=== PATIENT | female | born 1970 | race Hispanic/Latino ===

== ENCOUNTER 2016-07-16 20:53 | Inpatient (IN) | payer MEDICAID ==
[2016-07-16] MEDS ORDERED: Albuterol-Ipratrop 3 mg / 0.5 (3 ml) UD ONE (21:03)
--- NOTE | 2016-07-16 21:05 | ED PDOC ---
Arrival/HPI - General Time Seen by Provider: 07/16/16 20:56 Historian: Patient - History of Present Illness Narrative History of Present Illness (Text): 07/16/16 21:05 Fani Chambers is a 45 year old female, whose past medical history includes asthma and polysubstance abuse, who presents to the ED complaining of progressively worsening shortness of breath since this afternoon. Patient denies any fever, chills, chest pain, nausea, vomiting, diarrhea, urinary symptoms, back pain, neck pain, headache, dizziness, or any other complaints. Time/Duration: Other (today) Symptom Onset: Gradual Symptom Course: Unchanged Activities at Onset: Rest, Light Context: Home Past Medical History - Provider Review Nursing Documentation Reviewed: Yes - Infectious Disease Hx of Infectious Diseases: None - Tetanus Immunization Tetanus Immunization: Unknown - Cardiac Hx Hypertension: Yes - Pulmonary Hx Chronic Obstructive Pulmonary Disease (COPD): Yes - Neurological Hx Neurological Disorder: No - HEENT Hx HEENT Disorder: No - Renal Hx Renal Disorder: No - Endocrine/Metabolic Hx Endocrine Disorders: No - Hematological/Oncological Hx Hepatitis C: Yes - Integumentary Hx Cellulitis: Yes - Musculoskeletal/Rheumatological Hx Falls: Yes - Gastrointestinal Hx Gastrointestinal Disorders: No - Genitourinary/Gynecological Hx Genitourinary Disorders: No - Psychiatric Hx Psychophysiologic Disorder: No Hx Substance Use: Yes - Surgical History Hx Appendectomy: Yes Hx Tonsillectomy: Yes Other/Comment: As per patient, she has had "lung surgery". - Anesthesia Hx Anesthesia: Yes Hx Anesthesia Reactions: No Hx Malignant Hyperthermia: No - Suicidal Assessment Feels Threatened In Home Enviroment: No Family/Social History - Physician Review Nursing Documentation Reviewed: Yes Family/Social History: No Known Family HX Smoking Status: Heavy Smoker > 10 Cigarettes Daily Hx Alcohol Use: Yes Hx Substance Use: Yes Substance used: HEROINE Hx Substance Use Treatment: Yes Allergies/Home Meds Allergies/Adverse Reactions: Allergies No Known Allergies Allergy (Verified 07/16/16 21:05) Home Medications: Home Meds Medication Instructions Recorded Confirmed No Known Home Med 07/16/16 07/16/16 Review of Systems - Physician Review All systems were reviewed & negative as marked: Yes - Review of Systems Constitutional: Normal. absent: Fevers Eyes: Normal ENT: Normal Respiratory: SOB. absent: Cough Cardiovascular: Normal. absent: Chest Pain Gastrointestinal: Normal. absent: Abdominal Pain, Diarrhea, Nausea, Vomiting Genitourinary Female: Normal. absent: Dysuria, Frequency, Hematuria, Urine Output Changes Musculoskeletal: Normal. absent: Back Pain, Neck Pain Skin: Normal. absent: Rash Neurological: Normal. absent: Headache, Dizziness Endocrine: Normal Hemo/Lymphatic: Normal Psychiatric: Normal Physical Exam Vital Signs Reviewed: Yes Vital Signs Temp Pulse Resp BP Pulse Ox 07/17/16 01:18 98.2 F 80 20 126/70 97 07/16/16 22:03 98 F 78 128/70 99 07/16/16 21:24 26 H 07/16/16 21:23 98 F 84 26 H 138/64 99 07/16/16 21:20 84 24 134/67 100 Temperature: Afebrile Blood Pressure: Normal Pulse: Regular Respiratory Rate: Normal Appearance: Positive for: Well-Appearing, Non-Toxic, Comfortable Pain Distress: None Mental Status: Positive for: Alert and Oriented X 3 - Systems Exam Head: Present: Atraumatic, Normocephalic Pupils: Present: PERRL Extroacular Muscles: Present: EOMI Conjunctiva: Present: Normal Mouth: Present: Moist Mucous Membranes Neck: Present: Normal Range of Motion Respiratory/Chest: Present: Wheezes. No: Respiratory Distress, Accessory Muscle Use Cardiovascular: Present: Regular Rate and Rhythm, Normal S1, S2. No: Murmurs Abdomen: Present: Normal Bowel Sounds. No: Tenderness, Distention, Peritoneal Signs Back: Present: Normal Inspection Upper Extremity: Present: Normal Inspection. No: Cyanosis, Edema Lower Extremity: Present: Normal Inspection. No: Edema Neurological: Present: GCS=15, CN II-XII Intact, Speech Normal Skin: Present: Warm, Dry, Normal Color. No: Rashes Psychiatric: Present: Alert, Oriented x 3, Normal Insight, Normal Concentration Medical Decision Making ED Course and Treatment: 07/16/16 21:05 Impression: 45 year old female complaining of shortness of breath since this afternoon. Differential Diagnosis include but are not limited to: asthma exacerbation vs. pneumonia vs. ACS vs. dyspnea Plan: -- EKG -- Labs, cardiac enzymes -- Duoneb -- Solu-medrol -- Reassess and disposition Prior Visits: Notes and results from previous visits were reviewed. On 06/11/2016, pt was seen in the ED for shortness of breath and wheezing. Pt was admitted to the hospital for further evaluation. Progress Notes: 07/16/16 21:40 Reviewed EKG, NSR at 82 bpm. Non-specific T wave changes. 07/16/16 23:45 Pt still wheezing after multiple nebulizer treatments. Paged medical social consultant. 07/16/16 23:47 Case discussed with medical social consultant, who is aware and agrees with plan. 07/16/16 23:[address] Cardoso, who is aware and agrees with plan. Accepts pt in to hospitalist service. Pt will go to Telemetry observation for asthma exacerbation. Pt is no acute distress. Discussed results and hospital observation plan with pt , who is aware and verbalizes understanding. - Lab Interpretations Lab Results: 07/16/16 21:12 07/16/16 21:12 Lab Results 07/16/16 21:12: WBC 10.1 D, RBC 4.11, Hgb 14.9, Hct 42.2, MCV 102.7, MCH 36.3 H , MCHC 35.3, RDW 13.5, Plt Count 307, MPV 9.8, Gran % 52.1, Lymph % (Auto) 37.0 H, Nelson % (Auto) 9.5 H, Eos % (Auto) 1.2 L, Baso % (Auto) 0.2, Gran # 5.26, Lymph # 3.7 H, Nelson # 1.0 H, Eos # 0.1, Baso # 0.02, Sodium 139, Potassium 3.0 L , Chloride 98, Carbon Dioxide 30, Anion Gap 14, BUN 4 L, Creatinine 0.5, Est GFR ( Amer) > 60, Est GFR (Non-Af Amer) > 60, Random Glucose 94, Calcium 8.3 L, Total Bilirubin 0.7, AST 58 H, ALT 51, Alkaline Phosphatase 64, Lactate Dehydrogenase 598, Total Creatine Kinase 64, Troponin I < 0.01, Total Protein 6.7, Albumin 3.5, Globulin 3.2, Albumin/Globulin Ratio 1.1 I have reviewed the lab results: Yes - RAD Interpretation Radiology Orders: 07/17/16 00:15 CHEST PORTABLE [RAD] Stat - Medication Orders Current Medication Orders: Chlordiazepoxide (Librium) 25 mg PO Q8 JACK PRN Reason: Protocol Last Admin: 07/17/16 14:11 Dose: 25 MG Behavioural Document 07/17/16 14:11 (Rec: 07/17/16 14:11 [id number] [id number]) Maintenance Maintenance Dose Yes Nonmedicinal Nonmedicinal Interventions Redirect Re-Assess: Reassess Psych Meds Document 07/17/16 15:11 (Rec: 07/17/16 17:42 [id number]) Reassess Psych Med Effective Folic Acid (Folic Acid) 1 mg IM DAILY JACK Last Admin: 07/17/16 10:37 Dose: Guaifenesin (Robitussin) 100 mg PO Q4H PRN PRN Reason: Cough Azithromycin 250 mg/ Sodium (Chloride) 250 mls @ 167 mls/hr IVPB DAILY JACK PRN Reason: Protocol Last Admin: 07/17/16 09:59 Dose: 167 MLS/HR eMAR Start Stop Document 07/17/16 09:59 (Rec: 07/17/16 09:59 [email or web address] [id number]) Intravenous Solution Start Date 07/17/16 Start Time 09:59 Folic Acid 1 mg/ Thiamine HCl 100 mg/ Multivitamins/Vitamin C 10 ml/ Dextrose 1 ,011.2 mls @ 100 mls/hr IV .Q10H7M JACK Last Admin: 07/17/16 10:34 Dose: 100 MLS/HR eMAR Start Stop Document 07/17/16 10:34 (Rec: 07/17/16 10:34 [email or web address] [id number]) Intravenous Solution Start Date 07/17/16 Start Time 10:34 Lorazepam (Ativan) 2 mg IVP Q6H PRN; Protocol PRN Reason: Anxiety Last Admin: 07/17/16 11:10 Dose: 2 MG Behavioural Document 07/17/16 11:10 (Rec: 07/17/16 11:10 [email or web address] [id number]) Maintenance Maintenance Dose Yes Nonmedicinal Nonmedicinal Interventions Redirect IVP Administration Document 07/17/16 11:10 (Rec: 07/17/16 11:10 [email or web address] [id number]) Charges for Administration # of IVP Administrations 1 Re-Assess: Reassess Psych Meds Document 07/17/16 11:40 (Rec: 07/17/16 13:21 [id number]) Reassess Psych Med Effective Methylprednisolone (Solu-Medrol) 40 mg IVP Q8 [facility] Last Admin: 07/17/16 14:11 Dose: 40 MG IVP Administration Document 07/17/16 14:11 (Rec: 07/17/16 14:11 [facility] [id number][place] Charges for Administration # of IVP Administrations 1 Multivitamins (Thera Tab) 1 tab PO DAILY [facility] Last Admin: 07/17/16 10:03 Dose: 1 TAB Pantoprazole Sodium (Protonix Inj) 40 mg IVP DAILY [facility] Last Admin: 07/17/16 10:03 Dose: 40 MG IVP Administration Document 07/17/16 10:03 (Rec: 07/17/16 10:03 [facility] [id number][place] Charges for Administration # of IVP Administrations 1 Thiamine HCl (Vitamin B1 Tab) 50 mg PO DAILY [facility] Last Admin: 07/17/16 10:37 Dose: 50 MG Discontinued Medications Albuterol/Ipratropium (Duoneb 3 Mg/0.5 Mg (3 Ml) Ud) Confirm Administered Dose 9 ml .ROUTE .STK-MED ONE Stop: 07/16/16 21:04 Last Admin: 07/16/16 21:21 Dose: 9 ML Albuterol/Ipratropium (Duoneb 3 Mg/0.5 Mg (3 Ml) Ud) 3 ml IH Q15M [facility] Last Admin: 07/16/16 22:02 Dose: 3 ML Albuterol/Ipratropium (Duoneb 3 Mg/0.5 Mg (3 Ml) Ud) 3 ml IH Q4 JACK Stop: 07/17/16 12:01 Last Admin: 07/17/16 11:29 Dose: 3 ML Albuterol/Ipratropium (Duoneb 3 Mg/0.5 Mg (3 Ml) Ud) 3 ml IH Q2 PRN PRN Reason: Shortness of Breath Stop: 07/17/16 06:01 Albuterol/Ipratropium (Duoneb 3 Mg/0.5 Mg (3 Ml) Ud) 3 ml IH [id number] [facility] Stop: 07/17/16 19:31 Last Admin: 07/17/16 15:24 Dose: Not Given Non-Admin Reason: Patient Refused Chlordiazepoxide (Librium) 25 mg PO BID JACK PRN Reason: Protocol Methylprednisolone (Solu-Medrol) 125 mg IVP ONCE ONE Stop: 07/16/16 21:17 Last Admin: 07/16/16 21:34 Dose: 125 MG IVP Administration Document 07/16/16 21:34 KENZIE (Rec: 07/16/16 21:34 [id number] [id number]) Charges for Administration # of IVP Administrations 1 Potassium Chloride (K-Dur 20 Meq Er Tab) 40 meq PO STAT STA Stop: 07/17/16 00:14 Last Admin: 07/17/16 00:22 Dose: 40 MEQ - Scribe Statement The provider has reviewed the documentation as recorded by the Jc Rosales Provider Attestation: All medical record entries made by the Jc were at my direction and personally dictated by me. I have reviewed the chart and agree that the record accurately reflects my personal performance of the history, physical exam, medical decision making, and the department course for this patient. I have also personally directed, reviewed, and agree with the discharge instructions and disposition. Disposition/Present on Arrival - Present on Arrival Any Indicators Present on Arrival: No History of DVT/PE: No History of Uncontrolled Diabetes: No Urinary Catheter: No History Surgical Site Infection Following: None - Disposition Have Diagnosis and Disposition been Completed?: Yes Diagnosis: Chronic obstructive lung disease Disposition: HOSPITALIZED Disposition Time: 23:25 Patient Problems: Current Active Problems Problem Status Diagnosed Cirrhosis and chronic liver disease Active Elevated blood pressure reading without diagnosis of hypertension Active Chronic hepatitis C Acute Smoker Chronic Asthmatic bronchitis Resolved Condition: GOOD
[2016-07-16 21:24] LABS: ADD MANUAL DIFF? NO
[2016-07-16 21:32] LABS: BASO # 0.02 K/mm3 (0.0-2.0); BASO % 0.2 % (0.0-3.0); EOS # 0.1 (0.0-0.7); EOS % 1.2 % (1.5-5.0); GRAN # 5.26 (1.4-6.5); GRAN % 52.1 % (50.0-68.0); HEMATOCRIT 42.2 % (36.0-48.0); LYMPH # 3.7 (1.2-3.4); MEAN CELL VOLUME 102.7 fL (80.0-105.0); MEAN CORPUSCULAR HEMOGLOBIN 36.3 pg (25.0-35.0); MEAN CORPUSCULAR HGB CONC 35.3 g/dl (31.0-37.0); MEAN PLATELET VOLUME 9.8 fl (7.0-11.0); MONO % 9.5 % (1.0-6.0); PLATELET COUNT 307 10^3/uL (120.0-450.0); RED CELL DISTRIBUTION WIDTH 13.5 % (11.5-14.5); WHITE BLOOD COUNT 10.1 10^3/ul (4.5-11.0)
[2016-07-16] MEDS: Albuterol-Ipratrop 3 mg / 0.5 (3 ml) UD IH SCH ×2 (21:33→22:02)
[2016-07-16 21:36] LABS: ALB/GLOB RATIO 1.1 (1.1-1.8); ALKALINE PHOSPHATASE 64 U/L (38-133); ALT/SGPT 51 U/L (7-56); AST/SGOT 58 U/L (15-39); BILIRUBIN,TOTAL 0.7 mg/dL (0.2-1.3); BLOOD UREA NITROGEN 4 mg/dL (7-21); CALCIUM 8.3 mg/dL (8.4-10.5); CARBON DIOXIDE 30 mmol/L (21-33); CHLORIDE 98 mmol/L (98-107); GFR AFRICAN-AMERICAN > 60; GLUCOSE,RANDOM 94 mg/dL (70-110); SODIUM 139 mmol/L (132-148); TOTAL PROTEIN 6.7 g/dL (5.8-8.3)
[2016-07-16 21:50] LABS: TROPONIN I < 0.01 ng/mL
[2016-07-17] MEDS ORDERED: Potassium Chloride 20 mEq ER Tab PO STA (00:13)
[2016-07-17 00:33] LABS: VENOUS BLOOD GAS BASE EXCESS 4.9 mmol/L (0.0-2.0); VENOUS BLOOD PH 7.38 (7.32-7.43)
[2016-07-17] MEDS ORDERED: Albuterol-Ipratrop 3 mg / 0.5 (3 ml) UD IH PRN (00:39)
--- NOTE | 2016-07-17 00:48 | CP.PCM.HP ---
<Tony Sales - Last Filed: 07/17/16 00:43> History of Present Illness - History of Present Illness History of Present Illness: This is a 45 yo female with past medical hx of asthma and substance abuse, recently admitted May 2016, presenting with sob x 2 days. Pt states this is her asthma acting up. SOB occurs at rest and with exertion. She can only walk 1/2 block before feeling sob. She has had multiple hospitalizations for asthma in the past year. Denies ever being intubated. She was diagnosed with asthma 16 yrs ago. She also reports cough with white phlegm for 1 week. She denies fevers and chills. She admits chest tightness and reports some swelling in legs. She does not know any triggers for her asthma. Denies recent travel and sick contacts. Denies vomiting, diarrhea, syncope, any other sx. SOB getting worse, she only uses ventolin inhaler. Has been using it constantly throughout the day. She does not see a doctor for asthma. PMH: Asthma, substance abuse, alcoholism PSH: Lung sx, appendectomy, tonsillectomy Allergies: NKDA Home meds: ventolin inhaler FH: DM, lung cancer, heart disease in family Social hx: Current smoker. 1 ppd for 17 yrs. Drinks all day, every day. Drinks 4 [place]. Uses heroin, last use yesterday 1 pack. Past hx of cocaine use. Homeless. Present on Admission - Present on Admission Any Indicators Present on Admission: No History of DVT/PE: No History of Uncontrolled Diabetes: No Urinary Catheter: No Decubitus Ulcer Present: No Review of Systems - Review of Systems All systems: reviewed and no additional remarkable complaints except Review of Systems: Negative except as stated in HPI. Past Patient History - Infectious Disease Hx of Infectious Diseases: None - Tetanus Immunizations Tetanus Immunization: Unknown - Past Medical History & Family History Past Medical History?: Yes Pertinent Family History: Heart disease, lung cancer, dm - Past Social History Smoking Status: Heavy Smoker > 10 Cigarettes Daily Chewing Tobacco Use: No Cigar Use: No Alcohol: > 2 Drinks/Day Drugs: Opiates Home Situation {Lives}: Homeless Domestic Violence: Negative - CARDIAC Hx Hypertension: Yes - PULMONARY Hx Chronic Obstructive Pulmonary Disease (COPD): Yes - NEUROLOGICAL Hx Neurological Disorder: No - HEENT Hx HEENT Problems: No - RENAL Hx Chronic Kidney Disease: No - ENDOCRINE/METABOLIC Hx Endocrine Disorders: No - HEMATOLOGICAL/ONCOLOGICAL Hx Hepatitis C: Yes - INTEGUMENTARY Hx Cellulitis: Yes - MUSCULOSKELETAL/RHEUMATOLOGICAL Hx Falls: Yes - GASTROINTESTINAL Hx Gastrointestinal Disorders: No - GENITOURINARY/GYNECOLOGICAL Hx Genitourinary Disorders: No - PSYCHIATRIC Hx Psychophysiologic Disorder: No Hx Substance Use: Yes - SURGICAL HISTORY Hx Appendectomy: Yes Hx Tonsillectomy: Yes Other/Comment: As per patient, she has had "lung surgery". - ANESTHESIA Hx Anesthesia: Yes Hx Anesthesia Reactions: No Hx Malignant Hyperthermia: No Meds Allergies/Adverse Reactions: Allergies Allergy/AdvReac Type Severity Reaction Status Date / Time No Known Allergies Allergy Verified 07/16/16 21:05 Physical Exam - Constitutional Appears: Non-toxic, No Acute Distress - Head Exam Head Exam: ATRAUMATIC, NORMAL INSPECTION, NORMOCEPHALIC - Eye Exam Eye Exam: EOMI - ENT Exam ENT Exam: Mucous Membranes Moist - Neck Exam Neck exam: Positive for: Normal Inspection - Respiratory Exam Respiratory Exam: Wheezes. absent: Accessory Muscle Use, Clear to Auscultation Bilateral, NORMAL BREATHING PATTERN - Cardiovascular Exam Cardiovascular Exam: REGULAR RHYTHM - GI/Abdominal Exam GI & Abdominal Exam: Normal Bowel Sounds, Soft. absent: Tenderness - Extremities Exam Additional comments: Some minimal swelling in legs B/L - Back Exam Back exam: NORMAL INSPECTION - Neurological Exam Neurological exam: Alert, Oriented x3 - Psychiatric Exam Psychiatric exam: Normal Affect, Normal Mood - Skin Skin Exam: Dry, Intact, Normal Color, Warm Results - Vital Signs Recent Vital Signs: Last Vital Signs Temp 98 F 07/16/16 22:03 Pulse 78 07/16/16 22:03 Resp 26 H 07/16/16 21:24 BP 128/70 07/16/16 22:03 Pulse Ox 99 07/16/16 22:03 - Labs Result Diagrams: 07/16/16 21:12 07/16/16 21:12 Labs: Laboratory Results - last 24 hr 07/16/16 21:12 WBC 10.1 D RBC 4.11 Hgb 14.9 Hct 42.2 MCV 102.7 MCH 36.3 H MCHC 35.3 RDW 13.5 Plt Count 307 MPV 9.8 Gran % 52.1 Lymph % (Auto) 37.0 H [place] % (Auto) 9.5 H Eos % (Auto) 1.2 L Baso % (Auto) 0.2 Gran # 5.26 Lymph # 3.7 H [place] # 1.0 H Eos # 0.1 Baso # 0.02 Sodium 139 Potassium 3.0 L Chloride 98 Carbon Dioxide 30 Anion Gap 14 BUN 4 L Creatinine 0.5 Est GFR ( Amer) > 60 Est GFR (Non-Af Amer) > 60 Random Glucose 94 Calcium 8.3 L Total Bilirubin 0.7 AST 58 H ALT 51 Alkaline Phosphatase 64 Lactate Dehydrogenase 598 Total Creatine Kinase 64 Troponin I < 0.01 Total Protein 6.7 Albumin 3.5 Globulin 3.2 Albumin/Globulin Ratio 1.1 Assessment & Plan - Assessment and Plan (Free Text) Assessment: This is a 45 yo female with past medical hx of asthma and substance abuse and alcoholism presenting with sob secondary to asthma exacerbation, r/o heart failure 1. Asthma exacerbation -duonebs q 4 craig -duonebs q 2 prn -solumedrol 40 q 8 -azithromycin daily -CXR pending -first trop negative, we will trend cardiac enzymes -oxygen by nasal cannula -EKG NSR, repeat ekg in morning -pt does complain of dyspnea on exertion, also heart dx in family, we will order echo -telemetry bed -blood/urine cultures 2. Alcoholism -[facility] protocol -librium bid -MVs, folic acid, thiamine -urine drug screen 3. Elevated liver enzymes -hep panel pending 4. GI/DVT ppx -protonix daily -SCDs dw Dr. Cardoso <Janae CHRISTENSEN,Alfa - Last Filed: 07/18/16 07:50> Results - Vital Signs Recent Vital Signs: Last Vital Signs Temp 97.9 F 07/18/16 06:00 Pulse 83 07/18/16 06:00 Resp 20 07/18/16 06:00 BP 131/72 07/18/16 06:00 Pulse Ox 100 07/18/16 06:00 - Labs Result Diagrams: 07/17/16 07:00 07/17/16 07:00 Labs: Laboratory Results - last 24 hr 07/17/16 07/17/16 07/17/16 07:00 08:14 12:30 WBC 5.2 D RBC 4.09 Hgb 14.6 Hct 42.5 MCV 103.9 MCH 35.7 H MCHC 34.4 RDW 13.6 Plt Count 302 MPV 10.2 Gran % 87.1 H Lymph % (Auto) 11.2 L [place] % (Auto) 1.5 Eos % (Auto) 0.0 L Baso % (Auto) 0.2 Gran # 4.52 Lymph # 0.6 L [place] # 0.1 Eos # 0.0 Baso # 0.01 Sodium 139 Potassium 3.7 Chloride 102 Carbon Dioxide 31 Anion Gap 10 BUN 11 Creatinine 0.6 Est GFR ( Amer) > 60 Est GFR (Non-Af Amer) > 60 Random Glucose 169 H Calcium 8.9 Magnesium 1.7 Total Bilirubin 1.0 AST 47 H ALT 44 Alkaline Phosphatase 64 Troponin I < 0.01 < 0.01 Total Protein 6.6 Albumin 3.5 Globulin 3.2 Albumin/Globulin Ratio 1.1 Attending/Attestation - Attestation I have personally seen and examined this patient.: Yes I have fully participated in the care of the patient.: Yes I have reviewed all pertinent clinical information: Yes Notes (Text): 07/18/16 07:48 -I agree with the above H&P completed by the resident physician. Briefly, the patient is a 45 year old woman with history of polysubstance abuse , chronic ETOH abuse and asthma, who presents with acute asthma exacerbation and acute bronchitis. We will treat with Duo-nebs, IV Solumedrol, IV Azithromycin and O2 via NC.
[2016-07-17 03:29] VITALS: BMI 25.7
[2016-07-17 04:15] LABS: VENOUS BLOOD GAS BASE EXCESS 5.1 mmol/L (0.0-2.0); VENOUS BLOOD PH 7.42 (7.32-7.43)
[2016-07-17] MEDS: Albuterol-Ipratrop 3 mg / 0.5 (3 ml) UD IH SCH ×5 (04:30→21:34)
[2016-07-17] MEDS: MethylPREDNISolone 40 mg Vial IVP SCH ×3 (06:56→21:14)
[2016-07-17 08:06] LABS: ADD MANUAL DIFF? NO
[2016-07-17 08:27] LABS: ALB/GLOB RATIO 1.1 (1.1-1.8); ALKALINE PHOSPHATASE 64 U/L (38-133); ALT/SGPT 44 U/L (7-56); AST/SGOT 47 U/L (15-39); BASO # 0.01 K/mm3 (0.0-2.0); BASO % 0.2 % (0.0-3.0); BLOOD UREA NITROGEN 11 mg/dL (7-21); CALCIUM 8.9 mg/dL (8.4-10.5); CARBON DIOXIDE 31 mmol/L (21-33); CHLORIDE 102 mmol/L (98-107); GFR AFRICAN-AMERICAN > 60; GLUCOSE,RANDOM 169 mg/dL (70-110); GRAN # 4.52 (1.4-6.5); GRAN % 87.1 % (50.0-68.0); HEMATOCRIT 42.5 % (36.0-48.0); LYMPH # 0.6 (1.2-3.4); LYMPH % 11.2 % (22.0-35.0); MEAN CELL VOLUME 103.9 fL (80.0-105.0); MEAN CORPUSCULAR HEMOGLOBIN 35.7 pg (25.0-35.0); MEAN CORPUSCULAR HGB CONC 34.4 g/dl (31.0-37.0); MEAN PLATELET VOLUME 10.2 fl (7.0-11.0); MONO # 0.1 (0.1-0.6); MONO % 1.5 % (1.0-6.0); PLATELET COUNT 302 10^3/uL (120.0-450.0); POTASSIUM 3.7 mmol/L (3.6-5.0); RED CELL DISTRIBUTION WIDTH 13.6 % (11.5-14.5); SODIUM 139 mmol/L (132-148); TOTAL PROTEIN 6.6 g/dL (5.8-8.3); WHITE BLOOD COUNT 5.2 10^3/ul (4.5-11.0)
--- NOTE | 2016-07-17 08:43 | CARD ---
APPROVED REPORT EKG Measurement Heart [id number] <Conclusion> Normal sinus rhythm Nonspecific T wave abnormality Abnormal ECG
[2016-07-17 08:47] LABS: TROPONIN I < 0.01 ng/mL
--- NOTE | 2016-07-17 08:54 | RAD ---
HISTORY: cp COMPARISON: No prior. FINDINGS: LUNGS: No active pulmonary disease. PLEURA: No significant pleural effusion identified, no pneumothorax apparent. CARDIOVASCULAR: Normal. OSSEOUS STRUCTURES: No significant abnormalities. VISUALIZED UPPER ABDOMEN: Normal. OTHER FINDINGS: None. IMPRESSION: No active disease.
[2016-07-17] MEDS: Azithromycin 250 MG in Sodium Chloride 0.9% 250 ML IVPB SCH (09:59)
[2016-07-17] MEDS: Multivitamin Therapeutic Tab PO SCH (10:03)
[2016-07-17] MEDS: Folic Acid 1 MG, Thiamine 100 MG, Multivitamin (MVI) 10 ML in Dextrose 5% In Water 1,00... IV SCH ×2 (10:34→21:14)
[2016-07-18] MEDS: MethylPREDNISolone 40 mg Vial IVP SCH ×2 (07:00→21:57)
[2016-07-18 08:04] LABS: HEMATOCRIT 40.4 % (36.0-48.0); MEAN CELL VOLUME 104.1 fL (80.0-105.0); MEAN CORPUSCULAR HEMOGLOBIN 36.1 pg (25.0-35.0); MEAN CORPUSCULAR HGB CONC 34.7 g/dl (31.0-37.0); MEAN PLATELET VOLUME 10.3 fl (7.0-11.0); RED CELL DISTRIBUTION WIDTH 13.5 % (11.5-14.5); WHITE BLOOD COUNT 17.3 10^3/ul (4.5-11.0)
[2016-07-18 08:21] LABS: ALB/GLOB RATIO 1.1 (1.1-1.8); ALKALINE PHOSPHATASE 58 U/L (38-133); ALT/SGPT 52 U/L (7-56); AST/SGOT 51 U/L (15-39); BILIRUBIN,TOTAL 0.7 mg/dL (0.2-1.3); BLOOD UREA NITROGEN 8 mg/dL (7-21); CALCIUM 8.9 mg/dL (8.4-10.5); CARBON DIOXIDE 30 mmol/L (21-33); CHLORIDE 99 mmol/L (95-110); GFR AFRICAN-AMERICAN > 60; GLUCOSE,RANDOM 145 mg/dL (70-110); MAGNESIUM 1.8 mg/dL (1.7-2.2); POTASSIUM 3.8 mmol/L (3.6-5.0); SODIUM 137 mmol/L (132-148); TOTAL PROTEIN 6.1 g/dL (5.8-8.3)
[2016-07-18] MEDS ORDERED: Thiamine 100 mg/ml Inj ONE (09:25)
[2016-07-18] MEDS: Pantoprazole 40 mg EC Tab PO SCH (09:37)
[2016-07-18] MEDS: Multivitamin Therapeutic Tab PO SCH (09:37)
[2016-07-18] MEDS: Azithromycin 250 MG in Sodium Chloride 0.9% 250 ML IVPB SCH (09:38)
[2016-07-18] MEDS: guaiFENesin 100 mg/5 ml Syrup UD PO PRN ×2 (09:39→20:01)
[2016-07-18] MEDS: Folic Acid 1 MG, Thiamine 100 MG, Multivitamin (MVI) 10 ML in Dextrose 5% In Water 1,00... IV SCH ×2 (12:46→23:44)
[2016-07-18] MEDS ORDERED: Albuterol-Ipratrop 3 mg / 0.5 (3 ml) UD IH PRN (14:31)
--- NOTE | 2016-07-18 16:19 | CP.PCM.PN ---
<Claudia Ferrer - Last Filed: 07/18/16 16:24> Subjective - Date & Time of Evaluation Date of Evaluation: 07/18/16 Time of Evaluation: 09:00 - Subjective Subjective: Hospitalist progress note for Dr. Cardona Pt s/e at bedside this AM. Patient reports that her SOB has improved since admit but still persists mildly. Patient has mild tremor in her extremities and reports a history of alcohol withdrawal but states that she is otherwise stable. Denies fevers, chills, chest pain, nausea, vomiting, or any other symptoms. Patient states that she had been using her inhaler for SOB but that she ran a few days ago, which is when her symptoms began. States that she is homeless and so does not have money to afford an inhaler. Requested nicotine patches. All concerns and complaints were addressed. Objective - Vital Signs/Intake and Output Vital Signs (last 24 hours): Temp Pulse Resp BP Pulse Ox 98.3 F 91 H 19 156/85 H 100 07/18/16 12:00 07/18/16 12:00 07/18/16 12:00 07/18/16 12:00 07/18/16 06:00 Intake and Output: 07/18/16 07/18/16 06:59 18:59 Intake Total 1200 Balance 1200 - Medications Medications: Current Medications Albuterol/Ipratropium (Duoneb 3 Mg/0.5 Mg (3 Ml) Ud) 3 ml IH Q2H PRN PRN Reason: Shortness of Breath Albuterol/Ipratropium (Duoneb 3 Mg/0.5 Mg (3 Ml) Ud) 3 ml IH [id number] CRAIG Chlordiazepoxide (Librium) 25 mg PO Q8 CRAIG PRN Reason: Protocol Last Admin: 07/18/16 16:04 Dose: 25 mg Folic Acid (Folic Acid) 1 mg IM DAILY CRAIG Last Admin: 07/17/16 10:37 Dose: Not Given Guaifenesin (Robitussin) 100 mg PO Q4H PRN PRN Reason: Cough Last Admin: 07/18/16 09:39 Dose: 100 mg Azithromycin 250 mg/ Sodium (Chloride) 250 mls @ 167 mls/hr IVPB DAILY CRAIG PRN Reason: Protocol Last Admin: 07/18/16 09:38 Dose: 167 mls/hr Folic Acid 1 mg/ Thiamine HCl 100 mg/ Multivitamins/Vitamin C 10 ml/ Dextrose 1 ,011.2 mls @ 100 mls/hr IV .Q10H7M [facility] Last Admin: 07/18/16 12:46 Dose: 100 mls/hr Lorazepam (Ativan) 2 mg IVP Q6H PRN; Protocol PRN Reason: Anxiety Last Admin: 07/17/16 11:10 Dose: 2 mg Methylprednisolone (Solu-Medrol) 20 mg IVP Q12 [facility] Multivitamins (Thera Tab) 1 tab PO DAILY [facility] Last Admin: 07/18/16 09:37 Dose: 1 tab Nicotine (Nicoderm Cq) 1 patch TD DAILY [facility] Last Admin: 07/18/16 12:45 Dose: 1 patch Pantoprazole Sodium (Protonix Ec Tab) 40 mg PO ACB [facility] Last Admin: 07/18/16 09:37 Dose: 40 mg Thiamine HCl (Vitamin B1 Tab) 50 mg PO DAILY [facility] Last Admin: 07/18/16 09:38 Dose: 50 mg - Labs Labs: 07/18/16 07:40 07/18/16 07:40 - Constitutional Appears: Non-toxic, No Acute Distress - Head Exam Head Exam: ATRAUMATIC, NORMOCEPHALIC - Eye Exam Eye Exam: Normal appearance. absent: Conjunctival injection, Scleral icterus - ENT Exam ENT Exam: Mucous Membranes Moist, Normal Oropharynx - Respiratory Exam Respiratory Exam: absent: Accessory Muscle Use, Rales, Rhonchi, Respiratory Distress - Cardiovascular Exam Cardiovascular Exam: RRR, +S1, +S2 - GI/Abdominal Exam GI & Abdominal Exam: Soft. absent: Distended, Tenderness - Extremities Exam Extremities Exam: absent: Calf Tenderness, Pedal Edema, Tenderness - Neurological Exam Neurological Exam: Alert, Awake, Oriented x3 - Psychiatric Exam Psychiatric exam: Normal Affect, Normal Mood - Skin Skin Exam: Dry, Intact, Normal Color, Warm Assessment and Plan - Assessment and Plan (Free Text) Assessment: This is a 45 yo female with PMH of asthma, substance abuse, and alcoholism presenting with sob secondary to asthma exacerbation, r/o heart failure 1. Asthma exacerbation vs CHF -duonebs q 4 craig -duonebs q 2 prn -solumedrol 20 BID -azithromycin daily -CXR: NAPD -trops neg x3 -oxygen by nasal cannula -EKG NSR -Echo taken, report pending -WBC increased to 17.3 from 5.2 yesterday--decrease solumedrol to 20BID from 40 Q8 -blood/urine cultures pending 2. Alcoholism -ETOH: 251 -CIWA protocol -librium bid, ativan PRN -MVs, folic acid, thiamine 3. Substance abuse -UDS positive for opiates and benzodiazepines 4. Elevated liver enzymes -Hepatitis C antibody positive -Otherwise negative 4. GI/DVT ppx -protonix daily -SCDs Dispo: Patient is stable, but needs further evaluation and treatment. Will admit to inpatient, transfer to med surg Case management consulted for discharge planning given homeless status <Dulce CHRISTENSEN,Soo - Last Filed: 07/18/16 18:05> Objective - Vital Signs/Intake and Output Vital Signs (last 24 hours): Temp Pulse Resp BP Pulse Ox 98.6 F 86 20 137/94 H 100 07/18/16 17:49 07/18/16 17:49 07/18/16 17:49 07/18/16 17:49 07/18/16 06:00 Intake and Output: 07/18/16 07/18/16 06:59 18:59 Intake Total 1200 Balance 1200 - Medications Medications: Current Medications Albuterol/Ipratropium (Duoneb 3 Mg/0.5 Mg (3 Ml) Ud) 3 ml IH Q2H PRN PRN Reason: Shortness of Breath Albuterol/Ipratropium (Duoneb 3 Mg/0.5 Mg (3 Ml) Ud) 3 ml IH [id number] CRAIG Chlordiazepoxide (Librium) 25 mg PO Q8 CRAIG PRN Reason: Protocol Last Admin: 07/18/16 16:04 Dose: 25 mg Folic Acid (Folic Acid) 1 mg IM DAILY CRAIG Last Admin: 07/18/16 17:56 Dose: Not Given Guaifenesin (Robitussin) 100 mg PO Q4H PRN PRN Reason: Cough Last Admin: 07/18/16 09:39 Dose: 100 mg Azithromycin 250 mg/ Sodium (Chloride) 250 mls @ 167 mls/hr IVPB DAILY CRAIG PRN Reason: Protocol Last Admin: 07/18/16 09:38 Dose: 167 mls/hr Folic Acid 1 mg/ Thiamine HCl 100 mg/ Multivitamins/Vitamin C 10 ml/ Dextrose 1 ,011.2 mls @ 100 mls/hr IV .Q10H7M [facility] Last Admin: 07/18/16 12:46 Dose: 100 mls/hr Lorazepam (Ativan) 2 mg IVP Q6H PRN; Protocol PRN Reason: Anxiety Last Admin: 07/17/16 11:10 Dose: 2 mg Methylprednisolone (Solu-Medrol) 20 mg IVP Q12 [facility] Multivitamins (Thera Tab) 1 tab PO DAILY [facility] Last Admin: 07/18/16 09:37 Dose: 1 tab Nicotine (Nicoderm Cq) 1 patch TD DAILY [facility] Last Admin: 07/18/16 12:45 Dose: 1 patch Pantoprazole Sodium (Protonix Ec Tab) 40 mg PO ACB [facility] Last Admin: 07/18/16 09:37 Dose: 40 mg Thiamine HCl (Vitamin B1 Tab) 50 mg PO DAILY [facility] Last Admin: 07/18/16 09:38 Dose: 50 mg - Labs Labs: 07/18/16 07:40 07/18/16 07:40 Attending/Attestation - Attestation I have personally seen and examined this patient.: Yes I have fully participated in the care of the patient.: Yes I have reviewed all pertinent clinical information, including history, physical exam and plan: Yes Notes (Text): Patient was seen and examined with medical records coder .Agreed with resident assessment and plan. Patient wheezing , cough and dyspnea is improving, we will decrease dose of methylprednisolon to 20 mg BID. Leukocytosis is due to steroid, Patient is afebrile, does not look toxic The issue of chronic smoking, ongoing drug abuse was discussed in detail with patient. Management plan was discussed in detail with patient Education was provided.
--- NOTE | 2016-07-18 18:25 | CARD ---
APPROVED REPORT EXAM: Two-dimensional and M-mode echocardiogram with Doppler and color Doppler. INDICATION Dyspnea 2D DIMENSIONS Left Atrium (2D)4.1 (1.6-4.0cm)IVSd0.9 (0.7-1.1cm) LVDd4.3 (3.9-5.9cm)PWd1.0 (0.7-1.1cm) LVDs3.1 (2.5-4.0cm)FS (%) 27.8 % LVEF (%)54.3 (>50%) M-Mode DIMENSIONS Aortic Root3.00 (2.2-3.7cm)Aortic Cusp Exc.1.90 (1.5-2.0cm) Aortic Valve AoV Peak Lphqkbaa557.0cm/Vanesa Peak GR.10mmHg Mitral Valve MV E Ydxlenjy34.9cm/sMV A Ioijvfll27.0cm/sE/A ratio1.1 TDI Lateral E' Peak V11.10cm/sMedial E' Peak V10.00cm/sE/Lateral E'7.6 E/Medial E'8.4 Pulmonary Valve PV Peak Wxbbpiby90.6cm/sPV Peak Grad.2mmHg Tricuspid Valve TR Peak Eroozksq126nz/sRAP [id number] Peak Gr.24mmHg [id number] LEFT VENTRICLE The left ventricle is normal size. There is normal left ventricular wall thickness. The left ventricular function is normal. The left ventricular ejection fraction is within the normal range. There is normal LV segmental wall motion. Transmitral Doppler flow pattern is Grade I-abnormal relaxation pattern. RIGHT VENTRICLE The right ventricle is normal size. There is normal right ventricular wall thickness. The right ventricular systolic function is normal. ATRIA The left atrium size is normal. The right atrium size is normal. AORTIC VALVE The aortic valve is not well visualized. MITRAL VALVE The mitral valve is mildly thickened. Mitral regurgitation is mild. TRICUSPID VALVE There is mild pulmonary hypertension. GREAT VESSELS The aortic root is normal in size. The IVC is normal in size and collapses >50% with inspiration. PERICARDIAL EFFUSION There is a trace loculated anterior pericardial effusion. <Conclusion> The left ventricle is normal size. There is normal left ventricular wall thickness. The left ventricular function is normal. The left ventricular ejection fraction is within the normal range. There is normal LV segmental wall motion. Transmitral Doppler flow pattern is Grade I-abnormal relaxation pattern. Mitral regurgitation is mild. There is mild pulmonary hypertension.
[2016-07-18] MEDS: Albuterol-Ipratrop 3 mg / 0.5 (3 ml) UD IH SCH (20:50)
[2016-07-19] MEDS: Albuterol-Ipratrop 3 mg / 0.5 (3 ml) UD IH SCH ×2 (01:34→07:49)
[2016-07-19] MEDS: Folic Acid 1 MG, Thiamine 100 MG, Multivitamin (MVI) 10 ML in Dextrose 5% In Water 1,00... IV SCH (04:13)
[2016-07-19 08:14] LABS: BASO # 0.01 K/mm3 (0.0-2.0); BASO % 0.1 % (0.0-3.0); GRAN # 10.43 (1.4-6.5); GRAN % 81.5 % (50.0-68.0); HEMATOCRIT 42.6 % (36.0-48.0); LYMPH # 1.5 (1.2-3.4); LYMPH % 11.8 % (22.0-35.0); MEAN CELL VOLUME 105.4 fL (80.0-105.0); MEAN CORPUSCULAR HEMOGLOBIN 35.4 pg (25.0-35.0); MEAN CORPUSCULAR HGB CONC 33.6 g/dl (31.0-37.0); MEAN PLATELET VOLUME 10.2 fl (7.0-11.0); MONO # 0.9 (0.1-0.6); MONO % 6.6 % (1.0-6.0); PLATELET COUNT 283 10^3/uL (120.0-450.0); RED CELL DISTRIBUTION WIDTH 13.7 % (11.5-14.5); WHITE BLOOD COUNT 12.8 10^3/ul (4.5-11.0)
[2016-07-19 08:19] LABS: ADD MANUAL DIFF? NO
[2016-07-19 08:29] LABS: ALB/GLOB RATIO 1.1 (1.1-1.8); ALKALINE PHOSPHATASE 56 U/L (38-133); ALT/SGPT 79 U/L (7-56); AST/SGOT 52 U/L (15-39); BILIRUBIN,TOTAL 0.5 mg/dL (0.2-1.3); BLOOD UREA NITROGEN 11 mg/dL (7-21); CALCIUM 8.6 mg/dL (8.4-10.5); CARBON DIOXIDE 34 mmol/L (21-33); CHLORIDE 97 mmol/L (95-110); GFR AFRICAN-AMERICAN > 60; GLUCOSE,RANDOM 129 mg/dL (70-110); POTASSIUM 4.2 mmol/L (3.6-5.0); SODIUM 138 mmol/L (132-148); TOTAL PROTEIN 6.4 g/dL (5.8-8.3)
[2016-07-19 09:14] VITALS: BP 146/99; PULSE 73; RESP 18; TEMP 97.9; O2SAT 98
[2016-07-19] MEDS: Pantoprazole 40 mg EC Tab PO SCH (10:45)
[2016-07-19] MEDS: Multivitamin Therapeutic Tab PO SCH (10:45)
[2016-07-19] MEDS: MethylPREDNISolone 40 mg Vial IVP SCH (10:45)
[2016-07-19] MEDS: Azithromycin 250 MG in Sodium Chloride 0.9% 250 ML IVPB SCH (10:46)
--- NOTE | 2016-07-19 12:56 | CP.PCM.DIS ---
<RodolfoKalpana - Last Filed: 07/19/16 13:05> Provider - Provider Date of Admission: 07/18/16 14:28 Attending physician: Soo Cardona MD Primary care physician: NO PRIMARY CARE PROVIDER Time Spent in preparation of Discharge (in minutes): 45 Hospital Course - Lab Results Lab Results: Most Recent Lab Values WBC 12.8 10^3/ul (4.5-11.0) H D 07/19/16 08:00 RBC 4.04 10^6/uL (3.5-6.1) 07/19/16 08:00 Hgb 14.3 gm/dL (12.0-16.0) 07/19/16 08:00 Hct 42.6 % (36.0-48.0) 07/19/16 08:00 MCV 105.4 fL (80.0-105.0) H 07/19/16 08:00 MCH 35.4 pg (25.0-35.0) H 07/19/16 08:00 MCHC 33.6 g/dl (31.0-37.0) 07/19/16 08:00 RDW 13.7 % (11.5-14.5) 07/19/16 08:00 Plt Count 283 10^3/uL (120.0-450.0) 07/19/16 08:00 MPV 10.2 fl (7.0-11.0) 07/19/16 08:00 Gran % 81.5 % (50.0-68.0) H 07/19/16 08:00 Lymph % (Auto) 11.8 % (22.0-35.0) L 07/19/16 08:00 Allen % (Auto) 6.6 % (1.0-6.0) H 07/19/16 08:00 Eos % (Auto) 0.0 % (1.5-5.0) L 07/19/16 08:00 Baso % (Auto) 0.1 % (0.0-3.0) 07/19/16 08:00 Gran # 10.43 (1.4-6.5) H 07/19/16 08:00 Lymph # 1.5 (1.2-3.4) 07/19/16 08:00 Allen # 0.9 (0.1-0.6) H 07/19/16 08:00 Eos # 0.0 (0.0-0.7) 07/19/16 08:00 Baso # 0.01 K/mm3 (0.0-2.0) 07/19/16 08:00 pO2 100 mm/Hg (30-55) H 07/17/16 04:00 VBG pH 7.42 (7.32-7.43) 07/17/16 04:00 VBG pCO2 47.0 (40-60) 07/17/16 04:00 VBG HCO3 30.5 mmol/l (21-28) H 07/17/16 04:00 VBG Total CO2 31.9 mmol.L (22-28) H 07/17/16 04:00 VBG O2 Sat (Calc) 98.7 % (40-65) H 07/17/16 04:00 VBG Base Excess 5.1 mmol/L (0.0-2.0) H 07/17/16 04:00 VBG Potassium 3.8 mmol/L (3.6-5.2) 07/17/16 04:00 Sodium 140.0 mmol/L (132-148) 07/17/16 04:00 Chloride 104.0 mmol/L (98-107) 07/17/16 04:00 Glucose 234 mg/dl (65-105) H 07/17/16 04:00 Lactate 2.1 mmol/L (0.7-2.1) 07/17/16 04:00 FiO2 21.0 % 07/17/16 04:00 Sodium 138 mmol/L (132-148) 07/19/16 08:00 Potassium 4.2 mmol/L (3.6-5.0) 07/19/16 08:00 Chloride 97 mmol/L (95-110) 07/19/16 08:00 Carbon Dioxide 34 mmol/L (21-33) H 07/19/16 08:00 Anion Gap 11 (10-20) 07/19/16 08:00 BUN 11 mg/dL (7-21) 07/19/16 08:00 Creatinine 0.6 mg/dL (0.5-1.4) 07/19/16 08:00 Est GFR ( Amer) > 60 07/19/16 08:00 Est GFR (Non-Af Amer) > 60 07/19/16 08:00 Random Glucose 129 mg/dL (70-110) H 07/19/16 08:00 Calcium 8.6 mg/dL (8.4-10.5) 07/19/16 08:00 Magnesium 1.8 mg/dL (1.7-2.2) 07/18/16 07:40 Total Bilirubin 0.5 mg/dL (0.2-1.3) 07/19/16 08:00 AST 52 U/L (15-39) H 07/19/16 08:00 ALT 79 U/L (7-56) H 07/19/16 08:00 Alkaline Phosphatase 56 U/L (38-133) 07/19/16 08:00 Lactate Dehydrogenase 598 U/L (333-699) 07/16/16 21:12 Total Creatine Kinase 64 U/L (35-230) 07/16/16 21:12 Troponin I < 0.01 ng/mL 07/17/16 12:30 Total Protein 6.4 g/dL (5.8-8.3) 07/19/16 08:00 Albumin 3.4 g/dL (3.0-4.8) 07/19/16 08:00 Globulin 3.0 gm/dL 07/19/16 08:00 Albumin/Globulin Ratio 1.1 (1.1-1.8) 07/19/16 08:00 Venous Blood Potassium 3.8 mmol/L (3.6-5.2) 07/17/16 04:00 Urine Opiates Screen Positive (NEGATIVE) H 07/17/16 00:31 Urine Methadone Screen Negative (NEGATIVE) 07/17/16 00:31 Ur Barbiturates Screen Negative (NEGATIVE) 07/17/16 00:31 Ur Phencyclidine Scrn Negative (NEGATIVE) 07/17/16 00:31 Ur Amphetamines Screen Negative (NEGATIVE) 07/17/16 00:31 U Benzodiazepines Scrn Positive (NEGATIVE) H 07/17/16 00:31 U Oth Cocaine Metabols Negative (NEGATIVE) 07/17/16 00:31 U Cannabinoids Screen Negative (NEGATIVE) 07/17/16 00:31 Alcohol, Quantitative 251 mg/dL (0-10) H 07/17/16 00:22 Hepatitis A IgM Ab Negative (NEGATIVE) 07/17/16 04:00 Hep Bs Antigen Negative (NEGATIVE) 07/17/16 04:00 Hep B Core IgM Ab Negative (NEGATIVE) 07/17/16 04:00 Hepatitis C Antibody Reactive (NEGATIVE) H 07/17/16 04:00 - Hospital Course Hospital Course: Hospitalist note for Dr. Cardona This is a 45 yo female with past medical hx of asthma and substance abuse, recently admitted May 2016, presenting with sob x 2 days. Pt states this is her asthma acting up. SOB occurs at rest and with exertion. She can only walk 1/2 block before feeling sob. She has had multiple hospitalizations for asthma in the past year. Denies ever being intubated. She was diagnosed with asthma 16 yrs ago. She also reports cough with white phlegm for 1 week. She denies fevers and chills. She admits chest tightness and reports some swelling in legs. She does not know any triggers for her asthma. Denies recent travel and sick contacts. Denies vomiting, diarrhea, syncope, any other sx. SOB getting worse, she only uses ventolin inhaler. Has been using it constantly throughout the day. She does not see a doctor for asthma. While at the hospital patient reports that her SOB has improved since admit but still persists mildly. Patient has mild tremor in her extremities and reports a history of alcohol withdrawal but states that she is otherwise stable. Denies fevers, chills, chest pain, nausea, vomiting, or any other symptoms. Patient states that she had been using her inhaler for SOB but that she ran a few days ago, which is when her symptoms began. States that she is homeless and so does not have money to afford an inhaler. Requested nicotine patches. All concerns and complaints were addressed. Pt was treated with ABX, steroids and ativan, multivitamin. Her WBC was normalized. Echo was normal. Pt wishes to go gome. Pt is sent home with Inhalers, steroid PO and Robutussin. Pt as cleared to go home. Given instructions and understood. PMH: Asthma, substance abuse, alcoholism PSH: Lung sx, appendectomy, tonsillectomy Allergies: NKDA Home meds: ventolin inhaler FH: DM, lung cancer, heart disease in family Social hx: Current smoker. 1 ppd for 17 yrs. Drinks all day, every day. Drinks 4 [place]. Uses heroin, last use yesterday 1 pack. Past hx of cocaine use. Homeless. Discharge Exam - Head Exam Head Exam: ATRAUMATIC, NORMOCEPHALIC - Eye Exam Eye Exam: EOMI, Normal appearance, PERRL Pupil Exam: NORMAL ACCOMODATION, PERRL - ENT Exam ENT Exam: Mucous Membranes Moist - Respiratory Exam Respiratory Exam: Clear to PA & Lateral, NORMAL BREATHING PATTERN, UNREMARKABLE - Cardiovascular Exam Cardiovascular Exam: REGULAR RHYTHM, +S1, +S2 - GI/Abdominal Exam GI & Abdominal Exam: Normal Bowel Sounds. absent: Distended, Firm, Guarding, Hernia - Rectal Exam Rectal Exam: NORMAL INSPECTION - Exam Exam: NORMAL INSPECTION - Extremities Exam Extremities exam: full ROM - Neurological Exam Neurological exam: Alert, CN II-XII Intact, Normal Gait, Oriented x3, Reflexes Normal - Psychiatric Exam Psychiatric exam: Normal Affect, Normal Mood - Skin Skin Exam: Dry, Intact, Normal Color, Warm Discharge Plan - Discharge Medications Prescriptions: Albuterol 0.042% [Albuterol 0.042% Inhal Yue (1.25mg/3ml) UD] 3 ml IH Q8 #1 yue Prednisolone [Millipred] 5 mg PO DAILY #30 tablet Budesonide [Pulmicort] 1 mg IH BID #1 ampul.neb Dextromethorphan HBr [Robitussin] 15 mg PO DAILY #7 capsule - Follow Up Plan Condition: GOOD Disposition: HOME/ ROUTINE Patient education suggested?: Yes Instructions: Asthma (DC), How to Stop Smoking (DC), Pneumococcal Vaccine for Adults (DC), Cigarette Smoking and Your Health (GEN), Abuse of Alcohol (DC) Additional Instructions: Inhale Albuterol 2 puff every 8 hours as needed. Inhale Pulmicort 2 puff twice a day as needed Take predisolone PO 40 mg daily for 3days, 20mg for 3 days, 10mg for 3 days, 5mg for 3 days. Take Robutussin as needed for cough. F/U with Primary care doctor at [facility] for refill Referrals: PCP,NO [Primary Care Provider] - Clinic,Med Surg [Non-Staff] - <Soo Cardona MD - Last Filed: 07/19/16 15:34> Provider - Provider Date of Admission: 07/18/16 14:28 Attending physician: Soo Cardona MD Primary care physician: NO PRIMARY CARE PROVIDER Hospital Course - Lab Results Lab Results: Most Recent Lab Values WBC 12.8 10^3/ul (4.5-11.0) H D 07/19/16 08:00 RBC 4.04 10^6/uL (3.5-6.1) 07/19/16 08:00 Hgb 14.3 gm/dL (12.0-16.0) 07/19/16 08:00 Hct 42.6 % (36.0-48.0) 07/19/16 08:00 MCV 105.4 fL (80.0-105.0) H 07/19/16 08:00 MCH 35.4 pg (25.0-35.0) H 07/19/16 08:00 MCHC 33.6 g/dl (31.0-37.0) 07/19/16 08:00 RDW 13.7 % (11.5-14.5) 07/19/16 08:00 Plt Count 283 10^3/uL (120.0-450.0) 07/19/16 08:00 MPV 10.2 fl (7.0-11.0) 07/19/16 08:00 Gran % 81.5 % (50.0-68.0) H 07/19/16 08:00 Lymph % (Auto) 11.8 % (22.0-35.0) L 07/19/16 08:00 Allen % (Auto) 6.6 % (1.0-6.0) H 07/19/16 08:00 Eos % (Auto) 0.0 % (1.5-5.0) L 07/19/16 08:00 Baso % (Auto) 0.1 % (0.0-3.0) 07/19/16 08:00 Gran # 10.43 (1.4-6.5) H 07/19/16 08:00 Lymph # 1.5 (1.2-3.4) 07/19/16 08:00 Allen # 0.9 (0.1-0.6) H 07/19/16 08:00 Eos # 0.0 (0.0-0.7) 07/19/16 08:00 Baso # 0.01 K/mm3 (0.0-2.0) 07/19/16 08:00 pO2 100 mm/Hg (30-55) H 07/17/16 04:00 VBG pH 7.42 (7.32-7.43) 07/17/16 04:00 VBG pCO2 47.0 (40-60) 07/17/16 04:00 VBG HCO3 30.5 mmol/l (21-28) H 07/17/16 04:00 VBG Total CO2 31.9 mmol.L (22-28) H 07/17/16 04:00 VBG O2 Sat (Calc) 98.7 % (40-65) H 07/17/16 04:00 VBG Base Excess 5.1 mmol/L (0.0-2.0) H 07/17/16 04:00 VBG Potassium 3.8 mmol/L (3.6-5.2) 07/17/16 04:00 Sodium 140.0 mmol/L (132-148) 07/17/16 04:00 Chloride 104.0 mmol/L (98-107) 07/17/16 04:00 Glucose 234 mg/dl (65-105) H 07/17/16 04:00 Lactate 2.1 mmol/L (0.7-2.1) 07/17/16 04:00 FiO2 21.0 % 07/17/16 04:00 Sodium 138 mmol/L (132-148) 07/19/16 08:00 Potassium 4.2 mmol/L (3.6-5.0) 07/19/16 08:00 Chloride 97 mmol/L (95-110) 07/19/16 08:00 Carbon Dioxide 34 mmol/L (21-33) H 07/19/16 08:00 Anion Gap 11 (10-20) 07/19/16 08:00 BUN 11 mg/dL (7-21) 07/19/16 08:00 Creatinine 0.6 mg/dL (0.5-1.4) 07/19/16 08:00 Est GFR ( Amer) > 60 07/19/16 08:00 Est GFR (Non-Af Amer) > 60 07/19/16 08:00 Random Glucose 129 mg/dL (70-110) H 07/19/16 08:00 Calcium 8.6 mg/dL (8.4-10.5) 07/19/16 08:00 Magnesium 1.8 mg/dL (1.7-2.2) 07/18/16 07:40 Total Bilirubin 0.5 mg/dL (0.2-1.3) 07/19/16 08:00 AST 52 U/L (15-39) H 07/19/16 08:00 ALT 79 U/L (7-56) H 07/19/16 08:00 Alkaline Phosphatase 56 U/L (38-133) 07/19/16 08:00 Lactate Dehydrogenase 598 U/L (333-699) 07/16/16 21:12 Total Creatine Kinase 64 U/L (35-230) 07/16/16 21:12 Troponin I < 0.01 ng/mL 07/17/16 12:30 Total Protein 6.4 g/dL (5.8-8.3) 07/19/16 08:00 Albumin 3.4 g/dL (3.0-4.8) 07/19/16 08:00 Globulin 3.0 gm/dL 07/19/16 08:00 Albumin/Globulin Ratio 1.1 (1.1-1.8) 07/19/16 08:00 Venous Blood Potassium 3.8 mmol/L (3.6-5.2) 07/17/16 04:00 Urine Opiates Screen Positive (NEGATIVE) H 07/17/16 00:31 Urine Methadone Screen Negative (NEGATIVE) 07/17/16 00:31 Ur Barbiturates Screen Negative (NEGATIVE) 07/17/16 00:31 Ur Phencyclidine Scrn Negative (NEGATIVE) 07/17/16 00:31 Ur Amphetamines Screen Negative (NEGATIVE) 07/17/16 00:31 U Benzodiazepines Scrn Positive (NEGATIVE) H 07/17/16 00:31 U Oth Cocaine Metabols Negative (NEGATIVE) 07/17/16 00:31 U Cannabinoids Screen Negative (NEGATIVE) 07/17/16 00:31 Alcohol, Quantitative 251 mg/dL (0-10) H 07/17/16 00:22 Hepatitis A IgM Ab Negative (NEGATIVE) 07/17/16 04:00 Hep Bs Antigen Negative (NEGATIVE) 07/17/16 04:00 Hep B Core IgM Ab Negative (NEGATIVE) 07/17/16 04:00 Hepatitis C Antibody Reactive (NEGATIVE) H 07/17/16 04:00 Attending/Attestation - Attestation I have personally seen and examined this patient.: Yes I have fully participated in the care of the patient.: Yes I have reviewed all pertinent clinical information, including history, physical exam and plan: Yes Notes (Text): Patient was seen and examined with medical library assistant .Agreed with resident assessment and plan. 45 F with PMH of Asthma, chronic smoking, alcohol abuse , hepatitic C, non compliance, multiple admission to the hospital for asthma exacerbation due to non compliance and ongoing smoking and alcohol abuse was admitted with worseing dyspnea due to asthma exacerbation, feeling better, wheezing has improved, does not want to stay in the hospital, will switch to oral prednisone , albuterol and steroid inhaler. No sign of alcohol withdrawal at the time of discharge. Issue of ongoing smoking and alcohol abuse was discussed in detail with patient. The risk of readmission is gigh due to non compliance and ongoing alcohol abuse. Management plan was discussed in detail with patient Education was provided.
== END 2016-07-19 14:34 | disposition home or self-care (01) | DRG 96 ==
LOC: ED 20:53 → ERH 07-17 00:20 → 2RSO 07-17 02:49 → OBSVTOIN 07-18 14:28 → 5RSO 07-18 18:55
PROVIDERS: ADMIT Hospitalist; ATTEND Internal Medicine
DX: J45.901 Unspecified asthma with (acute) exacerbation (principal); B18.2 Chronic viral hepatitis C; K74.60 Unspecified cirrhosis of liver; J44.0 Chronic obstructive pulmonary disease with (acute) lower respiratory infection; F11.90 Opioid use, unspecified, uncomplicated; J44.9 Chronic obstructive pulmonary disease, unspecified; I10 Essential (primary) hypertension; F17.200 Nicotine dependence, unspecified, uncomplicated; D72.829 Elevated white blood cell count, unspecified; T38.0X5A Adverse effect of glucocorticoids and synthetic analogues, initial encounter; F10.20 Alcohol dependence, uncomplicated; Y90.8 Blood alcohol level of 240 mg/100 ml or more; Z59.0 Homelessness; Z87.898 Personal history of other specified conditions; Z91.19 Patient's noncompliance with other medical treatment and regimen; Z90.49 Acquired absence of other specified parts of digestive tract; Z83.3 Family history of diabetes mellitus; Z82.49 Family history of ischemic heart disease and other diseases of the circulatory system; Z80.1 Family history of malignant neoplasm of trachea, bronchus and lung; R79.89 Other specified abnormal findings of blood chemistry; J20.9 Acute bronchitis, unspecified; R25.1 Tremor, unspecified

== ENCOUNTER 2016-07-25 15:35 | Inpatient (IN) | payer MEDICAID ==
--- NOTE | 2016-07-25 15:54 | ED PDOC ---
Arrival/HPI - General Time Seen by Provider: 07/25/16 15:42 Historian: Patient - History of Present Illness Narrative History of Present Illness (Text): 07/25/16 15:42 A 45 year old homeless female, whose past medical history includes alcohol abuse , presents to the emergency department complaining of asthma exacerbation. Patient reports she was discharged from the hospital 2 days ago, after which her symptoms began. She notes some shortness of breath with a productive cough. She states he sputum in yellow in color. She denies any fever, chest pain, or other complaints at this time. PMD: None Time/Duration: Other (2 days) Symptom Onset: Sudden Symptom Course: Unchanged Quality: Other Activities at Onset: Rest Context: Home Past Medical History - Provider Review Nursing Documentation Reviewed: Yes - Infectious Disease Hx of Infectious Diseases: None - Tetanus Immunization Tetanus Immunization: Unknown - Cardiac Hx Hypertension: Yes - Pulmonary Hx Chronic Obstructive Pulmonary Disease (COPD): Yes - Neurological Hx Neurological Disorder: No - HEENT Hx HEENT Disorder: No - Renal Hx Renal Disorder: No - Endocrine/Metabolic Hx Endocrine Disorders: No - Hematological/Oncological Hx Hepatitis C: Yes - Integumentary Hx Cellulitis: Yes - Musculoskeletal/Rheumatological Hx Falls: Yes - Gastrointestinal Hx Gastrointestinal Disorders: No - Genitourinary/Gynecological Hx Genitourinary Disorders: No - Psychiatric Hx Psychophysiologic Disorder: No Hx Substance Use: Yes - Surgical History Hx Appendectomy: Yes Hx Tonsillectomy: Yes Other/Comment: As per patient, she has had "lung surgery". - Anesthesia Hx Anesthesia: Yes Hx Anesthesia Reactions: No Hx Malignant Hyperthermia: No - Suicidal Assessment Feels Threatened In Home Enviroment: No Family/Social History - Physician Review Nursing Documentation Reviewed: Yes Family/Social History: Unknown Family HX Smoking Status: Heavy Smoker > 10 Cigarettes Daily Hx Alcohol Use: Yes Hx Substance Use: Yes Substance used: HEROINE Hx Substance Use Treatment: Yes Allergies/Home Meds Allergies/Adverse Reactions: Allergies No Known Allergies Allergy (Verified 07/16/16 21:05) Review of Systems - Physician Review All systems were reviewed & negative as marked: Yes - Review of Systems Constitutional: absent: Fevers Respiratory: SOB, Cough, Sputum Cardiovascular: absent: Chest Pain Physical Exam Vital Signs Reviewed: Yes Vital Signs Temp Pulse Resp BP Pulse Ox 07/25/16 18:46 98.7 F 108 H 20 112/62 96 07/25/16 16:23 98.9 F 109 H 24 105/66 95 07/25/16 16:18 107 H 110/77 95 Temperature: Afebrile Blood Pressure: Normal Pulse: Tachycardic Respiratory Rate: Normal Appearance: Positive for: Well-Appearing, Non-Toxic, Comfortable Pain Distress: None Mental Status: Positive for: Alert and Oriented X 3 - Systems Exam Head: Present: Atraumatic, Normocephalic Pupils: Present: PERRL Extroacular Muscles: Present: EOMI Conjunctiva: Present: Normal Mouth: Present: Moist Mucous Membranes Neck: Present: Normal Range of Motion Respiratory/Chest: Present: Wheezes (diffuse), Decreased Breath Sounds ( bilateral). No: Respiratory Distress, Accessory Muscle Use, Rales, Rhonchi Cardiovascular: Present: Regular Rate and Rhythm, Normal S1, S2. No: Murmurs Abdomen: Present: Normal Bowel Sounds. No: Tenderness, Distention, Peritoneal Signs Back: Present: Normal Inspection Upper Extremity: Present: Normal Inspection. No: Cyanosis, Edema Lower Extremity: Present: Normal Inspection. No: Edema Neurological: Present: GCS=15, CN II-XII Intact, Speech Normal Skin: Present: Warm, Dry, Normal Color. No: Rashes Psychiatric: Present: Alert, Oriented x 3, Normal Insight, Normal Concentration Medical Decision Making ED Course and Treatment: 07/25/16 15:42 Impression: A 45 year old female with shortness of breath. Differential Diagnosis include but are not limited to: asthma exacerbation Plan: -- EKG -- Chest X-ray -- Labs -- Urinalysis -- Influenza A/B -- Duoneb and Solu-Medrol -- Reassess and disposition Prior Visits: Notes and results from previous visits were reviewed. The patient last presented to the emergency department on 07/16/16 for evaluation of shortness of breath. Patient was then hospitalized for COPD. Progress Notes: 07/25/16 16:04 EKG: Ordered, reviewed, and independently interpreted the EKG. Rate : 104 BPM Rhythm : Sinus tachycardia - Lab Interpretations Lab Results: 07/25/16 16:00 07/25/16 16:00 Lab Results 07/25/16 16:35: Urine Color Yellow, Urine Appearance Clear, Urine pH 6.5, Ur Specific [place] <= 1.005, Urine Protein Negative, Urine Glucose (UA) Negative, Urine Ketones Negative, Urine Blood Negative, Urine Nitrate Negative, Urine Bilirubin Negative, Urine Urobilinogen 1.0 H, Ur Leukocyte Esterase Trace H, Urine RBC Negative, Urine WBC 1 - 3, Ur Epithelial Cells 6 - 8, Urine Bacteria Small, Urine Other Trichomonas, Urine HCG, Qual Negative 07/25/16 16:30: Influenza Typ A,B (EIA) Negative for flu a/b 07/25/16 16:00: WBC 11.9 H, RBC 4.29, Hgb 15.6, Hct 44.8, MCV 104.4, MCH 36.4 H , MCHC 34.8, RDW 13.6, Plt Count 371, MPV 9.9, Gran % 56.0, Lymph % (Auto) 31.9 , [place] % (Auto) 10.4 H, Eos % (Auto) 1.4 L, Baso % (Auto) 0.3, Gran # 6.65 H, Lymph # 3.8 H, [place] # 1.2 H, Eos # 0.2, Baso # 0.03, PT 10.1, INR 0.94, APTT 24.2, Sodium 142, Potassium 3.1 L, Chloride 99, Carbon Dioxide 30, Anion Gap 16 , BUN 6 L, Creatinine 0.6, Est GFR ( Amer) > 60, Est GFR (Non-Af Amer) > 60, Random Glucose 119 H, Calcium 8.3 L, Magnesium 2.0, Total Bilirubin 0.6, AST 61 H, ALT 80 H, Alkaline Phosphatase 93, Lactate Dehydrogenase 609, Total Creatine Kinase 36, Troponin I < 0.01, Total Protein 6.6, Albumin 3.4, Globulin 3.2, Albumin/Globulin Ratio 1.1, Alcohol, Quantitative 260 H I have reviewed the lab results: Yes - RAD Interpretation Radiology Orders: 07/25/16 15:47 CHEST PORTABLE [RAD] Stat - Medication Orders Current Medication Orders: Albuterol/Ipratropium (Duoneb 3 Mg/0.5 Mg (3 Ml) Ud) 3 ml IH [id number] PRN PRN Reason: Wheezing Chlordiazepoxide (Librium) 25 mg PO Q8 JACK PRN Reason: Protocol Guaifenesin (Robitussin) 200 mg PO Q4H PRN PRN Reason: Cough and congestion Heparin Sodium (Porcine) (Heparin) 5,000 units SC Q12 JACK PRN Reason: Protocol Multivitamins/Vitamin C 10 ml/Thiamine HCl 100 mg/ Folic Acid 1 mg/ Sodium Chloride 1,011.2 mls @ 100 mls/hr IV .[id number] ONE Stop: 07/26/16 04:08 Levofloxacin (Levaquin) 750 mg PO DAILY JACK Lorazepam (Ativan) 2 mg IVP Q3H PRN; Protocol PRN Reason: Agitation Methylprednisolone (Solu-Medrol) 40 mg IVP Q12 JACK Nicotine (Nicoderm Cq) 1 patch TD DAILY JACK Pantoprazole Sodium (Protonix Ec Tab) 40 mg PO 0630 JACK Discontinued Medications Albuterol/Ipratropium (Duoneb 3 Mg/0.5 Mg (3 Ml) Ud) 3 ml IH Q15M JACK Stop: 07/25/16 16:31 Last Admin: 07/25/16 16:02 Dose: 3 ML Albuterol/Ipratropium (Duoneb 3 Mg/0.5 Mg (3 Ml) Ud) 3 ml IH STAT STA Stop: 07/25/16 16:37 Last Admin: 07/25/16 16:55 Dose: 3 ML Magnesium Sulfate 2 gm/ Sodium (Chloride) 104 mls @ 102 mls/hr IVPB ONCE ONE Stop: 07/25/16 17:36 Last Admin: 07/25/16 17:05 Dose: 102 MLS/HR eMAR Start Stop Document 07/25/16 17:05 MMA (Rec: 07/25/16 17:05 [facility] [id number]) Intravenous Solution Start Date 07/25/16 Start Time 17:05 End Date 07/25/16 End time 18:10 Total Infusion Time 65 Methylprednisolone (Solu-Medrol) 125 mg IVP STAT STA Stop: 07/25/16 15:48 Last Admin: 07/25/16 16:05 Dose: 125 MG IVP Administration Document 07/25/16 16:05 MMA (Rec: 07/25/16 16:05 [facility] [id number]) Charges for Administration # of IVP Administrations 1 Potassium Chloride (K-Dur 20 Meq Er Tab) 40 meq PO STAT STA Stop: 07/25/16 16:42 Last Admin: 07/25/16 16:55 Dose: 40 MEQ - Scribe Statement The provider has reviewed the documentation as recorded by the Scribe Melvin Moraes Provider Scribe Attestation: All medical record entries made by the Scribe were at my direction and personally dictated by me. I have reviewed the chart and agree that the record accurately reflects my personal performance of the history, physical exam, medical decision making, and the department course for this patient. I have also personally directed, reviewed, and agree with the discharge instructions and disposition. Disposition/Present on Arrival - Present on Arrival Any Indicators Present on Arrival: No History of DVT/PE: No History of Uncontrolled Diabetes: No Urinary Catheter: No History Surgical Site Infection Following: None - Disposition Have Diagnosis and Disposition been Completed?: Yes Diagnosis: Status asthmaticus Disposition: HOSPITALIZED Disposition Time: 04:00 Patient Problems: Current Active Problems Problem Status Diagnosed Cirrhosis and chronic liver disease Active Elevated blood pressure reading without diagnosis of hypertension Active Chronic hepatitis C Acute Chronic obstructive lung disease Acute Smoker Chronic Asthmatic bronchitis Resolved Condition: FAIR
[2016-07-25] MEDS: Albuterol-Ipratrop 3 mg / 0.5 (3 ml) UD IH SCH (16:02)
[2016-07-25 16:09] LABS: ADD MANUAL DIFF? NO
[2016-07-25 16:28] LABS: INR 0.94 (0.93-1.08); PARTIAL THROMBOPLASTIN TIME 24.2 Seconds (23.7-30.8)
[2016-07-25 16:32] LABS: BASO # 0.03 K/mm3 (0.0-2.0); BASO % 0.3 % (0.0-3.0); EOS # 0.2 (0.0-0.7); EOS % 1.4 % (1.5-5.0); GRAN # 6.65 (1.4-6.5); HEMATOCRIT 44.8 % (36.0-48.0); LYMPH # 3.8 (1.2-3.4); LYMPH % 31.9 % (22.0-35.0); MEAN CELL VOLUME 104.4 fL (80.0-105.0); MEAN CORPUSCULAR HEMOGLOBIN 36.4 pg (25.0-35.0); MEAN CORPUSCULAR HGB CONC 34.8 g/dl (31.0-37.0); MEAN PLATELET VOLUME 9.9 fl (7.0-11.0); MONO # 1.2 (0.1-0.6); MONO % 10.4 % (1.0-6.0); PLATELET COUNT 371 10^3/uL (120.0-450.0); RED CELL DISTRIBUTION WIDTH 13.6 % (11.5-14.5); WHITE BLOOD COUNT 11.9 10^3/ul (4.5-11.0)
[2016-07-25 16:35] LABS: ALB/GLOB RATIO 1.1 (1.1-1.8); ALKALINE PHOSPHATASE 93 U/L (38-133); ALT/SGPT 80 U/L (7-56); AST/SGOT 61 U/L (15-39); BILIRUBIN,TOTAL 0.6 mg/dL (0.2-1.3); BLOOD UREA NITROGEN 6 mg/dL (7-21); CALCIUM 8.3 mg/dL (8.4-10.5); CARBON DIOXIDE 30 mmol/L (21-33); CHLORIDE 99 mmol/L (98-107); GFR AFRICAN-AMERICAN > 60; GLUCOSE,RANDOM 119 mg/dL (70-110); POTASSIUM 3.1 mmol/L (3.6-5.0); SODIUM 142 mmol/L (132-148); TOTAL PROTEIN 6.6 g/dL (5.8-8.3)
[2016-07-25] MEDS ORDERED: Magnesium Sulfate 2 GM in Sodium Chloride 0.9% 100 ML IVPB ONE (16:35)
[2016-07-25] MEDS ORDERED: Albuterol-Ipratrop 3 mg / 0.5 (3 ml) UD IH STA (16:36)
[2016-07-25] MEDS ORDERED: Potassium Chloride 20 mEq ER Tab PO STA (16:41)
[2016-07-25 16:52] LABS: PH,URINE 6.5 (4.7-8.0); URINE BILIRUBIN NEGATIVE (NEGATIVE); URINE BLOOD NEGATIVE (NEGATIVE); URINE GLUCOSE (UA) NEGATIVE (NEGATIVE); URINE KETONE NEGATIVE (NEGATIVE); URINE LEUKOCYTE ESTERASE TRACE Leu/uL (NEGATIVE); URINE PROTEIN NEGATIVE mg/dL (<30 mg/dL)
[2016-07-25 16:56] LABS: URINE APPEARANCE CLEAR (CLEAR); URINE COLOR YELLOW (YELLOW)
[2016-07-25 16:58] LABS: TROPONIN I < 0.01 ng/mL
[2016-07-25 17:18] LABS: URINE BACTERIA SMALL (NEG); URINE RBC NEGATIVE /hpf (0-2)
[2016-07-25] MEDS ORDERED: Multivitamin (MVI) 10 ML, Thiamine 100 MG, Folic Acid 1 MG in Sodium Chloride 0.9% 1,00... IV ONE (18:02)
[2016-07-25] MEDS ORDERED: Albuterol-Ipratrop 3 mg / 0.5 (3 ml) UD IH PRN (18:03)
--- NOTE | 2016-07-25 18:39 | CP.PCM.HP ---
<Kyra Avila - Last Filed: 07/25/16 18:20> History of Present Illness - History of Present Illness History of Present Illness: CC: SOB 45 year old female with PMHx of asthma, hep C, ETOH abuse, IV drug use presents for shortness of breath and cough. Pt was discharged from hospital a few days ago after coming in for similar complaints. She was discharged with 4 medications: Pulmicort, Albuterol, Robitussin and prednisilone. She states that she took these medications like prescribed. Patient states her symptoms of shortness of breath and cough have been on going for a year now. However, she came in today because she brought in her partner to ED and developed worsening shortness of breath. Pt is homeless and continues to smoke 1-2 ppd of cigarettes. She also drinks daily and last drink was a few hours ago. Patient c/ o intermittent CP left sided that is sharp in nature. She also c/o of shortness of breath. She states that she uses her rescue inhaler daily and is woken up almost every day with shortness of breath. Pt does c/o of tremors in her hands. Patient denies having any fevers or chills. She has productive cough with yellowish sputum. Denies having any abd pain, N/V/D/C, diaphoresis. Pt does c/o of LE swelling. She is tolerating diet. PMHx: as stated above Sx; appendectomy, L lung sx, L eye sx NKDA Meds: see MAR Social: smokes 1-2 ppd x 20 yrs; ETOH use daily with liquor. Last drink was few hours ago; hx of IV heroin use Present on Admission - Present on Admission Any Indicators Present on Admission: No Review of Systems - Review of Systems All systems: reviewed and no additional remarkable complaints except Past Patient History - Infectious Disease Hx of Infectious Diseases: None - Tetanus Immunizations Tetanus Immunization: Unknown - Past Medical History & Family History Past Medical History?: Yes - Past Social History Smoking Status: Heavy Smoker > 10 Cigarettes Daily Chewing Tobacco Use: No Cigar Use: No Alcohol: > 2 Drinks/Day Drugs: Opiates Home Situation {Lives}: Homeless - CARDIAC Hx Hypertension: Yes - PULMONARY Hx Chronic Obstructive Pulmonary Disease (COPD): Yes - NEUROLOGICAL Hx Neurological Disorder: No - HEENT Hx HEENT Problems: No - RENAL Hx Chronic Kidney Disease: No - ENDOCRINE/METABOLIC Hx Endocrine Disorders: No - HEMATOLOGICAL/ONCOLOGICAL Hx Hepatitis C: Yes - INTEGUMENTARY Hx Cellulitis: Yes - MUSCULOSKELETAL/RHEUMATOLOGICAL Hx Falls: Yes - GASTROINTESTINAL Hx Gastrointestinal Disorders: No - GENITOURINARY/GYNECOLOGICAL Hx Genitourinary Disorders: No - PSYCHIATRIC Hx Psychophysiologic Disorder: No Hx Substance Use: Yes - SURGICAL HISTORY Hx Appendectomy: Yes Hx Tonsillectomy: Yes Other/Comment: As per patient, she has had "lung surgery". - ANESTHESIA Hx Anesthesia: Yes Hx Anesthesia Reactions: No Hx Malignant Hyperthermia: No Meds Allergies/Adverse Reactions: Allergies Allergy/AdvReac Type Severity Reaction Status Date / Time No Known Allergies Allergy Verified 07/16/16 21:05 Physical Exam - Constitutional Appears: No Acute Distress - Head Exam Head Exam: ATRAUMATIC - ENT Exam ENT Exam: Mucous Membranes Moist - Respiratory Exam Respiratory Exam: Wheezes (expiratory B/L lower lobes ). absent: Accessory Muscle Use, Rales, Rhonchi Additional comments: conversational dyspnea - Cardiovascular Exam Cardiovascular Exam: Tachycardia, +S1, +S2. absent: Diastolic murmur, Gallop, Rubs, Systolic Murmur - GI/Abdominal Exam GI & Abdominal Exam: Normal Bowel Sounds, Soft. absent: Distended, Firm, Guarding, Rigid, Tenderness - Extremities Exam Extremities exam: Negative for: calf tenderness, pedal edema, tenderness - Neurological Exam Neurological exam: Alert, CN II-XII Intact, Oriented x3 - Psychiatric Exam Psychiatric exam: Normal Affect, Normal Mood - Skin Skin Exam: Dry, Intact, Normal Color, Warm Results - Vital Signs Recent Vital Signs: Last Vital Signs Temp 98.9 F 07/25/16 16:23 Pulse 109 H 07/25/16 16:23 Resp 24 07/25/16 16:23 BP 105/66 07/25/16 16:23 Pulse Ox 95 07/25/16 16:23 - Labs Result Diagrams: 07/25/16 16:00 07/25/16 16:00 Labs: Laboratory Results - last 24 hr 07/25/16 07/25/16 07/25/16 16:00 16:30 16:35 WBC 11.9 H RBC 4.29 Hgb 15.6 Hct 44.8 MCV 104.4 MCH 36.4 H MCHC 34.8 RDW 13.6 Plt Count 371 MPV 9.9 Gran % 56.0 Lymph % (Auto) 31.9 [place] % (Auto) 10.4 H Eos % (Auto) 1.4 L Baso % (Auto) 0.3 Gran # 6.65 H Lymph # 3.8 H [place] # 1.2 H Eos # 0.2 Baso # 0.03 PT 10.1 INR 0.94 APTT 24.2 Sodium 142 Potassium 3.1 L Chloride 99 Carbon Dioxide 30 Anion Gap 16 BUN 6 L Creatinine 0.6 Est GFR ( Amer) > 60 Est GFR (Non-Af Amer) > 60 Random Glucose 119 H Calcium 8.3 L Magnesium 2.0 Total Bilirubin 0.6 AST 61 H ALT 80 H Alkaline Phosphatase 93 Lactate Dehydrogenase 609 Total Creatine Kinase 36 Troponin I < 0.01 Total Protein 6.6 Albumin 3.4 Globulin 3.2 Albumin/Globulin Ratio 1.1 Urine Color Yellow Urine Appearance Clear Urine pH 6.5 Ur Specific [place] <= 1.005 Urine Protein Negative Urine Glucose (UA) Negative Urine Ketones Negative Urine Blood Negative Urine Nitrate Negative Urine Bilirubin Negative Urine Urobilinogen 1.0 H Ur Leukocyte Esterase Trace H Urine RBC Negative Urine WBC 1 - 3 Ur Epithelial Cells 6 - 8 Urine Bacteria Small Urine Other Trichomonas Urine HCG, Qual Negative Alcohol, Quantitative 260 H Influenza Typ A,B (EIA) Negative for flu a/b - EKG Data EKG Interpreted by: Myself EKG shows normal: Sinus rhythm Rate: Tachycardia Assessment & Plan - Assessment and Plan (Free Text) Assessment: 45 y/o female with PMHX of COPD, hep C, ETOH abuse, hx of IV drug abuse is admitted of acute COPD exacerbation. Initial CXR is negative and unchanged from previous study. Pt is afebrile and WBC count is 11.9. Leukocytosis is likely 2/2 steroid use. Pt also c/o of left sided chest pain. Initial EKG showed sinus tach and initial trops are negative. Pt also has history of ETOH abuse. Her ETOH level was 260. Plan: 1. Acute COPD exacerbation -Duoneb 3 mg q4 - Solumedrol IV 40 mg Q12 - Levaquin 750 mg PO q24 - Robitussin - NC prn to maintain o2 >90% 2. ETOH abuse - [facility] protocol - Librium 25 mg PO q8 will taper - Ativan 2 mg q3 prn IV - Admit to tele 3. CP r/o ACS - Will check serial trops and EKG - ECHO from 07/18/16 showed normal EF with grade 1 diastolic dysfunction - Will check UDS 4. Hypokelemia - Replaced with 40 po kdur - Will continue to monitor and replace as needed 5. Prophylaxis - Protonix - heparin - scds Case discussed with attending Dr. Watson - Date & Time Date: 07/25/16 Time: 18:43 <Karolina Watson - Last Filed: 07/25/16 22:11> Results - Vital Signs Recent Vital Signs: Last Vital Signs Temp 98.7 F 07/25/16 20:10 Pulse 108 H 07/25/16 20:10 Resp 20 07/25/16 20:10 BP 112/62 07/25/16 20:10 Pulse Ox 96 07/25/16 18:46 - Labs Result Diagrams: 07/25/16 16:00 07/25/16 16:00 Labs: Laboratory Results - last 24 hr 07/25/16 18:00 Urine Opiates Screen Negative Urine Methadone Screen Negative Ur Barbiturates Screen Negative Ur Phencyclidine Scrn Negative Ur Amphetamines Screen Negative U Benzodiazepines Scrn Positive H U Oth Cocaine Metabols Negative U Cannabinoids Screen Negative Attending/Attestation - Attestation I have personally seen and examined this patient.: Yes I have fully participated in the care of the patient.: Yes I have reviewed all pertinent clinical information: Yes Notes (Text): 07/25/16 22:06 45 year old female with past medical history of asthma, alcohol abuse, chronic smoker, hepatitis C and history of iv drug abuse who presents with shortness of breath secondary to asthma exacerbation. She has multiple admissions for asthma /ETOH, most recently discharged last week. However, unfortunately she continues to smoke 1-2 packs daily and drink daily. Will start iv steroids, duonebs, and antibiotics. Nicoderm patch is ordered and patient was counselled on risks of continued tobacco abuse. Will obtain serial cardiac enzymes. Recent echo was reviewed. Utox is ordered. Continue with banana bag, libium and ativan prn for alcohol withdrawal symptoms. She was counselled on alcohol abstinence. Will replete and repeat potassium. Karolina Watson MD Hospitalist.
[2016-07-25 20:21] VITALS: BMI 26.7
[2016-07-25] MEDS ORDERED: Pneumococcal 23-Valent Vaccine IM ONE (20:22)
[2016-07-25] MEDS: MethylPREDNISolone 40 mg Vial IVP SCH (22:27)
[2016-07-26 01:14] LABS: TROPONIN I < 0.01 ng/mL
[2016-07-26] MEDS: Pantoprazole 40 mg EC Tab PO SCH (05:30)
[2016-07-26 08:14] LABS: TROPONIN I 0.02 ng/mL
[2016-07-26 08:22] LABS: ALB/GLOB RATIO 1.1 (1.1-1.8); ALKALINE PHOSPHATASE 82 U/L (38-133); ALT/SGPT 65 U/L (7-56); AST/SGOT 34 U/L (15-39); BILIRUBIN,TOTAL 0.7 mg/dL (0.2-1.3); BLOOD UREA NITROGEN 9 mg/dL (7-21); CALCIUM 8.7 mg/dL (8.4-10.5); CARBON DIOXIDE 31 mmol/L (21-33); CHLORIDE 101 mmol/L (98-107); GFR AFRICAN-AMERICAN > 60; GLUCOSE,RANDOM 128 mg/dL (70-110); MAGNESIUM 2.1 mg/dL (1.7-2.2); POTASSIUM 4.8 mmol/L (3.6-5.0); SODIUM 139 mmol/L (132-148); TOTAL PROTEIN 6.2 g/dL (5.8-8.3)
--- NOTE | 2016-07-26 09:14 | CARD ---
APPROVED REPORT EKG Measurement Heart [id number] <Conclusion> Sinus tachycardia Nonspecific ST and T wave abnormality RVCD No change except faster rate
[2016-07-26] MEDS: guaiFENesin 200 mg/10 ml Syrup UD PO PRN (09:25)
[2016-07-26 09:28] LABS: BASO # 0.01 K/mm3 (0.0-2.0); BASO % 0.1 % (0.0-3.0); GRAN # 11.93 (1.4-6.5); GRAN % 90.1 % (50.0-68.0); HEMATOCRIT 43.7 % (36.0-48.0); LYMPH # 0.9 (1.2-3.4); LYMPH % 6.8 % (22.0-35.0); MEAN CELL VOLUME 104.8 fL (80.0-105.0); MEAN CORPUSCULAR HEMOGLOBIN 35.7 pg (25.0-35.0); MEAN CORPUSCULAR HGB CONC 34.1 g/dl (31.0-37.0); MEAN PLATELET VOLUME 10.2 fl (7.0-11.0); MONO # 0.4 (0.1-0.6); PLATELET COUNT 324 10^3/uL (120.0-450.0); RED CELL DISTRIBUTION WIDTH 13.4 % (11.5-14.5); WHITE BLOOD COUNT 13.2 10^3/ul (4.5-11.0)
[2016-07-26] MEDS: MethylPREDNISolone 40 mg Vial IVP SCH ×2 (09:28→21:30)
[2016-07-26 09:30] LABS: ADD MANUAL DIFF? NO
--- NOTE | 2016-07-26 09:41 | RAD ---
HISTORY: sob COMPARISON: 07/17/2016 FINDINGS: LUNGS: No active pulmonary disease. PLEURA: No significant pleural effusion identified, no pneumothorax apparent. CARDIOVASCULAR: Normal. OSSEOUS STRUCTURES: No significant abnormalities. VISUALIZED UPPER ABDOMEN: Normal. OTHER FINDINGS: None. IMPRESSION: No active disease.
--- NOTE | 2016-07-26 16:40 | CP.PCM.PN ---
<RodolfoMaya - Last Filed: 07/26/16 16:52> Subjective - Date & Time of Evaluation Date of Evaluation: 07/26/16 Time of Evaluation: 07:55 - Subjective Subjective: Pt seen and evaluated at bedside. reports walking with help of nurse, and denie N/V, abdominal pain. Reports SOB. Afebrile overnight Objective - Vital Signs/Intake and Output Vital Signs (last 24 hours): Temp Pulse Resp BP Pulse Ox 98 F 91 H 20 155/98 H 99 07/26/16 12:00 07/26/16 14:00 07/26/16 12:00 07/26/16 12:00 07/26/16 06:00 Intake and Output: 07/26/16 07/26/16 06:59 18:59 Intake Total 240 720 Output Total 500 Balance -260 720 - Medications Medications: Current Medications Acetaminophen (Tylenol 325mg Tab) 650 mg PO Q4H PRN PRN Reason: Pain, moderate (4-7) Last Admin: 07/26/16 12:48 Dose: 650 mg Albuterol/Ipratropium (Duoneb 3 Mg/0.5 Mg (3 Ml) Ud) 3 ml IH [id number] PRN PRN Reason: Wheezing Chlordiazepoxide (Librium) 25 mg PO Q8 JACK PRN Reason: Protocol Last Admin: 07/26/16 15:21 Dose: 25 mg Guaifenesin (Robitussin) 200 mg PO Q4H PRN PRN Reason: Cough and congestion Last Admin: 07/26/16 09:25 Dose: 200 mg Heparin Sodium (Porcine) (Heparin) 5,000 units SC Q12 JACK PRN Reason: Protocol Last Admin: 07/26/16 09:25 Dose: 5,000 units Levofloxacin (Levaquin) 750 mg PO DAILY JACK Last Admin: 07/26/16 09:28 Dose: 750 mg Lorazepam (Ativan) 2 mg IVP Q3H PRN; Protocol PRN Reason: Agitation Last Admin: 07/26/16 08:00 Dose: 2 mg Methylprednisolone (Solu-Medrol) 30 mg IVP Q12 [facility] Nicotine (Nicoderm Cq) 1 patch TD DAILY [facility] Last Admin: 07/26/16 09:26 Dose: 1 patch Pantoprazole Sodium (Protonix Ec Tab) 40 mg PO 0630 [facility] Last Admin: 07/26/16 05:30 Dose: 40 mg - Labs Labs: 07/26/16 07:00 07/26/16 07:00 PT 10.1 Seconds (9.9-11.8) 07/25/16 16:00 INR 0.94 (0.93-1.08) 07/25/16 16:00 APTT 24.2 Seconds (23.7-30.8) 07/25/16 16:00 - Constitutional Appears: Non-toxic - Head Exam Head Exam: ATRAUMATIC, NORMOCEPHALIC - Eye Exam Eye Exam: EOMI, Normal appearance Pupil Exam: NORMAL ACCOMODATION, PERRL - Respiratory Exam Respiratory Exam: Wheezes, NORMAL BREATHING PATTERN - Cardiovascular Exam Cardiovascular Exam: +S1, +S2. absent: Bradycardia - GI/Abdominal Exam GI & Abdominal Exam: Soft. absent: Tenderness - Exam External exam: absent: Ecchymosis, Erythema - Extremities Exam Extremities Exam: absent: Pedal Edema, Tenderness - Neurological Exam Neurological Exam: Alert, Awake - Psychiatric Exam Psychiatric exam: Normal Affect, Normal Mood - Skin Skin Exam: Dry, Intact Assessment and Plan - Assessment and Plan (Free Text) Plan: 45 y/o female with PMHX of asthma, current chronic smoker, hep C, current ETOH abuse, hx of IV drug abuse is admitted of acute asthma exacerbation. Initial CXR is negative and unchanged from previous study. Initially is afebrile and WBC count is 11.9. Leukocytosis is likely 2/2 steroid use. Pt also c/o of left sided chest pain. Initial EKG showed sinus tach and initial trops are negative. Pt also has history of ETOH abuse. Her ETOH level was 260. Plan: 1. Acute COPD exacerbation -Duoneb 3 mg q4 - Solumedrol IV 30 mg Q12 - Levaquin - Robitussin - NC prn to maintain o2 >90% 2. ETOH abuse - [facility] protocol - Librium 25 mg PO q8 will taper - Ativan 2 mg q3 prn IV - Admit to remote tele -counseled on ETOH dependence 3. CP r/o ACS serial trops are negative - ECHO from 07/18/16 showed normal EF with grade 1 diastolic dysfunction - Will check UDS negative for amphetamines and cocaine, positive for benzodiazapenes and ETOH 4. Hypokelemia - resolved, 4.8 today - Will continue to monitor and replace as needed 5. Prophylaxis - Protonix - heparin - scds <Karolina Watson - Last Filed: 07/26/16 17:51> Objective - Vital Signs/Intake and Output Vital Signs (last 24 hours): Temp Pulse Resp BP Pulse Ox 98.2 F 96 H 18 123/92 H 98 07/26/16 16:00 07/26/16 16:00 07/26/16 16:00 07/26/16 16:00 07/26/16 16:00 Intake and Output: 07/26/16 07/26/16 06:59 18:59 Intake Total 240 720 Output Total 500 Balance -260 720 - Medications Medications: Current Medications Acetaminophen (Tylenol 325mg Tab) 650 mg PO Q4H PRN PRN Reason: Pain, moderate (4-7) Last Admin: 07/26/16 12:48 Dose: 650 mg Albuterol/Ipratropium (Duoneb 3 Mg/0.5 Mg (3 Ml) Ud) 3 ml IH [id number] PRN PRN Reason: Wheezing Chlordiazepoxide (Librium) 25 mg PO Q8 JACK PRN Reason: Protocol Last Admin: 07/26/16 15:21 Dose: 25 mg Guaifenesin (Robitussin) 200 mg PO Q4H PRN PRN Reason: Cough and congestion Last Admin: 07/26/16 09:25 Dose: 200 mg Heparin Sodium (Porcine) (Heparin) 5,000 units SC Q12 JACK PRN Reason: Protocol Last Admin: 07/26/16 09:25 Dose: 5,000 units Levofloxacin (Levaquin) 750 mg PO DAILY [facility] Last Admin: 07/26/16 09:28 Dose: 750 mg Lorazepam (Ativan) 2 mg IVP Q3H PRN; Protocol PRN Reason: Agitation Last Admin: 07/26/16 16:49 Dose: 2 mg Methylprednisolone (Solu-Medrol) 30 mg IVP Q12 [facility] Nicotine (Nicoderm Cq) 1 patch TD DAILY [facility] Last Admin: 07/26/16 09:26 Dose: 1 patch Pantoprazole Sodium (Protonix Ec Tab) 40 mg PO 0630 [facility] Last Admin: 07/26/16 05:30 Dose: 40 mg - Labs Labs: 07/26/16 07:00 07/26/16 07:00 PT 10.1 Seconds (9.9-11.8) 07/25/16 16:00 INR 0.94 (0.93-1.08) 07/25/16 16:00 APTT 24.2 Seconds (23.7-30.8) 07/25/16 16:00 Attending/Attestation - Attestation I have personally seen and examined this patient.: Yes I have fully participated in the care of the patient.: Yes I have reviewed all pertinent clinical information, including history, physical exam and plan: Yes Notes (Text): 07/26/16 17:49 45 year old female with past medical history of asthma, alcohol abuse, chronic smoker, hepatitis C and history of iv drug abuse who presented with shortness of breath secondary to asthma exacerbation. She has multiple admissions for asthma/ETOH, most recently discharged last week. However, unfortunately she continues to smoke 1-2 packs daily and drink daily. Her symptoms are improving on duonebs, antibiotics and iv steroids. Will begin to taper solumedrol. Continue with nicoderm patch. She was counselled on risks of continued tobacco abuse. Serial cardiac enzymes were negative and ACS was ruled out. Continue with banana bag, librium and ativan prn for alcohol withdrawal symptoms. She was counselled on alcohol abstinence. Potassium was repleted with normal level today. Karolina Watson MD Hospitalist.
[2016-07-27] MEDS: Pantoprazole 40 mg EC Tab PO SCH (05:33)
[2016-07-27 07:41] LABS: ADD MANUAL DIFF? NO
[2016-07-27 07:45] LABS: BASO # 0.02 K/mm3 (0.0-2.0); BASO % 0.1 % (0.0-3.0); GRAN # 16.79 (1.4-6.5); GRAN % 88.7 % (50.0-68.0); HEMATOCRIT 42.4 % (36.0-48.0); LYMPH # 1.4 (1.2-3.4); LYMPH % 7.3 % (22.0-35.0); MEAN CELL VOLUME 104.7 fL (80.0-105.0); MEAN CORPUSCULAR HGB CONC 34.4 g/dl (31.0-37.0); MEAN PLATELET VOLUME 9.9 fl (7.0-11.0); MONO # 0.7 (0.1-0.6); MONO % 3.9 % (1.0-6.0); PLATELET COUNT 309 10^3/uL (120.0-450.0); RED CELL DISTRIBUTION WIDTH 13.5 % (11.5-14.5); WHITE BLOOD COUNT 18.9 10^3/ul (4.5-11.0)
[2016-07-27 08:02] LABS: ALB/GLOB RATIO 1.1 (1.1-1.8); ALKALINE PHOSPHATASE 74 U/L (38-133); ALT/SGPT 55 U/L (7-56); AST/SGOT 32 U/L (15-39); BILIRUBIN,TOTAL 0.6 mg/dL (0.2-1.3); BLOOD UREA NITROGEN 16 mg/dL (7-21); CALCIUM 8.6 mg/dL (8.4-10.5); CARBON DIOXIDE 30 mmol/L (21-33); CHLORIDE 100 mmol/L (95-110); GFR AFRICAN-AMERICAN > 60; GLUCOSE,RANDOM 120 mg/dL (70-110); POTASSIUM 4.2 mmol/L (3.6-5.0); SODIUM 136 mmol/L (132-148)
[2016-07-27] MEDS ORDERED: oxyCODONE 10 mg ER Tab (oxyCONTIN) PO ONE (08:05)
[2016-07-27] MEDS: guaiFENesin 200 mg/10 ml Syrup UD PO PRN ×2 (08:29→18:37)
[2016-07-27] MEDS: MethylPREDNISolone 40 mg Vial IVP SCH ×2 (09:19→21:18)
--- NOTE | 2016-07-27 15:04 | CON ---
DATE: 07/27/2016 REQUESTING PHYSICIAN: Dr. Watson. REASON FOR CONSULTATION: Chest pain. HISTORY OF PRESENT ILLNESS: This is a 45-year-old woman with a history of asthma, tobacco and alcoho l abuse, admitted with complaints of dyspnea and chest pain. She was recently admitted with similar complaints and was recently discharged. She presented with worsening dyspnea and wheezing. She also describes a chest tightness with coughing and wheezing. She denies any prior cardiac history. She is a smoker of 1-2 packs per day for many years. She also has a history of heavy alcohol abuse. She denies any prior cardiac history. She is not hypertensive or diabetic. She is unaware of her lipid status. PAST MEDICAL HISTORY: Notable for prior appendectomy as well as unspecified left lung surgery. She has a history of hepatitis C. ALLERGIES: She has no reported allergies. She was reportedly discharged on Pulmicort, albuterol, Robitussin, prednisone. SOCIAL HISTORY: As mentioned, she has been a heavy smoker for over 20 years. She also drinks alcoho l on a daily basis, all day long. 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 She h as no reported allergies. FAMILY HISTORY: She has not been in contact with family members. REVIEW OF SYSTEMS: A 10-point review of systems is notable for the problems mentioned above. PHYSICAL EXAMINATION: GENERAL: She is a somewhat disheveled appearing middle-aged woman. VITAL SIGNS: Her blood pressure is 148/110 with a pulse of 90, respirations are 16. She is afebrile . HEENT: Normocephalic, atraumatic. NECK: Supple. No JVD noted. CHEST: Bilateral coarse rhonchi with scattered wheezing heard. No rales noted. HEART: PMI normal position. Systolic murmur is noted lower left sternal border. ABDOMEN: Soft, nontender, normoactive bowel sounds. EXTREMITIES: No clubbing, cyanosis or edema. SKIN: Warm and dry. PSYCHIATRIC: Appears mildly agitated and somewhat tremulous. NEUROLOGIC: Alert and oriented x 3. No gross motor or sensory deficits appreciable. DIAGNOSTIC DATA: Potassium 4.2, BUN and creatinine are 16 and 0.5. White count 18.9. Hemoglobin an d hematocrit 14.6 and 42.4 with a platelet count of 309,000. Electrocardiogram reveals sinus tachyca rdia with nonspecific ST-T abnormalities. Chest x-ray reveals normal cardiac silhouette with clear l suzanne dean. IMPRESSION: 1. Chest pain, likely has a pleuritic component given asthmatic flare up and recent coughing. Doubt cardiac ischemia. 2. History of tobacco abuse. 3. History of heavy alcohol abuse. 4. Rest of problems as noted. RECOMMENDATIONS: At this time, serial enzymes can be obtained. The likelihood of coronary ischemia is relatively low. An eventual stress test as an outpatient can be planned. Observation for impendi ng delirium tremens would be advisable. Obviously, alcohol and smoking abstinence should be discoura ged. Thank you for this consultation. I am happy to see as needed. Isaías Tellez MD cc: [id number] TT: 07/27/2016 15:03:53 Confirmation # [id number] Dictation # [id number] [email or web address]
--- NOTE | 2016-07-27 15:58 | CP.PCM.PN ---
<Maya Reynolds - Last Filed: 07/27/16 23:34> Subjective - Date & Time of Evaluation Date of Evaluation: 07/27/16 Time of Evaluation: 08:40 - Subjective Subjective: Pt seen and evaluated at the bedside. Self-resolved episode of tachycardia in 180's today around 6:30 AM, accompanied with hypertension. Pt denies SOB, N/V, dysuria or hematuria, and reports BM today. Objective - Vital Signs/Intake and Output Vital Signs (last 24 hours): Temp Pulse Resp BP Pulse Ox 98.1 F 90 22 148/110 H 97 07/27/16 06:00 07/27/16 08:24 07/27/16 06:00 07/27/16 09:51 07/27/16 06:00 Intake and Output: 07/27/16 07/27/16 06:59 18:59 Intake Total 540 Balance 540 - Medications Medications: Current Medications Acetaminophen (Tylenol 325mg Tab) 650 mg PO Q4H PRN PRN Reason: Pain, moderate (4-7) Last Admin: 07/26/16 12:48 Dose: 650 mg Albuterol/Ipratropium (Duoneb 3 Mg/0.5 Mg (3 Ml) Ud) 3 ml IH [id number] PRN PRN Reason: Wheezing Chlordiazepoxide (Librium) 25 mg PO Q12 JACK PRN Reason: Protocol Clonidine HCl (Catapres) 0.1 mg PO BID PRN PRN Reason: Systolic Blood Pressure Last Admin: 07/27/16 09:51 Dose: 0.1 mg Guaifenesin (Robitussin) 200 mg PO Q4H PRN PRN Reason: Cough and congestion Last Admin: 07/27/16 08:29 Dose: 200 mg Heparin Sodium (Porcine) (Heparin) 5,000 units SC Q12 JACK PRN Reason: Protocol Last Admin: 07/27/16 09:22 Dose: 5,000 units Levofloxacin (Levaquin) 750 mg PO DAILY JACK Last Admin: 07/27/16 09:19 Dose: 750 mg Lorazepam (Ativan) 2 mg IVP Q3H PRN; Protocol PRN Reason: Agitation Last Admin: 07/27/16 09:51 Dose: 2 mg Methylprednisolone (Solu-Medrol) 20 mg IVP Q12 [facility] Nicotine (Nicoderm Cq) 1 patch TD DAILY [facility] Last Admin: 07/27/16 09:19 Dose: 1 patch Pantoprazole Sodium (Protonix Ec Tab) 40 mg PO 0630 JACK Last Admin: 07/27/16 05:33 Dose: 40 mg Tramadol HCl (Ultram) 25 mg PO Q8H PRN PRN Reason: Pain, severe (8-10) - Labs Labs: 07/27/16 07:00 07/27/16 07:00 PT 10.1 Seconds (9.9-11.8) 07/25/16 16:00 INR 0.94 (0.93-1.08) 07/25/16 16:00 APTT 24.2 Seconds (23.7-30.8) 07/25/16 16:00 - Constitutional Appears: Unkempt, Agitated - Head Exam Head Exam: ATRAUMATIC, NORMOCEPHALIC - Eye Exam Eye Exam: EOMI, Normal appearance - Respiratory Exam Respiratory Exam: Wheezes, NORMAL BREATHING PATTERN Additional comments: slight wheezing - Cardiovascular Exam Cardiovascular Exam: Tachycardia, +S1, +S2 - GI/Abdominal Exam GI & Abdominal Exam: Soft. absent: Tenderness - Exam External exam: absent: Ecchymosis, Erythema - Extremities Exam Extremities Exam: Normal Capillary Refill. absent: Pedal Edema - Neurological Exam Neurological Exam: Alert, Awake - Skin Skin Exam: Normal Color, Warm Assessment and Plan - Assessment and Plan (Free Text) Plan: 45 y/o female with PMHX of asthma, current chronic smoker, hep C, current ETOH abuse, hx of IV drug abuse is admitted of acute asthma exacerbation. Initial CXR is negative and unchanged from previous study. Initially is afebrile w/WBC count of 11.9. Leukocytosis is likely 2/2 steroid use. Pt also c/o of left sided chest pain. Initial EKG showed sinus tach and initial trops are negative. Pt also has history of ETOH abuse. Her ETOH level was 260. Plan: Acute COPD exacerbation -Duoneb 3 mg q4 prn - Solumedrol IV 20 mg Q12, taper - Levaquin - Robitussin - NC prn to maintain o2 >90% - tramadol ETOH abuse - [facility] protocol - Librium 25 mg PO q12 will taper - Ativan 2 mg q3 prn IV - Admitted to remote tele -counseled on ETOH dependence Hypertension, Clonidine JACK added on tachycardia self resolved episode of tachycardia around 6am, 180's HR cardiac consult appreciated CP r/o ACS serial trops are negative - ECHO from 07/18/16 showed normal EF with grade 1 diastolic dysfunction - UDS negative for amphetamines and cocaine, positive for benzodiazapenes and ETOH Hypokalemia - resolved, - Will continue to monitor and replace as needed UTI Ucx positive for G+ cocci Levaquin Prophylaxis - Protonix - heparin - scds <Karolina Watson - Last Filed: 07/28/16 06:55> Objective - Vital Signs/Intake and Output Vital Signs (last 24 hours): Temp Pulse Resp BP Pulse Ox 98.2 F 59 L 20 152/100 H 100 07/27/16 16:00 07/28/16 06:00 07/27/16 16:00 07/27/16 16:00 07/27/16 16:00 Intake and Output: 07/27/16 07/28/16 18:59 06:59 Intake Total 540 Balance 540 - Medications Medications: Current Medications Acetaminophen (Tylenol 325mg Tab) 650 mg PO Q4H PRN PRN Reason: Pain, moderate (4-7) Last Admin: 07/26/16 12:48 Dose: 650 mg Albuterol/Ipratropium (Duoneb 3 Mg/0.5 Mg (3 Ml) Ud) 3 ml IH [id number] PRN PRN Reason: Wheezing Chlordiazepoxide (Librium) 25 mg PO Q12 JACK PRN Reason: Protocol Last Admin: 07/27/16 21:17 Dose: 25 mg Clonidine HCl (Catapres) 0.1 mg PO BID PRN PRN Reason: Systolic Blood Pressure Last Admin: 07/27/16 09:51 Dose: 0.1 mg Folic Acid (Folic Acid) 1 mg PO DAILY [facility] Guaifenesin (Robitussin) 200 mg PO Q4H PRN PRN Reason: Cough and congestion Last Admin: 07/27/16 18:37 Dose: 200 mg Heparin Sodium (Porcine) (Heparin) 5,000 units SC Q12 JACK PRN Reason: Protocol Last Admin: 07/27/16 21:17 Dose: 5,000 units Levofloxacin (Levaquin) 750 mg PO DAILY [facility] Last Admin: 07/27/16 09:19 Dose: 750 mg Lorazepam (Ativan) 2 mg IVP Q3H PRN; Protocol PRN Reason: Agitation Last Admin: 07/28/16 02:48 Dose: 2 mg Methylprednisolone (Solu-Medrol) 20 mg IVP Q12 JACK Last Admin: 07/27/16 21:18 Dose: 20 mg Multivitamins (Thera Tab) 1 tab PO DAILY [facility] Nicotine (Nicoderm Cq) 1 patch TD DAILY JACK Last Admin: 07/27/16 09:19 Dose: 1 patch Pantoprazole Sodium (Protonix Ec Tab) 40 mg PO 0630 [facility] Last Admin: 07/28/16 06:06 Dose: 40 mg Thiamine HCl (Vitamin B1 Tab) 100 mg PO DAILY JACK Tramadol HCl (Ultram) 25 mg PO Q8H PRN PRN Reason: Pain, severe (8-10) Last Admin: 07/28/16 05:02 Dose: 25 mg - Labs Labs: 07/27/16 07:00 07/27/16 07:00 PT 10.1 Seconds (9.9-11.8) 07/25/16 16:00 INR 0.94 (0.93-1.08) 07/25/16 16:00 APTT 24.2 Seconds (23.7-30.8) 07/25/16 16:00 Attending/Attestation - Attestation I have personally seen and examined this patient.: Yes I have fully participated in the care of the patient.: Yes I have reviewed all pertinent clinical information, including history, physical exam and plan: Yes Notes (Text): 07/27/16 45 year old female with past medical history of asthma, alcohol abuse, chronic smoker, hepatitis C and history of iv drug abuse who presented with shortness of breath secondary to asthma exacerbation. She has multiple admissions for asthma/ETOH, most recently discharged last week. However, unfortunately she continues to smoke 1-2 packs daily and drink daily. Her wheezing is improving on iv steroids, duonebs and antibiotics. Will continue to taper solumedrol. Continue with nicoderm patch. She was counselled on risks of continued tobacco abuse. Serial cardiac enzymes were negative and ACS was ruled out. Overnight she was reported to have tachyarrythmia and cardiology evaluation was requested. Will monitor. Continue with multivitamin, folic acid and thiamine. She is on tapering librium and ativan prn for alcohol withdrawal symptoms. She was counselled on alcohol abstinence. Leukocytosis likely secondary to steroids. Will monitor. Karolina Watson MD Hospitalist.
[2016-07-27 17:33] VITALS: RESP 20
[2016-07-28] MEDS: Pantoprazole 40 mg EC Tab PO SCH (06:06)
[2016-07-28 07:49] LABS: ADD MANUAL DIFF? NO
[2016-07-28 07:53] LABS: BASO # 0.01 K/mm3 (0.0-2.0); BASO % 0.1 % (0.0-3.0); GRAN # 14.23 (1.4-6.5); GRAN % 82.7 % (50.0-68.0); HEMATOCRIT 44.8 % (36.0-48.0); LYMPH % 11.9 % (22.0-35.0); MEAN CELL VOLUME 104.2 fL (80.0-105.0); MEAN CORPUSCULAR HEMOGLOBIN 36.3 pg (25.0-35.0); MEAN CORPUSCULAR HGB CONC 34.8 g/dl (31.0-37.0); MEAN PLATELET VOLUME 9.8 fl (7.0-11.0); MONO # 0.9 (0.1-0.6); MONO % 5.3 % (1.0-6.0); PLATELET COUNT 323 10^3/uL (120.0-450.0); RED CELL DISTRIBUTION WIDTH 13.6 % (11.5-14.5); WHITE BLOOD COUNT 17.2 10^3/ul (4.5-11.0)
[2016-07-28 08:08] LABS: ALKALINE PHOSPHATASE 70 U/L (38-133); ALT/SGPT 58 U/L (7-56); AST/SGOT 35 U/L (15-39); BLOOD UREA NITROGEN 20 mg/dL (7-21); CALCIUM 8.3 mg/dL (8.4-10.5); CARBON DIOXIDE 33 mmol/L (21-33); CHLORIDE 95 mmol/L (98-107); GFR AFRICAN-AMERICAN > 60; GLUCOSE,RANDOM 86 mg/dL (70-110); POTASSIUM 4.1 mmol/L (3.6-5.0); SODIUM 133 mmol/L (132-148); TOTAL PROTEIN 6.7 g/dL (5.8-8.3)
--- NOTE | 2016-07-28 09:00 | CP.PCM.PN ---
Subjective - Date & Time of Evaluation Date of Evaluation: 07/28/16 Time of Evaluation: 08:00 - Subjective Subjective: Stable on 3R Still congested with dyspnea and mild pl. CP. V/S noted PE: Lungs: rhonchi, wheezing Cor.: S1S2 Abd.: soft Ext.: no edema Neuro.: alert Trops neg x 3 Objective - Vital Signs/Intake and Output Vital Signs (last 24 hours): Temp Pulse Resp BP Pulse Ox 98.2 F 59 L 20 152/100 H 100 07/27/16 16:00 07/28/16 06:00 07/27/16 16:00 07/27/16 16:00 07/27/16 16:00 Intake and Output: 07/28/16 07/28/16 06:59 18:59 Intake Total 540 Balance 540 - Medications Medications: Current Medications Acetaminophen (Tylenol 325mg Tab) 650 mg PO Q4H PRN PRN Reason: Pain, moderate (4-7) Last Admin: 07/26/16 12:48 Dose: 650 mg Albuterol/Ipratropium (Duoneb 3 Mg/0.5 Mg (3 Ml) Ud) 3 ml IH [id number] PRN PRN Reason: Wheezing Chlordiazepoxide (Librium) 25 mg PO Q12 JACK PRN Reason: Protocol Last Admin: 07/27/16 21:17 Dose: 25 mg Clonidine HCl (Catapres) 0.1 mg PO BID PRN PRN Reason: Systolic Blood Pressure Last Admin: 07/27/16 09:51 Dose: 0.1 mg Folic Acid (Folic Acid) 1 mg PO DAILY [facility] Guaifenesin (Robitussin) 200 mg PO Q4H PRN PRN Reason: Cough and congestion Last Admin: 07/27/16 18:37 Dose: 200 mg Heparin Sodium (Porcine) (Heparin) 5,000 units SC Q12 JACK PRN Reason: Protocol Last Admin: 07/27/16 21:17 Dose: 5,000 units Levofloxacin (Levaquin) 750 mg PO DAILY [facility] Last Admin: 07/27/16 09:19 Dose: 750 mg Lorazepam (Ativan) 2 mg IVP Q3H PRN; Protocol PRN Reason: Agitation Last Admin: 07/28/16 02:48 Dose: 2 mg Methylprednisolone (Solu-Medrol) 20 mg IVP Q12 [facility] Last Admin: 07/27/16 21:18 Dose: 20 mg Multivitamins (Thera Tab) 1 tab PO DAILY [facility] Nicotine (Nicoderm Cq) 1 patch TD DAILY [facility] Last Admin: 07/27/16 09:19 Dose: 1 patch Pantoprazole Sodium (Protonix Ec Tab) 40 mg PO 0630 [facility] Last Admin: 07/28/16 06:06 Dose: 40 mg Thiamine HCl (Vitamin B1 Tab) 100 mg PO DAILY [facility] Tramadol HCl (Ultram) 25 mg PO Q8H PRN PRN Reason: Pain, severe (8-10) Last Admin: 07/28/16 05:02 Dose: 25 mg - Labs Labs: 07/28/16 07:30 07/28/16 07:30 PT 10.1 Seconds (9.9-11.8) 07/25/16 16:00 INR 0.94 (0.93-1.08) 07/25/16 16:00 APTT 24.2 Seconds (23.7-30.8) 07/25/16 16:00 Assessment and Plan - Assessment and Plan (Free Text) Plan: Assessment: Dyspnea/Congested/Pleuritic CP COPD Smoker Heavy Daily ETOH Consumption/ETOH witdrawl H/O IV heroin use Hep. C H?O ruba. and lung surgery Plan: Pulm. Tx. AB Rx. for ETOH withdrawl D/C tobacco Monitor: labs, I/O, sats., etc. Will follow.
[2016-07-28 09:32] VITALS: BP 117/74; TEMP 97.6; O2SAT 98
[2016-07-28] MEDS: MethylPREDNISolone 40 mg Vial IVP SCH (09:37)
[2016-07-28] MEDS ORDERED: Multivitamin Therapeutic Tab PO SCH (10:00)
[2016-07-28 11:58] VITALS: PULSE 86
--- NOTE | 2016-07-28 15:23 | CP.PCM.DIS ---
<Maya Reynolds - Last Filed: 08/08/16 12:36> Provider - Provider Date of Admission: 07/25/16 17:08 Attending physician: Karolina Watson MD Primary care physician: NO PRIMARY CARE PROVIDER Consults: cardiology Drs. Tellez and Sally Time Spent in preparation of Discharge (in minutes): 32 Hospital Course - Lab Results Lab Results: Micro Results 07/25/16 18:00 Urine,Clean Catch Urine Culture - Final Gram Positive Cocci Most Recent Lab Values WBC 17.2 10^3/ul (4.5-11.0) H 07/28/16 07:30 RBC 4.30 10^6/uL (3.5-6.1) 07/28/16 07:30 Hgb 15.6 gm/dL (12.0-16.0) 07/28/16 07:30 Hct 44.8 % (36.0-48.0) 07/28/16 07:30 MCV 104.2 fL (80.0-105.0) 07/28/16 07:30 MCH 36.3 pg (25.0-35.0) H 07/28/16 07:30 MCHC 34.8 g/dl (31.0-37.0) 07/28/16 07:30 RDW 13.6 % (11.5-14.5) 07/28/16 07:30 Plt Count 323 10^3/uL (120.0-450.0) 07/28/16 07:30 MPV 9.8 fl (7.0-11.0) 07/28/16 07:30 Gran % 82.7 % (50.0-68.0) H 07/28/16 07:30 Lymph % (Auto) 11.9 % (22.0-35.0) L 07/28/16 07:30 Allen % (Auto) 5.3 % (1.0-6.0) 07/28/16 07:30 Eos % (Auto) 0.0 % (1.5-5.0) L 07/28/16 07:30 Baso % (Auto) 0.1 % (0.0-3.0) 07/28/16 07:30 Gran # 14.23 (1.4-6.5) H 07/28/16 07:30 Lymph # 2.0 (1.2-3.4) 07/28/16 07:30 Allen # 0.9 (0.1-0.6) H 07/28/16 07:30 Eos # 0.0 (0.0-0.7) 07/28/16 07:30 Baso # 0.01 K/mm3 (0.0-2.0) 07/28/16 07:30 PT 10.1 Seconds (9.9-11.8) 07/25/16 16:00 INR 0.94 (0.93-1.08) 07/25/16 16:00 APTT 24.2 Seconds (23.7-30.8) 07/25/16 16:00 Sodium 133 mmol/L (132-148) 07/28/16 07:30 Potassium 4.1 mmol/L (3.6-5.0) 07/28/16 07:30 Chloride 95 mmol/L (98-107) L 07/28/16 07:30 Carbon Dioxide 33 mmol/L (21-33) 07/28/16 07:30 Anion Gap 9 (10-20) L 07/28/16 07:30 BUN 20 mg/dL (7-21) 07/28/16 07:30 Creatinine 0.7 mg/dL (0.5-1.4) 07/28/16 07:30 Est GFR ( Amer) > 60 07/28/16 07:30 Est GFR (Non-Af Amer) > 60 07/28/16 07:30 POC Glucose (mg/dL) 152 mg/dL (65-110) H 07/27/16 11:17 Random Glucose 86 mg/dL (70-110) 07/28/16 07:30 Calcium 8.3 mg/dL (8.4-10.5) L 07/28/16 07:30 Magnesium 2.0 mg/dL (1.7-2.2) 07/28/16 07:30 Total Bilirubin 1.0 mg/dL (0.2-1.3) 07/28/16 07:30 AST 35 U/L (15-39) 07/28/16 07:30 ALT 58 U/L (7-56) H 07/28/16 07:30 Alkaline Phosphatase 70 U/L (38-133) 07/28/16 07:30 Lactate Dehydrogenase 532 U/L (333-699) 07/26/16 07:00 Total Creatine Kinase 21 U/L (35-230) L 07/26/16 07:00 Troponin I 0.02 ng/mL D 07/26/16 07:00 Total Protein 6.7 g/dL (5.8-8.3) 07/28/16 07:30 Albumin 3.4 g/dL (3.0-4.8) 07/28/16 07:30 Globulin 3.3 gm/dL 07/28/16 07:30 Albumin/Globulin Ratio 1.0 (1.1-1.8) L 07/28/16 07:30 Urine Color Yellow (YELLOW) 07/25/16 16:35 Urine Appearance Clear (CLEAR) 07/25/16 16:35 Urine pH 6.5 (4.7-8.0) 07/25/16 16:35 Ur Specific Dunlo <= 1.005 (1.005-1.035) 07/25/16 16:35 Urine Protein Negative mg/dL (<30 mg/dL) 07/25/16 16:35 Urine Glucose (UA) Negative mg/dL (NEGATIVE) 07/25/16 16:35 Urine Ketones Negative mg/dL (NEGATIVE) 07/25/16 16:35 Urine Blood Negative (NEGATIVE) 07/25/16 16:35 Urine Nitrate Negative (NEGATIVE) 07/25/16 16:35 Urine Bilirubin Negative (NEGATIVE) 07/25/16 16:35 Urine Urobilinogen 1.0 E.U./dL (<1 E.U./dL) H 07/25/16 16:35 Ur Leukocyte Esterase Trace Erik/uL (NEGATIVE) H 07/25/16 16:35 Urine RBC Negative /hpf (0-2) 07/25/16 16:35 Urine WBC 1 - 3 /hpf (0-6) 07/25/16 16:35 Ur Epithelial Cells 6 - 8 /hpf (0-5) 07/25/16 16:35 Urine Bacteria Small (NEG) 07/25/16 16:35 Urine Other Trichomonas 07/25/16 16:35 Urine HCG, Qual Negative (NEGATIVE) 07/25/16 16:35 Urine Opiates Screen Negative (NEGATIVE) 07/25/16 18:00 Urine Methadone Screen Negative (NEGATIVE) 07/25/16 18:00 Ur Barbiturates Screen Negative (NEGATIVE) 07/25/16 18:00 Ur Phencyclidine Scrn Negative (NEGATIVE) 07/25/16 18:00 Ur Amphetamines Screen Negative (NEGATIVE) 07/25/16 18:00 U Benzodiazepines Scrn Positive (NEGATIVE) H 07/25/16 18:00 U Oth Cocaine Metabols Negative (NEGATIVE) 07/25/16 18:00 U Cannabinoids Screen Negative (NEGATIVE) 07/25/16 18:00 Alcohol, Quantitative 260 mg/dL (0-10) H 07/25/16 16:00 Influenza Typ A,B (EIA) Negative for flu a/b (NEGATIVE) 07/25/16 16:30 - Hospital Course Hospital Course: 45 yo female w/ past medical history of asthma, COPD, EtOH and IV drug abuse presented to ED with shortness of breath and productive cough. CXR was done in the ED which was negative. Pt also complained of L sided chest pain. Serial trops were negative. EKG showed sinus tachycardia. During this admission, pt experienced a transient self-resolved tachycardic episode in the early AM along with hypertension. Cardio was consulted and follow up with outpatient stress test was recommended. Due to patients liver function panel, Librium was given for EtOH withdrawal. Pt was found to have trichomonas in the urine and the urine culture was positive for G+ cocci. Pt will complete the course of antibiotics upon discharge. Discussed with pt and partner the importance of treating the partner. Pts SOB and cough were significantly improved and will be discharged with Pulmicort, albuterol, and Medrol dose taylor. Discharge Exam - Head Exam Head Exam: ATRAUMATIC, NORMOCEPHALIC - Eye Exam Eye Exam: EOMI, Normal appearance Pupil Exam: NORMAL ACCOMODATION, PERRL - ENT Exam ENT Exam: Mucous Membranes Moist, Normal Exam - Respiratory Exam Respiratory Exam: Clear to PA & Lateral, NORMAL BREATHING PATTERN - Cardiovascular Exam Cardiovascular Exam: +S1, +S2. absent: Tachycardia - GI/Abdominal Exam GI & Abdominal Exam: Soft. absent: Tenderness - Exam External exam: absent: Ecchymosis, Erythema - Extremities Exam Extremities exam: normal capillary refill, pedal pulses present - Neurological Exam Neurological exam: Alert, Oriented x3 - Skin Skin Exam: Intact, Normal Color Discharge Plan - Follow Up Plan Condition: FAIR Disposition: HOME/ ROUTINE Instructions: Asthma (GEN), COPD (Chronic Obstructive Pulmonary Disease) (DC), Reactive Airways Disease (DC) Additional Instructions: Patient is discharged home. Pt is to take the new prescriptions as directed, levaquin 750mg once daily by mouth for two days, solumedrol dose pack and ventolin. Please follow-up with PMD of choice within 1 week. You are informed to get any partners treated for trichomoniasis. For worsening of symptoms, return to the emergency department. Referrals: [facility] at [facility] [place] [Outside] PCP,NO [Primary Care Provider] - <Karolina Watson - Last Filed: 08/08/16 16:36> Provider - Provider Date of Admission: 07/25/16 17:08 Attending physician: Karolina Watson MD Primary care physician: JEIMY PRIMARY CARE PROVIDER Hospital Course - Lab Results Lab Results: Micro Results 07/25/16 18:00 Urine,Clean Catch Urine Culture - Final Gram Positive Cocci Most Recent Lab Values WBC 17.2 10^3/ul (4.5-11.0) H 07/28/16 07:30 RBC 4.30 10^6/uL (3.5-6.1) 07/28/16 07:30 Hgb 15.6 gm/dL (12.0-16.0) 07/28/16 07:30 Hct 44.8 % (36.0-48.0) 07/28/16 07:30 MCV 104.2 fL (80.0-105.0) 07/28/16 07:30 MCH 36.3 pg (25.0-35.0) H 07/28/16 07:30 MCHC 34.8 g/dl (31.0-37.0) 07/28/16 07:30 RDW 13.6 % (11.5-14.5) 07/28/16 07:30 Plt Count 323 10^3/uL (120.0-450.0) 07/28/16 07:30 MPV 9.8 fl (7.0-11.0) 07/28/16 07:30 Gran % 82.7 % (50.0-68.0) H 07/28/16 07:30 Lymph % (Auto) 11.9 % (22.0-35.0) L 07/28/16 07:30 Allen % (Auto) 5.3 % (1.0-6.0) 07/28/16 07:30 Eos % (Auto) 0.0 % (1.5-5.0) L 07/28/16 07:30 Baso % (Auto) 0.1 % (0.0-3.0) 07/28/16 07:30 Gran # 14.23 (1.4-6.5) H 07/28/16 07:30 Lymph # 2.0 (1.2-3.4) 07/28/16 07:30 Allen # 0.9 (0.1-0.6) H 07/28/16 07:30 Eos # 0.0 (0.0-0.7) 07/28/16 07:30 Baso # 0.01 K/mm3 (0.0-2.0) 07/28/16 07:30 PT 10.1 Seconds (9.9-11.8) 07/25/16 16:00 INR 0.94 (0.93-1.08) 07/25/16 16:00 APTT 24.2 Seconds (23.7-30.8) 07/25/16 16:00 Sodium 133 mmol/L (132-148) 07/28/16 07:30 Potassium 4.1 mmol/L (3.6-5.0) 07/28/16 07:30 Chloride 95 mmol/L (98-107) L 07/28/16 07:30 Carbon Dioxide 33 mmol/L (21-33) 07/28/16 07:30 Anion Gap 9 (10-20) L 07/28/16 07:30 BUN 20 mg/dL (7-21) 07/28/16 07:30 Creatinine 0.7 mg/dL (0.5-1.4) 07/28/16 07:30 Est GFR ( Amer) > 60 07/28/16 07:30 Est GFR (Non-Af Amer) > 60 07/28/16 07:30 POC Glucose (mg/dL) 152 mg/dL (65-110) H 07/27/16 11:17 Random Glucose 86 mg/dL (70-110) 07/28/16 07:30 Calcium 8.3 mg/dL (8.4-10.5) L 07/28/16 07:30 Magnesium 2.0 mg/dL (1.7-2.2) 07/28/16 07:30 Total Bilirubin 1.0 mg/dL (0.2-1.3) 07/28/16 07:30 AST 35 U/L (15-39) 07/28/16 07:30 ALT 58 U/L (7-56) H 07/28/16 07:30 Alkaline Phosphatase 70 U/L (38-133) 07/28/16 07:30 Lactate Dehydrogenase 532 U/L (333-699) 07/26/16 07:00 Total Creatine Kinase 21 U/L (35-230) L 07/26/16 07:00 Troponin I 0.02 ng/mL D 07/26/16 07:00 Total Protein 6.7 g/dL (5.8-8.3) 07/28/16 07:30 Albumin 3.4 g/dL (3.0-4.8) 07/28/16 07:30 Globulin 3.3 gm/dL 07/28/16 07:30 Albumin/Globulin Ratio 1.0 (1.1-1.8) L 07/28/16 07:30 Urine Color Yellow (YELLOW) 07/25/16 16:35 Urine Appearance Clear (CLEAR) 07/25/16 16:35 Urine pH 6.5 (4.7-8.0) 07/25/16 16:35 Ur Specific Dunlo <= 1.005 (1.005-1.035) 07/25/16 16:35 Urine Protein Negative mg/dL (<30 mg/dL) 07/25/16 16:35 Urine Glucose (UA) Negative mg/dL (NEGATIVE) 07/25/16 16:35 Urine Ketones Negative mg/dL (NEGATIVE) 07/25/16 16:35 Urine Blood Negative (NEGATIVE) 07/25/16 16:35 Urine Nitrate Negative (NEGATIVE) 07/25/16 16:35 Urine Bilirubin Negative (NEGATIVE) 07/25/16 16:35 Urine Urobilinogen 1.0 E.U./dL (<1 E.U./dL) H 07/25/16 16:35 Ur Leukocyte Esterase Trace Erik/uL (NEGATIVE) H 07/25/16 16:35 Urine RBC Negative /hpf (0-2) 07/25/16 16:35 Urine WBC 1 - 3 /hpf (0-6) 07/25/16 16:35 Ur Epithelial Cells 6 - 8 /hpf (0-5) 07/25/16 16:35 Urine Bacteria Small (NEG) 07/25/16 16:35 Urine Other Trichomonas 07/25/16 16:35 Urine HCG, Qual Negative (NEGATIVE) 07/25/16 16:35 Urine Opiates Screen Negative (NEGATIVE) 07/25/16 18:00 Urine Methadone Screen Negative (NEGATIVE) 07/25/16 18:00 Ur Barbiturates Screen Negative (NEGATIVE) 07/25/16 18:00 Ur Phencyclidine Scrn Negative (NEGATIVE) 07/25/16 18:00 Ur Amphetamines Screen Negative (NEGATIVE) 07/25/16 18:00 U Benzodiazepines Scrn Positive (NEGATIVE) H 07/25/16 18:00 U Oth Cocaine Metabols Negative (NEGATIVE) 07/25/16 18:00 U Cannabinoids Screen Negative (NEGATIVE) 07/25/16 18:00 Alcohol, Quantitative 260 mg/dL (0-10) H 07/25/16 16:00 Influenza Typ A,B (EIA) Negative for flu a/b (NEGATIVE) 07/25/16 16:30 Attending/Attestation - Attestation I have personally seen and examined this patient.: Yes I have fully participated in the care of the patient.: Yes I have reviewed all pertinent clinical information, including history, physical exam and plan: Yes Notes (Text): 08/08/16 16:31 45 year old female with past medical history of asthma, alcohol abuse, chronic smoker, hepatitis C and history of iv drug abuse who presented with shortness of breath secondary to asthma exacerbation. She has multiple admissions for asthma/ETOH, most recently discharged last week. However, unfortunately she continues to smoke 1-2 packs daily and drink daily. Her wheezing improved with steroids which was tapered. She was also on duonebs and antibiotics. She was counselled on risks of continued tobacco abuse. Serial cardiac enzymes were negative and ACS was ruled out. Her chest pain resolved. She was seen by cardiology. She is on multivitamin, folic acid and thiamine for history of alcohol abuse. She was on tapering librium and ativan prn for alcohol withdrawal symptoms. She was counselled on alcohol abstinence. She is discharged to follow up with pmd. Discharged on tapering steroids. Counselled on smoking and alcohol cessation. She had +trichomonas in UA and was treated prior to discharge. Karolina Watson MD Hospitalist.
== END 2016-07-28 14:27 | disposition home or self-care (01) | DRG 96 ==
LOC: ED 15:35 → ERH 17:08 → 2RNO 07-26 00:06 → 3RNO 07-26 15:48
PROVIDERS: ADMIT Internal Medicine; ATTEND Internal Medicine
DX: J45.902 Unspecified asthma with status asthmaticus (principal); K74.60 Unspecified cirrhosis of liver; J44.1 Chronic obstructive pulmonary disease with (acute) exacerbation; B18.2 Chronic viral hepatitis C; L03.90 Cellulitis, unspecified; E87.6 Hypokalemia; I10 Essential (primary) hypertension; R00.0 Tachycardia, unspecified; D72.829 Elevated white blood cell count, unspecified; T38.0X5A Adverse effect of glucocorticoids and synthetic analogues, initial encounter; F17.200 Nicotine dependence, unspecified, uncomplicated; Y90.8 Blood alcohol level of 240 mg/100 ml or more; Z59.0 Homelessness; Z90.49 Acquired absence of other specified parts of digestive tract; R40.2412 Glasgow coma scale score 13-15, at arrival to emergency department; R25.1 Tremor, unspecified; Z87.898 Personal history of other specified conditions; F10.10 Alcohol abuse, uncomplicated; R07.89 Other chest pain

== ENCOUNTER 2016-08-03 23:13 | Emergency (ER) | payer MEDICAID ==
[2016-08-03 23:22] VITALS: BMI 27.8
--- NOTE | 2016-08-03 23:29 | ED PDOC ---
Arrival/HPI - General Chief Complaint: Substance Abuse Time Seen by Provider: 08/03/16 23:20 Historian: Patient, EMS, Other (Friend) - History of Present Illness Narrative History of Present Illness (Text): 08/03/16 23:29 Fani Chambers is a 45 year old female, whose past medical history includes asthma, Hepatitis C, alcohol abuse, IV and drug abuse, who presents to the Emergency department brought in by EMS accompanied by friend status post heroin overdose prior to arrival. Friend states patient was found in the bathroom unconscious after using heroin. Patient was given Narcan in the field by EMS and is currently awake, alert, and oriented x3. Patient states she snorted 1 bag of heroin and admits to being a recreational heroin user. Patient states she feels completely fine and does not understand why she is in the hospital. Patient denies any suicidal ideation, homicidal ideation, fever, chills, chest pain, shortness of breath, nausea, vomiting, diarrhea, urinary symptoms, back pain, neck pain, headache, dizziness, or any other complaints. Time/Duration: Other (tonight) Symptom Onset: Sudden Symptom Course: Resolved Activities at Onset: Light Context: Home Past Medical History - Provider Review Nursing Documentation Reviewed: Yes - Infectious Disease Hx of Infectious Diseases: None - Tetanus Immunization Tetanus Immunization: Unknown - Cardiac Hx Hypertension: Yes Other/Comment: cellulitis - Pulmonary Hx Asthma: Yes Hx Bronchitis: Yes Hx Chronic Obstructive Pulmonary Disease (COPD): Yes Hx Emphysema: Yes Other/Comment: pneumothorax left chest tube 15 yrs ago, pt needed lung sx after removal of chest tube lung "tore apart" has been having chronic pain to that area intermittent ever since as per pt - Neurological Hx Neurological Disorder: No - HEENT Hx HEENT Disorder: No - Renal Hx Renal Disorder: No - Endocrine/Metabolic Hx Endocrine Disorders: No - Hematological/Oncological Hx Hepatitis C: Yes - Integumentary Hx Dermatological Disorder: Yes Other/Comment: cellulitis, flat red rash around neck and chest, cyst to upper back, multiple skin discolorations to b/l arms, poor hygeine, dirty and foul smelling, has not showered in 4 days, homeless as per pt - Musculoskeletal/Rheumatological Hx Falls: No - Gastrointestinal Hx Gastrointestinal Disorders: No - Genitourinary/Gynecological Hx Genitourinary Disorders: No - Psychiatric Hx Anxiety: Yes Hx Substance Use: Yes (quit heroine 2 wks ago/quit meth yrs ago) Other/Comment: stopped heroin use 2 wks ago, quit methadone "yrs ago", drinks alcohol called 4 frances about 9 drinks a day, smokes more that 10 cigs a day, hasn 't showered in 4 days homeless as per pt - Surgical History Hx Appendectomy: Yes Other/Comment: As per patient, she has had "lung surgery". - Anesthesia Hx Anesthesia: Yes Hx Anesthesia Reactions: No Hx Malignant Hyperthermia: No - Suicidal Assessment Feels Threatened In Home Enviroment: No Family/Social History - Physician Review Nursing Documentation Reviewed: Yes Family/Social History: No Known Family HX Smoking Status: Heavy Smoker > 10 Cigarettes Daily Hx Alcohol Use: Yes (daily 4 frances 9 drinks) Hx Substance Use: Yes (quit heroine 2 wks ago/quit meth yrs ago) Substance used: HEROINE Hx Substance Use Treatment: Yes Allergies/Home Meds Allergies/Adverse Reactions: Allergies No Known Allergies Allergy (Verified 07/16/16 21:05) Review of Systems - Physician Review All systems were reviewed & negative as marked: Yes - Review of Systems Constitutional: Normal. absent: Fevers Eyes: Normal ENT: Normal Respiratory: Normal. absent: SOB, Cough Cardiovascular: Normal. absent: Chest Pain Gastrointestinal: Normal. absent: Abdominal Pain, Diarrhea, Nausea, Vomiting Genitourinary Female: Normal. absent: Dysuria, Frequency, Hematuria, Urine Output Changes Musculoskeletal: Normal. absent: Back Pain, Neck Pain Skin: Normal. absent: Rash Neurological: Normal. absent: Headache, Dizziness Endocrine: Normal Hemo/Lymphatic: Normal Psychiatric: Normal. absent: Depression, Suicidal Ideation Physical Exam Vital Signs Reviewed: Yes Vital Signs Temp Pulse Resp BP Pulse Ox 08/04/16 00:15 100 H 18 110/75 95 08/03/16 23:34 99.0 F 121 H 16 119/86 90 L Temperature: Afebrile Blood Pressure: Normal Pulse: Regular Respiratory Rate: Normal Appearance: Positive for: Well-Appearing, Non-Toxic, Comfortable Pain Distress: None Mental Status: Positive for: Alert and Oriented X 3 - Systems Exam Head: Present: Atraumatic, Normocephalic Pupils: Present: PERRL Extroacular Muscles: Present: EOMI Conjunctiva: Present: Normal Mouth: Present: Moist Mucous Membranes Neck: Present: Normal Range of Motion Respiratory/Chest: Present: Clear to Auscultation, Good Air Exchange. No: Respiratory Distress, Accessory Muscle Use Cardiovascular: Present: Regular Rate and Rhythm, Normal S1, S2. No: Murmurs Abdomen: Present: Normal Bowel Sounds. No: Tenderness, Distention, Peritoneal Signs Back: Present: Normal Inspection Upper Extremity: Present: Normal Inspection. No: Cyanosis, Edema Lower Extremity: Present: Normal Inspection. No: Edema Neurological: Present: GCS=15, CN II-XII Intact, Speech Normal Skin: Present: Warm, Dry, Normal Color. 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 Differential Diagnosis include but are not limited to: overdose vs. substance abuse Plan: -- Reassess and disposition Prior Visits: Notes and results from previous visits were reviewed. On 07/25/2016, pt was seen in the Emergency department for asthma exacerbation, shortness of breath, and productive cough. Pt was admitted to the hospital for further evaluation. Progress Notes: Pt is coherent, awake, alert, and oriented x3. Pt states states she feels completely fine and wants to go home. Pt states she does not want any blood work or further evaluation. 08/04/16 00:36 Notified by RN, pt eloped without announcing. - Lab Interpretations Lab Results: Lab Results 08/03/16 23:29: POC Glucose (mg/dL) 70 - Scribe Statement The provider has reviewed the documentation as recorded by the Jc Rosales Provider Attestation: All medical record entries made by the Scribclive were at my direction and personally dictated by me. I have reviewed the chart and agree that the record accurately reflects my personal performance of the history, physical exam, medical decision making, and the department course for this patient. I have also personally directed, reviewed, and agree with the discharge instructions and disposition. Disposition/Present on Arrival - Present on Arrival Any Indicators Present on Arrival: No History of DVT/PE: No History of Uncontrolled Diabetes: No Urinary Catheter: No History of Decub. Ulcer: No History Surgical Site Infection Following: None - Disposition Have Diagnosis and Disposition been Completed?: Yes Diagnosis: Heroin abuse Disposition: ELOPEMENT - ER ONLY Disposition Time: 00:45 Patient Problems: Current Active Problems Problem Status Diagnosed Cirrhosis and chronic liver disease Active Elevated blood pressure reading without diagnosis of hypertension Active Chronic hepatitis C Acute Chronic obstructive lung disease Acute Smoker Chronic Asthmatic bronchitis Resolved Condition: STABLE
[2016-08-03 23:35] VITALS: TEMP 99
[2016-08-04 00:41] VITALS: BP 110/75; PULSE 100; RESP 18; O2SAT 95
== END 2016-08-04 00:39 | disposition left against medical advice (07) ==
LOC: ED 23:13
DX: F11.10 Opioid abuse, uncomplicated (principal); F17.210 Nicotine dependence, cigarettes, uncomplicated; I10 Essential (primary) hypertension

== ENCOUNTER 2016-08-08 01:36 | Emergency (ER) | payer MEDICAID ==
[2016-08-08 01:36] VITALS: BMI 28.3
[2016-08-08 01:50] VITALS: TEMP 97.4
[2016-08-08] MEDS ORDERED: Albuterol-Ipratrop 3 mg / 0.5 (3 ml) UD ONE ×2 (01:52→06:43)
--- NOTE | 2016-08-08 01:54 | ED PDOC ---
Arrival/HPI - General Chief Complaint: Shortness Of Breath Time Seen by Provider: 08/08/16 01:49 - History of Present Illness Narrative History of Present Illness (Text): 08/08/16 01:53 Fani Chambers is a 45 year old female smoker, whose past medical history includes asthma, Hepatitis C, alcohol abuse, IV and drug abuse,, who presents to the ED complaining of progressively worsening shortness of breath tonight. Patient states she had nebulizer treatments at home but denies any relief. Patient denies any fever, chills, chest pain, nausea, vomiting, diarrhea, urinary symptoms, back pain, neck pain, headache, dizziness, or any other complaints. Time/Duration: Other (tonight) Symptom Onset: Gradual Symptom Course: Unchanged Activities at Onset: Rest Context: Home Past Medical History - Provider Review Nursing Documentation Reviewed: Yes - Infectious Disease Hx of Infectious Diseases: None - Tetanus Immunization Tetanus Immunization: Unknown - Cardiac Hx Hypertension: Yes Other/Comment: cellulitis - Pulmonary Hx Asthma: Yes Hx Bronchitis: Yes Hx Chronic Obstructive Pulmonary Disease (COPD): Yes Hx Emphysema: Yes Other/Comment: pneumothorax left chest tube 15 yrs ago, pt needed lung sx after removal of chest tube lung "tore apart" has been having chronic pain to that area intermittent ever since as per pt - Neurological Hx Neurological Disorder: No - HEENT Hx HEENT Disorder: No - Renal Hx Renal Disorder: No - Endocrine/Metabolic Hx Endocrine Disorders: No - Hematological/Oncological Hx Hepatitis C: Yes - Integumentary Hx Dermatological Disorder: Yes Other/Comment: cellulitis, flat red rash around neck and chest, cyst to upper back, multiple skin discolorations to b/l arms, poor hygeine, dirty and foul smelling, has not showered in 4 days, homeless as per pt - Musculoskeletal/Rheumatological Hx Falls: No - Gastrointestinal Hx Gastrointestinal Disorders: No - Genitourinary/Gynecological Hx Genitourinary Disorders: No - Psychiatric Hx Anxiety: Yes Hx Substance Use: Yes (quit heroine 2 wks ago/quit meth yrs ago) Other/Comment: stopped heroin use 2 wks ago, quit methadone "yrs ago", drinks alcohol called 4 frances about 9 drinks a day, smokes more that 10 cigs a day, hasn 't showered in 4 days homeless as per pt - Surgical History Hx Appendectomy: Yes Other/Comment: As per patient, she has had "lung surgery". - Anesthesia Hx Anesthesia: Yes Hx Anesthesia Reactions: No Hx Malignant Hyperthermia: No - Suicidal Assessment Feels Threatened In Home Enviroment: No Family/Social History - Physician Review Nursing Documentation Reviewed: Yes Family/Social History: No Known Family HX Smoking Status: Heavy Smoker > 10 Cigarettes Daily Hx Alcohol Use: Yes (daily 4 frances 9 drinks) Hx Substance Use: Yes (quit heroine 2 wks ago/quit meth yrs ago) Substance used: HEROINE Hx Substance Use Treatment: Yes Allergies/Home Meds Allergies/Adverse Reactions: Allergies No Known Allergies Allergy (Verified 08/06/16 17:01) Home Medications: Home Meds Medication Instructions Recorded Confirmed No Known Home Med 08/06/16 08/08/16 Review of Systems - Physician Review All systems were reviewed & negative as marked: Yes - Review of Systems Constitutional: Normal. absent: Fevers Eyes: Normal ENT: Normal Respiratory: SOB. absent: Cough Cardiovascular: Normal. absent: Chest Pain Gastrointestinal: Normal. absent: Abdominal Pain, Diarrhea, Nausea, Vomiting Genitourinary Female: Normal. absent: Dysuria, Frequency, Hematuria, Urine Output Changes Musculoskeletal: Normal. absent: Back Pain, Neck Pain Skin: Normal. absent: Rash Neurological: Normal. absent: Headache, Dizziness Endocrine: Normal Hemo/Lymphatic: Normal Psychiatric: Normal Physical Exam Vital Signs Reviewed: Yes Vital Signs Temp Pulse Resp BP Pulse Ox 08/08/16 06:45 93 H 20 112/76 96 08/08/16 06:00 22 08/08/16 03:36 88 22 95 08/08/16 01:50 97.4 F L 08/08/16 01:47 90 18 105/71 97 Temperature: Afebrile Blood Pressure: Normal Pulse: Regular Respiratory Rate: Normal Appearance: Positive for: Well-Appearing, Non-Toxic, Comfortable Pain Distress: None Mental Status: Positive for: Alert and Oriented X 3 - Systems Exam Head: Present: Atraumatic, Normocephalic Pupils: Present: PERRL Extroacular Muscles: Present: EOMI Conjunctiva: Present: Normal Mouth: Present: Moist Mucous Membranes Neck: Present: Normal Range of Motion Respiratory/Chest: Present: Wheezes. No: Respiratory Distress, Accessory Muscle Use Cardiovascular: Present: Regular Rate and Rhythm, Normal S1, S2. No: Murmurs Abdomen: Present: Normal Bowel Sounds. No: Tenderness, Distention, Peritoneal Signs Back: Present: Normal Inspection Upper Extremity: Present: Normal Inspection. No: Cyanosis, Edema Lower Extremity: Present: Normal Inspection. No: Edema Neurological: Present: GCS=15, CN II-XII Intact, Speech Normal Skin: Present: Warm, Dry, Normal Color. No: Rashes Psychiatric: Present: Alert, Oriented x 3, Normal Insight, Normal Concentration Medical Decision Making ED Course and Treatment: 08/08/16 01:53 Impression: 45 year old female complaining of shortness of breath tonight. Differential Diagnosis include but are not limited to: asthma exacerbation Plan: -- Duoneb -- Reassess and disposition Prior Visits: Notes and results from previous visits were reviewed. Progress Notes: 08/08/16 06:44 On re-evaluation, pt still wheezing. Case discussed with house physician, will admit pt to hospitalist service. - RAD Interpretation Radiology Orders: 08/08/16 06:42 CHEST PORTABLE [RAD] Stat - Medication Orders Current Medication Orders: Discontinued Medications Albuterol/Ipratropium (Duoneb 3 Mg/0.5 Mg (3 Ml) Ud) Confirm Administered Dose 3 ml .ROUTE .STK-MED ONE Stop: 08/08/16 01:53 Last Admin: 08/08/16 02:08 Dose: 3 ML Albuterol/Ipratropium (Duoneb 3 Mg/0.5 Mg (3 Ml) Ud) 3 ml IH ONCE STA Stop: 08/08/16 02:44 Last Admin: 08/08/16 03:34 Dose: 3 ML Albuterol/Ipratropium (Duoneb 3 Mg/0.5 Mg (3 Ml) Ud) 3 ml IH ONCE STA Stop: 08/08/16 06:42 Last Admin: 08/08/16 06:48 Dose: 3 ML Albuterol/Ipratropium (Duoneb 3 Mg/0.5 Mg (3 Ml) Ud) Confirm Administered Dose 6 ml .ROUTE .STK-MED ONE Stop: 08/08/16 06:44 Last Admin: 08/08/16 07:13 Dose: 6 ML Methylprednisolone (Solu-Medrol) 125 mg IVP ONCE ONE Stop: 08/08/16 06:42 Last Admin: 08/08/16 07:13 Dose: 125 MG IVP Administration Document 08/08/16 07:13 SUZETTE (Rec: 08/08/16 07:13 SUZETTE [facility] [id number]) Charges for Administration # of IVP Administrations 1 - Scribe Statement The provider has reviewed the documentation as recorded by the Scribe Radha Rosales Provider Attestation: All medical record entries made by the Scribe were at my direction and personally dictated by me. I have reviewed the chart and agree that the record accurately reflects my personal performance of the history, physical exam, medical decision making, and the department course for this patient. I have also personally directed, reviewed, and agree with the discharge instructions and disposition. Disposition/Present on Arrival - Present on Arrival Any Indicators Present on Arrival: No History of DVT/PE: No History of Uncontrolled Diabetes: No Urinary Catheter: No History of Decub. Ulcer: No History Surgical Site Infection Following: None - Disposition Have Diagnosis and Disposition been Completed?: Yes Diagnosis: COPD exacerbation Disposition: HOSPITALIZED Disposition Time: 07:05 Patient Plan: Observation Patient Problems: Current Active Problems Problem Status Diagnosed Cirrhosis and chronic liver disease Active Elevated blood pressure reading without diagnosis of hypertension Active Chronic hepatitis C Acute Chronic obstructive lung disease Acute Smoker Chronic Asthmatic bronchitis Resolved Condition: STABLE
[2016-08-08] MEDS ORDERED: Albuterol-Ipratrop 3 mg / 0.5 (3 ml) UD IH STA ×2 (02:43→06:41)
[2016-08-08 07:11] VITALS: BP 112/76; PULSE 93; RESP 20; O2SAT 96
[2016-08-08 07:31] LABS: HEMATOCRIT 40.1 % (36.0-48.0); MEAN CELL VOLUME 106.4 fL (80.0-105.0); MEAN CORPUSCULAR HEMOGLOBIN 35.5 pg (25.0-35.0); MEAN CORPUSCULAR HGB CONC 33.4 g/dl (31.0-37.0); MEAN PLATELET VOLUME 9.9 fl (7.0-11.0); RED CELL DISTRIBUTION WIDTH 14.3 % (11.5-14.5); WHITE BLOOD COUNT 11.9 10^3/ul (4.5-11.0)
[2016-08-08 07:42] LABS: ALB/GLOB RATIO 1.1 (1.1-1.8); ALKALINE PHOSPHATASE 70 U/L (38-133); ALT/SGPT 75 U/L (7-56); AST/SGOT 68 U/L (15-39); BILIRUBIN,TOTAL 0.5 mg/dL (0.2-1.3); BLOOD UREA NITROGEN 13 mg/dL (7-21); CALCIUM 8.2 mg/dL (8.4-10.5); CARBON DIOXIDE 31 mmol/L (21-33); CHLORIDE 104 mmol/L (95-110); GFR AFRICAN-AMERICAN > 60; GLUCOSE,RANDOM 85 mg/dL (70-110); POTASSIUM 3.3 mmol/L (3.6-5.0); SODIUM 145 mmol/L (132-148); TOTAL PROTEIN 6.5 g/dL (5.8-8.3)
--- NOTE | 2016-08-08 08:40 | RAD ---
HISTORY: sob COMPARISON: 08/05/2016 FINDINGS: LUNGS: No active pulmonary disease. PLEURA: No significant pleural effusion identified, no pneumothorax apparent. CARDIOVASCULAR: Normal. OSSEOUS STRUCTURES: No significant abnormalities. VISUALIZED UPPER ABDOMEN: Normal. OTHER FINDINGS: None. IMPRESSION: No active disease.
--- NOTE | 2016-08-08 08:59 | CP.PCM.HP ---
<Kalpana Reynolds - Last Filed: 08/08/16 09:09> History of Present Illness - History of Present Illness History of Present Illness: 45 year old female with PMHx of asthma, hep C, ETOH abuse, IV drug use presents for shortness of breath and cough. Pt was discharged from hospital recently after coming in for similar complaints. She was discharged with 4 medications: Pulmicort, Albuterol, Robitussin and prednisilone. She states that she took these medications like prescribed. Patient states her symptoms of shortness of breath and cough have been on going for a year now. However, she came in today because she brought in her partner to ED and developed worsening shortness of breath. Pt is homeless and continues to smoke 1-2 ppd of cigarettes. She also drinks daily and last drink was a few hours ago. Patient c/o intermittent CP left sided that is sharp in nature. She also c/o of shortness of breath. She states that she uses her rescue inhaler daily and is woken up almost every day with shortness of breath. Pt does c/o of tremors in her hands. Patient denies having any fevers or chills. She has productive cough with yellowish sputum. Denies having any abd pain, N/V/D/C, diaphoresis. Pt does c/o of LE swelling. She is tolerating diet. While in the ED pt insists on leaving the hospital to smoke cigarette. Pt signed AMA while in ED. PMHx: as stated above Sx; appendectomy, L lung sx, L eye sx NKDA Meds: see MAR Social: smokes 1-2 ppd x 20 yrs; ETOH use daily with liquor. Last drink was few hours ago; hx of IV heroin use Leaving Against Medical Advice (AMA): The patient is choosing to leave against medical advice. I have personally explained to the patient that choosing to do so may result in permanent bodily harm or . I have discussed at great length that without further evaluation and monitoring there may be unforeseen circumstances and/or deterioration causing permanent bodily harm or as a result of their choice. The patient is alert, oriented, and shows the mental capacity to make clear decisions regarding the patients health care at this time. The patient continues to wish to leave against medical advice. In light of the patients decision to leave against medical advice, follow-up has been arranged and the patient is aware of the importance to following up as instructed. The patient has been advised that they should return to the emergency room immediately if they change their mind at any time, or if their condition begins to change or worsen in any way. Patient did not wish to wait for blood work to comeback and understands the risks of incomplete evaluation. Patient had left the ED AMA prior to chemistry coming back. Hypokalemia was noted, patient was not treated for this as she left ER AMA prior to labs being available. She reported understanding of risks of leaving AMA. Present on Admission - Present on Admission Any Indicators Present on Admission: No Review of Systems - Review of Systems Review of Systems: See HPI Past Patient History - Infectious Disease Hx of Infectious Diseases: None - Tetanus Immunizations Tetanus Immunization: Unknown - Past Medical History & Family History Past Medical History?: Yes - Past Social History Smoking Status: Heavy Smoker > 10 Cigarettes Daily - CARDIAC Hx Hypertension: Yes Other/Comment: cellulitis - PULMONARY Hx Asthma: Yes Hx Bronchitis: Yes Hx Chronic Obstructive Pulmonary Disease (COPD): Yes Hx Emphysema: Yes Other/Comment: pneumothorax left chest tube 15 yrs ago, pt needed lung sx after removal of chest tube lung "tore apart" has been having chronic pain to that area intermittent ever since as per pt - NEUROLOGICAL Hx Neurological Disorder: No - HEENT Hx HEENT Problems: No - RENAL Hx Chronic Kidney Disease: No - ENDOCRINE/METABOLIC Hx Endocrine Disorders: No - HEMATOLOGICAL/ONCOLOGICAL Hx Hepatitis C: Yes - INTEGUMENTARY Hx Dermatological Problems: Yes Other/Comment: cellulitis, flat red rash around neck and chest, cyst to upper back, multiple skin discolorations to b/l arms, poor hygeine, dirty and foul smelling, has not showered in 4 days, homeless as per pt - MUSCULOSKELETAL/RHEUMATOLOGICAL Hx Falls: No - GASTROINTESTINAL Hx Gastrointestinal Disorders: No - GENITOURINARY/GYNECOLOGICAL Hx Genitourinary Disorders: No - PSYCHIATRIC Hx Anxiety: Yes Hx Substance Use: Yes (quit heroine 2 wks ago/quit meth yrs ago) Other/Comment: stopped heroin use 2 wks ago, quit methadone "yrs ago", drinks alcohol called 4 frances about 9 drinks a day, smokes more that 10 cigs a day, hasn 't showered in 4 days homeless as per pt - SURGICAL HISTORY Hx Appendectomy: Yes Other/Comment: As per patient, she has had "lung surgery". - ANESTHESIA Hx Anesthesia: Yes Hx Anesthesia Reactions: No Hx Malignant Hyperthermia: No Meds Allergies/Adverse Reactions: Allergies Allergy/AdvReac Type Severity Reaction Status Date / Time No Known Allergies Allergy Verified 08/06/16 17:01 Physical Exam - Constitutional Appears: Non-toxic, Chronically Ill - Head Exam Head Exam: ATRAUMATIC, NORMAL INSPECTION, NORMOCEPHALIC - Eye Exam Eye Exam: EOMI, Normal appearance, PERRL Pupil Exam: NORMAL ACCOMODATION, PERRL - ENT Exam ENT Exam: Mucous Membranes Moist, Normal Exam - Neck Exam Neck exam: Positive for: Full Rom, Normal Inspection - Respiratory Exam Respiratory Exam: Prolonged Expiratory Phase. absent: Chest Wall Tenderness, Rales, Rhonchi, Wheezes, Stridor, NORMAL BREATHING PATTERN - Cardiovascular Exam Cardiovascular Exam: REGULAR RHYTHM - GI/Abdominal Exam GI & Abdominal Exam: Soft. absent: Distended, Firm, Tenderness - Extremities Exam Extremities exam: Positive for: normal inspection - Back Exam Back exam: NORMAL INSPECTION - Neurological Exam Neurological exam: Alert, CN II-XII Intact, Normal Gait, Oriented x3 - Skin Skin Exam: Dry, Intact, Warm Results - Vital Signs Recent Vital Signs: Last Vital Signs Temp 97.4 F L 08/08/16 01:50 Pulse 93 H 08/08/16 06:45 Resp 20 08/08/16 06:45 BP 112/76 08/08/16 06:45 Pulse Ox 96 08/08/16 06:45 - Labs Result Diagrams: 08/08/16 06:42 08/08/16 06:42 Assessment & Plan - Assessment and Plan (Free Text) Assessment: 45 y/o female with PMHX of COPD, hep C, ETOH abuse, hx of IV drug abuse is admitted of acute COPD exacerbation. Initial CXR is negative and unchanged from previous study. Pt is afebrile and WBC count is 11.9. Leukocytosis is likely 2/2 steroid use. Pt also has history of ETOH abuse. Her ETOH level was 150. Plan: 1. COPD exacerbation -Duoneb 3 mg q4 - Solumedrol IV 40 mg Q12 - Levaquin 750 mg PO q24 - Robitussin - NC prn to maintain o2 >90% 2. ETOH abuse - CIWA protocol - Librium 25 mg PO q8 will taper - Ativan 2 mg q3 prn IV - Admit to tele 3. Hypokelemia - Replaced with 40 po kdur - Will continue to monitor and replace as needed 4. Prophylaxis - Protonix - heparin - scds Case discussed with attending Dr. Watson <Karolina Watson - Last Filed: 08/08/16 16:30> Results - Vital Signs Recent Vital Signs: Last Vital Signs Temp 97.4 F L 08/08/16 01:50 Pulse 93 H 08/08/16 06:45 Resp 20 08/08/16 06:45 BP 112/76 08/08/16 06:45 Pulse Ox 96 08/08/16 06:45 - Labs Result Diagrams: 08/08/16 06:42 08/08/16 06:42 Attending/Attestation - Attestation I have personally seen and examined this patient.: Yes I have fully participated in the care of the patient.: Yes I have reviewed all pertinent clinical information: Yes Notes (Text): 08/08/16 16:24 45 year old homeless female with past medical history of COPD, hepatitis C, alcohol abuse and substance abuse who presented with shortness of breath secondary to COPD exacerbation. She also admitted to ETOH use (last drink yesterday). She was to be admitted for COPD exacerbation. However in the emergency room she wanted to step outside to smoke. She was counselled on effects of tobacco use, especially considering she is being admitted for frequent exacerbations within the past few weeks. She was counselled on alcohol abstinence. She was explained the risks of signing out against medical advice which she acknowledged. However she signed out AMA. Labs were still pending at time of admission/AMA. Discharge Diagnoses: 1) COPD exacerbation 2) Alcohol abuse 3) Tobacco abuse 4) AMA total d/c time : 35 mins Karolina Watson MD Hospitalist.
[2016-08-08] MEDS ORDERED: Albuterol-Ipratrop 3 mg / 0.5 (3 ml) UD IH PRN (09:13)
[2016-08-08] MEDS ORDERED: guaiFENesin 100 mg/5 ml Syrup UD PO PRN (09:15)
[2016-08-08] MEDS ORDERED: MethylPREDNISolone 40 mg Vial IVP SCH (10:00)
--- NOTE | 2016-08-08 12:43 | CARD ---
APPROVED REPORT EKG Measurement Heart [id number] <Conclusion> Sinus tachycardia T Inversions V1-V3.
== END 2016-08-08 07:30 | disposition left against medical advice (07) ==
LOC: ED 01:36 → ERH 07:27 → UNDOADMOB 07:27
DX: J44.1 Chronic obstructive pulmonary disease with (acute) exacerbation (principal); I10 Essential (primary) hypertension; F17.210 Nicotine dependence, cigarettes, uncomplicated
CPT/HCPCS: 71010; 80053; 80320; 85027; 93005; 96374; 99285; J2930

== ENCOUNTER 2016-08-08 23:29 | Observation (INO) | payer MEDICAID ==
[2016-08-08 23:29] VITALS: BMI 28.3
[2016-08-09] MEDS ORDERED: Albuterol-Ipratrop 3 mg / 0.5 (3 ml) UD ONE (00:06)
[2016-08-09] MEDS ORDERED: Albuterol-Ipratrop 3 mg / 0.5 (3 ml) UD IH STA ×2 (00:30→01:53)
--- NOTE | 2016-08-09 01:00 | ED PDOC ---
Arrival/HPI - General Chief Complaint: Shortness Of Breath Time Seen by Provider: 08/09/16 00:11 Historian: Patient - History of Present Illness Narrative History of Present Illness (Text): 08/09/16 00:56 Fani Chambers is a 45 year old female, whose past medical history includes asthma, COPD, alcohol abuse, and IV drug abuse, presents to the emergency department complaining of difficulty breathing and wheezing. Patient was seen yesterday at [facility] for similar complaints and was admitted to the hospital for unresolved symptoms, but patient signed out AMA soon thereafter. Patient presents tonight for similar, worsening complaints. Denies fever, chills, headache, dizziness, chest pain, nausea, vomiting, diarrhea, urinary symptoms or any other complaints at this time. Time/Duration: < week (2 days ) Symptom Onset: Gradual Symptom Course: Worsening Activities at Onset: Light Past Medical History - Provider Review Nursing Documentation Reviewed: Yes - Infectious Disease Hx of Infectious Diseases: None - Tetanus Immunization Tetanus Immunization: Unknown - Cardiac Hx Hypertension: Yes Other/Comment: cellulitis - Pulmonary Hx Asthma: Yes Hx Bronchitis: Yes Hx Chronic Obstructive Pulmonary Disease (COPD): Yes Hx Emphysema: Yes Other/Comment: pneumothorax left chest tube 15 yrs ago, pt needed lung sx after removal of chest tube lung "tore apart" has been having chronic pain to that area intermittent ever since as per pt - Neurological Hx Neurological Disorder: No - HEENT Hx HEENT Disorder: No - Renal Hx Renal Disorder: No - Endocrine/Metabolic Hx Endocrine Disorders: No - Hematological/Oncological Hx Hepatitis C: Yes - Integumentary Hx Dermatological Disorder: Yes Other/Comment: cellulitis, flat red rash around neck and chest, cyst to upper back, multiple skin discolorations to b/l arms, poor hygeine, dirty and foul smelling, has not showered in 4 days, homeless as per pt - Musculoskeletal/Rheumatological Hx Falls: No - Gastrointestinal Hx Gastrointestinal Disorders: No - Genitourinary/Gynecological Hx Genitourinary Disorders: No - Psychiatric Hx Anxiety: Yes Hx Substance Use: Yes (quit heroine 2 wks ago/quit meth yrs ago) Other/Comment: stopped heroin use 2 wks ago, quit methadone "yrs ago", drinks alcohol called 4 frances about 9 drinks a day, smokes more that 10 cigs a day, hasn 't showered in 4 days homeless as per pt - Surgical History Hx Appendectomy: Yes Other/Comment: As per patient, she has had "lung surgery". - Anesthesia Hx Anesthesia: Yes Hx Anesthesia Reactions: No Hx Malignant Hyperthermia: No - Suicidal Assessment Feels Threatened In Home Enviroment: No Family/Social History - Physician Review Nursing Documentation Reviewed: Yes Family/Social History: No Known Family HX Smoking Status: Heavy Smoker > 10 Cigarettes Daily Hx Alcohol Use: Yes (daily 4 frances 9 drinks) Hx Substance Use: Yes (quit heroine 2 wks ago/quit meth yrs ago) Substance used: HEROINE Hx Substance Use Treatment: Yes Allergies/Home Meds Allergies/Adverse Reactions: Allergies No Known Allergies Allergy (Verified 08/06/16 17:01) Home Medications: Home Meds Medication Instructions Recorded Confirmed No Known Home Med 08/06/16 08/08/16 Review of Systems - Physician Review All systems were reviewed & negative as marked: Yes - Review of Systems Constitutional: Normal. absent: Fatigue, Fevers Respiratory: SOB, Wheezing. absent: Cough, Sputum Cardiovascular: Normal. absent: Chest Pain Gastrointestinal: Normal. absent: Abdominal Pain, Diarrhea, Nausea, Vomiting Genitourinary Female: Normal Neurological: Normal. absent: Headache, Dizziness Psychiatric: Normal Physical Exam Vital Signs Reviewed: Yes Vital Signs Temp Pulse Resp BP Pulse Ox 08/09/16 00:10 98.4 F 88 18 142/74 97 Temperature: Afebrile Blood Pressure: Normal Pulse: Regular Respiratory Rate: Normal Appearance: Positive for: Non-Toxic, Comfortable, Other (disheveled appearing) Pain Distress: None Mental Status: Positive for: Alert and Oriented X 3 - Systems Exam Head: Present: Atraumatic, Normocephalic Pupils: Present: PERRL Extroacular Muscles: Present: EOMI Conjunctiva: Present: Normal Neck: Present: Normal Range of Motion Respiratory/Chest: Present: Wheezes (bilateral inspiratory and expiratory wheezing ). No: Respiratory Distress, Accessory Muscle Use Cardiovascular: Present: Regular Rate and Rhythm, Normal S1, S2. No: Murmurs Abdomen: Present: Normal Bowel Sounds. No: Tenderness, Distention, Peritoneal Signs, Rebound, Guarding Upper Extremity: Present: Normal Inspection. No: Cyanosis, Edema Lower Extremity: Present: Normal Inspection. No: Edema Neurological: Present: GCS=15, CN II-XII Intact, Speech Normal, Normal Sensory Function Skin: Present: Warm, Dry, Normal Color. No: Rashes Psychiatric: Present: Alert, Oriented x 3, Normal Insight, Normal Concentration Medical Decision Making ED Course and Treatment: 08/09/16 01:02 Impression: A 45 year old female who presents to the emergency department complaining of shortness of breath and wheezing. Plan: -- Labs -- Duoneb -- Solumedrol -- Reassess and disposition Progress Notes: 08/09/16 04:01 Case d/w abbi CHRISTENSEN/and abbi Ashley.Accepts to hospitalist service. - Lab Interpretations Lab Results: 08/09/16 02:55 08/09/16 02:55 Lab Results 08/09/16 02:55: WBC 9.1 D, RBC 3.50, Hgb 12.5, Hct 36.7, MCV 104.9, MCH 35.7 H , MCHC 34.1, RDW 13.9, Plt Count 321, MPV 9.7, Sodium 141, Potassium 2.8 L*, Chloride 100, Carbon Dioxide 32, Anion Gap 12, BUN 11, Creatinine 0.6, Est GFR ( Amer) > 60, Est GFR (Non-Af Amer) > 60, Random Glucose 167 H, Calcium 8.2 L, Total Bilirubin 0.6, AST 57 H, ALT 80 H, Alkaline Phosphatase 70, Total Protein 6.3, Albumin 3.3, Globulin 3.0, Albumin/Globulin Ratio 1.1 - Medication Orders Current Medication Orders: Discontinued Medications Albuterol/Ipratropium (Duoneb 3 Mg/0.5 Mg (3 Ml) Ud) Confirm Administered Dose 9 ml .ROUTE .STK-MED ONE Stop: 08/09/16 00:07 Last Admin: 08/09/16 03:01 Dose: Albuterol/Ipratropium (Duoneb 3 Mg/0.5 Mg (3 Ml) Ud) 3 ml IH ONCE STA Stop: 08/09/16 00:31 Last Admin: 08/09/16 01:48 Dose: 3 ML Albuterol/Ipratropium (Duoneb 3 Mg/0.5 Mg (3 Ml) Ud) 3 ml IH ONCE STA Stop: 08/09/16 01:54 Last Admin: 08/09/16 02:06 Dose: 3 ML Methylprednisolone (Solu-Medrol) 125 mg IVP ONCE ONE Stop: 08/09/16 00:31 Last Admin: 08/09/16 01:48 Dose: 125 MG IVP Administration Document 08/09/16 01:48 HUGH (Rec: 08/09/16 01:48 HUGH [id number]) Charges for Administration # of IVP Administrations 1 - Scribe Statement Corinne Foy Provider Attestation: All medical record entries made by the Scribe were at my direction and personally dictated by me. I have reviewed the chart and agree that the record accurately reflects my personal performance of the history, physical exam, medical decision making, and the department course for this patient. I have also personally directed, reviewed, and agree with the discharge instructions and disposition. Disposition/Present on Arrival - Present on Arrival Any Indicators Present on Arrival: No History of DVT/PE: No History of Uncontrolled Diabetes: No Urinary Catheter: No History of Decub. Ulcer: No History Surgical Site Infection Following: None - Disposition Have Diagnosis and Disposition been Completed?: Yes Diagnosis: COPD exacerbation, Hypokalemia Disposition: HOSPITALIZED Disposition Time: 04:00 Patient Plan: Observation Patient Problems: Current Active Problems Problem Status Diagnosed Cirrhosis and chronic liver disease Active Elevated blood pressure reading without diagnosis of hypertension Active COPD exacerbation Acute Chronic hepatitis C Acute Chronic obstructive lung disease Acute Smoker Chronic Asthmatic bronchitis Resolved Condition: STABLE
[2016-08-09 03:04] LABS: HEMATOCRIT 36.7 % (36.0-48.0); MEAN CELL VOLUME 104.9 fL (80.0-105.0); MEAN CORPUSCULAR HEMOGLOBIN 35.7 pg (25.0-35.0); MEAN CORPUSCULAR HGB CONC 34.1 g/dl (31.0-37.0); MEAN PLATELET VOLUME 9.7 fl (7.0-11.0); RED CELL DISTRIBUTION WIDTH 13.9 % (11.5-14.5); WHITE BLOOD COUNT 9.1 10^3/ul (4.5-11.0)
[2016-08-09 03:15] LABS: ALB/GLOB RATIO 1.1 (1.1-1.8); ALKALINE PHOSPHATASE 70 U/L (38-133); ALT/SGPT 80 U/L (7-56); AST/SGOT 57 U/L (15-39); BILIRUBIN,TOTAL 0.6 mg/dL (0.2-1.3); BLOOD UREA NITROGEN 11 mg/dL (7-21); CALCIUM 8.2 mg/dL (8.4-10.5); CARBON DIOXIDE 32 mmol/L (21-33); CHLORIDE 100 mmol/L (98-107); GFR AFRICAN-AMERICAN > 60; GLUCOSE,RANDOM 167 mg/dL (70-110); SODIUM 141 mmol/L (132-148); TOTAL PROTEIN 6.3 g/dL (5.8-8.3)
[2016-08-09 03:16] LABS: POTASSIUM 2.8 mmol/L (3.6-5.0)
[2016-08-09] MEDS ORDERED: Potassium Chloride 20 mEq 100 ML IV ONE (03:59)
[2016-08-09] MEDS ORDERED: Potassium Chloride 20 mEq ER Tab PO ONE (05:26)
[2016-08-09] MEDS ORDERED: Albuterol-Ipratrop 3 mg / 0.5 (3 ml) UD IH PRN (07:49)
[2016-08-09] MEDS ORDERED: Potassium Chloride 40 mEq/30 ml LIQ UD PO STA (07:55)
--- NOTE | 2016-08-09 08:02 | CP.PCM.HP ---
<Rosales Juarez - Last Filed: 08/09/16 20:14> History of Present Illness - History of Present Illness History of Present Illness: CC:"Shortness of breath" HPI: PT is a 45 year old female with a PMHx of COPD, Hepatitis C, IV drug abuse , alcohol abuse, and delirium tremens, who presented to the ED with complaints of shortness of breath and cough. Pt has been hospitalized multiple times this past month for similar complaints. Pt was admitted to the hospital yesterday and signed out against medical advice because she reported that she wanted a cigarette. Pt reports that she consumed 3 "4 locos" today, and that when she does not drink alcohol, she gets 'the shakes'. She reports that the last time she used heroin was one and a half weeks ago when she used one bag via insufflation. Pt is also complaining of leg swelling. Pt reports that she is homeless. Pt denies fever, chills, chest pain, shortness of breath, nausea, and vomiting. PMHx: COPD, Hepatitis C, IV drug abuse, alcohol abuse, and delirium tremens Home Medications: Inhaler Allergies: NKDA Social Hx: reports smoking 1 pack of cigarettes/day, reports drinking three 4 locos per day, reports that she last used heroin 1.5 weeks ago Fam Hx: lung cancer (mother) Present on Admission - Present on Admission Any Indicators Present on Admission: No Review of Systems - Constitutional Constitutional: absent: Chills, Fever - EENT Eyes: absent: Blurred Vision, Change in Vision Ears: absent: Dizziness - Cardiovascular Cardiovascular: Dyspnea, Edema. absent: Chest Pain, Rapid Heart Rate - Respiratory Respiratory: Cough, Dyspnea, Wheezing - Gastrointestinal Gastrointestinal: absent: Abdominal Pain, Vomiting - Genitourinary Genitourinary: absent: Dysuria - Musculoskeletal Musculoskeletal: absent: Arthralgias, Atrophy - Neurological Neurological: absent: Abnormal Gait, Abnormal Hearing, Headaches - Psychiatric Psychiatric: absent: Anhedonia, Anxiety - Endocrine Endocrine: absent: Palpitations Past Patient History - Infectious Disease Hx of Infectious Diseases: None - Tetanus Immunizations Tetanus Immunization: Unknown - Past Medical History & Family History Past Medical History?: Yes - Past Social History Smoking Status: Heavy Smoker > 10 Cigarettes Daily - CARDIAC Hx Hypertension: Yes Other/Comment: cellulitis - PULMONARY Hx Asthma: Yes Hx Bronchitis: Yes Hx Chronic Obstructive Pulmonary Disease (COPD): Yes Hx Emphysema: Yes Other/Comment: pneumothorax left chest tube 15 yrs ago, pt needed lung sx after removal of chest tube lung "tore apart" has been having chronic pain to that area intermittent ever since as per pt - NEUROLOGICAL Hx Neurological Disorder: No - HEENT Hx HEENT Problems: No - RENAL Hx Chronic Kidney Disease: No - ENDOCRINE/METABOLIC Hx Endocrine Disorders: No - HEMATOLOGICAL/ONCOLOGICAL Hx Hepatitis C: Yes - INTEGUMENTARY Hx Dermatological Problems: Yes Other/Comment: cellulitis, flat red rash around neck and chest, cyst to upper back, multiple skin discolorations to b/l arms, poor hygeine, dirty and foul smelling, has not showered in 4 days, homeless as per pt - MUSCULOSKELETAL/RHEUMATOLOGICAL Hx Falls: No - GASTROINTESTINAL Hx Gastrointestinal Disorders: No - GENITOURINARY/GYNECOLOGICAL Hx Genitourinary Disorders: No - PSYCHIATRIC Hx Anxiety: Yes Hx Substance Use: Yes (quit heroine 2 wks ago/quit meth yrs ago) Other/Comment: stopped heroin use 2 wks ago, quit methadone "yrs ago", drinks alcohol called 4 frances about 9 drinks a day, smokes more that 10 cigs a day, hasn 't showered in 4 days homeless as per pt - SURGICAL HISTORY Hx Appendectomy: Yes Other/Comment: As per patient, she has had "lung surgery". - ANESTHESIA Hx Anesthesia: Yes Hx Anesthesia Reactions: No Hx Malignant Hyperthermia: No Meds Home Medications: Home Medication List Medication Instructions Recorded Confirmed Type Doxycycline Hyclate 100 mg PO Q12 #6 tab 08/10/16 Rx Folic Acid 1 mg PO DAILY #14 tab 08/10/16 Rx Methylprednisolone [Medrol Dose See Taper PO DAILY #21 mg 08/10/16 Rx Pack (21 tabs)] Multivitamin Therapeutic Tab 1 tab PO DAILY #14 tab 08/10/16 Rx [Thera Tab] Thiamine [Vitamin B1 Tab] 100 mg PO DAILY #14 tab 08/10/16 Rx Allergies/Adverse Reactions: Allergies Allergy/AdvReac Type Severity Reaction Status Date / Time No Known Allergies Allergy Verified 08/06/16 17:01 Physical Exam - Constitutional Appears: No Acute Distress, Unkempt - Head Exam Head Exam: ATRAUMATIC, NORMOCEPHALIC - Eye Exam Eye Exam: EOMI, PERRL - ENT Exam ENT Exam: Mucous Membranes Moist. absent: Mucous Membranes Dry - Neck Exam Neck exam: Positive for: Full Rom. Negative for: Lymphadenopathy - Respiratory Exam Respiratory Exam: Wheezes - Cardiovascular Exam Cardiovascular Exam: +S1, +S2. absent: Gallop, Rubs - GI/Abdominal Exam GI & Abdominal Exam: Normal Bowel Sounds, Soft. absent: Tenderness - Extremities Exam Extremities exam: Positive for: pedal edema - Neurological Exam Neurological exam: Alert, Oriented x3 - Psychiatric Exam Psychiatric exam: Normal Affect, Normal Mood - Skin Skin Exam: Normal Color, Warm Results - Vital Signs Recent Vital Signs: Last Vital Signs Temp 98.4 F 08/09/16 00:10 Pulse 88 08/09/16 00:10 Resp 18 08/09/16 00:10 BP 142/74 08/09/16 00:10 Pulse Ox 97 08/09/16 00:10 - Labs Result Diagrams: 08/09/16 09:00 08/09/16 08:22 Assessment & Plan - Assessment and Plan (Free Text) Assessment: COPD Exacerbation: Afebrile, nontachycardic No leukocytosis CXR - 08/08 admission - no active disease (please see full report) Duonebs q6h prn Doxycycline 100 mg IV q12h Solumedrol 40 mg IV q12h Alcohol Withdrawal: Serum alcohol < 10 Ativan 1 mg po QID Ativan 1 mg IV q3h prn for anxiety - hold if lethargic Thiamine, folic acid, multivitamins Hypokalemia: K+ 2.8 K-dur 40 meq, k-rider given in ED Prophylactic Measures: DVT: Heparin 5000 units sc q12h, SCDs held due to b/l lower extremity edema GI: Protonix 40 mg po qd Nicotine patch <Alex Irvin P - Last Filed: 08/22/16 19:32> Results - Vital Signs Recent Vital Signs: Last Vital Signs Temp 98.3 F 08/10/16 05:51 Pulse 101 H 08/10/16 09:00 Resp 18 08/10/16 09:00 BP 156/97 H 08/10/16 09:00 Pulse Ox 98 08/10/16 09:00 - Labs Result Diagrams: 08/10/16 05:30 08/10/16 05:30 Attending/Attestation - Attestation I have personally seen and examined this patient.: Yes I have fully participated in the care of the patient.: Yes I have reviewed all pertinent clinical information: Yes
[2016-08-09] MEDS: Albuterol-Ipratrop 3 mg / 0.5 (3 ml) UD IH SCH ×3 (08:18→19:56)
[2016-08-09] MEDS: MethylPREDNISolone 40 mg Vial IV SCH ×2 (08:19→21:18)
[2016-08-09 08:38] LABS: ARTERIAL BLOOD GAS O2 CAPACITY 16.5 mL/dl (16-24); ARTERIAL BLOOD GAS O2 CONTENT 15.9 ML/dl (15-23); ARTERIAL BLOOD GAS PH 7.48 (7.35-7.45); ARTERIAL BLOOD HGB O2 SAT 91.7 % (95.0-98.0); CARBOXYHEMOGLOBIN 3.8 % (0.5-1.5); HHB 3.7 % (0-5); METHEMOGLOBIN 0.8 % (0.0-3.0)
[2016-08-09 09:19] LABS: ADD MANUAL DIFF? NO
[2016-08-09 09:26] LABS: BASO # 0.01 K/mm3 (0.0-2.0); BASO % 0.1 % (0.0-3.0); GRAN % 88.8 % (50.0-68.0); HEMATOCRIT 39.2 % (36.0-48.0); LYMPH # 0.7 (1.2-3.4); MEAN CELL VOLUME 104.8 fL (80.0-105.0); MEAN CORPUSCULAR HGB CONC 33.4 g/dl (31.0-37.0); MEAN PLATELET VOLUME 9.9 fl (7.0-11.0); MONO # 0.4 (0.1-0.6); MONO % 4.1 % (1.0-6.0); PLATELET COUNT 359 10^3/uL (120.0-450.0); RED CELL DISTRIBUTION WIDTH 13.8 % (11.5-14.5)
[2016-08-09 09:38] LABS: ALCOHOL SERUM < 10 mg/dL (0-10)
[2016-08-09 09:40] LABS: ALB/GLOB RATIO 1.2 (1.1-1.8); ALKALINE PHOSPHATASE 71 U/L (38-133); ALT/SGPT 81 U/L (7-56); AST/SGOT 58 U/L (15-39); BILIRUBIN,TOTAL 0.8 mg/dL (0.2-1.3); BLOOD UREA NITROGEN 13 mg/dL (7-21); CALCIUM 8.8 mg/dL (8.4-10.5); CARBON DIOXIDE 32 mmol/L (21-33); CHLORIDE 101 mmol/L (98-107); GFR AFRICAN-AMERICAN > 60; GLUCOSE,RANDOM 150 mg/dL (70-110); POTASSIUM 4.9 mmol/L (3.6-5.0); SODIUM 141 mmol/L (132-148); TOTAL PROTEIN 6.5 g/dL (5.8-8.3)
[2016-08-09 09:44] LABS: IRON 59 ug/dL (45-180)
[2016-08-09] MEDS: Pantoprazole 40 mg EC Tab PO SCH (09:44)
[2016-08-09] MEDS ORDERED: Multivitamin Therapeutic Tab PO SCH (10:00)
[2016-08-09 10:07] LABS: THYROID STIMULATING HORMONE 0.36 mIU/mL (0.46-4.68)
[2016-08-09] MEDS: Folic Acid 1 MG, Thiamine 100 MG, Multivitamin (MVI) 10 ML in Dextrose 5% In Water 1,00... IV SCH ×2 (11:07→21:19)
--- NOTE | 2016-08-09 11:17 | CARD ---
APPROVED REPORT EKG Measurement Heart [id number] MD [id number] <Conclusion> Normal sinus rhythm Nonspecific T wave abnormality Prolonged QT Abnormal ECG
[2016-08-09 12:59] LABS: PH,URINE 7.5 (4.7-8.0); URINE BILIRUBIN NEGATIVE (NEGATIVE); URINE BLOOD NEGATIVE (NEGATIVE); URINE GLUCOSE (UA) 500 mg/dL (NEGATIVE); URINE KETONE NEGATIVE (NEGATIVE); URINE LEUKOCYTE ESTERASE NEGATIVE Leu/uL (NEGATIVE); URINE PROTEIN NEGATIVE mg/dL (<30 mg/dL)
[2016-08-09 13:06] LABS: URINE APPEARANCE CLEAR (CLEAR); URINE COLOR YELLOW (YELLOW)
[2016-08-09] MEDS ORDERED: guaiFENesin 100 mg/5 ml Syrup UD PO PRN (14:29)
[2016-08-09 20:13] VITALS: TEMP 98.3
[2016-08-10] MEDS: Folic Acid 1 MG, Thiamine 100 MG, Multivitamin (MVI) 10 ML in Dextrose 5% In Water 1,00... IV SCH (00:03)
[2016-08-10] MEDS: Albuterol-Ipratrop 3 mg / 0.5 (3 ml) UD IH SCH ×3 (02:05→13:18)
[2016-08-10 08:14] LABS: ADD MANUAL DIFF? NO
[2016-08-10] MEDS: MethylPREDNISolone 40 mg Vial IV SCH (08:21)
[2016-08-10 08:22] LABS: BASO # 0.01 K/mm3 (0.0-2.0); BASO % 0.1 % (0.0-3.0); GRAN # 10.23 (1.4-6.5); GRAN % 84.2 % (50.0-68.0); HEMATOCRIT 39.6 % (36.0-48.0); LYMPH # 0.9 (1.2-3.4); LYMPH % 7.5 % (22.0-35.0); MEAN CELL VOLUME 105.6 fL (80.0-105.0); MEAN CORPUSCULAR HEMOGLOBIN 34.9 pg (25.0-35.0); MEAN CORPUSCULAR HGB CONC 33.1 g/dl (31.0-37.0); MEAN PLATELET VOLUME 10.2 fl (7.0-11.0); MONO % 8.2 % (1.0-6.0); PLATELET COUNT 338 10^3/uL (120.0-450.0); RED CELL DISTRIBUTION WIDTH 13.6 % (11.5-14.5); WHITE BLOOD COUNT 12.2 10^3/ul (4.5-11.0)
[2016-08-10 08:34] LABS: ALB/GLOB RATIO 1.1 (1.1-1.8); ALKALINE PHOSPHATASE 65 U/L (38-133); ALT/SGPT 100 U/L (7-56); AST/SGOT 82 U/L (15-39); BILIRUBIN,TOTAL 0.7 mg/dL (0.2-1.3); BLOOD UREA NITROGEN 12 mg/dL (7-21); CALCIUM 8.4 mg/dL (8.4-10.5); CARBON DIOXIDE 32 mmol/L (21-33); CHLORIDE 97 mmol/L (95-110); GFR AFRICAN-AMERICAN > 60; GLUCOSE,RANDOM 129 mg/dL (70-110); POTASSIUM 4.1 mmol/L (3.6-5.0); SODIUM 136 mmol/L (132-148); TOTAL PROTEIN 5.9 g/dL (5.8-8.3)
[2016-08-10 08:48] LABS: FREE T4 0.71 ng/dL (0.78-2.19)
[2016-08-10 09:02] LABS: THYROID STIMULATING HORMONE 0.93 mIU/mL (0.46-4.68)
[2016-08-10] MEDS: Pantoprazole 40 mg EC Tab PO SCH (09:40)
[2016-08-10] MEDS ORDERED: Multivitamin Therapeutic Tab PO SCH (11:30)
--- NOTE | 2016-08-10 12:59 | CP.PCM.DIS ---
<Maya Reynolds - Last Filed: 08/10/16 13:20> Provider - Provider Date of Admission: 08/09/16 04:00 Attending physician: Karolina Watson MD Primary care physician: unknown, pt denies having one Consults: none Time Spent in preparation of Discharge (in minutes): 45 Hospital Course - Lab Results Lab Results: Most Recent Lab Values WBC 12.2 10^3/ul (4.5-11.0) H D 08/10/16 05:30 RBC 3.75 10^6/uL (3.5-6.1) 08/10/16 05:30 Hgb 13.1 gm/dL (12.0-16.0) 08/10/16 05:30 Hct 39.6 % (36.0-48.0) 08/10/16 05:30 MCV 105.6 fL (80.0-105.0) H 08/10/16 05:30 MCH 34.9 pg (25.0-35.0) 08/10/16 05:30 MCHC 33.1 g/dl (31.0-37.0) 08/10/16 05:30 RDW 13.6 % (11.5-14.5) 08/10/16 05:30 Plt Count 338 10^3/uL (120.0-450.0) 08/10/16 05:30 MPV 10.2 fl (7.0-11.0) 08/10/16 05:30 Gran % 84.2 % (50.0-68.0) H 08/10/16 05:30 Lymph % (Auto) 7.5 % (22.0-35.0) L 08/10/16 05:30 Harmon % (Auto) 8.2 % (1.0-6.0) H 08/10/16 05:30 Eos % (Auto) 0.0 % (1.5-5.0) L 08/10/16 05:30 Baso % (Auto) 0.1 % (0.0-3.0) 08/10/16 05:30 Gran # 10.23 (1.4-6.5) H 08/10/16 05:30 Lymph # 0.9 (1.2-3.4) L 08/10/16 05:30 Harmon # 1.0 (0.1-0.6) H 08/10/16 05:30 Eos # 0.0 (0.0-0.7) 08/10/16 05:30 Baso # 0.01 K/mm3 (0.0-2.0) 08/10/16 05:30 pCO2 43 mm/Hg (35-45) 08/09/16 08:30 pO2 65.0 mm/Hg (80-100) L 08/09/16 08:30 HCO3 32.0 mmol/L (21-28) H 08/09/16 08:30 ABG pH 7.48 (7.35-7.45) H 08/09/16 08:30 ABG Total CO2 33.3 mmol.L (22-28) H 08/09/16 08:30 ABG O2 Saturation 96.1 % (95-98) 08/09/16 08:30 ABG O2 Content 15.9 ML/dl (15-23) 08/09/16 08:30 ABG Base Excess 7.6 mmol/L (-2.0-3.0) H 08/09/16 08:30 ABG Hemoglobin 12.3 g/dL (11.7-17.4) 08/09/16 08:30 ABG Carboxyhemoglobin 3.8 % (0.5-1.5) H 08/09/16 08:30 POC ABG HHb (Measured) 3.7 % (0-5) 08/09/16 08:30 ABG Methemoglobin 0.8 % (0.0-3.0) 08/09/16 08:30 ABG O2 Capacity 16.5 mL/dl (16-24) 08/09/16 08:30 Hgb O2 Saturation 91.7 % (95.0-98.0) L 08/09/16 08:30 FiO2 21.0 % 08/09/16 08:30 Sodium 136 mmol/L (132-148) 08/10/16 05:30 Potassium 4.1 mmol/L (3.6-5.0) 08/10/16 05:30 Chloride 97 mmol/L (95-110) 08/10/16 05:30 Carbon Dioxide 32 mmol/L (21-33) 08/10/16 05:30 Anion Gap 11 (10-20) 08/10/16 05:30 BUN 12 mg/dL (7-21) 08/10/16 05:30 Creatinine 0.6 mg/dL (0.5-1.4) 08/10/16 05:30 Est GFR ( Amer) > 60 08/10/16 05:30 Est GFR (Non-Af Amer) > 60 08/10/16 05:30 Random Glucose 129 mg/dL (70-110) H 08/10/16 05:30 Calcium 8.4 mg/dL (8.4-10.5) 08/10/16 05:30 Magnesium 2.0 mg/dL (1.7-2.2) 08/09/16 08:22 Iron 59 ug/dL (45-180) 08/09/16 09:00 TIBC 333 ug/dL (265-497) 08/09/16 09:00 Total Bilirubin 0.7 mg/dL (0.2-1.3) 08/10/16 05:30 AST 82 U/L (15-39) H 08/10/16 05:30 ALT 100 U/L (7-56) H 08/10/16 05:30 Alkaline Phosphatase 65 U/L (38-133) 08/10/16 05:30 Total Protein 5.9 g/dL (5.8-8.3) 08/10/16 05:30 Albumin 3.1 g/dL (3.0-4.8) 08/10/16 05:30 Globulin 2.8 gm/dL 08/10/16 05:30 Albumin/Globulin Ratio 1.1 (1.1-1.8) 08/10/16 05:30 Vitamin B12 233 pg/mL (239-931) L 08/09/16 09:00 Free T4 0.71 ng/dL (0.78-2.19) L 08/10/16 05:30 TSH 3rd Generation 0.93 mIU/mL (0.46-4.68) 08/10/16 05:30 Urine Color Yellow (YELLOW) 08/09/16 12:55 Urine Appearance Clear (CLEAR) 08/09/16 12:55 Urine pH 7.5 (4.7-8.0) 08/09/16 12:55 Ur Specific Roe 1.020 (1.005-1.035) 08/09/16 12:55 Urine Protein Negative mg/dL (<30 mg/dL) 08/09/16 12:55 Urine Glucose (UA) 500 mg/dL (NEGATIVE) H 08/09/16 12:55 Urine Ketones Negative mg/dL (NEGATIVE) 08/09/16 12:55 Urine Blood Negative (NEGATIVE) 08/09/16 12:55 Urine Nitrate Negative (NEGATIVE) 08/09/16 12:55 Urine Bilirubin Negative (NEGATIVE) 08/09/16 12:55 Urine Urobilinogen 1.0 E.U./dL (<1 E.U./dL) H 08/09/16 12:55 Ur Leukocyte Esterase Negative Erik/uL (NEGATIVE) 08/09/16 12:55 Urine Opiates Screen Negative (NEGATIVE) 08/09/16 12:55 Urine Methadone Screen Negative (NEGATIVE) 08/09/16 12:55 Ur Barbiturates Screen Negative (NEGATIVE) 08/09/16 12:55 Ur Phencyclidine Scrn Negative (NEGATIVE) 08/09/16 12:55 Ur Amphetamines Screen Negative (NEGATIVE) 08/09/16 12:55 U Benzodiazepines Scrn Positive (NEGATIVE) H 08/09/16 12:55 U Oth Cocaine Metabols Negative (NEGATIVE) 08/09/16 12:55 U Cannabinoids Screen Negative (NEGATIVE) 08/09/16 12:55 Alcohol, Quantitative < 10 mg/dL (0-10) 08/09/16 09:00 - Hospital Course Hospital Course: 45 yo f w/PMhx COPD, Hepatitis C, IV drug abuse, alcohol abuse, and delirium tremens, who presented to the ED with complaints of shortness of breath and cough. Pt has been hospitalized multiple times for similar complaints. Pt was admitted to the hospital yesterday and signed out against medical advice because she reported that she wanted a cigarette. Recent admission for similar presentation. EKG unchanged from prior. CXR - 08/08 admission - no active disease (please see full report). Afebrile w/o leukocytosis. Treated with duonebs , k-rider for hypokalemia of 2.8 and solumedrol in ED. Transferred from ED for observation for COPD exacerbation. On the floor, pt administered IVF, Thiamine, tapering dose of solumedrol, doxycycline, tapering dose of ativan, folic acid, multivitamins, nicotine patch , heparin and protonix. Pt's wheezing decreased and remained afebrile, and discharged home in good condition with the following medications: medrol dose taylor, folic acid, thiamine, multivitamin. Discharge Exam - Head Exam Head Exam: ATRAUMATIC, NORMOCEPHALIC - Eye Exam Eye Exam: EOMI, Normal appearance Pupil Exam: NORMAL ACCOMODATION, PERRL - Respiratory Exam Respiratory Exam: Wheezes (slight R sided wheezing), NORMAL BREATHING PATTERN - Cardiovascular Exam Cardiovascular Exam: +S1, +S2. absent: Tachycardia - GI/Abdominal Exam GI & Abdominal Exam: Soft. absent: Tenderness - Exam External exam: absent: Ecchymosis, Lacerations - Extremities Exam Extremities exam: normal capillary refill, pedal pulses present - Neurological Exam Neurological exam: Alert, Oriented x3 - Skin Skin Exam: Intact, Normal Color Discharge Plan - Discharge Medications Prescriptions: Doxycycline Hyclate 100 mg PO Q12 #6 tab Folic Acid 1 mg PO DAILY #14 tab Methylprednisolone [Medrol Dose Pack (21 tabs)] See Taper PO DAILY #21 mg Multivitamin Therapeutic Tab [Thera Tab] 1 tab PO DAILY #14 tab Thiamine [Vitamin B1 Tab] 100 mg PO DAILY #14 tab - Follow Up Plan Condition: STABLE Disposition: HOME/ ROUTINE Instructions: Hypokalemia (DC), COPD (Chronic Obstructive Pulmonary Disease) ( GEN), Abuse of Alcohol (GEN), At-Risk Alcohol Use (GEN) Additional Instructions: You are discharged home. Please follow up with your PMD of choice within a week. Please resume home medications. Your new medications are doxycycline 100 mg by mouth twice daily, Medrol dose taylor, and the following daily vitamins: thiamine, folic acid and multivitamin. As per discussion with you, you still have active prescriptions of albuterol inhalers. Please return to the emergency department for worsening of symptoms. Encourage to please stop smoking. Diet : Heart healthy Patient states she refuses flu and pneumococcal vaccines. <Karolina Watson - Last Filed: 08/10/16 14:20> Provider - Provider Date of Admission: 08/09/16 04:00 Attending physician: Karolina Watson MD Hospital Course - Lab Results Lab Results: Most Recent Lab Values WBC 12.2 10^3/ul (4.5-11.0) H D 08/10/16 05:30 RBC 3.75 10^6/uL (3.5-6.1) 08/10/16 05:30 Hgb 13.1 gm/dL (12.0-16.0) 08/10/16 05:30 Hct 39.6 % (36.0-48.0) 08/10/16 05:30 MCV 105.6 fL (80.0-105.0) H 08/10/16 05:30 MCH 34.9 pg (25.0-35.0) 08/10/16 05:30 MCHC 33.1 g/dl (31.0-37.0) 08/10/16 05:30 RDW 13.6 % (11.5-14.5) 08/10/16 05:30 Plt Count 338 10^3/uL (120.0-450.0) 08/10/16 05:30 MPV 10.2 fl (7.0-11.0) 08/10/16 05:30 Gran % 84.2 % (50.0-68.0) H 08/10/16 05:30 Lymph % (Auto) 7.5 % (22.0-35.0) L 08/10/16 05:30 Harmon % (Auto) 8.2 % (1.0-6.0) H 08/10/16 05:30 Eos % (Auto) 0.0 % (1.5-5.0) L 08/10/16 05:30 Baso % (Auto) 0.1 % (0.0-3.0) 08/10/16 05:30 Gran # 10.23 (1.4-6.5) H 08/10/16 05:30 Lymph # 0.9 (1.2-3.4) L 08/10/16 05:30 Harmon # 1.0 (0.1-0.6) H 08/10/16 05:30 Eos # 0.0 (0.0-0.7) 08/10/16 05:30 Baso # 0.01 K/mm3 (0.0-2.0) 08/10/16 05:30 pCO2 43 mm/Hg (35-45) 08/09/16 08:30 pO2 65.0 mm/Hg (80-100) L 08/09/16 08:30 HCO3 32.0 mmol/L (21-28) H 08/09/16 08:30 ABG pH 7.48 (7.35-7.45) H 08/09/16 08:30 ABG Total CO2 33.3 mmol.L (22-28) H 08/09/16 08:30 ABG O2 Saturation 96.1 % (95-98) 08/09/16 08:30 ABG O2 Content 15.9 ML/dl (15-23) 08/09/16 08:30 ABG Base Excess 7.6 mmol/L (-2.0-3.0) H 08/09/16 08:30 ABG Hemoglobin 12.3 g/dL (11.7-17.4) 08/09/16 08:30 ABG Carboxyhemoglobin 3.8 % (0.5-1.5) H 08/09/16 08:30 POC ABG HHb (Measured) 3.7 % (0-5) 08/09/16 08:30 ABG Methemoglobin 0.8 % (0.0-3.0) 08/09/16 08:30 ABG O2 Capacity 16.5 mL/dl (16-24) 08/09/16 08:30 Hgb O2 Saturation 91.7 % (95.0-98.0) L 08/09/16 08:30 FiO2 21.0 % 08/09/16 08:30 Sodium 136 mmol/L (132-148) 08/10/16 05:30 Potassium 4.1 mmol/L (3.6-5.0) 08/10/16 05:30 Chloride 97 mmol/L (95-110) 08/10/16 05:30 Carbon Dioxide 32 mmol/L (21-33) 08/10/16 05:30 Anion Gap 11 (10-20) 08/10/16 05:30 BUN 12 mg/dL (7-21) 08/10/16 05:30 Creatinine 0.6 mg/dL (0.5-1.4) 08/10/16 05:30 Est GFR ( Amer) > 60 08/10/16 05:30 Est GFR (Non-Af Amer) > 60 08/10/16 05:30 Random Glucose 129 mg/dL (70-110) H 08/10/16 05:30 Calcium 8.4 mg/dL (8.4-10.5) 08/10/16 05:30 Magnesium 2.0 mg/dL (1.7-2.2) 08/09/16 08:22 Iron 59 ug/dL (45-180) 08/09/16 09:00 TIBC 333 ug/dL (265-497) 08/09/16 09:00 Total Bilirubin 0.7 mg/dL (0.2-1.3) 08/10/16 05:30 AST 82 U/L (15-39) H 08/10/16 05:30 ALT 100 U/L (7-56) H 08/10/16 05:30 Alkaline Phosphatase 65 U/L (38-133) 08/10/16 05:30 Total Protein 5.9 g/dL (5.8-8.3) 08/10/16 05:30 Albumin 3.1 g/dL (3.0-4.8) 08/10/16 05:30 Globulin 2.8 gm/dL 08/10/16 05:30 Albumin/Globulin Ratio 1.1 (1.1-1.8) 08/10/16 05:30 Vitamin B12 233 pg/mL (239-931) L 08/09/16 09:00 Free T4 0.71 ng/dL (0.78-2.19) L 08/10/16 05:30 TSH 3rd Generation 0.93 mIU/mL (0.46-4.68) 08/10/16 05:30 Urine Color Yellow (YELLOW) 08/09/16 12:55 Urine Appearance Clear (CLEAR) 08/09/16 12:55 Urine pH 7.5 (4.7-8.0) 08/09/16 12:55 Ur Specific Roe 1.020 (1.005-1.035) 08/09/16 12:55 Urine Protein Negative mg/dL (<30 mg/dL) 08/09/16 12:55 Urine Glucose (UA) 500 mg/dL (NEGATIVE) H 08/09/16 12:55 Urine Ketones Negative mg/dL (NEGATIVE) 08/09/16 12:55 Urine Blood Negative (NEGATIVE) 08/09/16 12:55 Urine Nitrate Negative (NEGATIVE) 08/09/16 12:55 Urine Bilirubin Negative (NEGATIVE) 08/09/16 12:55 Urine Urobilinogen 1.0 E.U./dL (<1 E.U./dL) H 08/09/16 12:55 Ur Leukocyte Esterase Negative Erik/uL (NEGATIVE) 08/09/16 12:55 Urine Opiates Screen Negative (NEGATIVE) 08/09/16 12:55 Urine Methadone Screen Negative (NEGATIVE) 08/09/16 12:55 Ur Barbiturates Screen Negative (NEGATIVE) 08/09/16 12:55 Ur Phencyclidine Scrn Negative (NEGATIVE) 08/09/16 12:55 Ur Amphetamines Screen Negative (NEGATIVE) 08/09/16 12:55 U Benzodiazepines Scrn Positive (NEGATIVE) H 08/09/16 12:55 U Oth Cocaine Metabols Negative (NEGATIVE) 08/09/16 12:55 U Cannabinoids Screen Negative (NEGATIVE) 08/09/16 12:55 Alcohol, Quantitative < 10 mg/dL (0-10) 08/09/16 09:00 Attending/Attestation - Attestation I have personally seen and examined this patient.: Yes I have fully participated in the care of the patient.: Yes I have reviewed all pertinent clinical information, including history, physical exam and plan: Yes Notes (Text): 08/10/16 14:15 45 year old female with past medical history of active smoking, COPD and chronic ETOH abuse who presented with shortness of breath secondary to COPD exacerbation. She was in ER several times this week but kept signing out AMA to smoke. She was admitted and started on iv steroids, antibiotics and duonebs. Her symptoms improved. She was counselled on smoking abstinence. She was also treated for alcohol withdrawal. She is doing better today and her ativan was tapered. Patient is discharged home today to follow up with pmd or [facility]. Counselled on smoking and alcohol abstinence. Overall prognosis is very poor given active ETOH and tobacco abuse and history of noncompliance. Karolina Watson MD Hospitalist.
[2016-08-10 13:19] VITALS: BP 156/97; PULSE 101; RESP 18; O2SAT 98
[2016-08-10] MEDS ORDERED: MethylPREDNISolone 40 mg Vial IV SCH (20:00)
[2016-08-18 08:03] LABS: ACETONE None Detected; ETHANOL None Detected; ISOPROPANOL None Detected; METHANOL None Detected
== END 2016-08-10 13:49 | disposition home or self-care (01) ==
LOC: ED 23:29 → ERH 08-09 04:00 → 2RNO 08-09 18:38
PROVIDERS: ADMIT Hospitalist; ATTEND Internal Medicine
DX: J44.1 Chronic obstructive pulmonary disease with (acute) exacerbation (principal); E87.6 Hypokalemia; J45.909 Unspecified asthma, uncomplicated; Z59.0 Homelessness; B19.20 Unspecified viral hepatitis C without hepatic coma; F17.210 Nicotine dependence, cigarettes, uncomplicated; F10.239 Alcohol dependence with withdrawal, unspecified; Z91.19 Patient's noncompliance with other medical treatment and regimen; Z80.1 Family history of malignant neoplasm of trachea, bronchus and lung
CPT/HCPCS: 36415; 80053; 80320; 80324; 80345; 80346; 80349; 80353; 80358; 80361; 81003; 82009; 82607; 82803; 83540; 83550; 83735; 83992; 84439; 84443; 84600; 85025; 85027; 93005; 94640; 94760; 96361; 96365; 96366; 96367; 96368; 96372; 96375; 96376; 99285; G0378; J1644; J2060; J2920; J2930; J3411; J3480; J7070

== ENCOUNTER 2016-08-26 21:34 | Inpatient (IN) | payer MEDICAID ==
[2016-08-26 21:38] VITALS: BMI 26.5
[2016-08-26] MEDS ORDERED: Albuterol-Ipratrop 3 mg / 0.5 (3 ml) UD IH STA (22:08)
--- NOTE | 2016-08-26 22:08 | ED PDOC ---
Arrival/HPI - General Chief Complaint: Respiratory Distress Time Seen by Provider: 08/26/16 21:51 Historian: Patient - History of Present Illness Narrative History of Present Illness (Text): 08/26/16 22:06 Fani Chambers is a 45 year old female smoker, whose past medical history includes asthma, COPD, Hepatitis C, alcohol abuse, IV and drug abuse, who presents to the ED complaining of progressively worsening shortness of breath and wheezing today. Patient states symptoms are consistent with previous episodes of asthma and bronchitis. The patient denies any fever, chills, chest pain, abdominal pain, nausea, vomiting, diarrhea, urinary symptoms, back pain, neck pain, headache, dizziness, or any other complaints. Time/Duration: Other (tonight) Symptom Onset: Gradual Symptom Course: Worsening Activities at Onset: Rest, Light Context: Home Past Medical History - Provider Review Nursing Documentation Reviewed: Yes - Infectious Disease Hx of Infectious Diseases: None - Tetanus Immunization Tetanus Immunization: Unknown - Cardiac Hx Hypertension: Yes Other/Comment: cellulitis - Pulmonary Hx Asthma: Yes Hx Bronchitis: Yes Hx Chronic Obstructive Pulmonary Disease (COPD): Yes Hx Emphysema: Yes Other/Comment: pneumothorax left chest tube 15 yrs ago, pt needed lung sx after removal of chest tube lung "tore apart" has been having chronic pain to that area intermittent ever since as per pt - Neurological Hx Neurological Disorder: No - HEENT Hx HEENT Disorder: No - Renal Hx Renal Disorder: No - Endocrine/Metabolic Hx Endocrine Disorders: No - Hematological/Oncological Hx Hepatitis C: Yes - Integumentary Hx Dermatological Disorder: Yes Other/Comment: cellulitis, flat red rash around neck and chest, cyst to upper back, multiple skin discolorations to b/l arms, poor hygeine, dirty and foul smelling, has not showered in 4 days, homeless as per pt - Musculoskeletal/Rheumatological Hx Falls: No - Gastrointestinal Hx Gastrointestinal Disorders: No - Genitourinary/Gynecological Hx Genitourinary Disorders: No - Psychiatric Hx Anxiety: Yes Hx Substance Use: Yes (quit heroine 2 wks ago/quit meth yrs ago) Other/Comment: stopped heroin use 2 wks ago, quit methadone "yrs ago", drinks alcohol called 4 frances about 9 drinks a day, smokes more that 10 cigs a day, hasn 't showered in 4 days homeless as per pt - Surgical History Hx Appendectomy: Yes Other/Comment: As per patient, she has had "lung surgery". - Anesthesia Hx Anesthesia: Yes Hx Anesthesia Reactions: No Hx Malignant Hyperthermia: No - Suicidal Assessment Feels Threatened In Home Enviroment: No Family/Social History - Physician Review Nursing Documentation Reviewed: Yes Family/Social History: No Known Family HX Smoking Status: Heavy Smoker > 10 Cigarettes Daily Hx Alcohol Use: Yes (daily 4 frances 9 drinks) Hx Substance Use: Yes (quit heroine 2 wks ago/quit meth yrs ago) Substance used: HEROINE Hx Substance Use Treatment: Yes Allergies/Home Meds Allergies/Adverse Reactions: Allergies No Known Allergies Allergy (Verified 08/26/16 21:41) Review of Systems - Physician Review All systems were reviewed & negative as marked: Yes - Review of Systems Constitutional: Normal. absent: Fevers Eyes: Normal ENT: Normal Respiratory: SOB, Wheezing Cardiovascular: Normal. absent: Chest Pain Gastrointestinal: Normal. absent: Abdominal Pain, Diarrhea, Nausea, Vomiting Genitourinary Female: Normal. absent: Dysuria, Frequency, Hematuria, Urine Output Changes Musculoskeletal: Normal. absent: Back Pain, Neck Pain Skin: Normal. absent: Rash Neurological: Normal. absent: Headache, Dizziness Endocrine: Normal Hemo/Lymphatic: Normal Psychiatric: Normal Physical Exam Vital Signs Reviewed: Yes Vital Signs Temp Pulse Resp BP Pulse Ox 08/27/16 01:15 112 H 22 119/67 95 08/26/16 23:27 95 H 20 115/75 97 08/26/16 22:01 20 08/26/16 21:38 98.1 F 100 H 22 120/82 96 Temperature: Afebrile Blood Pressure: Normal Pulse: Regular Respiratory Rate: Normal Appearance: Positive for: Well-Appearing, Non-Toxic, Comfortable Pain Distress: None Mental Status: Positive for: Alert and Oriented X 3 - Systems Exam Head: Present: Atraumatic, Normocephalic Pupils: Present: PERRL Extroacular Muscles: Present: EOMI Conjunctiva: Present: Normal Mouth: Present: Moist Mucous Membranes Neck: Present: Normal Range of Motion Respiratory/Chest: Present: Wheezes (Wheezing bilaterally). No: Respiratory Distress, Accessory Muscle Use Cardiovascular: Present: Regular Rate and Rhythm, Normal S1, S2. No: Murmurs Abdomen: Present: Normal Bowel Sounds. No: Tenderness, Distention, Peritoneal Signs Back: Present: Normal Inspection Upper Extremity: Present: Normal Inspection. No: Cyanosis, Edema Lower Extremity: Present: Normal Inspection. No: Edema Neurological: Present: GCS=15, CN II-XII Intact, Speech Normal Skin: Present: Warm, Dry, Normal Color. No: Rashes Psychiatric: Present: Alert, Oriented x 3, Normal Insight, Normal Concentration Medical Decision Making ED Course and Treatment: 08/26/16 22:07 Impression: 46 year old female complaining of shortness of breath and wheezing. Differential Diagnosis included but are not limited to: asthma exacavs. COPD exacerbation Plan: -- EKG -- CXR -- Labs -- Duoneb -- Solu-medrol -- Reassess and disposition Prior Visits: Notes and results from previous visits were reviewed. Progress Notes: Reviewed EKG, NSR at [address]-segment elevations or depressions, no T-wave inversions, normal intervals. 08/27/16 01:16 Case discussed with medical tech, who is aware and agrees with plan. Case discussed with Dr. Cardoso, who is aware and agrees with plan. Accepts pt in to hospitalist service. Pt will be admitted to Telemetry for asthma exacerbation. Pt agreeable with plan. - Lab Interpretations Lab Results: 08/26/16 22:30 08/26/16 22:30 Lab Results 08/26/16 22:30: WBC 8.0 D, RBC 4.13, Hgb 14.6, Hct 42.8, MCV 103.6, MCH 35.4 H , MCHC 34.1, RDW 13.4, Plt Count 338, MPV 10.1 08/26/16 22:30: Sodium 141, Potassium 3.1 L, Chloride 100, Carbon Dioxide 33, Anion Gap 11, BUN 5 L, Creatinine 0.5, Est GFR ( Amer) > 60, Est GFR (Non -Af Amer) > 60, Random Glucose 107, Calcium 8.5, Total Bilirubin 0.8, AST 44 H, ALT 50, Alkaline Phosphatase 69, Total Protein 6.5, Albumin 3.4, Globulin 3.1, Albumin/Globulin Ratio 1.1 I have reviewed the lab results: Yes - RAD Interpretation Radiology Orders: 08/26/16 22:07 CHEST PORTABLE [RAD] Stat Brine Process Operator: ED Physician - EKG Interpretation Interpreted by ED Physician: Yes Type: 12 lead EKG - Medication Orders Current Medication Orders: Discontinued Medications Albuterol/Ipratropium (Duoneb 3 Mg/0.5 Mg (3 Ml) Ud) 3 ml IH ONCE STA Stop: 08/26/16 22:09 Last Admin: 08/26/16 22:08 Dose: 3 ml Albuterol/Ipratropium (Duoneb 3 Mg/0.5 Mg (3 Ml) Ud) 3 ml IH ONCE STA Stop: 08/27/16 00:20 Last Admin: 08/27/16 00:36 Dose: 3 ml Albuterol/Ipratropium (Duoneb 3 Mg/0.5 Mg (3 Ml) Ud) 3 ml IH ONCE STA Stop: 08/27/16 01:22 Methylprednisolone (Solu-Medrol) 125 mg IVP ONCE ONE Stop: 08/26/16 22:09 Last Admin: 08/26/16 22:34 Dose: 125 mg Potassium Chloride (K-Dur 20 Meq Er Tab) 40 meq PO STAT STA Stop: 08/27/16 00:22 Last Admin: 08/27/16 00:36 Dose: 40 meq - Scribe Statement The provider has reviewed the documentation as recorded by the Jc Rosales Provider Attestation: All medical record entries made by the Jc were at my direction and personally dictated by me. I have reviewed the chart and agree that the record accurately reflects my personal performance of the history, physical exam, medical decision making, and the department course for this patient. I have also personally directed, reviewed, and agree with the discharge instructions and disposition. Disposition/Present on Arrival - Present on Arrival Any Indicators Present on Arrival: No History of DVT/PE: No History of Uncontrolled Diabetes: No Urinary Catheter: No History of Decub. Ulcer: No History Surgical Site Infection Following: None - Disposition Have Diagnosis and Disposition been Completed?: Yes Diagnosis: COPD exacerbation Disposition: HOME/ ROUTINE Disposition Time: 01:30 Patient Plan: Admission Patient Problems: Current Active Problems Problem Status Onset COPD exacerbation Acute Condition: STABLE
[2016-08-26 22:48] LABS: HEMATOCRIT 42.8 % (36.0-48.0); MEAN CELL VOLUME 103.6 fL (80.0-105.0); MEAN CORPUSCULAR HEMOGLOBIN 35.4 pg (25.0-35.0); MEAN CORPUSCULAR HGB CONC 34.1 g/dl (31.0-37.0); MEAN PLATELET VOLUME 10.1 fl (7.0-11.0); RED CELL DISTRIBUTION WIDTH 13.4 % (11.5-14.5)
[2016-08-26 22:56] LABS: ALB/GLOB RATIO 1.1 (1.1-1.8); ALKALINE PHOSPHATASE 69 U/L (38-133); ALT/SGPT 50 U/L (7-56); AST/SGOT 44 U/L (15-39); BILIRUBIN,TOTAL 0.8 mg/dL (0.2-1.3); BLOOD UREA NITROGEN 5 mg/dL (7-21); CALCIUM 8.5 mg/dL (8.4-10.5); CARBON DIOXIDE 33 mmol/L (21-33); CHLORIDE 100 mmol/L (98-107); GFR AFRICAN-AMERICAN > 60; GLUCOSE,RANDOM 107 mg/dL (70-110); POTASSIUM 3.1 mmol/L (3.6-5.0); SODIUM 141 mmol/L (132-148); TOTAL PROTEIN 6.5 g/dL (5.8-8.3)
[2016-08-27] MEDS ORDERED: Albuterol-Ipratrop 3 mg / 0.5 (3 ml) UD IH STA ×2 (00:19→01:21)
[2016-08-27] MEDS ORDERED: Potassium Chloride 20 mEq ER Tab PO STA (00:21)
--- NOTE | 2016-08-27 01:51 | CP.PCM.HP ---
<Paco Pisano - Last Filed: 08/27/16 01:52> History of Present Illness - History of Present Illness History of Present Illness: 46 y/o F with PMH of COPD, Hepatitis C, IV drug abuse, alcohol abuse, and delirium tremens presents to the ED for 4 day history of shortness of breath. Pt states she woke up with increased shortness of breath, as she has shortness of breath at baseline. Pt states she has had a productive cough during this time as well, bringing up white phlegm. Pt states she took albuterol at home and was using her inhaler up to 20x per day, which did not help. Pt states she also has some chest pain associated with her coughing. Pt admits that she is still smoking 1/2 ppd and drinking alcohol multiple times per day. Pt states her last drink was right before she came into the ED. Pt denies N/V/D, sick contacts, fever, numbness, tingling, headache. PMH: COPD, Hepatitis C, IV drug abuse, alcohol abuse, and delirium tremens Surgical Hx: Appendectomy Fam Hx: lung cancer Social Hx: 1/2 ppd x 25 years. Multiple alcoholic beverages per day. Took xanax 1 week, denies any recent IV drug abuse Medications: Albuterol Allergies: NKDA Present on Admission - Present on Admission Any Indicators Present on Admission: No Review of Systems - Constitutional Constitutional: absent: Fatigue, Fever - EENT Eyes: absent: Blurred Vision, Change in Vision Nose/Mouth/Throat: absent: Nasal Congestion, Nasal Discharge - Cardiovascular Cardiovascular: Chest Pain. absent: Irregular Heart Rhythm - Respiratory Respiratory: Dyspnea. absent: Cough, Hemoptysis - Gastrointestinal Gastrointestinal: absent: Abdominal Pain, Diarrhea, Vomiting - Genitourinary Genitourinary: absent: Difficulty Urinating, Dysuria - Integumentary Integumentary: absent: New Lesions, Rash - Neurological Neurological: absent: Dizziness, Numbness, Syncope, Tingling - Hematologic/Lymphatic Hematologic: absent: Easy Bleeding, Easy Bruising Past Patient History - Infectious Disease Hx of Infectious Diseases: None - Tetanus Immunizations Tetanus Immunization: Unknown - Past Medical History & Family History Past Medical History?: Yes - Past Social History Smoking Status: Heavy Smoker > 10 Cigarettes Daily - CARDIAC Hx Hypertension: Yes Other/Comment: cellulitis - PULMONARY Hx Asthma: Yes Hx Bronchitis: Yes Hx Chronic Obstructive Pulmonary Disease (COPD): Yes Hx Emphysema: Yes Other/Comment: pneumothorax left chest tube 15 yrs ago, pt needed lung sx after removal of chest tube lung "tore apart" has been having chronic pain to that area intermittent ever since as per pt - NEUROLOGICAL Hx Neurological Disorder: No - HEENT Hx HEENT Problems: No - RENAL Hx Chronic Kidney Disease: No - ENDOCRINE/METABOLIC Hx Endocrine Disorders: No - HEMATOLOGICAL/ONCOLOGICAL Hx Hepatitis C: Yes - INTEGUMENTARY Hx Dermatological Problems: Yes Other/Comment: cellulitis, flat red rash around neck and chest, cyst to upper back, multiple skin discolorations to b/l arms, poor hygeine, dirty and foul smelling, has not showered in 4 days, homeless as per pt - MUSCULOSKELETAL/RHEUMATOLOGICAL Hx Falls: No - GASTROINTESTINAL Hx Gastrointestinal Disorders: No - GENITOURINARY/GYNECOLOGICAL Hx Genitourinary Disorders: No - PSYCHIATRIC Hx Anxiety: Yes Hx Substance Use: Yes (quit heroine 2 wks ago/quit meth yrs ago) Other/Comment: stopped heroin use 2 wks ago, quit methadone "yrs ago", drinks alcohol called 4 frances about 9 drinks a day, smokes more that 10 cigs a day, hasn 't showered in 4 days homeless as per pt - SURGICAL HISTORY Hx Appendectomy: Yes Other/Comment: As per patient, she has had "lung surgery". - ANESTHESIA Hx Anesthesia: Yes Hx Anesthesia Reactions: No Hx Malignant Hyperthermia: No Meds Allergies/Adverse Reactions: Allergies Allergy/AdvReac Type Severity Reaction Status Date / Time No Known Allergies Allergy Verified 08/26/16 21:41 Physical Exam - Constitutional Appears: Non-toxic, No Acute Distress - Head Exam Head Exam: ATRAUMATIC, NORMAL INSPECTION, NORMOCEPHALIC - Eye Exam Eye Exam: EOMI, Normal appearance, PERRL - ENT Exam ENT Exam: Mucous Membranes Dry - Neck Exam Neck exam: Positive for: Normal Inspection. Negative for: Lymphadenopathy - Respiratory Exam Respiratory Exam: Decreased Breath Sounds, Wheezes (Diffuse b/l), NORMAL BREATHING PATTERN. absent: Rhonchi - Cardiovascular Exam Cardiovascular Exam: RRR, +S1, +S2 - GI/Abdominal Exam GI & Abdominal Exam: Normal Bowel Sounds, Soft. absent: Tenderness - Extremities Exam Extremities exam: Positive for: normal inspection, pedal edema (+1 b/l). Negative for: calf tenderness - Neurological Exam Neurological exam: Alert, CN II-XII Intact, Oriented x3 - Psychiatric Exam Psychiatric exam: Normal Affect, Normal Mood - Skin Skin Exam: Intact, Normal Color, Warm Results - Vital Signs Recent Vital Signs: Last Vital Signs Temp 98.1 F 08/26/16 21:38 Pulse 112 H 08/27/16 01:15 Resp 22 08/27/16 01:15 BP 119/67 08/27/16 01:15 Pulse Ox 95 08/27/16 01:15 - Labs Result Diagrams: 08/26/16 22:30 08/26/16 22:30 Labs: Laboratory Results - last 24 hr 08/26/16 08/26/16 22:30 22:30 WBC 8.0 D RBC 4.13 Hgb 14.6 Hct 42.8 MCV 103.6 MCH 35.4 H MCHC 34.1 RDW 13.4 Plt Count 338 MPV 10.1 Sodium 141 Potassium 3.1 L Chloride 100 Carbon Dioxide 33 Anion Gap 11 BUN 5 L Creatinine 0.5 Est GFR ( Amer) > 60 Est GFR (Non-Af Amer) > 60 Random Glucose 107 Calcium 8.5 Total Bilirubin 0.8 AST 44 H ALT 50 Alkaline Phosphatase 69 Total Protein 6.5 Albumin 3.4 Globulin 3.1 Albumin/Globulin Ratio 1.1 Assessment & Plan - Assessment and Plan (Free Text) Plan: 46 y/o F with PMH of COPD, Hepatitis C, IV drug abuse, alcohol abuse, and delirium tremens presents with COPD exacerbation. Pt will be admitted to hospital for further monitoring and management of respiratory status. Pt will be given IVF, nebulizer treatments, and IV steroids for SOB. 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 1. COPD exacerbation Duonebs scheduled and prn Solumedrol 40 mg q12h Levaquin 500 mg daily NC @ 2L 2. Alcohol withdrawal Librium 25 q12h Ativan 1 mg q4h prn Banana bag @ 100 cc/hr 3. Tobacco use Tobacco cessation counseled Nicotine patch 4. Hypokalemia Repleted in ED Recheck in AM 5. PPX Heparin Protonix Zofran Seen, reviewed, and discussed with attending MARTHA PisanoY-1 <Janae CHRISTENSEN,Alfa - Last Filed: 08/27/16 06:07> Results - Vital Signs Recent Vital Signs: Last Vital Signs Temp 98.4 F 08/27/16 05:33 Pulse 107 H 08/27/16 05:33 Resp 19 08/27/16 05:33 BP 125/76 08/27/16 05:33 Pulse Ox 99 08/27/16 05:33 - Labs Result Diagrams: 08/26/16 22:30 08/26/16 22:30 Attending/Attestation - Attestation I have personally seen and examined this patient.: Yes I have fully participated in the care of the patient.: Yes I have reviewed all pertinent clinical information: Yes Notes (Text): 08/27/16 06:04 -I agree with the above H&P completed by the resident physician. Briefly, the patient is a 46 year old woman with a history of COPD, Hepatitis C , IV drug abuse, chronic liver disease and chronic alcohol abuse, who is being admitted for acute COPD exacerbation and acute alcohol withdrawal. She will be treated with Duo-nebs both ATC and PRN, IV Solumedrol and prophylactic IV Levaquin. Also, she will receive Librium BID as well as PRN IV Ativan for agitation.
[2016-08-27] MEDS ORDERED: Albuterol-Ipratrop 3 mg / 0.5 (3 ml) UD IH PRN (02:10)
[2016-08-27] MEDS: Folic Acid 1 MG, Thiamine 100 MG, Multivitamin (MVI) 10 ML in Dextrose 5% In Water 1,00... IV SCH ×2 (02:45→14:52)
[2016-08-27] MEDS: Albuterol-Ipratrop 3 mg / 0.5 (3 ml) UD IH SCH ×6 (04:13→23:23)
[2016-08-27] MEDS: Pantoprazole 40 mg EC Tab PO SCH (06:03)
[2016-08-27 08:21] LABS: ADD MANUAL DIFF? NO
[2016-08-27 08:24] LABS: BASO # 0.01 K/mm3 (0.0-2.0); BASO % 0.2 % (0.0-3.0); GRAN # 4.53 (1.4-6.5); GRAN % 86.5 % (50.0-68.0); HEMATOCRIT 39.3 % (36.0-48.0); LYMPH # 0.6 (1.2-3.4); MEAN CELL VOLUME 103.7 fL (80.0-105.0); MEAN CORPUSCULAR HEMOGLOBIN 35.1 pg (25.0-35.0); MEAN CORPUSCULAR HGB CONC 33.8 g/dl (31.0-37.0); MONO # 0.1 (0.1-0.6); MONO % 1.3 % (1.0-6.0); PLATELET COUNT 339 10^3/uL (120.0-450.0); RED CELL DISTRIBUTION WIDTH 13.3 % (11.5-14.5); WHITE BLOOD COUNT 5.2 10^3/ul (4.5-11.0)
[2016-08-27 08:41] LABS: ALB/GLOB RATIO 1.1 (1.1-1.8); ALKALINE PHOSPHATASE 65 U/L (38-133); ALT/SGPT 48 U/L (7-56); AST/SGOT 29 U/L (15-39); BILIRUBIN,TOTAL 0.5 mg/dL (0.2-1.3); BLOOD UREA NITROGEN 8 mg/dL (7-21); CALCIUM 8.8 mg/dL (8.4-10.5); CARBON DIOXIDE 28 mmol/L (21-33); CHLORIDE 103 mmol/L (98-107); GFR AFRICAN-AMERICAN > 60; GLUCOSE,RANDOM 193 mg/dL (70-110); MAGNESIUM 1.8 mg/dL (1.7-2.2); PHOSPHOROUS 2.5 mg/dL (2.5-4.5); POTASSIUM 3.6 mmol/L (3.6-5.0); SODIUM 139 mmol/L (132-148); TOTAL PROTEIN 6.4 g/dL (5.8-8.3)
--- NOTE | 2016-08-27 09:04 | RAD ---
HISTORY: sob COMPARISON: 08/08/2016 FINDINGS: LUNGS: No focal airspace opacity. PLEURA: No significant pleural effusion identified, no pneumothorax apparent. CARDIOVASCULAR: Normal. OSSEOUS STRUCTURES: New rib fractures, partially healing involving the 7th and 8th posterior ribs on the right. VISUALIZED UPPER ABDOMEN: Normal. OTHER FINDINGS: None. IMPRESSION: No focal airspace opacity. Other findings as above.
--- NOTE | 2016-08-27 10:05 | CARD ---
APPROVED REPORT EKG Measurement Heart [id number] <Conclusion> Normal sinus rhythm RVCD NSSTW changes
[2016-08-27] MEDS: MethylPREDNISolone 40 mg Vial IV SCH ×2 (10:47→21:23)
[2016-08-27] MEDS: levoFLOXacin 500 mg in D5W 500 MG/100 ML BAG IVPB SCH (10:48)
[2016-08-28] MEDS: Folic Acid 1 MG, Thiamine 100 MG, Multivitamin (MVI) 10 ML in Dextrose 5% In Water 1,00... IV SCH ×5 (00:53→23:34)
[2016-08-28] MEDS: Albuterol-Ipratrop 3 mg / 0.5 (3 ml) UD IH SCH ×5 (04:00→20:30)
[2016-08-28] MEDS: Pantoprazole 40 mg EC Tab PO SCH (05:34)
[2016-08-28 06:33] LABS: ADD MANUAL DIFF? NO
[2016-08-28 06:47] LABS: ALB/GLOB RATIO 1.1 (1.1-1.8); ALKALINE PHOSPHATASE 56 U/L (38-133); ALT/SGPT 43 U/L (7-56); AST/SGOT 41 U/L (15-39); BILIRUBIN,TOTAL 0.7 mg/dL (0.2-1.3); BLOOD UREA NITROGEN 9 mg/dL (7-21); CALCIUM 8.5 mg/dL (8.4-10.5); CARBON DIOXIDE 29 mmol/L (21-33); CHLORIDE 100 mmol/L (98-107); GFR AFRICAN-AMERICAN > 60; GLUCOSE,RANDOM 143 mg/dL (70-110); MAGNESIUM 1.9 mg/dL (1.7-2.2); PHOSPHOROUS 3.4 mg/dL (2.5-4.5); POTASSIUM 4.3 mmol/L (3.6-5.0); SODIUM 136 mmol/L (132-148)
[2016-08-28 07:01] LABS: BASO # 0.01 K/mm3 (0.0-2.0); BASO % 0.1 % (0.0-3.0); GRAN # 14.66 (1.4-6.5); GRAN % 89.5 % (50.0-68.0); HEMATOCRIT 38.9 % (36.0-48.0); LYMPH # 1.2 (1.2-3.4); MEAN CORPUSCULAR HEMOGLOBIN 34.5 pg (25.0-35.0); MEAN CORPUSCULAR HGB CONC 33.2 g/dl (31.0-37.0); MEAN PLATELET VOLUME 10.2 fl (7.0-11.0); MONO # 0.6 (0.1-0.6); MONO % 3.4 % (1.0-6.0); PLATELET COUNT 351 10^3/uL (120.0-450.0); RED CELL DISTRIBUTION WIDTH 13.1 % (11.5-14.5); WHITE BLOOD COUNT 16.4 10^3/ul (4.5-11.0)
[2016-08-28] MEDS: MethylPREDNISolone 40 mg Vial IV SCH ×2 (09:28→21:41)
[2016-08-28] MEDS: levoFLOXacin 500 mg in D5W 500 MG/100 ML BAG IVPB SCH (09:30)
--- NOTE | 2016-08-28 10:14 | CP.PCM.PN ---
Subjective - Date & Time of Evaluation Date of Evaluation: 08/28/16 Time of Evaluation: 08:45 - Subjective Subjective: Patient seen and examined at bedside. Complains of cough and wheezing. Complains of alcohol withdrawal tremor slightly improved from yesterday. Denies any chest pain or abdominal pain. Objective - Vital Signs/Intake and Output Vital Signs (last 24 hours): Temp Pulse Resp BP Pulse Ox 97.9 F 70 20 142/96 H 99 08/28/16 05:26 08/28/16 05:41 08/28/16 05:26 08/28/16 05:26 08/28/16 05:26 Intake and Output: 08/28/16 08/28/16 06:59 18:59 Intake Total 2500 240 Balance 2500 240 - Medications Medications: Current Medications Acetaminophen (Tylenol 325mg Tab) 650 mg PO Q4H PRN PRN Reason: Pain, Mild (1-3) Last Admin: 08/27/16 20:52 Dose: 650 mg Albuterol/Ipratropium (Duoneb 3 Mg/0.5 Mg (3 Ml) Ud) 3 ml IH [id number] [facility] Last Admin: 08/28/16 04:00 Dose: Not Given Albuterol/Ipratropium (Duoneb 3 Mg/0.5 Mg (3 Ml) Ud) 3 ml IH Q2H PRN PRN Reason: Shortness of Breath Chlordiazepoxide (Librium) 25 mg PO Q8 JACK PRN Reason: Protocol Last Admin: 08/28/16 05:34 Dose: 25 mg Folic Acid 1 mg/ Thiamine HCl 100 mg/ Multivitamins/Vitamin C 10 ml/ Dextrose 1 ,011.2 mls @ 100 mls/hr IV .Q10H7M [facility] Last Admin: 08/28/16 08:48 Dose: Not Given Levofloxacin/Dextrose (Levaquin 500mg) 500 mg in 100 mls @ 100 mls/hr IVPB DAILY [facility] Last Admin: 08/28/16 09:30 Dose: 100 mls/hr Lorazepam (Ativan) 1 mg IVP Q4H PRN; Protocol PRN Reason: Anxiety Last Admin: 08/28/16 06:40 Dose: 1 mg Methylprednisolone (Solu-Medrol) 40 mg IV Q12 [facility] Last Admin: 08/28/16 09:28 Dose: 40 mg Nicotine (Nicoderm Cq) 1 patch TD DAILY [facility] Last Admin: 08/28/16 09:28 Dose: 1 patch Ondansetron HCl (Zofran Inj) 4 mg IVP Q4H PRN PRN Reason: Nausea/Vomiting Pantoprazole Sodium (Protonix Ec Tab) 40 mg PO 0630 [facility] Last Admin: 08/28/16 05:34 Dose: 40 mg - Labs Labs: 08/28/16 06:15 08/28/16 06:15 - Constitutional Appears: Well, No Acute Distress - Head Exam Head Exam: NORMAL INSPECTION - Eye Exam Eye Exam: EOMI - ENT Exam ENT Exam: Normal Exam - Neck Exam Neck Exam: Full ROM - Respiratory Exam Respiratory Exam: Rhonchi, Wheezes - Cardiovascular Exam Cardiovascular Exam: REGULAR RHYTHM, +S1, +S2 - GI/Abdominal Exam GI & Abdominal Exam: Soft, Normal Bowel Sounds. absent: Tenderness, Organomegaly - Extremities Exam Extremities Exam: Normal Inspection - Neurological Exam Neurological Exam: Alert, Awake, Oriented x3 Additional comments: +tremor - Psychiatric Exam Psychiatric exam: Normal Affect, Normal Mood Assessment and Plan - Assessment and Plan (Free Text) Plan: 46 year old homeless female with past medical history of COPD, hepatitis C, chronic ETOH abuse with multiple admissions related to ETOH and COPD presented with shortness of breath secondary to COPD exacerbation and alcohol withdrawal. 1. Alcohol withdrawal - Continue with banana bag, librium and ativan prn for withdrawal symptoms. She was counselled on multiple occasions regarding alcohol abstinence; unfortunately she fails to comply. 2. COPD exaceration - Secondary to noncompliance and chronic smoking history. Continue with iv solumedrol, duonebs and levaquin. She was counselled on smoking cessation. Continue with nicoderm patch. 3. Leukocytosis - Likely secondary to steroids. CXR negative for infiltrates. UA was negative. Will continue to monitor. 4. Hepatitis C - Continue to monitor LFTs. Recommended outpatient follow up with [facility]. Continue with protonix for GI prophylaxis and heparin for DVT prophylaxis.
[2016-08-29] MEDS: Albuterol-Ipratrop 3 mg / 0.5 (3 ml) UD IH SCH ×4 (04:00→11:59)
[2016-08-29 05:15] VITALS: O2SAT 99
[2016-08-29] MEDS: Folic Acid 1 MG, Thiamine 100 MG, Multivitamin (MVI) 10 ML in Dextrose 5% In Water 1,00... IV SCH ×2 (05:24→09:38)
[2016-08-29] MEDS: Pantoprazole 40 mg EC Tab PO SCH (05:45)
[2016-08-29 06:44] LABS: ADD MANUAL DIFF? NO
[2016-08-29 07:14] LABS: GRAN # 12.13 (1.4-6.5); GRAN % 85.5 % (50.0-68.0); LYMPH # 1.4 (1.2-3.4); LYMPH % 9.9 % (22.0-35.0); MEAN CELL VOLUME 104.9 fL (80.0-105.0); MEAN CORPUSCULAR HEMOGLOBIN 34.5 pg (25.0-35.0); MEAN CORPUSCULAR HGB CONC 32.9 g/dl (31.0-37.0); MEAN PLATELET VOLUME 10.1 fl (7.0-11.0); MONO # 0.7 (0.1-0.6); MONO % 4.6 % (1.0-6.0); PLATELET COUNT 367 10^3/uL (120.0-450.0); RED CELL DISTRIBUTION WIDTH 13.3 % (11.5-14.5); WHITE BLOOD COUNT 14.2 10^3/ul (4.5-11.0)
[2016-08-29 07:35] LABS: ALB/GLOB RATIO 1.1 (1.1-1.8); ALKALINE PHOSPHATASE 58 U/L (38-133); ALT/SGPT 55 U/L (7-56); AST/SGOT 31 U/L (15-39); BILIRUBIN,TOTAL 0.6 mg/dL (0.2-1.3); BLOOD UREA NITROGEN 13 mg/dL (7-21); CALCIUM 8.5 mg/dL (8.4-10.5); CARBON DIOXIDE 32 mmol/L (21-33); CHLORIDE 99 mmol/L (98-107); GFR AFRICAN-AMERICAN > 60; GLUCOSE,RANDOM 141 mg/dL (70-110); PHOSPHOROUS 3.8 mg/dL (2.5-4.5); POTASSIUM 4.5 mmol/L (3.6-5.0); SODIUM 135 mmol/L (132-148); TOTAL PROTEIN 6.3 g/dL (5.8-8.3)
[2016-08-29] MEDS: levoFLOXacin 500 mg in D5W 500 MG/100 ML BAG IVPB SCH (09:07)
[2016-08-29] MEDS: MethylPREDNISolone 40 mg Vial IV SCH (09:08)
[2016-08-29 12:18] VITALS: BP 140/92; PULSE 81; RESP 20; TEMP 98.9
--- NOTE | 2016-08-29 12:27 | CP.PCM.DIS ---
<Moy Kelsey - Last Filed: 08/29/16 14:06> Provider - Provider Date of Admission: 08/27/16 01:59 Attending physician: Karolina Watson MD Time Spent in preparation of Discharge (in minutes): 25 Hospital Course - Lab Results Lab Results: Most Recent Lab Values WBC 14.2 10^3/ul (4.5-11.0) H 08/29/16 06:30 RBC 3.91 10^6/uL (3.5-6.1) 08/29/16 06:30 Hgb 13.5 gm/dL (12.0-16.0) 08/29/16 06:30 Hct 41.0 % (36.0-48.0) 08/29/16 06:30 MCV 104.9 fL (80.0-105.0) 08/29/16 06:30 MCH 34.5 pg (25.0-35.0) 08/29/16 06:30 MCHC 32.9 g/dl (31.0-37.0) 08/29/16 06:30 RDW 13.3 % (11.5-14.5) 08/29/16 06:30 Plt Count 367 10^3/uL (120.0-450.0) 08/29/16 06:30 MPV 10.1 fl (7.0-11.0) 08/29/16 06:30 Gran % 85.5 % (50.0-68.0) H 08/29/16 06:30 Lymph % (Auto) 9.9 % (22.0-35.0) L 08/29/16 06:30 [place] % (Auto) 4.6 % (1.0-6.0) 08/29/16 06:30 Eos % (Auto) 0.0 % (1.5-5.0) L 08/29/16 06:30 Baso % (Auto) 0.0 % (0.0-3.0) 08/29/16 06:30 Gran # 12.13 (1.4-6.5) H 08/29/16 06:30 Lymph # 1.4 (1.2-3.4) 08/29/16 06:30 [place] # 0.7 (0.1-0.6) H 08/29/16 06:30 Eos # 0.0 (0.0-0.7) 08/29/16 06:30 Baso # 0.00 K/mm3 (0.0-2.0) 08/29/16 06:30 Sodium 135 mmol/L (132-148) 08/29/16 06:30 Potassium 4.5 mmol/L (3.6-5.0) 08/29/16 06:30 Chloride 99 mmol/L (98-107) 08/29/16 06:30 Carbon Dioxide 32 mmol/L (21-33) 08/29/16 06:30 Anion Gap 9 (10-20) L 08/29/16 06:30 BUN 13 mg/dL (7-21) 08/29/16 06:30 Creatinine 0.6 mg/dL (0.5-1.4) 08/29/16 06:30 Est GFR ( Amer) > 60 08/29/16 06:30 Est GFR (Non-Af Amer) > 60 08/29/16 06:30 Random Glucose 141 mg/dL (70-110) H 08/29/16 06:30 Calcium 8.5 mg/dL (8.4-10.5) 08/29/16 06:30 Phosphorus 3.8 mg/dL (2.5-4.5) 08/29/16 06:30 Magnesium 2.0 mg/dL (1.7-2.2) 08/29/16 06:30 Total Bilirubin 0.6 mg/dL (0.2-1.3) 08/29/16 06:30 AST 31 U/L (15-39) 08/29/16 06:30 ALT 55 U/L (7-56) 08/29/16 06:30 Alkaline Phosphatase 58 U/L (38-133) 08/29/16 06:30 Total Protein 6.3 g/dL (5.8-8.3) 08/29/16 06:30 Albumin 3.3 g/dL (3.0-4.8) 08/29/16 06:30 Globulin 3.0 gm/dL 08/29/16 06:30 Albumin/Globulin Ratio 1.1 (1.1-1.8) 08/29/16 06:30 Urine Opiates Screen Negative (NEGATIVE) 08/27/16 01:40 Urine Methadone Screen Negative (NEGATIVE) 08/27/16 01:40 Ur Barbiturates Screen Negative (NEGATIVE) 08/27/16 01:40 Ur Phencyclidine Scrn Negative (NEGATIVE) 08/27/16 01:40 Ur Amphetamines Screen Negative (NEGATIVE) 08/27/16 01:40 U Benzodiazepines Scrn Positive (NEGATIVE) H 08/27/16 01:40 U Oth Cocaine Metabols Negative (NEGATIVE) 08/27/16 01:40 U Cannabinoids Screen Negative (NEGATIVE) 08/27/16 01:40 Alcohol, Quantitative 17 mg/dL (0-10) H 08/27/16 08:00 - Hospital Course Hospital Course: 08/27:46F with PMHx of COPD, Hepatitis C, IV drug abuse, alcohol abuse, and delirium tremens presents to the ED for 4 day history of shortness of breath. Pt states she woke up with increased shortness of breath, as she has shortness of breath at baseline. Pt states she has had a productive cough during this time as well, bringing up white phlegm. Pt reports taking albuterol at home and was using her inhaler up to 20x per day, which did not help. Pt states she also has some chest pain associated with her coughing. Pt admits that she is still smoking 1/2 ppd and drinking alcohol multiple times per day. Pt states her last drink was right before she came into the ED. Pt denies N/V/D, sick contacts, fever, numbness, tingling, headache. Librium therapy was started. 08/28: Patient still felt some SOB and productive cough 08/29: Patient reports she feels much better today compared to admission day. Patient states she has some cough with white sputum. Patient requesting to be discharged. Patient was educated extensively on the reasons as to why she must stop drinking and smoking. Patient admits that she will not stop and will continue to drink and smoke even though she is aware these activities are what' s making her medical condition worse and the reason for her returning to the hospital. The patient was provided education and she understood but admitted she would not be following any instructions as it is not in her will to stop those activities. The risks were clearly explained to the patient and she demonstrated understanding. Patient was also educated on the proper way to use inhalers. Patient was discharged w/ Ventolin, Pulmicort, and Medrol Dose pack. Above is a brief description of the patient's hospital course. For more details please refer to the medical records. Discharge Exam - Head Exam Head Exam: NORMAL INSPECTION - Eye Exam Eye Exam: Normal appearance - ENT Exam ENT Exam: Mucous Membranes Moist - Respiratory Exam Respiratory Exam: Decreased Breath Sounds. absent: Rales, Rhonchi, Wheezes - Cardiovascular Exam Cardiovascular Exam: +S1, +S2 - GI/Abdominal Exam GI & Abdominal Exam: Soft. absent: Tenderness - Neurological Exam Neurological exam: Alert, Oriented x3 - Psychiatric Exam Psychiatric exam: Normal Mood - Skin Skin Exam: Dry, Normal Color, Warm Discharge Plan - Discharge Medications Prescriptions: Budesonide [Pulmicort Flexhaler] 180 mcg IH Q12 #60 aer.pow.ba Methylprednisolone [Medrol Dose Pack (21 tabs)] 4 mg PO DAILY #21 mg - Follow Up Plan Condition: STABLE Disposition: HOME/ ROUTINE Instructions: How to Stop Smoking (DC), Cigarette Smoking and Your Health (GEN) , COPD (Chronic Obstructive Pulmonary Disease) (DC) <Dulce CHRISTENSEN,[facility] - Last Filed: 08/29/16 17:49> Provider - Provider Date of Admission: 08/27/16 01:59 Attending physician: Karolina Watson MD Time Spent in preparation of Discharge (in minutes): 31 Hospital Course - Lab Results Lab Results: Most Recent Lab Values WBC 14.2 10^3/ul (4.5-11.0) H 08/29/16 06:30 RBC 3.91 10^6/uL (3.5-6.1) 08/29/16 06:30 Hgb 13.5 gm/dL (12.0-16.0) 08/29/16 06:30 Hct 41.0 % (36.0-48.0) 08/29/16 06:30 MCV 104.9 fL (80.0-105.0) 08/29/16 06:30 MCH 34.5 pg (25.0-35.0) 08/29/16 06:30 MCHC 32.9 g/dl (31.0-37.0) 08/29/16 06:30 RDW 13.3 % (11.5-14.5) 08/29/16 06:30 Plt Count 367 10^3/uL (120.0-450.0) 08/29/16 06:30 MPV 10.1 fl (7.0-11.0) 08/29/16 06:30 Gran % 85.5 % (50.0-68.0) H 08/29/16 06:30 Lymph % (Auto) 9.9 % (22.0-35.0) L 08/29/16 06:30 [place] % (Auto) 4.6 % (1.0-6.0) 08/29/16 06:30 Eos % (Auto) 0.0 % (1.5-5.0) L 08/29/16 06:30 Baso % (Auto) 0.0 % (0.0-3.0) 08/29/16 06:30 Gran # 12.13 (1.4-6.5) H 08/29/16 06:30 Lymph # 1.4 (1.2-3.4) 08/29/16 06:30 [place] # 0.7 (0.1-0.6) H 08/29/16 06:30 Eos # 0.0 (0.0-0.7) 08/29/16 06:30 Baso # 0.00 K/mm3 (0.0-2.0) 08/29/16 06:30 Sodium 135 mmol/L (132-148) 08/29/16 06:30 Potassium 4.5 mmol/L (3.6-5.0) 08/29/16 06:30 Chloride 99 mmol/L (98-107) 08/29/16 06:30 Carbon Dioxide 32 mmol/L (21-33) 08/29/16 06:30 Anion Gap 9 (10-20) L 08/29/16 06:30 BUN 13 mg/dL (7-21) 08/29/16 06:30 Creatinine 0.6 mg/dL (0.5-1.4) 08/29/16 06:30 Est GFR ( Amer) > 60 08/29/16 06:30 Est GFR (Non-Af Amer) > 60 08/29/16 06:30 Random Glucose 141 mg/dL (70-110) H 08/29/16 06:30 Calcium 8.5 mg/dL (8.4-10.5) 08/29/16 06:30 Phosphorus 3.8 mg/dL (2.5-4.5) 08/29/16 06:30 Magnesium 2.0 mg/dL (1.7-2.2) 08/29/16 06:30 Total Bilirubin 0.6 mg/dL (0.2-1.3) 08/29/16 06:30 AST 31 U/L (15-39) 08/29/16 06:30 ALT 55 U/L (7-56) 08/29/16 06:30 Alkaline Phosphatase 58 U/L (38-133) 08/29/16 06:30 Total Protein 6.3 g/dL (5.8-8.3) 08/29/16 06:30 Albumin 3.3 g/dL (3.0-4.8) 08/29/16 06:30 Globulin 3.0 gm/dL 08/29/16 06:30 Albumin/Globulin Ratio 1.1 (1.1-1.8) 08/29/16 06:30 Urine Opiates Screen Negative (NEGATIVE) 08/27/16 01:40 Urine Methadone Screen Negative (NEGATIVE) 08/27/16 01:40 Ur Barbiturates Screen Negative (NEGATIVE) 08/27/16 01:40 Ur Phencyclidine Scrn Negative (NEGATIVE) 08/27/16 01:40 Ur Amphetamines Screen Negative (NEGATIVE) 08/27/16 01:40 U Benzodiazepines Scrn Positive (NEGATIVE) H 08/27/16 01:40 U Oth Cocaine Metabols Negative (NEGATIVE) 08/27/16 01:40 U Cannabinoids Screen Negative (NEGATIVE) 08/27/16 01:40 Alcohol, Quantitative 17 mg/dL (0-10) H 08/27/16 08:00 Attending/Attestation - Attestation I have personally seen and examined this patient.: Yes I have fully participated in the care of the patient.: Yes I have reviewed all pertinent clinical information, including history, physical exam and plan: Yes Notes (Text): 08/29/16 17:47 Patient was seen and examined with medical scheduler .Agreed with resident assessment and plan. 46F with PMH of Asthma, chronic smoking, alcohol abuse , hepatitic C, non compliance, multiple admission to the hospital for asthma exacerbation due to non compliance and ongoing smoking and alcohol abuse was admitted with worseing dyspnea due to asthma/COPD exacerbation, feeling better, wheezing has improved, does not want to stay in the hospital, will switch to oral prednisone , albuterol and steroid inhaler.There is no sign of alcohol withdrawal at the time of discharge.The issue of ongoing smoking and alcohol abuse was discussed in detail with patient.The risk of readmission is high due to non compliance and ongoing smoking and alcohol abuse. Management plan was discussed in detail with patient Education was provided. 08/29/16 17:48
== END 2016-08-29 13:55 | disposition home or self-care (01) | DRG 88 ==
LOC: ED 21:34 → ERH 08-27 01:59 → 2RNO 08-27 03:24
PROVIDERS: ADMIT Internal Medicine; ATTEND Internal Medicine
PROC: HZ2ZZZZ Detoxification Services for Substance Abuse Treatment (ICD-10-PCS; principal; 2016-08-27)
DX: J44.1 Chronic obstructive pulmonary disease with (acute) exacerbation (principal); F10.231 Alcohol dependence with withdrawal delirium; B19.20 Unspecified viral hepatitis C without hepatic coma; E87.6 Hypokalemia; F19.10 Other psychoactive substance abuse, uncomplicated; F17.210 Nicotine dependence, cigarettes, uncomplicated; D72.829 Elevated white blood cell count, unspecified; T38.0X5A Adverse effect of glucocorticoids and synthetic analogues, initial encounter; Z91.19 Patient's noncompliance with other medical treatment and regimen; Z80.1 Family history of malignant neoplasm of trachea, bronchus and lung

== ENCOUNTER 2016-09-05 00:11 | Emergency (ER) | payer MEDICAID ==
[2016-09-05 00:19] VITALS: BMI 23.0
[2016-09-05] MEDS ORDERED: Albuterol-Ipratrop 3 mg / 0.5 (3 ml) UD IH STA ×3 (00:38→02:23)
--- NOTE | 2016-09-05 00:38 | ED PDOC ---
Arrival/HPI - General Chief Complaint: Shortness Of Breath Time Seen by Provider: 09/05/16 00:18 Historian: Patient - History of Present Illness Narrative History of Present Illness (Text): 09/05/16 00:37 Fani Chambers is a 46 year old female smoker, whose past medical history includes asthma, COPD, Hepatitis C, alcohol abuse, IV and drug abuse, who presents to the ED complaining of shortness of breath and wheezing tonight. Patient states symptoms are consistent with previous episodes of asthma. The patient denies any fever, chills, chest pain, abdominal pain, nausea, vomiting, diarrhea, urinary symptoms, back pain, neck pain, headache, dizziness, or any other complaints. Symptom Onset: Gradual Symptom Course: Unchanged Activities at Onset: Rest, Light Context: Home Past Medical History - Provider Review Nursing Documentation Reviewed: Yes - Infectious Disease Hx of Infectious Diseases: None - Tetanus Immunization Tetanus Immunization: Unknown - Cardiac Hx Cardiac Disorders: No - Pulmonary Hx Respiratory Disorders: Yes Hx Asthma: Yes Hx Bronchitis: Yes Hx Chronic Obstructive Pulmonary Disease (COPD): Yes Hx Emphysema: Yes Other/Comment: pneumothorax left chest tube 15 yrs ago, pt needed lung sx after removal of chest tube lung "tore apart" - Neurological Hx Neurological Disorder: No - HEENT Hx HEENT Disorder: No - Renal Hx Renal Disorder: No - Endocrine/Metabolic Hx Endocrine Disorders: No - Hematological/Oncological Hx Blood Disorders: Yes Hx Hepatitis C: Yes - Integumentary Hx Dermatological Disorder: Yes Other/Comment: cellulitis - Musculoskeletal/Rheumatological Hx Falls: Yes - Gastrointestinal Hx Gastrointestinal Disorders: No - Genitourinary/Gynecological Hx Genitourinary Disorders: No Hx Sexually Transmitted Diseases: Yes (trichomonas) - Psychiatric Hx Psychophysiologic Disorder: Yes Hx Anxiety: Yes Hx Depression: Yes Hx Substance Use: Yes (heroin) Other/Comment: etoh, substance abuse - Surgical History Hx Appendectomy: Yes Other/Comment: As per pt, "lung surgery," tonsillectomy - Anesthesia Hx Anesthesia: Yes Hx Anesthesia Reactions: No Hx Malignant Hyperthermia: No - Suicidal Assessment Feels Threatened In Home Enviroment: No Family/Social History - Physician Review Nursing Documentation Reviewed: Yes Family/Social History: No Known Family HX Smoking Status: Heavy Smoker > 10 Cigarettes Daily Hx Alcohol Use: Yes (daily -"as much as i can afford") Frequency of alcohol use: Daily Hx Substance Use: Yes (heroin) Substance used: HEROINE Hx Substance Use Treatment: Yes Allergies/Home Meds Allergies/Adverse Reactions: Allergies No Known Allergies Allergy (Verified 08/26/16 21:41) Home Medications: Home Meds Medication Instructions Recorded Confirmed Albuterol HFA [Ventolin HFA 90 2 puff IH PRN PRN 08/27/16 09/05/16 mcg/actuation (8 g)] Review of Systems - Physician Review All systems were reviewed & negative as marked: Yes - Review of Systems Constitutional: Normal. absent: Fevers Eyes: Normal ENT: Normal Respiratory: SOB, Wheezing. absent: Cough Cardiovascular: Normal. absent: Chest Pain Gastrointestinal: Normal. absent: Abdominal Pain, Diarrhea, Nausea, Vomiting Genitourinary Female: Normal. absent: Dysuria, Frequency, Hematuria, Urine Output Changes Musculoskeletal: Normal. absent: Back Pain, Neck Pain Skin: Normal. absent: Rash Neurological: Normal. absent: Headache, Dizziness Endocrine: Normal Hemo/Lymphatic: Normal Psychiatric: Normal Physical Exam Vital Signs Reviewed: Yes Vital Signs Temp Pulse Resp BP Pulse Ox 09/05/16 02:11 89 20 110/70 100 09/05/16 01:48 26 H 09/05/16 00:20 98.2 F 96 H 18 113/74 98 Temperature: Afebrile Blood Pressure: Normal Pulse: Regular Respiratory Rate: Normal Appearance: Positive for: Well-Appearing, Non-Toxic, Comfortable Pain Distress: None Mental Status: Positive for: Alert and Oriented X 3 - Systems Exam Head: Present: Atraumatic, Normocephalic Pupils: Present: PERRL Extroacular Muscles: Present: EOMI Conjunctiva: Present: Normal Mouth: Present: Moist Mucous Membranes Neck: Present: Normal Range of Motion Respiratory/Chest: Present: Wheezes. No: Respiratory Distress, Accessory Muscle Use Cardiovascular: Present: Regular Rate and Rhythm, Normal S1, S2. No: Murmurs Abdomen: Present: Normal Bowel Sounds. No: Tenderness, Distention, Peritoneal Signs Back: Present: Normal Inspection Upper Extremity: Present: Normal Inspection. No: Cyanosis, Edema Lower Extremity: Present: Normal Inspection. No: Edema Neurological: Present: GCS=15, CN II-XII Intact, Speech Normal Skin: Present: Warm, Dry, Normal Color. No: Rashes Psychiatric: Present: Alert, Oriented x 3, Normal Insight, Normal Concentration Medical Decision Making ED Course and Treatment: 09/05/16 00:37 Impression: 46 y/o female c/o shortness of breath and wheezing. Differential Diagnosis included but are not limited to: asthma vs. COPD exacerbation Plan: -- Labs -- Duoneb -- Solu-medrol -- Reassess and disposition Prior Visits: Notes and results from previous visits were reviewed. On 08/26/2016, pt was seen in the ED for shortness of breath and wheezing. Pt was admitted to the hospital for further evaluation. 09/05/16 02:26 Pt. still remains symptomatic.Will require ongoing treatment Case discussed with territory sales manager medical, who is aware and agrees with plan. 09/05/16 02:[address] Vickie Louise, who is aware and agrees with plan. Accepts pt in to hospitalist service. Pt will go to Telemetry observation for COPD exacerbation. 09/05/16 03:24 reviewed EKG, NSR at [address]-segment elevations or depressions, no T-wave inversions, normal intervals. - Lab Interpretations Lab Results: 09/05/16 00:45 09/05/16 00:45 Lab Results 09/05/16 00:45: WBC 14.6 H, RBC 4.09, Hgb 14.4, Hct 41.7, MCV 102.0, MCH 35.2 H , MCHC 34.5, RDW 13.1, Plt Count 409, MPV 9.7 09/05/16 00:45: Sodium 138, Potassium 4.1, Chloride 100, Carbon Dioxide 31, Anion Gap 11, BUN 6 L, Creatinine 0.5, Est GFR ( Amer) > 60, Est GFR (Non -Af Amer) > 60, Random Glucose 95, Calcium 8.3 L, Total Bilirubin 0.6, AST 59 H , ALT 69 H, Alkaline Phosphatase 84, Total Protein 6.5, Albumin 3.5, Globulin 3.0, Albumin/Globulin Ratio 1.2 I have reviewed the lab results: Yes - RAD Interpretation Radiology Orders: 09/05/16 02:23 CHEST PORTABLE [RAD] Stat - Medication Orders Current Medication Orders: Albuterol/Ipratropium (Duoneb 3 Mg/0.5 Mg (3 Ml) Ud) 3 ml IH Q4 JACK Stop: 09/05/16 12:01 Arformoterol Tartrate (Brovana) 15 mcg IH [id number] JACK Budesonide (Pulmicort Respules) 0.25 mg IH [id number] JACK Heparin Sodium (Porcine) (Heparin) 5,000 units SC Q12 JACK PRN Reason: Protocol Folic Acid 1 mg/ Thiamine HCl 100 mg/ Multivitamins/Vitamin C 10 ml/ Dextrose 1 ,011.2 mls @ 100 mls/hr IV .Q10H7M [facility] Levofloxacin (Levaquin) 750 mg PO DAILY JACK Lorazepam (Ativan) 2 mg IVP Q4 PRN; Protocol PRN Reason: Symptoms of alcohol withdrawl Methylprednisolone (Solu-Medrol) 40 mg IVP Q12 [facility] Nicotine (Nicoderm Cq) 1 patch TD DAILY JACK Discontinued Medications Albuterol/Ipratropium (Duoneb 3 Mg/0.5 Mg (3 Ml) Ud) 3 ml IH ONCE STA Stop: 09/05/16 00:39 Last Admin: 09/05/16 00:53 Dose: 3 ml Albuterol/Ipratropium (Duoneb 3 Mg/0.5 Mg (3 Ml) Ud) 3 ml IH ONCE STA Stop: 09/05/16 02:01 Last Admin: 09/05/16 02:00 Dose: 3 ml Albuterol/Ipratropium (Duoneb 3 Mg/0.5 Mg (3 Ml) Ud) 3 ml IH ONCE STA Stop: 09/05/16 02:24 Last Admin: 09/05/16 02:35 Dose: 3 ml Albuterol/Ipratropium (Duoneb 3 Mg/0.5 Mg (3 Ml) Ud) 3 ml IH Q15M PRN PRN Reason: Shortness of Breath Stop: 09/05/16 04:01 Methylprednisolone (Solu-Medrol) 125 mg IVP ONCE ONE Stop: 09/05/16 00:39 Last Admin: 09/05/16 00:53 Dose: 125 mg - Rosettaibe Statement The provider has reviewed the documentation as recorded by the Jc Rosales Provider Attestation: All medical record entries made by the Rosettaibclive were at my direction and personally dictated by me. I have reviewed the chart and agree that the record accurately reflects my personal performance of the history, physical exam, medical decision making, and the department course for this patient. I have also personally directed, reviewed, and agree with the discharge instructions and disposition. Disposition/Present on Arrival - Present on Arrival Any Indicators Present on Arrival: No History of DVT/PE: No History of Uncontrolled Diabetes: No Urinary Catheter: No History of Decub. Ulcer: No History Surgical Site Infection Following: None - Disposition Have Diagnosis and Disposition been Completed?: Yes Diagnosis: COPD exacerbation Disposition: HOSPITALIZED Disposition Time: 02:55 Patient Plan: Observation Patient Problems: Current Active Problems Problem Status Onset COPD exacerbation Acute Condition: STABLE
[2016-09-05 01:01] LABS: HEMATOCRIT 41.7 % (36.0-48.0); MEAN CORPUSCULAR HEMOGLOBIN 35.2 pg (25.0-35.0); MEAN CORPUSCULAR HGB CONC 34.5 g/dl (31.0-37.0); MEAN PLATELET VOLUME 9.7 fl (7.0-11.0); RED CELL DISTRIBUTION WIDTH 13.1 % (11.5-14.5); WHITE BLOOD COUNT 14.6 10^3/ul (4.5-11.0)
[2016-09-05 01:11] LABS: ALB/GLOB RATIO 1.2 (1.1-1.8); ALKALINE PHOSPHATASE 84 U/L (38-133); ALT/SGPT 69 U/L (7-56); AST/SGOT 59 U/L (15-39); BILIRUBIN,TOTAL 0.6 mg/dL (0.2-1.3); BLOOD UREA NITROGEN 6 mg/dL (7-21); CALCIUM 8.3 mg/dL (8.4-10.5); CARBON DIOXIDE 31 mmol/L (21-33); CHLORIDE 100 mmol/L (98-107); GFR AFRICAN-AMERICAN > 60; GLUCOSE,RANDOM 95 mg/dL (70-110); POTASSIUM 4.1 mmol/L (3.6-5.0); SODIUM 138 mmol/L (132-148); TOTAL PROTEIN 6.5 g/dL (5.8-8.3)
[2016-09-05 02:20] VITALS: RESP 20; O2SAT 100
--- NOTE | 2016-09-05 03:04 | CP.PCM.HP ---
<Tresa Bill - Last Filed: 09/05/16 03:40> History of Present Illness - History of Present Illness History of Present Illness: 46 year old female with past medical history of COPD, Hepatitis C, IV drug abuse, and alcohol abuse presents to [facility] ED complaining of shortness of breath and wheezing. Patient reports of worsening shortness of breath for the past week. She used the inhaler but it did not resolved her symptom. Patient had a subjective fever yesterday and started having coughs today morning. Patient admits to smoking and drinking alcohol daily. Her last alcohol intake take was minutes before coming to [facility]. Patient was admitted multiple times in the past for the same complaint. Patient denies having headache, weakness, chills, chest pain, nausea, vomiting, abdominal pain, diarrhea, constipations, or urinary complains. PMD: none PMH: COPD, Hepatitis C, IV drug abuse, alcohol abuse Surgical Hx: Appendectomy Fam Hx: lung cancer Social Hx: Current smoker and alcohol drinker Allergies: NKDA Medications: Albuterol Present on Admission - Present on Admission Any Indicators Present on Admission: No History of DVT/PE: No History of Uncontrolled Diabetes: No Review of Systems - Constitutional Constitutional: As Per HPI, Fever. absent: Headache, Sleep Apnea - EENT Eyes: As Per HPI. absent: Irritation, Loss of Peripheral Vision Ears: As Per HPI. absent: Dizziness Nose/Mouth/Throat: As Per HPI. absent: Nasal Trauma, Dysphagia - Cardiovascular Cardiovascular: As Per HPI, Dyspnea. absent: Chest Pain, Chest Pain at Rest, Chest Pain with Activity - Respiratory Respiratory: As Per HPI, Cough, Dyspnea, Wheezing, Chest Congestion - Gastrointestinal Gastrointestinal: As Per HPI. absent: Diarrhea, Nausea, Vomiting - Genitourinary Genitourinary: As Per HPI. absent: Hematuria, Urinary Frequency, Urinary Hesitance - Musculoskeletal Musculoskeletal: As Per HPI. absent: Joint Swelling, Numbness, Tingling - Integumentary Integumentary: As Per HPI. absent: Lesions, Rash - Neurological Neurological: As Per HPI. absent: Dizziness, Syncope, Weakness - Psychiatric Psychiatric: As Per HPI. absent: Anxiety, Change in Appetite, Confusion - Endocrine Endocrine: As Per HPI - Hematologic/Lymphatic Hematologic: As Per HPI Past Patient History - Infectious Disease Hx of Infectious Diseases: None - Tetanus Immunizations Tetanus Immunization: Unknown - Past Medical History & Family History Past Medical History?: Yes - Past Social History Smoking Status: Heavy Smoker > 10 Cigarettes Daily - CARDIAC Hx Cardiac Disorders: No - PULMONARY Hx Respiratory Disorders: Yes Hx Asthma: Yes Hx Bronchitis: Yes Hx Chronic Obstructive Pulmonary Disease (COPD): Yes Hx Emphysema: Yes Other/Comment: pneumothorax left chest tube 15 yrs ago, pt needed lung sx after removal of chest tube lung "tore apart" - NEUROLOGICAL Hx Neurological Disorder: No - HEENT Hx HEENT Problems: No - RENAL Hx Chronic Kidney Disease: No - ENDOCRINE/METABOLIC Hx Endocrine Disorders: No - HEMATOLOGICAL/ONCOLOGICAL Hx Blood Disorders: Yes Hx Hepatitis C: Yes - INTEGUMENTARY Hx Dermatological Problems: Yes Other/Comment: cellulitis - MUSCULOSKELETAL/RHEUMATOLOGICAL Hx Falls: Yes - GASTROINTESTINAL Hx Gastrointestinal Disorders: No - GENITOURINARY/GYNECOLOGICAL Hx Genitourinary Disorders: No Hx Sexually Transmitted Disorders: Yes (trichomonas) - PSYCHIATRIC Hx Psychophysiologic Disorder: Yes Hx Anxiety: Yes Hx Depression: Yes Hx Substance Use: Yes (heroin) Other/Comment: etoh, substance abuse - SURGICAL HISTORY Hx Appendectomy: Yes Other/Comment: As per pt, "lung surgery," tonsillectomy - ANESTHESIA Hx Anesthesia: Yes Hx Anesthesia Reactions: No Hx Malignant Hyperthermia: No Meds Allergies/Adverse Reactions: Allergies Allergy/AdvReac Type Severity Reaction Status Date / Time No Known Allergies Allergy Verified 08/26/16 21:41 Physical Exam - Constitutional Appears: Non-toxic, No Acute Distress - Head Exam Head Exam: ATRAUMATIC, NORMAL INSPECTION, NORMOCEPHALIC - Eye Exam Eye Exam: EOMI, Normal appearance, PERRL - ENT Exam ENT Exam: Mucous Membranes Moist - Neck Exam Neck exam: Positive for: Normal Inspection - Respiratory Exam Respiratory Exam: Decreased Breath Sounds, Wheezes (diffused wheezing in all lung dean), NORMAL BREATHING PATTERN. absent: Respiratory Distress - Cardiovascular Exam Cardiovascular Exam: REGULAR RHYTHM, +S1, +S2 - GI/Abdominal Exam GI & Abdominal Exam: Normal Bowel Sounds, Soft. absent: Tenderness - Extremities Exam Extremities exam: Positive for: joint swelling, normal capillary refill, pedal edema, pedal pulses present. Negative for: normal inspection - Back Exam Back exam: NORMAL INSPECTION - Neurological Exam Neurological exam: Alert, Oriented x3 - Psychiatric Exam Psychiatric exam: Normal Affect, Normal Mood - Skin Skin Exam: Dry, Normal Color, Warm Results - Vital Signs Recent Vital Signs: Last Vital Signs Temp 98.2 F 09/05/16 00:20 Pulse 89 09/05/16 02:11 Resp 20 09/05/16 02:11 BP 110/70 09/05/16 02:11 Pulse Ox 100 09/05/16 02:11 - Labs Result Diagrams: 09/05/16 00:45 09/05/16 00:45 Labs: Laboratory Results - last 24 hr 09/05/16 09/05/16 00:45 00:45 WBC 14.6 H RBC 4.09 Hgb 14.4 Hct 41.7 MCV 102.0 MCH 35.2 H MCHC 34.5 RDW 13.1 Plt Count 409 MPV 9.7 Sodium 138 Potassium 4.1 Chloride 100 Carbon Dioxide 31 Anion Gap 11 BUN 6 L Creatinine 0.5 Est GFR ( Amer) > 60 Est GFR (Non-Af Amer) > 60 Random Glucose 95 Calcium 8.3 L Total Bilirubin 0.6 AST 59 H ALT 69 H Alkaline Phosphatase 84 Total Protein 6.5 Albumin 3.5 Globulin 3.0 Albumin/Globulin Ratio 1.2 Assessment & Plan - Assessment and Plan (Free Text) Assessment: 46 year old female with past medical history of COPD, Hepatitis C, IV drug abuse , alcohol abuse presents with shortness of breath and wheezing Plan: COPD exacerbation -Oxygen via NC -Pulmicort 0.25mg IH q12h -Brovana 12mcg IH q12h -Duonebs scheduled and prn -Solumedrol 40 mg q12h -Levaquin 750 mg po daily -Aspiration precaution Alcohol withdrawal -[facility] protocol -Ativan 1 mg q4h prn -Banana bag @ 100 cc/hr Tobacco use -Smoking cessation was strongly advised -Nicotine patch Prophylactic measures -Heparin for DVT ppx -Protonix for GI ppx <Manuela Louise N - Last Filed: 09/06/16 17:36> History of Present Illness - History of Present Illness History of Present Illness: pt signed out ama. pt, lung clear to auscultation. Results - Vital Signs Recent Vital Signs: Last Vital Signs Temp 97.8 F 09/05/16 04:30 Pulse 88 09/05/16 04:30 Resp 20 09/05/16 04:30 BP 112/74 09/05/16 04:30 Pulse Ox 100 09/05/16 04:30 - Labs Result Diagrams: 09/05/16 00:45 09/05/16 00:45
[2016-09-05] MEDS ORDERED: Albuterol-Ipratrop 3 mg / 0.5 (3 ml) UD IH PRN (03:28)
[2016-09-05] MEDS ORDERED: Folic Acid 1 MG, Thiamine 100 MG, Multivitamin (MVI) 10 ML in Dextrose 5% In Water 1,00... IV SCH (03:45)
[2016-09-05] MEDS ORDERED: Albuterol-Ipratrop 3 mg / 0.5 (3 ml) UD IH SCH (04:00)
[2016-09-05 05:00] VITALS: BP 112/74; PULSE 88; TEMP 97.8
--- NOTE | 2016-09-05 06:44 | RAD ---
HISTORY: sob COMPARISON: FINDINGS: LUNGS: Mild bibasilar atelectasis PLEURA: No significant pleural effusion identified, no pneumothorax apparent. CARDIOVASCULAR: Borderline cardiomegaly OSSEOUS STRUCTURES: No significant abnormalities. VISUALIZED UPPER ABDOMEN: Normal. OTHER FINDINGS: None. IMPRESSION: Mild bibasilar atelectasis
[2016-09-05] MEDS ORDERED: Budesonide 0.25 mg/2 ml Inhal Susp UD IH SCH (08:00)
[2016-09-05] MEDS ORDERED: Arformoterol 15 mcg/2 ml Inh Sol IH SCH (08:00)
[2016-09-05] MEDS ORDERED: MethylPREDNISolone 40 mg Vial IVP SCH (10:00)
[2016-09-05] MEDS ORDERED: levoFLOXacin 750 MG TAB PO SCH (10:00)
--- NOTE | 2016-09-05 12:35 | CARD ---
APPROVED REPORT EKG Measurement Heart [id number] <Conclusion> Normal sinus rhythm Normal ECG
== END 2016-09-05 04:45 | disposition left against medical advice (07) ==
LOC: ED 00:11 → ERH 02:44 → UNDOADMOB 02:44 → ERH 03:16 → ED 04:45 → ERH 04:59
DX: J44.1 Chronic obstructive pulmonary disease with (acute) exacerbation (principal); F17.210 Nicotine dependence, cigarettes, uncomplicated
CPT/HCPCS: 71010; 80053; 85027; 93005; 96374; 99285; J2930

== ENCOUNTER 2016-09-13 20:24 | Emergency (ER) | payer MEDICAID ==
[2016-09-13] MEDS: Albuterol-Ipratrop 3 mg / 0.5 (3 ml) UD IH SCH ×3 (22:20→23:18)
--- NOTE | 2016-09-13 23:35 | ED PDOC ---
Arrival/HPI <Blayne Dinh - Last Filed: 09/14/16 01:30> - General Historian: Patient - History of Present Illness Time/Duration: Other (today) Symptom Onset: Gradual Symptom Course: Unchanged Activities at Onset: Rest, Light <Charito Hickey PA-C - Last Filed: 09/14/16 02:42> - General Chief Complaint: Respiratory Distress Time Seen by Provider: 09/13/16 20:42 - History of Present Illness Narrative History of Present Illness (Text): 09/13/16 20:45 46 year old female smoker, whose past medical history includes asthma, COPD, Hepatitis C, alcohol abuse, IV and drug abuse, who presents to the ED complaining of shortness of breath and wheezing tonight. Patient states symptoms are consistent with previous episodes of asthma exacerbation and notes she believes the change in weather may be triggering her symptoms. Patient denies any relief after using her inhaler. Patient was recently seen in the Emergency department on 09/05/2016 for similar complaint and offered admission to the hospital but signed AMA. The patient denies any fever, chills, chest pain , abdominal pain, nausea, vomiting, diarrhea, urinary symptoms, back pain, neck pain, headache, dizziness, or any other complaints. (Charito Hickey PA-C) Past Medical History - Provider Review Nursing Documentation Reviewed: Yes - Infectious Disease Hx of Infectious Diseases: None - Tetanus Immunization Tetanus Immunization: Unknown - Cardiac Hx Cardiac Disorders: No - Pulmonary Hx Respiratory Disorders: Yes Hx Asthma: Yes Hx Bronchitis: Yes Hx Chronic Obstructive Pulmonary Disease (COPD): Yes Hx Emphysema: Yes Other/Comment: pneumothorax left chest tube 15 yrs ago, pt needed lung sx after removal of chest tube lung "tore apart" - Neurological Hx Neurological Disorder: No - HEENT Hx HEENT Disorder: No - Renal Hx Renal Disorder: No - Endocrine/Metabolic Hx Endocrine Disorders: No - Hematological/Oncological Hx Blood Disorders: Yes Hx Hepatitis C: Yes - Integumentary Hx Dermatological Disorder: Yes Other/Comment: cellulitis - Musculoskeletal/Rheumatological Hx Falls: Yes - Gastrointestinal Hx Gastrointestinal Disorders: No - Genitourinary/Gynecological Hx Genitourinary Disorders: No Hx Sexually Transmitted Diseases: Yes (trichomonas) - Psychiatric Hx Psychophysiologic Disorder: Yes Hx Anxiety: Yes Hx Depression: Yes Hx Substance Use: Yes (heroin) Other/Comment: etoh, substance abuse - Surgical History Hx Appendectomy: Yes Other/Comment: As per pt, "lung surgery," tonsillectomy - Anesthesia Hx Anesthesia: Yes Hx Anesthesia Reactions: No Hx Malignant Hyperthermia: No - Suicidal Assessment Feels Threatened In Home Enviroment: No <Charito Hickey PA-C - Last Filed: 09/14/16 02:42> Family/Social History - Physician Review Nursing Documentation Reviewed: Yes Family/Social History: No Known Family HX Smoking Status: Heavy Smoker > 10 Cigarettes Daily Hx Alcohol Use: Yes (daily -"as much as i can afford") Hx Substance Use: Yes (heroin) Substance used: HEROINE Hx Substance Use Treatment: Yes <Charito Hickey PA-C - Last Filed: 09/14/16 02:42> Allergies/Home Meds <Blayne Dinh - Last Filed: 09/14/16 01:30> <Charito Hickey PA-C - Last Filed: 09/14/16 02:42> Allergies/Adverse Reactions: Allergies No Known Allergies Allergy (Verified 08/26/16 21:41) Home Medications: Home Meds Medication Instructions Recorded Confirmed Albuterol HFA [Ventolin HFA 90 2 puff IH PRN PRN 08/27/16 09/13/16 mcg/actuation (8 g)] Review of Systems - Physician Review All systems were reviewed & negative as marked: Yes - Review of Systems Constitutional: Normal. absent: Fevers Eyes: Normal ENT: Normal Respiratory: SOB, Wheezing. absent: Cough Cardiovascular: Normal. absent: Chest Pain Gastrointestinal: Normal. absent: Abdominal Pain, Diarrhea, Nausea, Vomiting Genitourinary Female: Normal. absent: Dysuria, Frequency, Hematuria, Urine Output Changes Musculoskeletal: Normal. absent: Back Pain, Neck Pain Skin: Normal. absent: Rash Neurological: Normal. absent: Headache, Dizziness Endocrine: Normal Hemo/Lymphatic: Normal Psychiatric: Normal <Charito Hickey PA-C - Last Filed: 09/14/16 02:42> Physical Exam <Blayne iDnh - Last Filed: 09/14/16 01:30> Vital Signs Reviewed: Yes Temperature: Afebrile Blood Pressure: Normal Pulse: Regular Respiratory Rate: Normal Appearance: Positive for: Well-Appearing, Non-Toxic, Comfortable Pain Distress: None Mental Status: Positive for: Alert and Oriented X 3 - Systems Exam Head: Present: Atraumatic, Normocephalic Pupils: Present: PERRL Extroacular Muscles: Present: EOMI Conjunctiva: Present: Normal Mouth: Present: Moist Mucous Membranes Neck: Present: Normal Range of Motion Respiratory/Chest: Present: Wheezes (Faint expiratory wheeze). No: Respiratory Distress, Accessory Muscle Use Cardiovascular: Present: Regular Rate and Rhythm, Normal S1, S2. No: Murmurs Abdomen: Present: Normal Bowel Sounds. No: Tenderness, Distention, Peritoneal Signs Back: Present: Normal Inspection Upper Extremity: Present: Normal Inspection. No: Cyanosis, Edema Lower Extremity: Present: Normal Inspection. No: Edema Neurological: Present: GCS=15, CN II-XII Intact, Speech Normal Skin: Present: Warm, Dry, Normal Color. No: Rashes Psychiatric: Present: Alert, Oriented x 3, Normal Insight, Normal Concentration <Charito Hickey PA-C - Last Filed: 09/14/16 02:42> - Physical Exam Narrative Physical Exam (Text): No distress, speaking full sentences (Charito Hickey PA-C) Vital Signs Temp Pulse Resp BP Pulse Ox 09/14/16 01:00 98.1 F 104 H 22 130/83 98 09/13/16 21:00 16 09/13/16 20:37 98.3 F 90 22 120/70 97 Medical Decision Making <Blayne Dinh - Last Filed: 09/14/16 01:30> - EKG Interpretation Interpreted by ED Physician: Yes Type: 12 lead EKG <Charito Hickey PA-C - Last Filed: 09/14/16 02:42> ED Course and Treatment: 09/13/16 20:45 Impression: 46 year old female complaining of shortness of breath and wheezing. Differential Diagnosis include but are not limited to: asthma exacerbation Plan: -- EKG -- Duoneb -- Solu-medrol -- Reassess and disposition Prior Visits: Notes and results from previous visits were reviewed. Progress Notes: EKG: NSR at 88 bpm, (-) acute ST changes, as read by CLARE. 00:30 On reevaluation, patient is sleeping comfortably in bed in no acute distress. Breathing is easy and unlabored, no accessory muscle use noted positioning. On exam, lungs with bilateral expiratory wheezing with decreased breath sounds bilaterally. Another douneb x 3 ordered. P 102 O2sat [id number]. 02:30 On second reevaluation, patient is sleeping comfortably in bed, arouses easily, is in no acute respiratory distress. Breathing is easy and unlabored, patient speaking in full sentences, sensory muscle use noted. On exam, lungs with continued bilateral expiratory wheezing, breath sounds equal bilaterally. Patient giving another dose of DuoNeb and magnesium IV. Labs and CXR ordered. Based on history and exam plan will be for inpatient admission. Case discussed with Dr. Garces, agrees and plan with inpatient admission. Patient states she fully agrees with and understands further plan of care. I have given the patient opportunity to ask any additional questions. (Ruperto MENDEZ,Chariot Suggs) - Medication Orders Current Medication Orders: Magnesium Sulfate 2 gm/ Sodium (Chloride) 104 mls @ 102 mls/hr IVPB ONCE ONE Stop: 09/14/16 03:36 Discontinued Medications Albuterol/Ipratropium (Duoneb 3 Mg/0.5 Mg (3 Ml) Ud) 3 ml IH Q15M JACK Stop: 09/13/16 22:16 Last Admin: 09/13/16 23:18 Dose: 3 ml Albuterol/Ipratropium (Duoneb 3 Mg/0.5 Mg (3 Ml) Ud) 3 ml IH Q15M JACK Stop: 09/14/16 01:01 Last Admin: 09/14/16 01:45 Dose: 3 ml Albuterol/Ipratropium (Duoneb 3 Mg/0.5 Mg (3 Ml) Ud) 3 ml IH STAT STA Stop: 09/14/16 02:36 Methylprednisolone (Solu-Medrol) 125 mg IM STAT STA Stop: 09/13/16 21:45 Last Admin: 09/13/16 22:20 Dose: 125 mg - PA / TELECOMMUNICATIONS EQUIPMENT INSTALLER / Resident Statement ZAIRE has reviewed & agrees with the documentation as recorded. <Blayne Dinh - Last Filed: 09/14/16 01:30> - PA / TELECOMMUNICATIONS EQUIPMENT INSTALLER / Resident Statement ZAIRE has reviewed & agrees with the documentation as recorded. - Scribe Statement The provider has reviewed the documentation as recorded by the Scribe <Charito Hickey PA-C - Last Filed: 09/14/16 02:42> - Scribe Statement Radha Rosales All medical record entries made by the Scribe were at my direction and personally dictated by me. I have reviewed the chart and agree that the record accurately reflects my personal performance of the history, physical exam, medical decision making, and the department course for this patient. I have also personally directed, reviewed, and agree with the discharge instructions and disposition. (Charito Hickey PA-C) Disposition/Present on Arrival <Blayne Dinh - Last Filed: 09/14/16 01:30> - Present on Arrival Any Indicators Present on Arrival: No History of DVT/PE: No History of Uncontrolled Diabetes: No Urinary Catheter: No History of Decub. Ulcer: No History Surgical Site Infection Following: None - Disposition Have Diagnosis and Disposition been Completed?: Yes Disposition Time: 02:00 Patient Plan: Admission <Charito Hickey PA-C - Last Filed: 09/14/16 02:42> - Disposition Diagnosis: Status asthmaticus Disposition: HOSPITALIZED Patient Problems: Current Active Problems Problem Status Onset Status asthmaticus Acute Condition: STABLE
[2016-09-14] MEDS: Albuterol-Ipratrop 3 mg / 0.5 (3 ml) UD IH SCH ×7 (00:57→09:06)
[2016-09-14 01:57] VITALS: TEMP 98.1
[2016-09-14] MEDS: Albuterol-Ipratrop 3 mg / 0.5 (3 ml) UD IH STA ×2 (03:00→08:04)
[2016-09-14 03:08] LABS: ADD MANUAL DIFF? NO
[2016-09-14 03:14] LABS: BASO # 0.01 K/mm3 (0.0-2.0); BASO % 0.1 % (0.0-3.0); EOS % 0.1 % (1.5-5.0); GRAN # 6.81 (1.4-6.5); GRAN % 87.9 % (50.0-68.0); HEMATOCRIT 40.9 % (36.0-48.0); LYMPH # 0.8 (1.2-3.4); LYMPH % 10.6 % (22.0-35.0); MEAN CORPUSCULAR HEMOGLOBIN 34.9 pg (25.0-35.0); MEAN CORPUSCULAR HGB CONC 34.2 g/dl (31.0-37.0); MONO # 0.1 (0.1-0.6); MONO % 1.3 % (1.0-6.0); PLATELET COUNT 285 10^3/uL (120.0-450.0); RED CELL DISTRIBUTION WIDTH 13.3 % (11.5-14.5)
[2016-09-14 03:18] LABS: ALB/GLOB RATIO 1.2 (1.1-1.8); ALKALINE PHOSPHATASE 105 U/L (38-133); ALT/SGPT 47 U/L (7-56); AST/SGOT 38 U/L (15-39); BILIRUBIN,TOTAL 0.4 mg/dL (0.2-1.3); BLOOD UREA NITROGEN 8 mg/dL (7-21); CALCIUM 8.5 mg/dL (8.4-10.5); CARBON DIOXIDE 28 mmol/L (21-33); CHLORIDE 102 mmol/L (95-110); GFR AFRICAN-AMERICAN > 60; GLUCOSE,RANDOM 227 mg/dL (70-110); POTASSIUM 3.4 mmol/L (3.6-5.0); SODIUM 137 mmol/L (132-148); TOTAL PROTEIN 6.3 g/dL (5.8-8.3)
[2016-09-14] MEDS: Magnesium Sulfate 2 GM in Sodium Chloride 0.9% 100 ML IVPB ONE ×3 (03:31→08:04)
[2016-09-14 03:35] LABS: WHITE BLOOD COUNT 7.8 10^3/ul (4.5-11.0)
[2016-09-14] MEDS ORDERED: Albuterol-Ipratrop 3 mg / 0.5 (3 ml) UD IH PRN (03:56)
[2016-09-14 04:11] LABS: MAGNESIUM 1.8 mg/dL (1.7-2.2); PHOSPHOROUS 2.7 mg/dL (2.5-4.5)
--- NOTE | 2016-09-14 05:51 | CP.PCM.HP ---
<Irma Zhou - Last Filed: 09/14/16 05:42> History of Present Illness - History of Present Illness History of Present Illness: PGY-1 H&P 46 yo female with PMH of asthma, copd, hep c, alcohol abuse, IVDA presented to ED with sob and wheezing. Patient states that the SOB started yesterday evening. She tired to use her albuterol inhaler however it provided only minimal relief. She also report 2 day history of cough with white/yellow phlegm production. She reports previous similar episodes but to asthma exacerbation. Patient had an episode of chest pain that was sharp worst with cough and movement. Patient states that the chest pain resolved in the ED. She also reports being hot/cold which started in the ED, patient attributes to alcohol withdrawal. She also admits to smoking 1ppd. She denies any pervious fevers, chills abd pain, n/v/d/c, urinary symptoms. PMH: asthma, copd, hep c, alcohol abuse, IVDA PSH: appendectomy, tonsillectomy Social hx: smokes 1ppd, multiple alcoholic beverages, denies illicit recent drug use family hx: lung ca home meds: albuterol inhaler allergy: NKDA Present on Admission - Present on Admission Any Indicators Present on Admission: No Review of Systems - Constitutional Constitutional: absent: Chills, Fever, Headache - EENT Nose/Mouth/Throat: Sore Throat. absent: Nasal Congestion, Nasal Discharge - Cardiovascular Cardiovascular: Chest Pain, Dyspnea. absent: Diaphoresis, Leg Edema, Syncope - Respiratory Respiratory: Cough, Dyspnea, Wheezing. absent: Hemoptysis - Gastrointestinal Gastrointestinal: absent: Abdominal Pain, Constipation, Diarrhea, Nausea, Vomiting - Genitourinary Genitourinary: absent: Difficulty Urinating, Dysuria, Hematuria, Urinary Frequency - Musculoskeletal Musculoskeletal: absent: Arthralgias, Muscle Weakness, Myalgias, Numbness, Tingling - Integumentary Integumentary: absent: Rash, Skin Ulcer, Sores, Wounds - Neurological Neurological: absent: Dizziness, Headaches, Syncope, Weakness - Hematologic/Lymphatic Hematologic: absent: Easy Bleeding, Easy Bruising Past Patient History - Infectious Disease Hx of Infectious Diseases: None - Tetanus Immunizations Tetanus Immunization: Unknown - Past Medical History & Family History Past Medical History?: Yes - Past Social History Smoking Status: Heavy Smoker > 10 Cigarettes Daily Alcohol: > 2 Drinks/Day Drugs: Denies - CARDIAC Hx Cardiac Disorders: No - PULMONARY Hx Respiratory Disorders: Yes Hx Asthma: Yes Hx Bronchitis: Yes Hx Chronic Obstructive Pulmonary Disease (COPD): Yes Hx Emphysema: Yes Other/Comment: pneumothorax left chest tube 15 yrs ago, pt needed lung sx after removal of chest tube lung "tore apart" - NEUROLOGICAL Hx Neurological Disorder: No - HEENT Hx HEENT Problems: No - RENAL Hx Chronic Kidney Disease: No - ENDOCRINE/METABOLIC Hx Endocrine Disorders: No - HEMATOLOGICAL/ONCOLOGICAL Hx Blood Disorders: Yes Hx Hepatitis C: Yes - INTEGUMENTARY Hx Dermatological Problems: Yes Other/Comment: cellulitis - MUSCULOSKELETAL/RHEUMATOLOGICAL Hx Falls: Yes - GASTROINTESTINAL Hx Gastrointestinal Disorders: No - GENITOURINARY/GYNECOLOGICAL Hx Genitourinary Disorders: No Hx Sexually Transmitted Disorders: Yes (trichomonas) - PSYCHIATRIC Hx Psychophysiologic Disorder: Yes Hx Anxiety: Yes Hx Depression: Yes Hx Substance Use: Yes (heroin) Other/Comment: etoh, substance abuse - SURGICAL HISTORY Hx Appendectomy: Yes Other/Comment: As per pt, "lung surgery," tonsillectomy - ANESTHESIA Hx Anesthesia: Yes Hx Anesthesia Reactions: No Hx Malignant Hyperthermia: No Meds Allergies/Adverse Reactions: Allergies Allergy/AdvReac Type Severity Reaction Status Date / Time No Known Allergies Allergy Verified 08/26/16 21:41 Physical Exam - Constitutional Appears: Well, No Acute Distress - Head Exam Head Exam: ATRAUMATIC, NORMOCEPHALIC - Eye Exam Eye Exam: EOMI, Normal appearance - ENT Exam ENT Exam: Mucous Membranes Moist - Respiratory Exam Respiratory Exam: Wheezes (diffuse, mild ), NORMAL BREATHING PATTERN. absent: Decreased Breath Sounds, Respiratory Distress - Cardiovascular Exam Cardiovascular Exam: REGULAR RHYTHM, +S1, +S2. absent: Tachycardia, Diastolic murmur, Systolic Murmur - GI/Abdominal Exam GI & Abdominal Exam: Normal Bowel Sounds, Soft. absent: Distended, Firm, Guarding, Tenderness - Extremities Exam Extremities exam: Positive for: normal inspection Additional comments: bilateral +1 pitting edema - Neurological Exam Neurological exam: Alert, Oriented x3 - Skin Skin Exam: Dry, Intact, Normal Color, Warm Results - Vital Signs Recent Vital Signs: Last Vital Signs Temp 98.1 F 09/14/16 01:00 Pulse 104 H 09/14/16 01:00 Resp 26 H 09/14/16 04:00 BP 130/83 09/14/16 01:00 Pulse Ox 97 09/14/16 04:00 - Labs Result Diagrams: 09/14/16 02:55 09/14/16 02:55 Assessment & Plan - Assessment and Plan (Free Text) Assessment: 46 yo female with PMH of asthma, copd, hep c, alcohol abuse, IVDA presented to ED with sob and wheezing most likely due to asthma exacerbation. Plan: 1. asthma exacerbation - solumedrol 40 q 12 - duonebs q4, adn q2 prn - levaquin 2. alcohol withdrawal - CIWA protocol - ativan 1 q2 - serum alcohol pending ppx - GI -protonix - DVT SCDs <Ingrid Garces - Last Filed: 09/14/16 06:20> Results - Vital Signs Recent Vital Signs: Last Vital Signs Temp 98.1 F 09/14/16 01:00 Pulse 104 H 09/14/16 01:00 Resp 26 H 09/14/16 04:00 BP 130/83 09/14/16 01:00 Pulse Ox 97 09/14/16 04:00 - Labs Result Diagrams: 09/14/16 02:55 09/14/16 02:55 Attending/Attestation - Attestation I have personally seen and examined this patient.: Yes I have fully participated in the care of the patient.: Yes I have reviewed all pertinent clinical information: Yes Notes (Text): 09/14/16 06:13 Patient was seen in the ER with biomedical engineering aide when she was in bed # 21. Agree with history, physical examination, assessment and plan for this 46 year old woman with history of asththam, COPD, alcohol abuse, IVDA, polysubstance abuse,left pneumonectomy, is here with sob, hypokalemia.
[2016-09-14] MEDS: Potassium Chloride 20 mEq ER Tab PO STA ×2 (06:30→08:04)
[2016-09-14] MEDS: MethylPREDNISolone 40 mg Vial IVP SCH ×2 (06:30→08:05)
[2016-09-14 06:31] VITALS: BP 132/91; PULSE 89
[2016-09-14 06:50] VITALS: O2SAT 98
[2016-09-14] MEDS ORDERED: Pantoprazole 40 mg EC Tab PO SCH (07:30)
--- NOTE | 2016-09-14 08:07 | RAD ---
HISTORY: wheezing COMPARISON: Comparison chest 09/05/2016 FINDINGS: LUNGS: Interstitial markings are slightly increased and coarsened low; rule out sequela of reactive/inflammatory airway disease. No focal consolidation. PLEURA: No significant pleural effusion identified, no pneumothorax apparent. CARDIOVASCULAR: Heart size is upper limits of normal/ borderline enlarged OSSEOUS STRUCTURES: No significant abnormalities. VISUALIZED UPPER ABDOMEN: Normal. OTHER FINDINGS: None. IMPRESSION: Interstitial markings are slightly increased and coarsened low; rule out sequela of reactive/inflammatory airway disease. No focal consolidation.
[2016-09-14 09:07] VITALS: RESP 16; BMI 25.8
[2016-09-14] MEDS ORDERED: levoFLOXacin 750 mg in D5W 750 MG/150 ML BAG IVPB SCH (10:00)
--- NOTE | 2016-09-14 22:48 | CARD ---
APPROVED REPORT EKG Measurement Heart [id number] <Conclusion> Normal sinus rhythm Normal ECG
== END 2016-09-14 11:15 | disposition left against medical advice (07) ==
LOC: ED 20:24 → EROBSV 09-14 00:51 → UNDOADMOB 09-14 00:51 → ERH 09-14 03:00 → UNDOADMOB 09-14 03:00
DX: J45.902 Unspecified asthma with status asthmaticus (principal); F17.210 Nicotine dependence, cigarettes, uncomplicated
CPT/HCPCS: 71010; 80053; 80320; 83036; 83735; 84100; 85025; 93005; 96365; 96372; 96375; 99285; J2060; J2920; J2930; J3475

== ENCOUNTER 2016-09-18 21:35 | Emergency (ER) | payer MEDICAID ==
[2016-09-18 23:16] VITALS: BMI 27.4
[2016-09-18 23:31] VITALS: TEMP 97.4
[2016-09-18] MEDS ORDERED: Albuterol-Ipratrop 3 mg / 0.5 (3 ml) UD IH STA (23:33)
--- NOTE | 2016-09-18 23:40 | ED PDOC ---
Arrival/HPI <Blayne Dinh - Last Filed: 09/18/16 23:59> <Bethany Vasquez - Last Filed: 09/19/16 02:43> - General Chief Complaint: Shortness Of Breath Time Seen by Provider: 09/18/16 22:05 - History of Present Illness Narrative History of Present Illness (Text): 09/18/16 23:34 46 y/o F w/ Hx of noncompliance, Asthma, COPD, EtOH dependence, Tobacco abuse presents to the ED w/ c/o acute SOB and chest tightness that started ~2-3hrs ago. Pt reports asthma flare started yesterday but acutely worsened this evening on the way to the ED. Pt admits to productive cough w/ clear to yellow sputum. Denies hemoptysis. Pt also reports B/L LE edema worse than usual. Pt admits to pain in LE both anterior and posterior shins. Pt continues to smoke and drink despite education on the matter. Pt did not fill her medications upon discharge on 08/29/16. (Bethany Vasquez) Past Medical History - Provider Review Nursing Documentation Reviewed: Yes - Infectious Disease Hx of Infectious Diseases: None - Tetanus Immunization Tetanus Immunization: Unknown - Cardiac Hx Cardiac Disorders: No Hx Angina: No Hx Cardiac Arrhythmia: No Hx Circulatory Problems: No Hx Congestive Heart Failure: No Hx Heart Murmur: No Hx Heart Transplant: No Hx Hypertension: No Hx Internal Defibrillator: No Hx Mitral Valve Prolapse: No Hx Pacemaker: No Hx Peripheral Edema: No Hx Peripheral Vascular Disease: No - Pulmonary Hx Asthma: Yes Hx Bronchitis: No Hx Chronic Obstructive Pulmonary Disease (COPD): No Hx Emphysema: No Hx Pneumonia: No Hx Respiratory Aspiration: No Hx Respiratory Tract Infection: No Hx Sleep Apnea: No Hx Tuberculosis: No - Neurological Hx Neurological Disorder: No Hx Alzheimer's Disease: No HX Cerebrovascular Accident: No Hx Dementia: No Hx Dizziness: No Hx Meningitis: No Hx Migraine: No Hx Parkinson's Disease: No Hx Seizures: No Hx Transient Ischemic Attacks (TIA): No - HEENT Hx HEENT Disorder: No Hx Blind: No Hx Cataracts: No Hx Deafness: No Hx Difficulty Chewing: No Hx Epistaxis: No Hx Glaucoma: No Hx Macular Degeneration: No - Renal Hx Renal Disorder: No Hx Dialysis: No Hx Kidney Stones: No Hx Neurogenic Bladder: No Hx Pyelonephritis: No Hx Renal Cancer: No Hx Renal Failure: No - Endocrine/Metabolic Hx Endocrine Disorders: No Hx Adrenal Cancer: No Hx Diabetes Insipidus: No Hx Diabetes Mellitus Type 1: No Hx Diabetes Mellitus Type 2: No Hx Hyperthyroidism: No Hx Hypothyroidism: No Hx Systemic Lupus Erythematosus: No - Hematological/Oncological Hx Blood Disorders: No Hx AIDS: No Hx Anemia: No Hx Cancer: No Hx Chemotherapy: No Hx Cirrhosis: No Hx Hemophilia: No Hx Hepatitis A: No Hx Hepatitis B: No Hx Hepatitis C: Yes Hx Metastasis: No Hx Shingles: No Hx Sickle Cell Disease: No Hx Unexplained Bleeding: No - Integumentary Hx Dermatological Disorder: No Hx Basal Cell Carcinoma: No Hx Eczema: No Hx Melanoma: No Hx Psoriasis: No Hx Squamous Cell Carcinoma: No - Musculoskeletal/Rheumatological Hx Musculoskeletal Disorders: No Hx Arthritis: No Hx Back Pain: No Hx Degenerative Joint Disease: No Hx Falls: No Hx Fractures: No Hx Gout: No Hx Herniated Disk: No Hx Myasthenia Gravis: No Hx Osteoarthritis: No Hx Osteomyelitis: No Hx Osteoporosis: No Hx Rhabdomyolysis: No Hx Spinal Stenosis: No Hx Unsteady Gait: No - Gastrointestinal Hx Colostomy: No Hx Crohn's Disease: No Hx Diverticulitis: No Hx Gall Bladder Disease: No Hx Gastroesophageal Reflux: No Hx Gastrointestinal Ulcer: No Hx Ileostomy: No Hx Liver Failure: No Hx Pancreatitis: No HX Swallowing Problems: No Other/Comment: Umbilical hernia present - Genitourinary/Gynecological Hx Genitourinary Disorders: No Hx Hematuria: No Hx Incontinence: No Hx Prostate Problems: No Hx Sexually Transmitted Diseases: No Hx Urinary Tract Infection: No - Psychiatric Hx Psychophysiologic Disorder: No Hx Anxiety: No Hx Bipolar Disorder: No Hx Depression: No Hx Emotional Abuse: No Hx Hallucinations: No Hx Panic Disorder: No Hx Post Traumatic Stress Disorder: No Hx Psychosis: No Hx Physical Abuse: No Hx Schizophrenia: No Hx Substance Use: No - Surgical History Hx Amputation: No Hx Appendectomy: No Hx Cardiac Catheterization: No Hx Cholecystectomy: No Hx Coronary Stent: No Hx Gastric Bypass Surgery: No Hx Hysterectomy: No Hx Joint Replacement: No Hx Kidney Transplant: No Hx Liver Transplant: No Hx Musculoskeletal Surgery: No Hx Open Heart Surgery: No Hx Orthopedic Surgery: No Hx Splenectomy: No Hx Valve Replacement: No - Anesthesia Hx Anesthesia: Yes Hx Anesthesia Reactions: No Hx Malignant Hyperthermia: No - Suicidal Assessment Feels Threatened In Home Enviroment: No <Bethany Vasquez Last Filed: 09/19/16 02:43> Family/Social History Family/Social History: No Known Family HX Smoking Status: Heavy Smoker > 10 Cigarettes Daily Hx Alcohol Use: Yes Hx Substance Use: No Substance used: HEROINE Hx Substance Use Treatment: Yes <Bethany Vasquez - Last Filed: 09/19/16 02:43> Allergies/Home Meds <Blayne Dinh - Last Filed: 09/18/16 23:59> <PedroBethany - Last Filed: 09/19/16 02:43> Allergies/Adverse Reactions: Allergies No Known Allergies Allergy (Verified 08/26/16 21:41) Home Medications: Home Meds Medication Instructions Recorded Confirmed Albuterol HFA [Ventolin HFA 90 2 puff IH PRN PRN 08/27/16 09/13/16 mcg/actuation (8 g)] Review of Systems - Physician Review All systems were reviewed & negative as marked: Yes - Review of Systems Constitutional: absent: Fevers Gastrointestinal: absent: Abdominal Pain <Bethany Vasquez Last Filed: 09/19/16 02:43> Physical Exam Vital Signs Reviewed: Yes Temperature: Afebrile Blood Pressure: Normal Respiratory Rate: Normal Appearance: Positive for: Non-Toxic, Uncomfortable Pain Distress: None Mental Status: Positive for: Alert and Oriented X 3 - Systems Exam Head: Present: Atraumatic, Normocephalic Pupils: Present: PERRL Extroacular Muscles: Present: EOMI Conjunctiva: Present: Normal Mouth: Present: Moist Mucous Membranes Respiratory/Chest: Present: Wheezes (scattered wheezes). No: Respiratory Distress, Accessory Muscle Use, Tachypneic Cardiovascular: Present: Regular Rate and Rhythm, Normal S1, S2, Peripheal Pulses Present. No: Murmurs Abdomen: Present: Distention. No: Tenderness, Rebound, Guarding Upper Extremity: No: Normal Inspection (clubbing) Lower Extremity: Present: Edema (2-3+ pitting edema B/L LE R>L), Tenderness (BL LE) Neurological: Present: GCS=15, Speech Normal Skin: Present: Warm, Dry, Normal Color Psychiatric: Present: Alert, Oriented x 3, Normal Affect, Normal Mood <PedroBethany Last Filed: 09/19/16 02:43> Vital Signs Temp Pulse Resp BP Pulse Ox 09/19/16 01:39 88 18 129/87 94 L 09/18/16 23:39 24 99 09/18/16 21:39 97.4 F L 86 18 114/68 99 Medical Decision Making - RAD Interpretation Licensing Registration Examiner: ED Physician <Blayne Dinh - Last Filed: 09/18/16 23:59> - EKG Interpretation Interpreted by ED Physician: Yes Type: 12 lead EKG <Bethany Vasquez - Last Filed: 09/19/16 02:43> ED Course and Treatment: Pt seen and evaluated with resident. Pt, whose past medical history includes asthma, COPD, Hepatitis C, alcohol abuse, IV and drug abuse, presented complaining of shortness of breath with chest tightness, consistent with previous episodes of asthma. Aware and agree with HPI, clinical findings, plan, and management. Plan: -- Chest X-ray -- Duoneb -- Reassess and disposition (Blayne Dinh) 09/18/16 23:45 46 y/o M w/ SOB and productive cough - DuoNeb - CXR - Prednisone - Reassess 09/19/16 01:34 Pt resting comfortable. NAD. 97% on RA 09/19/16 02:39 symptoms improved after treatment. NAD. improved air exchange. (Bethany Vasquez) - RAD Interpretation Radiology Orders: 09/18/16 23:32 CXR [CHEST PORTABLE] [RAD] Stat - EKG Interpretation EKG Interpretation (Text): 09/19/16 00:01 NSR, rate 84, no axis rotation or deviation (Bethany Vasquez) - Medication Orders Current Medication Orders: Discontinued Medications Albuterol/Ipratropium (Duoneb 3 Mg/0.5 Mg (3 Ml) Ud) 3 ml IH STAT STA Stop: 09/18/16 23:34 Last Admin: 09/18/16 23:43 Dose: 3 ml Albuterol/Ipratropium (Duoneb 3 Mg/0.5 Mg (3 Ml) Ud) 3 ml IH STAT STA Stop: 09/19/16 02:01 Prednisone (Prednisone Tab) 40 mg PO STAT STA Stop: 09/19/16 00:00 Last Admin: 09/19/16 00:21 Dose: 40 mg - PA / 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 / has examined the patient and agrees with the treatment plan. <Blayne Dinh - Last Filed: 09/18/16 23:59> Disposition/Present on Arrival <Blayne Dinh - Last Filed: 09/18/16 23:59> - Present on Arrival Any Indicators Present on Arrival: No History of DVT/PE: No History of Uncontrolled Diabetes: No Urinary Catheter: No History of Decub. Ulcer: No History Surgical Site Infection Following: None - Disposition Have Diagnosis and Disposition been Completed?: Yes Disposition Time: 02:41 <Bethany Vasquez - Last Filed: 09/19/16 02:43> - Disposition Diagnosis: Smoker, Chronic obstructive lung disease, Asthma exacerbation Disposition: HOME/ ROUTINE Condition: GOOD Discharge Instructions (ExitCare): How to Stop Smoking (ED), Abuse of Alcohol ( ED), COPD (Chronic Obstructive Pulmonary Disease) (ED) Prescriptions: predniSONE [Prednisone] 40 mg PO DAILY #5 tab
[2016-09-19 01:44] VITALS: BP 129/87; PULSE 88; RESP 18; O2SAT 94
[2016-09-19] MEDS ORDERED: Albuterol-Ipratrop 3 mg / 0.5 (3 ml) UD IH STA (02:00)
--- NOTE | 2016-09-19 13:46 | CARD ---
APPROVED REPORT EKG Measurement Heart [id number] <Conclusion> Normal sinus rhythm Normal ECG
== END 2016-09-19 03:05 | disposition home or self-care (01) ==
LOC: ED 21:35
DX: J44.9 Chronic obstructive pulmonary disease, unspecified (principal); J45.901 Unspecified asthma with (acute) exacerbation; F17.210 Nicotine dependence, cigarettes, uncomplicated

== ENCOUNTER 2016-10-21 09:10 | Emergency (ER) | payer MEDICAID ==
[2016-10-21 09:10] VITALS: BMI 27.4
[2016-10-21 09:35] VITALS: RESP 20; TEMP 98.1
[2016-10-21] MEDS ORDERED: Albuterol-Ipratrop 3 mg / 0.5 (3 ml) UD ONE (09:40)
[2016-10-21] MEDS ORDERED: Albuterol-Ipratrop 3 mg / 0.5 (3 ml) UD IH STA ×2 (09:41→10:47)
[2016-10-21 10:49] VITALS: PULSE 83
[2016-10-21 11:03] LABS: BASO # 0.03 K/mm3 (0.0-2.0); BASO % 0.4 % (0.0-3.0); EOS # 0.9 (0.0-0.7); EOS % 10.7 % (1.5-5.0); GRAN # 4.73 (1.4-6.5); HEMOGLOBIN 14.1 gm/dL (12.0-16.0); LYMPH % 23.2 % (22.0-35.0); MEAN CELL VOLUME 100.7 fL (80.0-105.0); MEAN CORPUSCULAR HEMOGLOBIN 33.8 pg (25.0-35.0); MEAN CORPUSCULAR HGB CONC 33.6 g/dl (31.0-37.0); MEAN PLATELET VOLUME 9.8 fl (7.0-11.0); MONO # 0.8 (0.1-0.6); MONO % 9.7 % (1.0-6.0); PLATELET COUNT 303 10^3/uL (120.0-450.0); RBC 4.17 10^6/uL (3.5-6.1); RED CELL DISTRIBUTION WIDTH 13.7 % (11.5-14.5); WHITE BLOOD COUNT 8.4 10^3/ul (4.5-11.0)
[2016-10-21 11:11] LABS: ALBUMIN 3.1 g/dL (3.0-4.8); ALT/SGPT 54 U/L (7-56); AST/SGOT 77 U/L (15-39); BLOOD UREA NITROGEN 5 mg/dL (7-21); GFR AFRICAN-AMERICAN > 60; GFR NON-AFRICAN AMERICAN > 60
[2016-10-21 11:23] LABS: B-TYPE NATRIURETIC PEPTIDE 88.7 pg/mL (0-450); TROPONIN I < 0.01 ng/mL
--- NOTE | 2016-10-21 11:45 | ED PDOC ---
Arrival/HPI - General Chief Complaint: Shortness Of Breath Time Seen by Provider: 10/21/16 09:41 Historian: Patient - History of Present Illness Narrative History of Present Illness (Text): 10/21/16 11:39 46yo female with history of homelessness, COPD, drug abuse present with complaint of SOB, wheezing, nonproductive cough. States it started this morning. states she don't have any inhaler. She also complain of b/l leg pain and swelling. She denies orthopnea, fever, chills, diaphoresis, calf pain, recent travel, sick contact. She is not steroid dependent. Never intubated. Past Medical History - Provider Review Nursing Documentation Reviewed: Yes - Infectious Disease Hx of Infectious Diseases: None - Tetanus Immunization Tetanus Immunization: Unknown - Reproductive Menopause: No - Cardiac Hx Cardiac Disorders: No Hx Angina: No Hx Cardiac Arrhythmia: No Hx Circulatory Problems: No Hx Congestive Heart Failure: No Hx Heart Murmur: No Hx Heart Transplant: No Hx Hypertension: No Hx Internal Defibrillator: No Hx Mitral Valve Prolapse: No Hx Pacemaker: No Hx Peripheral Edema: No Hx Peripheral Vascular Disease: No - Pulmonary Hx Asthma: Yes Hx Bronchitis: No Hx Chronic Obstructive Pulmonary Disease (COPD): No Hx Emphysema: No Hx Pneumonia: No Hx Respiratory Aspiration: No Hx Respiratory Tract Infection: No Hx Sleep Apnea: No Hx Tuberculosis: No - Neurological Hx Neurological Disorder: No Hx Alzheimer's Disease: No HX Cerebrovascular Accident: No Hx Dementia: No Hx Dizziness: No Hx Meningitis: No Hx Migraine: No Hx Parkinson's Disease: No Hx Seizures: No Hx Transient Ischemic Attacks (TIA): No - HEENT Hx HEENT Disorder: No Hx Blind: No Hx Cataracts: No Hx Deafness: No Hx Difficulty Chewing: No Hx Epistaxis: No Hx Glaucoma: No Hx Macular Degeneration: No - Renal Hx Renal Disorder: No Hx Dialysis: No Hx Kidney Stones: No Hx Neurogenic Bladder: No Hx Pyelonephritis: No Hx Renal Cancer: No Hx Renal Failure: No - Endocrine/Metabolic Hx Endocrine Disorders: No Hx Adrenal Cancer: No Hx Diabetes Insipidus: No Hx Diabetes Mellitus Type 1: No Hx Diabetes Mellitus Type 2: No Hx Hyperthyroidism: No Hx Hypothyroidism: No Hx Systemic Lupus Erythematosus: No - Hematological/Oncological Hx Blood Disorders: No Hx AIDS: No Hx Anemia: No Hx Cancer: No Hx Chemotherapy: No Hx Cirrhosis: No Hx Hemophilia: No Hx Hepatitis A: No Hx Hepatitis B: No Hx Hepatitis C: Yes Hx Metastasis: No Hx Shingles: No Hx Sickle Cell Disease: No Hx Unexplained Bleeding: No - Integumentary Hx Dermatological Disorder: No Hx Basal Cell Carcinoma: No Hx Eczema: No Hx Melanoma: No Hx Psoriasis: No Hx Squamous Cell Carcinoma: No - Musculoskeletal/Rheumatological Hx Musculoskeletal Disorders: No Hx Arthritis: No Hx Back Pain: No Hx Degenerative Joint Disease: No Hx Falls: No Hx Fractures: No Hx Gout: No Hx Herniated Disk: No Hx Myasthenia Gravis: No Hx Osteoarthritis: No Hx Osteomyelitis: No Hx Osteoporosis: No Hx Rhabdomyolysis: No Hx Spinal Stenosis: No Hx Unsteady Gait: No - Gastrointestinal Hx Colostomy: No Hx Crohn's Disease: No Hx Diverticulitis: No Hx Gall Bladder Disease: No Hx Gastroesophageal Reflux: No Hx Gastrointestinal Ulcer: No Hx Ileostomy: No Hx Liver Failure: No Hx Pancreatitis: No HX Swallowing Problems: No Other/Comment: Umbilical hernia present - Genitourinary/Gynecological Hx Genitourinary Disorders: No Hx Hematuria: No Hx Incontinence: No Hx Prostate Problems: No Hx Sexually Transmitted Diseases: No Hx Urinary Tract Infection: No - Psychiatric Hx Psychophysiologic Disorder: No Hx Anxiety: No Hx Bipolar Disorder: No Hx Depression: No Hx Emotional Abuse: No Hx Hallucinations: No Hx Panic Disorder: No Hx Post Traumatic Stress Disorder: No Hx Psychosis: No Hx Physical Abuse: No Hx Schizophrenia: No Hx Substance Use: No - Surgical History Hx Amputation: No Hx Appendectomy: No Hx Cardiac Catheterization: No Hx Cholecystectomy: No Hx Coronary Stent: No Hx Gastric Bypass Surgery: No Hx Hysterectomy: No Hx Joint Replacement: No Hx Kidney Transplant: No Hx Liver Transplant: No Hx Musculoskeletal Surgery: No Hx Open Heart Surgery: No Hx Orthopedic Surgery: No Hx Splenectomy: No Hx Valve Replacement: No - Anesthesia Hx Anesthesia: Yes Hx Anesthesia Reactions: No Hx Malignant Hyperthermia: No - Suicidal Assessment Feels Threatened In Home Enviroment: No Family/Social History - Physician Review Nursing Documentation Reviewed: Yes Family/Social History: Unknown Family HX Smoking Status: Heavy Smoker > 10 Cigarettes Daily Hx Alcohol Use: Yes Hx Substance Use: No Substance used: HEROINE Hx Substance Use Treatment: Yes Allergies/Home Meds Allergies/Adverse Reactions: Allergies No Known Allergies Allergy (Verified 08/26/16 21:41) Review of Systems - Physician Review All systems were reviewed & negative as marked: Yes - Review of Systems Constitutional: Normal Eyes: Normal ENT: Normal Respiratory: SOB, Cough, Wheezing. absent: Sputum Cardiovascular: Edema. absent: Calf Pain, BAI, Orthopnea Gastrointestinal: Normal Genitourinary Female: Normal Musculoskeletal: Normal Skin: Normal Neurological: Normal Endocrine: Normal Hemo/Lymphatic: Normal Psychiatric: Normal Physical Exam Vital Signs Reviewed: Yes Vital Signs Temp Pulse Resp BP Pulse Ox 10/21/16 12:35 83 20 138/75 97 10/21/16 10:48 83 20 141/54 L 95 10/21/16 09:32 98.1 F 85 20 137/79 98 Temperature: Afebrile Blood Pressure: Normal Pulse: Regular Respiratory Rate: Normal Appearance: Positive for: Well-Appearing, Non-Toxic, Comfortable Pain Distress: Mild (Mild respiratory distress) Mental Status: Positive for: Alert and Oriented X 3 - Systems Exam Head: Present: Atraumatic, Normocephalic Pupils: Present: PERRL Extroacular Muscles: Present: EOMI Conjunctiva: Present: Normal Mouth: Present: Moist Mucous Membranes Neck: Present: Normal Range of Motion Respiratory/Chest: Present: Good Air Exchange, Accessory Muscle Use, Wheezes, Decreased Breath Sounds. No: Respiratory Distress, Rales, Retracting, Rhonchi Cardiovascular: Present: Regular Rate and Rhythm, Normal S1, S2. No: Murmurs Abdomen: Present: Normal Bowel Sounds. No: Tenderness, Distention, Peritoneal Signs Back: Present: Normal Inspection Upper Extremity: Present: Normal Inspection. No: Cyanosis, Edema Lower Extremity: Present: Edema (3+ bipedal edema), CALF TENDERNESS, NORMAL PULSES, Normal ROM, Tenderness, Neurovascularly Intact. No: Cyanosis, Soumya's Sign, Erythema, Temperature Abnormalties Neurological: Present: GCS=15, CN II-XII Intact, Speech Normal Skin: Present: Warm, Dry, Normal Color. No: Rashes Psychiatric: Present: Alert, Oriented x 3, Normal Insight, Normal Concentration Medical Decision Making ED Course and Treatment: 10/21/16 13:35 PT states she feels much better on re evaluation. Her lung was CTA b/l. she was talking in full sentence and ambulatory without distress. Lab was reviewed with no significant BNP and no leukocytosis.. B/L Doppler was negative for DVT. Result was DW the pt. She was advised to wear compression stocking and keep legs elevated to relieve edema. Rx of Prednsione, tramadol, and Albuterol was given Referred to her PMD/Clinic. TRT ED for any new or worsening symptoms. - Lab Interpretations Lab Results: 10/21/16 10:35 10/21/16 10:35 Lab Results 10/21/16 10:35: Sodium 140, Potassium 3.8, Chloride 105, Carbon Dioxide 29, Anion Gap 10, BUN 5 L, Creatinine 0.5, Est GFR ( Amer) > 60, Est GFR (Non -Af Amer) > 60, Random Glucose 75, Calcium 8.0 L, Total Bilirubin 0.5, AST 77 H , ALT 54, Alkaline Phosphatase 93, Lactate Dehydrogenase 905 H, Total Creatine Kinase 52, Troponin I < 0.01, NT-Pro-B Natriuret Pep 88.7, Total Protein 6.0, Albumin 3.1, Globulin 3.0, Albumin/Globulin Ratio 1.0 L 10/21/16 10:35: WBC 8.4, RBC 4.17, Hgb 14.1, Hct 42.0, MCV 100.7, MCH 33.8, MCHC 33.6, RDW 13.7, Plt Count 303, MPV 9.8, Gran % 56.0, Lymph % (Auto) 23.2, Kinney % (Auto) 9.7 H, Eos % (Auto) 10.7 H, Baso % (Auto) 0.4, Gran # 4.73, Lymph # 2.0, Kinney # 0.8 H, Eos # 0.9 H, Baso # 0.03 - RAD Interpretation Radiology Orders: 10/21/16 10:48 DUPLEX LOWER EXTRM VEIN BILAT [US] Stat - Medication Orders Current Medication Orders: Discontinued Medications Albuterol/Ipratropium (Duoneb 3 Mg/0.5 Mg (3 Ml) Ud) Confirm Administered Dose 9 ml .ROUTE .[employer]-MED ONE Stop: 10/21/16 09:41 Last Admin: 10/21/16 11:33 Dose: Albuterol/Ipratropium (Duoneb 3 Mg/0.5 Mg (3 Ml) Ud) 3 ml IH STAT STA Stop: 10/21/16 09:42 Last Admin: 10/21/16 09:45 Dose: 3 ml Albuterol/Ipratropium (Duoneb 3 Mg/0.5 Mg (3 Ml) Ud) 3 ml IH STAT STA Stop: 10/21/16 10:48 Last Admin: 10/21/16 11:33 Dose: 3 ml Methylprednisolone (Solu-Medrol) 125 mg IVP STAT STA Stop: 10/21/16 09:43 Last Admin: 10/21/16 10:35 Dose: 125 mg Tramadol HCl (Ultram) 50 mg PO STAT STA Stop: 10/21/16 10:48 Last Admin: 10/21/16 11:33 Dose: 50 mg Disposition/Present on Arrival - Present on Arrival Any Indicators Present on Arrival: No History of DVT/PE: No History of Uncontrolled Diabetes: No Urinary Catheter: No History of Decub. Ulcer: No History Surgical Site Infection Following: None - Disposition Have Diagnosis and Disposition been Completed?: Yes Diagnosis: COPD exacerbation, Edema Disposition: HOME/ ROUTINE Disposition Time: 12:20 Patient Plan: Discharge Condition: IMPROVED Discharge Instructions (ExitCare): COPD (Chronic Obstructive Pulmonary Disease ) (ED), Leg Edema (ED) Additional Instructions: Use compression stockings and keep leg elevated Follow up with your Doctor/Clinic Return to ED for any new or worsening symptoms Prescriptions: Albuterol HFA [Ventolin HFA 90 mcg/actuation (8 g)] 2 puff IH [id number] #1 puff Prednisone 50 mg PO DAILY #5 tab traMADol [Ultram] 50 mg PO TID #9 tab Referrals: PCP,NO [Primary Care Provider] - Follow up with primary
--- NOTE | 2016-10-21 11:49 | US ---
HISTORY: Leg pain and swelling. Evaluate for DVT PHYSICIAN(S): Jitendra Garcia MD. TECHNIQUE: Duplex sonography and color-flow Doppler with graded compression were used to evaluate the deep venous systems of both lower extremities. The exam is somewhat limited by body habitus and edema. FINDINGS: The visualized deep venous systems of both lower extremities are sonographically normal and compressible. Normal wave forms and augmentation are seen. There is no sonographic evidence for deep venous thrombosis in the visualized segments of both lower extremities. IMPRESSION: No sonographic evidence for deep venous thrombosis in the visualized segments of both lower extremities.
[2016-10-21 12:46] VITALS: BP 138/75; O2SAT 97
== END 2016-10-21 12:35 | disposition home or self-care (01) ==
LOC: ED 09:10
DX: J45.909 Unspecified asthma, uncomplicated (principal); R60.9 Edema, unspecified; F17.210 Nicotine dependence, cigarettes, uncomplicated
CPT/HCPCS: 80053; 82550; 83615; 83880; 84484; 85025; 93970; 94640; 96374; 99284; J2930

== ENCOUNTER 2016-10-25 21:51 | Inpatient (IN) | payer MEDICAID ==
[2016-10-25] MEDS ORDERED: Albuterol-Ipratrop 3 mg / 0.5 (3 ml) UD ONE (22:00)
[2016-10-25] MEDS ORDERED: Albuterol-Ipratrop 3 mg / 0.5 (3 ml) UD IH STA ×3 (22:01→22:44)
[2016-10-25 22:37] LABS: MEAN CELL VOLUME 99.3 fL (80.0-105.0); MEAN CORPUSCULAR HEMOGLOBIN 33.7 pg (25.0-35.0); MEAN PLATELET VOLUME 9.6 fl (7.0-11.0); RBC 4.15 10^6/uL (3.5-6.1); RED CELL DISTRIBUTION WIDTH 13.6 % (11.5-14.5); WHITE BLOOD COUNT 12.1 10^3/ul (4.5-11.0)
[2016-10-25 22:49] LABS: ALB/GLOB RATIO 1.2 (1.1-1.8); ALBUMIN 3.3 g/dL (3.0-4.8); ALT/SGPT 56 U/L (7-56); AST/SGOT 80 U/L (15-39); BLOOD UREA NITROGEN 6 mg/dL (7-21); CALCIUM 8.1 mg/dL (8.4-10.5); GFR AFRICAN-AMERICAN > 60; GFR NON-AFRICAN AMERICAN > 60
--- NOTE | 2016-10-25 23:18 | ED PDOC ---
Arrival/HPI - General Chief Complaint: Shortness Of Breath Time Seen by Provider: 10/25/16 21:57 Historian: Patient - History of Present Illness Narrative History of Present Illness (Text): 10/25/16 23:10 Fani Chambers is a 46 year old female, with a history of COPD and IVDA, presents to the emergency department complaining of shortness of breath, wheezing and cough for past few days. States that she is homeless and cannot afford any medications. Patient also notes of discomfort and redness to lower extremities. She was evaluated at [facility] few days earlier for the leg discomfort and was discharged home after negative DVT study. Denies any fever, chills, chest pain, abdominal pain, nausea, vomiting, diarrhea, or any other complaints at this time. Time/Duration: < week Symptom Onset: Gradual Symptom Course: Unchanged Severity Level: Mild Activities at Onset: Light Past Medical History - Provider Review Nursing Documentation Reviewed: Yes - Infectious Disease Hx of Infectious Diseases: None - Tetanus Immunization Tetanus Immunization: Unknown - Cardiac Hx Cardiac Disorders: No Hx Angina: No Hx Cardiac Arrhythmia: No Hx Circulatory Problems: No Hx Congestive Heart Failure: No Hx Heart Murmur: No Hx Heart Transplant: No Hx Hypertension: No Hx Internal Defibrillator: No Hx Mitral Valve Prolapse: No Hx Pacemaker: No Hx Peripheral Edema: No Hx Peripheral Vascular Disease: No - Pulmonary Hx Asthma: Yes Hx Bronchitis: No Hx Chronic Obstructive Pulmonary Disease (COPD): No Hx Emphysema: No Hx Pneumonia: No Hx Respiratory Aspiration: No Hx Respiratory Tract Infection: No Hx Sleep Apnea: No Hx Tuberculosis: No - Neurological Hx Neurological Disorder: No Hx Alzheimer's Disease: No HX Cerebrovascular Accident: No Hx Dementia: No Hx Dizziness: No Hx Meningitis: No Hx Migraine: No Hx Parkinson's Disease: No Hx Seizures: No Hx Transient Ischemic Attacks (TIA): No - HEENT Hx HEENT Disorder: No Hx Blind: No Hx Cataracts: No Hx Deafness: No Hx Difficulty Chewing: No Hx Epistaxis: No Hx Glaucoma: No Hx Macular Degeneration: No - Renal Hx Renal Disorder: No Hx Dialysis: No Hx Kidney Stones: No Hx Neurogenic Bladder: No Hx Pyelonephritis: No Hx Renal Cancer: No Hx Renal Failure: No - Endocrine/Metabolic Hx Endocrine Disorders: No Hx Adrenal Cancer: No Hx Diabetes Insipidus: No Hx Diabetes Mellitus Type 1: No Hx Diabetes Mellitus Type 2: No Hx Hyperthyroidism: No Hx Hypothyroidism: No Hx Systemic Lupus Erythematosus: No - Hematological/Oncological Hx Blood Disorders: No Hx AIDS: No Hx Anemia: No Hx Cancer: No Hx Chemotherapy: No Hx Cirrhosis: No Hx Hemophilia: No Hx Hepatitis A: No Hx Hepatitis B: No Hx Hepatitis C: Yes Hx Metastasis: No Hx Shingles: No Hx Sickle Cell Disease: No Hx Unexplained Bleeding: No - Integumentary Hx Dermatological Disorder: No Hx Basal Cell Carcinoma: No Hx Eczema: No Hx Melanoma: No Hx Psoriasis: No Hx Squamous Cell Carcinoma: No - Musculoskeletal/Rheumatological Hx Musculoskeletal Disorders: No Hx Arthritis: No Hx Back Pain: No Hx Degenerative Joint Disease: No Hx Falls: No Hx Fractures: No Hx Gout: No Hx Herniated Disk: No Hx Myasthenia Gravis: No Hx Osteoarthritis: No Hx Osteomyelitis: No Hx Osteoporosis: No Hx Rhabdomyolysis: No Hx Spinal Stenosis: No Hx Unsteady Gait: No - Gastrointestinal Hx Colostomy: No Hx Crohn's Disease: No Hx Diverticulitis: No Hx Gall Bladder Disease: No Hx Gastroesophageal Reflux: No Hx Gastrointestinal Ulcer: No Hx Ileostomy: No Hx Liver Failure: No Hx Pancreatitis: No HX Swallowing Problems: No Other/Comment: Umbilical hernia present - Genitourinary/Gynecological Hx Genitourinary Disorders: No Hx Hematuria: No Hx Incontinence: No Hx Prostate Problems: No Hx Sexually Transmitted Diseases: No Hx Urinary Tract Infection: No - Psychiatric Hx Psychophysiologic Disorder: No Hx Anxiety: No Hx Bipolar Disorder: No Hx Depression: No Hx Emotional Abuse: No Hx Hallucinations: No Hx Panic Disorder: No Hx Post Traumatic Stress Disorder: No Hx Psychosis: No Hx Physical Abuse: No Hx Schizophrenia: No Hx Substance Use: No - Surgical History Hx Amputation: No Hx Appendectomy: No Hx Cardiac Catheterization: No Hx Cholecystectomy: No Hx Coronary Stent: No Hx Gastric Bypass Surgery: No Hx Hysterectomy: No Hx Joint Replacement: No Hx Kidney Transplant: No Hx Liver Transplant: No Hx Musculoskeletal Surgery: No Hx Open Heart Surgery: No Hx Orthopedic Surgery: No Hx Splenectomy: No Hx Valve Replacement: No - Anesthesia Hx Anesthesia: Yes Hx Anesthesia Reactions: No Hx Malignant Hyperthermia: No - Suicidal Assessment Feels Threatened In Home Enviroment: No Family/Social History - Physician Review Nursing Documentation Reviewed: Yes Family/Social History: No Known Family HX Smoking Status: Heavy Smoker > 10 Cigarettes Daily Hx Alcohol Use: Yes Hx Substance Use: No Substance used: HEROINE Hx Substance Use Treatment: Yes Allergies/Home Meds Allergies/Adverse Reactions: Allergies No Known Allergies Allergy (Verified 10/25/16 21:57) Review of Systems - Physician Review All systems were reviewed & negative as marked: Yes - Review of Systems Constitutional: Normal. absent: Fatigue, Fevers Respiratory: SOB, Cough, Wheezing. absent: Sputum Cardiovascular: absent: Chest Pain, Palpitations Gastrointestinal: absent: Abdominal Pain, Diarrhea, Nausea, Vomiting Genitourinary Female: absent: Dysuria Musculoskeletal: Other (lower extremity redness and discomfort ) Neurological: Normal. absent: Headache, Dizziness Psychiatric: Normal Physical Exam Vital Signs Reviewed: Yes Vital Signs Resp Pulse Ox 10/25/16 21:51 25 H 93 L Temperature: Afebrile Blood Pressure: Normal Pulse: Regular Respiratory Rate: Normal Appearance: Positive for: Well-Appearing, Non-Toxic, Comfortable Pain Distress: None Mental Status: Positive for: Alert and Oriented X 3 - Systems Exam Head: Present: Atraumatic, Normocephalic Pupils: Present: PERRL Conjunctiva: Present: Normal Mouth: Present: Moist Mucous Membranes Respiratory/Chest: Present: Respiratory Distress (mild respiratory distress ), Wheezes (b/l inspiratory and expiratory wheezing ). No: Accessory Muscle Use Cardiovascular: Present: Normal S1, S2, Tachycardic. No: Murmurs Abdomen: Present: Normal Bowel Sounds. No: Tenderness, Distention, Peritoneal Signs Upper Extremity: Present: Normal Inspection. No: Cyanosis, Edema Lower Extremity: Present: Normal ROM, Neurovascularly Intact, Other (b/l lower extremity erythema with swelling. healing wound with scabs ). No: CALF TENDERNESS Neurological: Present: GCS=15, CN II-XII Intact, Speech Normal, Motor Func Grossly Intact, Normal Sensory Function Skin: Present: Warm, Dry, Normal Color. No: Rashes Psychiatric: Present: Alert, Oriented x 3, Normal Insight, Normal Concentration Medical Decision Making ED Course and Treatment: 10/25/16 23:23 Impression: A 46 year old female who presents to the emergency department for evaluation of shortness of breath, cough and wheezing. She also complains of leg erythema and discomfort. Plan: -- EKG -- Labs -- Chest X-ray -- Duoneb -- Solumedrol -- Blood Culture -- Reassess and disposition Progress Notes: 10/26/16 00:17 EKG interpreted by me: sinus tachycardia @ 100 bpm. Nonspecific STT changes Chest X-ray interpreted by me: No acute processes. Patient breathing has improved post treatments, but is still symptomatic. needs admission for COPD/ lower extremity cellulitis. Case discussed with Dr. Garces, who is aware and agrees with the plan to admit patient to telemetry for COPD/cellulitis. accepts patient under hospitalist service. Discussed with medical technician assistant who will evaluate patient bedside. - Lab Interpretations Lab Results: 10/25/16 22:15 10/25/16 22:15 Lab Results 10/25/16 22:15: WBC 12.1 H D, RBC 4.15, Hgb 14.0, Hct 41.2, MCV 99.3, MCH 33.7, MCHC 34.0, RDW 13.6, Plt Count 411, MPV 9.6 10/25/16 22:15: Sodium 139, Potassium 3.3 L, Chloride 101, Carbon Dioxide 28, Anion Gap 13, BUN 6 L, Creatinine 0.6, Est GFR ( Amer) > 60, Est GFR (Non -Af Amer) > 60, Random Glucose 89, Calcium 8.1 L, Total Bilirubin 0.5, AST 80 H , ALT 56, Alkaline Phosphatase 93, Total Protein 6.2, Albumin 3.3, Globulin 2.8 , Albumin/Globulin Ratio 1.2 I have reviewed the lab results: Yes - RAD Interpretation Radiology Orders: 10/25/16 22:00 CHEST PORTABLE [RAD] Stat Lamp Wirer: ED Physician - EKG Interpretation Interpreted by ED Physician: Yes Type: 12 lead EKG - Medication Orders Current Medication Orders: Vancomycin HCl (Vancomycin 1gm) 1 gm in 250 mls @ 167 mls/hr IVPB STAT STA PRN Reason: Protocol Stop: 10/26/16 01:47 Piperacillin Sod/Tazobactam Sod (Zosyn 3.375 In Ns 100ml) 100 mls @ 200 mls/hr IV STAT STA PRN Reason: Protocol Stop: 10/26/16 00:46 Discontinued Medications Albuterol/Ipratropium (Duoneb 3 Mg/0.5 Mg (3 Ml) Ud) Confirm Administered Dose 9 ml .ROUTE .STK-MED ONE Stop: 10/25/16 22:01 Last Admin: 10/25/16 22:34 Dose: Not Given Non-Admin Reason: Patient Refused Comments: Override for emergent med given, order is a duplicate Albuterol/Ipratropium (Duoneb 3 Mg/0.5 Mg (3 Ml) Ud) 3 ml IH ONCE STA Stop: 10/25/16 22:02 Last Admin: 10/25/16 22:01 Dose: 3 ml Albuterol/Ipratropium (Duoneb 3 Mg/0.5 Mg (3 Ml) Ud) 3 ml IH ONCE STA Stop: 10/25/16 22:36 Last Admin: 10/25/16 23:00 Dose: 3 ml Albuterol/Ipratropium (Duoneb 3 Mg/0.5 Mg (3 Ml) Ud) 3 ml IH ONCE STA Stop: 10/25/16 22:45 Last Admin: 10/25/16 22:35 Dose: 3 ml Methylprednisolone (Solu-Medrol) 125 mg IVP ONCE ONE Stop: 10/25/16 22:02 Last Admin: 10/25/16 22:31 Dose: 125 mg Potassium Chloride (K-Dur 20 Meq Er Tab) 20 meq PO STAT STA Stop: 10/26/16 00:09 - Scribe Statement The provider has reviewed the documentation as recorded by the Jc Foy Provider Attestation: Provider Scribe Attestation: All medical record entries made by the Scribe were at my direction and personally dictated by me. I have reviewed the chart and agree that the record accurately reflects my personal performance of the history, physical exam, medical decision making, and the department course for this patient. I have also personally directed, reviewed, and agree with the discharge instructions and disposition. Disposition/Present on Arrival - Present on Arrival Any Indicators Present on Arrival: No History of DVT/PE: No History of Uncontrolled Diabetes: No Urinary Catheter: No History of Decub. Ulcer: No History Surgical Site Infection Following: None - Disposition Have Diagnosis and Disposition been Completed?: Yes Diagnosis: COPD exacerbation, Cellulitis Disposition: HOSPITALIZED Disposition Time: 00:23 Patient Plan: Observation Patient Problems: Current Active Problems Problem Status Onset COPD exacerbation Acute Cellulitis Acute Condition: STABLE Discharge Instructions (ExitCare): Cellulitis (ED) Referrals: PCP,NO [Primary Care Provider] - Follow up with primary
[2016-10-26] MEDS ORDERED: Potassium Chloride 20 mEq ER Tab PO STA (00:08)
[2016-10-26] MEDS ORDERED: Piperacillin/Tazobact 3.375 gm 100 ML IV STA (00:17)
[2016-10-26] MEDS ORDERED: Vancomycin 1gm in NS 250ml 1 GM/250 ML BAG IVPB STA (00:18)
[2016-10-26] MEDS ORDERED: Oxycodone/Acetaminophen 5/325 mg Tab PO STA (00:55)
[2016-10-26] MEDS ORDERED: Albuterol-Ipratrop 3 mg / 0.5 (3 ml) UD IH PRN (02:08)
[2016-10-26] MEDS ORDERED: Thiamine 100 mg/ml Inj IM STA (02:18)
[2016-10-26 03:43] VITALS: BMI 32.8
--- NOTE | 2016-10-26 03:52 | CP.PCM.HP ---
<BeenaOliver Truman - Last Filed: 10/26/16 04:18> History of Present Illness - History of Present Illness History of Present Illness: Oliver Hargrove DO - PGY - 1 CC: SOB HPI: Ms. Chambers is a 46 y/o female, with a PMHx of COPD and IVDA (heroin), who presented with a c/o shortness of breath, wheezing and cough for the past few days. Ms. Chambers stated that she is homeless and was not able to refill her inhaler, though she does not know what kind of inhalers she takes. Patient further stated that she had discomfort and redness in her lower extremities that was 'burning and itchy.' She was evaluated at [facility] few days earlier for the leg discomfort and was discharged home after negative DVT study. Ms. Chambers denied fevers, chills, nausea, vomiting, diarrhea, chest pain, sputum, or any other complaints at this time PMHx: COPD, IVDA (heroin), Hep C, Umbilical Hernia PSHx: Not elicited All: NKDA SocHx: Heavy alcohol use, Heavy tobacco use, IVDA FamHx: Non-contributory Meds: Inhalers - she doesn't know which ones Present on Admission - Present on Admission Any Indicators Present on Admission: No Review of Systems - Review of Systems Review of Systems: Constitutional: pt denies fever, chills, generalized weakness ENT: pt denies dysphagia, ofalgia, hearing deficit, rhinorrhea Eyes: pt denies sudden loss of vision, diplopia, blurred vision MSK: pt denies muscle stiffness, joint pain, extremity cramping Cardio: pt denies cp, dvt Pulm: see hpi GI: pt denies loss of appetite, abdominal pain, constipation, melena, n/v/d : pt denies burning on urination, urinary frequency, hematuria, urinary urgency Neuro: pt denies paresis, paresthesia, dizziness, rocha, numbness, tingling Derm: patient c/o itching and burning of extremities; pt denies skin changes, lesions, nail changes Endo: pt denies intolerance to heat/cold, diaphoresis, night sweats, polydipsia Psych: pt denies anxiety, depression, mood changes Past Patient History - Infectious Disease Hx of Infectious Diseases: None - Tetanus Immunizations Tetanus Immunization: Unknown - Past Medical History & Family History Past Medical History?: Yes - Past Social History Smoking Status: Heavy Smoker > 10 Cigarettes Daily - CARDIAC Hx Cardiac Disorders: No - PULMONARY Hx Respiratory Disorders: Yes Hx Asthma: Yes Hx Bronchitis: Yes Hx Chronic Obstructive Pulmonary Disease (COPD): Yes Hx Emphysema: Yes Other/Comment: pneumothorax with lung surgery - NEUROLOGICAL Hx Neurological Disorder: No Hx Alzheimer's Disease: No HX Cerebrovascular Accident: No Hx Dementia: No Hx Dizziness: No Hx Meningitis: No Hx Migraine: No Hx Parkinson's Disease: No Hx Seizures: No Hx Transient Ischemic Attacks (TIA): No - HEENT Hx HEENT Problems: No - RENAL Hx Chronic Kidney Disease: No - ENDOCRINE/METABOLIC Hx Endocrine Disorders: Yes - HEMATOLOGICAL/ONCOLOGICAL Hx Blood Disorders: Yes Hx Hepatitis C: Yes - INTEGUMENTARY Hx Dermatological Problems: Yes (Multiple scabs, scratches covering body) - MUSCULOSKELETAL/RHEUMATOLOGICAL Hx Musculoskeletal Disorders: No Hx Falls: Yes - GASTROINTESTINAL Hx Gastrointestinal Disorders: No Other/Comment: Umbilical hernia present - GENITOURINARY/GYNECOLOGICAL Hx Genitourinary Disorders: No Hx Sexually Transmitted Disorders: Yes (trichomonas) - PSYCHIATRIC Hx Psychophysiologic Disorder: Yes Hx Anxiety: Yes Hx Substance Use: Yes (heroin) Other/Comment: substance abuse, etoh - SURGICAL HISTORY Hx Surgeries: Yes Hx Appendectomy: Yes Other/Comment: tonsillectomy, "lung surgery" - ANESTHESIA Hx Anesthesia: Yes Hx Anesthesia Reactions: No Hx Malignant Hyperthermia: No Meds Allergies/Adverse Reactions: Allergies Allergy/AdvReac Type Severity Reaction Status Date / Time No Known Allergies Allergy Verified 10/25/16 21:57 Physical Exam - Additional Findings Additional findings: VS: As above Constitutional: unkempt, obese female, a&o x 4, nad Head and Neck: neck supple, no jvd, trachea midline, carotid midline, no cervical/head mass Eyes: ilu, nonicteric sclera, eom intact ENT: auditory acuity grossly intact, throat not congested, no nasal deformity Cardio: rrr, no m/r/g, no carotid bruit, nml s1, s2 Pulm: +accessory muscle use, +wheezing bilaterally Abd: +umbilical hernia; s/nt/nd, nbs x 4 q, no palpable masses Derm: +linear lesions on LE and UE b/l as well as on trunk; Extr: no edema, no cyanosis, no calf tenderness, no lesions, no varicosities Neuro: cn II-XII grossly intact, ue and le 3+ muscle strength bilaterally, no los ue, le bilaterally and core Results - Vital Signs Recent Vital Signs: Last Vital Signs Temp Pulse 101 H 10/26/16 03:23 Resp 22 10/26/16 03:23 BP 122/77 10/26/16 00:49 Pulse Ox 95 10/26/16 00:49 - Labs Result Diagrams: 10/25/16 22:15 10/25/16 22:15 Assessment & Plan - Assessment and Plan (Free Text) Assessment: 1.) SOB 2/2 COPD Exacerbation - Duonebs - ABx: Levoquin - Solumedrol - CXR shows vascular congestion but no effusions or acute processes, as interpreted by me 2.) B/L LE Lesions - ID Consult for potential scabies 3.) 3 SIRS Criteria - White count, tachycardic, tachypneic - ID Consult, as above 4.) Hypokalemia - 3.2 on admission - 40 mEq given on admission - Recheck 5.) DVT PPHXS - Heparin (b/l LE lesions will make SCD's painful) 6.) GI PPHXS - Protonix <Ingrid Garces - Last Filed: 10/26/16 04:33> Results - Vital Signs Recent Vital Signs: Last Vital Signs Temp Pulse 101 H 10/26/16 03:23 Resp 22 10/26/16 03:23 BP 122/77 10/26/16 00:49 Pulse Ox 95 10/26/16 00:49 - Labs Result Diagrams: 10/25/16 22:15 10/25/16 22:15 Attending/Attestation - Attestation I have personally seen and examined this patient.: Yes I have fully participated in the care of the patient.: Yes I have reviewed all pertinent clinical information: Yes Notes (Text): 10/26/16 04:31 Patient was seen when she was in bed # 4 in the ER. Agree with history , physical examination, assessment and plan. 46 year old white woman with history of asthma , obesity,hepatitis C , tobacco dependence, alcohol abuse, heroine abuse, IVDA, lung surgery , ? pneumothorax, appendectomy, tonsillectomy, family history of cancer, myocardial infarction(MGM,MGF),comes in with complaints of sob, wheezing,cough chest pain, both legs pain, swelling and redness, sinus tachycardia, leukocytosis , hypokalemia,alcohol intoxication.
[2016-10-26] MEDS: Pantoprazole 40 mg EC Tab PO SCH (05:34)
--- NOTE | 2016-10-26 07:13 | RAD ---
HISTORY: sob COMPARISON: 09/14/2016 FINDINGS: LUNGS: No interval consolidation Bronchovascular and interstitial markings - bilateral and symmetrically - top normal. Unchanged appearance PLEURA: No significant pleural effusion identified, no pneumothorax apparent. CARDIOVASCULAR: Normal. +above OSSEOUS STRUCTURES: Bilateral old healed rib fractures. 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 Thoracic spondylosis VISUALIZED UPPER ABDOMEN: Normal. OTHER FINDINGS: None. IMPRESSION: No interval pathology noted.
[2016-10-26] MEDS: Arformoterol 15 mcg/2 ml Inh Sol IH SCH ×2 (07:46→19:39)
[2016-10-26] MEDS: Budesonide 0.25 mg/2 ml Inhal Susp UD IH SCH ×2 (07:46→19:39)
[2016-10-26] MEDS ORDERED: Albuterol-Ipratrop 3 mg / 0.5 (3 ml) UD IH SCH (08:00)
[2016-10-26 08:26] LABS: BARBITURATES, UR NEGATIVE (NEGATIVE); BENZODIAZEPINES, UR NEGATIVE (NEGATIVE); OPIATES, UR NEGATIVE (NEGATIVE); PHENCYCLIDINE, UR NEGATIVE (NEGATIVE)
[2016-10-26] MEDS: levoFLOXacin 500 mg in D5W 500 MG/100 ML BAG IVPB SCH (09:49)
[2016-10-26] MEDS: Multivitamin With Minerals Tab PO SCH (09:49)
[2016-10-26] MEDS ORDERED: MethylPREDNISolone 40 mg Vial IVP SCH (10:00)
[2016-10-26 10:18] LABS: BLOOD UREA NITROGEN 11 mg/dL (7-21); CALCIUM 8.4 mg/dL (8.4-10.5); GFR AFRICAN-AMERICAN > 60; GFR NON-AFRICAN AMERICAN > 60
[2016-10-26] MEDS ORDERED: Permethrin 5% Cream(60 gm) TOP ONE (10:26)
[2016-10-26 10:28] LABS: TROPONIN I < 0.01 ng/mL
--- NOTE | 2016-10-26 10:34 | CP.PCM.CON ---
History of Present Illness - History of Present Illness History of Present Illness: 46 year old female with PMH of COPD, Hepatitis C, history of umbilical hernia, polysubstance abuse with heavy alcohol use and active IV drug user (heroin) came in to [facility] because of shortness of breath even at rest with non-productive cough for the past 2-3 days. She states that she has not been able to refill her inhaler. The patient is homeless. She denies fever or chills, no nausea or vomiting, no chest pain, no headache or dizziness, no abdominal pain, no sore throat or rhinorrhea, no diarrhea, no dysuria. She was also complaining of pain in her legs with associated wounds. Infectious Diseases consult is requested to further evaluate and manage. Review of Systems - Review of Systems All systems: reviewed and no additional remarkable complaints except (as per HPI ) Past Patient History - Infectious Disease Hx of Infectious Diseases: None - Tetanus Immunizations Tetanus Immunization: Unknown - Past Medical History & Family History Past Medical History?: Yes - Past Social History Smoking Status: Heavy Smoker > 10 Cigarettes Daily - CARDIAC Hx Cardiac Disorders: No - PULMONARY Hx Respiratory Disorders: Yes Hx Asthma: Yes Hx Bronchitis: Yes Hx Chronic Obstructive Pulmonary Disease (COPD): Yes Hx Emphysema: Yes Other/Comment: pneumothorax with lung surgery - NEUROLOGICAL Hx Neurological Disorder: No Hx Alzheimer's Disease: No HX Cerebrovascular Accident: No Hx Dementia: No Hx Dizziness: No Hx Meningitis: No Hx Migraine: No Hx Parkinson's Disease: No Hx Seizures: No Hx Transient Ischemic Attacks (TIA): No - HEENT Hx HEENT Problems: No - RENAL Hx Chronic Kidney Disease: No - ENDOCRINE/METABOLIC Hx Endocrine Disorders: Yes - HEMATOLOGICAL/ONCOLOGICAL Hx Blood Disorders: Yes Hx Hepatitis C: Yes - INTEGUMENTARY Hx Dermatological Problems: Yes (Multiple scabs, scratches covering body) - MUSCULOSKELETAL/RHEUMATOLOGICAL Hx Musculoskeletal Disorders: No Hx Falls: Yes - GASTROINTESTINAL Hx Gastrointestinal Disorders: No Other/Comment: Umbilical hernia present - GENITOURINARY/GYNECOLOGICAL Hx Genitourinary Disorders: No Hx Sexually Transmitted Disorders: Yes (trichomonas) - PSYCHIATRIC Hx Psychophysiologic Disorder: Yes Hx Anxiety: Yes Hx Substance Use: Yes (heroin) Other/Comment: substance abuse, etoh - SURGICAL HISTORY Hx Surgeries: Yes Hx Appendectomy: Yes Other/Comment: tonsillectomy, "lung surgery" - ANESTHESIA Hx Anesthesia: Yes Hx Anesthesia Reactions: No Hx Malignant Hyperthermia: No Meds Allergies/Adverse Reactions: Allergies Allergy/AdvReac Type Severity Reaction Status Date / Time No Known Allergies Allergy Verified 10/25/16 21:57 - Medications Medications: Current Medications Albuterol/Ipratropium (Duoneb 3 Mg/0.5 Mg (3 Ml) Ud) 3 ml IH Q2H PRN PRN Reason: Shortness of Breath Arformoterol Tartrate (Brovana) 15 mcg IH [id number] JACK Budesonide (Pulmicort Respules) 0.25 mg IH [id number] JACK Folic Acid (Folic Acid) 1 mg PO DAILY [facility] Heparin Sodium (Porcine) (Heparin) 5,000 units SC Q8 JACK PRN Reason: Protocol Last Admin: 10/26/16 05:34 Dose: 5,000 units Levofloxacin/Dextrose (Levaquin 500mg) 500 mg in 100 mls @ 100 mls/hr IVPB DAILY [facility] Lorazepam (Ativan) 2 mg IVP Q6H PRN; Protocol PRN Reason: Agitation Last Admin: 10/26/16 03:07 Dose: 2 mg Methylprednisolone (Solu-Medrol) 40 mg IVP Q12 [facility] Multivitamins/Minerals (Therapeutic-M Tab) 1 tab PO 0800 [facility] Nicotine (Nicoderm Cq) 1 patch TD DAILY [facility] Pantoprazole Sodium (Protonix Ec Tab) 40 mg PO 0600 [facility] Last Admin: 10/26/16 05:34 Dose: 40 mg Thiamine HCl (Vitamin B1 Tab) 100 mg PO DAILY [facility] Tramadol HCl (Ultram) 50 mg PO TID PRN PRN Reason: Pain, severe (8-10) Physical Exam - Constitutional Appears: Non-toxic, No Acute Distress - Head Exam Head Exam: NORMAL INSPECTION - ENT Exam ENT Exam: Mucous Membranes Moist - Neck Exam Neck exam: Negative for: Lymphadenopathy, Meningismus - Respiratory Exam Respiratory Exam: Decreased Breath Sounds, Wheezes (expiratory) - Cardiovascular Exam Cardiovascular Exam: +S1, +S2 - GI/Abdominal Exam GI & Abdominal Exam: Soft. absent: Tenderness - Extremities Exam Additional comments: bilateral lower extremity scabs, also note of an erythematous nodule on the right anterior leg which is tender to touch Results - Vital Signs Recent Vital Signs: Last Vital Signs Temp Pulse 101 H 10/26/16 05:08 Resp 22 10/26/16 03:23 BP 122/77 10/26/16 00:49 Pulse Ox 95 10/26/16 00:49 - Labs Result Diagrams: 10/25/16 22:15 10/25/16 22:15 Labs: Laboratory Results - last 24 hr 10/26/16 03:50 Troponin I < 0.01 Assessment & Plan - Assessment and Plan (Free Text) Plan: Assessment Consider erythema nodosum on the right leg in a patient with history of Hepatitis C, R/O scabies on both lower extremities Systemic Inflammatory Response Syndrome probably from COPD exacerabtion COPD Hepatitis C history of umbilical hernia polysubstance abuse with heavy alcohol use and active IV drug user (heroin) Plan Started patient on Levaquin and monitor clinical response will give Permethrin cream and observe response Will get HCV RNA PCR, genotype and HIV 4th generation test will follow clinically
[2016-10-26] MEDS ORDERED: Multivitamin (MVI) 10 ML, Thiamine 100 MG, Folic Acid 1 MG in Sodium Chloride 0.9% 1,00... IV ONE (13:54)
[2016-10-26] MEDS: Albuterol-Ipratrop 3 mg / 0.5 (3 ml) UD IH SCH ×4 (14:07→23:33)
[2016-10-26] MEDS: Multivitamin (MVI) 10 ML, Thiamine 100 MG, Folic Acid 1 MG in Sodium Chloride 0.9% 1,00... IV SCH (15:48)
--- NOTE | 2016-10-26 16:41 | CARD ---
APPROVED REPORT EKG Measurement Heart [id number] <Conclusion> Normal sinus rhythm with sinus arrhythmia Normal ECG
[2016-10-26] MEDS: MethylPREDNISolone 40 mg Vial IVP SCH (21:20)
[2016-10-26 22:54] LABS: URINE BILIRUBIN NEGATIVE (NEGATIVE); URINE BLOOD LARGE (NEGATIVE); URINE GLUCOSE (UA) 250 mg/dL (NEGATIVE); URINE LEUKOCYTE ESTERASE NEGATIVE Leu/uL (NEGATIVE); URINE NITRATE NEGATIVE (NEGATIVE); URINE PROTEIN NEGATIVE mg/dL (<30 mg/dL); URINE UROBILINOGEN 0.2 E.U./dL (<1 E.U./dL)
[2016-10-26 22:57] LABS: URINE APPEARANCE SL CLOUDY (CLEAR); URINE COLOR YELLOW (YELLOW)
[2016-10-26 23:05] LABS: URINE BACTERIA FEW (NEG)
[2016-10-27] MEDS: Multivitamin (MVI) 10 ML, Thiamine 100 MG, Folic Acid 1 MG in Sodium Chloride 0.9% 1,00... IV SCH ×3 (02:02→18:43)
[2016-10-27] MEDS: MethylPREDNISolone 40 mg Vial IVP SCH ×3 (05:14→22:15)
[2016-10-27] MEDS: Pantoprazole 40 mg EC Tab PO SCH (05:15)
[2016-10-27] MEDS: Albuterol-Ipratrop 3 mg / 0.5 (3 ml) UD IH SCH ×5 (05:21→20:19)
[2016-10-27 07:46] LABS: BASO # 0.01 K/mm3 (0.0-2.0); BASO % 0.1 % (0.0-3.0); EOS % 0.1 % (1.5-5.0); GRAN # 13.74 (1.4-6.5); GRAN % 87.4 % (50.0-68.0); HEMOGLOBIN 13.9 gm/dL (12.0-16.0); LYMPH # 1.2 (1.2-3.4); LYMPH % 7.5 % (22.0-35.0); MEAN CELL VOLUME 100.5 fL (80.0-105.0); MEAN CORPUSCULAR HEMOGLOBIN 32.9 pg (25.0-35.0); MEAN CORPUSCULAR HGB CONC 32.8 g/dl (31.0-37.0); MEAN PLATELET VOLUME 10.1 fl (7.0-11.0); MONO # 0.8 (0.1-0.6); MONO % 4.9 % (1.0-6.0); PLATELET COUNT 353 10^3/uL (120.0-450.0); RBC 4.22 10^6/uL (3.5-6.1); RED CELL DISTRIBUTION WIDTH 13.5 % (11.5-14.5); WHITE BLOOD COUNT 15.7 10^3/ul (4.5-11.0)
[2016-10-27] MEDS: Multivitamin With Minerals Tab PO SCH (07:49)
[2016-10-27] MEDS: Arformoterol 15 mcg/2 ml Inh Sol IH SCH ×2 (07:50→20:19)
[2016-10-27] MEDS: Budesonide 0.25 mg/2 ml Inhal Susp UD IH SCH (07:50)
[2016-10-27 07:57] LABS: ALB/GLOB RATIO 1.1 (1.1-1.8); ALBUMIN 3.2 g/dL (3.0-4.8); ALT/SGPT 45 U/L (7-56); AST/SGOT 37 U/L (15-39); BLOOD UREA NITROGEN 10 mg/dL (7-21); CALCIUM 8.4 mg/dL (8.4-10.5); GFR AFRICAN-AMERICAN > 60; GFR NON-AFRICAN AMERICAN > 60
[2016-10-27] MEDS: levoFLOXacin 500 mg in D5W 500 MG/100 ML BAG IVPB SCH (09:39)
--- NOTE | 2016-10-27 14:22 | CP.PCM.PN ---
<Juli Louise B - Last Filed: 10/27/16 18:12> Objective - Vital Signs/Intake and Output Vital Signs (last 24 hours): Temp Pulse Resp BP Pulse Ox 98.0 F 84 20 120/70 98 10/27/16 16:00 10/27/16 16:00 10/27/16 16:00 10/27/16 16:00 10/27/16 16:00 - Medications Medications: Current Medications Albuterol/Ipratropium (Duoneb 3 Mg/0.5 Mg (3 Ml) Ud) 3 ml IH Q4 [facility] Last Admin: 10/27/16 16:38 Dose: Not Given Albuterol/Ipratropium (Duoneb 3 Mg/0.5 Mg (3 Ml) Ud) 3 ml IH Q2H PRN PRN Reason: Shortness of Breath Arformoterol Tartrate (Brovana) 15 mcg IH [id number] [facility] Last Admin: 10/27/16 07:50 Dose: 15 mcg Budesonide (Pulmicort Respules) 0.25 mg IH [id number] [facility] Last Admin: 10/27/16 07:50 Dose: 0.25 mg Chlordiazepoxide (Librium) 25 mg PO Q8 JACK PRN Reason: Protocol Last Admin: 10/27/16 13:48 Dose: 25 mg Diphenhydramine HCl (Benadryl) 25 mg PO Q6 PRN PRN Reason: Itching / Pruritus Folic Acid (Folic Acid) 1 mg PO DAILY [facility] Last Admin: 10/27/16 09:39 Dose: 1 mg Heparin Sodium (Porcine) (Heparin) 5,000 units SC Q8 JACK PRN Reason: Protocol Last Admin: 10/27/16 13:47 Dose: 5,000 units Multivitamins/Vitamin C 10 ml/Thiamine HCl 100 mg/ Folic Acid 1 mg/ Sodium Chloride 1,011.2 mls @ 100 mls/hr IV .Q10H7M [facility] Last Admin: 10/27/16 02:35 Dose: 100 mls/hr Levofloxacin (Levaquin) 500 mg PO DAILY [facility] Stop: 10/31/16 10:01 Lorazepam (Ativan) 2 mg IVP Q6H PRN; Protocol PRN Reason: Agitation Last Admin: 10/27/16 16:03 Dose: 2 mg Methylprednisolone (Solu-Medrol) 40 mg IVP Q8 [facility] Last Admin: 10/27/16 13:47 Dose: 40 mg Multivitamins/Minerals (Therapeutic-M Tab) 1 tab PO 0800 [facility] Last Admin: 10/27/16 07:49 Dose: 1 tab Nicotine (Nicoderm Cq) 1 patch TD DAILY [facility] Last Admin: 10/27/16 09:39 Dose: 1 patch Pantoprazole Sodium (Protonix Ec Tab) 40 mg PO 0600 [facility] Last Admin: 10/27/16 05:15 Dose: 40 mg Tramadol HCl (Ultram) 50 mg PO TID PRN PRN Reason: Pain, severe (8-10) Last Admin: 10/27/16 07:48 Dose: 50 mg Attending/Attestation - Attestation I have personally seen and examined this patient.: Yes I have fully participated in the care of the patient.: Yes I have reviewed all pertinent clinical information, including history, physical exam and plan: Yes Notes (Text): I have seen and examined patient at bedside. Agree with the above note with the following additions/ exceptions: Briefly, this is 46 year old female with history of COPD, Alcohol abuse, homeless, IVDA, known untreated Hep C who was admitted for COPD exacerbation. Patient continues to wheeze diffusely and is able to talk only in small sentences. Continue solumedrol, duonebs, brovana and levaquin. Continue permethrin for Skin lesions. Will consult to arrange for snf. Patient was advised to follow up in [place] [facility] or [facility] for Hep C treatment. Dr Juli Louise <ALAYNA WARE - Last Filed: 10/27/16 23:29> Subjective - Date & Time of Evaluation Date of Evaluation: 10/27/16 Time of Evaluation: 10:15 - Subjective Subjective: Pt seen and examined this morning. Pt reports an improvement in wheezing, SOB and cough. Pt complains that the rash on her legs is burning. Denies fever, chills, chest pain, abd pain, constipation, diarrhea Objective - Vital Signs/Intake and Output Vital Signs (last 24 hours): Temp Pulse Resp BP Pulse Ox 98.3 F 84 20 133/91 H 96 10/27/16 12:00 10/27/16 12:00 10/27/16 12:00 10/27/16 12:00 10/27/16 06:00 - Medications Medications: Current Medications Albuterol/Ipratropium (Duoneb 3 Mg/0.5 Mg (3 Ml) Ud) 3 ml IH Q4 [facility] Last Admin: 10/27/16 13:33 Dose: 3 ml Arformoterol Tartrate (Brovana) 15 mcg IH [id number] [facility] Last Admin: 10/27/16 07:50 Dose: 15 mcg Budesonide (Pulmicort Respules) 0.25 mg IH [id number] [facility] Last Admin: 10/27/16 07:50 Dose: 0.25 mg Chlordiazepoxide (Librium) 25 mg PO Q8 JACK PRN Reason: Protocol Last Admin: 10/27/16 13:48 Dose: 25 mg Diphenhydramine HCl (Benadryl) 25 mg PO Q6 PRN PRN Reason: Itching / Pruritus Folic Acid (Folic Acid) 1 mg PO DAILY [facility] Last Admin: 10/27/16 09:39 Dose: 1 mg Heparin Sodium (Porcine) (Heparin) 5,000 units SC Q8 JACK PRN Reason: Protocol Last Admin: 10/27/16 13:47 Dose: 5,000 units Multivitamins/Vitamin C 10 ml/Thiamine HCl 100 mg/ Folic Acid 1 mg/ Sodium Chloride 1,011.2 mls @ 100 mls/hr IV .Q10H7M [facility] Last Admin: 10/27/16 02:35 Dose: 100 mls/hr Levofloxacin (Levaquin) 500 mg PO DAILY [facility] Stop: 10/31/16 10:01 Lorazepam (Ativan) 2 mg IVP Q6H PRN; Protocol PRN Reason: Agitation Last Admin: 10/27/16 09:53 Dose: 2 mg Methylprednisolone (Solu-Medrol) 40 mg IVP Q8 [facility] Last Admin: 10/27/16 13:47 Dose: 40 mg Multivitamins/Minerals (Therapeutic-M Tab) 1 tab PO 0800 [facility] Last Admin: 10/27/16 07:49 Dose: 1 tab Nicotine (Nicoderm Cq) 1 patch TD DAILY [facility] Last Admin: 10/27/16 09:39 Dose: 1 patch Pantoprazole Sodium (Protonix Ec Tab) 40 mg PO 0600 [facility] Last Admin: 10/27/16 05:15 Dose: 40 mg Tramadol HCl (Ultram) 50 mg PO TID PRN PRN Reason: Pain, severe (8-10) Last Admin: 10/27/16 07:48 Dose: 50 mg - Constitutional Appears: Well, No Acute Distress - Head Exam Head Exam: ATRAUMATIC, NORMOCEPHALIC - Eye Exam Eye Exam: EOMI, Normal appearance, PERRL - ENT Exam ENT Exam: Mucous Membranes Moist, Normal Exam - Respiratory Exam Respiratory Exam: Wheezes (expiratory wheezing b/l), NORMAL BREATHING PATTERN. absent: Accessory Muscle Use, Chest Wall Tenderness, Rales, Rhonchi, Respiratory Distress - Cardiovascular Exam Cardiovascular Exam: RRR, +S1, +S2. absent: Gallop, Rubs, Murmur - GI/Abdominal Exam GI & Abdominal Exam: Soft, Hernia (umbilical), Normal Bowel Sounds. absent: Distended, Tenderness Additional comments: skin rash on lower abd/groin area unchanged from previous exams - Neurological Exam Neurological Exam: Alert, Awake, Oriented x3 - Psychiatric Exam Psychiatric exam: Normal Affect, Normal Mood - Skin Skin Exam: Normal Color, Rash, Warm Additional comments: diffuse hyperpigmented lesions of various sizes on medial and lateral sides on LE b/l, unchanged from previous exams. One larger lesion that is load dispatcher in color and raised located on the R anterior lower leg, unchanged from previous exams. Assessment and Plan - Assessment and Plan (Free Text) Plan: 46yo F h/o COPD, EtOH abuse, IVDU with acute COPD exacerbation and skin rash of unknown etiology on b/l LE and lower abd. COPD exacerbation, improving - Duonebs q2 PRN - Cont. solumedrol, scheduled duonebs, brovana, budesonide, levaquin - Cont NC 2L - Obtain O2 sats on RA tomorrow pending improvement Skin rash - Diphenhydramine PRN for itching/burning - Tramadol PRN for pain - ID recs appreciated promethrin cream, HIV/HCV to r/o erythema nodosum - H/O HCV per ID note Substance abuse - Cont. folic acid, ativan, nicoderm patch, banana bag, librium Homeless - Social work consult for snf placement, pt is currently living in someone s backyard Hypokalemia resolved - K 4.7 GI ppx PTX. DVT ppx heparin SC Dispo: d/c tele, cont. inpatient management 2/2 continued COPD exacerbation symptoms Pt examined and discussed with attending, Dr. Aspen Roman, OMS4 Alayna Ware, PGY1
[2016-10-27] MEDS ORDERED: Albuterol-Ipratrop 3 mg / 0.5 (3 ml) UD IH PRN (16:35)
[2016-10-28] MEDS: Budesonide 0.25 mg/2 ml Inhal Susp UD IH SCH ×3 (01:19→20:30)
[2016-10-28] MEDS: Albuterol-Ipratrop 3 mg / 0.5 (3 ml) UD IH SCH ×7 (01:19→23:45)
[2016-10-28] MEDS: Multivitamin (MVI) 10 ML, Thiamine 100 MG, Folic Acid 1 MG in Sodium Chloride 0.9% 1,00... IV SCH ×2 (03:20→16:01)
[2016-10-28] MEDS: MethylPREDNISolone 40 mg Vial IVP SCH ×2 (06:17→21:39)
[2016-10-28] MEDS: Pantoprazole 40 mg EC Tab PO SCH (06:18)
[2016-10-28] MEDS: Arformoterol 15 mcg/2 ml Inh Sol IH SCH ×2 (07:25→20:28)
[2016-10-28] MEDS: Multivitamin With Minerals Tab PO SCH (08:17)
[2016-10-28 08:18] LABS: EOS % 0.1 % (1.5-5.0); GRAN # 14.22 (1.4-6.5); GRAN % 87.5 % (50.0-68.0); HEMOGLOBIN 13.3 gm/dL (12.0-16.0); LYMPH % 6.1 % (22.0-35.0); MEAN CORPUSCULAR HEMOGLOBIN 33.5 pg (25.0-35.0); MEAN CORPUSCULAR HGB CONC 33.2 g/dl (31.0-37.0); MEAN PLATELET VOLUME 9.9 fl (7.0-11.0); MONO % 6.3 % (1.0-6.0); PLATELET COUNT 365 10^3/uL (120.0-450.0); RBC 3.97 10^6/uL (3.5-6.1); RED CELL DISTRIBUTION WIDTH 13.5 % (11.5-14.5); WHITE BLOOD COUNT 16.2 10^3/ul (4.5-11.0)
[2016-10-28 08:53] LABS: ALB/GLOB RATIO 1.1 (1.1-1.8); ALT/SGPT 43 U/L (7-56); AST/SGOT 28 U/L (15-39); BLOOD UREA NITROGEN 14 mg/dL (7-21); CALCIUM 8.7 mg/dL (8.4-10.5); GFR AFRICAN-AMERICAN > 60; GFR NON-AFRICAN AMERICAN > 60
[2016-10-28] MEDS: levoFLOXacin 500 MG TAB PO SCH (09:49)
--- NOTE | 2016-10-28 13:28 | PN ---
DATE: 10/27/2016 SUBJECTIVE: The patient is seen in room 271, bed-2. No fevers. No chills. No nausea. PHYSICAL EXAMINATION VITAL SIGNS: Temperature is 98, blood pressure is 130/70, respiratory rate of 16. HEENT: Unremarkable. NECK: Supple. LUNGS: Decreased breath sounds. HEART: Normal S1, S2. ABDOMEN: Soft, nontender. LABORATORY DATA: [place] [address], hemoglobin of 13, platelets of 353. Chemistries are noted. Urinalysis is noted. HIV is negative. Microbiology reveals the blood cultures are negative and review of orders revealed the patient to be on IV Levaquin and Solu-Medrol. *------* was given. The patient's chest x-ray, no interval consolidation. No interval pathologies noted. ASSESSMENT AND PLAN: This is a 46-year-old female with chronic obstructive lung disease, hepatitis C, history of umbilical hernia, polysubstance abuse, alcohol abuse, active drug user, heroin and admitted with shortness of breath and nonproductive cough with erythema nodosum on the right leg in a patient with a history of hepatitis C, rule out scabies and the patient with systemic inflammatory response syndrome. Currently on IV Levaquin, may switch to p.o. Levaquin pending final pa-culture results and work up results. Margarito Robert MD
[2016-10-28] MEDS: Hydrocerin(120 gm) TOP SCH (14:26)
[2016-10-28] MEDS: Permethrin 5% Cream(60 gm) TOP SCH (14:27)
--- NOTE | 2016-10-28 14:28 | RAD ---
HISTORY: cough and COPD exacerbation COMPARISON: 10/26/2016 FINDINGS: LUNGS: No active pulmonary disease. PLEURA: No significant pleural effusion identified, no pneumothorax apparent. CARDIOVASCULAR: Normal. OSSEOUS STRUCTURES: No significant abnormalities. VISUALIZED UPPER ABDOMEN: Normal. OTHER FINDINGS: None. IMPRESSION: No active disease.
--- NOTE | 2016-10-28 18:10 | CP.PCM.PN ---
<ALAYNA WARE - Last Filed: 10/28/16 18:28> Subjective - Date & Time of Evaluation Date of Evaluation: 10/28/16 Time of Evaluation: 10:50 - Subjective Subjective: Patient was seen and examined bedside. She states that she is still feeling a cough, short of breath and wheezing. Also complains about not getting treatment for her legs and that they are burning. pt denies cp/palpitations, fevers, chills, nightsweats, abd pain. Objective - Vital Signs/Intake and Output Vital Signs (last 24 hours): Temp Pulse Resp BP Pulse Ox 97.7 F 95 H 20 147/95 H 95 10/28/16 16:00 10/28/16 16:00 10/28/16 16:00 10/28/16 16:00 10/28/16 16:00 Intake and Output: 10/28/16 10/28/16 06:59 18:59 Intake Total 2280 600 Balance 2280 600 - Medications Medications: Current Medications Albuterol/Ipratropium (Duoneb 3 Mg/0.5 Mg (3 Ml) Ud) 3 ml IH Q4 [facility] Last Admin: 10/28/16 15:36 Dose: Not Given Albuterol/Ipratropium (Duoneb 3 Mg/0.5 Mg (3 Ml) Ud) 3 ml IH Q2H PRN PRN Reason: Shortness of Breath Last Admin: 10/27/16 18:48 Dose: 3 ml Arformoterol Tartrate (Brovana) 15 mcg IH [id number] [facility] Last Admin: 10/28/16 07:25 Dose: Not Given Budesonide (Pulmicort Respules) 0.25 mg IH [id number] [facility] Last Admin: 10/28/16 07:26 Dose: Not Given Chlordiazepoxide (Librium) 25 mg PO Q12 JACK PRN Reason: Protocol Last Admin: 10/28/16 09:50 Dose: 25 mg Diphenhydramine HCl (Benadryl) 25 mg PO Q6 PRN PRN Reason: Itching / Pruritus Last Admin: 10/28/16 09:43 Dose: 25 mg Folic Acid (Folic Acid) 1 mg PO DAILY [facility] Last Admin: 10/28/16 09:49 Dose: 1 mg Heparin Sodium (Porcine) (Heparin) 5,000 units SC Q8 JACK PRN Reason: Protocol Last Admin: 10/28/16 14:36 Dose: 5,000 units Multivitamins/Vitamin C 10 ml/Thiamine HCl 100 mg/ Folic Acid 1 mg/ Sodium Chloride 1,011.2 mls @ 100 mls/hr IV .Q10H7M [facility] Last Admin: 10/28/16 16:01 Dose: 100 mls/hr Levofloxacin (Levaquin) 500 mg PO DAILY [facility] Stop: 10/31/16 10:01 Last Admin: 10/28/16 09:49 Dose: 500 mg Lorazepam (Ativan) 2 mg IVP Q6H PRN; Protocol PRN Reason: Agitation Last Admin: 10/28/16 14:34 Dose: 2 mg Methylprednisolone (Solu-Medrol) 40 mg IVP Q12 [facility] Multi-Ingredient Cream (Hydrocerin Cream) 0 ea TOP DAILY [facility] Last Admin: 10/28/16 14:26 Dose: 1 appl Multivitamins/Minerals (Therapeutic-M Tab) 1 tab PO 0800 [facility] Last Admin: 10/28/16 08:17 Dose: 1 tab Nicotine (Nicoderm Cq) 1 patch TD DAILY [facility] Last Admin: 10/28/16 09:41 Dose: 1 patch Pantoprazole Sodium (Protonix Ec Tab) 40 mg PO 0600 [facility] Last Admin: 10/28/16 06:18 Dose: 40 mg Permethrin (Permethrin 5% Cream) 0 gm TOP DAILY [facility] Last Admin: 10/28/16 14:27 Dose: 1 appl Tramadol HCl (Ultram) 50 mg PO TID PRN PRN Reason: Pain, severe (8-10) Last Admin: 10/28/16 09:42 Dose: 50 mg - Labs Labs: 10/28/16 07:30 10/28/16 07:30 Assessment and Plan - Assessment and Plan (Free Text) Plan: 46yo F h/o COPD, EtOH abuse, known and untreated HCV, IVDU with acute COPD exacerbation and skin rash of unknown etiology on b/l LE and lower abd. COPD exacerbation, improving - Duonebs q2 PRN - solumedrol decreased to 40 q12 - cont scheduled duonebs, brovana, budesonide, levaquin - Cont NC 2L - Obtain O2 sats on RA pending improvement Skin rash - Diphenhydramine PRN for itching/burning - Tramadol PRN for pain - start Hydrocerin cream - start Permethrin cream, per ID - ID recs appreciated HTN - 147/95 - switched to low sodium HHD - IVF stopped - monitor VS Hx of HCV (known and untreated) - monitor BMP - caution with blood Substance abuse - Cont. folic acid, ativan, nicoderm patch, banana bag, librium Homeless - Social work consult for [facility] placement, pt is currently living in someone s backyard Hypokalemia resolved - K 4.6 GI ppx PTX. DVT ppx heparin SC Dispo: cont. inpatient management 2/ continued COPD exacerbation symptoms Pt seen, discussed and evaluated with attending, Dr. Aspen Ware, PGY1 <Juli Louise - Last Filed: 11/02/16 15:41> Objective - Vital Signs/Intake and Output Vital Signs (last 24 hours): Temp Pulse Resp BP Pulse Ox 98.9 F 112 H 22 105/72 93 L 10/31/16 16:00 10/31/16 16:00 10/31/16 16:00 10/31/16 16:00 10/31/16 16:00 - Labs Labs: 10/31/16 06:45 10/31/16 06:45 Attending/Attestation - Attestation I have personally seen and examined this patient.: Yes I have fully participated in the care of the patient.: Yes I have reviewed all pertinent clinical information, including history, physical exam and plan: Yes Notes (Text): I have seen and examined patient at bedside. Agree with the above note with the following additions/ exceptions: Briefly, this is 46 year old female with history of COPD, Alcohol abuse, homeless, IVDA, known untreated Hep C who was admitted for COPD exacerbation. Patient continues to wheeze diffusely however is slightly better. Today she is able to talk in small sentences. Continue solumedrol taper, duonebs, brovana and levaquin. Continue permethrin for Skin lesions. consult appreciated to arrange for [facility]. Patient was advised to follow up in [place] [facility] or [facility] for Hep C treatment. Dr Juli Louise
[2016-10-29] MEDS: Albuterol-Ipratrop 3 mg / 0.5 (3 ml) UD IH SCH ×7 (03:53→23:25)
[2016-10-29] MEDS: Pantoprazole 40 mg EC Tab PO SCH (05:24)
[2016-10-29] MEDS: Arformoterol 15 mcg/2 ml Inh Sol IH SCH ×2 (07:31→19:25)
[2016-10-29] MEDS: Budesonide 0.25 mg/2 ml Inhal Susp UD IH SCH ×2 (07:34→19:25)
[2016-10-29 08:08] LABS: BASO # 0.01 K/mm3 (0.0-2.0); BASO % 0.1 % (0.0-3.0); GRAN # 11.87 (1.4-6.5); GRAN % 81.5 % (50.0-68.0); LYMPH # 1.6 (1.2-3.4); LYMPH % 10.8 % (22.0-35.0); MEAN CELL VOLUME 100.5 fL (80.0-105.0); MEAN CORPUSCULAR HEMOGLOBIN 33.3 pg (25.0-35.0); MEAN CORPUSCULAR HGB CONC 33.1 g/dl (31.0-37.0); MEAN PLATELET VOLUME 10.2 fl (7.0-11.0); MONO # 1.1 (0.1-0.6); MONO % 7.6 % (1.0-6.0); PLATELET COUNT 355 10^3/uL (120.0-450.0); RBC 4.21 10^6/uL (3.5-6.1); RED CELL DISTRIBUTION WIDTH 13.6 % (11.5-14.5); WHITE BLOOD COUNT 14.6 10^3/ul (4.5-11.0)
[2016-10-29 08:10] LABS: ALB/GLOB RATIO 1.1 (1.1-1.8); ALBUMIN 3.2 g/dL (3.0-4.8); ALT/SGPT 52 U/L (7-56); AST/SGOT 36 U/L (15-39); BLOOD UREA NITROGEN 18 mg/dL (7-21); CALCIUM 8.4 mg/dL (8.4-10.5); GFR AFRICAN-AMERICAN > 60; GFR NON-AFRICAN AMERICAN > 60
[2016-10-29] MEDS: Multivitamin Therapeutic Tab PO SCH (10:17)
[2016-10-29] MEDS: Multivitamin With Minerals Tab PO SCH (10:17)
[2016-10-29] MEDS: MethylPREDNISolone 40 mg Vial IVP SCH (10:17)
[2016-10-29] MEDS: levoFLOXacin 500 MG TAB PO SCH (10:17)
[2016-10-29] MEDS: Hydrocerin(120 gm) TOP SCH (10:49)
[2016-10-29] MEDS: Permethrin 5% Cream(60 gm) TOP SCH (10:50)
--- NOTE | 2016-10-29 14:51 | CP.PCM.PN ---
<Paco Pisano - Last Filed: 10/29/16 14:53> Subjective - Date & Time of Evaluation Date of Evaluation: 10/29/16 Time of Evaluation: 14:48 - Subjective Subjective: Pt seen and examined at bedside. Pt doing well overnight as per nursing. Pt remains on contact precautions for Scabies. Pt states she feels mildly agitated. She mentions improvement in breathing. Denies CP, SOB, N/V/D. Objective - Vital Signs/Intake and Output Vital Signs (last 24 hours): Temp Pulse Resp BP Pulse Ox 98 F 82 20 126/89 95 10/29/16 08:01 10/29/16 08:01 10/29/16 08:01 10/29/16 08:01 10/29/16 08:01 Intake and Output: 10/29/16 10/29/16 06:59 18:59 Intake Total 1540 Balance 1540 - Medications Medications: Current Medications Albuterol/Ipratropium (Duoneb 3 Mg/0.5 Mg (3 Ml) Ud) 3 ml IH Q4 [facility] Last Admin: 10/29/16 11:07 Dose: 3 ml Albuterol/Ipratropium (Duoneb 3 Mg/0.5 Mg (3 Ml) Ud) 3 ml IH Q2H PRN PRN Reason: Shortness of Breath Last Admin: 10/27/16 18:48 Dose: 3 ml Arformoterol Tartrate (Brovana) 15 mcg IH [id number] [facility] Last Admin: 10/29/16 07:31 Dose: 15 mcg Budesonide (Pulmicort Respules) 0.25 mg IH [id number] [facility] Last Admin: 10/29/16 07:34 Dose: 0.25 mg Chlordiazepoxide (Librium) 25 mg PO Q8H JACK PRN Reason: Protocol Diphenhydramine HCl (Benadryl) 25 mg PO Q6 PRN PRN Reason: Itching / Pruritus Last Admin: 10/28/16 09:43 Dose: 25 mg Folic Acid (Folic Acid) 1 mg PO DAILY [facility] Last Admin: 10/29/16 10:17 Dose: 1 mg Heparin Sodium (Porcine) (Heparin) 5,000 units SC Q8 JACK PRN Reason: Protocol Last Admin: 10/29/16 12:59 Dose: 5,000 units Levofloxacin (Levaquin) 500 mg PO DAILY [facility] Stop: 10/31/16 10:01 Last Admin: 10/29/16 10:17 Dose: 500 mg Lorazepam (Ativan) 2 mg IVP Q4H PRN; Protocol PRN Reason: Agitation Last Admin: 10/29/16 11:54 Dose: 2 mg Methylprednisolone (Solu-Medrol) 40 mg IVP DAILY [facility] Multi-Ingredient Cream (Hydrocerin Cream) 0 ea TOP DAILY [facility] Last Admin: 10/29/16 10:49 Dose: 1 appl Multivitamins (Thera Tab) 1 tab PO 0800 [facility] Last Admin: 10/29/16 10:17 Dose: 1 tab Multivitamins/Minerals (Therapeutic-M Tab) 1 tab PO 0800 [facility] Last Admin: 10/29/16 10:17 Dose: 1 tab Nicotine (Nicoderm Cq) 1 patch TD DAILY [facility] Last Admin: 10/29/16 10:14 Dose: 1 patch Pantoprazole Sodium (Protonix Ec Tab) 40 mg PO 0600 [facility] Last Admin: 10/29/16 05:24 Dose: 40 mg Permethrin (Permethrin 5% Cream) 0 gm TOP DAILY [facility] Last Admin: 10/29/16 10:50 Dose: 1 appl Thiamine HCl (Vitamin B1 Tab) 100 mg PO DAILY [facility] Last Admin: 10/29/16 10:15 Dose: 100 mg Tramadol HCl (Ultram) 50 mg PO TID PRN PRN Reason: Pain, severe (8-10) Last Admin: 10/28/16 09:42 Dose: 50 mg - Labs Labs: 10/29/16 07:55 10/29/16 07:55 - Constitutional Appears: Non-toxic, No Acute Distress - Head Exam Head Exam: ATRAUMATIC, NORMAL INSPECTION, NORMOCEPHALIC - Respiratory Exam Respiratory Exam: Wheezes (Improvement in wheezing b/l), NORMAL BREATHING PATTERN - Cardiovascular Exam Cardiovascular Exam: RRR, +S1, +S2 - GI/Abdominal Exam GI & Abdominal Exam: Soft, Normal Bowel Sounds. absent: Tenderness - Extremities Exam Extremities Exam: absent: Calf Tenderness, Pedal Edema - Neurological Exam Neurological Exam: Alert, Awake, Oriented x3 - Psychiatric Exam Psychiatric exam: Normal Affect, Normal Mood - Skin Skin Exam: Intact, Normal Color, Warm Assessment and Plan - Assessment and Plan (Free Text) Plan: 46 y/o F with PMH of COPD, EtOH abuse, known and untreated HCV, IVDA admitted with COPD exacerbation and scabies. Pt on contact precautions for scabies and given permethrin cream. Pt being tapered on solumedrol for COPD exacerbation. Pt with hx of chronic alcohol abuse on librium and ativan prn. Will continue to monitor respiratory status. COPD exacerbation - Solumedrol tapered - Continue scheduled duonebs, brovana, budesonide, levaquin - Continue NC 2L as needed Alcohol withdrawal - Ativan 2 mg q4h prn - Librium 25 q8h scheduled - Thiamine, folic acid, multivitamin - CIWA protocol Skin rash - Diphenhydramine PRN for itching/burning - Hydrocerin cream - Permethrin cream - ID consulted PPX Heparin Protonix Seen, reviewed, and discussed with attending Aliya, PGY-2 <Louie Dean - Last Filed: 10/29/16 21:00> Objective - Vital Signs/Intake and Output Vital Signs (last 24 hours): Temp Pulse Resp BP Pulse Ox 98.3 F 88 18 127/77 98 10/29/16 17:13 10/29/16 17:13 10/29/16 17:13 10/29/16 17:13 10/29/16 17:13 Intake and Output: 10/29/16 10/30/16 18:59 06:59 Intake Total 520 Balance 520 - Medications Medications: Current Medications Albuterol/Ipratropium (Duoneb 3 Mg/0.5 Mg (3 Ml) Ud) 3 ml IH Q4 [facility] Last Admin: 10/29/16 19:21 Dose: 3 ml Albuterol/Ipratropium (Duoneb 3 Mg/0.5 Mg (3 Ml) Ud) 3 ml IH Q2H PRN PRN Reason: Shortness of Breath Last Admin: 10/27/16 18:48 Dose: 3 ml Arformoterol Tartrate (Brovana) 15 mcg IH [id number] [facility] Last Admin: 10/29/16 07:31 Dose: 15 mcg Budesonide (Pulmicort Respules) 0.25 mg IH [id number] [facility] Last Admin: 10/29/16 07:34 Dose: 0.25 mg Chlordiazepoxide (Librium) 25 mg PO Q8H [facility] PRN Reason: Protocol Last Admin: 10/29/16 20:26 Dose: 25 mg Diphenhydramine HCl (Benadryl) 25 mg PO Q6 PRN PRN Reason: Itching / Pruritus Last Admin: 10/28/16 09:43 Dose: 25 mg Folic Acid (Folic Acid) 1 mg PO DAILY [facility] Last Admin: 10/29/16 10:17 Dose: 1 mg Heparin Sodium (Porcine) (Heparin) 5,000 units SC Q8 [facility] PRN Reason: Protocol Last Admin: 10/29/16 12:59 Dose: 5,000 units Levofloxacin (Levaquin) 500 mg PO DAILY [facility] Stop: 10/31/16 10:01 Last Admin: 10/29/16 10:17 Dose: 500 mg Lorazepam (Ativan) 2 mg IVP Q4H PRN; Protocol PRN Reason: Agitation Last Admin: 10/29/16 17:37 Dose: 2 mg Methylprednisolone (Solu-Medrol) 40 mg IVP DAILY [facility] Multi-Ingredient Cream (Hydrocerin Cream) 0 ea TOP DAILY [facility] Last Admin: 10/29/16 10:49 Dose: 1 appl Multivitamins (Thera Tab) 1 tab PO 0800 [facility] Last Admin: 10/29/16 10:17 Dose: 1 tab Multivitamins/Minerals (Therapeutic-M Tab) 1 tab PO 0800 [facility] Last Admin: 10/29/16 10:17 Dose: 1 tab Nicotine (Nicoderm Cq) 1 patch TD DAILY [facility] Last Admin: 10/29/16 10:14 Dose: 1 patch Pantoprazole Sodium (Protonix Ec Tab) 40 mg PO 0600 [facility] Last Admin: 10/29/16 05:24 Dose: 40 mg Permethrin (Permethrin 5% Cream) 0 gm TOP DAILY [facility] Last Admin: 10/29/16 10:50 Dose: 1 appl Thiamine HCl (Vitamin B1 Tab) 100 mg PO DAILY [facility] Last Admin: 10/29/16 10:15 Dose: 100 mg Tramadol HCl (Ultram) 50 mg PO TID PRN PRN Reason: Pain, severe (8-10) Last Admin: 10/28/16 09:42 Dose: 50 mg - Labs Labs: 10/29/16 07:55 10/29/16 07:55 Attending/Attestation - Attestation I have personally seen and examined this patient.: Yes I have fully participated in the care of the patient.: Yes I have reviewed all pertinent clinical information, including history, physical exam and plan: Yes Notes (Text): 10/29/16 20:59 Patient seen and examined at bedside. Labs, vitals, notes and orders reviewed. continue contact precautions. Continue regimen of systemic steroids, LABA and inhaled steroids.Continue PO antibiotic coverage. Continue alcohol withdrawal treatment with prn ativan and low dose librium. Agree with the plan of care outlined by the resident.
[2016-10-30] MEDS: Albuterol-Ipratrop 3 mg / 0.5 (3 ml) UD IH SCH ×6 (04:44→23:26)
[2016-10-30] MEDS: Pantoprazole 40 mg EC Tab PO SCH (05:56)
[2016-10-30] MEDS: Arformoterol 15 mcg/2 ml Inh Sol IH SCH ×2 (07:30→19:52)
[2016-10-30] MEDS: Budesonide 0.25 mg/2 ml Inhal Susp UD IH SCH ×2 (07:30→19:53)
[2016-10-30 07:54] LABS: HEMOGLOBIN 14.5 gm/dL (12.0-16.0); MEAN CELL VOLUME 101.2 fL (80.0-105.0); MEAN CORPUSCULAR HEMOGLOBIN 34.6 pg (25.0-35.0); MEAN CORPUSCULAR HGB CONC 34.2 g/dl (31.0-37.0); MEAN PLATELET VOLUME 10.6 fl (7.0-11.0); RBC 4.19 10^6/uL (3.5-6.1); RED CELL DISTRIBUTION WIDTH 13.9 % (11.5-14.5); WHITE BLOOD COUNT 11.8 10^3/ul (4.5-11.0)
[2016-10-30] MEDS: Multivitamin Therapeutic Tab PO SCH (08:21)
[2016-10-30] MEDS: Multivitamin With Minerals Tab PO SCH (08:24)
[2016-10-30] MEDS: Hydrocerin(120 gm) TOP SCH (10:00)
[2016-10-30] MEDS: Permethrin 5% Cream(60 gm) TOP SCH (12:00)
[2016-10-30] MEDS: MethylPREDNISolone 40 mg Vial IVP SCH (12:08)
[2016-10-30] MEDS: levoFLOXacin 500 MG TAB PO SCH (12:09)
--- NOTE | 2016-10-30 15:42 | CP.PCM.PN ---
<Darron Marsh - Last Filed: 10/30/16 15:54> Subjective - Date & Time of Evaluation Date of Evaluation: 10/30/16 Time of Evaluation: 15:40 - Subjective Subjective: Patient has been seen and examined. Complains of diaphragmatic/chest pain due to a dry cough. States that breathing has improved. Also states that she is itching less. Denies any fevers, chills, palpitations, or abd pain. Objective - Vital Signs/Intake and Output Vital Signs (last 24 hours): Temp Pulse Resp BP Pulse Ox 98 F 70 22 136/93 H 99 10/30/16 07:51 10/30/16 07:51 10/30/16 07:51 10/30/16 07:51 10/30/16 07:51 Intake and Output: 10/30/16 10/30/16 06:59 18:59 Intake Total 960 1200 Balance 960 1200 - Medications Medications: Current Medications Albuterol/Ipratropium (Duoneb 3 Mg/0.5 Mg (3 Ml) Ud) 3 ml IH Q4 [facility] Last Admin: 10/30/16 15:28 Dose: 3 ml Albuterol/Ipratropium (Duoneb 3 Mg/0.5 Mg (3 Ml) Ud) 3 ml IH Q2H PRN PRN Reason: Shortness of Breath Last Admin: 10/27/16 18:48 Dose: 3 ml Arformoterol Tartrate (Brovana) 15 mcg IH [id number] [facility] Last Admin: 10/30/16 07:30 Dose: 15 mcg Budesonide (Pulmicort Respules) 0.25 mg IH [id number] [facility] Last Admin: 10/30/16 07:30 Dose: 0.25 mg Chlordiazepoxide (Librium) 25 mg PO Q12H JACK PRN Reason: Protocol Diphenhydramine HCl (Benadryl) 25 mg PO Q6 PRN PRN Reason: Itching / Pruritus Last Admin: 10/29/16 21:34 Dose: 25 mg Folic Acid (Folic Acid) 1 mg PO DAILY [facility] Last Admin: 10/30/16 12:09 Dose: 1 mg Heparin Sodium (Porcine) (Heparin) 5,000 units SC Q8 JACK PRN Reason: Protocol Last Admin: 10/30/16 05:56 Dose: 5,000 units Levofloxacin (Levaquin) 500 mg PO DAILY [facility] Stop: 10/31/16 10:01 Last Admin: 10/30/16 12:09 Dose: 500 mg Lorazepam (Ativan) 2 mg IVP Q4H PRN; Protocol PRN Reason: Agitation Last Admin: 10/30/16 12:20 Dose: 2 mg Methylprednisolone (Solu-Medrol) 40 mg IVP DAILY [facility] Last Admin: 10/30/16 12:08 Dose: 40 mg Multi-Ingredient Cream (Hydrocerin Cream) 0 ea TOP DAILY [facility] Last Admin: 10/30/16 10:00 Dose: 1 appl Multivitamins (Thera Tab) 1 tab PO 0800 [facility] Last Admin: 10/30/16 08:21 Dose: 1 tab Multivitamins/Minerals (Therapeutic-M Tab) 1 tab PO 0800 [facility] Last Admin: 10/30/16 08:24 Dose: 1 tab Nicotine (Nicoderm Cq) 1 patch TD DAILY [facility] Last Admin: 10/30/16 12:08 Dose: 1 patch Pantoprazole Sodium (Protonix Ec Tab) 40 mg PO 0600 [facility] Last Admin: 10/30/16 05:56 Dose: 40 mg Permethrin (Permethrin 5% Cream) 0 gm TOP DAILY [facility] Last Admin: 10/30/16 12:00 Dose: 1 appl Thiamine HCl (Vitamin B1 Tab) 100 mg PO DAILY [facility] Last Admin: 10/30/16 12:08 Dose: 100 mg Tramadol HCl (Ultram) 50 mg PO TID PRN PRN Reason: Pain, severe (8-10) Last Admin: 10/28/16 09:42 Dose: 50 mg - Labs Labs: 10/30/16 06:45 10/29/16 07:55 - Constitutional Appears: No Acute Distress - Head Exam Head Exam: ATRAUMATIC, NORMOCEPHALIC - Eye Exam Eye Exam: EOMI - ENT Exam ENT Exam: Mucous Membranes Moist - Respiratory Exam Respiratory Exam: Wheezes. absent: Rales, Rhonchi, Respiratory Distress, Stridor - Cardiovascular Exam Cardiovascular Exam: RRR, +S1, +S2 - GI/Abdominal Exam GI & Abdominal Exam: Soft. absent: Tenderness Assessment and Plan - Assessment and Plan (Free Text) Assessment: 46 y/o F with PMH of COPD, EtOH abuse, untreated Hep C, & Intravenous Drug abuser admitted with COPD exacerbation and scabies (on contact precaution). Will continue to monitor respiratory status. Will plan on discharging tomorrow if respiratory status improves. Plan: 1. COPD exacerbation - Solumedrol tapered 40mg IV one IVP today - Continue scheduled duonebs, brovana, budesonide, levaquin - Continue NC 2L as needed 2. Alcohol withdrawal - Ativan 2 mg q4h prn - Librium 25 q12h scheduled - Thiamine, folic acid, multivitamin - CIWA protocol 3. Scabies - Diphenhydramine PRN for itching/burning - Hydrocerin cream - Permethrin cream - ID consulted PPX Heparin Protonix <Louie Dean - Last Filed: 10/30/16 21:24> Objective - Vital Signs/Intake and Output Vital Signs (last 24 hours): Temp Pulse Resp BP Pulse Ox 97.9 F 87 18 115/76 97 10/30/16 16:38 10/30/16 16:38 10/30/16 16:38 10/30/16 16:38 10/30/16 16:38 Intake and Output: 10/30/16 10/31/16 18:59 06:59 Intake Total 1200 Balance 1200 - Medications Medications: Current Medications Albuterol/Ipratropium (Duoneb 3 Mg/0.5 Mg (3 Ml) Ud) 3 ml IH Q4 JACK Last Admin: 10/30/16 19:52 Dose: 3 ml Albuterol/Ipratropium (Duoneb 3 Mg/0.5 Mg (3 Ml) Ud) 3 ml IH Q2H PRN PRN Reason: Shortness of Breath Last Admin: 10/27/16 18:48 Dose: 3 ml Arformoterol Tartrate (Brovana) 15 mcg IH [id number] JACK Last Admin: 10/30/16 19:52 Dose: 15 mcg Budesonide (Pulmicort Respules) 0.25 mg IH [id number] JACK Last Admin: 10/30/16 19:53 Dose: 0.25 mg Chlordiazepoxide (Librium) 25 mg PO Q12H JACK PRN Reason: Protocol Last Admin: 10/30/16 16:00 Dose: 25 mg Diphenhydramine HCl (Benadryl) 25 mg PO Q6 PRN PRN Reason: Itching / Pruritus Last Admin: 10/29/16 21:34 Dose: 25 mg Folic Acid (Folic Acid) 1 mg PO DAILY [facility] Last Admin: 10/30/16 12:09 Dose: 1 mg Heparin Sodium (Porcine) (Heparin) 5,000 units SC Q8 JACK PRN Reason: Protocol Last Admin: 10/30/16 15:59 Dose: 5,000 units Levofloxacin (Levaquin) 500 mg PO DAILY JACK Stop: 10/31/16 10:01 Last Admin: 10/30/16 12:09 Dose: 500 mg Lorazepam (Ativan) 2 mg IVP Q4H PRN; Protocol PRN Reason: Agitation Last Admin: 10/30/16 16:05 Dose: 2 mg Methylprednisolone (Solu-Medrol) 40 mg IVP DAILY [facility] Last Admin: 10/30/16 12:08 Dose: 40 mg Multi-Ingredient Cream (Hydrocerin Cream) 0 ea TOP DAILY [facility] Last Admin: 10/30/16 10:00 Dose: 1 appl Multivitamins (Thera Tab) 1 tab PO 0800 JACK Last Admin: 10/30/16 08:21 Dose: 1 tab Multivitamins/Minerals (Therapeutic-M Tab) 1 tab PO 0800 JACK Last Admin: 10/30/16 08:24 Dose: 1 tab Nicotine (Nicoderm Cq) 1 patch TD DAILY [facility] Last Admin: 10/30/16 12:08 Dose: 1 patch Pantoprazole Sodium (Protonix Ec Tab) 40 mg PO 0600 [facility] Last Admin: 10/30/16 05:56 Dose: 40 mg Permethrin (Permethrin 5% Cream) 0 gm TOP DAILY [facility] Last Admin: 10/30/16 12:00 Dose: 1 appl Thiamine HCl (Vitamin B1 Tab) 100 mg PO DAILY [facility] Last Admin: 10/30/16 12:08 Dose: 100 mg Tramadol HCl (Ultram) 50 mg PO TID PRN PRN Reason: Pain, severe (8-10) Last Admin: 10/28/16 09:42 Dose: 50 mg - Labs Labs: 10/30/16 06:45 10/29/16 07:55 Attending/Attestation - Attestation I have personally seen and examined this patient.: Yes I have fully participated in the care of the patient.: Yes I have reviewed all pertinent clinical information, including history, physical exam and plan: Yes Notes (Text): 10/30/16 21:23 Patient seen and examined at bedside. She feels her itching has improved and breathing is less labored today. Vitals and labs reviewed, cultures remain negative and we will discontinue levaquin today. Steroids being tapered and she can be switched to PO regimen tomorrow prior to discharge post social work nurse evaluation. Agree with the remainder of the plan outlined by the resident.
[2016-10-31] MEDS: Albuterol-Ipratrop 3 mg / 0.5 (3 ml) UD IH SCH ×4 (03:22→15:00)
[2016-10-31] MEDS: Pantoprazole 40 mg EC Tab PO SCH (05:45)
[2016-10-31 07:22] LABS: HEMOGLOBIN 14.8 gm/dL (12.0-16.0); MEAN CELL VOLUME 100.2 fL (80.0-105.0); MEAN CORPUSCULAR HEMOGLOBIN 33.1 pg (25.0-35.0); MEAN PLATELET VOLUME 10.2 fl (7.0-11.0); RBC 4.47 10^6/uL (3.5-6.1); RED CELL DISTRIBUTION WIDTH 13.8 % (11.5-14.5)
[2016-10-31 07:43] LABS: BLOOD UREA NITROGEN 20 mg/dL (7-21); CALCIUM 8.7 mg/dL (8.4-10.5); GFR AFRICAN-AMERICAN > 60; GFR NON-AFRICAN AMERICAN > 60
[2016-10-31 07:49] VITALS: RESP 22
[2016-10-31] MEDS: Multivitamin With Minerals Tab PO SCH (09:32)
[2016-10-31] MEDS: Multivitamin Therapeutic Tab PO SCH (09:33)
[2016-10-31] MEDS: MethylPREDNISolone 40 mg Vial IVP SCH (09:33)
[2016-10-31] MEDS: Arformoterol 15 mcg/2 ml Inh Sol IH SCH (10:58)
[2016-10-31] MEDS: Budesonide 0.25 mg/2 ml Inhal Susp UD IH SCH (10:58)
[2016-10-31] MEDS: Hydrocerin(120 gm) TOP SCH (11:23)
[2016-10-31] MEDS: Permethrin 5% Cream(60 gm) TOP SCH (11:23)
--- NOTE | 2016-10-31 14:51 | CP.PCM.PN ---
Subjective - Date & Time of Evaluation Date of Evaluation: 10/31/16 Time of Evaluation: 11:50 - Subjective Subjective: Breathing better, no fevers overnight, not in distress. Objective - Vital Signs/Intake and Output Vital Signs (last 24 hours): Temp Pulse Resp BP Pulse Ox 97.9 F 94 H 22 117/83 99 10/31/16 07:48 10/31/16 07:48 10/31/16 07:48 10/31/16 07:48 10/31/16 07:48 Intake and Output: 10/31/16 10/31/16 06:59 18:59 Intake Total 720 Balance 720 - Medications Medications: Current Medications Albuterol/Ipratropium (Duoneb 3 Mg/0.5 Mg (3 Ml) Ud) 3 ml IH Q4 JACK Last Admin: 10/31/16 07:25 Dose: Not Given Albuterol/Ipratropium (Duoneb 3 Mg/0.5 Mg (3 Ml) Ud) 3 ml IH Q2H PRN PRN Reason: Shortness of Breath Last Admin: 10/27/16 18:48 Dose: 3 ml Arformoterol Tartrate (Brovana) 15 mcg IH [id number] JACK Last Admin: 10/30/16 19:52 Dose: 15 mcg Budesonide (Pulmicort Respules) 0.25 mg IH [id number] JACK Last Admin: 10/30/16 19:53 Dose: 0.25 mg Chlordiazepoxide (Librium) 25 mg PO Q12H JACK PRN Reason: Protocol Last Admin: 10/31/16 05:45 Dose: 25 mg Diphenhydramine HCl (Benadryl) 25 mg PO Q6 PRN PRN Reason: Itching / Pruritus Last Admin: 10/30/16 21:50 Dose: 25 mg Folic Acid (Folic Acid) 1 mg PO DAILY [facility] Last Admin: 10/30/16 12:09 Dose: 1 mg Heparin Sodium (Porcine) (Heparin) 5,000 units SC Q8 JACK PRN Reason: Protocol Last Admin: 10/31/16 05:46 Dose: 5,000 units Lorazepam (Ativan) 2 mg IVP Q4H PRN; Protocol PRN Reason: Agitation Last Admin: 10/31/16 06:14 Dose: 2 mg Methylprednisolone (Solu-Medrol) 40 mg IVP DAILY [facility] Last Admin: 10/30/16 12:08 Dose: 40 mg Multi-Ingredient Cream (Hydrocerin Cream) 0 ea TOP DAILY [facility] Last Admin: 10/30/16 10:00 Dose: 1 appl Multivitamins (Thera Tab) 1 tab PO 0800 [facility] Last Admin: 10/30/16 08:21 Dose: 1 tab Multivitamins/Minerals (Therapeutic-M Tab) 1 tab PO 0800 [facility] Last Admin: 10/30/16 08:24 Dose: 1 tab Nicotine (Nicoderm Cq) 1 patch TD DAILY [facility] Last Admin: 10/30/16 12:08 Dose: 1 patch Pantoprazole Sodium (Protonix Ec Tab) 40 mg PO 0600 [facility] Last Admin: 10/31/16 05:45 Dose: 40 mg Permethrin (Permethrin 5% Cream) 0 gm TOP DAILY [facility] Last Admin: 10/30/16 12:00 Dose: 1 appl Thiamine HCl (Vitamin B1 Tab) 100 mg PO DAILY [facility] Last Admin: 10/30/16 12:08 Dose: 100 mg Tramadol HCl (Ultram) 50 mg PO TID PRN PRN Reason: Pain, severe (8-10) Last Admin: 10/28/16 09:42 Dose: 50 mg - Labs Labs: 10/31/16 06:45 10/31/16 06:45 - Constitutional Appears: Non-toxic, No Acute Distress - Head Exam Head Exam: NORMAL INSPECTION - Neck Exam Neck Exam: absent: Meningismus - Respiratory Exam Respiratory Exam: Decreased Breath Sounds - Cardiovascular Exam Cardiovascular Exam: +S1, +S2 - GI/Abdominal Exam GI & Abdominal Exam: Soft. absent: Tenderness Assessment and Plan - Assessment and Plan (Free Text) Plan: Assessment Consider erythema nodosum on the right leg in a patient with history of Hepatitis C, R/O scabies on both lower extremities S/P treatment with PErmetrhin cream Systemic Inflammatory Response Syndrome probably from COPD exacerabtion, S/P treatment COPD Hepatitis C, chronic and active history of umbilical hernia polysubstance abuse with heavy alcohol use and active IV drug user (heroin) Plan HCV RNA PCR is about 940 thousand, follow up genotype; HIV 4th generation test is negative; patient should have outpatient follow up with an Hepatitis C specialist for further work up and treatment options
[2016-10-31 17:30] VITALS: BP 105/72; PULSE 112; TEMP 98.9; O2SAT 93
--- NOTE | 2016-10-31 22:16 | CP.PCM.DIS ---
<ALAYNA WARE - Last Filed: 10/31/16 21:46> Provider - Provider Date of Admission: 10/27/16 10:26 Attending physician: Karolina Watson MD Primary care physician: NO PRIMARY CARE PROVIDER Time Spent in preparation of Discharge (in minutes): 45 Hospital Course - Lab Results Lab Results: Most Recent Lab Values WBC 18.0 10^3/ul (4.5-11.0) H D 10/31/16 06:45 RBC 4.47 10^6/uL (3.5-6.1) 10/31/16 06:45 Hgb 14.8 gm/dL (12.0-16.0) 10/31/16 06:45 Hct 44.8 % (36.0-48.0) 10/31/16 06:45 MCV 100.2 fL (80.0-105.0) 10/31/16 06:45 MCH 33.1 pg (25.0-35.0) 10/31/16 06:45 MCHC 33.0 g/dl (31.0-37.0) 10/31/16 06:45 RDW 13.8 % (11.5-14.5) 10/31/16 06:45 Plt Count 358 10^3/uL (120.0-450.0) 10/31/16 06:45 MPV 10.2 fl (7.0-11.0) 10/31/16 06:45 Gran % 81.5 % (50.0-68.0) H 10/29/16 07:55 Lymph % (Auto) 10.8 % (22.0-35.0) L 10/29/16 07:55 Glades % (Auto) 7.6 % (1.0-6.0) H 10/29/16 07:55 Eos % (Auto) 0.0 % (1.5-5.0) L 10/29/16 07:55 Baso % (Auto) 0.1 % (0.0-3.0) 10/29/16 07:55 Gran # 11.87 (1.4-6.5) H 10/29/16 07:55 Lymph # 1.6 (1.2-3.4) 10/29/16 07:55 Glades # 1.1 (0.1-0.6) H 10/29/16 07:55 Eos # 0.0 (0.0-0.7) 10/29/16 07:55 Baso # 0.01 K/mm3 (0.0-2.0) 10/29/16 07:55 Sodium 135 mmol/L (132-148) 10/31/16 06:45 Potassium 3.8 mmol/L (3.6-5.0) 10/31/16 06:45 Chloride 98 mmol/L (98-107) 10/31/16 06:45 Carbon Dioxide 30 mmol/L (21-33) 10/31/16 06:45 Anion Gap 11 (10-20) 10/31/16 06:45 BUN 20 mg/dL (7-21) 10/31/16 06:45 Creatinine 0.6 mg/dL (0.5-1.4) 10/31/16 06:45 Est GFR ( Amer) > 60 10/31/16 06:45 Est GFR (Non-Af Amer) > 60 10/31/16 06:45 Random Glucose 98 mg/dL (70-110) 10/31/16 06:45 Calcium 8.7 mg/dL (8.4-10.5) 10/31/16 06:45 Total Bilirubin 0.4 mg/dL (0.2-1.3) 10/29/16 07:55 AST 36 U/L (15-39) 10/29/16 07:55 ALT 52 U/L (7-56) 10/29/16 07:55 Alkaline Phosphatase 73 U/L (38-133) 10/29/16 07:55 Troponin I < 0.01 ng/mL 10/26/16 15:15 Total Protein 5.9 g/dL (5.8-8.3) 10/29/16 07:55 Albumin 3.2 g/dL (3.0-4.8) 10/29/16 07:55 Globulin 2.8 gm/dL 10/29/16 07:55 Albumin/Globulin Ratio 1.1 (1.1-1.8) 10/29/16 07:55 Urine Color Yellow (YELLOW) 10/26/16 22:49 Urine Appearance Sl cloudy (CLEAR) 10/26/16 22:49 Urine pH 6.0 (4.7-8.0) 10/26/16 22:49 Ur Specific Hillman 1.025 (1.005-1.035) 10/26/16 22:49 Urine Protein Negative mg/dL (<30 mg/dL) 10/26/16 22:49 Urine Glucose (UA) 250 mg/dL (NEGATIVE) H 10/26/16 22:49 Urine Ketones Negative mg/dL (NEGATIVE) 10/26/16 22:49 Urine Blood Large (NEGATIVE) H 10/26/16 22:49 Urine Nitrate Negative (NEGATIVE) 10/26/16 22:49 Urine Bilirubin Negative (NEGATIVE) 10/26/16 22:49 Urine Urobilinogen 0.2 E.U./dL (<1 E.U./dL) 10/26/16 22:49 Ur Leukocyte Esterase Negative Erik/uL (NEGATIVE) 10/26/16 22:49 Urine RBC 5 - 10 /hpf (0-2) 10/26/16 22:49 Urine WBC 5 - 10 /hpf (0-6) 10/26/16 22:49 Ur Epithelial Cells 4 - 5 /hpf (0-5) 10/26/16 22:49 Urine Bacteria Few (NEG) 10/26/16 22:49 Urine Opiates Screen Negative (NEGATIVE) 10/26/16 08:00 Urine Methadone Screen Negative (NEGATIVE) 10/26/16 08:00 Ur Barbiturates Screen Negative (NEGATIVE) 10/26/16 08:00 Ur Phencyclidine Scrn Negative (NEGATIVE) 10/26/16 08:00 Ur Amphetamines Screen Negative (NEGATIVE) 10/26/16 08:00 U Benzodiazepines Scrn Negative (NEGATIVE) 10/26/16 08:00 U Oth Cocaine Metabols Negative (NEGATIVE) 10/26/16 08:00 U Cannabinoids Screen Negative (NEGATIVE) 10/26/16 08:00 Alcohol, Quantitative 153 mg/dL (0-10) H 10/25/16 22:15 HCV RNA (PCR) IUs/ml [id number] IU/mL (<15) H 10/26/16 11:32 HCV RNA PCR log IUs/ml 5.97 Log IU/mL (<1.18) H 10/26/16 11:32 HIV 1&2 Ag/Ab, 4th Gen Nonreactive (Nonreactive) 10/26/16 11:00 - Hospital Course Hospital Course: Ms. Chambers is a 46yo F with h/o COPD, IVDA, ETOH abuse, Hep C (known and untreated) and an umbilical hernia who is homeless presented to [facility] on with SOB, cough, wheezing. She uses an albuterol inhaler normally but ran out recently, and hasn't been using anything. Pt denies fevers, chills. Pt also complains of diffuse pruritic rash on both her legs and abdomen which have a burning quality. In ED, pt found to be hypokalemic in ED, and was repleted. Utox was negative, but ETOH level was 153. CXR showed no new consolidations or pleural effusions. EKG showed NSR. Pt was started on duonebs, solumedrol and levoquin and was transferred to the medicine floors for further workup and management. On the floors, the patient's breathing had mildly improved but wheezing was still present. Librium and Ativan were added for ETOH withdrawal, as well as banana bag. Patient was removed off of the NC O2 and was saturating well on RA. Steroids were tapered down. ID was consulted. The patient also received Hydrocerin and Permethrin 5% creams to apply to her legs. Her itchiness was managed with Benadryl PRN. Blood and urine cultures were negative. Clinically, the patient was improving and the leukocytosis that was present was likely due to the patient's steroids. This morning, the patient had no complaints, and denied wheezing and stated that her rash has improved significantly. The patient denied cp/palpitations, n/ v/d, headaches, fevers or chills. The patient is being discharged on Levaquin ( 3days), Medrol Dose Pack, and albuterol pump as well as multivitamins, folic acid/thiamine. - Date & Time of H&P Date of H&P: 10/26/16 Time of H&P: 03:45 Discharge Exam - Head Exam Head Exam: ATRAUMATIC, NORMAL INSPECTION, NORMOCEPHALIC - Eye Exam Eye Exam: EOMI, Normal appearance, PERRL - ENT Exam ENT Exam: Mucous Membranes Moist, Normal Exam - Respiratory Exam Respiratory Exam: Clear to PA & Lateral, NORMAL BREATHING PATTERN. absent: Accessory Muscle Use, Chest Wall Tenderness, Rales, Rhonchi, Wheezes, Respiratory Distress, Stridor - Cardiovascular Exam Cardiovascular Exam: REGULAR RHYTHM, RRR, +S1, +S2. absent: Gallop, Irregular Rhythm, JVD, Rubs, Systolic Murmur - GI/Abdominal Exam GI & Abdominal Exam: Hernia (umbilical hernia not changed from prior exam), Normal Bowel Sounds, Soft, Unremarkable. absent: Distended, Tenderness - Neurological Exam Neurological exam: Alert, CN II-XII Intact, Normal Gait, Oriented x3 - Psychiatric Exam Psychiatric exam: Normal Affect, Normal Mood - Skin Skin Exam: Normal Color, Warm Discharge Plan - Discharge Medications Prescriptions: Albuterol HFA [Ventolin HFA 90 mcg/actuation (8 g)] 2 puff IH [id number] #2 puff Folic Acid 1 mg PO DAILY #7 tab levoFLOXacin [Levaquin] 500 mg PO DAILY #3 tab Methylprednisolone [Medrol Dose Pack (21 tabs)] 4 mg PO DAILY #21 mg Multimineral/Multivitamin [Therapeutic-M Tab] 1 tab PO 0800 #7 tab Thiamine [Vitamin B1 Tab] 100 mg PO DAILY #7 tab - Follow Up Plan Condition: STABLE Disposition: HOME/ ROUTINE Instructions: Cellulitis (DC), Scabies (DC), COPD (Chronic Obstructive Pulmonary Disease) (DC), Alcohol Intoxication (DC), Abuse of Alcohol (DC), Acute Nausea and Vomiting (DC) Additional Instructions: Ms. Chambers, You have been treated for a complicated course of asthma (chronic obstructive pulmonary disease) and a rash on your legs. 1. Please followup at our clinic (you were provided with a card with a number to call and set up an appointment) within ONE WEEK. You should discuss your asthma with them as well as your history of Hepatitis C infection. 2. Meds: Take the Medrol dose pack as explained on the package Take Levaquin once daily for three days Take your albuterol pump whenever you feel short of breath Take your multivitamins that are provided daily As we discussed, it is important for you to avoid smoking, drinking ETOH and doing any drugs so as to not aggravate your condition. If you feel severely short of breath, feel chest pain or palpitations, please go to the ER for further workup. Otherwise, please make an appointment at our clinic and come in for your free checkup within 1 week of discharge. Thank you Alayna Ware PGY1 Dr. Watson, Attending Physician Referrals: PCP,NO [Primary Care Provider] - <Karolina Watson - Last Filed: 11/01/16 06:51> Provider - Provider Date of Admission: 10/27/16 10:26 Attending physician: Karolina Watson MD Primary care physician: NO PRIMARY CARE PROVIDER Hospital Course - Lab Results Lab Results: Most Recent Lab Values WBC 18.0 10^3/ul (4.5-11.0) H D 10/31/16 06:45 RBC 4.47 10^6/uL (3.5-6.1) 10/31/16 06:45 Hgb 14.8 gm/dL (12.0-16.0) 10/31/16 06:45 Hct 44.8 % (36.0-48.0) 10/31/16 06:45 MCV 100.2 fL (80.0-105.0) 10/31/16 06:45 MCH 33.1 pg (25.0-35.0) 10/31/16 06:45 MCHC 33.0 g/dl (31.0-37.0) 10/31/16 06:45 RDW 13.8 % (11.5-14.5) 10/31/16 06:45 Plt Count 358 10^3/uL (120.0-450.0) 10/31/16 06:45 MPV 10.2 fl (7.0-11.0) 10/31/16 06:45 Gran % 81.5 % (50.0-68.0) H 10/29/16 07:55 Lymph % (Auto) 10.8 % (22.0-35.0) L 10/29/16 07:55 Glades % (Auto) 7.6 % (1.0-6.0) H 10/29/16 07:55 Eos % (Auto) 0.0 % (1.5-5.0) L 10/29/16 07:55 Baso % (Auto) 0.1 % (0.0-3.0) 10/29/16 07:55 Gran # 11.87 (1.4-6.5) H 10/29/16 07:55 Lymph # 1.6 (1.2-3.4) 10/29/16 07:55 Glades # 1.1 (0.1-0.6) H 10/29/16 07:55 Eos # 0.0 (0.0-0.7) 10/29/16 07:55 Baso # 0.01 K/mm3 (0.0-2.0) 10/29/16 07:55 Sodium 135 mmol/L (132-148) 10/31/16 06:45 Potassium 3.8 mmol/L (3.6-5.0) 10/31/16 06:45 Chloride 98 mmol/L (98-107) 10/31/16 06:45 Carbon Dioxide 30 mmol/L (21-33) 10/31/16 06:45 Anion Gap 11 (10-20) 10/31/16 06:45 BUN 20 mg/dL (7-21) 10/31/16 06:45 Creatinine 0.6 mg/dL (0.5-1.4) 10/31/16 06:45 Est GFR ( Amer) > 60 10/31/16 06:45 Est GFR (Non-Af Amer) > 60 10/31/16 06:45 Random Glucose 98 mg/dL (70-110) 10/31/16 06:45 Calcium 8.7 mg/dL (8.4-10.5) 10/31/16 06:45 Total Bilirubin 0.4 mg/dL (0.2-1.3) 10/29/16 07:55 AST 36 U/L (15-39) 10/29/16 07:55 ALT 52 U/L (7-56) 10/29/16 07:55 Alkaline Phosphatase 73 U/L (38-133) 10/29/16 07:55 Troponin I < 0.01 ng/mL 10/26/16 15:15 Total Protein 5.9 g/dL (5.8-8.3) 10/29/16 07:55 Albumin 3.2 g/dL (3.0-4.8) 10/29/16 07:55 Globulin 2.8 gm/dL 10/29/16 07:55 Albumin/Globulin Ratio 1.1 (1.1-1.8) 10/29/16 07:55 Urine Color Yellow (YELLOW) 10/26/16 22:49 Urine Appearance Sl cloudy (CLEAR) 10/26/16 22:49 Urine pH 6.0 (4.7-8.0) 10/26/16 22:49 Ur Specific Hillman 1.025 (1.005-1.035) 10/26/16 22:49 Urine Protein Negative mg/dL (<30 mg/dL) 10/26/16 22:49 Urine Glucose (UA) 250 mg/dL (NEGATIVE) H 10/26/16 22:49 Urine Ketones Negative mg/dL (NEGATIVE) 10/26/16 22:49 Urine Blood Large (NEGATIVE) H 10/26/16 22:49 Urine Nitrate Negative (NEGATIVE) 10/26/16 22:49 Urine Bilirubin Negative (NEGATIVE) 10/26/16 22:49 Urine Urobilinogen 0.2 E.U./dL (<1 E.U./dL) 07 22:49 Ur Leukocyte Esterase Negative Erik/uL (NEGATIVE) 10/26/16 22:49 Urine RBC 5 - 10 /hpf (0-2) 10/26/16 22:49 Urine WBC 5 - 10 /hpf (0-6) 07 22:49 Ur Epithelial Cells 4 - 5 /hpf (0-5) 10/26/16 22:49 Urine Bacteria Few (NEG) 10/26/16 22:49 Urine Opiates Screen Negative (NEGATIVE) 10/26/16 08:00 Urine Methadone Screen Negative (NEGATIVE) 10/26/16 08:00 Ur Barbiturates Screen Negative (NEGATIVE) 10/26/16 08:00 Ur Phencyclidine Scrn Negative (NEGATIVE) 10/26/16 08:00 Ur Amphetamines Screen Negative (NEGATIVE) 10/26/16 08:00 U Benzodiazepines Scrn Negative (NEGATIVE) 10/26/16 08:00 U Oth Cocaine Metabols Negative (NEGATIVE) 10/26/16 08:00 U Cannabinoids Screen Negative (NEGATIVE) 10/26/16 08:00 Alcohol, Quantitative 153 mg/dL (0-10) H 10/25/16 22:15 HCV RNA (PCR) IUs/ml 505912 IU/mL (<15) H 10/26/16 11:32 HCV RNA PCR log IUs/ml 5.97 Log IU/mL (<1.18) H 10/26/16 11:32 HIV 1&2 Ag/Ab, 4th Gen Nonreactive (Nonreactive) 10/26/16 11:00 Attending/Attestation - Attestation I have personally seen and examined this patient.: Yes I have fully participated in the care of the patient.: Yes I have reviewed all pertinent clinical information, including history, physical exam and plan: Yes Notes (Text): 10/31/16 46 year old female with past medical history of COPD, chronic ETOH abuse, substance abuse and hepatitis C who presented with COPD exacerbation and alcohol withdrawal. Her symptoms improved with duonebs, antibiotics and iv steroids. She was also on tapering librium and ativan prn. She was counselled on alcohol abstinence and on risks of continued substance abuse. She was also treated for possible scabies. She was given referral. She will be discharged today on tapering steroids. Follow up with pmd and with [facility] hepatitis clinic. Counselled on alcohol abstinence. Counselled on risks of continued substance abuse. Karolina Watson MD Hospitalist.
--- NOTE | 2016-11-03 12:48 | CARD ---
APPROVED REPORT EKG Measurement Heart [id number] <Conclusion> Sinus rhythm with short [place] Otherwise normal ECG
== END 2016-10-31 18:07 | disposition home or self-care (01) | DRG 541 ==
LOC: ED 21:51 → ERH 10-26 00:18 → 2RSO 10-26 02:21 → OBSVTOIN 10-27 10:26 → 5RSO 10-27 15:16
PROVIDERS: ADMIT Hospitalist; ATTEND Internal Medicine
DX: J44.1 Chronic obstructive pulmonary disease with (acute) exacerbation (principal); R65.10 Systemic inflammatory response syndrome (SIRS) of non-infectious origin without acute organ dysfunction; F10.239 Alcohol dependence with withdrawal, unspecified; L03.90 Cellulitis, unspecified; B86 Scabies; F11.10 Opioid abuse, uncomplicated; B18.2 Chronic viral hepatitis C; E87.6 Hypokalemia; Z59.0 Homelessness; L29.9 Pruritus, unspecified; Z72.0 Tobacco use; Z90.49 Acquired absence of other specified parts of digestive tract; K42.9 Umbilical hernia without obstruction or gangrene; R40.2412 Glasgow coma scale score 13-15, at arrival to emergency department; R00.0 Tachycardia, unspecified; E66.9 Obesity, unspecified; F10.229 Alcohol dependence with intoxication, unspecified; Z80.9 Family history of malignant neoplasm, unspecified; Z86.19 Personal history of other infectious and parasitic diseases; F41.9 Anxiety disorder, unspecified; R21 Rash and other nonspecific skin eruption

== ENCOUNTER 2016-11-01 20:22 | Emergency (ER) | payer MEDICAID ==
[2016-11-01 20:22] VITALS: BMI 32.8
[2016-11-01 20:44] VITALS: TEMP 97.4
[2016-11-01] MEDS ORDERED: Naloxone 0.4 mg/ml Inj (Adult) IVP STA (21:03)
[2016-11-01] MEDS: Albuterol-Ipratrop 3 mg / 0.5 (3 ml) UD IH SCH ×2 (21:26→22:12)
[2016-11-01 22:11] LABS: HEMOGLOBIN 14.3 gm/dL (12.0-16.0); MEAN CORPUSCULAR HEMOGLOBIN 33.1 pg (25.0-35.0); MEAN CORPUSCULAR HGB CONC 33.1 g/dl (31.0-37.0); PLATELET COUNT 355 10^3/uL (120.0-450.0); RBC 4.32 10^6/uL (3.5-6.1); RED CELL DISTRIBUTION WIDTH 13.6 % (11.5-14.5); WHITE BLOOD COUNT 22.1 10^3/ul (4.5-11.0)
[2016-11-01 22:14] VITALS: BP 109/65; PULSE 105; RESP 22; O2SAT 96
[2016-11-01 22:14] LABS: VENOUS BLOOD GAS BASE EXCESS 1.4 mmol/L (0.0-2.0); VENOUS BLOOD GAS PO2 164 mm/Hg (30-55); VENOUS BLOOD PH 7.34 (7.32-7.43)
[2016-11-01 22:23] LABS: ALB/GLOB RATIO 1.2 (1.1-1.8); ALBUMIN 3.6 g/dL (3.0-4.8); ALT/SGPT 76 U/L (7-56); AST/SGOT 77 U/L (15-39); BLOOD UREA NITROGEN 23 mg/dL (7-21); CALCIUM 8.7 mg/dL (8.4-10.5); GFR AFRICAN-AMERICAN > 60; GFR NON-AFRICAN AMERICAN > 60
[2016-11-01 22:33] LABS: B-TYPE NATRIURETIC PEPTIDE 39.8 pg/mL (0-450)
[2016-11-01 22:36] LABS: TROPONIN I < 0.01 ng/mL
--- NOTE | 2016-11-01 22:39 | ED PDOC ---
Arrival/HPI - General Chief Complaint: Shortness Of Breath Time Seen by Provider: 11/01/16 20:36 Historian: Patient - History of Present Illness Narrative History of Present Illness (Text): 11/01/16 20:40 Fani Chambers is a 46 year old female, with a history of COPD, and IV heroin use, presents to the emergency department complaining of shortness of breath and wheezing since earlier today. She was discharged from the hospital yesterday after being admitted for similar complaints. Admits to drinking alcohol and smoking today. Denies any fever, chills, headache, dizziness, chest pain, nausea, vomiting, diarrhea, urinary symptoms, or any other complaints at this time. Time/Duration: Other (since today morning ) Symptom Course: Unchanged Severity Level: Mild Activities at Onset: Light Context: Home Past Medical History - Provider Review Nursing Documentation Reviewed: Yes - Infectious Disease Hx of Infectious Diseases: None - Tetanus Immunization Tetanus Immunization: Unknown - Cardiac Hx Cardiac Disorders: No - Pulmonary Hx Respiratory Disorders: Yes Hx Asthma: Yes Hx Bronchitis: Yes Hx Chronic Obstructive Pulmonary Disease (COPD): Yes Hx Emphysema: Yes Other/Comment: pneumothorax with lung surgery - Neurological Hx Neurological Disorder: No Hx Alzheimer's Disease: No HX Cerebrovascular Accident: No Hx Dementia: No Hx Dizziness: No Hx Meningitis: No Hx Migraine: No Hx Parkinson's Disease: No Hx Seizures: No Hx Transient Ischemic Attacks (TIA): No - HEENT Hx HEENT Disorder: No - Renal Hx Renal Disorder: No - Endocrine/Metabolic Hx Endocrine Disorders: Yes - Hematological/Oncological Hx Blood Disorders: Yes Hx Hepatitis C: Yes - Integumentary Hx Dermatological Disorder: Yes (Multiple scabs, scratches covering body) - Musculoskeletal/Rheumatological Hx Musculoskeletal Disorders: No Hx Falls: Yes - Gastrointestinal Hx Gastrointestinal Disorders: No Other/Comment: Umbilical hernia present - Genitourinary/Gynecological Hx Genitourinary Disorders: No Hx Sexually Transmitted Diseases: Yes (trichomonas) - Psychiatric Hx Psychophysiologic Disorder: Yes Hx Anxiety: Yes Hx Substance Use: Yes (heroin) Other/Comment: substance abuse, etoh - Surgical History Hx Appendectomy: Yes Other/Comment: tonsillectomy, "lung surgery" - Anesthesia Hx Anesthesia: Yes Hx Anesthesia Reactions: No Hx Malignant Hyperthermia: No - Suicidal Assessment Feels Threatened In Home Enviroment: No Family/Social History - Physician Review Nursing Documentation Reviewed: Yes Family/Social History: No Known Family HX Smoking Status: Heavy Smoker > 10 Cigarettes Daily Hx Alcohol Use: Yes (drinks "as much as (she) can afford") Hx Substance Use: Yes (heroin) Substance used: HEROINE Hx Substance Use Treatment: Yes Allergies/Home Meds Allergies/Adverse Reactions: Allergies No Known Allergies Allergy (Verified 10/25/16 21:57) Review of Systems - Physician Review All systems were reviewed & negative as marked: Yes - Review of Systems Constitutional: Normal. absent: Fatigue, Fevers Respiratory: SOB, Wheezing. absent: Cough, Sputum Cardiovascular: Normal. absent: Chest Pain, Palpitations Gastrointestinal: Normal. absent: Abdominal Pain, Diarrhea, Nausea, Vomiting Genitourinary Female: Normal Neurological: Normal. absent: Headache, Dizziness Psychiatric: Normal Physical Exam Vital Signs Reviewed: Yes Vital Signs Temp Pulse Resp BP Pulse Ox 11/01/16 22:13 105 H 22 109/65 96 11/01/16 20:43 97.4 F L 108 H 24 102/66 94 L 11/01/16 20:40 14 99 Temperature: Afebrile Blood Pressure: Normal Pulse: Tachycardic Respiratory Rate: Normal Appearance: Positive for: Well-Appearing, Non-Toxic, Comfortable Pain Distress: None Mental Status: Positive for: Alert and Oriented X 3 - Systems Exam Head: Present: Atraumatic, Normocephalic Pupils: Present: PERRL Conjunctiva: Present: Normal Mouth: Present: Moist Mucous Membranes Respiratory/Chest: Present: Wheezes. No: Respiratory Distress, Accessory Muscle Use Cardiovascular: Present: Regular Rate and Rhythm, Normal S1, S2. No: Murmurs Abdomen: Present: Normal Bowel Sounds. No: Tenderness, Distention, Peritoneal Signs Upper Extremity: Present: Normal Inspection. No: Cyanosis, Edema Lower Extremity: Present: Normal Inspection. No: Edema Neurological: Present: GCS=15, CN II-XII Intact, Speech Normal, Motor Func Grossly Intact, Normal Sensory Function Skin: Present: Warm, Dry, Normal Color. No: Rashes Psychiatric: Present: Alert, Oriented x 3, Normal Insight, Normal Concentration Medical Decision Making ED Course and Treatment: 11/01/16 20:40 Impression: A 46 year old female who presents to the emergency department complaining of shortness of breath and wheezing since earlier today. Plan: -- EKG -- Labs, cardiac enzymes -- Duoneb -- Chest X-ray -- Narcan -- Blood Culture -- Reassess and disposition Progress Notes: 11/01/16 22:40 EKG reviewed by me: Sinus Tachycardia @ 110 bpm. Normal [place]. Normal interval. 11/01/16 23:42 On re-evaluation, patient feels better and is in no acute distress. I have discussed the results and plan with the patient, who expresses understanding. Patient in agreement with plan to be discharged home. Patient is stable for discharge. Patient was instructed to follow up with physician or return if symptoms worsen or new concerning symptoms arise. - Lab Interpretations Microbiology Results: Microbiology Results 11/01/16 21:30 Blood-Venous Blood Culture - Preliminary NO GROWTH AFTER 24 HOURS 11/01/16 21:30 Blood-Venous Blood Culture - Preliminary NO GROWTH AFTER 24 HOURS Lab Results: 11/01/16 21:30 11/01/16 21:30 Lab Results 11/01/16 22:00: pO2 164 H, VBG pH 7.34, VBG pCO2 52.0, VBG HCO3 28.1 H, VBG Total CO2 29.7 H, VBG O2 Sat (Calc) 99.9 H, VBG Base Excess 1.4, VBG Potassium 4.0, Glucose 136 H, Lactate 1.5, FiO2 21.0, Sodium 134.0, Chloride 98.0, Venous Blood Potassium 4.0 11/01/16 21:30: Alcohol, Quantitative 143 H 11/01/16 21:30: Sodium 134, Potassium 4.0, Chloride 95 L, Carbon Dioxide 26, Anion Gap 17, BUN 23 H, Creatinine 0.8, Est GFR ( Amer) > 60, Est GFR ( Non-Af Amer) > 60, Random Glucose 132 H, Calcium 8.7, Total Bilirubin 0.6, AST 77 H, ALT 76 H, Alkaline Phosphatase 92, Lactate Dehydrogenase 852 H, Total Creatine Kinase 80, Troponin I < 0.01, NT-Pro-B Natriuret Pep 39.8, Total Protein 6.6, Albumin 3.6, Globulin 3.0, Albumin/Globulin Ratio 1.2 11/01/16 21:30: WBC 22.1 H D, RBC 4.32, Hgb 14.3, Hct 43.2, MCV 100.0, MCH 33.1 , MCHC 33.1, RDW 13.6, Plt Count 355, MPV 10.0, Gran % Atmospheric Scientist, Lymph % (Auto) Atmospheric Scientist, [place] % (Auto) Atmospheric Scientist, Eos % (Auto) Atmospheric Scientist, Baso % (Auto) Atmospheric Scientist, Gran # Atmospheric Scientist, Lymph # Atmospheric Scientist, [place] # Atmospheric Scientist, Eos # Atmospheric Scientist, Baso # Atmospheric Scientist, Neutrophils % (Manual) 81 H, Band Neutrophils % 3 H, Lymphocytes % (Manual) 8 L, Monocytes % (Manual) 4, Eosinophils % (Manual) 3, Myelocytes % 1, Platelet Evaluation Normal I have reviewed the lab results: Yes - EKG Interpretation Interpreted by ED Physician: Yes Type: 12 lead EKG - Medication Orders Current Medication Orders: Discontinued Medications Albuterol/Ipratropium (Duoneb 3 Mg/0.5 Mg (3 Ml) Ud) 3 ml IH Q15M JACK Stop: 11/01/16 21:46 Last Admin: 11/01/16 22:12 Dose: 3 ml Naloxone HCl (Narcan) 0.4 mg IVP STAT STA Stop: 11/01/16 21:04 Last Admin: 11/01/16 21:27 Dose: 0.4 mg - Scribe Statement The provider has reviewed the documentation as recorded by the Jc Foy Provider Attestation: Provider Scribe Attestation: All medical record entries made by the Rosettaibclive were at my direction and personally dictated by me. I have reviewed the chart and agree that the record accurately reflects my personal performance of the history, physical exam, medical decision making, and the department course for this patient. I have also personally directed, reviewed, and agree with the discharge instructions and disposition. Disposition/Present on Arrival - Present on Arrival Any Indicators Present on Arrival: No History of DVT/PE: No History of Uncontrolled Diabetes: No Urinary Catheter: No History of Decub. Ulcer: No History Surgical Site Infection Following: None - Disposition Have Diagnosis and Disposition been Completed?: Yes Diagnosis: Chronic obstructive lung disease Disposition: HOME/ ROUTINE Disposition Time: 23:40 Condition: GOOD Discharge Instructions (ExitCare): COPD (Chronic Obstructive Pulmonary Disease ) (ED)
[2016-11-02 00:21] LABS: BAND 3 % (0-2); EOSINOPHIL 3 % (0.0-3.0); LYMPHOCYTE 8 % (22.0-35.0); MONOCYTE 4 % (1.0-6.0); MYELOCYTE 1 %; NEUTROPHIL 81 % (50.0-70.0); PLATELET ESTIMATE NORMAL (NORMAL)
--- NOTE | 2016-11-02 12:37 | CARD ---
APPROVED REPORT EKG Measurement Heart [id number] <Conclusion> Sinus tachycardia Otherwise normal ECG
== END 2016-11-01 23:43 | disposition home or self-care (01) ==
LOC: ED 20:22
DX: J44.9 Chronic obstructive pulmonary disease, unspecified (principal); F17.210 Nicotine dependence, cigarettes, uncomplicated; F11.10 Opioid abuse, uncomplicated
CPT/HCPCS: 80053; 80320; 82550; 82803; 83615; 83880; 84484; 85025; 87040; 93005; 96374; 99285; J2310

== ENCOUNTER 2016-11-03 19:29 | Inpatient (IN) | payer MEDICAID ==
[2016-11-03 19:34] VITALS: BMI 30.2
--- NOTE | 2016-11-03 19:48 | ED PDOC ---
Arrival/HPI - General Chief Complaint: Shortness Of Breath Time Seen by Provider: 11/03/16 19:38 Historian: Patient - History of Present Illness Narrative History of Present Illness (Text): 11/03/16 19:41 46 y/o female, pmh including hepatitis C/liver cirrhosis/subdural hematoma/copd/ hypothyroidism, nkda, biba c/o copd exacerbation, c/o coughing/wheezing/ shortness of breath x 2 days. Pt. was seen in the ER 2 days ago for the same complaint which she feels better and wants to be discharged home. Pt. is here to night through the ambulance because she has been coughing/wheezing/shortness of breath at home for the past 2 days, no chest pain or dizziness, no palpitation, no numbness or tingling, no other medical or psychological complaints. Past Medical History - Provider Review Nursing Documentation Reviewed: Yes - Infectious Disease Hx of Infectious Diseases: None - Tetanus Immunization Tetanus Immunization: Unknown - Cardiac Hx Cardiac Disorders: No - Pulmonary Hx Respiratory Disorders: Yes Hx Asthma: Yes Hx Bronchitis: Yes Hx Chronic Obstructive Pulmonary Disease (COPD): Yes Hx Emphysema: Yes Other/Comment: pneumothorax with lung surgery - Neurological Hx Neurological Disorder: No Hx Alzheimer's Disease: No HX Cerebrovascular Accident: No Hx Dementia: No Hx Dizziness: No Hx Meningitis: No Hx Migraine: No Hx Parkinson's Disease: No Hx Seizures: No Hx Transient Ischemic Attacks (TIA): No - HEENT Hx HEENT Disorder: No - Renal Hx Renal Disorder: No - Endocrine/Metabolic Hx Endocrine Disorders: Yes - Hematological/Oncological Hx Blood Disorders: Yes Hx Hepatitis C: Yes - Integumentary Hx Dermatological Disorder: Yes (Multiple scabs, scratches covering body) - Musculoskeletal/Rheumatological Hx Musculoskeletal Disorders: No Hx Falls: Yes - Gastrointestinal Hx Gastrointestinal Disorders: No Other/Comment: Umbilical hernia present - Genitourinary/Gynecological Hx Genitourinary Disorders: No Hx Sexually Transmitted Diseases: Yes (trichomonas) - Psychiatric Hx Psychophysiologic Disorder: Yes Hx Anxiety: Yes Hx Substance Use: Yes (heroin) Other/Comment: substance abuse, etoh - Surgical History Hx Appendectomy: Yes Hx Tonsillectomy: Yes Other/Comment: "lung surgery" - Anesthesia Hx Anesthesia: Yes Hx Anesthesia Reactions: No Hx Malignant Hyperthermia: No - Suicidal Assessment Feels Threatened In Home Enviroment: No Family/Social History - Physician Review Nursing Documentation Reviewed: Yes Family/Social History: Unknown Family HX Smoking Status: Heavy Smoker > 10 Cigarettes Daily Hx Alcohol Use: Yes (drinks "as much as (she) can afford") Frequency of alcohol use: Daily Hx Substance Use: Yes (heroin) Substance used: HEROINE Hx Substance Use Treatment: Yes Allergies/Home Meds Allergies/Adverse Reactions: Allergies No Known Allergies Allergy (Verified 11/03/16 19:34) Review of Systems - Review of Systems Constitutional: absent: Fatigue, Fevers Eyes: absent: Vision Changes ENT: absent: Hearing Changes Respiratory: SOB, Cough, Sputum, Wheezing Cardiovascular: absent: Chest Pain Gastrointestinal: absent: Abdominal Pain, Nausea, Vomiting Musculoskeletal: absent: Arthralgias, Myalgias Skin: absent: Rash, Pruritis Psychiatric: absent: Anxiety, Depression, Suicidal Ideation Physical Exam Vital Signs Reviewed: Yes Vital Signs Temp Pulse Resp BP Pulse Ox 11/04/16 04:00 102 H 20 150/99 H 95 11/04/16 02:00 97.6 F 92 H 20 156/95 H 95 11/03/16 22:17 111 H 18 143/94 H 94 L 11/03/16 21:38 110 H 20 129/77 94 L 11/03/16 20:00 14 94 L Temperature: Afebrile Blood Pressure: Normal Pulse: Tachycardic Respiratory Rate: Tachypneic Appearance: Positive for: Well-Appearing, Non-Toxic Pain Distress: None Mental Status: Positive for: Alert and Oriented X 3 - Systems Exam Head: Present: Atraumatic, Normocephalic Pupils: Present: PERRL Extroacular Muscles: Present: EOMI Conjunctiva: Present: Normal Mouth: Present: Moist Mucous Membranes Neck: Present: Normal Range of Motion Respiratory/Chest: Present: Wheezes, Decreased Breath Sounds, Rhonchi, Tachypneic. No: Respiratory Distress, Accessory Muscle Use, Retracting, Tender to Palpation Cardiovascular: Present: Regular Rate and Rhythm, Normal S1, S2, Other (pedal edema). No: Murmurs Abdomen: Present: Distention, Normal Bowel Sounds. No: Tenderness, Peritoneal Signs Back: Present: Normal Inspection Upper Extremity: Present: Normal Inspection. No: Cyanosis, Edema Lower Extremity: Present: Normal Inspection. No: Edema Neurological: Present: GCS=15, Speech Normal, Motor Func Grossly Intact, Gait Normal, Memory Normal Skin: Present: Warm, Dry, Normal Color. No: Rashes Psychiatric: Present: Alert, Oriented x 3, Normal Insight, Normal Concentration Medical Decision Making ED Course and Treatment: 11/03/16 19:51 -labs/ua/blood culture -IV solumedrol/duoneb q15min -chest xray -lunchroom monitor 11/03/16 22:06 -Labs are non-significant except wbc 20 from 20 -ABG with normal ph and normal lactate level. -BNP and troponin is negative. -EKG: Sinus Tachycardia @ 106 BPM, no ST elevation or depression, no T wave inversion compared with previous ekg. -Chest xray show no active disease -Pt. received 3 duonebs and IV steroids with limited relief, still scattered rhonchi and wheezing, will rule out PE 11/04/16 01:32 -CTA show no acute PE -Pt. will need to be observed overnight for COPD to remote tele as she might need q4hrs albuterol and she's tachycardia. -I discussed the case with DR. Gilmore and Dr. Irvin/medical pathology teacher, they agreed on the observation. - Lab Interpretations Lab Results: 11/03/16 20:20 11/03/16 20:20 Lab Results 11/03/16 22:20: D-Dimer, Quantitative 0.73 H 11/03/16 20:20: WBC 20.3 H, RBC 4.08, Hgb 13.7, Hct 41.3, MCV 101.2, MCH 33.6, MCHC 33.2, RDW 13.7, Plt Count 382, MPV 10.0, Neutrophils % (Manual) 64, Band Neutrophils % 2, Lymphocytes % (Manual) 26, Monocytes % (Manual) 7 H, Eosinophils % (Manual) 1 11/03/16 20:20: Sodium 139, Chloride 102, Potassium 3.7, Carbon Dioxide 29, Anion Gap 12, BUN 14, Creatinine 0.7, Est GFR ( Amer) > 60, Est GFR (Non- Af Amer) > 60, Random Glucose 100, Calcium 8.4, Total Bilirubin 0.4, AST 53 H, ALT 76 H, Alkaline Phosphatase 93, Lactate Dehydrogenase 596, Total Creatine Kinase 22 L, Troponin I < 0.01, NT-Pro-B Natriuret Pep 60.9, Total Protein 6.5, Albumin 3.4, Globulin 3.1, Albumin/Globulin Ratio 1.1 11/03/16 20:15: Alcohol, Quantitative 110 H 11/03/16 20:10: pCO2 48 H, pO2 69.0 L, HCO3 28.4 H, ABG pH 7.38, ABG Total CO2 29.9 H, ABG O2 Saturation 96.9, ABG Base Excess 2.5, ABG Potassium 3.3 L, Sodium 140.0, Chloride 106.0, Glucose 98, Lactate 1.4, FiO2 21.0, Arterial Blood Potassium 3.3 L I have reviewed the lab results: Yes Interpretation: Abnormal lab values (wbc 20 from 20) - RAD Interpretation Radiology Orders: 11/03/16 19:52 CHEST PORTABLE [RAD] Stat 11/03/16 22:59 ANGIO CHEST PE PROTOCOL [CT] Stat Chest xray: no active pulmonary disease CTA: FINDINGS: Limitations: Motion artifact - mild to moderate. Pulmonary arteries: No definite pulmonary embolism. Aorta: No aneurysm. No dissection. Lungs: No consolidation. Pleural space: No significant effusion. No pneumothorax. Heart: No cardiomegaly. No significant pericardial effusion. Bones/joints: Several healed rib fractures. Soft tissues: Unremarkable. Lymph nodes: No pathologically enlarged lymph nodes. IMPRESSION: 1. No definite CT evidence of pulmonary embolism. 2. Incidental/non-acute findings are described above. Thank you for allowing us to participate in the care of your patient. Dictated and Authenticated by: Marcus Diaz MD 11/04/2016 1:24 AM Eastern Time ([place] & [place]) Combatant Swimmer: Radiologist - EKG Interpretation EKG Interpretation (Text): 11/04/16 01:32 Sinus Tachycardia @ 106 BPM, no ST elevation or depression, no T wave inversion compared with previous ekg. Interpreted by ED Physician: Yes Type: 12 lead EKG Comparison: Com.w/previous EKG - Medication Orders Current Medication Orders: Albuterol Sulfate (Albuterol 0.042% Inhal Yue (1.25mg/3ml) Ud) 1.25 mg IH Q3 PRN PRN Reason: SOB Last Admin: 11/04/16 05:21 Dose: 1.25 mg Albuterol/Ipratropium (Duoneb 3 Mg/0.5 Mg (3 Ml) Ud) 3 ml IH [id number] [facility] Last Admin: 11/04/16 13:19 Dose: Not Given Non-Admin Reason: Patient Refused Chlordiazepoxide (Librium) 25 mg PO Q12H PRN; Protocol PRN Reason: Symptoms of alcohol withdrawl Folic Acid (Folic Acid) 1 mg PO DAILY [facility] Heparin Sodium (Porcine) (Heparin) 5,000 units SC Q8 JACK PRN Reason: Protocol Last Admin: 11/04/16 05:04 Dose: 5,000 units Sodium Chloride (Sodium Chloride 0.9%) 1,000 mls @ 100 mls/hr IV .Q10H [facility] Last Admin: 11/03/16 20:19 Dose: 100 mls/hr Levofloxacin/Dextrose (Levaquin 500mg) 500 mg in 100 mls @ 100 mls/hr IVPB DAILY [facility] Lorazepam (Ativan) 1 mg IVP Q2 PRN; Protocol PRN Reason: Symptoms of alcohol withdrawl Last Admin: 11/04/16 08:25 Dose: 1 mg Re-Assess: Reassess Psych Meds Document 11/04/16 08:55 CHART (Rec: 11/04/16 08:58 CHART [id number]) Reassess Psych Med Effective Lorazepam (Ativan) 2 mg IVP Q4H JACK PRN Reason: Protocol Methylprednisolone (Solu-Medrol) 40 mg IV Q12 [facility] Last Admin: 11/04/16 09:39 Dose: 40 mg Multivitamins (Thera Tab) 1 tab PO 0800 [facility] Nicotine (Nicoderm Cq) 1 patch TD DAILY [facility] Last Admin: 11/04/16 09:39 Dose: 1 patch Pantoprazole Sodium (Protonix Ec Tab) 40 mg PO 0600 [facility] Last Admin: 11/04/16 05:04 Dose: 40 mg Thiamine HCl (Vitamin B1 Tab) 100 mg PO DAILY [facility] Discontinued Medications Albuterol/Ipratropium (Duoneb 3 Mg/0.5 Mg (3 Ml) Ud) 3 ml IH Q15M JACK Stop: 11/03/16 20:31 Last Admin: 11/03/16 21:32 Dose: 3 ml Folic Acid (Folic Acid) 1 mg PO STAT STA Stop: 11/04/16 03:25 Last Admin: 11/04/16 03:57 Dose: 1 mg Levofloxacin/Dextrose (Levaquin 500mg) 500 mg in 100 mls @ 100 mls/hr IVPB STAT STA Stop: 11/04/16 04:22 Last Admin: 11/04/16 03:57 Dose: 100 mls/hr Iodixanol (Visipaque 320 Mg/Ml 100 Ml) Confirm Administered Dose 100 ml IV .STK- MED ONE Stop: 11/04/16 00:33 Lorazepam (Ativan) 2 mg IVP Q6H [facility] PRN Reason: Protocol Last Admin: 11/04/16 10:22 Dose: 2 mg Re-Assess: Reassess Psych Meds Document 11/04/16 10:52 CHART (Rec: 11/04/16 11:21 CHART [facility] [id number] Reassess Psych Med Effective Methylprednisolone (Solu-Medrol) 125 mg IVP STAT STA Stop: 11/03/16 19:47 Last Admin: 11/03/16 20:18 Dose: 125 mg Multivitamins (Thera Tab) 1 tab PO STAT STA Stop: 11/04/16 03:23 Last Admin: 11/04/16 03:56 Dose: 1 tab Thiamine HCl (Vitamin B1 Inj) 100 mg IM STAT STA Stop: 11/04/16 03:21 Last Admin: 11/04/16 03:56 Dose: 100 mg - PA / HOSPITALIST NOCTURNIST PHYSICIAN / Resident Statement /DO has reviewed & agrees with the documentation as recorded. Disposition/Present on Arrival - Present on Arrival Any Indicators Present on Arrival: No History of DVT/PE: No History of Uncontrolled Diabetes: No Urinary Catheter: No History of Decub. Ulcer: No History Surgical Site Infection Following: None - Disposition Have Diagnosis and Disposition been Completed?: Yes Diagnosis: COPD exacerbation Disposition: HOSPITALIZED Disposition Time: 19:51 Patient Plan: Observation, Telemetry Patient Problems: Current Active Problems Problem Status Onset COPD exacerbation Acute Condition: STABLE
[2016-11-03] MEDS: Sodium Chloride 0.9% 1,000 ML IV SCH (20:19)
[2016-11-03] MEDS: Albuterol-Ipratrop 3 mg / 0.5 (3 ml) UD IH SCH ×3 (20:19→21:32)
[2016-11-03 20:20] LABS: ARTERIAL BLOOD GAS HCO3 28.4 mmol/L (21-28); ARTERIAL BLOOD GAS O2 SAT 96.9 % (95-98); ARTERIAL BLOOD GAS PCO2 48 mm/Hg (35-45); ARTERIAL BLOOD GAS PH 7.38 (7.35-7.45); ARTERIAL BLOOD GAS TCO2 29.9 mmol.L (22-28)
[2016-11-03 20:27] LABS: HEMOGLOBIN 13.7 gm/dL (12.0-16.0); MEAN CELL VOLUME 101.2 fL (80.0-105.0); MEAN CORPUSCULAR HEMOGLOBIN 33.6 pg (25.0-35.0); MEAN CORPUSCULAR HGB CONC 33.2 g/dl (31.0-37.0); PLATELET COUNT 382 10^3/uL (120.0-450.0); RBC 4.08 10^6/uL (3.5-6.1); RED CELL DISTRIBUTION WIDTH 13.7 % (11.5-14.5); WHITE BLOOD COUNT 20.3 10^3/ul (4.5-11.0)
[2016-11-03 20:38] LABS: ALB/GLOB RATIO 1.1 (1.1-1.8); ALBUMIN 3.4 g/dL (3.0-4.8); ALT/SGPT 76 U/L (7-56); AST/SGOT 53 U/L (15-39); BLOOD UREA NITROGEN 14 mg/dL (7-21); CALCIUM 8.4 mg/dL (8.4-10.5); GFR AFRICAN-AMERICAN > 60; GFR NON-AFRICAN AMERICAN > 60
[2016-11-03 20:50] LABS: B-TYPE NATRIURETIC PEPTIDE 60.9 pg/mL (0-450)
[2016-11-03 20:58] LABS: TROPONIN I < 0.01 ng/mL
[2016-11-03 21:06] LABS: BAND 2 % (0-2); EOSINOPHIL 1 % (0.0-3.0); LYMPHOCYTE 26 % (22.0-35.0); MONOCYTE 7 % (1.0-6.0); NEUTROPHIL 64 % (50.0-70.0)
[2016-11-04] MEDS ORDERED: Iodixanol 320 MG/ML 100 ML BOTTLE IV ONE (00:32)
--- NOTE | 2016-11-04 01:24 | CT ---
EXAM: CT Angiography Chest With Intravenous Contrast CLINICAL HISTORY: 46 years old, female; Signs and symptoms; Shortness of breath TECHNIQUE: Axial computed tomographic angiography images of the chest with intravenous contrast using pulmonary embolism protocol. This CT exam was performed using one or more of the following dose reduction techniques: automated exposure control, adjustment of the mA and/or kV according to patient size, and/or use of iterative reconstruction technique. MIP reconstructed images were created and reviewed. Coronal and sagittal reformatted images were created and reviewed. CONTRAST: 96 mL of visi 320 administered intravenously. COMPARISON: DX - CHEST PORTABLE 11/03/2016 8:06:15 PM FINDINGS: Limitations: Motion artifact - mild to moderate. Pulmonary arteries: No definite pulmonary embolism. Aorta: No aneurysm. No dissection. Lungs: No consolidation. Pleural space: No significant effusion. No pneumothorax. Heart: No cardiomegaly. No significant pericardial effusion. Bones/joints: Several healed rib fractures. Soft tissues: Unremarkable. Lymph nodes: No pathologically enlarged lymph nodes. IMPRESSION: 1. No definite CT evidence of pulmonary embolism. 2. Incidental/non-acute findings are described above.
--- NOTE | 2016-11-04 01:35 | CP.PCM.HP ---
<Parveen Moraes - Last Filed: 11/04/16 03:34> History of Present Illness - History of Present Illness History of Present Illness: CC: SOB Patient is a 46 year old with a PMHx of COPD, bronchitis, IVDA (heroin), Hep C, liver cirrhosis, umbilical Hernia, ETOH abuse who presents to the ED for evaluation of SOB. Patient states her SOB was exacerbated 2 days ago with no specific provoking event. Denies recent sick contacts or recent travel. The SOB is exacerbated with activity and improves with rest. States that she does not use her home inhalers because she used her only supply. Admits to non productive cough. Admits to snorting heroin 3 days ago. Admits to heavy liquor consumption, the last drink being 20 hours ago. Admits to experiencing experiencing body shakes and anxiousness which started within the past hour. Denies fever, chills, dizziness, chest pain, abdominal pain, N/V, diarrhea, constipation, and urinary symptoms. PMHx: COPD, IVDA (heroin), Hep C, Umbilical Hernia, ETOH/Tobacco/Illicit substance abuse PSHx: appendectomy, and left sided "lung surgery" Allergies: NKDA SocHx: drinks 4-5 12oz bottles of 14% ETOHliquor for 20 years, 1ppd for 25 years , current heroin user- snorts no IVDA currently but does have hx of IVDA, homeless FamHx: Non-contributory Meds: please see med rec EKG: NS Rhythm HR 106 QTc 443 Present on Admission - Present on Admission Any Indicators Present on Admission: No Review of Systems - Review of Systems Review of Systems: 12 point review of systems negative except as indicated in HPI. Past Patient History - Infectious Disease Hx of Infectious Diseases: None - Tetanus Immunizations Tetanus Immunization: Unknown - Past Medical History & Family History Past Medical History?: Yes - Past Social History Smoking Status: Heavy Smoker > 10 Cigarettes Daily - CARDIAC Hx Cardiac Disorders: No - PULMONARY Hx Respiratory Disorders: Yes Hx Asthma: Yes Hx Bronchitis: Yes Hx Chronic Obstructive Pulmonary Disease (COPD): Yes Hx Emphysema: Yes Other/Comment: pneumothorax with lung surgery - NEUROLOGICAL Hx Neurological Disorder: No Hx Alzheimer's Disease: No HX Cerebrovascular Accident: No Hx Dementia: No Hx Dizziness: No Hx Meningitis: No Hx Migraine: No Hx Parkinson's Disease: No Hx Seizures: No Hx Transient Ischemic Attacks (TIA): No - HEENT Hx HEENT Problems: No - RENAL Hx Chronic Kidney Disease: No - ENDOCRINE/METABOLIC Hx Endocrine Disorders: Yes - HEMATOLOGICAL/ONCOLOGICAL Hx Blood Disorders: Yes Hx Hepatitis C: Yes - INTEGUMENTARY Hx Dermatological Problems: Yes (Multiple scabs, scratches covering body) - MUSCULOSKELETAL/RHEUMATOLOGICAL Hx Musculoskeletal Disorders: No Hx Falls: Yes - GASTROINTESTINAL Hx Gastrointestinal Disorders: No Other/Comment: Umbilical hernia present - GENITOURINARY/GYNECOLOGICAL Hx Genitourinary Disorders: No Hx Sexually Transmitted Disorders: Yes (trichomonas) - PSYCHIATRIC Hx Psychophysiologic Disorder: Yes Hx Anxiety: Yes Hx Substance Use: Yes (heroin) Other/Comment: substance abuse, etoh - SURGICAL HISTORY Hx Appendectomy: Yes Hx Tonsillectomy: Yes Other/Comment: "lung surgery" - ANESTHESIA Hx Anesthesia: Yes Hx Anesthesia Reactions: No Hx Malignant Hyperthermia: No Meds Allergies/Adverse Reactions: Allergies Allergy/AdvReac Type Severity Reaction Status Date / Time No Known Allergies Allergy Verified 11/03/16 19:34 Physical Exam - Constitutional Appears: Non-toxic, No Acute Distress, Unkempt - Head Exam Head Exam: NORMAL INSPECTION - Eye Exam Eye Exam: EOMI, Normal appearance Pupil Exam: PERRL - Neck Exam Neck exam: Positive for: Normal Inspection. Negative for: Tenderness - Respiratory Exam Respiratory Exam: Wheezes. absent: Accessory Muscle Use Additional comments: Decreased Breath Sounds bilateral lower lobes Expiratory wheeze bilateral upper lobes with scattered rhonchi - Cardiovascular Exam Cardiovascular Exam: Tachycardia, +S1, +S2 - GI/Abdominal Exam GI & Abdominal Exam: Distended, Soft. absent: Guarding, Rebound, Tenderness - Extremities Exam Extremities exam: Positive for: pedal pulses present. Negative for: normal inspection, tenderness - Back Exam Back exam: absent: CVA tenderness (L), CVA tenderness (R) - Neurological Exam Neurological exam: Alert, CN II-XII Intact, Oriented x3 - Psychiatric Exam Psychiatric exam: Anxious - Skin Skin Exam: Abrasion, Warm Additional comments: several healing abrasions at various states in healing process in the bilateral lower extremities Results - Vital Signs Recent Vital Signs: Last Vital Signs Temp Pulse 111 H 11/03/16 22:17 Resp 18 11/03/16 22:17 BP 143/94 H 11/03/16 22:17 Pulse Ox 94 L 11/03/16 22:17 - Labs Result Diagrams: 11/03/16 20:20 11/03/16 20:20 Labs: Laboratory Results - last 24 hr 11/03/16 11/03/16 11/03/16 20:10 20:20 20:20 WBC 20.3 H RBC 4.08 Hgb 13.7 Hct 41.3 MCV 101.2 MCH 33.6 MCHC 33.2 RDW 13.7 Plt Count 382 MPV 10.0 Neutrophils % (Manual) 64 Band Neutrophils % 2 Lymphocytes % (Manual) 26 Monocytes % (Manual) 7 H Eosinophils % (Manual) 1 D-Dimer, Quantitative pCO2 48 H pO2 69.0 L HCO3 28.4 H ABG pH 7.38 ABG Total CO2 29.9 H ABG O2 Saturation 96.9 ABG Base Excess 2.5 ABG Potassium 3.3 L Sodium 140.0 139 Chloride 106.0 102 Glucose 98 Lactate 1.4 FiO2 21.0 Potassium 3.7 Carbon Dioxide 29 Anion Gap 12 BUN 14 Creatinine 0.7 Est GFR ( Amer) > 60 Est GFR (Non-Af Amer) > 60 Random Glucose 100 Calcium 8.4 Total Bilirubin 0.4 AST 53 H ALT 76 H Alkaline Phosphatase 93 Lactate Dehydrogenase 596 Total Creatine Kinase 22 L Troponin I < 0.01 NT-Pro-B Natriuret Pep 60.9 Total Protein 6.5 Albumin 3.4 Globulin 3.1 Albumin/Globulin Ratio 1.1 Arterial Blood Potassium 3.3 L 11/03/16 22:20 WBC RBC Hgb Hct MCV MCH MCHC RDW Plt Count MPV Neutrophils % (Manual) Band Neutrophils % Lymphocytes % (Manual) Monocytes % (Manual) Eosinophils % (Manual) D-Dimer, Quantitative 0.73 H pCO2 pO2 HCO3 ABG pH ABG Total CO2 ABG O2 Saturation ABG Base Excess ABG Potassium Sodium Chloride Glucose Lactate FiO2 Potassium Carbon Dioxide Anion Gap BUN Creatinine Est GFR ( Amer) Est GFR (Non-Af Amer) Random Glucose Calcium Total Bilirubin AST ALT Alkaline Phosphatase Lactate Dehydrogenase Total Creatine Kinase Troponin I NT-Pro-B Natriuret Pep Total Protein Albumin Globulin Albumin/Globulin Ratio Arterial Blood Potassium Assessment & Plan - Assessment and Plan (Free Text) Assessment: Patient is a 46 year old female who is being admitted to the hospital for evaluation and treatment of SOB. 1. SOB likely 2/2 to COPD Exacerbation and Asthma - blood gas reviewed- hypercapneic hypoxemic compensation with elevated bicarb - albuterol/ipratropium q6, note was made patient is already tachycardic- will monitor and change to xopenox if needed - albuterol 1.25 q3 prn SOB - solumedrol 40 IV q12 - oxygen 2 liters via NC - prophylatic antibiotics with levaquin 2. Sinus Tachycardia, SOB - in the setting of the SOB PE was considered - CT Angiography Chest With Intravenous Contrast showed no evidence of PE - possible due to ETOH withdraw, please see #5 3. Leukocytosis - meets SIRS criteria without overt source of infection - blood cultures - monitor closely via daily CBC - prophylatic antibiotics with levaquin 4. Transaminitis, Hx of Hep C- not treated - at baseline - monitor closely with daily CMP 5. Hx of ETOH abuse - last drink was approximately 16-20 hours ago - serum ETOH level - [facility] protocol - ativan 2mg q6 hours, hold if patient is lethargic - ativan 1 mg IV q2 PRN ETOH withdrawl symptoms - thiamine 100mg IV x 1 dose, which to oral therafter - folate - multivitamin 6. Tobacco Abuse, Substance Abuse, details- snorted heroin 3 days ago - patient education provided - nicotine patch 7. Bilateral Lower Extremity Lesions - patient states they do not itch, was treated with permethrin - states she was already treated for scabies - monitor closely 8. PPx - subq heparin - protonix - patient discussed with attending, Dr. Irvin <Alex Irvin - Last Filed: 11/04/16 05:41> Results - Vital Signs Recent Vital Signs: Last Vital Signs Temp 97.6 F 11/04/16 02:00 Pulse 102 H 11/04/16 04:00 Resp 20 11/04/16 04:00 BP 150/99 H 11/04/16 04:00 Pulse Ox 95 11/04/16 04:00 - Labs Result Diagrams: 11/03/16 20:20 11/03/16 20:20 Attending/Attestation - Attestation I have personally seen and examined this patient.: Yes I have fully participated in the care of the patient.: Yes I have reviewed all pertinent clinical information: Yes Notes (Text): 11/04/16 05:35 46 F with h/o COPD smoking 1PPD, drinking about 5-6 24 oz 14% alcohol, h/o sniffing heroin, living on streets, noncompliant with med out of the hospital, multiple recent hospitalization with resp distress, copd exacerbation, recent treatment for scabies, h/o hepc not treated comes with again sob, found to be wheezing not improved significantly with treatment in ER and admitted, w/u CTA neg for pna, pe, elevated wbc count without fever, slowly improving maintained v /s and spo2 99% on 2lit nc. Patient will be observed in tele for resp distress, o2, neb, systemic steroids, empiric abx, schedule and prn ativan, thiamine, mvt , counselled about substance abuse, social stressors, need for help, gi and dvt prophylaxis.
[2016-11-04] MEDS ORDERED: Albuterol 0.042% Inhal Sol (1.25 mg/3 mL) UD IH PRN (03:16)
[2016-11-04] MEDS: Multivitamin Therapeutic Tab PO STA (03:56)
[2016-11-04] MEDS: Thiamine 100 mg/ml Inj IM STA (03:56)
[2016-11-04] MEDS: levoFLOXacin 500 mg in D5W 500 MG/100 ML BAG IVPB STA (03:57)
[2016-11-04] MEDS: Pantoprazole 40 mg EC Tab PO SCH (05:04)
[2016-11-04 07:28] LABS: BLOOD UREA NITROGEN 18 mg/dL (7-21); CALCIUM 8.3 mg/dL (8.4-10.5); GFR AFRICAN-AMERICAN > 60; GFR NON-AFRICAN AMERICAN > 60
--- NOTE | 2016-11-04 07:29 | RAD ---
HISTORY: shortness of breath COMPARISON: 10/28/2016. FINDINGS: LUNGS: The lungs are well inflated and clear. PLEURA: No significant pleural effusion identified, no pneumothorax apparent. CARDIOVASCULAR: Normal. OSSEOUS STRUCTURES: No significant abnormalities. VISUALIZED UPPER ABDOMEN: Normal. OTHER FINDINGS: None. IMPRESSION: No active pulmonary disease.
[2016-11-04 07:34] LABS: MEAN CELL VOLUME 100.3 fL (80.0-105.0); MEAN CORPUSCULAR HEMOGLOBIN 32.9 pg (25.0-35.0); MEAN CORPUSCULAR HGB CONC 32.8 g/dl (31.0-37.0); MEAN PLATELET VOLUME 10.3 fl (7.0-11.0); PLATELET COUNT 342 10^3/uL (120.0-450.0); RBC 3.95 10^6/uL (3.5-6.1); RED CELL DISTRIBUTION WIDTH 13.4 % (11.5-14.5); WHITE BLOOD COUNT 16.6 10^3/ul (4.5-11.0)
[2016-11-04 09:03] LABS: BAND 6 % (0-2); LYMPHOCYTE 7 % (22.0-35.0); MONOCYTE 3 % (1.0-6.0); NEUTROPHIL 84 % (50.0-70.0); PLATELET ESTIMATE NORMAL (NORMAL)
[2016-11-04] MEDS: MethylPREDNISolone 40 mg Vial IV SCH ×2 (09:39→22:01)
[2016-11-04] MEDS ORDERED: methylPREDNISolone 40 GM in Sodium Chloride 0.9% 250 ML IV SCH (10:00)
[2016-11-04] MEDS ORDERED: METHYLPREDNISOLONE IV SCH (10:00)
[2016-11-04] MEDS ORDERED: SODIUM CHLORIDE 0.9% IV SCH (10:00)
[2016-11-04] MEDS: Albuterol-Ipratrop 3 mg / 0.5 (3 ml) UD IH SCH ×2 (13:19→19:33)
--- NOTE | 2016-11-04 14:07 | CP.PCM.PCO ---
Physician Communication Note - Physician Communication Note Physician Communication Note: Spoke with pharmacist who confirmed that pt did not receive meds after d/c
[2016-11-04] MEDS: Sodium Chloride 0.9% 1,000 ML IV SCH (14:33)
--- NOTE | 2016-11-04 16:18 | CARD ---
APPROVED REPORT EKG Measurement Heart [id number] <Conclusion> Sinus tachycardia Otherwise normal ECG
[2016-11-05] MEDS: Albuterol-Ipratrop 3 mg / 0.5 (3 ml) UD IH SCH ×4 (01:18→20:05)
[2016-11-05] MEDS: Pantoprazole 40 mg EC Tab PO SCH (06:13)
[2016-11-05 07:24] LABS: MEAN CELL VOLUME 100.3 fL (80.0-105.0); MEAN CORPUSCULAR HEMOGLOBIN 32.7 pg (25.0-35.0); MEAN CORPUSCULAR HGB CONC 32.7 g/dl (31.0-37.0); MEAN PLATELET VOLUME 10.4 fl (7.0-11.0); PLATELET COUNT 340 10^3/uL (120.0-450.0); RBC 3.97 10^6/uL (3.5-6.1); RED CELL DISTRIBUTION WIDTH 13.4 % (11.5-14.5)
[2016-11-05] MEDS: Thiamine 100 mg/ml Inj IM STA (07:37)
[2016-11-05] MEDS: levoFLOXacin 500 mg in D5W 500 MG/100 ML BAG IVPB STA (07:37)
[2016-11-05] MEDS: Multivitamin Therapeutic Tab PO STA (07:37)
[2016-11-05 07:59] LABS: BLOOD UREA NITROGEN 16 mg/dL (7-21); CALCIUM 8.5 mg/dL (8.4-10.5); GFR AFRICAN-AMERICAN > 60; GFR NON-AFRICAN AMERICAN > 60
[2016-11-05] MEDS ORDERED: Multivitamin Therapeutic Tab PO SCH (08:00)
[2016-11-05] MEDS: levoFLOXacin 500 mg in D5W 500 MG/100 ML BAG IVPB SCH (09:53)
[2016-11-05] MEDS: MethylPREDNISolone 40 mg Vial IV SCH ×2 (09:54→21:48)
[2016-11-05 10:22] LABS: BAND 2 % (0-2); LYMPHOCYTE 11 % (22.0-35.0); MONOCYTE 2 % (1.0-6.0); NEUTROPHIL 83 % (50.0-70.0)
[2016-11-05 10:23] LABS: PLATELET ESTIMATE NORMAL (NORMAL)
--- NOTE | 2016-11-05 11:08 | CP.PCM.PN ---
<ALAYNA WARE - Last Filed: 11/05/16 11:00> Subjective - Date & Time of Evaluation Date of Evaluation: 11/05/16 Time of Evaluation: 08:50 - Subjective Subjective: patient seen and examined bedside. pt states that she is still feeling short of breath and wheezing. states that she feels a little better than yesterday. pt worried that she might be going through alcohol withdrawal. denies cp, n/v/d, headaches, fevers or chills. Objective - Vital Signs/Intake and Output Vital Signs (last 24 hours): Temp Pulse Resp BP Pulse Ox 97.6 F 86 18 145/89 98 11/05/16 06:00 11/05/16 06:00 11/05/16 06:00 11/05/16 06:00 11/05/16 06:00 Intake and Output: 11/05/16 11/05/16 06:59 18:59 Intake Total 240 Output Total 2 Balance 238 - Medications Medications: Current Medications Albuterol Sulfate (Albuterol 0.042% Inhal Yue (1.25mg/3ml) Ud) 1.25 mg IH Q3 PRN PRN Reason: SOB Last Admin: 11/04/16 05:21 Dose: 1.25 mg Albuterol/Ipratropium (Duoneb 3 Mg/0.5 Mg (3 Ml) Ud) 3 ml IH [id number] [facility] Last Admin: 11/05/16 07:47 Dose: Not Given Chlordiazepoxide (Librium) 25 mg PO Q12H PRN; Protocol PRN Reason: Symptoms of alcohol withdrawl Last Admin: 11/05/16 01:27 Dose: 25 mg Folic Acid (Folic Acid) 1 mg PO DAILY [facility] Last Admin: 11/05/16 09:58 Dose: 1 mg Heparin Sodium (Porcine) (Heparin) 5,000 units SC Q8 JACK PRN Reason: Protocol Last Admin: 11/05/16 06:13 Dose: 5,000 units Levofloxacin/Dextrose (Levaquin 500mg) 500 mg in 100 mls @ 100 mls/hr IVPB DAILY [facility] Last Admin: 11/05/16 09:53 Dose: 100 mls/hr Lorazepam (Ativan) 1 mg IVP Q2 PRN; Protocol PRN Reason: Symptoms of alcohol withdrawl Last Admin: 11/04/16 08:25 Dose: 1 mg Lorazepam (Ativan) 2 mg IVP Q4H [facility] PRN Reason: Protocol Last Admin: 11/05/16 09:54 Dose: 2 mg Methylprednisolone (Solu-Medrol) 40 mg IV Q12 [facility] Last Admin: 11/05/16 09:54 Dose: 40 mg Multivitamins (Thera Tab) 1 tab PO 0800 [facility] Last Admin: 11/05/16 09:58 Dose: 1 tab Nicotine (Nicoderm Cq) 1 patch TD DAILY [facility] Last Admin: 11/05/16 09:58 Dose: 1 patch Pantoprazole Sodium (Protonix Ec Tab) 40 mg PO 0600 [facility] Last Admin: 11/05/16 06:13 Dose: 40 mg Thiamine HCl (Vitamin B1 Tab) 100 mg PO DAILY [facility] Last Admin: 11/05/16 09:58 Dose: 100 mg - Labs Labs: 11/05/16 07:12 11/05/16 07:12 - Constitutional Appears: Well, No Acute Distress, Unkempt - Head Exam Head Exam: ATRAUMATIC, NORMAL INSPECTION, NORMOCEPHALIC - Eye Exam Eye Exam: EOMI, Normal appearance, PERRL Pupil Exam: NORMAL ACCOMODATION - ENT Exam ENT Exam: Mucous Membranes Moist, Normal Exam - Neck Exam Neck Exam: Normal Inspection - Respiratory Exam Respiratory Exam: Wheezes (similar to prior exam), NORMAL BREATHING PATTERN. absent: Accessory Muscle Use, Chest Wall Tenderness, Rales, Rhonchi, Respiratory Distress, Stridor Additional comments: pt able to speak in short sentences but has to catch her breath, was sleeping with NC off for the night - Cardiovascular Exam Cardiovascular Exam: RRR, +S1, +S2. absent: Gallop, JVD, Rubs, Murmur - GI/Abdominal Exam GI & Abdominal Exam: Soft, Normal Bowel Sounds. absent: Distended, Tenderness - Extremities Exam Extremities Exam: Full ROM. absent: Pedal Edema, Tenderness Additional comments: pt has abrasions on her L knee and LUE from falling while drunk per pt - Neurological Exam Neurological Exam: Alert, Awake, Normal Gait, Oriented x3 - Psychiatric Exam Psychiatric exam: Normal Affect, Normal Mood - Skin Skin Exam: Abrasion (as above), Normal Color, Warm - Additional Findings Additional findings: mild tremor when she reaches out her hand Assessment and Plan - Assessment and Plan (Free Text) Plan: 46yo F PMHx COPD, ETOH/Tobacco abuse, IVDA (heroin), hep C (known and untreated) , umbilical hernia p/w sob and symptoms of ETOH withdrawal 1. COPD exacerbation - Solumedrol 40 Q12, Duonebs Q6 - Albuterol Q3 PRN sob - continue NC 2L - monitor pulse ox - prophylactic Levaquin 2. ETOH withdrawal - Librium 25mg Q12 and Ativan 2mg Q4 PRN - monitor for withdrawal symptoms - thiamine, folic acid, MV 3. HTN - NS dc last night - switch to HHD - monitor closely 4. Leukocytosis- pt afebrile, likely 2/2 steroid use 5. Tobacco abuse - nicotine patch given - continue to educate pt about negative effects of smoking PPX: PTX/Heparin Dispo: meds are in the pharmacy downstairs from last admission, tow picker Patient was seen, examined and discussed with attending, Dr. Aspen Ware, PGY1 <Juli Louise B - Last Filed: 11/05/16 14:14> Objective - Vital Signs/Intake and Output Vital Signs (last 24 hours): Temp Pulse Resp BP Pulse Ox 98.1 F 100 H 21 153/102 H 98 11/05/16 12:00 11/05/16 12:00 11/05/16 12:00 11/05/16 12:00 11/05/16 06:00 Intake and Output: 11/05/16 11/05/16 06:59 18:59 Intake Total 240 Output Total 2 Balance 238 - Medications Medications: Current Medications Albuterol Sulfate (Albuterol 0.042% Inhal Yue (1.25mg/3ml) Ud) 1.25 mg IH Q3 PRN PRN Reason: SOB Last Admin: 11/04/16 05:21 Dose: 1.25 mg Albuterol/Ipratropium (Duoneb 3 Mg/0.5 Mg (3 Ml) Ud) 3 ml IH [id number] [facility] Last Admin: 11/05/16 07:47 Dose: Not Given Benzonatate (Tessalon Perles) 100 mg PO TID [facility] Last Admin: 11/05/16 13:42 Dose: 100 mg Chlordiazepoxide (Librium) 25 mg PO Q12H PRN; Protocol PRN Reason: Symptoms of alcohol withdrawl Last Admin: 11/05/16 13:47 Dose: 25 mg Folic Acid (Folic Acid) 1 mg PO DAILY [facility] Last Admin: 11/05/16 09:58 Dose: 1 mg Heparin Sodium (Porcine) (Heparin) 5,000 units SC Q8 JACK PRN Reason: Protocol Last Admin: 11/05/16 13:42 Dose: 5,000 units Levofloxacin/Dextrose (Levaquin 500mg) 500 mg in 100 mls @ 100 mls/hr IVPB DAILY JACK Last Admin: 11/05/16 09:53 Dose: 100 mls/hr Lorazepam (Ativan) 1 mg IVP Q2 PRN; Protocol PRN Reason: Symptoms of alcohol withdrawl Last Admin: 11/04/16 08:25 Dose: 1 mg Lorazepam (Ativan) 2 mg IVP Q4H JACK PRN Reason: Protocol Last Admin: 11/05/16 13:40 Dose: 2 mg Methylprednisolone (Solu-Medrol) 40 mg IV Q12 [facility] Last Admin: 11/05/16 09:54 Dose: 40 mg Multivitamins (Thera Tab) 1 tab PO 0800 JACK Last Admin: 11/05/16 09:58 Dose: 1 tab Nicotine (Nicoderm Cq) 1 patch TD DAILY [facility] Last Admin: 11/05/16 09:58 Dose: 1 patch Pantoprazole Sodium (Protonix Ec Tab) 40 mg PO 0600 [facility] Last Admin: 11/05/16 06:13 Dose: 40 mg Thiamine HCl (Vitamin B1 Tab) 100 mg PO DAILY [facility] Last Admin: 11/05/16 09:58 Dose: 100 mg Tramadol HCl (Ultram) 50 mg PO TID PRN PRN Reason: Pain, moderate (4-7) Last Admin: 11/05/16 12:13 Dose: 50 mg - Labs Labs: 11/05/16 07:12 11/05/16 07:12 Attending/Attestation - Attestation I have personally seen and examined this patient.: Yes I have fully participated in the care of the patient.: Yes I have reviewed all pertinent clinical information, including history, physical exam and plan: Yes Notes (Text): I have seen and examined patient at bedside. Agree with the above note with the following additions/ exceptions: Briefly, this is 46 year old female with history of COPD, Alcohol abuse, homeless, IVDA, tobacco use, known untreated Hep C who was admitted for COPD exacerbation. Patient continues to wheeze diffusely however is slightly better. Today she is able to talk in small sentences. Continue solumedrol taper, duonebs, brovana and levaquin. Continue permethrin for Skin lesions. consult appreciated to arrange for halfway. Patient was advised to follow up in [facility], [place] [facility] or [facility] for Hep C treatment. Dr Juli Louise
[2016-11-06] MEDS: Albuterol-Ipratrop 3 mg / 0.5 (3 ml) UD IH SCH ×4 (01:00→19:50)
[2016-11-06] MEDS: Pantoprazole 40 mg EC Tab PO SCH (05:16)
[2016-11-06 07:46] LABS: BASO # 0.03 K/mm3 (0.0-2.0); BASO % 0.1 % (0.0-3.0); EOS % 0.1 % (1.5-5.0); GRAN # 20.31 (1.4-6.5); GRAN % 87.1 % (50.0-68.0); HEMOGLOBIN 13.5 gm/dL (12.0-16.0); LYMPH # 1.6 (1.2-3.4); MEAN CELL VOLUME 99.8 fL (80.0-105.0); MEAN CORPUSCULAR HGB CONC 33.1 g/dl (31.0-37.0); MEAN PLATELET VOLUME 10.1 fl (7.0-11.0); MONO # 1.3 (0.1-0.6); MONO % 5.7 % (1.0-6.0); PLATELET COUNT 341 10^3/uL (120.0-450.0); RBC 4.09 10^6/uL (3.5-6.1); RED CELL DISTRIBUTION WIDTH 13.6 % (11.5-14.5); WHITE BLOOD COUNT 23.3 10^3/ul (4.5-11.0)
[2016-11-06 08:12] LABS: BLOOD UREA NITROGEN 20 mg/dL (7-21); CALCIUM 8.6 mg/dL (8.4-10.5); GFR AFRICAN-AMERICAN > 60; GFR NON-AFRICAN AMERICAN > 60
[2016-11-06] MEDS: levoFLOXacin 500 mg in D5W 500 MG/100 ML BAG IVPB SCH (10:25)
[2016-11-06] MEDS: MethylPREDNISolone 40 mg Vial IV SCH (10:29)
[2016-11-06] MEDS: Multivitamin Therapeutic Tab PO SCH (10:29)
--- NOTE | 2016-11-06 10:45 | CP.PCM.PN ---
<Dayanna Ireland - Last Filed: 11/06/16 10:31> Subjective - Date & Time of Evaluation Date of Evaluation: 11/06/16 Time of Evaluation: 10:31 - Subjective Subjective: Patient seen and examined at bedside. There were no acute overnight events. She reports her breathing has improved today. She denies having any hallucinations and reports her tremors are controlled. She denies having CP, SOB, n/v/d, numbness/tingling. Objective - Vital Signs/Intake and Output Vital Signs (last 24 hours): Temp Pulse Resp BP Pulse Ox 98.2 F 86 22 158/99 H 97 11/06/16 06:00 11/06/16 06:00 11/06/16 06:00 11/06/16 06:00 11/06/16 06:00 Intake and Output: 11/06/16 11/06/16 06:59 18:59 Intake Total 240 Balance 240 - Medications Medications: Current Medications Albuterol Sulfate (Albuterol 0.042% Inhal Yue (1.25mg/3ml) Ud) 1.25 mg IH Q3 PRN PRN Reason: SOB Last Admin: 11/04/16 05:21 Dose: 1.25 mg Albuterol/Ipratropium (Duoneb 3 Mg/0.5 Mg (3 Ml) Ud) 3 ml IH [id number] [facility] Last Admin: 11/06/16 07:37 Dose: Not Given Benzonatate (Tessalon Perles) 100 mg PO TID [facility] Last Admin: 11/05/16 17:30 Dose: 100 mg Chlordiazepoxide (Librium) 10 mg PO Q12 JACK PRN Reason: Protocol Folic Acid (Folic Acid) 1 mg PO DAILY [facility] Last Admin: 11/05/16 09:58 Dose: 1 mg Heparin Sodium (Porcine) (Heparin) 5,000 units SC Q8 JACK PRN Reason: Protocol Last Admin: 11/06/16 05:15 Dose: 5,000 units Levofloxacin/Dextrose (Levaquin 500mg) 500 mg in 100 mls @ 100 mls/hr IVPB DAILY [facility] Last Admin: 11/05/16 09:53 Dose: 100 mls/hr Lorazepam (Ativan) 1 mg IVP Q2 PRN; Protocol PRN Reason: Symptoms of alcohol withdrawl Last Admin: 11/04/16 08:25 Dose: 1 mg Lorazepam (Ativan) 2 mg IVP Q4H JACK PRN Reason: Protocol Last Admin: 11/06/16 05:16 Dose: 2 mg Methylprednisolone (Solu-Medrol) 40 mg IV DAILY [facility] Multivitamins (Thera Tab) 1 tab PO 1000 [facility] Nicotine (Nicoderm Cq) 1 patch TD DAILY [facility] Last Admin: 11/05/16 09:58 Dose: 1 patch Pantoprazole Sodium (Protonix Ec Tab) 40 mg PO 0600 [facility] Last Admin: 11/06/16 05:16 Dose: 40 mg Thiamine HCl (Vitamin B1 Tab) 100 mg PO DAILY [facility] Last Admin: 11/05/16 09:58 Dose: 100 mg Tramadol HCl (Ultram) 50 mg PO TID PRN PRN Reason: Pain, moderate (4-7) Last Admin: 11/05/16 20:31 Dose: 50 mg - Labs Labs: 11/06/16 07:00 11/06/16 07:00 - Constitutional Appears: No Acute Distress - Head Exam Head Exam: NORMAL INSPECTION, NORMOCEPHALIC - Eye Exam Eye Exam: Normal appearance, PERRL Pupil Exam: NORMAL ACCOMODATION, PERRL - ENT Exam ENT Exam: Mucous Membranes Moist - Respiratory Exam Respiratory Exam: Wheezes, NORMAL BREATHING PATTERN. absent: Clear to Ausculation Bilateral, Rales, Rhonchi, Stridor - Cardiovascular Exam Cardiovascular Exam: REGULAR RHYTHM, +S1, +S2. absent: Gallop, Rubs, Murmur - GI/Abdominal Exam GI & Abdominal Exam: Soft, Normal Bowel Sounds. absent: Rigid, Tenderness, Mass , Rebound - Extremities Exam Extremities Exam: Normal Inspection. absent: Calf Tenderness, Pedal Edema - Neurological Exam Neurological Exam: Alert, Awake, CN II-XII Intact, Oriented x3 - Psychiatric Exam Psychiatric exam: Normal Affect, Normal Mood - Skin Skin Exam: Dry, Intact, Normal Color, Warm Assessment and Plan - Assessment and Plan (Free Text) Assessment: This is a 46Y F with PMH COPD, Etoh, tobacco and IVDA, Hep C (untreated), who was admitted for COPD exacerbation and EtOH withdrawal. Plan: 1. COPD exacerbation - Afebrile, leukocytosis secondary to steroid use - Solumedrol tapered to 40IV daily - Continue Duobnebs, Albuterol and Tessalon pearls - Continue Levaquin 2. ETOH withdrawal - Librium tapered to 10mg q12 - Continue Ativan 2mg q4h prn - Continue Thiamine, multivitamin, folic acid - CIWA protocol - Pt counseled on alcohol cessation 3. HTN - HHD - Start Lisinopril 5mg daily - Continue to monitor BP 5. Tobacco abuse -Nicotine patch - Counseled on smoking cessation 6. Hx of Hep C - untreated - will refer pt to [facility] for further treatment. GI ppx: Protonix DVT ppx: Heparin SC Disposition: Patient has medications from last admission at [facility] pharmacy. Will do meds to beds upon D/C. Will most likely be discharged in AM. Case seen, reviewed and discussed with attending. Dami Ireland PGY2 <Juli Louise B - Last Filed: 11/06/16 14:55> Objective - Vital Signs/Intake and Output Vital Signs (last 24 hours): Temp Pulse Resp BP Pulse Ox 98.9 F 97 H 20 152/85 H 97 11/06/16 12:00 11/06/16 12:00 11/06/16 12:00 11/06/16 12:00 11/06/16 06:00 Intake and Output: 11/06/16 11/06/16 06:59 18:59 Intake Total 240 Balance 240 - Medications Medications: Current Medications Albuterol Sulfate (Albuterol 0.042% Inhal Yue (1.25mg/3ml) Ud) 1.25 mg IH Q3 PRN PRN Reason: SOB Last Admin: 11/04/16 05:21 Dose: 1.25 mg Albuterol/Ipratropium (Duoneb 3 Mg/0.5 Mg (3 Ml) Ud) 3 ml IH [id number] [facility] Last Admin: 11/06/16 13:31 Dose: Not Given Benzonatate (Tessalon Perles) 100 mg PO TID [facility] Last Admin: 11/06/16 13:26 Dose: 100 mg Chlordiazepoxide (Librium) 10 mg PO Q12 JACK PRN Reason: Protocol Last Admin: 11/06/16 10:27 Dose: 10 mg Folic Acid (Folic Acid) 1 mg PO DAILY [facility] Last Admin: 11/06/16 10:24 Dose: 1 mg Heparin Sodium (Porcine) (Heparin) 5,000 units SC Q8 JACK PRN Reason: Protocol Last Admin: 11/06/16 13:26 Dose: 5,000 units Levofloxacin/Dextrose (Levaquin 500mg) 500 mg in 100 mls @ 100 mls/hr IVPB DAILY [facility] Last Admin: 11/06/16 10:25 Dose: 100 mls/hr Lisinopril (Zestril) 5 mg PO DAILY [facility] Last Admin: 11/06/16 11:46 Dose: 5 mg Lorazepam (Ativan) 2 mg IVP Q4H PRN; Protocol PRN Reason: Agitation Last Admin: 11/06/16 13:31 Dose: 2 mg Methylprednisolone (Solu-Medrol) 40 mg IV DAILY [facility] Last Admin: 11/06/16 10:29 Dose: 40 mg Multivitamins (Thera Tab) 1 tab PO 1000 JACK Last Admin: 11/06/16 10:29 Dose: 1 tab Nicotine (Nicoderm Cq) 1 patch TD DAILY [facility] Last Admin: 11/06/16 10:28 Dose: 1 patch Pantoprazole Sodium (Protonix Ec Tab) 40 mg PO 0600 [facility] Last Admin: 11/06/16 05:16 Dose: 40 mg Thiamine HCl (Vitamin B1 Tab) 100 mg PO DAILY [facility] Last Admin: 11/06/16 10:29 Dose: 100 mg Tramadol HCl (Ultram) 50 mg PO TID PRN PRN Reason: Pain, moderate (4-7) Last Admin: 11/05/16 20:31 Dose: 50 mg - Labs Labs: 11/06/16 07:00 11/06/16 07:00 Attending/Attestation - Attestation I have personally seen and examined this patient.: Yes I have fully participated in the care of the patient.: Yes I have reviewed all pertinent clinical information, including history, physical exam and plan: Yes Notes (Text): I have seen and examined patient at bedside. Agree with the above note with the following additions/ exceptions: Briefly, this is 46 year old female with history of COPD, Alcohol abuse, homeless, IVDA, tobacco use, known untreated Hep C who was admitted for COPD exacerbation. Patient continues to have expiratory wheeze however is slightly better. Today she is able to talk in sentences. Complains of tremors, anxiety and agitation. She is non compliant with her medications. Last time, she never picked up medications from pharmacy. Continue solumedrol taper, duonebs, brovana and levaquin. Continue permethrin for Skin lesions. consult appreciated to arrange for group home. Patient was advised to follow up in [facility] clinic, [facility] or [facility] for Hep C treatment. Dr Juli Louise
[2016-11-07 00:52] VITALS: RESP 20
[2016-11-07] MEDS: Albuterol-Ipratrop 3 mg / 0.5 (3 ml) UD IH SCH ×2 (01:53→08:24)
[2016-11-07 06:33] VITALS: O2SAT 99
[2016-11-07] MEDS: Pantoprazole 40 mg EC Tab PO SCH (06:34)
[2016-11-07 08:16] LABS: HEMOGLOBIN 13.5 gm/dL (12.0-16.0); MEAN CELL VOLUME 99.3 fL (80.0-105.0); MEAN CORPUSCULAR HEMOGLOBIN 32.9 pg (25.0-35.0); MEAN CORPUSCULAR HGB CONC 33.2 g/dl (31.0-37.0); MEAN PLATELET VOLUME 9.9 fl (7.0-11.0); PLATELET COUNT 302 10^3/uL (120.0-450.0); RED CELL DISTRIBUTION WIDTH 13.7 % (11.5-14.5)
[2016-11-07 08:26] LABS: BLOOD UREA NITROGEN 20 mg/dL (7-21); CALCIUM 8.1 mg/dL (8.4-10.5); GFR AFRICAN-AMERICAN > 60; GFR NON-AFRICAN AMERICAN > 60
[2016-11-07 08:51] LABS: BAND 7 % (0-2); EOSINOPHIL 4 % (0.0-3.0); LYMPHOCYTE 16 % (22.0-35.0); MONOCYTE 1 % (1.0-6.0); NEUTROPHIL 72 % (50.0-70.0); PLATELET ESTIMATE NORMAL (NORMAL)
[2016-11-07] MEDS: Multivitamin Therapeutic Tab PO SCH (09:53)
[2016-11-07] MEDS: levoFLOXacin 500 mg in D5W 500 MG/100 ML BAG IVPB SCH (09:53)
[2016-11-07] MEDS: MethylPREDNISolone 40 mg Vial IV SCH (09:59)
[2016-11-07 12:06] VITALS: BP 124/86; PULSE 86; TEMP 98.7
--- NOTE | 2016-11-07 16:25 | CP.PCM.DIS ---
<ALAYNA WARE - Last Filed: 11/08/16 05:28> Provider - Provider Date of Admission: 11/05/16 10:58 Attending physician: Juli Louise MD Time Spent in preparation of Discharge (in minutes): 45 Hospital Course - Lab Results Lab Results: Most Recent Lab Values WBC 22.0 10^3/ul (4.5-11.0) H 11/07/16 08:11 RBC 4.10 10^6/uL (3.5-6.1) 11/07/16 08:11 Hgb 13.5 gm/dL (12.0-16.0) 11/07/16 08:11 Hct 40.7 % (36.0-48.0) 11/07/16 08:11 MCV 99.3 fL (80.0-105.0) 11/07/16 08:11 MCH 32.9 pg (25.0-35.0) 11/07/16 08:11 MCHC 33.2 g/dl (31.0-37.0) 11/07/16 08:11 RDW 13.7 % (11.5-14.5) 11/07/16 08:11 Plt Count 302 10^3/uL (120.0-450.0) 11/07/16 08:11 MPV 9.9 fl (7.0-11.0) 11/07/16 08:11 Gran % 87.1 % (50.0-68.0) H 11/06/16 07:00 Lymph % (Auto) 7.0 % (22.0-35.0) L 11/06/16 07:00 Crisp % (Auto) 5.7 % (1.0-6.0) 11/06/16 07:00 Eos % (Auto) 0.1 % (1.5-5.0) L 11/06/16 07:00 Baso % (Auto) 0.1 % (0.0-3.0) 11/06/16 07:00 Gran # 20.31 (1.4-6.5) H 11/06/16 07:00 Lymph # 1.6 (1.2-3.4) 11/06/16 07:00 Crisp # 1.3 (0.1-0.6) H 11/06/16 07:00 Eos # 0.0 (0.0-0.7) 11/06/16 07:00 Baso # 0.03 K/mm3 (0.0-2.0) 11/06/16 07:00 Neutrophils % (Manual) 72 % (50.0-70.0) H 11/07/16 08:11 Band Neutrophils % 7 % (0-2) H 11/07/16 08:11 Lymphocytes % (Manual) 16 % (22.0-35.0) L 11/07/16 08:11 Monocytes % (Manual) 1 % (1.0-6.0) 11/07/16 08:11 Eosinophils % (Manual) 4 % (0.0-3.0) H 11/07/16 08:11 Platelet Evaluation Normal (NORMAL) 11/07/16 08:11 D-Dimer, Quantitative 0.73 mg/L FEU (0-0.50) H 11/03/16 22:20 pCO2 48 mm/Hg (35-45) H 11/03/16 20:10 pO2 69.0 mm/Hg (80-100) L 11/03/16 20:10 HCO3 28.4 mmol/L (21-28) H 11/03/16 20:10 ABG pH 7.38 (7.35-7.45) 11/03/16 20:10 ABG Total CO2 29.9 mmol.L (22-28) H 11/03/16 20:10 ABG O2 Saturation 96.9 % (95-98) 11/03/16 20:10 ABG Base Excess 2.5 mmol/L (-2.0-3.0) 11/03/16 20:10 ABG Potassium 3.3 mmol/L (3.6-5.2) L 11/03/16 20:10 Sodium 140.0 mmol/L (132-148) 11/03/16 20:10 Chloride 106.0 mmol/L (98-107) 11/03/16 20:10 Glucose 98 mg/dl (65-105) 11/03/16 20:10 Lactate 1.4 mmol/L (0.7-2.1) 11/03/16 20:10 FiO2 21.0 % 11/03/16 20:10 Sodium 135 mmol/L (132-148) 11/07/16 08:11 Potassium 3.7 mmol/L (3.6-5.0) 11/07/16 08:11 Chloride 96 mmol/L (98-107) L 11/07/16 08:11 Carbon Dioxide 35 mmol/L (21-33) H 11/07/16 08:11 Anion Gap 8 (10-20) L 11/07/16 08:11 BUN 20 mg/dL (7-21) 11/07/16 08:11 Creatinine 0.7 mg/dL (0.5-1.4) 11/07/16 08:11 Est GFR ( Amer) > 60 11/07/16 08:11 Est GFR (Non-Af Amer) > 60 11/07/16 08:11 Random Glucose 80 mg/dL (70-110) 11/07/16 08:11 Calcium 8.1 mg/dL (8.4-10.5) L 11/07/16 08:11 Phosphorus 4.6 mg/dL (2.5-4.5) H 11/05/16 07:12 Magnesium 2.0 mg/dL (1.7-2.2) 11/05/16 07:12 Total Bilirubin 0.4 mg/dL (0.2-1.3) 11/03/16 20:20 AST 53 U/L (15-39) H 11/03/16 20:20 ALT 76 U/L (7-56) H 11/03/16 20:20 Alkaline Phosphatase 93 U/L (38-133) 11/03/16 20:20 Lactate Dehydrogenase 596 U/L (333-699) 11/03/16 20:20 Total Creatine Kinase 22 U/L (35-230) L 11/03/16 20:20 Troponin I < 0.01 ng/mL 11/03/16 20:20 NT-Pro-B Natriuret Pep 60.9 pg/mL (0-450) 11/03/16 20:20 Total Protein 6.5 g/dL (5.8-8.3) 11/03/16 20:20 Albumin 3.4 g/dL (3.0-4.8) 11/03/16 20:20 Globulin 3.1 gm/dL 11/03/16 20:20 Albumin/Globulin Ratio 1.1 (1.1-1.8) 11/03/16 20:20 Arterial Blood Potassium 3.3 mmol/L (3.6-5.2) L 11/03/16 20:10 Alcohol, Quantitative 110 mg/dL (0-10) H 11/03/16 20:15 - Hospital Course Hospital Course: Ms. Chambers is a 46 year old female with PMH COPD (non-compliant with meds), IVDA (heroin), hepatitis C (known and untreated), umbilical hernia, ETOH and tobacco abuse who presented to the hospital for evaluation and treatment of SOB. The patient was just discharged a couple days ago and when asked if she had been compliant with her medications, she responded that she never got her medications before leaving. When checked with the pharmacy, they state that they attempted to deliver the meds to her hospital bed, but she told them that she would get it from them later, and then never returned. In ED, pt was noted to be hypercapneic, hypoxemic compensated with elevated bicarb. She was placed on Duonebs and solumedrol, with albuterol pump PRN. Pt admitted to heavy use of ETOH and tobacco use. ETOH level was elevated. The patient's presentation of sob and sinus tachycardia was worrying for a PE and so a CTA chest w/ contrast was done and showed no evidence of PE. The patient was also started on the CIWA protocol in case withdrawals were to occur. Pt transferred to medical floors for further management. On the floors, the patient could only speak in short sentences and was wheezing on exam. several abrasions on the pt's knees and arms were noted, and the pt stated that they were from falls she suffered when drunk. The patient was on 2L O2 NC but several times was seen without the NC on. The pt's BP was noted to be a bit high, and so NS was discountinued, HHD was started and when still elevated , pt was placed on Lisinopril 5mg. Blood cultures came back negative, solumedrol was tapered, and Librium was added and Ativan was changed to PRN. Patient stated that she felt like she was shaking, but did not display any tremors, and denied any visual hallucinations. Pt was maintained on thiamine, folic acid and a multivitamin. This morning, the patient was feeling better, with the wheezing and the withdrawal symptoms resolved. Leukocytosis was present but is attributed to the use of solumedrol. The patient was counselled about stopping smoking and ETOH use but pt seems hopeless as she's been abusing the substances for a long time. Pt was advised to followup at our [facility] clinic within ONE WEEK to discuss her asthma, to followup at [facility] for treatment and management of amber hepatitis C. and was given prescriptions for Medrol dose pack, albuterol pump, Levaquin, Lisinopril, Benadryl,multivitamins, and nicotine patches. - Date & Time of H&P Date of H&P: 11/04/16 Time of H&P: 01:30 Discharge Exam - Head Exam Head Exam: NORMAL INSPECTION, NORMOCEPHALIC - Eye Exam Eye Exam: EOMI, Normal appearance, PERRL Pupil Exam: NORMAL ACCOMODATION - ENT Exam ENT Exam: Mucous Membranes Moist, Normal Exam - Neck Exam Neck exam: Normal Inspection - Respiratory Exam Respiratory Exam: Clear to PA & Lateral, NORMAL BREATHING PATTERN, UNREMARKABLE. absent: Accessory Muscle Use, Chest Wall Tenderness, Decreased Breath Sounds, Prolonged Expiratory Phase, Rales, Rhonchi, Wheezes, Respiratory Distress, Stridor Additional comments: pt noted to breathe through a pursed lip to sound like wheezing, but when distracted, her lungs are clear b/l - Cardiovascular Exam Cardiovascular Exam: RRR, +S1, +S2. absent: Diastolic murmur, Gallop, JVD, Rubs , Systolic Murmur - GI/Abdominal Exam GI & Abdominal Exam: Normal Bowel Sounds, Soft, Unremarkable. absent: Distended , Tenderness - Extremities Exam Extremities exam: full ROM, normal capillary refill, pedal pulses present - Back Exam Back exam: FULL ROM, NORMAL INSPECTION Additional comments: large fibroma/skin tag noted on the back - Neurological Exam Neurological exam: Alert, Normal Gait, Oriented x3, Reflexes Normal - Psychiatric Exam Psychiatric exam: Normal Affect, Normal Mood - Skin Skin Exam: Normal Color, Warm Discharge Plan - Discharge Medications Prescriptions: Albuterol HFA [Ventolin HFA 90 mcg/actuation (8 g)] 2 puff IH [id number] #2 puff DiphenhydrAMINE [Benadryl] 25 mg PO Q6 PRN #20 cap PRN Reason: Itching / Pruritus Folic Acid 1 mg PO DAILY #7 tab levoFLOXacin [Levaquin] 500 mg PO DAILY #3 tab Lisinopril [Zestril] 5 mg PO DAILY #7 tab Methylprednisolone [Medrol Dose Pack (21 tabs)] 4 mg PO DAILY #21 mg Multimineral/Multivitamin [Therapeutic-M Tab] 1 tab PO 0800 #7 tab Nicotine 14 mg/24 hr [Nicoderm CQ] 1 patch TD DAILY #7 patch Thiamine [Vitamin B1 Tab] 100 mg PO DAILY #7 tab - Follow Up Plan Condition: STABLE Disposition: HOME/ ROUTINE Instructions: Asthma (DC), How to Stop Smoking (DC), Cigarette Smoking and Your Health (GEN), COPD (Chronic Obstructive Pulmonary Disease) (DC), Abuse of Alcohol (DC) Additional Instructions: Ms. Chambers, You have been treated for a complicated course of asthma (chronic obstructive pulmonary disease). Our recommendations 1. Please followup at our clinic within ONE WEEK. You should discuss your asthma with them as well as your history of Hepatitis C infection. 2. Please followup at [facility] for treatment and management of your hepatitis C. 3. Meds: Take the Medrol dose pack as explained on the package for your shortness of breath Take your albuterol pump whenever you feel short of breath (asthma) Take Levaquin once daily for three days, which is an antibiotic Take your Lisinopril daily for your high blood pressure Take your Benadryl whenever you feel itchy Please use the nicotine patches provided Take your multivitamins that are provided daily As we discussed, it is important for you to avoid smoking, drinking ETOH and doing any drugs so as to not aggravate your condition. If you feel severely short of breath, feel chest pain or palpitations, please go to the ER for further workup. Otherwise, please make an appointment at our clinic and come in for your free checkup within 1 week of discharge. Thank you Alayna Ware, PGY1 <Juli Louise - Last Filed: 11/08/16 15:59> Provider - Provider Date of Admission: 11/05/16 10:58 Attending physician: Juli Louise MD Hospital Course - Lab Results Lab Results: Most Recent Lab Values WBC 22.0 10^3/ul (4.5-11.0) H 11/07/16 08:11 RBC 4.10 10^6/uL (3.5-6.1) 11/07/16 08:11 Hgb 13.5 gm/dL (12.0-16.0) 11/07/16 08:11 Hct 40.7 % (36.0-48.0) 11/07/16 08:11 MCV 99.3 fL (80.0-105.0) 11/07/16 08:11 MCH 32.9 pg (25.0-35.0) 11/07/16 08:11 MCHC 33.2 g/dl (31.0-37.0) 11/07/16 08:11 RDW 13.7 % (11.5-14.5) 11/07/16 08:11 Plt Count 302 10^3/uL (120.0-450.0) 11/07/16 08:11 MPV 9.9 fl (7.0-11.0) 11/07/16 08:11 Gran % 87.1 % (50.0-68.0) H 11/06/16 07:00 Lymph % (Auto) 7.0 % (22.0-35.0) L 11/06/16 07:00 Crisp % (Auto) 5.7 % (1.0-6.0) 11/06/16 07:00 Eos % (Auto) 0.1 % (1.5-5.0) L 11/06/16 07:00 Baso % (Auto) 0.1 % (0.0-3.0) 11/06/16 07:00 Gran # 20.31 (1.4-6.5) H 11/06/16 07:00 Lymph # 1.6 (1.2-3.4) 11/06/16 07:00 Crisp # 1.3 (0.1-0.6) H 11/06/16 07:00 Eos # 0.0 (0.0-0.7) 11/06/16 07:00 Baso # 0.03 K/mm3 (0.0-2.0) 11/06/16 07:00 Neutrophils % (Manual) 72 % (50.0-70.0) H 11/07/16 08:11 Band Neutrophils % 7 % (0-2) H 11/07/16 08:11 Lymphocytes % (Manual) 16 % (22.0-35.0) L 11/07/16 08:11 Monocytes % (Manual) 1 % (1.0-6.0) 11/07/16 08:11 Eosinophils % (Manual) 4 % (0.0-3.0) H 11/07/16 08:11 Platelet Evaluation Normal (NORMAL) 11/07/16 08:11 D-Dimer, Quantitative 0.73 mg/L FEU (0-0.50) H 11/03/16 22:20 pCO2 48 mm/Hg (35-45) H 11/03/16 20:10 pO2 69.0 mm/Hg (80-100) L 11/03/16 20:10 HCO3 28.4 mmol/L (21-28) H 11/03/16 20:10 ABG pH 7.38 (7.35-7.45) 11/03/16 20:10 ABG Total CO2 29.9 mmol.L (22-28) H 11/03/16 20:10 ABG O2 Saturation 96.9 % (95-98) 11/03/16 20:10 ABG Base Excess 2.5 mmol/L (-2.0-3.0) 11/03/16 20:10 ABG Potassium 3.3 mmol/L (3.6-5.2) L 11/03/16 20:10 Sodium 140.0 mmol/L (132-148) 11/03/16 20:10 Chloride 106.0 mmol/L (98-107) 11/03/16 20:10 Glucose 98 mg/dl (65-105) 11/03/16 20:10 Lactate 1.4 mmol/L (0.7-2.1) 11/03/16 20:10 FiO2 21.0 % 11/03/16 20:10 Sodium 135 mmol/L (132-148) 11/07/16 08:11 Potassium 3.7 mmol/L (3.6-5.0) 11/07/16 08:11 Chloride 96 mmol/L (98-107) L 11/07/16 08:11 Carbon Dioxide 35 mmol/L (21-33) H 11/07/16 08:11 Anion Gap 8 (10-20) L 11/07/16 08:11 BUN 20 mg/dL (7-21) 11/07/16 08:11 Creatinine 0.7 mg/dL (0.5-1.4) 11/07/16 08:11 Est GFR ( Amer) > 60 11/07/16 08:11 Est GFR (Non-Af Amer) > 60 11/07/16 08:11 Random Glucose 80 mg/dL (70-110) 11/07/16 08:11 Calcium 8.1 mg/dL (8.4-10.5) L 11/07/16 08:11 Phosphorus 4.6 mg/dL (2.5-4.5) H 11/05/16 07:12 Magnesium 2.0 mg/dL (1.7-2.2) 11/05/16 07:12 Total Bilirubin 0.4 mg/dL (0.2-1.3) 11/03/16 20:20 AST 53 U/L (15-39) H 11/03/16 20:20 ALT 76 U/L (7-56) H 11/03/16 20:20 Alkaline Phosphatase 93 U/L (38-133) 11/03/16 20:20 Lactate Dehydrogenase 596 U/L (333-699) 11/03/16 20:20 Total Creatine Kinase 22 U/L (35-230) L 11/03/16 20:20 Troponin I < 0.01 ng/mL 11/03/16 20:20 NT-Pro-B Natriuret Pep 60.9 pg/mL (0-450) 11/03/16 20:20 Total Protein 6.5 g/dL (5.8-8.3) 11/03/16 20:20 Albumin 3.4 g/dL (3.0-4.8) 11/03/16 20:20 Globulin 3.1 gm/dL 11/03/16 20:20 Albumin/Globulin Ratio 1.1 (1.1-1.8) 11/03/16 20:20 Arterial Blood Potassium 3.3 mmol/L (3.6-5.2) L 11/03/16 20:10 Alcohol, Quantitative 110 mg/dL (0-10) H 11/03/16 20:15 Attending/Attestation - Attestation I have personally seen and examined this patient.: Yes I have fully participated in the care of the patient.: Yes I have reviewed all pertinent clinical information, including history, physical exam and plan: Yes Notes (Text): I have seen and examined patient at bedside. Agree with the above note with the following additions/ exceptions: Briefly, this is 46 year old female with history of COPD, Alcohol abuse, homeless, IVDA, tobacco use, known untreated Hep C who was admitted for COPD exacerbation. Patient feels better today. Denies any complaints. Still has mild expiratory wheeze. Patient continues to have expiratory wheeze however is slightly better. Today she is able to talk in sentences and is not hypoxic. She is non compliant with her medications. Last time, she never picked up medications from pharmacy. We will arrange for meds to beds. Will send patient home on prednisone taper, albuterol MDI, advair and levaquin. consult appreciated to arrange for [facility] however patient is refusing to go to [facility]. Patient was advised to follow up in [facility] clinic, [facility] or [facility] for Hep C treatment. Dr Juli Louise
== END 2016-11-07 14:33 | disposition home or self-care (01) | DRG 88 ==
LOC: ED 19:29 → ERH 11-04 01:33 → UNDOADMOB 11-04 01:33 → OBSVTOIN 11-04 01:33 → INTOOBSV 11-04 01:33 → 2RSO 11-04 04:42 → ERH 11-04 04:42 → OBSVTOIN 11-05 10:58 → ERH 11-05 10:58 → 2RSO 11-05 10:58
PROVIDERS: ADMIT Hospitalist; ATTEND Hospitalist
PROC: 3E0F7GC Introduction of Other Therapeutic Substance into Respiratory Tract, Via Natural or Artificial Opening (ICD-10-PCS; principal; 2016-11-04)
DX: J44.1 Chronic obstructive pulmonary disease with (acute) exacerbation (principal); K70.30 Alcoholic cirrhosis of liver without ascites; I10 Essential (primary) hypertension; F11.10 Opioid abuse, uncomplicated; B19.20 Unspecified viral hepatitis C without hepatic coma; R09.02 Hypoxemia; F10.10 Alcohol abuse, uncomplicated; Y90.5 Blood alcohol level of 100-119 mg/100 ml; D72.829 Elevated white blood cell count, unspecified; F41.9 Anxiety disorder, unspecified; L98.9 Disorder of the skin and subcutaneous tissue, unspecified; F17.210 Nicotine dependence, cigarettes, uncomplicated; K42.9 Umbilical hernia without obstruction or gangrene; Z91.14 Patient's other noncompliance with medication regimen; Z59.0 Homelessness

== ENCOUNTER 2016-12-06 21:01 | Observation (INO) | payer MEDICAID ==
[2016-12-06 21:02] VITALS: BMI 30.2
--- NOTE | 2016-12-06 21:10 | ED PDOC ---
Arrival/HPI - General Time Seen by Provider: 12/06/16 21:05 Historian: Patient - History of Present Illness Narrative History of Present Illness (Text): 12/06/16 21:09 Fani Chambers is a 45 year old female smoker, whose past medical history includes asthma, COPD, Hepatitis C, alcohol abuse, IV and drug abuse, who presents to the ED complaining of shortness of breath and wheezing today. Patient states symptoms are consistent with previous episodes of asthma. The patient denies any fever, chills, chest pain, abdominal pain, nausea, vomiting, diarrhea, urinary symptoms, back pain, neck pain, headache, dizziness, or any other complaints. Symptom Onset: Gradual Symptom Course: Unchanged Activities at Onset: Rest, Light Context: Home Past Medical History - Provider Review Nursing Documentation Reviewed: Yes - Infectious Disease Hx of Infectious Diseases: None - Tetanus Immunization Tetanus Immunization: Unknown - Cardiac Hx Cardiac Disorders: No - Pulmonary Hx Respiratory Disorders: Yes Hx Asthma: Yes Hx Bronchitis: Yes Hx Chronic Obstructive Pulmonary Disease (COPD): Yes Hx Emphysema: Yes Other/Comment: pneumothorax with lung surgery - Neurological Hx Neurological Disorder: No Hx Alzheimer's Disease: No HX Cerebrovascular Accident: No Hx Dementia: No Hx Dizziness: No Hx Meningitis: No Hx Migraine: No Hx Parkinson's Disease: No Hx Seizures: No Hx Transient Ischemic Attacks (TIA): No - HEENT Hx HEENT Disorder: No - Renal Hx Renal Disorder: No - Endocrine/Metabolic Hx Endocrine Disorders: Yes - Hematological/Oncological Hx Blood Disorders: Yes Hx Hepatitis C: Yes - Integumentary Hx Dermatological Disorder: Yes (Multiple scabs, scratches covering body) - Musculoskeletal/Rheumatological Hx Musculoskeletal Disorders: No Hx Falls: Yes - Gastrointestinal Hx Gastrointestinal Disorders: No Other/Comment: Umbilical hernia present - Genitourinary/Gynecological Hx Genitourinary Disorders: No Hx Sexually Transmitted Diseases: Yes (trichomonas) - Psychiatric Hx Psychophysiologic Disorder: Yes Hx Anxiety: Yes Hx Substance Use: Yes (heroin) Other/Comment: substance abuse, etoh - Surgical History Hx Appendectomy: Yes Hx Tonsillectomy: Yes Other/Comment: "lung surgery" - Anesthesia Hx Anesthesia: Yes Hx Anesthesia Reactions: No Hx Malignant Hyperthermia: No - Suicidal Assessment Feels Threatened In Home Enviroment: No Family/Social History - Physician Review Nursing Documentation Reviewed: Yes Family/Social History: Unknown Family HX Smoking Status: Heavy Smoker > 10 Cigarettes Daily Hx Alcohol Use: Yes (drinks "as much as (she) can afford") Hx Substance Use: Yes (heroin) Substance used: HEROINE Hx Substance Use Treatment: Yes Allergies/Home Meds Allergies/Adverse Reactions: Allergies No Known Allergies Allergy (Verified 11/03/16 19:34) Review of Systems - Physician Review All systems were reviewed & negative as marked: Yes - Review of Systems Constitutional: Normal. absent: Fevers Eyes: Normal ENT: Normal Respiratory: SOB. absent: Cough Cardiovascular: Normal. absent: Chest Pain Gastrointestinal: Normal. absent: Abdominal Pain, Diarrhea, Nausea, Vomiting Genitourinary Female: Normal. absent: Dysuria, Frequency, Hematuria, Urine Output Changes Musculoskeletal: Normal. absent: Back Pain, Neck Pain Skin: Normal. absent: Rash Neurological: Normal. absent: Headache, Dizziness Endocrine: Normal Hemo/Lymphatic: Normal Psychiatric: Normal Physical Exam Vital Signs Reviewed: Yes Vital Signs Temp Pulse Resp BP Pulse Ox 12/07/16 05:59 78 18 119/85 99 12/07/16 03:08 98.2 F 12/06/16 22:04 91 H 20 108/62 97 12/06/16 21:53 20 Temperature: Afebrile Blood Pressure: Normal Pulse: Regular Respiratory Rate: Normal Appearance: Positive for: Well-Appearing, Non-Toxic, Comfortable Pain Distress: None Mental Status: Positive for: Alert and Oriented X 3 - Systems Exam Head: Present: Atraumatic, Normocephalic Pupils: Present: PERRL Extroacular Muscles: Present: EOMI Conjunctiva: Present: Normal Mouth: Present: Moist Mucous Membranes Neck: Present: Normal Range of Motion Respiratory/Chest: Present: Wheezes (Slight wheeze). No: Respiratory Distress, Accessory Muscle Use Cardiovascular: Present: Regular Rate and Rhythm, Normal S1, S2. No: Murmurs Abdomen: Present: Normal Bowel Sounds. No: Tenderness, Distention, Peritoneal Signs Back: Present: Normal Inspection Upper Extremity: Present: Normal Inspection. No: Cyanosis, Edema Lower Extremity: Present: Normal Inspection. No: Edema Neurological: Present: GCS=15, CN II-XII Intact, Speech Normal Skin: Present: Warm, Dry, Normal Color. No: Rashes Psychiatric: Present: Alert, Oriented x 3, Normal Insight, Normal Concentration Medical Decision Making ED Course and Treatment: 12/06/16 21:09 Impression: 46 year old female complaining of shortness of breath. Differential Diagnosis included but are not limited to: asthma Plan: -- EKG -- Duoneb -- Reassess and disposition Prior Visits: Notes and results from previous visits were reviewed. On 11/03/2016, pt presented [place] shortness of breath, wheezing, and coughing. Pt was admitted to the hospital for further evaluation. - EKG Interpretation Interpreted by ED Physician: Yes Type: 12 lead EKG - Medication Orders Current Medication Orders: Discontinued Medications Albuterol/Ipratropium (Duoneb 3 Mg/0.5 Mg (3 Ml) Ud) 3 ml IH ONCE STA Stop: 12/06/16 21:13 Last Admin: 12/06/16 21:21 Dose: 3 ml Albuterol/Ipratropium (Duoneb 3 Mg/0.5 Mg (3 Ml) Ud) 3 ml IH ONCE STA Stop: 12/06/16 22:20 Last Admin: 12/06/16 22:30 Dose: 3 ml Albuterol/Ipratropium (Duoneb 3 Mg/0.5 Mg (3 Ml) Ud) 3 ml IH ONCE STA Stop: 12/07/16 03:33 Last Admin: 12/07/16 04:00 Dose: 3 ml Prednisone (Prednisone Tab) 60 mg PO ONCE STA Stop: 12/07/16 04:21 Last Admin: 12/07/16 05:04 Dose: 60 mg ED OBSERVATION Discharge: Yes Date of observation admission: 12/06/16 Time of observation admission: 21:10 - Observation admission statement Patient is being placed in observation because:: asthma - Goals of Observation Goals of observation are:: treatment of symptoms - Progress Note Progress Note: 12/06/16 21:10 Pt presented for shortness of breath/asthma. Will observe pending improvement of symptoms. 12/06/16 21:58 Reviewed EKG, NSR at [address]-segment elevations or depressions, no T-wave inversions, normal intervals. 12/06/16 23:55 Pt awake, no acute distress. 12/07/16 01:55 Pt sleeping, no acute distress. 12/07/16 03:34 Pt symptoms have improved, however still with a slight wheeze. Prednisone ordered. 12/07/16 05:26 Pt sleeping, no acute distress. 12/07/16 06:11 On reevaluation the patient feels better and is in no acute distress. Patient is stable for discharge. Patient was instructed to follow up with physician/ clinic in 1-2 days or return if symptoms persist/worsen or new concerning symptoms arise. - Scribe Statement The provider has reviewed the documentation as recorded by the Scribclive Rosales Provider Scribe Attestation: All medical record entries made by the Scribe were at my direction and personally dictated by me. I have reviewed the chart and agree that the record accurately reflects my personal performance of the history, physical exam, medical decision making, and the department course for this patient. I have also personally directed, reviewed, and agree with the discharge instructions and disposition. Disposition/Present on Arrival - Present on Arrival Any Indicators Present on Arrival: No History of DVT/PE: No History of Uncontrolled Diabetes: No Urinary Catheter: No History Surgical Site Infection Following: None - Disposition Have Diagnosis and Disposition been Completed?: Yes Diagnosis: COPD exacerbation Disposition: HOME/ ROUTINE Disposition Time: 06:13 Patient Plan: Discharge Condition: GOOD
[2016-12-06] MEDS ORDERED: Albuterol-Ipratrop 3 mg / 0.5 (3 ml) UD IH STA ×2 (21:12→22:19)
[2016-12-07 03:13] VITALS: TEMP 98.2
[2016-12-07] MEDS ORDERED: Albuterol-Ipratrop 3 mg / 0.5 (3 ml) UD IH STA (03:32)
[2016-12-07 05:59] VITALS: BP 119/85; PULSE 78; RESP 18; O2SAT 99
--- NOTE | 2016-12-07 17:13 | CARD ---
APPROVED REPORT EKG Measurement Heart [id number] <Conclusion> Normal sinus rhythm Normal ECG
== END 2016-12-07 06:12 | disposition home or self-care (01) ==
LOC: ED 21:01 → EROBSV 21:10
PROVIDERS: ADMIT Emergency Medicine; ATTEND Emergency Medicine
DX: J44.1 Chronic obstructive pulmonary disease with (acute) exacerbation (principal)
CPT/HCPCS: 93005; 99284; G0378

== ENCOUNTER 2017-01-29 12:58 | Inpatient (IN) | payer MEDICAID ==
[2017-01-29 13:04] VITALS: BMI 24.7
[2017-01-29] MEDS ORDERED: Albuterol-Ipratrop 3 mg / 0.5 (3 ml) UD ONE (13:12)
[2017-01-29] MEDS: Albuterol-Ipratrop 3 mg / 0.5 (3 ml) UD IH SCH ×4 (13:14→20:26)
--- NOTE | 2017-01-29 13:28 | ED PDOC ---
Arrival/HPI - General Chief Complaint: Shortness Of Breath Time Seen by Provider: 01/29/17 13:00 Historian: Patient Past Medical History - Provider Review Nursing Documentation Reviewed: Yes - Infectious Disease Hx of Infectious Diseases: None - Tetanus Immunization Tetanus Immunization: Unknown - Cardiac Hx Cardiac Disorders: No - Pulmonary Hx Respiratory Disorders: Yes Hx Asthma: Yes Hx Bronchitis: Yes Hx Chronic Obstructive Pulmonary Disease (COPD): Yes Hx Emphysema: Yes Other/Comment: pneumothorax with lung surgery - Neurological Hx Neurological Disorder: No Hx Alzheimer's Disease: No HX Cerebrovascular Accident: No Hx Dementia: No Hx Dizziness: No Hx Meningitis: No Hx Migraine: No Hx Parkinson's Disease: No Hx Seizures: No Hx Transient Ischemic Attacks (TIA): No - HEENT Hx HEENT Disorder: No - Renal Hx Renal Disorder: No - Endocrine/Metabolic Hx Endocrine Disorders: Yes - Hematological/Oncological Hx Blood Disorders: Yes Hx Hepatitis C: Yes - Integumentary Hx Dermatological Disorder: Yes (Multiple scabs, scratches covering body) - Musculoskeletal/Rheumatological Hx Musculoskeletal Disorders: No Hx Falls: Yes - Gastrointestinal Hx Gastrointestinal Disorders: No Other/Comment: Umbilical hernia present - Genitourinary/Gynecological Hx Genitourinary Disorders: No Hx Sexually Transmitted Diseases: Yes (trichomonas) - Psychiatric Hx Psychophysiologic Disorder: Yes Hx Anxiety: Yes Hx Substance Use: Yes (heroin) Other/Comment: substance abuse, etoh - Surgical History Hx Appendectomy: Yes Hx Tonsillectomy: Yes Other/Comment: "lung surgery" - Anesthesia Hx Anesthesia: Yes Hx Anesthesia Reactions: No Hx Malignant Hyperthermia: No - Suicidal Assessment Feels Threatened In Home Enviroment: No Family/Social History - Physician Review Nursing Documentation Reviewed: Yes Family/Social History: No Known Family HX Smoking Status: Heavy Smoker > 10 Cigarettes Daily Hx Alcohol Use: Yes (drinks "as much as (she) can afford") Hx Substance Use: Yes (heroin) Substance used: HEROINE Hx Substance Use Treatment: Yes Allergies/Home Meds Allergies/Adverse Reactions: Allergies No Known Allergies Allergy (Verified 11/03/16 19:34) Physical Exam - Physical Exam Narrative Physical Exam (Text): Head: Atraumatic. Normocephalic. Eyes: PERRL. EOMI. Conjunctivae are not pale. ENT: Mucous membranes are moist and intact. Oropharynx is clear and symmetric. Neck: Supple. Full ROM. No JVD. No lymphadenopathy. Cardiovascular: Regular rate. Regular rhythm. No murmurs, rubs, or gallops. Distal pulses are 2+ and symmetric. Pulmonary/Chest: No evidence of respiratory distress. Clear to auscultation bilaterally. No wheezing, rales or rhonchi. Abdominal: Soft and non-distended. There is no tenderness. No rebound, guarding, or rigidity. No organomegaly. Good bowel sounds. Back: No CVA tenderness. Extremities: No edema. No cyanosis. No clubbing. Full range of motion in all extremities. No calf tenderness. Skin: Skin is warm and dry. No petechiae. No purpura. Neurological: Alert, awake, and oriented to person, place, time, and situation. Normal speech. Psychiatric: Good eye contact. Normal interaction, affect, and behavior. Vital Signs Temp Pulse Resp BP Pulse Ox 01/29/17 13:06 24 01/29/17 13:03 98.0 F 97 H 20 116/78 94 L Medical Decision Making - RAD Interpretation Radiology Orders: 01/29/17 13:08 CHEST PORTABLE [RAD] Stat - Medication Orders Current Medication Orders: Albuterol/Ipratropium (Duoneb 3 Mg/0.5 Mg (3 Ml) Ud) 3 ml IH Q15M JACK Stop: 01/29/17 13:46 Last Admin: 01/29/17 13:14 Dose: 3 ml Discontinued Medications Methylprednisolone (Solu-Medrol) 125 mg IVP STAT STA Stop: 01/29/17 13:13 Disposition/Present on Arrival - Present on Arrival History of DVT/PE: No History of Uncontrolled Diabetes: No Urinary Catheter: No History of Decub. Ulcer: No History Surgical Site Infection Following: None - Disposition
[2017-01-29 13:41] LABS: ARTERIAL BLOOD GAS HCO3 24.8 mmol/L (21-28); ARTERIAL BLOOD GAS PH 7.38 (7.35-7.45)
--- NOTE | 2017-01-29 13:48 | ED PDOC ---
Arrival/HPI <Mery Colon - Last Filed: 01/29/17 15:47> <Mary Joy - Last Filed: 01/29/17 16:05> - General Chief Complaint: Shortness Of Breath Time Seen by Provider: 01/29/17 13:00 - History of Present Illness Narrative History of Present Illness (Text): 46 year old female with a past medical history significant for COPD, hepatitis C , asthma, substance abuse, "lung surgery" for pneumothorax, homelessness and general non-compliance who presents with 2 days of shortness of breath, productive cough, subjective fever/chills, and some chest tightness. She reports running out of her albuterol inhaler the past 2 day or so. She reports still smoking cigarettes and drinking alcohol; last drink was at 9:30 AM. She denies smoking or insufflating any illicit drugs that may have precipitated her COPD/worsened her already compromised respiratory status. 01/29/17 13:47 (Mery Colon) Past Medical History - Provider Review Nursing Documentation Reviewed: Yes - Infectious Disease Hx of Infectious Diseases: None - Tetanus Immunization Tetanus Immunization: Unknown - Cardiac Hx Cardiac Disorders: No - Pulmonary Hx Respiratory Disorders: Yes Hx Asthma: Yes Hx Bronchitis: Yes Hx Chronic Obstructive Pulmonary Disease (COPD): Yes Hx Emphysema: Yes Other/Comment: pneumothorax with lung surgery - Neurological Hx Neurological Disorder: No Hx Alzheimer's Disease: No HX Cerebrovascular Accident: No Hx Dementia: No Hx Dizziness: No Hx Meningitis: No Hx Migraine: No Hx Parkinson's Disease: No Hx Seizures: No Hx Transient Ischemic Attacks (TIA): No - HEENT Hx HEENT Disorder: No - Renal Hx Renal Disorder: No - Endocrine/Metabolic Hx Endocrine Disorders: Yes - Hematological/Oncological Hx Blood Disorders: Yes Hx Hepatitis C: Yes - Integumentary Hx Dermatological Disorder: Yes (Multiple scabs, scratches covering body) - Musculoskeletal/Rheumatological Hx Musculoskeletal Disorders: No Hx Falls: Yes - Gastrointestinal Hx Gastrointestinal Disorders: No Other/Comment: Umbilical hernia present - Genitourinary/Gynecological Hx Genitourinary Disorders: No Hx Sexually Transmitted Diseases: Yes (trichomonas) - Psychiatric Hx Psychophysiologic Disorder: Yes Hx Anxiety: Yes Hx Substance Use: Yes (heroin) Other/Comment: substance abuse, etoh - Surgical History Hx Appendectomy: Yes Hx Tonsillectomy: Yes Other/Comment: "lung surgery" - Anesthesia Hx Anesthesia: Yes Hx Anesthesia Reactions: No Hx Malignant Hyperthermia: No - Suicidal Assessment Feels Threatened In Home Enviroment: No <Mery Colon - Last Filed: 01/29/17 15:47> Family/Social History Family/Social History: Unknown Family HX Smoking Status: Heavy Smoker > 10 Cigarettes Daily Hx Alcohol Use: Yes (drinks "as much as (she) can afford") Hx Substance Use: Yes (heroin) Substance used: HEROINE Hx Substance Use Treatment: Yes <Mery Colon - Last Filed: 01/29/17 15:47> Allergies/Home Meds <Mery Colon - Last Filed: 01/29/17 15:47> <Mary Joy - Last Filed: 01/29/17 16:05> Allergies/Adverse Reactions: Allergies No Known Allergies Allergy (Verified 11/03/16 19:34) Review of Systems - Physician Review All systems were reviewed & negative as marked: Yes - Review of Systems Systems not reviewed;Unavailable: Respiratory Distress Constitutional: Fevers Eyes: absent: Vision Changes, Photophobia <IsaiahJerryreyes - Last Filed: 01/29/17 15:47> Vital Signs Temp Pulse Resp BP Pulse Ox 01/29/17 14:49 97 H 20 118/77 95 01/29/17 13:06 24 01/29/17 13:03 98.0 F 97 H 20 116/78 94 L Medical Decision Making <IsaiahJerryreyes - Last Filed: 01/29/17 15:47> - EKG Interpretation Interpreted by ED Physician: Yes Type: 12 lead EKG <Mary Joy - Last Filed: 01/29/17 16:05> ED Course and Treatment: EKG shows NSR with no ST-T wave changes. 3 doses of duonebulized (albuterol/ipratropium bromide) treatment administered and 125 mg of IV Solumderol administered. 01/29/17 14:23 Patient's breathing is still labored, non-tachypneic, with respiratory rate of 19 after 2 out of 3 duonebulized treatments. 01/29/17 14:45 IMPRESSION: No acute infiltrates. Bilateral old healed rib fracture deformities as above. 01/29/17 14:47 Labs and diagnostic test show a WBC of 10 and K of 3.2. Urine toxicology positive only for THC. Peak flow was 100, 110, and 120 L/min and three attempts with good effort exhibited by the patient. After maximal duonebulized and steroid treatment patient is still audibly wheezing, tachynpeic, with pursed lips, and an O2 saturation of 94% on room air. 01/29/17 15:09 46 year old patient with COPD/asthma who presents to [facility] for 2 days of worsening shortness of breath, wheezing, and a productive cough. =Despite being given maximal dose of inhaled duonebulized treatment and intravenous steroids, the patient remains tachypneic, in respiratory distress with audible wheezing. Case was discussed with Dr. Juli Louise who accepts the patient under hospitalist service. Exact disposition/floor of patient is to be determined. 01/29/17 15:22 (Mery Colon) 01/29/17 16:03 Patient seen and examined with medical staff credentialing coordinator. On examination she has diffuse wheezing, suboptimal peak flow. She continues to smoke. Denies chest pain. Denies leg pain or swelling. Denies hemoptysis or fever. Denies pain with deep breaths. On examination, mild respiratory distress noted. Multiple nebulizers, iv steroids given. After three nebulizers wheezing improved but persists. CXR reading reviewed. Afebrile. On re-exam not tachycardic or tachypneic. BP stable. Will admit for status asthmaticus to hosptialist service. (Mary Joy) - Lab Interpretations Lab Results: 01/29/17 13:49 01/29/17 13:49 Lab Results 01/29/17 13:58: Urine Opiates Screen Negative, Urine Methadone Screen Negative, Ur Barbiturates Screen Negative, Ur Phencyclidine Scrn Negative, Ur Amphetamines Screen Negative, U Benzodiazepines Scrn Negative, U Oth Cocaine Metabols Negative, U Cannabinoids Screen Positive H 01/29/17 13:58: Urine Color Yellow, Urine Appearance Clear, Urine pH 6.0, Ur Specific [place] 1.010, Urine Protein Negative, Urine Glucose (UA) Negative, Urine Ketones Negative, Urine Blood Negative, Urine Nitrate Negative, Urine Bilirubin Negative, Urine Urobilinogen 1.0 H, Ur Leukocyte Esterase Small H, Urine RBC Negative, Urine WBC 5 - 10, Ur Epithelial Cells 6 - 8, Amorphous Sediment Trace 01/29/17 13:49: Sodium 142, Chloride 103, Potassium 3.2 L, Carbon Dioxide 25, Anion Gap 17, BUN 5 L, Creatinine 0.6 L, Est GFR ( Amer) > 60, Est GFR ( Non-Af Amer) > 60, Random Glucose 100, Calcium 8.7, Total Bilirubin 0.7, AST 47 H, ALT 57 H, Alkaline Phosphatase 78, Lactate Dehydrogenase 411, Total Creatine Kinase 43, Troponin I < 0.01, NT-Pro-B Natriuret Pep 34.8, Total Protein 6.2, Albumin 3.5, Globulin 2.7, Albumin/Globulin Ratio 1.3 01/29/17 13:49: PT 10.4, INR 0.96, APTT 26.6 01/29/17 13:49: WBC 10.3 D, RBC 4.61, Hgb 15.0, Hct 44.6, MCV 96.7, MCH 32.5, MCHC 33.6, RDW 14.5, Plt Count 336, MPV 9.7, Gran % 54.5, Lymph % (Auto) 34.0, [place] % (Auto) 9.3 H, Eos % (Auto) 1.8, Baso % (Auto) 0.4, Gran # 5.60, Lymph # 3.5 H, [place] # 1.0 H, Eos # 0.2, Baso # 0.04 01/29/17 13:38: pCO2 42, pO2 67.0 L, HCO3 24.8, ABG pH 7.38, ABG Total CO2 26.1 , ABG O2 Saturation 95.6, ABG Base Excess -0.4, ABG Potassium 2.6 L, Sodium 141.0, Chloride 107.0, Glucose 97, Lactate 2.5 H, FiO2 21.0, Arterial Blood Potassium 2.6 L - RAD Interpretation Radiology Orders: 01/29/17 13:08 CHEST PORTABLE [RAD] Stat - EKG Interpretation EKG Interpretation (Text): EKG at 13:17 normal sinus rhythm rate of [address] elevations (Mary Joy) - Medication Orders Current Medication Orders: Nicotine (Nicoderm Cq) 1 patch TD DAILY JACK Last Admin: 01/29/17 15:40 Dose: 1 patch MAR Transdermal Patch Site Document 01/29/17 15:40 GMD (Rec: 01/29/17 15:41 GMD [facility] [id number]) Transdermal Patch Site Transdermal Patch Site Left Outer Upper Arm Discontinued Medications Albuterol/Ipratropium (Duoneb 3 Mg/0.5 Mg (3 Ml) Ud) 3 ml IH Q15M JACK Stop: 01/29/17 13:46 Last Admin: 01/29/17 13:48 Dose: 3 ml Methylprednisolone (Solu-Medrol) 125 mg IVP STAT STA Stop: 01/29/17 13:13 Last Admin: 01/29/17 13:45 Dose: 125 mg IVP Administration Document 01/29/17 13:45 GMD (Rec: 01/29/17 13:45 GMD [facility] [id number]) Charges for Administration # of IVP Administrations 1 Potassium Chloride (K-Dur 20 Meq Er Tab) 40 meq PO STAT STA Stop: 01/29/17 14:15 Last Admin: 01/29/17 14:47 Dose: 40 meq Disposition/Present on Arrival - Present on Arrival Any Indicators Present on Arrival: No History of DVT/PE: No History of Uncontrolled Diabetes: No Urinary Catheter: No History of Decub. Ulcer: No History Surgical Site Infection Following: None - Disposition Have Diagnosis and Disposition been Completed?: Yes Disposition Time: 15:28 Patient Plan: Telemetry <Mery Colon - Last Filed: 01/29/17 15:47> - Disposition Have Diagnosis and Disposition been Completed?: Yes Patient Plan: Admission <Mary Joy - Last Filed: 01/29/17 16:05> - Disposition Diagnosis: Asthma attack, Status asthmaticus Disposition: HOSPITALIZED Patient Problems: Current Active Problems Problem Status Onset Asthma attack Acute Condition: GUARDED Forms: [employer] (Pashto)
[2017-01-29 14:01] LABS: BASO # 0.04 K/mm3 (0.0-2.0); BASO % 0.4 % (0.0-3.0); EOS # 0.2 (0.0-0.7); EOS % 1.8 % (1.5-5.0); GRAN # 5.6 (1.4-6.5); GRAN % 54.5 % (50.0-68.0); HEMATOCRIT 44.6 % (36.0-48.0); LYMPH # 3.5 (1.2-3.4); MEAN CELL VOLUME 96.7 fl (80.0-105.0); MEAN CORPUSCULAR HEMOGLOBIN 32.5 pg (25.0-35.0); MEAN CORPUSCULAR HGB CONC 33.6 g/dl (31.0-37.0); MEAN PLATELET VOLUME 9.7 fl (7.0-11.0); MONO % 9.3 % (1.0-6.0); RED CELL DISTRIBUTION WIDTH 14.5 % (11.5-14.5); WHITE BLOOD COUNT 10.3 10^3/ul (4.5-11.0)
[2017-01-29 14:03] LABS: ALB/GLOB RATIO 1.3 (1.1-1.8); ALKALINE PHOSPHATASE 78 U/L (38-126); ALT/SGPT 57 U/L (7-56); AST/SGOT 47 U/L (14-36); BILIRUBIN,TOTAL 0.7 mg/dL (0.2-1.3); BLOOD UREA NITROGEN 5 mg/dL (7-21); CALCIUM 8.7 mg/dL (8.4-10.5); CARBON DIOXIDE 25 mmol/L (21-33); CHLORIDE 103 mmol/L (98-107); GFR AFRICAN-AMERICAN > 60; GLUCOSE,RANDOM 100 mg/dL (70-110); POTASSIUM 3.2 mmol/L (3.6-5.0); SODIUM 142 mmol/L (132-148); TOTAL PROTEIN 6.2 g/dL (5.8-8.3)
[2017-01-29 14:04] LABS: INR 0.96 (0.93-1.08); PARTIAL THROMBOPLASTIN TIME 26.6 Seconds (23.7-30.8)
[2017-01-29 14:07] LABS: URINE BILIRUBIN NEGATIVE (NEGATIVE); URINE BLOOD NEGATIVE (NEGATIVE); URINE GLUCOSE (UA) NEGATIVE (NEGATIVE); URINE KETONE NEGATIVE (NEGATIVE); URINE LEUKOCYTE ESTERASE SMALL Leu/uL (NEGATIVE); URINE PROTEIN NEGATIVE mg/dL (<30 mg/dL)
[2017-01-29 14:12] LABS: URINE APPEARANCE CLEAR (CLEAR); URINE COLOR YELLOW (YELLOW)
[2017-01-29] MEDS ORDERED: Potassium Chloride 20 mEq ER Tab PO STA (14:14)
[2017-01-29 14:16] LABS: URINE RBC NEGATIVE /hpf (0-2)
[2017-01-29 14:17] LABS: URINE AMORPHOUS SEDIMENT TRACE
[2017-01-29 14:22] LABS: TROPONIN I < 0.01 ng/mL
--- NOTE | 2017-01-29 14:31 | RAD ---
HISTORY: sob COMPARISON: Comparison chest dated 11/03/2016 FINDINGS: LUNGS: No active pulmonary disease. PLEURA: No significant pleural effusion identified, no pneumothorax apparent. CARDIOVASCULAR: Borderline cardiomegaly. OSSEOUS STRUCTURES: Mild multilevel degenerative spondylosis of the thoracic spine. Old healed fracture deformities of the right posterolateral 7th and 8th ribs noted. Additionally, there also appears to be old healed fracture deformity of the left posterolateral 5th rib with bony bridge extending from the 5th through the 6 posterior ribs. VISUALIZED UPPER ABDOMEN: Normal. OTHER FINDINGS: None. IMPRESSION: No acute infiltrates. Bilateral old healed rib fracture deformities as above.
[2017-01-29 16:08] LABS: MAGNESIUM 1.8 mg/dL (1.7-2.2)
[2017-01-29 16:18] LABS: PHOSPHOROUS 3.5 mg/dL (2.5-4.5)
[2017-01-29] MEDS ORDERED: Multivitamin (MVI) 10 ML, Thiamine 100 MG, Folic Acid 1 MG in Sodium Chloride 0.9% 1,00... IV ONE (16:24)
[2017-01-29] MEDS ORDERED: methylPREDNISolone 40 MG in Sodium Chloride 0.9% 100 ML IVPB SCH (16:30)
--- NOTE | 2017-01-29 16:36 | CP.PCM.HP ---
<Joe Mathur - Last Filed: 01/29/17 18:01> History of Present Illness - History of Present Illness History of Present Illness: This is a 46 year old female with past medical history of COPD, pneumothorax(s/ p Pleurocendesis), Hepatitis C, ETOh abuse, and liver cirrhosis who presents to the emergency department with complaints of shortness of breath and productive cough(yellow phlegm). The patient also is complaining of chest tightness that she reports started the same time as her shortness of breath. The patient reports running out of her COPD medications two days ago when the symptoms started. She denies any alleviating or modifying factors. The patient is homeless and reports not having money to purchase the medications. The patient denies any abdominal pain, lightheadedness, dizziness, fevers, chills, syncopal episodes, dysuria, numbness or tingling in the hands or feet, or any other complaints. PMD: None PMHx: See HPI Medications: None Surghx: Lap appendectomy, Tonsillectomy Allergies: NKDA Hospitalhx: 1 [place] ago [place] [facility] [place] Social hx: Alchol abuse(drinks 4-5 24oz liquor drinks a day),Current smoker( 30yr ppd). Former heroine and cocaine abuser. ED Course: Patient given 3 doses of duonebulized (albuterol/ipratropium bromide ) treatment administered and 125 mg of IV Solumderol administered. CXR was negative for active pulmonary disease/infiltrates. Present on Admission - Present on Admission Any Indicators Present on Admission: No Review of Systems - Constitutional Constitutional: As Per HPI - EENT Eyes: As Per HPI Ears: As Per HPI Nose/Mouth/Throat: As Per HPI - Cardiovascular Cardiovascular: As Per HPI - Respiratory Respiratory: As Per HPI - Gastrointestinal Gastrointestinal: As Per HPI - Genitourinary Genitourinary: As Per HPI - Musculoskeletal Musculoskeletal: As Per HPI - Integumentary Integumentary: As Per HPI - Neurological Neurological: As Per HPI - Psychiatric Psychiatric: As Per HPI - Endocrine Endocrine: As Per HPI Past Patient History - Infectious Disease Hx of Infectious Diseases: None - Tetanus Immunizations Tetanus Immunization: Unknown - Past Medical History & Family History Past Medical History?: Yes - Past Social History Smoking Status: Heavy Smoker > 10 Cigarettes Daily - CARDIAC Hx Cardiac Disorders: No - PULMONARY Hx Respiratory Disorders: Yes Hx Asthma: Yes Hx Bronchitis: Yes Hx Chronic Obstructive Pulmonary Disease (COPD): Yes Hx Emphysema: Yes Other/Comment: pneumothorax with lung surgery - NEUROLOGICAL Hx Neurological Disorder: No Hx Alzheimer's Disease: No HX Cerebrovascular Accident: No Hx Dementia: No Hx Dizziness: No Hx Meningitis: No Hx Migraine: No Hx Parkinson's Disease: No Hx Seizures: No Hx Transient Ischemic Attacks (TIA): No - HEENT Hx HEENT Problems: No - RENAL Hx Chronic Kidney Disease: No - ENDOCRINE/METABOLIC Hx Endocrine Disorders: Yes - HEMATOLOGICAL/ONCOLOGICAL Hx Blood Disorders: Yes Hx Hepatitis C: Yes - INTEGUMENTARY Hx Dermatological Problems: Yes (Multiple scabs, scratches covering body) - MUSCULOSKELETAL/RHEUMATOLOGICAL Hx Musculoskeletal Disorders: No Hx Falls: Yes - GASTROINTESTINAL Hx Gastrointestinal Disorders: No Other/Comment: Umbilical hernia present - GENITOURINARY/GYNECOLOGICAL Hx Genitourinary Disorders: No Hx Sexually Transmitted Disorders: Yes (trichomonas) - PSYCHIATRIC Hx Psychophysiologic Disorder: Yes Hx Anxiety: Yes Hx Substance Use: Yes (heroin) Other/Comment: substance abuse, etoh - SURGICAL HISTORY Hx Appendectomy: Yes Hx Tonsillectomy: Yes Other/Comment: "lung surgery" - ANESTHESIA Hx Anesthesia: Yes Hx Anesthesia Reactions: No Hx Malignant Hyperthermia: No Meds Allergies/Adverse Reactions: Allergies Allergy/AdvReac Type Severity Reaction Status Date / Time No Known Allergies Allergy Verified 11/03/16 19:34 Physical Exam - Head Exam Head Exam: ATRAUMATIC, NORMAL INSPECTION, NORMOCEPHALIC - Eye Exam Eye Exam: EOMI, Normal appearance, PERRL. absent: Periorbital tenderness Pupil Exam: NORMAL ACCOMODATION, PERRL. absent: Irregular, Unequal - ENT Exam ENT Exam: Mucous Membranes Moist, Normal Exam. absent: Mucous Membranes Dry, Normal Oropharynx, TM's Normal Bilaterally - Neck Exam Neck exam: Positive for: Normal Inspection. Negative for: Lymphadenopathy, Meningismus, Thyromegaly - Respiratory Exam Respiratory Exam: Wheezes, NORMAL BREATHING PATTERN. absent: Accessory Muscle Use, Chest Wall Tenderness, Clear to Auscultation Bilateral - Cardiovascular Exam Cardiovascular Exam: REGULAR RHYTHM, +S1, +S2. absent: Gallop, Rubs - GI/Abdominal Exam GI & Abdominal Exam: Normal Bowel Sounds. absent: Diminished Bowel Sounds, Hypoactive Bowel Sounds, Organomegaly - Back Exam Back exam: NORMAL INSPECTION. absent: CVA tenderness (L), CVA tenderness (R), paraspinal tenderness - Neurological Exam Neurological exam: Alert, CN II-XII Intact, Normal Gait, Oriented x3, Reflexes Normal - Psychiatric Exam Psychiatric exam: Normal Affect, Normal Mood - Skin Skin Exam: Dry, Intact Results - Vital Signs Recent Vital Signs: Last Vital Signs Temp 98.0 F 01/29/17 13:03 Pulse 97 H 01/29/17 14:49 Resp 20 01/29/17 14:49 BP 118/77 01/29/17 14:49 Pulse Ox 95 01/29/17 14:49 - Labs Result Diagrams: 01/29/17 13:49 01/29/17 13:49 Assessment & Plan - Assessment and Plan (Free Text) Assessment: This is a 46 year old female with a past medical history of COPD, etoh abuse, Hepatitis C, Pneumothorax(s/p Pleurcendesis), liver cirrhosis who is being admitted for COPD exacerbation. Plan: 1.COPD exacerbation -CXR done in the E.D. negative for active pulmonary disease. -Patient 96% s/p 3 Duonebs. Continue Duonebs Q4. Will monitor 02 saturation closely. -IV Methylprednisolone 40mg Q8. -Singular 10MG Daily -Yuval Conroy 2.ETOH abuse -Patient showing initial signs of alcohol withdrawal. Patient reports drinking 4 -5 24 oz drinks of liquor per day. The patient's last drink was 9a.m. this morning. -Librium 25mg Q8 -Ativan 2gm Q2PRN -Banana bag -[facility] protocol -Seizure protocols -Will monitor closely. 3.Transaminitis -Likely secondary to alcohol abuse. -Will follow and trend lab values. -Avoid hepato-toxic drugs. 4.Hypokalemia -Potassium 3.2 upon admission -Mg and Phos ordered. Will f/u with results. -Will replete as necessary. Will follow up with repeat serial cmp's. GIppx -Protonix DVT/PE ppx -Heparin <Juli Louise - Last Filed: 02/06/17 13:06> Results - Vital Signs Recent Vital Signs: Last Vital Signs Temp 98.4 F 02/03/17 06:00 Pulse 84 02/03/17 06:00 Resp 22 02/03/17 06:00 BP 138/89 02/03/17 06:00 Pulse Ox 95 02/03/17 06:00 - Labs Result Diagrams: 02/03/17 06:52 02/03/17 06:52 Attending/Attestation - Attestation I have personally seen and examined this patient.: Yes I have fully participated in the care of the patient.: Yes I have reviewed all pertinent clinical information: Yes Notes (Text): I have seen and examined patient at bedside. Agree with the above note with the following additions/ exceptions: Briefly, this is 46 year old female with history of COPD, Alcohol abuse, homeless, IVDA, tobacco use, known untreated Hep C who was admitted for COPD exacerbation. Will start duonebs, solumedrol, singulair, tessalon perles and levaquin. Will start banana bag, librium and ativan. Will start CIWA protocol. Transaminitis is secondary to alcohol abuse. Avoid hepato toxic drugs. Will closely monitor electrolytes. Upon discharge patient will [place] with [facility] [place]. Patient was advised to follow up in [facility], [facility] or [facility] for Hep C treatment. Dr Juli Louise
[2017-01-29] MEDS ORDERED: MethylPREDNISolone 40 mg Vial IV STA (16:55)
[2017-01-29 17:48] LABS: VENOUS BLOOD PH 7.38 (7.32-7.43)
[2017-01-29 21:17] LABS: VENOUS BLOOD PH 7.46 (7.32-7.43)
[2017-01-29] MEDS: MethylPREDNISolone 40 mg Vial IV SCH (22:18)
[2017-01-30] MEDS: Albuterol-Ipratrop 3 mg / 0.5 (3 ml) UD IH SCH ×5 (01:25→21:30)
[2017-01-30] MEDS: MethylPREDNISolone 40 mg Vial IV SCH ×3 (05:27→21:30)
[2017-01-30] MEDS ORDERED: THIAMINE IV SCH (07:15)
[2017-01-30] MEDS ORDERED: FOLIC ACID IV SCH (07:15)
[2017-01-30] MEDS ORDERED: MULTIVITAMIN IV SCH (07:15)
[2017-01-30] MEDS ORDERED: [UNRECOGNIZED DRUG - OTHER] IV SCH (07:15)
[2017-01-30 07:53] LABS: BASO # 0.01 K/mm3 (0.0-2.0); BASO % 0.1 % (0.0-3.0); GRAN % 90.7 % (50.0-68.0); HEMATOCRIT 42.4 % (36.0-48.0); LYMPH # 1.1 (1.2-3.4); LYMPH % 7.2 % (22.0-35.0); MEAN CELL VOLUME 96.1 fl (80.0-105.0); MEAN CORPUSCULAR HEMOGLOBIN 32.4 pg (25.0-35.0); MEAN CORPUSCULAR HGB CONC 33.7 g/dl (31.0-37.0); MEAN PLATELET VOLUME 10.1 fl (7.0-11.0); MONO # 0.3 (0.1-0.6); PLATELET COUNT 336 10^3/uL (120.0-450.0); RED CELL DISTRIBUTION WIDTH 14.1 % (11.5-14.5); WHITE BLOOD COUNT 14.8 10^3/ul (4.5-11.0)
[2017-01-30 08:08] LABS: ALB/GLOB RATIO 1.3 (1.1-1.8); ALKALINE PHOSPHATASE 81 U/L (38-126); ALT/SGPT 55 U/L (7-56); AST/SGOT 32 U/L (14-36); BILIRUBIN,TOTAL 0.8 mg/dL (0.2-1.3); BLOOD UREA NITROGEN 8 mg/dL (7-21); CALCIUM 8.7 mg/dL (8.4-10.5); CARBON DIOXIDE 25 mmol/L (21-33); CHLORIDE 106 mmol/L (95-110); GFR AFRICAN-AMERICAN > 60; GLUCOSE,RANDOM 143 mg/dL (70-110); POTASSIUM 4.2 mmol/L (3.6-5.0); SODIUM 139 mmol/L (132-148); TOTAL PROTEIN 6.3 g/dL (5.8-8.3)
[2017-01-30 08:56] LABS: ANISOCYTOSIS SLIGHT; NEUTROPHIL 92 % (50.0-70.0); PLATELET ESTIMATE NORMAL (NORMAL)
[2017-01-30] MEDS ORDERED: Albuterol-Ipratrop 3 mg / 0.5 (3 ml) UD IH PRN (08:56)
[2017-01-30 08:57] LABS: PLATELET CLUMPS PRESENT; TOXIC GRANULATION 1+
[2017-01-30] MEDS: Multivitamin (MVI) 10 ML, Thiamine 100 MG, Folic Acid 1 MG in Sodium Chloride 0.9% 1,00... IV SCH ×2 (10:02→18:15)
[2017-01-30] MEDS ORDERED: guaiFENesin 100 mg/5 ml Syrup UD PO PRN (11:47)
[2017-01-30] MEDS ORDERED: levoFLOXacin 500 mg in D5W 500 MG/100 ML BAG IVPB SCH (12:00)
--- NOTE | 2017-01-30 12:01 | CP.PCM.PN ---
<Becki Graves - Last Filed: 01/30/17 12:14> Subjective - Date & Time of Evaluation Date of Evaluation: 01/30/17 Time of Evaluation: 11:58 - Subjective Subjective: Hospitalist Service Progress Note: Patient seen and examined at bedside. Per nursing, no acute events overnight. Patient anxious, still coughing with occasional phelgm. Shortness of breath is the same. Denies headaches, dizziness, cp, palpitations, abdominal pain, urinary symptoms, changes in bowel habits. Denies visual/auditory hallucinations. Objective - Vital Signs/Intake and Output Vital Signs (last 24 hours): Temp Pulse Resp BP Pulse Ox 98.9 F 93 H 20 145/95 H 100 01/30/17 06:00 01/30/17 11:07 01/30/17 06:00 01/30/17 06:00 01/30/17 06:00 Intake and Output: 01/30/17 01/30/17 06:59 18:59 Intake Total 500 Output Total 0 0 Balance 500 0 - Medications Medications: Current Medications Albuterol/Ipratropium (Duoneb 3 Mg/0.5 Mg (3 Ml) Ud) 3 ml IH [id number] [facility] Last Admin: 01/30/17 11:03 Dose: 3 ml Albuterol/Ipratropium (Duoneb 3 Mg/0.5 Mg (3 Ml) Ud) 3 ml IH Q2H PRN PRN Reason: Shortness of Breath Benzonatate (Tessalon Perles) 100 mg PO TID [facility] Last Admin: 01/30/17 09:18 Dose: 100 mg Chlordiazepoxide (Librium) 25 mg PO Q8 [facility] PRN Reason: Protocol Last Admin: 01/30/17 05:27 Dose: 25 mg Doxycycline Hyclate (Doryx) 100 mg PO BID [facility] PRN Reason: Protocol Last Admin: 01/30/17 09:18 Dose: 100 mg Folic Acid (Folic Acid) 1 mg PO DAILY [facility] Guaifenesin (Robitussin) 100 mg PO Q4H PRN PRN Reason: Cough Heparin Sodium (Porcine) (Heparin) 5,000 units SC Q12 [facility] PRN Reason: Protocol Last Admin: 01/30/17 09:18 Dose: 5,000 units Multivitamins/Vitamin C 10 ml/Thiamine HCl 100 mg/ Folic Acid 1 mg/ Sodium Chloride 1,011.2 mls @ 100 mls/hr IV .Q10H7M [facility] Last Admin: 01/30/17 10:02 Dose: 100 mls/hr Lorazepam (Ativan) 2 mg PO Q2 PRN; Protocol PRN Reason: Agitation Last Admin: 01/30/17 08:18 Dose: 2 mg Methylprednisolone (Solu-Medrol) 40 mg IV Q8 [facility] Last Admin: 01/30/17 05:27 Dose: 40 mg Montelukast Sodium (Singulair) 10 mg PO DAILY [facility] Last Admin: 01/30/17 09:18 Dose: 10 mg Multivitamins/Minerals (Therapeutic-M Tab) 1 tab PO 0800 [facility] Nicotine (Nicoderm Cq) 1 patch TD DAILY [facility] Last Admin: 01/30/17 09:18 Dose: 1 patch Thiamine HCl (Vitamin B1 Tab) 100 mg PO DAILY [facility] - Labs Labs: 01/30/17 07:50 01/30/17 07:50 PT 10.4 Seconds (9.9-11.8) 01/29/17 13:49 INR 0.96 (0.93-1.08) 01/29/17 13:49 APTT 26.6 Seconds (23.7-30.8) 01/29/17 13:49 - Constitutional Appears: Non-toxic, No Acute Distress - Head Exam Head Exam: ATRAUMATIC, NORMAL INSPECTION - Eye Exam Eye Exam: EOMI, Normal appearance Pupil Exam: NORMAL ACCOMODATION - ENT Exam ENT Exam: Mucous Membranes Moist - Neck Exam Neck Exam: Full ROM - Respiratory Exam Respiratory Exam: Wheezes, NORMAL BREATHING PATTERN. absent: Rales, Rhonchi - Cardiovascular Exam Cardiovascular Exam: Tachycardia, +S1, +S2 - GI/Abdominal Exam GI & Abdominal Exam: Soft. absent: Guarding, Rigid, Tenderness - Extremities Exam Extremities Exam: Full ROM, Normal Inspection - Back Exam Back Exam: NORMAL INSPECTION - Neurological Exam Neurological Exam: Alert, Awake, Normal Gait, Oriented x3 - Psychiatric Exam Psychiatric exam: Anxious, Normal Affect - Skin Skin Exam: Dry, Normal Color, Warm Assessment and Plan - Assessment and Plan (Free Text) Assessment: This is a 46 year old female with a past medical history of COPD, etoh abuse, Hepatitis C, Pneumothorax(s/p Pleurcendesis), liver cirrhosis who is being admitted for COPD exacerbation and ETOH withdrawal. Plan: 1. COPD exacerbation -CXR on admission negative for active pulmonary disease. -Continue to monitor 02 sats -Duonebs Q4H craig, Duonebs Q2H prn SOB -Abx: Doxycycline 100mg BID (day 2) -Continue IV Methylprednisolone 40mg Q8H -Singular 10MG Daily -Tessalon Pearls TID -Nicotine patch -Smoking cessation advised 2. Substance abuse/ETOH withdrawal -Currently homeless -Never been to AA or rehab, last drink was 01/29 at 9am -Continue Librium 25mg Q8H -Ativan 2gm Q2PRN -Continue Banana bag -Will start PO vitamins tomorrow -CIWA protocol, Seizure protocols -UTOX positive for cannibinoids -ETOH cessation advised -SW consulted, f/u recommendations 3. Transaminitis -Likely secondary to alcohol abuse. -Resolved -Avoid hepato-toxic drugs 4.Hypokalemia -Potassium 4.2 today -Will replete as necessary GI/DVT ppx -Protonix -Heparin <Rangasamy,Ajantha - Last Filed: 01/30/17 17:58> Objective - Vital Signs/Intake and Output Vital Signs (last 24 hours): Temp Pulse Resp BP Pulse Ox 98.5 F 70 18 140/57 L 100 01/30/17 12:00 01/30/17 12:00 01/30/17 12:00 01/30/17 12:00 01/30/17 06:00 Intake and Output: 01/30/17 01/30/17 06:59 18:59 Intake Total 500 Output Total 0 0 Balance 500 0 - Medications Medications: Current Medications Albuterol/Ipratropium (Duoneb 3 Mg/0.5 Mg (3 Ml) Ud) 3 ml IH [id number] [facility] Last Admin: 01/30/17 16:01 Dose: 3 ml Albuterol/Ipratropium (Duoneb 3 Mg/0.5 Mg (3 Ml) Ud) 3 ml IH Q2H PRN PRN Reason: Shortness of Breath Benzonatate (Tessalon Perles) 100 mg PO TID [facility] Last Admin: 01/30/17 17:44 Dose: 100 mg Chlordiazepoxide (Librium) 25 mg PO Q8 [facility] PRN Reason: Protocol Last Admin: 10/16/17 13:26 Dose: 25 mg Doxycycline Hyclate (Doryx) 100 mg PO BID [facility] PRN Reason: Protocol Last Admin: 01/30/17 17:44 Dose: 100 mg Folic Acid (Folic Acid) 1 mg PO DAILY [facility] Last Admin: 01/30/17 13:26 Dose: 1 mg Guaifenesin (Robitussin) 100 mg PO Q4H PRN PRN Reason: Cough Heparin Sodium (Porcine) (Heparin) 5,000 units SC Q12 [facility] PRN Reason: Protocol Last Admin: 01/30/17 09:18 Dose: 5,000 units Multivitamins/Vitamin C 10 ml/Thiamine HCl 100 mg/ Folic Acid 1 mg/ Sodium Chloride 1,011.2 mls @ 100 mls/hr IV .Q10H7M [facility] Last Admin: 01/30/17 10:02 Dose: 100 mls/hr Lorazepam (Ativan) 2 mg PO Q2 PRN; Protocol PRN Reason: Agitation Last Admin: 01/30/17 16:35 Dose: 2 mg Methylprednisolone (Solu-Medrol) 40 mg IV Q8 [facility] Last Admin: 01/30/17 13:27 Dose: 40 mg Montelukast Sodium (Singulair) 10 mg PO DAILY [facility] Last Admin: 01/30/17 09:18 Dose: 10 mg Multivitamins/Minerals (Therapeutic-M Tab) 1 tab PO 0800 [facility] Nicotine (Nicoderm Cq) 1 patch TD DAILY [facility] Last Admin: 01/30/17 09:18 Dose: 1 patch Thiamine HCl (Vitamin B1 Tab) 100 mg PO DAILY [facility] Last Admin: 01/30/17 13:26 Dose: 100 mg - Labs Labs: 01/30/17 07:50 01/30/17 07:50 PT 10.4 Seconds (9.9-11.8) 01/29/17 13:49 INR 0.96 (0.93-1.08) 01/29/17 13:49 APTT 26.6 Seconds (23.7-30.8) 01/29/17 13:49 Attending/Attestation - Attestation I have personally seen and examined this patient.: Yes I have fully participated in the care of the patient.: Yes I have reviewed all pertinent clinical information, including history, physical exam and plan: Yes Notes (Text): 01/30/17 17:55 Attending note; Patient seen and examined with resident. Patient is still complaining of cough and shortness of breath. Patient is a 46 year old female with a past medical history of COPD, etoh abuse , Hepatitis C, Pneumothorax(s/p Pleurcendesis), liver cirrhosis who is being admitted for COPD exacerbation and ETOH withdrawal. COPD exacerbation; continue DuoNeb, IV Steroids, doxycycline and Robitussin. Continue oxygen when necessary. Alcohol withdrawal; continue Ativan and Librium. Continue multivitamin, thiamine , folic acid. Smoking cessation/alcohol cessation is strongly advised. survey worker evaluation requested. Patient is currently homeless. Upon discharge the patient will be referred to [facility] [place]. 01/30/17 17:58
[2017-01-30 12:23] LABS: MAGNESIUM 1.7 mg/dL (1.7-2.2); PHOSPHOROUS 3.3 mg/dL (2.5-4.5)
--- NOTE | 2017-01-30 12:24 | CARD ---
APPROVED REPORT EKG Measurement Heart [id number] <Conclusion> Normal sinus rhythm Normal ECG
[2017-01-31] MEDS: Albuterol-Ipratrop 3 mg / 0.5 (3 ml) UD IH SCH ×7 (00:15→23:22)
[2017-01-31] MEDS: Multivitamin (MVI) 10 ML, Thiamine 100 MG, Folic Acid 1 MG in Sodium Chloride 0.9% 1,00... IV SCH (04:58)
[2017-01-31] MEDS: MethylPREDNISolone 40 mg Vial IV SCH (05:00)
[2017-01-31 07:16] LABS: BASO # 0.01 K/mm3 (0.0-2.0); GRAN # 18.99 (1.4-6.5); GRAN % 91.2 % (50.0-68.0); HEMATOCRIT 41.4 % (36.0-48.0); LYMPH # 1.1 (1.2-3.4); LYMPH % 5.2 % (22.0-35.0); MEAN CELL VOLUME 97.6 fl (80.0-105.0); MEAN CORPUSCULAR HEMOGLOBIN 32.3 pg (25.0-35.0); MEAN CORPUSCULAR HGB CONC 33.1 g/dl (31.0-37.0); MEAN PLATELET VOLUME 10.3 fl (7.0-11.0); MONO # 0.7 (0.1-0.6); MONO % 3.6 % (1.0-6.0); RED CELL DISTRIBUTION WIDTH 14.5 % (11.5-14.5); WHITE BLOOD COUNT 20.8 10^3/ul (4.5-11.0)
[2017-01-31 07:23] LABS: ALB/GLOB RATIO 1.2 (1.1-1.8); ALKALINE PHOSPHATASE 66 U/L (38-126); ALT/SGPT 45 U/L (7-56); AST/SGOT 24 U/L (14-36); BILIRUBIN,TOTAL 0.5 mg/dL (0.2-1.3); BLOOD UREA NITROGEN 10 mg/dL (7-21); CALCIUM 8.6 mg/dL (8.4-10.5); CARBON DIOXIDE 27 mmol/L (21-33); CHLORIDE 106 mmol/L (98-107); GFR AFRICAN-AMERICAN > 60; GLUCOSE,RANDOM 134 mg/dL (70-110); MAGNESIUM 1.9 mg/dL (1.7-2.2); PHOSPHOROUS 4.2 mg/dL (2.5-4.5); POTASSIUM 4.4 mmol/L (3.6-5.0); SODIUM 139 mmol/L (132-148); TOTAL PROTEIN 5.9 g/dL (5.8-8.3)
[2017-01-31] MEDS: Multivitamin With Minerals Tab PO SCH (08:08)
--- NOTE | 2017-01-31 10:45 | CP.PCM.PN ---
<Becki Graves - Last Filed: 01/31/17 16:05> Subjective - Date & Time of Evaluation Date of Evaluation: 01/31/17 Time of Evaluation: 10:44 - Subjective Subjective: Hospitalist Service Progress Note: Patient seen and examined at bedside. Per nursing, patient was having tremors and sweaty palms this am. Patient reports SOB slightly improving. Still having cough. Patient able to talk in complete sentences. Ambulating to the bathroom and tolerating diet. States having body aches, takes percocet at home with improvement. Denies headaches, dizziness, nausea/vomiting, cp, palpitations, sob , urinary symptoms. Objective - Vital Signs/Intake and Output Vital Signs (last 24 hours): Temp Pulse Resp BP Pulse Ox 97.8 F 84 21 151/93 H 97 01/31/17 06:00 01/31/17 06:00 01/31/17 06:00 01/31/17 06:00 01/31/17 06:00 Intake and Output: 01/31/17 01/31/17 06:59 18:59 Intake Total 1120 Output Total 0 Balance 1120 - Medications Medications: Current Medications Acetaminophen (Tylenol 325mg Tab) 650 mg PO Q6H PRN PRN Reason: pain Last Admin: 01/31/17 08:25 Dose: 650 mg Albuterol/Ipratropium (Duoneb 3 Mg/0.5 Mg (3 Ml) Ud) 3 ml IH [id number] [facility] Last Admin: 01/31/17 07:34 Dose: 3 ml Albuterol/Ipratropium (Duoneb 3 Mg/0.5 Mg (3 Ml) Ud) 3 ml IH Q2H PRN PRN Reason: Shortness of Breath Benzonatate (Tessalon Perles) 100 mg PO TID [facility] Last Admin: 01/31/17 09:42 Dose: 100 mg Chlordiazepoxide (Librium) 25 mg PO Q8 [facility] PRN Reason: Protocol Last Admin: 01/31/17 05:00 Dose: 25 mg Doxycycline Hyclate (Doryx) 100 mg PO BID [facility] PRN Reason: Protocol Last Admin: 01/31/17 09:42 Dose: 100 mg Folic Acid (Folic Acid) 1 mg PO DAILY [facility] Last Admin: 01/31/17 09:43 Dose: 1 mg Guaifenesin (Robitussin) 100 mg PO Q4H PRN PRN Reason: Cough Heparin Sodium (Porcine) (Heparin) 5,000 units SC Q12 [facility] PRN Reason: Protocol Last Admin: 01/31/17 09:42 Dose: 5,000 units Lorazepam (Ativan) 2 mg PO Q2 PRN; Protocol PRN Reason: Agitation Last Admin: 01/31/17 08:32 Dose: 2 mg Methylprednisolone (Solu-Medrol) 40 mg IV Q8 [facility] Last Admin: 01/31/17 05:00 Dose: 40 mg Methylprednisolone (Solu-Medrol) 40 mg IVP Q12 [facility] Montelukast Sodium (Singulair) 10 mg PO DAILY [facility] Last Admin: 01/31/17 09:42 Dose: 10 mg Multivitamins/Minerals (Therapeutic-M Tab) 1 tab PO 0800 [facility] Last Admin: 01/31/17 08:08 Dose: 1 tab Nicotine (Nicoderm Cq) 1 patch TD DAILY [facility] Last Admin: 01/31/17 09:42 Dose: 1 patch Oxycodone/Acetaminophen (Percocet 5/325 Mg Tab) 1 tab PO Q12H PRN PRN Reason: Pain, severe (8-10) Stop: 02/03/17 10:40 Thiamine HCl (Vitamin B1 Tab) 100 mg PO DAILY [facility] Last Admin: 01/31/17 09:42 Dose: 100 mg - Labs Labs: 01/31/17 06:59 01/31/17 06:59 PT 10.4 Seconds (9.9-11.8) 01/29/17 13:49 INR 0.96 (0.93-1.08) 01/29/17 13:49 APTT 26.6 Seconds (23.7-30.8) 01/29/17 13:49 - Constitutional Appears: Well, No Acute Distress - Head Exam Head Exam: ATRAUMATIC, NORMAL INSPECTION - Eye Exam Eye Exam: EOMI, Normal appearance Pupil Exam: NORMAL ACCOMODATION - ENT Exam ENT Exam: Mucous Membranes Moist - Neck Exam Neck Exam: Full ROM - Respiratory Exam Respiratory Exam: Wheezes, NORMAL BREATHING PATTERN. absent: Accessory Muscle Use, Rales, Rhonchi - Cardiovascular Exam Cardiovascular Exam: Tachycardia, +S1, +S2 - GI/Abdominal Exam GI & Abdominal Exam: Distended, Soft. absent: Guarding, Rigid, Tenderness - Extremities Exam Extremities Exam: Full ROM, Normal Inspection. absent: Calf Tenderness - Back Exam Back Exam: NORMAL INSPECTION - Neurological Exam Neurological Exam: Alert, Awake, Normal Gait, Oriented x3 - Psychiatric Exam Psychiatric exam: Anxious, Normal Affect - Skin Skin Exam: Dry, Normal Color, Warm Assessment and Plan - Assessment and Plan (Free Text) Assessment: This is a 46 year old female with a past medical history of COPD, etoh abuse, Hepatitis C, Pneumothorax(s/p Pleurcendesis), liver cirrhosis who is being admitted for COPD exacerbation and ETOH withdrawal. Plan: 1. COPD exacerbation -CXR on admission negative for active pulmonary disease. -Continue to monitor 02 sats -Duonebs Q4H craig, Duonebs Q2H prn SOB -Abx: Doxycycline 100mg BID (day 3) -Taper Steroids: IV Methylprednisolone 40mg Q12H -Singular 10MG Daily -Tessalon Pearls TID, Robitussin prn cough -Nicotine patch -Smoking cessation advised -PT to eval ambulatory 02 sats 2. Substance abuse/ETOH withdrawal -Currently homeless -Never been to AA or rehab, last drink was 01/29 at 9am -Continue Librium 25mg Q8H -Ativan 2gm Q2 PRN -Continue PO vitamins -Percocet Q12H prn pain -CIWA protocol, Seizure protocols -UTOX positive for cannibinoids -ETOH cessation advised -SW consulted, f/u recommendations 3. Transaminitis -Likely secondary to alcohol abuse and chronic hep C -Resolved -Avoid hepato-toxic drugs 4.Hypokalemia -Potassium 4.4 today -Will replete as necessary 5. Urinary Tract Infection -Urine culture growing Cornybacterium with low colony count -Asymptomatic -Will repeat urine cx GI/DVT ppx -Protonix -Heparin <Rangasamy,Ajantha - Last Filed: 01/31/17 17:20> Objective - Vital Signs/Intake and Output Vital Signs (last 24 hours): Temp Pulse Resp BP Pulse Ox 98.1 F 109 H 19 153/84 H 100 01/31/17 16:50 01/31/17 16:50 01/31/17 16:50 01/31/17 16:50 01/31/17 16:50 Intake and Output: 01/31/17 01/31/17 06:59 18:59 Intake Total 1120 Output Total 0 Balance 1120 - Medications Medications: Current Medications Acetaminophen (Tylenol 325mg Tab) 650 mg PO Q6H PRN PRN Reason: pain Last Admin: 01/31/17 15:18 Dose: 650 mg Albuterol/Ipratropium (Duoneb 3 Mg/0.5 Mg (3 Ml) Ud) 3 ml IH [id number] [facility] Last Admin: 01/31/17 15:21 Dose: 3 ml Albuterol/Ipratropium (Duoneb 3 Mg/0.5 Mg (3 Ml) Ud) 3 ml IH Q2H PRN PRN Reason: Shortness of Breath Benzonatate (Tessalon Perles) 100 mg PO TID [facility] Last Admin: 01/31/17 13:30 Dose: 100 mg Chlordiazepoxide (Librium) 25 mg PO Q8 [facility] PRN Reason: Protocol Last Admin: 01/31/17 13:30 Dose: 25 mg Doxycycline Hyclate (Doryx) 100 mg PO BID [facility] PRN Reason: Protocol Last Admin: 01/31/17 09:42 Dose: 100 mg Folic Acid (Folic Acid) 1 mg PO DAILY [facility] Last Admin: 01/31/17 09:43 Dose: 1 mg Guaifenesin (Robitussin) 100 mg PO Q4H PRN PRN Reason: Cough Heparin Sodium (Porcine) (Heparin) 5,000 units SC Q12 [facility] PRN Reason: Protocol Last Admin: 01/31/17 09:42 Dose: 5,000 units Lorazepam (Ativan) 2 mg PO Q2 PRN; Protocol PRN Reason: Agitation Last Admin: 01/31/17 15:14 Dose: 2 mg Methylprednisolone (Solu-Medrol) 40 mg IVP Q12 [facility] Last Admin: 01/31/17 10:53 Dose: 40 mg Methylprednisolone (Solu-Medrol) 40 mg IVP ONCE ONE Stop: 01/31/17 23:01 Montelukast Sodium (Singulair) 10 mg PO DAILY [facility] Last Admin: 01/31/17 09:42 Dose: 10 mg Multivitamins/Minerals (Therapeutic-M Tab) 1 tab PO 0800 [facility] Last Admin: 01/31/17 08:08 Dose: 1 tab Nicotine (Nicoderm Cq) 1 patch TD DAILY [facility] Last Admin: 01/31/17 09:42 Dose: 1 patch Oxycodone/Acetaminophen (Percocet 5/325 Mg Tab) 1 tab PO Q12H PRN PRN Reason: Pain, severe (8-10) Stop: 02/03/17 10:40 Last Admin: 01/31/17 10:47 Dose: 1 tab Pantoprazole Sodium (Protonix Ec Tab) 40 mg PO 0600 [facility] Thiamine HCl (Vitamin B1 Tab) 100 mg PO DAILY [facility] Last Admin: 01/31/17 09:42 Dose: 100 mg - Labs Labs: 01/31/17 06:59 01/31/17 06:59 PT 10.4 Seconds (9.9-11.8) 01/29/17 13:49 INR 0.96 (0.93-1.08) 01/29/17 13:49 APTT 26.6 Seconds (23.7-30.8) 01/29/17 13:49 Attending/Attestation - Attestation I have personally seen and examined this patient.: Yes I have fully participated in the care of the patient.: Yes I have reviewed all pertinent clinical information, including history, physical exam and plan: Yes Notes (Text): 01/31/17 17:19 Attending note; Patient seen and examined with resident. Patient is still complaining of cough and shortness of breath. slight improvement in wheezing noted. Patient is a 46 year old female with a past medical history of COPD, etoh abuse , Hepatitis C, Pneumothorax(s/p Pleurcendesis), liver cirrhosis who is being admitted for COPD exacerbation and ETOH withdrawal. COPD exacerbation; continue DuoNeb, IV Steroids, doxycycline and Robitussin. continue taper IV Steroids. Alcohol withdrawal; continue Ativan and Librium. Continue multivitamin, thiamine , folic acid. Smoking cessation/alcohol cessation is strongly advised. vineyard worker evaluation requested. Upon discharge the patient will be referred to [facility] [place] clinic.
[2017-01-31] MEDS: Oxycodone/Acetaminophen 5/325 mg Tab PO PRN (10:47)
[2017-01-31] MEDS: MethylPREDNISolone 40 mg Vial IVP SCH ×2 (10:53→21:10)
[2017-01-31] MEDS ORDERED: MethylPREDNISolone 40 mg Vial IVP ONE (23:00)
[2017-02-01] MEDS: Oxycodone/Acetaminophen 5/325 mg Tab PO PRN ×2 (02:43→14:53)
[2017-02-01] MEDS: Albuterol-Ipratrop 3 mg / 0.5 (3 ml) UD IH SCH ×6 (04:04→23:08)
[2017-02-01] MEDS: Pantoprazole 40 mg EC Tab PO SCH (05:59)
[2017-02-01 07:14] LABS: GRAN # 15.36 (1.4-6.5); GRAN % 86.1 % (50.0-68.0); HEMATOCRIT 40.9 % (36.0-48.0); LYMPH # 1.1 (1.2-3.4); LYMPH % 6.4 % (22.0-35.0); MEAN CORPUSCULAR HEMOGLOBIN 32.4 pg (25.0-35.0); MEAN CORPUSCULAR HGB CONC 32.8 g/dl (31.0-37.0); MEAN PLATELET VOLUME 10.3 fl (7.0-11.0); MONO # 1.3 (0.1-0.6); MONO % 7.5 % (1.0-6.0); RED CELL DISTRIBUTION WIDTH 14.6 % (11.5-14.5); WHITE BLOOD COUNT 17.8 10^3/ul (4.5-11.0)
[2017-02-01 07:26] LABS: ALB/GLOB RATIO 1.3 (1.1-1.8); ALKALINE PHOSPHATASE 68 U/L (38-126); ALT/SGPT 59 U/L (7-56); AST/SGOT 48 U/L (14-36); BILIRUBIN,TOTAL 0.4 mg/dL (0.2-1.3); BLOOD UREA NITROGEN 16 mg/dL (7-21); CALCIUM 8.6 mg/dL (8.4-10.5); CARBON DIOXIDE 30 mmol/L (21-33); CHLORIDE 103 mmol/L (95-110); GFR AFRICAN-AMERICAN > 60; GLUCOSE,RANDOM 135 mg/dL (70-110); PHOSPHOROUS 4.4 mg/dL (2.5-4.5); POTASSIUM 4.2 mmol/L (3.6-5.0); SODIUM 138 mmol/L (132-148); TOTAL PROTEIN 5.7 g/dL (5.8-8.3)
[2017-02-01] MEDS: Multivitamin With Minerals Tab PO SCH (09:51)
[2017-02-01] MEDS: MethylPREDNISolone 40 mg Vial IVP SCH ×2 (09:52→21:34)
--- NOTE | 2017-02-01 11:42 | CP.PCM.PN ---
<Becki Graves - Last Filed: 02/01/17 13:15> Subjective - Date & Time of Evaluation Date of Evaluation: 02/01/17 Time of Evaluation: 11:42 - Subjective Subjective: Hospitalist Service Progress Note: Patient seen and examined at bedside. Per nursing no acute events overnight. SOB and cough improving. Patient is ambulating without difficulty. Still having diffuse body aches. Offers no complaints at this time. Denies headaches, dizziness, cp, palpitations, nausea/vomiting, urinary symptoms, changes in bowel habits. Objective - Vital Signs/Intake and Output Vital Signs (last 24 hours): Temp Pulse Resp BP Pulse Ox 97.5 F L 73 20 118/72 99 02/01/17 06:00 02/01/17 06:00 02/01/17 06:00 02/01/17 06:00 02/01/17 06:00 Intake and Output: 02/01/17 02/01/17 06:59 18:59 Intake Total 350 Output Total 500 Balance -150 - Medications Medications: Current Medications Acetaminophen (Tylenol 325mg Tab) 650 mg PO Q6H PRN PRN Reason: pain Last Admin: 01/31/17 15:18 Dose: 650 mg Albuterol/Ipratropium (Duoneb 3 Mg/0.5 Mg (3 Ml) Ud) 3 ml IH [id number] [facility] Last Admin: 02/01/17 10:49 Dose: 3 ml Albuterol/Ipratropium (Duoneb 3 Mg/0.5 Mg (3 Ml) Ud) 3 ml IH Q2H PRN PRN Reason: Shortness of Breath Benzonatate (Tessalon Perles) 100 mg PO TID [facility] Last Admin: 02/01/17 09:51 Dose: 100 mg Chlordiazepoxide (Librium) 5 mg PO Q8 [facility] PRN Reason: Protocol Doxycycline Hyclate (Doryx) 100 mg PO BID [facility] PRN Reason: Protocol Last Admin: 02/01/17 09:51 Dose: 100 mg Folic Acid (Folic Acid) 1 mg PO DAILY [facility] Last Admin: 02/01/17 09:51 Dose: 1 mg Guaifenesin (Robitussin) 100 mg PO Q4H PRN PRN Reason: Cough Last Admin: 01/31/17 18:22 Dose: 100 mg Heparin Sodium (Porcine) (Heparin) 5,000 units SC Q12 [facility] PRN Reason: Protocol Last Admin: 02/01/17 09:51 Dose: 5,000 units Lorazepam (Ativan) 1 mg IVP Q4H PRN; Protocol PRN Reason: Anxiety Methylprednisolone (Solu-Medrol) 30 mg IVP Q12 [facility] Montelukast Sodium (Singulair) 10 mg PO DAILY [facility] Last Admin: 02/01/17 09:51 Dose: 10 mg Multivitamins/Minerals (Therapeutic-M Tab) 1 tab PO 0800 [facility] Last Admin: 02/01/17 09:51 Dose: 1 tab Nicotine (Nicoderm Cq) 1 patch TD DAILY [facility] Last Admin: 02/01/17 09:52 Dose: 1 patch Oxycodone/Acetaminophen (Percocet 5/325 Mg Tab) 1 tab PO Q12H PRN PRN Reason: Pain, severe (8-10) Stop: 02/03/17 10:40 Last Admin: 02/01/17 02:43 Dose: 1 tab Pantoprazole Sodium (Protonix Ec Tab) 40 mg PO 0600 [facility] Last Admin: 02/01/17 05:59 Dose: 40 mg Thiamine HCl (Vitamin B1 Tab) 100 mg PO DAILY [facility] Last Admin: 02/01/17 09:51 Dose: 100 mg - Labs Labs: 02/01/17 06:30 02/01/17 06:30 PT 10.4 Seconds (9.9-11.8) 01/29/17 13:49 INR 0.96 (0.93-1.08) 01/29/17 13:49 APTT 26.6 Seconds (23.7-30.8) 01/29/17 13:49 - Constitutional Appears: Non-toxic, No Acute Distress - Head Exam Head Exam: ATRAUMATIC, NORMAL INSPECTION - Eye Exam Eye Exam: EOMI, Normal appearance Pupil Exam: NORMAL ACCOMODATION - ENT Exam ENT Exam: Mucous Membranes Moist - Neck Exam Neck Exam: Full ROM - Respiratory Exam Respiratory Exam: Wheezes, NORMAL BREATHING PATTERN. absent: Accessory Muscle Use, Rales, Rhonchi - Cardiovascular Exam Cardiovascular Exam: REGULAR RHYTHM, +S1, +S2. absent: Tachycardia - GI/Abdominal Exam GI & Abdominal Exam: Distended, Soft, Normal Bowel Sounds. absent: Guarding, Rigid, Tenderness - Rectal Exam Rectal Exam: Deferred - Extremities Exam Extremities Exam: Full ROM, Normal Inspection. absent: Calf Tenderness - Back Exam Back Exam: NORMAL INSPECTION - Neurological Exam Neurological Exam: Alert, Awake, Normal Gait, Oriented x3 - Psychiatric Exam Psychiatric exam: Anxious, Normal Affect - Skin Skin Exam: Dry, Normal Color, Warm Assessment and Plan - Assessment and Plan (Free Text) Assessment: This is a 46 year old female with a past medical history of COPD, etoh abuse, Hepatitis C, Pneumothorax(s/p Pleurcendesis), liver cirrhosis who is being admitted for COPD exacerbation and ETOH withdrawal. Plan: 1. COPD exacerbation -CXR on admission negative for active pulmonary disease -Duonebs Q4H craig, Duonebs Q2H prn SOB -Abx: Doxycycline 100mg BID (day 4) -Taper Steroids: Solu-medrol 30mg Q12H -Singular 10MG Daily, Tessalon Pearls TID, Robitussin prn cough -Continue Nicotine patch -Smoking cessation advised -PT to eval ambulatory 02 sats 2. Leukocytosis -Afebrile, no active signs of infection -Likely secondary to steroid use -Improving, continue to monitor 3. Substance abuse/ETOH withdrawal -Currently homeless; Never been to AA or rehab -Discontinue Telemetry -Librium tapered 5mg TID -Ativan 1gm Q4 PRN anxiety -Continue PO vitamins -Percocet Q12H prn pain -CIWA protocol, Seizure protocols -UTOX positive for cannibinoids -ETOH cessation advised -SW consulted, f/u recommendations 4. Transaminitis -Likely secondary to alcohol abuse and chronic hep C -Mildly elevated today -Will taper Librium -Avoid hepato-toxic drugs 5. Hypokalemia (resolved) -Potassium 4.2 today -Will replete as necessary 6. Asymptomatic Bacteruria -Urine culture growing Cornybacterium with low colony count -Will repeat urine cx GI/DVT ppx -Protonix 40mg PO -Heparin <Rangasamy,Ajantha - Last Filed: 02/01/17 14:13> Objective - Vital Signs/Intake and Output Vital Signs (last 24 hours): Temp Pulse Resp BP Pulse Ox 98.3 F 112 H 19 140/91 H 95 02/01/17 12:00 02/01/17 12:00 02/01/17 12:00 02/01/17 12:00 02/01/17 09:00 Intake and Output: 02/01/17 02/01/17 06:59 18:59 Intake Total 350 Output Total 500 Balance -150 - Medications Medications: Current Medications Albuterol/Ipratropium (Duoneb 3 Mg/0.5 Mg (3 Ml) Ud) 3 ml IH [id number] [facility] Last Admin: 02/01/17 10:49 Dose: 3 ml Albuterol/Ipratropium (Duoneb 3 Mg/0.5 Mg (3 Ml) Ud) 3 ml IH Q2H PRN PRN Reason: Shortness of Breath Benzonatate (Tessalon Perles) 100 mg PO TID [facility] Last Admin: 02/01/17 13:14 Dose: 100 mg Chlordiazepoxide (Librium) 5 mg PO Q8 [facility] PRN Reason: Protocol Last Admin: 02/01/17 13:14 Dose: 5 mg Doxycycline Hyclate (Doryx) 100 mg PO BID [facility] PRN Reason: Protocol Last Admin: 02/01/17 09:51 Dose: 100 mg Folic Acid (Folic Acid) 1 mg PO DAILY [facility] Last Admin: 02/01/17 09:51 Dose: 1 mg Guaifenesin (Robitussin) 100 mg PO Q4H PRN PRN Reason: Cough Last Admin: 01/31/17 18:22 Dose: 100 mg Heparin Sodium (Porcine) (Heparin) 5,000 units SC Q12 [facility] PRN Reason: Protocol Last Admin: 02/01/17 09:51 Dose: 5,000 units Ibuprofen (Motrin Tab) 600 mg PO Q6H PRN PRN Reason: Pain, Mild (1-3) Lorazepam (Ativan) 1 mg IVP Q4H PRN; Protocol PRN Reason: Anxiety Methylprednisolone (Solu-Medrol) 30 mg IVP Q12 [facility] Montelukast Sodium (Singulair) 10 mg PO DAILY [facility] Last Admin: 02/01/17 09:51 Dose: 10 mg Multivitamins/Minerals (Therapeutic-M Tab) 1 tab PO 0800 [facility] Last Admin: 02/01/17 09:51 Dose: 1 tab Nicotine (Nicoderm Cq) 1 patch TD DAILY [facility] Last Admin: 02/01/17 09:52 Dose: 1 patch Oxycodone/Acetaminophen (Percocet 5/325 Mg Tab) 1 tab PO Q12H PRN PRN Reason: Pain, severe (8-10) Stop: 02/03/17 10:40 Last Admin: 02/01/17 02:43 Dose: 1 tab Pantoprazole Sodium (Protonix Ec Tab) 40 mg PO 0600 [facility] Last Admin: 02/01/17 05:59 Dose: 40 mg Thiamine HCl (Vitamin B1 Tab) 100 mg PO DAILY [facility] Last Admin: 02/01/17 09:51 Dose: 100 mg - Labs Labs: 02/01/17 06:30 02/01/17 06:30 PT 10.4 Seconds (9.9-11.8) 01/29/17 13:49 INR 0.96 (0.93-1.08) 01/29/17 13:49 APTT 26.6 Seconds (23.7-30.8) 01/29/17 13:49 Attending/Attestation - Attestation I have personally seen and examined this patient.: Yes I have fully participated in the care of the patient.: Yes I have reviewed all pertinent clinical information, including history, physical exam and plan: Yes Notes (Text): 02/01/17 14:12 Attending note; Patient seen and examined with resident. Patient is still complaining of cough and shortness of breath. slight improvement in wheezing noted. Tachycardia resolved. Telemetry discontinued. COPD exacerbation; continue DuoNeb, IV Steroids, doxycycline and Robitussin. continue taper IV Steroids. Alcohol withdrawal; continue Ativan and taper Librium. Continue multivitamin, thiamine, folic acid. Smoking cessation/alcohol cessation is strongly advised. pony worker evaluation requested. Possible discharge home within 24-48 hours. Upon discharge the patient will be referred to [facility] [place] clinic.
[2017-02-02] MEDS: Oxycodone/Acetaminophen 5/325 mg Tab PO PRN ×2 (03:23→14:15)
[2017-02-02] MEDS: Pantoprazole 40 mg EC Tab PO SCH (05:24)
[2017-02-02] MEDS: Albuterol-Ipratrop 3 mg / 0.5 (3 ml) UD IH SCH ×6 (05:31→23:46)
[2017-02-02 07:53] LABS: BASO # 0.01 K/mm3 (0.0-2.0); BASO % 0.1 % (0.0-3.0); EOS % 0.1 % (1.5-5.0); GRAN # 13.25 (1.4-6.5); GRAN % 82.3 % (50.0-68.0); HEMATOCRIT 43.2 % (36.0-48.0); LYMPH # 1.7 (1.2-3.4); LYMPH % 10.4 % (22.0-35.0); MEAN CELL VOLUME 98.4 fl (80.0-105.0); MEAN CORPUSCULAR HEMOGLOBIN 32.3 pg (25.0-35.0); MEAN CORPUSCULAR HGB CONC 32.9 g/dl (31.0-37.0); MEAN PLATELET VOLUME 10.4 fl (7.0-11.0); MONO # 1.1 (0.1-0.6); MONO % 7.1 % (1.0-6.0); RED CELL DISTRIBUTION WIDTH 14.3 % (11.5-14.5); WHITE BLOOD COUNT 16.1 10^3/ul (4.5-11.0)
[2017-02-02 08:24] LABS: ALB/GLOB RATIO 1.3 (1.1-1.8); ALKALINE PHOSPHATASE 58 U/L (38-126); ALT/SGPT 47 U/L (7-56); AST/SGOT 22 U/L (14-36); BILIRUBIN,TOTAL 0.4 mg/dL (0.2-1.3); BLOOD UREA NITROGEN 17 mg/dL (7-21); CALCIUM 8.8 mg/dL (8.4-10.5); CARBON DIOXIDE 33 mmol/L (21-33); CHLORIDE 100 mmol/L (98-107); GFR AFRICAN-AMERICAN > 60; GLUCOSE,RANDOM 118 mg/dL (70-110); MAGNESIUM 2.1 mg/dL (1.7-2.2); PHOSPHOROUS 4.9 mg/dL (2.5-4.5); POTASSIUM 4.6 mmol/L (3.6-5.0); SODIUM 138 mmol/L (132-148); TOTAL PROTEIN 5.5 g/dL (5.8-8.3)
[2017-02-02] MEDS: MethylPREDNISolone 40 mg Vial IVP SCH (09:38)
[2017-02-02] MEDS: Multivitamin With Minerals Tab PO SCH (09:39)
--- NOTE | 2017-02-02 15:16 | CP.PCM.PN ---
<Becki Graves - Last Filed: 02/02/17 15:22> Subjective - Date & Time of Evaluation Date of Evaluation: 02/02/17 Time of Evaluation: 15:14 - Subjective Subjective: Hospitalist Service Progress Note: Patient seen and examined at bedside. Per nursing no acute events overnight. Patient states the sob and cough is improving. Denies any complaints at this time. Denies headaches, dizziness, cp, palpitations, abdominal pain, urinary symptoms, changes in bowel habits. Denies auditory/visual hallucinations. Objective - Vital Signs/Intake and Output Vital Signs (last 24 hours): Temp Pulse Resp BP Pulse Ox 98.1 F 72 22 138/86 99 02/02/17 06:00 02/02/17 06:00 02/02/17 06:00 02/02/17 06:00 02/02/17 06:00 Intake and Output: 02/02/17 02/02/17 06:59 18:59 Intake Total 1000 120 Balance 1000 120 - Medications Medications: Current Medications Albuterol/Ipratropium (Duoneb 3 Mg/0.5 Mg (3 Ml) Ud) 3 ml IH [id number] [facility] Last Admin: 02/02/17 11:14 Dose: 3 ml Albuterol/Ipratropium (Duoneb 3 Mg/0.5 Mg (3 Ml) Ud) 3 ml IH Q2H PRN PRN Reason: Shortness of Breath Benzonatate (Tessalon Perles) 100 mg PO TID [facility] Last Admin: 02/02/17 14:57 Dose: 100 mg Doxycycline Hyclate (Doryx) 100 mg PO BID [facility] PRN Reason: Protocol Last Admin: 02/02/17 09:38 Dose: 100 mg Folic Acid (Folic Acid) 1 mg PO DAILY [facility] Last Admin: 02/02/17 09:38 Dose: 1 mg Guaifenesin (Robitussin) 100 mg PO Q4H PRN PRN Reason: Cough Last Admin: 01/31/17 18:22 Dose: 100 mg Heparin Sodium (Porcine) (Heparin) 5,000 units SC Q12 [facility] PRN Reason: Protocol Last Admin: 02/02/17 09:38 Dose: 5,000 units Ibuprofen (Motrin Tab) 600 mg PO Q6H PRN PRN Reason: Pain, Mild (1-3) Last Admin: 02/02/17 09:38 Dose: 600 mg Lorazepam (Ativan) 1 mg IVP Q4H PRN; Protocol PRN Reason: Anxiety Last Admin: 02/02/17 14:53 Dose: 1 mg Methylprednisolone (Solu-Medrol) 30 mg IVP DAILY [facility] Montelukast Sodium (Singulair) 10 mg PO DAILY [facility] Last Admin: 02/02/17 09:39 Dose: 10 mg Multivitamins/Minerals (Therapeutic-M Tab) 1 tab PO 0800 [facility] Last Admin: 02/02/17 09:39 Dose: 1 tab Nicotine (Nicoderm Cq) 1 patch TD DAILY [facility] Last Admin: 02/02/17 09:39 Dose: 1 patch Oxycodone/Acetaminophen (Percocet 5/325 Mg Tab) 1 tab PO Q12H PRN PRN Reason: Pain, severe (8-10) Stop: 02/03/17 10:40 Last Admin: 02/02/17 14:15 Dose: 1 tab Pantoprazole Sodium (Protonix Ec Tab) 40 mg PO 0600 [facility] Last Admin: 02/02/17 05:24 Dose: 40 mg Thiamine HCl (Vitamin B1 Tab) 100 mg PO DAILY [facility] Last Admin: 02/02/17 09:39 Dose: 100 mg - Labs Labs: 02/02/17 07:45 02/02/17 07:00 PT 10.4 Seconds (9.9-11.8) 01/29/17 13:49 INR 0.96 (0.93-1.08) 01/29/17 13:49 APTT 26.6 Seconds (23.7-30.8) 01/29/17 13:49 - Constitutional Appears: Well, No Acute Distress - Head Exam Head Exam: ATRAUMATIC, NORMAL INSPECTION - Eye Exam Eye Exam: EOMI, Normal appearance Pupil Exam: NORMAL ACCOMODATION - ENT Exam ENT Exam: Mucous Membranes Moist - Neck Exam Neck Exam: Full ROM - Respiratory Exam Respiratory Exam: Wheezes, NORMAL BREATHING PATTERN. absent: Rhonchi, Respiratory Distress - Cardiovascular Exam Cardiovascular Exam: REGULAR RHYTHM, +S1, +S2 - GI/Abdominal Exam GI & Abdominal Exam: Soft, Normal Bowel Sounds. absent: Guarding, Rigid, Tenderness, Rebound - Extremities Exam Extremities Exam: Full ROM, Normal Inspection. absent: Calf Tenderness - Back Exam Back Exam: NORMAL INSPECTION - Neurological Exam Neurological Exam: Alert, Awake, Normal Gait, Oriented x3 - Psychiatric Exam Psychiatric exam: Normal Affect, Normal Mood - Skin Skin Exam: Dry, Normal Color, Warm Assessment and Plan - Assessment and Plan (Free Text) Assessment: This is a 46 year old female with a past medical history of COPD, etoh abuse, Hepatitis C, Pneumothorax(s/p Pleurcendesis), liver cirrhosis who is being admitted for COPD exacerbation and ETOH withdrawal. Plan: 1. COPD exacerbation -CXR on admission negative for active pulmonary disease -Duonebs Q4H craig, Duonebs Q2H prn SOB -Abx: Doxycycline 100mg BID (day 5) -Taper Steroids: Solu-medrol 30mg daily -Singular 10MG Daily, Tessalon Pearls TID, Robitussin prn cough -Continue Nicotine patch -Smoking cessation advised -Pt 02 sats on ambulation within normal range 2. Leukocytosis -Afebrile, no active signs of infection -Improving, WBC 16.1 today -Likely secondary to steroid use -Continue to monitor 3. Substance abuse/ETOH withdrawal -Currently homeless; Never been to AA or rehab -Librium discontinued -Ativan 1gm Q4 PRN anxiety -Continue PO thiamine, folic acid, multi-vitamins -Percocet Q12H prn pain -CIWA protocol, Seizure protocols -UTOX positive for cannibinoids -ETOH cessation advised -SW consulted, f/u recommendations 4. Transaminitis -Likely secondary to alcohol abuse and chronic hep C -Avoid hepato-toxic drugs 5. Hypokalemia (resolved) -Potassium 4.6 today -Will replete as necessary 6. Asymptomatic Bacteruria -Urine culture growing Cornybacterium with low colony count -Will not treat at this time as patient is not having symptoms GI/DVT ppx -Protonix 40mg PO -Heparin <Rangasamy,Ajantha - Last Filed: 02/02/17 16:17> Objective - Vital Signs/Intake and Output Vital Signs (last 24 hours): Temp Pulse Resp BP Pulse Ox 98.1 F 72 22 138/86 99 02/02/17 06:00 02/02/17 06:00 02/02/17 06:00 02/02/17 06:00 02/02/17 06:00 Intake and Output: 02/02/17 02/02/17 06:59 18:59 Intake Total 1000 120 Balance 1000 120 - Medications Medications: Current Medications Albuterol/Ipratropium (Duoneb 3 Mg/0.5 Mg (3 Ml) Ud) 3 ml IH [id number] [facility] Last Admin: 02/02/17 15:37 Dose: 3 ml Albuterol/Ipratropium (Duoneb 3 Mg/0.5 Mg (3 Ml) Ud) 3 ml IH Q2H PRN PRN Reason: Shortness of Breath Benzonatate (Tessalon Perles) 100 mg PO TID [facility] Last Admin: 02/02/17 14:57 Dose: 100 mg Doxycycline Hyclate (Doryx) 100 mg PO BID [facility] PRN Reason: Protocol Last Admin: 02/02/17 09:38 Dose: 100 mg Folic Acid (Folic Acid) 1 mg PO DAILY [facility] Last Admin: 02/02/17 09:38 Dose: 1 mg Guaifenesin (Robitussin) 100 mg PO Q4H PRN PRN Reason: Cough Last Admin: 01/31/17 18:22 Dose: 100 mg Heparin Sodium (Porcine) (Heparin) 5,000 units SC Q12 [facility] PRN Reason: Protocol Last Admin: 02/02/17 09:38 Dose: 5,000 units Ibuprofen (Motrin Tab) 600 mg PO Q6H PRN PRN Reason: Pain, Mild (1-3) Last Admin: 02/02/17 09:38 Dose: 600 mg Lorazepam (Ativan) 1 mg IVP Q4H PRN; Protocol PRN Reason: Anxiety Last Admin: 02/02/17 14:53 Dose: 1 mg Methylprednisolone (Solu-Medrol) 30 mg IVP DAILY [facility] Montelukast Sodium (Singulair) 10 mg PO DAILY [facility] Last Admin: 02/02/17 09:39 Dose: 10 mg Multivitamins/Minerals (Therapeutic-M Tab) 1 tab PO 0800 [facility] Last Admin: 02/02/17 09:39 Dose: 1 tab Nicotine (Nicoderm Cq) 1 patch TD DAILY [facility] Last Admin: 02/02/17 09:39 Dose: 1 patch Oxycodone/Acetaminophen (Percocet 5/325 Mg Tab) 1 tab PO Q12H PRN PRN Reason: Pain, severe (8-10) Stop: 02/03/17 10:40 Last Admin: 02/02/17 14:15 Dose: 1 tab Pantoprazole Sodium (Protonix Ec Tab) 40 mg PO 0600 [facility] Last Admin: 02/02/17 05:24 Dose: 40 mg Thiamine HCl (Vitamin B1 Tab) 100 mg PO DAILY [facility] Last Admin: 02/02/17 09:39 Dose: 100 mg - Labs Labs: 02/02/17 07:45 02/02/17 07:00 PT 10.4 Seconds (9.9-11.8) 01/29/17 13:49 INR 0.96 (0.93-1.08) 01/29/17 13:49 APTT 26.6 Seconds (23.7-30.8) 01/29/17 13:49 Attending/Attestation - Attestation I have personally seen and examined this patient.: Yes I have fully participated in the care of the patient.: Yes I have reviewed all pertinent clinical information, including history, physical exam and plan: Yes Notes (Text): 02/02/17 16:15 Attending note; Patient seen and examined with resident. Patient is still complaining of cough and shortness of breath on exertion. improvement in wheezing noted. patient is advised to ambulate without oxygen. Will monitor closely. COPD exacerbation; continue DuoNeb, IV Steroids, doxycycline and Robitussin. continue taper IV Steroids. Alcohol withdrawal; continue Ativan and taper Librium. Continue multivitamin, thiamine, folic acid. Smoking cessation/alcohol cessation is strongly advised. linen worker evaluation appreciated. Possible discharge home tomorrow if stable. Upon discharge the patient will be referred to [facility] [place] clinic.
[2017-02-03] MEDS: Oxycodone/Acetaminophen 5/325 mg Tab PO PRN (02:08)
[2017-02-03] MEDS: Albuterol-Ipratrop 3 mg / 0.5 (3 ml) UD IH SCH ×3 (03:50→10:58)
[2017-02-03] MEDS: Pantoprazole 40 mg EC Tab PO SCH (05:18)
[2017-02-03 07:07] LABS: BASO # 0.02 K/mm3 (0.0-2.0); BASO % 0.2 % (0.0-3.0); EOS # 0.1 (0.0-0.7); EOS % 0.8 % (1.5-5.0); GRAN # 8.58 (1.4-6.5); GRAN % 65.4 % (50.0-68.0); HEMATOCRIT 41.5 % (36.0-48.0); LYMPH # 3.2 (1.2-3.4); LYMPH % 24.4 % (22.0-35.0); MEAN CELL VOLUME 98.6 fl (80.0-105.0); MEAN CORPUSCULAR HEMOGLOBIN 31.8 pg (25.0-35.0); MEAN CORPUSCULAR HGB CONC 32.3 g/dl (31.0-37.0); MEAN PLATELET VOLUME 10.2 fl (7.0-11.0); MONO # 1.2 (0.1-0.6); MONO % 9.2 % (1.0-6.0); RED CELL DISTRIBUTION WIDTH 14.5 % (11.5-14.5); WHITE BLOOD COUNT 13.1 10^3/ul (4.5-11.0)
[2017-02-03 07:26] LABS: ALB/GLOB RATIO 1.2 (1.1-1.8); ALKALINE PHOSPHATASE 53 U/L (38-126); ALT/SGPT 58 U/L (7-56); AST/SGOT 61 U/L (14-36); BILIRUBIN,TOTAL 0.3 mg/dL (0.2-1.3); BLOOD UREA NITROGEN 20 mg/dL (7-21); CARBON DIOXIDE 31 mmol/L (21-33); CHLORIDE 101 mmol/L (98-107); GFR AFRICAN-AMERICAN > 60; GLUCOSE,RANDOM 102 mg/dL (70-110); MAGNESIUM 1.9 mg/dL (1.7-2.2); PHOSPHOROUS 4.8 mg/dL (2.5-4.5); POTASSIUM 3.4 mmol/L (3.6-5.0); SODIUM 137 mmol/L (132-148); TOTAL PROTEIN 5.2 g/dL (5.8-8.3)
[2017-02-03] MEDS ORDERED: Potassium Chloride 20 mEq ER Tab PO ONE (07:39)
[2017-02-03 09:46] VITALS: BP 138/89; PULSE 84; RESP 22; TEMP 98.4; O2SAT 95
[2017-02-03] MEDS ORDERED: MethylPREDNISolone 40 mg Vial IVP SCH (10:00)
[2017-02-03] MEDS: Multivitamin With Minerals Tab PO SCH (10:15)
--- NOTE | 2017-02-03 11:05 | CP.PCM.DIS ---
<Becki Graves - Last Filed: 02/03/17 12:45> Provider - Provider Date of Admission: 01/29/17 16:00 Attending physician: Junaid Rouse MD Time Spent in preparation of Discharge (in minutes): 32 Hospital Course - Lab Results Lab Results: Micro Results 01/31/17 17:55 Urine Urine Culture - Final No Growth (<1,000 CFU/ML) Most Recent Lab Values WBC 13.1 10^3/ul (4.5-11.0) H 02/03/17 06:52 RBC 4.21 10^6/uL (3.5-6.1) 02/03/17 06:52 Hgb 13.4 g/dL (12.0-16.0) 02/03/17 06:52 Hct 41.5 % (36.0-48.0) 02/03/17 06:52 MCV 98.6 fl (80.0-105.0) 02/03/17 06:52 MCH 31.8 pg (25.0-35.0) 02/03/17 06:52 MCHC 32.3 g/dl (31.0-37.0) 02/03/17 06:52 RDW 14.5 % (11.5-14.5) 02/03/17 06:52 Plt Count 307 10^3/uL (120.0-450.0) 02/03/17 06:52 MPV 10.2 fl (7.0-11.0) 02/03/17 06:52 Gran % 65.4 % (50.0-68.0) 02/03/17 06:52 Lymph % (Auto) 24.4 % (22.0-35.0) 02/03/17 06:52 [place] % (Auto) 9.2 % (1.0-6.0) H 02/03/17 06:52 Eos % (Auto) 0.8 % (1.5-5.0) L 02/03/17 06:52 Baso % (Auto) 0.2 % (0.0-3.0) 02/03/17 06:52 Gran # 8.58 (1.4-6.5) H 02/03/17 06:52 Lymph # 3.2 (1.2-3.4) 02/03/17 06:52 [place] # 1.2 (0.1-0.6) H 02/03/17 06:52 Eos # 0.1 (0.0-0.7) 02/03/17 06:52 Baso # 0.02 K/mm3 (0.0-2.0) 02/03/17 06:52 Neutrophils % (Manual) 92 % (50.0-70.0) H 01/30/17 07:50 Lymphocytes % (Manual) 6 % (22.0-35.0) L 01/30/17 07:50 Monocytes % (Manual) 2 % (1.0-6.0) 01/30/17 07:50 Toxic Granulation 1+ 01/30/17 07:50 Platelet Evaluation Normal (NORMAL) 01/30/17 07:50 Plt Clumps, EDTA Present 01/30/17 07:50 Anisocytosis (manual) Slight 01/30/17 07:50 PT 10.4 Seconds (9.9-11.8) 01/29/17 13:49 INR 0.96 (0.93-1.08) 01/29/17 13:49 APTT 26.6 Seconds (23.7-30.8) 01/29/17 13:49 pCO2 42 mm/Hg (35-45) 01/29/17 13:38 pO2 134 mm/Hg (30-55) H 01/29/17 21:05 HCO3 24.8 mmol/L (21-28) 01/29/17 13:38 ABG pH 7.38 (7.35-7.45) 01/29/17 13:38 ABG Total CO2 26.1 mmol.L (22-28) 01/29/17 13:38 ABG O2 Saturation 95.6 % (95-98) 01/29/17 13:38 ABG Base Excess -0.4 mmol/L (-2.0-3.0) 01/29/17 13:38 ABG Potassium 2.6 mmol/L (3.6-5.2) L 01/29/17 13:38 VBG pH 7.46 (7.32-7.43) H 01/29/17 21:05 VBG pCO2 36.0 (40-60) L 01/29/17 21:05 VBG HCO3 25.6 mmol/l (21-28) 01/29/17 21:05 VBG Total CO2 26.7 mmol.L (22-28) 01/29/17 21:05 VBG O2 Sat (Calc) 99.4 % (40-65) H 01/29/17 21:05 VBG Base Excess 2.0 mmol/L (0.0-2.0) 01/29/17 21:05 VBG Potassium 4.1 mmol/L (3.6-5.2) 01/29/17 21:05 Sodium 137.0 mmol/L (132-148) 01/29/17 21:05 Chloride 103.0 mmol/L (98-107) 01/29/17 21:05 Glucose 181 mg/dl (65-105) H 01/29/17 21:05 Lactate 2.8 mmol/L (0.7-2.1) H 01/29/17 21:05 FiO2 21.0 % 01/29/17 21:05 Sodium 137 mmol/L (132-148) 02/03/17 06:52 Potassium 3.4 mmol/L (3.6-5.0) L 02/03/17 06:52 Chloride 101 mmol/L (98-107) 02/03/17 06:52 Carbon Dioxide 31 mmol/L (21-33) 02/03/17 06:52 Anion Gap 8 (10-20) L 02/03/17 06:52 BUN 20 mg/dL (7-21) 02/03/17 06:52 Creatinine 0.7 mg/dL (0.7-1.2) 02/03/17 06:52 Est GFR ( Amer) > 60 02/03/17 06:52 Est GFR (Non-Af Amer) > 60 02/03/17 06:52 Random Glucose 102 mg/dL (70-110) 02/03/17 06:52 Calcium 8.0 mg/dL (8.4-10.5) L 02/03/17 06:52 Phosphorus 4.8 mg/dL (2.5-4.5) H 02/03/17 06:52 Magnesium 1.9 mg/dL (1.7-2.2) 02/03/17 06:52 Total Bilirubin 0.3 mg/dL (0.2-1.3) 02/03/17 06:52 AST 61 U/L (14-36) H D 02/03/17 06:52 ALT 58 U/L (7-56) H 02/03/17 06:52 Alkaline Phosphatase 53 U/L (38-126) 02/03/17 06:52 Lactate Dehydrogenase 411 U/L (333-699) 01/29/17 13:49 Total Creatine Kinase 43 U/L (35-230) 01/29/17 13:49 Troponin I < 0.01 ng/mL 01/29/17 13:49 NT-Pro-B Natriuret Pep 34.8 pg/mL (0-450) 01/29/17 13:49 Total Protein 5.2 g/dL (5.8-8.3) L 02/03/17 06:52 Albumin 2.9 g/dL (3.0-4.8) L 02/03/17 06:52 Globulin 2.4 gm/dL 02/03/17 06:52 Albumin/Globulin Ratio 1.2 (1.1-1.8) 02/03/17 06:52 Arterial Blood Potassium 2.6 mmol/L (3.6-5.2) L 01/29/17 13:38 Venous Blood Potassium 4.1 mmol/L (3.6-5.2) 01/29/17 21:05 Urine Color Yellow (YELLOW) 01/29/17 13:58 Urine Appearance Clear (CLEAR) 01/29/17 13:58 Urine pH 6.0 (4.7-8.0) 01/29/17 13:58 Ur Specific [place] 1.010 (1.005-1.035) 01/29/17 13:58 Urine Protein Negative mg/dL (<30 mg/dL) 01/29/17 13:58 Urine Glucose (UA) Negative mg/dL (NEGATIVE) 01/29/17 13:58 Urine Ketones Negative mg/dL (NEGATIVE) 01/29/17 13:58 Urine Blood Negative (NEGATIVE) 01/29/17 13:58 Urine Nitrate Negative (NEGATIVE) 01/29/17 13:58 Urine Bilirubin Negative (NEGATIVE) 01/29/17 13:58 Urine Urobilinogen 1.0 E.U./dL (<1 E.U./dL) H 01/29/17 13:58 Ur Leukocyte Esterase Small Erik/uL (NEGATIVE) H 01/29/17 13:58 Urine RBC Negative /hpf (0-2) 01/29/17 13:58 Urine WBC 5 - 10 /hpf (0-6) 01/29/17 13:58 Ur Epithelial Cells 6 - 8 /hpf (0-5) 01/29/17 13:58 Amorphous Sediment Trace 01/29/17 13:58 Urine Opiates Screen Negative (NEGATIVE) 01/29/17 13:58 Urine Methadone Screen Negative (NEGATIVE) 01/29/17 13:58 Ur Barbiturates Screen Negative (NEGATIVE) 01/29/17 13:58 Ur Phencyclidine Scrn Negative (NEGATIVE) 01/29/17 13:58 Ur Amphetamines Screen Negative (NEGATIVE) 01/29/17 13:58 U Benzodiazepines Scrn Negative (NEGATIVE) 01/29/17 13:58 U Oth Cocaine Metabols Negative (NEGATIVE) 01/29/17 13:58 U Cannabinoids Screen Positive (NEGATIVE) H 01/29/17 13:58 - Hospital Course Hospital Course: Patient is a 46 year old female with past medical history of COPD, pneumothorax (s/p Pleurocendesis), Hepatitis C, ETOh abuse, and liver cirrhosis who presents to the emergency department with complaints of shortness of breath and productive cough(yellow phlegm). The patient reports running out of her COPD medications two days ago when the symptoms started. She denies any alleviating or modifying factors. The patient is homeless and reports not having money to purchase the medications. Patient was admitted and treated for alcohol withdrawal and COPD exacerbation. Patient was monitored on telemetry. For alcohol withdrawal patient was started on Librium and Ativan prn, banana bag. Was monitored using CIWA protocol with seziure, aspiration precautions. Librium was tapered. Patient was started on folic acid, thiamine and multivitamins. Initially patient presented with tachycardia, which resolved. For COPD, patient was started on Solumedrol, Duonebs, doxycycline, tessalon pearls, robitussin. Solu-medrol was tapered during this admission. Shortness of breath improved. PT evaluated ambulatory 02 saturations which were within normal limits. Labs and electrolytes were monitored and repleted as needed. WBC were elevated likely secondary to steroid use. Trending down appropriately. Urine cx grew Cornybacterium with low colony count, patient was asymptomatic, no abx were started at this time. On day of discharge, patient was doing well. Ambulating and tolerating diet. Offered no complaints at this time. SOB and coughing improving. Patient medically stable. Will discharge home today. Meds to beds were done for discharge medications. Patient to continue medrol dose taylor. Strongly advised alcohol and tobacco cessation. SW was consulted upon patients request. List of resources to end homelessness and substance abuse treatment and alcohol abuse provided. All questions and concerns were addressed. Instructed to follow up with [facility] within 1 week. Will need to repeat LFTs. Discharge Exam - Head Exam Head Exam: ATRAUMATIC, NORMAL INSPECTION - Eye Exam Eye Exam: EOMI, Normal appearance Pupil Exam: NORMAL ACCOMODATION, PERRL - ENT Exam ENT Exam: Mucous Membranes Moist - Neck Exam Neck exam: Full Rom - Respiratory Exam Respiratory Exam: Wheezes, NORMAL BREATHING PATTERN. absent: Rales, Rhonchi - Cardiovascular Exam Cardiovascular Exam: REGULAR RHYTHM, +S1, +S2 - GI/Abdominal Exam GI & Abdominal Exam: Normal Bowel Sounds, Soft. absent: Guarding, Rebound, Rigid, Tenderness - Extremities Exam Extremities exam: full ROM, normal inspection - Back Exam Back exam: NORMAL INSPECTION - Neurological Exam Neurological exam: Alert, Normal Gait, Oriented x3 - Psychiatric Exam Psychiatric exam: Normal Affect, Normal Mood - Skin Skin Exam: Dry, Normal Color, Warm Discharge Plan - Discharge Medications Prescriptions: Albuterol HFA [Ventolin HFA 90 mcg/actuation (8 g)] 2 puff IH [id number] PRN #1 puff PRN Reason: Wheezing chlordiazePOXIDE [Chlordiazepoxide HCl] 5 mg PO TID #6 cap Folic Acid 1 mg PO DAILY #30 tab Lisinopril [Zestril] 5 mg PO DAILY #30 tab Methylprednisolone [Medrol Dose Pack (21 tabs)] See Taper PO DAILY #21 mg Montelukast [Singulair] 10 mg PO DAILY #30 tab Multimineral/Multivitamin [Therapeutic-M Tab] 1 tab PO 0800 #30 tab Thiamine [Vitamin B1 Tab] 100 mg PO DAILY #30 tab - Follow Up Plan Condition: GUARDED Disposition: HOME/ ROUTINE Instructions: Asthma (DC), Asthma (GEN), Abuse of Alcohol (DC), Reactive Airways Disease (DC), Reactive Airways Disease (GEN) Additional Instructions: 1. Continue Medrol dose taylor as instructed 2. Continue medications as prescribed 3. Patient to follow up with [facility] within 1 week (repeat LFTs) 4. Strongly advise alcohol/tobacco cessation 5. List of resources to end homelessness and substance abuse treatment and alcohol abuse provided <Junaid Rouse - Last Filed: 02/03/17 13:44> Provider - Provider Date of Admission: 01/29/17 16:00 Attending physician: Junaid Rouse MD Hospital Course - Lab Results Lab Results: Micro Results 01/31/17 17:55 Urine Urine Culture - Final No Growth (<1,000 CFU/ML) Most Recent Lab Values WBC 13.1 10^3/ul (4.5-11.0) H 02/03/17 06:52 RBC 4.21 10^6/uL (3.5-6.1) 02/03/17 06:52 Hgb 13.4 g/dL (12.0-16.0) 02/03/17 06:52 Hct 41.5 % (36.0-48.0) 02/03/17 06:52 MCV 98.6 fl (80.0-105.0) 02/03/17 06:52 MCH 31.8 pg (25.0-35.0) 02/03/17 06:52 MCHC 32.3 g/dl (31.0-37.0) 02/03/17 06:52 RDW 14.5 % (11.5-14.5) 02/03/17 06:52 Plt Count 307 10^3/uL (120.0-450.0) 02/03/17 06:52 MPV 10.2 fl (7.0-11.0) 02/03/17 06:52 Gran % 65.4 % (50.0-68.0) 02/03/17 06:52 Lymph % (Auto) 24.4 % (22.0-35.0) 02/03/17 06:52 [place] % (Auto) 9.2 % (1.0-6.0) H 02/03/17 06:52 Eos % (Auto) 0.8 % (1.5-5.0) L 02/03/17 06:52 Baso % (Auto) 0.2 % (0.0-3.0) 02/03/17 06:52 Gran # 8.58 (1.4-6.5) H 02/03/17 06:52 Lymph # 3.2 (1.2-3.4) 02/03/17 06:52 [place] # 1.2 (0.1-0.6) H 02/03/17 06:52 Eos # 0.1 (0.0-0.7) 02/03/17 06:52 Baso # 0.02 K/mm3 (0.0-2.0) 02/03/17 06:52 Neutrophils % (Manual) 92 % (50.0-70.0) H 01/30/17 07:50 Lymphocytes % (Manual) 6 % (22.0-35.0) L 01/30/17 07:50 Monocytes % (Manual) 2 % (1.0-6.0) 01/30/17 07:50 Toxic Granulation 1+ 01/30/17 07:50 Platelet Evaluation Normal (NORMAL) 01/30/17 07:50 Plt Clumps, EDTA Present 01/30/17 07:50 Anisocytosis (manual) Slight 01/30/17 07:50 PT 10.4 Seconds (9.9-11.8) 01/29/17 13:49 INR 0.96 (0.93-1.08) 01/29/17 13:49 APTT 26.6 Seconds (23.7-30.8) 01/29/17 13:49 pCO2 42 mm/Hg (35-45) 01/29/17 13:38 pO2 134 mm/Hg (30-55) H 01/29/17 21:05 HCO3 24.8 mmol/L (21-28) 01/29/17 13:38 ABG pH 7.38 (7.35-7.45) 01/29/17 13:38 ABG Total CO2 26.1 mmol.L (22-28) 01/29/17 13:38 ABG O2 Saturation 95.6 % (95-98) 01/29/17 13:38 ABG Base Excess -0.4 mmol/L (-2.0-3.0) 01/29/17 13:38 ABG Potassium 2.6 mmol/L (3.6-5.2) L 01/29/17 13:38 VBG pH 7.46 (7.32-7.43) H 01/29/17 21:05 VBG pCO2 36.0 (40-60) L 01/29/17 21:05 VBG HCO3 25.6 mmol/l (21-28) 01/29/17 21:05 VBG Total CO2 26.7 mmol.L (22-28) 01/29/17 21:05 VBG O2 Sat (Calc) 99.4 % (40-65) H 01/29/17 21:05 VBG Base Excess 2.0 mmol/L (0.0-2.0) 01/29/17 21:05 VBG Potassium 4.1 mmol/L (3.6-5.2) 01/29/17 21:05 Sodium 137.0 mmol/L (132-148) 01/29/17 21:05 Chloride 103.0 mmol/L (98-107) 01/29/17 21:05 Glucose 181 mg/dl (65-105) H 01/29/17 21:05 Lactate 2.8 mmol/L (0.7-2.1) H 01/29/17 21:05 FiO2 21.0 % 01/29/17 21:05 Sodium 137 mmol/L (132-148) 02/03/17 06:52 Potassium 3.4 mmol/L (3.6-5.0) L 02/03/17 06:52 Chloride 101 mmol/L (98-107) 02/03/17 06:52 Carbon Dioxide 31 mmol/L (21-33) 02/03/17 06:52 Anion Gap 8 (10-20) L 02/03/17 06:52 BUN 20 mg/dL (7-21) 02/03/17 06:52 Creatinine 0.7 mg/dL (0.7-1.2) 02/03/17 06:52 Est GFR ( Amer) > 60 02/03/17 06:52 Est GFR (Non-Af Amer) > 60 02/03/17 06:52 Random Glucose 102 mg/dL (70-110) 02/03/17 06:52 Calcium 8.0 mg/dL (8.4-10.5) L 02/03/17 06:52 Phosphorus 4.8 mg/dL (2.5-4.5) H 02/03/17 06:52 Magnesium 1.9 mg/dL (1.7-2.2) 02/03/17 06:52 Total Bilirubin 0.3 mg/dL (0.2-1.3) 02/03/17 06:52 AST 61 U/L (14-36) H D 02/03/17 06:52 ALT 58 U/L (7-56) H 02/03/17 06:52 Alkaline Phosphatase 53 U/L (38-126) 02/03/17 06:52 Lactate Dehydrogenase 411 U/L (333-699) 01/29/17 13:49 Total Creatine Kinase 43 U/L (35-230) 01/29/17 13:49 Troponin I < 0.01 ng/mL 01/29/17 13:49 NT-Pro-B Natriuret Pep 34.8 pg/mL (0-450) 01/29/17 13:49 Total Protein 5.2 g/dL (5.8-8.3) L 02/03/17 06:52 Albumin 2.9 g/dL (3.0-4.8) L 02/03/17 06:52 Globulin 2.4 gm/dL 02/03/17 06:52 Albumin/Globulin Ratio 1.2 (1.1-1.8) 02/03/17 06:52 Arterial Blood Potassium 2.6 mmol/L (3.6-5.2) L 01/29/17 13:38 Venous Blood Potassium 4.1 mmol/L (3.6-5.2) 01/29/17 21:05 Urine Color Yellow (YELLOW) 01/29/17 13:58 Urine Appearance Clear (CLEAR) 01/29/17 13:58 Urine pH 6.0 (4.7-8.0) 01/29/17 13:58 Ur Specific [place] 1.010 (1.005-1.035) 01/29/17 13:58 Urine Protein Negative mg/dL (<30 mg/dL) 01/29/17 13:58 Urine Glucose (UA) Negative mg/dL (NEGATIVE) 01/29/17 13:58 Urine Ketones Negative mg/dL (NEGATIVE) 01/29/17 13:58 Urine Blood Negative (NEGATIVE) 01/29/17 13:58 Urine Nitrate Negative (NEGATIVE) 01/29/17 13:58 Urine Bilirubin Negative (NEGATIVE) 01/29/17 13:58 Urine Urobilinogen 1.0 E.U./dL (<1 E.U./dL) H 01/29/17 13:58 Ur Leukocyte Esterase Small Erik/uL (NEGATIVE) H 01/29/17 13:58 Urine RBC Negative /hpf (0-2) 01/29/17 13:58 Urine WBC 5 - 10 /hpf (0-6) 01/29/17 13:58 Ur Epithelial Cells 6 - 8 /hpf (0-5) 01/29/17 13:58 Amorphous Sediment Trace 01/29/17 13:58 Urine Opiates Screen Negative (NEGATIVE) 01/29/17 13:58 Urine Methadone Screen Negative (NEGATIVE) 01/29/17 13:58 Ur Barbiturates Screen Negative (NEGATIVE) 01/29/17 13:58 Ur Phencyclidine Scrn Negative (NEGATIVE) 01/29/17 13:58 Ur Amphetamines Screen Negative (NEGATIVE) 01/29/17 13:58 U Benzodiazepines Scrn Negative (NEGATIVE) 01/29/17 13:58 U Oth Cocaine Metabols Negative (NEGATIVE) 01/29/17 13:58 U Cannabinoids Screen Positive (NEGATIVE) H 01/29/17 13:58 Attending/Attestation - Attestation I have personally seen and examined this patient.: Yes I have fully participated in the care of the patient.: Yes I have reviewed all pertinent clinical information, including history, physical exam and plan: Yes Notes (Text): 02/03/17 13:42 Attending note; Patient seen and examined with resident. Patient is a 46-year-old female admitted with COPD exacerbation. Treated with DuoNeb treatment, IV Steroids, doxycycline and Robitussin. Alcohol withdrawal; Treated with Ativan and Librium. Continue multivitamin, thiamine, folic acid. Smoking cessation/alcohol cessation is strongly advised. 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 discharge today. Upon discharge the patient will be referred to [facility]. diagnosis; COPD exacerbation Smoker Homelessness
== END 2017-02-03 13:55 | disposition home or self-care (01) | DRG 88 ==
LOC: ED 12:58 → ERH 16:00 → 2RSO 21:46 → 3RSO 02-01 14:21
PROVIDERS: ADMIT Hospitalist; ATTEND Internal Medicine
PROC: 3E0F7GC Introduction of Other Therapeutic Substance into Respiratory Tract, Via Natural or Artificial Opening (ICD-10-PCS; principal; 2017-01-30)
DX: J44.1 Chronic obstructive pulmonary disease with (acute) exacerbation (principal); K70.30 Alcoholic cirrhosis of liver without ascites; B19.20 Unspecified viral hepatitis C without hepatic coma; F10.239 Alcohol dependence with withdrawal, unspecified; E87.6 Hypokalemia; T38.0X5A Adverse effect of glucocorticoids and synthetic analogues, initial encounter; D72.829 Elevated white blood cell count, unspecified; F17.210 Nicotine dependence, cigarettes, uncomplicated; K42.9 Umbilical hernia without obstruction or gangrene; Z91.19 Patient's noncompliance with other medical treatment and regimen; Z59.0 Homelessness; Z90.49 Acquired absence of other specified parts of digestive tract

== ENCOUNTER 2017-02-06 15:56 | Emergency (ER) | payer MEDICAID ==
[2017-02-06 16:08] VITALS: TEMP 98.9; BMI 29.2
--- NOTE | 2017-02-06 17:43 | ED PDOC ---
Arrival/HPI - General Chief Complaint: Lower Extremity Problem/Injury Time Seen by Provider: 02/06/17 15:59 Historian: Patient - History of Present Illness Narrative History of Present Illness (Text): 02/06/17 17:39 46yo female who present with complaint of left knee pain. Notes that pain started yesterday. Pain is with ambulation. Throbbing. 8/10. did not take any medication for the pain. denies trauma, fall, redness, swelling, any other complaint. Past Medical History - Provider Review Nursing Documentation Reviewed: Yes - Infectious Disease Hx of Infectious Diseases: None - Tetanus Immunization Tetanus Immunization: Unknown - Cardiac Hx Cardiac Disorders: No - Pulmonary Hx Respiratory Disorders: Yes Hx Asthma: Yes Hx Bronchitis: Yes Hx Chronic Obstructive Pulmonary Disease (COPD): Yes Hx Emphysema: Yes Other/Comment: pneumothorax with lung surgery - Neurological Hx Neurological Disorder: No Hx Alzheimer's Disease: No HX Cerebrovascular Accident: No Hx Dementia: No Hx Dizziness: No Hx Meningitis: No Hx Migraine: No Hx Parkinson's Disease: No Hx Seizures: No Hx Transient Ischemic Attacks (TIA): No - HEENT Hx HEENT Disorder: No - Renal Hx Renal Disorder: No - Endocrine/Metabolic Hx Endocrine Disorders: Yes - Hematological/Oncological Hx Blood Disorders: Yes Hx Hepatitis C: Yes - Integumentary Hx Dermatological Disorder: Yes (Multiple scabs, scratches covering body) - Musculoskeletal/Rheumatological Hx Falls: Yes - Gastrointestinal Hx Gastrointestinal Disorders: No Other/Comment: Umbilical hernia present - Genitourinary/Gynecological Hx Genitourinary Disorders: No Hx Sexually Transmitted Diseases: Yes (trichomonas) - Psychiatric Hx Psychophysiologic Disorder: Yes Hx Anxiety: Yes Hx Substance Use: Yes (former) Other/Comment: substance abuse, etoh - Surgical History Hx Appendectomy: Yes Hx Tonsillectomy: Yes Other/Comment: "lung surgery" - Anesthesia Hx Anesthesia: Yes Hx Anesthesia Reactions: No Hx Malignant Hyperthermia: No - Suicidal Assessment Feels Threatened In Home Enviroment: No Family/Social History - Physician Review Nursing Documentation Reviewed: Yes Family/Social History: Unknown Family HX Smoking Status: Heavy Smoker > 10 Cigarettes Daily Hx Alcohol Use: Yes Hx Substance Use: Yes (former) Substance used: HEROINE Hx Substance Use Treatment: Yes Allergies/Home Meds Allergies/Adverse Reactions: Allergies No Known Allergies Allergy (Verified 02/06/17 16:04) Review of Systems - Physician Review All systems were reviewed & negative as marked: Yes - Review of Systems Constitutional: Normal Eyes: Normal ENT: Normal Respiratory: Normal Cardiovascular: Normal Gastrointestinal: Normal Genitourinary Female: Normal Musculoskeletal: Arthralgias (Left knee) Skin: Normal Neurological: Normal Endocrine: Normal Hemo/Lymphatic: Normal Psychiatric: Normal Physical Exam Vital Signs Reviewed: Yes Vital Signs Temp Pulse Resp BP Pulse Ox 02/06/17 18:00 18 99 02/06/17 17:55 89 18 112/67 96 02/06/17 16:06 98.9 F 97 H 20 114/69 96 Temperature: Afebrile Blood Pressure: Normal Pulse: Regular Respiratory Rate: Normal Appearance: Positive for: Well-Appearing, Non-Toxic, Comfortable Pain Distress: None Mental Status: Positive for: Alert and Oriented X 3 - Systems Exam Head: Present: Atraumatic, Normocephalic Pupils: Present: PERRL Extroacular Muscles: Present: EOMI Conjunctiva: Present: Normal Mouth: Present: Moist Mucous Membranes Neck: Present: Normal Range of Motion Respiratory/Chest: Present: Clear to Auscultation, Good Air Exchange. No: Respiratory Distress, Accessory Muscle Use Cardiovascular: Present: Regular Rate and Rhythm, Normal S1, S2. No: Murmurs Abdomen: Present: Normal Bowel Sounds. No: Tenderness, Distention, Peritoneal Signs Back: Present: Normal Inspection Upper Extremity: Present: Normal Inspection. No: Cyanosis, Edema Lower Extremity: Present: NORMAL PULSES, Normal ROM, Tenderness (Medial left knee), Neurovascularly Intact. No: Edema, CALF TENDERNESS, Soumya's Sign, Swelling, Erythema, Temperature Abnormalties Neurological: Present: GCS=15, CN II-XII Intact, Speech Normal Skin: Present: Warm, Dry, Normal Color. No: Rashes Psychiatric: Present: Alert, Oriented x 3, Normal Insight, Normal Concentration Medical Decision Making ED Course and Treatment: 02/06/17 17:44 Left knee xray - ???Growth noted. No acute fracture/dislocation Result was DW the pt. she was strongly advised to f/u with ortho. Knee immobilizer was placed and cane given. - RAD Interpretation Radiology Orders: 02/06/17 16:26 KNEE WITH PATELLA LEFT 3 VIEW [RAD] Stat - Medication Orders Current Medication Orders: Discontinued Medications Ketorolac Tromethamine (Toradol) 60 mg IM STAT STA Stop: 02/06/17 16:28 Last Admin: 02/06/17 16:45 Dose: 60 mg MAR Pain Assessment Document 02/06/17 16:45 HI (Rec: 02/06/17 16:45 HI [id number]) Pain Reassessment Is this a pain reassessment? No Sleep Is patient sleeping during reassessment? No Presence of Pain Presence of Pain Yes IM Administration Charges Document 02/06/17 16:45 HI (Rec: 02/06/17 16:45 HI [id number]) Injection Site MAR Injection Site Left Deltoid Charges for Administration # of IM Administrations 1 Disposition/Present on Arrival - Present on Arrival Any Indicators Present on Arrival: No History of DVT/PE: No History of Uncontrolled Diabetes: No Urinary Catheter: No History of Decub. Ulcer: No History Surgical Site Infection Following: None - Disposition Have Diagnosis and Disposition been Completed?: Yes Diagnosis: Knee pain Disposition: HOME/ ROUTINE Disposition Time: 17:45 Patient Plan: Discharge Condition: STABLE Discharge Instructions (ExitCare): Knee Pain (ED) Additional Instructions: Follow up with Orthopedist Return to ED for any new or worsening symptoms Prescriptions: Naproxen [Naprosyn] 500 mg PO BID #20 tab traMADol [Ultram] 50 mg PO TID #12 tab Referrals: PCP,JEIMY [Primary Care Provider] - Follow up with primary Lanny Morales MD [Staff Provider] - Follow up with primary [facility] [Outside] - Follow up with primary Forms: [employer] (Portuguese)
[2017-02-06 17:56] VITALS: BP 112/67; PULSE 89; RESP 18
[2017-02-06 18:00] VITALS: O2SAT 99
--- NOTE | 2017-02-07 08:25 | RAD ---
PROCEDURE: Left Knee Radiographs. HISTORY: Pain. COMPARISON: None. FINDINGS: BONES: There is an exostosis in the metaphysis of the distal femur on the lateral side. This projects superiorly and measures 36 mm in length JOINTS: Normal. No osteoarthritis. JOINT EFFUSION: None. OTHER FINDINGS: None. IMPRESSION: There is an exostosis in the metaphysis of the distal femur on the lateral side. This projects superiorly and measures 36 mm in length
== END 2017-02-06 18:00 | disposition home or self-care (01) ==
LOC: ED 15:56
DX: M25.562 Pain in left knee (principal); F17.210 Nicotine dependence, cigarettes, uncomplicated
CPT/HCPCS: 73562; 96372; 99285; J1885

== ENCOUNTER 2017-02-25 23:25 | Emergency (ER) | payer MEDICAID ==
[2017-02-25 23:25] VITALS: BMI 28.3
[2017-02-25 23:42] VITALS: TEMP 98
[2017-02-26] MEDS ORDERED: Albuterol-Ipratrop 3 mg / 0.5 (3 ml) UD IH STA (00:16)
--- NOTE | 2017-02-26 00:25 | ED PDOC ---
Arrival/HPI - General Chief Complaint: Shortness Of Breath Time Seen by Provider: 02/25/17 23:53 Historian: Patient - History of Present Illness Narrative History of Present Illness (Text): 02/26/17 00:17 46 year old female, whose past medical history includes drug abuse, COPD and multiple admissions for asthma, who presents to the emergency department complaining of shortness of breath for the past hour. Patient reports her "COPD is acting up". She states she has a prescription for steroids, but has not taken any today. Patient was seen and evaluated in the emergency department on 02/24/17 for a cough and "asthma" and was discharged. Patient denies any chest pain, fever, or any other complaints. PMD: Dr. Golden Time/Duration: 1 hour Symptom Onset: Sudden Symptom Course: Unchanged Activities at Onset: Light Context: Home Past Medical History - Provider Review Nursing Documentation Reviewed: Yes - Infectious Disease Hx of Infectious Diseases: None - Tetanus Immunization Tetanus Immunization: Unknown - Cardiac Hx Cardiac Disorders: No - Pulmonary Hx Asthma: Yes Hx Chronic Obstructive Pulmonary Disease (COPD): Yes - Neurological Hx Neurological Disorder: No Hx Alzheimer's Disease: No HX Cerebrovascular Accident: No Hx Dementia: No Hx Dizziness: No Hx Meningitis: No Hx Migraine: No Hx Parkinson's Disease: No Hx Seizures: No Hx Transient Ischemic Attacks (TIA): No - HEENT Hx HEENT Disorder: No - Renal Hx Renal Disorder: No - Endocrine/Metabolic Hx Endocrine Disorders: No - Hematological/Oncological Hx Blood Disorders: Yes Hx Hepatitis C: Yes - Integumentary Hx Dermatological Disorder: Yes - Musculoskeletal/Rheumatological Hx Falls: Yes - Gastrointestinal Hx Gastrointestinal Disorders: Yes Other/Comment: Umbilical hernia - Genitourinary/Gynecological Hx Genitourinary Disorders: No Hx Sexually Transmitted Diseases: Yes (trichomonas) - Psychiatric Hx Psychophysiologic Disorder: Yes Hx Anxiety: Yes Hx Substance Use: Yes (former) - Surgical History Hx Appendectomy: Yes Hx Tonsillectomy: Yes - Anesthesia Hx Anesthesia: Yes Hx Anesthesia Reactions: No Hx Malignant Hyperthermia: No - Suicidal Assessment Feels Threatened In Home Enviroment: No Family/Social History - Physician Review Nursing Documentation Reviewed: Yes Family/Social History: No Known Family HX Smoking Status: Heavy Smoker > 10 Cigarettes Daily Hx Alcohol Use: Yes Frequency of alcohol use: Daily Hx Substance Use: Yes (former) Substance used: HEROIN Hx Substance Use Treatment: Yes Allergies/Home Meds Allergies/Adverse Reactions: Allergies No Known Allergies Allergy (Verified 02/26/17 02:30) Review of Systems - Physician Review All systems were reviewed & negative as marked: Yes - Review of Systems Constitutional: absent: Fevers Respiratory: SOB Cardiovascular: absent: Chest Pain Physical Exam - Physical Exam Narrative Physical Exam (Text): Constitutional: No acute distress. Alcohol on breath. Head: Normocephalic. Atraumatic. Eyes: PERRL. ENT: Moist mucous membranes. Neck: Supple. Cardiovascular: Regular rate. Chest: No tenderness. Respiratory: Expiratory wheezing. Diminished breath sounds diffusely. GI: Soft. Nontender. Nondistended. Back: No CVA tenderness. Musculoskeletal: No tenderness or swelling of extremities. Skin: No rash. Neurologic: Alert, no focal deficit. Vital Signs Reviewed: Yes Vital Signs Temp Pulse Resp BP Pulse Ox 02/26/17 04:30 97 H 16 121/69 95 02/26/17 00:15 24 02/26/17 00:02 103 H 02/25/17 23:41 98.0 F 112 H 19 124/69 97 Temperature: Afebrile Blood Pressure: Normal Pulse: Tachycardic Respiratory Rate: Normal Appearance: Positive for: Well-Appearing, Non-Toxic, Comfortable Pain Distress: None Mental Status: Positive for: Alert and Oriented X 3 Medical Decision Making ED Course and Treatment: 02/26/17 00:17 Plan: -- Douneb -- PredniSONE Tab -- EKG -- Reassess and disposition Progress Notes: EKG shows NSR at [address] elevations. Interpreted by me. 02/26/17 06:42 Patient with much improved breathing. Patient slept in ED, feels well to be discharged. Steady gait. - Lab Interpretations I have reviewed the lab results: Yes - EKG Interpretation Interpreted by ED Physician: Yes Type: 12 lead EKG - Medication Orders Current Medication Orders: Discontinued Medications Albuterol/Ipratropium (Duoneb 3 Mg/0.5 Mg (3 Ml) Ud) 3 ml IH Q15M STA Stop: 02/26/17 00:17 Last Admin: 02/26/17 00:22 Dose: 3 ml Prednisone (Prednisone Tab) 60 mg PO STAT ONE Stop: 02/26/17 00:18 Last Admin: 02/26/17 00:22 Dose: 60 mg - Scribe Statement The provider has reviewed the documentation as recorded by the Jc Reddy Provider Jc Attestation: All medical record entries made by the Jc were at my direction and personally dictated by me. I have reviewed the chart and agree that the record accurately reflects my personal performance of the history, physical exam, medical decision making, and the department course for this patient. I have also personally directed, reviewed, and agree with the discharge instructions and disposition. Disposition/Present on Arrival - Present on Arrival Any Indicators Present on Arrival: No History of DVT/PE: No History of Uncontrolled Diabetes: No Urinary Catheter: No History of Decub. Ulcer: No History Surgical Site Infection Following: None - Disposition Have Diagnosis and Disposition been Completed?: Yes Diagnosis: COPD exacerbation, Alcohol intoxication Disposition: HOME/ ROUTINE Disposition Time: 06:37 Patient Plan: Discharge Patient Problems: Current Active Problems Problem Status Onset Alcohol intoxication Acute COPD exacerbation Acute Condition: STABLE Discharge Instructions (ExitCare): Asthma (ED) Referrals: Brad Golden MD [Primary Care Provider] - Follow up with primary Forms: [employer] (S[place]i)
[2017-02-26 04:30] VITALS: O2SAT 95
[2017-02-26 06:42] VITALS: BP 121/76; PULSE 88; RESP 19
--- NOTE | 2017-02-27 10:21 | CARD ---
APPROVED REPORT EKG Measurement Heart [id number] <Conclusion> Sinus tachycardia Otherwise normal ECG
== END 2017-02-26 06:59 | disposition home or self-care (01) ==
LOC: ED 23:25
DX: J44.1 Chronic obstructive pulmonary disease with (acute) exacerbation (principal); F10.129 Alcohol abuse with intoxication, unspecified; F17.210 Nicotine dependence, cigarettes, uncomplicated

== ENCOUNTER 2017-02-28 00:42 | Inpatient (IN) | payer MEDICAID ==
[2017-02-28 00:43] VITALS: BMI 28.3
[2017-02-28] MEDS ORDERED: Levalbuterol 1.25 MG/3 ML Inhal Soln UD IH STA ×3 (01:47→01:52)
--- NOTE | 2017-02-28 01:53 | ED PDOC ---
Arrival/HPI - General Historian: Patient EM Caveat: Acuity of Condition - History of Present Illness Time/Duration: Prior to Arrival, 4-6 hours Symptom Onset: Gradual Symptom Course: Unchanged Quality: Tightness Severity Level: 4 Activities at Onset: Rest, Light Context: Sitting, Standing <Constance Michael - Last Filed: 02/28/17 04:14> <SmithTatum Aquilino - Last Filed: 02/28/17 04:44> - General Chief Complaint: Shortness Of Breath Time Seen by Provider: 02/28/17 01:06 - History of Present Illness Narrative History of Present Illness (Text): 02/28/17 02:09 46 years old female with PMH COPD, asthma, current smoker, alcohol/heroin abuse , multiple previous admissions to [facility] [place], presents for shortness of breath for past few hours. Pt is homeless, and states that the cold weather is making her asthma worse. Pt is complaining of wheezing, a dry cough, chest tightness, and mild left sided chest pain. Denies radiation of pain, diaphoresis, nausea, vomiting, abdominal pain, fever, chills, urinary symptoms, back pain, pleuritic chest pain. Pt states that it feels like her previous asthma exacerbations. No PCP (Constance Michael) Associated Symptoms (Text): 02/28/17 02:39 Denies radiation of pain, diaphoresis, nausea, vomiting, abdominal pain, fever, chills, urinary symptoms, back pain, pleuritic chest pain. (Constance Michael) Past Medical History - Provider Review Nursing Documentation Reviewed: Yes - Infectious Disease Hx of Infectious Diseases: None - Tetanus Immunization Tetanus Immunization: Unknown - Cardiac Hx Cardiac Disorders: No Hx Hypertension: Yes - Pulmonary Hx Asthma: Yes Hx Chronic Obstructive Pulmonary Disease (COPD): Yes - Neurological Hx Neurological Disorder: No Hx Alzheimer's Disease: No HX Cerebrovascular Accident: No Hx Dementia: No Hx Dizziness: No Hx Meningitis: No Hx Migraine: No Hx Parkinson's Disease: No Hx Seizures: No Hx Transient Ischemic Attacks (TIA): No - HEENT Hx HEENT Disorder: No - Renal Hx Renal Disorder: No - Endocrine/Metabolic Hx Endocrine Disorders: No - Hematological/Oncological Hx Blood Disorders: Yes Hx Hepatitis C: Yes - Integumentary Hx Dermatological Disorder: Yes - Musculoskeletal/Rheumatological Hx Falls: Yes - Gastrointestinal Hx Gastrointestinal Disorders: Yes Hx Pancreatitis: Yes Other/Comment: Umbilical hernia /cirrhosis - Genitourinary/Gynecological Hx Genitourinary Disorders: No Hx Sexually Transmitted Diseases: Yes (trichomonas) - Psychiatric Hx Psychophysiologic Disorder: Yes Hx Anxiety: Yes Hx Depression: Yes Hx Substance Use: Yes (former) Other/Comment: alcohol - Surgical History Hx Appendectomy: Yes Hx Tonsillectomy: Yes - Anesthesia Hx Anesthesia: Yes Hx Anesthesia Reactions: No Hx Malignant Hyperthermia: No - Suicidal Assessment Feels Threatened In Home Enviroment: No <Constance Michael - Last Filed: 02/28/17 04:14> Family/Social History - Physician Review Nursing Documentation Reviewed: Yes Family/Social History: No Known Family HX Smoking Status: Heavy Smoker > 10 Cigarettes Daily Hx Alcohol Use: Yes Frequency of alcohol use: Daily Hx Substance Use: Yes (former) Substance used: HEROIN Hx Substance Use Treatment: Yes <Constance Michael - Last Filed: 02/28/17 04:14> Allergies/Home Meds <Constance Michael - Last Filed: 02/28/17 04:14> <Tatum Smith - Last Filed: 02/28/17 04:44> Allergies/Adverse Reactions: Allergies No Known Allergies Allergy (Verified 02/28/17 01:36) Home Medications: Home Meds Medication Instructions Recorded Confirmed traZODone [Desyrel] 50 mg PO HS PRN 02/28/17 02/28/17 Review of Systems - Physician Review All systems were reviewed & negative as marked: Yes - Review of Systems Constitutional: absent: Fatigue, Fevers Eyes: absent: Vision Changes ENT: absent: Hearing Changes Respiratory: SOB, Cough, Wheezing. absent: Sputum Cardiovascular: absent: Chest Pain Gastrointestinal: absent: Abdominal Pain, Constipation, Diarrhea, Nausea, Vomiting Genitourinary Female: absent: Dysuria, Hematuria Musculoskeletal: absent: Back Pain Skin: absent: Rash Neurological: absent: Headache <Constance Michael - Last Filed: 02/28/17 04:14> Physical Exam Vital Signs Reviewed: Yes Temperature: Afebrile Blood Pressure: Normal Pulse: Tachycardic Respiratory Rate: Tachypneic Appearance: Positive for: Uncomfortable, Other (middle aged female in respiratory distress, using accessory muscles) Pain Distress: Mild Mental Status: Positive for: Alert and Oriented X 3 - Systems Exam Head: Present: Atraumatic, Normocephalic Pupils: Present: PERRL Extroacular Muscles: Present: EOMI Conjunctiva: Present: Normal Mouth: Present: Moist Mucous Membranes Pharnyx: No: ERYTHEMA Respiratory/Chest: Present: Decreased Breath Sounds Cardiovascular: Present: Tachycardic Abdomen: Present: Normal Bowel Sounds. No: Tenderness Upper Extremity: No: Edema Lower Extremity: No: CALF TENDERNESS Neurological: Present: GCS=15, Speech Normal Skin: Present: Warm, Dry Psychiatric: Present: Alert, Oriented x 3 <Constance Michael - Last Filed: 02/28/17 04:14> Vital Signs Temp Pulse Resp BP Pulse Ox 02/28/17 03:18 119 H 19 126/78 98 02/28/17 02:30 93 L 02/28/17 01:59 100 H 20 126/80 98 02/28/17 01:37 98.4 F 130 H 28 H 132/87 93 L 02/28/17 01:10 23 Medical Decision Making - Lab Interpretations I have reviewed the lab results: Yes Interpretation: No sign. chg./baseline - RAD Interpretation Induction Brazer: ED Physician - EKG Interpretation Interpreted by ED Physician: Yes Type: 12 lead EKG Comparison: Com.w/previous EKG - Transfer of Care Patient signed out to Dr:: Mili <Constance Michael - Last Filed: 02/28/17 04:14> <Tatum Smith - Last Filed: 02/28/17 04:44> ED Course and Treatment: 02/28/17 01:54 46 years old female with hx of asthma/copd, alcohol abuse, presents for asthma exacerbation: - Xopenex x3, Solumedrol IV - Albuterol inhaler - Labs, cardiac iso - O2, ABG - CXR, EKG - reassess 02/28/17 03:22 Pt has some shakes. Will give Ativan 0.5 mg IV once. 02/28/17 03:53 Pt breathing effort is better, however, still needs oxygen. Pt to be put on bipap 03/22, 80% FiO2. Discussed patient with Dr Garces and medical orderly. Admitted to Tele. (Constance Michael) Patient Seen With Resident: In agreement with resident note which contains more details about the patient. Patient was seen and evaluated with resident. Came up with plan and treatment together. A 46 year old female with shortness of breath. Additional HPI as noted by resident. On physical exam, patient is in significant respiratory distress, 32 per minute, pulse ox of 94% with supplemental oxygen, not moving air very well, diffuse b/l wheezing on inspiration, patient is retracting. Ordered EKG, chest xray, labs and urinalysis. Will give patient Xopenex and Solumedrol and 10 mg continuous albuterol. Patient changed her mind and now consents to bipap. ( Tatum Smith) - Lab Interpretations Narrative Lab Interpretation (Text): 02/28/17 03:55 leukocytosis (pt is on steroids) ABG shows hypoxia pO2 70 on 28% FiO2, LFts elevated (Constance Michael) Lab Results: 02/28/17 02:00 02/28/17 02:00 Lab Results 02/28/17 02:19: pCO2 51 H, pO2 70.0 L, HCO3 33.1 H, ABG pH 7.42, ABG Total CO2 34.7 H, ABG O2 Saturation 97.1, ABG O2 Content 17.2, ABG Base Excess 7.2 H, ABG Hemoglobin 13.4, ABG Carboxyhemoglobin 5.9 H, POC ABG HHb (Measured) 2.7, ABG Methemoglobin 0.4, ABG O2 Capacity 17.7, Hgb O2 Saturation 90.9 L, FiO2 28.0 02/28/17 02:00: Sodium 136, Potassium 3.9, Chloride 97 L, Carbon Dioxide 36 H, Anion Gap 7 L, BUN 10, Creatinine 0.6 L, Est GFR ( Amer) > 60, Est GFR ( Non-Af Amer) > 60, Random Glucose 118 H, Calcium 8.5, Total Bilirubin 0.9, AST 48 H D, ALT 72 H, Alkaline Phosphatase 93, Lactate Dehydrogenase 607, Total Creatine Kinase 61, Troponin I < 0.01 D, Total Protein 6.6, Albumin 3.6, Globulin 3.0, Albumin/Globulin Ratio 1.2 02/28/17 02:00: WBC 17.0 H D, RBC 4.16, Hgb 13.8, Hct 40.9, MCV 98.3, MCH 33.2, MCHC 33.7, RDW 14.7 H, Plt Count 364, MPV 10.1, Gran % 78.0 H, Lymph % (Auto) 13.7 L, [place] % (Auto) 7.2 H, Eos % (Auto) 0.9 L, Baso % (Auto) 0.2, Gran # 13.22 H, Lymph # 2.3, [place] # 1.2 H, Eos # 0.2, Baso # 0.03 - RAD Interpretation Narrative RAD Interpretations (Text): 02/28/17 04:06 CXR: no acute changes (Constance Michael) Radiology Orders: 02/28/17 01:57 CHEST PORTABLE [RAD] Stat - EKG Interpretation EKG Interpretation (Text): 02/28/17 04:06 Sinus tachycardia 130 HR (Constance Michael) - Medication Orders Current Medication Orders: Levalbuterol HCl (Xopenex) 0.63 mg IH Q4H JAKC Levalbuterol HCl (Xopenex) 0.63 mg IH Q2H PRN PRN Reason: Shortness of Breath Methylprednisolone (Solu-Medrol) 40 mg IVP Q12H JACK Nicotine (Nicoderm Cq) 1 patch TD DAILY JACK Pantoprazole Sodium (Protonix Inj) 40 mg IVP DAILY JACK Discontinued Medications Albuterol Sulfate (Albuterol 0.5% Inhal Yue (5 Mg/ Ml) 20 Ml) 10 mg IH STAT STA Stop: 02/28/17 02:26 Last Admin: 02/28/17 02:49 Dose: 10 mg Methylprednisolone 1 gm/ (Sodium Chloride) 250 mls @ 250 mls/hr IV ONCE ONE Stop: 02/28/17 02:47 Last Admin: 02/28/17 03:49 Dose: 250 mls/hr eMAR Start Stop Document 02/28/17 03:49 SUZETTE (Rec: 02/28/17 03:49 SUZETTE [facility]-[id number]) Intravenous Solution Start Date 02/28/17 Start Time 02:35 End Date 02/28/17 End time 03:45 Total Infusion Time 70 Levalbuterol HCl (Xopenex) 1.25 mg IH STAT STA Stop: 02/28/17 01:48 Last Admin: 02/28/17 01:55 Dose: 1.25 mg Levalbuterol HCl (Xopenex) 1.25 mg IH STAT STA Stop: 02/28/17 01:52 Last Admin: 02/28/17 02:22 Dose: 1.25 mg Levalbuterol HCl (Xopenex) 1.25 mg IH STAT STA Stop: 02/28/17 01:53 Last Admin: 02/28/17 02:31 Dose: Not Given Non-Admin Reason: Patient Refused Lorazepam (Ativan) 0.5 mg IVP ONCE ONE PRN Reason: Protocol Stop: 02/28/17 03:22 Last Admin: 02/28/17 03:28 Dose: 0.5 mg IVP Administration Document 02/28/17 03:28 AB (Rec: 02/28/17 03:29 AB [id number]) Charges for Administration # of IVP Administrations 1 - PA / APPLIANCE COUNSELOR / Resident Statement MD/DO has reviewed & agrees with the documentation as recorded. MD/DO has examined the patient and agrees with the treatment plan. <Constance Michael - Last Filed: 02/28/17 04:14> - Scribe Statement The provider has reviewed the documentation as recorded by the Scribe <Tatum Smith - Last Filed: 02/28/17 04:44> - Scribe Statement Rubens Thompson Provider Scribe Attestation: All medical record entries made by the Scribe were at my direction and personally dictated by me. I have reviewed the chart and agree that the record accurately reflects my personal performance of the history, physical exam, medical decision making, and the department course for this patient. I have also personally directed, reviewed, and agree with the discharge instructions and disposition. (Tatum Smith) Disposition/Present on Arrival - Present on Arrival Any Indicators Present on Arrival: No History of DVT/PE: No History of Uncontrolled Diabetes: No Urinary Catheter: No History of Decub. Ulcer: No History Surgical Site Infection Following: None - Disposition Have Diagnosis and Disposition been Completed?: Yes Disposition Time: 04:07 Patient Plan: Admission, Telemetry <Constance Michael - Last Filed: 02/28/17 04:14> <Tatum Smith - Last Filed: 02/28/17 04:44> - Disposition Diagnosis: COPD exacerbation, Asthma exacerbation Disposition: HOSPITALIZED Patient Problems: Current Active Problems Problem Status Onset COPD exacerbation Acute COPD exacerbation Acute Asthma attack Acute Condition: FAIR
[2017-02-28] MEDS ORDERED: Albuterol 0.5% Inhal Sol (5 mg/ ml) 20 ml IH STA (02:25)
[2017-02-28] MEDS: methylPREDNISolone 1 GM in Sodium Chloride 0.9% 250 ML IV ONE ×2 (02:37→03:49)
[2017-02-28 02:38] LABS: ARTERIAL BLOOD GAS HCO3 33.1 mmol/L (21-28); ARTERIAL BLOOD GAS O2 CAPACITY 17.7 mL/dl (16-24); ARTERIAL BLOOD GAS O2 CONTENT 17.2 ML/dl (15-23); ARTERIAL BLOOD GAS PH 7.42 (7.35-7.45); ARTERIAL BLOOD HGB O2 SAT 90.9 % (95.0-98.0); CARBOXYHEMOGLOBIN 5.9 % (0.5-1.5); HHB 2.7 % (0-5); METHEMOGLOBIN 0.4 % (0.0-3.0)
[2017-02-28 02:41] LABS: BASO # 0.03 K/mm3 (0.0-2.0); BASO % 0.2 % (0.0-3.0); EOS # 0.2 (0.0-0.7); EOS % 0.9 % (1.5-5.0); GRAN # 13.22 (1.4-6.5); HEMATOCRIT 40.9 % (36.0-48.0); LYMPH # 2.3 (1.2-3.4); LYMPH % 13.7 % (22.0-35.0); MEAN CELL VOLUME 98.3 fl (80.0-105.0); MEAN CORPUSCULAR HEMOGLOBIN 33.2 pg (25.0-35.0); MEAN CORPUSCULAR HGB CONC 33.7 g/dl (31.0-37.0); MEAN PLATELET VOLUME 10.1 fl (7.0-11.0); MONO # 1.2 (0.1-0.6); MONO % 7.2 % (1.0-6.0); RED CELL DISTRIBUTION WIDTH 14.7 % (11.5-14.5)
[2017-02-28 02:49] LABS: ALB/GLOB RATIO 1.2 (1.1-1.8); ALKALINE PHOSPHATASE 93 U/L (38-126); ALT/SGPT 72 U/L (7-56); AST/SGOT 48 U/L (14-36); BILIRUBIN,TOTAL 0.9 mg/dL (0.2-1.3); BLOOD UREA NITROGEN 10 mg/dL (7-21); CALCIUM 8.5 mg/dL (8.4-10.5); CARBON DIOXIDE 36 mmol/L (21-33); CHLORIDE 97 mmol/L (98-107); GFR AFRICAN-AMERICAN > 60; GLUCOSE,RANDOM 118 mg/dL (70-110); POTASSIUM 3.9 mmol/L (3.6-5.0); SODIUM 136 mmol/L (132-148); TOTAL PROTEIN 6.6 g/dL (5.8-8.3)
[2017-02-28 03:12] LABS: TROPONIN I < 0.01 ng/mL
[2017-02-28] MEDS ORDERED: Levalbuterol 0.63 MG/3 ML Inhal Soln UD IH PRN (04:36)
--- NOTE | 2017-02-28 04:42 | CP.PCM.HP ---
<Becki Graves - Last Filed: 02/28/17 05:20> History of Present Illness - History of Present Illness History of Present Illness: CC: "I have COPD" HPI: Patient is a 46 year old female with past medical history of COPD, asthma, alcohol/heroin abuse, homelessness, Hep C, liver cirrhosis presents to the ED for worsening shortness of breath. Patient states that she has been using her rescue inhaler all day with no improvement in symptoms. Reports that wheezing has been getting worse due to the cold weather. Admits to having chest tightness and non-productive cough. Patient has a history of alcohol abuse, last drink was this afternoon. Offers no other complaints at this time. Denies headaches, dizziness, fevers/chills, nausea/vomiting, cp, palpitations, abdominal pain, urinary symptoms, changes in bowel habits. Denies auditory/ visual hallucinations, suicidal/homicidal ideation. PMD: none Allergies: NKDA Medications: Albuterol, steroids Medical Hx: COPD, asthma (never been intubated), alcohol/heroin abuse, Hep C, liver cirrhosis Surgical Hx: Appendectomy, tonsillectomy Social Hx: Smokes 1/2 pk/day for >30 years, drinks 5-6 cans of four frances daily, denies illicit drug use; homeless Family Hx: Father - DM; Mother - healthy Present on Admission - Present on Admission Any Indicators Present on Admission: No Review of Systems - Constitutional Constitutional: absent: Chills, Fever - EENT Eyes: absent: Blurred Vision, Change in Vision Ears: absent: Dizziness - Cardiovascular Cardiovascular: Dyspnea. absent: Chest Pain, Lightheadedness, Palpitations - Respiratory Respiratory: Cough (non-productive), Dyspnea, Wheezing - Gastrointestinal Gastrointestinal: absent: Abdominal Pain, Constipation, Cramping, Diarrhea, Nausea, Vomiting - Genitourinary Genitourinary: absent: Dysuria, Hematuria, Urinary Frequency - Musculoskeletal Musculoskeletal: absent: Back Pain, Numbness, Tingling - Neurological Neurological: Tremor. absent: Dizziness, Headaches - Psychiatric Psychiatric: Anxiety. absent: Depression Past Patient History - Infectious Disease Hx of Infectious Diseases: None - Tetanus Immunizations Tetanus Immunization: Unknown - Past Medical History & Family History Past Medical History?: Yes - Past Social History Smoking Status: Heavy Smoker > 10 Cigarettes Daily - CARDIAC Hx Cardiac Disorders: No Hx Hypertension: Yes - PULMONARY Hx Asthma: Yes Hx Chronic Obstructive Pulmonary Disease (COPD): Yes - NEUROLOGICAL Hx Neurological Disorder: No Hx Alzheimer's Disease: No HX Cerebrovascular Accident: No Hx Dementia: No Hx Dizziness: No Hx Meningitis: No Hx Migraine: No Hx Parkinson's Disease: No Hx Seizures: No Hx Transient Ischemic Attacks (TIA): No - HEENT Hx HEENT Problems: No - RENAL Hx Chronic Kidney Disease: No - ENDOCRINE/METABOLIC Hx Endocrine Disorders: No - HEMATOLOGICAL/ONCOLOGICAL Hx Blood Disorders: Yes Hx Hepatitis C: Yes - INTEGUMENTARY Hx Dermatological Problems: Yes - MUSCULOSKELETAL/RHEUMATOLOGICAL Hx Falls: Yes - GASTROINTESTINAL Hx Gastrointestinal Disorders: Yes Hx Pancreatitis: Yes Other/Comment: Umbilical hernia /cirrhosis - GENITOURINARY/GYNECOLOGICAL Hx Genitourinary Disorders: No Hx Sexually Transmitted Disorders: Yes (trichomonas) - PSYCHIATRIC Hx Psychophysiologic Disorder: Yes Hx Anxiety: Yes Hx Depression: Yes Hx Substance Use: Yes (former) Other/Comment: alcohol - SURGICAL HISTORY Hx Appendectomy: Yes Hx Tonsillectomy: Yes - ANESTHESIA Hx Anesthesia: Yes Hx Anesthesia Reactions: No Hx Malignant Hyperthermia: No Meds Allergies/Adverse Reactions: Allergies Allergy/AdvReac Type Severity Reaction Status Date / Time No Known Allergies Allergy Verified 02/28/17 01:36 Physical Exam - Constitutional Appears: In Acute Distress, Unkempt, Older Than Stated Age, Chronically Ill - Head Exam Head Exam: ATRAUMATIC, NORMAL INSPECTION - Eye Exam Eye Exam: EOMI, Normal appearance Pupil Exam: NORMAL ACCOMODATION - ENT Exam ENT Exam: Mucous Membranes Moist - Neck Exam Neck exam: Positive for: Full Rom - Respiratory Exam Respiratory Exam: Accessory Muscle Use, Wheezes, Respiratory Distress - Cardiovascular Exam Cardiovascular Exam: Tachycardia, +S1, +S2 - GI/Abdominal Exam GI & Abdominal Exam: Normal Bowel Sounds, Soft. absent: Guarding, Rebound, Rigid, Tenderness - Extremities Exam Extremities exam: Positive for: normal inspection, pedal pulses present. Negative for: calf tenderness - Back Exam Back exam: NORMAL INSPECTION - Neurological Exam Neurological exam: Alert, Oriented x3 - Psychiatric Exam Psychiatric exam: Anxious, Normal Affect - Skin Skin Exam: Dry, Normal Color, Warm Results - Vital Signs Recent Vital Signs: Last Vital Signs Temp 98.4 F 02/28/17 01:37 Pulse 119 H 02/28/17 03:18 Resp 19 02/28/17 03:18 BP 126/78 11/14/17 03:18 Pulse Ox 98 02/28/17 03:18 - Labs Result Diagrams: 02/28/17 02:00 02/28/17 02:00 Assessment & Plan - Assessment and Plan (Free Text) Assessment: Patient is a 46 year old female with past medical history of COPD, asthma, pneumothorax s/p pleurodesis, arthritis, alcohol/heroin abuse, homelessness, Hep C, liver cirrhosis presents to the ED for worsening shortness of breath Plan: 1. Acute COPD exacerbation -Stable, afebrile -Admit inpatient to telemetry -ABG reviewed -Solu-medrol 40mg Q12 IVP -Xopenex q4H JACK, Xopenex q2H prn SOB -Sats 94% Supplemental O2, patient placed on Bipap in the ED 2. Leukocytosis -Likely secondary to steroid use -No active signs of infection at this time -F/U official CXR read -Will continue to monitor 3. Alcohol abuse/Alcohol withdrawal -States last drink was this afternoon -F/U alcohol level, UTOX -Ativan 2mg q4H -Banana bag -CIWA protocol -Fall precautions, seizure precautions 4. Transaminitis -Hx of liver cirhosis and Hep C (untreated) -Will continue to monitor -Avoid hepatotoxic agents 5. Tobacco abuse -Nicotine patch ordered -Tobacco cessation advised, -Patient aware that smoking is compromising her respiratory status GI/DVT ppx -Protonix 40mg daily -SCDs Plan d/w attending, Dr Garces <Ingrid Garces - Last Filed: 02/28/17 05:28> Results - Vital Signs Recent Vital Signs: Last Vital Signs Temp 98.4 F 02/28/17 01:37 Pulse 119 H 02/28/17 03:18 Resp 19 02/28/17 03:18 BP 126/78 02/28/17 03:18 Pulse Ox 98 02/28/17 03:18 - Labs Result Diagrams: 02/28/17 02:00 02/28/17 02:00 Attending/Attestation - Attestation I have personally seen and examined this patient.: Yes I have fully participated in the care of the patient.: Yes I have reviewed all pertinent clinical information: Yes Notes (Text): 02/28/17 05:27 Patient was seen when she was in bed # 7 in the ER. Agree with history , physical examination, assessment and plan. My impressions are as follows: Exacerbation of asthma. Sinus tachycardia. Alcohol withdrawal. Leukocytosis. Shakes. Hypoxia. Hypercarbia. Overweight. Elevated LFT's. Drug abuse. COPD. History hepatitis c. History umbilical hernia. smoker. Heroin abuse. Cocaine abuse history. History appendectomy. History tonsillectomy. History left eye muscle surgery. History left lung surgery. History right ankle fracture. Family history DM. Family history stroke. Family history HTN. History anxiety. History depression.
[2017-02-28 07:19] LABS: BASO # 0.01 K/mm3 (0.0-2.0); BASO % 0.1 % (0.0-3.0); EOS % 0.2 % (1.5-5.0); GRAN # 11.79 (1.4-6.5); GRAN % 93.6 % (50.0-68.0); HEMATOCRIT 40.1 % (36.0-48.0); LYMPH # 0.5 (1.2-3.4); LYMPH % 4.2 % (22.0-35.0); MEAN CELL VOLUME 99.3 fl (80.0-105.0); MEAN CORPUSCULAR HEMOGLOBIN 31.7 pg (25.0-35.0); MEAN CORPUSCULAR HGB CONC 31.9 g/dl (31.0-37.0); MEAN PLATELET VOLUME 10.2 fl (7.0-11.0); MONO # 0.2 (0.1-0.6); MONO % 1.9 % (1.0-6.0); PLATELET COUNT 304 10^3/uL (120.0-450.0); RED CELL DISTRIBUTION WIDTH 14.8 % (11.5-14.5); WHITE BLOOD COUNT 12.6 10^3/ul (4.5-11.0)
[2017-02-28 07:42] LABS: ALB/GLOB RATIO 1.3 (1.1-1.8); ALKALINE PHOSPHATASE 78 U/L (38-126); ALT/SGPT 70 U/L (7-56); AST/SGOT 54 U/L (14-36); BLOOD UREA NITROGEN 12 mg/dL (7-21); CALCIUM 8.4 mg/dL (8.4-10.5); CARBON DIOXIDE 31 mmol/L (21-33); CHLORIDE 98 mmol/L (98-107); GFR AFRICAN-AMERICAN > 60; GLUCOSE,RANDOM 220 mg/dL (70-110); MAGNESIUM 1.9 mg/dL (1.7-2.2); PHOSPHOROUS 5.2 mg/dL (2.5-4.5); POTASSIUM 3.9 mmol/L (3.6-5.0); SODIUM 136 mmol/L (132-148); TOTAL PROTEIN 6.4 g/dL (5.8-8.3)
[2017-02-28 08:31] LABS: ANISOCYTOSIS SLIGHT; NEUTROPHIL 93 % (50.0-70.0); PLATELET ESTIMATE NORMAL (NORMAL); TOXIC GRANULATION SLIGHT
--- NOTE | 2017-02-28 09:00 | RAD ---
HISTORY: sob COMPARISON: 02/17/2017 FINDINGS: LUNGS: No active pulmonary disease. PLEURA: No significant pleural effusion identified, no pneumothorax apparent. CARDIOVASCULAR: Normal. OSSEOUS STRUCTURES: No significant abnormalities. VISUALIZED UPPER ABDOMEN: Normal. OTHER FINDINGS: None. IMPRESSION: No active disease.
[2017-02-28] MEDS: MethylPREDNISolone 40 mg Vial IVP SCH ×2 (10:16→21:31)
[2017-02-28] MEDS: Levalbuterol 0.63 MG/3 ML Inhal Soln UD IH SCH ×4 (10:16→19:49)
[2017-02-28] MEDS: Folic Acid 1 MG, Thiamine 100 MG, Multivitamin (MVI) 10 ML in Dextrose 5% In Water 1,00... IV SCH ×2 (15:03→16:34)
--- NOTE | 2017-02-28 22:21 | CARD ---
APPROVED REPORT EKG Measurement Heart [id number] <Conclusion> Sinus tachycardia Otherwise normal ECG
[2017-03-01] MEDS: Levalbuterol 0.63 MG/3 ML Inhal Soln UD IH SCH ×6 (01:18→23:56)
[2017-03-01] MEDS: Folic Acid 1 MG, Thiamine 100 MG, Multivitamin (MVI) 10 ML in Dextrose 5% In Water 1,00... IV SCH ×2 (02:18→12:38)
[2017-03-01 06:22] LABS: BASO # 0.01 K/mm3 (0.0-2.0); BASO % 0.1 % (0.0-3.0); GRAN # 17.33 (1.4-6.5); GRAN % 90.8 % (50.0-68.0); HEMATOCRIT 38.6 % (36.0-48.0); LYMPH # 0.9 (1.2-3.4); LYMPH % 4.9 % (22.0-35.0); MEAN CELL VOLUME 99.7 fl (80.0-105.0); MEAN CORPUSCULAR HEMOGLOBIN 32.3 pg (25.0-35.0); MEAN CORPUSCULAR HGB CONC 32.4 g/dl (31.0-37.0); MEAN PLATELET VOLUME 10.3 fl (7.0-11.0); MONO # 0.8 (0.1-0.6); MONO % 4.2 % (1.0-6.0); RED CELL DISTRIBUTION WIDTH 14.5 % (11.5-14.5); WHITE BLOOD COUNT 19.1 10^3/ul (4.5-11.0)
[2017-03-01 06:46] LABS: ALB/GLOB RATIO 1.1 (1.1-1.8); ALKALINE PHOSPHATASE 67 U/L (38-126); ALT/SGPT 56 U/L (7-56); AST/SGOT 28 U/L (14-36); BILIRUBIN,TOTAL 0.6 mg/dL (0.2-1.3); BLOOD UREA NITROGEN 12 mg/dL (7-21); CALCIUM 8.7 mg/dL (8.4-10.5); CARBON DIOXIDE 36 mmol/L (21-33); CHLORIDE 100 mmol/L (98-107); GFR AFRICAN-AMERICAN > 60; GLUCOSE,RANDOM 169 mg/dL (70-110); MAGNESIUM 2.2 mg/dL (1.7-2.2); PHOSPHOROUS 3.4 mg/dL (2.5-4.5); POTASSIUM 4.3 mmol/L (3.6-5.0); SODIUM 139 mmol/L (132-148)
[2017-03-01] MEDS: MethylPREDNISolone 40 mg Vial IVP SCH ×2 (09:17→22:02)
--- NOTE | 2017-03-01 11:44 | CP.PCM.PN ---
<Imer Ware - Last Filed: 03/01/17 11:56> Subjective - Date & Time of Evaluation Date of Evaluation: 03/01/17 Time of Evaluation: 09:40 - Subjective Subjective: patient was seen and examined bedside. she is still complaining of wheezing and shortness of breath. when asked about use of her inhaler, she states that she used it properly when d/c but the cold weather set her off. she states that she also used heroin 2 days ago. she is complaining of some mild tremors but denies any seizure-like activity or hallucinations. she states that she needs a program to help her quit her substance use when discharged from the hospital. Objective - Vital Signs/Intake and Output Vital Signs (last 24 hours): Temp Pulse Resp BP Pulse Ox 97.6 F 95 H 20 117/81 98 03/01/17 08:08 03/01/17 08:08 03/01/17 08:08 03/01/17 08:08 03/01/17 08:08 Intake and Output: 03/01/17 03/01/17 06:59 18:59 Intake Total 2440 100 Balance 2440 100 - Medications Medications: Current Medications Chlordiazepoxide (Librium) 10 mg PO Q8 PRN; Protocol PRN Reason: Symptoms of alcohol withdrawl Citalopram Hydrobromide (Celexa) 10 mg PO DAILY [facility] Last Admin: 03/01/17 09:18 Dose: 10 mg Folic Acid 1 mg/ Thiamine HCl 100 mg/ Multivitamins/Vitamin C 10 ml/ Dextrose 1 ,011.2 mls @ 100 mls/hr IV .Q10H7M [facility] Last Admin: 03/01/17 02:18 Dose: 100 mls/hr Levalbuterol HCl (Xopenex) 0.63 mg IH Q4H JACK Last Admin: 03/01/17 11:10 Dose: 0.63 mg Levalbuterol HCl (Xopenex) 0.63 mg IH Q2H PRN PRN Reason: Shortness of Breath Lorazepam (Ativan) 2 mg IVP Q6H PRN; Protocol PRN Reason: Symptoms of alcohol withdrawl Lorazepam (Ativan) 2 mg IVP Q4H JACK PRN Reason: Protocol Last Admin: 03/01/17 08:45 Dose: 2 mg Methylprednisolone (Solu-Medrol) 40 mg IVP Q12H [facility] Last Admin: 03/01/17 09:17 Dose: 40 mg Nicotine (Nicoderm Cq) 1 patch TD DAILY [facility] Last Admin: 03/01/17 09:19 Dose: 1 patch Pantoprazole Sodium (Protonix Inj) 40 mg IVP DAILY [facility] Last Admin: 03/01/17 09:17 Dose: 40 mg Trazodone HCl (Desyrel) 50 mg PO HS PRN PRN Reason: Insomnia Last Admin: 02/28/17 21:59 Dose: 50 mg - Labs Labs: 03/01/17 06:00 03/01/17 06:00 - Constitutional Appears: Well, Non-toxic, No Acute Distress, Unkempt - Head Exam Head Exam: ATRAUMATIC, NORMAL INSPECTION, NORMOCEPHALIC - Eye Exam Eye Exam: EOMI, Normal appearance, PERRL Pupil Exam: NORMAL ACCOMODATION - ENT Exam ENT Exam: Mucous Membranes Moist, Normal Exam - Neck Exam Neck Exam: Full ROM, Normal Inspection - Respiratory Exam Respiratory Exam: Wheezes (mild diffuse ), NORMAL BREATHING PATTERN. absent: Rales, Rhonchi, Respiratory Distress, Stridor - Cardiovascular Exam Cardiovascular Exam: RRR, +S1, +S2. absent: Gallop, JVD, Rubs, Murmur - GI/Abdominal Exam GI & Abdominal Exam: Soft, Normal Bowel Sounds. absent: Distended, Tenderness - Extremities Exam Extremities Exam: Full ROM. absent: Pedal Edema - Back Exam Back Exam: NORMAL INSPECTION. absent: CVA tenderness (L), CVA tenderness (R) - Neurological Exam Neurological Exam: Alert, Awake, Oriented x3 - Psychiatric Exam Psychiatric exam: Normal Affect, Normal Mood - Skin Skin Exam: Normal Color, Warm Assessment and Plan - Assessment and Plan (Free Text) Assessment: 46 year old female with past medical history of COPD, asthma, arthritis, alcohol /heroin abuse, homelessness, Hep C, liver cirrhosis presents to the ED for worsening shortness of breath s/p BiPAP in ED. Plan: 1. Acute COPD exacerbation - pt is afebrile - on tele unit for monitoring - Solu-medrol 40mg Q12 IVP - Xopenex q4H JACK, Xopenex q2H prn SOB 2. Leukocytosis - Likely secondary to steroid use - No active signs of infection at this time - will hold off on adding antibiotics as pt is afebrile and to reduce risk of antibiotic resistance - Will continue to monitor 3. Alcohol abuse/Alcohol withdrawal, pt is tachy - Librium 10q8h added due to improving LFTs - Ativan 2mg q4H JACK and 2mg q6H PRN - Banana bag - CIWA protocol - Fall precautions, seizure precautions - referral for ETOH programs and d/c planning 4. Transaminitis - Hx of liver cirhosis and Hep C (known and untreated) - Will continue to monitor - Avoid hepatotoxic agents 5. Tobacco abuse - Nicotine patch ordered - Tobacco cessation advised - Patient aware that smoking is compromising her respiratory status 6. Psych hx - Cont Celexa JACK and Trazodone PRN -Protonix 40mg daily -SCDs <Junaid Rouse - Last Filed: 03/01/17 13:47> Objective - Vital Signs/Intake and Output Vital Signs (last 24 hours): Temp Pulse Resp BP Pulse Ox 97.6 F 95 H 20 117/81 98 03/01/17 08:08 03/01/17 08:08 03/01/17 08:08 03/01/17 08:08 03/01/17 08:08 Intake and Output: 03/01/17 03/01/17 06:59 18:59 Intake Total 2440 100 Balance 2440 100 - Medications Medications: Current Medications Chlordiazepoxide (Librium) 10 mg PO Q8 PRN; Protocol PRN Reason: Symptoms of alcohol withdrawl Citalopram Hydrobromide (Celexa) 10 mg PO DAILY [facility] Last Admin: 03/01/17 09:18 Dose: 10 mg Folic Acid 1 mg/ Thiamine HCl 100 mg/ Multivitamins/Vitamin C 10 ml/ Dextrose 1 ,011.2 mls @ 100 mls/hr IV .Q10H7M [facility] Last Admin: 03/01/17 12:38 Dose: 100 mls/hr Levalbuterol HCl (Xopenex) 0.63 mg IH Q4H [facility] Last Admin: 03/01/17 11:10 Dose: 0.63 mg Levalbuterol HCl (Xopenex) 0.63 mg IH Q2H PRN PRN Reason: Shortness of Breath Lorazepam (Ativan) 2 mg IVP Q6H PRN; Protocol PRN Reason: Symptoms of alcohol withdrawl Lorazepam (Ativan) 2 mg IVP Q4H JACK PRN Reason: Protocol Last Admin: 03/01/17 12:28 Dose: 2 mg Methylprednisolone (Solu-Medrol) 40 mg IVP Q12H [facility] Last Admin: 03/01/17 09:17 Dose: 40 mg Nicotine (Nicoderm Cq) 1 patch TD DAILY [facility] Last Admin: 03/01/17 09:19 Dose: 1 patch Pantoprazole Sodium (Protonix Inj) 40 mg IVP DAILY [facility] Last Admin: 03/01/17 09:17 Dose: 40 mg Trazodone HCl (Desyrel) 50 mg PO HS PRN PRN Reason: Insomnia Last Admin: 02/28/17 21:59 Dose: 50 mg - Labs Labs: 03/01/17 06:00 03/01/17 06:00 Attending/Attestation - Attestation I have personally seen and examined this patient.: Yes I have fully participated in the care of the patient.: Yes I have reviewed all pertinent clinical information, including history, physical exam and plan: Yes Notes (Text): 03/01/17 13:43 Attending note; Patient seen and examined with resident. Patient is a 46 year old female with a past medical history of COPD, etoh abuse , Hepatitis C, heroin abuse, active smoking , homelessness who is being admitted for COPD exacerbation. continue oxygen, DuoNeb and IV Solu-Medrol. Active smoking; smoking cessation is strongly advised. On NicoDerm patch. Alcohol abuse; alcohol cessation is strongly advised. Continue multivitamin, thiamine, folic acid. drug abuse; complete cessation is strongly advised. social worker masters evaluation requested. Prognosis is very poor secondary to continuous drug abuse,alcohol abuse and noncompliance with follow-up.
[2017-03-01] MEDS: Enoxaparin 40 mg Syringe SC SCH (15:27)
[2017-03-02] MEDS: Levalbuterol 0.63 MG/3 ML Inhal Soln UD IH SCH ×3 (04:17→11:48)
[2017-03-02 06:35] LABS: GRAN # 15.46 (1.4-6.5); GRAN % 91.4 % (50.0-68.0); HEMATOCRIT 37.2 % (36.0-48.0); LYMPH # 0.9 (1.2-3.4); LYMPH % 5.6 % (22.0-35.0); MEAN CELL VOLUME 99.5 fl (80.0-105.0); MEAN CORPUSCULAR HEMOGLOBIN 32.4 pg (25.0-35.0); MEAN CORPUSCULAR HGB CONC 32.5 g/dl (31.0-37.0); MEAN PLATELET VOLUME 10.2 fl (7.0-11.0); MONO # 0.5 (0.1-0.6); RED CELL DISTRIBUTION WIDTH 14.7 % (11.5-14.5); WHITE BLOOD COUNT 16.9 10^3/ul (4.5-11.0)
[2017-03-02 07:49] LABS: ALB/GLOB RATIO 1.1 (1.1-1.8); ALKALINE PHOSPHATASE 60 U/L (38-126); ALT/SGPT 67 U/L (7-56); AST/SGOT 38 U/L (14-36); BILIRUBIN,TOTAL 0.5 mg/dL (0.2-1.3); BLOOD UREA NITROGEN 18 mg/dL (7-21); CALCIUM 8.8 mg/dL (8.4-10.5); CARBON DIOXIDE 34 mmol/L (21-33); CHLORIDE 101 mmol/L (98-107); GFR AFRICAN-AMERICAN > 60; GLUCOSE,RANDOM 144 mg/dL (70-110); PHOSPHOROUS 4.2 mg/dL (2.5-4.5); POTASSIUM 4.3 mmol/L (3.6-5.0); SODIUM 137 mmol/L (132-148); TOTAL PROTEIN 5.9 g/dL (5.8-8.3)
[2017-03-02] MEDS: Enoxaparin 40 mg Syringe SC SCH (10:44)
[2017-03-02] MEDS: MethylPREDNISolone 40 mg Vial IVP SCH (10:45)
[2017-03-02] MEDS: Multivitamin With Minerals Tab PO SCH (10:45)
--- NOTE | 2017-03-02 15:24 | CP.PCM.PN ---
<Imer Ware - Last Filed: 03/02/17 15:31> Subjective - Date & Time of Evaluation Date of Evaluation: 03/02/17 Time of Evaluation: 10:21 - Subjective Subjective: patient was seen and examined at bedside. She states that she is still wheezing/ short of breath and feeling jittery. she states that she not slept well. otherwise, pt denies chest pain, headaches, cough, n/v/d, fevers/chills, constipation. Objective - Vital Signs/Intake and Output Vital Signs (last 24 hours): Temp Pulse Resp BP Pulse Ox 99.2 F 76 18 130/98 H 98 03/02/17 12:00 03/02/17 12:00 03/02/17 12:00 03/02/17 12:00 03/02/17 12:00 Intake and Output: 03/02/17 03/02/17 06:59 18:59 Intake Total 900 Balance 900 - Medications Medications: Current Medications Chlordiazepoxide (Librium) 10 mg PO Q12 PRN; Protocol PRN Reason: Symptoms of alcohol withdrawl Last Admin: 03/02/17 10:44 Dose: 10 mg Citalopram Hydrobromide (Celexa) 10 mg PO DAILY [facility] Last Admin: 03/02/17 10:44 Dose: 10 mg Enoxaparin Sodium (Lovenox) 40 mg SC DAILY [facility] PRN Reason: Protocol Last Admin: 03/02/17 10:44 Dose: 40 mg Folic Acid (Folic Acid) 1 mg PO DAILY [facility] Last Admin: 03/02/17 10:44 Dose: 1 mg Levalbuterol HCl (Xopenex) 0.63 mg IH Q4H PRN PRN Reason: Shortness of Breath Lorazepam (Ativan) 2 mg IVP Q6H PRN; Protocol PRN Reason: Symptoms of alcohol withdrawl Methylprednisolone (Solu-Medrol) 40 mg IVP DAILY [facility] Last Admin: 03/02/17 10:45 Dose: 40 mg Multivitamins/Minerals (Therapeutic-M Tab) 1 tab PO 0800 [facility] Last Admin: 03/02/17 10:45 Dose: 1 tab Nicotine (Nicoderm Cq) 1 patch TD DAILY [facility] Last Admin: 03/02/17 10:44 Dose: 1 patch Pantoprazole Sodium (Protonix Inj) 40 mg IVP DAILY [facility] Last Admin: 03/02/17 10:44 Dose: 40 mg Thiamine HCl (Vitamin B1 Tab) 100 mg PO DAILY [facility] Last Admin: 03/02/17 10:44 Dose: 100 mg Trazodone HCl (Desyrel) 50 mg PO HS PRN PRN Reason: Insomnia Last Admin: 03/01/17 22:02 Dose: 50 mg - Labs Labs: 03/02/17 05:30 03/02/17 05:30 - Additional Findings Additional findings: - Constitutional Appears: Well, Non-toxic, No Acute Distress, Unkempt - Head Exam Head Exam: ATRAUMATIC, NORMAL INSPECTION, NORMOCEPHALIC - Eye Exam Eye Exam: EOMI, Normal appearance, PERRL Pupil Exam: NORMAL ACCOMODATION - ENT Exam ENT Exam: Mucous Membranes Moist, Normal Exam - Neck Exam Neck Exam: Full ROM, Normal Inspection - Respiratory Exam Respiratory Exam: NORMAL BREATHING PATTERN. absent: Wheezes, Rales, Rhonchi, Respiratory Distress, Stridor - Cardiovascular Exam Cardiovascular Exam: RRR, +S1, +S2. absent: Gallop, JVD, Rubs, Murmur - GI/Abdominal Exam GI & Abdominal Exam: Soft, Normal Bowel Sounds. absent: Distended, Tenderness - Extremities Exam Extremities Exam: Full ROM. absent: Pedal Edema - Back Exam Back Exam: NORMAL INSPECTION. absent: CVA tenderness (L), CVA tenderness (R) - Neurological Exam Neurological Exam: Alert, Awake, Oriented x3 - Psychiatric Exam Psychiatric exam: Normal Affect, Normal Mood - Skin Skin Exam: Normal Color, Warm Assessment and Plan - Assessment and Plan (Free Text) Assessment: 46 year old female with past medical history of COPD, asthma, arthritis, alcohol /heroin abuse, homelessness, Hep C, liver cirrhosis presents to the ED for worsening shortness of breath s/p BiPAP in ED. Plan: 1. Acute COPD exacerbation - pt is afebrile, not tachycardic, and is not agitated - downgraded from remote tele to med-surg - Solu-medrol 40mg daily - Xopenex q4H PRN SOB 2. Leukocytosis, improving - Likely secondary to chronic steroid use - No active signs of infection at this time - will hold off on adding antibiotics as pt is afebrile and to reduce risk of antibiotic resistance - Will continue to monitor 3. Alcohol abuse/Alcohol withdrawal, pt is tachy - Librium 10q12h PRN - Ativan 2mg q6H PRN - Folic acid, MV, and thiamine - CIWA protocol - Fall precautions, seizure precautions - SW referral for ETOH programs and d/c planning - pt educated about calling programs for ETOH cessation help after discharge 4. Transaminitis - Hx of liver cirhosis and Hep C (known and untreated) - Will continue to monitor - Avoid hepatotoxic agents 5. Tobacco abuse - Nicotine patch ordered - Tobacco cessation advised - Patient aware that smoking is compromising her respiratory status 6. Opiate/marijuana abuse - +UDS - patient educated on importance and health benefits of substance cessation and risks of continued substance abuse 7. Psych hx - Cont Celexa JACK and Trazodone PRN -Protonix 40mg daily -Lovenox/SCDs Patient was seen, examined and discussed with attending, Dr. Padma Ware PGY1 <Junaid Rouse - Last Filed: 03/02/17 17:04> Objective - Vital Signs/Intake and Output Vital Signs (last 24 hours): Temp Pulse Resp BP Pulse Ox 99.2 F 76 18 130/98 H 98 03/02/17 12:00 03/02/17 12:00 03/02/17 12:00 03/02/17 12:00 03/02/17 12:00 Intake and Output: 03/02/17 03/02/17 06:59 18:59 Intake Total 900 Balance 900 - Medications Medications: Current Medications Chlordiazepoxide (Librium) 10 mg PO Q12 PRN; Protocol PRN Reason: Symptoms of alcohol withdrawl Last Admin: 03/02/17 10:44 Dose: 10 mg Citalopram Hydrobromide (Celexa) 10 mg PO DAILY [facility] Last Admin: 03/02/17 10:44 Dose: 10 mg Enoxaparin Sodium (Lovenox) 40 mg SC DAILY [facility] PRN Reason: Protocol Last Admin: 03/02/17 10:44 Dose: 40 mg Folic Acid (Folic Acid) 1 mg PO DAILY [facility] Last Admin: 03/02/17 10:44 Dose: 1 mg Levalbuterol HCl (Xopenex) 0.63 mg IH Q4H PRN PRN Reason: Shortness of Breath Last Admin: 03/02/17 16:07 Dose: 0.63 mg Lorazepam (Ativan) 2 mg IVP Q6H PRN; Protocol PRN Reason: Symptoms of alcohol withdrawl Last Admin: 03/02/17 15:47 Dose: 2 mg Methylprednisolone (Solu-Medrol) 40 mg IVP DAILY [facility] Last Admin: 03/02/17 10:45 Dose: 40 mg Multivitamins/Minerals (Therapeutic-M Tab) 1 tab PO 0800 [facility] Last Admin: 03/02/17 10:45 Dose: 1 tab Nicotine (Nicoderm Cq) 1 patch TD DAILY [facility] Last Admin: 03/02/17 10:44 Dose: 1 patch Pantoprazole Sodium (Protonix Inj) 40 mg IVP DAILY [facility] Last Admin: 03/02/17 10:44 Dose: 40 mg Thiamine HCl (Vitamin B1 Tab) 100 mg PO DAILY [facility] Last Admin: 03/02/17 10:44 Dose: 100 mg Trazodone HCl (Desyrel) 50 mg PO HS PRN PRN Reason: Insomnia Last Admin: 03/01/17 22:02 Dose: 50 mg - Labs Labs: 03/02/17 05:30 03/02/17 05:30 Attending/Attestation - Attestation I have personally seen and examined this patient.: Yes I have fully participated in the care of the patient.: Yes I have reviewed all pertinent clinical information, including history, physical exam and plan: Yes Notes (Text): 03/02/17 17:03 Attending note; Patient seen and examined with resident. Patient is a 46 year old female with a past medical history of COPD, etoh abuse , Hepatitis C, heroin abuse, active smoking , homelessness who is being admitted for COPD exacerbation. continue oxygen, DuoNeb and IV Solu-Medrol. Taper IV Solu-Medrol. Slowly improving respiratory status. Active smoking; smoking cessation is strongly advised. On NicoDerm patch. Alcohol abuse; alcohol cessation is strongly advised. Continue multivitamin, thiamine, folic acid. On tapering dose of Librium and Ativan. drug abuse; complete cessation is strongly advised. licensed social worker evaluation appreciated. Prognosis is very poor secondary to continuous drug abuse,alcohol abuse and noncompliance with follow-up. 03/02/17 17:04
[2017-03-02] MEDS: Levalbuterol 0.63 MG/3 ML Inhal Soln UD IH PRN (16:07)
[2017-03-02 20:08] VITALS: RESP 20
--- NOTE | 2017-03-02 23:24 | CP.PCM.PN ---
Subjective - Date & Time of Evaluation Date of Evaluation: 03/02/17 Time of Evaluation: 23:21 - Subjective Subjective: S:It was requested to insert a heparin lock. Patient has no complaints at this time. Pertinent medical record was reviewed. O: Last Vital Signs 3 Temp 98 F 03/02/17 16:00 Pulse 94 H 03/02/17 16:00 Resp 20 03/02/17 16:00 BP 131/89 03/02/17 16:00 Pulse Ox 99 03/02/17 16:00 Awake, alert , not in distress. LUNGS: Normal breathing pattern. A:Poor venous access. Encounter for intravenous line placement. P:# 24 angiocth was inserted in left arm. Objective - Vital Signs/Intake and Output Vital Signs (last 24 hours): Temp Pulse Resp BP Pulse Ox 98 F 94 H 20 131/89 99 03/02/17 16:00 03/02/17 16:00 03/02/17 16:00 03/02/17 16:00 03/02/17 16:00 - Medications Medications: Current Medications Chlordiazepoxide (Librium) 10 mg PO Q12 PRN; Protocol PRN Reason: Symptoms of alcohol withdrawl Last Admin: 03/02/17 22:49 Dose: 10 mg Citalopram Hydrobromide (Celexa) 10 mg PO DAILY [facility] Last Admin: 03/02/17 10:44 Dose: 10 mg Enoxaparin Sodium (Lovenox) 40 mg SC DAILY [facility] PRN Reason: Protocol Last Admin: 03/02/17 10:44 Dose: 40 mg Folic Acid (Folic Acid) 1 mg PO DAILY [facility] Last Admin: 03/02/17 10:44 Dose: 1 mg Levalbuterol HCl (Xopenex) 0.63 mg IH Q4H PRN PRN Reason: Shortness of Breath Last Admin: 03/02/17 16:07 Dose: 0.63 mg Lorazepam (Ativan) 2 mg IVP Q6H PRN; Protocol PRN Reason: Symptoms of alcohol withdrawl Last Admin: 03/02/17 22:49 Dose: 2 mg Methylprednisolone (Solu-Medrol) 40 mg IVP DAILY [facility] Last Admin: 03/02/17 10:45 Dose: 40 mg Multivitamins/Minerals (Therapeutic-M Tab) 1 tab PO 0800 [facility] Last Admin: 03/02/17 10:45 Dose: 1 tab Nicotine (Nicoderm Cq) 1 patch TD DAILY [facility] Last Admin: 03/02/17 10:44 Dose: 1 patch Pantoprazole Sodium (Protonix Inj) 40 mg IVP DAILY [facility] Last Admin: 03/02/17 10:44 Dose: 40 mg Thiamine HCl (Vitamin B1 Tab) 100 mg PO DAILY [facility] Last Admin: 03/02/17 10:44 Dose: 100 mg Trazodone HCl (Desyrel) 50 mg PO HS PRN PRN Reason: Insomnia Last Admin: 03/02/17 22:49 Dose: 50 mg - Labs Labs: 03/02/17 05:30 03/02/17 05:30
[2017-03-03] MEDS: Levalbuterol 0.63 MG/3 ML Inhal Soln UD IH PRN (01:01)
[2017-03-03] MEDS ORDERED: Pantoprazole 40 mg EC Tab PO SCH (06:00)
[2017-03-03 06:13] LABS: BASO # 0.01 K/mm3 (0.0-2.0); BASO % 0.1 % (0.0-3.0); EOS % 0.2 % (1.5-5.0); GRAN # 9.44 (1.4-6.5); GRAN % 73.6 % (50.0-68.0); HEMATOCRIT 37.2 % (36.0-48.0); LYMPH # 2.3 (1.2-3.4); MEAN CELL VOLUME 99.2 fl (80.0-105.0); MEAN CORPUSCULAR HGB CONC 32.3 g/dl (31.0-37.0); MEAN PLATELET VOLUME 9.9 fl (7.0-11.0); MONO % 8.1 % (1.0-6.0); RED CELL DISTRIBUTION WIDTH 14.5 % (11.5-14.5); WHITE BLOOD COUNT 12.8 10^3/ul (4.5-11.0)
[2017-03-03 06:46] LABS: ALB/GLOB RATIO 1.1 (1.1-1.8); ALKALINE PHOSPHATASE 54 U/L (38-126); ALT/SGPT 68 U/L (7-56); AST/SGOT 32 U/L (14-36); BILIRUBIN,TOTAL 0.4 mg/dL (0.2-1.3); BLOOD UREA NITROGEN 21 mg/dL (7-21); CALCIUM 8.7 mg/dL (8.4-10.5); CARBON DIOXIDE 34 mmol/L (21-33); CHLORIDE 101 mmol/L (98-107); GFR AFRICAN-AMERICAN > 60; GLUCOSE,RANDOM 94 mg/dL (70-110); POTASSIUM 3.6 mmol/L (3.6-5.0); SODIUM 138 mmol/L (132-148); TOTAL PROTEIN 5.6 g/dL (5.8-8.3)
[2017-03-03] MEDS: Multivitamin With Minerals Tab PO SCH (09:25)
[2017-03-03] MEDS: Enoxaparin 40 mg Syringe SC SCH (09:26)
[2017-03-03] MEDS: MethylPREDNISolone 40 mg Vial IVP SCH (09:26)
[2017-03-03 10:13] VITALS: BP 133/77; PULSE 87; TEMP 97.7; O2SAT 97
--- NOTE | 2017-03-03 14:28 | CP.PCM.DIS ---
<Imer Ware - Last Filed: 03/03/17 17:31> Provider - Provider Date of Admission: 02/28/17 03:52 Attending physician: Junaid Rouse MD Time Spent in preparation of Discharge (in minutes): 40 Hospital Course - Lab Results Lab Results: Most Recent Lab Values WBC 12.8 10^3/ul (4.5-11.0) H D 03/03/17 05:30 RBC 3.75 10^6/uL (3.5-6.1) 03/03/17 05:30 Hgb 12.0 g/dL (12.0-16.0) 03/03/17 05:30 Hct 37.2 % (36.0-48.0) 03/03/17 05:30 MCV 99.2 fl (80.0-105.0) 03/03/17 05:30 MCH 32.0 pg (25.0-35.0) 03/03/17 05:30 MCHC 32.3 g/dl (31.0-37.0) 03/03/17 05:30 RDW 14.5 % (11.5-14.5) 03/03/17 05:30 Plt Count 274 10^3/uL (120.0-450.0) 03/03/17 05:30 MPV 9.9 fl (7.0-11.0) 03/03/17 05:30 Gran % 73.6 % (50.0-68.0) H 03/03/17 05:30 Lymph % (Auto) 18.0 % (22.0-35.0) L 03/03/17 05:30 Gosper % (Auto) 8.1 % (1.0-6.0) H 03/03/17 05:30 Eos % (Auto) 0.2 % (1.5-5.0) L 03/03/17 05:30 Baso % (Auto) 0.1 % (0.0-3.0) 03/03/17 05:30 Gran # 9.44 (1.4-6.5) H 03/03/17 05:30 Lymph # 2.3 (1.2-3.4) 03/03/17 05:30 Gosper # 1.0 (0.1-0.6) H 03/03/17 05:30 Eos # 0.0 (0.0-0.7) 03/03/17 05:30 Baso # 0.01 K/mm3 (0.0-2.0) 03/03/17 05:30 Neutrophils % (Manual) 93 % (50.0-70.0) H 02/28/17 06:50 Lymphocytes % (Manual) 5 % (22.0-35.0) L 02/28/17 06:50 Monocytes % (Manual) 2 % (1.0-6.0) 02/28/17 06:50 Toxic Granulation Slight 02/28/17 06:50 Platelet Evaluation Normal (NORMAL) 02/28/17 06:50 Anisocytosis (manual) Slight 02/28/17 06:50 pCO2 51 mm/Hg (35-45) H 02/28/17 02:19 pO2 70.0 mm/Hg (80-100) L 02/28/17 02:19 HCO3 33.1 mmol/L (21-28) H 02/28/17 02:19 ABG pH 7.42 (7.35-7.45) 02/28/17 02:19 ABG Total CO2 34.7 mmol.L (22-28) H 02/28/17 02:19 ABG O2 Saturation 97.1 % (95-98) 02/28/17 02:19 ABG O2 Content 17.2 ML/dl (15-23) 02/28/17 02:19 ABG Base Excess 7.2 mmol/L (-2.0-3.0) H 02/28/17 02:19 ABG Hemoglobin 13.4 g/dL (11.7-17.4) 02/28/17 02:19 ABG Carboxyhemoglobin 5.9 % (0.5-1.5) H 02/28/17 02:19 POC ABG HHb (Measured) 2.7 % (0-5) 02/28/17 02:19 ABG Methemoglobin 0.4 % (0.0-3.0) 02/28/17 02:19 ABG O2 Capacity 17.7 mL/dl (16-24) 02/28/17 02:19 Hgb O2 Saturation 90.9 % (95.0-98.0) L 02/28/17 02:19 FiO2 28.0 % 02/28/17 02:19 Sodium 138 mmol/L (132-148) 03/03/17 05:30 Potassium 3.6 mmol/L (3.6-5.0) 03/03/17 05:30 Chloride 101 mmol/L (98-107) 03/03/17 05:30 Carbon Dioxide 34 mmol/L (21-33) H 03/03/17 05:30 Anion Gap 6 (10-20) L 03/03/17 05:30 BUN 21 mg/dL (7-21) 03/03/17 05:30 Creatinine 0.7 mg/dl (0.7-1.2) 03/03/17 05:30 Est GFR ( Amer) > 60 03/03/17 05:30 Est GFR (Non-Af Amer) > 60 03/03/17 05:30 Random Glucose 94 mg/dL (70-110) 03/03/17 05:30 Calcium 8.7 mg/dL (8.4-10.5) 03/03/17 05:30 Phosphorus 4.2 mg/dL (2.5-4.5) 03/02/17 05:30 Magnesium 2.0 mg/dL (1.7-2.2) 03/02/17 05:30 Total Bilirubin 0.4 mg/dL (0.2-1.3) 03/03/17 05:30 AST 32 U/L (14-36) 03/03/17 05:30 ALT 68 U/L (7-56) H 03/03/17 05:30 Alkaline Phosphatase 54 U/L (38-126) 03/03/17 05:30 Lactate Dehydrogenase 607 U/L (333-699) 02/28/17 02:00 Total Creatine Kinase 61 U/L (35-230) 02/28/17 02:00 Troponin I < 0.01 ng/mL D 02/28/17 02:00 Total Protein 5.6 g/dL (5.8-8.3) L 03/03/17 05:30 Albumin 3.0 g/dL (3.0-4.8) 03/03/17 05:30 Globulin 2.6 gm/dL 03/03/17 05:30 Albumin/Globulin Ratio 1.1 (1.1-1.8) 03/03/17 05:30 Urine HCG, Qual Negative (NEGATIVE) 03/01/17 13:43 Urine Opiates Screen Positive (NEGATIVE) H 03/01/17 13:43 Urine Methadone Screen Negative (NEGATIVE) 03/01/17 13:43 Ur Barbiturates Screen Negative (NEGATIVE) 03/01/17 13:43 Ur Phencyclidine Scrn Negative (NEGATIVE) 03/01/17 13:43 Ur Amphetamines Screen Negative (NEGATIVE) 03/01/17 13:43 U Benzodiazepines Scrn No result (NEGATIVE) 03/01/17 13:43 U Oth Cocaine Metabols Negative (NEGATIVE) 03/01/17 13:43 U Cannabinoids Screen Positive (NEGATIVE) H 03/01/17 13:43 Alcohol, Quantitative < 10 mg/dL (0-10) 02/28/17 06:50 - Hospital Course Hospital Course: Ms. Chambers is a 46 year old female with past medical history of COPD, asthma , alcohol/heroin abuse, homelessness, Hep C, liver cirrhosis presents to the ED for worsening shortness of breath. Patient states that she has been using her rescue inhaler all day with no improvement in symptoms. Reports that wheezing has been getting worse due to the cold weather. Admits to having chest tightness and non-productive cough. Patient has a history of alcohol abuse, last drink was the afternoon of admission. In ED, pt was put on BiPAP due to some difficulty breathing and was given ativan for some ETOH withdrawal. pt was given xopenex and solumedrol. ABG shows hypoxia pO2 70. UDS +opiates and cannabinoids. Patient was transferred to remote telemetry for monitoring. Leukocytosis and transaminitis is chronically elevated. Pt was treated for COPD exacerbation and ETOH withdrawal. Pt was stabilized. PT evaluated patient walking off O2 and patient did well. Cleared for discharge with solu-medrol. pt is not currently wheezing, short of breath or going through withdrawals. educated about cessation of tobacco, etoh and substance abuse. pt was provided with numbers to call help centers for etoh and substance abuse cessation and she was educated about calling and setting up appointments. pt states that she has all her meds and does not require any refills. - Date & Time of H&P Date of H&P: 03/03/17 Time of H&P: 15:47 Discharge Exam - Head Exam Head Exam: ATRAUMATIC, NORMAL INSPECTION, NORMOCEPHALIC - Eye Exam Eye Exam: EOMI, Normal appearance, PERRL Pupil Exam: NORMAL ACCOMODATION - ENT Exam ENT Exam: Mucous Membranes Moist, Normal Exam - Neck Exam Neck exam: Normal Inspection - Respiratory Exam Respiratory Exam: Clear to PA & Lateral, UNREMARKABLE. absent: Rales, Rhonchi, Wheezes, Respiratory Distress, NORMAL BREATHING PATTERN - Cardiovascular Exam Cardiovascular Exam: RRR, +S1, +S2. absent: Gallop, JVD, Rubs - GI/Abdominal Exam GI & Abdominal Exam: Normal Bowel Sounds, Soft, Unremarkable. absent: Distended , Tenderness - Extremities Exam Extremities exam: full ROM - Back Exam Back exam: NORMAL INSPECTION - Neurological Exam Neurological exam: Alert, Oriented x3 - Psychiatric Exam Psychiatric exam: Normal Affect, Normal Mood - Skin Skin Exam: Normal Color, Warm Discharge Plan - Discharge Medications Prescriptions: Methylprednisolone [Medrol Dose Pack (21 tabs)] 4 mg PO DAILY #21 mg - Follow Up Plan Condition: FAIR Disposition: HOME/ ROUTINE Instructions: Asthma (DC), How to Stop Smoking (DC), Cigarette Smoking and Your Health (GEN), Narcotic Abuse (DC), Alcohol Intoxication (DC), Abuse of Alcohol (DC), Alcohol Use Disorder (DC) Additional Instructions: - please take your medrol dose pack as prescribed - please refrain from tobacco, alcohol and heroin use - please call the number for the alcohol abuse centers that was provided for you during your stay to receive further treatment Referrals: [facility] at [facility] [place] [Outside] <Junaid Rouse - Last Filed: 03/04/17 16:49> Provider - Provider Date of Admission: 02/28/17 03:52 Attending physician: Junaid Rouse MD Hospital Course - Lab Results Lab Results: Most Recent Lab Values WBC 12.8 10^3/ul (4.5-11.0) H D 03/03/17 05:30 RBC 3.75 10^6/uL (3.5-6.1) 03/03/17 05:30 Hgb 12.0 g/dL (12.0-16.0) 03/03/17 05:30 Hct 37.2 % (36.0-48.0) 03/03/17 05:30 MCV 99.2 fl (80.0-105.0) 03/03/17 05:30 MCH 32.0 pg (25.0-35.0) 03/03/17 05:30 MCHC 32.3 g/dl (31.0-37.0) 03/03/17 05:30 RDW 14.5 % (11.5-14.5) 03/03/17 05:30 Plt Count 274 10^3/uL (120.0-450.0) 03/03/17 05:30 MPV 9.9 fl (7.0-11.0) 03/03/17 05:30 Gran % 73.6 % (50.0-68.0) H 03/03/17 05:30 Lymph % (Auto) 18.0 % (22.0-35.0) L 03/03/17 05:30 Gosper % (Auto) 8.1 % (1.0-6.0) H 03/03/17 05:30 Eos % (Auto) 0.2 % (1.5-5.0) L 03/03/17 05:30 Baso % (Auto) 0.1 % (0.0-3.0) 03/03/17 05:30 Gran # 9.44 (1.4-6.5) H 03/03/17 05:30 Lymph # 2.3 (1.2-3.4) 03/03/17 05:30 Gosper # 1.0 (0.1-0.6) H 03/03/17 05:30 Eos # 0.0 (0.0-0.7) 03/03/17 05:30 Baso # 0.01 K/mm3 (0.0-2.0) 03/03/17 05:30 Neutrophils % (Manual) 93 % (50.0-70.0) H 02/28/17 06:50 Lymphocytes % (Manual) 5 % (22.0-35.0) L 02/28/17 06:50 Monocytes % (Manual) 2 % (1.0-6.0) 02/28/17 06:50 Toxic Granulation Slight 02/28/17 06:50 Platelet Evaluation Normal (NORMAL) 02/28/17 06:50 Anisocytosis (manual) Slight 02/28/17 06:50 pCO2 51 mm/Hg (35-45) H 02/28/17 02:19 pO2 70.0 mm/Hg (80-100) L 02/28/17 02:19 HCO3 33.1 mmol/L (21-28) H 02/28/17 02:19 ABG pH 7.42 (7.35-7.45) 02/28/17 02:19 ABG Total CO2 34.7 mmol.L (22-28) H 02/28/17 02:19 ABG O2 Saturation 97.1 % (95-98) 02/28/17 02:19 ABG O2 Content 17.2 ML/dl (15-23) 02/28/17 02:19 ABG Base Excess 7.2 mmol/L (-2.0-3.0) H 02/28/17 02:19 ABG Hemoglobin 13.4 g/dL (11.7-17.4) 02/28/17 02:19 ABG Carboxyhemoglobin 5.9 % (0.5-1.5) H 02/28/17 02:19 POC ABG HHb (Measured) 2.7 % (0-5) 02/28/17 02:19 ABG Methemoglobin 0.4 % (0.0-3.0) 02/28/17 02:19 ABG O2 Capacity 17.7 mL/dl (16-24) 02/28/17 02:19 Hgb O2 Saturation 90.9 % (95.0-98.0) L 02/28/17 02:19 FiO2 28.0 % 02/28/17 02:19 Sodium 138 mmol/L (132-148) 03/03/17 05:30 Potassium 3.6 mmol/L (3.6-5.0) 03/03/17 05:30 Chloride 101 mmol/L (98-107) 03/03/17 05:30 Carbon Dioxide 34 mmol/L (21-33) H 03/03/17 05:30 Anion Gap 6 (10-20) L 03/03/17 05:30 BUN 21 mg/dL (7-21) 03/03/17 05:30 Creatinine 0.7 mg/dl (0.7-1.2) 03/03/17 05:30 Est GFR ( Amer) > 60 03/03/17 05:30 Est GFR (Non-Af Amer) > 60 03/03/17 05:30 Random Glucose 94 mg/dL (70-110) 03/03/17 05:30 Calcium 8.7 mg/dL (8.4-10.5) 03/03/17 05:30 Phosphorus 4.2 mg/dL (2.5-4.5) 03/02/17 05:30 Magnesium 2.0 mg/dL (1.7-2.2) 03/02/17 05:30 Total Bilirubin 0.4 mg/dL (0.2-1.3) 03/03/17 05:30 AST 32 U/L (14-36) 03/03/17 05:30 ALT 68 U/L (7-56) H 03/03/17 05:30 Alkaline Phosphatase 54 U/L (38-126) 03/03/17 05:30 Lactate Dehydrogenase 607 U/L (333-699) 02/28/17 02:00 Total Creatine Kinase 61 U/L (35-230) 02/28/17 02:00 Troponin I < 0.01 ng/mL D 02/28/17 02:00 Total Protein 5.6 g/dL (5.8-8.3) L 03/03/17 05:30 Albumin 3.0 g/dL (3.0-4.8) 03/03/17 05:30 Globulin 2.6 gm/dL 03/03/17 05:30 Albumin/Globulin Ratio 1.1 (1.1-1.8) 03/03/17 05:30 Urine HCG, Qual Negative (NEGATIVE) 03/01/17 13:43 Urine Opiates Screen Positive (NEGATIVE) H 03/01/17 13:43 Urine Methadone Screen Negative (NEGATIVE) 03/01/17 13:43 Ur Barbiturates Screen Negative (NEGATIVE) 03/01/17 13:43 Ur Phencyclidine Scrn Negative (NEGATIVE) 03/01/17 13:43 Ur Amphetamines Screen Negative (NEGATIVE) 03/01/17 13:43 U Benzodiazepines Scrn No result (NEGATIVE) 03/01/17 13:43 U Oth Cocaine Metabols Negative (NEGATIVE) 03/01/17 13:43 U Cannabinoids Screen Positive (NEGATIVE) H 03/01/17 13:43 Alcohol, Quantitative < 10 mg/dL (0-10) 02/28/17 06:50 Attending/Attestation - Attestation I have personally seen and examined this patient.: Yes I have fully participated in the care of the patient.: Yes I have reviewed all pertinent clinical information, including history, physical exam and plan: Yes Notes (Text): 03/04/17 16:47 Attending note; Patient seen and examined with resident. Patient is a 46 year old female with a past medical history of COPD, etoh abuse , Hepatitis C, heroin abuse, active smoking , homelessness who is being admitted for COPD exacerbation. Treated with oxygen, DuoNeb and IV Solu-Medrol. Currently with significant improvement in respiratory status. Ambulating without oxygen. Active smoking; smoking cessation is strongly advised. On NicoDerm patch. Alcohol abuse; alcohol cessation is strongly advised. Continue multivitamin, thiamine, folic acid. On tapering dose of Librium and Ativan. drug abuse; complete cessation is strongly advised. social work program coordinator evaluation appreciated. Prognosis is very poor secondary to continuous drug abuse,alcohol abuse and noncompliance with follow-up. Diagnosis; COPD Active smoking Alcohol abuse Heroin abuse Hepatitis C Homelessness Noncompliance with follow-up
== END 2017-03-03 15:56 | disposition home or self-care (01) | DRG 88 ==
LOC: ED 00:42 → ERH 03:52 → 3RSO 15:26 → 3RNO 03-03 01:02
PROVIDERS: ADMIT Internal Medicine; ATTEND Internal Medicine
DX: J44.1 Chronic obstructive pulmonary disease with (acute) exacerbation (principal); K70.30 Alcoholic cirrhosis of liver without ascites; F10.239 Alcohol dependence with withdrawal, unspecified; F11.10 Opioid abuse, uncomplicated; I10 Essential (primary) hypertension; B19.20 Unspecified viral hepatitis C without hepatic coma; R09.02 Hypoxemia; D72.829 Elevated white blood cell count, unspecified; M19.90 Unspecified osteoarthritis, unspecified site; F17.210 Nicotine dependence, cigarettes, uncomplicated; Z59.0 Homelessness; Z91.19 Patient's noncompliance with other medical treatment and regimen; Z83.3 Family history of diabetes mellitus

== ENCOUNTER 2017-03-05 22:51 | Observation (INO) | payer MEDICAID ==
[2017-03-05] MEDS ORDERED: Albuterol-Ipratrop 3 mg / 0.5 (3 ml) UD IH STA (23:18)
--- NOTE | 2017-03-05 23:51 | ED PDOC ---
Arrival/HPI - General Chief Complaint: Respiratory Distress Time Seen by Provider: 03/05/17 23:01 Historian: Patient - History of Present Illness Narrative History of Present Illness (Text): 03/05/17 23:20 Fani Chambers is a 46 year old female smoker, whose past medical history includes asthma, COPD, Hepatitis C, alcohol abuse, IV and drug abuse, who presents to the ED complaining of shortness of breath and wheezing today. Patient states symptoms are consistent with previous episodes of asthma and reports she ran out of her asthma medication. Patient denies any fever, chills, chest pain, abdominal pain, nausea, vomiting, diarrhea, urinary symptoms, back pain, neck pain, headache, dizziness, or any other complaints. Time/Duration: Other (tonight) Symptom Onset: Gradual Symptom Course: Unchanged Activities at Onset: Light Past Medical History - Provider Review Nursing Documentation Reviewed: Yes - Infectious Disease Hx of Infectious Diseases: None - Tetanus Immunization Tetanus Immunization: Unknown - Cardiac Hx Cardiac Disorders: No Hx Hypertension: Yes - Pulmonary Hx Chronic Obstructive Pulmonary Disease (COPD): Yes - Neurological HX Cerebrovascular Accident: No - HEENT Hx HEENT Disorder: No - Renal Hx Renal Disorder: No - Endocrine/Metabolic Hx Endocrine Disorders: No - Hematological/Oncological Hx Blood Disorders: Yes Hx Hepatitis C: Yes - Integumentary Hx Dermatological Disorder: Yes - Musculoskeletal/Rheumatological Hx Falls: Yes - Gastrointestinal Hx Gastrointestinal Disorders: Yes Hx Pancreatitis: Yes Other/Comment: Umbilical hernia /cirrhosis - Genitourinary/Gynecological Hx Genitourinary Disorders: No Hx Sexually Transmitted Diseases: Yes (trichomonas) - Psychiatric Hx Psychophysiologic Disorder: Yes Hx Anxiety: Yes Hx Depression: Yes Hx Substance Use: Yes (former) Other/Comment: alcohol - Surgical History Hx Appendectomy: Yes - Anesthesia Hx Anesthesia: Yes Hx Anesthesia Reactions: No Hx Malignant Hyperthermia: No - Suicidal Assessment Feels Threatened In Home Enviroment: No Family/Social History - Physician Review Nursing Documentation Reviewed: Yes Family/Social History: Unknown Family HX Smoking Status: Current Some Days Smoker Hx Alcohol Use: Yes Hx Substance Use: Yes (former) Substance used: HEROIN Hx Substance Use Treatment: Yes Allergies/Home Meds Allergies/Adverse Reactions: Allergies No Known Allergies Allergy (Verified 03/05/17 23:24) Home Medications: Home Meds Medication Instructions Recorded Confirmed traZODone [Desyrel] 50 mg PO HS PRN 11/14/17 11/19/17 Review of Systems - Physician Review All systems were reviewed & negative as marked: Yes - Review of Systems Constitutional: Normal. absent: Fevers Eyes: Normal ENT: Normal Respiratory: SOB, Wheezing. absent: Cough Cardiovascular: Normal. absent: Chest Pain Gastrointestinal: Normal. absent: Abdominal Pain, Diarrhea, Nausea, Vomiting Genitourinary Female: Normal. absent: Dysuria, Frequency, Hematuria, Urine Output Changes Musculoskeletal: Normal. absent: Back Pain, Neck Pain Skin: Normal. absent: Rash Neurological: Normal. absent: Headache, Dizziness Endocrine: Normal Hemo/Lymphatic: Normal Psychiatric: Normal Physical Exam Vital Signs Reviewed: Yes Vital Signs Temp Pulse Resp BP Pulse Ox 03/06/17 02:43 96 H 17 98 03/05/17 23:30 18 97 03/05/17 23:23 98.3 F 107 H 18 129/74 97 Temperature: Afebrile Blood Pressure: Normal Pulse: Regular Respiratory Rate: Normal Appearance: Positive for: Well-Appearing, Non-Toxic, Comfortable Pain Distress: None Mental Status: Positive for: Alert and Oriented X 3 - Systems Exam Head: Present: Atraumatic, Normocephalic Pupils: Present: PERRL Extroacular Muscles: Present: EOMI Conjunctiva: Present: Normal Mouth: Present: Moist Mucous Membranes Neck: Present: Normal Range of Motion Respiratory/Chest: Present: Wheezes (Wheezing bilaterally). No: Respiratory Distress, Accessory Muscle Use Cardiovascular: Present: Regular Rate and Rhythm, Normal S1, S2. No: Murmurs Abdomen: Present: Normal Bowel Sounds. No: Tenderness, Distention, Peritoneal Signs Back: Present: Normal Inspection Upper Extremity: Present: Normal Inspection. No: Cyanosis, Edema Lower Extremity: Present: Normal Inspection. No: Edema Neurological: Present: GCS=15, CN II-XII Intact, Speech Normal Skin: Present: Warm, Dry, Normal Color. No: Rashes Psychiatric: Present: Alert, Oriented x 3, Normal Insight, Normal Concentration Medical Decision Making ED Course and Treatment: 03/05/17 23:20 Impression: 46 year old female complaining of shortness of breath and wheezing today. Differential Diagnosis included but are not limited to: asthma vs. COPD vs. bronchitis vs. pneumonia Plan: -- Labs -- Chest X-ray -- Duoneb -- Solu-medrol -- Reassess and disposition Prior Visits: Notes and results from previous visits were reviewed. On 02/28/17, pt was seen in the Emergency department for shortness of breath, wheezing, dry cough, and chest tightness. Pt was admitted to the hospital for further evaluation. Progress Notes: 03/06/17 01:16 reviewed radiology, Chest X-ray shows no acute processes. 03/06/17 02:17 Case discussed with medical assisting program director personal care home administrator, who is aware and agrees with plan. Case discussed with Dr. Garces, who is aware and agrees with plan. Accepts pt in to hospitalist service. Pt will go to Telemetry observation for COPD exacerbation. 03/06/17 02:40 Pt. with some signs of early alcohol withdrawal - Lab Interpretations Lab Results: 03/06/17 01:00 03/06/17 01:00 Lab Results 03/06/17 01:00: WBC 16.2 H D, RBC 4.27, Hgb 14.0 D, Hct 42.1, MCV 98.6, MCH 32.8, MCHC 33.3, RDW 14.7 H, Plt Count 305, MPV 10.1 03/06/17 01:00: Sodium 133, Potassium 3.3 L, Chloride 99, Carbon Dioxide 29, Anion Gap 8 L, BUN 11, Creatinine 0.5 L, Est GFR ( Amer) > 60, Est GFR ( Non-Af Amer) > 60, Random Glucose 110, Calcium 8.2 L, Total Bilirubin 0.6, AST 37 H, ALT 79 H, Alkaline Phosphatase 75, Total Protein 6.1, Albumin 3.2, Globulin 2.8, Albumin/Globulin Ratio 1.1 I have reviewed the lab results: Yes - RAD Interpretation Radiology Orders: 03/05/17 23:23 CHEST PORTABLE [RAD] Stat Parts Control Clerk: ED Physician - Medication Orders Current Medication Orders: Acetaminophen (Tylenol 325mg Tab) 650 mg PO Q4 PRN PRN Reason: Fever >100.4 F Citalopram Hydrobromide (Celexa) 10 mg PO DAILY JACK Heparin Sodium (Porcine) (Heparin) 5,000 units SC Q12 JACK PRN Reason: Protocol Multivitamins/Vitamin C 10 ml/Thiamine HCl 100 mg/ Folic Acid 1 mg/ Sodium Chloride 1,011.2 mls @ 100 mls/hr IV .[id number] ONE Stop: 03/06/17 13:18 Levalbuterol HCl (Xopenex) 0.63 mg IH [id number] PRN PRN Reason: Shortness of Breath Lorazepam (Ativan) 2 mg IVP Q2H PRN; Protocol PRN Reason: Anxiety Lorazepam (Ativan) 2 mg IVP Q4 JACK PRN Reason: Protocol Methylprednisolone (Solu-Medrol) 40 mg IVP DAILY JACK Ondansetron HCl (Zofran Inj) 4 mg IVP Q4H PRN PRN Reason: Nausea/Vomiting Pantoprazole Sodium (Protonix Ec Tab) 40 mg PO 0600 JACK Trazodone HCl (Desyrel) 50 mg PO HS PRN PRN Reason: Insomnia Discontinued Medications Albuterol/Ipratropium (Duoneb 3 Mg/0.5 Mg (3 Ml) Ud) 3 ml IH ONCE STA Stop: 03/05/17 23:19 Last Admin: 03/06/17 00:11 Dose: 3 ml Albuterol/Ipratropium (Duoneb 3 Mg/0.5 Mg (3 Ml) Ud) 3 ml IH ONCE STA Stop: 03/06/17 01:17 Last Admin: 03/06/17 01:29 Dose: 3 ml Chlordiazepoxide (Librium) 50 mg PO STAT STA PRN Reason: Protocol Stop: 03/06/17 02:46 Last Admin: 03/06/17 03:09 Dose: 50 mg Methylprednisolone (Solu-Medrol) 125 mg IVP ONCE ONE Stop: 03/05/17 23:19 Last Admin: 03/06/17 00:11 Dose: 125 mg IVP Administration Document 03/06/17 00:11 IT (Rec: 03/06/17 00:11 IT RECOVERED-LAP) Charges for Administration # of IVP Administrations 1 Potassium Chloride (K-Dur 20 Meq Er Tab) 20 meq PO STAT STA Stop: 03/06/17 02:04 Last Admin: 03/06/17 02:38 Dose: 20 meq Potassium Chloride (K-Dur 20 Meq Er Tab) 40 meq PO STAT STA Stop: 03/06/17 03:09 - Scribe Statement The provider has reviewed the documentation as recorded by the Jc Rosales Provider Scribe Attestation: All medical record entries made by the Scribe were at my direction and personally dictated by me. I have reviewed the chart and agree that the record accurately reflects my personal performance of the history, physical exam, medical decision making, and the department course for this patient. I have also personally directed, reviewed, and agree with the discharge instructions and disposition. Disposition/Present on Arrival - Present on Arrival Any Indicators Present on Arrival: No History of DVT/PE: No History of Uncontrolled Diabetes: No Urinary Catheter: No History of Decub. Ulcer: No History Surgical Site Infection Following: None - Disposition Have Diagnosis and Disposition been Completed?: Yes Diagnosis: COPD exacerbation, Alcohol withdrawal Disposition: HOSPITALIZED Disposition Time: 02:18 Patient Plan: Observation Patient Problems: Current Active Problems Problem Status Onset COPD exacerbation Acute Condition: STABLE
[2017-03-06] MEDS ORDERED: Albuterol-Ipratrop 3 mg / 0.5 (3 ml) UD IH STA (01:16)
[2017-03-06 01:25] LABS: HEMATOCRIT 42.1 % (36.0-48.0); MEAN CELL VOLUME 98.6 fl (80.0-105.0); MEAN CORPUSCULAR HEMOGLOBIN 32.8 pg (25.0-35.0); MEAN CORPUSCULAR HGB CONC 33.3 g/dl (31.0-37.0); MEAN PLATELET VOLUME 10.1 fl (7.0-11.0); RED CELL DISTRIBUTION WIDTH 14.7 % (11.5-14.5); WHITE BLOOD COUNT 16.2 10^3/ul (4.5-11.0)
[2017-03-06 01:41] LABS: ALB/GLOB RATIO 1.1 (1.1-1.8); ALKALINE PHOSPHATASE 75 U/L (38-126); ALT/SGPT 79 U/L (7-56); AST/SGOT 37 U/L (14-36); BILIRUBIN,TOTAL 0.6 mg/dL (0.2-1.3); BLOOD UREA NITROGEN 11 mg/dL (7-21); CALCIUM 8.2 mg/dL (8.4-10.5); CARBON DIOXIDE 29 mmol/L (21-33); CHLORIDE 99 mmol/L (98-107); GFR AFRICAN-AMERICAN > 60; GLUCOSE,RANDOM 110 mg/dL (70-110); POTASSIUM 3.3 mmol/L (3.6-5.0); SODIUM 133 mmol/L (132-148); TOTAL PROTEIN 6.1 g/dL (5.8-8.3)
[2017-03-06] MEDS ORDERED: Potassium Chloride 20 mEq ER Tab PO STA ×2 (02:03→03:08)
[2017-03-06] MEDS ORDERED: Levalbuterol 0.63 MG/3 ML Inhal Soln UD IH PRN (03:10)
[2017-03-06] MEDS ORDERED: Multivitamin (MVI) 10 ML, Thiamine 100 MG, Folic Acid 1 MG in Sodium Chloride 0.9% 1,00... IV ONE (03:12)
--- NOTE | 2017-03-06 05:37 | CP.PCM.HP ---
<Imer Ware - Last Filed: 03/06/17 05:27> History of Present Illness - History of Present Illness History of Present Illness: Ms. Chambers is a 46 year old female with past medical history of COPD, asthma , alcohol/heroin abuse, homelessness, Hep C, liver cirrhosis who presents with asthma exacerbation that started earlier today despite of her taking her meds which were prescribed from last hospital stay. pt states that with the weather changes, she gets more frequent exacerbations despite her medication compliance . pt does admit to continuing to drink ETOH earlier in the day And smoking tobacco. when asked about the programs that SW set up for her, she states that she has the papers but has not called any yet. pt also complains of cough and associated chest discomfort with the cough, but she denies chest pain, fevers/ chills, n/v/d. 12-pt ROS was reviewed and is otherwise unremarkable. In ED, pt was given Duoneb, solu-medrol and given Librium. Potassium also repleted. PMD: none Allergies: NKDA Medications: Albuterol, steroids Medical Hx: COPD, asthma (never been intubated), alcohol/heroin abuse, Hep C ( known and untreated), liver cirrhosis Surgical Hx: Appendectomy, tonsillectomy Social Hx: Smokes 1/2 pk/day for >30 years, drinks 5-6 cans of four frances daily ( 14% alcohol x 24 ounces), denies other heroin/cocaine or substance use; homeless Family Hx: Father - DM; Mother - healthy Present on Admission - Present on Admission Any Indicators Present on Admission: No History of DVT/PE: No History of Uncontrolled Diabetes: No Urinary Catheter: No Decubitus Ulcer Present: No Review of Systems - Review of Systems All systems: reviewed and no additional remarkable complaints except (as per HPI ) Past Patient History - Infectious Disease Hx of Infectious Diseases: None - Tetanus Immunizations Tetanus Immunization: Unknown - Past Medical History & Family History Past Medical History?: Yes - Past Social History Smoking Status: Heavy Smoker > 10 Cigarettes Daily Alcohol: > 2 Drinks/Day Drugs: Denies - CARDIAC Hx Cardiac Disorders: No Hx Hypertension: Yes - PULMONARY Hx Asthma: Yes Hx Bronchitis: Yes Hx Chronic Obstructive Pulmonary Disease (COPD): Yes - NEUROLOGICAL Hx Neurological Disorder: No HX Cerebrovascular Accident: No - HEENT Hx HEENT Problems: No - RENAL Hx Chronic Kidney Disease: No - ENDOCRINE/METABOLIC Hx Endocrine Disorders: No - HEMATOLOGICAL/ONCOLOGICAL Hx Blood Disorders: Yes Hx Hepatitis C: Yes - INTEGUMENTARY Hx Dermatological Problems: Yes - MUSCULOSKELETAL/RHEUMATOLOGICAL Hx Falls: Yes - GASTROINTESTINAL Hx Gastrointestinal Disorders: Yes Hx Pancreatitis: Yes Other/Comment: Umbilical hernia /cirrhosis - GENITOURINARY/GYNECOLOGICAL Hx Genitourinary Disorders: No Hx Sexually Transmitted Disorders: Yes (trichomonas) - PSYCHIATRIC Hx Psychophysiologic Disorder: Yes Hx Anxiety: Yes Hx Depression: Yes Hx Substance Use: Yes (former) Other/Comment: alcohol - SURGICAL HISTORY Hx Appendectomy: Yes - ANESTHESIA Hx Anesthesia: Yes Hx Anesthesia Reactions: No Hx Malignant Hyperthermia: No Meds Allergies/Adverse Reactions: Allergies Allergy/AdvReac Type Severity Reaction Status Date / Time No Known Allergies Allergy Verified 03/05/17 23:24 Physical Exam - Constitutional Appears: Well, Non-toxic, No Acute Distress, Unkempt - Head Exam Head Exam: ATRAUMATIC, NORMAL INSPECTION, NORMOCEPHALIC - Eye Exam Eye Exam: EOMI, Normal appearance, PERRL Pupil Exam: NORMAL ACCOMODATION - ENT Exam ENT Exam: Mucous Membranes Moist, Normal Exam - Neck Exam Neck exam: Positive for: Full Rom, Normal Inspection - Respiratory Exam Respiratory Exam: Rhonchi (diffuse), Wheezes, NORMAL BREATHING PATTERN - Cardiovascular Exam Cardiovascular Exam: RRR, +S1, +S2. absent: Gallop, JVD, Rubs - GI/Abdominal Exam GI & Abdominal Exam: Normal Bowel Sounds, Soft. absent: Distended, Firm, Guarding, Tenderness - Extremities Exam Extremities exam: Positive for: full ROM, normal inspection. Negative for: pedal edema - Back Exam Back exam: NORMAL INSPECTION - Neurological Exam Neurological exam: Alert, Normal Gait - Psychiatric Exam Psychiatric exam: Normal Affect, Normal Mood - Skin Skin Exam: Dry, Normal Color, Warm Results - Vital Signs Recent Vital Signs: Last Vital Signs Temp 98.3 F 03/05/17 23:23 Pulse 77 03/06/17 04:47 Resp 17 03/06/17 04:47 BP 132/86 03/06/17 04:47 Pulse Ox 97 03/06/17 04:47 - Labs Result Diagrams: 03/06/17 01:00 03/06/17 01:00 Assessment & Plan - Assessment and Plan (Free Text) Assessment: 46 yo F PMH COPD, asthma, alcohol/heroin abuse, homelessness, Hep C, liver cirrhosis presenting with cough and shortness of breath likely 2/2 hx of uncontrolled COPD and ETOH withdrawal Plan: 1. COPD exacerbation - Xopenex PRN due to elevated HR - solu-medrol 40 IVP daily - cont to monitor oxygenation level - tylenol prn 2. ETOH abuse/withdrawal - cont banana bag - Ativan 2mg Q4 JACK and Q2 PRN - seizure precautions - cont to educate pt about dangers of continuing to use ETOH and other substances - monitor vitals for signs of ETOH withdrawal - Librium not started due to transaminitis - zofran prn 3. Hx depression - cont Celexa and Trazodone 4. Transaminitis - Hx of liver cirhosis and Hep C (known and untreated) - Will continue to monitor - Avoid hepatotoxic agents (eg. librium) 5. Tobacco abuse - Nicotine patch ordered - Tobacco cessation advised - Patient aware that smoking is compromising her respiratory status 6. Leukocytosis - Likely secondary to chronic steroid use - No active signs of infection at this time - will hold off on adding antibiotics as pt is afebrile and to reduce risk of antibiotic resistance - Will continue to monitor PTX/ Heparin HHD Patient was seen, examined and discussed with attending, Dr. Mili Ware PGY1 - Date & Time Date: 03/06/17 Time: 05:01 <Ingrid Garces - Last Filed: 03/06/17 06:59> Results - Vital Signs Recent Vital Signs: Last Vital Signs Temp 98.3 F 03/05/17 23:23 Pulse 76 03/06/17 06:14 Resp 17 03/06/17 06:14 BP 128/81 03/06/17 06:14 Pulse Ox 96 03/06/17 06:14 - Labs Result Diagrams: 03/06/17 01:00 03/06/17 01:00 Attending/Attestation - Attestation I have personally seen and examined this patient.: Yes I have fully participated in the care of the patient.: Yes I have reviewed all pertinent clinical information: Yes Notes (Text): 03/06/17 06:59 Patient was seen when she was in bed # 1 in the ER. Agree with history , physical examination, assessment and plan.
[2017-03-06] MEDS: Pantoprazole 40 mg EC Tab PO SCH (08:15)
--- NOTE | 2017-03-06 08:29 | RAD ---
HISTORY: sob COMPARISON: Portable chest 02/28/2017. FINDINGS: LUNGS: No active pulmonary disease. PLEURA: No significant pleural effusion identified, no pneumothorax apparent. CARDIOVASCULAR: Normal. OSSEOUS STRUCTURES: No significant abnormalities. VISUALIZED UPPER ABDOMEN: Normal. OTHER FINDINGS: None. IMPRESSION: No interval acute cardiopulmonary disease appreciated.
[2017-03-06] MEDS: MethylPREDNISolone 40 mg Vial IVP SCH (09:45)
[2017-03-06 21:34] VITALS: BMI 29.5
[2017-03-06] MEDS ORDERED: Influenza Vaccine 60 mcg/0.5 mL SYR (4YR UP) IM ONE (21:34)
[2017-03-06] MEDS ORDERED: Pneumococcal 23-Valent Vaccine IM ONE (21:34)
[2017-03-07] MEDS: Pantoprazole 40 mg EC Tab PO SCH (06:15)
[2017-03-07 07:05] LABS: BASO # 0.03 K/mm3 (0.0-2.0); BASO % 0.2 % (0.0-3.0); EOS # 0.1 (0.0-0.7); EOS % 0.6 % (1.5-5.0); GRAN # 12.17 (1.4-6.5); GRAN % 76.7 % (50.0-68.0); HEMATOCRIT 39.6 % (36.0-48.0); LYMPH # 2.5 (1.2-3.4); LYMPH % 15.5 % (22.0-35.0); MEAN CELL VOLUME 100.3 fl (80.0-105.0); MEAN CORPUSCULAR HEMOGLOBIN 32.2 pg (25.0-35.0); MEAN CORPUSCULAR HGB CONC 32.1 g/dl (31.0-37.0); MEAN PLATELET VOLUME 10.2 fl (7.0-11.0); MONO # 1.1 (0.1-0.6); RED CELL DISTRIBUTION WIDTH 14.5 % (11.5-14.5); WHITE BLOOD COUNT 15.9 10^3/ul (4.5-11.0)
[2017-03-07 07:39] LABS: ALB/GLOB RATIO 1.1 (1.1-1.8); ALKALINE PHOSPHATASE 57 U/L (38-126); ALT/SGPT 59 U/L (7-56); AST/SGOT 25 U/L (14-36); BILIRUBIN,TOTAL 0.6 mg/dL (0.2-1.3); BLOOD UREA NITROGEN 15 mg/dL (7-21); CALCIUM 8.5 mg/dL (8.4-10.5); CARBON DIOXIDE 36 mmol/L (21-33); CHLORIDE 103 mmol/L (98-107); GFR AFRICAN-AMERICAN > 60; GLUCOSE,RANDOM 108 mg/dL (70-110); POTASSIUM 4.5 mmol/L (3.6-5.0); SODIUM 138 mmol/L (132-148); TOTAL PROTEIN 5.6 g/dL (5.8-8.3)
[2017-03-07] MEDS ORDERED: guaiFENesin 100 mg/5 ml Syrup UD PO PRN (07:43)
[2017-03-07] MEDS: MethylPREDNISolone 40 mg Vial IVP SCH (09:50)
--- NOTE | 2017-03-07 14:26 | CP.PCM.PN ---
<Joe Mathur - Last Filed: 03/07/17 16:06> Subjective - Date & Time of Evaluation Date of Evaluation: 03/07/17 Time of Evaluation: 10:23 - Subjective Subjective: Patient was seen and examined at bedside. Per nursing no acute events occurred overnight. The patient reports coughing all night with a productive cough ( yellow sputum). The patient also reports being able to hear herself wheeze. The patient denies any chest pain, nausea, vomiting, headaches, changes in vision, abdominal pain, chills, or any other complaints. Objective - Vital Signs/Intake and Output Vital Signs (last 24 hours): Temp Pulse Resp BP Pulse Ox 98 F 84 19 159/93 H 99 03/07/17 06:00 03/07/17 06:00 03/07/17 06:00 03/07/17 06:00 03/07/17 06:00 Intake and Output: 03/07/17 03/07/17 06:59 18:59 Intake Total 660 Balance 660 - Medications Medications: Current Medications Acetaminophen (Tylenol 325mg Tab) 650 mg PO Q4 PRN PRN Reason: Fever >100.4 F Citalopram Hydrobromide (Celexa) 10 mg PO DAILY [facility] Last Admin: 03/07/17 09:49 Dose: 10 mg Guaifenesin (Robitussin) 100 mg PO Q4H PRN PRN Reason: Cough Last Admin: 03/07/17 12:37 Dose: 100 mg Heparin Sodium (Porcine) (Heparin) 5,000 units SC Q12 JACK PRN Reason: Protocol Last Admin: 03/07/17 09:50 Dose: 5,000 units Levalbuterol HCl (Xopenex) 0.63 mg IH [id number] PRN PRN Reason: Shortness of Breath Last Admin: 03/07/17 10:25 Dose: 0.63 mg Lorazepam (Ativan) 2 mg IVP Q2H PRN; Protocol PRN Reason: Anxiety Last Admin: 03/07/17 12:37 Dose: 2 mg Lorazepam (Ativan) 1 mg IVP Q6H JACK PRN Reason: Protocol Last Admin: 03/07/17 09:49 Dose: 1 mg Methylprednisolone (Solu-Medrol) 40 mg IVP DAILY [facility] Last Admin: 03/07/17 09:50 Dose: 40 mg Ondansetron HCl (Zofran Inj) 4 mg IVP Q4H PRN PRN Reason: Nausea/Vomiting Pantoprazole Sodium (Protonix Ec Tab) 40 mg PO 0600 [facility] Last Admin: 03/07/17 06:15 Dose: 40 mg Trazodone HCl (Desyrel) 50 mg PO HS PRN PRN Reason: Insomnia Last Admin: 03/06/17 21:34 Dose: 50 mg - Labs Labs: 03/07/17 06:30 03/07/17 06:30 - Head Exam Head Exam: ATRAUMATIC, NORMAL INSPECTION, NORMOCEPHALIC - Eye Exam Eye Exam: EOMI, Normal appearance, PERRL. absent: Periorbital swelling, Periorbital tenderness Pupil Exam: NORMAL ACCOMODATION. absent: Irregular, Unequal - ENT Exam ENT Exam: Mucous Membranes Moist, Normal Exam, Normal Oropharynx - Neck Exam Neck Exam: Normal Inspection. absent: Lymphadenopathy, Thyromegaly - Respiratory Exam Respiratory Exam: Clear to Ausculation Bilateral, NORMAL BREATHING PATTERN. absent: Prolonged Expiratory Phase, Respiratory Distress - Cardiovascular Exam Cardiovascular Exam: REGULAR RHYTHM, +S1, +S2. absent: Gallop, Rubs - GI/Abdominal Exam GI & Abdominal Exam: Soft, Normal Bowel Sounds - Back Exam Back Exam: NORMAL INSPECTION. absent: CVA tenderness (L), CVA tenderness (R), paraspinal tenderness - Neurological Exam Neurological Exam: Alert, Awake, CN II-XII Intact - Psychiatric Exam Psychiatric exam: Normal Affect, Normal Mood - Skin Skin Exam: Dry, Intact, Normal Color Assessment and Plan - Assessment and Plan (Free Text) Assessment: 46 yo F PMH COPD, asthma, alcohol/heroin abuse, homelessness, Hep C, liver cirrhosis presenting with cough and shortness of breath likely 2/2 hx of uncontrolled COPD and ETOH withdrawal Plan: 1. COPD exacerbation -continue Xopenex PRN due to elevated HR - continue solu-medrol 40 IVP daily - cont to monitor oxygenation level - tylenol prn 2. ETOH abuse/withdrawal - continue Ativan 2mg Q4 JACK and Q2 PRN - continue seizure precautions - cont to educate pt about dangers of continuing to use ETOH and other substances - monitor vitals for signs of ETOH withdrawal - Librium not started due to transaminitis - zofran prn 3. Hx depression - cont Celexa and Trazodone 4. Transaminitis - Hx of liver cirhosis and Hep C (known and untreated) - Will continue to monitor - Avoid hepatotoxic agents (eg. librium) 5. Tobacco abuse - Nicotine patch ordered - Tobacco cessation advised - Patient aware that smoking is compromising her respiratory status 6. Leukocytosis - Likely secondary to chronic steroid use - No active signs of infection at this time - will hold off on adding antibiotics as pt is afebrile and to reduce risk of antibiotic resistance - Will continue to monitor PTX/ Heparin HHD <Juli Louise B - Last Filed: 03/07/17 18:01> Objective - Vital Signs/Intake and Output Vital Signs (last 24 hours): Temp Pulse Resp BP Pulse Ox 98.1 F 89 18 115/76 97 03/07/17 16:11 03/07/17 16:11 03/07/17 16:11 03/07/17 16:11 03/07/17 16:11 Intake and Output: 03/07/17 03/07/17 06:59 18:59 Intake Total 660 Balance 660 - Medications Medications: Current Medications Acetaminophen (Tylenol 325mg Tab) 650 mg PO Q4 PRN PRN Reason: Fever >100.4 F Citalopram Hydrobromide (Celexa) 10 mg PO DAILY [facility] Last Admin: 03/07/17 09:49 Dose: 10 mg Guaifenesin (Robitussin) 100 mg PO Q4H PRN PRN Reason: Cough Last Admin: 03/07/17 12:37 Dose: 100 mg Heparin Sodium (Porcine) (Heparin) 5,000 units SC Q12 JACK PRN Reason: Protocol Last Admin: 03/07/17 09:50 Dose: 5,000 units Levalbuterol HCl (Xopenex) 0.63 mg IH [id number] PRN PRN Reason: Shortness of Breath Last Admin: 03/07/17 10:25 Dose: 0.63 mg Lorazepam (Ativan) 2 mg IVP Q2H PRN; Protocol PRN Reason: Anxiety Last Admin: 03/07/17 12:37 Dose: 2 mg Lorazepam (Ativan) 1 mg IVP Q6H JACK PRN Reason: Protocol Last Admin: 03/07/17 17:11 Dose: 1 mg Methylprednisolone (Solu-Medrol) 40 mg IVP DAILY [facility] Last Admin: 03/07/17 09:50 Dose: 40 mg Ondansetron HCl (Zofran Inj) 4 mg IVP Q4H PRN PRN Reason: Nausea/Vomiting Pantoprazole Sodium (Protonix Ec Tab) 40 mg PO 0600 [facility] Last Admin: 03/07/17 06:15 Dose: 40 mg Trazodone HCl (Desyrel) 50 mg PO HS PRN PRN Reason: Insomnia Last Admin: 03/06/17 21:34 Dose: 50 mg - Labs Labs: 03/07/17 06:30 03/07/17 06:30 Attending/Attestation - Attestation I have personally seen and examined this patient.: Yes I have fully participated in the care of the patient.: Yes I have reviewed all pertinent clinical information, including history, physical exam and plan: Yes Notes (Text): I have seen and examined the patient with the resident at bedside. Agree with the above note with the following additions/ exceptions: Briefly this is 46 year old female with history of COPD, alcohol abuse, known and untreated Hepatitis C, heroin abuse, active smoking, homelessness who was admitted for copd exacerbation. Patient feels slightly better today however still continues to cough and has wheezing. Denies hallucinations, tremors, nausea, vomiting however patient admits to cough, phlegm production and wheezing. Continue solumedrol taper and taper ativan. Tobacco, alcohol and polysubstance cessation counselling provided. Prognosis is very poor secondary to continuous drug abuse and noncompliance with follow-up. Plan to discharge patient in 24 hours. Advised patient to go to care home however she refused. Upon discharge patient will follow up with Dr Chantel Salinas and sales consultant insurance of choice. Dr Juli Louise
[2017-03-08] MEDS: Pantoprazole 40 mg EC Tab PO SCH (06:14)
[2017-03-08 06:25] LABS: BASO # 0.02 K/mm3 (0.0-2.0); BASO % 0.1 % (0.0-3.0); EOS # 0.1 (0.0-0.7); EOS % 0.3 % (1.5-5.0); GRAN # 10.59 (1.4-6.5); GRAN % 73.5 % (50.0-68.0); HEMATOCRIT 39.2 % (36.0-48.0); LYMPH # 2.8 (1.2-3.4); MEAN CORPUSCULAR HEMOGLOBIN 32.1 pg (25.0-35.0); MEAN CORPUSCULAR HGB CONC 32.1 g/dl (31.0-37.0); MEAN PLATELET VOLUME 10.4 fl (7.0-11.0); MONO % 7.1 % (1.0-6.0); RED CELL DISTRIBUTION WIDTH 14.5 % (11.5-14.5); WHITE BLOOD COUNT 14.4 10^3/ul (4.5-11.0)
[2017-03-08 06:55] LABS: BLOOD UREA NITROGEN 15 mg/dL (7-21); GFR AFRICAN-AMERICAN > 60; GLUCOSE,RANDOM 86 mg/dL (70-110); POTASSIUM 4.1 mmol/L (3.6-5.0); SODIUM 137 mmol/L (132-148)
[2017-03-08 06:56] LABS: ALB/GLOB RATIO 1.1 (1.1-1.8); ALKALINE PHOSPHATASE 52 U/L (38-126); ALT/SGPT 45 U/L (7-56); AST/SGOT 27 U/L (14-36); BILIRUBIN,TOTAL 0.5 mg/dL (0.2-1.3); CALCIUM 8.5 mg/dL (8.4-10.5); CARBON DIOXIDE 34 mmol/L (21-33); CHLORIDE 101 mmol/L (98-107); TOTAL PROTEIN 5.7 g/dL (5.8-8.3)
[2017-03-08 08:05] VITALS: BP 146/92; PULSE 72; RESP 20; TEMP 97.6; O2SAT 99
[2017-03-08] MEDS: MethylPREDNISolone 40 mg Vial IVP SCH (09:34)
--- NOTE | 2017-03-08 11:35 | CP.PCM.DIS ---
<KareenConnien - Last Filed: 03/08/17 15:16> Provider - Provider Date of Admission: 03/06/17 02:14 Attending physician: Juli Louise MD Primary care physician: Brad Golden MD Time Spent in preparation of Discharge (in minutes): 45 Hospital Course - Lab Results Lab Results: Most Recent Lab Values WBC 14.4 10^3/ul (4.5-11.0) H 03/08/17 06:05 RBC 3.92 10^6/uL (3.5-6.1) 03/08/17 06:05 Hgb 12.6 g/dL (12.0-16.0) 03/08/17 06:05 Hct 39.2 % (36.0-48.0) 03/08/17 06:05 MCV 100.0 fl (80.0-105.0) 03/08/17 06:05 MCH 32.1 pg (25.0-35.0) 03/08/17 06:05 MCHC 32.1 g/dl (31.0-37.0) 03/08/17 06:05 RDW 14.5 % (11.5-14.5) 03/08/17 06:05 Plt Count 289 10^3/uL (120.0-450.0) 03/08/17 06:05 MPV 10.4 fl (7.0-11.0) 03/08/17 06:05 Gran % 73.5 % (50.0-68.0) H 03/08/17 06:05 Lymph % (Auto) 19.0 % (22.0-35.0) L 03/08/17 06:05 [place] % (Auto) 7.1 % (1.0-6.0) H 03/08/17 06:05 Eos % (Auto) 0.3 % (1.5-5.0) L 03/08/17 06:05 Baso % (Auto) 0.1 % (0.0-3.0) 03/08/17 06:05 Gran # 10.59 (1.4-6.5) H 03/08/17 06:05 Lymph # 2.8 (1.2-3.4) 03/08/17 06:05 [place] # 1.0 (0.1-0.6) H 03/08/17 06:05 Eos # 0.1 (0.0-0.7) 03/08/17 06:05 Baso # 0.02 K/mm3 (0.0-2.0) 03/08/17 06:05 Sodium 137 mmol/L (132-148) 03/08/17 06:05 Potassium 4.1 mmol/L (3.6-5.0) 03/08/17 06:05 Chloride 101 mmol/L (98-107) 03/08/17 06:05 Carbon Dioxide 34 mmol/L (21-33) H 03/08/17 06:05 Anion Gap 7 (10-20) L 03/08/17 06:05 BUN 15 mg/dL (7-21) 03/08/17 06:05 Creatinine 0.5 mg/dl (0.7-1.2) L 03/08/17 06:05 Est GFR ( Amer) > 60 03/08/17 06:05 Est GFR (Non-Af Amer) > 60 03/08/17 06:05 Random Glucose 86 mg/dL (70-110) 03/08/17 06:05 Calcium 8.5 mg/dL (8.4-10.5) 03/08/17 06:05 Total Bilirubin 0.5 mg/dL (0.2-1.3) 03/08/17 06:05 AST 27 U/L (14-36) 03/08/17 06:05 ALT 45 U/L (7-56) 03/08/17 06:05 Alkaline Phosphatase 52 U/L (38-126) 03/08/17 06:05 Total Protein 5.7 g/dL (5.8-8.3) L 03/08/17 06:05 Albumin 3.0 g/dL (3.0-4.8) 03/08/17 06:05 Globulin 2.7 gm/dL 03/08/17 06:05 Albumin/Globulin Ratio 1.1 (1.1-1.8) 03/08/17 06:05 - Hospital Course Hospital Course: This is a 46 year old female with a past medical history of COPD, asthma, alcohol/heroin abuse, hepatitis C, liver cirrhosis who presents with copd exacerbation that started two days ago despite taking her medications which were she received upon her last hospital admission. The patient reported the change in the weather changes has caused her to get more frequent exacerbations despite taking her medications as prescribed. Patient had a CXR done that was negative for active pulmonary disease. When asked about the programs that the social work has given her on her last admission she reports not calling them yet. Patient also complained of coughing associated with chest discomfort. While admitted the patient was given Duonebs, iv steroids, Nasal cannula 02(2 Liters) and Acetaminophen. The patient was treated for copd exacerbation and etoh withdrawal. The patient was seen by Physical Therapy who determined she was stable and ok for discharge. The patient reports an improvement in shortness of breath and cough. The patient was a-febrile and oxygen saturation was 97% on 2 liters of oxygen. The patient's metabolic panel was within normal limits. The patient's white count was 14.4 however it's most likely secondary to chronic steroid use. Patient was examined and discharged today with instructions to follow up with the rehab facilities, warming centers, and shelters. The patient was strongly advised to return to the hospital for any new or worsening symptoms. Discharge Exam - Head Exam Head Exam: ATRAUMATIC, NORMAL INSPECTION, NORMOCEPHALIC - Eye Exam Eye Exam: EOMI, Normal appearance, PERRL. absent: Periorbital tenderness Pupil Exam: NORMAL ACCOMODATION, PERRL. absent: Irregular, Unequal - ENT Exam ENT Exam: Mucous Membranes Moist, Normal Oropharynx - Respiratory Exam Respiratory Exam: Decreased Breath Sounds, NORMAL BREATHING PATTERN, UNREMARKABLE - Cardiovascular Exam Cardiovascular Exam: REGULAR RHYTHM, +S1, +S2 - GI/Abdominal Exam GI & Abdominal Exam: Normal Bowel Sounds, Unremarkable. absent: Hypoactive Bowel Sounds - Back Exam Back exam: NORMAL INSPECTION. absent: CVA tenderness (L), CVA tenderness (R), paraspinal tenderness - Neurological Exam Neurological exam: Alert, CN II-XII Intact, Oriented x3 - Psychiatric Exam Psychiatric exam: Normal Affect, Normal Mood - Skin Skin Exam: Dry, Intact, Normal Color, Warm Discharge Plan - Discharge Medications Prescriptions: Albuterol HFA [Ventolin HFA 90 mcg/actuation (8 g)] 2 puff IH Q2 #1 inhaler Fluticasone/Salmeterol 250/50 [Advair Diskus] 1 puff IH Q12 #28 puff Montelukast [Singulair] 10 mg PO DAILY #14 tab Pantoprazole Sodium [Protonix] 40 mg PO DAILY #14 tablet. predniSONE [predniSONE Tab] 10 mg PO BID #4 tab predniSONE [predniSONE Tab] 20 mg PO BID #4 tab predniSONE [predniSONE Tab] 5 mg PO BID #4 tab - Follow Up Plan Condition: STABLE Disposition: HOME/ ROUTINE Additional Instructions: 1.Patient advised to follow up with PMD within one week of discharge. 2.Patient discharged on prednisone taper: Prednisone 20mg BID for 2 days, 10mg BID for 2 days, and 5mg BID for 2 days, Protonix, albuterol, and Advair. 3. Patient strongly advised to seek rehab program. Information for surrounding programs given to the patient. 4. Patient given numbers to warming centers and shelters upon discharge. 5.Patient advised to return to emergency department for any new or worsening symptoms. Referrals: Brad Golden MD [Primary Care Provider] - <Juli Louise - Last Filed: 03/08/17 16:21> Provider - Provider Date of Admission: 03/06/17 02:14 Attending physician: Juli Louise MD Primary care physician: Brad Golden MD Hospital Course - Lab Results Lab Results: Most Recent Lab Values WBC 14.4 10^3/ul (4.5-11.0) H 03/08/17 06:05 RBC 3.92 10^6/uL (3.5-6.1) 03/08/17 06:05 Hgb 12.6 g/dL (12.0-16.0) 03/08/17 06:05 Hct 39.2 % (36.0-48.0) 03/08/17 06:05 MCV 100.0 fl (80.0-105.0) 03/08/17 06:05 MCH 32.1 pg (25.0-35.0) 03/08/17 06:05 MCHC 32.1 g/dl (31.0-37.0) 03/08/17 06:05 RDW 14.5 % (11.5-14.5) 03/08/17 06:05 Plt Count 289 10^3/uL (120.0-450.0) 03/08/17 06:05 MPV 10.4 fl (7.0-11.0) 03/08/17 06:05 Gran % 73.5 % (50.0-68.0) H 03/08/17 06:05 Lymph % (Auto) 19.0 % (22.0-35.0) L 03/08/17 06:05 [place] % (Auto) 7.1 % (1.0-6.0) H 03/08/17 06:05 Eos % (Auto) 0.3 % (1.5-5.0) L 03/08/17 06:05 Baso % (Auto) 0.1 % (0.0-3.0) 03/08/17 06:05 Gran # 10.59 (1.4-6.5) H 03/08/17 06:05 Lymph # 2.8 (1.2-3.4) 03/08/17 06:05 [place] # 1.0 (0.1-0.6) H 03/08/17 06:05 Eos # 0.1 (0.0-0.7) 03/08/17 06:05 Baso # 0.02 K/mm3 (0.0-2.0) 03/08/17 06:05 Sodium 137 mmol/L (132-148) 03/08/17 06:05 Potassium 4.1 mmol/L (3.6-5.0) 03/08/17 06:05 Chloride 101 mmol/L (98-107) 03/08/17 06:05 Carbon Dioxide 34 mmol/L (21-33) H 03/08/17 06:05 Anion Gap 7 (10-20) L 03/08/17 06:05 BUN 15 mg/dL (7-21) 03/08/17 06:05 Creatinine 0.5 mg/dl (0.7-1.2) L 03/08/17 06:05 Est GFR ( Amer) > 60 03/08/17 06:05 Est GFR (Non-Af Amer) > 60 03/08/17 06:05 Random Glucose 86 mg/dL (70-110) 03/08/17 06:05 Calcium 8.5 mg/dL (8.4-10.5) 03/08/17 06:05 Total Bilirubin 0.5 mg/dL (0.2-1.3) 03/08/17 06:05 AST 27 U/L (14-36) 03/08/17 06:05 ALT 45 U/L (7-56) 03/08/17 06:05 Alkaline Phosphatase 52 U/L (38-126) 03/08/17 06:05 Total Protein 5.7 g/dL (5.8-8.3) L 03/08/17 06:05 Albumin 3.0 g/dL (3.0-4.8) 03/08/17 06:05 Globulin 2.7 gm/dL 03/08/17 06:05 Albumin/Globulin Ratio 1.1 (1.1-1.8) 03/08/17 06:05 Attending/Attestation - Attestation I have personally seen and examined this patient.: Yes I have fully participated in the care of the patient.: Yes I have reviewed all pertinent clinical information, including history, physical exam and plan: Yes Notes (Text): I have seen and examined the patient with the resident at bedside. Agree with the above note with the following additions/ exceptions: Briefly this is 46 year old female with history of COPD, alcohol abuse, known and untreated Hepatitis C, heroin abuse, active smoking, homelessness who was admitted for copd exacerbation. Patient feels much better today however still continues to have mild cough and some wheezing. Denies hallucinations, tremors, nausea, vomiting, abdominal pain or fever. Continue prednisone taper. Tobacco, alcohol and polysubstance cessation counselling provided. Prognosis is very poor secondary to continuous drug abuse and noncompliance with follow-up. Advised patient to go to half-way however she refused. Recommended to go to outpatient rehab. Meds to beds done. She is at high risk of readmission as she is homeless and continues to smoke. Upon discharge patient will follow up with Dr Chantel Salinas and editor school photograph of choice. Dr Juli Louise
[2017-03-08] MEDS ORDERED: Influenza Vaccine 60 mcg/0.5 mL SYR (4YR UP) IM ONE (12:02)
== END 2017-03-08 13:00 | disposition home or self-care (01) ==
LOC: ED 22:51 → ERH 03-06 02:14 → 5RNO 03-06 09:56
PROVIDERS: ADMIT Internal Medicine; ATTEND Hospitalist
DX: J44.1 Chronic obstructive pulmonary disease with (acute) exacerbation (principal); F10.239 Alcohol dependence with withdrawal, unspecified; F17.200 Nicotine dependence, unspecified, uncomplicated; I10 Essential (primary) hypertension; K42.9 Umbilical hernia without obstruction or gangrene; K74.60 Unspecified cirrhosis of liver; D72.829 Elevated white blood cell count, unspecified; T38.0X5A Adverse effect of glucocorticoids and synthetic analogues, initial encounter; Z83.3 Family history of diabetes mellitus; Z90.49 Acquired absence of other specified parts of digestive tract; Z91.19 Patient's noncompliance with other medical treatment and regimen
CPT/HCPCS: 36415; 71010; 80053; 85025; 85027; 94640; 96372; 96374; 96375; 96376; 99285; G0378; J1644; J2060; J2920; J2930; J3411; J7040

== ENCOUNTER 2017-03-12 14:17 | Inpatient (IN) | payer MEDICAID ==
[2017-03-12] MEDS ORDERED: Albuterol-Ipratrop 3 mg / 0.5 (3 ml) UD ONE (14:21)
[2017-03-12] MEDS ORDERED: Magnesium Sulfate 2 GM in Sodium Chloride 0.9% 100 ML IVPB ONE (15:15)
[2017-03-12] MEDS: Albuterol-Ipratrop 3 mg / 0.5 (3 ml) UD IH SCH ×3 (15:30→15:44)
[2017-03-12 15:39] LABS: BASO # 0.02 K/mm3 (0.0-2.0); BASO % 0.1 % (0.0-3.0); EOS # 0.1 (0.0-0.7); EOS % 0.8 % (1.5-5.0); GRAN # 10.21 (1.4-6.5); GRAN % 73.9 % (50.0-68.0); HEMATOCRIT 43.1 % (36.0-48.0); LYMPH % 14.3 % (22.0-35.0); MEAN CELL VOLUME 98.6 fl (80.0-105.0); MEAN CORPUSCULAR HGB CONC 33.4 g/dl (31.0-37.0); MEAN PLATELET VOLUME 10.4 fl (7.0-11.0); MONO # 1.5 (0.1-0.6); MONO % 10.9 % (1.0-6.0); RED CELL DISTRIBUTION WIDTH 14.7 % (11.5-14.5); WHITE BLOOD COUNT 13.8 10^3/ul (4.5-11.0)
[2017-03-12 16:00] LABS: TROPONIN I < 0.01 ng/mL
[2017-03-12 16:08] LABS: ALB/GLOB RATIO 1.2 (1.1-1.8); ALKALINE PHOSPHATASE 77 U/L (38-126); ALT/SGPT 69 U/L (7-56); AST/SGOT 51 U/L (14-36); BILIRUBIN,TOTAL 0.9 mg/dL (0.2-1.3); BLOOD UREA NITROGEN 6 mg/dL (7-21); CALCIUM 8.5 mg/dL (8.4-10.5); CARBON DIOXIDE 31 mmol/L (21-33); CHLORIDE 97 mmol/L (98-107); GFR AFRICAN-AMERICAN > 60; GLUCOSE,RANDOM 96 mg/dL (70-110); POTASSIUM 3.3 mmol/L (3.6-5.0); SODIUM 136 mmol/L (132-148); TOTAL PROTEIN 6.4 g/dL (5.8-8.3)
--- NOTE | 2017-03-12 17:07 | RAD ---
HISTORY: r/o infiltrate COMPARISON: 03/06/2017 FINDINGS: LUNGS: No active pulmonary disease. PLEURA: No significant pleural effusion identified, no pneumothorax apparent. CARDIOVASCULAR: Normal. OSSEOUS STRUCTURES: No significant abnormalities. VISUALIZED UPPER ABDOMEN: Normal. OTHER FINDINGS: None. IMPRESSION: No active disease.
--- NOTE | 2017-03-12 17:25 | ED PDOC ---
Arrival/HPI - General Chief Complaint: Shortness Of Breath Time Seen by Provider: 03/12/17 15:03 Historian: Patient - History of Present Illness Narrative History of Present Illness (Text): 03/12/17 15:08 A 46 year old female, whose past medical history includes asthma, COPD, Hepatitis C, alcohol abuse, IV and drug abuse, presents to the emergency department complaining of asthma symptoms. Patient going through withdrawal. Patient denies any fever, cough, chest pain, or any other complaints at this time. Also, patient mentions took Albuterol pump but had little relief. No PMD Past Medical History - Provider Review Nursing Documentation Reviewed: Yes - Infectious Disease Hx of Infectious Diseases: None - Tetanus Immunization Tetanus Immunization: Unknown - Cardiac Hx Cardiac Disorders: No Hx Hypertension: Yes Hx Peripheral Edema: Yes (ble +1) - Pulmonary Hx Asthma: Yes Hx Bronchitis: Yes Hx Chronic Obstructive Pulmonary Disease (COPD): Yes Hx Emphysema: Yes - Neurological Hx Neurological Disorder: No HX Cerebrovascular Accident: No - HEENT Hx HEENT Disorder: No - Renal Hx Renal Disorder: No - Endocrine/Metabolic Hx Hypothyroidism: Yes - Hematological/Oncological Hx Blood Disorders: Yes Hx Hepatitis C: Yes - Integumentary Hx Dermatological Disorder: Yes Other/Comment: multiple bruises left knee, swelling right knee and pain to both knees from fall 2 wks ago, multiple eccymotic arreas to left arm, small scab right arm, 2.5cm x 2cm deep red growth to rle "I have had it for years." surgical scar mid lower abd, eccymotic area to lower abd, umbilical hernia noted - Musculoskeletal/Rheumatological Hx Falls: Yes (fell 2 wks ago) - Gastrointestinal Hx Gastrointestinal Disorders: Yes Hx Pancreatitis: (pt denies pancreatitis) Other/Comment: Umbilical hernia /cirrhosis/ distended abd - Genitourinary/Gynecological Hx Genitourinary Disorders: No Hx Sexually Transmitted Diseases: (pt denies trichomonas) - Psychiatric Hx Psychophysiologic Disorder: Yes Hx Anxiety: Yes Hx Depression: Yes Hx Substance Use: Yes (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 absent: Cough Cardiovascular: absent: Chest Pain Physical Exam Vital Signs Reviewed: Yes Vital Signs Temp Pulse Resp BP Pulse Ox 03/12/17 17:47 121 H 22 129/52 L 100 03/12/17 16:45 121 H 22 138/95 H 100 03/12/17 14:34 18 95 03/12/17 14:17 100 F H 116 H 18 115/75 95 Temperature: Afebrile Blood Pressure: Normal Pulse: Tachycardic Respiratory Rate: Normal Appearance: Positive for: Other (disheveled) Pain Distress: None Mental Status: Positive for: Alert and Oriented X 3 - Systems Exam Head: Present: Atraumatic, Normocephalic Pupils: Present: PERRL Extroacular Muscles: Present: EOMI Conjunctiva: Present: Normal Mouth: Present: Moist Mucous Membranes Neck: Present: Normal Range of Motion Respiratory/Chest: Present: Wheezes (b/l exporatory wheezing) Cardiovascular: Present: Tachycardic Abdomen: Present: Normal Bowel Sounds. No: Tenderness, Distention Back: Present: Normal Inspection Upper Extremity: Present: Normal Inspection. No: Cyanosis, Edema Lower Extremity: Present: Normal Inspection. No: Edema Neurological: Present: GCS=15, CN II-XII Intact, Speech Normal Skin: Present: Warm, Dry, Normal Color. No: Rashes Psychiatric: Present: Alert, Oriented x 3, Normal Insight, Normal Concentration Medical Decision Making ED Course and Treatment: 03/12/17 15:13 Impression: 46 year old female with asthma symptoms. Physical exam shows patient appears disheveled; is tachycardic; and has poor sounds b/l expiratory wheezing; abdomen soft, nontender, normal bowel sounds, no distended. Plan: -- EKG -- Chest X-ray -- Labs -- Duoneb -- Magnesium Sulfate IV Fluids -- Medrol -- Blood Culture -- Serology -- Reassess and disposition Prior Visits: Notes and results from previous visits were reviewed. Patient was last seen in the emergency department on 03/05/2017 for shortness of breath and wheezing. Patient was admitted. Progress Notes: EKG: Ordered, reviewed, and independently interpreted the EKG. Rate : 118 BPM Rhythm : A-Flutter Interpretation : No ST-segment elevations or depressions, no T-wave inversions, normal intervals. Comparison : No previous EKG for comparison. 03/12/2017 17:05 Chest X-ray IMPRESSION: No active disease. Dictator: Joseluis Gordon MD - Lab Interpretations Lab Results: 03/12/17 14:50 03/12/17 14:50 Lab Results 03/12/17 15:30: Influenza Typ A,B (EIA) Negative for flu a/b 03/12/17 14:50: Sodium 136, Potassium 3.3 L, Chloride 97 L, Carbon Dioxide 31, Anion Gap 11, BUN 6 L, Creatinine 0.6 L, Est GFR ( Amer) > 60, Est GFR ( Non-Af Amer) > 60, Random Glucose 96, Calcium 8.5, Total Bilirubin 0.9, AST 51 H D, ALT 69 H, Alkaline Phosphatase 77, Lactate Dehydrogenase 596, Total Creatine Kinase 35, Troponin I < 0.01, NT-Pro-B Natriuret Pep 51.5, Total Protein 6.4, Albumin 3.5, Globulin 2.8, Albumin/Globulin Ratio 1.2 03/12/17 14:50: WBC 13.8 H, RBC 4.37, Hgb 14.4, Hct 43.1, MCV 98.6, MCH 33.0, MCHC 33.4, RDW 14.7 H, Plt Count 342, MPV 10.4, Gran % 73.9 H, Lymph % (Auto) 14.3 L, [place] % (Auto) 10.9 H, Eos % (Auto) 0.8 L, Baso % (Auto) 0.1, Gran # 10.21 H, Lymph # 2.0, [place] # 1.5 H, Eos # 0.1, Baso # 0.02 I have reviewed the lab results: Yes - RAD Interpretation Radiology Orders: 03/12/17 15:13 CHEST PORTABLE [RAD] Stat - Medication Orders Current Medication Orders: Arformoterol Tartrate (Brovana) 15 mcg IH [id number] JACK Budesonide (Pulmicort Respules) 0.5 mg IH [id number] [facility] Citalopram Hydrobromide (Celexa) 10 mg PO DAILY JACK Folic Acid (Folic Acid) 1 mg PO DAILY [facility] Heparin Sodium (Porcine) (Heparin) 5,000 units SC Q12 JACK PRN Reason: Protocol Multivitamins/Vitamin C 10 ml/Thiamine HCl 100 mg/ Folic Acid 1 mg/ Sodium Chloride 1,011.2 mls @ 100 mls/hr IV .[id number] ONE Stop: 03/13/17 04:26 Ipratropium [place] (Atrovent) 0.5 mg IH [id number] JACK Ipratropium [place] (Atrovent) 0.5 mg IH Q2H PRN PRN Reason: Shortness of Breath Levalbuterol HCl (Xopenex) 1.25 mg IH [id number] JACK Levalbuterol HCl (Xopenex) 1.25 mg IH Q2H PRN PRN Reason: Shortness of Breath Lorazepam (Ativan) 2 mg IVP Q6H JACK PRN Reason: Protocol Lorazepam (Ativan) 2 mg IVP Q3H PRN; Protocol PRN Reason: Symptoms of alcohol withdrawl Methylprednisolone (Solu-Medrol) 40 mg IVP Q12 [facility] Montelukast Sodium (Singulair) 10 mg PO DAILY [facility] Multivitamins (Thera Tab) 1 tab PO 0800 [facility] Nicotine (Nicoderm Cq) 1 patch TD DAILY [facility] Pantoprazole Sodium (Protonix Inj) 40 mg IVP DAILY [facility] Thiamine HCl (Vitamin B1 Tab) 100 mg PO DAILY JACK Trazodone HCl (Desyrel) 50 mg PO HS PRN PRN Reason: Insomnia Discontinued Medications Albuterol (Ventolin Hfa 90 Mcg/Actuation (8 G)) 2 puff IH Q2 JACK Albuterol/Ipratropium (Duoneb 3 Mg/0.5 Mg (3 Ml) Ud) 3 ml IH Q15M JACK Stop: 03/12/17 15:46 Last Admin: 03/12/17 15:44 Dose: 3 ml Magnesium Sulfate 2 gm/ Sodium (Chloride) 104 mls @ 102 mls/hr IVPB ONCE ONE Stop: 03/12/17 16:16 Last Admin: 03/12/17 15:53 Dose: 102 mls/hr eMAR Start Stop Document 03/12/17 15:53 SRE (Rec: 03/12/17 15:54 SRE [id number]) Intravenous Solution Start Date 03/12/17 Start Time 15:54 End Date 03/12/17 End time 16:55 Total Infusion Time 61 Lorazepam (Ativan) 2 mg IVP STAT STA PRN Reason: Protocol Stop: 03/12/17 17:26 Last Admin: 03/12/17 17:54 Dose: 2 mg IVP Administration Document 03/12/17 17:54 SRE (Rec: 03/12/17 17:55 SRE [id number]) Charges for Administration # of IVP Administrations 1 Methylprednisolone (Solu-Medrol) 125 mg IVP STAT STA Stop: 03/12/17 15:14 Last Admin: 03/12/17 15:44 Dose: 125 mg IVP Administration Document 03/12/17 15:44 SRE (Rec: 03/12/17 15:44 SRE [id number]) Charges for Administration # of IVP Administrations 1 Potassium Chloride (K-Dur 20 Meq Er Tab) 40 meq PO STAT STA Stop: 03/12/17 17:53 Last Admin: 03/12/17 18:15 Dose: 40 meq - Scribe Statement The provider has reviewed the documentation as recorded by the Jc Hood Provider Scribe Attestation: All medical record entries made by the Scribclive were at my direction and personally dictated by me. I have reviewed the chart and agree that the record accurately reflects my personal performance of the history, physical exam, medical decision making, and the department course for this patient. I have also personally directed, reviewed, and agree with the discharge instructions and disposition. Disposition/Present on Arrival - Present on Arrival Any Indicators Present on Arrival: No History of DVT/PE: No History of Uncontrolled Diabetes: No Urinary Catheter: No History of Decub. Ulcer: No History Surgical Site Infection Following: None - Disposition Have Diagnosis and Disposition been Completed?: Yes Diagnosis: Alcohol withdrawal, Asthma attack Disposition: HOSPITALIZED Disposition Time: 17:20 Condition: FAIR
[2017-03-12] MEDS ORDERED: Albuterol-Ipratrop 3 mg / 0.5 (3 ml) UD IH PRN (17:51)
[2017-03-12] MEDS ORDERED: Potassium Chloride 20 mEq ER Tab PO STA (17:52)
[2017-03-12] MEDS ORDERED: Albuterol HFA 90 mcg/actuation (8 g) IH SCH (18:00)
[2017-03-12] MEDS ORDERED: Multivitamin (MVI) 10 ML, Thiamine 100 MG, Folic Acid 1 MG in Sodium Chloride 0.9% 1,00... IV ONE (18:20)
[2017-03-12] MEDS ORDERED: Levalbuterol 1.25 MG/3 ML Inhal Soln UD IH PRN (18:23)
[2017-03-12] MEDS ORDERED: Ipratropium 0.02% Inhal Soln (0.5 mg/2.5 ml) UD IH PRN (18:23)
--- NOTE | 2017-03-12 18:31 | CP.PCM.HP ---
<EdgarAubrie - Last Filed: 03/12/17 18:31> History of Present Illness - History of Present Illness History of Present Illness: CC: Shortness of breath HPI: Patient is a 46F with PMH of COPD, asthma, alcohol/heroin abuse, and hepatitis C with cirrhosis who presents to the ED complaining of shortness of breath that started earlier this afternoon. Patient says she has COPD exacerbations that her home meds are not controlling which brings her to the ED. She was last here 1 week ago for the same thing. Patient says she is having some associated cough productive of yellow sputum, substernal non-radiating chest pain, and some mild generalized abdominal pain. Patient also admits to headache, dizziness, and blurry vision. She denies nausea, vomiting, diarrhea, constipation, and pain in her lower extremities. PMD: none Medical Hx: COPD, asthma (never been intubated), alcohol/heroin abuse, Hep C ( known and untreated), cirrhosis Medications: Albuterol, Advair, Singulair, Celexa Surgical Hx: Appendectomy, tonsillectomy Allergies: NKDA Social Hx: Smokes 1/2 pk/day for >30 years, drinks 5-6 cans of four frances daily ( 14% alcohol x 24 ounces), denies other heroin/cocaine or substance use; homeless Family Hx: DM (father) Present on Admission - Present on Admission Any Indicators Present on Admission: No Review of Systems - Review of Systems All systems: reviewed and no additional remarkable complaints except (as per HPI ) Past Patient History - Infectious Disease Hx of Infectious Diseases: None - Tetanus Immunizations Tetanus Immunization: Unknown - Past Medical History & Family History Past Medical History?: Yes - Past Social History Smoking Status: Heavy Smoker > 10 Cigarettes Daily - CARDIAC Hx Cardiac Disorders: No Hx Hypertension: Yes Hx Peripheral Edema: Yes (ble +1) - PULMONARY Hx Asthma: Yes Hx Bronchitis: Yes Hx Chronic Obstructive Pulmonary Disease (COPD): Yes Hx Emphysema: Yes - NEUROLOGICAL Hx Neurological Disorder: No HX Cerebrovascular Accident: No - HEENT Hx HEENT Problems: No - RENAL Hx Chronic Kidney Disease: No - ENDOCRINE/METABOLIC Hx Hypothyroidism: Yes - HEMATOLOGICAL/ONCOLOGICAL Hx Blood Disorders: Yes Hx Hepatitis C: Yes - INTEGUMENTARY Hx Dermatological Problems: Yes Other/Comment: multiple bruises left knee, swelling right knee and pain to both knees from fall 2 wks ago, multiple eccymotic arreas to left arm, small scab right arm, 2.5cm x 2cm deep red growth to rle "I have had it for years." surgical scar mid lower abd, eccymotic area to lower abd, umbilical hernia noted - MUSCULOSKELETAL/RHEUMATOLOGICAL Hx Falls: Yes (fell 2 wks ago) - GASTROINTESTINAL Hx Gastrointestinal Disorders: Yes Hx Pancreatitis: (pt denies pancreatitis) Other/Comment: Umbilical hernia /cirrhosis/ distended abd - GENITOURINARY/GYNECOLOGICAL Hx Genitourinary Disorders: No Hx Sexually Transmitted Disorders: (pt denies trichomonas) - PSYCHIATRIC Hx Psychophysiologic Disorder: Yes Hx Anxiety: Yes Hx Depression: Yes Hx Substance Use: Yes (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 - ANESTHESIA Hx Anesthesia: Yes Hx Anesthesia Reactions: No Hx Malignant Hyperthermia: No Meds Allergies/Adverse Reactions: Allergies Allergy/AdvReac Type Severity Reaction Status Date / Time No Known Allergies Allergy Verified 03/05/17 23:24 Physical Exam - Constitutional Appears: Non-toxic, No Acute Distress, Unkempt - Head Exam Head Exam: ATRAUMATIC, NORMOCEPHALIC - Eye Exam Eye Exam: EOMI, Normal appearance - ENT Exam ENT Exam: Mucous Membranes Moist - Respiratory Exam Respiratory Exam: Wheezes (expiratory ), NORMAL BREATHING PATTERN. absent: Accessory Muscle Use, Rales, Rhonchi, Respiratory Distress - Cardiovascular Exam Cardiovascular Exam: RRR, +S1, +S2. absent: Bradycardia, Diastolic murmur, Gallop, Rubs, Systolic Murmur - GI/Abdominal Exam GI & Abdominal Exam: Normal Bowel Sounds, Soft, Tenderness (generalized, mild). absent: Distended, Guarding, Mass, Rigid - Extremities Exam Extremities exam: Positive for: pedal edema (1+ pitting), pedal pulses present. Negative for: calf tenderness, tenderness - Back Exam Back exam: absent: rash noted - Neurological Exam Neurological exam: Alert - Psychiatric Exam Psychiatric exam: Normal Affect, Normal Mood - Skin Skin Exam: Dry, Intact, Normal Color, Warm Additional comments: large mole on left upper back Results - Vital Signs Recent Vital Signs: Last Vital Signs Temp 100 F H 03/12/17 14:17 Pulse 121 H 03/12/17 17:47 Resp 22 03/12/17 17:47 BP 129/52 L 03/12/17 17:47 Pulse Ox 100 03/12/17 17:47 - Labs Result Diagrams: 03/12/17 14:50 03/12/17 14:50 Assessment & Plan - Assessment and Plan (Free Text) Plan: 1. COPD Exacerbation * CXR: no active disease * Flu A/B: negative * Singulair 10 mg PO QD * Solu medrol 40 mg IV Q12 * Xopenex 1.25 mg Q6 CRAIG and 1.25 mg Q2 PRN * Atrovent 0.5 mg Q6 CRAIG and 0.5 mg Q2 PRN * Pulmicort 0.5 mg Q12 * Brovana 15 mcg Q12 * PT eval 2. Leukocytosis * likely secondary to chronic steroid use * monitor with morning labs * f/u procal * f/u blood cultures 3. Alcohol abuse * Ativan taper and PRN * Folic acid 1 mg PO QD * Banana bag * Thiamine 100 mg PO QD * Vitals Q4 * f/u UDS and alcohol level 4. Tobacco dependence * nicotine patch * counseled on smoking cessation 5. Hypokalemia * replaced 40 meq * monitor with morning labs 6. Transaminitis * secondary to hep C * monitor 7. History of depression * Continue home med: Celexa 10 mg PO QD 8. Prophylaxis * DVT - heparin * GI - protonix Seen, examined, and discussed with Dr. Walter Hernández, PGY1 <Karolina Watson - Last Filed: 03/13/17 23:45> Results - Vital Signs Recent Vital Signs: Last Vital Signs Temp 98.4 F 03/13/17 16:00 Pulse 91 H 03/13/17 18:00 Resp 24 03/13/17 16:00 BP 117/76 03/13/17 16:00 Pulse Ox 95 03/13/17 16:00 - Labs Result Diagrams: 03/13/17 06:30 03/13/17 06:30 Attending/Attestation - Attestation I have personally seen and examined this patient.: Yes I have fully participated in the care of the patient.: Yes I have reviewed all pertinent clinical information: Yes Notes (Text): 03/13/17 23:42 46 year old female with past medical history of chronic ETOH abuse, active smoker, COPD and hepatitis C who is admitted for COPD exacerbation and alcohol withdrawal. Continue with iv steroids and xopenex. Continue with banana bag and ativan craig/prn for withdrawal symptoms. She was counselled on alcohol abstinence and on smoking cessation. Will replete and repeat lytes (potassium) . Monitor LFTs closely, elevated secondary to chronic ETOH abuse and history of hepatitis C. Karolina Watson MD Hospitalist.
[2017-03-12] MEDS ORDERED: Budesonide 0.5 mg/2 ml Inhal Susp UD IH SCH (20:00)
[2017-03-12] MEDS ORDERED: Arformoterol 15 mcg/2 ml Inh Sol IH SCH (20:00)
[2017-03-12 21:11] VITALS: BMI 30.6
[2017-03-13] MEDS: Levalbuterol 1.25 MG/3 ML Inhal Soln UD IH SCH ×4 (01:44→20:19)
[2017-03-13] MEDS: Ipratropium 0.02% Inhal Soln (0.5 mg/2.5 ml) UD IH SCH ×4 (01:45→20:19)
[2017-03-13 06:51] LABS: BASO # 0.01 K/mm3 (0.0-2.0); BASO % 0.1 % (0.0-3.0); GRAN # 11.18 (1.4-6.5); GRAN % 85.9 % (50.0-68.0); HEMATOCRIT 39.4 % (36.0-48.0); LYMPH # 0.9 (1.2-3.4); LYMPH % 6.9 % (22.0-35.0); MEAN CELL VOLUME 98.7 fl (80.0-105.0); MEAN CORPUSCULAR HEMOGLOBIN 32.3 pg (25.0-35.0); MEAN CORPUSCULAR HGB CONC 32.7 g/dl (31.0-37.0); MEAN PLATELET VOLUME 9.9 fl (7.0-11.0); MONO # 0.9 (0.1-0.6); MONO % 7.1 % (1.0-6.0); RED CELL DISTRIBUTION WIDTH 14.7 % (11.5-14.5)
[2017-03-13 07:02] LABS: ALB/GLOB RATIO 1.2 (1.1-1.8); ALKALINE PHOSPHATASE 72 U/L (38-126); ALT/SGPT 71 U/L (7-56); AST/SGOT 28 U/L (14-36); BILIRUBIN,TOTAL 0.6 mg/dL (0.2-1.3); BLOOD UREA NITROGEN 8 mg/dL (7-21); CALCIUM 8.2 mg/dL (8.4-10.5); CARBON DIOXIDE 31 mmol/L (21-33); CHLORIDE 106 mmol/L (98-107); GFR AFRICAN-AMERICAN > 60; GLUCOSE,RANDOM 156 mg/dL (70-110); MAGNESIUM 2.2 mg/dL (1.7-2.2); PHOSPHOROUS 3.3 mg/dL (2.5-4.5); POTASSIUM 4.5 mmol/L (3.6-5.0); SODIUM 138 mmol/L (132-148); TOTAL PROTEIN 5.9 g/dL (5.8-8.3)
[2017-03-13] MEDS: Multivitamin Therapeutic Tab PO SCH (08:55)
--- NOTE | 2017-03-13 09:57 | CARD ---
APPROVED REPORT EKG Measurement Heart [id number] [id number] <Conclusion> S. Tachycardia Q in 3 No change
[2017-03-13] MEDS ORDERED: MethylPREDNISolone 40 mg Vial IVP SCH ×2 (10:00→22:00)
--- NOTE | 2017-03-13 11:53 | CP.PCM.PN ---
<Mrey Colon - Last Filed: 03/13/17 12:00> Subjective - Date & Time of Evaluation Date of Evaluation: 03/13/17 Time of Evaluation: 11:49 - Subjective Subjective: Mery Colon DO, PGY-1, Hospitalist Service Patient seen and examined at bedside. Patient reports continued cough and dyspnea. Patient denies chest pain, nausea, or vomiting. Nurse reports no events overnight. Objective - Vital Signs/Intake and Output Vital Signs (last 24 hours): Temp Pulse Resp BP Pulse Ox 97.8 F 100 H 20 167/99 H 97 03/13/17 08:49 03/13/17 08:49 03/13/17 08:49 03/13/17 08:49 03/13/17 08:49 Intake and Output: 03/13/17 03/13/17 06:59 18:59 Intake Total 1140 Output Total 0 Balance 1140 - Medications Medications: Current Medications Budesonide (Pulmicort Respules) 0.5 mg IH [id number] [facility] Chlordiazepoxide (Librium) 10 mg PO Q8H [facility] PRN Reason: Protocol Citalopram Hydrobromide (Celexa) 10 mg PO DAILY [facility] Last Admin: 03/13/17 09:55 Dose: 10 mg Folic Acid (Folic Acid) 1 mg PO DAILY [facility] Last Admin: 03/13/17 09:53 Dose: 1 mg Heparin Sodium (Porcine) (Heparin) 5,000 units SC Q12 [facility] PRN Reason: Protocol Last Admin: 03/13/17 09:53 Dose: 5,000 units Ipratropium [place] (Atrovent) 0.5 mg IH [id number] [facility] Last Admin: 03/13/17 07:31 Dose: Not Given Ipratropium [place] (Atrovent) 0.5 mg IH Q2H PRN PRN Reason: Shortness of Breath Last Admin: 03/13/17 05:28 Dose: 0.5 mg Levalbuterol HCl (Xopenex) 1.25 mg IH [id number] [facility] Last Admin: 03/13/17 07:31 Dose: Not Given Levalbuterol HCl (Xopenex) 1.25 mg IH Q2H PRN PRN Reason: Shortness of Breath Last Admin: 03/13/17 05:29 Dose: 1.25 mg Lorazepam (Ativan) 1 mg IVP Q4H PRN; Protocol PRN Reason: Symptoms of alcohol withdrawl Methylprednisolone (Solu-Medrol) 20 mg IVP Q12 [facility] Montelukast Sodium (Singulair) 10 mg PO DAILY [facility] Last Admin: 03/13/17 09:54 Dose: 10 mg Multivitamins (Thera Tab) 1 tab PO 0800 [facility] Last Admin: 03/13/17 08:55 Dose: 1 tab Nicotine (Nicoderm Cq) 1 patch TD DAILY [facility] Last Admin: 03/13/17 09:54 Dose: 1 patch Pantoprazole Sodium (Protonix Inj) 40 mg IVP DAILY [facility] Last Admin: 03/13/17 09:54 Dose: 40 mg Thiamine HCl (Vitamin B1 Tab) 100 mg PO DAILY [facility] Last Admin: 03/13/17 09:55 Dose: 100 mg Trazodone HCl (Desyrel) 50 mg PO HS PRN PRN Reason: Insomnia Last Admin: 03/12/17 22:28 Dose: 50 mg - Labs Labs: 03/13/17 06:30 03/13/17 06:30 - Constitutional Appears: Non-toxic, Unkempt, Older Than Stated Age - Head Exam Head Exam: ATRAUMATIC, NORMOCEPHALIC - Eye Exam Eye Exam: EOMI, Normal appearance, PERRL - ENT Exam ENT Exam: Mucous Membranes Moist, Normal Oropharynx - Neck Exam Neck Exam: Normal Inspection. absent: Thyromegaly - Respiratory Exam Respiratory Exam: absent: Accessory Muscle Use, Respiratory Distress Additional comments: coarse breath auscultated bilaterally - Cardiovascular Exam Cardiovascular Exam: RRR, +S1, +S2 - GI/Abdominal Exam GI & Abdominal Exam: Soft, Normal Bowel Sounds. absent: Tenderness, Rebound - Extremities Exam Extremities Exam: Normal Inspection. absent: Pedal Edema - Back Exam Back Exam: NORMAL INSPECTION. absent: CVA tenderness (L), CVA tenderness (R) - Neurological Exam Neurological Exam: Alert, Awake, CN II-XII Intact, Oriented x3 Neuro motor strength exam: Left Upper Extremity: 5, Right Upper Extremity: 5, Left Lower Extremity: 5, Right Lower Extremity: 5 Additional comments: no tremor with arms extended. - Psychiatric Exam Psychiatric exam: Normal Affect, Normal Mood - Skin Skin Exam: Dry, Intact, Normal Color, Warm Assessment and Plan - Assessment and Plan (Free Text) Assessment: 46 year old female with a past medical history of asthma, COPD, HCV, chronic alcohol use, and history of IVDU who presents with a symptoms of a COPD/asthma attack and concerns for alcohol withdrawal. Plan: 1) COPD Exacerbation * CXR: no active disease * Flu A/B: negative * Singulair 10 mg PO QD * Solu medrol 20 mg IV Q12 starting at 22:00 today * Xopenex 1.25 mg Q6 [facility] and 1.25 mg Q2 PRN * Atrovent 0.5 mg Q6 JACK and 0.5 mg Q2 PRN * Pulmicort 0.5 mg Q12 * Brovana discontinued given this is an acute exacerbation * PT evaluation 2. Leukocytosis * likely secondary to steroid use * monitor with morning labs 3. Alcohol abuse * Ativan 1 mg q4h PRN and Librium 10 mg q8h starting at 14:00 today * Folic acid 1 mg PO QD * Banana bag * Thiamine 100 mg PO QD * Vitals Q4 * UDS not collected * alcohol level was 65 at the time of admission 4. Tobacco dependence * nicotine patch * counseled on smoking cessation 5. Transaminitis * secondary to hep C * monitor 6. History of depression * Celexa 10 mg PO QD 7. Prophylaxis * DVT - heparin * GI - protonix <Junaid Rouse - Last Filed: 03/13/17 17:37> Objective - Vital Signs/Intake and Output Vital Signs (last 24 hours): Temp Pulse Resp BP Pulse Ox 97.8 F 100 H 20 167/99 H 97 03/13/17 08:49 03/13/17 08:49 03/13/17 08:49 03/13/17 08:49 03/13/17 08:49 Intake and Output: 03/13/17 03/13/17 06:59 18:59 Intake Total 1140 840 Output Total 0 Balance 1140 840 - Medications Medications: Current Medications Budesonide (Pulmicort Respules) 0.5 mg IH [id number] [id number] Chlordiazepoxide (Librium) 10 mg PO Q8H [facility] PRN Reason: Protocol Last Admin: 03/13/17 13:15 Dose: 10 mg Citalopram Hydrobromide (Celexa) 10 mg PO DAILY [facility] Last Admin: 03/13/17 09:55 Dose: 10 mg Folic Acid (Folic Acid) 1 mg PO DAILY [facility] Last Admin: 03/13/17 09:53 Dose: 1 mg Heparin Sodium (Porcine) (Heparin) 5,000 units SC Q12 [facility] PRN Reason: Protocol Last Admin: 03/13/17 09:53 Dose: 5,000 units Ipratropium [place] (Atrovent) 0.5 mg IH [id number] [facility] Last Admin: 03/13/17 13:59 Dose: 0.5 mg Ipratropium [place] (Atrovent) 0.5 mg IH Q2H PRN PRN Reason: Shortness of Breath Last Admin: 03/13/17 05:28 Dose: 0.5 mg Levalbuterol HCl (Xopenex) 1.25 mg IH [id number] [facility] Last Admin: 03/13/17 13:59 Dose: 1.25 mg Levalbuterol HCl (Xopenex) 1.25 mg IH Q2H PRN PRN Reason: Shortness of Breath Last Admin: 03/13/17 05:29 Dose: 1.25 mg Lorazepam (Ativan) 1 mg IVP Q4H PRN; Protocol PRN Reason: Symptoms of alcohol withdrawl Methylprednisolone (Solu-Medrol) 20 mg IVP Q12 [facility] Montelukast Sodium (Singulair) 10 mg PO DAILY [facility] Last Admin: 03/13/17 09:54 Dose: 10 mg Multivitamins (Thera Tab) 1 tab PO 0800 [facility] Last Admin: 03/13/17 08:55 Dose: 1 tab Nicotine (Nicoderm Cq) 1 patch TD DAILY [facility] Last Admin: 03/13/17 09:54 Dose: 1 patch Pantoprazole Sodium (Protonix Ec Tab) 40 mg PO DAILY [facility] Thiamine HCl (Vitamin B1 Tab) 100 mg PO DAILY [facility] Last Admin: 03/13/17 09:55 Dose: 100 mg Trazodone HCl (Desyrel) 50 mg PO HS PRN PRN Reason: Insomnia Last Admin: 03/12/17 22:28 Dose: 50 mg - Labs Labs: 03/13/17 06:30 03/13/17 06:30 Attending/Attestation - Attestation I have personally seen and examined this patient.: Yes I have fully participated in the care of the patient.: Yes I have reviewed all pertinent clinical information, including history, physical exam and plan: Yes Notes (Text): 03/13/17 17:34 Attending note; Patient seen and examined with resident. Patient is a 46 year old female with history of COPD, alcohol abuse, known and untreated Hepatitis C, heroin abuse, active smoking, homelessness who was admitted for copd exacerbation. Patient feels slightly better today however still continues to cough and has wheezing. Continue Xopenex and IV solumedrol. Alcohol abuse; continue IV Ativan when necessary .complete alcohol cessation is strongly advised . Active smoking ; smoking cessation is strongly advised .on NicoDerm patch . Prognosis is very poor secondary to continuous drug abuse and noncompliance with follow-up. Upon discharge patient will follow up with Dr Chantel Salinas and dolphin researcher of choice.
[2017-03-13] MEDS ORDERED: Budesonide 0.5 mg/2 ml Inhal Susp UD IH SCH (20:00)
[2017-03-14] MEDS: Levalbuterol 1.25 MG/3 ML Inhal Soln UD IH SCH ×2 (01:25→07:53)
[2017-03-14] MEDS: Ipratropium 0.02% Inhal Soln (0.5 mg/2.5 ml) UD IH SCH ×2 (01:31→07:53)
[2017-03-14 06:26] LABS: BASO # 0.02 K/mm3 (0.0-2.0); BASO % 0.1 % (0.0-3.0); GRAN # 15.64 (1.4-6.5); GRAN % 89.7 % (50.0-68.0); HEMATOCRIT 40.9 % (36.0-48.0); LYMPH % 5.7 % (22.0-35.0); MEAN CELL VOLUME 101.7 fl (80.0-105.0); MEAN CORPUSCULAR HEMOGLOBIN 32.3 pg (25.0-35.0); MEAN CORPUSCULAR HGB CONC 31.8 g/dl (31.0-37.0); MEAN PLATELET VOLUME 10.2 fl (7.0-11.0); MONO # 0.8 (0.1-0.6); MONO % 4.5 % (1.0-6.0); WHITE BLOOD COUNT 17.5 10^3/ul (4.5-11.0)
[2017-03-14 07:35] LABS: ALB/GLOB RATIO 1.2 (1.1-1.8); ALKALINE PHOSPHATASE 65 U/L (38-126); ALT/SGPT 64 U/L (7-56); AST/SGOT 34 U/L (14-36); BILIRUBIN,TOTAL 0.5 mg/dL (0.2-1.3); BLOOD UREA NITROGEN 12 mg/dL (7-21); CALCIUM 8.9 mg/dL (8.4-10.5); CARBON DIOXIDE 35 mmol/L (21-33); CHLORIDE 103 mmol/L (98-107); GFR AFRICAN-AMERICAN > 60; GLUCOSE,RANDOM 155 mg/dL (70-110); MAGNESIUM 2.2 mg/dL (1.7-2.2); SODIUM 141 mmol/L (132-148); TOTAL PROTEIN 6.3 g/dL (5.8-8.3)
[2017-03-14] MEDS: Albuterol-Ipratrop 3 mg / 0.5 (3 ml) UD IH SCH ×4 (11:04→23:13)
[2017-03-14] MEDS: MethylPREDNISolone 40 mg Vial IVP SCH ×2 (12:00→19:29)
[2017-03-14] MEDS: Multivitamin Therapeutic Tab PO SCH (12:00)
[2017-03-14] MEDS: Pantoprazole 40 mg EC Tab PO SCH (12:00)
[2017-03-14] MEDS: guaiFENesin DM 200 mg-20 mg/10 ml UD PO SCH ×4 (12:01→21:37)
--- NOTE | 2017-03-14 12:26 | CP.PCM.PN ---
<Mery Colon - Last Filed: 03/14/17 12:52> Subjective - Date & Time of Evaluation Date of Evaluation: 03/14/17 Time of Evaluation: 12:25 - Subjective Subjective: Mery Colon DO, PGY-1, Hospitalist Service Patient seen and examined at bedside. Patient reports increase in sputum production and multiple nocturnal awakenings. Denies any seizure activity or tremulousness. Objective - Vital Signs/Intake and Output Vital Signs (last 24 hours): Temp Pulse Resp BP Pulse Ox 97.9 F 102 H 21 148/97 H 93 L 03/14/17 08:22 03/14/17 08:22 03/14/17 08:22 03/14/17 08:22 03/14/17 08:22 Intake and Output: 03/14/17 03/14/17 06:59 18:59 Intake Total 860 Balance 860 - Medications Medications: Current Medications Albuterol/Ipratropium (Duoneb 3 Mg/0.5 Mg (3 Ml) Ud) 3 ml IH [id number] [facility] Last Admin: 03/14/17 11:04 Dose: 3 ml Budesonide (Pulmicort Respules) 0.5 mg IH [id number] [facility] Citalopram Hydrobromide (Celexa) 10 mg PO DAILY [facility] Last Admin: 03/14/17 11:58 Dose: 10 mg Folic Acid (Folic Acid) 1 mg PO DAILY [facility] Last Admin: 03/14/17 11:58 Dose: 1 mg Guaifenesin/Dextromethorphan (Robitussin Dm) 10 ml PO Q4H [facility] Last Admin: 03/14/17 12:01 Dose: 10 ml Heparin Sodium (Porcine) (Heparin) 5,000 units SC Q12 [facility] PRN Reason: Protocol Last Admin: 03/14/17 11:58 Dose: 5,000 units Lorazepam (Ativan) 1 mg IVP Q4H PRN; Protocol PRN Reason: Symptoms of alcohol withdrawl Methylprednisolone (Solu-Medrol) 30 mg IVP Q8H [facility] Last Admin: 03/14/17 12:00 Dose: 30 mg Montelukast Sodium (Singulair) 10 mg PO DAILY [facility] Last Admin: 03/14/17 12:00 Dose: 10 mg Multivitamins (Thera Tab) 1 tab PO 0800 [facility] Last Admin: 03/14/17 12:00 Dose: 1 tab Nicotine (Nicoderm Cq) 1 patch TD DAILY [facility] Last Admin: 03/14/17 11:58 Dose: 1 patch Pantoprazole Sodium (Protonix Ec Tab) 40 mg PO DAILY [facility] Last Admin: 03/14/17 12:00 Dose: 40 mg Prednisone (Prednisone Tab) 50 mg PO DAILY [facility] Thiamine HCl (Vitamin B1 Tab) 100 mg PO DAILY [facility] Last Admin: 03/14/17 12:00 Dose: 100 mg Trazodone HCl (Desyrel) 50 mg PO HS PRN PRN Reason: Insomnia Last Admin: 03/13/17 21:09 Dose: 50 mg - Labs Labs: 03/14/17 05:20 03/14/17 05:20 - Constitutional Appears: Non-toxic, Older Than Stated Age - Head Exam Head Exam: ATRAUMATIC, NORMOCEPHALIC - Eye Exam Eye Exam: EOMI, Normal appearance Pupil Exam: NORMAL ACCOMODATION - ENT Exam ENT Exam: Mucous Membranes Moist, Normal Oropharynx - Respiratory Exam Respiratory Exam: Wheezes - Cardiovascular Exam Cardiovascular Exam: RRR, +S1, +S2 - GI/Abdominal Exam GI & Abdominal Exam: Soft, Normal Bowel Sounds - Extremities Exam Extremities Exam: Normal Inspection - Back Exam Back Exam: NORMAL INSPECTION. absent: CVA tenderness (L), CVA tenderness (R) - Neurological Exam Neurological Exam: Alert, Awake, CN II-XII Intact, Oriented x3 - Psychiatric Exam Psychiatric exam: Normal Affect, Normal Mood - Skin Skin Exam: Dry, Intact, Normal Color, Warm Assessment and Plan - Assessment and Plan (Free Text) Assessment: - Assessment and Plan (Free Text) Assessment: 46 year old female with a past medical history of asthma, COPD, HCV, chronic alcohol use, and history of IVDU who presents with a symptoms of a COPD/asthma attack and concerns for alcohol withdrawal. Plan: Plan: 1) COPD Exacerbation * CXR: no active disease * Flu A/B: negative * Singulair 10 mg PO QD * Solumedrol 20 mg IV Q12 starting at 22:00 today * Duonebulized treatment q4h [facility] * Robitussin q4h [facility] * Pulmicort 0.5 mg Q12 * PT evaluation 2. Leukocytosis * likely secondary to steroid use * monitor with morning labs 3. Alcohol abuse * Ativan 1 mg q4h PRN * Folic acid 1 mg PO QD * Banana bag * Thiamine 100 mg PO QD * Vitals Q4 * UDS not collected * alcohol level was 65 at the time of admission 4. Tobacco dependence * nicotine patch * counseled on smoking cessation 5. Transaminitis * secondary to hep C * monitor 6. History of depression * Celexa 10 mg PO QD 7. Prophylaxis * DVT - heparin * GI - protonix <Rangasamy,Ajantha - Last Filed: 03/14/17 16:15> Objective - Vital Signs/Intake and Output Vital Signs (last 24 hours): Temp Pulse Resp BP Pulse Ox 98.9 F 110 H 22 133/91 H 95 03/14/17 15:56 03/14/17 15:56 03/14/17 15:56 03/14/17 15:56 03/14/17 15:56 Intake and Output: 03/14/17 03/14/17 06:59 18:59 Intake Total 860 840 Balance 860 840 - Medications Medications: Current Medications Albuterol/Ipratropium (Duoneb 3 Mg/0.5 Mg (3 Ml) Ud) 3 ml IH [id number] [facility] Last Admin: 03/14/17 15:39 Dose: 3 ml Budesonide (Pulmicort Respules) 0.5 mg IH [id number] [facility] Citalopram Hydrobromide (Celexa) 10 mg PO DAILY [facility] Last Admin: 03/14/17 11:58 Dose: 10 mg Folic Acid (Folic Acid) 1 mg PO DAILY [facility] Last Admin: 03/14/17 11:58 Dose: 1 mg Guaifenesin/Dextromethorphan (Robitussin Dm) 10 ml PO Q4H [facility] Last Admin: 03/14/17 12:01 Dose: 10 ml Heparin Sodium (Porcine) (Heparin) 5,000 units SC Q12 [facility] PRN Reason: Protocol Last Admin: 03/14/17 11:58 Dose: 5,000 units Lorazepam (Ativan) 1 mg IVP Q4H PRN; Protocol PRN Reason: Symptoms of alcohol withdrawl Last Admin: 03/14/17 12:27 Dose: 1 mg Methylprednisolone (Solu-Medrol) 30 mg IVP Q8H [facility] Last Admin: 03/14/17 12:00 Dose: 30 mg Montelukast Sodium (Singulair) 10 mg PO DAILY [facility] Last Admin: 03/14/17 12:00 Dose: 10 mg Multivitamins (Thera Tab) 1 tab PO 0800 [facility] Last Admin: 03/14/17 12:00 Dose: 1 tab Nicotine (Nicoderm Cq) 1 patch TD DAILY [facility] Last Admin: 03/14/17 11:58 Dose: 1 patch Pantoprazole Sodium (Protonix Ec Tab) 40 mg PO DAILY [facility] Last Admin: 03/14/17 12:00 Dose: 40 mg Prednisone (Prednisone Tab) 50 mg PO DAILY [facility] Thiamine HCl (Vitamin B1 Tab) 100 mg PO DAILY [facility] Last Admin: 03/14/17 12:00 Dose: 100 mg Trazodone HCl (Desyrel) 50 mg PO HS PRN PRN Reason: Insomnia Last Admin: 03/13/17 21:09 Dose: 50 mg - Labs Labs: 03/14/17 05:20 03/14/17 05:20 Attending/Attestation - Attestation I have personally seen and examined this patient.: Yes I have fully participated in the care of the patient.: Yes I have reviewed all pertinent clinical information, including history, physical exam and plan: Yes Notes (Text): 03/14/17 16:14 Attending note; Patient seen and examined with resident. Patient is a 46 year old female with history of COPD, alcohol abuse, known and untreated Hepatitis C, heroin abuse, active smoking, homelessness who was admitted for copd exacerbation. continue oxygen when necessary. Slowly improving respiratory status. Patient feels slightly better today however still continues to cough and has wheezing. Continue Xopenex and IV solumedrol. poor IV access; new IV line placed. Alcohol abuse; continue IV Ativan when necessary .complete alcohol cessation is strongly advised . Active smoking ; smoking cessation is strongly advised .on NicoDerm patch . Prognosis is very poor secondary to continuous drug abuse and noncompliance with follow-up. Upon discharge patient will follow up with Dr. Chantel Salinas and cotton picker operator of choice.
[2017-03-15] MEDS: guaiFENesin DM 200 mg-20 mg/10 ml UD PO SCH ×6 (01:52→22:52)
[2017-03-15] MEDS: MethylPREDNISolone 40 mg Vial IVP SCH ×3 (01:53→17:39)
[2017-03-15] MEDS: Albuterol-Ipratrop 3 mg / 0.5 (3 ml) UD IH SCH ×6 (04:40→23:20)
[2017-03-15 06:41] LABS: BASO # 0.02 K/mm3 (0.0-2.0); BASO % 0.1 % (0.0-3.0); GRAN # 12.32 (1.4-6.5); GRAN % 87.3 % (50.0-68.0); LYMPH # 0.9 (1.2-3.4); LYMPH % 6.4 % (22.0-35.0); MEAN CELL VOLUME 101.2 fl (80.0-105.0); MEAN CORPUSCULAR HEMOGLOBIN 32.1 pg (25.0-35.0); MEAN CORPUSCULAR HGB CONC 31.7 g/dl (31.0-37.0); MEAN PLATELET VOLUME 10.4 fl (7.0-11.0); MONO # 0.9 (0.1-0.6); MONO % 6.2 % (1.0-6.0); RED CELL DISTRIBUTION WIDTH 15.2 % (11.5-14.5); WHITE BLOOD COUNT 14.1 10^3/ul (4.5-11.0)
[2017-03-15 07:26] LABS: ALB/GLOB RATIO 1.2 (1.1-1.8); ALKALINE PHOSPHATASE 66 U/L (38-126); ALT/SGPT 54 U/L (7-56); AST/SGOT 35 U/L (14-36); BILIRUBIN,TOTAL 0.6 mg/dL (0.2-1.3); BLOOD UREA NITROGEN 13 mg/dL (7-21); CALCIUM 8.9 mg/dL (8.4-10.5); CARBON DIOXIDE 33 mmol/L (21-33); CHLORIDE 100 mmol/L (98-107); GFR AFRICAN-AMERICAN > 60; GLUCOSE,RANDOM 148 mg/dL (70-110); MAGNESIUM 2.1 mg/dL (1.7-2.2); PHOSPHOROUS 4.3 mg/dL (2.5-4.5); POTASSIUM 4.7 mmol/L (3.6-5.0); SODIUM 139 mmol/L (132-148); TOTAL PROTEIN 6.4 g/dL (5.8-8.3)
--- NOTE | 2017-03-15 08:05 | CP.PCM.PN ---
<Mery Colon - Last Filed: 03/15/17 09:30> Subjective - Date & Time of Evaluation Date of Evaluation: 03/15/17 Time of Evaluation: 08:02 - Subjective Subjective: Mery Colon DO, PGY-1 , Hospitalist Service Patient seen and examined at bedside. Patient reports 2 nocturnal awakenings. Reports improvement in breathing and increase in expectoration since being given Robitussin. Patient denies CP, N/V/D. Objective - Vital Signs/Intake and Output Vital Signs (last 24 hours): Temp Pulse Resp BP Pulse Ox 98.9 F 92 H 22 133/91 H 95 03/14/17 15:56 03/15/17 05:05 03/14/17 15:56 03/14/17 15:56 03/14/17 15:56 Intake and Output: 03/15/17 03/15/17 06:59 18:59 Intake Total 640 Balance 640 - Medications Medications: Current Medications Albuterol/Ipratropium (Duoneb 3 Mg/0.5 Mg (3 Ml) Ud) 3 ml IH [id number] [facility] Last Admin: 03/15/17 07:32 Dose: 3 ml Budesonide (Pulmicort Respules) 0.5 mg IH [id number] [facility] Citalopram Hydrobromide (Celexa) 10 mg PO DAILY [facility] Last Admin: 03/14/17 11:58 Dose: 10 mg Folic Acid (Folic Acid) 1 mg PO DAILY [facility] Last Admin: 03/14/17 11:58 Dose: 1 mg Guaifenesin/Dextromethorphan (Robitussin Dm) 10 ml PO Q4H [facility] Last Admin: 03/15/17 06:16 Dose: 10 ml Heparin Sodium (Porcine) (Heparin) 5,000 units SC Q12 [facility] PRN Reason: Protocol Last Admin: 03/14/17 21:31 Dose: 5,000 units Lorazepam (Ativan) 1 mg IVP Q4H PRN; Protocol PRN Reason: Symptoms of alcohol withdrawl Last Admin: 03/14/17 12:27 Dose: 1 mg Methylprednisolone (Solu-Medrol) 30 mg IVP Q8H [facility] Last Admin: 03/15/17 01:53 Dose: 30 mg Montelukast Sodium (Singulair) 10 mg PO DAILY [facility] Last Admin: 03/14/17 12:00 Dose: 10 mg Multivitamins (Thera Tab) 1 tab PO 0800 [facility] Last Admin: 03/14/17 12:00 Dose: 1 tab Nicotine (Nicoderm Cq) 1 patch TD DAILY [facility] Last Admin: 03/14/17 11:58 Dose: 1 patch Pantoprazole Sodium (Protonix Ec Tab) 40 mg PO DAILY [facility] Last Admin: 03/14/17 12:00 Dose: 40 mg Thiamine HCl (Vitamin B1 Tab) 100 mg PO DAILY [facility] Last Admin: 03/14/17 12:00 Dose: 100 mg Trazodone HCl (Desyrel) 50 mg PO HS PRN PRN Reason: Insomnia Last Admin: 03/14/17 22:18 Dose: 50 mg - Labs Labs: 03/15/17 06:00 03/15/17 06:00 - Constitutional Appears: Non-toxic, No Acute Distress, Unkempt, Older Than Stated Age - Head Exam Head Exam: ATRAUMATIC, NORMOCEPHALIC - Eye Exam Eye Exam: EOMI, Normal appearance - ENT Exam ENT Exam: Mucous Membranes Moist, Normal Oropharynx - Neck Exam Neck Exam: Normal Inspection Additional comments: hypertrophy of strap muscle - Respiratory Exam Respiratory Exam: Wheezes (diffuse) Additional comments: coarse breath sounds - Cardiovascular Exam Cardiovascular Exam: RRR, +S1, +S2 - GI/Abdominal Exam GI & Abdominal Exam: Soft, Normal Bowel Sounds - Extremities Exam Extremities Exam: Normal Capillary Refill, Normal Inspection. absent: Calf Tenderness, Pedal Edema - Back Exam Back Exam: NORMAL INSPECTION. absent: CVA tenderness (L), CVA tenderness (R) - Neurological Exam Neurological Exam: Alert, Awake, Normal Gait, Oriented x3 - Psychiatric Exam Psychiatric exam: Normal Affect, Normal Mood - Skin Skin Exam: Dry, Intact, Normal Color, Warm Assessment and Plan - Assessment and Plan (Free Text) Assessment: 46 year old female with a past medical history of asthma, COPD, HCV, chronic alcohol use, and history of IVDU who presents with a symptoms of a COPD/asthma attack and concerns for alcohol withdrawal. Plan: 1) Asthma attack * CXR: no active disease * Flu A/B: negative * Singulair 10 mg PO QD * Solumedrol 20/30 mg IV Q8h * Duonebulized treatment q4h [facility] * Robitussin q4h [facility] * Pulmicort 0.5 mg Q12 * PT evaluation 2. Leukocytosis * likely secondary to steroid use * monitor with morning labs 3. Alcohol abuse * Ativan 1 mg q4h PRN * Folic acid 1 mg PO QD * Banana bag * Thiamine 100 mg PO QD * Vitals Q4 * UDS not collected * alcohol level was 65 at the time of admission 4. Tobacco dependence * nicotine patch * counseled on smoking cessation 5. Transaminitis: resolved 6. History of depression * Celexa 10 mg PO QD 7. Prophylaxis * DVT - heparin * GI - protonix <Rangasamy,Ajantha - Last Filed: 03/15/17 14:59> Objective - Vital Signs/Intake and Output Vital Signs (last 24 hours): Temp Pulse Resp BP Pulse Ox 98.2 F 117 H 24 149/86 93 L 03/15/17 08:11 03/15/17 10:00 03/15/17 08:11 03/15/17 08:11 03/15/17 08:11 Intake and Output: 03/15/17 03/15/17 06:59 18:59 Intake Total 640 Balance 640 - Medications Medications: Current Medications Albuterol/Ipratropium (Duoneb 3 Mg/0.5 Mg (3 Ml) Ud) 3 ml IH [id number] [facility] Last Admin: 03/15/17 11:13 Dose: 3 ml Budesonide (Pulmicort Respules) 0.5 mg IH [id number] [facility] Citalopram Hydrobromide (Celexa) 10 mg PO DAILY [facility] Last Admin: 03/15/17 10:04 Dose: 10 mg Folic Acid (Folic Acid) 1 mg PO DAILY [facility] Last Admin: 03/15/17 10:04 Dose: 1 mg Guaifenesin/Dextromethorphan (Robitussin Dm) 10 ml PO Q4H [facility] Last Admin: 03/15/17 13:31 Dose: 10 ml Heparin Sodium (Porcine) (Heparin) 5,000 units SC Q12 [facility] PRN Reason: Protocol Last Admin: 03/15/17 10:04 Dose: 5,000 units Lorazepam (Ativan) 1 mg IVP Q4H PRN; Protocol PRN Reason: Symptoms of alcohol withdrawl Last Admin: 03/15/17 13:31 Dose: 1 mg Methylprednisolone (Solu-Medrol) 30 mg IVP Q8H [facility] Last Admin: 03/15/17 10:09 Dose: 30 mg Montelukast Sodium (Singulair) 10 mg PO DAILY [facility] Last Admin: 03/15/17 10:05 Dose: 10 mg Multivitamins (Thera Tab) 1 tab PO 0800 [facility] Last Admin: 03/15/17 10:05 Dose: 1 tab Nicotine (Nicoderm Cq) 1 patch TD DAILY [facility] Last Admin: 03/15/17 10:05 Dose: 1 patch Pantoprazole Sodium (Protonix Ec Tab) 40 mg PO DAILY [facility] Last Admin: 03/15/17 10:04 Dose: 40 mg Thiamine HCl (Vitamin B1 Tab) 100 mg PO DAILY [facility] Last Admin: 03/15/17 10:05 Dose: 100 mg Trazodone HCl (Desyrel) 50 mg PO HS PRN PRN Reason: Insomnia Last Admin: 03/14/17 22:18 Dose: 50 mg - Labs Labs: 03/15/17 06:00 03/15/17 06:00 Attending/Attestation - Attestation I have personally seen and examined this patient.: Yes I have fully participated in the care of the patient.: Yes I have reviewed all pertinent clinical information, including history, physical exam and plan: Yes Notes (Text): 03/15/17 14:56 Attending note; Patient seen and examined with resident. Patient is a 46 year old female with history of COPD, alcohol abuse, known and untreated Hepatitis C, heroin abuse, active smoking, homelessness who was admitted for copd exacerbation. continue oxygen when necessary. Slowly improving respiratory status. Patient feels slightly better today however still continues to cough and has wheezing. Continue Xopenex and IV solumedrol. still with tachycardia on exertion. PT evaluation appreciated. Alcohol abuse; continue IV Ativan when necessary . Started on Librium. complete alcohol cessation is strongly advised . Active smoking ; smoking cessation is strongly advised .on NicoDerm patch . Prognosis is very poor secondary to continuous drug abuse and noncompliance with follow-up. Upon discharge patient will follow up with Dr. Chantel Salinas. 03/15/17 14:58
[2017-03-15] MEDS: Pantoprazole 40 mg EC Tab PO SCH (10:04)
[2017-03-15] MEDS: Multivitamin Therapeutic Tab PO SCH (10:05)
[2017-03-16] MEDS: guaiFENesin DM 200 mg-20 mg/10 ml UD PO SCH ×3 (02:30→11:56)
[2017-03-16] MEDS: MethylPREDNISolone 40 mg Vial IVP SCH ×3 (02:45→18:00)
[2017-03-16] MEDS: Albuterol-Ipratrop 3 mg / 0.5 (3 ml) UD IH SCH ×6 (04:43→23:41)
[2017-03-16 06:26] LABS: BASO # 0.04 K/mm3 (0.0-2.0); BASO % 0.3 % (0.0-3.0); EOS % 0.1 % (1.5-5.0); GRAN # 12.27 (1.4-6.5); GRAN % 79.4 % (50.0-68.0); HEMATOCRIT 40.9 % (36.0-48.0); LYMPH # 1.6 (1.2-3.4); LYMPH % 10.5 % (22.0-35.0); MEAN CELL VOLUME 100.7 fl (80.0-105.0); MEAN CORPUSCULAR HEMOGLOBIN 32.5 pg (25.0-35.0); MEAN CORPUSCULAR HGB CONC 32.3 g/dl (31.0-37.0); MEAN PLATELET VOLUME 10.2 fl (7.0-11.0); MONO # 1.5 (0.1-0.6); MONO % 9.7 % (1.0-6.0); WHITE BLOOD COUNT 15.4 10^3/ul (4.5-11.0)
[2017-03-16 07:17] LABS: ALB/GLOB RATIO 1.2 (1.1-1.8); ALKALINE PHOSPHATASE 63 U/L (38-126); ALT/SGPT 59 U/L (7-56); AST/SGOT 37 U/L (14-36); BILIRUBIN,TOTAL 0.6 mg/dL (0.2-1.3); BLOOD UREA NITROGEN 17 mg/dL (7-21); CALCIUM 9.3 mg/dL (8.4-10.5); CARBON DIOXIDE 35 mmol/L (21-33); CHLORIDE 99 mmol/L (98-107); GFR AFRICAN-AMERICAN > 60; GLUCOSE,RANDOM 127 mg/dL (70-110); POTASSIUM 4.4 mmol/L (3.6-5.0); SODIUM 139 mmol/L (132-148); TOTAL PROTEIN 6.3 g/dL (5.8-8.3)
[2017-03-16] MEDS: Multivitamin Therapeutic Tab PO SCH (10:22)
[2017-03-16] MEDS: Pantoprazole 40 mg EC Tab PO SCH (10:22)
--- NOTE | 2017-03-16 11:59 | CP.PCM.PN ---
<Mery Colon - Last Filed: 03/16/17 12:56> Subjective - Date & Time of Evaluation Date of Evaluation: 03/16/17 Time of Evaluation: 11:56 - Subjective Subjective: Mery Colon DO, PGY-1, Hospitalist Service Patient seen and examined at bedside. Patient reports no nocturnal awakenings, shakes, tremors, sweats, or visual disturbances. Patient admits to a non- productive cough and dyspnea. Objective - Vital Signs/Intake and Output Vital Signs (last 24 hours): Temp Pulse Resp BP Pulse Ox 97.8 F 80 18 143/88 97 03/16/17 07:59 03/16/17 10:00 03/16/17 07:59 03/16/17 07:59 03/16/17 07:59 Intake and Output: 03/16/17 03/16/17 06:59 18:59 Intake Total 960 Balance 960 - Medications Medications: Current Medications Albuterol/Ipratropium (Duoneb 3 Mg/0.5 Mg (3 Ml) Ud) 3 ml IH [id number] [facility] Last Admin: 03/16/17 11:11 Dose: 3 ml Budesonide (Pulmicort Respules) 0.5 mg IH [id number] [facility] Chlordiazepoxide (Librium) 10 mg PO Q8H PRN; Protocol PRN Reason: Symptoms of alcohol withdrawl Last Admin: 03/15/17 15:24 Dose: 10 mg Citalopram Hydrobromide (Celexa) 10 mg PO DAILY [facility] Last Admin: 03/16/17 10:22 Dose: 10 mg Folic Acid (Folic Acid) 1 mg PO DAILY [facility] Last Admin: 03/16/17 10:22 Dose: 1 mg Guaifenesin/Dextromethorphan (Robitussin Dm) 10 ml PO Q4H [facility] Last Admin: 03/16/17 06:14 Dose: 10 ml Heparin Sodium (Porcine) (Heparin) 5,000 units SC Q12 [facility] PRN Reason: Protocol Last Admin: 03/16/17 10:22 Dose: 5,000 units Lorazepam (Ativan) 1 mg IVP Q4H PRN; Protocol PRN Reason: Symptoms of alcohol withdrawl Last Admin: 03/16/17 10:23 Dose: 1 mg Methylprednisolone (Solu-Medrol) 30 mg IVP Q8H [facility] Last Admin: 03/16/17 02:45 Dose: 30 mg Montelukast Sodium (Singulair) 10 mg PO DAILY [facility] Last Admin: 03/16/17 10:22 Dose: 10 mg Multivitamins (Thera Tab) 1 tab PO 0800 [facility] Last Admin: 03/16/17 10:22 Dose: 1 tab Nicotine (Nicoderm Cq) 1 patch TD DAILY [facility] Last Admin: 03/16/17 10:22 Dose: 1 patch Pantoprazole Sodium (Protonix Ec Tab) 40 mg PO DAILY [facility] Last Admin: 03/16/17 10:22 Dose: 40 mg Thiamine HCl (Vitamin B1 Tab) 100 mg PO DAILY [facility] Last Admin: 03/16/17 10:22 Dose: 100 mg Trazodone HCl (Desyrel) 50 mg PO HS PRN PRN Reason: Insomnia Last Admin: 03/15/17 22:52 Dose: 50 mg - Labs Labs: 03/16/17 05:20 03/16/17 05:20 - Constitutional Appears: Non-toxic, Unkempt - Head Exam Head Exam: ATRAUMATIC, NORMOCEPHALIC - Eye Exam Eye Exam: EOMI, Normal appearance, PERRL - ENT Exam ENT Exam: Mucous Membranes Moist, Normal Oropharynx - Neck Exam Neck Exam: Normal Inspection. absent: Lymphadenopathy, Thyromegaly - Respiratory Exam Respiratory Exam: Wheezes (diffuse, coarse breath sounds) - Cardiovascular Exam Cardiovascular Exam: RRR, +S1, +S2 - GI/Abdominal Exam GI & Abdominal Exam: Soft, Normal Bowel Sounds. absent: Rebound - Extremities Exam Extremities Exam: Normal Capillary Refill, Normal Inspection - Back Exam Back Exam: NORMAL INSPECTION. absent: CVA tenderness (L), CVA tenderness (R) - Neurological Exam Neurological Exam: Alert, Awake, CN II-XII Intact, Oriented x3 - Psychiatric Exam Psychiatric exam: Normal Affect, Normal Mood - Skin Skin Exam: Dry, Intact, Normal Color, Warm Assessment and Plan - Assessment and Plan (Free Text) Assessment: 46 year old, homeless female with a history of asthma, COPD, HCV, chronic alcohol use, and polysubstance use who presents with symptoms a COPD/asthma exacerbation and concerns for alcohol withdrawal. Plan: 1) Asthma exacerbation * CXR: no active disease * Flu A/B: negative * Singulair 10 mg PO QD * Solumedrol 30 mg IV Q8h * Duonebulized treatment q4h JACK * Pulmicort 0.5 mg Q12 * Physical Therapy will continue to see patient as long as she is in the hospital 2. Leukocytosis, likely secondary to corticosteroid, as the patient has been afebrile with no evidence of infection 3. Alcohol withdrawal * Ativan 1 mg q4h PRN * Librium 10 mg q8h JACK * Folic acid 1 mg PO QD * Thiamine 100 mg PO QD * Multivitamin PO daily * Vitals Q4 4. Tobacco dependence * Nicotine patch * counseled on smoking cessation 5. Mild Transaminitis: resolved 6. History of depression * Celexa 10 mg PO QD 7. Prophylaxis * DVT - heparin * GI - protonix <Jose Guadalupe Rouseantha - Last Filed: 03/16/17 15:29> Objective - Vital Signs/Intake and Output Vital Signs (last 24 hours): Temp Pulse Resp BP Pulse Ox 97.8 F 80 18 143/88 97 03/16/17 07:59 03/16/17 10:00 03/16/17 07:59 03/16/17 07:59 03/16/17 07:59 Intake and Output: 03/16/17 03/16/17 06:59 18:59 Intake Total 960 Balance 960 - Medications Medications: Current Medications Albuterol/Ipratropium (Duoneb 3 Mg/0.5 Mg (3 Ml) Ud) 3 ml IH [id number] [facility] Last Admin: 03/16/17 11:11 Dose: 3 ml Budesonide (Pulmicort Respules) 0.5 mg IH [id number] [facility] Chlordiazepoxide (Librium) 10 mg PO Q8H PRN; Protocol PRN Reason: Symptoms of alcohol withdrawl Last Admin: 03/15/17 15:24 Dose: 10 mg Citalopram Hydrobromide (Celexa) 10 mg PO DAILY [facility] Last Admin: 03/16/17 10:22 Dose: 10 mg Folic Acid (Folic Acid) 1 mg PO DAILY [facility] Last Admin: 03/16/17 10:22 Dose: 1 mg Heparin Sodium (Porcine) (Heparin) 5,000 units SC Q12 [facility] PRN Reason: Protocol Last Admin: 03/16/17 10:22 Dose: 5,000 units Lorazepam (Ativan) 1 mg IVP Q4H PRN; Protocol PRN Reason: Symptoms of alcohol withdrawl Last Admin: 03/16/17 10:23 Dose: 1 mg Methylprednisolone (Solu-Medrol) 30 mg IVP Q8H [facility] Last Admin: 03/16/17 11:55 Dose: 30 mg Montelukast Sodium (Singulair) 10 mg PO DAILY [facility] Last Admin: 03/16/17 10:22 Dose: 10 mg Multivitamins (Thera Tab) 1 tab PO 0800 [facility] Last Admin: 03/16/17 10:22 Dose: 1 tab Nicotine (Nicoderm Cq) 1 patch TD DAILY [facility] Last Admin: 03/16/17 10:22 Dose: 1 patch Pantoprazole Sodium (Protonix Ec Tab) 40 mg PO DAILY [facility] Last Admin: 03/16/17 10:22 Dose: 40 mg Thiamine HCl (Vitamin B1 Tab) 100 mg PO DAILY [facility] Last Admin: 03/16/17 10:22 Dose: 100 mg Trazodone HCl (Desyrel) 50 mg PO HS PRN PRN Reason: Insomnia Last Admin: 03/15/17 22:52 Dose: 50 mg - Labs Labs: 03/16/17 05:20 03/16/17 05:20 Attending/Attestation - Attestation I have personally seen and examined this patient.: Yes I have fully participated in the care of the patient.: Yes I have reviewed all pertinent clinical information, including history, physical exam and plan: Yes Notes (Text): 03/16/17 15:28 Attending note; Patient seen and examined with resident. Patient is a 46 year old female with history of COPD, alcohol abuse, known and untreated Hepatitis C, heroin abuse, active smoking, homelessness who was admitted for copd exacerbation. continue oxygen when necessary. Slowly improving respiratory status. Patient feels slightly better today however still continues to cough and has wheezing. Continue Xopenex and IV solumedrol. still with tachycardia on exertion. PT evaluation appreciated. Alcohol abuse; continue IV Ativan when necessary. Started on Librium. complete alcohol cessation is strongly advised. Active smoking ; smoking cessation is strongly advised .on NicoDerm patch . Prognosis is very poor secondary to continuous drug abuse and noncompliance with follow-up. Upon discharge patient will follow up with Dr. Chantel Salinas.
[2017-03-17] MEDS: MethylPREDNISolone 40 mg Vial IVP SCH ×2 (01:41→10:46)
[2017-03-17] MEDS: Albuterol-Ipratrop 3 mg / 0.5 (3 ml) UD IH SCH ×3 (04:16→11:07)
[2017-03-17 08:11] LABS: BASO # 0.06 K/mm3 (0.0-2.0); BASO % 0.3 % (0.0-3.0); GRAN # 16.88 (1.4-6.5); GRAN % 84.2 % (50.0-68.0); HEMATOCRIT 41.8 % (36.0-48.0); LYMPH # 1.8 (1.2-3.4); LYMPH % 9.1 % (22.0-35.0); MEAN CELL VOLUME 98.8 fl (80.0-105.0); MEAN CORPUSCULAR HEMOGLOBIN 32.6 pg (25.0-35.0); MEAN PLATELET VOLUME 9.9 fl (7.0-11.0); MONO # 1.3 (0.1-0.6); MONO % 6.4 % (1.0-6.0); RED CELL DISTRIBUTION WIDTH 14.8 % (11.5-14.5); WHITE BLOOD COUNT 20.1 10^3/ul (4.5-11.0)
[2017-03-17 08:30] LABS: ALB/GLOB RATIO 1.2 (1.1-1.8); ALKALINE PHOSPHATASE 65 U/L (38-126); ALT/SGPT 70 U/L (7-56); AST/SGOT 43 U/L (14-36); BILIRUBIN,TOTAL 0.6 mg/dL (0.2-1.3); BLOOD UREA NITROGEN 20 mg/dL (7-21); CALCIUM 8.8 mg/dL (8.4-10.5); CARBON DIOXIDE 34 mmol/L (21-33); CHLORIDE 98 mmol/L (98-107); GFR AFRICAN-AMERICAN > 60; GLUCOSE,RANDOM 180 mg/dL (70-110); POTASSIUM 4.2 mmol/L (3.6-5.0); SODIUM 137 mmol/L (132-148); TOTAL PROTEIN 6.4 g/dL (5.8-8.3)
[2017-03-17 09:40] VITALS: BP 123/78; PULSE 91; RESP 20; TEMP 98.1; O2SAT 98
[2017-03-17] MEDS: Pantoprazole 40 mg EC Tab PO SCH (10:40)
[2017-03-17] MEDS: Multivitamin Therapeutic Tab PO SCH (10:40)
[2017-03-17 10:43] LABS: ARTERIAL BLOOD GAS HCO3 32.8 mmol/L (21-28); ARTERIAL BLOOD GAS O2 CAPACITY 19.5 mL/dl (16-24); ARTERIAL BLOOD GAS O2 CONTENT 18.6 ML/dl (15-23); ARTERIAL BLOOD GAS PH 7.48 (7.35-7.45); ARTERIAL BLOOD HGB O2 SAT 92.4 % (95.0-98.0); CARBOXYHEMOGLOBIN 2.1 % (0.5-1.5); HHB 4.6 % (0-5)
--- NOTE | 2017-03-17 11:31 | CP.PCM.DIS ---
<Mery Colon - Last Filed: 03/17/17 12:59> Provider - Provider Date of Admission: 03/13/17 15:02 Attending physician: Junaid Rouse MD Time Spent in preparation of Discharge (in minutes): 36 Hospital Course - Lab Results Lab Results: Most Recent Lab Values WBC 20.1 10^3/ul (4.5-11.0) H D 03/17/17 08:00 RBC 4.23 10^6/uL (3.5-6.1) 03/17/17 08:00 Hgb 13.8 g/dL (12.0-16.0) 03/17/17 08:00 Hct 41.8 % (36.0-48.0) 03/17/17 08:00 MCV 98.8 fl (80.0-105.0) 03/17/17 08:00 MCH 32.6 pg (25.0-35.0) 03/17/17 08:00 MCHC 33.0 g/dl (31.0-37.0) 03/17/17 08:00 RDW 14.8 % (11.5-14.5) H 03/17/17 08:00 Plt Count 287 10^3/uL (120.0-450.0) 03/17/17 08:00 MPV 9.9 fl (7.0-11.0) 03/17/17 08:00 Gran % 84.2 % (50.0-68.0) H 03/17/17 08:00 Lymph % (Auto) 9.1 % (22.0-35.0) L 03/17/17 08:00 [place] % (Auto) 6.4 % (1.0-6.0) H 03/17/17 08:00 Eos % (Auto) 0.0 % (1.5-5.0) L 03/17/17 08:00 Baso % (Auto) 0.3 % (0.0-3.0) 03/17/17 08:00 Gran # 16.88 (1.4-6.5) H 03/17/17 08:00 Lymph # 1.8 (1.2-3.4) 03/17/17 08:00 [place] # 1.3 (0.1-0.6) H 03/17/17 08:00 Eos # 0.0 (0.0-0.7) 03/17/17 08:00 Baso # 0.06 K/mm3 (0.0-2.0) 03/17/17 08:00 pCO2 44 mm/Hg (35-45) 03/17/17 10:35 pO2 61.0 mm/Hg (80-100) L 03/17/17 10:35 HCO3 32.8 mmol/L (21-28) H 03/17/17 10:35 ABG pH 7.48 (7.35-7.45) H 03/17/17 10:35 ABG Total CO2 34.2 mmol.L (22-28) H 03/17/17 10:35 ABG O2 Saturation 95.3 % (95-98) 03/17/17 10:35 ABG O2 Content 18.6 ML/dl (15-23) 03/17/17 10:35 ABG Base Excess 8.2 mmol/L (-2.0-3.0) H 03/17/17 10:35 ABG Hemoglobin 14.3 g/dL (11.7-17.4) 03/17/17 10:35 ABG Carboxyhemoglobin 2.1 % (0.5-1.5) H 03/17/17 10:35 POC ABG HHb (Measured) 4.6 % (0-5) 03/17/17 10:35 ABG Methemoglobin 1.0 % (0.0-3.0) 03/17/17 10:35 ABG O2 Capacity 19.5 mL/dl (16-24) 03/17/17 10:35 Hgb O2 Saturation 92.4 % (95.0-98.0) L 03/17/17 10:35 FiO2 21.0 % 03/17/17 10:35 Sodium 137 mmol/L (132-148) 03/17/17 08:00 Potassium 4.2 mmol/L (3.6-5.0) 03/17/17 08:00 Chloride 98 mmol/L (98-107) 03/17/17 08:00 Carbon Dioxide 34 mmol/L (21-33) H 03/17/17 08:00 Anion Gap 9 (10-20) L 03/17/17 08:00 BUN 20 mg/dL (7-21) 03/17/17 08:00 Creatinine 0.6 mg/dl (0.7-1.2) L 03/17/17 08:00 Est GFR ( Amer) > 60 03/17/17 08:00 Est GFR (Non-Af Amer) > 60 03/17/17 08:00 POC Glucose (mg/dL) 256 mg/dL (65-110) H 03/15/17 11:23 Random Glucose 180 mg/dL (70-110) H 03/17/17 08:00 Calcium 8.8 mg/dL (8.4-10.5) 03/17/17 08:00 Phosphorus 4.3 mg/dL (2.5-4.5) 03/15/17 06:00 Magnesium 2.1 mg/dL (1.7-2.2) 03/15/17 06:00 Total Bilirubin 0.6 mg/dL (0.2-1.3) 03/17/17 08:00 AST 43 U/L (14-36) H 03/17/17 08:00 ALT 70 U/L (7-56) H 03/17/17 08:00 Alkaline Phosphatase 65 U/L (38-126) 03/17/17 08:00 Lactate Dehydrogenase 596 U/L (333-699) 03/12/17 14:50 Total Creatine Kinase 35 U/L (35-230) 03/12/17 14:50 Troponin I < 0.01 ng/mL 03/12/17 14:50 NT-Pro-B Natriuret Pep 51.5 pg/mL (0-450) 03/12/17 14:50 Total Protein 6.4 g/dL (5.8-8.3) 03/17/17 08:00 Albumin 3.5 g/dL (3.0-4.8) 03/17/17 08:00 Globulin 2.9 gm/dL 03/17/17 08:00 Albumin/Globulin Ratio 1.2 (1.1-1.8) 03/17/17 08:00 Procalcitonin 0.12 NG/ML (0.19-0.49) L 03/12/17 18:30 Alcohol, Quantitative 65 mg/dL (0-10) H 03/12/17 18:30 Influenza Typ A,B (EIA) Negative for flu a/b (NEGATIVE) 03/12/17 15:30 - Hospital Course Hospital Course: 46 year old female with a history of COPD, asthma, alcohol abuse, tobacco use, untreated Hepatitis C, intravenous drug use, and homelessness who [place] [facility] [place] symptoms of a COPD exacerbation and concerns for alcohol withdrawal. Initial diagnostic tests were negative for pneumonia, influenza A & B, or bactermia. For her COPD exacerbation the patient was treated with IV steroids, around the clock breathing treatments, supplemental oxygen, and expectorants/ mucolytic agents; benzodiazepines for her alcohol withdrawal symptoms; nicotine patch for tobacco dependence, and physical therapy, almost daily, to assess her exercise tolerance and breathing status concurrently. She was monitored closely on remote telemetry and improved gradually through the course of her hospitalization. Social work and case management worked diligently trying to find acceptable living arrangement for the patient. Prior to discharge, the patient was taken off oxygen and walked with physical therapy without any desaturation in pulse oximetry, visible shortness of breath, and was able to speak full sentences. The patient was advised to abstain from alcohol, tobacco, and any illicit drugs. She was provided with a Librium taper, steroid taper, and the below written prescriptions and instructions. - Date & Time of H&P Date of H&P: 03/17/17 Time of H&P: 17:00 Discharge Exam - Head Exam Head Exam: ATRAUMATIC, NORMOCEPHALIC - Eye Exam Eye Exam: EOMI, Normal appearance - ENT Exam ENT Exam: Mucous Membranes Moist, Normal Oropharynx - Neck Exam Neck exam: Normal Inspection - Respiratory Exam Respiratory Exam: Clear to PA & Lateral, NORMAL BREATHING PATTERN - Cardiovascular Exam Cardiovascular Exam: RRR, +S1, +S2 - GI/Abdominal Exam GI & Abdominal Exam: Normal Bowel Sounds. absent: Guarding, Rigid - Extremities Exam Extremities exam: normal inspection, pedal pulses present - Back Exam Back exam: NORMAL INSPECTION. absent: CVA tenderness (L), CVA tenderness (R) - Neurological Exam Neurological exam: Alert, CN II-XII Intact, Oriented x3 - Psychiatric Exam Psychiatric exam: Normal Affect, Normal Mood - Skin Skin Exam: Dry, Intact, Normal Color, Warm Discharge Plan - Discharge Medications Prescriptions: Albuterol HFA [Ventolin HFA 90 mcg/actuation (8 g)] 2 puff IH Q2 #1 inhaler chlordiazePOXIDE [Chlordiazepoxide HCl] 5 mg PO TID #6 cap Citalopram [celeXA] 10 mg PO DAILY #30 tab Fluticasone/Salmeterol 250/50 [Advair Diskus 250/50] 1 puff IH Q12 #1 puff Folic Acid 1 mg PO DAILY #30 tab guaiFENesin/Dextromethorphan [Robitussin DM] 10 ml PO Q4H #1 udc Methylprednisolone [Medrol Dose Pack (21 tabs)] 4 mg PO DAILY #21 mg Montelukast [Singulair] 10 mg PO DAILY #30 tab Multivitamin Therapeutic Tab [Thera Tab] 1 tab PO 0800 #30 tab Pantoprazole Sodium [Protonix] 40 mg PO DAILY #30 tablet. Thiamine [Vitamin B1 Tab] 100 mg PO DAILY #30 tab traZODone [Desyrel] 50 mg PO HS PRN #30 tab PRN Reason: Insomnia - Follow Up Plan Condition: FAIR Disposition: HOME/ ROUTINE Instructions: Asthma (DC), Asthma (GEN), Abuse of Alcohol (DC) Additional Instructions: Patient stable for discharge as per hospitalist team Patient to take following medications as prescribed: -Ventolin 90mch 2puff inh q12 Disp#1 -Celexa 10mg po qdaily Disp#30 -Advair 1 puff inh q12 Disp#1 -Folic acid 1mg po qdaily Disp#30 -Robitussin 10ml po q4 prn Disp#1 -Singulair 10mg po qdaily Disp#30 -Multivitamin 1 tab po qdaily Disp#30 -Protonix 40mg po qdaily Disp#30 -Thiamine 100mg po qdaily Disp#30 -Trazodone 50mg po qhs prn Disp#30 - Chlordiazepoxide 5 mg TID #6 - Medrol dose pack #1 Patient advised to abstain from tobacco use, alcohol, and any illicit drug use. If symptoms persist or worsen patient to visit ED immediately. Instructions discussed in detail with patient who understands and agrees. <Junaid Rouse - Last Filed: 03/17/17 15:13> Provider - Provider Date of Admission: 03/13/17 15:02 Attending physician: Junaid Rouse MD Hospital Course - Lab Results Lab Results: Most Recent Lab Values WBC 20.1 10^3/ul (4.5-11.0) H D 03/17/17 08:00 RBC 4.23 10^6/uL (3.5-6.1) 03/17/17 08:00 Hgb 13.8 g/dL (12.0-16.0) 03/17/17 08:00 Hct 41.8 % (36.0-48.0) 03/17/17 08:00 MCV 98.8 fl (80.0-105.0) 03/17/17 08:00 MCH 32.6 pg (25.0-35.0) 03/17/17 08:00 MCHC 33.0 g/dl (31.0-37.0) 03/17/17 08:00 RDW 14.8 % (11.5-14.5) H 03/17/17 08:00 Plt Count 287 10^3/uL (120.0-450.0) 03/17/17 08:00 MPV 9.9 fl (7.0-11.0) 03/17/17 08:00 Gran % 84.2 % (50.0-68.0) H 03/17/17 08:00 Lymph % (Auto) 9.1 % (22.0-35.0) L 03/17/17 08:00 [place] % (Auto) 6.4 % (1.0-6.0) H 03/17/17 08:00 Eos % (Auto) 0.0 % (1.5-5.0) L 03/17/17 08:00 Baso % (Auto) 0.3 % (0.0-3.0) 03/17/17 08:00 Gran # 16.88 (1.4-6.5) H 03/17/17 08:00 Lymph # 1.8 (1.2-3.4) 03/17/17 08:00 [place] # 1.3 (0.1-0.6) H 03/17/17 08:00 Eos # 0.0 (0.0-0.7) 03/17/17 08:00 Baso # 0.06 K/mm3 (0.0-2.0) 03/17/17 08:00 pCO2 44 mm/Hg (35-45) 03/17/17 10:35 pO2 61.0 mm/Hg (80-100) L 03/17/17 10:35 HCO3 32.8 mmol/L (21-28) H 03/17/17 10:35 ABG pH 7.48 (7.35-7.45) H 03/17/17 10:35 ABG Total CO2 34.2 mmol.L (22-28) H 03/17/17 10:35 ABG O2 Saturation 95.3 % (95-98) 03/17/17 10:35 ABG O2 Content 18.6 ML/dl (15-23) 03/17/17 10:35 ABG Base Excess 8.2 mmol/L (-2.0-3.0) H 03/17/17 10:35 ABG Hemoglobin 14.3 g/dL (11.7-17.4) 03/17/17 10:35 ABG Carboxyhemoglobin 2.1 % (0.5-1.5) H 03/17/17 10:35 POC ABG HHb (Measured) 4.6 % (0-5) 03/17/17 10:35 ABG Methemoglobin 1.0 % (0.0-3.0) 03/17/17 10:35 ABG O2 Capacity 19.5 mL/dl (16-24) 03/17/17 10:35 Hgb O2 Saturation 92.4 % (95.0-98.0) L 03/17/17 10:35 FiO2 21.0 % 03/17/17 10:35 Sodium 137 mmol/L (132-148) 03/17/17 08:00 Potassium 4.2 mmol/L (3.6-5.0) 03/17/17 08:00 Chloride 98 mmol/L (98-107) 03/17/17 08:00 Carbon Dioxide 34 mmol/L (21-33) H 03/17/17 08:00 Anion Gap 9 (10-20) L 03/17/17 08:00 BUN 20 mg/dL (7-21) 03/17/17 08:00 Creatinine 0.6 mg/dl (0.7-1.2) L 03/17/17 08:00 Est GFR ( Amer) > 60 03/17/17 08:00 Est GFR (Non-Af Amer) > 60 03/17/17 08:00 POC Glucose (mg/dL) 256 mg/dL (65-110) H 03/15/17 11:23 Random Glucose 180 mg/dL (70-110) H 03/17/17 08:00 Calcium 8.8 mg/dL (8.4-10.5) 03/17/17 08:00 Phosphorus 4.3 mg/dL (2.5-4.5) 03/15/17 06:00 Magnesium 2.1 mg/dL (1.7-2.2) 03/15/17 06:00 Total Bilirubin 0.6 mg/dL (0.2-1.3) 03/17/17 08:00 AST 43 U/L (14-36) H 03/17/17 08:00 ALT 70 U/L (7-56) H 03/17/17 08:00 Alkaline Phosphatase 65 U/L (38-126) 03/17/17 08:00 Lactate Dehydrogenase 596 U/L (333-699) 03/12/17 14:50 Total Creatine Kinase 35 U/L (35-230) 03/12/17 14:50 Troponin I < 0.01 ng/mL 03/12/17 14:50 NT-Pro-B Natriuret Pep 51.5 pg/mL (0-450) 03/12/17 14:50 Total Protein 6.4 g/dL (5.8-8.3) 03/17/17 08:00 Albumin 3.5 g/dL (3.0-4.8) 03/17/17 08:00 Globulin 2.9 gm/dL 03/17/17 08:00 Albumin/Globulin Ratio 1.2 (1.1-1.8) 03/17/17 08:00 Procalcitonin 0.12 NG/ML (0.19-0.49) L 03/12/17 18:30 Alcohol, Quantitative 65 mg/dL (0-10) H 03/12/17 18:30 Influenza Typ A,B (EIA) Negative for flu a/b (NEGATIVE) 03/12/17 15:30 Attending/Attestation - Attestation I have personally seen and examined this patient.: Yes I have fully participated in the care of the patient.: Yes I have reviewed all pertinent clinical information, including history, physical exam and plan: Yes Notes (Text): 03/17/17 15:08 Attending note; Patient seen and examined with resident. Patient is a 46 year old female with history of COPD, alcohol abuse, known and untreated Hepatitis C, heroin abuse, active smoking, homelessness who was admitted for copd exacerbation. Treated with oxygen,DuoNeb and IV Solu-Medrol. respiratory status improved. Currently off oxygen. PT evaluation appreciated. Ambulating without oxygen. Alcohol abuse; continue IV Ativan when necessary. on tapering dose of Librium. complete alcohol cessation is strongly advised. Active smoking ; smoking cessation is strongly advised .on NicoDerm patch. social staff worker evaluation appreciated. patient will be going to skilled nursing. Prescriptions given. Mr. Banda ordered Prognosis is very poor secondary to continuous drug abuse and noncompliance with follow-up. Upon discharge patient will follow up with Dr. Chantel Salinas [place] [facility] [place]. diagnosis; COPD exacerbation Active smoking Alcohol abuse Drug abuse Homelessness hepatitis C Noncompliance with follow-up
== END 2017-03-17 14:45 | disposition home or self-care (01) | DRG 88 ==
LOC: ED 14:17 → ERH 17:25 → 3RNO 20:41 → OBSVTOIN 03-13 15:02
PROVIDERS: ADMIT Internal Medicine; ATTEND Internal Medicine
DX: J44.1 Chronic obstructive pulmonary disease with (acute) exacerbation (principal); J45.901 Unspecified asthma with (acute) exacerbation; B19.20 Unspecified viral hepatitis C without hepatic coma; F10.239 Alcohol dependence with withdrawal, unspecified; F11.10 Opioid abuse, uncomplicated; E87.6 Hypokalemia; F17.200 Nicotine dependence, unspecified, uncomplicated; F32.9 Major depressive disorder, single episode, unspecified; D72.829 Elevated white blood cell count, unspecified; T38.0X5A Adverse effect of glucocorticoids and synthetic analogues, initial encounter; Y90.3 Blood alcohol level of 60-79 mg/100 ml; Z91.19 Patient's noncompliance with other medical treatment and regimen; Z59.0 Homelessness

== ENCOUNTER 2017-03-21 18:58 | Inpatient (IN) | payer MEDICAID ==
[2017-03-21] MEDS ORDERED: Albuterol 0.5% Inhal Sol (2.5 mg/0.5 ml) UD IH STA ×2 (19:06→21:43)
[2017-03-21] MEDS ORDERED: Ipratropium 0.02% Inhal Soln (0.5 mg/2.5 ml) UD IH STA (19:06)
[2017-03-21] MEDS ORDERED: Albuterol-Ipratrop 3 mg / 0.5 (3 ml) UD ONE (19:07)
[2017-03-21] MEDS ORDERED: Magnesium Sulfate 2 GM in Sodium Chloride 0.9% 100 ML IVPB ONE (19:08)
[2017-03-21] MEDS ORDERED: Sodium Chloride 0.9% 1,000 ML IV STA (19:10)
[2017-03-21] MEDS ORDERED: cefTRIAXone 2 GM IN NS 2 GM/100 ML BAG IVPB STA (19:12)
[2017-03-21 19:43] LABS: BASO # 0.04 K/mm3 (0.0-2.0); BASO % 0.2 % (0.0-3.0); EOS # 0.2 (0.0-0.7); GRAN # 13.92 (1.4-6.5); LYMPH # 4.9 (1.2-3.4); LYMPH % 23.5 % (22.0-35.0); MEAN CELL VOLUME 96.5 fl (80.0-105.0); MEAN CORPUSCULAR HEMOGLOBIN 33.4 pg (25.0-35.0); MEAN CORPUSCULAR HGB CONC 34.6 g/dl (31.0-37.0); MEAN PLATELET VOLUME 9.9 fl (7.0-11.0); MONO # 1.7 (0.1-0.6); MONO % 8.3 % (1.0-6.0); WHITE BLOOD COUNT 20.8 10^3/ul (4.5-11.0)
[2017-03-21 19:50] LABS: INR 0.95 (0.93-1.08); PARTIAL THROMBOPLASTIN TIME 25.1 Seconds (25.1-36.5)
--- NOTE | 2017-03-21 19:57 | ED PDOC ---
Arrival/HPI - General Chief Complaint: Shortness Of Breath Time Seen by Provider: 03/21/17 19:05 Historian: Patient EM Caveat: Acuity of Condition, Respiratory Distress - History of Present Illness Narrative History of Present Illness (Text): 46 y/o undomiciled female w/ pmhx of copd/asthma, untreated Hep C, HLD, chronci alcoholism, chronic tobacco use presents bibems c/o several days of cough productive of mucoid expectoration nos, culminating in chest tightness/ shortness of breath/ wheezing familiar to her as her asthma, mild tussive chest pain as well, pt could only speak in 2 -3 word sentences, and so much of history was from her partner at the bedside, further HPI not possible at the time of this note's writing. 03/21/17 19:59 Time/Duration: < week Symptom Onset: Gradual Symptom Course: Worsening Past Medical History - Provider Review Nursing Documentation Reviewed: Yes - Travel History Have you recently traveled outside [place] w/in the past 3 mons?: No - Infectious Disease Hx of Infectious Diseases: None - Tetanus Immunization Tetanus Immunization: Unknown - Cardiac Hx Cardiac Disorders: No Hx Hypertension: Yes - Pulmonary Hx Respiratory Disorders: Yes Hx Chronic Obstructive Pulmonary Disease (COPD): Yes - Neurological HX Cerebrovascular Accident: No - HEENT Hx HEENT Disorder: No - Renal Hx Renal Disorder: No - Endocrine/Metabolic Hx Hypothyroidism: Yes - Hematological/Oncological Hx Blood Disorders: Yes Hx Hepatitis C: Yes - Integumentary Hx Dermatological Disorder: Yes Other/Comment: skin bruising - Musculoskeletal/Rheumatological Hx Falls: Yes (fell 2 wks ago) - Gastrointestinal Hx Gastrointestinal Disorders: Yes Hx Pancreatitis: (pt denies pancreatitis) Other/Comment: Umbilical hernia /cirrhosis/ distended abd - Genitourinary/Gynecological Hx Genitourinary Disorders: No Hx Sexually Transmitted Diseases: (pt denies trichomonas) - Psychiatric Hx Psychophysiologic Disorder: Yes Hx Anxiety: Yes Hx Depression: Yes Hx Substance Use: Yes (former) Other/Comment: alcohol drinks 4 or 5 24 oz cans of 4-frances a day, 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 - Anesthesia Hx Anesthesia: Yes Hx Anesthesia Reactions: No Hx Malignant Hyperthermia: No - Suicidal Assessment Feels Threatened In Home Enviroment: No Family/Social History - Physician Review Nursing Documentation Reviewed: Yes Family/Social History: No Known Family HX Smoking Status: Heavy Smoker > 10 Cigarettes Daily Hx Alcohol Use: Yes Frequency of alcohol use: Daily Hx Substance Use: Yes (former) Substance used: HEROIN Hx Substance Use Treatment: Yes Allergies/Home Meds Allergies/Adverse Reactions: Allergies No Known Allergies Allergy (Verified 03/21/17 19:11) Review of Systems - Physician Review All systems were reviewed & negative as marked: Yes - Review of Systems Constitutional: Normal Eyes: Normal ENT: Normal Respiratory: Normal, SOB, Cough Cardiovascular: BAI Gastrointestinal: Normal Genitourinary Female: Normal Musculoskeletal: Normal Skin: Normal Neurological: Normal Endocrine: Normal Hemo/Lymphatic: Normal Psychiatric: Normal Physical Exam Vital Signs Reviewed: Yes Vital Signs Temp Pulse Resp BP Pulse Ox 03/22/17 02:05 115 H 20 113/71 96 03/22/17 01:56 105 H 18 115/72 95 03/22/17 01:46 108 H 19 118/84 96 03/22/17 01:36 110 H 20 117/74 96 03/22/17 01:26 111 H 24 120/71 95 03/22/17 01:16 112 H 22 119/69 95 03/21/17 23:44 136 H 32 H 154/94 H 83 L 03/21/17 23:02 111 H 29 H 150/89 90 L 03/21/17 20:58 101 H 24 124/75 99 03/21/17 19:46 98.5 F 102 H 32 H 122/91 H 100 03/21/17 19:15 33 H 100 Temperature: Afebrile Blood Pressure: Normal Pulse: Regular Respiratory Rate: Normal Appearance: Positive for: Well-Appearing, Non-Toxic, Comfortable Pain Distress: None Mental Status: Positive for: Alert and Oriented X 3 - Systems Exam Head: Present: Atraumatic, Normocephalic Pupils: Present: PERRL Extroacular Muscles: Present: EOMI Conjunctiva: Present: Normal Mouth: Present: Moist Mucous Membranes Neck: Present: Normal Range of Motion Respiratory/Chest: Present: Respiratory Distress, Wheezes, Rhonchi, Other ( scatterred expiratory and inspiratory wheezing , no segmental wheezing pattern ) . No: Accessory Muscle Use Cardiovascular: Present: Regular Rate and Rhythm, Normal S1, S2. No: Murmurs Abdomen: Present: Normal Bowel Sounds. No: Tenderness, Distention, Peritoneal Signs Back: Present: Normal Inspection Upper Extremity: Present: Normal Inspection. No: Cyanosis, Edema Lower Extremity: Present: Normal Inspection. No: Edema Neurological: Present: GCS=15, CN II-XII Intact, Speech Normal, Motor Func Grossly Intact, Normal Sensory Function, Normal Cerebellar Funct, Norm Deep Tendon Reflexes, Gait Normal, Memory Normal, Normal 2Pt Descrimination Skin: Present: Warm, Dry, Normal Color. No: Rashes Psychiatric: Present: Alert, Oriented x 3, Normal Insight, Normal Concentration Medical Decision Making ED Course and Treatment: 03/21/17 23:06 PROCEDURE: INTUBATION Performed by the emergency provider Consent: Discussion of the risks, benefits, and alternatives to the procedure, along with informed consent was precluded by the urgency of the procedure and the patient condition. Timeout: A timeout to verify the correct patient, procedure, and site was performed. Pre-oxygenation: [id number] Medications: Etomidate and Succinylcholine. See MAR for details. ETT Size: 7.5 gauge Confirmation: Cords directly visualized as tube passed, good bilateral breath sounds, positive CO2 detector color change, tube fogging, adequate chest rise, improving pulse oximetry reading, improved skin color, and absence of gastric sounds,. ETT Secured: The cuff was inflated and the tube was secured appropriately at a distance of 23 cm at the lip. Post-Procedure: There were no immediate complications. CXR Confirmation: Yes 03/22/17 00:28 Due to pt clinically appearing to tire out, blood ph beginning to drop, pt had to be intubated due to worsening respiratory distress. Pt will be admitted for status asthmaticus/upper respiratory infection/copd exacerbation to MICU. - Critical Care Critical Care Minutes: Other (300 minutes) - Lab Interpretations Microbiology Results: Microbiology Results 03/21/17 19:45 Blood-Venous Blood Culture - Final NO GROWTH AFTER 5 DAYS 03/21/17 19:45 Blood-Venous Gram Stain - Final TEST NOT PERFORMED 03/21/17 19:25 Blood-Venous Blood Culture - Final NO GROWTH AFTER 5 DAYS 03/21/17 19:25 Blood-Venous Gram Stain - Final TEST NOT PERFORMED 03/21/17 21:49 Urine,Clean Catch Urine Culture - Final 10-50,000 CFU/ML. MULTIPLE SPECIES. PROBABLE CONTAMINATION. Lab Results: 03/21/17 19:25 03/21/17 19:25 Lab Results 03/21/17 22:34: pCO2 65 H, pO2 236.0 H, HCO3 33.5 H, ABG pH 7.32 L, ABG Total CO2 35.5 H, ABG O2 Saturation 99.7 H, ABG O2 Content 19.5, ABG Base Excess 5.2 H , ABG Hemoglobin 14.0, ABG Carboxyhemoglobin 2.8 H, POC ABG HHb (Measured) 0.3, ABG Methemoglobin 0.7, ABG O2 Capacity 19.6, Hgb O2 Saturation 96.2, FiO2 50.0 03/21/17 21:49: Urine Color Yellow, Urine Appearance Clear, Urine pH 6.0, Ur Specific [place] <= 1.005, Urine Protein Negative, Urine Glucose (UA) Negative, Urine Ketones Negative, Urine Blood Moderate H, Urine Nitrate Negative, Urine Bilirubin Negative, Urine Urobilinogen 0.2, Ur Leukocyte Esterase Trace H, Urine RBC 15 - 20, Urine WBC 2 - 5, Ur Epithelial Cells 4 - 5, Amorphous Sediment Few, Urine Bacteria Mod 03/21/17 19:25: Sodium 136, Chloride 91 L, Potassium 3.0 L, Carbon Dioxide 34 H , Anion Gap 14, BUN 5 L, Creatinine 0.5 L, Est GFR ( Amer) > 60, Est GFR (Non-Af Amer) > 60, Random Glucose 132 H, Calcium 8.2 L, Total Bilirubin 0.8, AST 48 H, ALT 87 H, Alkaline Phosphatase 91, Lactate Dehydrogenase 631, Total Creatine Kinase 65, Troponin I < 0.01, NT-Pro-B Natriuret Pep 141, Total Protein 6.6, Albumin 3.6, Globulin 3.0, Albumin/Globulin Ratio 1.2 03/21/17 19:25: PT 10.3, INR 0.95, APTT 25.1 03/21/17 19:25: WBC 20.8 H, RBC 4.25, Hgb 14.2, Hct 41.0, MCV 96.5, MCH 33.4, MCHC 34.6, RDW 14.0, Plt Count 364, MPV 9.9, Gran % 67.0, Lymph % (Auto) 23.5, [place] % (Auto) 8.3 H, Eos % (Auto) 1.0 L, Baso % (Auto) 0.2, Gran # 13.92 H, Lymph # 4.9 H, [place] # 1.7 H, Eos # 0.2, Baso # 0.04 03/21/17 19:20: pO2 240 H, VBG pH 7.47 H, VBG pCO2 48.0, VBG HCO3 34.9 H, VBG Total CO2 36.4 H, VBG O2 Sat (Calc) 99.7 H, VBG Base Excess 9.7 H, VBG Potassium 3.2 L, Sodium 135.0, Chloride 93.0 L, Glucose 133 H, Lactate 2.7 H, FiO2 21.0, Venous Blood Potassium 3.2 L I have reviewed the lab results: Yes - RAD Interpretation Radiology Orders: 03/21/17 19:07 CHEST PORTABLE [RAD] Stat Acupuncturist: ED Physician - EKG Interpretation Interpreted by ED Physician: Yes Type: 12 lead EKG - Medication Orders Current Medication Orders: Discontinued Medications Albuterol Sulfate (Albuterol 0.5% Inhal Yue (2.5 Mg/0.5 Ml) Ud) 2.5 mg IH STAT STA Stop: 03/21/17 19:07 Last Admin: 03/21/17 19:15 Dose: 2.5 mg Albuterol Sulfate (Albuterol 0.5% Inhal Yue (2.5 Mg/0.5 Ml) Ud) 2.5 mg IH STAT STA Stop: 03/21/17 21:44 Last Admin: 03/21/17 22:44 Dose: 2.5 mg Albuterol/Ipratropium (Duoneb 3 Mg/0.5 Mg (3 Ml) Ud) 3 ml IH [id number] JACK Last Admin: 03/22/17 11:00 Dose: 3 ml Albuterol/Ipratropium (Duoneb 3 Mg/0.5 Mg (3 Ml) Ud) 3 ml IH STAT STA Stop: 03/22/17 08:55 Arformoterol Tartrate (Brovana) 15 mcg IH [id number] JACK Last Admin: 03/30/17 11:06 Dose: 15 mcg Bisacodyl (Dulcolax) 10 mg RC ONCE ONE Stop: 03/29/17 09:37 Last Admin: 03/29/17 10:19 Dose: 10 mg Budesonide (Pulmicort Respules) 0.5 mg IH [id number] REPLACED BY [facility] Last Admin: 03/30/17 11:06 Dose: 0.5 mg Chlorhexidine Gluconate (Peridex) 15 ml PO BID REPLACED BY [facility] Last Admin: 03/23/17 09:57 Dose: Citalopram Hydrobromide (Celexa) 10 mg PO DAILY REPLACED BY [facility] Last Admin: 03/30/17 10:19 Dose: 10 mg Docusate Sodium (Colace Liquid) 100 mg PO TID REPLACED BY [facility] Last Admin: 03/30/17 10:18 Dose: 100 mg Doxycycline Hyclate (Doryx) 100 mg PO STAT STA PRN Reason: Protocol Stop: 03/21/17 21:01 Last Admin: 03/21/17 21:16 Dose: 100 mg Doxycycline Hyclate (Doryx) 100 mg PO Q12 JACK PRN Reason: Protocol Stop: 03/31/17 10:01 Last Admin: 03/27/17 11:23 Dose: 100 mg Enoxaparin Sodium (Lovenox) 40 mg SC DAILY REPLACED BY [facility] PRN Reason: Protocol Last Admin: 03/29/17 10:09 Dose: 40 mg MAR aPTT Document 03/29/17 10:09 [place] (Rec: 03/29/17 10:09 [place] [facility] [id number] aPTT aPTT (secs) 25.4 Subcutaneous Administrations Document 03/29/17 10:09 TX (Rec: 03/29/17 10:09 TX [facility] [id number]) Injection Site MAR Injection Site Right Deltoid Charges for Administration # of Subcutaneous Administrations 1 Etomidate (Amidate) 60 mg IVP STAT STA Stop: 03/22/17 00:26 Last Admin: 03/21/17 23:00 Dose: 60 mg IVP Administration Document 03/21/17 23:00 RD (Rec: 03/22/17 01:26 RD [facility] [id number] Charges for Administration # of IVP Administrations 1 Fentanyl (Fentanyl) 100 mcg IVP ONCE ONE Stop: 03/22/17 00:18 Last Admin: 03/22/17 01:55 Dose: 100 mcg MAR Pain Assessment Document 03/22/17 01:55 RD (Rec: 03/22/17 01:55 RD [id number]) Pain Reassessment Is this a pain reassessment? No Sleep Is patient sleeping during reassessment? No Presence of Pain Presence of Pain Yes IVP Administration Document 03/22/17 01:55 RD (Rec: 03/22/17 01:55 RD [id number]) Charges for Administration # of IVP Administrations 1 Folic Acid (Folic Acid) 1 mg PO DAILY REPLACED BY [facility] Last Admin: 03/30/17 10:19 Dose: 1 mg Guaifenesin (Robitussin) 100 mg PO ONCE STA Stop: 03/23/17 23:02 Last Admin: 03/23/17 23:30 Dose: 100 mg Guaifenesin (Robitussin) 100 mg PO ONCE ONE Stop: 03/24/17 20:47 Last Admin: 03/24/17 21:18 Dose: 100 mg Guaifenesin/Dextromethorphan (Robitussin Dm) 10 ml PO Q4H PRN PRN Reason: Cough Last Admin: 03/27/17 11:23 Dose: 10 ml Guaifenesin/Dextromethorphan (Robitussin Dm) 10 ml PO Q4H REPLACED BY [facility] Last Admin: 03/30/17 13:04 Dose: Not Given Non-Admin Reason: Patient Refused Magnesium Sulfate 2 gm/ Sodium (Chloride) 104 mls @ 102 mls/hr IVPB ONCE ONE Stop: 03/21/17 20:09 Last Admin: 03/21/17 19:40 Dose: 102 mls/hr eMAR Start Stop Document 03/21/17 19:40 RD (Rec: 03/21/17 20:00 RD [id number]) Intravenous Solution Start Date 03/21/17 Start Time 19:40 End Date 03/21/17 End time 20:40 Total Infusion Time 60 Sodium Chloride (Sodium Chloride 0.9%) 1,000 mls @ 999 mls/hr IV .Q1H1M STA Stop: 03/21/17 20:10 Last Admin: 03/21/17 20:00 Dose: 999 mls/hr eMAR Start Stop Document 03/21/17 20:00 RD (Rec: 03/21/17 20:00 RD [id number]) Intravenous Solution Start Date 03/21/17 Start Time 20:00 End Date 03/21/17 End time 21:00 Total Infusion Time 60 Ceftriaxone Sodium (Rocephin 2 Gm Ivpb) 2 gm in 100 mls @ 100 mls/hr IVPB STAT STA PRN Reason: Protocol Stop: 03/21/17 20:11 Last Admin: 03/21/17 20:42 Dose: 100 mls/hr eMAR Start Stop Document 03/21/17 20:42 RD (Rec: 03/21/17 20:43 RD [id number]) Intravenous Solution Start Date 03/21/17 Start Time 20:42 End Date 03/21/17 End time 21:42 Total Infusion Time 60 Doxycycline Hyclate 100 mg/ (Sodium Chloride) 100 mls @ 100 mls/hr IVPB ONCE ONE PRN Reason: Protocol Stop: 03/21/17 22:41 Last Admin: 03/21/17 22:44 Dose: 100 mls/hr eMAR Start Stop Document 03/21/17 22:44 EQ (Rec: 03/21/17 22:44 EQ [id number] Intravenous Solution Start Date 03/21/17 Start Time 22:44 Potassium Chloride (Potassium Chloride 20 Meq/100 Ml) 20 meq in 100 mls @ 50 mls/hr IVPB ONCE ONE Stop: 03/21/17 23:41 Last Admin: 03/21/17 22:43 Dose: 50 mls/hr eMAR Start Stop Document 03/21/17 22:43 EQ (Rec: 03/21/17 22:44 EQ [id number] Intravenous Solution Start Date 03/21/17 Start Time 22:44 Fentanyl Citrate (Fentanyl Citrate/Sodium Chloride 1 Mg/100 Ml) 1,000 mcg in 100 mls @ 2 mls/hr IV .Q24H PRN; Protocol; 20 MCG/HR PRN Reason: TITRATE PER MD ORDER Stop: 03/23/17 23:59 Last Titration: 03/22/17 07:40 Dose: 0 mcg/hr, 0 mls/hr Titration Intervention Document 03/22/17 07:40 ALIPM (Rec: 03/22/17 12:10 ALIPM [facility] [id number] Titration Intake Titration Intake 4 Cumulative Intake 4 Cumulative Intake (Rx) 4 Waste Amount 0 Container Volume 96 Titration Dosing Titration Dose 0 IV Rate 0 Intake/Decrease Paused Cumulative Dose 40 Propofol (Diprivan) 1,000 mg in 100 mls @ 2.585 mls/hr IV .Q24H PRN; Protocol; 5 MCG/KG/MIN PRN Reason: TITRATE PER MD ORDER Last Titration: 03/22/17 07:40 Dose: 0 mcg/kg/min, 0 mls/hr Titration Intervention Document 03/22/17 07:40 ALIPM (Rec: 03/22/17 09:05 ALIPM [id number]) Titration Intake Titration Intake 70 Cumulative Intake 70 Cumulative Intake (Rx) 170 Waste Amount 0 Container Volume 30 Titration Dosing Titration Dose 0 IV Rate 0 Intake/Decrease Paused Cumulative Dose 1700 Sodium Chloride (Sodium Chloride 0.9%) 1,000 mls @ 999 mls/hr IV .Q1H1M STA Stop: 03/22/17 01:29 Last Admin: 03/22/17 01:55 Dose: 999 mls/hr Comments: 200ml/hr eMAR Start Stop Document 03/22/17 01:55 RD (Rec: 03/22/17 01:56 RD [id number]) Intravenous Solution Start Date 03/22/17 Start Time 01:55 Ceftriaxone Sodium (Rocephin 2 Gm Ivpb) 2 gm in 100 mls @ 100 mls/hr IVPB DAILY JACK PRN Reason: Protocol Last Admin: 03/22/17 09:21 Dose: 100 mls/hr eMAR Start Stop Document 03/22/17 09:21 ALIPM (Rec: 03/22/17 09:21 [email or web address] Intravenous Solution Start Date 03/22/17 Start Time 09:21 End Date 03/22/17 End time 10:21 Total Infusion Time 60 Multivitamins/Vitamin C 10 ml/Thiamine HCl 100 mg/ Folic Acid 1 mg/ Sodium Chloride 1,011.2 mls @ 1,000 mls/hr IV .Q1H1M ONE Stop: 03/22/17 01:55 Last Admin: 03/22/17 03:41 Dose: 100 mls/hr Comments: Pt was just brought from ED Run @ 100 ml/hr order clarified with eMAR Start Stop Document 03/22/17 03:41 HINTON (Rec: 03/22/17 03:45 HINTON [facility] [id number]) Intravenous Solution Start Date 03/22/17 Start Time 03:41 Sodium Chloride (Sodium Chloride 0.9%) 1,000 mls @ 100 mls/hr IV .Q10H JACK Last Admin: 03/22/17 03:47 Dose: Comments: Pt just brought up from ED Cefepime HCl (Maxipime 1gm) 1 gm in 100 mls @ 100 mls/hr IVPB Q8 JACK PRN Reason: Protocol Stop: 03/31/17 14:01 Last Admin: 03/25/17 06:02 Dose: 100 mls/hr eMAR Start Stop Document 03/25/17 06:02 SGG (Rec: 03/25/17 06:02 SGG [id number]) Intravenous Solution Start Date 03/25/17 Start Time 06:02 Lactated Ringer's (Lactated Ringer's) 1,000 mls @ 100 mls/hr IV .Q10H JACK Stop: 03/25/17 23:46 Last Admin: 03/25/17 23:25 Dose: 100 mls/hr eMAR Start Stop Document 03/25/17 23:25 PCU (Rec: 03/25/17 23:25 PCU [id number]) Intravenous Solution Start Date 03/25/17 Start Time 23:25 End Date 03/26/17 End time 21:25 Total Infusion Time 1320 Ipratropium [place] (Atrovent) 0.5 mg IH STAT STA Stop: 03/21/17 19:07 Last Admin: 03/21/17 20:11 Dose: 0.5 mg Levalbuterol HCl (Xopenex) 0.63 mg IH [id number] PRN PRN Reason: Shortness of Breath Last Admin: 03/30/17 11:06 Dose: 0.63 mg Lorazepam (Ativan) 1 mg IVP ONCE ONE PRN Reason: Protocol Stop: 03/22/17 09:42 Last Admin: 03/22/17 10:00 Dose: 1 mg IVP Administration Document 03/22/17 10:00 ALIPM (Rec: 03/22/17 10:00 ALIPM [facility] [id number] Charges for Administration # of IVP Administrations 1 Behavioural Document 03/22/17 10:00 ALIPM (Rec: 03/22/17 10:00 ALIPM [facility] [id number]) Maintenance Maintenance Dose Yes Nonmedicinal Nonmedicinal Interventions Therapeutic Communication Behavior Behavior for Medication: Anxiety Re-Assess: Reassess Psych Meds Document 03/22/17 10:30 ALIPM (Rec: 03/22/17 11:30 ALIPM [facility] [id number]) Reassess Psych Med Effective Lorazepam (Ativan) 1 mg IVP Q1H PRN; Protocol PRN Reason: Symptoms of alcohol withdrawl Lorazepam (Ativan) 2 mg IVP Q4H PRN; Protocol PRN Reason: Symptoms of alcohol withdrawl Last Admin: 03/24/17 13:45 Dose: 2 mg IVP Administration Document 03/24/17 13:45 RAMOM (Rec: 03/24/17 13:45 RAMOM [id number] Charges for Administration # of IVP Administrations 1 Behavioural Document 03/24/17 13:45 RAMOM (Rec: 03/24/17 13:45 RAMOM [facility] [id number]) Maintenance Maintenance Dose Yes Nonmedicinal Nonmedicinal Interventions Redirect Behavior Behavior for Medication: Anxiety Re-Assess: Reassess Psych Meds Document 03/24/17 14:15 RAMOM (Rec: 03/24/17 16:09 RAMOM [id number]) Reassess Psych Med Effective Lorazepam (Ativan) 1 mg IVP Q6H PRN; Protocol PRN Reason: Anxiety Last Admin: 03/23/17 08:17 Dose: 1 mg IVP Administration Document 03/23/17 08:17 QES (Rec: 03/23/17 08:17 QES [id number]) Charges for Administration # of IVP Administrations 1 Behavioural Document 03/23/17 08:17 QES (Rec: 03/23/17 08:17 QES [id number]) Maintenance Maintenance Dose Yes Nonmedicinal Nonmedicinal Interventions Therapeutic Communication Behavior Behavior for Medication: Anxiety Re-Assess: Reassess Psych Meds Document 03/23/17 08:47 RAMOM (Rec: 03/23/17 09:02 RAMOM [facility] [id number]) Reassess Psych Med Effective Lorazepam (Ativan) 1 mg IVP Q6H JACK PRN Reason: Protocol Last Admin: 03/30/17 10:17 Dose: 1 mg IVP Administration Document 03/30/17 10:17 [place] (Rec: 03/30/17 10:17 [place] [id number] Charges for Administration # of IVP Administrations 1 Behavioural Document 03/30/17 10:17 TX (Rec: 12/14/17 10:17 [place] [id number]) Maintenance Maintenance Dose Yes Nonmedicinal Nonmedicinal Interventions Redirect Therapeutic Communication Behavior Behavior for Medication: Anxiety Re-Assess: Reassess Psych Meds Document 03/30/17 10:47 TX (Rec: 03/30/17 13:04 TX [facility] [id number]) Reassess Psych Med Effective Methylnaltrexone [place] (Relistor) 8 mg SC ONCE ONE Stop: 03/24/17 08:24 Last Admin: 03/24/17 08:42 Dose: 8 mg Subcutaneous Administrations Document 03/24/17 08:42 RAMOM (Rec: 03/24/17 08:42 RAMOM [facility] [id number]) Injection Site MAR Injection Site Right Arm Charges for Administration # of Subcutaneous Administrations 1 Methylprednisolone (Solu-Medrol) 125 mg IVP STAT STA Stop: 03/21/17 19:07 Last Admin: 03/21/17 19:15 Dose: 125 mg IVP Administration Document 03/21/17 19:15 RD (Rec: 03/21/17 19:59 RD [id number]) Charges for Administration # of IVP Administrations 1 Methylprednisolone (Solu-Medrol) 40 mg IVP Q12 JACK Stop: 03/26/17 13:00 Last Admin: 03/26/17 10:08 Dose: 40 mg IVP Administration Document 03/26/17 10:08 RDS (Rec: 03/26/17 10:09 RDS [id number]) Charges for Administration # of IVP Administrations 1 Methylprednisolone (Solu-Medrol) 30 mg IVP Q12 REPLACED BY [facility] Last Admin: 03/28/17 10:17 Dose: 30 mg IVP Administration Document 03/28/17 10:17 EP (Rec: 03/28/17 10:17 EP [id number] Charges for Administration # of IVP Administrations 1 Methylprednisolone (Solu-Medrol) 20 mg IVP Q12 REPLACED BY [facility] Last Admin: 03/30/17 10:18 Dose: 20 mg IVP Administration Document 03/30/17 10:18 [place] (Rec: 03/30/17 10:18 [place] [id number] Charges for Administration # of IVP Administrations 1 Montelukast Sodium (Singulair) 10 mg PO HS JACK Last Admin: 03/29/17 23:02 Dose: 10 mg Multivitamins (Thera Tab) 1 tab PO 0800 REPLACED BY [facility] Last Admin: 03/30/17 10:19 Dose: 1 tab Nicotine (Nicoderm Cq) 1 patch TD DAILY REPLACED BY [facility] Last Admin: 03/30/17 10:19 Dose: 1 patch MAR Transdermal Patch Site Document 03/30/17 10:19 TX (Rec: 03/30/17 10:19 TX [facility] [id number]) Transdermal Patch Site Transdermal Patch Site Right Outer Upper Arm Pantoprazole Sodium (Protonix Inj) 40 mg IVP DAILY REPLACED BY [facility] Last Admin: 03/22/17 09:20 Dose: 40 mg IVP Administration Document 03/22/17 09:20 ALIPM (Rec: 03/22/17 09:20 ALIPM [facility] [email or web address]) Charges for Administration # of IVP Administrations 1 Pantoprazole Sodium (Protonix Ec Tab) 40 mg PO 0600 REPLACED BY [facility] Last Admin: 03/30/17 05:55 Dose: 40 mg Polyethylene Glycol (Miralax) 17 gm PO DAILY REPLACED BY [facility] Last Admin: 03/30/17 10:28 Dose: Not Given Non-Admin Reason: Patient Refused Potassium Chloride (Potassium Chloride Oral Soln) 40 meq PO STAT STA Stop: 03/21/17 21:00 Last Admin: 03/21/17 21:16 Dose: 40 meq Potassium Chloride (Potassium Chloride Oral Soln) 40 meq PO STAT STA Stop: 03/22/17 00:53 Last Admin: 03/22/17 01:33 Dose: Fluticasone/Salmeterol (Advair Diskus 250/50) 1 puff IH Q12 REPLACED BY [facility] Sodium Phosphate (Fleet Enema) 135 ml RC Q4H JACK Stop: 03/24/17 07:31 Last Admin: 03/24/17 08:30 Dose: Not Given Non-Admin Reason: Patient Refused Sodium Polystyrene Sulfonate (Kayexalate Susp) 30 gm PO ONCE ONE Stop: 03/28/17 09:33 Last Admin: 03/28/17 10:17 Dose: 30 gm Succinylcholine Chloride (Quelicin) 100 mg IV STAT STA Stop: 03/22/17 00:23 Last Admin: 03/21/17 23:02 Dose: 100 mg eMAR Start Stop Document 03/21/17 23:02 RD (Rec: 03/22/17 01:27 RD [email or web address] Intravenous Solution Start Date 03/21/17 Start Time 23:02 End Date 12/05/17 End time 23:06 Total Infusion Time 4 Succinylcholine Chloride (Quelicin) 100 mg IV STAT STA Stop: 03/22/17 00:24 Last Admin: 03/21/17 23:30 Dose: 100 mg eMAR Start Stop Document 03/21/17 23:30 RD (Rec: 03/22/17 01:28 RD [email or web address]) Intravenous Solution Start Date 03/21/17 Start Time 23:30 End Date 03/21/17 End time 23:34 Total Infusion Time 4 Terbutaline Sulfate (Brethine Inj) 0.25 mg SC STAT STA Stop: 03/21/17 21:45 Last Admin: 03/21/17 22:15 Dose: 0.25 mg Subcutaneous Administrations Document 03/21/17 22:15 EQ (Rec: 03/21/17 22:15 EQ [id number]) Injection Site MAR Injection Site Left Abdomen Charges for Administration # of Subcutaneous Administrations 1 Thiamine HCl (Vitamin B1 Tab) 100 mg PO DAILY REPLACED BY [facility] Last Admin: 03/30/17 10:19 Dose: 100 mg Trazodone HCl (Desyrel) 50 mg PO ONCE STA Stop: 03/23/17 23:04 Last Admin: 03/23/17 23:30 Dose: 50 mg Trazodone HCl (Desyrel) 50 mg PO ONCE ONE Stop: 03/24/17 21:29 Last Admin: 03/24/17 21:45 Dose: 50 mg Trazodone HCl (Desyrel) 50 mg PO HS REPLACED BY [facility] Last Admin: 03/29/17 23:02 Dose: 50 mg Disposition/Present on Arrival - Present on Arrival Any Indicators Present on Arrival: No History of DVT/PE: No History of Uncontrolled Diabetes: No Urinary Catheter: No History of Decub. Ulcer: No History Surgical Site Infection Following: None - Disposition Have Diagnosis and Disposition been Completed?: Yes Diagnosis: COPD exacerbation, Status asthmaticus with COPD (chronic obstructive pulmonary disease) Disposition: HOSPITALIZED Disposition Time: 23:35 Patient Plan: Admission Condition: CRITICAL
[2017-03-21 20:03] LABS: VENOUS BLOOD GAS BASE EXCESS 9.7 mmol/L (0.0-2.0); VENOUS BLOOD PH 7.47 (7.32-7.43)
[2017-03-21 20:07] LABS: ALB/GLOB RATIO 1.2 (1.1-1.8); ALKALINE PHOSPHATASE 91 U/L (38-126); ALT/SGPT 87 U/L (7-56); AST/SGOT 48 U/L (14-36); BILIRUBIN,TOTAL 0.8 mg/dL (0.2-1.3); BLOOD UREA NITROGEN 5 mg/dL (7-21); CALCIUM 8.2 mg/dL (8.4-10.5); CARBON DIOXIDE 34 mmol/L (21-33); CHLORIDE 91 mmol/L (98-107); GFR AFRICAN-AMERICAN > 60; GLUCOSE,RANDOM 132 mg/dL (70-110); SODIUM 136 mmol/L (132-148); TOTAL PROTEIN 6.6 g/dL (5.8-8.3)
[2017-03-21 20:09] LABS: TROPONIN I < 0.01 ng/mL
[2017-03-21] MEDS ORDERED: Potassium Chloride 40 mEq/30 ml LIQ UD PO STA (20:59)
[2017-03-21 21:55] LABS: URINE BILIRUBIN NEGATIVE (NEGATIVE); URINE BLOOD MODERATE (NEGATIVE); URINE GLUCOSE (UA) NEGATIVE (NEGATIVE); URINE KETONE NEGATIVE (NEGATIVE); URINE LEUKOCYTE ESTERASE TRACE Leu/uL (NEGATIVE); URINE PROTEIN NEGATIVE mg/dL (<30 mg/dL); URINE UROBILINOGEN 0.2 E.U./dL (<1 E.U./dL)
[2017-03-21 21:56] LABS: URINE APPEARANCE CLEAR (CLEAR); URINE COLOR YELLOW (YELLOW)
[2017-03-21 21:59] LABS: URINE RBC 15 - 20 /hpf (0-2)
[2017-03-21 22:00] LABS: URINE AMORPHOUS SEDIMENT FEW; URINE BACTERIA MOD (NEG)
[2017-03-21 22:37] LABS: ARTERIAL BLOOD GAS HCO3 33.5 mmol/L (21-28); ARTERIAL BLOOD GAS O2 CAPACITY 19.6 mL/dl (16-24); ARTERIAL BLOOD GAS O2 CONTENT 19.5 ML/dl (15-23); ARTERIAL BLOOD GAS PH 7.32 (7.35-7.45); ARTERIAL BLOOD HGB O2 SAT 96.2 % (95.0-98.0); CARBOXYHEMOGLOBIN 2.8 % (0.5-1.5); HHB 0.3 % (0-5); METHEMOGLOBIN 0.7 % (0.0-3.0)
[2017-03-21] MEDS ORDERED: Succinylcholine 200 mg/10 ml Inj IV ONE (22:54)
[2017-03-21] MEDS ORDERED: Propofol 10 mg/ml 1,000 MG/100 ML VIAL ONE (23:03)
[2017-03-21] MEDS ORDERED: Midazolam 2 MG/2 ML VIAL ONE (23:29)
[2017-03-22] MEDS: Propofol 10 mg/ml 1,000 MG/100 ML VIAL IV PRN ×2 (00:10→03:40)
[2017-03-22] MEDS ORDERED: Fentanyl 1000mcg/100ml NS 1,000 MCG/100 ML BAG IV PRN (00:17)
[2017-03-22] MEDS ORDERED: Succinylcholine 200 mg/10 ml Inj IV STA ×2 (00:22→00:23)
[2017-03-22] MEDS ORDERED: Etomidate 20 mg/10ml Inj IVP STA (00:25)
[2017-03-22] MEDS ORDERED: Sodium Chloride 0.9% 1,000 ML IV STA (00:29)
[2017-03-22] MEDS ORDERED: Midazolam 2 MG/2 ML VIAL ONE (00:30)
[2017-03-22] MEDS ORDERED: Potassium Chloride 20 mEq/15 ml LIQ UD PO STA (00:52)
[2017-03-22] MEDS ORDERED: Multivitamin (MVI) 10 ML, Thiamine 100 MG, Folic Acid 1 MG in Sodium Chloride 0.9% 1,00... IV ONE (00:55)
[2017-03-22] MEDS ORDERED: Sodium Chloride 0.9% 1,000 ML IV SCH (01:00)
[2017-03-22 02:06] LABS: VENOUS BLOOD GAS BASE EXCESS 3.6 mmol/L (0.0-2.0); VENOUS BLOOD PH 7.37 (7.32-7.43)
--- NOTE | 2017-03-22 02:26 | CP.PCM.CON ---
<Lopez Morales - Last Filed: 03/22/17 03:17> History of Present Illness - History of Present Illness History of Present Illness: Lopez Morales D.O. PGY-2, Critical Care Consultation 46 year old female with a PMH of COPD, asthma, alcohol and heroin abuse, and hepatitis C who presented to [facility] [place] with complaints of SOB for about 3 days. Patient was seen and examined at bedside. Patient was seen and examined shortly after intubation and so a more thorough history could not be obtained. Patient was brought in by EMS with complaints of productive sputum and mucous production associated with chest tightness and wheezing. Patient had worsening SOB in the ER, so much so that she started to tire out and was intubated to maintain her airway. Other information only able to be obtained by chart. PMH: as above PSH: appendectomy, tonsillectomy SH: 1/2ppd x 30+ years, multiple alcohol drinks daily, unknown if recent heroin relapses FH: unobtainable Meds: reviewed Allergies: NKA Review of Systems - Review of Systems Systems not reviewed;Unavailable: Intubated Past Patient History - Infectious Disease Hx of Infectious Diseases: None - Tetanus Immunizations Tetanus Immunization: Unknown - Past Medical History & Family History Past Medical History?: Yes - Past Social History Smoking Status: Heavy Smoker > 10 Cigarettes Daily - CARDIAC Hx Cardiac Disorders: No Hx Hypertension: Yes - PULMONARY Hx Respiratory Disorders: Yes Hx Chronic Obstructive Pulmonary Disease (COPD): Yes - NEUROLOGICAL HX Cerebrovascular Accident: No - HEENT Hx HEENT Problems: No - RENAL Hx Chronic Kidney Disease: No - ENDOCRINE/METABOLIC Hx Hypothyroidism: Yes - HEMATOLOGICAL/ONCOLOGICAL Hx Blood Disorders: Yes Hx Hepatitis C: Yes - INTEGUMENTARY Hx Dermatological Problems: Yes Other/Comment: skin bruising - MUSCULOSKELETAL/RHEUMATOLOGICAL Hx Falls: Yes (fell 2 wks ago) - GASTROINTESTINAL Hx Gastrointestinal Disorders: Yes Hx Pancreatitis: (pt denies pancreatitis) Other/Comment: Umbilical hernia /cirrhosis/ distended abd - GENITOURINARY/GYNECOLOGICAL Hx Genitourinary Disorders: No Hx Sexually Transmitted Disorders: (pt denies trichomonas) - PSYCHIATRIC Hx Psychophysiologic Disorder: Yes Hx Anxiety: Yes Hx Depression: Yes Hx Substance Use: Yes (former) Other/Comment: alcohol drinks 4 or 5 24 oz cans of 4-frances a day, 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 - ANESTHESIA Hx Anesthesia: Yes Hx Anesthesia Reactions: No Hx Malignant Hyperthermia: No Meds Allergies/Adverse Reactions: Allergies Allergy/AdvReac Type Severity Reaction Status Date / Time No Known Allergies Allergy Verified 03/21/17 19:11 - Medications Medications: Current Medications Albuterol/Ipratropium (Duoneb 3 Mg/0.5 Mg (3 Ml) Ud) 3 ml IH [id number] Enoxaparin Sodium (Lovenox) 40 mg SC DAILY [facility] PRN Reason: Protocol Fentanyl Citrate (Fentanyl Citrate/Sodium Chloride 1 Mg/100 Ml) 1,000 mcg in 100 mls @ 2 mls/hr IV .Q24H PRN; Protocol; 20 MCG/HR PRN Reason: TITRATE PER MD ORDER Stop: 03/23/17 23:59 Propofol (Diprivan) 1,000 mg in 100 mls @ 2.585 mls/hr IV .Q24H PRN; Protocol; 5 MCG/KG/MIN PRN Reason: TITRATE PER MD ORDER Last Admin: 03/22/17 00:10 Dose: 30 mcg/kg/min, 15.513 mls/hr Ceftriaxone Sodium (Rocephin 2 Gm Ivpb) 2 gm in 100 mls @ 100 mls/hr IVPB DAILY [facility] PRN Reason: Protocol Azithromycin 250 mg/ Sodium (Chloride) 250 mls @ 167 mls/hr IVPB DAILY [facility] PRN Reason: Protocol Stop: 03/26/17 10:01 Sodium Chloride (Sodium Chloride 0.9%) 1,000 mls @ 100 mls/hr IV .Q10H JACK Methylprednisolone (Solu-Medrol) 40 mg IVP Q12 JACK Pantoprazole Sodium (Protonix Inj) 40 mg IVP DAILY [facility] Physical Exam - Constitutional Appears: Chronically Ill - Head Exam Head Exam: ATRAUMATIC, NORMOCEPHALIC - Eye Exam Eye Exam: EOMI, PERRL. absent: Scleral icterus - ENT Exam ENT Exam: Mucous Membranes Moist, Normal Oropharynx - Neck Exam Neck exam: Positive for: Normal Inspection. Negative for: Tenderness - Respiratory Exam Respiratory Exam: Wheezes - Cardiovascular Exam Cardiovascular Exam: RRR, +S1, +S2 - GI/Abdominal Exam GI & Abdominal Exam: Normal Bowel Sounds, Soft. absent: Distended, Tenderness - Extremities Exam Extremities exam: Negative for: calf tenderness, pedal pulses present - Neurological Exam Neurological exam: Alert, Oriented x3 - Skin Skin Exam: Dry, Warm Results - Vital Signs Recent Vital Signs: Last Vital Signs Temp 98.5 F 03/21/17 19:46 Pulse 115 H 03/22/17 02:05 Resp 20 03/22/17 02:05 BP 113/71 03/22/17 02:05 Pulse Ox 96 03/22/17 02:05 - Labs Result Diagrams: 03/21/17 19:25 03/21/17 19:25 Labs: Laboratory Results - last 24 hr 03/22/17 01:30 pO2 129 H VBG pH 7.37 VBG pCO2 52.0 VBG HCO3 30.1 H VBG Total CO2 31.7 H VBG O2 Sat (Calc) 99.1 H VBG Base Excess 3.6 H VBG Potassium 3.5 L Sodium 138.0 Chloride 99.0 Glucose 262 H Lactate 3.1 H FiO2 21.0 Venous Blood Potassium 3.5 L Assessment & Plan - Assessment and Plan (Free Text) Assessment: 46 year old female with a PMH of COPD, asthma, alcohol and heroin abuse, and hepatitis C who presented to [facility] [place] with complaints of SOB for about 3 days, intubated for impending respiratory failure current being managed for HCAP Plan: Neurological Nonfocal, no acute deficits GCS 11T Continue to monitor Cardiovascular HD stable No acute findings On monitor in ICU Pulmnologic HCAP in the setting of asthma and COPD Started on ceftriaxone and azithromycin Day 1 On solumedrol 40mg IVP Q12h Intubated due to impending failure as noted on gas and clinically, PRVC 400/16/5 /40% Continue nebs q4h Daily weaning trials Oral care On propofol and versed gtt for sedation Daily sedation vacation Repeat ABG in the am GI On GI ppx with PPI NPO at this time NGT in place given distension from mask ventilation Nephro/electrolytes Repleted electrolytes Repeat CMP in the am ID CAP on ceftriaxone and azithromycin Leukocytosis but afebrile and on steroids Heme Leukocytosis but on steroids both at home and during multiple ER visists Will monitor GI/DVT ppx: protonix/lovenox Patient was seen and examined and case was discussed at length with attending physician - Date & Time Date: 03/22/17 Time: 01:45 <AlejandraChrist Q - Last Filed: 03/22/17 07:04> Meds - Medications Medications: Current Medications Albuterol/Ipratropium (Duoneb 3 Mg/0.5 Mg (3 Ml) Ud) 3 ml IH [id number] [facility] Last Admin: 03/22/17 05:23 Dose: 3 ml Chlorhexidine Gluconate (Peridex) 15 ml PO BID JACK Enoxaparin Sodium (Lovenox) 40 mg SC DAILY [facility] PRN Reason: Protocol Fentanyl Citrate (Fentanyl Citrate/Sodium Chloride 1 Mg/100 Ml) 1,000 mcg in 100 mls @ 2 mls/hr IV .Q24H PRN; Protocol; 20 MCG/HR PRN Reason: TITRATE PER MD ORDER Stop: 03/23/17 23:59 Last Admin: 03/22/17 03:27 Dose: 20 mcg/hr, 2 mls/hr Propofol (Diprivan) 1,000 mg in 100 mls @ 2.585 mls/hr IV .Q24H PRN; Protocol; 5 MCG/KG/MIN PRN Reason: TITRATE PER MD ORDER Last Admin: 03/22/17 03:40 Dose: 30 mcg/kg/min, 15.513 mls/hr Ceftriaxone Sodium (Rocephin 2 Gm Ivpb) 2 gm in 100 mls @ 100 mls/hr IVPB DAILY [facility] PRN Reason: Protocol Azithromycin 250 mg/ Sodium (Chloride) 250 mls @ 167 mls/hr IVPB DAILY [facility] PRN Reason: Protocol Stop: 03/26/17 10:01 Sodium Chloride (Sodium Chloride 0.9%) 1,000 mls @ 100 mls/hr IV .Q10H [facility] Last Admin: 03/22/17 03:47 Dose: Not Given Methylprednisolone (Solu-Medrol) 40 mg IVP Q12 JACK Pantoprazole Sodium (Protonix Inj) 40 mg IVP DAILY [facility] Results - Vital Signs Recent Vital Signs: Last Vital Signs Temp 98.8 F 03/22/17 04:10 Pulse 95 H 03/22/17 04:10 Resp 18 03/22/17 04:10 BP 113/71 03/22/17 02:05 Pulse Ox 99 03/22/17 04:01 - Labs Result Diagrams: 03/21/17 19:25 03/21/17 19:25 Labs: Laboratory Results - last 24 hr 03/22/17 01:30 pO2 129 H VBG pH 7.37 VBG pCO2 52.0 VBG HCO3 30.1 H VBG Total CO2 31.7 H VBG O2 Sat (Calc) 99.1 H VBG Base Excess 3.6 H VBG Potassium 3.5 L Sodium 138.0 Chloride 99.0 Glucose 262 H Lactate 3.1 H FiO2 21.0 Venous Blood Potassium 3.5 L Attending/Attestation - Attestation I have personally seen and examined this patient.: Yes I have fully participated in the care of the patient.: Yes I have reviewed all pertinent clinical information: Yes Notes (Text): 03/22/17 07:01 I agree with the above mentioned note and exam by the resident with the addition /exception of the followin46 y/o female with PMHx as listed above comes to the ED in respiratory distress and required intubation with mechanical ventilation for status asthmaticus and her tiring out being unable to protect her airway. Patient is on mechanical ventilation along with receiving IV abx for HAP and nebulizer/steroids. She will be assessed daily to determine when she is ready to come off the ventilator all labs and images available thus far have been reviewed personally case discussed at length with Dr. Cortes in the ED total time of care: greater than 40 minutes
[2017-03-22] MEDS: Albuterol-Ipratrop 3 mg / 0.5 (3 ml) UD IH SCH ×3 (05:23→11:00)
[2017-03-22 06:46] LABS: VENOUS BLOOD GAS BASE EXCESS 7.4 mmol/L (0.0-2.0); VENOUS BLOOD PH 7.47 (7.32-7.43)
[2017-03-22 06:47] LABS: BASO # 0.01 K/mm3 (0.0-2.0); BASO % 0.1 % (0.0-3.0); GRAN # 12.71 (1.4-6.5); GRAN % 91.8 % (50.0-68.0); HEMATOCRIT 37.1 % (36.0-48.0); LYMPH # 0.7 (1.2-3.4); LYMPH % 5.2 % (22.0-35.0); MEAN CELL VOLUME 96.6 fl (80.0-105.0); MEAN CORPUSCULAR HGB CONC 33.2 g/dl (31.0-37.0); MEAN PLATELET VOLUME 9.9 fl (7.0-11.0); MONO # 0.4 (0.1-0.6); MONO % 2.9 % (1.0-6.0); PLATELET COUNT 327 10^3/uL (120.0-450.0); RED CELL DISTRIBUTION WIDTH 14.3 % (11.5-14.5); WHITE BLOOD COUNT 13.8 10^3/ul (4.5-11.0)
[2017-03-22 07:52] LABS: ALB/GLOB RATIO 1.1 (1.1-1.8); ALKALINE PHOSPHATASE 92 U/L (38-126); ALT/SGPT 106 U/L (7-56); AST/SGOT 85 U/L (14-36); BILIRUBIN,TOTAL 0.6 mg/dL (0.2-1.3); BLOOD UREA NITROGEN 5 mg/dL (7-21); CALCIUM 7.5 mg/dL (8.4-10.5); CARBON DIOXIDE 29 mmol/L (21-33); CHLORIDE 102 mmol/L (98-107); GFR AFRICAN-AMERICAN > 60; GLUCOSE,RANDOM 190 mg/dL (70-110); POTASSIUM 3.9 mmol/L (3.6-5.0); SODIUM 138 mmol/L (132-148); TOTAL PROTEIN 5.7 g/dL (5.8-8.3)
[2017-03-22 08:19] LABS: ARTERIAL BLOOD GAS HCO3 29.8 mmol/L (21-28); ARTERIAL BLOOD GAS PH 7.42 (7.35-7.45); ATERIAL BLOOD GAS PEEP 5
[2017-03-22] MEDS ORDERED: Albuterol-Ipratrop 3 mg / 0.5 (3 ml) UD IH STA (08:54)
[2017-03-22 09:03] LABS: ANISOCYTOSIS SLIGHT; BAND 3 % (0-2); NEUTROPHIL 90 % (50.0-70.0); PLATELET ESTIMATE NORMAL (NORMAL)
[2017-03-22] MEDS: Enoxaparin 40 mg Syringe SC SCH (09:19)
[2017-03-22] MEDS: Chlorhexidine 0.12% Oral Sol 480 ml Bot PO SCH ×2 (09:20→17:03)
[2017-03-22] MEDS: MethylPREDNISolone 40 mg Vial IVP SCH ×2 (09:21→21:31)
--- NOTE | 2017-03-22 09:38 | RAD ---
HISTORY: ASTHMA EXACERBATION COMPARISON: 03/12/2017 FINDINGS: LUNGS: No active pulmonary disease. PLEURA: No significant pleural effusion identified, no pneumothorax apparent. CARDIOVASCULAR: Normal. OSSEOUS STRUCTURES: No significant abnormalities. VISUALIZED UPPER ABDOMEN: Normal. OTHER FINDINGS: None. IMPRESSION: No active disease.
--- NOTE | 2017-03-22 09:43 | RAD ---
HISTORY: s/p ngt/et placement COMPARISON: No prior. FINDINGS: LUNGS: No active pulmonary disease. PLEURA: No significant pleural effusion identified, no pneumothorax apparent. CARDIOVASCULAR: Normal. OSSEOUS STRUCTURES: No significant abnormalities. VISUALIZED UPPER ABDOMEN: Normal. OTHER FINDINGS: The endotracheal and nasogastric tubes are in satisfactory position IMPRESSION: No active disease.
[2017-03-22] MEDS ORDERED: cefTRIAXone 2 GM IN NS 2 GM/100 ML BAG IVPB SCH (10:00)
[2017-03-22] MEDS ORDERED: Azithromycin 250 MG in Sodium Chloride 0.9% 250 ML IVPB SCH (10:00)
--- NOTE | 2017-03-22 10:41 | CP.PCM.PN ---
<Tahir Schutser - Last Filed: 03/22/17 10:44> Subjective - Date & Time of Evaluation Date of Evaluation: 03/22/17 Time of Evaluation: 10:38 - Subjective Subjective: ICU progress note - Luther Sheltonmaryannerin PGY2 Patient seen and examined at bedside this morning. ABG was reviewed and she tolerated PS trial. She was successfully extubated and is saturating >90% on 5L NC. Will continue with Abx, steroid taper, CIWA protocol, thiamine/folate/ multivitamin. Denies chest pain, palpitations, focal weakness, numbness, tingling. Objective - Vital Signs/Intake and Output Vital Signs (last 24 hours): Temp Pulse Resp BP Pulse Ox 99.7 F H 102 H 21 135/78 96 03/22/17 08:41 03/22/17 08:41 03/22/17 08:40 03/22/17 08:00 03/22/17 08:41 Intake and Output: 03/22/17 03/22/17 06:59 18:59 Intake Total 100 70 Balance 100 70 - Medications Medications: Current Medications Albuterol/Ipratropium (Duoneb 3 Mg/0.5 Mg (3 Ml) Ud) 3 ml IH [id number] [facility] Last Admin: 03/22/17 07:28 Dose: 3 ml Chlorhexidine Gluconate (Peridex) 15 ml PO BID [facility] Last Admin: 03/22/17 09:20 Dose: 1 applic Doxycycline Hyclate (Doryx) 100 mg PO Q12 [facility] PRN Reason: Protocol Stop: 03/31/17 10:01 Enoxaparin Sodium (Lovenox) 40 mg SC DAILY [facility] PRN Reason: Protocol Last Admin: 03/22/17 09:19 Dose: 40 mg Fentanyl Citrate (Fentanyl Citrate/Sodium Chloride 1 Mg/100 Ml) 1,000 mcg in 100 mls @ 2 mls/hr IV .Q24H PRN; Protocol; 20 MCG/HR PRN Reason: TITRATE PER MD ORDER Stop: 03/23/17 23:59 Last Admin: 03/22/17 03:27 Dose: 20 mcg/hr, 2 mls/hr Propofol (Diprivan) 1,000 mg in 100 mls @ 2.585 mls/hr IV .Q24H PRN; Protocol; 5 MCG/KG/MIN PRN Reason: TITRATE PER MD ORDER Last Titration: 03/22/17 07:40 Dose: 0 mcg/kg/min, 0 mls/hr Sodium Chloride (Sodium Chloride 0.9%) 1,000 mls @ 100 mls/hr IV .Q10H [facility] Last Admin: 03/22/17 03:47 Dose: Not Given Cefepime HCl (Maxipime 1gm) 1 gm in 100 mls @ 100 mls/hr IVPB Q8 [facility] PRN Reason: Protocol Stop: 03/31/17 14:01 Methylprednisolone (Solu-Medrol) 40 mg IVP Q12 [facility] Last Admin: 03/22/17 09:21 Dose: 40 mg Pantoprazole Sodium (Protonix Inj) 40 mg IVP DAILY [facility] Last Admin: 03/22/17 09:20 Dose: 40 mg - Labs Labs: 03/22/17 06:00 03/22/17 06:00 PT 10.3 SECONDS (9.4-12.5) 03/21/17 19:25 INR 0.95 (0.93-1.08) 03/21/17 19:25 APTT 25.1 Seconds (25.1-36.5) 03/21/17 19:25 - Constitutional Appears: Chronically Ill - Head Exam Head Exam: ATRAUMATIC, NORMOCEPHALIC - Eye Exam Eye Exam: EOMI Pupil Exam: PERRL - ENT Exam ENT Exam: Mucous Membranes Moist - Neck Exam Neck Exam: Normal Inspection. absent: Lymphadenopathy, Tenderness, Thyromegaly - Respiratory Exam Respiratory Exam: Wheezes. absent: Decreased Breath Sounds, Rales, Rhonchi Additional comments: wheezing and crackles most audible at the bases, L > R - Cardiovascular Exam Cardiovascular Exam: RRR, +S1, +S2. absent: Gallop, Rubs - GI/Abdominal Exam GI & Abdominal Exam: Soft. absent: Distended, Firm, Guarding, Rigid, Tenderness , Rebound - Neurological Exam Neurological Exam: Alert, Awake, CN II-XII Intact, Oriented x3 - Psychiatric Exam Psychiatric exam: Anxious - Skin Skin Exam: Dry, Intact, Normal Color, Warm Assessment and Plan - Assessment and Plan (Free Text) Plan: 46yo female with history of asthma, COPD, hepatitis C, cirrhosis, alcohol and heroine abuse presented to [facility] [place] with c/o dyspnea ultimately requiring intubated for impending respiratory failure Neuro: -Awake, alert, oriented x3; nonfocal -Maintain normothermia Cardio: -Hemodynamically stable, continue to monitor and maintain MAP > 65 Pulm: -Presented to the ED in respiratory distress thought to be secondary to COPD/ Asthma exacerbation ultimately requiring intubation for impending respiratory failure -ABG this morning reviewed and patient tolerated PS trial; Extubated successfully and saturating >90% on 5LNC -Will continue with anticholinergics, bronchodilators, steroid taper -Continue antibiotics per ID recommendations; cefepime and doxycycline -Oral care -HOB > 30 GI: -Protonix for GI prophylaxis -Will advance diet as tolerated Nephro: -Monitor and correct electrolyte abnormalities as indicated Endo: -Advance diet as tolerated -Maintain euglycemia with goal BS between 140-180 ID: -afebrile, leukocytosis however on steroids -Continue cefepime and doxycyline as per ID recommendations -F/U cultures -Procalcitonin GI/DVT ppx: protonix/lovenox Patient seen and case discussed/reviewed with attending, Dr. Garland <Joseph Garland - Last Filed: 03/22/17 11:10> Objective - Vital Signs/Intake and Output Vital Signs (last 24 hours): Temp Pulse Resp BP Pulse Ox 99.9 F H 94 H 18 120/73 97 03/22/17 10:40 03/22/17 10:40 03/22/17 10:40 03/22/17 10:00 03/22/17 10:40 Intake and Output: 03/22/17 03/22/17 06:59 18:59 Intake Total 100 70 Balance 100 70 - Medications Medications: Current Medications Albuterol/Ipratropium (Duoneb 3 Mg/0.5 Mg (3 Ml) Ud) 3 ml IH [id number] [facility] Last Admin: 03/22/17 11:00 Dose: 3 ml Chlorhexidine Gluconate (Peridex) 15 ml PO BID [facility] Last Admin: 03/22/17 09:20 Dose: 1 applic Doxycycline Hyclate (Doryx) 100 mg PO Q12 [facility] PRN Reason: Protocol Stop: 03/31/17 10:01 Enoxaparin Sodium (Lovenox) 40 mg SC DAILY [facility] PRN Reason: Protocol Last Admin: 03/22/17 09:19 Dose: 40 mg Folic Acid (Folic Acid) 1 mg PO DAILY [facility] Cefepime HCl (Maxipime 1gm) 1 gm in 100 mls @ 100 mls/hr IVPB Q8 [facility] PRN Reason: Protocol Stop: 03/31/17 14:01 Lorazepam (Ativan) 1 mg IVP Q1H PRN; Protocol PRN Reason: Symptoms of alcohol withdrawl Methylprednisolone (Solu-Medrol) 40 mg IVP Q12 [facility] Last Admin: 03/22/17 09:21 Dose: 40 mg Multivitamins (Thera Tab) 1 tab PO 0800 JACK Pantoprazole Sodium (Protonix Inj) 40 mg IVP DAILY [facility] Last Admin: 03/22/17 09:20 Dose: 40 mg Thiamine HCl (Vitamin B1 Tab) 100 mg PO DAILY [facility] - Labs Labs: 03/22/17 06:00 03/22/17 06:00 PT 10.3 SECONDS (9.4-12.5) 03/21/17 19:25 INR 0.95 (0.93-1.08) 03/21/17 19:25 APTT 25.1 Seconds (25.1-36.5) 03/21/17 19:25 Assessment and Plan - Assessment and Plan (Free Text) Plan: Patient seen and examined on rounds with resident, agree with note, with following additions/exceptions: Pt is 46yo female with PMhx of polysubstance abuse, including heroin, cocaine, and EtOH a/w resp failure, asthma exacerbation. Pt was placed on PS trial earlier this morning, awake, alert, following commands, RSBI 40-50, successfully extubated to CT, doing well, denies fever, chills, chest pain, sob. Endorses dry non productive cough. No wheezing on exam. Asthma Exacerbation Resp failure, s/p extubation Hep C Cirrhosis Recommend: - cont with supp o2 as needed - duonebs prn q4hr - Solumedrol 40mg Q12hr IV - Antibiotcs as per ID - FS control - RUQ jared - CIWA protocol - Thiamine, Folic Acid, MVT - monitor for signs symptoms of opiate withdrawal - GI ppx - DVT ppx - monitor in MICU
--- NOTE | 2017-03-22 10:48 | RAD ---
HISTORY: evaluate lung dean; pt is intubated COMPARISON: Earlier same day FINDINGS: LUNGS: No active pulmonary disease. PLEURA: No significant pleural effusion identified, no pneumothorax apparent. CARDIOVASCULAR: Normal. OSSEOUS STRUCTURES: No significant abnormalities. VISUALIZED UPPER ABDOMEN: Normal. OTHER FINDINGS: The endotracheal and nasogastric tubes are in satisfactory position IMPRESSION: No active disease.
[2017-03-22] MEDS: Multivitamin Therapeutic Tab PO SCH (11:31)
--- NOTE | 2017-03-22 11:38 | US ---
HISTORY: inc LFTS COMPARISON: None. TECHNIQUE: Sonographic evaluation of the abdomen. FINDINGS: LIVER: Measures 16.1 cm. Top-normal size. Diffuse increased echogenicity of the liver parenchyma. No mass. No intrahepatic bile duct dilatation. GALLBLADDER: Gallstones -some appear large in the gallbladder neck no gallbladder wall thickening or pericholecystic fluid. No sonographic Keenan sign elicited per technologist COMMON BILE DUCT: Measures 4.5 mm. No stones. No dilatation. PANCREAS: Unremarkable as visualized. No mass. No ductal dilatation. RIGHT KIDNEY: Measures 11.9 x 4.8 x 5.7cm. Normal echogenicity. No calculus, mass, or hydronephrosis. LEFT KIDNEY: Measures 12.2 x 5.5 x 6.2cm. Normal echogenicity. No calculus, mass, or hydronephrosis. SPLEEN: Normal in size and contour. No mass. AORTA: No aneurysmal dilatation. IVC: Unremarkable. OTHER FINDINGS: None. IMPRESSION: Diffuse increased echogenicity throughout the liver-hepatic steatosis versus other hepatic parenchymal pathologies compatible with this. No liver lesions. No dilated ducts. Gallstones -some large in the gallbladder neck. No ancillary signs of cholecystitis. Clinical follow-up recommended. No dilated ducts
--- NOTE | 2017-03-22 13:47 | CARD ---
APPROVED REPORT EKG Measurement Heart [id number] <Conclusion> Sinus tachycardia Otherwise normal ECG
[2017-03-22] MEDS: Cefepime 1gm in NS 100ml 1 GM/100 ML BAG IVPB SCH ×2 (14:05→22:16)
--- NOTE | 2017-03-22 15:32 | CP.PCM.HP ---
<Joe Mathur - Last Filed: 03/22/17 16:00> History of Present Illness - History of Present Illness History of Present Illness: This is a 46 year old female with a past medical history of COPD, asthma, alcohol and heroin abuse, and hepatitis C who comes in to the emergency department after complaining of shortness of breath for the past 3 days. The patient was brought in by the EMS who reported she complained of a productive sputum and mucous production that was in conjunction with chest tightness nad wheezing. Patient breathing became labored in the emergency department and as a result she was intubated to maintain her airway. Remainder of ROS unobtainable due to intubation status. Past medical history: Per HPI Past surgical history: Appendectomy, Tonsillectomy Social history: 1/2 ppd [id number], Drinks alcohol daily. Past history of heroin abuse Family history: Unobtainable: Medications: See MAR Allergies: NKDA Present on Admission - Present on Admission Any Indicators Present on Admission: No Review of Systems - Constitutional Constitutional: As Per HPI - EENT Eyes: As Per HPI Ears: As Per HPI Nose/Mouth/Throat: As Per HPI - Cardiovascular Cardiovascular: As Per HPI - Respiratory Respiratory: As Per HPI - Gastrointestinal Gastrointestinal: As Per HPI - Genitourinary Genitourinary: As Per HPI - Musculoskeletal Musculoskeletal: As Per HPI - Integumentary Integumentary: As Per HPI - Neurological Neurological: As Per HPI - Psychiatric Psychiatric: As Per HPI - Endocrine Endocrine: As Per HPI Past Patient History - Infectious Disease Hx of Infectious Diseases: None - Tetanus Immunizations Tetanus Immunization: Unknown - Past Medical History & Family History Past Medical History?: Yes - Past Social History Smoking Status: Smoker Currrent Status Unknown - CARDIAC Hx Cardiac Disorders: No Hx Hypertension: Yes - PULMONARY Hx Respiratory Disorders: Yes Hx Chronic Obstructive Pulmonary Disease (COPD): Yes - NEUROLOGICAL HX Cerebrovascular Accident: No - HEENT Hx HEENT Problems: No - RENAL Hx Chronic Kidney Disease: No - ENDOCRINE/METABOLIC Hx Hypothyroidism: Yes - HEMATOLOGICAL/ONCOLOGICAL Hx Blood Disorders: Yes Hx Hepatitis C: Yes - INTEGUMENTARY Hx Dermatological Problems: Yes Other/Comment: skin bruising - MUSCULOSKELETAL/RHEUMATOLOGICAL Hx Falls: Yes (fell 2 wks ago) - GASTROINTESTINAL Hx Gastrointestinal Disorders: Yes Hx Pancreatitis: (pt denies pancreatitis) Other/Comment: Umbilical hernia /cirrhosis/ distended abd - GENITOURINARY/GYNECOLOGICAL Hx Genitourinary Disorders: No Hx Sexually Transmitted Disorders: (pt denies trichomonas) - PSYCHIATRIC Hx Psychophysiologic Disorder: Yes Hx Anxiety: Yes Hx Depression: Yes Other/Comment: alcohol drinks 4 or 5 24 oz cans of 4-frances a day, 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 - ANESTHESIA Hx Anesthesia: Yes Hx Anesthesia Reactions: No Hx Malignant Hyperthermia: No Meds Allergies/Adverse Reactions: Allergies Allergy/AdvReac Type Severity Reaction Status Date / Time No Known Allergies Allergy Verified 03/21/17 19:11 Physical Exam - Head Exam Head Exam: ATRAUMATIC, NORMAL INSPECTION, NORMOCEPHALIC - Eye Exam Eye Exam: EOMI, Normal appearance, PERRL Pupil Exam: NORMAL ACCOMODATION, PERRL - ENT Exam ENT Exam: Mucous Membranes Moist, Normal Exam - Neck Exam Neck exam: Positive for: Normal Inspection. Negative for: Lymphadenopathy, Thyromegaly - Respiratory Exam Respiratory Exam: Rhonchi, Wheezes. absent: Chest Wall Tenderness, Prolonged Expiratory Phase, Respiratory Distress - Cardiovascular Exam Cardiovascular Exam: REGULAR RHYTHM, +S1, +S2 - GI/Abdominal Exam GI & Abdominal Exam: Distended, Normal Bowel Sounds - Extremities Exam Extremities exam: Positive for: normal inspection. Negative for: full ROM, pedal edema - Back Exam Back exam: NORMAL INSPECTION. absent: CVA tenderness (L), CVA tenderness (R), paraspinal tenderness - Neurological Exam Neurological exam: Alert, CN II-XII Intact - Psychiatric Exam Psychiatric exam: Normal Affect, Normal Mood - Skin Skin Exam: Dry, Intact Results - Vital Signs Recent Vital Signs: Last Vital Signs Temp 99.7 F H 03/22/17 15:10 Pulse 95 H 03/22/17 15:10 Resp 30 H 03/22/17 15:10 BP 141/89 03/22/17 15:00 Pulse Ox 96 03/22/17 15:10 - Labs Result Diagrams: 03/22/17 06:00 03/22/17 06:00 Labs: Laboratory Results - last 24 hr 03/22/17 03/22/17 03/22/17 01:30 06:00 06:00 WBC 13.8 H D RBC 3.84 Hgb 12.3 Hct 37.1 MCV 96.6 MCH 32.0 MCHC 33.2 RDW 14.3 Plt Count 327 MPV 9.9 Gran % 91.8 H Lymph % (Auto) 5.2 L [place] % (Auto) 2.9 Eos % (Auto) 0.0 L Baso % (Auto) 0.1 Gran # 12.71 H Lymph # 0.7 L [place] # 0.4 Eos # 0.0 Baso # 0.01 Neutrophils % (Manual) 90 H Band Neutrophils % 3 H Lymphocytes % (Manual) 5 L Monocytes % (Manual) 2 Platelet Evaluation Normal Anisocytosis (manual) Slight pCO2 pO2 129 H HCO3 ABG pH ABG Total CO2 ABG O2 Saturation ABG Base Excess ABG Potassium VBG pH 7.37 VBG pCO2 52.0 VBG HCO3 30.1 H VBG Total CO2 31.7 H VBG O2 Sat (Calc) 99.1 H VBG Base Excess 3.6 H VBG Potassium 3.5 L Sodium 138.0 138 Chloride 99.0 102 Glucose 262 H Lactate 3.1 H FiO2 21.0 PEEP CPAP Potassium 3.9 Carbon Dioxide 29 Anion Gap 12 BUN 5 L Creatinine 0.4 L Est GFR ( Amer) > 60 Est GFR (Non-Af Amer) > 60 Random Glucose 190 H Calcium 7.5 L Total Bilirubin 0.6 AST 85 H D ALT 106 H Alkaline Phosphatase 92 Total Protein 5.7 L Albumin 3.0 Globulin 2.8 Albumin/Globulin Ratio 1.1 Arterial Blood Potassium Venous Blood Potassium 3.5 L Urine Opiates Screen Urine Methadone Screen Ur Barbiturates Screen Ur Phencyclidine Scrn Ur Amphetamines Screen U Benzodiazepines Scrn U Oth Cocaine Metabols U Cannabinoids Screen 03/22/17 03/22/17 03/22/17 06:00 07:25 08:10 WBC RBC Hgb Hct MCV MCH MCHC RDW Plt Count MPV Gran % Lymph % (Auto) [place] % (Auto) Eos % (Auto) Baso % (Auto) Gran # Lymph # [place] # Eos # Baso # Neutrophils % (Manual) Band Neutrophils % Lymphocytes % (Manual) Monocytes % (Manual) Platelet Evaluation Anisocytosis (manual) pCO2 46 H pO2 110 H 63.0 L HCO3 29.8 H ABG pH 7.42 ABG Total CO2 31.2 H ABG O2 Saturation 94.0 L ABG Base Excess 4.5 H ABG Potassium 3.8 VBG pH 7.47 H VBG pCO2 44.0 VBG HCO3 32.0 H VBG Total CO2 33.4 H VBG O2 Sat (Calc) 98.6 H VBG Base Excess 7.4 H VBG Potassium 3.8 Sodium 138.0 140.0 Chloride 103.0 107.0 Glucose 200 H 184 H Lactate 2.7 H 2.5 H FiO2 21.0 40.0 PEEP 5 CPAP 5 Potassium Carbon Dioxide Anion Gap BUN Creatinine Est GFR ( Amer) Est GFR (Non-Af Amer) Random Glucose Calcium Total Bilirubin AST ALT Alkaline Phosphatase Total Protein Albumin Globulin Albumin/Globulin Ratio Arterial Blood Potassium 3.8 Venous Blood Potassium 3.8 Urine Opiates Screen Positive H Urine Methadone Screen Negative Ur Barbiturates Screen Negative Ur Phencyclidine Scrn Negative Ur Amphetamines Screen Negative U Benzodiazepines Scrn Positive U Oth Cocaine Metabols Negative U Cannabinoids Screen Negative Assessment & Plan - Assessment and Plan (Free Text) Assessment: 46 year old female with a past medical history of COPD, asthma, alcohol and heroin abuse and hepatitis C who is being admitted for respiratory failure 2/2 COPD exacerbation. Plan: Neurological Nonfocal, no acute deficits GCS 11T Continue to monitor Cardiovascular HD stable No acute findings On monitor in ICU Pulmnologic CAP in the setting of asthma and COPD Continue ceftriaxone and azithromycin Day 1 Continue solumedrol 40mg IVP Q12h Patient tolerated weaning trial. Extubated. Now on 5L NC. Maintain SpO2 >92. Duonebs changed to Xopenox Repeat ABG in the am GI On GI ppx with PPI NPO at this time NGT in place given distension from mask ventilation Nephro/electrolytes Repleted electrolytes Will continue to monitor with serial CMP's. ID CAP on ceftriaxone and azithromycin Leukocytosis but afebrile and on steroids ID consulted. Will f/u with rec's. Heme Leukocytosis but on steroids both at home and during multiple ER visits Will monitor GI/DVT ppx: protonix/lovenox <Juli Louise B - Last Filed: 03/23/17 16:07> Results - Vital Signs Recent Vital Signs: Last Vital Signs Temp 99.5 F 03/23/17 11:28 Pulse 100 H 03/23/17 11:28 Resp 21 12/07/17 11:28 BP 155/97 H 03/23/17 11:28 Pulse Ox 92 L 03/23/17 11:28 - Labs Result Diagrams: 03/23/17 05:22 03/23/17 05:22 Labs: Laboratory Results - last 24 hr 03/22/17 03/23/17 03/23/17 09:52 05:22 05:22 WBC 24.2 H D RBC 3.80 Hgb 12.1 Hct 38.3 MCV 100.8 D MCH 31.8 MCHC 31.6 RDW 14.6 H Plt Count 316 MPV 10.7 Gran % 91.3 H Lymph % (Auto) 4.4 L [place] % (Auto) 4.2 Eos % (Auto) 0.0 L Baso % (Auto) 0.1 Gran # 22.12 H Lymph # 1.1 L [place] # 1.0 H Eos # 0.0 Baso # 0.02 pCO2 pO2 HCO3 ABG pH ABG Total CO2 ABG O2 Saturation ABG O2 Content ABG Base Excess ABG Hemoglobin ABG Carboxyhemoglobin POC ABG HHb (Measured) ABG Methemoglobin ABG O2 Capacity Hgb O2 Saturation FiO2 Sodium 139 Potassium 4.7 Chloride 103 Carbon Dioxide 35 H Anion Gap 6 L BUN 13 Creatinine 0.5 L Est GFR ( Amer) > 60 Est GFR (Non-Af Amer) > 60 Random Glucose 155 H Calcium 8.6 Total Bilirubin 0.6 AST 50 H D ALT 93 H Alkaline Phosphatase 76 Total Protein 5.9 Albumin 3.1 Globulin 2.8 Albumin/Globulin Ratio 1.1 Lipase Procalcitonin 0.10 L 03/23/17 03/23/17 05:22 06:00 WBC RBC Hgb Hct MCV MCH MCHC RDW Plt Count MPV Gran % Lymph % (Auto) [place] % (Auto) Eos % (Auto) Baso % (Auto) Gran # Lymph # [place] # Eos # Baso # pCO2 58 H pO2 43.0 L* HCO3 35.1 H ABG pH 7.39 ABG Total CO2 36.9 H ABG O2 Saturation 84.4 L ABG O2 Content 13.6 L ABG Base Excess 8.4 H ABG Hemoglobin 11.8 ABG Carboxyhemoglobin 2.2 H POC ABG HHb (Measured) 15.1 H ABG Methemoglobin 0.9 ABG O2 Capacity 16.1 Hgb O2 Saturation 81.8 L FiO2 30.0 Sodium Potassium Chloride Carbon Dioxide Anion Gap BUN Creatinine Est GFR ( Amer) Est GFR (Non-Af Amer) Random Glucose Calcium Total Bilirubin AST ALT Alkaline Phosphatase Total Protein Albumin Globulin Albumin/Globulin Ratio Lipase 38 Procalcitonin Attending/Attestation - Attestation I have personally seen and examined this patient.: Yes I have fully participated in the care of the patient.: Yes I have reviewed all pertinent clinical information: Yes Notes (Text): I have seen and examined the patient at bedside. Agree with the above note with the following additions/ exceptions: Briefly this is 46 year old female with history of tobacco use, COPD, asthma, alcohol and heroin abuse, and hepatitis C who came for evaluation of dyspnea x 3 days. She was intubated and got extubated this morning. Complains of cough, sputum production, headache, body aches and dizziness. She was found to ahve leukocytosis, elevated LFT's and positive urinalysis. Cultures are pending. Continue IV solumedrol, antibiotics. Start ativan prn and craig. Patient is homeless. Upon discharge patient will follow up with PMD of choice. Dr Juli Louise
[2017-03-22] MEDS: Levalbuterol 0.63 MG/3 ML Inhal Soln UD IH PRN (22:33)
[2017-03-23] MEDS: Cefepime 1gm in NS 100ml 1 GM/100 ML BAG IVPB SCH ×3 (05:01→21:16)
[2017-03-23 05:36] LABS: BASO # 0.02 K/mm3 (0.0-2.0); BASO % 0.1 % (0.0-3.0); GRAN # 22.12 (1.4-6.5); GRAN % 91.3 % (50.0-68.0); HEMATOCRIT 38.3 % (36.0-48.0); LYMPH # 1.1 (1.2-3.4); LYMPH % 4.4 % (22.0-35.0); MEAN CORPUSCULAR HEMOGLOBIN 31.8 pg (25.0-35.0); MEAN CORPUSCULAR HGB CONC 31.6 g/dl (31.0-37.0); MEAN PLATELET VOLUME 10.7 fl (7.0-11.0); MONO % 4.2 % (1.0-6.0); RED CELL DISTRIBUTION WIDTH 14.6 % (11.5-14.5); WHITE BLOOD COUNT 24.2 10^3/ul (4.5-11.0)
[2017-03-23 05:46] LABS: MEAN CELL VOLUME 100.8 fl (80.0-105.0)
[2017-03-23 06:24] LABS: ARTERIAL BLOOD GAS HCO3 35.1 mmol/L (21-28); ARTERIAL BLOOD GAS O2 CAPACITY 16.1 mL/dl (16-24); ARTERIAL BLOOD GAS O2 CONTENT 13.6 ML/dl (15-23); ARTERIAL BLOOD GAS PH 7.39 (7.35-7.45); ARTERIAL BLOOD HGB O2 SAT 81.8 % (95.0-98.0); CARBOXYHEMOGLOBIN 2.2 % (0.5-1.5); HHB 15.1 % (0-5); METHEMOGLOBIN 0.9 % (0.0-3.0)
[2017-03-23] MEDS: Levalbuterol 0.63 MG/3 ML Inhal Soln UD IH PRN (07:58)
[2017-03-23 08:06] LABS: ALB/GLOB RATIO 1.1 (1.1-1.8); ALKALINE PHOSPHATASE 76 U/L (38-126); ALT/SGPT 93 U/L (7-56); AST/SGOT 50 U/L (14-36); BILIRUBIN,TOTAL 0.6 mg/dL (0.2-1.3); BLOOD UREA NITROGEN 13 mg/dL (7-21); CALCIUM 8.6 mg/dL (8.4-10.5); CARBON DIOXIDE 35 mmol/L (21-33); CHLORIDE 103 mmol/L (98-107); GFR AFRICAN-AMERICAN > 60; GLUCOSE,RANDOM 155 mg/dL (70-110); POTASSIUM 4.7 mmol/L (3.6-5.0); SODIUM 139 mmol/L (132-148); TOTAL PROTEIN 5.9 g/dL (5.8-8.3)
[2017-03-23] MEDS: Multivitamin Therapeutic Tab PO SCH (08:15)
[2017-03-23] MEDS: Pantoprazole 40 mg EC Tab PO SCH (08:15)
--- NOTE | 2017-03-23 08:38 | CON ---
DATE: 03/22/2017 LOCATION: The patient is seen in the ICU 128, bed 2. The patient is intubated and on a ventilator this morning. CHIEF COMPLAINT: Respiratory failure. HISTORY OF PRESENT ILLNESS: This is a 46-year-old female with a history of COPD, asthma with multiple hospitalizations in the past. She is admitted on this hospitalization with past medical history significant for chronic obstructive lung disease, asthma, hepatitis C, and polysubstance abuse. In the emergency room, the patient was seen by who states the patient's past medical history including hyperlipidemia and chronic tobacco use admitted with shortness of breath and respiratory distress and the patient was found to have 20,000 white count, Infectious Disease consultation requested. This morning, the patient was intubated on a ventilator and appeared to be awake and responsive. No abdominal pain reported. No diarrhea or constipation. No bright red blood per rectum. No melena. PAST MEDICAL HISTORY: Significant for COPD, asthma, hepatitis C, polysubstance use, hyperlipidemia, and tobacco use. PAST SURGICAL HISTORY: Significant for chest tube placement for pneumothorax 15 years ago and a tonsillectomy. MEDICATIONS AT HOME: Revealed the patient to be on trazodone, thiamine, Protonix, vitamin, Singulair, patient home with a Medrol [place], Celexa, inhaler, and Tylenol. PHYSICAL EXAMINATION: GENERAL: On exam, the patient is in bed intubated with a ventilator. VITAL SIGNS: Temperature of 99, heart rate of 101, respiratory rate on a vent, and blood pressure is 135/78. HEENT: Unremarkable. NECK: Supple. LUNGS: Decreased breath sounds. HEART: Normal S1 and S2. ABDOMEN: Soft and nontender. LABORATORY DATA: Reveals the patient's white count of 20,000, hemoglobin of 14, platelets 364, differential is noted. Coagulation is noted. Chemistries revealed the patient's BUN of 5, creatinine of 0.5. Urinalysis is noted. LFTs are elevated. The patient had a chest x-ray yesterday, which was read as no active lung disease, and the patient also had a chest x-ray this morning, also showed no active lung disease. ASSESSMENT AND PLAN: This is a 46-year-old female with history of chronic obstructive pulmonary disease, asthma, hepatitis C, polysubstance abuse, hyperlipidemia, tobacco use admitted with shortness of breath with (SIRS) systemic inflammatory response syndrome with respiratory failure, intubated on a ventilator. The patient had recent hospitalization and must rule out nosocomial infection and chest x-ray is reported to be negative. We will order blood cultures, urine cultures, MRSA screen, and sputum culture and we will start the patient empirically on Maxipime 1 g IV q. 8 hours. We will also order an abdominal ultrasound, LFT elevations . We will discontinue the ceftriaxone pending panculture results. We will continue with the doxycycline. Review of the cultures from previous admission reveals negative blood cultures. The patient did have corynebacterium in the urine in 01/2017. We will also order a procalcitonin. Review of the laboratories from previous admissions reveals the patient had an HIV testing done that was negative in 10/2016. We will make further recommendations. EKG is not available at this time. We will check on the ultrasound of the abdomen. We will follow closely with you. Margarito Robert MD
[2017-03-23] MEDS: Enoxaparin 40 mg Syringe SC SCH (09:56)
[2017-03-23] MEDS: Chlorhexidine 0.12% Oral Sol 480 ml Bot PO SCH (09:57)
[2017-03-23] MEDS: MethylPREDNISolone 40 mg Vial IVP SCH ×2 (09:57→21:03)
--- NOTE | 2017-03-23 11:00 | CP.PCM.PN ---
<KareenConnien - Last Filed: 03/24/17 16:30> Subjective - Date & Time of Evaluation Date of Evaluation: 03/23/17 Time of Evaluation: 07:57 - Subjective Subjective: Patient seen and examined at bedside. Per nursing no acute events occurred overnight. The patient reports diffuse abdominal pain in all four quadrants. The patient also reports non radiating chest pain. The patient also reports chills, lightheadedness and dizziness. The patient denies any syncopal episodes , vomiting, headaches, or any other complaints. Objective - Vital Signs/Intake and Output Vital Signs (last 24 hours): Temp Pulse Resp BP Pulse Ox 98.2 F 98 H 15 135/99 H 97 03/23/17 05:17 03/23/17 05:17 03/23/17 05:17 03/23/17 05:17 03/23/17 05:17 Intake and Output: 03/23/17 03/23/17 06:59 18:59 Intake Total 700 Output Total 400 Balance 300 - Medications Medications: Current Medications Chlorhexidine Gluconate (Peridex) 15 ml PO BID [facility] Last Admin: 03/23/17 09:57 Dose: Not Given Docusate Sodium (Colace Liquid) 100 mg PO TID [facility] Last Admin: 03/23/17 09:56 Dose: 100 mg Doxycycline Hyclate (Doryx) 100 mg PO Q12 [facility] PRN Reason: Protocol Stop: 03/31/17 10:01 Last Admin: 03/23/17 09:56 Dose: 100 mg Enoxaparin Sodium (Lovenox) 40 mg SC DAILY [facility] PRN Reason: Protocol Last Admin: 03/23/17 09:56 Dose: 40 mg Folic Acid (Folic Acid) 1 mg PO DAILY [facility] Last Admin: 03/23/17 09:56 Dose: 1 mg Cefepime HCl (Maxipime 1gm) 1 gm in 100 mls @ 100 mls/hr IVPB Q8 [facility] PRN Reason: Protocol Stop: 03/31/17 14:01 Last Admin: 03/23/17 05:01 Dose: 100 mls/hr Levalbuterol HCl (Xopenex) 0.63 mg [facility] [id number] PRN PRN Reason: Shortness of Breath Last Admin: 03/23/17 07:58 Dose: 0.63 mg Lorazepam (Ativan) 2 mg IVP Q4H PRN; Protocol PRN Reason: Symptoms of alcohol withdrawl Last Admin: 03/22/17 15:44 Dose: 2 mg Lorazepam (Ativan) 1 mg IVP Q6H [facility] PRN Reason: Protocol Methylprednisolone (Solu-Medrol) 40 mg IVP Q12 [facility] Last Admin: 03/23/17 09:57 Dose: 40 mg Multivitamins (Thera Tab) 1 tab PO 0800 [facility] Last Admin: 03/23/17 08:15 Dose: 1 tab Nicotine (Nicoderm Cq) 1 patch TD DAILY [facility] Last Admin: 03/23/17 09:55 Dose: 1 patch Pantoprazole Sodium (Protonix Ec Tab) 40 mg PO 0600 [facility] Last Admin: 03/23/17 08:15 Dose: 40 mg Thiamine HCl (Vitamin B1 Tab) 100 mg PO DAILY [facility] Last Admin: 03/23/17 09:56 Dose: 100 mg - Labs Labs: 03/23/17 05:22 03/23/17 05:22 PT 10.3 SECONDS (9.4-12.5) 03/21/17 19:25 INR 0.95 (0.93-1.08) 03/21/17 19:25 APTT 25.1 Seconds (25.1-36.5) 03/21/17 19:25 - Head Exam Head Exam: ATRAUMATIC, NORMAL INSPECTION, NORMOCEPHALIC - Eye Exam Eye Exam: EOMI, Normal appearance, PERRL Pupil Exam: NORMAL ACCOMODATION, PERRL. absent: Irregular, Unequal - Neck Exam Neck Exam: Normal Inspection. absent: Lymphadenopathy, Thyromegaly - Respiratory Exam Respiratory Exam: Decreased Breath Sounds, Wheezes. absent: Clear to Ausculation Bilateral, Prolonged Expiratory Phase, Respiratory Distress - Cardiovascular Exam Cardiovascular Exam: REGULAR RHYTHM, +S1, +S2. absent: Gallop, Rubs - GI/Abdominal Exam GI & Abdominal Exam: Firm, Tenderness. absent: Hypoactive Bowel Sounds, Mass - Extremities Exam Extremities Exam: Full ROM. absent: Joint Swelling, Pedal Edema, Tenderness - Back Exam Back Exam: NORMAL INSPECTION. absent: CVA tenderness (L), CVA tenderness (R), paraspinal tenderness - Neurological Exam Neurological Exam: Alert, Awake, Normal Gait, Oriented x3 - Psychiatric Exam Psychiatric exam: Normal Affect, Normal Mood - Skin Skin Exam: Dry, Intact, Normal Color Assessment and Plan - Assessment and Plan (Free Text) Assessment: 46 year old female with a past medical history of COPD, asthma, alcohol and heroin abuse and hepatitis C who is being admitted for respiratory failure 2/2 COPD exacerbation. Plan: Neurological Nonfocal, no acute deficits Continue to monitor Cardiovascular HD stable No acute findings On monitor in ICU Pulmnologic CAP in the setting of asthma and COPD Antibiotics changed to Maxipime and Doxycycline. Continue solumedrol 40mg IVP Q12h Continue Xopenex GI Acute onset Abdominal Pain: Pancreatitis, vs Diverticulitis Abdominal U/S ordered. Will f/u with results. Abdominal CT ordered .Will f/u with results. On GI ppx with PPI NPO at this time Nephro/electrolytes Repleted electrolytes Will continue to monitor with serial CMP's. ID ID consulted and Rec's appreciated. Leukocytosis but afebrile and on steroids Antibiotic changed to Maxipime and Doxycline. Sputum, urine cx, and MRSA pending. Will f/u with results. Blood cx (-)x24 hours. Heme Leukocytosis but on steroids both at home and during multiple ER visits Will monitor GI/DVT ppx: protonix/lovenox <Juli Louise - Last Filed: 03/24/17 18:54> Objective - Vital Signs/Intake and Output Vital Signs (last 24 hours): Temp Pulse Resp BP Pulse Ox 97 F L 111 H 19 136/87 95 03/24/17 18:05 03/24/17 18:05 03/24/17 18:05 03/24/17 18:05 03/24/17 13:53 Intake and Output: 03/24/17 03/24/17 06:59 18:59 Intake Total 740 1380 Output Total 850 1000 Balance -110 380 - Medications Medications: Current Medications Docusate Sodium (Colace Liquid) 100 mg PO TID [facility] Last Admin: 03/24/17 17:40 Dose: 100 mg Doxycycline Hyclate (Doryx) 100 mg PO Q12 [facility] PRN Reason: Protocol Stop: 03/31/17 10:01 Last Admin: 03/24/17 10:34 Dose: 100 mg Enoxaparin Sodium (Lovenox) 40 mg SC DAILY [facility] PRN Reason: Protocol Last Admin: 03/24/17 09:21 Dose: 40 mg Folic Acid (Folic Acid) 1 mg PO DAILY [facility] Last Admin: 03/24/17 10:34 Dose: 1 mg Cefepime HCl (Maxipime 1gm) 1 gm in 100 mls @ 100 mls/hr IVPB Q8 [facility] PRN Reason: Protocol Stop: 03/31/17 14:01 Last Admin: 03/24/17 13:41 Dose: 100 mls/hr Lactated Ringer's (Lactated Ringer's) 1,000 mls @ 100 mls/hr IV .Q10H [facility] Stop: 03/25/17 23:46 Last Admin: 03/24/17 16:56 Dose: 100 mls/hr Levalbuterol HCl (Xopenex) 0.63 mg IH [id number] PRN PRN Reason: Shortness of Breath Last Admin: 03/23/17 07:58 Dose: 0.63 mg Lorazepam (Ativan) 2 mg IVP Q4H PRN; Protocol PRN Reason: Symptoms of alcohol withdrawl Last Admin: 03/24/17 13:45 Dose: 2 mg Lorazepam (Ativan) 1 mg IVP Q6H [facility] PRN Reason: Protocol Last Admin: 03/24/17 16:54 Dose: 1 mg Methylprednisolone (Solu-Medrol) 40 mg IVP Q12 [facility] Last Admin: 03/24/17 09:20 Dose: 40 mg Multivitamins (Thera Tab) 1 tab PO 0800 [facility] Last Admin: 03/24/17 10:34 Dose: 1 tab Nicotine (Nicoderm Cq) 1 patch TD DAILY [facility] Last Admin: 03/24/17 09:20 Dose: 1 patch Pantoprazole Sodium (Protonix Ec Tab) 40 mg PO 0600 [facility] Last Admin: 03/24/17 05:11 Dose: 40 mg Thiamine HCl (Vitamin B1 Tab) 100 mg PO DAILY [facility] Last Admin: 03/24/17 10:34 Dose: 100 mg - Labs Labs: 03/24/17 05:10 03/24/17 05:02 PT 10.3 SECONDS (9.4-12.5) 03/21/17 19:25 INR 0.95 (0.93-1.08) 03/21/17 19:25 APTT 25.1 Seconds (25.1-36.5) 03/21/17 19:25 Attending/Attestation - Attestation I have personally seen and examined this patient.: Yes I have fully participated in the care of the patient.: Yes I have reviewed all pertinent clinical information, including history, physical exam and plan: Yes Notes (Text): I have seen and examined the patient at bedside. 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 She was intubated and got extubated yesterday. Complains of cough, sputum production, headache, body aches , abdominal pain and significant abdominal distension. CT abdomen revealed colonic ileus and large gall stone. She was made NPO. GI and surgery consult pending. She also has leukocytosis which is improving. There is no diarrhea. She has elevated LFT's and positive urinalysis. Cultures are pending. Continue IV solumedrol, antibiotics (cefepime and doxy). Continue ativan prn and craig. Patient is homeless. Upon discharge patient will follow up with PMD of choice. Dr Juli Louise
--- NOTE | 2017-03-23 12:24 | CT ---
PROCEDURE: CT Abdomen and Pelvis without intravenous contrast HISTORY: diffuse abdominal pain COMPARISON: CT of the chest 02/14/2017 TECHNIQUE: Without contrast.. Contrast Dose: Radiation dose: Total exam DLP = 608 mGy-cm. This CT exam was performed using one or more of the following dose reduction techniques: Automated exposure control, adjustment of the mA and/or kV according to patient size, and/or use of iterative reconstruction technique. FINDINGS: LOWER THORAX: Unremarkable. LIVER: Unremarkable. No gross lesion or ductal dilatation. GALLBLADDER AND BILE DUCTS: There is a 2.4 cm stone in the gallbladder. There is no inflammation PANCREAS: Unremarkable. No gross lesion or ductal dilatation. SPLEEN: Unremarkable. ADRENALS: Unremarkable. No mass. KIDNEYS AND URETERS: Unremarkable. No hydronephrosis. No solid mass. VASCULATURE: Unremarkable. No aortic aneurysm. BOWEL: The colon is diffusely dilated. There is no mural thickening to suggest colitis. There are no obstructing lesions. Findings are most likely due to a colonic ileus. There is no small bowel dilatation. The stomach is not distended. APPENDIX: Unremarkable. Normal appendix. PERITONEUM: Unremarkable. No free fluid. No free air. LYMPH NODES: Unremarkable. No enlarged lymph nodes. BLADDER: Unremarkable. REPRODUCTIVE: Unremarkable. BONES: No acute fracture. OTHER FINDINGS: None. IMPRESSION: Diffusely dilated colon consistent with ileus No evidence of small bowel obstruction. Large gallstone
--- NOTE | 2017-03-23 13:48 | PN ---
DATE: 03/23/2017 SUBJECTIVE: The patient seen earlier this morning in room number 129, bed 2. The patient has no fevers and no chills. She is extubated. She appears to be comfortable. PHYSICAL EXAMINATION: VITAL SIGNS: Temperature is 99, blood pressure is 150/90, respiratory rate of 21, and heart rate of 101. HEENT: Examination of HEENT is unremarkable. NECK: Supple. LUNGS: Have decreased breath sounds. HEART: Exam normal S1 and S2. GASTROINTESTINAL: Abdominal examination is soft and nontender. LABORATORY DATA: Examination reveals a white count of 24,000, hemoglobin of 12, and platelets of 316. Chemistries reveals a BUN of 13, creatinine of 0.5, an d procalcitonin of 0.1. Urinalysis is noted and microbiology reveals the blood cultures are negative, no growth, and sputum cultures are pending. The patient's procalcitonin is 0.10. DIAGNOSTIC DATA: The patient had a CT scan of the abdomen and pelvis without p.o. or IV contrast which was read by Dr. Gordon diffusely dilated colon consistent with ileus. No evidence of small bowel obstruction and there are large gallstone present, but the biliary tree is not inflamed. The patient also had an ultrasound of the abdomen. Large gallstones in the gallbladder neck and no signs of cholecystitis. MEDICATIONS: The patient is currently on doxycycline, cefepime, and Solu-Medrol. IMPRESSION AND PLAN: A 46-year-old female with history of chronic obstructive pulmonary disease, asthma and multiple hospitalizations, admitted with chronic obstructive lung disease, asthma, hepatitis C, polysubstance abuse and which required respiratory intubation because of respiratory failure with SIRS (systemic inflammatory response syndrome), currently extubated, comfortable. Large gallstone In the gallbladder with liver function test elevations and currently on p.o. doxycycline and cefepime, and prednisone. Liver function tests are improving and final cultures pending. We will check on the sputum culture and the patient's chest x-ray from yesterday. No active lung disease with negative procalcitonin. If all cultures are being negative, we will discontinue the antibiotics. All stone in the gallbladder requires GI and surgical evaluation Margarito Robert MD
[2017-03-23] MEDS ORDERED: guaiFENesin 100 mg/5 ml Syrup UD PO STA (23:01)
--- NOTE | 2017-03-23 23:30 | CP.PCM.CON ---
History of Present Illness - History of Present Illness History of Present Illness: Surgery Consult: Dr. Gongora Pt is a 46F with PMHx significant for asthma, COPD, Hep C, and EtOH as well as heroin abuse who presented to [facility] on 03/21 for SOB. Upon arrival to the ER, pt was found to be very SOB and due to impending respiratory failure she was intubated in the ER and admitted to the ICU. Pt was successfully extubated yesterday and this morning was complaining of increasing abdominal pain with distention. CT abdomen/pelvis was obtained and pt was found to have colonic ileus. Surgery consulted to evaluate. Currently, pt is resting comfortably in bed. States she feels diffuse abdominal pain and her belly feels distended. As per the pt, her last BM was 3-4 days ago but she admits to flatus. Pt also admits to active heroin abuse and states she used prior to coming to the hospital. Denies N/V, F/C, chest pain at this time. PMHx; as listed above PSHx: appendectomy, tonsillectomy Social Hx: 1/2 PPD x 30 yrs, EtOH & heroin abuse Allergies: denies Review of Systems - Review of Systems All systems: reviewed and no additional remarkable complaints except (as per HPI ) Past Patient History - Infectious Disease Hx of Infectious Diseases: None - Tetanus Immunizations Tetanus Immunization: Unknown - Past Medical History & Family History Past Medical History?: Yes - Past Social History Smoking Status: Smoker Currrent Status Unknown - CARDIAC Hx Cardiac Disorders: No - PULMONARY Hx Respiratory Disorders: Yes Hx Asthma: Yes Hx Chronic Obstructive Pulmonary Disease (COPD): Yes - NEUROLOGICAL HX Cerebrovascular Accident: No - HEENT Hx HEENT Problems: No - RENAL Hx Chronic Kidney Disease: No - HEMATOLOGICAL/ONCOLOGICAL Hx Blood Disorders: Yes Hx Hepatitis C: Yes - MUSCULOSKELETAL/RHEUMATOLOGICAL Hx Falls: Yes (fell 2 wks ago) - GASTROINTESTINAL Hx Gastrointestinal Disorders: Yes - GENITOURINARY/GYNECOLOGICAL Hx Genitourinary Disorders: No - PSYCHIATRIC Hx Psychophysiologic Disorder: Yes Hx Anxiety: Yes Hx Depression: Yes - SURGICAL HISTORY Hx Appendectomy: Yes Hx Tonsillectomy: Yes - ANESTHESIA Hx Anesthesia: Yes Hx Anesthesia Reactions: No Hx Malignant Hyperthermia: No Meds Allergies/Adverse Reactions: Allergies Allergy/AdvReac Type Severity Reaction Status Date / Time No Known Allergies Allergy Verified 03/21/17 19:11 - Medications Medications: Current Medications Docusate Sodium (Colace Liquid) 100 mg PO TID [facility] Last Admin: 03/23/17 17:58 Dose: Not Given Doxycycline Hyclate (Doryx) 100 mg PO Q12 JACK PRN Reason: Protocol Stop: 03/31/17 10:01 Last Admin: 03/23/17 21:03 Dose: 100 mg Enoxaparin Sodium (Lovenox) 40 mg SC DAILY JACK PRN Reason: Protocol Last Admin: 03/23/17 09:56 Dose: 40 mg Folic Acid (Folic Acid) 1 mg PO DAILY [facility] Last Admin: 03/23/17 09:56 Dose: 1 mg Cefepime HCl (Maxipime 1gm) 1 gm in 100 mls @ 100 mls/hr IVPB Q8 JACK PRN Reason: Protocol Stop: 03/31/17 14:01 Last Admin: 03/23/17 21:16 Dose: 100 mls/hr Levalbuterol HCl (Xopenex) 0.63 mg IH [id number] PRN PRN Reason: Shortness of Breath Last Admin: 03/23/17 07:58 Dose: 0.63 mg Lorazepam (Ativan) 2 mg IVP Q4H PRN; Protocol PRN Reason: Symptoms of alcohol withdrawl Last Admin: 03/23/17 21:02 Dose: 2 mg Lorazepam (Ativan) 1 mg IVP Q6H JACK PRN Reason: Protocol Last Admin: 03/23/17 17:52 Dose: Not Given Methylprednisolone (Solu-Medrol) 40 mg IVP Q12 [facility] Last Admin: 03/23/17 21:03 Dose: 40 mg Multivitamins (Thera Tab) 1 tab PO 0800 [facility] Last Admin: 03/23/17 08:15 Dose: 1 tab Nicotine (Nicoderm Cq) 1 patch TD DAILY [facility] Last Admin: 03/23/17 09:55 Dose: 1 patch Pantoprazole Sodium (Protonix Ec Tab) 40 mg PO 0600 [facility] Last Admin: 03/23/17 08:15 Dose: 40 mg Sodium Phosphate (Fleet Enema) 135 ml RC Q4H [facility] Stop: 03/24/17 07:31 Thiamine HCl (Vitamin B1 Tab) 100 mg PO DAILY [facility] Last Admin: 03/23/17 09:56 Dose: 100 mg Physical Exam - Constitutional Appears: Well, No Acute Distress - Head Exam Head Exam: ATRAUMATIC, NORMOCEPHALIC - ENT Exam ENT Exam: Mucous Membranes Moist - Respiratory Exam Respiratory Exam: Wheezes (b/l lung dean ), NORMAL BREATHING PATTERN - Cardiovascular Exam Cardiovascular Exam: RRR - GI/Abdominal Exam GI & Abdominal Exam: Distended, Hernia (umbilical ), Hypoactive Bowel Sounds, Soft, Tenderness (diffuse ). absent: Guarding, Rebound - Rectal Exam Rectal Exam: Hemorrhoids (external) Additional comments: good tone, no blood. Pt currently on her period - Neurological Exam Neurological exam: Alert, Oriented x3 - Skin Skin Exam: Dry, Warm Results - Vital Signs Recent Vital Signs: Last Vital Signs Temp 98.6 F 03/23/17 19:00 Pulse 88 03/23/17 19:00 Resp 26 H 03/23/17 19:00 BP 155/97 H 03/23/17 11:28 Pulse Ox 95 03/23/17 19:00 - Labs Result Diagrams: 03/23/17 05:22 03/23/17 05:22 Labs: Laboratory Results - last 24 hr 03/23/17 03/23/17 03/23/17 05:22 05:22 05:22 WBC 24.2 H D RBC 3.80 Hgb 12.1 Hct 38.3 MCV 100.8 D MCH 31.8 MCHC 31.6 RDW 14.6 H Plt Count 316 MPV 10.7 Gran % 91.3 H Lymph % (Auto) 4.4 L [place] % (Auto) 4.2 Eos % (Auto) 0.0 L Baso % (Auto) 0.1 Gran # 22.12 H Lymph # 1.1 L [place] # 1.0 H Eos # 0.0 Baso # 0.02 pCO2 pO2 HCO3 ABG pH ABG Total CO2 ABG O2 Saturation ABG O2 Content ABG Base Excess ABG Hemoglobin ABG Carboxyhemoglobin POC ABG HHb (Measured) ABG Methemoglobin ABG O2 Capacity Hgb O2 Saturation FiO2 Sodium 139 Potassium 4.7 Chloride 103 Carbon Dioxide 35 H Anion Gap 6 L BUN 13 Creatinine 0.5 L Est GFR ( Amer) > 60 Est GFR (Non-Af Amer) > 60 Random Glucose 155 H Hemoglobin A1c Calcium 8.6 Total Bilirubin 0.6 AST 50 H D ALT 93 H Alkaline Phosphatase 76 Total Protein 5.9 Albumin 3.1 Globulin 2.8 Albumin/Globulin Ratio 1.1 Lipase 38 03/23/17 03/23/17 05:22 06:00 WBC RBC Hgb Hct MCV MCH MCHC RDW Plt Count MPV Gran % Lymph % (Auto) [place] % (Auto) Eos % (Auto) Baso % (Auto) Gran # Lymph # [place] # Eos # Baso # pCO2 58 H pO2 43.0 L* HCO3 35.1 H ABG pH 7.39 ABG Total CO2 36.9 H ABG O2 Saturation 84.4 L ABG O2 Content 13.6 L ABG Base Excess 8.4 H ABG Hemoglobin 11.8 ABG Carboxyhemoglobin 2.2 H POC ABG HHb (Measured) 15.1 H ABG Methemoglobin 0.9 ABG O2 Capacity 16.1 Hgb O2 Saturation 81.8 L FiO2 30.0 Sodium Potassium Chloride Carbon Dioxide Anion Gap BUN Creatinine Est GFR ( Amer) Est GFR (Non-Af Amer) Random Glucose Hemoglobin A1c 6.7 H Calcium Total Bilirubin AST ALT Alkaline Phosphatase Total Protein Albumin Globulin Albumin/Globulin Ratio Lipase - Imaging and Cardiology CT scan - abdomen Status: Image reviewed by me, Report reviewed by me Assessment & Plan - Assessment and Plan (Free Text) Assessment: 46F with colonic ileus, likely secondary to heroin abuse Plan: - currently, pt not nauseous or vomiting so will hold off on NGT since distention is more distal in the colon - conservative management to decompress the colon - fleet enemas to elicit BMs - serial abdominal exams - encourage ambulation - keep NPO with IVF - will monitor closely - d/w Dr. Rolan Gutierrez, PGY-3 Surgery
[2017-03-24] MEDS: Lactated Ringer's 1,000 ML IV SCH ×3 (00:27→21:30)
--- NOTE | 2017-03-24 04:31 | CON ---
DATE: 03/23/2017 REASON FOR CONSULTATION: Abdominal distention, gallstones, colonic distention. HISTORY OF PRESENT ILLNESS: This 46-year-old with past medical history of COPD, asthma, history of alcohol use and heroin abuse, chronic hepatitis C presented to the emergency room with complaining of shortness of breath. The patient was intubated for airway protection and the patient was extubated now. The patient has noticed have an abdominal distention. CAT scan showed some diffusely distended abdomen, GI consult was requested to evaluate this. The patient also found to have gallstones. The patient is being started on steroids, found to have an elevated white cell count. PAST MEDICAL HISTORY: As above. PAST SURGICAL HISTORY: Significant for appendicectomy and tonsillectomy. SOCIAL HISTORY: Positive for smoking and also alcohol. Past history of heroin abuse. FAMILY HISTORY: Limited. ALLERGIES: NO KNOWN DRUG ALLERGIES. REVIEW OF SYSTEMS: Positive as above. Other systems reviewed. PHYSICAL EXAMINATION GENERAL: The patient is lying on the bed, not in acute distress. At the moment, the patient is extubated. VITAL SIGNS: Temperature is 98.7, pulse 101 and blood pressure 155/57. HEENT: Atraumatic. Anicteric. NECK: Supple. HEART: S1 and S2 heard, tachycardiac. LUNGS: Bilateral air entry present, few scattered rhonchi present. ABDOMEN: Distended. There is a mild diffuse tenderness present. Deep palpation. EXTREMITIES: No cyanosis. No clubbing. NEUROLOGIC: Alert and oriented. Moves all extremities. LABORATORY DATA: Hemoglobin 12.1, hematocrit 38.3, WBC 24.2, and platelets 313. AST is 50, ALT is 93. The CT scan of the abdomen and pelvis done was reviewed, found to have some distended colonic distention present. There was also a large gallstone noticed. The ultrasound scan of the abdomen was also reviewed, showed the same stone. The patient has common bile duct with normal dilation. There was no wall thickening or pericholecystic fluid. IMPRESSION: This 46-year-old patient admitted with respiratory failure, shortness of breath status post intubation, extubated. The patient has colonic distention. DIFFERENTIAL DIAGNOSES: 1. Abdomen distended should include colonically a pseudo-obstruction, rule out Clostridium difficile colitis. 2. The patient has large gallstones. No clinical evidence of cholecystitis or no clinical evidence of gallbladder wall thickening or inflammatory changes. Common bile duct normal. RECOMMENDATIONS: 1. Stool for C. diff. 2. The patient is on n.p.o. except medications. We will slowly advance the diet to clear liquid diet in a.m. 3. Would recommend HIDA scan. Thank you very much for allowing us to participate in care of your patient. Yasmine Sun MD MTDD
[2017-03-24] MEDS: Pantoprazole 40 mg EC Tab PO SCH (05:11)
[2017-03-24] MEDS: Cefepime 1gm in NS 100ml 1 GM/100 ML BAG IVPB SCH ×3 (05:11→22:14)
[2017-03-24 05:56] LABS: ALB/GLOB RATIO 1.1 (1.1-1.8); ALKALINE PHOSPHATASE 76 U/L (38-126); ALT/SGPT 80 U/L (7-56); AST/SGOT 41 U/L (14-36); BILIRUBIN,TOTAL 0.6 mg/dL (0.2-1.3); BLOOD UREA NITROGEN 15 mg/dL (7-21); CALCIUM 8.4 mg/dL (8.4-10.5); CARBON DIOXIDE 37 mmol/L (21-33); CHLORIDE 98 mmol/L (98-107); GFR AFRICAN-AMERICAN > 60; GLUCOSE,RANDOM 143 mg/dL (70-110); POTASSIUM 4.3 mmol/L (3.6-5.0); SODIUM 140 mmol/L (132-148)
--- NOTE | 2017-03-24 05:59 | CP.PCM.PN ---
Subjective - Date & Time of Evaluation Date of Evaluation: 03/24/17 Time of Evaluation: 05:59 - Subjective Subjective: # 22 angiocath was inserted in left hand. Objective - Vital Signs/Intake and Output Vital Signs (last 24 hours): Temp Pulse Resp BP Pulse Ox 98.5 F 93 H 28 H 124/84 94 L 03/24/17 00:00 03/24/17 04:00 03/24/17 04:00 03/24/17 04:00 03/24/17 00:00 Intake and Output: 03/23/17 03/24/17 18:59 06:59 Intake Total 580 Output Total 350 Balance 230 - Medications Medications: Current Medications Docusate Sodium (Colace Liquid) 100 mg PO TID [facility] Last Admin: 03/23/17 17:58 Dose: Not Given Doxycycline Hyclate (Doryx) 100 mg PO Q12 JACK PRN Reason: Protocol Stop: 03/31/17 10:01 Last Admin: 03/23/17 21:03 Dose: 100 mg Enoxaparin Sodium (Lovenox) 40 mg SC DAILY JACK PRN Reason: Protocol Last Admin: 03/23/17 09:56 Dose: 40 mg Folic Acid (Folic Acid) 1 mg PO DAILY [facility] Last Admin: 03/23/17 09:56 Dose: 1 mg Cefepime HCl (Maxipime 1gm) 1 gm in 100 mls @ 100 mls/hr IVPB Q8 JACK PRN Reason: Protocol Stop: 03/31/17 14:01 Last Admin: 03/24/17 05:11 Dose: 100 mls/hr Lactated Ringer's (Lactated Ringer's) 1,000 mls @ 100 mls/hr IV .Q10H JACK Stop: 03/25/17 23:46 Last Admin: 03/24/17 00:27 Dose: 100 mls/hr Levalbuterol HCl (Xopenex) 0.63 mg IH [id number] PRN PRN Reason: Shortness of Breath Last Admin: 03/23/17 07:58 Dose: 0.63 mg Lorazepam (Ativan) 2 mg IVP Q4H PRN; Protocol PRN Reason: Symptoms of alcohol withdrawl Last Admin: 03/23/17 21:02 Dose: 2 mg Lorazepam (Ativan) 1 mg IVP Q6H JACK PRN Reason: Protocol Last Admin: 03/23/17 22:30 Dose: Not Given Methylprednisolone (Solu-Medrol) 40 mg IVP Q12 [facility] Last Admin: 03/23/17 21:03 Dose: 40 mg Multivitamins (Thera Tab) 1 tab PO 0800 [facility] Last Admin: 03/23/17 08:15 Dose: 1 tab Nicotine (Nicoderm Cq) 1 patch TD DAILY [facility] Last Admin: 03/23/17 09:55 Dose: 1 patch Pantoprazole Sodium (Protonix Ec Tab) 40 mg PO 0600 [facility] Last Admin: 03/24/17 05:11 Dose: 40 mg Sodium Phosphate (Fleet Enema) 135 ml RC Q4H [facility] Stop: 03/24/17 07:31 Last Admin: 03/24/17 04:30 Dose: 135 ml Thiamine HCl (Vitamin B1 Tab) 100 mg PO DAILY [facility] Last Admin: 03/23/17 09:56 Dose: 100 mg - Labs Labs: 03/23/17 05:22 03/24/17 05:02 PT 10.3 SECONDS (9.4-12.5) 03/21/17 19:25 INR 0.95 (0.93-1.08) 03/21/17 19:25 APTT 25.1 Seconds (25.1-36.5) 03/21/17 19:25
[2017-03-24 06:02] LABS: BASO # 0.01 K/mm3 (0.0-2.0); BASO % 0.1 % (0.0-3.0); GRAN # 15.93 (1.4-6.5); HEMATOCRIT 39.4 % (36.0-48.0); LYMPH # 1.1 (1.2-3.4); LYMPH % 6.1 % (22.0-35.0); MEAN CELL VOLUME 101.3 fl (80.0-105.0); MEAN CORPUSCULAR HEMOGLOBIN 32.4 pg (25.0-35.0); MONO # 0.9 (0.1-0.6); MONO % 4.8 % (1.0-6.0); RED CELL DISTRIBUTION WIDTH 14.6 % (11.5-14.5); WHITE BLOOD COUNT 17.9 10^3/ul (4.5-11.0)
--- NOTE | 2017-03-24 08:27 | CP.PCM.PN ---
Subjective - Date & Time of Evaluation Date of Evaluation: 03/24/17 Time of Evaluation: 08:25 - Subjective Subjective: Surgery PT s&e. Pt on commode. Denies F/C?N/V/D/CP/SOB. Extubated. Got enema. Had BM. + void. Denies abd pain. Objective - Vital Signs/Intake and Output Vital Signs (last 24 hours): Temp Pulse Resp BP Pulse Ox 98.6 F 88 57 H 124/84 96 03/24/17 04:00 03/24/17 06:00 03/24/17 05:00 03/24/17 04:00 03/24/17 04:00 Intake and Output: 03/24/17 03/24/17 06:59 18:59 Intake Total 740 Output Total 850 Balance -110 - Medications Medications: Current Medications Docusate Sodium (Colace Liquid) 100 mg PO TID [facility] Last Admin: 03/23/17 17:58 Dose: Not Given Doxycycline Hyclate (Doryx) 100 mg PO Q12 JACK PRN Reason: Protocol Stop: 03/31/17 10:01 Last Admin: 03/23/17 21:03 Dose: 100 mg Enoxaparin Sodium (Lovenox) 40 mg SC DAILY JACK PRN Reason: Protocol Last Admin: 03/23/17 09:56 Dose: 40 mg Folic Acid (Folic Acid) 1 mg PO DAILY [facility] Last Admin: 03/23/17 09:56 Dose: 1 mg Cefepime HCl (Maxipime 1gm) 1 gm in 100 mls @ 100 mls/hr IVPB Q8 JACK PRN Reason: Protocol Stop: 03/31/17 14:01 Last Admin: 03/24/17 05:11 Dose: 100 mls/hr Lactated Ringer's (Lactated Ringer's) 1,000 mls @ 100 mls/hr IV .Q10H JACK Stop: 03/25/17 23:46 Last Admin: 03/24/17 00:27 Dose: 100 mls/hr Levalbuterol HCl (Xopenex) 0.63 mg IH [id number] PRN PRN Reason: Shortness of Breath Last Admin: 03/23/17 07:58 Dose: 0.63 mg Lorazepam (Ativan) 2 mg IVP Q4H PRN; Protocol PRN Reason: Symptoms of alcohol withdrawl Last Admin: 03/24/17 05:51 Dose: 2 mg Lorazepam (Ativan) 1 mg IVP Q6H JACK PRN Reason: Protocol Last Admin: 03/24/17 05:51 Dose: Not Given Methylnaltrexone [place] (Relistor) 8 mg SC ONCE ONE Stop: 03/24/17 08:24 Methylprednisolone (Solu-Medrol) 40 mg IVP Q12 [facility] Last Admin: 03/23/17 21:03 Dose: 40 mg Multivitamins (Thera Tab) 1 tab PO 0800 [facility] Last Admin: 03/23/17 08:15 Dose: 1 tab Nicotine (Nicoderm Cq) 1 patch TD DAILY [facility] Last Admin: 03/23/17 09:55 Dose: 1 patch Pantoprazole Sodium (Protonix Ec Tab) 40 mg PO 0600 [facility] Last Admin: 03/24/17 05:11 Dose: 40 mg Thiamine HCl (Vitamin B1 Tab) 100 mg PO DAILY [facility] Last Admin: 03/23/17 09:56 Dose: 100 mg - Labs Labs: 03/24/17 05:10 03/24/17 05:02 PT 10.3 SECONDS (9.4-12.5) 03/21/17 19:25 INR 0.95 (0.93-1.08) 03/21/17 19:25 APTT 25.1 Seconds (25.1-36.5) 03/21/17 19:25 - Constitutional Appears: Non-toxic - Head Exam Head Exam: ATRAUMATIC, NORMAL INSPECTION, NORMOCEPHALIC - Eye Exam Eye Exam: EOMI, Normal appearance, PERRL Pupil Exam: NORMAL ACCOMODATION, PERRL - ENT Exam ENT Exam: Mucous Membranes Moist, Normal Exam - Neck Exam Neck Exam: Full ROM, Normal Inspection. absent: Lymphadenopathy - Respiratory Exam Respiratory Exam: Clear to Ausculation Bilateral, NORMAL BREATHING PATTERN - GI/Abdominal Exam GI & Abdominal Exam: Distended, Soft, Normal Bowel Sounds. absent: Firm, Guarding, Rigid, Tenderness, Mass, Rebound - Rectal Exam Rectal Exam: NORMAL INSPECTION - Extremities Exam Extremities Exam: Full ROM, Normal Capillary Refill, Normal Inspection. absent : Joint Swelling, Pedal Edema - Back Exam Back Exam: NORMAL INSPECTION - Neurological Exam Neurological Exam: Alert, Awake, CN II-XII Intact, Normal Gait, Oriented x3 - Psychiatric Exam Psychiatric exam: Normal Affect, Normal Mood - Skin Skin Exam: Dry, Intact, Normal Color, Warm Assessment and Plan - Assessment and Plan (Free Text) Assessment: 46F with colonic ileus, likely secondary to heroin abuse : Improving Plan: - Relistor - currently, pt not nauseous or vomiting so will hold off on NGT since distention is more distal in the colon - conservative management to decompress the colon - fleet enemas to elicit BMs - serial abdominal exams - encourage ambulation - keep NPO with IVF - will monitor closely Will d/w Dr. Gongora
[2017-03-24] MEDS: Multivitamin Therapeutic Tab PO SCH ×2 (09:18→10:34)
[2017-03-24] MEDS: MethylPREDNISolone 40 mg Vial IVP SCH ×2 (09:20→21:17)
[2017-03-24] MEDS: Enoxaparin 40 mg Syringe SC SCH (09:21)
--- NOTE | 2017-03-24 10:39 | CP.PCM.PN ---
Subjective - Date & Time of Evaluation Date of Evaluation: 03/24/17 Time of Evaluation: 10:10 - Subjective Subjective: Comfortable, no fevers, breathing better. Objective - Vital Signs/Intake and Output Vital Signs (last 24 hours): Temp Pulse Resp BP Pulse Ox 98.6 F 88 57 H 124/84 96 03/24/17 04:00 03/24/17 06:00 03/24/17 05:00 03/24/17 04:00 03/24/17 04:00 Intake and Output: 03/24/17 03/24/17 06:59 18:59 Intake Total 740 Output Total 850 Balance -110 - Medications Medications: Current Medications Docusate Sodium (Colace Liquid) 100 mg PO TID [facility] Last Admin: 03/23/17 17:58 Dose: Not Given Doxycycline Hyclate (Doryx) 100 mg PO Q12 JACK PRN Reason: Protocol Stop: 03/31/17 10:01 Last Admin: 03/23/17 21:03 Dose: 100 mg Enoxaparin Sodium (Lovenox) 40 mg SC DAILY JACK PRN Reason: Protocol Last Admin: 03/23/17 09:56 Dose: 40 mg Folic Acid (Folic Acid) 1 mg PO DAILY [facility] Last Admin: 03/23/17 09:56 Dose: 1 mg Cefepime HCl (Maxipime 1gm) 1 gm in 100 mls @ 100 mls/hr IVPB Q8 JACK PRN Reason: Protocol Stop: 03/31/17 14:01 Last Admin: 03/24/17 05:11 Dose: 100 mls/hr Lactated Ringer's (Lactated Ringer's) 1,000 mls @ 100 mls/hr IV .Q10H JACK Stop: 03/25/17 23:46 Last Admin: 03/24/17 00:27 Dose: 100 mls/hr Levalbuterol HCl (Xopenex) 0.63 mg IH [id number] PRN PRN Reason: Shortness of Breath Last Admin: 03/23/17 07:58 Dose: 0.63 mg Lorazepam (Ativan) 2 mg IVP Q4H PRN; Protocol PRN Reason: Symptoms of alcohol withdrawl Last Admin: 03/24/17 05:51 Dose: 2 mg Lorazepam (Ativan) 1 mg IVP Q6H JACK PRN Reason: Protocol Last Admin: 03/24/17 05:51 Dose: Not Given Methylprednisolone (Solu-Medrol) 40 mg IVP Q12 [facility] Last Admin: 03/23/17 21:03 Dose: 40 mg Multivitamins (Thera Tab) 1 tab PO 0800 [facility] Last Admin: 03/23/17 08:15 Dose: 1 tab Nicotine (Nicoderm Cq) 1 patch TD DAILY [facility] Last Admin: 03/23/17 09:55 Dose: 1 patch Pantoprazole Sodium (Protonix Ec Tab) 40 mg PO 0600 [facility] Last Admin: 03/24/17 05:11 Dose: 40 mg Sodium Phosphate (Fleet Enema) 135 ml RC Q4H [facility] Stop: 03/24/17 07:31 Last Admin: 03/24/17 04:30 Dose: 135 ml Thiamine HCl (Vitamin B1 Tab) 100 mg PO DAILY [facility] Last Admin: 03/23/17 09:56 Dose: 100 mg - Labs Labs: 03/24/17 05:10 03/24/17 05:02 PT 10.3 SECONDS (9.4-12.5) 03/21/17 19:25 INR 0.95 (0.93-1.08) 03/21/17 19:25 APTT 25.1 Seconds (25.1-36.5) 03/21/17 19:25 - Constitutional Appears: Non-toxic - Head Exam Head Exam: NORMAL INSPECTION - Respiratory Exam Respiratory Exam: Decreased Breath Sounds - Cardiovascular Exam Cardiovascular Exam: +S1, +S2 - GI/Abdominal Exam GI & Abdominal Exam: Soft. 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
--- NOTE | 2017-03-24 13:03 | CP.PCM.PN ---
<Corinne,Kovil V - Last Filed: 03/25/17 14:50> Objective - Vital Signs/Intake and Output Vital Signs (last 24 hours): Temp Pulse Resp BP Pulse Ox 97 F L 111 H 19 136/87 95 03/24/17 18:05 03/24/17 18:05 03/24/17 18:05 03/24/17 18:05 03/24/17 13:53 Intake and Output: 03/24/17 03/25/17 18:59 06:59 Intake Total 1380 Output Total 1000 Balance 380 - Medications Medications: Current Medications Docusate Sodium (Colace Liquid) 100 mg PO TID [facility] Last Admin: 03/24/17 17:40 Dose: 100 mg Doxycycline Hyclate (Doryx) 100 mg PO Q12 JACK PRN Reason: Protocol Stop: 03/31/17 10:01 Last Admin: 03/24/17 21:18 Dose: 100 mg Enoxaparin Sodium (Lovenox) 40 mg SC DAILY JACK PRN Reason: Protocol Last Admin: 03/24/17 09:21 Dose: 40 mg Folic Acid (Folic Acid) 1 mg PO DAILY [facility] Last Admin: 03/24/17 10:34 Dose: 1 mg Cefepime HCl (Maxipime 1gm) 1 gm in 100 mls @ 100 mls/hr IVPB Q8 JACK PRN Reason: Protocol Stop: 03/31/17 14:01 Last Admin: 03/24/17 22:14 Dose: 100 mls/hr Lactated Ringer's (Lactated Ringer's) 1,000 mls @ 100 mls/hr IV .Q10H JACK Stop: 03/25/17 23:46 Last Admin: 03/24/17 21:30 Dose: Not Given Levalbuterol HCl (Xopenex) 0.63 mg IH [id number] PRN PRN Reason: Shortness of Breath Last Admin: 03/24/17 20:01 Dose: 0.63 mg Lorazepam (Ativan) 2 mg IVP Q4H PRN; Protocol PRN Reason: Symptoms of alcohol withdrawl Last Admin: 03/24/17 13:45 Dose: 2 mg Lorazepam (Ativan) 1 mg IVP Q6H JACK PRN Reason: Protocol Last Admin: 03/24/17 21:30 Dose: 1 mg Methylprednisolone (Solu-Medrol) 40 mg IVP Q12 [facility] Last Admin: 03/24/17 21:17 Dose: 40 mg Multivitamins (Thera Tab) 1 tab PO 0800 [facility] Last Admin: 03/24/17 10:34 Dose: 1 tab Nicotine (Nicoderm Cq) 1 patch TD DAILY [facility] Last Admin: 03/24/17 09:20 Dose: 1 patch Pantoprazole Sodium (Protonix Ec Tab) 40 mg PO 0600 [facility] Last Admin: 03/24/17 05:11 Dose: 40 mg Thiamine HCl (Vitamin B1 Tab) 100 mg PO DAILY [facility] Last Admin: 03/24/17 10:34 Dose: 100 mg - Labs Labs: 03/24/17 05:10 03/24/17 05:02 PT 10.3 SECONDS (9.4-12.5) 03/21/17 19:25 INR 0.95 (0.93-1.08) 03/21/17 19:25 APTT 25.1 Seconds (25.1-36.5) 03/21/17 19:25 Attending/Attestation - Attestation I have personally seen and examined this patient.: Yes I have fully participated in the care of the patient.: Yes I have reviewed all pertinent clinical information, including history, physical exam and plan: Yes Notes (Text): This is an addendum to GI progress report dictated by Kailyn Bills APN.The patient was seen and examined earlier. Medical records, lab studies, imagings were reviewed. Last 24 hours events reviewed. Agreed with the above treatment plan as outlined in Kailyn Bills APN's notes the with the addition of the following on examinDr. Rodolfoation abdomen appears distended CT scan imaging studies again reviewed. No significant stool or fecal impaction noticed Would discontinue enemas and relistor Discussed with the hospitalistDr. Hien Louise and instructor adjunct surgical technician Dr Reynolds 03/24/17 22:52 03/25/17 14:50 <Kailyn Bills - Last Filed: 03/30/17 16:57> Subjective - Date & Time of Evaluation Date of Evaluation: 03/24/17 Time of Evaluation: 11:16 - Subjective Subjective: S&E at bedside, chart reviewed, still have diffuse abdominal discomfort, no N/V , has had no BM, has been given fleets, abdomen remains distended. No respiratory distress. No other acute overnight events reported. Denies fever or chills. Spoke to nurse. Awaiting HIDA scan. Objective - Vital Signs/Intake and Output Vital Signs (last 24 hours): Temp Pulse Resp BP Pulse Ox 98.6 F 88 57 H 124/84 96 03/24/17 04:00 03/24/17 06:00 03/24/17 05:00 03/24/17 04:00 03/24/17 04:00 Intake and Output: 03/24/17 03/24/17 06:59 18:59 Intake Total 740 Output Total 850 Balance -110 - Medications Medications: Current Medications Docusate Sodium (Colace Liquid) 100 mg PO TID [facility] Last Admin: 03/24/17 10:15 Dose: 100 mg Doxycycline Hyclate (Doryx) 100 mg PO Q12 JACK PRN Reason: Protocol Stop: 03/31/17 10:01 Last Admin: 03/24/17 10:34 Dose: 100 mg Enoxaparin Sodium (Lovenox) 40 mg SC DAILY JACK PRN Reason: Protocol Last Admin: 03/24/17 09:21 Dose: 40 mg Folic Acid (Folic Acid) 1 mg PO DAILY [facility] Last Admin: 03/24/17 10:34 Dose: 1 mg Cefepime HCl (Maxipime 1gm) 1 gm in 100 mls @ 100 mls/hr IVPB Q8 JACK PRN Reason: Protocol Stop: 03/31/17 14:01 Last Admin: 03/24/17 05:11 Dose: 100 mls/hr Lactated Ringer's (Lactated Ringer's) 1,000 mls @ 100 mls/hr IV .Q10H JACK Stop: 03/25/17 23:46 Last Admin: 03/24/17 00:27 Dose: 100 mls/hr Levalbuterol HCl (Xopenex) 0.63 mg IH [id number] PRN PRN Reason: Shortness of Breath Last Admin: 03/23/17 07:58 Dose: 0.63 mg Lorazepam (Ativan) 2 mg IVP Q4H PRN; Protocol PRN Reason: Symptoms of alcohol withdrawl Last Admin: 03/24/17 05:51 Dose: 2 mg Lorazepam (Ativan) 1 mg IVP Q6H JACK PRN Reason: Protocol Last Admin: 03/24/17 10:42 Dose: 1 mg Methylprednisolone (Solu-Medrol) 40 mg IVP Q12 [facility] Last Admin: 03/24/17 09:20 Dose: 40 mg Multivitamins (Thera Tab) 1 tab PO 0800 [facility] Last Admin: 03/24/17 10:34 Dose: 1 tab Nicotine (Nicoderm Cq) 1 patch TD DAILY [facility] Last Admin: 03/24/17 09:20 Dose: 1 patch Pantoprazole Sodium (Protonix Ec Tab) 40 mg PO 0600 [facility] Last Admin: 03/24/17 05:11 Dose: 40 mg Thiamine HCl (Vitamin B1 Tab) 100 mg PO DAILY [facility] Last Admin: 03/24/17 10:34 Dose: 100 mg - Labs Labs: 03/24/17 05:10 03/24/17 05:02 PT 10.3 SECONDS (9.4-12.5) 03/21/17 19:25 INR 0.95 (0.93-1.08) 03/21/17 19:25 APTT 25.1 Seconds (25.1-36.5) 03/21/17 19:25 - Constitutional Appears: No Acute Distress - Eye Exam Eye Exam: Normal appearance. absent: Scleral icterus - ENT Exam ENT Exam: Mucous Membranes Moist - Neck Exam Neck Exam: Normal Inspection - Respiratory Exam Respiratory Exam: Decreased Breath Sounds, NORMAL BREATHING PATTERN. absent: Respiratory Distress - Cardiovascular Exam Cardiovascular Exam: +S1, +S2 - GI/Abdominal Exam GI & Abdominal Exam: Distended, Soft, Tenderness (diffuse), Hypoactive Bowel Sounds. absent: Guarding, Rebound - Extremities Exam Extremities Exam: absent: Calf Tenderness, Pedal Edema - Neurological Exam Neurological Exam: Alert, Awake, Oriented x3 - Skin Skin Exam: Dry, Warm Assessment and Plan - Assessment and Plan (Free Text) Assessment: ASSESSMENT: S/p Respiratory distress, s/p extubation COPD Colonic Distension/pseudo-obstruction, R/o Cdiff Chronic Hepatitis C H/O ETOH/heroin abuse Large GB, w/ no inflammatory changes/gb wall thickening, r/o cholecystitis PLAN: FU Hida scan clear liquids continue PPI on Solumedrol on Lovneox on IV/oral antibiotics as per ID stool CDiff recommend at this time no further enemas or relistor to be given may benefit from rectal tube for decompression Seen and discussed w/ Dr. Sun.
--- NOTE | 2017-03-24 14:08 | CP.PCM.PN ---
<KareenBraselton - Last Filed: 03/24/17 16:31> Subjective - Date & Time of Evaluation Date of Evaluation: 03/24/17 Time of Evaluation: 07:05 - Subjective Subjective: Patient seen and examined at bedside. Per nursing the patient had a rough night of sleep. She still reports diffuse abdominal pain and lightheadedness and dizziness. The patient denies any fevers, chills, nausea, vomiting, syncopal episodes, changes in vision, or any other complaints. Objective - Vital Signs/Intake and Output Vital Signs (last 24 hours): Temp Pulse Resp BP Pulse Ox 98.6 F 88 57 H 124/84 96 03/24/17 04:00 03/24/17 06:00 03/24/17 05:00 03/24/17 04:00 03/24/17 04:00 Intake and Output: 03/24/17 03/24/17 06:59 18:59 Intake Total 740 Output Total 850 Balance -110 - Medications Medications: Current Medications Docusate Sodium (Colace Liquid) 100 mg PO TID [facility] Last Admin: 03/24/17 13:40 Dose: 100 mg Doxycycline Hyclate (Doryx) 100 mg PO Q12 JACK PRN Reason: Protocol Stop: 03/31/17 10:01 Last Admin: 03/24/17 10:34 Dose: 100 mg Enoxaparin Sodium (Lovenox) 40 mg SC DAILY JACK PRN Reason: Protocol Last Admin: 03/24/17 09:21 Dose: 40 mg Folic Acid (Folic Acid) 1 mg PO DAILY [facility] Last Admin: 03/24/17 10:34 Dose: 1 mg Cefepime HCl (Maxipime 1gm) 1 gm in 100 mls @ 100 mls/hr IVPB Q8 JACK PRN Reason: Protocol Stop: 03/31/17 14:01 Last Admin: 03/24/17 13:41 Dose: 100 mls/hr Lactated Ringer's (Lactated Ringer's) 1,000 mls @ 100 mls/hr IV .Q10H [facility] Stop: 03/25/17 23:46 Last Admin: 03/24/17 00:27 Dose: 100 mls/hr Levalbuterol HCl (Xopenex) 0.63 mg IH [id number] PRN PRN Reason: Shortness of Breath Last Admin: 03/23/17 07:58 Dose: 0.63 mg Lorazepam (Ativan) 2 mg IVP Q4H PRN; Protocol PRN Reason: Symptoms of alcohol withdrawl Last Admin: 03/24/17 13:45 Dose: 2 mg Lorazepam (Ativan) 1 mg IVP Q6H JACK PRN Reason: Protocol Last Admin: 03/24/17 10:42 Dose: 1 mg Methylprednisolone (Solu-Medrol) 40 mg IVP Q12 [facility] Last Admin: 03/24/17 09:20 Dose: 40 mg Multivitamins (Thera Tab) 1 tab PO 0800 [facility] Last Admin: 03/24/17 10:34 Dose: 1 tab Nicotine (Nicoderm Cq) 1 patch TD DAILY [facility] Last Admin: 03/24/17 09:20 Dose: 1 patch Pantoprazole Sodium (Protonix Ec Tab) 40 mg PO 0600 [facility] Last Admin: 03/24/17 05:11 Dose: 40 mg Thiamine HCl (Vitamin B1 Tab) 100 mg PO DAILY [facility] Last Admin: 03/24/17 10:34 Dose: 100 mg - Labs Labs: 03/24/17 05:10 03/24/17 05:02 PT 10.3 SECONDS (9.4-12.5) 03/21/17 19:25 INR 0.95 (0.93-1.08) 03/21/17 19:25 APTT 25.1 Seconds (25.1-36.5) 03/21/17 19:25 - Head Exam Head Exam: ATRAUMATIC, NORMAL INSPECTION, NORMOCEPHALIC - Eye Exam Eye Exam: EOMI, Normal appearance, PERRL. absent: Periorbital tenderness Pupil Exam: NORMAL ACCOMODATION, PERRL. absent: Irregular, Unequal - ENT Exam ENT Exam: Mucous Membranes Moist, Normal Exam, Normal Oropharynx - Neck Exam Neck Exam: Normal Inspection. absent: Lymphadenopathy, Thyromegaly - Respiratory Exam Respiratory Exam: Decreased Breath Sounds, Wheezes. absent: Chest Wall Tenderness, Prolonged Expiratory Phase, Respiratory Distress - Cardiovascular Exam Cardiovascular Exam: REGULAR RHYTHM, +S1, +S2 - GI/Abdominal Exam GI & Abdominal Exam: Soft, Normal Bowel Sounds. absent: Rigid, Hyperactive Bowel Sounds - Extremities Exam Extremities Exam: Full ROM. absent: Joint Swelling, Pedal Edema, Tenderness - Back Exam Back Exam: NORMAL INSPECTION. absent: CVA tenderness (L), CVA tenderness (R), paraspinal tenderness - Neurological Exam Neurological Exam: Alert, CN II-XII Intact - Psychiatric Exam Psychiatric exam: Normal Affect, Normal Mood - Skin Skin Exam: Dry, Intact Assessment and Plan - Assessment and Plan (Free Text) Assessment: 46 year old female with a past medical history of COPD, asthma, alcohol and heroin abuse and hepatitis C who is being admitted for respiratory failure 2/2 COPD exacerbation. Plan: Neurological Nonfocal, no acute deficits Continue to monitor Cardiovascular HD stable No acute findings On monitor in ICU Pulmnologic CAP in the setting of asthma and COPD Continue Maxipime and Doxycycline. Patient still wheezing and tachypnic. Continue solumedrol 40mg IVP Q12h Continue Xopenex GI Acute onset Abdominal Pain: Ileus Abdominal U/S showed large gallstones in the gallbladder neck. Abdominal CT showed diffusely dilated colon consistent with ileus Surgery consulted. Rec's appreciated. Will continue conservative management. GI consulted. GI rec's appreciated. HIDA scan taken. Will f/u with results NPO slowly advanced to clear liquid diet per GI recommendations. Nephro/electrolytes Repleted electrolytes Will continue to monitor with serial CMP's. ID ID consulted and Rec's appreciated. Leukocytosis but afebrile and on steroids Continue Maxipime and Doxycline. Sputum, MRSA, Urine cultures negative. Blood cultures (-)48 hours. Expected to discontinue antibiotics pending final blood culture result. Heme Leukocytosis but on steroids both at home and during multiple ER visits Will monitor GI/DVT ppx: protonix/lovenox <Juli Louise B - Last Filed: 03/24/17 19:00> Objective - Vital Signs/Intake and Output Vital Signs (last 24 hours): Temp Pulse Resp BP Pulse Ox 97 F L 111 H 19 136/87 95 03/24/17 18:05 03/24/17 18:05 03/24/17 18:05 03/24/17 18:05 03/24/17 13:53 Intake and Output: 03/24/17 03/24/17 06:59 18:59 Intake Total 740 1380 Output Total 850 1000 Balance -110 380 - Medications Medications: Current Medications Docusate Sodium (Colace Liquid) 100 mg PO TID [facility] Last Admin: 03/24/17 17:40 Dose: 100 mg Doxycycline Hyclate (Doryx) 100 mg PO Q12 JACK PRN Reason: Protocol Stop: 03/31/17 10:01 Last Admin: 03/24/17 10:34 Dose: 100 mg Enoxaparin Sodium (Lovenox) 40 mg SC DAILY JACK PRN Reason: Protocol Last Admin: 03/24/17 09:21 Dose: 40 mg Folic Acid (Folic Acid) 1 mg PO DAILY [facility] Last Admin: 03/24/17 10:34 Dose: 1 mg Cefepime HCl (Maxipime 1gm) 1 gm in 100 mls @ 100 mls/hr IVPB Q8 JACK PRN Reason: Protocol Stop: 03/31/17 14:01 Last Admin: 03/24/17 13:41 Dose: 100 mls/hr Lactated Ringer's (Lactated Ringer's) 1,000 mls @ 100 mls/hr IV .Q10H JACK Stop: 03/25/17 23:46 Last Admin: 03/24/17 16:56 Dose: 100 mls/hr Levalbuterol HCl (Xopenex) 0.63 mg IH [id number] PRN PRN Reason: Shortness of Breath Last Admin: 03/23/17 07:58 Dose: 0.63 mg Lorazepam (Ativan) 2 mg IVP Q4H PRN; Protocol PRN Reason: Symptoms of alcohol withdrawl Last Admin: 03/24/17 13:45 Dose: 2 mg Lorazepam (Ativan) 1 mg IVP Q6H JACK PRN Reason: Protocol Last Admin: 03/24/17 16:54 Dose: 1 mg Methylprednisolone (Solu-Medrol) 40 mg IVP Q12 JACK Last Admin: 03/24/17 09:20 Dose: 40 mg Multivitamins (Thera Tab) 1 tab PO 0800 [facility]ACK Last Admin: 03/24/17 10:34 Dose: 1 tab Nicotine (Nicoderm Cq) 1 patch TD DAILY [facility] Last Admin: 03/24/17 09:20 Dose: 1 patch Pantoprazole Sodium (Protonix Ec Tab) 40 mg PO 0600 JACK Last Admin: 03/24/17 05:11 Dose: 40 mg Thiamine HCl (Vitamin B1 Tab) 100 mg PO DAILY [facility] Last Admin: 03/24/17 10:34 Dose: 100 mg - Labs Labs: 03/24/17 05:10 03/24/17 05:02 PT 10.3 SECONDS (9.4-12.5) 03/21/17 19:25 INR 0.95 (0.93-1.08) 03/21/17 19:25 APTT 25.1 Seconds (25.1-36.5) 03/21/17 19:25 Attending/Attestation - Attestation I have personally seen and examined this patient.: Yes I have fully participated in the care of the patient.: Yes I have reviewed all pertinent clinical information, including history, physical exam and plan: Yes Notes (Text): I have seen and examined the patient at bedside. Agree with the above note with the following additions/ exceptions: Briefly this is 46 year old female with history of tobacco use, COPD, asthma, alcohol and heroin abuse, and hepatitis C who came for evaluation of dyspnea x few days [employer]. She was intubated and got extubated 2 days ago. Complains of cough, sputum production, headache, body aches, abdominal pain and significant abdominal distension. CT abdomen revealed colonic ileus and large gall stone. She was made NPO and was advanced to clears. Denies any nausea or vomiting. GI and surgery consult appreciated. Discussed with Dr Sun who recommended to insert rectal tube and advised to avoid fleet enema or relistor. She also has leukocytosis which is improving. There is no diarrhea. She has elevated LFT's Cultures are negative so far. Continue IV solumedrol, antibiotics (cefepime and doxy). Continue ativan prn and jack. Patient is homeless. Upon discharge patient will follow up with PMD of choice. Dr Juli Louise
--- NOTE | 2017-03-24 14:49 | NM ---
PROCEDURE: Nuclear Medicine Hepatobiliary Scan HISTORY: abdominal pain COMPARISON: 03/22/2017 abdominal ultrasound TECHNIQUE: 6.2 mCi of technetium 99m Mebrofenin was administered intravenously. Planar images of the abdomen were obtained at 5 min intervals to 60 mins. Delayed images were also obtained. FINDINGS: LIVER: Timely and homogenous uptake. COMMON BILE DUCT: identified at 15 mins. GALLBLADDER: identified at 15 mins. SMALL BOWEL: Identified at 30 mins. IMPRESSION: Normal Hepatobiliary Scan. The cystic duct is patent.
[2017-03-24] MEDS: Levalbuterol 0.63 MG/3 ML Inhal Soln UD IH PRN ×2 (20:01→23:28)
[2017-03-24] MEDS ORDERED: guaiFENesin 100 mg/5 ml Syrup UD PO ONE (20:46)
[2017-03-25] MEDS: Lactated Ringer's 1,000 ML IV SCH ×3 (06:01→23:25)
[2017-03-25] MEDS: Pantoprazole 40 mg EC Tab PO SCH (06:02)
[2017-03-25] MEDS: Cefepime 1gm in NS 100ml 1 GM/100 ML BAG IVPB SCH (06:02)
[2017-03-25 07:58] LABS: BASO # 0.01 K/mm3 (0.0-2.0); BASO % 0.1 % (0.0-3.0); GRAN # 11.64 (1.4-6.5); GRAN % 81.4 % (50.0-68.0); HEMATOCRIT 38.2 % (36.0-48.0); LYMPH # 1.5 (1.2-3.4); LYMPH % 10.3 % (22.0-35.0); MEAN CELL VOLUME 99.2 fl (80.0-105.0); MEAN CORPUSCULAR HEMOGLOBIN 32.2 pg (25.0-35.0); MEAN CORPUSCULAR HGB CONC 32.5 g/dl (31.0-37.0); MEAN PLATELET VOLUME 9.4 fl (7.0-11.0); MONO # 1.2 (0.1-0.6); MONO % 8.2 % (1.0-6.0); RED CELL DISTRIBUTION WIDTH 14.2 % (11.5-14.5); WHITE BLOOD COUNT 14.3 10^3/ul (4.5-11.0)
[2017-03-25] MEDS: Multivitamin Therapeutic Tab PO SCH (08:18)
[2017-03-25 08:35] LABS: ALB/GLOB RATIO 1.1 (1.1-1.8); ALKALINE PHOSPHATASE 67 U/L (38-126); ALT/SGPT 75 U/L (7-56); AST/SGOT 38 U/L (14-36); BILIRUBIN,TOTAL 0.5 mg/dL (0.2-1.3); BLOOD UREA NITROGEN 12 mg/dL (7-21); CALCIUM 8.4 mg/dL (8.4-10.5); CARBON DIOXIDE 36 mmol/L (21-33); CHLORIDE 97 mmol/L (98-107); GFR AFRICAN-AMERICAN > 60; GLUCOSE,RANDOM 114 mg/dL (70-110); POTASSIUM 4.1 mmol/L (3.6-5.0); SODIUM 137 mmol/L (132-148); TOTAL PROTEIN 5.7 g/dL (5.8-8.3)
--- NOTE | 2017-03-25 09:00 | CP.PCM.PN ---
Subjective - Date & Time of Evaluation Date of Evaluation: 03/25/17 Time of Evaluation: 08:00 - Subjective Subjective: General Surgery- Dr. Gongora Patients seen and examined at bedside this AM. no acute events overnight. Passing flatus. + BM small yesterday. currently has appetite. denies N/V/D F/C/ CP/SOB Objective - Vital Signs/Intake and Output Vital Signs (last 24 hours): Temp Pulse Resp BP Pulse Ox 98.3 F 89 18 158/87 H 98 03/25/17 06:00 03/25/17 06:00 03/25/17 06:00 03/25/17 06:00 03/25/17 06:00 Intake and Output: 03/25/17 03/25/17 06:59 18:59 Intake Total 900 Balance 900 - Medications Medications: Current Medications Docusate Sodium (Colace Liquid) 100 mg PO TID [facility] Last Admin: 03/24/17 17:40 Dose: 100 mg Doxycycline Hyclate (Doryx) 100 mg PO Q12 JACK PRN Reason: Protocol Stop: 03/31/17 10:01 Last Admin: 03/24/17 21:18 Dose: 100 mg Enoxaparin Sodium (Lovenox) 40 mg SC DAILY JACK PRN Reason: Protocol Last Admin: 03/24/17 09:21 Dose: 40 mg Folic Acid (Folic Acid) 1 mg PO DAILY [facility] Last Admin: 03/24/17 10:34 Dose: 1 mg Cefepime HCl (Maxipime 1gm) 1 gm in 100 mls @ 100 mls/hr IVPB Q8 JACK PRN Reason: Protocol Stop: 03/31/17 14:01 Last Admin: 03/25/17 06:02 Dose: 100 mls/hr Lactated Ringer's (Lactated Ringer's) 1,000 mls @ 100 mls/hr IV .Q10H JACK Stop: 03/25/17 23:46 Last Admin: 03/25/17 06:01 Dose: Not Given Levalbuterol HCl (Xopenex) 0.63 mg IH [id number] PRN PRN Reason: Shortness of Breath Last Admin: 03/24/17 23:28 Dose: 0.63 mg Lorazepam (Ativan) 2 mg IVP Q4H PRN; Protocol PRN Reason: Symptoms of alcohol withdrawl Last Admin: 03/24/17 13:45 Dose: 2 mg Lorazepam (Ativan) 1 mg IVP Q6H [facility] PRN Reason: Protocol Last Admin: 03/25/17 06:01 Dose: 1 mg Methylprednisolone (Solu-Medrol) 40 mg IVP Q12 [facility] Last Admin: 03/24/17 21:17 Dose: 40 mg Multivitamins (Thera Tab) 1 tab PO 0800 [facility] Last Admin: 03/25/17 08:18 Dose: 1 tab Nicotine (Nicoderm Cq) 1 patch TD DAILY [facility] Last Admin: 03/24/17 09:20 Dose: 1 patch Pantoprazole Sodium (Protonix Ec Tab) 40 mg PO 0600 [facility] Last Admin: 03/25/17 06:02 Dose: 40 mg Thiamine HCl (Vitamin B1 Tab) 100 mg PO DAILY [facility] Last Admin: 03/24/17 10:34 Dose: 100 mg - Labs Labs: 03/25/17 07:30 03/25/17 07:30 PT 10.3 SECONDS (9.4-12.5) 03/21/17 19:25 INR 0.95 (0.93-1.08) 03/21/17 19:25 APTT 25.1 Seconds (25.1-36.5) 03/21/17 19:25 - Constitutional Appears: Non-toxic, No Acute Distress - Head Exam Additional comments: male pattern facial hair growth - Eye Exam Eye Exam: EOMI. absent: Scleral icterus - ENT Exam ENT Exam: Mucous Membranes Moist - Respiratory Exam Respiratory Exam: NORMAL BREATHING PATTERN. absent: Accessory Muscle Use, Respiratory Distress - Cardiovascular Exam Cardiovascular Exam: +S1, +S2 - GI/Abdominal Exam GI & Abdominal Exam: Distended, Soft. absent: Firm, Guarding, Rigid, Tenderness , Rebound Additional comments: typanic & Distended - Extremities Exam Extremities Exam: absent: Calf Tenderness - Neurological Exam Neurological Exam: Alert, Awake, Oriented x3 - Psychiatric Exam Psychiatric exam: Normal Affect - Skin Skin Exam: Intact, Warm Assessment and Plan - Assessment and Plan (Free Text) Assessment: 46F w/ colonic ileus Plan: - Advance diet as tolerated - f/u GI recs - No acute surgical intervention at this time - further recs per Dr. Rolan Monae PGY1
[2017-03-25] MEDS: Enoxaparin 40 mg Syringe SC SCH (09:57)
[2017-03-25] MEDS: MethylPREDNISolone 40 mg Vial IVP SCH ×2 (09:58→21:57)
--- NOTE | 2017-03-25 11:28 | CP.PCM.PN ---
<Joe Mathur - Last Filed: 03/25/17 11:32> Subjective - Date & Time of Evaluation Date of Evaluation: 03/25/17 Time of Evaluation: 08:25 - Subjective Subjective: Patient seen and examined at bedside. Per nursing no acute events occurred overnight. Today the patient is reporting some shortness of breath. The patient reports an improvement in abdominal pain. The patient denies any chest pain, lightheadedness, dizziness, chills, nausea, vomiting, syncopal episodes or any other complaints. Objective - Vital Signs/Intake and Output Vital Signs (last 24 hours): Temp Pulse Resp BP Pulse Ox 98.3 F 89 18 158/87 H 98 03/25/17 06:00 03/25/17 06:00 03/25/17 06:00 03/25/17 06:00 03/25/17 06:00 Intake and Output: 03/25/17 03/25/17 06:59 18:59 Intake Total 900 Balance 900 - Medications Medications: Current Medications Docusate Sodium (Colace Liquid) 100 mg PO TID [facility] Last Admin: 03/25/17 09:59 Dose: 100 mg Doxycycline Hyclate (Doryx) 100 mg PO Q12 JACK PRN Reason: Protocol Stop: 03/31/17 10:01 Last Admin: 03/25/17 09:57 Dose: 100 mg Enoxaparin Sodium (Lovenox) 40 mg SC DAILY JACK PRN Reason: Protocol Last Admin: 03/25/17 09:57 Dose: 40 mg Folic Acid (Folic Acid) 1 mg PO DAILY [facility] Last Admin: 03/25/17 09:57 Dose: 1 mg Lactated Ringer's (Lactated Ringer's) 1,000 mls @ 100 mls/hr IV .Q10H [facility]ACK Stop: 03/25/17 23:46 Last Admin: 03/25/17 06:01 Dose: Not Given Levalbuterol HCl (Xopenex) 0.63 mg IH [id number] PRN PRN Reason: Shortness of Breath Last Admin: 03/24/17 23:28 Dose: 0.63 mg Lorazepam (Ativan) 2 mg IVP Q4H PRN; Protocol PRN Reason: Symptoms of alcohol withdrawl Last Admin: 03/24/17 13:45 Dose: 2 mg Lorazepam (Ativan) 1 mg IVP Q6H [facility] PRN Reason: Protocol Last Admin: 03/25/17 09:57 Dose: 1 mg Methylprednisolone (Solu-Medrol) 40 mg IVP Q12 [facility] Last Admin: 03/25/17 09:58 Dose: 40 mg Multivitamins (Thera Tab) 1 tab PO 0800 [facility] Last Admin: 03/25/17 08:18 Dose: 1 tab Nicotine (Nicoderm Cq) 1 patch TD DAILY [facility] Last Admin: 03/25/17 09:57 Dose: 1 patch Pantoprazole Sodium (Protonix Ec Tab) 40 mg PO 0600 [facility] Last Admin: 03/25/17 06:02 Dose: 40 mg Thiamine HCl (Vitamin B1 Tab) 100 mg PO DAILY [facility] Last Admin: 03/25/17 09:57 Dose: 100 mg - Labs Labs: 03/25/17 07:30 03/25/17 07:30 PT 10.3 SECONDS (9.4-12.5) 03/21/17 19:25 INR 0.95 (0.93-1.08) 03/21/17 19:25 APTT 25.1 Seconds (25.1-36.5) 03/21/17 19:25 - Head Exam Head Exam: ATRAUMATIC, NORMAL INSPECTION, NORMOCEPHALIC - Eye Exam Eye Exam: EOMI, Normal appearance, PERRL Pupil Exam: NORMAL ACCOMODATION, PERRL. absent: Irregular, Unequal - ENT Exam ENT Exam: Mucous Membranes Moist, Normal Exam, Normal Oropharynx - Neck Exam Neck Exam: Normal Inspection. absent: Lymphadenopathy, Thyromegaly - Respiratory Exam Respiratory Exam: Clear to Ausculation Bilateral, NORMAL BREATHING PATTERN. absent: Chest Wall Tenderness, Prolonged Expiratory Phase, Respiratory Distress - Cardiovascular Exam Cardiovascular Exam: REGULAR RHYTHM, RRR, +S1, +S2. absent: Gallop, Rubs - GI/Abdominal Exam GI & Abdominal Exam: Soft, Tenderness, Normal Bowel Sounds - Extremities Exam Extremities Exam: Full ROM. absent: Joint Swelling, Pedal Edema, Tenderness - Back Exam Back Exam: NORMAL INSPECTION. absent: CVA tenderness (L), CVA tenderness (R), paraspinal tenderness - Neurological Exam Neurological Exam: Alert, Awake, CN II-XII Intact, Normal Gait - Psychiatric Exam Psychiatric exam: Normal Affect, Normal Mood - Skin Skin Exam: Dry, Intact, Normal Color Assessment and Plan - Assessment and Plan (Free Text) Assessment: 46 year old female with a past medical history of COPD, asthma, alcohol and heroin abuse and hepatitis C who is being admitted for respiratory failure 2/2 COPD exacerbation. Plan: Cardiovascular HD stable No acute findings On monitor in ICU Pulmnologic CAP in the setting of asthma and COPD Continue Maxipime and Doxycycline. Patient still wheezing and tachypnic. Continue solumedrol 40mg IVP Q12h Continue Xopenex GI Acute onset Abdominal Pain: Ileus Patient had two bowel movements yesterday per nursing staff. Abdominal U/S showed large gallstones in the gallbladder neck. Abdominal CT showed diffusely dilated colon consistent with ileus Surgery consulted. Rec's appreciated. Will continue conservative management. GI consulted. GI rec's appreciated. HIDA negative. Clear liquid diet as tolerated. Will advance as tolerated. Nephro/electrolytes Repleted electrolytes Will continue to monitor with serial CMP's. ID ID consulted and Rec's appreciated. Leukocytosis but afebrile and on steroids Continue Maxipime and Doxycline. Sputum, MRSA, Urine cultures negative. Blood cultures (-)72 hours. Expected to discontinue antibiotics pending final blood culture result. Heme Leukocytosis but on steroids both at home and during multiple ER visits Will monitor GI/DVT ppx: protonix/lovenox <Junaid Rouse - Last Filed: 03/26/17 11:40> Objective - Vital Signs/Intake and Output Vital Signs (last 24 hours): Temp Pulse Resp BP Pulse Ox 97.5 F L 73 20 151/92 H 100 03/26/17 06:00 03/26/17 06:00 03/26/17 06:00 03/26/17 06:00 03/26/17 06:00 Intake and Output: 03/26/17 03/26/17 06:59 18:59 Intake Total 600 Output Total 400 Balance 200 - Medications Medications: Current Medications Arformoterol Tartrate (Brovana) 15 mcg IH [id number] [facility] Budesonide (Pulmicort Respules) 0.5 mg IH [id number] [facility] Citalopram Hydrobromide (Celexa) 10 mg PO DAILY [facility] Docusate Sodium (Colace Liquid) 100 mg PO TID [facility] Last Admin: 03/26/17 10:08 Dose: 100 mg Doxycycline Hyclate (Doryx) 100 mg PO Q12 [facility]ACK PRN Reason: Protocol Stop: 03/31/17 10:01 Last Admin: 03/26/17 10:08 Dose: 100 mg Enoxaparin Sodium (Lovenox) 40 mg SC DAILY [facility] PRN Reason: Protocol Last Admin: 03/26/17 10:08 Dose: 40 mg Folic Acid (Folic Acid) 1 mg PO DAILY [facility] Last Admin: 03/26/17 10:08 Dose: 1 mg Guaifenesin/Dextromethorphan (Robitussin Dm) 10 ml PO Q4H PRN PRN Reason: Cough Levalbuterol HCl (Xopenex) 0.63 mg IH [id number] PRN PRN Reason: Shortness of Breath Last Admin: 03/25/17 19:21 Dose: 0.63 mg Lorazepam (Ativan) 2 mg IVP Q4H PRN; Protocol PRN Reason: Symptoms of alcohol withdrawl Last Admin: 03/24/17 13:45 Dose: 2 mg Lorazepam (Ativan) 1 mg IVP Q6H [facility]ACK PRN Reason: Protocol Last Admin: 03/26/17 10:11 Dose: 1 mg Methylprednisolone (Solu-Medrol) 30 mg IVP Q12 [facility] Multivitamins (Thera Tab) 1 tab PO 0800 [facility] Last Admin: 03/26/17 07:52 Dose: 1 tab Nicotine (Nicoderm Cq) 1 patch TD DAILY [facility] Last Admin: 03/26/17 10:08 Dose: 1 patch Pantoprazole Sodium (Protonix Ec Tab) 40 mg PO 0600 [facility] Last Admin: 03/26/17 05:26 Dose: 40 mg Thiamine HCl (Vitamin B1 Tab) 100 mg PO DAILY [facility] Last Admin: 03/26/17 10:08 Dose: 100 mg Trazodone HCl (Desyrel) 50 mg PO HS [facility] - Labs Labs: 03/26/17 06:00 03/26/17 06:00 PT 10.3 SECONDS (9.4-12.5) 03/21/17 19:25 INR 0.95 (0.93-1.08) 03/21/17 19:25 APTT 25.1 Seconds (25.1-36.5) 03/21/17 19:25 Attending/Attestation - Attestation I have personally seen and examined this patient.: Yes I have fully participated in the care of the patient.: Yes I have reviewed all pertinent clinical information, including history, physical exam and plan: Yes Notes (Text): 03/26/17 11:36 Attending note; Patient seen and examined with resident. Patient is a 46 year old female with history of tobacco use, COPD, asthma, alcohol and heroin abuse, and hepatitis C who came for evaluation of dyspnea. She was intubated and got extubated. Currently on oxygen nasal cannula. Shortness of breath is improving slowly. Abdominal distention; CT abdomen revealed colonic ileus. had bowel movement yesterday. Currently on clear liquid diet. Monitor closely. Will follow up with GI. Denies any nausea or vomiting. Surgery consult appreciated. HIDA scan is negative. She also has leukocytosis which is improving. Patient is on chronic steroid Treatment for uncontrolled COPD. Noncompliance with follow-up. Continues to smoke. Cultures are negative so far. Continue (cefepime and doxy). elevated LFT'; Improving slowly. secondary to continuous alcohol abuse. Alcohol cessation/smoking cessation is strongly advised. Homelessness. Upon discharge patient will follow up with PMD of choice or [facility]. Patient does not follow-up with any PMD as outpatient.
[2017-03-25] MEDS: Levalbuterol 0.63 MG/3 ML Inhal Soln UD IH PRN ×2 (14:18→19:21)
--- NOTE | 2017-03-25 17:52 | CP.PCM.PN ---
Subjective - Date & Time of Evaluation Date of Evaluation: 03/25/17 Time of Evaluation: 11:10 - Subjective Subjective: Comfortable, no fevers, not in distress. Objective - Vital Signs/Intake and Output Vital Signs (last 24 hours): Temp Pulse Resp BP Pulse Ox 98.3 F 89 18 158/87 H 98 03/25/17 06:00 03/25/17 06:00 03/25/17 06:00 03/25/17 06:00 03/25/17 06:00 Intake and Output: 03/25/17 03/25/17 06:59 18:59 Intake Total 900 Balance 900 - Medications Medications: Current Medications Docusate Sodium (Colace Liquid) 100 mg PO TID [facility] Last Admin: 03/24/17 17:40 Dose: 100 mg Doxycycline Hyclate (Doryx) 100 mg PO Q12 [facility]ACK PRN Reason: Protocol Stop: 03/31/17 10:01 Last Admin: 03/24/17 21:18 Dose: 100 mg Enoxaparin Sodium (Lovenox) 40 mg SC DAILY [facility] PRN Reason: Protocol Last Admin: 03/24/17 09:21 Dose: 40 mg Folic Acid (Folic Acid) 1 mg PO DAILY [facility] Last Admin: 03/24/17 10:34 Dose: 1 mg Lactated Ringer's (Lactated Ringer's) 1,000 mls @ 100 mls/hr IV .Q10H [facility] Stop: 03/25/17 23:46 Last Admin: 03/25/17 06:01 Dose: Not Given Levalbuterol HCl (Xopenex) 0.63 mg IH [id number] PRN PRN Reason: Shortness of Breath Last Admin: 03/24/17 23:28 Dose: 0.63 mg Lorazepam (Ativan) 2 mg IVP Q4H PRN; Protocol PRN Reason: Symptoms of alcohol withdrawl Last Admin: 03/24/17 13:45 Dose: 2 mg Lorazepam (Ativan) 1 mg IVP Q6H [facility]ACK PRN Reason: Protocol Last Admin: 03/25/17 06:01 Dose: 1 mg Methylprednisolone (Solu-Medrol) 40 mg IVP Q12 [facility] Last Admin: 03/24/17 21:17 Dose: 40 mg Multivitamins (Thera Tab) 1 tab PO 0800 [facility] Last Admin: 03/25/17 08:18 Dose: 1 tab Nicotine (Nicoderm Cq) 1 patch TD DAILY [facility] Last Admin: 03/24/17 09:20 Dose: 1 patch Pantoprazole Sodium (Protonix Ec Tab) 40 mg PO 0600 [facility] Last Admin: 03/25/17 06:02 Dose: 40 mg Thiamine HCl (Vitamin B1 Tab) 100 mg PO DAILY [facility] Last Admin: 03/24/17 10:34 Dose: 100 mg - Labs Labs: 03/25/17 07:30 03/25/17 07:30 PT 10.3 SECONDS (9.4-12.5) 03/21/17 19:25 INR 0.95 (0.93-1.08) 03/21/17 19:25 APTT 25.1 Seconds (25.1-36.5) 03/21/17 19:25 - Constitutional Appears: Non-toxic - Head Exam Head Exam: NORMAL INSPECTION - Respiratory Exam Respiratory Exam: Decreased Breath Sounds - Cardiovascular Exam Cardiovascular Exam: +S1, +S2 - GI/Abdominal Exam GI & Abdominal Exam: Soft. absent: Tenderness Assessment and Plan - Assessment and Plan (Free Text) Plan: Assessment systemic inflammatory response syndrome with no evidence of sepsis or infection so far in this patient S/P VDRF probably fom polysubstance abuse and COPD exacerbation, slowly improving Gallstones history of probable erythema nodosum on the right leg in a patient with history of Hepatitis C COPD Hepatitis C, chronic and active history of umbilical hernia polysubstance abuse with heavy alcohol use and active IV drug user (heroin) Plan on Doxycycline - cultures have been negative - will opt for short course of Doxycycline (i.e. 3-5 day course) patient should have outpatient follow up with an Hepatitis C specialist for further work up and treatment options
[2017-03-26] MEDS: Pantoprazole 40 mg EC Tab PO SCH (05:26)
[2017-03-26 06:55] LABS: BASO # 0.01 K/mm3 (0.0-2.0); BASO % 0.1 % (0.0-3.0); GRAN # 10.1 (1.4-6.5); GRAN % 80.2 % (50.0-68.0); HEMATOCRIT 38.6 % (36.0-48.0); LYMPH # 1.6 (1.2-3.4); LYMPH % 12.9 % (22.0-35.0); MEAN CELL VOLUME 99.7 fl (80.0-105.0); MEAN CORPUSCULAR HEMOGLOBIN 32.6 pg (25.0-35.0); MEAN CORPUSCULAR HGB CONC 32.6 g/dl (31.0-37.0); MEAN PLATELET VOLUME 9.7 fl (7.0-11.0); MONO # 0.9 (0.1-0.6); MONO % 6.8 % (1.0-6.0); WHITE BLOOD COUNT 12.6 10^3/ul (4.5-11.0)
[2017-03-26 07:07] LABS: ALB/GLOB RATIO 1.2 (1.1-1.8); ALKALINE PHOSPHATASE 64 U/L (38-126); ALT/SGPT 75 U/L (7-56); AST/SGOT 35 U/L (14-36); BILIRUBIN,TOTAL 0.4 mg/dL (0.2-1.3); BLOOD UREA NITROGEN 10 mg/dL (7-21); CALCIUM 8.4 mg/dL (8.4-10.5); CARBON DIOXIDE 39 mmol/L (21-33); CHLORIDE 93 mmol/L (98-107); GFR AFRICAN-AMERICAN > 60; GLUCOSE,RANDOM 120 mg/dL (70-110); SODIUM 137 mmol/L (132-148); TOTAL PROTEIN 5.5 g/dL (5.8-8.3)
[2017-03-26] MEDS: Multivitamin Therapeutic Tab PO SCH (07:52)
[2017-03-26] MEDS: Enoxaparin 40 mg Syringe SC SCH (10:08)
[2017-03-26] MEDS: MethylPREDNISolone 40 mg Vial IVP SCH ×2 (10:08→22:40)
--- NOTE | 2017-03-26 10:34 | CP.PCM.PN ---
<Mery Colon - Last Filed: 03/26/17 11:02> Subjective - Date & Time of Evaluation Date of Evaluation: 03/26/17 Time of Evaluation: 08:30 - Subjective Subjective: Mery Colon DO, PGY-1: Hospitalist Service Patient seen and examined at bedside. Patient reports passing flatus, decrease in abdominal distenstion, and passing a bowel movement 1.5 days ago. Patient denies any abdominal pain, worsening dyspnea, or productive sputum. Nurse reports no events overnight. Objective - Vital Signs/Intake and Output Vital Signs (last 24 hours): Temp Pulse Resp BP Pulse Ox 97.5 F L 73 20 151/92 H 100 03/26/17 06:00 03/26/17 06:00 03/26/17 06:00 03/26/17 06:00 03/26/17 06:00 Intake and Output: 03/26/17 03/26/17 06:59 18:59 Intake Total 600 Output Total 400 Balance 200 - Medications Medications: Current Medications Docusate Sodium (Colace Liquid) 100 mg PO TID [facility] Last Admin: 03/26/17 10:08 Dose: 100 mg Doxycycline Hyclate (Doryx) 100 mg PO Q12 JACK PRN Reason: Protocol Stop: 03/31/17 10:01 Last Admin: 03/26/17 10:08 Dose: 100 mg Enoxaparin Sodium (Lovenox) 40 mg SC DAILY [facility]ACK PRN Reason: Protocol Last Admin: 03/26/17 10:08 Dose: 40 mg Folic Acid (Folic Acid) 1 mg PO DAILY [facility] Last Admin: 03/26/17 10:08 Dose: 1 mg Levalbuterol HCl (Xopenex) 0.63 mg IH [id number] PRN PRN Reason: Shortness of Breath Last Admin: 03/25/17 19:21 Dose: 0.63 mg Lorazepam (Ativan) 2 mg IVP Q4H PRN; Protocol PRN Reason: Symptoms of alcohol withdrawl Last Admin: 03/24/17 13:45 Dose: 2 mg Lorazepam (Ativan) 1 mg IVP Q6H JACK PRN Reason: Protocol Last Admin: 03/26/17 10:11 Dose: 1 mg Methylprednisolone (Solu-Medrol) 40 mg IVP Q12 [facility] Last Admin: 03/26/17 10:08 Dose: 40 mg Multivitamins (Thera Tab) 1 tab PO 0800 [facility] Last Admin: 03/26/17 07:52 Dose: 1 tab Nicotine (Nicoderm Cq) 1 patch TD DAILY [facility] Last Admin: 03/26/17 10:08 Dose: 1 patch Pantoprazole Sodium (Protonix Ec Tab) 40 mg PO 0600 [facility] Last Admin: 03/26/17 05:26 Dose: 40 mg Thiamine HCl (Vitamin B1 Tab) 100 mg PO DAILY [facility] Last Admin: 03/26/17 10:08 Dose: 100 mg - Labs Labs: 03/26/17 06:00 03/26/17 06:00 PT 10.3 SECONDS (9.4-12.5) 03/21/17 19:25 INR 0.95 (0.93-1.08) 03/21/17 19:25 APTT 25.1 Seconds (25.1-36.5) 03/21/17 19:25 - Constitutional Appears: Well, Non-toxic, No Acute Distress - Head Exam Head Exam: ATRAUMATIC, NORMOCEPHALIC - Eye Exam Eye Exam: EOMI, Normal appearance - ENT Exam ENT Exam: Mucous Membranes Moist, Normal Oropharynx - Neck Exam Neck Exam: Normal Inspection. absent: Lymphadenopathy - Respiratory Exam Respiratory Exam: Wheezes (scaterred) - Cardiovascular Exam Cardiovascular Exam: RRR, +S1, +S2 - GI/Abdominal Exam GI & Abdominal Exam: Distended (mildly), Soft, Normal Bowel Sounds. absent: Rebound - Extremities Exam Extremities Exam: Normal Capillary Refill, Normal Inspection - Back Exam Back Exam: NORMAL INSPECTION. absent: CVA tenderness (L), CVA tenderness (R) - Neurological Exam Neurological Exam: Alert, CN II-XII Intact, Oriented x3 - Psychiatric Exam Psychiatric exam: Normal Affect, Normal Mood - Skin Skin Exam: Dry, Intact, Normal Color, Warm Assessment and Plan - Assessment and Plan (Free Text) Assessment: 46 year old female with a past medical history of COPD, asthma, alcohol and heroin abuse and hepatitis C who is being admitted for respiratory failure 2/2 COPD exacerbation. Plan: 1) Asthma exacerbation with possible pneumonia: patient extubated, breath sounds exhibit scattered wheezes - Doxycycline 100 mg q12h - Solumedrol taper 30mg IVP Q12h - Xopenox q6h [facility] 2) Adynamic illeus: Patient is less distended, passed BM - Full liquid diet for lunch and soft diet for dinner - Surgery and GI recommendations appreciated 3) Alcohol withdrawal - Ativan 1 mg q6h JACK - Ativan 2 mg IVP q4h PRN - Multivitamin, folic acid, thiamine 4) GI/DVT prophylaxis - Protonix/lovenox 5) Nicotine dependence - Nicoderm patch 14 mg transdermal patch 6) Affective disorder - Celexa 10 mg PO daily - Trazadone 50 mg nightly <Junaid Rouse - Last Filed: 03/26/17 11:43> Objective - Vital Signs/Intake and Output Vital Signs (last 24 hours): Temp Pulse Resp BP Pulse Ox 97.5 F L 77 20 151/92 H 100 03/26/17 06:00 03/26/17 10:00 03/26/17 06:00 03/26/17 06:00 03/26/17 06:00 Intake and Output: 03/26/17 03/26/17 06:59 18:59 Intake Total 600 Output Total 400 Balance 200 - Medications Medications: Current Medications Arformoterol Tartrate (Brovana) 15 mcg IH [id number] [facility] Budesonide (Pulmicort Respules) 0.5 mg IH [id number] [facility] Citalopram Hydrobromide (Celexa) 10 mg PO DAILY [facility] Docusate Sodium (Colace Liquid) 100 mg PO TID [facility] Last Admin: 03/26/17 10:08 Dose: 100 mg Doxycycline Hyclate (Doryx) 100 mg PO Q12 [facility]ACK PRN Reason: Protocol Stop: 03/31/17 10:01 Last Admin: 03/26/17 10:08 Dose: 100 mg Enoxaparin Sodium (Lovenox) 40 mg SC DAILY [facility] PRN Reason: Protocol Last Admin: 03/26/17 10:08 Dose: 40 mg Folic Acid (Folic Acid) 1 mg PO DAILY [facility] Last Admin: 03/26/17 10:08 Dose: 1 mg Guaifenesin/Dextromethorphan (Robitussin Dm) 10 ml PO Q4H PRN PRN Reason: Cough Levalbuterol HCl (Xopenex) 0.63 mg IH [id number] PRN PRN Reason: Shortness of Breath Last Admin: 03/25/17 19:21 Dose: 0.63 mg Lorazepam (Ativan) 2 mg IVP Q4H PRN; Protocol PRN Reason: Symptoms of alcohol withdrawl Last Admin: 03/24/17 13:45 Dose: 2 mg Lorazepam (Ativan) 1 mg IVP Q6H [facility]ACK PRN Reason: Protocol Last Admin: 03/26/17 10:11 Dose: 1 mg Methylprednisolone (Solu-Medrol) 30 mg IVP Q12 [facility] Multivitamins (Thera Tab) 1 tab PO 0800 [facility] Last Admin: 03/26/17 07:52 Dose: 1 tab Nicotine (Nicoderm Cq) 1 patch TD DAILY [facility] Last Admin: 03/26/17 10:08 Dose: 1 patch Pantoprazole Sodium (Protonix Ec Tab) 40 mg PO 0600 [facility] Last Admin: 03/26/17 05:26 Dose: 40 mg Thiamine HCl (Vitamin B1 Tab) 100 mg PO DAILY [facility] Last Admin: 03/26/17 10:08 Dose: 100 mg Trazodone HCl (Desyrel) 50 mg PO HS [facility] - Labs Labs: 03/26/17 06:00 03/26/17 06:00 PT 10.3 SECONDS (9.4-12.5) 03/21/17 19:25 INR 0.95 (0.93-1.08) 03/21/17 19:25 APTT 25.1 Seconds (25.1-36.5) 03/21/17 19:25 Attending/Attestation - Attestation I have personally seen and examined this patient.: Yes I have fully participated in the care of the patient.: Yes I have reviewed all pertinent clinical information, including history, physical exam and plan: Yes Notes (Text): 03/26/17 11:41 Attending note; Patient seen and examined with resident. Patient is a 46 year old female with history of tobacco use, COPD, asthma, alcohol and heroin abuse, and hepatitis C who came for evaluation of dyspnea. status post extubation. Currently on oxygen nasal cannula. Shortness of breath is improving slowly. Abdominal distention; CT abdomen revealed colonic ileus. had bowel movement yesterday. Currently on clear liquid diet. advance to soft diet tonight. She also has leukocytosis which is improving. Patient is on chronic steroid Treatment for uncontrolled COPD. Noncompliance with follow-up. Continues to smoke. Cultures are negative so far. Continue (cefepime and doxy). elevated LFT'; Improving slowly. secondary to continuous alcohol abuse. Alcohol cessation/smoking cessation is strongly advised. Homelessness. Upon discharge patient will follow up with PMD of choice or [facility] [place] [facility]. Patient does not follow-up with any PMD as outpatient.
--- NOTE | 2017-03-26 11:16 | CP.PCM.PN ---
Subjective - Date & Time of Evaluation Date of Evaluation: 03/25/17 Time of Evaluation: 14:45 - Subjective Subjective: patient had 2 bowel movements small amounts loose. No C. difficile was sent tolerating liquid diet. Patient feels abdomen discomfort is much better Objective - Vital Signs/Intake and Output Vital Signs (last 24 hours): Temp Pulse Resp BP Pulse Ox 98.7 F 102 H 20 131/86 98 03/25/17 12:00 03/25/17 18:00 03/25/17 12:00 03/25/17 12:00 03/25/17 06:00 - Medications Medications: Current Medications Docusate Sodium (Colace Liquid) 100 mg PO TID [facility] Last Admin: 03/25/17 18:25 Dose: 100 mg Doxycycline Hyclate (Doryx) 100 mg PO Q12 [facility]ACK PRN Reason: Protocol Stop: 03/31/17 10:01 Last Admin: 03/25/17 21:53 Dose: 100 mg Enoxaparin Sodium (Lovenox) 40 mg SC DAILY [facility] PRN Reason: Protocol Last Admin: 03/25/17 09:57 Dose: 40 mg Folic Acid (Folic Acid) 1 mg PO DAILY [facility] Last Admin: 03/25/17 09:57 Dose: 1 mg Levalbuterol HCl (Xopenex) 0.63 mg IH [id number] PRN PRN Reason: Shortness of Breath Last Admin: 03/25/17 19:21 Dose: 0.63 mg Lorazepam (Ativan) 2 mg IVP Q4H PRN; Protocol PRN Reason: Symptoms of alcohol withdrawl Last Admin: 03/24/17 13:45 Dose: 2 mg Lorazepam (Ativan) 1 mg IVP Q6H [facility] PRN Reason: Protocol Last Admin: 03/25/17 21:53 Dose: 1 mg Methylprednisolone (Solu-Medrol) 40 mg IVP Q12 [facility] Last Admin: 03/25/17 21:57 Dose: 40 mg Multivitamins (Thera Tab) 1 tab PO 0800 [facility] Last Admin: 03/25/17 08:18 Dose: 1 tab Nicotine (Nicoderm Cq) 1 patch TD DAILY [facility] Last Admin: 03/25/17 09:57 Dose: 1 patch Pantoprazole Sodium (Protonix Ec Tab) 40 mg PO 0600 [facility] Last Admin: 03/25/17 06:02 Dose: 40 mg Thiamine HCl (Vitamin B1 Tab) 100 mg PO DAILY [facility] Last Admin: 03/25/17 09:57 Dose: 100 mg - Labs Labs: 03/25/17 07:30 03/25/17 07:30 PT 10.3 SECONDS (9.4-12.5) 03/21/17 19:25 INR 0.95 (0.93-1.08) 03/21/17 19:25 APTT 25.1 Seconds (25.1-36.5) 03/21/17 19:25 - Constitutional Appears: Well, No Acute Distress - Head Exam Head Exam: ATRAUMATIC, NORMOCEPHALIC - Eye Exam Eye Exam: EOMI, PERRL - ENT Exam ENT Exam: Mucous Membranes Moist, Normal Oropharynx - Neck Exam Neck Exam: Full ROM. absent: Lymphadenopathy - Respiratory Exam Respiratory Exam: Clear to Ausculation Bilateral, Rhonchi. absent: Accessory Muscle Use Additional comments: scattered - Cardiovascular Exam Cardiovascular Exam: +S1, +S2. absent: JVD - GI/Abdominal Exam GI & Abdominal Exam: Soft. absent: Normal Bowel Sounds Additional comments: less distended - Extremities Exam Extremities Exam: Full ROM. absent: Calf Tenderness - Neurological Exam Neurological Exam: Alert, Awake, Oriented x3 Assessment and Plan - Assessment and Plan (Free Text) Assessment: 1. Abdominal distention mainly colonic. No significant fecal impaction has loose bowel movements. Tolerating liquid diet Patient is on steroids and antibiotics rule out C. difficile 2. Asthma COPD on steroids 3. Pneumonia sepsis 4. Abnormal LFTs and gallstones negative HIDA scan 5. History of polysubstance abuse Plan: 1. Continue the antibiotics as per ID 2. Slowly advance the diet to full liquid 10 to soft diet 3. Stool for C. difficile 4. Follow-up LFTs
[2017-03-26] MEDS: guaiFENesin DM 200 mg-20 mg/10 ml UD PO PRN (11:57)
--- NOTE | 2017-03-26 16:53 | CP.PCM.PN ---
Subjective - Date & Time of Evaluation Date of Evaluation: 03/26/17 Time of Evaluation: 10:40 - Subjective Subjective: Comfortable in bed, no fevers, not in distress. Objective - Vital Signs/Intake and Output Vital Signs (last 24 hours): Temp Pulse Resp BP Pulse Ox 97.5 F L 73 20 151/92 H 100 03/26/17 06:00 03/26/17 06:00 03/26/17 06:00 03/26/17 06:00 03/26/17 06:00 Intake and Output: 03/26/17 03/26/17 06:59 18:59 Intake Total 600 Output Total 400 Balance 200 - Medications Medications: Current Medications Docusate Sodium (Colace Liquid) 100 mg PO TID [facility] Last Admin: 03/25/17 18:25 Dose: 100 mg Doxycycline Hyclate (Doryx) 100 mg PO Q12 JACK PRN Reason: Protocol Stop: 03/31/17 10:01 Last Admin: 03/25/17 21:53 Dose: 100 mg Enoxaparin Sodium (Lovenox) 40 mg SC DAILY [facility]ACK PRN Reason: Protocol Last Admin: 03/25/17 09:57 Dose: 40 mg Folic Acid (Folic Acid) 1 mg PO DAILY [facility] Last Admin: 03/25/17 09:57 Dose: 1 mg Levalbuterol HCl (Xopenex) 0.63 mg IH [id number] PRN PRN Reason: Shortness of Breath Last Admin: 03/25/17 19:21 Dose: 0.63 mg Lorazepam (Ativan) 2 mg IVP Q4H PRN; Protocol PRN Reason: Symptoms of alcohol withdrawl Last Admin: 03/24/17 13:45 Dose: 2 mg Lorazepam (Ativan) 1 mg IVP Q6H JACK PRN Reason: Protocol Last Admin: 03/26/17 04:23 Dose: 1 mg Methylprednisolone (Solu-Medrol) 40 mg IVP Q12 [facility] Last Admin: 03/25/17 21:57 Dose: 40 mg Multivitamins (Thera Tab) 1 tab PO 0800 [facility]ACK Last Admin: 03/26/17 07:52 Dose: 1 tab Nicotine (Nicoderm Cq) 1 patch TD DAILY [facility] Last Admin: 03/25/17 09:57 Dose: 1 patch Pantoprazole Sodium (Protonix Ec Tab) 40 mg PO 0600 [facility] Last Admin: 03/26/17 05:26 Dose: 40 mg Thiamine HCl (Vitamin B1 Tab) 100 mg PO DAILY [facility] Last Admin: 03/25/17 09:57 Dose: 100 mg - Labs Labs: 03/26/17 06:00 03/26/17 06:00 PT 10.3 SECONDS (9.4-12.5) 03/21/17 19:25 INR 0.95 (0.93-1.08) 03/21/17 19:25 APTT 25.1 Seconds (25.1-36.5) 03/21/17 19:25 - Constitutional Appears: Non-toxic - Head Exam Head Exam: NORMAL INSPECTION - ENT Exam ENT Exam: Mucous Membranes Moist - Neck Exam Neck Exam: absent: Meningismus - Respiratory Exam Respiratory Exam: Decreased Breath Sounds - Cardiovascular Exam Cardiovascular Exam: +S1, +S2 - GI/Abdominal Exam GI & Abdominal Exam: Soft. absent: Tenderness Assessment and Plan - Assessment and Plan (Free Text) Plan: Assessment systemic inflammatory response syndrome with no evidence of sepsis or infection so far in this patient S/P VDRF probably fom polysubstance abuse and COPD exacerbation, slowly improving Gallstones history of probable erythema nodosum on the right leg in a patient with history of Hepatitis C COPD Hepatitis C, chronic and active history of umbilical hernia polysubstance abuse with heavy alcohol use and active IV drug user (heroin) Plan on Doxycycline day 4 - cultures have been negative - will opt for short course of Doxycycline (i.e. 3-5 day course) patient should have outpatient follow up with an Hepatitis C specialist for further work up and treatment options
[2017-03-26] MEDS: Levalbuterol 0.63 MG/3 ML Inhal Soln UD IH PRN (19:58)
[2017-03-26] MEDS: Arformoterol 15 mcg/2 ml Inh Sol IH SCH (19:58)
[2017-03-26] MEDS: Budesonide 0.5 mg/2 ml Inhal Susp UD IH SCH (19:58)
[2017-03-26] MEDS ORDERED: Fluticasone-Salmeterol 250-50mcg Diskus IH SCH (22:00)
[2017-03-27] MEDS: Pantoprazole 40 mg EC Tab PO SCH (06:15)
[2017-03-27] MEDS: Arformoterol 15 mcg/2 ml Inh Sol IH SCH ×2 (07:25→20:23)
[2017-03-27] MEDS: Budesonide 0.5 mg/2 ml Inhal Susp UD IH SCH ×2 (07:25→20:23)
[2017-03-27] MEDS: Multivitamin Therapeutic Tab PO SCH (08:30)
[2017-03-27 08:53] LABS: BASO # 0.02 K/mm3 (0.0-2.0); BASO % 0.1 % (0.0-3.0); EOS # 0.1 (0.0-0.7); EOS % 0.3 % (1.5-5.0); GRAN # 11.18 (1.4-6.5); GRAN % 76.9 % (50.0-68.0); LYMPH # 2.4 (1.2-3.4); LYMPH % 16.3 % (22.0-35.0); MEAN CORPUSCULAR HEMOGLOBIN 32.8 pg (25.0-35.0); MEAN CORPUSCULAR HGB CONC 32.8 g/dl (31.0-37.0); MEAN PLATELET VOLUME 9.6 fl (7.0-11.0); MONO # 0.9 (0.1-0.6); MONO % 6.4 % (1.0-6.0); RED CELL DISTRIBUTION WIDTH 14.3 % (11.5-14.5); WHITE BLOOD COUNT 14.6 10^3/ul (4.5-11.0)
[2017-03-27 09:00] LABS: ALB/GLOB RATIO 1.2 (1.1-1.8); ALKALINE PHOSPHATASE 71 U/L (38-126); ALT/SGPT 74 U/L (7-56); AST/SGOT 34 U/L (14-36); BILIRUBIN,TOTAL 0.6 mg/dL (0.2-1.3); BLOOD UREA NITROGEN 13 mg/dL (7-21); CALCIUM 8.8 mg/dL (8.4-10.5); CARBON DIOXIDE 36 mmol/L (21-33); CHLORIDE 93 mmol/L (98-107); GFR AFRICAN-AMERICAN > 60; GLUCOSE,RANDOM 131 mg/dL (70-110); POTASSIUM 3.9 mmol/L (3.6-5.0); SODIUM 137 mmol/L (132-148); TOTAL PROTEIN 6.3 g/dL (5.8-8.3)
--- NOTE | 2017-03-27 09:19 | PN ---
DATE: 03/26/2017 SUBJECTIVE: This patient was seen and evaluated earlier today. The patient is passing flatus, not bowel movements. Abdomen appears less distended. Feels hungry, on liquid diet. PHYSICAL EXAMINATION VITAL SIGNS: Temperature is 98.1, pulse 92, and blood pressure 138/90. HEENT: Atraumatic. Anicteric. NECK: Supple. HEART: S1 and S2 heard. LUNGS: Bilateral air entry present. Occasional rhonchi present. ABDOMEN: Softly distended. EXTREMITIES: No cyanosis. No clubbing. NEUROLOGIC: Alert and oriented. Moves all the extremities. LABORATORY DATA: Hemoglobin 12.6, hematocrit 38.6, WBC 12.6, and platelets 341. BUN 10, creatinine 0.5. LFTs shows a downward trend. AST 35, ALT 75. Total bilirubin and alkaline phosphatase normal. IMPRESSION: This 46-year-old patient with polysubstance abuse, drug abuse, history of asthma, and chronic obstructive pulmonary disease, admitted with respiratory failure. The patient is being treated with antibiotics doxycycline and Solu-Medrol. The patient has history of EtOH abuse, but LFTs remain improving. History of gallstones, but HIDA scan negative. Would recommend, continue with antibiotics and slowly advance the diet to full liquid that will be tolerating to soft diet. Thank you very much for allowing us to participate in the care of the patient. Yasmine Sun MD
[2017-03-27] MEDS: Enoxaparin 40 mg Syringe SC SCH (11:22)
[2017-03-27] MEDS: MethylPREDNISolone 40 mg Vial IVP SCH ×2 (11:23→23:09)
[2017-03-27] MEDS: guaiFENesin DM 200 mg-20 mg/10 ml UD PO PRN (11:23)
--- NOTE | 2017-03-27 12:56 | CP.PCM.PN ---
<Joe Mathur - Last Filed: 03/27/17 16:03> Subjective - Date & Time of Evaluation Date of Evaluation: 03/27/17 Time of Evaluation: 08:53 - Subjective Subjective: Patient seen and examined at bedside. Per nursing no acute events occurred overnight. The patient reports a productive cough (yellow phlegm production), shortness of breath, and chills. The patient denies nausea, vomiting, abdominal pain, lightheadedness, dizziness, changes in vision, syncopal episodes or any other complaints. Objective - Vital Signs/Intake and Output Vital Signs (last 24 hours): Temp Pulse Resp BP Pulse Ox 98.6 F 84 20 125/85 100 03/27/17 07:30 03/27/17 07:30 03/27/17 07:30 03/27/17 07:30 03/27/17 07:30 Intake and Output: 03/27/17 03/27/17 06:59 18:59 Intake Total 440 Balance 440 - Medications Medications: Current Medications Arformoterol Tartrate (Brovana) 15 mcg IH [id number] [facility] Last Admin: 03/27/17 07:25 Dose: 15 mcg Budesonide (Pulmicort Respules) 0.5 mg IH [id number] [facility] Last Admin: 03/27/17 07:25 Dose: 0.5 mg Citalopram Hydrobromide (Celexa) 10 mg PO DAILY [facility] Last Admin: 03/27/17 11:27 Dose: 10 mg Docusate Sodium (Colace Liquid) 100 mg PO TID [facility] Last Admin: 03/27/17 11:24 Dose: 100 mg Doxycycline Hyclate (Doryx) 100 mg PO Q12 [facility] PRN Reason: Protocol Stop: 03/31/17 10:01 Last Admin: 03/27/17 11:23 Dose: 100 mg Enoxaparin Sodium (Lovenox) 40 mg SC DAILY [facility] PRN Reason: Protocol Last Admin: 03/27/17 11:22 Dose: 40 mg Folic Acid (Folic Acid) 1 mg PO DAILY [facility] Last Admin: 03/27/17 11:26 Dose: 1 mg Guaifenesin/Dextromethorphan (Robitussin Dm) 10 ml PO Q4H PRN PRN Reason: Cough Last Admin: 03/27/17 11:23 Dose: 10 ml Levalbuterol HCl (Xopenex) 0.63 mg IH [id number] PRN PRN Reason: Shortness of Breath Last Admin: 03/26/17 19:58 Dose: 0.63 mg Lorazepam (Ativan) 2 mg IVP Q4H PRN; Protocol PRN Reason: Symptoms of alcohol withdrawl Last Admin: 03/24/17 13:45 Dose: 2 mg Lorazepam (Ativan) 1 mg IVP Q6H [facility]ACK PRN Reason: Protocol Last Admin: 03/27/17 11:24 Dose: 1 mg Methylprednisolone (Solu-Medrol) 30 mg IVP Q12 [facility] Last Admin: 03/27/17 11:23 Dose: 30 mg Montelukast Sodium (Singulair) 10 mg PO HS [facility] Last Admin: 03/26/17 22:40 Dose: 10 mg Multivitamins (Thera Tab) 1 tab PO 0800 [facility] Last Admin: 03/27/17 08:30 Dose: 1 tab Nicotine (Nicoderm Cq) 1 patch TD DAILY [facility] Last Admin: 03/27/17 11:24 Dose: 1 patch Pantoprazole Sodium (Protonix Ec Tab) 40 mg PO 0600 [facility] Last Admin: 03/27/17 06:15 Dose: 40 mg Thiamine HCl (Vitamin B1 Tab) 100 mg PO DAILY [facility] Last Admin: 03/27/17 11:26 Dose: 100 mg Trazodone HCl (Desyrel) 50 mg PO HS [facility] Last Admin: 03/26/17 22:40 Dose: 50 mg - Labs Labs: 03/27/17 08:40 03/27/17 08:40 PT 10.3 SECONDS (9.4-12.5) 03/21/17 19:25 INR 0.95 (0.93-1.08) 03/21/17 19:25 APTT 25.1 Seconds (25.1-36.5) 03/21/17 19:25 - Head Exam Head Exam: ATRAUMATIC, NORMAL INSPECTION, NORMOCEPHALIC - Eye Exam Eye Exam: EOMI, Normal appearance, PERRL. absent: Periorbital tenderness Pupil Exam: NORMAL ACCOMODATION, PERRL. absent: Irregular, Unequal - ENT Exam ENT Exam: Mucous Membranes Moist, Normal Exam, Normal Oropharynx - Neck Exam Neck Exam: Lymphadenopathy, Normal Inspection, Thyromegaly. absent: Meningismus - Respiratory Exam Respiratory Exam: Wheezes. absent: Chest Wall Tenderness, Prolonged Expiratory Phase, Respiratory Distress - Cardiovascular Exam Cardiovascular Exam: REGULAR RHYTHM, +S1, +S2 - GI/Abdominal Exam GI & Abdominal Exam: Soft, Normal Bowel Sounds - Extremities Exam Extremities Exam: Full ROM. absent: Joint Swelling, Pedal Edema, Tenderness - Back Exam Back Exam: NORMAL INSPECTION. absent: CVA tenderness (L), CVA tenderness (R), paraspinal tenderness - Neurological Exam Neurological Exam: Alert, Awake, CN II-XII Intact, Normal Gait, Oriented x3 - Psychiatric Exam Psychiatric exam: Normal Affect, Normal Mood - Skin Skin Exam: Dry, Intact, Normal Color Assessment and Plan - Assessment and Plan (Free Text) Assessment: 46 year old female with a past medical history of COPD, asthma, alcohol and heroin abuse and hepatitis C who is being admitted for respiratory failure 2/2 COPD exacerbation. Plan: 1.CAP in the setting of asthma and COPD -Continue Doxycycline per ID rec's. -Patient still wheezing and tachypnic upon physical exam. Continue solumedrol 30mg IVP Q12h -Continue Brovana, Robutussin and Pulmicort respules -Sating well on nasal cannula. Will continue to monitor closely. 2.Acute onset Abdominal Pain: Ileus Patient last bowel movement was Monday. Patient does report passing large amounts of gas since then. Abdominal U/S showed large gallstones in the gallbladder neck. Abdominal CT showed diffusely dilated colon consistent with ileus Surgery consulted. Rec's appreciated. Will continue conservative management. GI consulted. GI rec's appreciated. HIDA negative. Continue soft diet as tolerated. Will continue to advance as necessary. 3. Alcohol withdrawal - Continue Ativan 1 mg q6h JACK - Continue Ativan 2 mg IVP q4h PRN - Continue Multivitamin, folic acid, thiamine 4. Nicotine dependence - Nicoderm patch 14 mg transdermal patch 5. Affective disorder - Continue Celexa 10 mg PO daily - Continue Trazadone 50 mg nightly GI/DVT ppx: protonix/lovenox <Rangasamy,Ajantha - Last Filed: 03/27/17 17:34> Objective - Vital Signs/Intake and Output Vital Signs (last 24 hours): Temp Pulse Resp BP Pulse Ox 98.3 F 96 H 20 125/75 98 03/27/17 16:21 03/27/17 16:21 03/27/17 16:21 03/27/17 16:21 03/27/17 16:21 Intake and Output: 03/27/17 03/27/17 06:59 18:59 Intake Total 440 480 Balance 440 480 - Medications Medications: Current Medications Arformoterol Tartrate (Brovana) 15 mcg IH [id number] [facility] Last Admin: 03/27/17 07:25 Dose: 15 mcg Budesonide (Pulmicort Respules) 0.5 mg IH [id number] [facility] Last Admin: 03/27/17 07:25 Dose: 0.5 mg Citalopram Hydrobromide (Celexa) 10 mg PO DAILY [facility] Last Admin: 03/27/17 11:27 Dose: 10 mg Docusate Sodium (Colace Liquid) 100 mg PO TID [facility] Last Admin: 03/27/17 14:45 Dose: 100 mg Enoxaparin Sodium (Lovenox) 40 mg SC DAILY [facility] PRN Reason: Protocol Last Admin: 03/27/17 11:22 Dose: 40 mg Folic Acid (Folic Acid) 1 mg PO DAILY [facility] Last Admin: 03/27/17 11:26 Dose: 1 mg Guaifenesin/Dextromethorphan (Robitussin Dm) 10 ml PO Q4H [facility] Last Admin: 03/27/17 15:07 Dose: 10 ml Levalbuterol HCl (Xopenex) 0.63 mg IH [id number] PRN PRN Reason: Shortness of Breath Last Admin: 03/26/17 19:58 Dose: 0.63 mg Lorazepam (Ativan) 2 mg IVP Q4H PRN; Protocol PRN Reason: Symptoms of alcohol withdrawl Last Admin: 03/24/17 13:45 Dose: 2 mg Lorazepam (Ativan) 1 mg IVP Q6H [facility] PRN Reason: Protocol Last Admin: 03/27/17 11:24 Dose: 1 mg Methylprednisolone (Solu-Medrol) 30 mg IVP Q12 [facility] Last Admin: 03/27/17 11:23 Dose: 30 mg Montelukast Sodium (Singulair) 10 mg PO HS [facility] Last Admin: 03/26/17 22:40 Dose: 10 mg Multivitamins (Thera Tab) 1 tab PO 0800 [facility] Last Admin: 03/27/17 08:30 Dose: 1 tab Nicotine (Nicoderm Cq) 1 patch TD DAILY [facility] Last Admin: 03/27/17 11:24 Dose: 1 patch Pantoprazole Sodium (Protonix Ec Tab) 40 mg PO 0600 [facility] Last Admin: 03/27/17 06:15 Dose: 40 mg Thiamine HCl (Vitamin B1 Tab) 100 mg PO DAILY [facility] Last Admin: 03/27/17 11:26 Dose: 100 mg Trazodone HCl (Desyrel) 50 mg PO HS [facility] Last Admin: 03/26/17 22:40 Dose: 50 mg - Labs Labs: 03/27/17 08:40 03/27/17 08:40 PT 10.3 SECONDS (9.4-12.5) 03/21/17 19:25 INR 0.95 (0.93-1.08) 03/21/17 19:25 APTT 25.1 Seconds (25.1-36.5) 03/21/17 19:25 Attending/Attestation - Attestation I have personally seen and examined this patient.: Yes I have fully participated in the care of the patient.: Yes I have reviewed all pertinent clinical information, including history, physical exam and plan: Yes Notes (Text): 03/27/17 17:33 Attending note; Patient seen and examined with resident. Patient is a 46 year old female with history of tobacco use, COPD, asthma, alcohol and heroin abuse, and hepatitis C who came for evaluation of dyspnea. status post extubation. Currently on oxygen nasal cannula. Shortness of breath is improving slowly. Abdominal distention; resolved. Currently on soft diet. leukocytosis which is improving. Patient is on chronic steroid Treatment for uncontrolled COPD. Noncompliance with follow-up. Continues to smoke. Cultures are negative so far. Continue (cefepime and doxy). elevated LFT';Improved. secondary to continuous alcohol abuse. Alcohol cessation/smoking cessation is strongly advised. Homelessness. Upon discharge patient will follow up with PMD of choice or [facility] clinic. Patient does not follow-up with any PMD as outpatient.
--- NOTE | 2017-03-27 15:03 | PN ---
DATE: SUBJECTIVE: Fani Chambers is seen on the floor. She is restrained with short of breath. OBJECTIVE: ABDOMEN: Soft. LABORATORY DATA: Her white count is 14.6. Liver functions are normal except for ALT of 74. The HIDA scan reported on 01/22/2017 is normal. ASSESSMENT AND PLAN: The ultrasound on 03/22/2017 shows a large wound in the neck without secondary cholecystitis . She was seen by GI who supports my diagnosis not to operate. Her chronic obstructive pulmonary disease is overwhelming in addition to her polysubstance abuse, but when I saw her, she was so short of breath that she would not tolerate an operation. The good news is she does not need one at this time. I will follow peripherally, please recall as necessary. Gil Gongora MD
[2017-03-27] MEDS: guaiFENesin DM 200 mg-20 mg/10 ml UD PO SCH ×2 (15:07→23:10)
--- NOTE | 2017-03-27 16:17 | CP.PCM.PN ---
Subjective - Date & Time of Evaluation Date of Evaluation: 03/27/17 Time of Evaluation: 11:40 - Subjective Subjective: Comfortable, afebrile, not in distress. Objective - Vital Signs/Intake and Output Vital Signs (last 24 hours): Temp Pulse Resp BP Pulse Ox 98.6 F 84 20 125/85 100 03/27/17 07:30 03/27/17 07:30 03/27/17 07:30 03/27/17 07:30 03/27/17 07:30 Intake and Output: 03/27/17 03/27/17 06:59 18:59 Intake Total 440 Balance 440 - Medications Medications: Current Medications Arformoterol Tartrate (Brovana) 15 mcg IH [id number] [facility] Last Admin: 03/27/17 07:25 Dose: 15 mcg Budesonide (Pulmicort Respules) 0.5 mg IH [id number] [facility] Last Admin: 03/27/17 07:25 Dose: 0.5 mg Citalopram Hydrobromide (Celexa) 10 mg PO DAILY [facility] Last Admin: 03/26/17 11:57 Dose: 10 mg Docusate Sodium (Colace Liquid) 100 mg PO TID [facility] Last Admin: 03/26/17 17:01 Dose: 100 mg Doxycycline Hyclate (Doryx) 100 mg PO Q12 [facility] PRN Reason: Protocol Stop: 03/31/17 10:01 Last Admin: 03/26/17 22:40 Dose: 100 mg Enoxaparin Sodium (Lovenox) 40 mg SC DAILY [facility] PRN Reason: Protocol Last Admin: 03/26/17 10:08 Dose: 40 mg Folic Acid (Folic Acid) 1 mg PO DAILY [facility] Last Admin: 03/26/17 10:08 Dose: 1 mg Guaifenesin/Dextromethorphan (Robitussin Dm) 10 ml PO Q4H PRN PRN Reason: Cough Last Admin: 03/26/17 11:57 Dose: 10 ml Levalbuterol HCl (Xopenex) 0.63 mg IH [id number] PRN PRN Reason: Shortness of Breath Last Admin: 03/26/17 19:58 Dose: 0.63 mg Lorazepam (Ativan) 2 mg IVP Q4H PRN; Protocol PRN Reason: Symptoms of alcohol withdrawl Last Admin: 03/24/17 13:45 Dose: 2 mg Lorazepam (Ativan) 1 mg IVP Q6H [facility] PRN Reason: Protocol Last Admin: 03/27/17 06:15 Dose: 1 mg Methylprednisolone (Solu-Medrol) 30 mg IVP Q12 [facility] Last Admin: 03/26/17 22:40 Dose: 30 mg Montelukast Sodium (Singulair) 10 mg PO HS [facility] Last Admin: 03/26/17 22:40 Dose: 10 mg Multivitamins (Thera Tab) 1 tab PO 0800 [facility] Last Admin: 03/26/17 07:52 Dose: 1 tab Nicotine (Nicoderm Cq) 1 patch TD DAILY [facility] Last Admin: 03/26/17 10:08 Dose: 1 patch Pantoprazole Sodium (Protonix Ec Tab) 40 mg PO 0600 [facility] Last Admin: 03/27/17 06:15 Dose: 40 mg Thiamine HCl (Vitamin B1 Tab) 100 mg PO DAILY [facility] Last Admin: 03/26/17 10:08 Dose: 100 mg Trazodone HCl (Desyrel) 50 mg PO HS [facility] Last Admin: 03/26/17 22:40 Dose: 50 mg - Labs Labs: 03/27/17 08:40 03/27/17 08:40 PT 10.3 SECONDS (9.4-12.5) 03/21/17 19:25 INR 0.95 (0.93-1.08) 03/21/17 19:25 APTT 25.1 Seconds (25.1-36.5) 03/21/17 19:25 - Constitutional Appears: Non-toxic - Head Exam Head Exam: NORMAL INSPECTION - ENT Exam ENT Exam: Mucous Membranes Moist - Neck Exam Neck Exam: absent: Meningismus - Respiratory Exam Respiratory Exam: Decreased Breath Sounds - Cardiovascular Exam Cardiovascular Exam: +S1, +S2 - GI/Abdominal Exam GI & Abdominal Exam: Soft. absent: Tenderness Assessment and Plan - Assessment and Plan (Free Text) Plan: Assessment systemic inflammatory response syndrome with no evidence of sepsis or infection so far in this patient S/P VDRF probably fom polysubstance abuse and COPD exacerbation Gallstones history of probable erythema nodosum on the right leg in a patient with history of Hepatitis C COPD Hepatitis C, chronic and active history of umbilical hernia polysubstance abuse with heavy alcohol use and active IV drug user (heroin) Plan on Doxycycline day 5 - cultures have been negative - will d/c today patient should have outpatient follow up with an Hepatitis C specialist for further work up and treatment options
--- NOTE | 2017-03-28 00:21 | PN ---
DATE: 03/27/2017 SUBJECTIVE: This patient was seen and evaluated today. Tolerating the diet. PHYSICAL EXAMINATION: VITAL SIGNS: Temperature 98.3, pulse 96, and blood pressure 125/75. HEENT: Atraumatic. Anicteric. NECK: Supple. HEART: S1 and S2 heard. LUNGS: Bilateral air entry present. ABDOMEN: Softly distended. Bowel sounds present. No significant tenderness. EXTREMITIES: No edema. No clubbing. No cyanosis. LABORATORY DATA: Hemoglobin is 14.1, hematocrit 43, WBC 14.6, and platelets 342. Chemistries showed . LFTs essentially now is improving. IMPRESSION: This 46-year-old patient with polysubstance abuse admitted with respiratory failure, status post intubation and extubation. The patient is found to have abnormal LFTs and gallstones, but the HIDA scan was negative clinically. LFTs improving. Clinically, it is not suggestive of increased cholecystitis, probably a component of alcoholic and fatty liver disease to be considered . The patient's other problems include chronic obstructive pulmonary disease exacerbation and history of asthma. RECOMMENDATIONS: We will consider antibiotics as per ID, and the patient has been advanced, tolerating. The patient may need laxatives on a p.r.n. basis. Thank you very much for allowing us to participate in the care of the patient. Yasmine Sun MD
[2017-03-28] MEDS: guaiFENesin DM 200 mg-20 mg/10 ml UD PO SCH ×7 (05:06→22:24)
[2017-03-28] MEDS: Pantoprazole 40 mg EC Tab PO SCH (06:18)
[2017-03-28] MEDS: Arformoterol 15 mcg/2 ml Inh Sol IH SCH ×2 (07:32→20:29)
[2017-03-28] MEDS: Levalbuterol 0.63 MG/3 ML Inhal Soln UD IH PRN ×2 (07:32→13:28)
[2017-03-28] MEDS: Budesonide 0.5 mg/2 ml Inhal Susp UD IH SCH ×2 (07:32→20:29)
[2017-03-28 08:28] LABS: BASO # 0.02 K/mm3 (0.0-2.0); BASO % 0.1 % (0.0-3.0); EOS % 0.3 % (1.5-5.0); GRAN # 12.28 (1.4-6.5); GRAN % 78.9 % (50.0-68.0); HEMATOCRIT 44.5 % (36.0-48.0); LYMPH # 2.1 (1.2-3.4); LYMPH % 13.7 % (22.0-35.0); MEAN CELL VOLUME 100.9 fl (80.0-105.0); MEAN CORPUSCULAR HEMOGLOBIN 32.7 pg (25.0-35.0); MEAN CORPUSCULAR HGB CONC 32.4 g/dl (31.0-37.0); MEAN PLATELET VOLUME 10.4 fl (7.0-11.0); MONO # 1.1 (0.1-0.6); RED CELL DISTRIBUTION WIDTH 14.3 % (11.5-14.5); WHITE BLOOD COUNT 15.6 10^3/ul (4.5-11.0)
[2017-03-28] MEDS: Multivitamin Therapeutic Tab PO SCH (08:41)
[2017-03-28 08:45] LABS: ALB/GLOB RATIO 1.2 (1.1-1.8); ALKALINE PHOSPHATASE 66 U/L (38-126); ALT/SGPT 63 U/L (7-56); AST/SGOT 29 U/L (14-36); BILIRUBIN,TOTAL 0.6 mg/dL (0.2-1.3); BLOOD UREA NITROGEN 12 mg/dL (7-21); CARBON DIOXIDE 40 mmol/L (21-33); CHLORIDE 95 mmol/L (98-107); GFR AFRICAN-AMERICAN > 60; GLUCOSE,RANDOM 121 mg/dL (70-110); SODIUM 140 mmol/L (132-148); TOTAL PROTEIN 6.5 g/dL (5.8-8.3)
[2017-03-28 09:14] LABS: POTASSIUM 5.6 mmol/L (3.6-5.0)
[2017-03-28] MEDS ORDERED: Sod Polystyrene Sulf 15 gm/60 ml Susp PO ONE (09:32)
[2017-03-28] MEDS: Enoxaparin 40 mg Syringe SC SCH (10:17)
[2017-03-28] MEDS: MethylPREDNISolone 40 mg Vial IVP SCH ×2 (10:17→21:30)
--- NOTE | 2017-03-28 11:38 | CP.PCM.PN ---
<Corinne,Kovil V - Last Filed: 03/28/17 23:21> Objective - Vital Signs/Intake and Output Vital Signs (last 24 hours): Temp Pulse Resp BP Pulse Ox 98.4 F 89 22 135/95 H 97 03/28/17 07:30 03/28/17 07:30 03/28/17 07:30 03/28/17 07:30 03/28/17 07:30 Intake and Output: 03/28/17 03/29/17 18:59 06:59 Intake Total 480 Balance 480 - Medications Medications: Current Medications Arformoterol Tartrate (Brovana) 15 mcg IH [id number] [facility] Last Admin: 03/28/17 20:29 Dose: 15 mcg Budesonide (Pulmicort Respules) 0.5 mg IH [id number] [facility] Last Admin: 03/28/17 20:29 Dose: 0.5 mg Citalopram Hydrobromide (Celexa) 10 mg PO DAILY [facility] Last Admin: 03/28/17 10:20 Dose: 10 mg Docusate Sodium (Colace Liquid) 100 mg PO TID [facility] Last Admin: 03/28/17 17:12 Dose: 100 mg Enoxaparin Sodium (Lovenox) 40 mg SC DAILY [facility] PRN Reason: Protocol Last Admin: 03/28/17 10:17 Dose: 40 mg Folic Acid (Folic Acid) 1 mg PO DAILY [facility] Last Admin: 03/28/17 10:16 Dose: 1 mg Guaifenesin/Dextromethorphan (Robitussin Dm) 10 ml PO Q4H [facility] Last Admin: 03/28/17 22:24 Dose: 10 ml Levalbuterol HCl (Xopenex) 0.63 mg IH [id number] PRN PRN Reason: Shortness of Breath Last Admin: 03/28/17 13:28 Dose: 0.63 mg Lorazepam (Ativan) 2 mg IVP Q4H PRN; Protocol PRN Reason: Symptoms of alcohol withdrawl Last Admin: 03/24/17 13:45 Dose: 2 mg Lorazepam (Ativan) 1 mg IVP Q6H [facility]AK[facility] PRN Reason: Protocol Last Admin: 03/28/17 21:27 Dose: 1 mg Methylprednisolone (Solu-Medrol) 20 mg IVP Q12 [facility] Last Admin: 03/28/17 21:30 Dose: 20 mg Montelukast Sodium (Singulair) 10 mg PO HS [facility] Last Admin: 03/28/17 21:29 Dose: 10 mg Multivitamins (Thera Tab) 1 tab PO 0800 [facility] Last Admin: 03/28/17 08:41 Dose: 1 tab Nicotine (Nicoderm Cq) 1 patch TD DAILY [facility] Last Admin: 03/28/17 10:16 Dose: 1 patch Pantoprazole Sodium (Protonix Ec Tab) 40 mg PO 0600 [facility] Last Admin: 03/28/17 06:18 Dose: 40 mg Thiamine HCl (Vitamin B1 Tab) 100 mg PO DAILY [facility] Last Admin: 03/28/17 10:16 Dose: 100 mg Trazodone HCl (Desyrel) 50 mg PO HS [facility] Last Admin: 03/28/17 21:29 Dose: 50 mg - Labs Labs: 03/28/17 08:00 03/28/17 08:00 PT 10.3 SECONDS (9.4-12.5) 03/21/17 19:25 INR 0.95 (0.93-1.08) 03/21/17 19:25 APTT 25.1 Seconds (25.1-36.5) 03/21/17 19:25 Attending/Attestation - Attestation I have personally seen and examined this patient.: Yes I have fully participated in the care of the patient.: Yes I have reviewed all pertinent clinical information, including history, physical exam and plan: Yes Notes (Text): This is an addendum to GI progress report dictated by Kailyn Bills APN.The patient was seen and examined earlier. Medical records, lab studies, imagings were reviewed. Last 24 hours events reviewed. Agreed with the above treatment plan as outlined in Kailyn Bills APN's notes the with the addition of the following On examination abdomen appeared less distended. Positive flatus. No bowel movements. On MiraLAX. Will give a dose of Dulcolax suppositories and continue the stool softeners and MiraLAX 03/28/17 23:1 <Kailyn Bills - Last Filed: 03/30/17 16:58> Subjective - Date & Time of Evaluation Date of Evaluation: 03/28/17 Time of Evaluation: 10:20 - Subjective Subjective: Seen and examined at the bedside earlier this morning, the patient has occasional shortness of breath,denies chest pain. Denies nausea, vomiting, or abdominal pain. Last bowel movement was supported to be Monday or Monday that was loose. The patient is noted to have elevated potassium at 5.6, due to receive Kayexalate. Tolerating oral intake no reports of dysphagia. No acute overnight events reported. Objective - Vital Signs/Intake and Output Vital Signs (last 24 hours): Temp Pulse Resp BP Pulse Ox 98.4 F 89 22 135/95 H 97 03/28/17 07:30 03/28/17 07:30 03/28/17 07:30 03/28/17 07:30 03/28/17 07:30 Intake and Output: 03/28/17 03/28/17 06:59 18:59 Intake Total 660 Balance 660 - Medications Medications: Current Medications Arformoterol Tartrate (Brovana) 15 mcg IH [id number] [facility] Last Admin: 03/28/17 07:32 Dose: 15 mcg Budesonide (Pulmicort Respules) 0.5 mg IH [id number] [facility] Last Admin: 03/28/17 07:32 Dose: 0.5 mg Citalopram Hydrobromide (Celexa) 10 mg PO DAILY [facility] Last Admin: 03/28/17 10:20 Dose: 10 mg Docusate Sodium (Colace Liquid) 100 mg PO TID [facility] Last Admin: 03/28/17 10:16 Dose: 100 mg Enoxaparin Sodium (Lovenox) 40 mg SC DAILY [facility] PRN Reason: Protocol Last Admin: 03/28/17 10:17 Dose: 40 mg Folic Acid (Folic Acid) 1 mg PO DAILY [facility] Last Admin: 03/28/17 10:16 Dose: 1 mg Guaifenesin/Dextromethorphan (Robitussin Dm) 10 ml PO Q4H [facility] Last Admin: 03/28/17 10:16 Dose: 10 ml Levalbuterol HCl (Xopenex) 0.63 mg IH [id number] PRN PRN Reason: Shortness of Breath Last Admin: 03/28/17 07:32 Dose: 0.63 mg Lorazepam (Ativan) 2 mg IVP Q4H PRN; Protocol PRN Reason: Symptoms of alcohol withdrawl Last Admin: 03/24/17 13:45 Dose: 2 mg Lorazepam (Ativan) 1 mg IVP Q6H [facility] PRN Reason: Protocol Last Admin: 03/28/17 11:10 Dose: 1 mg Methylprednisolone (Solu-Medrol) 30 mg IVP Q12 [facility] Last Admin: 03/28/17 10:17 Dose: 30 mg Montelukast Sodium (Singulair) 10 mg PO HS [facility] Last Admin: 03/27/17 23:09 Dose: 10 mg Multivitamins (Thera Tab) 1 tab PO 0800 [facility] Last Admin: 03/28/17 08:41 Dose: 1 tab Nicotine (Nicoderm Cq) 1 patch TD DAILY [facility] Last Admin: 03/28/17 10:16 Dose: 1 patch Pantoprazole Sodium (Protonix Ec Tab) 40 mg PO 0600 [facility] Last Admin: 03/28/17 06:18 Dose: 40 mg Thiamine HCl (Vitamin B1 Tab) 100 mg PO DAILY [facility] Last Admin: 03/28/17 10:16 Dose: 100 mg Trazodone HCl (Desyrel) 50 mg PO HS [facility] Last Admin: 03/27/17 23:09 Dose: 50 mg - Labs Labs: 03/28/17 08:00 03/28/17 08:00 PT 10.3 SECONDS (9.4-12.5) 03/21/17 19:25 INR 0.95 (0.93-1.08) 03/21/17 19:25 APTT 25.1 Seconds (25.1-36.5) 03/21/17 19:25 - Constitutional Appears: No Acute Distress - Eye Exam Eye Exam: Normal appearance. absent: Scleral icterus - ENT Exam ENT Exam: Mucous Membranes Moist - Neck Exam Neck Exam: Normal Inspection - Respiratory Exam Respiratory Exam: Decreased Breath Sounds, NORMAL BREATHING PATTERN. absent: Respiratory Distress - Cardiovascular Exam Cardiovascular Exam: +S1, +S2 - GI/Abdominal Exam GI & Abdominal Exam: Distended, Soft, Normal Bowel Sounds. absent: Guarding, Tenderness, Rebound - Extremities Exam Extremities Exam: absent: Calf Tenderness, Pedal Edema - Neurological Exam Neurological Exam: Alert, Awake, Oriented x3 - Skin Skin Exam: Dry, Warm Assessment and Plan - Assessment and Plan (Free Text) Assessment: ASSESSMENT: S/p Respiratory distress, s/p extubation COPD Colonic Distension/pseudo-obstruction, R/o Cdiff Chronic Hepatitis C H/O ETOH/heroin abuse Large GB, w/ no inflammatory changes/gb wall thickening,, status post HIDA scan normal hepatobiliary scan, no cystic duct obstruction PLAN: continue PPI on Solumedrol on Lovneox on Colace to get kayexalate monitor electrolytes on soft regular diet Seen and discussed w/ Dr. Sun.
--- NOTE | 2017-03-28 14:36 | CP.PCM.PN ---
<Joe Mathur - Last Filed: 03/28/17 16:23> Subjective - Date & Time of Evaluation Date of Evaluation: 03/28/17 Time of Evaluation: 08:34 - Subjective Subjective: Patient seen and examined at bedside. Per nursing no acute events occurred overnight. The patient reports feeling better this morning. The patient is tolerating the soft diet with no nausea or vomiting. The patient has yet to have a bowel movement since Monday but reports passing gas. The patient denies any chest pain, lightheadedness ,dizziness, fevers, chills, or any other complaints. Objective - Vital Signs/Intake and Output Vital Signs (last 24 hours): Temp Pulse Resp BP Pulse Ox 98.4 F 89 22 135/95 H 97 03/28/17 07:30 03/28/17 07:30 03/28/17 07:30 03/28/17 07:30 03/28/17 07:30 Intake and Output: 03/28/17 03/28/17 06:59 18:59 Intake Total 660 Balance 660 - Medications Medications: Current Medications Arformoterol Tartrate (Brovana) 15 mcg IH [id number] [facility] Last Admin: 03/28/17 07:32 Dose: 15 mcg Budesonide (Pulmicort Respules) 0.5 mg IH [id number] [facility] Last Admin: 03/28/17 07:32 Dose: 0.5 mg Citalopram Hydrobromide (Celexa) 10 mg PO DAILY [facility] Last Admin: 03/28/17 10:20 Dose: 10 mg Docusate Sodium (Colace Liquid) 100 mg PO TID [facility] Last Admin: 03/28/17 13:43 Dose: 100 mg Enoxaparin Sodium (Lovenox) 40 mg SC DAILY [facility] PRN Reason: Protocol Last Admin: 03/28/17 10:17 Dose: 40 mg Folic Acid (Folic Acid) 1 mg PO DAILY [facility] Last Admin: 03/28/17 10:16 Dose: 1 mg Guaifenesin/Dextromethorphan (Robitussin Dm) 10 ml PO Q4H [facility] Last Admin: 03/28/17 10:16 Dose: 10 ml Levalbuterol HCl (Xopenex) 0.63 mg IH [id number] PRN PRN Reason: Shortness of Breath Last Admin: 03/28/17 13:28 Dose: 0.63 mg Lorazepam (Ativan) 2 mg IVP Q4H PRN; Protocol PRN Reason: Symptoms of alcohol withdrawl Last Admin: 03/24/17 13:45 Dose: 2 mg Lorazepam (Ativan) 1 mg IVP Q6H [facility] PRN Reason: Protocol Last Admin: 03/28/17 11:10 Dose: 1 mg Methylprednisolone (Solu-Medrol) 20 mg IVP Q12 [facility] Montelukast Sodium (Singulair) 10 mg PO HS [facility] Last Admin: 03/27/17 23:09 Dose: 10 mg Multivitamins (Thera Tab) 1 tab PO 0800 [facility] Last Admin: 03/28/17 08:41 Dose: 1 tab Nicotine (Nicoderm Cq) 1 patch TD DAILY [facility] Last Admin: 03/28/17 10:16 Dose: 1 patch Pantoprazole Sodium (Protonix Ec Tab) 40 mg PO 0600 [facility] Last Admin: 03/28/17 06:18 Dose: 40 mg Thiamine HCl (Vitamin B1 Tab) 100 mg PO DAILY [facility] Last Admin: 03/28/17 10:16 Dose: 100 mg Trazodone HCl (Desyrel) 50 mg PO HS [facility] Last Admin: 03/27/17 23:09 Dose: 50 mg - Labs Labs: 03/28/17 08:00 03/28/17 08:00 PT 10.3 SECONDS (9.4-12.5) 03/21/17 19:25 INR 0.95 (0.93-1.08) 03/21/17 19:25 APTT 25.1 Seconds (25.1-36.5) 03/21/17 19:25 - Head Exam Head Exam: ATRAUMATIC, NORMAL INSPECTION, NORMOCEPHALIC - Eye Exam Eye Exam: EOMI, Normal appearance, PERRL. absent: Periorbital tenderness Pupil Exam: NORMAL ACCOMODATION, PERRL. absent: Irregular, Mydriatic - ENT Exam ENT Exam: Mucous Membranes Moist, Normal Exam, Normal Oropharynx - Neck Exam Neck Exam: Normal Inspection. absent: Lymphadenopathy, Thyromegaly - Respiratory Exam Respiratory Exam: Decreased Breath Sounds, NORMAL BREATHING PATTERN. absent: Chest Wall Tenderness, Prolonged Expiratory Phase, Respiratory Distress - Cardiovascular Exam Cardiovascular Exam: REGULAR RHYTHM, +S1, +S2 - GI/Abdominal Exam GI & Abdominal Exam: Soft, Normal Bowel Sounds. absent: Rigid, Hyperactive Bowel Sounds - Extremities Exam Extremities Exam: Full ROM, Normal Inspection. absent: Joint Swelling, Pedal Edema, Tenderness - Back Exam Back Exam: NORMAL INSPECTION. absent: CVA tenderness (L), CVA tenderness (R), paraspinal tenderness - Neurological Exam Neurological Exam: Awake, Normal Gait, Oriented x3 - Psychiatric Exam Psychiatric exam: Normal Affect, Normal Mood - Skin Skin Exam: Dry, Intact, Normal Color Assessment and Plan - Assessment and Plan (Free Text) Assessment: 46 year old female with a past medical history of COPD, asthma, alcohol and heroin abuse and hepatitis C who is being admitted for respiratory failure 2/2 COPD exacerbation. Plan: 1.CAP in the setting of asthma and COPD -Continue Doxycycline per ID rec's. -Wheezing improved upon physical examination today.. Tapering solumedrol 20mg IVP Q12h -Continue Brovana, Robutussin and Pulmicort respules -Physical therapy to get O2 saturation while ambulating. Will f/u with results. -Sating well on nasal cannula. Will continue to monitor closely. 2.Acute onset Abdominal Pain: Ileus Patient last bowel movement was Monday. Patient does report passing large amounts of gas since then. Abdominal U/S showed large gallstones in the gallbladder neck. Abdominal CT showed diffusely dilated colon consistent with ileus Surgery consulted. Rec's appreciated. Will continue conservative management. GI consulted. GI rec's appreciated. HIDA negative. Continue soft diet being tolerated. Will continue to advance as tolerated. 3. Alcohol withdrawal - Continue Ativan 1 mg q6h JACK - Continue Ativan 2 mg IVP q4h PRN - Continue Multivitamin, folic acid, thiamine 4. Nicotine dependence - Nicoderm patch 14 mg transdermal patch 5. Affective disorder - Continue Celexa 10 mg PO daily - Continue Trazadone 50 mg nightly GI/DVT ppx: protonix/lovenox <RangasamarianneAjantha - Last Filed: 03/28/17 18:21> Objective - Vital Signs/Intake and Output Vital Signs (last 24 hours): Temp Pulse Resp BP Pulse Ox 98.4 F 89 22 135/95 H 97 03/28/17 07:30 03/28/17 07:30 03/28/17 07:30 03/28/17 07:30 03/28/17 07:30 Intake and Output: 03/28/17 03/28/17 06:59 18:59 Intake Total 660 480 Balance 660 480 - Medications Medications: Current Medications Arformoterol Tartrate (Brovana) 15 mcg IH [id number] [facility] Last Admin: 03/28/17 07:32 Dose: 15 mcg Budesonide (Pulmicort Respules) 0.5 mg IH [id number] [facility] Last Admin: 03/28/17 07:32 Dose: 0.5 mg Citalopram Hydrobromide (Celexa) 10 mg PO DAILY [facility] Last Admin: 03/28/17 10:20 Dose: 10 mg Docusate Sodium (Colace Liquid) 100 mg PO TID [facility] Last Admin: 03/28/17 17:12 Dose: 100 mg Enoxaparin Sodium (Lovenox) 40 mg SC DAILY [facility] PRN Reason: Protocol Last Admin: 03/28/17 10:17 Dose: 40 mg Folic Acid (Folic Acid) 1 mg PO DAILY [facility] Last Admin: 03/28/17 10:16 Dose: 1 mg Guaifenesin/Dextromethorphan (Robitussin Dm) 10 ml PO Q4H [facility] Last Admin: 03/28/17 15:31 Dose: 10 ml Levalbuterol HCl (Xopenex) 0.63 mg IH [id number] PRN PRN Reason: Shortness of Breath Last Admin: 03/28/17 13:28 Dose: 0.63 mg Lorazepam (Ativan) 2 mg IVP Q4H PRN; Protocol PRN Reason: Symptoms of alcohol withdrawl Last Admin: 03/24/17 13:45 Dose: 2 mg Lorazepam (Ativan) 1 mg IVP Q6H [facility] PRN Reason: Protocol Last Admin: 03/28/17 17:12 Dose: 1 mg Methylprednisolone (Solu-Medrol) 20 mg IVP Q12 [facility] Montelukast Sodium (Singulair) 10 mg PO HS [facility] Last Admin: 03/27/17 23:09 Dose: 10 mg Multivitamins (Thera Tab) 1 tab PO 0800 [facility] Last Admin: 03/28/17 08:41 Dose: 1 tab Nicotine (Nicoderm Cq) 1 patch TD DAILY [facility] Last Admin: 03/28/17 10:16 Dose: 1 patch Pantoprazole Sodium (Protonix Ec Tab) 40 mg PO 0600 [facility] Last Admin: 03/28/17 06:18 Dose: 40 mg Thiamine HCl (Vitamin B1 Tab) 100 mg PO DAILY [facility] Last Admin: 03/28/17 10:16 Dose: 100 mg Trazodone HCl (Desyrel) 50 mg PO HS [facility] Last Admin: 03/27/17 23:09 Dose: 50 mg - Labs Labs: 03/28/17 08:00 03/28/17 08:00 PT 10.3 SECONDS (9.4-12.5) 03/21/17 19:25 INR 0.95 (0.93-1.08) 03/21/17 19:25 APTT 25.1 Seconds (25.1-36.5) 03/21/17 19:25 Attending/Attestation - Attestation I have personally seen and examined this patient.: Yes I have fully participated in the care of the patient.: Yes I have reviewed all pertinent clinical information, including history, physical exam and plan: Yes Notes (Text): 03/28/17 18:20 Attending note; Patient seen and examined with resident. Patient is a 46 year old female with history of tobacco use, COPD, asthma, alcohol and heroin abuse, and hepatitis C who came for evaluation of dyspnea. status post extubation. Currently on oxygen nasal cannula. Shortness of breath is improving slowly. Abdominal distention; resolved. Currently on soft diet. leukocytosis which is improving. Patient is on chronic steroid Treatment for uncontrolled COPD. Noncompliance with follow-up. Continues to smoke. Cultures are negative so far. Continue (cefepime and doxy). taper IV Steroids. elevated LFT';Improved. secondary to continuous alcohol abuse. Alcohol cessation/smoking cessation is strongly advised. Homelessness. PT evaluation requested. Possible discharge within 24-48 hours. building maintenance worker evaluation appreciated in assisting discharge planning. Upon discharge patient will follow up with PMD of choice or [facility] clinic.
--- NOTE | 2017-03-28 18:22 | PN ---
DATE: 03/28/2017 SUBJECTIVE: The patient is in bed in no acute distress. The patient was seen early this morning in room 574, bed 2. No fevers and no chills. PHYSICAL EXAMINATION: VITAL SIGNS: Temperature is 98, blood pressure is 130/90, respiratory rate 22, heart rate of 89. HEENT: Examination of HEENT is unremarkable. NECK: Supple. LUNGS: Have decreased breath sounds. HEART: Normal S1, S2. ABDOMEN: Soft. LABORATORY EXAMINATION: Reveals the patient's white count of 15,600, hemoglobin of 14, and the chemistries are noted. BUN is 12, creatinine 0.6. Microbiology reveals the blood cultures no growth. Urine cultures, a contamination. Sputum cultures, normal oral mary. The naris MRSA is not detected. Review of orders reveals the patient to be off of antibiotics. ASSESSMENT AND PLAN: A 46-year-old female with systemic inflammatory response syndrome. 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 The patient will follow up as outpatient for hepatitis C with her primary and hepatitis C and D subspecialists. Margarito Robert MD
--- NOTE | 2017-03-28 20:20 | CP.PCM.PN ---
Subjective - Date & Time of Evaluation Date of Evaluation: 03/28/17 Time of Evaluation: 20:19 - Subjective Subjective: # 24 angiocath was inserted in left forearm. Objective - Vital Signs/Intake and Output Vital Signs (last 24 hours): Temp Pulse Resp BP Pulse Ox 98.4 F 89 22 135/95 H 97 03/28/17 07:30 03/28/17 07:30 03/28/17 07:30 03/28/17 07:30 03/28/17 07:30 Intake and Output: 03/28/17 03/29/17 18:59 06:59 Intake Total 480 Balance 480 - Medications Medications: Current Medications Arformoterol Tartrate (Brovana) 15 mcg IH [id number] [facility] Last Admin: 03/28/17 07:32 Dose: 15 mcg Budesonide (Pulmicort Respules) 0.5 mg IH [id number] [facility] Last Admin: 03/28/17 07:32 Dose: 0.5 mg Citalopram Hydrobromide (Celexa) 10 mg PO DAILY [facility] Last Admin: 03/28/17 10:20 Dose: 10 mg Docusate Sodium (Colace Liquid) 100 mg PO TID [facility] Last Admin: 03/28/17 17:12 Dose: 100 mg Enoxaparin Sodium (Lovenox) 40 mg SC DAILY [facility] PRN Reason: Protocol Last Admin: 03/28/17 10:17 Dose: 40 mg Folic Acid (Folic Acid) 1 mg PO DAILY [facility] Last Admin: 03/28/17 10:16 Dose: 1 mg Guaifenesin/Dextromethorphan (Robitussin Dm) 10 ml PO Q4H [facility] Last Admin: 03/28/17 15:31 Dose: 10 ml Levalbuterol HCl (Xopenex) 0.63 mg IH [id number] PRN PRN Reason: Shortness of Breath Last Admin: 03/28/17 13:28 Dose: 0.63 mg Lorazepam (Ativan) 2 mg IVP Q4H PRN; Protocol PRN Reason: Symptoms of alcohol withdrawl Last Admin: 03/24/17 13:45 Dose: 2 mg Lorazepam (Ativan) 1 mg IVP Q6H [facility] PRN Reason: Protocol Last Admin: 03/28/17 17:12 Dose: 1 mg Methylprednisolone (Solu-Medrol) 20 mg IVP Q12 [facility] Montelukast Sodium (Singulair) 10 mg PO HS [facility] Last Admin: 03/27/17 23:09 Dose: 10 mg Multivitamins (Thera Tab) 1 tab PO 0800 [facility] Last Admin: 03/28/17 08:41 Dose: 1 tab Nicotine (Nicoderm Cq) 1 patch TD DAILY [facility] Last Admin: 03/28/17 10:16 Dose: 1 patch Pantoprazole Sodium (Protonix Ec Tab) 40 mg PO 0600 [facility] Last Admin: 03/28/17 06:18 Dose: 40 mg Thiamine HCl (Vitamin B1 Tab) 100 mg PO DAILY [facility] Last Admin: 03/28/17 10:16 Dose: 100 mg Trazodone HCl (Desyrel) 50 mg PO HS [facility] Last Admin: 03/27/17 23:09 Dose: 50 mg - Labs Labs: 03/28/17 08:00 03/28/17 08:00 PT 10.3 SECONDS (9.4-12.5) 03/21/17 19:25 INR 0.95 (0.93-1.08) 03/21/17 19:25 APTT 25.1 Seconds (25.1-36.5) 03/21/17 19:25
[2017-03-29] MEDS: guaiFENesin DM 200 mg-20 mg/10 ml UD PO SCH ×7 (02:44→23:02)
[2017-03-29] MEDS: Pantoprazole 40 mg EC Tab PO SCH (05:32)
[2017-03-29] MEDS: Budesonide 0.5 mg/2 ml Inhal Susp UD IH SCH ×2 (07:21→19:51)
[2017-03-29] MEDS: Arformoterol 15 mcg/2 ml Inh Sol IH SCH ×2 (07:21→19:50)
[2017-03-29] MEDS: Levalbuterol 0.63 MG/3 ML Inhal Soln UD IH PRN (07:21)
[2017-03-29 08:16] VITALS: RESP 20
[2017-03-29 08:18] LABS: BASO # 0.02 K/mm3 (0.0-2.0); BASO % 0.1 % (0.0-3.0); EOS # 0.1 (0.0-0.7); EOS % 0.5 % (1.5-5.0); GRAN # 10.7 (1.4-6.5); GRAN % 76.4 % (50.0-68.0); HEMATOCRIT 41.2 % (36.0-48.0); LYMPH # 2.3 (1.2-3.4); LYMPH % 16.2 % (22.0-35.0); MEAN CELL VOLUME 99.5 fl (80.0-105.0); MEAN CORPUSCULAR HEMOGLOBIN 32.4 pg (25.0-35.0); MEAN CORPUSCULAR HGB CONC 32.5 g/dl (31.0-37.0); MEAN PLATELET VOLUME 10.1 fl (7.0-11.0); MONO % 6.8 % (1.0-6.0); RED CELL DISTRIBUTION WIDTH 14.4 % (11.5-14.5)
[2017-03-29] MEDS: Multivitamin Therapeutic Tab PO SCH (08:19)
[2017-03-29 08:33] LABS: ALB/GLOB RATIO 1.2 (1.1-1.8); ALKALINE PHOSPHATASE 60 U/L (38-126); ALT/SGPT 62 U/L (7-56); AST/SGOT 28 U/L (14-36); BILIRUBIN,TOTAL 0.7 mg/dL (0.2-1.3); BLOOD UREA NITROGEN 11 mg/dL (7-21); CALCIUM 8.6 mg/dL (8.4-10.5); CARBON DIOXIDE 35 mmol/L (21-33); CHLORIDE 98 mmol/L (98-107); GFR AFRICAN-AMERICAN > 60; GLUCOSE,RANDOM 94 mg/dL (70-110); POTASSIUM 4.1 mmol/L (3.6-5.0); SODIUM 138 mmol/L (132-148); TOTAL PROTEIN 5.9 g/dL (5.8-8.3)
[2017-03-29] MEDS: Enoxaparin 40 mg Syringe SC SCH (10:09)
[2017-03-29] MEDS: MethylPREDNISolone 40 mg Vial IVP SCH ×2 (10:09→23:02)
--- NOTE | 2017-03-29 11:19 | CP.PCM.PN ---
<Corinne,Kovil V - Last Filed: 03/29/17 23:02> Objective - Vital Signs/Intake and Output Vital Signs (last 24 hours): Temp Pulse Resp BP Pulse Ox 98 F 84 20 122/81 99 03/29/17 16:24 03/29/17 16:24 03/29/17 16:24 03/29/17 16:24 03/29/17 16:24 Intake and Output: 03/29/17 03/30/17 18:59 06:59 Intake Total 700 420 Balance 700 420 - Medications Medications: Current Medications Arformoterol Tartrate (Brovana) 15 mcg IH [id number] [facility] Last Admin: 03/29/17 19:50 Dose: 15 mcg Budesonide (Pulmicort Respules) 0.5 mg IH [id number] [facility] Last Admin: 03/29/17 19:51 Dose: 0.5 mg Citalopram Hydrobromide (Celexa) 10 mg PO DAILY [facility] Last Admin: 03/29/17 10:58 Dose: 10 mg Docusate Sodium (Colace Liquid) 100 mg PO TID [facility] Last Admin: 03/29/17 17:52 Dose: 100 mg Enoxaparin Sodium (Lovenox) 40 mg SC DAILY [facility] PRN Reason: Protocol Last Admin: 03/29/17 10:09 Dose: 40 mg Folic Acid (Folic Acid) 1 mg PO DAILY [facility] Last Admin: 03/29/17 10:10 Dose: 1 mg Guaifenesin/Dextromethorphan (Robitussin Dm) 10 ml PO Q4H [facility] Last Admin: 03/29/17 18:02 Dose: Not Given Levalbuterol HCl (Xopenex) 0.63 mg IH [id number] PRN PRN Reason: Shortness of Breath Last Admin: 03/29/17 07:21 Dose: 0.63 mg Lorazepam (Ativan) 2 mg IVP Q4H PRN; Protocol PRN Reason: Symptoms of alcohol withdrawl Last Admin: 03/24/17 13:45 Dose: 2 mg Lorazepam (Ativan) 1 mg IVP Q6H JACK PRN Reason: Protocol Last Admin: 03/29/17 17:52 Dose: 1 mg Methylprednisolone (Solu-Medrol) 20 mg IVP Q12 [facility] Last Admin: 03/29/17 10:09 Dose: 20 mg Montelukast Sodium (Singulair) 10 mg PO HS [facility] Last Admin: 03/28/17 21:29 Dose: 10 mg Multivitamins (Thera Tab) 1 tab PO 0800 [facility] Last Admin: 03/29/17 08:19 Dose: 1 tab Nicotine (Nicoderm Cq) 1 patch TD DAILY [facility] Last Admin: 03/29/17 10:10 Dose: 1 patch Pantoprazole Sodium (Protonix Ec Tab) 40 mg PO 0600 [facility] Last Admin: 03/29/17 05:32 Dose: 40 mg Polyethylene Glycol (Miralax) 17 gm PO DAILY [facility] Last Admin: 03/29/17 13:46 Dose: Not Given Thiamine HCl (Vitamin B1 Tab) 100 mg PO DAILY [facility] Last Admin: 03/29/17 10:10 Dose: 100 mg Trazodone HCl (Desyrel) 50 mg PO HS [facility] Last Admin: 03/28/17 21:29 Dose: 50 mg - Labs Labs: 03/29/17 07:30 03/29/17 07:30 PT 10.3 SECONDS (9.4-12.5) 03/21/17 19:25 INR 0.95 (0.93-1.08) 03/21/17 19:25 APTT 25.1 Seconds (25.1-36.5) 03/21/17 19:25 Attending/Attestation - Attestation I have personally seen and examined this patient.: Yes I have fully participated in the care of the patient.: Yes I have reviewed all pertinent clinical information, including history, physical exam and plan: Yes Notes (Text): This is an addendum to GI progress report dictated by Kailyn Bills APN.The patient was seen and examined earlier. Medical records, lab studies, imagings were reviewed. Last 24 hours events reviewed. Agreed with the above treatment plan as outlined in Kailyn Bills APN's notes the with the addition of the following Tolerating the diet abdomen less distended PATIENT NEEDS A FOLLOW-UP IN THE gi CLINIC RECOMMEND EVALUATION FORTREATMENT FOR HEP c Plan for DC tomorrow 03/29/17 23:02 <Kailyn Bills - Last Filed: 03/30/17 16:58> Subjective - Date & Time of Evaluation Date of Evaluation: 03/29/17 Time of Evaluation: 09:45 - Subjective Subjective: Seen and examined at the bedside this morning, the patient reported having 2 small hard stools, no bleeding, denies straining. Still has some abdominal discomfort but no acute distress. Denies nausea vomiting, fever or chills. Occasional shortness of breath but no acute distress. Patient reports passing flatus and belching. No acute overnight events reported. Objective - Vital Signs/Intake and Output Vital Signs (last 24 hours): Temp Pulse Resp BP Pulse Ox 97 F L 89 20 114/87 100 03/29/17 08:17 03/29/17 08:17 03/29/17 08:17 03/29/17 08:17 03/29/17 08:17 Intake and Output: 03/29/17 03/29/17 06:59 18:59 Intake Total 240 Balance 240 - Medications Medications: Current Medications Arformoterol Tartrate (Brovana) 15 mcg IH [id number] [facility] Last Admin: 03/29/17 07:21 Dose: 15 mcg Budesonide (Pulmicort Respules) 0.5 mg IH [id number] [facility] Last Admin: 03/29/17 07:21 Dose: 0.5 mg Citalopram Hydrobromide (Celexa) 10 mg PO DAILY [facility] Last Admin: 03/29/17 10:58 Dose: 10 mg Docusate Sodium (Colace Liquid) 100 mg PO TID [facility] Last Admin: 03/29/17 10:10 Dose: 100 mg Enoxaparin Sodium (Lovenox) 40 mg SC DAILY [facility] PRN Reason: Protocol Last Admin: 03/29/17 10:09 Dose: 40 mg Folic Acid (Folic Acid) 1 mg PO DAILY [facility] Last Admin: 03/29/17 10:10 Dose: 1 mg Guaifenesin/Dextromethorphan (Robitussin Dm) 10 ml PO Q4H [facility] Last Admin: 03/29/17 09:58 Dose: Not Given Levalbuterol HCl (Xopenex) 0.63 mg IH [id number] PRN PRN Reason: Shortness of Breath Last Admin: 03/29/17 07:21 Dose: 0.63 mg Lorazepam (Ativan) 2 mg IVP Q4H PRN; Protocol PRN Reason: Symptoms of alcohol withdrawl Last Admin: 03/24/17 13:45 Dose: 2 mg Lorazepam (Ativan) 1 mg IVP Q6H [facility] PRN Reason: Protocol Last Admin: 03/29/17 05:30 Dose: 1 mg Methylprednisolone (Solu-Medrol) 20 mg IVP Q12 [facility] Last Admin: 03/29/17 10:09 Dose: 20 mg Montelukast Sodium (Singulair) 10 mg PO HS [facility] Last Admin: 03/28/17 21:29 Dose: 10 mg Multivitamins (Thera Tab) 1 tab PO 0800 [facility] Last Admin: 03/29/17 08:19 Dose: 1 tab Nicotine (Nicoderm Cq) 1 patch TD DAILY [facility] Last Admin: 03/29/17 10:10 Dose: 1 patch Pantoprazole Sodium (Protonix Ec Tab) 40 mg PO 0600 [facility] Last Admin: 03/29/17 05:32 Dose: 40 mg Thiamine HCl (Vitamin B1 Tab) 100 mg PO DAILY [facility] Last Admin: 03/29/17 10:10 Dose: 100 mg Trazodone HCl (Desyrel) 50 mg PO HS [facility] Last Admin: 03/28/17 21:29 Dose: 50 mg - Labs Labs: 03/29/17 07:30 03/29/17 07:30 PT 10.3 SECONDS (9.4-12.5) 03/21/17 19:25 INR 0.95 (0.93-1.08) 03/21/17 19:25 APTT 25.1 Seconds (25.1-36.5) 03/21/17 19:25 - Constitutional Appears: No Acute Distress - Head Exam Head Exam: NORMOCEPHALIC - Eye Exam Eye Exam: Normal appearance - Respiratory Exam Respiratory Exam: Decreased Breath Sounds, NORMAL BREATHING PATTERN. absent: Respiratory Distress - Cardiovascular Exam Cardiovascular Exam: +S1, +S2 - GI/Abdominal Exam GI & Abdominal Exam: Distended, Soft, Tenderness (mild tenderness, diffuse), Normal Bowel Sounds. absent: Guarding, Rebound - Extremities Exam Extremities Exam: absent: Calf Tenderness - Neurological Exam Neurological Exam: Alert, Awake, Oriented x3 - Skin Skin Exam: Dry, Warm Assessment and Plan - Assessment and Plan (Free Text) Assessment: ASSESSMENT: S/p Respiratory distress, s/p extubation COPD Colonic Distension/pseudo-obstruction, R/o Cdiff Chronic Hepatitis C H/O ETOH/heroin abuse Large GB, w/ no inflammatory changes/gb wall thickening,, status post HIDA scan normal hepatobiliary scan, no cystic duct obstruction PLAN: continue PPI on Solumedrol on Lovenox give dulcolax SC, continue colace started on Miralax daily monitor electrolytes on soft regular diet Seen and discussed w/ Dr. Sun.
[2017-03-29] MEDS: POLYETHYLENE GLYCOL 3350 17 GM/Dose PACKET PO SCH (13:46)
--- NOTE | 2017-03-29 15:22 | CP.PCM.PN ---
<Joe Mathur - Last Filed: 03/29/17 20:28> Subjective - Date & Time of Evaluation Date of Evaluation: 03/29/17 Time of Evaluation: 08:20 - Subjective Subjective: Patient seen and examined at bedside. Per nursing no acute events occurred overnight. The patient still reports some shortness of breath but states that it has improved. The patient is tolerating diet without any nausea or vomiting. The patient denies any chest pain, lightheadedness, dizziness, fevers , chills, syncopal episodes, or any other complaints. Objective - Vital Signs/Intake and Output Vital Signs (last 24 hours): Temp Pulse Resp BP Pulse Ox 97 F L 89 20 114/87 100 03/29/17 08:17 03/29/17 08:17 03/29/17 08:17 03/29/17 08:17 03/29/17 08:17 Intake and Output: 03/29/17 03/29/17 06:59 18:59 Intake Total 240 700 Balance 240 700 - Medications Medications: Current Medications Arformoterol Tartrate (Brovana) 15 mcg IH [id number] [facility] Last Admin: 03/29/17 07:21 Dose: 15 mcg Budesonide (Pulmicort Respules) 0.5 mg IH [id number] [facility] Last Admin: 03/29/17 07:21 Dose: 0.5 mg Citalopram Hydrobromide (Celexa) 10 mg PO DAILY [facility] Last Admin: 03/29/17 10:58 Dose: 10 mg Docusate Sodium (Colace Liquid) 100 mg PO TID [facility] Last Admin: 03/29/17 13:49 Dose: 100 mg Enoxaparin Sodium (Lovenox) 40 mg SC DAILY [facility] PRN Reason: Protocol Last Admin: 03/29/17 10:09 Dose: 40 mg Folic Acid (Folic Acid) 1 mg PO DAILY [facility] Last Admin: 03/29/17 10:10 Dose: 1 mg Guaifenesin/Dextromethorphan (Robitussin Dm) 10 ml PO Q4H [facility] Last Admin: 03/29/17 15:06 Dose: Not Given Levalbuterol HCl (Xopenex) 0.63 mg IH [id number] PRN PRN Reason: Shortness of Breath Last Admin: 03/29/17 07:21 Dose: 0.63 mg Lorazepam (Ativan) 2 mg IVP Q4H PRN; Protocol PRN Reason: Symptoms of alcohol withdrawl Last Admin: 03/24/17 13:45 Dose: 2 mg Lorazepam (Ativan) 1 mg IVP Q6H [facility] PRN Reason: Protocol Last Admin: 03/29/17 11:43 Dose: 1 mg Methylprednisolone (Solu-Medrol) 20 mg IVP Q12 [facility] Last Admin: 03/29/17 10:09 Dose: 20 mg Montelukast Sodium (Singulair) 10 mg PO HS [facility] Last Admin: 03/28/17 21:29 Dose: 10 mg Multivitamins (Thera Tab) 1 tab PO 0800 [facility] Last Admin: 03/29/17 08:19 Dose: 1 tab Nicotine (Nicoderm Cq) 1 patch TD DAILY [facility] Last Admin: 03/29/17 10:10 Dose: 1 patch Pantoprazole Sodium (Protonix Ec Tab) 40 mg PO 0600 [facility] Last Admin: 03/29/17 05:32 Dose: 40 mg Polyethylene Glycol (Miralax) 17 gm PO DAILY [facility] Last Admin: 03/29/17 13:46 Dose: Not Given Thiamine HCl (Vitamin B1 Tab) 100 mg PO DAILY [facility] Last Admin: 03/29/17 10:10 Dose: 100 mg Trazodone HCl (Desyrel) 50 mg PO HS [facility] Last Admin: 03/28/17 21:29 Dose: 50 mg - Labs Labs: 03/29/17 07:30 03/29/17 07:30 PT 10.3 SECONDS (9.4-12.5) 03/21/17 19:25 INR 0.95 (0.93-1.08) 03/21/17 19:25 APTT 25.1 Seconds (25.1-36.5) 03/21/17 19:25 - Head Exam Head Exam: ATRAUMATIC, NORMAL INSPECTION, NORMOCEPHALIC - Eye Exam Eye Exam: EOMI, Normal appearance, PERRL. absent: Periorbital tenderness Pupil Exam: NORMAL ACCOMODATION, PERRL. absent: Irregular, Unequal - ENT Exam ENT Exam: Mucous Membranes Moist, Normal Exam, Normal Oropharynx - Neck Exam Neck Exam: Normal Inspection. absent: Lymphadenopathy, Thyromegaly - Respiratory Exam Respiratory Exam: Clear to Ausculation Bilateral, NORMAL BREATHING PATTERN. absent: Chest Wall Tenderness, Prolonged Expiratory Phase, Respiratory Distress - Cardiovascular Exam Cardiovascular Exam: REGULAR RHYTHM, RRR, +S1, +S2. absent: Gallop, Rubs - GI/Abdominal Exam GI & Abdominal Exam: Soft, Normal Bowel Sounds. absent: Rigid, Hyperactive Bowel Sounds - Back Exam Back Exam: NORMAL INSPECTION. absent: CVA tenderness (L), CVA tenderness (R), paraspinal tenderness - Neurological Exam Neurological Exam: Alert, Awake, CN II-XII Intact, Normal Gait, Oriented x3 - Psychiatric Exam Psychiatric exam: Normal Affect, Normal Mood. absent: Anxious, Depressed - Skin Skin Exam: Dry, Intact Assessment and Plan - Assessment and Plan (Free Text) Assessment: 46 year old female with a past medical history of COPD, asthma, alcohol and heroin abuse and hepatitis C who is being admitted for respiratory failure 2/2 COPD exacerbation. Plan: 1.CAP in the setting of asthma and COPD -Antibiotic completed. -Wheezing improved upon physical examination today. Tapering solumedrol 20mg IVP Q12h -Continue Brovana, Robutussin and Pulmicort respules -Physical therapy rec's appreciated -Sating well on nasal cannula. Will continue to monitor closely. -Expected to be discharged tomorrow. Patient given numbers for shelters and warming centers by Social work and case management. 2.Acute onset Abdominal Pain: Ileus Patient last bowel movement was Monday. Patient does report passing large amounts of gas since then. Abdominal ultrasound showed large gallstones in the gallbladder neck. Abdominal CT showed diffusely dilated colon consistent with ileus Surgery consulted. Rec's appreciated. Will continue conservative management. Gastroenterology consulted. Gastroenterology rec's appreciated. HIDA negative. Continue soft diet being tolerated. Will continue to advance as tolerated. 3. Alcohol withdrawal - Continue Ativan 1 mg q6h JACK - Continue Ativan 2 mg IVP q4h PRN - Continue Multivitamin, folic acid, thiamine 4. Nicotine dependence - Nicoderm patch 14 mg transdermal patch 5. Affective disorder - Continue Celexa 10 mg PO daily - Continue Trazadone 50 mg nightly GI/DVT ppx: protonix/lovenox <Rangasamy,Ajantha - Last Filed: 03/30/17 13:22> Objective - Vital Signs/Intake and Output Vital Signs (last 24 hours): Temp Pulse Resp BP Pulse Ox 97.0 F L 83 20 124/85 97 03/30/17 07:30 03/30/17 07:30 03/30/17 07:30 03/30/17 07:30 03/30/17 07:30 Intake and Output: 03/30/17 03/30/17 06:59 18:59 Intake Total 780 Balance 780 - Medications Medications: Current Medications Arformoterol Tartrate (Brovana) 15 mcg IH [id number] [facility] Last Admin: 03/30/17 11:06 Dose: 15 mcg Budesonide (Pulmicort Respules) 0.5 mg IH [id number] [facility] Last Admin: 03/30/17 11:06 Dose: 0.5 mg Citalopram Hydrobromide (Celexa) 10 mg PO DAILY [facility] Last Admin: 03/30/17 10:19 Dose: 10 mg Docusate Sodium (Colace Liquid) 100 mg PO TID [facility] Last Admin: 03/30/17 10:18 Dose: 100 mg Folic Acid (Folic Acid) 1 mg PO DAILY [facility] Last Admin: 03/30/17 10:19 Dose: 1 mg Guaifenesin/Dextromethorphan (Robitussin Dm) 10 ml PO Q4H [facility] Last Admin: 03/30/17 13:04 Dose: Not Given Levalbuterol HCl (Xopenex) 0.63 mg IH [id number] PRN PRN Reason: Shortness of Breath Last Admin: 03/30/17 11:06 Dose: 0.63 mg Lorazepam (Ativan) 2 mg IVP Q4H PRN; Protocol PRN Reason: Symptoms of alcohol withdrawl Last Admin: 03/24/17 13:45 Dose: 2 mg Lorazepam (Ativan) 1 mg IVP Q6H JACK PRN Reason: Protocol Last Admin: 03/30/17 10:17 Dose: 1 mg Methylprednisolone (Solu-Medrol) 20 mg IVP Q12 [facility] Last Admin: 03/30/17 10:18 Dose: 20 mg Montelukast Sodium (Singulair) 10 mg PO HS [facility] Last Admin: 03/29/17 23:02 Dose: 10 mg Multivitamins (Thera Tab) 1 tab PO 0800 [facility] Last Admin: 03/30/17 10:19 Dose: 1 tab Nicotine (Nicoderm Cq) 1 patch TD DAILY [facility] Last Admin: 03/30/17 10:19 Dose: 1 patch Pantoprazole Sodium (Protonix Ec Tab) 40 mg PO 0600 [facility] Last Admin: 03/30/17 05:55 Dose: 40 mg Polyethylene Glycol (Miralax) 17 gm PO DAILY [facility] Last Admin: 03/30/17 10:28 Dose: Not Given Thiamine HCl (Vitamin B1 Tab) 100 mg PO DAILY [facility] Last Admin: 03/30/17 10:19 Dose: 100 mg Trazodone HCl (Desyrel) 50 mg PO HS [facility] Last Admin: 03/29/17 23:02 Dose: 50 mg - Labs Labs: 03/30/17 05:30 03/30/17 05:30 PT 10.3 SECONDS (9.4-12.5) 03/21/17 19:25 INR 0.95 (0.93-1.08) 03/21/17 19:25 APTT 25.1 Seconds (25.1-36.5) 03/21/17 19:25 Attending/Attestation - Attestation I have personally seen and examined this patient.: Yes I have fully participated in the care of the patient.: Yes I have reviewed all pertinent clinical information, including history, physical exam and plan: Yes Notes (Text): 03/30/17 13:21 Attending note; Patient seen and examined with resident. Patient is a 46 year old female with history of tobacco use, COPD, asthma, alcohol and heroin abuse, and hepatitis C who came for evaluation of dyspnea. status post extubation. Currently on oxygen nasal cannula. Shortness of breath is improving slowly. Abdominal distention; resolved. Currently on soft diet. leukocytosis which is improving. Patient is on chronic steroid Treatment for uncontrolled COPD. Noncompliance with follow-up. Continues to smoke. Cultures are negative so far. Continue (cefepime and doxy). taper IV Steroids. elevated LFT';Improved. secondary to continuous alcohol abuse. Alcohol cessation/smoking cessation is strongly advised. Homelessness. PT evaluation appreciated. No significant hypoxemia on ambulation. grey roll worker evaluation appreciated. Plan for discharge home tomorrow. Upon discharge patient will follow up with PMD of choice or [facility] clinic.
[2017-03-30] MEDS: guaiFENesin DM 200 mg-20 mg/10 ml UD PO SCH ×3 (04:44→13:04)
[2017-03-30] MEDS: Pantoprazole 40 mg EC Tab PO SCH (05:55)
[2017-03-30 06:59] LABS: BASO # 0.02 K/mm3 (0.0-2.0); BASO % 0.2 % (0.0-3.0); EOS % 0.2 % (1.5-5.0); GRAN # 10.16 (1.4-6.5); GRAN % 79.6 % (50.0-68.0); HEMATOCRIT 41.7 % (36.0-48.0); LYMPH # 1.6 (1.2-3.4); LYMPH % 12.2 % (22.0-35.0); MEAN CELL VOLUME 98.8 fl (80.0-105.0); MEAN CORPUSCULAR HGB CONC 32.4 g/dl (31.0-37.0); MEAN PLATELET VOLUME 10.1 fl (7.0-11.0); MONO % 7.8 % (1.0-6.0); RED CELL DISTRIBUTION WIDTH 14.4 % (11.5-14.5); WHITE BLOOD COUNT 12.8 10^3/ul (4.5-11.0)
[2017-03-30 07:22] LABS: ALB/GLOB RATIO 1.2 (1.1-1.8); ALKALINE PHOSPHATASE 61 U/L (38-126); ALT/SGPT 56 U/L (7-56); AST/SGOT 27 U/L (14-36); BILIRUBIN,TOTAL 0.7 mg/dL (0.2-1.3); BLOOD UREA NITROGEN 15 mg/dL (7-21); CALCIUM 8.8 mg/dL (8.4-10.5); CARBON DIOXIDE 33 mmol/L (21-33); CHLORIDE 97 mmol/L (98-107); GFR AFRICAN-AMERICAN > 60; GLUCOSE,RANDOM 123 mg/dL (70-110); POTASSIUM 4.5 mmol/L (3.6-5.0); SODIUM 136 mmol/L (132-148); TOTAL PROTEIN 6.2 g/dL (5.8-8.3)
[2017-03-30] MEDS: Arformoterol 15 mcg/2 ml Inh Sol IH SCH ×2 (07:30→11:06)
[2017-03-30] MEDS: Budesonide 0.5 mg/2 ml Inhal Susp UD IH SCH ×2 (07:31→11:06)
--- NOTE | 2017-03-30 08:33 | PN ---
DATE: 03/29/2017 SUBJECTIVE: The patient seen in room 574, bed 2. The patient was seen early this morning. No fevers. No chills. Uneventful night. PHYSICAL EXAMINATION: VITAL SIGNS: Temperature is 98, blood pressure 120/70, respiratory rate of 18, heart rate of 84. HEENT: Unremarkable. NECK: Supple. LUNGS: Have decreased breath sounds. HEART: Normal S1, S2. ABDOMEN: Soft, nontender. LABORATORY EXAMINATION: Reveals a white count of 14,000, hemoglobin of 13, platelets of 306, differential 76% granulocytosis. Coagulation BUN 11, creatinine 0.5. The patient's procalcitonin is 0.12. Urinalysis is 2-5 wbc's. Review of microbiology reveals blood cultures, no growth. MRSA is not detected, and the sputum culture is normal oral mary. Review of orders reveals the patient to be on Solu-Medrol and off of antibiotics. ASSESSMENT AND PLAN: This is a 46-year-old female with systemic inflammatory response syndrome. 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 The patient is at risk for developing nosocomial infection. Margarito Robert MD
[2017-03-30 09:46] VITALS: BP 124/85; PULSE 83; TEMP 97; O2SAT 97
[2017-03-30] MEDS: MethylPREDNISolone 40 mg Vial IVP SCH (10:18)
[2017-03-30] MEDS: Multivitamin Therapeutic Tab PO SCH (10:19)
[2017-03-30] MEDS: POLYETHYLENE GLYCOL 3350 17 GM/Dose PACKET PO SCH (10:28)
[2017-03-30] MEDS: Levalbuterol 0.63 MG/3 ML Inhal Soln UD IH PRN (11:06)
--- NOTE | 2017-03-30 12:04 | CP.PCM.DIS ---
Provider - Provider Date of Admission: 03/22/17 00:20 Attending physician: Junaid Rouse MD Time Spent in preparation of Discharge (in minutes): 45 Hospital Course - Lab Results Lab Results: Micro Results 03/22/17 11:10 Sputum Gram Stain - Final 03/22/17 11:10 Sputum Sputum Culture - Final NORMAL ORAL MAEGAN 03/22/17 05:28 Naris MRSA Culture (Admit) - Final MRSA NOT DETECTED Most Recent Lab Values WBC 12.8 10^3/ul (4.5-11.0) H 03/30/17 05:30 RBC 4.22 10^6/uL (3.5-6.1) 03/30/17 05:30 Hgb 13.5 g/dL (12.0-16.0) 03/30/17 05:30 Hct 41.7 % (36.0-48.0) 03/30/17 05:30 MCV 98.8 fl (80.0-105.0) 03/30/17 05:30 MCH 32.0 pg (25.0-35.0) 03/30/17 05:30 MCHC 32.4 g/dl (31.0-37.0) 03/30/17 05:30 RDW 14.4 % (11.5-14.5) 03/30/17 05:30 Plt Count 305 10^3/uL (120.0-450.0) 03/30/17 05:30 MPV 10.1 fl (7.0-11.0) 03/30/17 05:30 Gran % 79.6 % (50.0-68.0) H 03/30/17 05:30 Lymph % (Auto) 12.2 % (22.0-35.0) L 03/30/17 05:30 Falls % (Auto) 7.8 % (1.0-6.0) H 03/30/17 05:30 Eos % (Auto) 0.2 % (1.5-5.0) L 03/30/17 05:30 Baso % (Auto) 0.2 % (0.0-3.0) 03/30/17 05:30 Gran # 10.16 (1.4-6.5) H 03/30/17 05:30 Lymph # 1.6 (1.2-3.4) 03/30/17 05:30 Falls # 1.0 (0.1-0.6) H 03/30/17 05:30 Eos # 0.0 (0.0-0.7) 03/30/17 05:30 Baso # 0.02 K/mm3 (0.0-2.0) 03/30/17 05:30 Neutrophils % (Manual) 90 % (50.0-70.0) H 03/22/17 06:00 Band Neutrophils % 3 % (0-2) H 03/22/17 06:00 Lymphocytes % (Manual) 5 % (22.0-35.0) L 03/22/17 06:00 Monocytes % (Manual) 2 % (1.0-6.0) 03/22/17 06:00 Platelet Evaluation Normal (NORMAL) 03/22/17 06:00 Anisocytosis (manual) Slight 03/22/17 06:00 PT 10.3 SECONDS (9.4-12.5) 03/21/17 19:25 INR 0.95 (0.93-1.08) 03/21/17 19:25 APTT 25.1 Seconds (25.1-36.5) 03/21/17 19:25 pCO2 58 mm/Hg (35-45) H 03/23/17 06:00 pO2 43.0 mm/Hg (80-100) L* 03/23/17 06:00 HCO3 35.1 mmol/L (21-28) H 03/23/17 06:00 ABG pH 7.39 (7.35-7.45) 03/23/17 06:00 ABG Total CO2 36.9 mmol.L (22-28) H 03/23/17 06:00 ABG O2 Saturation 84.4 % (95-98) L 03/23/17 06:00 ABG O2 Content 13.6 ML/dl (15-23) L 03/23/17 06:00 ABG Base Excess 8.4 mmol/L (-2.0-3.0) H 03/23/17 06:00 ABG Hemoglobin 11.8 g/dL (11.7-17.4) 03/23/17 06:00 ABG Carboxyhemoglobin 2.2 % (0.5-1.5) H 03/23/17 06:00 POC ABG HHb (Measured) 15.1 % (0-5) H 03/23/17 06:00 ABG Methemoglobin 0.9 % (0.0-3.0) 03/23/17 06:00 ABG O2 Capacity 16.1 mL/dl (16-24) 03/23/17 06:00 ABG Potassium 3.8 mmol/L (3.6-5.2) 03/22/17 08:10 VBG pH 7.47 (7.32-7.43) H 03/22/17 06:00 VBG pCO2 44.0 (40-60) 03/22/17 06:00 VBG HCO3 32.0 mmol/l (21-28) H 03/22/17 06:00 VBG Total CO2 33.4 mmol.L (22-28) H 03/22/17 06:00 VBG O2 Sat (Calc) 98.6 % (40-65) H 03/22/17 06:00 VBG Base Excess 7.4 mmol/L (0.0-2.0) H 03/22/17 06:00 VBG Potassium 3.8 mmol/L (3.6-5.2) 03/22/17 06:00 Hgb O2 Saturation 81.8 % (95.0-98.0) L 03/23/17 06:00 Sodium 140.0 mmol/L (132-148) 03/22/17 08:10 Chloride 107.0 mmol/L (98-107) 03/22/17 08:10 Glucose 184 mg/dl (65-105) H 03/22/17 08:10 Lactate 2.5 mmol/L (0.7-2.1) H 03/22/17 08:10 FiO2 30.0 % 03/23/17 06:00 PEEP 5 03/22/17 08:10 CPAP 5 03/22/17 08:10 Sodium 136 mmol/L (132-148) 03/30/17 05:30 Potassium 4.5 mmol/L (3.6-5.0) 03/30/17 05:30 Chloride 97 mmol/L (98-107) L 03/30/17 05:30 Carbon Dioxide 33 mmol/L (21-33) 03/30/17 05:30 Anion Gap 11 (10-20) 03/30/17 05:30 BUN 15 mg/dL (7-21) 03/30/17 05:30 Creatinine 0.6 mg/dl (0.7-1.2) L 03/30/17 05:30 Est GFR ( Amer) > 60 03/30/17 05:30 Est GFR (Non-Af Amer) > 60 03/30/17 05:30 Random Glucose 123 mg/dL (70-110) H 03/30/17 05:30 Hemoglobin A1c 6.7 % (4.2-6.5) H 03/23/17 05:22 Calcium 8.8 mg/dL (8.4-10.5) 03/30/17 05:30 Total Bilirubin 0.7 mg/dL (0.2-1.3) 03/30/17 05:30 AST 27 U/L (14-36) 03/30/17 05:30 ALT 56 U/L (7-56) 03/30/17 05:30 Alkaline Phosphatase 61 U/L (38-126) 03/30/17 05:30 Lactate Dehydrogenase 631 U/L (333-699) 03/21/17 19:25 Total Creatine Kinase 65 U/L (35-230) 03/21/17 19:25 Troponin I < 0.01 ng/mL 03/21/17 19:25 NT-Pro-B Natriuret Pep 141 pg/mL (0-450) 03/21/17 19:25 Total Protein 6.2 g/dL (5.8-8.3) 03/30/17 05:30 Albumin 3.4 g/dL (3.0-4.8) 03/30/17 05:30 Globulin 2.9 gm/dL 03/30/17 05:30 Albumin/Globulin Ratio 1.2 (1.1-1.8) 03/30/17 05:30 Lipase 38 U/L (23-300) 03/23/17 05:22 Procalcitonin 0.10 NG/ML (0.19-0.49) L 03/22/17 09:52 Arterial Blood Potassium 3.8 mmol/L (3.6-5.2) 03/22/17 08:10 Venous Blood Potassium 3.8 mmol/L (3.6-5.2) 03/22/17 06:00 Urine Color Yellow (YELLOW) 03/21/17 21:49 Urine Appearance Clear (CLEAR) 03/21/17 21:49 Urine pH 6.0 (4.7-8.0) 03/21/17 21:49 Ur Specific [place] <= 1.005 (1.005-1.035) 03/21/17 21:49 Urine Protein Negative mg/dL (<30 mg/dL) 03/21/17 21:49 Urine Glucose (UA) Negative mg/dL (NEGATIVE) 03/21/17 21:49 Urine Ketones Negative mg/dL (NEGATIVE) 03/21/17 21:49 Urine Blood Moderate (NEGATIVE) H 03/21/17 21:49 Urine Nitrate Negative (NEGATIVE) 03/21/17 21:49 Urine Bilirubin Negative (NEGATIVE) 03/21/17 21:49 Urine Urobilinogen 0.2 E.U./dL (<1 E.U./dL) 03/21/17 21:49 Ur Leukocyte Esterase Trace Erik/uL (NEGATIVE) H 03/21/17 21:49 Urine RBC 15 - 20 /hpf (0-2) 03/21/17 21:49 Urine WBC 2 - 5 /hpf (0-6) 03/21/17 21:49 Ur Epithelial Cells 4 - 5 /hpf (0-5) 03/21/17 21:49 Amorphous Sediment Few 03/21/17 21:49 Urine Bacteria Mod (NEG) 03/21/17 21:49 Urine Opiates Screen Positive (NEGATIVE) H 03/22/17 07:25 Urine Methadone Screen Negative (NEGATIVE) 03/22/17 07:25 Ur Barbiturates Screen Negative (NEGATIVE) 03/22/17 07:25 Ur Phencyclidine Scrn Negative (NEGATIVE) 03/22/17 07:25 Ur Amphetamines Screen Negative (NEGATIVE) 03/22/17 07:25 U Benzodiazepines Scrn Positive (NEGATIVE) 03/22/17 07:25 U Oth Cocaine Metabols Negative (NEGATIVE) 03/22/17 07:25 U Cannabinoids Screen Negative (NEGATIVE) 03/22/17 07:25 Discharge Exam - Head Exam Head Exam: ATRAUMATIC, NORMAL INSPECTION, NORMOCEPHALIC Discharge Plan - Discharge Medications Prescriptions: Levalbuterol [Xopenex] 0.63 mg IH [id number] PRN #1 neb PRN Reason: Shortness Of Breath Citalopram [celeXA] 10 mg PO DAILY #7 tab Docusate [Colace LIQUID] 100 mg PO TID #21 udc Fluticasone/Salmeterol 250/50 [Advair Diskus 250/50] 1 puff IH Q12 #1 puff Folic Acid 1 mg PO DAILY #7 tab guaiFENesin/Dextromethorphan [Robitussin DM] 10 ml PO Q4H #28 udc Methylprednisolone [Medrol Dose Pack (21 tabs)] 4 mg PO DAILY #21 mg Montelukast [Singulair] 10 mg PO HS #7 tab Multivitamin Therapeutic Tab [Thera Tab] 1 tab PO 0800 #7 tab Pantoprazole [Protonix EC Tab] 40 mg PO 0600 #7 ect Polyethylene Glycol 3350 [Miralax] 17 gm PO DAILY #7 packet Thiamine [Vitamin B1 Tab] 100 mg PO DAILY #7 tab traZODone [Desyrel] 50 mg PO HS #7 tab - Follow Up Plan Condition: GOOD Disposition: HOME/ ROUTINE Instructions: Asthma (DC), COPD (Chronic Obstructive Pulmonary Disease) (DC), Bronchospasm (DC), How Your Lungs Work (DC) Additional Instructions: You have been discharged from [facility]. Your medications will brought to you by the pharmacy. If you have any sob ,or distress please go the nearest emergency room. 1. Please take your Medrol dose pack as directed.
--- NOTE | 2017-03-30 17:05 | CP.PCM.PN ---
Subjective - Date & Time of Evaluation Date of Evaluation: 03/30/17 Time of Evaluation: 10:20 - Subjective Subjective: S&E at bedside, chart reviewed earlier this am. Had a "good" Bm per patient with relief, no melena or BRBPR. Abdominal distension and discomfort better. No respiratory distress or acute overnight events. Tolerating oral intake. Objective - Vital Signs/Intake and Output Vital Signs (last 24 hours): Temp Pulse Resp BP Pulse Ox 97.0 F L 83 20 124/85 97 03/30/17 07:30 03/30/17 07:30 03/30/17 07:30 03/30/17 07:30 03/30/17 07:30 Intake and Output: 03/30/17 03/30/17 06:59 18:59 Intake Total 780 Balance 780 - Labs Labs: 03/30/17 05:30 03/30/17 05:30 PT 10.3 SECONDS (9.4-12.5) 03/21/17 19:25 INR 0.95 (0.93-1.08) 03/21/17 19:25 APTT 25.1 Seconds (25.1-36.5) 03/21/17 19:25 - Constitutional Appears: No Acute Distress - Eye Exam Eye Exam: Normal appearance. absent: Scleral icterus - ENT Exam ENT Exam: Mucous Membranes Moist - Respiratory Exam Respiratory Exam: NORMAL BREATHING PATTERN. absent: Respiratory Distress - Cardiovascular Exam Cardiovascular Exam: +S1 - GI/Abdominal Exam GI & Abdominal Exam: Distended (less), Soft, Normal Bowel Sounds. absent: Guarding, Tenderness, Rebound - Extremities Exam Extremities Exam: absent: Calf Tenderness, Pedal Edema - Neurological Exam Neurological Exam: Alert, Awake, Oriented x3 - Skin Skin Exam: Dry, Warm Assessment and Plan - Assessment and Plan (Free Text) Assessment: ASSESSMENT: S/p Respiratory distress, s/p extubation COPD s/p Colonic Distension/pseudo-obstruction Constipation Chronic Hepatitis C H/O ETOH/heroin abuse Large GB, w/ no inflammatory changes/gb wall thickening,, status post HIDA scan normal hepatobiliary scan, no cystic duct obstruction PLAN: continue PPI on Solumedrol on Lovenox discuss with patient can take OTC colace prn, and if need Miralax prn patient on discharge to medical clinic and rec GI clinic on soft regular diet Seen and discussed w/ Dr. Sun.
--- NOTE | 2017-03-30 19:35 | PN ---
DATE: 03/30/2017 SUBJECTIVE: The patient seen in bed in no acute distress. The patient was seen early this morning in room 574, bed 2. PHYSICAL EXAMINATION: VITAL SIGNS: Temperature is 98, blood pressure 120/80, respiratory rate of 20. HEENT: Unremarkable. NECK: Supple. LUNGS: Have decreased breath sounds. HEART: Normal S1, S2. ABDOMEN: Soft, nontender. LABORATORY EXAMINATION: Reveals the patient white count of 12,800, hemoglobin of 13, platelets of 305. Chemistry reveals the BUN of 15, creatinine of 0.6. ASSESSMENT AND PLAN: This is a 46-year-old female with systemic inflammatory response syndrome. 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 The patient has a possible discharge today and follow up with PMD. Margarito Robert MD
--- NOTE | 2017-03-31 11:43 | PQF RESP ---
03/31/17 Dr. Rouse, Respiratory failure is documented with patient being intubated in ED on 03/22. Please document whether respiratory failure is acute, chronic, both. Thank you. Clarification of your documentation is requested to better reflect the severity of illness and intensity of treatment of your patient. Indicators present [] Use of Home Oxygen [x] Respiratory rate > 28 or <8/min (Labored respirations) [] PCO2 > 50 mm Hg or (Hypercapnia) (somnolence) [] PaO2 < 60 mm Hg or Hypoxemia (confusion) [] ABG blood gas pH < 7.35 [] SpO2 < 90% sat on Room Air [] Cyanosis [x] Unable to Speak in Full Sentences [] Use of Accessory Muscles / Tripoding [x] Wheezing [] Other: [] Location in the medical record that reflects the above clinical findings: [] Treatment Provided: [] patient was intubated PHYSICIAN'S RESPONSE Based on your medical judgment of the clinical indicators outlined above, are you treating this patient for a known or suspected: [x] Acute Respiratory Failure (hypoxia or hypercapnia) [] Chronic Respiratory Failure (hypoxia or hypercapnia) [] Acute on Chronic Respiratory Failure (hypoxia or hypercapnia) [] Hypoxemia please specify ACUTE, CHRONIC or ACUTE on CHRONIC [] Other []_ [] If unable to determine, please check the box, sign and date. Present On Admission (POA) Indicator: [x] Present at the time of admission [] Not present at the time of admission [] Clinically Undetermined In responding to this query, please exercise your independent professional judgment. The fact that a question is asked does not imply that any particular answer is desired or expected. Thank you for your clarification on this documentation. If you have any questions please call:[ ] * Thank you, [ ] ostomy care nurse Chronic Respiratory Failure Description: Respiratory failure is a syndrome in which the respiratory system fails in one or both of its gas exchange functions: oxygenation and carbon dioxide elimination. In theory, respiratory failure is defined as a Pa02 value of <60 mm/Hg or a PaC02 of >50 mm/Hg. However, these values may be affected by renal compensation. Respiratory failure may be acute or chronic. While acute respiratory failure is characterized by life-threatening derangement in arterial blood gases and acid-base balance, the manifestations of chronic respiratory failure are less dramatic and may not be as readily apparent. Classifications: Respiratory failure may be classified as hypoxemic (usually characterized by Pa02 of <60 mm/Hg) or hypercapnic (usually characterized by PaC02 >50 mm/Hg) and either may be acute or chronic. Chronic hypercapnic respiratory failure develops over time and allows for renal compensation and an increase in bicarbonate concentration; therefore the pH is usually only slightly decreased. The distinction between acute and chronic hypoxemic respiratory failure cannot readily be made on the basis of ABGs; the clinical markers of chronic hypoxemia, such as polythycemia or cor pulmonale suggest a long standing disorder (chronic hypoxemic respiratory failure). Clinical Indicators: dyspnea at rest or "chronic" dyspnea, concomitant conditions such as polycythemia or cor pulmonale, requirement for continuous oxygen support, forced expiratory volume in one second (FEV1) of 49 or less, pursed lip breathing, "barrel" chest, hyperinflation by CXR, muscle wasting, malnutrition/obesity, poor exercise capacity, peripheral edema, description as a "blue bloater" (usually associated with chronic, obstructive bronchitis) or "pink puffer" (usually associated with emphysema) Risks: Chronic Hypoxemic Respiratory Failure - COPD, pulmonary fibrosis, asthma , pulmonary arterial hypertension, granulomatous lung diseases, congenital heart disease, bronchiectasis, kyphoscoliosis, obesity; Chronic Hypercapnic Respiratory Failure - COPD, severe asthma, myasthenia gravis, polyneuropathy, polio, head and cervical spine injuries, obesity hypoventilation syndrome. Treatment: supplemental oxygen, bronchodilators, corticosteroids, adequate nutrition, lung transplant References: Am. J. Respir. Crit. Care Med. "Global Strategy for the Diagnosis, Management and Prevention of COPD: GOLD Exectuive Summary," Marylu Funk Anzu[place] - 2007; Proceedings of the [employer] "Mechanisms and Measurements of Dyspnea in COPD," Frieda - 2006; WebMD; Respiratory Failure, Cristhian Francis MD - 10/2005; Sterling's Principles of Internal Medicine, 17th edition. Acute Respiratory Failure Acute Respiratory Failure indicators include: ~Respirations >28 ~Air hunger ~Use of accessory muscles of respiration ~Inability to speak in full sentences Cyanosis ~Pulse ox <90% RA or <95% on O2 pH <7.35 or >7.45 ~pO2 < 60 mm Hg (or 10mm below COPD patient's baseline) ~pCO2 >50mm Hg (or 10mm above COPD patient's baseline) "Respiratory failure may be assigned as a principal diagnosis when it is the condition established after study to be chiefly responsible for occasioning admission to the hospital. The fact that the respiratory failure was managed without intubation and mechanical ventilation does not preclude its use." [facility], 3rd Qtr., 1988, p. 7 MTDD
== END 2017-03-30 15:29 | disposition home or self-care (01) | DRG 882 ==
LOC: ED 18:58 → ERH 03-22 00:20 → CCU 03-22 03:07 → 2RSO 03-24 17:28 → 5RSO 03-26 21:54
PROVIDERS: ADMIT Internal Medicine; ATTEND Internal Medicine
PROC: 5A1935Z Respiratory Ventilation, Less than 24 Consecutive Hours (ICD-10-PCS; principal; 2017-03-22)
PROC: 0BH17EZ Insertion of Endotracheal Airway into Trachea, Via Natural or Artificial Opening (ICD-10-PCS; 2017-03-22)
DX: J44.1 Chronic obstructive pulmonary disease with (acute) exacerbation (principal); J96.00 Acute respiratory failure, unspecified whether with hypoxia or hypercapnia; Z99.11 Dependence on respirator [ventilator] status; J18.9 Pneumonia, unspecified organism; J45.902 Unspecified asthma with status asthmaticus; K56.7 Ileus, unspecified; Z78.1 Physical restraint status; R65.10 Systemic inflammatory response syndrome (SIRS) of non-infectious origin without acute organ dysfunction; B18.2 Chronic viral hepatitis C; F11.10 Opioid abuse, uncomplicated; K74.60 Unspecified cirrhosis of liver; B19.20 Unspecified viral hepatitis C without hepatic coma; J44.0 Chronic obstructive pulmonary disease with (acute) lower respiratory infection; E03.9 Hypothyroidism, unspecified; E78.5 Hyperlipidemia, unspecified; F10.10 Alcohol abuse, uncomplicated; F17.200 Nicotine dependence, unspecified, uncomplicated; I10 Essential (primary) hypertension; K42.9 Umbilical hernia without obstruction or gangrene; K80.20 Calculus of gallbladder without cholecystitis without obstruction; Y95 Nosocomial condition; Z59.0 Homelessness; Z79.52 Long term (current) use of systemic steroids; Z90.49 Acquired absence of other specified parts of digestive tract; Z91.19 Patient's noncompliance with other medical treatment and regimen; F41.9 Anxiety disorder, unspecified; F32.89 Other specified depressive episodes; R40.2412 Glasgow coma scale score 13-15, at arrival to emergency department; J06.9 Acute upper respiratory infection, unspecified; F19.10 Other psychoactive substance abuse, uncomplicated; F39 Unspecified mood [affective] disorder

== ENCOUNTER 2017-04-03 19:13 | Inpatient (IN) | payer MEDICAID ==
[2017-04-03 19:18] VITALS: BMI 26.5
[2017-04-03] MEDS ORDERED: Levalbuterol 1.25 MG/3 ML Inhal Soln UD IH STA ×3 (19:27→21:55)
[2017-04-03] MEDS ORDERED: Ipratropium 0.02% Inhal Soln (0.5 mg/2.5 ml) UD IH STA ×3 (19:28→21:56)
[2017-04-03 20:19] LABS: BASO # 0.04 K/mm3 (0.0-2.0); BASO % 0.2 % (0.0-3.0); EOS # 0.2 (0.0-0.7); EOS % 0.9 % (1.5-5.0); GRAN # 14.36 (1.4-6.5); GRAN % 70.7 % (50.0-68.0); HEMATOCRIT 39.9 % (36.0-48.0); LYMPH % 19.7 % (22.0-35.0); MEAN CELL VOLUME 98.5 fl (80.0-105.0); MEAN CORPUSCULAR HEMOGLOBIN 32.8 pg (25.0-35.0); MEAN CORPUSCULAR HGB CONC 33.3 g/dl (31.0-37.0); MEAN PLATELET VOLUME 10.1 fl (7.0-11.0); MONO # 1.7 (0.1-0.6); MONO % 8.5 % (1.0-6.0); RED CELL DISTRIBUTION WIDTH 14.5 % (11.5-14.5); WHITE BLOOD COUNT 20.3 10^3/ul (4.5-11.0)
[2017-04-03 20:21] LABS: VENOUS BLOOD GAS BASE EXCESS 4.4 mmol/L (0.0-2.0); VENOUS BLOOD PH 7.44 (7.32-7.43)
[2017-04-03 20:32] LABS: INR 0.99 (0.93-1.08); PARTIAL THROMBOPLASTIN TIME 24.6 Seconds (25.1-36.5)
[2017-04-03] MEDS ORDERED: Vancomycin 1gm in NS 250ml 1 GM/250 ML BAG IVPB STA (20:37)
[2017-04-03 20:38] LABS: ALB/GLOB RATIO 1.1 (1.1-1.8); ALKALINE PHOSPHATASE 88 U/L (38-126); ALT/SGPT 103 U/L (7-56); AST/SGOT 55 U/L (14-36); BILIRUBIN,TOTAL 0.7 mg/dL (0.2-1.3); BLOOD UREA NITROGEN 4 mg/dL (7-21); CALCIUM 8.4 mg/dL (8.4-10.5); CARBON DIOXIDE 27 mmol/L (21-33); CHLORIDE 97 mmol/L (98-107); GFR AFRICAN-AMERICAN > 60; GLUCOSE,RANDOM 122 mg/dL (70-110); LIPASE 75 U/L (23-300); SODIUM 138 mmol/L (132-148); TOTAL PROTEIN 6.6 g/dL (5.8-8.3)
[2017-04-03] MEDS ORDERED: Piperacillin/Tazobact 3.375 gm 100 ML IVPB STA (20:40)
[2017-04-03] MEDS ORDERED: Potassium Chloride 20 mEq ER Tab PO STA (21:03)
[2017-04-03] MEDS ORDERED: Magnesium Sulfate 2 GM in Sodium Chloride 0.9% 100 ML IVPB ONE (21:04)
[2017-04-03 21:18] LABS: URINE BILIRUBIN NEGATIVE (NEGATIVE); URINE BLOOD NEGATIVE (NEGATIVE); URINE GLUCOSE (UA) NEGATIVE (NEGATIVE); URINE KETONE NEGATIVE (NEGATIVE); URINE LEUKOCYTE ESTERASE NEGATIVE Leu/uL (NEGATIVE); URINE PROTEIN NEGATIVE mg/dL (<30 mg/dL); URINE UROBILINOGEN 0.2 E.U./dL (<1 E.U./dL)
[2017-04-03 21:20] LABS: URINE APPEARANCE CLEAR (CLEAR); URINE COLOR YELLOW (YELLOW)
[2017-04-03 21:31] LABS: MAGNESIUM 1.5 mg/dL (1.7-2.2); PHOSPHOROUS 3.2 mg/dL (2.5-4.5)
--- NOTE | 2017-04-03 22:42 | CT ---
EXAM: CT Abdomen and Pelvis Without Intravenous Contrast CLINICAL HISTORY: 46 years old, female; Pain and signs and symptoms; Nausea; Abdominal pain; Acute TECHNIQUE: Axial computed tomography images of the abdomen and pelvis without intravenous contrast. All CT scans at this facility use one or more dose reduction techniques, viz.: automated exposure control; ma/kV adjustment per patient size (including targeted exams where dose is matched to indication; i.e. head); or iterative reconstruction technique. Coronal and sagittal reformatted images were created and reviewed. COMPARISON: CT - ABD PELVIS W/O PO OR IV CONT 2017-03-23 11:18 FINDINGS: Limitations: Lack of intravenous contrast. Lower thorax: Mild emphysematous changes. Minimal atelectasis/scarring. ABDOMEN: Liver: Unremarkable. Gallbladder and bile ducts: Gallstone. No significant ductal dilation. Pancreas: Unremarkable. No ductal dilation. Spleen: No splenomegaly. Adrenals: No mass. Kidneys and ureters: No renal calculi. No hydronephrosis. Stomach and bowel: Apparent mild mural/fold thickening vs underdistention of few jejunal loops. No associated inflammatory stranding. Few minimally distended loops of small bowel, likely ileus. Appendix: No findings to suggest acute appendicitis. PELVIS: Bladder: Unremarkable. No stones. Reproductive: 1.9 x 2.0 x 2.9 cm hypodense lesion within LEFT ovary. Small hypodense structures within adnexal regions, possibly paraovarian cysts or dilated fallopian tubes, stable. ABDOMEN and PELVIS: Intraperitoneal space: No significant fluid collection. No free air. Bones/joints: No acute fracture. Soft tissues: Small paraumbilical hernia containing fat. Few subcentimeter nodules within anterior abdominal wall, nonspecific. Vasculature: Mild atherosclerotic disease. No aneurysm. Lymph nodes: No pathologically enlarged lymph nodes. IMPRESSION: 1. Cholelithiasis. 2. Probable LEFT ovarian cyst. Consider ultrasound. 3. Possible mild enteritis. Clinical correlation is needed. 4. Incidental/non-acute findings are described above.
[2017-04-03 23:12] LABS: VENOUS BLOOD GAS BASE EXCESS 5.2 mmol/L (0.0-2.0); VENOUS BLOOD PH 7.48 (7.32-7.43)
--- NOTE | 2017-04-03 23:34 | ED PDOC ---
Arrival/HPI - General Chief Complaint: Shortness Of Breath Time Seen by Provider: 04/03/17 19:26 Historian: Patient - History of Present Illness Narrative History of Present Illness (Text): 04/04/17 02:43 46yr old female presents today with shortness of breath that started prior to arrival. pt states she developed wheezing and sob. pt also c/o abdominal pain. pt states that abdominal pain feels similar to her previous admission when patient had an ileus. pt c/o constipation. c/o subjective fevers. no dizziness or weakness. no chest pain. denies urinary symptoms. admits to drinking etoh today. denies vomiting/diarrhea. pt relates shortness of breath to her asthma and being out in the cold. Pt states she is taking her mediations and is denying heroin usage. Past Medical History - Provider Review Nursing Documentation Reviewed: Yes - Travel History Have you recently traveled outside [place] w/in the past 3 mons?: No - Infectious Disease Hx of Infectious Diseases: None - Tetanus Immunization Tetanus Immunization: Unknown - Cardiac Hx Cardiac Disorders: No Hx Hypertension: Yes - Pulmonary Hx Respiratory Disorders: Yes Hx Chronic Obstructive Pulmonary Disease (COPD): Yes - Neurological HX Cerebrovascular Accident: No - HEENT Hx HEENT Disorder: No - Renal Hx Renal Disorder: No - Endocrine/Metabolic Hx Hypothyroidism: Yes - Hematological/Oncological Hx Blood Disorders: Yes Hx Hepatitis C: Yes - Integumentary Other/Comment: multiple bruises left knee, swelling right knee and pain to both knees from fall 2 wks ago, multiple eccymotic arreas to left arm, small scab right arm, 2.5cm x 2cm deep red growth to rle "I have had it for years." surgical scar mid lower abd, eccymotic area to lower abd, umbilical hernia noted - Musculoskeletal/Rheumatological Hx Falls: Yes (fell 2 wks ago) - Gastrointestinal Hx Gastrointestinal Disorders: Yes Hx Pancreatitis: (pt denies pancreatitis) Other/Comment: Umbilical hernia /cirrhosis/ distended abd - Genitourinary/Gynecological Hx Genitourinary Disorders: No Hx Sexually Transmitted Diseases: (pt denies trichomonas) - Psychiatric Hx Psychophysiologic Disorder: Yes Hx Anxiety: Yes Hx Depression: Yes Hx Substance Use: Yes (former) Other/Comment: alcohol drinks 4 or 5 24 oz cans of 4-frances a day, 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 - Anesthesia Hx Anesthesia: Yes Hx Anesthesia Reactions: No Hx Malignant Hyperthermia: No - Suicidal Assessment Feels Threatened In Home Enviroment: No Family/Social History - Physician Review Nursing Documentation Reviewed: Yes Family/Social History: Unknown Family HX Smoking Status: Heavy Smoker > 10 Cigarettes Daily Hx Alcohol Use: Yes Hx Substance Use: Yes (former) Substance used: HEROIN Hx Substance Use Treatment: Yes Allergies/Home Meds Allergies/Adverse Reactions: Allergies No Known Allergies Allergy (Verified 04/03/17 19:40) Review of Systems - Review of Systems Constitutional: Fatigue Respiratory: SOB, Cough, Wheezing Cardiovascular: absent: Chest Pain Gastrointestinal: Abdominal Pain, Constipation. absent: Diarrhea, Nausea, Vomiting Genitourinary Female: absent: Dysuria Musculoskeletal: absent: Back Pain, Neck Pain Skin: absent: Rash, Pruritis Psychiatric: absent: Anxiety, Depression, Suicidal Ideation Physical Exam Vital Signs Reviewed: Yes Vital Signs Temp Pulse Resp BP Pulse Ox 04/04/17 00:06 100.4 F H 04/03/17 23:47 100.4 F H 112 H 18 152/70 H 100 04/03/17 19:40 20 98 04/03/17 19:31 99.0 F 116 H 21 124/80 94 L Temperature: Afebrile Blood Pressure: Normal Pulse: Tachycardic Respiratory Rate: Tachypneic Appearance: Positive for: Well-Appearing, Non-Toxic, Uncomfortable Pain Distress: Moderate Mental Status: Positive for: Alert and Oriented X 3 - Systems Exam Head: Present: Atraumatic Mouth: Present: Moist Mucous Membranes Neck: Present: Normal Range of Motion, Trachea Midline Respiratory/Chest: Present: Accessory Muscle Use, Wheezes, Decreased Breath Sounds, Rhonchi, Tachypneic. No: Clear to Auscultation, Rales Cardiovascular: Present: Tachycardic. No: Murmurs Abdomen: Present: Tenderness, Normal Bowel Sounds, Other. No: Peritoneal Signs , Rebound, Guarding Back: Present: Normal Inspection. No: CVA Tenderness, Midline Tenderness Upper Extremity: Present: Normal ROM, Other (ecchymosis noted to volar aspect of forearm) Lower Extremity: Present: Normal Inspection, Normal ROM. No: Tenderness, Swelling, Erythema, Deformity Neurological: Present: GCS=15, Speech Normal Skin: Present: Warm, Dry, Normal Color Psychiatric: Present: Alert, Oriented x 3 Medical Decision Making ED Course and Treatment: 46yr old female with asthma/copd; tachycardic, hypoxic with diffuse wheezing bilaterally. pt given xopenex and ipratropium x 3 cbc; wbc; 20.3 cmp; k ;3.0 elevated lfts lactate; 4.0 blood and urine cultures pending Code sepsis called. lactated ringer given at 30cc/kg bolus. vancomycin and zosyn ordered IV. po potassium given. 40meq magnesium 2g IV given. cxr: no infiltrate, unchanged from prior. additional xopenex and ipratropium given. BIPAP ordered as patient remains tachycardic and tachypneic pt seen and evaluated by dr. colon. ua; wnl ct abd/pelvis: FINDINGS: Limitations: Lack of intravenous contrast. Lower thorax: Mild emphysematous changes. Minimal atelectasis/scarring. ABDOMEN: Liver: Unremarkable. Gallbladder and bile ducts: Gallstone. No significant ductal dilation. Pancreas: Unremarkable. No ductal dilation. Spleen: No splenomegaly. Adrenals: No mass. Kidneys and ureters: No renal calculi. No hydronephrosis. Stomach and bowel: Apparent mild mural/fold thickening vs underdistention of few jejunal loops. No associated inflammatory stranding. Few minimally distended loops of small bowel , likely ileus. Appendix: No findings to suggest acute appendicitis. PELVIS: Bladder: Unremarkable. No stones. Reproductive: 1.9 x 2.0 x 2.9 cm hypodense lesion within LEFT ovary. Small hypodense structures within adnexal regions, possibly paraovarian cysts or dilated fallopian tubes, stable. ABDOMEN and PELVIS: Intraperitoneal space: No significant fluid collection. No free air. Bones/joints: No acute fracture. Soft tissues: Small paraumbilical hernia containing fat. Few subcentimeter nodules within anterior abdominal wall, nonspecific. Vasculature: Mild atherosclerotic disease. No aneurysm. Lymph nodes: No pathologically enlarged lymph nodes. IMPRESSION: 1. Cholelithiasis. 2. Probable LEFT ovarian cyst. Consider ultrasound. 3. Possible mild enteritis. Clinical correlation is needed. 4. Incidental/non-acute findings are described above. pt refusing BIPAP; repeat lactate; 3.8 04/03/17 23:32 ICU consult; dr. goff senior qa automation engineer at bedside; pt does not meet ICU criteria; will admit to tele. impression; sepsis, SOB, ileus, admit to tele. Reassessment Condition: Re-examined, Improving,but remains with symptoms - Lab Interpretations Lab Results: 04/03/17 19:30 04/03/17 19:30 Lab Results 04/03/17 22:30: pO2 260 H, VBG pH 7.48 H, VBG pCO2 39.0 L, VBG HCO3 29.0 H, VBG Total CO2 30.2 H, VBG O2 Sat (Calc) 99.8 H, VBG Base Excess 5.2 H, VBG Potassium 3.2 L, Sodium 136.0, Chloride 100.0, Glucose 129 H, Lactate 3.8 H, FiO2 21.0, Venous Blood Potassium 3.2 L 04/03/17 21:04: Urine Color Yellow, Urine Appearance Clear, Urine pH 6.0, Ur Specific [place] <= 1.005, Urine Protein Negative, Urine Glucose (UA) Negative, Urine Ketones Negative, Urine Blood Negative, Urine Nitrate Negative, Urine Bilirubin Negative, Urine Urobilinogen 0.2, Ur Leukocyte Esterase Negative, Urine HCG, Qual Negative 04/03/17 19:33: Phosphorus 3.2, Magnesium 1.5 L, NT-Pro-B Natriuret Pep 45 04/03/17 19:30: Beta HCG, Quant < 2.39 04/03/17 19:30: Alcohol, Quantitative 162 H 04/03/17 19:30: PT 10.8, INR 0.99, APTT 24.6 L 04/03/17 19:30: WBC 20.3 H D, RBC 4.05, Hgb 13.3, Hct 39.9, MCV 98.5, MCH 32.8, MCHC 33.3, RDW 14.5, Plt Count 322, MPV 10.1, Gran % 70.7 H, Lymph % (Auto) 19.7 L, [place] % (Auto) 8.5 H, Eos % (Auto) 0.9 L, Baso % (Auto) 0.2, Gran # 14.36 H, Lymph # 4.0 H, [place] # 1.7 H, Eos # 0.2, Baso # 0.04 04/03/17 19:30: Sodium 138, Chloride 97 L, Potassium 3.0 L, Carbon Dioxide 27, Anion Gap 17, BUN 4 L, Creatinine 0.5 L, Est GFR ( Amer) > 60, Est GFR ( Non-Af Amer) > 60, Random Glucose 122 H, Calcium 8.4, Total Bilirubin 0.7, AST 55 H D, ALT 103 H, Alkaline Phosphatase 88, Total Protein 6.6, Albumin 3.5, Globulin 3.1, Albumin/Globulin Ratio 1.1, Lipase 75 04/03/17 19:30: pO2 160 H, VBG pH 7.44 H, VBG pCO2 43.0, VBG HCO3 29.2 H, VBG Total CO2 30.5 H, VBG O2 Sat (Calc) 99.8 H, VBG Base Excess 4.4 H, VBG Potassium 2.8 L, Sodium 137.0, Chloride 98.0, Glucose 123 H, Lactate 4.0 H*, FiO2 21.0, Venous Blood Potassium 2.8 L - RAD Interpretation Radiology Orders: 04/03/17 19:33 CHEST PORTABLE [RAD] Stat 04/03/17 19:56 ABD & PELVIS W/O PO OR IV CONT [CT] Stat - Medication Orders Current Medication Orders: Albuterol/Ipratropium (Duoneb 3 Mg/0.5 Mg (3 Ml) Ud) 3 ml IH Q2H PRN PRN Reason: Shortness of Breath Albuterol/Ipratropium (Duoneb 3 Mg/0.5 Mg (3 Ml) Ud) 3 ml IH [id number] JACK Heparin Sodium (Porcine) (Heparin) 5,000 units SC Q8 JACK PRN Reason: Protocol Multivitamins/Vitamin C 10 ml/Thiamine HCl 100 mg/ Folic Acid 1 mg/ Sodium Chloride 1,011.2 mls @ 125 mls/hr IV .Q8H6M ONE Stop: 04/04/17 09:21 Sodium Chloride (Sodium Chloride 0.9%) 1,000 mls @ 100 mls/hr IV .Q10H JACK Piperacillin Sod/Tazobactam Sod (Zosyn 3.375 In Ns 100ml) 100 mls @ 200 mls/hr IVPB Q6 JACK PRN Reason: Protocol Stop: 04/04/17 12:29 Lorazepam (Ativan) 1 mg IVP Q2H PRN; Protocol PRN Reason: Withdrawal Methylprednisolone (Solu-Medrol) 40 mg IVP Q12 JACK Montelukast Sodium (Singulair) 10 mg PO HS JACK Ondansetron HCl (Zofran Inj) 4 mg IVP Q6H PRN PRN Reason: Nausea/Vomiting Discontinued Medications Acetaminophen (Tylenol 325mg Tab) 650 mg PO STAT STA Stop: 04/03/17 23:53 Last Admin: 04/04/17 00:06 Dose: 650 mg MAR Pain/Vitals Document 04/04/17 00:06 AD (Rec: 04/04/17 00:07 [id number] Vitals Temperature (97.6 F-99.6 F) 100.4 F Temperature Source Oral Lactated Ringer's 2,040 ml/ IV (SUPPLIES) 2,040 mls @ 4,082.34 mls/hr IV ONCE ONE PRN Reason: 60 ML/KG/HR Stop: 04/03/17 20:38 Last Admin: 04/03/17 21:28 Dose: 4,082.34 mls/hr eMAR Start Stop Document 04/03/17 21:28 AD (Rec: 04/03/17 21:28 AD [id number]) Intravenous Solution Start Date 04/03/17 Start Time 21:15 Vancomycin HCl (Vancomycin 1gm) 1 gm in 250 mls @ 167 mls/hr IVPB STAT STA PRN Reason: Protocol Stop: 04/03/17 22:06 Last Admin: 04/03/17 23:00 Dose: 167 mls/hr eMAR Start Stop Document 04/03/17 23:00 AD (Rec: 04/03/17 23:00 AD [id number]) Intravenous Solution Start Date 04/03/17 Start Time 22:15 Piperacillin Sod/Tazobactam Sod (Zosyn 3.375 In Ns 100ml) 100 mls @ 200 mls/hr IVPB STAT STA PRN Reason: Protocol Stop: 04/03/17 21:09 Last Admin: 04/03/17 21:26 Dose: 200 mls/hr eMAR Start Stop Document 04/03/17 21:26 AD (Rec: 04/03/17 21:28 AD [id number]) Intravenous Solution Start Date 04/03/17 Start Time 21:15 Magnesium Sulfate 2 gm/ Sodium (Chloride) 104 mls @ 102 mls/hr IVPB ONCE ONE Stop: 04/03/17 22:05 Ipratropium Harris (Atrovent) 0.5 mg IH STAT STA Stop: 04/03/17 19:29 Last Admin: 04/03/17 19:53 Dose: 0.5 mg Ipratropium Harris (Atrovent) 0.5 mg IH STAT STA Stop: 04/03/17 19:35 Last Admin: 04/03/17 20:39 Dose: 0.5 mg Ipratropium Harris (Atrovent) 0.5 mg IH STAT STA Stop: 04/03/17 21:57 Last Admin: 04/03/17 21:56 Dose: 0.5 mg Levalbuterol HCl (Xopenex) 1.25 mg IH STAT STA Stop: 04/03/17 19:28 Last Admin: 04/03/17 19:53 Dose: 1.25 mg Levalbuterol HCl (Xopenex) 1.25 mg IH STAT STA Stop: 04/03/17 19:34 Last Admin: 04/03/17 20:39 Dose: 1.25 mg Levalbuterol HCl (Xopenex) 1.25 mg IH STAT STA Stop: 04/03/17 21:56 Last Admin: 04/03/17 21:55 Dose: 1.25 mg Lorazepam (Ativan) 2 mg IVP STAT STA PRN Reason: Protocol Stop: 04/03/17 23:14 Last Admin: 04/03/17 23:47 Dose: 2 mg IVP Administration Document 04/03/17 23:47 AD (Rec: 04/03/17 23:47 AD [id number]) Charges for Administration # of IVP Administrations 1 Methylprednisolone (Solu-Medrol) 125 mg IVP STAT STA Stop: 04/03/17 19:27 Last Admin: 04/03/17 20:39 Dose: 125 mg IVP Administration Document 04/03/17 20:39 AD (Rec: 04/03/17 20:39 AD [id number]) Charges for Administration # of IVP Administrations 1 Potassium Chloride (K-Dur 20 Meq Er Tab) 40 meq PO STAT STA Stop: 04/03/17 21:04 Last Admin: 04/03/17 21:03 Dose: 40 meq Disposition/Present on Arrival - Present on Arrival Any Indicators Present on Arrival: No History of DVT/PE: No History of Uncontrolled Diabetes: No Urinary Catheter: No History of Decub. Ulcer: No History Surgical Site Infection Following: None - Disposition Have Diagnosis and Disposition been Completed?: Yes Diagnosis: Hypokalemia, Leukocytosis, Shortness of breath, Enteritis, Ileus Disposition: HOSPITALIZED Disposition Time: 23:10 Patient Plan: Admission, Telemetry Condition: FAIR
[2017-04-04] MEDS ORDERED: Albuterol-Ipratrop 3 mg / 0.5 (3 ml) UD IH PRN (01:16)
[2017-04-04] MEDS ORDERED: Multivitamin (MVI) 10 ML, Thiamine 100 MG, Folic Acid 1 MG in Sodium Chloride 0.9% 1,00... IV ONE (01:16)
--- NOTE | 2017-04-04 01:46 | CP.PCM.HP ---
Addendum entered and electronically signed by Chase Trejo DO 04/04/17 02:54 : This document also serves as an ICU consultation. The patient was seen and evaluated for possible admission to the ICU for respiratory distress and sepsis. Patient was noted to be saturating well on 3LNC , off BIPAP, no longer in apparent respiratory distress after initial resuscitation. Vital signs stable. Non-acute abdomen. Downtrending lactate. Does not meet criteria for ICU admission at this time. Recommend admission to telemetry. Original Note: <Chase Trejo - Last Filed: 04/04/17 01:28> History of Present Illness - History of Present Illness History of Present Illness: Chase Trejo DO PGY1 - Internal Medicine H&P CC: Short of breath x 1d HPI: Patient is a 46F with PMH of COPD, asthma, alcohol abuse, heroin abuse ( snort and inject), and hepatitis C with cirrhosis who presents to the ED complaining of shortness of breath that started earlier this afternoon. Patient was recently discharged after treatment for the same. She reports compliance with her medications, but that exposure to the cold weather / homelessness has caused her acute illness again. She endorses associated cough productive of yellow sputum, and wheezing. She denies chest pain. She also reports generalized abdominal pain and distension. She denies fever, chills, nausea, vomiting, diarrhea. She reports that her last BM was 2 days ago, and the last time she passed flatus was 1 day ago. Remainder of 12 point ROS was negative. She also endorses a long history of alcohol abuse, and that her last drink was several hours prior to presentation. She now feels jittery and warm, as if she is going through withdrawal. PMD: none Medical Hx: COPD, asthma (intubated last week), alcohol/heroin abuse, Hep C ( known and untreated), cirrhosis Medications: Albuterol, Advair, Singulair, Celexa Surgical Hx: Appendectomy, tonsillectomy Allergies: NKDA Social Hx: Smokes 1/2 pk/day for >30 years, drinks 5-6 cans of four frances daily ( 14% alcohol x 24 ounces), reports prior IVDU, currently snorts heroin 2-10 bags weekly, last used 2 weeks ago; homeless Family Hx: DM (father) Present on Admission - Present on Admission Any Indicators Present on Admission: No Past Patient History - Infectious Disease Hx of Infectious Diseases: None - Tetanus Immunizations Tetanus Immunization: Unknown - Past Medical History & Family History Past Medical History?: Yes - Past Social History Smoking Status: Heavy Smoker > 10 Cigarettes Daily - CARDIAC Hx Cardiac Disorders: No Hx Hypertension: Yes - PULMONARY Hx Respiratory Disorders: Yes Hx Chronic Obstructive Pulmonary Disease (COPD): Yes - NEUROLOGICAL HX Cerebrovascular Accident: No - HEENT Hx HEENT Problems: No - RENAL Hx Chronic Kidney Disease: No - ENDOCRINE/METABOLIC Hx Hypothyroidism: Yes - HEMATOLOGICAL/ONCOLOGICAL Hx Blood Disorders: Yes Hx Hepatitis C: Yes - INTEGUMENTARY Other/Comment: multiple bruises left knee, swelling right knee and pain to both knees from fall 2 wks ago, multiple eccymotic arreas to left arm, small scab right arm, 2.5cm x 2cm deep red growth to rle "I have had it for years." surgical scar mid lower abd, eccymotic area to lower abd, umbilical hernia noted - MUSCULOSKELETAL/RHEUMATOLOGICAL Hx Falls: Yes (fell 2 wks ago) - GASTROINTESTINAL Hx Gastrointestinal Disorders: Yes Hx Pancreatitis: (pt denies pancreatitis) Other/Comment: Umbilical hernia /cirrhosis/ distended abd - GENITOURINARY/GYNECOLOGICAL Hx Genitourinary Disorders: No Hx Sexually Transmitted Disorders: (pt denies trichomonas) - PSYCHIATRIC Hx Psychophysiologic Disorder: Yes Hx Anxiety: Yes Hx Depression: Yes Hx Substance Use: Yes (former) Other/Comment: alcohol drinks 4 or 5 24 oz cans of 4-frances a day, 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 - ANESTHESIA Hx Anesthesia: Yes Hx Anesthesia Reactions: No Hx Malignant Hyperthermia: No Meds Allergies/Adverse Reactions: Allergies Allergy/AdvReac Type Severity Reaction Status Date / Time No Known Allergies Allergy Verified 04/03/17 19:40 Physical Exam - Constitutional Appears: Non-toxic, In Acute Distress (moderate) - Head Exam Head Exam: ATRAUMATIC, NORMOCEPHALIC - Eye Exam Eye Exam: EOMI, Normal appearance - ENT Exam ENT Exam: Mucous Membranes Moist - Neck Exam Neck exam: Positive for: Normal Inspection - Respiratory Exam Respiratory Exam: Accessory Muscle Use, Decreased Breath Sounds, Prolonged Expiratory Phase, Wheezes (faint). absent: Rhonchi, Stridor - Cardiovascular Exam Cardiovascular Exam: Tachycardia, RRR, +S1, +S2 - GI/Abdominal Exam GI & Abdominal Exam: Distended, Firm, Hypoactive Bowel Sounds, Organomegaly, Tenderness. absent: Guarding, Hernia, Rebound, Rigid - Extremities Exam Extremities exam: Positive for: pedal edema (1+ to mid-gamez). Negative for: calf tenderness - Neurological Exam Neurological exam: Alert, Oriented x3 Additional comments: tremulous Diaphoretic - Psychiatric Exam Psychiatric exam: Normal Affect, Normal Mood - Skin Skin Exam: Dry, Intact, Normal Color Results - Vital Signs Recent Vital Signs: Last Vital Signs Temp 100.4 F H 04/04/17 00:06 Pulse 112 H 04/03/17 23:47 Resp 18 04/03/17 23:47 BP 152/70 H 04/03/17 23:47 Pulse Ox 100 04/03/17 23:47 - Labs Result Diagrams: 04/03/17 19:30 04/03/17 19:30 Assessment & Plan - Assessment and Plan (Free Text) Assessment: 46 yo F with PMH of COPD/Asthma, tobacco abuse, alcohol abuse, polysubstance abuse, IVDU presents complaining of acute onset shortness of breath and mild abdominal pain. In the ER, code SEPSIS was called, and patient received 2L of LR as a bolus and IV Abx (Vanc and Zosyn). She also received IV steroids and Duonebs and was placed on BIPAP, with subsequent improvement in respiratory status. 1. Dyspnea 2/2 COPD Exacerbation vs Asthma Exacerbation vs CAP * CXR: no apparent interval change from prior admission; pending official read * Solu medrol 40 mg IV Q12 * Duonebs Q6 craig and Q2 PRN * Patient refusing BIPAP despite warning about possible need to intubate in case of respiratory failure, continue O2 by NC to maintain SaO2 >88% * Patient received Vanc and Zosyn in ER. Continue Zosyn for broad spectrum coverage * Repeat VBG with lactate with AM labs 2. Abdominal pain 2/2 Ileus * On previous admission, patient was being treated for Ileus; current imaging studies show persistent dilation of some bowel loops, though appears improved compared to prior exams * Attempted to place NG tube, then attempted Dobhoff insertion; patient was not tolerating, then ultimately refused further attempts * Maintain NPO * Continue IVF hydration (banana bag then NS) * Zofran 4mg IV Q6 PRN for nausea * Serial abdominal exams; continue to monitor, pending repeat VBG with lactate as above * Requested surgical consult; appreciate recs 3. Alcohol abuse * Presents with elevated EtOH level; now diaphoretic and tremulous, likely withdrawing * Banana bag then NS * CIWA protocol * Ativan 1mg IV Q2h PRN * Fall/Seizure precautions 4. Leukocytosis * Likely 2/2 acute illness vs chronic steroid use * Patient febrile to 100.4 in ER * Blood cultures and urine cultures ordered; pending * Continue IV Abx * Repeat with AM Labs 5. Hypokalemia/Hypomagnesemia * Repleted * monitor with morning labs 6. Transaminitis * Likely secondary to hep C and chronic alcoholism; had diagnosis of cholethiasis without obstruction at last visit * monitor 7. History of depression * Continue home med: Celexa 10 mg PO QD GI/DVT Ppx - Protonix IV, and Heparin Patient seen, discussed, and reviewed with attending <Christ Roberts Q - Last Filed: 04/04/17 06:39> Results - Vital Signs Recent Vital Signs: Last Vital Signs Temp 100.4 F H 04/04/17 00:06 Pulse 107 H 04/04/17 01:00 Resp 18 04/04/17 01:00 BP 137/82 04/04/17 01:00 Pulse Ox 95 04/04/17 01:00 - Labs Result Diagrams: 04/03/17 19:30 04/03/17 19:30 Attending/Attestation - Attestation I have personally seen and examined this patient.: Yes I have fully participated in the care of the patient.: Yes I have reviewed all pertinent clinical information: Yes
--- NOTE | 2017-04-04 02:17 | PCM.SEPTIC ---
Sepsis Progress Note - Reassessment Type Date of Evaluation: 04/04/17 Time of Evaluation: 00:20 Reassessment Type: Non-invasive reassessment - Non Invasive Reassessment Were the most recent vital sign reviewed: Yes Vital Sign (Latest): Temp Pulse Resp BP Pulse Ox 100.4 F H 112 H 18 152/70 H 100 04/04/17 00:06 04/03/17 23:47 04/03/17 23:47 04/03/17 23:47 04/03/17 23:47 Cardiovascular: Yes: Regular Rate, Rhythm, Tachycardia. No: Gallop, JVD, Friction Rub Respiratory: Yes: Decreased Breath Sounds, Accessory Muscle Use. No: Crackles, Rales, Rhonchi, Stridor, Wheezing, Respiratory Distress Capillary Refill: Normal (Less than 2 sec) Pulses: Normal Radial, Normal Dorsalis Pedis, Normal Posterior Tibialis Skin: Warm, Dry
--- NOTE | 2017-04-04 03:22 | CP.PCM.CON ---
<Kalpana Reynolds - Last Filed: 04/04/17 09:28> Meds Allergies/Adverse Reactions: Allergies Allergy/AdvReac Type Severity Reaction Status Date / Time No Known Allergies Allergy Verified 04/03/17 19:40 - Medications Medications: Current Medications Albuterol/Ipratropium (Duoneb 3 Mg/0.5 Mg (3 Ml) Ud) 3 ml IH Q2H PRN PRN Reason: Shortness of Breath Albuterol/Ipratropium (Duoneb 3 Mg/0.5 Mg (3 Ml) Ud) 3 ml IH [id number] JACK Last Admin: 04/04/17 07:40 Dose: 3 ml Heparin Sodium (Porcine) (Heparin) 5,000 units SC Q8 JACK PRN Reason: Protocol Last Admin: 04/04/17 06:06 Dose: 5,000 units Sodium Chloride (Sodium Chloride 0.9%) 1,000 mls @ 100 mls/hr IV .Q10H JACK Piperacillin Sod/Tazobactam Sod (Zosyn 3.375 In Ns 100ml) 100 mls @ 200 mls/hr IVPB Q6 JACK PRN Reason: Protocol Stop: 04/04/17 12:29 Last Admin: 04/04/17 06:15 Dose: 200 mls/hr Lorazepam (Ativan) 1 mg IVP Q2H PRN; Protocol PRN Reason: Withdrawal Methylprednisolone (Solu-Medrol) 40 mg IVP Q12 [facility] Montelukast Sodium (Singulair) 10 mg PO HS [facility] Ondansetron HCl (Zofran Inj) 4 mg IVP Q6H PRN PRN Reason: Nausea/Vomiting Results - Vital Signs Recent Vital Signs: Last Vital Signs Temp 97.8 F 04/04/17 06:00 Pulse 95 H 04/04/17 06:00 Resp 19 04/04/17 06:00 BP 136/93 H 04/04/17 06:00 Pulse Ox 95 04/04/17 01:00 - Labs Result Diagrams: 04/04/17 06:00 04/04/17 06:00 Labs: Laboratory Results - last 24 hr 04/04/17 04/04/17 04/04/17 06:00 06:00 07:40 WBC 13.7 H D RBC 3.76 Hgb 12.1 Hct 36.9 MCV 98.1 MCH 32.2 MCHC 32.8 RDW 14.6 H Plt Count 299 MPV 10.3 Gran % 90.3 H Lymph % (Auto) 7.3 L Davison % (Auto) 2.3 Eos % (Auto) 0.0 L Baso % (Auto) 0.1 Gran # 12.32 H Lymph # 1.0 L Davison # 0.3 Eos # 0.0 Baso # 0.02 Neutrophils % (Manual) 91 H Lymphocytes % (Manual) 6 L Atypical Lymphs % 1 H Monocytes % (Manual) 2 Platelet Evaluation Normal Large Platelets Present Giant Platelets Present Anisocytosis (manual) Slight pO2 87 H VBG pH 7.42 VBG pCO2 49.0 VBG HCO3 31.8 H VBG Total CO2 33.3 H VBG O2 Sat (Calc) 98.3 H VBG Base Excess 6.1 H VBG Potassium 4.3 Glucose 154 H Lactate 3.4 H FiO2 21.0 Sodium 138 140.0 Potassium 4.5 Chloride 104 104.0 Carbon Dioxide 25 Anion Gap 13 BUN 6 L Creatinine 0.4 L Est GFR ( Amer) > 60 Est GFR (Non-Af Amer) > 60 Random Glucose 149 H Calcium 8.1 L Phosphorus 3.9 Magnesium 2.2 Total Bilirubin 0.7 AST 47 H ALT 81 H Alkaline Phosphatase 79 Total Protein 5.6 L Albumin 2.8 L Globulin 2.8 Albumin/Globulin Ratio 1.0 L Venous Blood Potassium 4.3 Assessment & Plan - Assessment and Plan (Free Text) Plan: No surgical intervention needed at this time. ADvance diet as tolerated. DW Dr. Foster <Rigoberto Quick - Last Filed: 04/05/17 10:52> History of Present Illness - History of Present Illness History of Present Illness: Surgery Consult Note. Dr. Foster 46yo F with PMHx of COPD, Asthma, Hep C, Cirrhosis, Heroin abuse here for evaluation of shortness of breath and cough. Surgery consulted for distended abdomen with ?Ileus. She is very-well known to the medical service at [facility] Patient states that she initially had some abdominal pain in the ED today, however, it resolved after having a BM and passing a lot of flatus. She states that she has noticed a distended abdomen for the past 6 months. She reports having similar symptoms 2 weeks ago which resolved after enemas and laxatives. Patient denies any current abdominal pain, no N/V/D. No F/C. She states that she is hungry and would like to eat. In the ED, she obtained a CT Abd/Pelvis which shows a ?mild ileus. Primary team attempted insertion of NGT and patient did not tolerate and she currently refuses. PMHx: COPD, Asthma, Hep C, Cirrhosis, Heroin Abuse PSHx: Appendectomy, Tonsillectomy Social Hx: Current heavy tobacco use, current heavy ETOH use. last heroin use 2 weeks ago NKDA Review of Systems - Review of Systems All systems: reviewed and no additional remarkable complaints except - Constitutional Constitutional: absent: Chills, Fever - Gastrointestinal Gastrointestinal: Abdominal Pain, Bloating, Constipation. absent: Diarrhea, Nausea, Temesmus Past Patient History - Infectious Disease Hx of Infectious Diseases: None - Tetanus Immunizations Tetanus Immunization: Unknown - Past Medical History & Family History Past Medical History?: Yes - Past Social History Smoking Status: Heavy Smoker > 10 Cigarettes Daily - CARDIAC Hx Cardiac Disorders: No Hx Hypertension: Yes - PULMONARY Hx Respiratory Disorders: Yes Hx Chronic Obstructive Pulmonary Disease (COPD): Yes - NEUROLOGICAL HX Cerebrovascular Accident: No - HEENT Hx HEENT Problems: No - RENAL Hx Chronic Kidney Disease: No - ENDOCRINE/METABOLIC Hx Hypothyroidism: Yes - HEMATOLOGICAL/ONCOLOGICAL Hx Blood Disorders: Yes Hx Hepatitis C: Yes - INTEGUMENTARY Other/Comment: multiple bruises left knee, swelling right knee and pain to both knees from fall 2 wks ago, multiple eccymotic arreas to left arm, small scab right arm, 2.5cm x 2cm deep red growth to rle "I have had it for years." surgical scar mid lower abd, eccymotic area to lower abd, umbilical hernia noted - MUSCULOSKELETAL/RHEUMATOLOGICAL Hx Falls: Yes (fell 2 wks ago) - GASTROINTESTINAL Hx Gastrointestinal Disorders: Yes Hx Pancreatitis: (pt denies pancreatitis) Other/Comment: Umbilical hernia /cirrhosis/ distended abd - GENITOURINARY/GYNECOLOGICAL Hx Genitourinary Disorders: No Hx Sexually Transmitted Disorders: (pt denies trichomonas) - PSYCHIATRIC Hx Psychophysiologic Disorder: Yes Hx Anxiety: Yes Hx Depression: Yes Hx Substance Use: Yes (former) Other/Comment: alcohol drinks 4 or 5 24 oz cans of 4-frances a day, 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 - ANESTHESIA Hx Anesthesia: Yes Hx Anesthesia Reactions: No Hx Malignant Hyperthermia: No Meds - Medications Medications: Current Medications Albuterol/Ipratropium (Duoneb 3 Mg/0.5 Mg (3 Ml) Ud) 3 ml IH Q2H PRN PRN Reason: Shortness of Breath Albuterol/Ipratropium (Duoneb 3 Mg/0.5 Mg (3 Ml) Ud) 3 ml IH [id number] JACK Heparin Sodium (Porcine) (Heparin) 5,000 units SC Q8 JACK PRN Reason: Protocol Multivitamins/Vitamin C 10 ml/Thiamine HCl 100 mg/ Folic Acid 1 mg/ Sodium Chloride 1,011.2 mls @ 125 mls/hr IV .Q8H6M ONE Stop: 04/04/17 09:21 Sodium Chloride (Sodium Chloride 0.9%) 1,000 mls @ 100 mls/hr IV .Q10H JACK Piperacillin Sod/Tazobactam Sod (Zosyn 3.375 In Ns 100ml) 100 mls @ 200 mls/hr IVPB Q6 JACK PRN Reason: Protocol Stop: 04/04/17 12:29 Lorazepam (Ativan) 1 mg IVP Q2H PRN; Protocol PRN Reason: Withdrawal Methylprednisolone (Solu-Medrol) 40 mg IVP Q12 [facility] Montelukast Sodium (Singulair) 10 mg PO HS [facility]ACK Ondansetron HCl (Zofran Inj) 4 mg IVP Q6H PRN PRN Reason: Nausea/Vomiting Physical Exam - Constitutional Appears: Non-toxic, No Acute Distress - Head Exam Head Exam: ATRAUMATIC, NORMAL INSPECTION, NORMOCEPHALIC - Eye Exam Eye Exam: EOMI - Respiratory Exam Respiratory Exam: Decreased Breath Sounds, Wheezes Additional comments: Bilaterally decreased breath sounds - Cardiovascular Exam Cardiovascular Exam: absent: JVD - GI/Abdominal Exam GI & Abdominal Exam: Diminished Bowel Sounds, Distended, Firm Additional comments: Distended. Tympanic. No tenderness to palpation. No rebound. No Guarding. No peritoneal signs Umbilical hernia- small, soft. - Back Exam Back exam: NORMAL INSPECTION. absent: CVA tenderness (L) - Neurological Exam Neurological exam: Alert, Oriented x3 Results - Vital Signs Recent Vital Signs: Last Vital Signs Temp 100.4 F H 04/04/17 00:06 Pulse 112 H 04/03/17 23:47 Resp 18 04/03/17 23:47 BP 152/70 H 04/03/17 23:47 Pulse Ox 100 04/03/17 23:47 - Labs Result Diagrams: 04/03/17 19:30 04/03/17 19:30 Assessment & Plan - Assessment and Plan (Free Text) Assessment: 46yo F with mild enteritis v. heroin induced ileus - Patient currently refusing NGT after unsuccessful attempt by primary team. Will hold off as she is not nauseous or vomiting - Recommend NGT if she becomes nauseous or begins to vomit - Enemas prn - serial abdominal exams - encourage ambulation - NPO with IVF - f/u AM labs Further Recs as per Dr. Cristian Quick PGY1 surgery pager: [phone] <Santana Foster - Last Filed: 04/06/17 09:18> Meds - Medications Medications: Current Medications Albuterol/Ipratropium (Duoneb 3 Mg/0.5 Mg (3 Ml) Ud) 3 ml IH Q2H PRN PRN Reason: Shortness of Breath Last Admin: 04/06/17 05:10 Dose: 3 ml Albuterol/Ipratropium (Duoneb 3 Mg/0.5 Mg (3 Ml) Ud) 3 ml IH [id number] JACK Last Admin: 04/06/17 08:10 Dose: 3 ml Heparin Sodium (Porcine) (Heparin) 5,000 units SC Q8 JACK PRN Reason: Protocol Last Admin: 04/06/17 05:10 Dose: 5,000 units Sodium Chloride (Sodium Chloride 0.9%) 1,000 mls @ 100 mls/hr IV .Q10H [facility] Last Admin: 04/06/17 05:19 Dose: Not Given Piperacillin Sod/Tazobactam Sod (Zosyn 3.375 In Ns 100ml) 100 mls @ 200 mls/hr IVPB Q6 JACK PRN Reason: Protocol Stop: 04/13/17 18:01 Last Admin: 04/06/17 05:10 Dose: 200 mls/hr Lorazepam (Ativan) 1 mg IVP Q4H PRN; Protocol PRN Reason: Withdrawal Last Admin: 04/06/17 05:16 Dose: 1 mg Lorazepam (Ativan) 1 mg PO Q6 JACK PRN Reason: Protocol Last Admin: 04/06/17 06:30 Dose: Not Given Methylprednisolone (Solu-Medrol) 30 mg IVP Q12 JACK Last Admin: 04/05/17 21:32 Dose: 30 mg Montelukast Sodium (Singulair) 10 mg PO HS [facility] Last Admin: 04/05/17 21:33 Dose: 10 mg Ondansetron HCl (Zofran Inj) 4 mg IVP Q6H PRN PRN Reason: Nausea/Vomiting Trazodone HCl (Desyrel) 50 mg PO HS [facility] Last Admin: 04/06/17 00:04 Dose: 50 mg Results - Vital Signs Recent Vital Signs: Last Vital Signs Temp 99.8 F H 04/06/17 06:00 Pulse 93 H 04/06/17 06:00 Resp 20 04/06/17 06:00 BP 129/86 04/06/17 06:00 Pulse Ox 96 04/06/17 06:00 - Labs Result Diagrams: 04/06/17 07:30 04/06/17 07:30 Labs: Laboratory Results - last 24 hr 04/06/17 04/06/17 07:30 07:30 WBC 15.4 H D RBC 3.55 Hgb 11.4 L Hct 35.8 L MCV 100.8 MCH 32.1 MCHC 31.8 RDW 14.5 Plt Count 317 MPV 10.0 Gran % 89.6 H Lymph % (Auto) 5.7 L Davison % (Auto) 4.6 Eos % (Auto) 0.0 L Baso % (Auto) 0.1 Gran # 13.77 H Lymph # 0.9 L Davison # 0.7 H Eos # 0.0 Baso # 0.01 Sodium 140 Potassium 4.1 Chloride 103 Carbon Dioxide 29 Anion Gap 12 BUN 9 Creatinine 0.6 L Est GFR ( Amer) > 60 Est GFR (Non-Af Amer) > 60 Random Glucose 150 H Calcium 8.2 L Phosphorus 4.6 H Magnesium 1.8 Total Bilirubin 0.5 AST 57 H D ALT 100 H Alkaline Phosphatase 69 Total Protein 5.6 L Albumin 3.0 Globulin 2.6 Albumin/Globulin Ratio 1.1 Attending/Attestation - Attestation I have personally seen and examined this patient.: Yes I have fully participated in the care of the patient.: Yes I have reviewed all pertinent clinical information: Yes Notes (Text): Pt was seen and examined at bedside Agree with above note and assessment Pt with Ileus and IV drug abuse Pt had bowel movement and passing gas Abdomen: soft nontender Labs and radiology reviewed Ass: Resolved ileus and constipation Plan : C.w current mx No need for surgical intervention at present f.u with PMD and GI as out pt Plan d.w pt in detail. Risk and benefit explained in detail.
[2017-04-04] MEDS: Piperacillin/Tazobact 3.375 gm 100 ML IVPB SCH ×4 (06:15→23:43)
[2017-04-04] MEDS: Albuterol-Ipratrop 3 mg / 0.5 (3 ml) UD IH SCH ×3 (07:07→13:53)
[2017-04-04 07:17] LABS: BASO # 0.02 K/mm3 (0.0-2.0); BASO % 0.1 % (0.0-3.0); GRAN # 12.32 (1.4-6.5); GRAN % 90.3 % (50.0-68.0); HEMATOCRIT 36.9 % (36.0-48.0); LYMPH % 7.3 % (22.0-35.0); MEAN CELL VOLUME 98.1 fl (80.0-105.0); MEAN CORPUSCULAR HEMOGLOBIN 32.2 pg (25.0-35.0); MEAN CORPUSCULAR HGB CONC 32.8 g/dl (31.0-37.0); MEAN PLATELET VOLUME 10.3 fl (7.0-11.0); MONO # 0.3 (0.1-0.6); MONO % 2.3 % (1.0-6.0); PLATELET COUNT 299 10^3/uL (120.0-450.0); RED CELL DISTRIBUTION WIDTH 14.6 % (11.5-14.5); WHITE BLOOD COUNT 13.7 10^3/ul (4.5-11.0)
[2017-04-04 07:34] LABS: ALKALINE PHOSPHATASE 79 U/L (38-126); ALT/SGPT 81 U/L (7-56); AST/SGOT 47 U/L (14-36); BILIRUBIN,TOTAL 0.7 mg/dL (0.2-1.3); BLOOD UREA NITROGEN 6 mg/dL (7-21); CALCIUM 8.1 mg/dL (8.4-10.5); CARBON DIOXIDE 25 mmol/L (21-33); CHLORIDE 104 mmol/L (98-107); GFR AFRICAN-AMERICAN > 60; GLUCOSE,RANDOM 149 mg/dL (70-110); MAGNESIUM 2.2 mg/dL (1.7-2.2); PHOSPHOROUS 3.9 mg/dL (2.5-4.5); POTASSIUM 4.5 mmol/L (3.6-5.0); SODIUM 138 mmol/L (132-148); TOTAL PROTEIN 5.6 g/dL (5.8-8.3)
[2017-04-04 07:46] LABS: VENOUS BLOOD GAS BASE EXCESS 6.1 mmol/L (0.0-2.0); VENOUS BLOOD PH 7.42 (7.32-7.43)
--- NOTE | 2017-04-04 08:10 | RAD ---
HISTORY: sob/abdominal pain COMPARISON: Comparison is made to 03/22/2017 FINDINGS: LUNGS: No significant interval change in the lungs noted since the previous exam. Prominent right hilum is again noted. PLEURA: No significant pleural effusion identified, no pneumothorax apparent. CARDIOVASCULAR: Normal. OSSEOUS STRUCTURES: No significant abnormalities. VISUALIZED UPPER ABDOMEN: Normal. OTHER FINDINGS: None. IMPRESSION: No active disease. No significant interval change.
[2017-04-04 09:19] LABS: ANISOCYTOSIS SLIGHT; ATYPICAL LYMPHOCYTE 1 % (0.0-0.0); GIANT PLATELETS PRESENT; LARGE PLATELETS PRESENT; NEUTROPHIL 91 % (50.0-70.0); PLATELET ESTIMATE NORMAL (NORMAL)
[2017-04-04] MEDS: MethylPREDNISolone 40 mg Vial IVP SCH ×2 (11:09→21:29)
[2017-04-04 11:31] LABS: VENOUS BLOOD GAS BASE EXCESS 8.3 mmol/L (0.0-2.0); VENOUS BLOOD PH 7.46 (7.32-7.43)
[2017-04-04] MEDS: Sodium Chloride 0.9% 1,000 ML IV SCH ×2 (11:37→20:38)
--- NOTE | 2017-04-04 11:47 | CARD ---
APPROVED REPORT EKG Measurement Heart [id number] <Conclusion> Sinus tachycardia Otherwise normal ECG
[2017-04-04] MEDS: Vancomycin 1gm in NS 250ml 1 GM/250 ML BAG IVPB SCH (14:21)
--- NOTE | 2017-04-05 00:33 | CON ---
DATE: 04/04/2017 The patient is in room 374, bed 1. CHIEF COMPLAINT: Weakness times several days. HISTORY OF PRESENT ILLNESS: She is a 46-year-old female with past medical history significant for a history of chronic obstructive lung disease, asthma, multiple hospitalizations, polysubstance abuse, hepatitis C, history of pneumothorax, hyperlipidemia, history of chest tube placement, and tonsillectomy with NO KNOWN ALLERGIES, recent hospitalization, now admitted with weakness, chronic obstructive lung disease the patient is complaining of abdominal pain and shortness of breath. No vomiting. No diarrhea. No chest pain. PAST MEDICAL HISTORY: Significant for chronic obstructive lung disease, asthma, multiple hospitalizations, polysubstance abuse, hepatitis C, pneumothorax, hyperlipidemia, anxiety, and depression. PAST SURGICAL HISTORY: Significant for chest tube placement for pneumothorax, tonsillectomy, appendectomy. ALLERGIES: THE PATIENT HAS NO KNOWN ALLERGIES. MEDICATIONS: At home include trazodone, montelukast, vitamins, Protonix, Medrol Schuyler. PHYSICAL EXAMINATION: GENERAL: The patient is in bed, in no acute distress. VITAL SIGNS: Temperature of 98, T-max was 100.4, heart rate of 107, blood pressure is 130/90 with a respiratory rate of 21. HEENT: Unremarkable. NECK: Supple. LUNGS: Have decreased breath sounds. HEART: Normal S1 and S2. ABDOMEN: Soft and nontender. LABORATORY DATA: Laboratory examination reveals a white count of 20,000, hemoglobin of 13, and platelets of 322. Coagulation is noted and the gases are noted. Chemistries reveal a BUN of 6 and creatinine of 0.4. LFTs are elevated and lipase is 75. Urinalysis is noted. Alcohol level is noted. Review of the chest x-ray, no change in lung noted. No active disease. CAT scan of the abdomen and pelvis, mild enteritis, cholelithiasis, mild emphysematous change in the lower abdomen, lower thorax, consult by Dr. Quick is reviewed and Dr. Chase Trejo's history and physical examination is reviewed. ASSESSMENT AND PLAN: This is a 46-year-old female with chronic obstructive lung disease, asthma, polysubstance abuse, hepatitis C, cirrhosis, pneumothorax, hyperlipidemia, anxiety, depression with sepsis with fever, tachycardia, dyspnea, sepsis secondary to enteritis, must rule out underlying healthcare-associated pneumonia. Blood cultures have been ordered. Urine cultures have been ordered, although urinalysis is unremarkable. We will order a procalcitonin and sputum cultures, and start the patient empirically on vancomycin and Zosyn. We will make further recommendations upon availability of initial results and we will also send the stools for Clostridium difficile, she is denying any diarrhea at this time; exacerbation of chronic obstructive pulmonary disease, must rule out underlying. We will follow closely with you. Margarito Robert MD
[2017-04-05] MEDS: Sodium Chloride 0.9% 1,000 ML IV SCH ×4 (00:57→16:05)
[2017-04-05] MEDS: Vancomycin 1gm in NS 250ml 1 GM/250 ML BAG IVPB SCH ×2 (00:57→14:51)
[2017-04-05] MEDS: Piperacillin/Tazobact 3.375 gm 100 ML IVPB SCH ×4 (05:35→23:05)
[2017-04-05 07:22] LABS: BASO # 0.02 K/mm3 (0.0-2.0); BASO % 0.1 % (0.0-3.0); GRAN # 20.26 (1.4-6.5); GRAN % 90.9 % (50.0-68.0); HEMATOCRIT 36.6 % (36.0-48.0); LYMPH # 1.2 (1.2-3.4); LYMPH % 5.3 % (22.0-35.0); MEAN CELL VOLUME 101.1 fl (80.0-105.0); MEAN CORPUSCULAR HGB CONC 31.7 g/dl (31.0-37.0); MEAN PLATELET VOLUME 11.4 fl (7.0-11.0); MONO # 0.8 (0.1-0.6); MONO % 3.7 % (1.0-6.0); RED CELL DISTRIBUTION WIDTH 14.6 % (11.5-14.5); WHITE BLOOD COUNT 22.3 10^3/ul (4.5-11.0)
[2017-04-05 07:24] LABS: ALB/GLOB RATIO 1.1 (1.1-1.8); ALKALINE PHOSPHATASE 80 U/L (38-126); ALT/SGPT 100 U/L (7-56); AST/SGOT 46 U/L (14-36); BILIRUBIN,TOTAL 0.6 mg/dL (0.2-1.3); BLOOD UREA NITROGEN 7 mg/dL (7-21); CALCIUM 8.6 mg/dL (8.4-10.5); CARBON DIOXIDE 28 mmol/L (21-33); CHLORIDE 106 mmol/L (98-107); GFR AFRICAN-AMERICAN > 60; GLUCOSE,RANDOM 130 mg/dL (70-110); MAGNESIUM 1.9 mg/dL (1.7-2.2); PHOSPHOROUS 4.4 mg/dL (2.5-4.5); POTASSIUM 4.3 mmol/L (3.6-5.0); SODIUM 139 mmol/L (132-148); TOTAL PROTEIN 5.6 g/dL (5.8-8.3)
[2017-04-05] MEDS: Albuterol-Ipratrop 3 mg / 0.5 (3 ml) UD IH SCH ×3 (07:41→20:37)
[2017-04-05] MEDS: MethylPREDNISolone 40 mg Vial IVP SCH ×2 (10:02→21:32)
--- NOTE | 2017-04-05 13:15 | CP.PCM.PN ---
"<Keesha Marshopal - Last Filed: 04/05/17 13:16> Subjective - Date & Time of Evaluation Date of Evaluation: 04/05/17 Time of Evaluation: 13:12 - Subjective Subjective: Patient has been seen and examined. She reports no improvement of her cough or her SOB. Patient states the cough is productive but non-bloody. Patient also complains of 5/10 abdominal pain. She denies any fever, chills, n/v, constipation, or urinary symptoms. Patient is having diarrhea per nurse. Objective - Vital Signs/Intake and Output Vital Signs (last 24 hours): Temp Pulse Resp BP Pulse Ox 98.1 F 95 H 20 133/92 H 96 04/05/17 12:00 04/05/17 12:00 04/05/17 12:00 04/05/17 12:00 04/05/17 06:00 Intake and Output: 04/05/17 04/05/17 06:59 18:59 Intake Total 2220 Output Total 2 Balance 2218 - Medications Medications: Current Medications Albuterol/Ipratropium (Duoneb 3 Mg/0.5 Mg (3 Ml) Ud) 3 ml IH Q2H PRN PRN Reason: Shortness of Breath Albuterol/Ipratropium (Duoneb 3 Mg/0.5 Mg (3 Ml) Ud) 3 ml IH [id number] [facility] Last Admin: 04/05/17 07:41 Dose: 3 ml Heparin Sodium (Porcine) (Heparin) 5,000 units SC Q8 CRAIG PRN Reason: Protocol Last Admin: 04/05/17 05:52 Dose: 5,000 units Sodium Chloride (Sodium Chloride 0.9%) 1,000 mls @ 100 mls/hr IV .Q10H [facility] Last Admin: 04/05/17 05:32 Dose: Not Given Vancomycin HCl (Vancomycin 1gm) 1 gm in 250 mls @ 167 mls/hr IVPB Q12H [facility] PRN Reason: Protocol Stop: 04/13/17 13:16 Last Admin: 04/05/17 00:57 Dose: 167 mls/hr Piperacillin Sod/Tazobactam Sod (Zosyn 3.375 In Ns 100ml) 100 mls @ 200 mls/hr IVPB Q6 [facility]RAIG PRN Reason: Protocol Stop: 04/13/17 18:01 Last Admin: 04/05/17 05:35 Dose: 200 mls/hr Lorazepam (Ativan) 1 mg IVP Q2H PRN; Protocol PRN Reason: Withdrawal Last Admin: 04/05/17 13:02 Dose: 1 mg Lorazepam (Ativan) 2 mg PO Q6H [facility]RAIG PRN Reason: Protocol Last Admin: 04/05/17 10:02 Dose: 2 mg Methylprednisolone (Solu-Medrol) 40 mg IVP Q12 [facility] Last Admin: 04/05/17 10:02 Dose: 40 mg Montelukast Sodium (Singulair) 10 mg PO HS [facility] Last Admin: 04/04/17 21:29 Dose: 10 mg Ondansetron HCl (Zofran Inj) 4 mg IVP Q6H PRN PRN Reason: Nausea/Vomiting - Labs Labs: 04/05/17 06:30 04/05/17 06:30 PT 10.8 SECONDS (9.4-12.5) 04/03/17 19:30 INR 0.99 (0.93-1.08) 04/03/17 19:30 APTT 24.6 Seconds (25.1-36.5) L 04/03/17 19:30 - Additional Findings Additional findings: - Constitutional Appears: Non-toxic, In Acute Distress (moderate) - Head Exam Head Exam: ATRAUMATIC, NORMOCEPHALIC - Eye Exam Eye Exam: EOMI, Normal appearance - ENT Exam ENT Exam: Mucous Membranes Moist - Neck Exam Neck exam: Positive for: Normal Inspection - Respiratory Exam Respiratory Exam: Accessory Muscle Use, Decreased Breath Sounds, Prolonged Expiratory Phase, Wheezes (faint). absent: Rhonchi, Stridor - Cardiovascular Exam Cardiovascular Exam: Tachycardia, RRR, +S1, +S2 - GI/Abdominal Exam GI & Abdominal Exam: Distended, Firm, Normoactive bowel sounds, Tenderness (RLQ) . absent: Guarding, Hernia, Rebound, Rigid - Extremities Exam Extremities exam: Positive for: pedal edema (1+ to mid-gamez). Negative for: calf tenderness - Neurological Exam Neurological exam: Alert, Oriented x3 Additional comments: tremor (Improved) - Psychiatric Exam Psychiatric exam: Normal Affect, Normal Mood - Skin Skin Exam: Dry, Intact, Normal Color Assessment and Plan - Assessment and Plan (Free Text) Assessment: 46 yo F with PMH of COPD/Asthma, tobacco abuse, alcohol abuse, polysubstance abuse, IVDU presents complaining of acute onset shortness of breath and mild abdominal pain. In the ER, code SEPSIS was called, and patient received 2L of LR as a bolus and IV Abx (Vanc and Zosyn). She also received IV steroids and Duonebs and was placed on BIPAP, with subsequent improvement in respiratory status. Plan: 1. Dyspnea 2/2 COPD Exacerbation vs Asthma Exacerbation vs CAP * CXR: no apparent interval change from prior admission; pending official read * Solu medrol 40 mg IV Q12 * Duonebs Q6 craig and Q2 PRN * Vanc/Zosyn * Lactate downtrending to 2.8 2. Abdominal pain 2/2 Ileus * Maintain NPO * Continue IVF hydration (banana bag then NS) * Zofran 4mg IV Q6 PRN for nausea * Serial abdominal exams; continue to monitor, pending repeat VBG with lactate as above * Requested surgical consult; appreciate recs * Diet advanced to Altered GI/Hepatic Diet. 3. Alcohol abuse * Presents with elevated EtOH level; now diaphoretic and tremulous, likely withdrawing * Banana bag then NS * CIWA protocol * Ativan 1mg IV Q2h PRN|Ativan 2mg PO Q6 CRAIG. Patient still showing withdrawal symptoms. * Fall/Seizure precautions 4. Leukocytosis * Likely 2/2 acute illness vs chronic steroid use * Afebrile today * Blood cultures: NEGATIVE * Urine Cultures: PENDING * Continue IV Abx (Vanc and Zosyn Day 2) 5. Hypokalemia/Hypomagnesemia (Resolved) * monitor with morning labs 6. Transaminitis * Likely secondary to hep C and chronic alcoholism; had diagnosis of cholethiasis without obstruction at last visit * monitor * AST down to 46 and ALT up to 100 from 81. 7. History of depression * Continue home med: Celexa 10 mg PO QD GI/DVT Ppx - Protonix IV, and Heparin Patient seen, discussed, and reviewed with attending Darron Marsh - PGY1 <Karolina Watson - Last Filed: 04/05/17 15:38> Objective - Vital Signs/Intake and Output Vital Signs (last 24 hours): Temp Pulse Resp BP Pulse Ox 98.1 F 95 H 20 133/92 H 96 04/05/17 12:00 04/05/17 12:00 04/05/17 12:00 04/05/17 12:00 04/05/17 06:00 Intake and Output: 04/05/17 04/05/17 06:59 18:59 Intake Total 2220 Output Total 2 Balance 2218 - Medications Medications: Current Medications Albuterol/Ipratropium (Duoneb 3 Mg/0.5 Mg (3 Ml) Ud) 3 ml IH Q2H PRN PRN Reason: Shortness of Breath Albuterol/Ipratropium (Duoneb 3 Mg/0.5 Mg (3 Ml) Ud) 3 ml IH [id number] [facility] Last Admin: 04/05/17 14:22 Dose: 3 ml Heparin Sodium (Porcine) (Heparin) 5,000 units SC Q8 [facility]RAIG PRN Reason: Protocol Last Admin: 04/05/17 14:51 Dose: 5,000 units Sodium Chloride (Sodium Chloride 0.9%) 1,000 mls @ 100 mls/hr IV .Q10H [facility] Last Admin: 04/05/17 13:38 Dose: 100 mls/hr Vancomycin HCl (Vancomycin 1gm) 1 gm in 250 mls @ 167 mls/hr IVPB Q12H [facility] PRN Reason: Protocol Stop: 04/13/17 13:16 Last Admin: 04/05/17 14:51 Dose: 167 mls/hr Piperacillin Sod/Tazobactam Sod (Zosyn 3.375 In Ns 100ml) 100 mls @ 200 mls/hr IVPB Q6 [facility]IG PRN Reason: Protocol Stop: 04/13/17 18:01 Last Admin: 04/05/17 13:38 Dose: 200 mls/hr Lorazepam (Ativan) 1 mg IVP Q4H PRN; Protocol PRN Reason: Withdrawal Lorazepam (Ativan) 1 mg PO Q6 [facility]IG PRN Reason: Protocol Methylprednisolone (Solu-Medrol) 40 mg IVP Q12 [facility] Last Admin: 04/05/17 10:02 Dose: 40 mg Montelukast Sodium (Singulair) 10 mg PO HS [facility] Last Admin: 04/04/17 21:29 Dose: 10 mg Ondansetron HCl (Zofran Inj) 4 mg IVP Q6H PRN PRN Reason: Nausea/Vomiting - Labs Labs: 04/05/17 06:30 04/05/17 06:30 PT 10.8 SECONDS (9.4-12.5) 04/03/17 19:30 INR 0.99 (0.93-1.08) 04/03/17 19:30 APTT 24.6 Seconds (25.1-36.5) L 04/03/17 19:30 Attending/Attestation - Attestation I have personally seen and examined this patient.: Yes I have fully participated in the care of the patient.: Yes I have reviewed all pertinent clinical information, including history, physical exam and plan: Yes Notes (Text): 04/05/17 15:33 46 year old female with past medical history of asthma/COPD, chronic ETOH abuse , and substance abuse who presented with fever, abdominal pain, constipation and shortness of breath. Her abdominal symptoms are improving and her diet will be advanced. She is on iv steroids for asthma and iv ativan for alcohol withdrawal which we will begin to taper. Issue of medication compliance, alcohol abstinence and smoking cessation was discussed with patient. Stool for CDif is ordered if she is having diarrhea. Will replete and repeat lytes. Leukocytosis likely secondary to iv steroids however will rule out CDif diarrhea if she is having loose stools. Karolina Watson MD Hospitalist."
[2017-04-06] MEDS: Albuterol-Ipratrop 3 mg / 0.5 (3 ml) UD IH SCH ×4 (01:15→21:37)
--- NOTE | 2017-04-06 01:19 | PN ---
DATE: 04/05/2017 SUBJECTIVE: The patient is in bed, in no acute distress. PHYSICAL EXAMINATION: VITAL SIGNS: On exam, temperature is 97, blood pressure is 130/80, and respiratory rate of 18. HEENT: Examination of HEENT is unremarkable. NECK: Supple. LUNGS: Have decreased breath sounds. HEART: Exam is normal S1 and S2. GASTROINTESTINAL: Abdominal examination is soft. LABORATORY DATA: Laboratory examination reveals a white count of 22,000, hemoglobin of 11, and platelets of 155. Chemistries reveals a BUN of 7 and creatinine of 0.7. Procalcitonin is 0.09. Urinalysis is noted and to be unremarkable. Alcohol level of 162. Microbiology reveals the blood cultures are no growth. Urine cultures are no growth. MEDICATIONS: Review of orders reveals the patient to be on Solu-Medrol and vancomycin. ASSESSMENT AND PLAN: This is a 46-year-old female with recent hospitalization with no known allergies who was admitted with a chronic obstructive lung disease, asthma, multiple hospitalizations, polysubstance abuse, hepatitis C, history of pneumothorax, hyperlipidemia, history of chest tube placement, and tonsillectomy admitted to the hospital at this time with sepsis secondary to enteritis and healthcare-associated pneumonia. With a normal procalcitonin and negative urine culture, we will discontinue the vancomycin at this time. Awaiting for stool cultures and stool for Clostridium difficile. We will continue Zosyn at this time and check on her final cultures. Margarito Robert MD
[2017-04-06] MEDS: Piperacillin/Tazobact 3.375 gm 100 ML IVPB SCH ×4 (05:10→23:36)
[2017-04-06] MEDS: Sodium Chloride 0.9% 1,000 ML IV SCH ×3 (05:11→23:41)
[2017-04-06 07:36] LABS: BASO # 0.01 K/mm3 (0.0-2.0); BASO % 0.1 % (0.0-3.0); GRAN # 13.77 (1.4-6.5); GRAN % 89.6 % (50.0-68.0); HEMATOCRIT 35.8 % (36.0-48.0); LYMPH # 0.9 (1.2-3.4); LYMPH % 5.7 % (22.0-35.0); MEAN CELL VOLUME 100.8 fl (80.0-105.0); MEAN CORPUSCULAR HEMOGLOBIN 32.1 pg (25.0-35.0); MEAN CORPUSCULAR HGB CONC 31.8 g/dl (31.0-37.0); MONO # 0.7 (0.1-0.6); MONO % 4.6 % (1.0-6.0); RED CELL DISTRIBUTION WIDTH 14.5 % (11.5-14.5); WHITE BLOOD COUNT 15.4 10^3/ul (4.5-11.0)
[2017-04-06 08:00] LABS: ALB/GLOB RATIO 1.1 (1.1-1.8); ALKALINE PHOSPHATASE 69 U/L (38-126); ALT/SGPT 100 U/L (7-56); AST/SGOT 57 U/L (14-36); BILIRUBIN,TOTAL 0.5 mg/dL (0.2-1.3); BLOOD UREA NITROGEN 9 mg/dL (7-21); CALCIUM 8.2 mg/dL (8.4-10.5); CARBON DIOXIDE 29 mmol/L (21-33); CHLORIDE 103 mmol/L (98-107); GFR AFRICAN-AMERICAN > 60; GLUCOSE,RANDOM 150 mg/dL (70-110); MAGNESIUM 1.8 mg/dL (1.7-2.2); PHOSPHOROUS 4.6 mg/dL (2.5-4.5); POTASSIUM 4.1 mmol/L (3.6-5.0); SODIUM 140 mmol/L (132-148); TOTAL PROTEIN 5.6 g/dL (5.8-8.3)
[2017-04-06] MEDS: MethylPREDNISolone 40 mg Vial IVP SCH ×2 (10:08→21:55)
--- NOTE | 2017-04-06 14:51 | CP.PCM.PN ---
"<Keesha Marshopal - Last Filed: 04/06/17 14:43> Subjective - Date & Time of Evaluation Date of Evaluation: 04/06/17 Time of Evaluation: 14:43 - Subjective Subjective: Patient has been seen and examined. She reports minimal improvement of her cough or her SOB. Patient states the cough is productive but non-bloody. She currently denies any abdominal pain. She denies any fever, chills, n/v/d constipation, or urinary symptoms. She asked for Trazadone to help her sleep. Objective - Vital Signs/Intake and Output Vital Signs (last 24 hours): Temp Pulse Resp BP Pulse Ox 97.3 F L 79 20 155/105 H 96 04/06/17 12:00 04/06/17 12:00 04/06/17 12:00 04/06/17 12:00 04/06/17 06:00 Intake and Output: 04/06/17 04/06/17 06:59 18:59 Intake Total 780 Output Total 700 Balance 80 - Medications Medications: Current Medications Albuterol/Ipratropium (Duoneb 3 Mg/0.5 Mg (3 Ml) Ud) 3 ml IH Q2H PRN PRN Reason: Shortness of Breath Last Admin: 04/06/17 05:10 Dose: 3 ml Albuterol/Ipratropium (Duoneb 3 Mg/0.5 Mg (3 Ml) Ud) 3 ml IH [id number] [facility] Last Admin: 04/06/17 14:24 Dose: 3 ml Heparin Sodium (Porcine) (Heparin) 5,000 units SC Q8 [facility] PRN Reason: Protocol Last Admin: 04/06/17 05:10 Dose: 5,000 units Sodium Chloride (Sodium Chloride 0.9%) 1,000 mls @ 100 mls/hr IV .Q10H [facility] Last Admin: 04/06/17 05:19 Dose: Not Given Piperacillin Sod/Tazobactam Sod (Zosyn 3.375 In Ns 100ml) 100 mls @ 200 mls/hr IVPB Q6 [facility] PRN Reason: Protocol Stop: 04/13/17 18:01 Last Admin: 04/06/17 11:47 Dose: 200 mls/hr Lorazepam (Ativan) 1 mg IVP Q4H PRN; Protocol PRN Reason: Withdrawal Last Admin: 04/06/17 10:42 Dose: 1 mg Lorazepam (Ativan) 1 mg PO Q6 [facility] PRN Reason: Protocol Last Admin: 04/06/17 11:52 Dose: 1 mg Methylprednisolone (Solu-Medrol) 30 mg IVP Q12 [facility] Last Admin: 04/06/17 10:08 Dose: 30 mg Montelukast Sodium (Singulair) 10 mg PO HS [facility] Last Admin: 04/05/17 21:33 Dose: 10 mg Ondansetron HCl (Zofran Inj) 4 mg IVP Q6H PRN PRN Reason: Nausea/Vomiting Trazodone HCl (Desyrel) 50 mg PO HS [facility] Last Admin: 04/06/17 00:04 Dose: 50 mg - Labs Labs: 04/06/17 07:30 04/06/17 07:30 PT 10.8 SECONDS (9.4-12.5) 04/03/17 19:30 INR 0.99 (0.93-1.08) 04/03/17 19:30 APTT 24.6 Seconds (25.1-36.5) L 04/03/17 19:30 - Additional Findings Additional findings: - Constitutional Appears: Non-toxic, In Acute Distress (moderate) - Head Exam Head Exam: ATRAUMATIC, NORMOCEPHALIC - Eye Exam Eye Exam: EOMI, Normal appearance - ENT Exam ENT Exam: Mucous Membranes Moist - Neck Exam Neck exam: Positive for: Normal Inspection - Respiratory Exam Respiratory Exam: Accessory Muscle Use, Decreased Breath Sounds, Prolonged Expiratory Phase, Wheezes (faint). absent: Rhonchi, Stridor - Cardiovascular Exam Cardiovascular Exam: RRR, +S1, +S2. Absent: Tachycardia - GI/Abdominal Exam GI & Abdominal Exam: Distended, Normoactive bowel sounds. absent: Firm, Guarding, Hernia, Rebound, Rigid, tenderness - Extremities Exam Extremities exam: Negative for: calf tenderness, pedal edema - Neurological Exam Neurological exam: Alert, Oriented x3 Additional comments: tremor (Improved) - Psychiatric Exam Psychiatric exam: Normal Affect, Normal Mood - Skin Skin Exam: Dry, Intact, Normal Color Assessment and Plan - Assessment and Plan (Free Text) Assessment: 46 yo F with PMH of COPD/Asthma, tobacco abuse, alcohol abuse, polysubstance abuse, IVDU presents complaining of acute onset shortness of breath and mild abdominal pain. In the ER, code SEPSIS was called, and patient received 2L of LR as a bolus and IV Abx (Vanc and Zosyn). She also received IV steroids and Duonebs and was placed on BIPAP, with subsequent improvement in respiratory status. Plan: 1. Dyspnea 2/2 COPD Exacerbation vs Asthma Exacerbation vs CAP * CXR (04/03): No active disease * Solu medrol 30 mg IV Q12 * Duonebs Q6 craig and Q2 PRN * Zosyn, Vanc-DC'd * Lactate (downtrending) 2.8 on 04/04/17 2. Abdominal pain 2/2 Ileus (Resolved) * Altered GI/Hepatic Diet * Continue IVF hydration (banana bag then NS) * Zofran 4mg IV Q6 PRN for nausea * Serial abdominal exams; continue to monitor * Requested surgical consult; appreciate recs * Diet advanced to Altered GI/Hepatic Diet. 3. Alcohol abuse * Presents with elevated EtOH level; tremor decreased * NS 100mls/hr. B12/Folate/Multivitamins * CIWA protocol * Ativan 1mg IV Q4h PRN|Ativan 1mg PO Q6 [facility]. Latest CIWA score is 5 * Fall/Seizure precautions 4. Leukocytosis (Improving) * Likely 2/2 acute illness vs chronic steroid use * Afebrile today * Blood cultures: NEGATIVE x 48 * Urine Cultures: NEGATIVE * Continue IV Abx (Zosyn Day 3). Follow up with ID if we can decrease Zosyn dose. 5. Hypokalemia/Hypomagnesemia (Resolved) * monitor with morning labs 6. Transaminitis (Worsening) * Likely secondary to hep C and chronic alcoholism; had diagnosis of cholelithiasis without obstruction at last visit * monitor * AST up to 57 from 46 and ALT @ 100 from 100. 7. History of depression/Insomnia * Continue Trazadone 50 HS GI/DVT Ppx - Protonix IV, and Heparin Patient seen, discussed, and reviewed with attending Darron Marsh - PGY1 <Karolina Watson - Last Filed: 04/06/17 16:06> Objective - Vital Signs/Intake and Output Vital Signs (last 24 hours): Temp Pulse Resp BP Pulse Ox 97.3 F L 79 20 155/105 H 96 04/06/17 12:00 04/06/17 12:00 04/06/17 12:00 04/06/17 12:00 04/06/17 06:00 Intake and Output: 04/06/17 04/06/17 06:59 18:59 Intake Total 780 Output Total 700 Balance 80 - Medications Medications: Current Medications Albuterol/Ipratropium (Duoneb 3 Mg/0.5 Mg (3 Ml) Ud) 3 ml IH Q2H PRN PRN Reason: Shortness of Breath Last Admin: 04/06/17 05:10 Dose: 3 ml Albuterol/Ipratropium (Duoneb 3 Mg/0.5 Mg (3 Ml) Ud) 3 ml IH [id number] [facility] Last Admin: 04/06/17 14:24 Dose: 3 ml Cyanocobalamin (Vitamin B12 100 Mcg Tab) 100 mcg PO DAILY [facility] Folic Acid (Folic Acid) 1 mg PO DAILY [facility] Last Admin: 04/06/17 15:20 Dose: 1 mg Heparin Sodium (Porcine) (Heparin) 5,000 units SC Q8 [facility] PRN Reason: Protocol Last Admin: 04/06/17 14:54 Dose: 5,000 units Sodium Chloride (Sodium Chloride 0.9%) 1,000 mls @ 100 mls/hr IV .Q10H [facility] Last Admin: 04/06/17 05:19 Dose: Not Given Piperacillin Sod/Tazobactam Sod (Zosyn 3.375 In Ns 100ml) 100 mls @ 200 mls/hr IVPB Q6 [facility] PRN Reason: Protocol Stop: 04/13/17 18:01 Last Admin: 04/06/17 11:47 Dose: 200 mls/hr Lorazepam (Ativan) 1 mg PO Q6 [facility] PRN Reason: Protocol Last Admin: 04/06/17 11:52 Dose: 1 mg Lorazepam (Ativan) 1 mg IVP Q6H PRN; Protocol PRN Reason: Withdrawal Methylprednisolone (Solu-Medrol) 30 mg IVP Q12 [facility] Last Admin: 04/06/17 10:08 Dose: 30 mg Montelukast Sodium (Singulair) 10 mg PO HS [facility] Last Admin: 04/05/17 21:33 Dose: 10 mg Multivitamins/Minerals (Therapeutic-M Tab) 1 tab PO 0800 [facility] Ondansetron HCl (Zofran Inj) 4 mg IVP Q6H PRN PRN Reason: Nausea/Vomiting Trazodone HCl (Desyrel) 50 mg PO HS [facility] Last Admin: 04/06/17 00:04 Dose: 50 mg - Labs Labs: 04/06/17 07:30 04/06/17 07:30 PT 10.8 SECONDS (9.4-12.5) 04/03/17 19:30 INR 0.99 (0.93-1.08) 04/03/17 19:30 APTT 24.6 Seconds (25.1-36.5) L 04/03/17 19:30 Attending/Attestation - Attestation I have personally seen and examined this patient.: Yes I have fully participated in the care of the patient.: Yes I have reviewed all pertinent clinical information, including history, physical exam and plan: Yes Notes (Text): 04/06/17 16:04 46 year old female with past medical history of asthma/COPD, chronic ETOH abuse , and substance abuse who presented with fever, abdominal pain, constipation and shortness of breath. Her abdominal symptoms including abdominal pain, ileus , diarrhea have improved. She is tolerating diet. She is on iv steroids for asthma and ativan for alcohol withdrawal. Issue of medication compliance, alcohol abstinence and smoking cessation was discussed with patient. Stool for CDif is ordered if she continues to complain of diarrhea however this is improving. Leukocytosis likely secondary to iv steroids however will rule out CDif diarrhea if she is having loose stools. Continue to monitor LFTs. Karolina Watson MD Hospitalist."
--- NOTE | 2017-04-06 21:56 | PN ---
DATE: 04/06/2017 SUBJECTIVE: The patient is in bed, in no acute distress, nontoxic. OBJECTIVE: VITAL SIGNS: On exam with temperature of 99, blood pressure is 155/100, respiratory rate of 20, heart rate of 93. HEENT: Unremarkable. NECK: Supple. LUNGS: Have decreased breath sounds. HEART: Normal S1, S2. LABORATORY EXAMINATION: Reveals a white count of 15,400, hemoglobin of 11, platelets of 317. BUN of 9, creatinine of 0.6, procalcitonin of 0.09. Urinalysis is noted. Urine cultures are negative. Blood cultures are negative. ASSESSMENT AND PLAN: This is a 46-year-old female with recent hospitalization, admitted with chronic obstructive lung disease, asthma, multiple hospitalizations, polysubstance abuse, hepatitis C, history of pneumothorax, hyperlipidemia, history of chest tube placement, tonsillectomy, admitted to the hospital at this time with sepsis secondary to enteritis and healthcare-associated pneumonia, normal procalcitonin, negative urine culture and awaiting for the stool C. diff, currently on Zosyn, negative procalcitonin. Dr. Watson's note is reviewed and stool for cultures. We will follow closely with you. Margarito Robert MD
[2017-04-07] MEDS: Piperacillin/Tazobact 3.375 gm 100 ML IVPB SCH ×3 (06:07→17:08)
[2017-04-07 08:00] LABS: BASO # 0.02 K/mm3 (0.0-2.0); BASO % 0.1 % (0.0-3.0); GRAN # 11.57 (1.4-6.5); GRAN % 84.5 % (50.0-68.0); HEMATOCRIT 34.8 % (36.0-48.0); LYMPH # 1.4 (1.2-3.4); LYMPH % 9.9 % (22.0-35.0); MEAN CORPUSCULAR HEMOGLOBIN 32.2 pg (25.0-35.0); MEAN CORPUSCULAR HGB CONC 32.2 g/dl (31.0-37.0); MEAN PLATELET VOLUME 9.4 fl (7.0-11.0); MONO # 0.8 (0.1-0.6); MONO % 5.5 % (1.0-6.0); RED CELL DISTRIBUTION WIDTH 14.7 % (11.5-14.5); WHITE BLOOD COUNT 13.7 10^3/ul (4.5-11.0)
[2017-04-07] MEDS: Albuterol-Ipratrop 3 mg / 0.5 (3 ml) UD IH SCH ×3 (08:13→19:32)
[2017-04-07 08:16] LABS: ALB/GLOB RATIO 1.2 (1.1-1.8); ALKALINE PHOSPHATASE 61 U/L (38-126); ALT/SGPT 87 U/L (7-56); AST/SGOT 37 U/L (14-36); BILIRUBIN,TOTAL 0.4 mg/dL (0.2-1.3); BLOOD UREA NITROGEN 9 mg/dL (7-21); CALCIUM 8.3 mg/dL (8.4-10.5); CARBON DIOXIDE 33 mmol/L (21-33); CHLORIDE 101 mmol/L (98-107); GFR AFRICAN-AMERICAN > 60; GLUCOSE,RANDOM 139 mg/dL (70-110); MAGNESIUM 1.6 mg/dL (1.7-2.2); PHOSPHOROUS 4.8 mg/dL (2.5-4.5); POTASSIUM 3.9 mmol/L (3.6-5.0); SODIUM 139 mmol/L (132-148); TOTAL PROTEIN 5.5 g/dL (5.8-8.3)
[2017-04-07] MEDS ORDERED: Magnesium Sulfate 1 gm in D5W 1 GM/100 ML BAG IVPB ONE (08:22)
[2017-04-07] MEDS: MethylPREDNISolone 40 mg Vial IVP SCH ×2 (09:36→22:27)
[2017-04-07] MEDS: Multivitamin With Minerals Tab PO SCH (09:36)
[2017-04-07] MEDS: Sodium Chloride 0.9% 1,000 ML IV SCH (09:38)
--- NOTE | 2017-04-07 09:57 | CP.PCM.PN ---
<Darron Marsh - Last Filed: 04/07/17 14:10> Subjective - Date & Time of Evaluation Date of Evaluation: 04/07/17 Time of Evaluation: 09:54 - Subjective Subjective: Patient has been seen and examined. No overnight events reported. Patient states that her breathing has been "up and down". She still reports cough which she feels hasn't improved. She denies any fevers, chest pain, abdominal pain, n/v, or constipation. She does report diarrhea. She states she had 2 soft bowel movement overnight. Objective - Vital Signs/Intake and Output Vital Signs (last 24 hours): Temp Pulse Resp BP Pulse Ox 98.4 F 74 24 153/103 H 100 04/07/17 09:27 04/07/17 09:27 04/07/17 09:27 04/07/17 09:27 04/07/17 09:27 Intake and Output: 04/07/17 04/07/17 06:59 18:59 Intake Total 3420 Balance 3420 - Medications Medications: Current Medications Albuterol/Ipratropium (Duoneb 3 Mg/0.5 Mg (3 Ml) Ud) 3 ml IH Q2H PRN PRN Reason: Shortness of Breath Last Admin: 04/06/17 05:10 Dose: 3 ml Albuterol/Ipratropium (Duoneb 3 Mg/0.5 Mg (3 Ml) Ud) 3 ml IH [id number] [facility] Last Admin: 04/07/17 08:13 Dose: 3 ml Cyanocobalamin (Vitamin B12 100 Mcg Tab) 100 mcg PO DAILY [facility] Last Admin: 04/06/17 18:54 Dose: 100 mcg Folic Acid (Folic Acid) 1 mg PO DAILY [facility] Last Admin: 04/06/17 15:20 Dose: 1 mg Heparin Sodium (Porcine) (Heparin) 5,000 units SC Q8 [facility] PRN Reason: Protocol Last Admin: 04/07/17 06:08 Dose: 5,000 units Sodium Chloride (Sodium Chloride 0.9%) 1,000 mls @ 100 mls/hr IV .Q10H [facility] Last Admin: 04/06/17 23:41 Dose: 100 mls/hr Piperacillin Sod/Tazobactam Sod (Zosyn 3.375 In Ns 100ml) 100 mls @ 200 mls/hr IVPB Q6 [facility] PRN Reason: Protocol Stop: 04/13/17 18:01 Last Admin: 04/07/17 06:07 Dose: 200 mls/hr Lorazepam (Ativan) 1 mg PO Q6 [facility] PRN Reason: Protocol Last Admin: 04/07/17 06:08 Dose: 1 mg Lorazepam (Ativan) 1 mg IVP Q6H PRN; Protocol PRN Reason: Withdrawal Methylprednisolone (Solu-Medrol) 30 mg IVP Q12 [facility] Last Admin: 04/06/17 21:55 Dose: 30 mg Montelukast Sodium (Singulair) 10 mg PO HS [facility] Last Admin: 04/06/17 21:54 Dose: 10 mg Multivitamins/Minerals (Therapeutic-M Tab) 1 tab PO 0800 [facility] Ondansetron HCl (Zofran Inj) 4 mg IVP Q6H PRN PRN Reason: Nausea/Vomiting Trazodone HCl (Desyrel) 50 mg PO [facility] Last Admin: 04/06/17 21:54 Dose: 50 mg - Labs Labs: 04/07/17 07:30 04/07/17 07:30 PT 10.8 SECONDS (9.4-12.5) 04/03/17 19:30 INR 0.99 (0.93-1.08) 04/03/17 19:30 APTT 24.6 Seconds (25.1-36.5) L 04/03/17 19:30 - Head Exam Head Exam: ATRAUMATIC, NORMAL INSPECTION, NORMOCEPHALIC Additional comments: Hirsutism - Eye Exam Eye Exam: Normal appearance - ENT Exam ENT Exam: Mucous Membranes Moist - Neck Exam Neck Exam: Normal Inspection - Respiratory Exam Respiratory Exam: Wheezes (Diffuse B/L, (No improvement) ). absent: Clear to Ausculation Bilateral, Rales, Rhonchi, Stridor - Cardiovascular Exam Cardiovascular Exam: RRR, +S1, +S2 - GI/Abdominal Exam GI & Abdominal Exam: Soft, Hernia (Umbilical (small)), Normal Bowel Sounds, Organomegaly (Hepatomegaly). absent: Firm, Guarding, Rigid, Tenderness - Extremities Exam Extremities Exam: Normal Capillary Refill. absent: Pedal Edema - Neurological Exam Neurological Exam: Alert, Awake, Oriented x3 - Psychiatric Exam Psychiatric exam: Normal Affect, Normal Mood - Skin Skin Exam: Dry, Intact, Normal Color, Warm Assessment and Plan - Assessment and Plan (Free Text) Assessment: 46 yo F with PMH of COPD/Asthma, tobacco abuse, alcohol abuse, polysubstance abuse, IVDU presents complaining of acute onset shortness of breath and mild abdominal pain. In the ER, code SEPSIS was called, and patient received 2L of LR as a bolus and IV Abx (Vanc and Zosyn). She also received IV steroids and Duonebs and was placed on BIPAP, with subsequent improvement in respiratory status. Plan: 1. Dyspnea 2/2 COPD Exacerbation vs Asthma Exacerbation vs CAP * CXR (04/03): No active disease * Solu medrol 30 mg IV Q12 * Duonebs Q6 jack and Q2 PRN * Zosyn * Lactate (downtrending) 2.8 on 04/04/17 Cough * Robitussin PRN Added 2. Abdominal pain 2/2 Ileus (Resolved) * Altered GI/Hepatic Diet * Continue IVF hydration (banana bag then NS) * Zofran 4mg IV Q6 PRN for nausea * Serial abdominal exams; continue to monitor * Requested surgical consult; appreciate recs * Diet advanced to Altered GI/Hepatic Diet. 3. Alcohol abuse * Presents with elevated EtOH level; tremor decreased * NS 100mls/hr. B12/Folate/Multivitamins * CIWA protocol * Ativan 1mg IV Q4h PRN|Ativan 1mg PO Q6 [facility]. * Fall/Seizure precautions 4. Leukocytosis (Improving) * Likely 2/2 acute illness vs chronic steroid use * Afebrile today * Blood cultures: NEGATIVE x 48 * Urine Cultures: NEGATIVE * Continue IV Abx (Zosyn Day 4). Follow up with ID if we can decrease Zosyn dose. 5. Hypokalemia/Hypomagnesemia * monitor with morning labs * Mg repleted this morning 6. Transaminitis (Improving) * Likely secondary to hep C and chronic alcoholism; had diagnosis of cholelithiasis without obstruction at last visit * monitor 7. History of depression/Insomnia * Continue Trazadone 50 HS GI/DVT Ppx - Protonix IV, and Heparin Patient seen, discussed, and reviewed with attending Darron Marsh - PGY1 <Karolina Watson - Last Filed: 04/07/17 16:30> Objective - Vital Signs/Intake and Output Vital Signs (last 24 hours): Temp Pulse Resp BP Pulse Ox 98.4 F 74 24 153/103 H 100 04/07/17 09:27 04/07/17 09:27 04/07/17 09:27 04/07/17 09:27 04/07/17 10:00 Intake and Output: 04/07/17 04/07/17 06:59 18:59 Intake Total 3420 480 Balance 3420 480 - Medications Medications: Current Medications Albuterol/Ipratropium (Duoneb 3 Mg/0.5 Mg (3 Ml) Ud) 3 ml IH Q2H PRN PRN Reason: Shortness of Breath Last Admin: 04/06/17 05:10 Dose: 3 ml Albuterol/Ipratropium (Duoneb 3 Mg/0.5 Mg (3 Ml) Ud) 3 ml IH [id number] [facility] Last Admin: 04/07/17 13:22 Dose: 3 ml Cyanocobalamin (Vitamin B12 100 Mcg Tab) 100 mcg PO DAILY [facility] Last Admin: 04/07/17 09:37 Dose: 100 mcg Folic Acid (Folic Acid) 1 mg PO DAILY [facility] Last Admin: 04/07/17 09:37 Dose: 1 mg Guaifenesin (Robitussin) 200 mg PO Q4H PRN PRN Reason: Cough and congestion Last Admin: 04/07/17 14:22 Dose: 200 mg Heparin Sodium (Porcine) (Heparin) 5,000 units SC Q8 [facility] PRN Reason: Protocol Last Admin: 04/07/17 14:22 Dose: 5,000 units Sodium Chloride (Sodium Chloride 0.9%) 1,000 mls @ 100 mls/hr IV .Q10H [facility] Last Admin: 04/07/17 09:38 Dose: 100 mls/hr Piperacillin Sod/Tazobactam Sod (Zosyn 3.375 In Ns 100ml) 100 mls @ 200 mls/hr IVPB Q6 [facility] PRN Reason: Protocol Stop: 04/13/17 18:01 Last Admin: 04/07/17 12:17 Dose: 200 mls/hr Lorazepam (Ativan) 1 mg PO Q6 [facility] PRN Reason: Protocol Last Admin: 04/07/17 12:14 Dose: 1 mg Lorazepam (Ativan) 1 mg IVP Q6H PRN; Protocol PRN Reason: Withdrawal Last Admin: 04/07/17 09:48 Dose: 1 mg Methylprednisolone (Solu-Medrol) 30 mg IVP Q12 [facility] Last Admin: 04/07/17 09:36 Dose: 30 mg Montelukast Sodium (Singulair) 10 mg PO HS [facility] Last Admin: 04/06/17 21:54 Dose: 10 mg Multivitamins/Minerals (Therapeutic-M Tab) 1 tab PO 0800 [facility] Last Admin: 04/07/17 09:36 Dose: 1 tab Ondansetron HCl (Zofran Inj) 4 mg IVP Q6H PRN PRN Reason: Nausea/Vomiting Trazodone HCl (Desyrel) 50 mg PO HS [facility] Last Admin: 04/06/17 21:54 Dose: 50 mg - Labs Labs: 04/07/17 07:30 04/07/17 07:30 PT 10.8 SECONDS (9.4-12.5) 04/03/17 19:30 INR 0.99 (0.93-1.08) 04/03/17 19:30 APTT 24.6 Seconds (25.1-36.5) L 04/03/17 19:30 Attending/Attestation - Attestation I have personally seen and examined this patient.: Yes I have fully participated in the care of the patient.: Yes I have reviewed all pertinent clinical information, including history, physical exam and plan: Yes Notes (Text): 04/07/17 16:27 46 year old female with past medical history of asthma/COPD, chronic ETOH abuse , and substance abuse who presented with fever, abdominal pain, constipation and shortness of breath. Her abdominal symptoms have improved. She is tolerating diet. She is on iv steroids for asthma and ativan for alcohol withdrawal. Issue of medication compliance, alcohol abstinence and smoking cessation was discussed with patient. Leukocytosis likely secondary to iv steroids however will rule out CDif diarrhea if she is having loose stools. She still reports diarrhea which is improving. She has not yet provided stool for CDif study which was re- enforced. Continue with antibiotics as per ID. Continue to monitor LFTs. Karolina Watson MD Hospitalist.
[2017-04-07] MEDS: guaiFENesin 200 mg/10 ml Syrup UD PO PRN (14:22)
--- NOTE | 2017-04-07 23:37 | PN ---
DATE: 04/07/2017 SUBJECTIVE: The patient is seen early this morning in 576, bed 2. The patient is doing better, less short of breath, and no fever. PHYSICAL EXAMINATION: VITAL SIGNS: Temperature is 98, blood pressure is 150/100, respiratory rate is 24, and heart rate is 74. HEENT: Unremarkable. NECK: Supple. LUNGS: Has decreased breath sounds. HEART: Normal S1 and S2. ABDOMEN: Soft. LABORATORY DATA: Reveals white count of 13,700, hemoglobin of 11, and platelets of 278. Chemistry reveals a BUN of 9 and creatinine 0.6. Procalcitonin of 0.9. Microbiology reveals blood cultures are negative. Urine cultures are negative. The patient had a chest x-ray, which was reported to be negative. ASSESSMENT AND PLAN: A 46-year-old female seen earlier this morning in 576, bed 2 with recent hospitalization, history of chronic obstructive lung disease, asthma, polysubstance abuse, hepatitis C, history of pneumothorax, hyperlipidemia, history of chest tube placement, tonsillectomy, admitted to the hospital with sepsis secondary to enteritis, healthcare-associated pneumonia, normal procalcitonin, and negative cultures, on Zosyn. We will check on her stool cultures. The patient appears to be improving. Margarito Robert MD
[2017-04-08] MEDS: Piperacillin/Tazobact 3.375 gm 100 ML IVPB SCH ×2 (00:24→06:05)
[2017-04-08] MEDS: Albuterol-Ipratrop 3 mg / 0.5 (3 ml) UD IH SCH ×4 (01:18→20:36)
[2017-04-08 08:02] LABS: BASO # 0.03 K/mm3 (0.0-2.0); BASO % 0.2 % (0.0-3.0); EOS % 0.1 % (1.5-5.0); GRAN # 11.68 (1.4-6.5); GRAN % 85.1 % (50.0-68.0); HEMATOCRIT 38.2 % (36.0-48.0); LYMPH # 1.4 (1.2-3.4); LYMPH % 10.2 % (22.0-35.0); MEAN CELL VOLUME 99.2 fl (80.0-105.0); MEAN CORPUSCULAR HEMOGLOBIN 31.9 pg (25.0-35.0); MEAN CORPUSCULAR HGB CONC 32.2 g/dl (31.0-37.0); MEAN PLATELET VOLUME 9.6 fl (7.0-11.0); MONO # 0.6 (0.1-0.6); MONO % 4.4 % (1.0-6.0); RED CELL DISTRIBUTION WIDTH 14.7 % (11.5-14.5); WHITE BLOOD COUNT 13.7 10^3/ul (4.5-11.0)
[2017-04-08 08:15] LABS: ALB/GLOB RATIO 1.1 (1.1-1.8); ALKALINE PHOSPHATASE 60 U/L (38-126); ALT/SGPT 83 U/L (7-56); AST/SGOT 38 U/L (14-36); BILIRUBIN,TOTAL 0.5 mg/dL (0.2-1.3); BLOOD UREA NITROGEN 10 mg/dL (7-21); CALCIUM 8.3 mg/dL (8.4-10.5); CARBON DIOXIDE 32 mmol/L (21-33); CHLORIDE 99 mmol/L (98-107); GFR AFRICAN-AMERICAN > 60; GLUCOSE,RANDOM 131 mg/dL (70-110); MAGNESIUM 1.9 mg/dL (1.7-2.2); PHOSPHOROUS 4.9 mg/dL (2.5-4.5); POTASSIUM 4.1 mmol/L (3.6-5.0); SODIUM 138 mmol/L (132-148)
[2017-04-08] MEDS: Multivitamin With Minerals Tab PO SCH (09:38)
[2017-04-08] MEDS: MethylPREDNISolone 40 mg Vial IVP SCH ×2 (09:38→21:36)
[2017-04-08] MEDS: Sodium Chloride 0.9% 1,000 ML IV SCH ×2 (09:40→13:44)
[2017-04-08] MEDS: guaiFENesin 200 mg/10 ml Syrup UD PO PRN (09:42)
--- NOTE | 2017-04-08 13:20 | CP.PCM.PN ---
<Constance Michael - Last Filed: 04/08/17 13:33> Subjective - Date & Time of Evaluation Date of Evaluation: 04/08/17 Time of Evaluation: 13:16 - Subjective Subjective: Constance Michael, PGY1, Medicine Progress Note for Dr Watson: Patient seen and examined at bedside. No acute overnight events. Report mild wheezing and cough, improved since admission. She denies any fevers, chest pain , abdominal pain, n/v. Reports that her diarrhea has now resolved. Objective - Vital Signs/Intake and Output Vital Signs (last 24 hours): Temp Pulse Resp BP Pulse Ox 98.4 F 87 18 145/98 H 97 04/08/17 07:30 04/08/17 07:30 04/08/17 07:30 04/08/17 07:30 04/08/17 07:30 Intake and Output: 04/08/17 04/08/17 06:59 18:59 Intake Total 2820 420 Output Total 4 Balance 2820 416 - Medications Medications: Current Medications Albuterol/Ipratropium (Duoneb 3 Mg/0.5 Mg (3 Ml) Ud) 3 ml IH Q2H PRN PRN Reason: Shortness of Breath Last Admin: 04/06/17 05:10 Dose: 3 ml Albuterol/Ipratropium (Duoneb 3 Mg/0.5 Mg (3 Ml) Ud) 3 ml IH [id number] [facility] Last Admin: 04/08/17 09:40 Dose: 3 ml Cyanocobalamin (Vitamin B12 100 Mcg Tab) 100 mcg PO DAILY [facility] Last Admin: 04/08/17 09:38 Dose: 100 mcg Folic Acid (Folic Acid) 1 mg PO DAILY [facility] Last Admin: 04/08/17 09:38 Dose: 1 mg Guaifenesin (Robitussin) 200 mg PO Q4H PRN PRN Reason: Cough and congestion Last Admin: 04/08/17 09:42 Dose: 200 mg Heparin Sodium (Porcine) (Heparin) 5,000 units SC Q8 [facility] PRN Reason: Protocol Last Admin: 04/08/17 06:06 Dose: 5,000 units Sodium Chloride (Sodium Chloride 0.9%) 1,000 mls @ 100 mls/hr IV .Q10H [facility] Last Admin: 04/08/17 09:40 Dose: 100 mls/hr Lorazepam (Ativan) 1 mg IVP Q6H PRN; Protocol PRN Reason: Withdrawal Last Admin: 04/07/17 09:48 Dose: 1 mg Lorazepam (Ativan) 0.5 mg IVP Q6H PRN; Protocol PRN Reason: Anxiety Methylprednisolone (Solu-Medrol) 20 mg IVP Q12 [facility] Montelukast Sodium (Singulair) 10 mg PO HS [facility] Last Admin: 04/07/17 22:27 Dose: 10 mg Multivitamins/Minerals (Therapeutic-M Tab) 1 tab PO 0800 [facility] Last Admin: 04/08/17 09:38 Dose: 1 tab Ondansetron HCl (Zofran Inj) 4 mg IVP Q6H PRN PRN Reason: Nausea/Vomiting Trazodone HCl (Desyrel) 50 mg PO HS [facility] Last Admin: 04/07/17 22:27 Dose: 50 mg - Labs Labs: 04/08/17 07:30 04/08/17 07:30 PT 10.8 SECONDS (9.4-12.5) 04/03/17 19:30 INR 0.99 (0.93-1.08) 04/03/17 19:30 APTT 24.6 Seconds (25.1-36.5) L 04/03/17 19:30 - Additional Findings Additional findings: - Head Exam Head Exam: ATRAUMATIC, NORMAL INSPECTION, NORMOCEPHALIC Additional comments: Hirsutism - Eye Exam Eye Exam: Normal appearance - ENT Exam ENT Exam: Mucous Membranes Moist - Neck Exam Neck Exam: Normal Inspection - Respiratory Exam Respiratory Exam: Mild wheezing, more in RLL. absent: Rales, Rhonchi, Stridor - Cardiovascular Exam Cardiovascular Exam: RRR, +S1, +S2 - GI/Abdominal Exam GI & Abdominal Exam: Soft, Hernia (Umbilical (small)), Normal Bowel Sounds, Organomegaly (Hepatomegaly). absent: Firm, Guarding, Rigid, Tenderness - Extremities Exam Extremities Exam: Normal Capillary Refill. absent: Pedal Edema - Neurological Exam Neurological Exam: Alert, Awake, Oriented x3 - Psychiatric Exam Psychiatric exam: Normal Affect, Normal Mood - Skin Skin Exam: Dry, Intact, Normal Color, Warm Assessment and Plan - Assessment and Plan (Free Text) Assessment: 46 yo F with PMH of COPD/Asthma, tobacco abuse, alcohol abuse, polysubstance abuse, IVDU presents complaining of acute onset shortness of breath and mild abdominal pain. In the ER, code SEPSIS was called, and patient received 2L of LR as a bolus and IV Abx (Vanc and Zosyn). She also received IV steroids and Duonebs and was placed on BIPAP, with subsequent improvement in respiratory status. Plan: 1. Dyspnea 2/2 COPD Exacerbation vs Asthma Exacerbation vs CAP * Improved wheezing on lung exam today * CXR (04/03): No active disease * Tapered Solumedrol to 20 mg IV q 12h. * Duonebs Q6 craig and Q2 PRN * Discontinued Zosyn as per ID. * Lactate (downtrending) 2.8 on 04/04/17 Cough * Robitussin PRN Added 2. Abdominal pain 2/2 Ileus (Resolved) * Altered GI/Hepatic Diet * Continue IVF hydration (banana bag then NS) * Zofran 4mg IV Q6 PRN for nausea * Serial abdominal exams; continue to monitor * Requested surgical consult; appreciate recs * Diet advanced to Altered GI/Hepatic Diet. 3. Alcohol abuse * Presents with elevated EtOH level; tremor decreased * NS 100mls/hr. B12/Folate/Multivitamins * CIWA protocol * Tapered Ativan to 0.5 mg IV Q6 PRN. Monitor withdrawal symptoms. * Fall/Seizure precautions * OOB to chair. Pt walking to the bathroom. 4. Leukocytosis (Improving) * Likely 2/2 acute illness vs chronic steroid use * Afebrile today * Blood cultures: NEGATIVE x 48 * Urine Cultures: NEGATIVE * Discontinued IV Zosyn after D5 per ID. 5. Hypokalemia/Hypomagnesemia * monitor with morning labs * Mg repleted this morning 6. Transaminitis (Improving) * Likely secondary to hep C and chronic alcoholism; had diagnosis of cholelithiasis without obstruction at last visit * monitor 7. History of depression/Insomnia * Continue Trazadone 50 HS GI/DVT Ppx - Protonix IV, and Heparin Patient seen, discussed, and reviewed with attending Constance Michael, PGY1 <Karolina Watson - Last Filed: 04/08/17 14:35> Objective - Vital Signs/Intake and Output Vital Signs (last 24 hours): Temp Pulse Resp BP Pulse Ox 98.4 F 87 18 145/98 H 97 04/08/17 07:30 04/08/17 07:30 04/08/17 07:30 04/08/17 07:30 04/08/17 07:30 Intake and Output: 04/08/17 04/08/17 06:59 18:59 Intake Total 2820 420 Output Total 4 Balance 2820 416 - Medications Medications: Current Medications Albuterol/Ipratropium (Duoneb 3 Mg/0.5 Mg (3 Ml) Ud) 3 ml IH Q2H PRN PRN Reason: Shortness of Breath Last Admin: 04/06/17 05:10 Dose: 3 ml Albuterol/Ipratropium (Duoneb 3 Mg/0.5 Mg (3 Ml) Ud) 3 ml IH [id number] [facility] Last Admin: 04/08/17 13:53 Dose: 3 ml Cyanocobalamin (Vitamin B12 100 Mcg Tab) 100 mcg PO DAILY [facility] Last Admin: 04/08/17 09:38 Dose: 100 mcg Folic Acid (Folic Acid) 1 mg PO DAILY [facility] Last Admin: 04/08/17 09:38 Dose: 1 mg Guaifenesin (Robitussin) 200 mg PO Q4H PRN PRN Reason: Cough and congestion Last Admin: 04/08/17 09:42 Dose: 200 mg Heparin Sodium (Porcine) (Heparin) 5,000 units SC Q8 [facility] PRN Reason: Protocol Last Admin: 04/08/17 13:44 Dose: 5,000 units Sodium Chloride (Sodium Chloride 0.9%) 1,000 mls @ 100 mls/hr IV .Q10H [facility] Last Admin: 04/08/17 13:44 Dose: Not Given Lorazepam (Ativan) 1 mg IVP Q6H PRN; Protocol PRN Reason: Withdrawal Last Admin: 04/07/17 09:48 Dose: 1 mg Lorazepam (Ativan) 0.5 mg IVP Q6H PRN; Protocol PRN Reason: Anxiety Methylprednisolone (Solu-Medrol) 20 mg IVP Q12 [facility] Montelukast Sodium (Singulair) 10 mg PO HS [facility] Last Admin: 04/07/17 22:27 Dose: 10 mg Multivitamins/Minerals (Therapeutic-M Tab) 1 tab PO 0800 [facility] Last Admin: 04/08/17 09:38 Dose: 1 tab Ondansetron HCl (Zofran Inj) 4 mg IVP Q6H PRN PRN Reason: Nausea/Vomiting Trazodone HCl (Desyrel) 50 mg PO HS [facility] Last Admin: 04/07/17 22:27 Dose: 50 mg - Labs Labs: 04/08/17 07:30 04/08/17 07:30 PT 10.8 SECONDS (9.4-12.5) 04/03/17 19:30 INR 0.99 (0.93-1.08) 04/03/17 19:30 APTT 24.6 Seconds (25.1-36.5) L 04/03/17 19:30 Attending/Attestation - Attestation I have personally seen and examined this patient.: Yes I have fully participated in the care of the patient.: Yes I have reviewed all pertinent clinical information, including history, physical exam and plan: Yes Notes (Text): 04/08/17 14:33 46 year old female with past medical history of asthma/COPD, chronic ETOH abuse , and substance abuse who presented with fever, abdominal pain, constipation and shortness of breath. Her abdominal symptoms including diarrhea have resolved. She is tolerating diet. She is on iv steroids for asthma and ativan for alcohol withdrawal. Symptoms are improving. Will continue to taper her iv steroids and ativan. Out of bed to chair is ordered. Issue of medication compliance, alcohol abstinence and smoking cessation was discussed with patient. Continue to monitor LFTs. Leukocytosis likely secondary to iv steroids. Agree with discontinuing antibiotics. Karolina Watson MD Hospitalist.
--- NOTE | 2017-04-08 17:59 | PN ---
DATE: 04/08/2017 SUBJECTIVE: The patient seen earlier today. No fevers. No chills. No nausea. She is doing well. PHYSICAL EXAMINATION: VITAL SIGNS: Temperature is 98, blood pressure is 140/70, respiratory rate 16. HEENT: Unremarkable. NECK: Supple. LUNGS: Have decreased breath sounds. HEART: Normal S1, S2. ABDOMEN: Soft. LABORATORY EXAMINATION: Reveals the patient has white count of 13,700, hemoglobin of 12. Chemistries reveal a BUN of 10, creatinine 0.5, procalcitonin 0.09. Urinalysis is noted. Microbiology reveals the blood cultures are negative, urine cultures are negative. ASSESSMENT AND PLAN: This is a 46-year-old female with recent hospitalization, chronic obstructive lung disease, asthma, polysubstance abuse, hepatitis C, history of pneumothorax, hyperlipidemia, history of chest tube placement, tonsillectomy with sepsis secondary to enteritis, healthcare-associated pneumonia, normal procalcitonin, negative cultures. We will discontinue Zosyn. No further antibiotics at this point. Margarito Robert MD
[2017-04-09] MEDS: Albuterol-Ipratrop 3 mg / 0.5 (3 ml) UD IH SCH ×4 (02:45→20:10)
[2017-04-09] MEDS: Sodium Chloride 0.9% 1,000 ML IV SCH ×2 (03:11→10:04)
[2017-04-09 07:37] LABS: BASO # 0.03 K/mm3 (0.0-2.0); BASO % 0.2 % (0.0-3.0); EOS % 0.2 % (1.5-5.0); GRAN # 13.35 (1.4-6.5); GRAN % 82.4 % (50.0-68.0); HEMATOCRIT 38.8 % (36.0-48.0); LYMPH # 1.9 (1.2-3.4); LYMPH % 11.5 % (22.0-35.0); MEAN CORPUSCULAR HEMOGLOBIN 31.7 pg (25.0-35.0); MEAN CORPUSCULAR HGB CONC 31.7 g/dl (31.0-37.0); MEAN PLATELET VOLUME 9.8 fl (7.0-11.0); MONO # 0.9 (0.1-0.6); MONO % 5.7 % (1.0-6.0); RED CELL DISTRIBUTION WIDTH 14.7 % (11.5-14.5); WHITE BLOOD COUNT 16.2 10^3/ul (4.5-11.0)
[2017-04-09 08:00] LABS: ALB/GLOB RATIO 1.1 (1.1-1.8); ALKALINE PHOSPHATASE 61 U/L (38-126); ALT/SGPT 76 U/L (7-56); AST/SGOT 38 U/L (14-36); BILIRUBIN,TOTAL 0.4 mg/dL (0.2-1.3); BLOOD UREA NITROGEN 12 mg/dL (7-21); CALCIUM 8.5 mg/dL (8.4-10.5); CARBON DIOXIDE 35 mmol/L (21-33); CHLORIDE 100 mmol/L (98-107); GFR AFRICAN-AMERICAN > 60; GLUCOSE,RANDOM 135 mg/dL (70-110); PHOSPHOROUS 4.4 mg/dL (2.5-4.5); POTASSIUM 4.4 mmol/L (3.6-5.0); SODIUM 137 mmol/L (132-148); TOTAL PROTEIN 5.8 g/dL (5.8-8.3)
[2017-04-09] MEDS: MethylPREDNISolone 40 mg Vial IVP SCH ×2 (09:57→21:32)
[2017-04-09] MEDS: guaiFENesin 200 mg/10 ml Syrup UD PO PRN ×2 (09:58→20:11)
[2017-04-09] MEDS: Multivitamin With Minerals Tab PO SCH (09:58)
--- NOTE | 2017-04-09 12:35 | CP.PCM.PN ---
<Constance Michael - Last Filed: 04/09/17 12:59> Subjective - Date & Time of Evaluation Date of Evaluation: 04/09/17 Time of Evaluation: 12:19 - Subjective Subjective: Constance Michael, PGY1, Medicine Progress Note for Dr Watson: Patient seen and examined at bedside. No acute events overnight. As per nursing staff, patient is requiring her prn Ativan 0.5 mg IV q6h as per CIWA score is 6- 7. This AM, patient has moist palms, anxiety, headache, mild tremor. Denies visual/auditory hallucinations, numbness/tingling, fever, chills, nausea, vomiting, diarrhea. Pt states that she had 1 formed BM yesterday. States that her chronic smoker's cough is present and has mild wheezing, but improved since admission. Objective - Vital Signs/Intake and Output Vital Signs (last 24 hours): Temp Pulse Resp BP Pulse Ox 97.5 F L 86 20 149/98 H 98 04/09/17 07:30 04/09/17 07:30 04/09/17 07:30 04/09/17 07:30 04/09/17 07:30 Intake and Output: 04/09/17 04/09/17 06:59 18:59 Intake Total 500 1300 Balance 500 1300 - Medications Medications: Current Medications Albuterol/Ipratropium (Duoneb 3 Mg/0.5 Mg (3 Ml) Ud) 3 ml IH Q2H PRN PRN Reason: Shortness of Breath Last Admin: 04/06/17 05:10 Dose: 3 ml Albuterol/Ipratropium (Duoneb 3 Mg/0.5 Mg (3 Ml) Ud) 3 ml IH [id number] [facility] Last Admin: 04/09/17 08:12 Dose: 3 ml Chlordiazepoxide (Librium) 5 mg PO Q8 [facility] PRN Reason: Protocol Cyanocobalamin (Vitamin B12 100 Mcg Tab) 100 mcg PO DAILY [facility] Last Admin: 04/09/17 09:58 Dose: 100 mcg Folic Acid (Folic Acid) 1 mg PO DAILY [facility] Last Admin: 04/09/17 09:58 Dose: 1 mg Guaifenesin (Robitussin) 200 mg PO Q4H PRN PRN Reason: Cough and congestion Last Admin: 04/09/17 09:58 Dose: 200 mg Heparin Sodium (Porcine) (Heparin) 5,000 units SC Q8 [facility] PRN Reason: Protocol Last Admin: 04/09/17 05:54 Dose: 5,000 units Sodium Chloride (Sodium Chloride 0.9%) 1,000 mls @ 100 mls/hr IV .Q10H [facility] Last Admin: 04/09/17 10:04 Dose: 100 mls/hr Lorazepam (Ativan) 0.5 mg IVP Q6H PRN; Protocol PRN Reason: Anxiety Last Admin: 04/09/17 09:57 Dose: 0.5 mg Methylprednisolone (Solu-Medrol) 20 mg IVP Q12 [facility] Last Admin: 04/09/17 09:57 Dose: 20 mg Montelukast Sodium (Singulair) 10 mg PO HS [facility] Last Admin: 04/08/17 21:37 Dose: 10 mg Multivitamins/Minerals (Therapeutic-M Tab) 1 tab PO 0800 [facility] Last Admin: 04/09/17 09:58 Dose: 1 tab Ondansetron HCl (Zofran Inj) 4 mg IVP Q6H PRN PRN Reason: Nausea/Vomiting Trazodone HCl (Desyrel) 50 mg PO [facility] Last Admin: 04/08/17 21:37 Dose: 50 mg - Labs Labs: 04/09/17 07:00 04/09/17 07:00 PT 10.8 SECONDS (9.4-12.5) 04/03/17 19:30 INR 0.99 (0.93-1.08) 04/03/17 19:30 APTT 24.6 Seconds (25.1-36.5) L 04/03/17 19:30 - Constitutional Appears: Non-toxic, Older Than Stated Age, Chronically Ill - Head Exam Head Exam: ATRAUMATIC, NORMOCEPHALIC Additional comments: + tongue fasciculations. - Eye Exam Eye Exam: EOMI, PERRL - ENT Exam ENT Exam: Mucous Membranes Moist - Neck Exam Neck Exam: Full ROM - Respiratory Exam Respiratory Exam: Wheezes (Mild wheezes, more on right upper lobe.). absent: Accessory Muscle Use, Rales, Rhonchi, Respiratory Distress - Cardiovascular Exam Cardiovascular Exam: RRR, +S1, +S2. absent: Murmur - GI/Abdominal Exam GI & Abdominal Exam: Soft, Normal Bowel Sounds. absent: Distended, Guarding, Tenderness, Mass, Organomegaly, Rebound - Extremities Exam Extremities Exam: absent: Calf Tenderness, Pedal Edema - Back Exam Back Exam: NORMAL INSPECTION - Neurological Exam Neurological Exam: Alert, Awake, Normal Gait, Oriented x3 Additional comments: + mild tremors on arm extension. - Psychiatric Exam Psychiatric exam: Anxious - Skin Skin Exam: Dry, Normal Color, Warm Assessment and Plan - Assessment and Plan (Free Text) Assessment: 46 yo F with PMH of COPD/Asthma, tobacco abuse, alcohol abuse, polysubstance abuse, IVDU, presents complaining of acute onset shortness of breath and mild abdominal pain. In the ER, code SEPSIS was called, and patient received 2L of LR as a bolus and IV Abx (Vanc and Zosyn). She also received IV steroids and Duonebs and was placed on BIPAP, with subsequent improvement in respiratory status. CXR showed no infiltrates. Currently, patient is s/p Zosyn Solumedrol 5 days, tapered down to 20 mg IV q 12h Plan: Dyspnea 2/2 COPD Exacerbation vs Asthma Exacerbation vs CAP * Improved wheezing on lung exam today * CXR (04/03): No active disease * Tapered Solumedrol to 20 mg IV q 12h. * Duonebs Q6 craig and Q2 PRN * Discontinued Zosyn as per ID. * Lactate (downtrending) 2.8 on 04/04/17 Cough * 2/2 chronic smoker's cough * Robitussin PRN Added * Advised patient to ask the nurse for the medication since its an as needed order. Abdominal pain 2/2 Ileus (Resolved) * Requested surgical consult on admission; appreciate recs. No invasive interventions. * CT abd pelvis showed mild enteritis, dilation of some small bowel loops ( improved compared to prior exams). Cholelithiasis. * Patient has abdominal pain/tenderness on exam, tolerating altered GI/Hepatic Diet well. Having regular, daily BMs. Alcohol abuse * Presents with elevated EtOH level * NS 100mls/hr. B12/Folate/Multivitamins * CIWA protocol, Score 7 today. * On Ativan to 0.5 mg IV Q6 PRN. * Added Ativan 1 mg PO q8h. * Fall/Seizure precautions * Pt walking to the bathroom. Encouraged patient to go OOB to chair. Leukocytosis * Likely 2/2 chronic steroid use * S/p 5 days IV Zosyn * Afebrile today * wbc trended up since yesterday 13.7->16.2 * CXR showed no infiltrates * Blood cultures: NTD * Urine Cultures: NEGATIVE * Cont to trend wbc Hypokalemia/Hypomagnesemia * monitor Transaminitis (Improving) * Likely secondary to hep C and chronic alcoholism; had diagnosis of cholelithiasis without obstruction at last visit * LFTs trending down * monitor History of depression/Insomnia * Continue Trazadone 50 HS GI/DVT Ppx - Protonix IV, and Heparin Patient seen, discussed, and reviewed with attending Constance Michael PGY1 <Karolina Watson - Last Filed: 04/09/17 14:11> Objective - Vital Signs/Intake and Output Vital Signs (last 24 hours): Temp Pulse Resp BP Pulse Ox 97.5 F L 86 20 149/98 H 98 04/09/17 07:30 04/09/17 07:30 04/09/17 07:30 04/09/17 07:30 04/09/17 07:30 Intake and Output: 04/09/17 04/09/17 06:59 18:59 Intake Total 500 1300 Balance 500 1300 - Medications Medications: Current Medications Albuterol/Ipratropium (Duoneb 3 Mg/0.5 Mg (3 Ml) Ud) 3 ml IH Q2H PRN PRN Reason: Shortness of Breath Last Admin: 04/06/17 05:10 Dose: 3 ml Albuterol/Ipratropium (Duoneb 3 Mg/0.5 Mg (3 Ml) Ud) 3 ml IH [id number] [facility] Last Admin: 04/09/17 13:26 Dose: 3 ml Chlordiazepoxide (Librium) 5 mg PO Q8 [facility] PRN Reason: Protocol Cyanocobalamin (Vitamin B12 100 Mcg Tab) 100 mcg PO DAILY [facility] Last Admin: 04/09/17 09:58 Dose: 100 mcg Folic Acid (Folic Acid) 1 mg PO DAILY [facility] Last Admin: 04/09/17 09:58 Dose: 1 mg Guaifenesin (Robitussin) 200 mg PO Q4H PRN PRN Reason: Cough and congestion Last Admin: 04/09/17 09:58 Dose: 200 mg Heparin Sodium (Porcine) (Heparin) 5,000 units SC Q8 [facility] PRN Reason: Protocol Last Admin: 04/09/17 05:54 Dose: 5,000 units Sodium Chloride (Sodium Chloride 0.9%) 1,000 mls @ 100 mls/hr IV .Q10H [facility] Last Admin: 04/09/17 10:04 Dose: 100 mls/hr Lorazepam (Ativan) 0.5 mg IVP Q6H PRN; Protocol PRN Reason: Anxiety Last Admin: 04/09/17 09:57 Dose: 0.5 mg Methylprednisolone (Solu-Medrol) 20 mg IVP Q12 [facility] Last Admin: 04/09/17 09:57 Dose: 20 mg Montelukast Sodium (Singulair) 10 mg PO HS [facility] Last Admin: 04/08/17 21:37 Dose: 10 mg Multivitamins/Minerals (Therapeutic-M Tab) 1 tab PO 0800 [facility] Last Admin: 04/09/17 09:58 Dose: 1 tab Ondansetron HCl (Zofran Inj) 4 mg IVP Q6H PRN PRN Reason: Nausea/Vomiting Trazodone HCl (Desyrel) 50 mg PO HS [facility] Last Admin: 04/08/17 21:37 Dose: 50 mg - Labs Labs: 04/09/17 07:00 04/09/17 07:00 PT 10.8 SECONDS (9.4-12.5) 04/03/17 19:30 INR 0.99 (0.93-1.08) 04/03/17 19:30 APTT 24.6 Seconds (25.1-36.5) L 04/03/17 19:30 Attending/Attestation - Attestation I have personally seen and examined this patient.: Yes I have fully participated in the care of the patient.: Yes I have reviewed all pertinent clinical information, including history, physical exam and plan: Yes Notes (Text): 04/09/17 13:57 46 year old female with past medical history of asthma/COPD, chronic ETOH abuse , and substance abuse who presented with fever, abdominal pain, constipation and shortness of breath. Her abdominal symptoms including diarrhea have resolved. She is tolerating diet. She is on iv steroids for asthma which is improving. She is also on ativan for alcohol withdrawal and started on librium also. Out of bed to chair is ordered. Issue of medication compliance, alcohol abstinence and smoking cessation was discussed with patient. Continue to monitor LFTs. Leukocytosis likely secondary to iv steroids. D/c planning in 24 -48 hrs is stable. Karolina Watson MD Hospitalist.
[2017-04-09 16:20] VITALS: TEMP 97.9
--- NOTE | 2017-04-09 18:48 | PN ---
DATE: 04/09/2017 SUBJECTIVE: The patient is in bed in no acute distress, nontoxic. The patient seen in 576, bed 2. PHYSICAL EXAMINATION: VITAL SIGNS: Temperature is 98, blood pressure is 120/70, respiratory rate of 16. HEENT: Examination of HEENT is unremarkable. NECK: Supple. LUNGS: Have decreased breath sounds. HEART: Normal S1, S2. ABDOMEN: Soft, nontender. LABORATORY EXAMINATION: Reveals a white count of 16,200, hemoglobin of 12, platelets of 300. BUN of 12, creatinine of 0.6. Procalcitonin is 0.09. Urinalysis is noted, and toxicology is noted. Microbiology reveals the blood cultures, urine cultures are negative. Review of orders reveals the patient to be on Solu-Medrol and off of antibiotics. ASSESSMENT/PLAN: A 46-year-old female who had a recent hospitalization, chronic obstructive lung disease, asthma, polysubstance abuse, hepatitis C, history of pneumothorax, hyperlipidemia, history of chest tube placement, tonsillectomy, sepsis secondary to enteritis, healthcare-associated pneumonia, normal procalcitonin, negative cultures, discontinued the Zosyn. Now off of antibiotics, afebrile. We will follow with you. Margarito Robert MD
[2017-04-10] MEDS: guaiFENesin 200 mg/10 ml Syrup UD PO PRN ×2 (05:38→11:44)
[2017-04-10 07:03] LABS: BASO # 0.01 K/mm3 (0.0-2.0); BASO % 0.1 % (0.0-3.0); EOS % 0.3 % (1.5-5.0); GRAN # 12.67 (1.4-6.5); HEMATOCRIT 37.5 % (36.0-48.0); LYMPH # 1.7 (1.2-3.4); LYMPH % 11.2 % (22.0-35.0); MEAN CELL VOLUME 100.3 fl (80.0-105.0); MEAN CORPUSCULAR HEMOGLOBIN 31.8 pg (25.0-35.0); MEAN CORPUSCULAR HGB CONC 31.7 g/dl (31.0-37.0); MONO % 6.4 % (1.0-6.0); RED CELL DISTRIBUTION WIDTH 14.8 % (11.5-14.5); WHITE BLOOD COUNT 15.4 10^3/ul (4.5-11.0)
[2017-04-10] MEDS: Sodium Chloride 0.9% 1,000 ML IV SCH (07:53)
[2017-04-10 08:25] VITALS: BP 124/95; PULSE 87; RESP 22; O2SAT 96
[2017-04-10] MEDS: Albuterol-Ipratrop 3 mg / 0.5 (3 ml) UD IH SCH ×2 (08:35→13:27)
[2017-04-10 08:44] LABS: ALKALINE PHOSPHATASE 62 U/L (38-126); ALT/SGPT 72 U/L (7-56); AST/SGOT 35 U/L (14-36); BILIRUBIN,TOTAL 0.4 mg/dL (0.2-1.3); BLOOD UREA NITROGEN 13 mg/dL (7-21); CALCIUM 8.3 mg/dL (8.4-10.5); CARBON DIOXIDE 28 mmol/L (21-33); CHLORIDE 100 mmol/L (98-107); GFR AFRICAN-AMERICAN > 60; GLUCOSE,RANDOM 161 mg/dL (70-110); MAGNESIUM 1.7 mg/dL (1.7-2.2); PHOSPHOROUS 4.4 mg/dL (2.5-4.5); POTASSIUM 4.2 mmol/L (3.6-5.0); SODIUM 136 mmol/L (132-148); TOTAL PROTEIN 5.7 g/dL (5.8-8.3)
[2017-04-10 08:59] LABS: ALB/GLOB RATIO 1.1 (1.1-1.8)
[2017-04-10] MEDS: MethylPREDNISolone 40 mg Vial IVP SCH (11:07)
[2017-04-10] MEDS: Multivitamin With Minerals Tab PO SCH (11:14)
--- NOTE | 2017-04-10 13:46 | CP.PCM.DIS ---
<Constance Michael - Last Filed: 04/10/17 16:54> Provider - Provider Date of Admission: 04/03/17 23:14 Attending physician: Soo Cardona MD Consults: Surg Cristian ID [place] Time Spent in preparation of Discharge (in minutes): 35 Diagnosis - Discharge Diagnosis (1) Constipation Status: Acute (2) Alcohol withdrawal Status: Chronic (3) COPD exacerbation Status: Chronic Hospital Course - Lab Results Lab Results: Most Recent Lab Values WBC 15.4 10^3/ul (4.5-11.0) H 04/10/17 06:45 RBC 3.74 10^6/uL (3.5-6.1) 04/10/17 06:45 Hgb 11.9 g/dL (12.0-16.0) L 04/10/17 06:45 Hct 37.5 % (36.0-48.0) 04/10/17 06:45 MCV 100.3 fl (80.0-105.0) 04/10/17 06:45 MCH 31.8 pg (25.0-35.0) 04/10/17 06:45 MCHC 31.7 g/dl (31.0-37.0) 04/10/17 06:45 RDW 14.8 % (11.5-14.5) H 04/10/17 06:45 Plt Count 297 10^3/uL (120.0-450.0) 04/10/17 06:45 MPV 10.0 fl (7.0-11.0) 04/10/17 06:45 Gran % 82.0 % (50.0-68.0) H 04/10/17 06:45 Lymph % (Auto) 11.2 % (22.0-35.0) L 04/10/17 06:45 Lasalle % (Auto) 6.4 % (1.0-6.0) H 04/10/17 06:45 Eos % (Auto) 0.3 % (1.5-5.0) L 04/10/17 06:45 Baso % (Auto) 0.1 % (0.0-3.0) 04/10/17 06:45 Gran # 12.67 (1.4-6.5) H 04/10/17 06:45 Lymph # 1.7 (1.2-3.4) 04/10/17 06:45 [place]alle # 1.0 (0.1-0.6) H 04/10/17 06:45 Eos # 0.0 (0.0-0.7) 04/10/17 06:45 Baso # 0.01 K/mm3 (0.0-2.0) 04/10/17 06:45 Neutrophils % (Manual) 91 % (50.0-70.0) H 04/04/17 06:00 Lymphocytes % (Manual) 6 % (22.0-35.0) L 04/04/17 06:00 Atypical Lymphs % 1 % (0.0-0.0) H 04/04/17 06:00 Monocytes % (Manual) 2 % (1.0-6.0) 04/04/17 06:00 Platelet Evaluation Normal (NORMAL) 04/04/17 06:00 Large Platelets Present 04/04/17 06:00 Giant Platelets Present 04/04/17 06:00 Anisocytosis (manual) Slight 04/04/17 06:00 PT 10.8 SECONDS (9.4-12.5) 04/03/17 19:30 INR 0.99 (0.93-1.08) 04/03/17 19:30 APTT 24.6 Seconds (25.1-36.5) L 04/03/17 19:30 pO2 120 mm/Hg (30-55) H 04/04/17 10:50 VBG pH 7.46 (7.32-7.43) H 04/04/17 10:50 VBG pCO2 47.0 (40-60) 04/04/17 10:50 VBG HCO3 33.4 mmol/l (21-28) H 04/04/17 10:50 VBG Total CO2 34.8 mmol.L (22-28) H 04/04/17 10:50 VBG O2 Sat (Calc) 99.4 % (40-65) H 04/04/17 10:50 VBG Base Excess 8.3 mmol/L (0.0-2.0) H 04/04/17 10:50 VBG Potassium 4.2 mmol/L (3.6-5.2) 04/04/17 10:50 Sodium 141.0 mmol/L (132-148) 04/04/17 10:50 Chloride 105.0 mmol/L (98-107) 04/04/17 10:50 Glucose 139 mg/dl (65-105) H 04/04/17 10:50 Lactate 2.8 mmol/L (0.7-2.1) H 04/04/17 10:50 FiO2 21.0 % 04/04/17 10:50 Sodium 136 mmol/L (132-148) 04/10/17 05:00 Potassium 4.2 mmol/L (3.6-5.0) 04/10/17 05:00 Chloride 100 mmol/L (98-107) 04/10/17 05:00 Carbon Dioxide 28 mmol/L (21-33) 04/10/17 05:00 Anion Gap 12 (10-20) 04/10/17 05:00 BUN 13 mg/dL (7-21) 04/10/17 05:00 Creatinine 0.6 mg/dl (0.7-1.2) L 04/10/17 05:00 Est GFR ( Amer) > 60 04/10/17 05:00 Est GFR (Non-Af Amer) > 60 04/10/17 05:00 Random Glucose 161 mg/dL (70-110) H 04/10/17 05:00 Calcium 8.3 mg/dL (8.4-10.5) L 04/10/17 05:00 Phosphorus 4.4 mg/dL (2.5-4.5) 04/10/17 05:00 Magnesium 1.7 mg/dL (1.7-2.2) 04/10/17 05:00 Total Bilirubin 0.4 mg/dL (0.2-1.3) 04/10/17 05:00 AST 35 U/L (14-36) 04/10/17 05:00 ALT 72 U/L (7-56) H 04/10/17 05:00 Alkaline Phosphatase 62 U/L (38-126) 04/10/17 05:00 NT-Pro-B Natriuret Pep 45 pg/mL (0-450) 04/03/17 19:33 Total Protein 5.7 g/dL (5.8-8.3) L 04/10/17 05:00 Albumin 3.0 g/dL (3.0-4.8) 04/10/17 05:00 Globulin 2.6 gm/dL 04/10/17 05:00 Albumin/Globulin Ratio 1.1 (1.1-1.8) 04/10/17 05:00 Lipase 75 U/L (23-300) 04/03/17 19:30 Procalcitonin 0.09 NG/ML (0.19-0.49) L 04/04/17 13:00 Beta HCG, Quant < 2.39 mIU/mL (0-6.15) 04/03/17 19:30 Venous Blood Potassium 4.2 mmol/L (3.6-5.2) 04/04/17 10:50 Urine Color Yellow (YELLOW) 04/03/17 21:04 Urine Appearance Clear (CLEAR) 04/03/17 21:04 Urine pH 6.0 (4.7-8.0) 04/03/17 21:04 Ur Specific Gazelle <= 1.005 (1.005-1.035) 04/03/17 21:04 Urine Protein Negative mg/dL (<30 mg/dL) 04/03/17 21:04 Urine Glucose (UA) Negative mg/dL (NEGATIVE) 04/03/17 21:04 Urine Ketones Negative mg/dL (NEGATIVE) 04/03/17 21:04 Urine Blood Negative (NEGATIVE) 04/03/17 21:04 Urine Nitrate Negative (NEGATIVE) 04/03/17 21:04 Urine Bilirubin Negative (NEGATIVE) 04/03/17 21:04 Urine Urobilinogen 0.2 E.U./dL (<1 E.U./dL) 04/03/17 21:04 Ur Leukocyte Esterase Negative Erik/uL (NEGATIVE) 04/03/17 21:04 Urine HCG, Qual Negative (NEGATIVE) 04/03/17 21:04 Urine Opiates Screen Negative (NEGATIVE) 04/07/17 13:00 Urine Methadone Screen Negative (NEGATIVE) 04/07/17 13:00 Ur Barbiturates Screen Negative (NEGATIVE) 04/07/17 13:00 Ur Phencyclidine Scrn Negative (NEGATIVE) 04/07/17 13:00 Ur Amphetamines Screen Negative (NEGATIVE) 04/07/17 13:00 U Benzodiazepines Scrn Negative (NEGATIVE) 04/07/17 13:00 U Oth Cocaine Metabols Negative (NEGATIVE) 04/07/17 13:00 U Cannabinoids Screen Negative (NEGATIVE) 04/07/17 13:00 Alcohol, Quantitative 162 mg/dL (0-10) H 04/03/17 19:30 - Hospital Course Hospital Course: 46 years old female with PMH of COPD, asthma, alcohol abuse, heroin abuse ( snort and inject), and hepatitis C with cirrhosis who presents to the ED complaining of shortness of breath that started earlier this afternoon. Patient was recently discharged after treatment for the same. She reports compliance with her medications, but that exposure to the cold weather 05/19 homelessness has caused her acute illness again. She endorses associated cough productive of yellow sputum, and wheezing. She denies chest pain. She also reports generalized abdominal pain and distension. She denies fever, chills, nausea, vomiting, diarrhea. She reports that her last BM was 2 days ago, and the last time she passed flatus was 1 day ago. She also endorses a long history of alcohol abuse, and that her last drink was several hours prior to presentation. She now feels jittery and warm, as if she is going through withdrawal. Ct abd pelvis was done to r/o SBO, just showed some dilated small bowel loops. Patient required Ativan thru the hospital course, as had high CIWA scores. Patient's abdominal pain resolved after 2 days of admission with good bowel regimen, and patient passing gas and having good BMs. She was treated with IV steroids, duonebs, singulair for her COPD exacerbation. Patient was once again advised to quit smoking and alcohol. Patient states that it is hard for her to quit and does not want any rehab currently. Her withdrawal was closely monitored with CIWA protocol, and treated adequately with Ativan, Librium. Pt is ready to be picked by her partner, and will go to her nearby fpc. She is given ventolin inhaler, advair, prednisone (in tapering doses) - explained thoroughly to patient, rotbituss for her chronic smoker's cough, Omeprazole, and a 5 day prescription for Trazadone. Discussed with Dr Cardona. Fernanda, PGY1 Discharge Exam - Additional Findings Additional findings: - Constitutional Appears: Non-toxic, Older Than Stated Age, Chronically Ill - Head Exam Head Exam: ATRAUMATIC, NORMOCEPHALIC - Eye Exam Eye Exam: EOMI, PERRL - ENT Exam ENT Exam: Mucous Membranes Moist - Neck Exam Neck Exam: Full ROM - Respiratory Exam Respiratory Exam: CTA absent: wheezing, Accessory Muscle Use, Rales, Rhonchi, Respiratory Distress - Cardiovascular Exam Cardiovascular Exam: RRR, +S1, +S2. absent: Murmur - GI/Abdominal Exam GI & Abdominal Exam: Soft, Normal Bowel Sounds. absent: Distended, Guarding, Tenderness, Mass, Organomegaly, Rebound - Extremities Exam Extremities Exam: absent: Calf Tenderness, Pedal Edema - Back Exam Back Exam: NORMAL INSPECTION - Neurological Exam Neurological Exam: Alert, Awake, Normal Gait, Oriented x3 - Psychiatric Exam Psychiatric exam: normal mood - Skin Skin Exam: Dry, Normal Color, Warm Discharge Plan - Discharge Medications Prescriptions: Albuterol HFA [Ventolin HFA 90 mcg/actuation (8 g)] 2 puff IH [id number] 30 Days puff Fluticasone/Salmeterol 250/50 [Advair Diskus 250/50] 1 puff IH Q12 30 Days #1 puff guaiFENesin/Dextromethorphan [Robitussin DM] 10 ml PO Q4H 15 Days #28 udc Omeprazole 40 mg PO DAILY 30 Days capsule. Prednisone [Deltasone] 20 mg PO DAILY 3 Days tablet Prednisone 10 mg PO DAILY 3 Days tab.ds.pk Prednisone 40 mg PO DAILY 2 Days tablet Prednisone [[place]] 5 mg PO DAILY 3 Days tablet. traZODone [Desyrel] 50 mg PO HS 5 Days tab - Follow Up Plan Condition: FAIR Disposition: HOME/ ROUTINE Patient education suggested?: Yes Instructions: Heart Failure (GEN), Asthma (DC), How to Stop Smoking (DC), Pneumococcal Vaccine for Adults (GEN), Low Fat Diet (GEN), Influenza Vaccine ( GEN), COPD (Chronic Obstructive Pulmonary Disease) (DC), Abuse of Alcohol (GEN) , Alcohol Withdrawal (DC), Fall Prevention (GEN) Additional Instructions: - You are given a Ventolin inhaler and Advair. Please take Omeprazole for your heartburn symptoms. - Discussed placement to a nearby fpc that patient goes to. Pt states she is going to [facility] after dinner at the hospital. - You were on steroids in the hospital, you are given prescriptions for tapering your steroids down at home: - Take Prednisone 40 mg for 2 days, then 20 mg for 3 days, then 10 mg for 3 days , and then 5 mg for 3 days. - Take Robitussin as needed for your chronic cough. - Advise alcohol and smoking cessation. - Please return to the ER if any concerns. Referrals: [facility], [Non-Staff] - <Soo Cardona - Last Filed: 04/10/17 17:35> Provider - Provider Date of Admission: 04/03/17 23:14 Attending physician: Soo Cardona MD Hospital Course - Lab Results Lab Results: Most Recent Lab Values WBC 15.4 10^3/ul (4.5-11.0) H 04/10/17 06:45 RBC 3.74 10^6/uL (3.5-6.1) 04/10/17 06:45 Hgb 11.9 g/dL (12.0-16.0) L 04/10/17 06:45 Hct 37.5 % (36.0-48.0) 04/10/17 06:45 MCV 100.3 fl (80.0-105.0) 04/10/17 06:45 MCH 31.8 pg (25.0-35.0) 04/10/17 06:45 MCHC 31.7 g/dl (31.0-37.0) 04/10/17 06:45 RDW 14.8 % (11.5-14.5) H 04/10/17 06:45 Plt Count 297 10^3/uL (120.0-450.0) 04/10/17 06:45 MPV 10.0 fl (7.0-11.0) 04/10/17 06:45 Gran % 82.0 % (50.0-68.0) H 04/10/17 06:45 Lymph % (Auto) 11.2 % (22.0-35.0) L 04/10/17 06:45 [place] % (Auto) 6.4 % (1.0-6.0) H 04/10/17 06:45 Eos % (Auto) 0.3 % (1.5-5.0) L 04/10/17 06:45 Baso % (Auto) 0.1 % (0.0-3.0) 04/10/17 06:45 Gran # 12.67 (1.4-6.5) H 04/10/17 06:45 Lymph # 1.7 (1.2-3.4) 04/10/17 06:45 [place] # 1.0 (0.1-0.6) H 04/10/17 06:45 Eos # 0.0 (0.0-0.7) 04/10/17 06:45 Baso # 0.01 K/mm3 (0.0-2.0) 04/10/17 06:45 Neutrophils % (Manual) 91 % (50.0-70.0) H 04/04/17 06:00 Lymphocytes % (Manual) 6 % (22.0-35.0) L 04/04/17 06:00 Atypical Lymphs % 1 % (0.0-0.0) H 04/04/17 06:00 Monocytes % (Manual) 2 % (1.0-6.0) 04/04/17 06:00 Platelet Evaluation Normal (NORMAL) 04/04/17 06:00 Large Platelets Present 04/04/17 06:00 Giant Platelets Present 04/04/17 06:00 Anisocytosis (manual) Slight 04/04/17 06:00 PT 10.8 SECONDS (9.4-12.5) 04/03/17 19:30 INR 0.99 (0.93-1.08) 04/03/17 19:30 APTT 24.6 Seconds (25.1-36.5) L 04/03/17 19:30 pO2 120 mm/Hg (30-55) H 04/04/17 10:50 VBG pH 7.46 (7.32-7.43) H 04/04/17 10:50 VBG pCO2 47.0 (40-60) 04/04/17 10:50 VBG HCO3 33.4 mmol/l (21-28) H 04/04/17 10:50 VBG Total CO2 34.8 mmol.L (22-28) H 04/04/17 10:50 VBG O2 Sat (Calc) 99.4 % (40-65) H 04/04/17 10:50 VBG Base Excess 8.3 mmol/L (0.0-2.0) H 04/04/17 10:50 VBG Potassium 4.2 mmol/L (3.6-5.2) 04/04/17 10:50 Sodium 141.0 mmol/L (132-148) 04/04/17 10:50 Chloride 105.0 mmol/L (98-107) 04/04/17 10:50 Glucose 139 mg/dl (65-105) H 04/04/17 10:50 Lactate 2.8 mmol/L (0.7-2.1) H 04/04/17 10:50 FiO2 21.0 % 04/04/17 10:50 Sodium 136 mmol/L (132-148) 04/10/17 05:00 Potassium 4.2 mmol/L (3.6-5.0) 04/10/17 05:00 Chloride 100 mmol/L (98-107) 04/10/17 05:00 Carbon Dioxide 28 mmol/L (21-33) 04/10/17 05:00 Anion Gap 12 (10-20) 04/10/17 05:00 BUN 13 mg/dL (7-21) 04/10/17 05:00 Creatinine 0.6 mg/dl (0.7-1.2) L 04/10/17 05:00 Est GFR ( Amer) > 60 04/10/17 05:00 Est GFR (Non-Af Amer) > 60 04/10/17 05:00 Random Glucose 161 mg/dL (70-110) H 04/10/17 05:00 Calcium 8.3 mg/dL (8.4-10.5) L 04/10/17 05:00 Phosphorus 4.4 mg/dL (2.5-4.5) 04/10/17 05:00 Magnesium 1.7 mg/dL (1.7-2.2) 04/10/17 05:00 Total Bilirubin 0.4 mg/dL (0.2-1.3) 04/10/17 05:00 AST 35 U/L (14-36) 04/10/17 05:00 ALT 72 U/L (7-56) H 04/10/17 05:00 Alkaline Phosphatase 62 U/L (38-126) 04/10/17 05:00 NT-Pro-B Natriuret Pep 45 pg/mL (0-450) 04/03/17 19:33 Total Protein 5.7 g/dL (5.8-8.3) L 04/10/17 05:00 Albumin 3.0 g/dL (3.0-4.8) 04/10/17 05:00 Globulin 2.6 gm/dL 04/10/17 05:00 Albumin/Globulin Ratio 1.1 (1.1-1.8) 04/10/17 05:00 Lipase 75 U/L (23-300) 04/03/17 19:30 Procalcitonin 0.09 NG/ML (0.19-0.49) L 04/04/17 13:00 Beta HCG, Quant < 2.39 mIU/mL (0-6.15) 04/03/17 19:30 Venous Blood Potassium 4.2 mmol/L (3.6-5.2) 04/04/17 10:50 Urine Color Yellow (YELLOW) 04/03/17 21:04 Urine Appearance Clear (CLEAR) 04/03/17 21:04 Urine pH 6.0 (4.7-8.0) 04/03/17 21:04 Ur Specific Gazelle <= 1.005 (1.005-1.035) 04/03/17 21:04 Urine Protein Negative mg/dL (<30 mg/dL) 04/03/17 21:04 Urine Glucose (UA) Negative mg/dL (NEGATIVE) 04/03/17 21:04 Urine Ketones Negative mg/dL (NEGATIVE) 04/03/17 21:04 Urine Blood Negative (NEGATIVE) 04/03/17 21:04 Urine Nitrate Negative (NEGATIVE) 04/03/17 21:04 Urine Bilirubin Negative (NEGATIVE) 04/03/17 21:04 Urine Urobilinogen 0.2 E.U./dL (<1 E.U./dL) 04/03/17 21:04 Ur Leukocyte Esterase Negative Erik/uL (NEGATIVE) 04/03/17 21:04 Urine HCG, Qual Negative (NEGATIVE) 04/03/17 21:04 Urine Opiates Screen Negative (NEGATIVE) 04/07/17 13:00 Urine Methadone Screen Negative (NEGATIVE) 04/07/17 13:00 Ur Barbiturates Screen Negative (NEGATIVE) 04/07/17 13:00 Ur Phencyclidine Scrn Negative (NEGATIVE) 04/07/17 13:00 Ur Amphetamines Screen Negative (NEGATIVE) 04/07/17 13:00 U Benzodiazepines Scrn Negative (NEGATIVE) 04/07/17 13:00 U Oth Cocaine Metabols Negative (NEGATIVE) 04/07/17 13:00 U Cannabinoids Screen Negative (NEGATIVE) 04/07/17 13:00 Alcohol, Quantitative 162 mg/dL (0-10) H 04/03/17 19:30 Attending/Attestation - Attestation I have personally seen and examined this patient.: Yes I have fully participated in the care of the patient.: Yes I have reviewed all pertinent clinical information, including history, physical exam and plan: Yes Notes (Text): 04/10/17 17:32 Patient was seen and examined with medical officer. Agreed with resident assessment and plan. 46 years old female with PMH of COPD, asthma, alcohol abuse, heroin abuse ( snort and inject), and hepatitis C was admitted with COPD exacerbation and alcohol withdrawal.Patient is not wheezing today, she is on room air.She is ambulatory. There is no sign of alcohol withdrawal at this time. She will be discharged home on tapering dose of Prednisone, albuterol and steroid inhaler for COPD. The issue of ongoing alcohol , smoking and drug abuse was discussed in detail with patient. Risk of re admission is very high due to non compliance and ongoing alcohol and drug abuse. Prognosis is guarded. Management plan was discussed in detail with patient Education was provided.
--- NOTE | 2017-04-10 23:31 | PN ---
DATE: 04/10/2017 SUBJECTIVE: Ms. Fani Chambers was seen early this morning in 576, bed 2. PHYSICAL EXAMINATION VITAL SIGNS: Temperature is 98, blood pressure is 120/70, respiratory rate of 16. HEENT: Unremarkable. NECK: Supple. LUNGS: Decreased breath sound. HEART: Normal S1 and S2. ABDOMEN: Soft. LABORATORY DATA: Laboratory examination is noted. ASSESSMENT AND PLAN: A 46-year-old female seen early this morning in 576, bed 2 with a recent hospitalization, had chronic obstructive lung disease, asthma, polysubstance abuse, hepatitis C, history of pneumothorax, hyperlipidemia, chest tube placement, tonsillectomy with sepsis secondary to enteritis, healthcare-associated pneumonia and currently off of antibiotics. The patient wanted to be discharge this morning. Margarito Robert MD
== END 2017-04-10 18:21 | disposition home or self-care (01) | DRG 584 ==
LOC: ED 19:13 → ERH 23:14 → 3RSO 04-04 01:50 → 5RSO 04-06 16:12
PROVIDERS: ADMIT Hospitalist; ATTEND Internal Medicine
DX: A41.9 Sepsis, unspecified organism (principal); J18.9 Pneumonia, unspecified organism; E83.42 Hypomagnesemia; K74.60 Unspecified cirrhosis of liver; K56.7 Ileus, unspecified; J44.1 Chronic obstructive pulmonary disease with (acute) exacerbation; B19.20 Unspecified viral hepatitis C without hepatic coma; E87.6 Hypokalemia; F10.239 Alcohol dependence with withdrawal, unspecified; K80.20 Calculus of gallbladder without cholecystitis without obstruction; K52.9 Noninfective gastroenteritis and colitis, unspecified; E03.9 Hypothyroidism, unspecified; E78.5 Hyperlipidemia, unspecified; F17.200 Nicotine dependence, unspecified, uncomplicated; F19.10 Other psychoactive substance abuse, uncomplicated; F32.89 Other specified depressive episodes; F41.9 Anxiety disorder, unspecified; I10 Essential (primary) hypertension; K42.9 Umbilical hernia without obstruction or gangrene; N83.202 Unspecified ovarian cyst, left side; T38.0X5A Adverse effect of glucocorticoids and synthetic analogues, initial encounter; Z59.0 Homelessness; Z79.899 Other long term (current) drug therapy; Z83.3 Family history of diabetes mellitus; Z90.49 Acquired absence of other specified parts of digestive tract; S80.02XA Contusion of left knee, initial encounter; F17.210 Nicotine dependence, cigarettes, uncomplicated; R40.2412 Glasgow coma scale score 13-15, at arrival to emergency department; Y95 Nosocomial condition; G47.00 Insomnia, unspecified

== ENCOUNTER 2017-04-27 02:22 | Inpatient (IN) | payer MEDICAID ==
[2017-04-27 02:35] VITALS: BMI 29.9
[2017-04-27] MEDS ORDERED: Albuterol-Ipratrop 3 mg / 0.5 (3 ml) UD ONE (02:40)
--- NOTE | 2017-04-27 02:40 | ED PDOC ---
Arrival/HPI - General Time Seen by Provider: 04/27/17 02:40 Historian: Patient - History of Present Illness Narrative History of Present Illness (Text): 04/27/17 02:40 Fani Chambers is a 46 year old female smoker, whose past medical history includes asthma, COPD, Hepatitis C, alcohol abuse, IV and drug abuse, who presents to the ED complaining of worsening shortness of breath and wheezing today. Patient states symptoms are consistent with previous episodes of asthma/ COPD and reports she ran out of her asthma medication. Patient denies any fever , chills, chest pain, abdominal pain, nausea, vomiting, diarrhea, urinary symptoms, back pain, neck pain, headache, dizziness, or any other complaints. Time/Duration: Other (tonight) Symptom Onset: Gradual Symptom Course: Worsening Activities at Onset: Light Past Medical History - Provider Review Nursing Documentation Reviewed: Yes - Infectious Disease Hx of Infectious Diseases: None - Tetanus Immunization Tetanus Immunization: Unknown - Cardiac Hx Pacemaker: No - Pulmonary Hx Respiratory Disorders: Yes Hx Chronic Obstructive Pulmonary Disease (COPD): Yes - Neurological HX Cerebrovascular Accident: No - HEENT Hx HEENT Disorder: No - Renal Hx Renal Disorder: No - Endocrine/Metabolic Hx Hypothyroidism: Yes - Hematological/Oncological Hx Cancer: No - Integumentary Other/Comment: multiple bruises left knee, swelling right knee and pain to both knees from fall 2 wks ago, multiple eccymotic arreas to left arm, small scab right arm, 2.5cm x 2cm deep red growth to rle "I have had it for years." surgical scar mid lower abd, eccymotic area to lower abd, umbilical hernia noted - Musculoskeletal/Rheumatological Hx Falls: Yes (fell 2 wks ago) - Gastrointestinal Hx Gastrointestinal Disorders: Yes Hx Pancreatitis: (pt denies pancreatitis) Other/Comment: Umbilical hernia /cirrhosis/ distended abd - Genitourinary/Gynecological Hx Genitourinary Disorders: No Hx Sexually Transmitted Diseases: (pt denies trichomonas) - Psychiatric Hx Psychophysiologic Disorder: Yes Hx Anxiety: Yes Hx Depression: Yes Hx Substance Use: Yes (former) Other/Comment: alcohol drinks 4 or 5 24 oz cans of 4-frances a day, 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 - Surgical History Hx Mastectomy: No - Anesthesia Hx Anesthesia: Yes Hx Anesthesia Reactions: No Hx Malignant Hyperthermia: No - Suicidal Assessment Feels Threatened In Home Enviroment: No Family/Social History - Physician Review Nursing Documentation Reviewed: Yes Family/Social History: Unknown Family HX Smoking Status: Heavy Smoker > 10 Cigarettes Daily Hx Alcohol Use: Yes Hx Substance Use: Yes (former) Substance used: HEROIN Hx Substance Use Treatment: Yes Allergies/Home Meds Allergies/Adverse Reactions: Allergies No Known Allergies Allergy (Verified 04/27/17 02:35) Review of Systems - Physician Review All systems were reviewed & negative as marked: Yes - Review of Systems Constitutional: Normal. absent: Fevers Eyes: Normal ENT: Normal Respiratory: SOB, Wheezing Cardiovascular: Normal. absent: Chest Pain Gastrointestinal: Normal. absent: Abdominal Pain, Diarrhea, Nausea, Vomiting Genitourinary Female: Normal. absent: Dysuria, Frequency, Hematuria, Urine Output Changes Musculoskeletal: Normal. absent: Back Pain, Neck Pain Skin: Normal. absent: Rash Neurological: Normal. absent: Headache, Dizziness Endocrine: Normal Hemo/Lymphatic: Normal Psychiatric: Normal Physical Exam Vital Signs Reviewed: Yes Vital Signs Temp Pulse Resp BP Pulse Ox 04/27/17 02:41 99.0 F 138 H 16 138/81 79 L Temperature: Afebrile Blood Pressure: Normal Pulse: Regular Respiratory Rate: Normal Appearance: Positive for: Non-Toxic Pain Distress: None Mental Status: Positive for: Alert and Oriented X 3 - Systems Exam Head: Present: Atraumatic, Normocephalic Pupils: Present: PERRL Extroacular Muscles: Present: EOMI Conjunctiva: Present: Normal Mouth: Present: Moist Mucous Membranes Neck: Present: Normal Range of Motion Respiratory/Chest: Present: Wheezes (Bilateral wheezing). No: Respiratory Distress, Accessory Muscle Use Cardiovascular: Present: Regular Rate and Rhythm, Normal S1, S2. No: Murmurs Abdomen: Present: Normal Bowel Sounds. No: Tenderness, Distention, Peritoneal Signs Back: Present: Normal Inspection Upper Extremity: Present: Normal Inspection. No: Cyanosis, Edema Lower Extremity: Present: Normal Inspection. No: Edema Neurological: Present: GCS=15, CN II-XII Intact, Speech Normal Skin: Present: Warm, Dry, Normal Color. No: Rashes Psychiatric: Present: Alert, Oriented x 3, Normal Insight, Normal Concentration Medical Decision Making ED Course and Treatment: 04/27/17 02:40 Impression: 46 year old female complaining worsening shortness of breath and wheezing. Plan: -- EKG -- Chest X-ray -- Labs -- Duoneb -- Solu-medrol -- Reassess and disposition Prior Visits: Notes and results from previous visits were reviewed. On 04/04/2017, pt was seen in the Emergency department for shortness of breath, wheezing, and abdominal pain. Pt was admitted to the hospital for further evaluation. Progress Notes: 04/27/17 04:52 Chest X-ray reviewed, shows no acute processes. 04/27/17 05:[address] Vickie Louise and medical assistant float construction carpenter, who is aware and agrees with plan.Patient condition has improved but still remains symptomatic requiring ongoing in patient treatment.Accepts pt in to hospitalist service. Pt will go Telemetry observation for COPD exacerbation. 04/27/17 05:57 Reviewed EKG, sinus tachycardia at [address]-segment elevations or depressions, no T-wave inversions. - Lab Interpretations Lab Results: 04/27/17 05:30 04/27/17 05:30 Lab Results 04/27/17 05:30: WBC 18.2 H, RBC 4.47, Hgb 14.7 D, Hct 45.3, MCV 101.3, MCH 32.9 , MCHC 32.5, RDW 15.1 H, Plt Count 368, MPV 9.7 04/27/17 05:30: Sodium 142, Potassium 4.5, Chloride 102, Carbon Dioxide 29, Anion Gap 16, BUN 8, Creatinine 1.1, Est GFR ( Amer) > 60, Est GFR (Non- Af Amer) 54, Random Glucose 132 H, Calcium 8.5, Total Bilirubin 0.7, AST 59 H D , ALT 58 H, Alkaline Phosphatase 86, Total Protein 7.5, Albumin 3.8, Globulin 3.7, Albumin/Globulin Ratio 1.0 L - RAD Interpretation Radiology Orders: 04/27/17 02:43 CHEST PORTABLE [RAD] Stat Technical Advisor: ED Physician - Medication Orders Current Medication Orders: Albuterol/Ipratropium (Duoneb 3 Mg/0.5 Mg (3 Ml) Ud) 3 ml IH Q2H PRN PRN Reason: Shortness of Breath Albuterol/Ipratropium (Duoneb 3 Mg/0.5 Mg (3 Ml) Ud) 3 ml IH [id number] JACK Multivitamins/Vitamin C 10 ml/Thiamine HCl 100 mg/ Folic Acid 1 mg/ Sodium Chloride 1,011.2 mls @ 100 mls/hr IV .[id number] ONE Stop: 04/27/17 15:59 Levofloxacin/Dextrose (Levaquin 500mg) 500 mg in 100 mls @ 100 mls/hr IVPB DAILY JACK PRN Reason: Protocol Lorazepam (Ativan) 1 mg IVP Q6H PRN; Protocol PRN Reason: Anxiety Methylprednisolone (Solu-Medrol) 40 mg IVP Q12 JACK Montelukast Sodium (Singulair) 10 mg PO HS JACK Ondansetron HCl (Zofran Inj) 4 mg IVP Q6H PRN PRN Reason: Nausea/Vomiting Pantoprazole Sodium (Protonix Ec Tab) 40 mg PO 0600 JACK Discontinued Medications Albuterol/Ipratropium (Duoneb 3 Mg/0.5 Mg (3 Ml) Ud) 3 ml IH ONCE STA Stop: 04/27/17 02:46 Last Admin: 04/27/17 03:30 Dose: 3 ml Albuterol/Ipratropium (Duoneb 3 Mg/0.5 Mg (3 Ml) Ud) 3 ml IH ONCE STA Stop: 04/27/17 03:13 Last Admin: 04/27/17 03:38 Dose: 3 ml Albuterol/Ipratropium (Duoneb 3 Mg/0.5 Mg (3 Ml) Ud) 3 ml IH ONCE STA Stop: 04/27/17 04:23 Last Admin: 04/27/17 04:47 Dose: 3 ml Lorazepam (Ativan) 1 mg IVP ONCE ONE PRN Reason: Protocol Stop: 04/27/17 05:54 Methylprednisolone (Solu-Medrol) 125 mg IVP ONCE ONE Stop: 04/27/17 02:46 Last Admin: 04/27/17 03:20 Dose: 125 mg IVP Administration Document 04/27/17 03:20 HUGH (Rec: 04/27/17 03:30 HUGH [id number]) Charges for Administration # of IVP Administrations 1 - Scribe Statement The provider has reviewed the documentation as recorded by the Jc Rosales Provider Scribe Attestation: All medical record entries made by the Scribe were at my direction and personally dictated by me. I have reviewed the chart and agree that the record accurately reflects my personal performance of the history, physical exam, medical decision making, and the department course for this patient. I have also personally directed, reviewed, and agree with the discharge instructions and disposition. Disposition/Present on Arrival - Present on Arrival Any Indicators Present on Arrival: No History of DVT/PE: No History of Uncontrolled Diabetes: No Urinary Catheter: No History of Decub. Ulcer: No History Surgical Site Infection Following: None - Disposition Have Diagnosis and Disposition been Completed?: Yes Diagnosis: Status asthmaticus Disposition: HOSPITALIZED Disposition Time: 05:38 Patient Plan: Observation Patient Problems: Current Active Problems Problem Status Onset Status asthmaticus Acute Condition: STABLE
[2017-04-27] MEDS ORDERED: Albuterol-Ipratrop 3 mg / 0.5 (3 ml) UD IH STA ×3 (02:45→04:22)
[2017-04-27] MEDS ORDERED: Multivitamin (MVI) 10 ML, Thiamine 100 MG, Folic Acid 1 MG in Sodium Chloride 0.9% 1,00... IV ONE (05:53)
[2017-04-27] MEDS ORDERED: Albuterol-Ipratrop 3 mg / 0.5 (3 ml) UD IH PRN (05:53)
[2017-04-27 05:57] LABS: MEAN CELL VOLUME 101.3 fl (80.0-105.0); MEAN CORPUSCULAR HEMOGLOBIN 32.9 pg (25.0-35.0); MEAN CORPUSCULAR HGB CONC 32.5 g/dl (31.0-37.0); MEAN PLATELET VOLUME 9.7 fl (7.0-11.0); RBC 4.47 10^6/uL (3.5-6.1); RED CELL DISTRIBUTION WIDTH 15.1 % (11.5-14.5); WHITE BLOOD COUNT 18.2 10^3/ul (4.5-11.0)
[2017-04-27 06:06] LABS: ALBUMIN 3.8 g/dL (3.0-4.8); ALT/SGPT 58 U/L (7-56); AST/SGOT 59 U/L (14-36); BLOOD UREA NITROGEN 8 mg/dL (7-21); CALCIUM 8.5 mg/dL (8.4-10.5); GFR AFRICAN-AMERICAN > 60; GFR NON-AFRICAN AMERICAN 54; HEMOGLOBIN 14.7 g/dL (12.0-16.0)
[2017-04-27 06:07] LABS: INR 1.04 (0.93-1.08); PARTIAL THROMBOPLASTIN TIME 29.1 Seconds (25.1-36.5)
--- NOTE | 2017-04-27 06:15 | CP.PCM.HP ---
History of Present Illness - History of Present Illness History of Present Illness: Ms. Chambers is a 46 year old female with a past medical history significant for COPD, asthma, alcohol abuse, heroin abuse (snort and inject), and hepatitis C with cirrhosis who presents with shortness of breath, bilateral ear "congestion" and cough productive of yellow phlegm that started two days ago. Patient reports that she recently ran out of her asthma medications several days ago. She states that she normally has a chronic cough productive of clear sputum but that this has recently changed to yellow sputum two days ago. She endorses that her SOB and cough are worsened when she is outdoors in the cold, with exertion and when she is laying down flat. She reports that for the past two days, she has also felt like her hearing has gotten worse and describes a sensation of fullness in both ears but denies pain, trauma or discharge. 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 She denies fever, chills, headache, changes in her vision, sore throat, dysphagia, chest pain, palpitations, leg swelling, orthopnea, hemoptysis, abdominal pain, N/V, diarrhea, constipation, melena, hematochezia, burning/pain with urination, urinary frequency, hematuria, skin changes, joint pain, or any numbness/tingling/weakness of any extremity. PMH: COPD, asthma, alcohol/heroin abuse, and hepatitis C with liver cirrhosis PSH: Appendectomy, tonsillectomy Family History: Father-DM2 Social History: Smokes 1/2 pk/day for >30 years, drinks 5-6 cans of four frances daily (14% alcohol x 24 ounces), reports prior IVDU, currently snorts heroin 2- 10 bags weekly; homeless Allergies: NKDA Home Medications: As per JUN PMD: none Present on Admission - Present on Admission Any Indicators Present on Admission: No Review of Systems - Review of Systems Review of Systems: As stated in HPI, otherwise negative Past Patient History - Infectious Disease Hx of Infectious Diseases: None - Tetanus Immunizations Tetanus Immunization: Unknown - Past Medical History & Family History Past Medical History?: Yes - Past Social History Smoking Status: Heavy Smoker > 10 Cigarettes Daily - CARDIAC Hx Pacemaker: No - PULMONARY Hx Respiratory Disorders: Yes Hx Chronic Obstructive Pulmonary Disease (COPD): Yes - NEUROLOGICAL HX Cerebrovascular Accident: No - HEENT Hx HEENT Problems: No - RENAL Hx Chronic Kidney Disease: No - ENDOCRINE/METABOLIC Hx Hypothyroidism: Yes - HEMATOLOGICAL/ONCOLOGICAL Hx Cancer: No - INTEGUMENTARY Other/Comment: multiple bruises left knee, swelling right knee and pain to both knees from fall 2 wks ago, multiple eccymotic arreas to left arm, small scab right arm, 2.5cm x 2cm deep red growth to rle "I have had it for years." surgical scar mid lower abd, eccymotic area to lower abd, umbilical hernia noted - MUSCULOSKELETAL/RHEUMATOLOGICAL Hx Falls: Yes (fell 2 wks ago) - GASTROINTESTINAL Hx Gastrointestinal Disorders: Yes Hx Pancreatitis: (pt denies pancreatitis) Other/Comment: Umbilical hernia /cirrhosis/ distended abd - GENITOURINARY/GYNECOLOGICAL Hx Genitourinary Disorders: No Hx Sexually Transmitted Disorders: (pt denies trichomonas) - PSYCHIATRIC Hx Psychophysiologic Disorder: Yes Hx Anxiety: Yes Hx Depression: Yes Hx Substance Use: Yes (former) Other/Comment: alcohol drinks 4 or 5 24 oz cans of 4-frances a day, 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 - SURGICAL HISTORY Hx Mastectomy: No - ANESTHESIA Hx Anesthesia: Yes Hx Anesthesia Reactions: No Hx Malignant Hyperthermia: No Meds Allergies/Adverse Reactions: Allergies Allergy/AdvReac Type Severity Reaction Status Date / Time No Known Allergies Allergy Verified 04/27/17 02:35 Physical Exam - Constitutional Appears: Non-toxic, No Acute Distress - Head Exam Head Exam: ATRAUMATIC, NORMAL INSPECTION, NORMOCEPHALIC - Eye Exam Eye Exam: EOMI, Normal appearance, PERRL. absent: Conjunctival injection, Nystagmus, Periorbital swelling, Periorbital tenderness, Scleral icterus Pupil Exam: NORMAL ACCOMODATION, PERRL. absent: Fixed, Irregular, Miosis, Mydriatic, Unequal - ENT Exam ENT Exam: Mucous Membranes Dry, Normal Exam, Normal External Ear Exam, Normal Oropharynx. absent: Mucous Membranes Moist, TM's Normal Bilaterally (TM's not visualized due to bilateral cerumen impaction) - Neck Exam Neck exam: Positive for: Full Rom, Normal Inspection. Negative for: Lymphadenopathy, Meningismus, Tenderness, Thyromegaly - Respiratory Exam Respiratory Exam: Accessory Muscle Use, Wheezes (Expiratory; Upper lung dean) . absent: Chest Wall Tenderness, Decreased Breath Sounds, Clear to Auscultation Bilateral, Prolonged Expiratory Phase, Rales, Rhonchi, Respiratory Distress, Stridor, NORMAL BREATHING PATTERN - Cardiovascular Exam Cardiovascular Exam: REGULAR RHYTHM, RRR, +S1, +S2. absent: Bradycardia, Tachycardia, Clicks, Diastolic murmur, Gallop, Irregular Rhythm, JVD, Rubs, +S4 , Systolic Murmur - GI/Abdominal Exam GI & Abdominal Exam: Normal Bowel Sounds, Soft. absent: Bruit, Diminished Bowel Sounds, Distended, Firm, Guarding, Hernia, Hyperactive Bowel Sounds, Hypoactive Bowel Sounds, Mass, Organomegaly, Pulsatile Mass, Rebound, Rigid, Tenderness - Extremities Exam Extremities exam: Positive for: full ROM, normal capillary refill, normal inspection, pedal pulses present. Negative for: calf tenderness, joint swelling , pedal edema, tenderness - Back Exam Back exam: FULL ROM, NORMAL INSPECTION. absent: CVA tenderness (L), CVA tenderness (R), muscle spasm, paraspinal tenderness, rash noted, tenderness, vertebral tenderness - Neurological Exam Neurological exam: Alert, CN II-XII Intact, Normal Gait, Oriented x3 - Psychiatric Exam Psychiatric exam: Normal Affect, Normal Mood - Skin Skin Exam: Dry, Intact, Normal Color, Warm Results - Vital Signs Recent Vital Signs: Last Vital Signs Temp 99.0 F 04/27/17 02:41 Pulse 138 H 04/27/17 02:41 Resp 16 04/27/17 02:41 BP 138/81 04/27/17 02:41 Pulse Ox 79 L 04/27/17 02:41 Assessment & Plan - Assessment and Plan (Free Text) Assessment: 46 year old female with a past medical history significant for COPD, asthma, alcohol abuse, heroin abuse (snort and inject), and hepatitis C with cirrhosis who presents with shortness of breath, bilateral ear "congestion" and cough productive of yellow phlegm that started two days ago. Chest X-ray, CBC, CMP and UA pending. Patient reports improvement of her symptoms after 3 duoneb treatments and a 125mg IV dose of solu-medrol. Plan: 1. COPD/Asthma Exacerbation -Chest X-Ray pending -Levaquin 500mg IVPB QD -IV Solu-medrol 40mg Q12H -Duonebs 3ml IH [id number] JACK and [id number] PRN -Continue home Singulair -Telemetry monitoring 2. Alcohol Abuse/Withdrawal -Ativan 1mg Q6H PRN -Zofran 4mg Q6H PRN -Banana Bag at 100mls/hr -Alcohol serum pending -CIWA assessment Q4H -Aspiration and Seizure precautions 3. History of IVDU/Heroin abuse -UDS pending GI Prophylaxis: Protonix DVT Prophylaxis: SCD's Diet: Heart Healthy Moderate Carbohydrate Consistent Patient seen and case discussed with attending, Dr. Manuela Louise. - Date & Time Date: 04/27/17 Time: 06:19 Decision To Admit - Pt Status Changed To: Hospital Disposition Of: Observation - . Bed Request Type: Telemetry
[2017-04-27] MEDS: Pantoprazole 40 mg EC Tab PO SCH (07:13)
--- NOTE | 2017-04-27 08:30 | RAD ---
HISTORY: medical clearance COMPARISON: 04/03/2017 FINDINGS: LUNGS: No active pulmonary disease. PLEURA: No significant pleural effusion identified, no pneumothorax apparent. CARDIOVASCULAR: Normal. OSSEOUS STRUCTURES: No significant abnormalities. VISUALIZED UPPER ABDOMEN: Normal. OTHER FINDINGS: None. IMPRESSION: No active disease.
[2017-04-27] MEDS ORDERED: MethylPREDNISolone 40 mg Vial IVP SCH (10:00)
[2017-04-27] MEDS: levoFLOXacin 500 mg in D5W 500 MG/100 ML BAG IVPB SCH (12:15)
[2017-04-27] MEDS: MethylPREDNISolone 40 mg Vial IVP SCH (12:16)
[2017-04-27] MEDS: Albuterol-Ipratrop 3 mg / 0.5 (3 ml) UD IH SCH ×3 (12:21→20:39)
--- NOTE | 2017-04-27 17:56 | CARD ---
APPROVED REPORT EKG Measurement Heart [id number] <Conclusion> Sinus tachycardia Otherwise normal ECG
[2017-04-27] MEDS ORDERED: Pneumococcal 23-Valent Vaccine IM ONE (22:38)
[2017-04-27] MEDS ORDERED: Influenza Vaccine 60 mcg/0.5 mL SYR (4YR UP) IM ONE (22:38)
[2017-04-28] MEDS: Albuterol-Ipratrop 3 mg / 0.5 (3 ml) UD IH SCH ×4 (01:27→20:16)
[2017-04-28 03:20] VITALS: RESP 20
[2017-04-28] MEDS: Pantoprazole 40 mg EC Tab PO SCH (06:50)
[2017-04-28 07:31] LABS: BASO # 0.02 K/mm3 (0.0-2.0); BASO % 0.1 % (0.0-3.0); GRAN # 15.39 (1.4-6.5); GRAN % 82.4 % (50.0-68.0); LYMPH # 2.1 (1.2-3.4); LYMPH % 11.1 % (22.0-35.0); MEAN CORPUSCULAR HEMOGLOBIN 31.7 pg (25.0-35.0); MEAN CORPUSCULAR HGB CONC 31.7 g/dl (31.0-37.0); MEAN PLATELET VOLUME 9.7 fl (7.0-11.0); MONO # 1.2 (0.1-0.6); MONO % 6.4 % (1.0-6.0); RBC 3.6 10^6/uL (3.5-6.1); RED CELL DISTRIBUTION WIDTH 14.5 % (11.5-14.5); WHITE BLOOD COUNT 18.7 10^3/ul (4.5-11.0)
[2017-04-28 07:44] LABS: HEMOGLOBIN 11.4 g/dL (12.0-16.0)
[2017-04-28 07:49] LABS: ALB/GLOB RATIO 0.9 (1.1-1.8); ALBUMIN 2.8 g/dL (3.0-4.8); ALT/SGPT 39 U/L (7-56); AST/SGOT 35 U/L (14-36); BLOOD UREA NITROGEN 12 mg/dL (7-21); CALCIUM 8.3 mg/dL (8.4-10.5); GFR AFRICAN-AMERICAN > 60; GFR NON-AFRICAN AMERICAN > 60
[2017-04-28] MEDS: MethylPREDNISolone 40 mg Vial IVP SCH (09:06)
[2017-04-28] MEDS: levoFLOXacin 500 mg in D5W 500 MG/100 ML BAG IVPB SCH (09:06)
--- NOTE | 2017-04-28 15:45 | CP.PCM.PN ---
<Tahir Schuster - Last Filed: 04/28/17 15:41> Subjective - Date & Time of Evaluation Date of Evaluation: 04/28/17 Time of Evaluation: 15:42 - Subjective Subjective: Medicine progress note Patient seen and examined at bedside this morning. No acute overnight events or new complaints reported. Patient has mild bilateral wheezing on examination and cough. Denies chest pain and palpitations. Objective - Vital Signs/Intake and Output Vital Signs (last 24 hours): Temp Pulse Resp BP Pulse Ox 97.3 F L 98 H 20 130/80 94 L 04/28/17 06:00 04/28/17 06:00 04/28/17 06:00 04/28/17 12:38 04/28/17 06:00 - Medications Medications: Current Medications Albuterol/Ipratropium (Duoneb 3 Mg/0.5 Mg (3 Ml) Ud) 3 ml IH Q2H PRN PRN Reason: Shortness of Breath Albuterol/Ipratropium (Duoneb 3 Mg/0.5 Mg (3 Ml) Ud) 3 ml IH [id number] [facility] Last Admin: 04/28/17 13:40 Dose: 3 ml Levofloxacin/Dextrose (Levaquin 500mg) 500 mg in 100 mls @ 100 mls/hr IVPB DAILY JACK PRN Reason: Protocol Last Admin: 04/28/17 09:06 Dose: 100 mls/hr Lorazepam (Ativan) 2 mg IVP Q6H PRN; Protocol PRN Reason: Anxiety Lorazepam (Ativan) 0.5 mg IVP Q6 JACK PRN Reason: Protocol Methylprednisolone (Solu-Medrol) 40 mg IVP DAILY [facility] Last Admin: 04/28/17 09:06 Dose: 40 mg Montelukast Sodium (Singulair) 10 mg PO HS [facility] Last Admin: 04/27/17 21:57 Dose: 10 mg Ondansetron HCl (Zofran Inj) 4 mg IVP Q6H PRN PRN Reason: Nausea/Vomiting Pantoprazole Sodium (Protonix Ec Tab) 40 mg PO 0600 [facility] Last Admin: 04/28/17 06:50 Dose: 40 mg Trazodone HCl (Desyrel) 50 mg PO HS [facility] - Labs Labs: PT 12.0 SECONDS (9.4-12.5) 04/27/17 05:30 INR 1.04 (0.93-1.08) 04/27/17 05:30 APTT 29.1 Seconds (25.1-36.5) 04/27/17 05:30 - Constitutional Appears: No Acute Distress, Unkempt - Head Exam Head Exam: ATRAUMATIC, NORMAL INSPECTION, NORMOCEPHALIC - Eye Exam Eye Exam: EOMI, PERRL - ENT Exam ENT Exam: Mucous Membranes Moist - Respiratory Exam Respiratory Exam: Prolonged Expiratory Phase, Wheezes. absent: Rales, Rhonchi - Cardiovascular Exam Cardiovascular Exam: RRR, +S1, +S2. absent: Gallop, JVD, Rubs, Murmur - GI/Abdominal Exam GI & Abdominal Exam: Soft, Normal Bowel Sounds. absent: Distended, Firm, Guarding, Rigid, Tenderness, Rebound - Neurological Exam Neurological Exam: Alert, Awake, CN II-XII Intact, Oriented x3 - Psychiatric Exam Psychiatric exam: Normal Affect, Normal Mood - Skin Skin Exam: Dry, Intact, Normal Color, Warm Assessment and Plan - Assessment and Plan (Free Text) Plan: 46 year old female with a past medical history significant for COPD, asthma, alcohol abuse, heroin abuse (snort and inject), and hepatitis C with cirrhosis who presents with shortness of breath and cough productive of yellow phlegm that started two days ago. Presently being treated for COPD exacerbation and alcohol abuse/withdrawal 1. COPD/Asthma Exacerbation -Chest X-Ray revealed no active disease -Levaquin 500mg IVPB QD -Solumedrol 40 daily, tapered -Duoneb JACK and PRN -Continue home Singulair 2. Alcohol Abuse/Withdrawal -Ativan 0.5mg Q6H JACK -Ativan PRN -Zofran 4mg Q6H PRN -Banana Bag at 100mls/hr -Alcohol serum 21 -CIWA assessment Q4H -Aspiration and Seizure precautions 3. History of IVDU/Heroin abuse -UDS pending GI Prophylaxis: Protonix DVT Prophylaxis: lovenox Patient seen and case discussed with attending, Dr. Cardona <Soo Cardona - Last Filed: 04/28/17 17:08> Objective - Vital Signs/Intake and Output Vital Signs (last 24 hours): Temp Pulse Resp BP Pulse Ox 97.3 F L 98 H 20 130/80 94 L 04/28/17 12:00 04/28/17 12:00 04/28/17 12:00 04/28/17 12:38 04/28/17 12:00 - Medications Medications: Current Medications Albuterol/Ipratropium (Duoneb 3 Mg/0.5 Mg (3 Ml) Ud) 3 ml IH Q2H PRN PRN Reason: Shortness of Breath Albuterol/Ipratropium (Duoneb 3 Mg/0.5 Mg (3 Ml) Ud) 3 ml IH [id number] [facility] Last Admin: 04/28/17 13:40 Dose: 3 ml Enoxaparin Sodium (Lovenox) 40 mg SC DAILY [facility] PRN Reason: Protocol Levofloxacin/Dextrose (Levaquin 500mg) 500 mg in 100 mls @ 100 mls/hr IVPB DAILY [facility] PRN Reason: Protocol Last Admin: 04/28/17 09:06 Dose: 100 mls/hr Lorazepam (Ativan) 2 mg IVP Q6H PRN; Protocol PRN Reason: Anxiety Lorazepam (Ativan) 0.5 mg IVP Q6 [facility] PRN Reason: Protocol Methylprednisolone (Solu-Medrol) 40 mg IVP DAILY [facility] Last Admin: 04/28/17 09:06 Dose: 40 mg Montelukast Sodium (Singulair) 10 mg PO HS [facility] Last Admin: 04/27/17 21:57 Dose: 10 mg Ondansetron HCl (Zofran Inj) 4 mg IVP Q6H PRN PRN Reason: Nausea/Vomiting Pantoprazole Sodium (Protonix Ec Tab) 40 mg PO 0600 [facility] Last Admin: 04/28/17 06:50 Dose: 40 mg Trazodone HCl (Desyrel) 50 mg PO HS [facility] - Labs Labs: PT 12.0 SECONDS (9.4-12.5) 04/27/17 05:30 INR 1.04 (0.93-1.08) 04/27/17 05:30 APTT 29.1 Seconds (25.1-36.5) 04/27/17 05:30 Attending/Attestation - Attestation I have personally seen and examined this patient.: Yes I have fully participated in the care of the patient.: Yes I have reviewed all pertinent clinical information, including history, physical exam and plan: Yes Notes (Text): 04/28/17 17:03 Patient was seen and examined with medical assistant instructor. Agreed with resident assessment and plan. 46 year old female with a past medical history significant for COPD, asthma, alcohol abuse, heroin abuse (snort and inject), and hepatitis C was admitted with alcohol withdrawal and copd exacerbation.Patient wheezing is better, steroid can be changed to oral. Patient alcohol withdrawal are improving, can be discharged in 24 hour. Prognosis is guarded. Management plan was discussed in detail with patient Education was provided.
[2017-04-29] MEDS: Albuterol-Ipratrop 3 mg / 0.5 (3 ml) UD IH SCH ×3 (03:30→13:12)
[2017-04-29] MEDS: Pantoprazole 40 mg EC Tab PO SCH (07:25)
[2017-04-29 09:25] LABS: BASO # 0.02 K/mm3 (0.0-2.0); BASO % 0.1 % (0.0-3.0); EOS % 0.1 % (1.5-5.0); GRAN # 10.11 (1.4-6.5); GRAN % 75.8 % (50.0-68.0); HEMOGLOBIN 11.7 g/dL (12.0-16.0); LYMPH # 2.2 (1.2-3.4); LYMPH % 16.2 % (22.0-35.0); MEAN CELL VOLUME 101.9 fl (80.0-105.0); MEAN CORPUSCULAR HEMOGLOBIN 31.6 pg (25.0-35.0); MEAN PLATELET VOLUME 9.6 fl (7.0-11.0); MONO % 7.8 % (1.0-6.0); RBC 3.7 10^6/uL (3.5-6.1); RED CELL DISTRIBUTION WIDTH 14.7 % (11.5-14.5); WHITE BLOOD COUNT 13.3 10^3/ul (4.5-11.0)
[2017-04-29 09:39] LABS: BLOOD UREA NITROGEN 16 mg/dL (7-21); CALCIUM 8.4 mg/dL (8.4-10.5); GFR AFRICAN-AMERICAN > 60; GFR NON-AFRICAN AMERICAN > 60
[2017-04-29] MEDS: MethylPREDNISolone 40 mg Vial IVP SCH (09:52)
[2017-04-29] MEDS ORDERED: Enoxaparin 40 mg Syringe SC SCH (10:00)
[2017-04-29] MEDS: levoFLOXacin 500 mg in D5W 500 MG/100 ML BAG IVPB SCH (10:55)
[2017-04-29 17:58] VITALS: BP 149/67; PULSE 107; TEMP 98.5; O2SAT 93
[2017-04-30] MEDS ORDERED: levoFLOXacin 500 MG TAB PO SCH (10:00)
== END 2017-04-29 19:32 | disposition home or self-care (01) | DRG 88 ==
LOC: ED 02:22 → ERH 05:33 → 3RSO 18:02 → OBSVTOIN 04-28 12:20
PROVIDERS: ADMIT Internal Medicine; ATTEND Internal Medicine
PROC: 3E0F7GC Introduction of Other Therapeutic Substance into Respiratory Tract, Via Natural or Artificial Opening (ICD-10-PCS; principal; 2017-04-27)
DX: J44.1 Chronic obstructive pulmonary disease with (acute) exacerbation (principal); J45.901 Unspecified asthma with (acute) exacerbation; K74.60 Unspecified cirrhosis of liver; F10.239 Alcohol dependence with withdrawal, unspecified; F11.10 Opioid abuse, uncomplicated; B19.20 Unspecified viral hepatitis C without hepatic coma; Y90.1 Blood alcohol level of 20-39 mg/100 ml; F17.210 Nicotine dependence, cigarettes, uncomplicated

== ENCOUNTER 2017-05-02 17:51 | Emergency (ER) | payer MEDICAID ==
[2017-05-02 17:52] VITALS: BMI 29.9
== END 2017-05-02 20:51 | disposition left against medical advice (07) ==
LOC: ED 17:51
DX: Z02.89 Encounter for other administrative examinations (principal); L08.9 Local infection of the skin and subcutaneous tissue, unspecified

== ENCOUNTER 2017-05-10 13:05 | Inpatient (IN) | payer MEDICAID ==
--- NOTE | 2017-05-10 13:43 | ED PDOC ---
Arrival/HPI - General Chief Complaint: Cough, Cold, Congestion Time Seen by Provider: 05/10/17 13:40 Historian: Patient, Spouse - History of Present Illness Narrative History of Present Illness (Text): 05/10/17 13:40 This 46 yo female with pmh asthma, COPD, smoker, alcohol abuse, presents to this c/o asthma exacerbation x 2 hours. Patient admits cough, and congestion x 7 days. Patient also noted she developed a right dorsal hand infection x 10 days. She stated she was hospitalized for COPD exacerbation 2 weeks ago. Time/Duration: Other (see hpi) Context: Home Past Medical History - Provider Review Nursing Documentation Reviewed: Yes - Infectious Disease Hx of Infectious Diseases: None - Tetanus Immunization Tetanus Immunization: Unknown - Cardiac Hx Angina: No Hx Pacemaker: No - Pulmonary Hx Respiratory Disorders: Yes (CURRENTLY SMOKES CIGARETTES 10 CIG A DAY) Hx Chronic Obstructive Pulmonary Disease (COPD): Yes - Neurological Hx Neurological Disorder: Yes (CLOGGED EARS) HX Cerebrovascular Accident: No - HEENT Hx HEENT Disorder: No - Renal Hx Renal Disorder: No - Endocrine/Metabolic Hx Endocrine Disorders: Yes Hx Hypothyroidism: Yes - Hematological/Oncological Hx Blood Disorders: No Hx Cancer: No - Integumentary Hx Dermatological Disorder: Yes Other/Comment: multiple bruises left knee, swelling right knee and pain to both knees from fall 2 wks ago, multiple eccymotic arreas to left arm, small scab right arm, 2.5cm x 2cm deep red growth to rle "I have had it for years." surgical scar mid lower abd, eccymotic area to lower abd, umbilical hernia noted - Musculoskeletal/Rheumatological Hx Musculoskeletal Disorders: Yes Hx Falls: Yes (fell 2 wks ago) - Gastrointestinal Hx Gastrointestinal Disorders: Yes Hx Pancreatitis: (pt denies pancreatitis) Other/Comment: Umbilical hernia /cirrhosis/ distended abd - Genitourinary/Gynecological Hx Genitourinary Disorders: No Hx Sexually Transmitted Diseases: (pt denies trichomonas) - Psychiatric Hx Psychophysiologic Disorder: Yes Hx Anxiety: Yes Hx Depression: Yes Hx Substance Use: Yes (H/O IVDU,SNORTS HEROINE NEVER BEEN IN A PROGRAM) Other/Comment: alcohol drinks 4 or 5 24 oz cans of 4-frances a day, 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 - Surgical History Hx Appendectomy: Yes Hx Mastectomy: No - Anesthesia Hx Anesthesia: Yes Hx Anesthesia Reactions: No Hx Malignant Hyperthermia: No - Suicidal Assessment Feels Threatened In Home Enviroment: No Family/Social History - Physician Review Nursing Documentation Reviewed: Yes Family/Social History: Other (noncontributory) Smoking Status: Current Some Days Smoker Hx Alcohol Use: Yes (LAST DRANK 3 24 OZ BEER.DAILY BEERS DEPENDING ON HOW MUCH MONEY) Hx Substance Use: Yes (H/O IVDU,SNORTS HEROINE NEVER BEEN IN A PROGRAM) Substance used: HEROIN Hx Substance Use Treatment: Yes Allergies/Home Meds Allergies/Adverse Reactions: Allergies No Known Allergies Allergy (Verified 05/10/17 13:21) Home Medications: Home Meds Medication Instructions Recorded Confirmed Unobtainable 05/10/17 05/10/17 Review of Systems - Review of Systems Constitutional: Normal. absent: Fatigue, Weight Change, Fevers Eyes: Normal ENT: Normal. absent: Sore Throat Respiratory: SOB, Cough, Sputum, Wheezing Cardiovascular: Normal. absent: Chest Pain Gastrointestinal: Normal. absent: Abdominal Pain, Nausea, Vomiting Genitourinary Female: Normal. absent: Dysuria, Frequency Musculoskeletal: Other (see skin). absent: Back Pain Skin: Cellulitis. absent: Rash, Pruritis, Skin Lesions, Laceration, Abscess, Ulcer Neurological: Normal. absent: Headache, Dizziness, Focal Weakness, Gait Changes Endocrine: Normal Hemo/Lymphatic: Normal Psychiatric: Normal. absent: Anxiety, Depression, Suicidal Ideation Physical Exam Vital Signs Temp Pulse Resp BP Pulse Ox 05/10/17 20:15 99 H 16 137/89 96 05/10/17 17:25 108 H 16 136/89 97 05/10/17 15:41 98.3 F 100 H 20 126/91 H 05/10/17 13:19 98.6 F 100 H 18 124/74 96 Temperature: Afebrile Blood Pressure: Normal Pulse: Regular Respiratory Rate: Normal Appearance: Positive for: Well-Appearing, Non-Toxic, Comfortable Pain Distress: None Mental Status: Positive for: Alert and Oriented X 3 - Systems Exam Head: Present: Atraumatic, Normocephalic Pupils: Present: PERRL Extroacular Muscles: Present: EOMI Conjunctiva: Present: Normal Mouth: Present: Moist Mucous Membranes Neck: Present: Normal Range of Motion. No: Meningeal Signs Respiratory/Chest: Present: Wheezes, Decreased Breath Sounds, Rhonchi. No: Respiratory Distress, Accessory Muscle Use Cardiovascular: Present: Regular Rate and Rhythm, Normal S1, S2. No: Murmurs Abdomen: Present: Normal Bowel Sounds. No: Tenderness, Distention, Peritoneal Signs Back: Present: Normal Inspection. No: CVA Tenderness Upper Extremity: Present: Normal ROM, NORMAL PULSES, Tenderness, Swelling, Erythema ((+) right dorsal hand cellulitis, aprox 1/2 of dorsla aspect of hand) , Neurovascularly Intact, Capillary Refill < 2s. No: Cyanosis, Edema Lower Extremity: Present: Normal Inspection. No: Edema Neurological: Present: GCS=15, CN II-XII Intact, Speech Normal, Motor Func Grossly Intact, Normal Sensory Function, Normal Cerebellar Funct, Gait Normal Skin: Present: Warm, Dry, Normal Color. No: Rashes Psychiatric: Present: Alert, Oriented x 3, Normal Insight, Normal Concentration Medical Decision Making ED Course and Treatment: 05/10/17 13:54 I reviewed the benefits vs risk by taking Steroids. Solumedrol is steroid IV, and it is used for asthma exacerbation. Solumedrol has risk of AVN, glaucoma, DM, osteoporosis, and many other risk. Patient understood the risk of Solumedrol, but she stated that this medication works for her asthma, and she insisted to have this medication. 05/10/17 22:[address] Vickie Louise plain dealing doctor regarding patient cellulitis, asthma exacerbation, and elevated WBC. She agreed with plan for admission. Resident is aware. Re-evaluation Time: 22:47 Reassessment Condition: Re-examined, Improving,but remains with symptoms - Lab Interpretations Lab Results: 05/10/17 14:13 05/10/17 14:13 Lab Results 05/10/17 15:02: Urine Color Yellow, Urine Appearance Clear, Urine pH 8.0, Ur Specific [place] 1.010, Urine Protein Negative, Urine Glucose (UA) Negative, Urine Ketones Negative, Urine Blood Trace-intact H, Urine Nitrate Negative, Urine Bilirubin Negative, Urine Urobilinogen 1.0 H, Ur Leukocyte Esterase Negative, Urine RBC 0 - 2, Urine WBC Negative, Ur Epithelial Cells 1 - 3 05/10/17 14:15: pCO2 44, pO2 66.0 L, HCO3 32.8 H, ABG pH 7.48 H, ABG Total CO2 34.2 H, ABG O2 Saturation 97.2, ABG Base Excess 8.2 H, ABG Potassium 2.5 L*, Glucose 76, Lactate 1.7, FiO2 21.0, Sodium 142.0, Chloride 103.0, Arterial Blood Potassium 2.5 L* 05/10/17 14:13: Alcohol, Quantitative 47 H 05/10/17 14:13: Sodium 139, Potassium 3.5 L, Chloride 99, Carbon Dioxide 29, Anion Gap 14, BUN 5 L, Creatinine 0.5 L, Est GFR ( Amer) > 60, Est GFR ( Non-Af Amer) > 60, Random Glucose 79, Calcium 8.2 L, Phosphorus 2.9, Magnesium 1.6 L, Total Bilirubin 0.6, AST 119 H D, ALT 116 H, Alkaline Phosphatase 104, Lactate Dehydrogenase 808 H, Total Creatine Kinase 27 L, Troponin I < 0.01, NT- Pro-B Natriuret Pep 23.4, Total Protein 6.2, Albumin 3.2, Globulin 3.0, Albumin/ Globulin Ratio 1.1 05/10/17 14:13: PT 10.8, INR 0.95, APTT 27.0 05/10/17 14:13: WBC 13.6 H, RBC 4.17, Hgb 13.5, Hct 40.7, MCV 97.6 D, MCH 32.4 , MCHC 33.2, RDW 14.4, Plt Count 394, MPV 9.6, Gran % 66.8, Lymph % (Auto) 25.8 , [place] % (Auto) 6.9 H, Eos % (Auto) 0.3 L, Baso % (Auto) 0.2, Gran # 9.08 H, Lymph # 3.5 H, [place] # 0.9 H, Eos # 0.0, Baso # 0.03, ESR 18 - RAD Interpretation Radiology Orders: 05/10/17 13:46 CHEST PORTABLE [RAD] Stat 05/10/17 13:51 HAND RIGHT 3 VIEWS [RAD] Stat - Medication Orders Current Medication Orders: Magnesium Sulfate 2 gm/ Sodium (Chloride) 104 mls @ 102 mls/hr IVPB ONCE ONE Stop: 05/10/17 23:31 Discontinued Medications Albuterol/Ipratropium (Duoneb 3 Mg/0.5 Mg (3 Ml) Ud) 3 ml IH Q15M JACK Stop: 05/10/17 14:31 Last Admin: 05/10/17 16:47 Dose: 3 ml Sodium Chloride (Sodium Chloride 0.9%) 1,000 mls @ 999 mls/hr IV .Q1H1M STA Stop: 05/10/17 14:52 Last Admin: 05/10/17 14:33 Dose: 999 mls/hr eMAR Start Stop Document 05/10/17 14:33 MS (Rec: 05/10/17 14:33 MS [id number]) Intravenous Solution Start Date 05/10/17 Start Time 14:33 End Date 05/10/17 End time 15:33 Total Infusion Time 60 Vancomycin HCl (Vancomycin 1gm) 1 gm in 250 mls @ 167 mls/hr IVPB STAT STA PRN Reason: Protocol Stop: 05/10/17 15:15 Last Admin: 05/10/17 16:44 Dose: 167 mls/hr eMAR Start Stop Document 05/10/17 16:44 HI (Rec: 05/10/17 16:44 HI [id number]) Intravenous Solution Start Date 05/10/17 Start Time 16:44 Piperacillin Sod/Tazobactam Sod (Zosyn 4.5 Gm In Ns 100ml) 4.5 gm in 100 mls @ 200 mls/hr IVPB STAT STA PRN Reason: Protocol Stop: 05/10/17 14:15 Last Admin: 05/10/17 14:32 Dose: 200 mls/hr eMAR Start Stop Document 05/10/17 14:32 MS (Rec: 05/10/17 14:32 MS [id number]) Intravenous Solution Start Date 05/10/17 Start Time 14:32 End Date 05/10/17 End time 15:02 Total Infusion Time 30 Lorazepam (Ativan) 1 mg IVP ONCE ONE PRN Reason: Protocol Stop: 05/10/17 17:22 Last Admin: 05/10/17 17:33 Dose: 1 mg IVP Administration Document 05/10/17 17:33 HI (Rec: 05/10/17 17:33 HI [id number]) Charges for Administration # of IVP Administrations 1 Methylprednisolone (Solu-Medrol) 125 mg IVP STAT STA Stop: 05/10/17 13:54 Last Admin: 05/10/17 14:32 Dose: 125 mg IVP Administration Document 05/10/17 14:32 MS (Rec: 05/10/17 14:32 MS [id number]) Charges for Administration # of IVP Administrations 1 Thiamine HCl (Vitamin B1 Inj) 100 mg IV STAT STA Stop: 05/10/17 17:23 Last Admin: 05/10/17 17:44 Dose: 100 mg eMAR Start Stop Document 05/10/17 17:44 HI (Rec: 05/10/17 17:44 HI [id number]) Intravenous Solution Start Date 05/10/17 Start Time 17:44 Disposition/Present on Arrival - Present on Arrival Any Indicators Present on Arrival: No History of DVT/PE: No History of Uncontrolled Diabetes: No Urinary Catheter: No History of Decub. Ulcer: No History Surgical Site Infection Following: None - Disposition Have Diagnosis and Disposition been Completed?: Yes Diagnosis: Asthma exacerbation, Cellulitis Disposition: HOSPITALIZED Disposition Time: 22:46 Patient Plan: Admission Patient Problems: Current Active Problems Problem Status Onset Asthma attack Acute Cellulitis Acute Condition: STABLE Discharge Instructions (ExitCare): Cellulitis (ED) Forms: [employer] (Armenian)
[2017-05-10] MEDS ORDERED: Vancomycin 1gm in NS 250ml 1 GM/250 ML BAG IVPB STA (13:46)
[2017-05-10] MEDS ORDERED: Piperacill/Tazo 4.5gm in NS 4.5 GM/100 ML BAG IVPB STA (13:46)
[2017-05-10] MEDS ORDERED: Sodium Chloride 0.9% 1,000 ML IV STA (13:52)
[2017-05-10 14:22] LABS: ARTERIAL BLOOD GAS HCO3 32.8 mmol/L (21-28); ARTERIAL BLOOD GAS O2 SAT 97.2 % (95-98); ARTERIAL BLOOD GAS PCO2 44 mm/Hg (35-45); ARTERIAL BLOOD GAS PH 7.48 (7.35-7.45); ARTERIAL BLOOD GAS TCO2 34.2 mmol.L (22-28)
[2017-05-10] MEDS: Albuterol-Ipratrop 3 mg / 0.5 (3 ml) UD IH SCH ×3 (14:30→16:47)
[2017-05-10 14:36] LABS: BASO # 0.03 K/mm3 (0.0-2.0); BASO % 0.2 % (0.0-3.0); EOS % 0.3 % (1.5-5.0); GRAN # 9.08 (1.4-6.5); GRAN % 66.8 % (50.0-68.0); HEMOGLOBIN 13.5 g/dL (12.0-16.0); LYMPH # 3.5 (1.2-3.4); LYMPH % 25.8 % (22.0-35.0); MEAN CELL VOLUME 97.6 fl (80.0-105.0); MEAN CORPUSCULAR HEMOGLOBIN 32.4 pg (25.0-35.0); MEAN CORPUSCULAR HGB CONC 33.2 g/dl (31.0-37.0); MEAN PLATELET VOLUME 9.6 fl (7.0-11.0); MONO # 0.9 (0.1-0.6); MONO % 6.9 % (1.0-6.0); RBC 4.17 10^6/uL (3.5-6.1); RED CELL DISTRIBUTION WIDTH 14.4 % (11.5-14.5); WHITE BLOOD COUNT 13.6 10^3/ul (4.5-11.0)
[2017-05-10 15:12] LABS: INR 0.95 (0.93-1.08); PROTHROMBIN TIME 10.8 SECONDS (9.4-12.5)
[2017-05-10 15:54] LABS: URINE APPEARANCE CLEAR (CLEAR); URINE BILIRUBIN NEGATIVE (NEGATIVE); URINE BLOOD TRACE-INTACT (NEGATIVE); URINE COLOR YELLOW (YELLOW); URINE GLUCOSE (UA) NEGATIVE (NEGATIVE); URINE LEUKOCYTE ESTERASE NEGATIVE Leu/uL (NEGATIVE); URINE NITRATE NEGATIVE (NEGATIVE); URINE PROTEIN NEGATIVE mg/dL (<30 mg/dL)
[2017-05-10 16:09] LABS: URINE RBC 0 - 2 /hpf (0-2); URINE WBC NEGATIVE /hpf (0-6)
[2017-05-10] MEDS ORDERED: Thiamine 100 mg/ml Inj IV STA (17:22)
[2017-05-10 18:37] LABS: BLOOD UREA NITROGEN 5 mg/dL (7-21); GFR AFRICAN-AMERICAN > 60; GFR NON-AFRICAN AMERICAN > 60
[2017-05-10 18:38] LABS: ALB/GLOB RATIO 1.1 (1.1-1.8); ALT/SGPT 116 U/L (7-56); AST/SGOT 119 U/L (14-36); B-TYPE NATRIURETIC PEPTIDE 23.4 pg/mL (0-450); CALCIUM 8.2 mg/dL (8.4-10.5); MAGNESIUM 1.6 mg/dL (1.7-2.2)
[2017-05-10 18:39] LABS: TROPONIN I < 0.01 ng/mL
[2017-05-10 20:45] LABS: ALBUMIN 3.2 g/dL (3.0-4.8)
--- NOTE | 2017-05-10 21:30 | CARD ---
APPROVED REPORT EKG Measurement Heart [id number] <Conclusion> Sinus tachycardia Otherwise normal ECG
[2017-05-10] MEDS ORDERED: Magnesium Sulfate 2 GM in Sodium Chloride 0.9% 100 ML IVPB ONE (22:30)
--- NOTE | 2017-05-10 23:18 | CP.PCM.HP ---
History of Present Illness - History of Present Illness History of Present Illness: CC: Right Hand Pain and SOB Subjective: HPI: Patient is a 46 year old female with past medical history of COPD, asthma, alcohol/heroin abuse, and hepatitis C with liver cirrhosis who presents to the emergency department for evaluation and treatment of right hand pain and SOB. States the right hand pain began 10 days ago and remains localized. Associated with swelling, erythema, central skin color change. Also admits to SOB which began yesterday. Admits to intermittent fever and chills. Denies remitting and exacerbating factors. Patient denies specific provoking events. Denies recent travel and sick contacts. Patient denies intractable headache, dizziness, blurry vision, ringing in the ears, chest pain, shortness of breath, abdominal pain, nausea, vomiting, diarrhea, constipation, and urinary symptoms. ROS: 12 point review of systems negative except as indicated in HPI PMH: COPD, asthma, alcohol/heroin abuse, and hepatitis C with liver cirrhosis PSH: Appendectomy, tonsillectomy Family History: Father-DM2 Social History: Smokes 1/2 pk/day for >30 years, drinks 5-6 cans of four frances daily (14% alcohol x 24 ounces), reports prior IVDU, usually snorts heroin 2- 10 bags weekly as not used illicit drugs in past 2 weeks; homeless Allergies: NKDA Home Medications: As per MAR PMD: none Physical Examination: - Constitutional Appears: Non-toxic, No Acute Distress - Head Exam Head Exam: atraumatic, normocephalic - Eye Exam Eye Exam: Normal appearance, PERRL. absent: Scleral icterus - ENT Exam ENT Exam: Mucous Membranes Moist - Neck Exam Neck exam: Normal Inspection - Respiratory Exam Respiratory Exam: diminished breath sounds bilaterally; Normal Breathing Pattern - Cardiovascular Exam Cardiovascular Exam: +S1, +S2. absent: Gallop, JVD - GI/Abdominal Exam GI & Abdominal Exam: Normal Bowel Sounds, absent: Distended, Guarding, Pulsatile Mass, Rebound, Rigid - Extremities Exam Extremities exam: Negative for: calf tenderness - Neurological Exam Neurological exam: Patient is awake, alert, responds to verbal stimuli, answers questions appropriately, follows commands, and moves extremities past midline - Psychiatric Exam Psychiatric exam: Normal Affect, Normal Mood - Skin Skin Exam: right hand swelling, erythema, central eschar Assessment and Plan: Patient is a 46 year old female with past medical history of COPD, asthma, alcohol/heroin abuse, and hepatitis C with liver cirrhosis who was admitted for evaluation and treatment of right hand pain and SOB. Cellulitis of Right Hand - demarcate affected area - c/w vancomycin and zosyn - xray of right hand ordered- official read pending at time of admission - infectious disease consulted- appreciate recommendations Sepsis - greater than 2/4 SIRS criteria met in setting of infectious source - blood cultures x 2, urine culture ordered and pending - IVF LR @ 75 - vancomycin and zosyn Acute on Chronic COPD Exacerbation - duobnebs q4 scheduled - solumedrol 40mg IV q12 - oxygen supplementation 2 L via NC - abg reviewed and appreciated, repeat abg in AM Ethanol Abuse, Potential Withdrawal - CIWA - high risk fall precautions - seizure precautions - ativan 1mg q6 prn withdrawl symptoms - consider adding librium or geodon if sxs are not controlled - thiamine given in ED - multivitamin, thiamine, and folate supplement starting tomorrow Elevated LFTs - 2/2 to ETOH use vs Hep C - avoid hepatotoxins - monitor closely via CMP Hx of Illicit Drug Abuse - cessation advised - patient education provided on dangers of illicit drug abuse Prophylaxis - DVT ppx- scds - GI ppx- famotidine Patient case discussed with and plan approved by attending physician. 05/10/17 22:57 Present on Admission - Present on Admission Any Indicators Present on Admission: No Past Patient History - Infectious Disease Hx of Infectious Diseases: None - Tetanus Immunizations Tetanus Immunization: Unknown - Past Medical History & Family History Past Medical History?: Yes - Past Social History Smoking Status: Current Some Days Smoker - CARDIAC Hx Angina: No Hx Pacemaker: No - PULMONARY Hx Respiratory Disorders: Yes (CURRENTLY SMOKES CIGARETTES 10 CIG A DAY) Hx Chronic Obstructive Pulmonary Disease (COPD): Yes - NEUROLOGICAL Hx Neurological Disorder: Yes (CLOGGED EARS) HX Cerebrovascular Accident: No - HEENT Hx HEENT Problems: No - RENAL Hx Chronic Kidney Disease: No - ENDOCRINE/METABOLIC Hx Endocrine Disorders: Yes Hx Hypothyroidism: Yes - HEMATOLOGICAL/ONCOLOGICAL Hx Blood Disorders: No Hx Cancer: No - INTEGUMENTARY Hx Dermatological Problems: Yes Other/Comment: multiple bruises left knee, swelling right knee and pain to both knees from fall 2 wks ago, multiple eccymotic arreas to left arm, small scab right arm, 2.5cm x 2cm deep red growth to rle "I have had it for years." surgical scar mid lower abd, eccymotic area to lower abd, umbilical hernia noted - MUSCULOSKELETAL/RHEUMATOLOGICAL Hx Musculoskeletal Disorders: Yes Hx Falls: Yes (fell 2 wks ago) - GASTROINTESTINAL Hx Gastrointestinal Disorders: Yes Hx Pancreatitis: (pt denies pancreatitis) Other/Comment: Umbilical hernia /cirrhosis/ distended abd - GENITOURINARY/GYNECOLOGICAL Hx Genitourinary Disorders: No Hx Sexually Transmitted Disorders: (pt denies trichomonas) - PSYCHIATRIC Hx Psychophysiologic Disorder: Yes Hx Anxiety: Yes Hx Depression: Yes Hx Substance Use: Yes (H/O IVDU,SNORTS HEROINE NEVER BEEN IN A PROGRAM) Other/Comment: alcohol drinks 4 or 5 24 oz cans of 4-frances a day, 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 - SURGICAL HISTORY Hx Appendectomy: Yes Hx Mastectomy: No - ANESTHESIA Hx Anesthesia: Yes Hx Anesthesia Reactions: No Hx Malignant Hyperthermia: No Meds Allergies/Adverse Reactions: Allergies Allergy/AdvReac Type Severity Reaction Status Date / Time No Known Allergies Allergy Verified 05/10/17 13:21 Results - Vital Signs Recent Vital Signs: Last Vital Signs Temp 98.3 F 05/10/17 15:41 Pulse 99 H 05/10/17 20:15 Resp 16 05/10/17 20:15 BP 137/89 05/10/17 20:15 Pulse Ox 96 05/10/17 20:15 - Labs Result Diagrams: 05/10/17 14:13 05/10/17 14:13 Labs: Laboratory Results - last 24 hr 05/10/17 05/10/17 05/10/17 14:13 14:13 14:13 WBC 13.6 H RBC 4.17 Hgb 13.5 Hct 40.7 MCV 97.6 D MCH 32.4 MCHC 33.2 RDW 14.4 Plt Count 394 MPV 9.6 Gran % 66.8 Lymph % (Auto) 25.8 [place] % (Auto) 6.9 H Eos % (Auto) 0.3 L Baso % (Auto) 0.2 Gran # 9.08 H Lymph # 3.5 H [place] # 0.9 H Eos # 0.0 Baso # 0.03 ESR 18 PT 10.8 INR 0.95 APTT 27.0 pCO2 pO2 HCO3 ABG pH ABG Total CO2 ABG O2 Saturation ABG Base Excess ABG Potassium Glucose Lactate FiO2 Sodium 139 Potassium 3.5 L Chloride 99 Carbon Dioxide 29 Anion Gap 14 BUN 5 L Creatinine 0.5 L Est GFR ( Amer) > 60 Est GFR (Non-Af Amer) > 60 Random Glucose 79 Calcium 8.2 L Phosphorus 2.9 Magnesium 1.6 L Total Bilirubin 0.6 AST 119 H D ALT 116 H Alkaline Phosphatase 104 Lactate Dehydrogenase 808 H Total Creatine Kinase 27 L Troponin I < 0.01 NT-Pro-B Natriuret Pep 23.4 Total Protein 6.2 Albumin 3.2 Globulin 3.0 Albumin/Globulin Ratio 1.1 Arterial Blood Potassium Urine Color Urine Appearance Urine pH Ur Specific [place] Urine Protein Urine Glucose (UA) Urine Ketones Urine Blood Urine Nitrate Urine Bilirubin Urine Urobilinogen Ur Leukocyte Esterase Urine RBC Urine WBC Ur Epithelial Cells Alcohol, Quantitative 05/10/17 05/10/17 05/10/17 14:13 14:15 15:02 WBC RBC Hgb Hct MCV MCH MCHC RDW Plt Count MPV Gran % Lymph % (Auto) [place] % (Auto) Eos % (Auto) Baso % (Auto) Gran # Lymph # [place] # Eos # Baso # ESR PT INR APTT pCO2 44 pO2 66.0 L HCO3 32.8 H ABG pH 7.48 H ABG Total CO2 34.2 H ABG O2 Saturation 97.2 ABG Base Excess 8.2 H ABG Potassium 2.5 L* Glucose 76 Lactate 1.7 FiO2 21.0 Sodium 142.0 Potassium Chloride 103.0 Carbon Dioxide Anion Gap BUN Creatinine Est GFR ( Amer) Est GFR (Non-Af Amer) Random Glucose Calcium Phosphorus Magnesium Total Bilirubin AST ALT Alkaline Phosphatase Lactate Dehydrogenase Total Creatine Kinase Troponin I NT-Pro-B Natriuret Pep Total Protein Albumin Globulin Albumin/Globulin Ratio Arterial Blood Potassium 2.5 L* Urine Color Yellow Urine Appearance Clear Urine pH 8.0 Ur Specific [place] 1.010 Urine Protein Negative Urine Glucose (UA) Negative Urine Ketones Negative Urine Blood Trace-intact H Urine Nitrate Negative Urine Bilirubin Negative Urine Urobilinogen 1.0 H Ur Leukocyte Esterase Negative Urine RBC 0 - 2 Urine WBC Negative Ur Epithelial Cells 1 - 3 Alcohol, Quantitative 47 H
[2017-05-10] MEDS ORDERED: Albuterol-Ipratrop 3 mg / 0.5 (3 ml) UD IH STA (23:21)
[2017-05-10 23:32] LABS: BARBITURATES, UR NEGATIVE (NEGATIVE); BENZODIAZEPINES, UR NEGATIVE (NEGATIVE); OPIATES, UR NEGATIVE (NEGATIVE); PHENCYCLIDINE, UR NEGATIVE (NEGATIVE)
[2017-05-10] MEDS ORDERED: Multivitamin (MVI) 10 ML, Thiamine 100 MG, Folic Acid 1 MG in Sodium Chloride 0.9% 1,00... IV ONE (23:49)
[2017-05-11 00:32] LABS: ARTERIAL BLOOD GAS HCO3 29.7 mmol/L (21-28); ARTERIAL BLOOD GAS O2 SAT 96.6 % (95-98); ARTERIAL BLOOD GAS PCO2 39 mm/Hg (35-45); ARTERIAL BLOOD GAS PH 7.49 (7.35-7.45); ARTERIAL BLOOD GAS TCO2 30.9 mmol.L (22-28)
[2017-05-11] MEDS: Lactated Ringer's 1,000 ML IV SCH (00:46)
[2017-05-11] MEDS: Piperacill/Tazo 4.5gm in NS 4.5 GM/100 ML BAG IVPB SCH ×2 (00:58→06:10)
[2017-05-11 05:22] VITALS: BMI 25.7
[2017-05-11] MEDS: Albuterol-Ipratrop 3 mg / 0.5 (3 ml) UD IH SCH ×2 (06:02→07:53)
[2017-05-11 06:50] LABS: EOS % 0.1 % (1.5-5.0); GRAN # 12.98 (1.4-6.5); HEMOGLOBIN 12.1 g/dL (12.0-16.0); LYMPH # 1.7 (1.2-3.4); LYMPH % 10.5 % (22.0-35.0); MEAN CORPUSCULAR HEMOGLOBIN 31.6 pg (25.0-35.0); MEAN CORPUSCULAR HGB CONC 31.6 g/dl (31.0-37.0); MEAN PLATELET VOLUME 9.7 fl (7.0-11.0); MONO # 1.2 (0.1-0.6); MONO % 7.4 % (1.0-6.0); RBC 3.83 10^6/uL (3.5-6.1); RED CELL DISTRIBUTION WIDTH 14.7 % (11.5-14.5); WHITE BLOOD COUNT 15.8 10^3/ul (4.5-11.0)
--- NOTE | 2017-05-11 07:14 | RAD ---
HISTORY: sob COMPARISON: Chest x-ray performed 04/27/17 TECHNIQUE: Chest, one view. FINDINGS: LUNGS: Right hilar prominence. Mild bibasilar atelectasis. Please note that chest x-ray has limited sensitivity for the detection of pulmonary masses. PLEURA: No significant pleural effusion identified. No definite pneumothorax . CARDIOVASCULAR: Borderline cardiomegaly. OSSEOUS STRUCTURES: No acute osseous abnormality identified. VISUALIZED UPPER ABDOMEN: Unremarkable. OTHER FINDINGS: None. IMPRESSION: Right hilar prominence. Mild bibasilar atelectasis.
--- NOTE | 2017-05-11 07:16 | RAD ---
PROCEDURE: Right Hand Radiographs. HISTORY: HAND INFECTION R/O FB COMPARISON: None available. FINDINGS: BONES: No acute displaced fracture. JOINTS: No dislocation. SOFT TISSUES: Marked soft tissue swelling. No evidence of radiopaque foreign body. OTHER FINDINGS: None. IMPRESSION: Marked soft tissue swelling. No evidence of radiopaque foreign body.
[2017-05-11 07:38] LABS: ALT/SGPT 101 U/L (7-56); AST/SGOT 63 U/L (14-36); BLOOD UREA NITROGEN 9 mg/dL (7-21); CALCIUM 8.6 mg/dL (8.4-10.5); GFR AFRICAN-AMERICAN > 60; GFR NON-AFRICAN AMERICAN > 60; MAGNESIUM 2.3 mg/dL (1.7-2.2)
[2017-05-11] MEDS ORDERED: Vancomycin 1gm in NS 250ml 1 GM/250 ML BAG IVPB SCH ×2 (10:00→13:30)
[2017-05-11] MEDS: MethylPREDNISolone 40 mg Vial IVP SCH ×2 (10:11→21:34)
[2017-05-11] MEDS: Multivitamin Therapeutic Tab PO SCH (10:12)
--- NOTE | 2017-05-11 10:12 | CP.PCM.PN ---
<Imer Ware - Last Filed: 05/11/17 18:47> Subjective - Date & Time of Evaluation Date of Evaluation: 05/11/17 Time of Evaluation: 10:12 - Subjective Subjective: Imer Ware PGY1 IM Progress Note Patient was seen and examined bedside. She states that she is short of breath and that the weather changes set her off. she denies fevers/chills, chest pain, n/v/d. states last ETOH drink was yesterday and that she feels tremors like she' s going through withdrawals. states that the bruise on her R arm is from ED visit where the IV blew the vein. she states she snorts heroin and last time was 2 weeks ago, but denies any IV use. Objective - Vital Signs/Intake and Output Vital Signs (last 24 hours): Temp Pulse Resp BP Pulse Ox 97.6 F 83 24 155/110 H 98 05/11/17 07:30 05/11/17 07:30 05/11/17 07:30 05/11/17 07:30 05/11/17 07:30 Intake and Output: 05/11/17 05/11/17 06:59 18:59 Intake Total 480 Balance 480 - Medications Medications: Current Medications Albuterol/Ipratropium (Duoneb 3 Mg/0.5 Mg (3 Ml) Ud) 3 ml IH [id number] [facility] Last Admin: 05/11/17 07:53 Dose: 3 ml Famotidine (Pepcid) 40 mg PO HS [facility] Folic Acid (Folic Acid) 1 mg PO DAILY [facility] Lactated Ringer's (Lactated Ringer's) 1,000 mls @ 75 mls/hr IV .[id number] [facility] Last Admin: 05/11/17 00:46 Dose: 75 mls/hr Vancomycin HCl (Vancomycin 1gm) 1 gm in 250 mls @ 167 mls/hr IVPB DAILY [facility] PRN Reason: Protocol Lorazepam (Ativan) 1 mg IVP Q6H PRN; Protocol PRN Reason: Symptoms of alcohol withdrawl Last Admin: 05/11/17 06:04 Dose: 1 mg Methylprednisolone (Solu-Medrol) 40 mg IVP Q12 [facility] Multivitamins (Thera Tab) 1 tab PO 0800 [facility] Thiamine HCl (Vitamin B1 Tab) 100 mg PO DAILY [facility] - Labs Labs: 05/11/17 06:00 05/11/17 06:00 PT 10.8 SECONDS (9.4-12.5) 05/10/17 14:13 INR 0.95 (0.93-1.08) 05/10/17 14:13 APTT 27.0 Seconds (25.1-36.5) 05/10/17 14:13 - Constitutional Appears: Well, Toxic, No Acute Distress, Unkempt - Head Exam Head Exam: NORMAL INSPECTION Additional comments: cushinoid appearance - Eye Exam Eye Exam: EOMI, Normal appearance - ENT Exam ENT Exam: Mucous Membranes Moist - Neck Exam Neck Exam: Normal Inspection - Respiratory Exam Respiratory Exam: Wheezes (diffuse b/l), NORMAL BREATHING PATTERN. absent: Rales, Rhonchi, Respiratory Distress - Cardiovascular Exam Cardiovascular Exam: Tachycardia, REGULAR RHYTHM, +S1, +S2 - GI/Abdominal Exam GI & Abdominal Exam: Soft, Normal Bowel Sounds. absent: Distended, Tenderness - Extremities Exam Extremities Exam: Full ROM, Normal Inspection. absent: Pedal Edema Additional comments: tremors with outstretched hands - Back Exam Back Exam: NORMAL INSPECTION - Neurological Exam Neurological Exam: Alert, Awake, Oriented x3 - Psychiatric Exam Psychiatric exam: Normal Affect, Normal Mood - Skin Skin Exam: Normal Color, Warm Assessment and Plan - Assessment and Plan (Free Text) Assessment: 46 year old female with past medical history of COPD, asthma, alcohol/heroin abuse, and hepatitis C (known and untreated) with liver cirrhosis who was admitted for evaluation and treatment of right hand pain and SOB. Plan: 1. SIRS criteria - Tachycardia (likely 2/2 ETOH withdrawals) and leukocytosis (chronically elevated) - lactate not elevated - need to rule out cellulitis of R hand - c/w vancomycin and zosyn - xray of right hand showed marked soft tissue swelling - infectious disease consulted- appreciate recommendations - blood cultures x 2, urine culture ordered and pending - IVF LR @ 75 2. Acute on Chronic COPD Exacerbation - CXR showed R hilar prominence; mild b/l atelectasis - xopenex [facility] and PRN - singulair - solumedrol 40mg IV q12 - oxygen supplementation 2 L via NC 3. Ethanol Abuse, Potential Withdrawal - CIWA protocol - high risk fall precautions - seizure precautions - ativan 1mg q2 prn withdrawl symptoms - ativan 1mg q4 craig - consider adding librium or geodon if sxs are not controlled - Banana bag started - multivitamin, thiamine, and folate supplement starting tomorrow - trazodone prn hs 4. Elevated LFTs - 2/2 to ETOH use and Hep C (known and untreated) - avoid hepatotoxins - monitor closely via CMP 5. Hx of Illicit Drug Abuse - cessation advised - patient education provided on dangers of illicit drug abuse 6. Prophylaxis - DVT ppx- scds - GI ppx- famotidine Patient was seen, examined and discussed with attending, Dr. Padma Ware PGY1 Pager # [phone] <Junaid Rouse - Last Filed: 05/12/17 17:08> Objective - Vital Signs/Intake and Output Vital Signs (last 24 hours): Temp Pulse Resp BP Pulse Ox 98.2 F 97 H 13 146/96 H 97 05/12/17 16:29 05/12/17 16:29 05/12/17 16:29 05/12/17 16:29 05/12/17 16:29 Intake and Output: 05/12/17 05/12/17 06:59 18:59 Intake Total 2400 840 Balance 2400 840 - Medications Medications: Current Medications Famotidine (Pepcid) 40 mg PO HS [facility] Last Admin: 05/11/17 21:35 Dose: 40 mg Folic Acid (Folic Acid) 1 mg PO DAILY [facility] Last Admin: 05/12/17 10:44 Dose: 1 mg Lactated Ringer's (Lactated Ringer's) 1,000 mls @ 75 mls/hr IV .[id number] [facility] Last Admin: 05/12/17 06:32 Dose: 75 mls/hr Vancomycin HCl (Vancomycin 1gm) 1 gm in 250 mls @ 167 mls/hr IVPB Q12 [facility] PRN Reason: Protocol Last Admin: 05/12/17 10:44 Dose: 167 mls/hr Levalbuterol HCl (Xopenex) 0.63 mg IH [id number] PRN PRN Reason: Shortness of Breath Last Admin: 05/11/17 16:16 Dose: 0.63 mg Levalbuterol HCl (Xopenex) 0.63 mg IH [id number] [facility] Last Admin: 05/12/17 13:27 Dose: 0.63 mg Lorazepam (Ativan) 1 mg IVP Q2H PRN; Protocol PRN Reason: Anxiety Lorazepam (Ativan) 1 mg IVP Q6H [facility] PRN Reason: Protocol Methylprednisolone (Solu-Medrol) 40 mg IVP Q12 [facility] Last Admin: 05/12/17 10:42 Dose: 40 mg Montelukast Sodium (Singulair) 10 mg PO HS [facility] Last Admin: 05/11/17 21:34 Dose: 10 mg Multivitamins (Thera Tab) 1 tab PO 0800 [facility] Last Admin: 05/12/17 08:25 Dose: 1 tab Thiamine HCl (Vitamin B1 Tab) 100 mg PO DAILY [facility] Last Admin: 05/12/17 10:44 Dose: 100 mg Trazodone HCl (Desyrel) 50 mg PO HS PRN PRN Reason: Sleep Last Admin: 05/11/17 22:07 Dose: 50 mg - Labs Labs: 05/12/17 06:00 05/12/17 06:00 PT 10.8 SECONDS (9.4-12.5) 05/10/17 14:13 INR 0.95 (0.93-1.08) 05/10/17 14:13 APTT 27.0 Seconds (25.1-36.5) 05/10/17 14:13 Attending/Attestation - Attestation I have personally seen and examined this patient.: Yes I have fully participated in the care of the patient.: Yes I have reviewed all pertinent clinical information, including history, physical exam and plan: Yes Notes (Text): 05/12/17 17:04 Attending note; Patient seen and examined with resident. Patient is a 46 year old female with history of tobacco use, COPD, alcohol and heroin abuse, and hepatitis C is admitted for COPD exacerbation and right hand cellulitis. currently patient on vancomycin. Cellulitis is resolving. COPD; continue oxygen prn.continue Xopenex, IV Solu-Medrol. Elevated LFTs; secondary to alcohol abuse. Improving slowly. . Alcohol cessation/smoking cessation is strongly advised. active smoking; smoking cessation is strongly advised. Homelessness. Upon discharge patient will follow up with PMD of choice or [facility] clinic. prognosis is poor secondary to continue smoking, alcohol abuse, drug abuse and noncompliance with follow-up.
[2017-05-11] MEDS ORDERED: Folic Acid 1 MG, Thiamine 100 MG, Multivitamin (MVI) 10 ML in Dextrose 5% In Water 1,00... IV SCH (10:15)
[2017-05-11] MEDS ORDERED: Levalbuterol 0.63 MG/3 ML Inhal Soln UD IH PRN (10:17)
[2017-05-11] MEDS: Levalbuterol 0.63 MG/3 ML Inhal Soln UD IH SCH ×2 (13:35→19:43)
[2017-05-11] MEDS: Vancomycin 1gm in NS 250ml 1 GM/250 ML BAG IVPB SCH (21:32)
--- NOTE | 2017-05-11 22:06 | CON ---
DATE: 05/11/2017 LOCATION: The patient is in room 562, bed 1. CHIEF COMPLAINT: Right hand infection. HISTORY OF PRESENT ILLNESS: This is a 46-year-old female with a history of chronic obstructive lung disease, asthma on multiple hospitalizations and recent hospitalization and the patient also with hepatitis C and polysubstance abuse, hyperlipidemia, tobacco use, history of tonsillectomy and chest tube placement for many years ago for pneumothorax, now was admitted with right hand erythema. The patient states that it happened during the last hospitalization. The patient denies any fevers or any chills. She is complaining of cough and shortness of breath. No abdominal pain, diarrhea, or constipation. No bright red blood per rectum. PAST MEDICAL HISTORY: Significant for chronic obstructive lung disease, hepatitis C, asthma, and multiple hospitalizations and recent hospitalization and polysubstance abuse. PAST SURGICAL HISTORY: Significant for tonsillectomy. The patient also had a chest tube placement in the past for pneumothorax. The patient also had an appendectomy. ALLERGIES: THE PATIENT HAS NO KNOWN ALLERGIES. MEDICATIONS AT HOME: Not listed. PHYSICAL EXAMINATION: VITAL SIGNS: The patient's temperature is 98, heart rate of 101, respiratory rate of 22, blood pressure is 143/90, and oxygen saturation is 96%. HEENT: Unremarkable. NECK: Supple. LUNGS: Have decreased breath sounds. HEART: Normal S1 and S2. ABDOMEN: Soft and nontender. No rebound. No guarding. EXTREMITIES: Right hand reveals erythema and central dry necrotic area. She has full function of her head, fully extend and flexes her fingers. There is no discharge of the hand at the dorsum part of the hand. LABORATORY DATA: Reveals white count of 15,800, hemoglobin of 12, and platelets of 362. Coagulation is noted. Chemistries reveals BUN of 9 and creatinine of 0.5. White count of 15,800. Chest x-ray reveals right hilar prominence read by Dr. Pina Weir. Dr. Moraes's history and physical examination is reviewed. Dr. Willams report is . ASSESSMENT AND PLAN: This is a 46-year-old female with hepatitis C, liver cirrhosis, asthma, alcohol, and polysubstance abuse and with hyperlipidemia and multiple hospitalizations and recent hospitalization with tachycardia, heart rate of 101, respiratory rate of 22 and right hand erythema with sepsis with a right hand cellulitis and the patient started on vancomycin. We will check on the blood cultures and urine cultures. No discharge from the hand of culture. The patient is also started on Solu-Medrol. We will change the vancomycin from 1 g daily to 1 g twice daily. We will check on the patient's human immunodeficiency virus. The patient had human immunodeficiency virus test done in 2011. We will follow closely with you. Margarito Robert MD
[2017-05-12] MEDS: Levalbuterol 0.63 MG/3 ML Inhal Soln UD IH SCH ×4 (01:14→20:18)
[2017-05-12] MEDS: Lactated Ringer's 1,000 ML IV SCH ×2 (06:32→17:48)
[2017-05-12 07:08] LABS: BASO # 0.01 K/mm3 (0.0-2.0); BASO % 0.1 % (0.0-3.0); GRAN # 14.99 (1.4-6.5); HEMOGLOBIN 11.9 g/dL (12.0-16.0); LYMPH # 1.5 (1.2-3.4); LYMPH % 8.4 % (22.0-35.0); MEAN CELL VOLUME 101.9 fl (80.0-105.0); MEAN CORPUSCULAR HEMOGLOBIN 31.8 pg (25.0-35.0); MEAN CORPUSCULAR HGB CONC 31.2 g/dl (31.0-37.0); MEAN PLATELET VOLUME 10.8 fl (7.0-11.0); MONO # 0.8 (0.1-0.6); MONO % 4.5 % (1.0-6.0); RBC 3.74 10^6/uL (3.5-6.1); RED CELL DISTRIBUTION WIDTH 14.7 % (11.5-14.5); WHITE BLOOD COUNT 17.2 10^3/ul (4.5-11.0)
[2017-05-12 08:00] LABS: ALBUMIN 2.9 g/dL (3.0-4.8); ALT/SGPT 68 U/L (7-56); AST/SGOT 33 U/L (14-36); BLOOD UREA NITROGEN 13 mg/dL (7-21); CALCIUM 8.5 mg/dL (8.4-10.5); GFR AFRICAN-AMERICAN > 60; GFR NON-AFRICAN AMERICAN > 60
[2017-05-12] MEDS: Multivitamin Therapeutic Tab PO SCH (08:25)
[2017-05-12] MEDS: MethylPREDNISolone 40 mg Vial IVP SCH ×2 (10:42→21:23)
[2017-05-12] MEDS: Vancomycin 1gm in NS 250ml 1 GM/250 ML BAG IVPB SCH ×2 (10:44→21:23)
--- NOTE | 2017-05-12 13:19 | CP.PCM.PN ---
<JeanieImer - Last Filed: 05/12/17 16:54> Subjective - Date & Time of Evaluation Date of Evaluation: 05/12/17 Time of Evaluation: 07:19 - Subjective Subjective: Imer OcasioJeanie PGY1 IM Progress Note Patient was seen and examined at bedside. She states her breathing is slightly improved but she is still short of breath and wheezing and still feeling tremors. Denies chest pain, n/v/d, fevers/chills, and abdominal pain. Objective - Vital Signs/Intake and Output Vital Signs (last 24 hours): Temp Pulse Resp BP Pulse Ox 97.6 F 88 24 140/95 H 100 05/12/17 07:30 05/12/17 07:30 05/12/17 07:30 05/12/17 07:30 05/12/17 07:30 Intake and Output: 05/12/17 05/12/17 06:59 18:59 Intake Total 2400 Balance 2400 - Medications Medications: Current Medications Famotidine (Pepcid) 40 mg PO HS [facility] Last Admin: 05/11/17 21:35 Dose: 40 mg Folic Acid (Folic Acid) 1 mg PO DAILY [facility] Last Admin: 05/12/17 10:44 Dose: 1 mg Lactated Ringer's (Lactated Ringer's) 1,000 mls @ 75 mls/hr IV .[id number] [facility] Last Admin: 05/12/17 06:32 Dose: 75 mls/hr Vancomycin HCl (Vancomycin 1gm) 1 gm in 250 mls @ 167 mls/hr IVPB Q12 [facility] PRN Reason: Protocol Last Admin: 05/12/17 10:44 Dose: 167 mls/hr Levalbuterol HCl (Xopenex) 0.63 mg IH [id number] PRN PRN Reason: Shortness of Breath Last Admin: 05/11/17 16:16 Dose: 0.63 mg Levalbuterol HCl (Xopenex) 0.63 mg IH [id number] [facility] Last Admin: 05/12/17 07:47 Dose: 0.63 mg Lorazepam (Ativan) 1 mg IVP Q2H PRN; Protocol PRN Reason: Anxiety Lorazepam (Ativan) 1 mg IVP Q4H [facility] PRN Reason: Protocol Last Admin: 05/12/17 10:42 Dose: 1 mg Methylprednisolone (Solu-Medrol) 40 mg IVP Q12 [facility] Last Admin: 05/12/17 10:42 Dose: 40 mg Montelukast Sodium (Singulair) 10 mg PO HS [facility] Last Admin: 05/11/17 21:34 Dose: 10 mg Multivitamins (Thera Tab) 1 tab PO 0800 [facility] Last Admin: 05/12/17 08:25 Dose: 1 tab Thiamine HCl (Vitamin B1 Tab) 100 mg PO DAILY [facility] Last Admin: 05/12/17 10:44 Dose: 100 mg Trazodone HCl (Desyrel) 50 mg PO HS PRN PRN Reason: Sleep Last Admin: 05/11/17 22:07 Dose: 50 mg - Labs Labs: 05/12/17 06:00 05/12/17 06:00 PT 10.8 SECONDS (9.4-12.5) 05/10/17 14:13 INR 0.95 (0.93-1.08) 05/10/17 14:13 APTT 27.0 Seconds (25.1-36.5) 05/10/17 14:13 - Additional Findings Additional findings: - Constitutional Appears: Well, Toxic, No Acute Distress, Unkempt - Head Exam Head Exam: NORMAL INSPECTION Additional comments: cushinoid appearance - Eye Exam Eye Exam: EOMI, Normal appearance - ENT Exam ENT Exam: Mucous Membranes Moist - Neck Exam Neck Exam: Normal Inspection - Respiratory Exam Respiratory Exam: Wheezes (diffuse b/l), NORMAL BREATHING PATTERN. absent: Rales, Rhonchi, Respiratory Distress - Cardiovascular Exam Cardiovascular Exam: Tachycardia, REGULAR RHYTHM, +S1, +S2 - GI/Abdominal Exam GI & Abdominal Exam: Soft, Normal Bowel Sounds. absent: Distended, Tenderness - Extremities Exam Extremities Exam: Full ROM, Normal Inspection. absent: Pedal Edema Additional comments: tremors with outstretched hands - Back Exam Back Exam: NORMAL INSPECTION - Neurological Exam Neurological Exam: Alert, Awake, Oriented x3 - Psychiatric Exam Psychiatric exam: Normal Affect, Normal Mood - Skin Skin Exam: Normal Color, Warm Assessment and Plan - Assessment and Plan (Free Text) Assessment: 46 year old female with past medical history of COPD, asthma, alcohol/heroin abuse, and hepatitis C (known and untreated) with liver cirrhosis who was admitted for evaluation and treatment of right hand pain and SOB. Plan: 1. SIRS criteria - Tachycardia (likely 2/2 ETOH withdrawals) and leukocytosis (chronically elevated) - need to rule out cellulitis of R hand - lactate not elevated - c/w vancomycin - xray of right hand showed marked soft tissue swelling - infectious disease consulted- appreciate recommendations - blood cultures x 2, urine culture negative x 48hrs - IVF LR @ 75 2. Acute on Chronic COPD Exacerbation - CXR showed R hilar prominence; mild b/l atelectasis - xopenex [facility]IG and PRN - singulair - solumedrol 40mg IV q12 - oxygen supplementation 2 L via NC 3. Ethanol Abuse, Potential Withdrawal - CIWA protocol - high risk fall precautions - seizure precautions - ativan 1mg q2 prn withdrawl symptoms, has not been required - ativan 1mg q4 craig decreased to q6 due to not needing PRN doses - consider adding librium or geodon if sxs are not controlled - multivitamin, thiamine, and folate supplements - trazodone prn hs 4. Elevated LFTs - 2/2 to ETOH use and Hep C (known and untreated) - avoid hepatotoxins - monitor closely via CMP 5. Hx of Illicit Drug Abuse - cessation advised - patient education provided on dangers of illicit drug abuse 6. Prophylaxis - DVT ppx- scds - GI ppx- famotidine Patient was seen, examined and discussed with attending, Dr. Padma Ware PGY1 Pager # [phone] <Junaid Rouse - Last Filed: 05/12/17 17:09> Objective - Vital Signs/Intake and Output Vital Signs (last 24 hours): Temp Pulse Resp BP Pulse Ox 98.2 F 97 H 13 146/96 H 97 05/12/17 16:29 05/12/17 16:29 05/12/17 16:29 05/12/17 16:29 05/12/17 16:29 Intake and Output: 05/12/17 05/12/17 06:59 18:59 Intake Total 2400 840 Balance 2400 840 - Medications Medications: Current Medications Famotidine (Pepcid) 40 mg PO HS [facility] Last Admin: 05/11/17 21:35 Dose: 40 mg Folic Acid (Folic Acid) 1 mg PO DAILY [facility] Last Admin: 05/12/17 10:44 Dose: 1 mg Lactated Ringer's (Lactated Ringer's) 1,000 mls @ 75 mls/hr IV .[id number] [facility] Last Admin: 05/12/17 06:32 Dose: 75 mls/hr Vancomycin HCl (Vancomycin 1gm) 1 gm in 250 mls @ 167 mls/hr IVPB Q12 [facility] PRN Reason: Protocol Last Admin: 05/12/17 10:44 Dose: 167 mls/hr Levalbuterol HCl (Xopenex) 0.63 mg IH [id number] PRN PRN Reason: Shortness of Breath Last Admin: 05/11/17 16:16 Dose: 0.63 mg Levalbuterol HCl (Xopenex) 0.63 mg IH [id number] [facility] Last Admin: 05/12/17 13:27 Dose: 0.63 mg Lorazepam (Ativan) 1 mg IVP Q2H PRN; Protocol PRN Reason: Anxiety Lorazepam (Ativan) 1 mg IVP Q6H [facility] PRN Reason: Protocol Methylprednisolone (Solu-Medrol) 40 mg IVP Q12 [facility] Last Admin: 05/12/17 10:42 Dose: 40 mg Montelukast Sodium (Singulair) 10 mg PO HS [facility] Last Admin: 05/11/17 21:34 Dose: 10 mg Multivitamins (Thera Tab) 1 tab PO 0800 [facility] Last Admin: 05/12/17 08:25 Dose: 1 tab Thiamine HCl (Vitamin B1 Tab) 100 mg PO DAILY [facility] Last Admin: 05/12/17 10:44 Dose: 100 mg Trazodone HCl (Desyrel) 50 mg PO HS PRN PRN Reason: Sleep Last Admin: 05/11/17 22:07 Dose: 50 mg - Labs Labs: 05/12/17 06:00 05/12/17 06:00 PT 10.8 SECONDS (9.4-12.5) 05/10/17 14:13 INR 0.95 (0.93-1.08) 05/10/17 14:13 APTT 27.0 Seconds (25.1-36.5) 05/10/17 14:13 Attending/Attestation - Attestation I have personally seen and examined this patient.: Yes I have fully participated in the care of the patient.: Yes I have reviewed all pertinent clinical information, including history, physical exam and plan: Yes Notes (Text): 05/12/17 17:08 Attending note; Patient seen and examined with resident. Patient is a 46 year old female with history of tobacco use, COPD, alcohol and heroin abuse, and hepatitis C is admitted for COPD exacerbation and right hand cellulitis. currently patient on vancomycin. Cellulitis is resolving. COPD; continue oxygen prn.continue Xopenex, IV Solu-Medrol. Elevated LFTs; secondary to alcohol abuse. Improving slowly. Alcohol cessation/smoking cessation is strongly advised. active smoking; smoking cessation is strongly advised. Homelessness. the patient does not follow up with PMD. prognosis is poor secondary to continue smoking, alcohol abuse, drug abuse and noncompliance with follow-up. 05/12/17 17:09
--- NOTE | 2017-05-12 17:36 | CP.PCM.PN ---
Subjective - Date & Time of Evaluation Date of Evaluation: 05/12/17 Time of Evaluation: 12:05 - Subjective Subjective: Comfortable, less pain in the hand, no fevers overnight. Objective - Vital Signs/Intake and Output Vital Signs (last 24 hours): Temp Pulse Resp BP Pulse Ox 97.6 F 88 24 140/95 H 100 05/12/17 07:30 05/12/17 07:30 05/12/17 07:30 05/12/17 07:30 05/12/17 07:30 Intake and Output: 05/12/17 05/12/17 06:59 18:59 Intake Total 2400 Balance 2400 - Medications Medications: Current Medications Famotidine (Pepcid) 40 mg PO HS [facility] Last Admin: 05/11/17 21:35 Dose: 40 mg Folic Acid (Folic Acid) 1 mg PO DAILY [facility] Last Admin: 05/11/17 10:11 Dose: 1 mg Lactated Ringer's (Lactated Ringer's) 1,000 mls @ 75 mls/hr IV .[id number] [facility] Last Admin: 05/12/17 06:32 Dose: 75 mls/hr Vancomycin HCl (Vancomycin 1gm) 1 gm in 250 mls @ 167 mls/hr IVPB Q12 [facility] PRN Reason: Protocol Last Admin: 05/11/17 21:32 Dose: 167 mls/hr Levalbuterol HCl (Xopenex) 0.63 mg IH [id number] PRN PRN Reason: Shortness of Breath Last Admin: 05/11/17 16:16 Dose: 0.63 mg Levalbuterol HCl (Xopenex) 0.63 mg IH [id number] [facility] Last Admin: 05/12/17 07:47 Dose: 0.63 mg Lorazepam (Ativan) 1 mg IVP Q2H PRN; Protocol PRN Reason: Anxiety Lorazepam (Ativan) 1 mg IVP Q4H [facility] PRN Reason: Protocol Last Admin: 05/12/17 06:54 Dose: 1 mg Methylprednisolone (Solu-Medrol) 40 mg IVP Q12 [facility] Last Admin: 05/11/17 21:34 Dose: 40 mg Montelukast Sodium (Singulair) 10 mg PO HS [facility] Last Admin: 05/11/17 21:34 Dose: 10 mg Multivitamins (Thera Tab) 1 tab PO 0800 [facility] Last Admin: 05/12/17 08:25 Dose: 1 tab Thiamine HCl (Vitamin B1 Tab) 100 mg PO DAILY [facility] Last Admin: 05/11/17 10:11 Dose: 100 mg Trazodone HCl (Desyrel) 50 mg PO HS PRN PRN Reason: Sleep Last Admin: 05/11/17 22:07 Dose: 50 mg - Labs Labs: 05/12/17 06:00 05/12/17 06:00 PT 10.8 SECONDS (9.4-12.5) 05/10/17 14:13 INR 0.95 (0.93-1.08) 05/10/17 14:13 APTT 27.0 Seconds (25.1-36.5) 05/10/17 14:13 - Constitutional Appears: Non-toxic, No Acute Distress - Head Exam Head Exam: NORMAL INSPECTION - ENT Exam ENT Exam: Mucous Membranes Moist - Neck Exam Neck Exam: absent: Meningismus - Respiratory Exam Respiratory Exam: Decreased Breath Sounds - Cardiovascular Exam Cardiovascular Exam: +S1, +S2 - GI/Abdominal Exam GI & Abdominal Exam: Soft Assessment and Plan - Assessment and Plan (Free Text) Plan: Assessment right hand cellulitis history of polysubstance abuse Gallstones history of probable erythema nodosum on the right leg in a patient with history of Hepatitis C COPD Hepatitis C, chronic and active history of umbilical hernia polysubstance abuse with heavy alcohol use and active IV drug user (heroin) Plan continue Vancomycin day 2 and continue to monitor clinical response; blood cx are negative
[2017-05-13] MEDS: Levalbuterol 0.63 MG/3 ML Inhal Soln UD IH SCH ×4 (01:48→19:55)
[2017-05-13 07:53] LABS: HEMOGLOBIN 12.2 g/dL (12.0-16.0); MEAN PLATELET VOLUME 9.7 fl (7.0-11.0); RBC 3.81 10^6/uL (3.5-6.1); RED CELL DISTRIBUTION WIDTH 14.5 % (11.5-14.5); WHITE BLOOD COUNT 15.2 10^3/ul (4.5-11.0)
[2017-05-13 08:19] LABS: ALB/GLOB RATIO 1.1 (1.1-1.8); ALT/SGPT 65 U/L (7-56); AST/SGOT 38 U/L (14-36); BLOOD UREA NITROGEN 14 mg/dL (7-21); CALCIUM 8.2 mg/dL (8.4-10.5); GFR AFRICAN-AMERICAN > 60; GFR NON-AFRICAN AMERICAN > 60
--- NOTE | 2017-05-13 10:04 | CP.PCM.PN ---
<Imer Ware - Last Filed: 05/13/17 17:38> Subjective - Date & Time of Evaluation Date of Evaluation: 05/13/17 Time of Evaluation: 10:04 - Subjective Subjective: Imer Ware PGY1 IM Progress Note Patient was seen and examined at bedside. States her breathing has improved but she is still wheezing. withdrawal symptoms are minimal. Denies chest pain, n/v/d , fevers/chills, and abdominal pain. Objective - Vital Signs/Intake and Output Vital Signs (last 24 hours): Temp Pulse Resp BP Pulse Ox 98 F 71 20 107/69 98 05/13/17 07:50 05/13/17 07:50 05/13/17 07:50 05/13/17 07:50 05/13/17 07:50 Intake and Output: 05/13/17 05/13/17 06:59 18:59 Intake Total 840 Balance 840 - Medications Medications: Current Medications Famotidine (Pepcid) 40 mg PO HS [facility] Last Admin: 05/12/17 21:22 Dose: 40 mg Folic Acid (Folic Acid) 1 mg PO DAILY [facility] Last Admin: 05/12/17 10:44 Dose: 1 mg Vancomycin HCl (Vancomycin 1gm) 1 gm in 250 mls @ 167 mls/hr IVPB Q12 CRAIG PRN Reason: Protocol Last Admin: 05/12/17 21:23 Dose: 167 mls/hr Levalbuterol HCl (Xopenex) 0.63 mg IH [id number] PRN PRN Reason: Shortness of Breath Last Admin: 05/11/17 16:16 Dose: 0.63 mg Levalbuterol HCl (Xopenex) 0.63 mg IH [id number] [facility] Last Admin: 05/13/17 07:13 Dose: 0.63 mg Lorazepam (Ativan) 1 mg IVP Q4H PRN; Protocol PRN Reason: Anxiety Methylprednisolone (Solu-Medrol) 40 mg IVP Q12 [facility] Last Admin: 05/12/17 21:23 Dose: 40 mg Montelukast Sodium (Singulair) 10 mg PO HS [facility] Last Admin: 05/12/17 21:22 Dose: 10 mg Multivitamins (Thera Tab) 1 tab PO 0800 [facility] Last Admin: 05/12/17 08:25 Dose: 1 tab Thiamine HCl (Vitamin B1 Tab) 100 mg PO DAILY CRAIG Last Admin: 05/12/17 10:44 Dose: 100 mg Trazodone HCl (Desyrel) 50 mg PO HS PRN PRN Reason: Sleep Last Admin: 05/12/17 23:20 Dose: 50 mg - Labs Labs: 05/13/17 07:00 05/13/17 07:00 PT 10.8 SECONDS (9.4-12.5) 05/10/17 14:13 INR 0.95 (0.93-1.08) 05/10/17 14:13 APTT 27.0 Seconds (25.1-36.5) 05/10/17 14:13 - Additional Findings Additional findings: - Constitutional Appears: Well, Toxic, No Acute Distress, Unkempt - Head Exam Head Exam: NORMAL INSPECTION Additional comments: cushinoid appearance - Eye Exam Eye Exam: EOMI, Normal appearance - ENT Exam ENT Exam: Mucous Membranes Moist - Neck Exam Neck Exam: Normal Inspection - Respiratory Exam Respiratory Exam: Wheezes (decreased, diffuse b/l), NORMAL BREATHING PATTERN. absent: Rales, Rhonchi, Respiratory Distress - Cardiovascular Exam Cardiovascular Exam: Tachycardia, REGULAR RHYTHM, +S1, +S2 - GI/Abdominal Exam GI & Abdominal Exam: Soft, Normal Bowel Sounds. absent: Distended, Tenderness - Extremities Exam Extremities Exam: Full ROM, Normal Inspection. absent: Pedal Edema - Back Exam Back Exam: NORMAL INSPECTION - Neurological Exam Neurological Exam: Alert, Awake, Oriented x3 - Psychiatric Exam Psychiatric exam: Normal Affect, Normal Mood - Skin Skin Exam: Normal Color, Warm Assessment and Plan - Assessment and Plan (Free Text) Assessment: 46 year old female with past medical history of COPD, asthma, alcohol/heroin abuse, and hepatitis C (known and untreated) with liver cirrhosis who was admitted for evaluation and treatment of right hand pain and SOB. Plan: 1. SIRS criteria - Tachycardia (likely 2/2 ETOH withdrawals) and leukocytosis (chronically elevated) - need to rule out cellulitis of R hand - lactate not elevated - c/w vancomycin - xray of right hand showed marked soft tissue swelling - infectious disease consulted- appreciate recommendations - blood cultures x 2 negative x 72hrs - urine culture negative - IVF held due to HTN 2. Acute on Chronic COPD Exacerbation - CXR showed R hilar prominence; mild b/l atelectasis - xopenex CRAIG and PRN - singulair - solumedrol 40mg IV q12 - oxygen supplementation 2 L via NC 3. Ethanol Abuse, Potential Withdrawal - CIWA score 1 - high risk fall precautions - seizure precautions - ativan 1mg q4 prn withdrawl symptoms - ativan 1mg q4 craig d/c - librium 5 daily added - multivitamin, thiamine, and folate supplements - trazodone prn hs 4. Elevated LFTs - 2/2 to ETOH use and Hep C (known and untreated) - avoid hepatotoxins - monitor closely via CMP 5. Hx of Illicit Drug Abuse - cessation advised - patient education provided on dangers of illicit drug abuse 6. Prophylaxis - DVT ppx- scds - GI ppx- famotidine Patient was seen, examined and discussed with attending, Dr. Padma Ware PGY1 Pager # [phone] <Junaid Rouse - Last Filed: 05/14/17 16:17> Objective - Vital Signs/Intake and Output Vital Signs (last 24 hours): Temp Pulse Resp BP Pulse Ox 98 F 54 L 22 139/96 H 97 05/14/17 07:47 05/14/17 07:47 05/14/17 07:47 05/14/17 09:41 05/14/17 07:47 Intake and Output: 05/14/17 05/14/17 06:59 18:59 Intake Total 960 680 Balance 960 680 - Labs Labs: 05/14/17 08:00 05/14/17 08:00 PT 10.8 SECONDS (9.4-12.5) 05/10/17 14:13 INR 0.95 (0.93-1.08) 05/10/17 14:13 APTT 27.0 Seconds (25.1-36.5) 05/10/17 14:13 Attending/Attestation - Attestation I have personally seen and examined this patient.: Yes I have fully participated in the care of the patient.: Yes I have reviewed all pertinent clinical information, including history, physical exam and plan: Yes Notes (Text): 05/14/17 16:16 Attending note; Patient seen and examined with resident. Patient is a 46 year old female with history of tobacco use, COPD, alcohol and heroin abuse, and hepatitis C is admitted for COPD exacerbation and right hand cellulitis. Treated with IV vancomycin. Cellulitis is resolved. COPD; continue oxygen prn. Treated with Xopenex and IV Solu-Medrol. Elevated LFTs; secondary to alcohol abuse. Improving slowly. Alcohol cessation/smoking cessation is strongly advised. active smoking; smoking cessation is strongly advised. Discharge patient home. Prescription given. Advised to [place] [facility]. prognosis is poor secondary to continue smoking, alcohol abuse, drug abuse and noncompliance with follow-up.
[2017-05-13] MEDS: Multivitamin Therapeutic Tab PO SCH (10:34)
[2017-05-13] MEDS: Vancomycin 1gm in NS 250ml 1 GM/250 ML BAG IVPB SCH ×2 (10:34→21:04)
[2017-05-13] MEDS: MethylPREDNISolone 40 mg Vial IVP SCH ×2 (10:35→21:03)
--- NOTE | 2017-05-14 00:53 | PN ---
DATE: 05/13/2017 SUBJECTIVE: The patient is in bed, in no acute distress, nontoxic. PHYSICAL EXAMINATION: VITAL SIGNS: Temperature is 98, blood pressure is 130/90, respiratory rate of 20, heart rate of 71. HEENT: Unremarkable. NECK: Supple. LUNGS: Decreased breath sounds. HEART: Normal S1 and S2. ABDOMEN: Soft and nontender. LABORATORY EXAMINATION: Reveals a white count of 15,000, hemoglobin of 12, platelets of 330. Chemistries noted and urinalysis is noted. Toxicology is reviewed. HIV is nonreactive. Blood cultures are no growth. Urine cultures are no growth. Review of orders revealed the patient is on Solu-Medrol and vancomycin. ASSESSMENT AND PLAN: This is a 46-year-old female with a history of chronic obstructive lung disease, asthma, multiple hospitalizations, hepatitis C, polysubstance abuse who was admitted with . Right hand cellulitis appears to be improving on vancomycin, day number 3. Review of orders confirms the vancomycin to be active. We will follow with you. Margarito Robert MD
[2017-05-14 00:59] VITALS: RESP 22; O2SAT 97
[2017-05-14] MEDS: Levalbuterol 0.63 MG/3 ML Inhal Soln UD IH SCH ×3 (01:00→13:04)
[2017-05-14 07:48] VITALS: PULSE 54; TEMP 98
[2017-05-14 08:25] LABS: MEAN CELL VOLUME 98.3 fl (80.0-105.0); MEAN CORPUSCULAR HEMOGLOBIN 31.6 pg (25.0-35.0); MEAN CORPUSCULAR HGB CONC 32.2 g/dl (31.0-37.0); MEAN PLATELET VOLUME 10.4 fl (7.0-11.0); RBC 4.11 10^6/uL (3.5-6.1); RED CELL DISTRIBUTION WIDTH 14.4 % (11.5-14.5); WHITE BLOOD COUNT 13.9 10^3/ul (4.5-11.0)
[2017-05-14 09:04] LABS: ALB/GLOB RATIO 1.1 (1.1-1.8); ALBUMIN 3.2 g/dL (3.0-4.8); ALT/SGPT 78 U/L (7-56); AST/SGOT 58 U/L (14-36); BLOOD UREA NITROGEN 16 mg/dL (7-21); GFR AFRICAN-AMERICAN > 60; GFR NON-AFRICAN AMERICAN > 60
[2017-05-14] MEDS: Vancomycin 1gm in NS 250ml 1 GM/250 ML BAG IVPB SCH (09:37)
[2017-05-14] MEDS: MethylPREDNISolone 40 mg Vial IVP SCH (09:53)
[2017-05-14] MEDS: Multivitamin Therapeutic Tab PO SCH (09:56)
[2017-05-14 09:59] VITALS: BP 139/96
--- NOTE | 2017-05-14 18:41 | PN ---
DATE: 05/14/2017 SUBJECTIVE: The patient is in bed in no acute distress, nontoxic. OBJECTIVE: VITAL SIGNS: On exam, temperature is 98, blood pressure is 135/100, respiratory rate of 22. HEENT: Unremarkable. NECK: Supple. LUNGS: Have decreased breath sounds. HEART: Normal S1, S2. ABDOMEN: Soft, nontender. LABORATORY EXAMINATION: Reveals a white count of 13,900, hemoglobin of 13, platelets of 364. Chemistry reveals a BUN of 16, creatinine of 0.5. LFTs are normal. HIV is negative. Blood cultures are negative. Urine cultures are negative. ASSESSMENT AND PLAN: This is a 46-year-old female seen earlier this morning, history of chronic obstructive lung disease, asthma, multiple hospitalizations, hepatitis C, polysubstance abuse, admitted with right hand cellulitis, appears to be improving, day #4 of vancomycin and we will follow with you. Margarito Robert MD
--- NOTE | 2017-05-14 19:23 | CP.PCM.DIS ---
Provider - Provider Date of Admission: 05/10/17 22:43 Attending physician: Junaid Rouse MD Time Spent in preparation of Discharge (in minutes): 40 Diagnosis - Discharge Diagnosis (1) Contusion of right hand Status: Acute Comment: patient states it occured post-IV attempt in ED 2 weeks. denies IVDA (2) Alcohol withdrawal Status: Acute (3) Chronic obstructive lung disease Status: Chronic (4) Chronic hepatitis C Status: Chronic (5) Polysubstance abuse Status: Chronic (6) Asthma attack Status: Acute Hospital Course - Lab Results Lab Results: Most Recent Lab Values WBC 13.9 10^3/ul (4.5-11.0) H 05/14/17 08:00 RBC 4.11 10^6/uL (3.5-6.1) 05/14/17 08:00 Hgb 13.0 g/dL (12.0-16.0) 05/14/17 08:00 Hct 40.4 % (36.0-48.0) 05/14/17 08:00 MCV 98.3 fl (80.0-105.0) 05/14/17 08:00 MCH 31.6 pg (25.0-35.0) 05/14/17 08:00 MCHC 32.2 g/dl (31.0-37.0) 05/14/17 08:00 RDW 14.4 % (11.5-14.5) 05/14/17 08:00 Plt Count 362 10^3/uL (120.0-450.0) 05/14/17 08:00 MPV 10.4 fl (7.0-11.0) 05/14/17 08:00 Gran % 87.0 % (50.0-68.0) H 05/12/17 06:00 Lymph % (Auto) 8.4 % (22.0-35.0) L 05/12/17 06:00 Moore % (Auto) 4.5 % (1.0-6.0) 05/12/17 06:00 Eos % (Auto) 0.0 % (1.5-5.0) L 05/12/17 06:00 Baso % (Auto) 0.1 % (0.0-3.0) 05/12/17 06:00 Gran # 14.99 (1.4-6.5) H 05/12/17 06:00 Lymph # 1.5 (1.2-3.4) 05/12/17 06:00 Moore # 0.8 (0.1-0.6) H 05/12/17 06:00 Eos # 0.0 (0.0-0.7) 05/12/17 06:00 Baso # 0.01 K/mm3 (0.0-2.0) 05/12/17 06:00 ESR 18 mm/hr (0.0-20.0) 05/10/17 14:13 PT 10.8 SECONDS (9.4-12.5) 05/10/17 14:13 INR 0.95 (0.93-1.08) 05/10/17 14:13 APTT 27.0 Seconds (25.1-36.5) 05/10/17 14:13 pCO2 39 mm/Hg (35-45) 05/11/17 00:25 pO2 69.0 mm/Hg (80-100) L 05/11/17 00:25 HCO3 29.7 mmol/L (21-28) H 05/11/17 00:25 ABG pH 7.49 (7.35-7.45) H 05/11/17 00:25 ABG Total CO2 30.9 mmol.L (22-28) H 05/11/17 00:25 ABG O2 Saturation 96.6 % (95-98) 05/11/17 00:25 ABG Base Excess 5.9 mmol/L (-2.0-3.0) H 05/11/17 00:25 ABG Potassium 3.5 mmol/L (3.6-5.2) L 05/11/17 00:25 Sodium 140.0 mmol/L (132-148) 05/11/17 00:25 Chloride 108.0 mmol/L (98-107) H 05/11/17 00:25 Glucose 160 mg/dl (65-105) H 05/11/17 00:25 Lactate 1.9 mmol/L (0.7-2.1) 05/11/17 00:25 FiO2 21.0 % 05/11/17 00:25 Sodium 137 mmol/L (132-148) 05/14/17 08:00 Potassium 4.2 mmol/L (3.6-5.0) 05/14/17 08:00 Chloride 99 mmol/L (98-107) 05/14/17 08:00 Carbon Dioxide 29 mmol/L (21-33) 05/14/17 08:00 Anion Gap 13 (10-20) 05/14/17 08:00 BUN 16 mg/dL (7-21) 05/14/17 08:00 Creatinine 0.5 mg/dl (0.7-1.2) L 05/14/17 08:00 Est GFR ( Amer) > 60 05/14/17 08:00 Est GFR (Non-Af Amer) > 60 05/14/17 08:00 Random Glucose 118 mg/dL (70-110) H 05/14/17 08:00 Calcium 9.0 mg/dL (8.4-10.5) 05/14/17 08:00 Phosphorus 3.7 mg/dL (2.5-4.5) 05/11/17 06:00 Magnesium 2.3 mg/dL (1.7-2.2) H 05/11/17 06:00 Total Bilirubin 0.6 mg/dL (0.2-1.3) 05/14/17 08:00 AST 58 U/L (14-36) H D 05/14/17 08:00 ALT 78 U/L (7-56) H 05/14/17 08:00 Alkaline Phosphatase 77 U/L (38-126) 05/14/17 08:00 Lactate Dehydrogenase 808 U/L (333-699) H 05/10/17 14:13 Total Creatine Kinase 27 U/L (35-230) L 05/10/17 14:13 Troponin I < 0.01 ng/mL 05/10/17 14:13 NT-Pro-B Natriuret Pep 23.4 pg/mL (0-450) 05/10/17 14:13 Total Protein 6.2 g/dL (5.8-8.3) 05/14/17 08:00 Albumin 3.2 g/dL (3.0-4.8) 05/14/17 08:00 Globulin 2.9 gm/dL 05/14/17 08:00 Albumin/Globulin Ratio 1.1 (1.1-1.8) 05/14/17 08:00 Arterial Blood Potassium 3.5 mmol/L (3.6-5.2) L 05/11/17 00:25 Urine Color Yellow (YELLOW) 05/10/17 15:02 Urine Appearance Clear (CLEAR) 05/10/17 15:02 Urine pH 8.0 (4.7-8.0) 05/10/17 15:02 Ur Specific [place] 1.010 (1.005-1.035) 05/10/17 15:02 Urine Protein Negative mg/dL (<30 mg/dL) 05/10/17 15:02 Urine Glucose (UA) Negative mg/dL (NEGATIVE) 05/10/17 15:02 Urine Ketones Negative mg/dL (NEGATIVE) 05/10/17 15:02 Urine Blood Trace-intact (NEGATIVE) H 05/10/17 15:02 Urine Nitrate Negative (NEGATIVE) 05/10/17 15:02 Urine Bilirubin Negative (NEGATIVE) 05/10/17 15:02 Urine Urobilinogen 1.0 E.U./dL (<1 E.U./dL) H 05/10/17 15:02 Ur Leukocyte Esterase Negative Erik/uL (NEGATIVE) 05/10/17 15:02 Urine RBC 0 - 2 /hpf (0-2) 05/10/17 15:02 Urine WBC Negative /hpf (0-6) 05/10/17 15:02 Ur Epithelial Cells 1 - 3 /hpf (0-5) 05/10/17 15:02 Urine Opiates Screen Negative (NEGATIVE) 05/10/17 23:06 Urine Methadone Screen Negative (NEGATIVE) 05/10/17 23:06 Ur Barbiturates Screen Negative (NEGATIVE) 05/10/17 23:06 Ur Phencyclidine Scrn Negative (NEGATIVE) 05/10/17 23:06 Ur Amphetamines Screen Negative (NEGATIVE) 05/10/17 23:06 U Benzodiazepines Scrn Negative (NEGATIVE) 05/10/17 23:06 U Oth Cocaine Metabols Negative (NEGATIVE) 05/10/17 23:06 U Cannabinoids Screen Negative (NEGATIVE) 05/10/17 23:06 Alcohol, Quantitative 47 mg/dL (0-10) H 05/10/17 14:13 HIV 1&2 Ag/Ab, 4th Gen Nonreactive (Nonreactive) 05/11/17 08:00 - Hospital Course Hospital Course: 46 year old homeless female with past medical history of COPD, asthma, alcohol/ heroin abuse (Denies IVDA), tobacco use, and hepatitis C with liver cirrhosis who presented to the emergency department for evaluation and treatment of right hand pain and SOB. States the right hand pain began 10 days prior to admission when in ED after IV infiltrated and is associated with swelling, erythema, central skin color change. Also admits to SOB and wheezing which began day prior to admission, which she has a long history of with prior admissions with sob requiring intubation. Patient met SEPSIS criteria on admission, but likely due to withdrawal symptoms and chronically elevated WBC. Patient started on Vanc and Zosyn and ID was consulted. xray of right hand showed marked soft tissue swelling. blood and urine cultures were negative. Patient was afebrile with full motor skills and 2+ pulses in both arms. CXR showed R hilar prominence ; mild b/l atelectasis, and patient was stared on course of steroids and breathing treatments. CIWA protocol was enacted for patient's withdrawals and folic acid, MV, thiamine supplements were administered. Patient's wheezing improved and withdrawal symptoms improved. Encouraged to stop drinking ETOH, smoking, and heroin use. Encouraged to use her prescribed meds to prevent shortness of breath. Should follow [place] at [facility]. Patient is medically stable for discharge. Discharge Exam - Head Exam Head Exam: NORMAL INSPECTION - Eye Exam Eye Exam: EOMI, Normal appearance, PERRL - ENT Exam ENT Exam: Mucous Membranes Moist - Neck Exam Neck exam: Normal Inspection - Respiratory Exam Respiratory Exam: NORMAL BREATHING PATTERN. absent: Rales, Rhonchi, Wheezes - Cardiovascular Exam Cardiovascular Exam: RRR, +S1, +S2 - GI/Abdominal Exam GI & Abdominal Exam: Normal Bowel Sounds, Soft. absent: Distended, Tenderness - Extremities Exam Extremities exam: normal inspection - Back Exam Back exam: NORMAL INSPECTION - Neurological Exam Neurological exam: Alert, Normal Gait, Oriented x3 - Psychiatric Exam Psychiatric exam: Normal Affect, Normal Mood - Skin Skin Exam: Normal Color, Warm Discharge Plan - Discharge Medications Prescriptions: Albuterol HFA [Ventolin HFA 90 mcg/actuation (8 g)] 1 puff IH Q6 PRN #1 inhaler PRN Reason: Shortness Of Breath Folic Acid 1 mg PO DAILY #15 tab Methylprednisolone [Medrol Dose Pack (21 tabs)] 4 mg PO ASDIR #21 mg Montelukast [Singulair] 10 mg PO HS #15 tab Multivitamin [Daily Jorge] 1 each PO DAILY #15 tablet Thiamine [Vitamin B1 Tab] 100 mg PO DAILY #15 tab - Follow Up Plan Condition: STABLE Disposition: HOME/ ROUTINE Instructions: Asthma (DC), Abuse of Alcohol (DC), Reactive Airways Disease (DC) , Bronchospasm (DC) Additional Instructions: - please refrain from alcohol, tobacco and heroin use - please take your medications as prescribed - please follow up at [facility] within 2 weeks - if you experience shortness of breath, coughing or fever/chills, please return to ED for eval Referrals: [facility] [Outside]
== END 2017-05-14 15:15 | disposition home or self-care (01) | DRG 88 ==
LOC: ED 13:05 → ERH 22:43 → 5RNO 05-11 01:44
PROVIDERS: ADMIT Internal Medicine; ATTEND Internal Medicine
DX: J44.1 Chronic obstructive pulmonary disease with (acute) exacerbation (principal); J45.901 Unspecified asthma with (acute) exacerbation; K74.60 Unspecified cirrhosis of liver; L03.113 Cellulitis of right upper limb; B18.2 Chronic viral hepatitis C; F10.239 Alcohol dependence with withdrawal, unspecified; F11.10 Opioid abuse, uncomplicated; J98.11 Atelectasis; K80.20 Calculus of gallbladder without cholecystitis without obstruction; F17.210 Nicotine dependence, cigarettes, uncomplicated; Y90.2 Blood alcohol level of 40-59 mg/100 ml; E03.9 Hypothyroidism, unspecified; E78.5 Hyperlipidemia, unspecified; Z91.19 Patient's noncompliance with other medical treatment and regimen; Z59.0 Homelessness

== ENCOUNTER 2017-05-17 22:49 | Emergency (ER) | payer MEDICAID ==
[2017-05-17 22:49] VITALS: BMI 25.7
[2017-05-17 23:12] VITALS: TEMP 98
[2017-05-17 23:14] VITALS: RESP 18; O2SAT 100
[2017-05-18] MEDS ORDERED: Tmp-Smz 800 mg-160 mg DS Tab PO STA (00:03)
--- NOTE | 2017-05-18 00:15 | ED PDOC ---
Arrival/HPI - General Chief Complaint: Upper Extremity Problem/Injury Time Seen by Provider: 05/17/17 23:19 Historian: Patient - History of Present Illness Narrative History of Present Illness (Text): 05/18/17 00:16 46-year-old homeless female with a history of asthma drug use right hand cellulitis presents today stating that she rocha had an infection in the right hand which was improving and now she noticed a small amount of redness to the dorsal aspect of the hand. Patient also states she was staying in a warming intermediate but today they closed the warming shelters because they said it was too warm. Patient denies fevers or chills. Denies chest pain or shortness of breath. Denies dizziness or weakness. Denies numbness weakness or tingling in the extremities. Denies decreased range of motion of the hand. No other complaints Past Medical History - Provider Review Nursing Documentation Reviewed: Yes - Travel History Have you recently traveled outside [place] w/in the past 3 mons?: No - Infectious Disease Hx of Infectious Diseases: None - Tetanus Immunization Tetanus Immunization: Unknown - Cardiac Hx Angina: No Hx Pacemaker: No - Pulmonary Hx Respiratory Disorders: Yes (CURRENTLY SMOKES CIGARETTES 10 CIG A DAY) Hx Chronic Obstructive Pulmonary Disease (COPD): Yes - Neurological Hx Neurological Disorder: Yes (CLOGGED EARS) HX Cerebrovascular Accident: No - HEENT Hx HEENT Disorder: No - Renal Hx Renal Disorder: No - Endocrine/Metabolic Hx Endocrine Disorders: Yes Hx Hypothyroidism: Yes - Hematological/Oncological Hx Blood Disorders: No Hx Cancer: No - Integumentary Hx Dermatological Disorder: Yes Other/Comment: 05/17/17 - Multiple ecchymotic areas noted to B/L UE. Patient has dried black scab to Right hand. multiple bruises left knee, swelling right knee and pain to both knees from fall 2 wks ago, multiple eccymotic arreas to left arm, small scab right arm, 2.5cm x 2cm deep red growth to rle "I have had it for years." surgical scar mid lower abd, eccymotic area to lower abd, umbilical hernia noted - Musculoskeletal/Rheumatological Hx Musculoskeletal Disorders: Yes Hx Falls: Yes - Gastrointestinal Hx Gastrointestinal Disorders: Yes Hx Pancreatitis: (pt denies pancreatitis) Other/Comment: Umbilical hernia /cirrhosis/ distended abd - Genitourinary/Gynecological Hx Genitourinary Disorders: No Hx Sexually Transmitted Diseases: (pt denies trichomonas) - Psychiatric Hx Psychophysiologic Disorder: Yes Hx Anxiety: Yes Hx Depression: Yes Hx Substance Use: Yes Other/Comment: alcohol drinks 4 or 5 24 oz cans of 4-frances a day, 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 - Surgical History Hx Appendectomy: Yes Hx Mastectomy: No - Anesthesia Hx Anesthesia: Yes Hx Anesthesia Reactions: No Hx Malignant Hyperthermia: No - Suicidal Assessment Feels Threatened In Home Enviroment: No Family/Social History - Physician Review Nursing Documentation Reviewed: Yes Family/Social History: Unknown Family HX Smoking Status: Light Smoker < 10 Cigarettes Daily Hx Alcohol Use: Yes (current) Hx Substance Use: Yes Substance used: HEROIN Hx Substance Use Treatment: Yes Allergies/Home Meds Allergies/Adverse Reactions: Allergies No Known Allergies Allergy (Verified 05/18/17 01:26) Review of Systems - Review of Systems Constitutional: absent: Fatigue, Fevers Respiratory: absent: SOB, Cough Cardiovascular: absent: Chest Pain Gastrointestinal: absent: Abdominal Pain, Nausea, Vomiting Musculoskeletal: Arthralgias Skin: Skin Lesions, Cellulitis Neurological: absent: Headache, Dizziness Psychiatric: absent: Anxiety, Depression, Suicidal Ideation Physical Exam Vital Signs Reviewed: Yes Vital Signs Temp Pulse Resp BP Pulse Ox 05/18/17 00:34 95 H 18 138/89 100 05/17/17 23:13 101 H 18 140/99 H 100 05/17/17 23:07 98.0 F 84 20 96 Temperature: Afebrile Blood Pressure: Hypertensive Pulse: Tachycardic Respiratory Rate: Normal Appearance: Positive for: Well-Appearing, Non-Toxic, Comfortable Pain Distress: None Mental Status: Positive for: Alert and Oriented X 3 - Systems Exam Head: Present: Atraumatic Neck: Present: Normal Range of Motion Respiratory/Chest: Present: Clear to Auscultation, Good Air Exchange. No: Respiratory Distress, Accessory Muscle Use, Decreased Breath Sounds, Retracting , Rhonchi, Tachypneic Cardiovascular: Present: Regular Rate and Rhythm Abdomen: No: Tenderness Upper Extremity: Present: Normal ROM, NORMAL PULSES, Swelling, Erythema (right hand; there is a quarter sized area of healing wound along the dorsal aspect of the hand with a small area of surrounding erythema and minimal edema; full rom of hand; sensation and distal pulses intact. cap refill <2. ), Neurovascularly Intact. No: Tenderness, Deformity Skin: Present: Warm, Dry Psychiatric: Present: Alert, Oriented x 3 Medical Decision Making ED Course and Treatment: 05/18/17 00:23 Patient's nontoxic well-appearing in no distress complaining of a area of erythema to the right hand. The patient was hospitalized and treated with vancomycin and Zosyn. Patient was discharged 3 days ago. There is a quarter sized lesion along the dorsum of the hand with a small area of surrounding erythema that is nontender. Patient's vitals are stable. She is nontoxic well-appearing in no distress Will trial the patient with a course of by mouth antibiotics. Wound was cleaned well. Bacitracin and dressing applied. Bactrim and Keflex given by mouth Patient was advised to follow-up with primary care physician within the next 2 days. Patient was advised to take the antibiotics as prescribed. Patient was advised immediately return if symptoms worsen persist or if new concerning symptoms develop Patient verbalizes understanding of discharge instructions and need for immediate followup. all aspects of this case were discussed the attending of record. Impression: Cellulitis, hand take bactrim and keflex as prescribed apply bacitracin twice daily. return immediately if symptoms worsen,persist or if new symptoms develop; high fevers, increasing pain, increasing redness, swelling or purulent discharge. - Medication Orders Current Medication Orders: Discontinued Medications Cephalexin Monohydrate (Keflex) 500 mg PO STAT STA PRN Reason: Protocol Stop: 05/18/17 00:04 Last Admin: 05/18/17 00:34 Dose: 500 mg Trimethoprim/Sulfamethoxazole (Bactrim Ds Tab) 1 tab PO STAT STA PRN Reason: Protocol Stop: 05/18/17 00:04 Last Admin: 05/18/17 00:34 Dose: 1 tab Disposition/Present on Arrival - Present on Arrival Any Indicators Present on Arrival: No History of DVT/PE: No History of Uncontrolled Diabetes: No Urinary Catheter: No History of Decub. Ulcer: No History Surgical Site Infection Following: None - Disposition Have Diagnosis and Disposition been Completed?: Yes Diagnosis: Cellulitis of hand Disposition: HOME/ ROUTINE Disposition Time: 00:17 Patient Plan: Discharge Patient Problems: Current Active Problems Problem Status Onset Cellulitis of hand Acute Condition: GOOD Discharge Instructions (ExitCare): Cellulitis (ED) Additional Instructions: take bactrim and keflex as prescribed apply bacitracin twice daily. return immediately if symptoms worsen,persist or if new symptoms develop; high fevers, increasing pain, increasing redness, swelling or purulent discharge. Prescriptions: Bacitracin OINT 1 applic TP BID #1 tube Cephalexin [Keflex] 500 mg PO QID #28 capsule Sulfamethoxazole/Trimethoprim [Bactrim DS 800 mg-160 mg] 1 tab PO BID #14 tab Referrals: Jim Pappas DO [Staff Provider] - Follow up with primary Margarito Robert MD [Staff Provider] - Follow up with primary Shawn Hernandez MD [Staff Provider] - Follow up with primary Forms: [employer] ([place]ayan)
[2017-05-18 00:35] VITALS: BP 138/89; PULSE 95
== END 2017-05-18 00:30 | disposition home or self-care (01) ==
LOC: ED 22:49
DX: L03.113 Cellulitis of right upper limb (principal)

== ENCOUNTER 2017-05-25 17:35 | Inpatient (IN) | payer MEDICAID ==
[2017-05-25 17:35] VITALS: BMI 25.7
[2017-05-25] MEDS ORDERED: Albuterol-Ipratrop 3 mg / 0.5 (3 ml) UD IH STA ×3 (17:47→17:55)
[2017-05-25] MEDS ORDERED: Albuterol-Ipratrop 3 mg / 0.5 (3 ml) UD ONE (17:50)
[2017-05-25 18:21] LABS: BASO # 0.04 K/mm3 (0.0-2.0); BASO % 0.3 % (0.0-3.0); EOS # 0.3 (0.0-0.7); EOS % 2.4 % (1.5-5.0); GRAN # 7.82 (1.4-6.5); GRAN % 54.4 % (50.0-68.0); HEMOGLOBIN 13.5 g/dL (12.0-16.0); LYMPH # 5.1 (1.2-3.4); LYMPH % 35.6 % (22.0-35.0); MEAN CELL VOLUME 98.8 fl (80.0-105.0); MEAN CORPUSCULAR HEMOGLOBIN 31.9 pg (25.0-35.0); MEAN CORPUSCULAR HGB CONC 32.3 g/dl (31.0-37.0); MEAN PLATELET VOLUME 9.8 fl (7.0-11.0); MONO # 1.1 (0.1-0.6); MONO % 7.3 % (1.0-6.0); RBC 4.23 10^6/uL (3.5-6.1); RED CELL DISTRIBUTION WIDTH 14.5 % (11.5-14.5); WHITE BLOOD COUNT 14.4 10^3/ul (4.5-11.0)
[2017-05-25 18:30] LABS: ALB/GLOB RATIO 1.2 (1.1-1.8); ALBUMIN 3.4 g/dL (3.0-4.8); ALT/SGPT 97 U/L (7-56); AST/SGOT 75 U/L (14-36); BLOOD UREA NITROGEN 4 mg/dL (7-21); CALCIUM 8.7 mg/dL (8.4-10.5); GFR AFRICAN-AMERICAN > 60; GFR NON-AFRICAN AMERICAN > 60
[2017-05-25 20:03] LABS: B-TYPE NATRIURETIC PEPTIDE 18.8 pg/mL (0-450)
[2017-05-25] MEDS ORDERED: Magnesium Sulfate 2 GM in Sodium Chloride 0.9% 100 ML IVPB ONE (20:28)
[2017-05-25] MEDS ORDERED: Levalbuterol 1.25 MG/3 ML Inhal Soln UD IH STA (20:28)
--- NOTE | 2017-05-25 21:06 | ED PDOC ---
Arrival/HPI - General Chief Complaint: Chest Pain Time Seen by Provider: 05/25/17 17:47 Historian: Patient - History of Present Illness Narrative History of Present Illness (Text): 05/25/17 21:03 46-year-old female presents today with acute asthma exacerbation. Patient states she was feeling fine until about an hour and a half prior to arrival when she started to notice wheezing. Patient states she felt as though her chest was tight and she felt short of breath. Patient states she did not use her nebulizer at home. She denies abdominal pain. Denies dizziness or weakness. Denies fevers or chills. No nausea or vomiting. Patient complaining of swelling in the lower extremities. No other complaints Time/Duration: 1 hour Past Medical History - Provider Review Nursing Documentation Reviewed: Yes - Travel History Have you recently traveled outside [place] w/in the past 3 mons?: No - Infectious Disease Hx of Infectious Diseases: None - Tetanus Immunization Tetanus Immunization: Unknown - Cardiac Hx Angina: No Hx Pacemaker: No - Pulmonary Hx Respiratory Disorders: Yes (CURRENTLY SMOKES CIGARETTES 10 CIG A DAY) Hx Chronic Obstructive Pulmonary Disease (COPD): Yes - Neurological Hx Neurological Disorder: Yes (CLOGGED EARS) HX Cerebrovascular Accident: No - HEENT Hx HEENT Disorder: No - Renal Hx Renal Disorder: No - Endocrine/Metabolic Hx Endocrine Disorders: Yes Hx Hypothyroidism: Yes - Hematological/Oncological Hx Blood Disorders: No Hx Cancer: No - Integumentary Hx Dermatological Disorder: Yes Other/Comment: 05/17/17 - Multiple ecchymotic areas noted to B/L UE. Patient has dried black scab to Right hand. multiple bruises left knee, swelling right knee and pain to both knees from fall 2 wks ago, multiple eccymotic arreas to left arm, small scab right arm, 2.5cm x 2cm deep red growth to rle "I have had it for years." surgical scar mid lower abd, eccymotic area to lower abd, umbilical hernia noted - Musculoskeletal/Rheumatological Hx Musculoskeletal Disorders: Yes Hx Falls: Yes - Gastrointestinal Hx Gastrointestinal Disorders: Yes Hx Pancreatitis: (pt denies pancreatitis) Other/Comment: Umbilical hernia /cirrhosis/ distended abd - Genitourinary/Gynecological Hx Genitourinary Disorders: No Hx Sexually Transmitted Diseases: (pt denies trichomonas) - Psychiatric Hx Psychophysiologic Disorder: Yes Hx Anxiety: Yes Hx Depression: Yes Hx Substance Use: Yes Other/Comment: alcohol drinks 4 or 5 24 oz cans of 4-frances a day, 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 - Surgical History Hx Appendectomy: Yes Hx Mastectomy: No - Anesthesia Hx Anesthesia: Yes Hx Anesthesia Reactions: No Hx Malignant Hyperthermia: No - Suicidal Assessment Feels Threatened In Home Enviroment: No Family/Social History - Physician Review Nursing Documentation Reviewed: Yes Family/Social History: Unknown Family HX Smoking Status: Light Smoker < 10 Cigarettes Daily Hx Alcohol Use: Yes (current) Hx Substance Use: Yes Substance used: HEROIN Hx Substance Use Treatment: Yes Allergies/Home Meds Allergies/Adverse Reactions: Allergies No Known Allergies Allergy (Verified 05/18/17 01:26) Review of Systems - Review of Systems Constitutional: absent: Fatigue, Fevers Respiratory: SOB, Cough Cardiovascular: Chest Pain. absent: Palpitations Gastrointestinal: absent: Abdominal Pain, Nausea, Vomiting Musculoskeletal: Other (b/l leg swelling). absent: Arthralgias Skin: absent: Rash, Pruritis Neurological: absent: Headache, Dizziness Psychiatric: absent: Anxiety, Depression Physical Exam Vital Signs Reviewed: Yes Vital Signs Pulse Resp BP Pulse Ox 05/25/17 19:21 100 H 20 105/64 96 05/25/17 17:36 100 H 24 105/55 L 96 Temperature: Afebrile Blood Pressure: Normal Pulse: Tachycardic Respiratory Rate: Tachypneic Appearance: Positive for: Well-Appearing, Non-Toxic, Comfortable Pain Distress: Mild Mental Status: Positive for: Alert and Oriented X 3 - Systems Exam Head: Present: Atraumatic Mouth: Present: Moist Mucous Membranes Respiratory/Chest: Present: Accessory Muscle Use, Wheezes, Tachypneic. No: Good Air Exchange, Rales, Rhonchi Cardiovascular: Present: Regular Rate and Rhythm Abdomen: No: Tenderness, Rebound, Guarding Back: Present: Normal Inspection Upper Extremity: Present: Normal ROM, NORMAL PULSES, Swelling (right hand; + minimal swelling with scar.no erythema; full rom of hand. ), Neurovascularly Intact. No: Erythema Lower Extremity: Present: Edema, Normal ROM, Neurovascularly Intact. No: Tenderness, Erythema Neurological: Present: GCS=15 Skin: Present: Warm, Dry, Normal Color. No: Rashes Psychiatric: Present: Alert, Oriented x 3 Medical Decision Making ED Course and Treatment: 05/25/17 21:07 46-year-old female with a history of asthma presents with acute asthma exacerbation tachycardic tachypneic and hypoxic. Patient given 3 duo nebs and Solu-Medrol 125 IV Chest x-ray no infiltrate or effusion CBC White blood cell count 14.4 CMP: Glucose 148 EKG shows sinus tachycardia at 102 bpm normal axis normal intervals no ST elevations Patient reassessment: Patient feeling slightly better. Vital signs have improved. Patient remains slightly tachypneic with diffuse wheezing bilaterally Xopenex ordered Magnesium added IV. pt reassessment; still with continued wheezing. will admit observational status to tele for asthma exacerbation. pt will need nebs every 4 hours pt seen and evaluated by dr. colon. case discussed with belinda bagley and resident dr. barakat; accepts observational status admission. impression; asthma exacerbation admit tele observationa for asthma exacerbation Reassessment Condition: Re-examined, Improving,but remains with symptoms - Lab Interpretations Lab Results: 05/25/17 18:05 05/25/17 18:05 Lab Results 05/25/17 18:05: WBC 14.4 H, RBC 4.23, Hgb 13.5, Hct 41.8, MCV 98.8, MCH 31.9, MCHC 32.3, RDW 14.5, Plt Count 385, MPV 9.8, Gran % 54.4, Lymph % (Auto) 35.6 H , Smyth % (Auto) 7.3 H, Eos % (Auto) 2.4, Baso % (Auto) 0.3, Gran # 7.82 H, Lymph # (Auto) 5.1 H, Smyth # (Auto) 1.1 H, Eos # (Auto) 0.3, Baso # (Auto) 0.04 05/25/17 18:05: Sodium 143, Potassium 3.9, Chloride 103, Carbon Dioxide 24, Anion Gap 20, BUN 4 L, Creatinine 0.5 L, Est GFR ( Amer) > 60, Est GFR ( Non-Af Amer) > 60, Random Glucose 148 H, Calcium 8.7, Total Bilirubin 0.4, AST 75 H D, ALT 97 H, Alkaline Phosphatase 99, NT-Pro-B Natriuret Pep 18.8, Total Protein 6.4, Albumin 3.4, Globulin 2.9, Albumin/Globulin Ratio 1.2 - RAD Interpretation Radiology Orders: 05/25/17 17:48 CHEST PORTABLE [RAD] Stat - Medication Orders Current Medication Orders: Magnesium Sulfate 2 gm/ Sodium (Chloride) 104 mls @ 102 mls/hr IVPB ONCE ONE Stop: 05/25/17 21:29 Last Admin: 05/25/17 20:46 Dose: 102 mls/hr eMAR Start Stop Document 05/25/17 20:46 EQ (Rec: 05/25/17 20:46 EQ [id number]) Intravenous Solution Start Date 05/25/17 Start Time 20:46 Discontinued Medications Albuterol/Ipratropium (Duoneb 3 Mg/0.5 Mg (3 Ml) Ud) 3 ml IH STAT STA Stop: 05/25/17 17:48 Last Admin: 05/25/17 18:16 Dose: 3 ml Albuterol/Ipratropium (Duoneb 3 Mg/0.5 Mg (3 Ml) Ud) 3 ml IH STAT STA Stop: 05/25/17 17:56 Last Admin: 05/25/17 18:16 Dose: 3 ml Albuterol/Ipratropium (Duoneb 3 Mg/0.5 Mg (3 Ml) Ud) 3 ml IH STAT STA Stop: 05/25/17 17:56 Last Admin: 05/25/17 18:16 Dose: 3 ml Levalbuterol HCl (Xopenex) 1.25 mg IH STAT STA Stop: 05/25/17 20:29 Last Admin: 05/25/17 20:46 Dose: 1.25 mg Methylprednisolone (Solu-Medrol) 125 mg IVP STAT STA Stop: 05/25/17 17:48 Last Admin: 05/25/17 18:16 Dose: 125 mg IVP Administration Document 05/25/17 18:16 EQ (Rec: 05/25/17 18:16 EQ [id number]) Charges for Administration # of IVP Administrations 1 Disposition/Present on Arrival - Present on Arrival Any Indicators Present on Arrival: No History of DVT/PE: No History of Uncontrolled Diabetes: No Urinary Catheter: No History of Decub. Ulcer: No History Surgical Site Infection Following: None - Disposition Have Diagnosis and Disposition been Completed?: Yes Diagnosis: Asthma exacerbation in COPD Disposition: HOSPITALIZED Disposition Time: 21:12 Patient Plan: Observation, Telemetry Condition: FAIR Referrals: [facility] Lul Req, [Primary Care Provider] - Follow up with primary
[2017-05-25] MEDS ORDERED: levoFLOXacin 500 mg in D5W 500 MG/100 ML BAG IVPB STA (21:33)
[2017-05-25] MEDS ORDERED: Albuterol-Ipratrop 3 mg / 0.5 (3 ml) UD IH PRN (21:35)
--- NOTE | 2017-05-25 21:39 | CP.PCM.HP ---
<Terell Bolanos - Last Filed: 05/25/17 23:07> History of Present Illness - History of Present Illness History of Present Illness: Ms. Chambers is a 46 year old female with a past medical history significant for COPD, asthma, alcohol abuse, heroin abuse (snort and inject), and hepatitis C with cirrhosis who presents with shortness of breath which began in the afternoon today and cough. Patient states she was at [employer] when she felt wheezing and short of breath. She used her inhaler and symptoms improved and she was breathing better. An hour later the wheezing sad shortness of breath returned and this time the inhaler did not help. She also states she has been coughing up yellow sputum. In addition, patient reports having 4-5 large alcohol drinks known as "4 lokos" today. Last drink was in the morning around 10am. She denies fever, chills, headache, changes in her vision, sore throat, dysphagia, chest pain, palpitations, abdominal pain, N/V, diarrhea, sick contacts or any other complaints at this time. PMH: COPD, asthma, alcohol/heroin abuse, and hepatitis C with liver cirrhosis PSH: Appendectomy, tonsillectomy Family History: Father-DM2 Social History: Smokes 1/2 pk/day for >30 years, drinks 5-6 cans of four frances daily (14% alcohol x 24 ounces), reports prior IVDU, currently snorts heroin 2- 10 bags weekly; homeless Allergies: NKDA Home Medications: As per MAR PMD: none Present on Admission - Present on Admission Any Indicators Present on Admission: No Review of Systems - Constitutional Constitutional: absent: Chills, Fever - EENT Eyes: absent: Blurred Vision, Change in Vision Nose/Mouth/Throat: absent: Nasal Congestion, Nasal Discharge - Cardiovascular Cardiovascular: Dyspnea. absent: Chest Pain - Respiratory Respiratory: Cough, Dyspnea, Excessive Mucous Production - Gastrointestinal Gastrointestinal: absent: Abdominal Pain, Diarrhea, Nausea, Vomiting - Musculoskeletal Musculoskeletal: absent: Muscle Weakness Past Patient History - Infectious Disease Hx of Infectious Diseases: None - Tetanus Immunizations Tetanus Immunization: Unknown - Past Medical History & Family History Past Medical History?: Yes - Past Social History Smoking Status: Light Smoker < 10 Cigarettes Daily - CARDIAC Hx Angina: No Hx Pacemaker: No - PULMONARY Hx Respiratory Disorders: Yes (CURRENTLY SMOKES CIGARETTES 10 CIG A DAY) Hx Chronic Obstructive Pulmonary Disease (COPD): Yes - NEUROLOGICAL Hx Neurological Disorder: Yes (CLOGGED EARS) HX Cerebrovascular Accident: No - HEENT Hx HEENT Problems: No - RENAL Hx Chronic Kidney Disease: No - ENDOCRINE/METABOLIC Hx Endocrine Disorders: Yes Hx Hypothyroidism: Yes - HEMATOLOGICAL/ONCOLOGICAL Hx Blood Disorders: No Hx Cancer: No - INTEGUMENTARY Hx Dermatological Problems: Yes Other/Comment: 05/17/17 - Multiple ecchymotic areas noted to B/L UE. Patient has dried black scab to Right hand. multiple bruises left knee, swelling right knee and pain to both knees from fall 2 wks ago, multiple eccymotic arreas to left arm, small scab right arm, 2.5cm x 2cm deep red growth to rle "I have had it for years." surgical scar mid lower abd, eccymotic area to lower abd, umbilical hernia noted - MUSCULOSKELETAL/RHEUMATOLOGICAL Hx Musculoskeletal Disorders: Yes Hx Falls: Yes - GASTROINTESTINAL Hx Gastrointestinal Disorders: Yes Hx Pancreatitis: (pt denies pancreatitis) Other/Comment: Umbilical hernia /cirrhosis/ distended abd - GENITOURINARY/GYNECOLOGICAL Hx Genitourinary Disorders: No Hx Sexually Transmitted Disorders: (pt denies trichomonas) - PSYCHIATRIC Hx Psychophysiologic Disorder: Yes Hx Anxiety: Yes Hx Depression: Yes Hx Substance Use: Yes Other/Comment: alcohol drinks 4 or 5 24 oz cans of 4-frances a day, 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 - SURGICAL HISTORY Hx Appendectomy: Yes Hx Mastectomy: No - ANESTHESIA Hx Anesthesia: Yes Hx Anesthesia Reactions: No Hx Malignant Hyperthermia: No Meds Allergies/Adverse Reactions: Allergies Allergy/AdvReac Type Severity Reaction Status Date / Time No Known Allergies Allergy Verified 05/18/17 01:26 Physical Exam - Constitutional Appears: No Acute Distress, Unkempt - Head Exam Head Exam: ATRAUMATIC, NORMAL INSPECTION, NORMOCEPHALIC - Eye Exam Eye Exam: EOMI, Normal appearance - ENT Exam ENT Exam: Mucous Membranes Moist - Neck Exam Neck exam: Negative for: Lymphadenopathy, Tenderness - Respiratory Exam Respiratory Exam: Wheezes - Cardiovascular Exam Cardiovascular Exam: REGULAR RHYTHM - GI/Abdominal Exam GI & Abdominal Exam: Soft. absent: Distended - Extremities Exam Extremities exam: Positive for: pedal edema, pedal pulses present - Neurological Exam Neurological exam: Alert, Oriented x3 Results - Vital Signs Recent Vital Signs: Last Vital Signs Temp 98.4 F 05/25/17 21:06 Pulse 100 H 05/25/17 19:21 Resp 20 05/25/17 19:21 BP 105/64 05/25/17 19:21 Pulse Ox 96 05/25/17 19:21 - Labs Result Diagrams: 05/25/17 18:05 05/25/17 18:05 Labs: Laboratory Results - last 24 hr 05/25/17 05/25/17 05/25/17 18:05 18:05 20:40 WBC 14.4 H RBC 4.23 Hgb 13.5 Hct 41.8 MCV 98.8 MCH 31.9 MCHC 32.3 RDW 14.5 Plt Count 385 MPV 9.8 Gran % 54.4 Lymph % (Auto) 35.6 H Kay % (Auto) 7.3 H Eos % (Auto) 2.4 Baso % (Auto) 0.3 Gran # 7.82 H Lymph # (Auto) 5.1 H Kay # (Auto) 1.1 H Eos # (Auto) 0.3 Baso # (Auto) 0.04 Sodium 143 Potassium 3.9 Chloride 103 Carbon Dioxide 24 Anion Gap 20 BUN 4 L Creatinine 0.5 L Est GFR ( Amer) > 60 Est GFR (Non-Af Amer) > 60 Random Glucose 148 H Calcium 8.7 Total Bilirubin 0.4 AST 75 H D ALT 97 H Alkaline Phosphatase 99 NT-Pro-B Natriuret Pep 18.8 Total Protein 6.4 Albumin 3.4 Globulin 2.9 Albumin/Globulin Ratio 1.2 Influenza Typ A,B (EIA) Negative for flu a/b Assessment & Plan - Assessment and Plan (Free Text) Assessment: Ms. Chambers is a 46 year old female with a past medical history significant for COPD, asthma, alcohol abuse, heroin abuse (snort and inject), and hepatitis C with cirrhosis who presents with shortness of breath which began in the afternoon today and cough. Plan: 1. COPD/Asthma Exacerbation -Chest X-Ray pending official read -Levaquin 500mg IVPB QD -IV Solu-medrol 40mg Q12H -Duonebs 3ml IH [id number] JACK and [id number] PRN -Oxygen 2L PRN -continue home singulair 2. Alcohol Abuse/Withdrawal -Ativan 1mg Q6H PRN -Banana Bag at 100mls/hr -Alcohol serum pending -CIWA assessment Q4H -Aspiration and Seizure precautions 3. History of IVDU/Heroin abuse -UDS pending 4. Elevated LFTs - 2/2 to ETOH use vs Hep C - avoid hepatotoxins - monitor closely via CMP GI Prophylaxis: Protonix DVT Prophylaxis: SCD's <Manuela Louise - Last Filed: 05/26/17 04:30> Results - Vital Signs Recent Vital Signs: Last Vital Signs Temp 98.1 F 05/26/17 01:14 Pulse 112 H 05/26/17 01:14 Resp 18 05/26/17 01:14 BP 131/74 05/26/17 01:14 Pulse Ox 98 05/26/17 01:14 - Labs Result Diagrams: 05/25/17 18:05 05/25/17 18:05
[2017-05-25] MEDS ORDERED: Folic Acid 1 MG, Thiamine 100 MG, Multivitamin (MVI) 10 ML in Dextrose 5% In Water 1,00... IV SCH (21:45)
[2017-05-25] MEDS ORDERED: Albuterol HFA 90 mcg/actuation (8 g) IH PRN (21:47)
[2017-05-25] MEDS ORDERED: methylPREDNISolone 40 MG in Sodium Chloride 0.9% 100 ML IVPB SCH (22:00)
[2017-05-25] MEDS: MethylPREDNISolone 40 mg Vial IV SCH (22:15)
[2017-05-26] MEDS: Albuterol-Ipratrop 3 mg / 0.5 (3 ml) UD IH SCH ×6 (01:20→19:47)
[2017-05-26] MEDS: Pantoprazole 40 mg EC Tab PO SCH (06:15)
[2017-05-26 07:31] LABS: BASO # 0.01 K/mm3 (0.0-2.0); BASO % 0.1 % (0.0-3.0); EOS % 0.1 % (1.5-5.0); GRAN # 9.69 (1.4-6.5); GRAN % 87.1 % (50.0-68.0); HEMOGLOBIN 12.1 g/dL (12.0-16.0); LYMPH % 8.6 % (22.0-35.0); MEAN CELL VOLUME 99.5 fl (80.0-105.0); MEAN CORPUSCULAR HEMOGLOBIN 31.2 pg (25.0-35.0); MEAN CORPUSCULAR HGB CONC 31.3 g/dl (31.0-37.0); MEAN PLATELET VOLUME 10.5 fl (7.0-11.0); MONO # 0.5 (0.1-0.6); MONO % 4.1 % (1.0-6.0); RBC 3.88 10^6/uL (3.5-6.1); RED CELL DISTRIBUTION WIDTH 14.4 % (11.5-14.5); WHITE BLOOD COUNT 11.1 10^3/ul (4.5-11.0)
[2017-05-26 07:50] LABS: ALB/GLOB RATIO 1.2 (1.1-1.8); ALBUMIN 3.2 g/dL (3.0-4.8); ALT/SGPT 85 U/L (7-56); AST/SGOT 48 U/L (14-36); BLOOD UREA NITROGEN 9 mg/dL (7-21); CALCIUM 8.8 mg/dL (8.4-10.5); GFR AFRICAN-AMERICAN > 60; GFR NON-AFRICAN AMERICAN > 60
--- NOTE | 2017-05-26 09:06 | RAD ---
HISTORY: sob/asthma exacerbation COMPARISON: Comparison is made with 05/10/2007 FINDINGS: LUNGS: No evidence of new infiltrate or consolidation in the lungs. PLEURA: No significant pleural effusion identified, no pneumothorax apparent. CARDIOVASCULAR: Normal. OSSEOUS STRUCTURES: Old right rib fractures are noted. VISUALIZED UPPER ABDOMEN: Normal. OTHER FINDINGS: None. IMPRESSION: No active disease.
[2017-05-26] MEDS: MethylPREDNISolone 40 mg Vial IV SCH (09:38)
--- NOTE | 2017-05-26 13:08 | CP.PCM.PN ---
<EdgarAubrie - Last Filed: 05/26/17 13:05> Subjective - Date & Time of Evaluation Date of Evaluation: 05/26/17 Time of Evaluation: 07:30 - Subjective Subjective: Patient seen and examined at bedside. No acute events overnight. Patient resting comfortably in bed. She says the SOB has improved but she is not sleeping well and is requesting trazadone. She also complains of headache. Patient denies chest pain, palpitations, abdominal pain, n/v/d/c, leg pain/ swelling. Objective - Vital Signs/Intake and Output Vital Signs (last 24 hours): Temp Pulse Resp BP Pulse Ox 98.1 F 112 H 22 116/85 99 05/26/17 06:00 05/26/17 06:00 05/26/17 06:00 05/26/17 06:00 05/26/17 06:00 Intake and Output: 05/26/17 05/26/17 06:59 18:59 Intake Total 1100 Balance 1100 - Medications Medications: Current Medications Albuterol/Ipratropium (Duoneb 3 Mg/0.5 Mg (3 Ml) Ud) 3 ml IH [id number] [facility] Last Admin: 05/26/17 11:35 Dose: 3 ml Albuterol/Ipratropium (Duoneb 3 Mg/0.5 Mg (3 Ml) Ud) 3 ml IH Q2H PRN PRN Reason: Shortness of Breath Folic Acid (Folic Acid) 1 mg PO DAILY [facility] Last Admin: 05/26/17 09:36 Dose: 1 mg Lorazepam (Ativan) 1 mg IVP Q6H PRN; Protocol PRN Reason: Anxiety Last Admin: 05/26/17 07:56 Dose: 1 mg Methylprednisolone (Solu-Medrol) 40 mg IV Q12 JACK Last Admin: 05/26/17 09:38 Dose: 40 mg Montelukast Sodium (Singulair) 10 mg PO HS [facility] Last Admin: 05/25/17 22:25 Dose: 10 mg Multivitamins (Thera Tab) 1 tab PO DAILY [facility] Pantoprazole Sodium (Protonix Ec Tab) 40 mg PO 0600 [facility] Last Admin: 05/26/17 06:15 Dose: 40 mg Thiamine HCl (Vitamin B1 Tab) 100 mg PO DAILY [facility] - Labs Labs: 05/26/17 07:00 05/26/17 07:00 - Constitutional Appears: Non-toxic, No Acute Distress, Unkempt - Head Exam Head Exam: NORMAL INSPECTION - Eye Exam Eye Exam: EOMI, Normal appearance, PERRL - ENT Exam ENT Exam: Mucous Membranes Moist - Respiratory Exam Respiratory Exam: Wheezes (expiratory), NORMAL BREATHING PATTERN. absent: Accessory Muscle Use, Rales, Rhonchi, Respiratory Distress - Cardiovascular Exam Cardiovascular Exam: RRR, +S1, +S2 - GI/Abdominal Exam GI & Abdominal Exam: Soft, Normal Bowel Sounds. absent: Distended, Tenderness - Extremities Exam Extremities Exam: Normal Inspection. absent: Calf Tenderness, Pedal Edema - Neurological Exam Neurological Exam: Alert, Awake, Oriented x3 - Psychiatric Exam Psychiatric exam: Normal Affect, Normal Mood - Skin Skin Exam: Dry, Intact, Normal Color, Warm Assessment and Plan - Assessment and Plan (Free Text) Assessment: 46 year old female with a past medical history significant for COPD, asthma, alcohol abuse, heroin abuse (snort and inject), and hepatitis C with cirrhosis who presents with shortness of breath and cough. Plan: 1. COPD/Asthma Exacerbation -Chest X-Ray: NAD -Solu-medrol 40mg daily -Duonebs 3ml IH [id number] JACK and [id number] PRN -Oxygen 2L PRN -continue home singulair 2. Alcohol Abuse/Withdrawal -Ativan 1mg Q6H PRN -Vit B1 100 mg QD -Multivitamin QD -Folic acid 1 mg PO QD -Alcohol serum pending -CIWA assessment Q4H -Aspiration and Seizure precautions 3. History of IVDU/Heroin abuse -UDS pending -Alcohol 217 4. Elevated LFTs - 2/2 to ETOH use vs Hep C - avoid hepatotoxins - monitor closely via CMP GI Prophylaxis: Protonix DVT Prophylaxis: SCD's <Soo Cardona - Last Filed: 05/27/17 11:58> Objective - Vital Signs/Intake and Output Vital Signs (last 24 hours): Temp Pulse Resp BP Pulse Ox 97.4 F L 112 H 20 142/97 H 97 05/27/17 08:03 05/27/17 10:00 05/27/17 08:03 05/27/17 08:03 05/27/17 08:03 - Medications Medications: Current Medications Albuterol/Ipratropium (Duoneb 3 Mg/0.5 Mg (3 Ml) Ud) 3 ml IH Q2H PRN PRN Reason: Shortness of Breath Albuterol/Ipratropium (Duoneb 3 Mg/0.5 Mg (3 Ml) Ud) 3 ml IH Q3H JACK Folic Acid (Folic Acid) 1 mg PO DAILY [facility] Last Admin: 05/27/17 09:59 Dose: 1 mg Lorazepam (Ativan) 1 mg IVP Q6H PRN; Protocol PRN Reason: Anxiety Last Admin: 05/27/17 09:57 Dose: 1 mg Methylprednisolone (Solu-Medrol) 40 mg IV DAILY [facility] Last Admin: 05/27/17 10:00 Dose: 40 mg Montelukast Sodium (Singulair) 10 mg PO HS [facility] Last Admin: 05/26/17 21:34 Dose: 10 mg Multivitamins (Thera Tab) 1 tab PO DAILY [facility] Last Admin: 05/27/17 10:01 Dose: 1 tab Pantoprazole Sodium (Protonix Ec Tab) 40 mg PO 0600 [facility] Last Admin: 05/27/17 05:25 Dose: 40 mg Thiamine HCl (Vitamin B1 Tab) 100 mg PO DAILY [facility] Last Admin: 05/27/17 10:00 Dose: 100 mg - Labs Labs: 05/27/17 08:30 05/27/17 08:30 Attending/Attestation - Attestation I have personally seen and examined this patient.: Yes I have fully participated in the care of the patient.: Yes I have reviewed all pertinent clinical information, including history, physical exam and plan: Yes Notes (Text): 05/27/17 11:56 Patient was seen and examined with medical coding specialist. Agreed with resident assessment and plan. 46 year old female with a past medical history significant for COPD, asthma, alcohol abuse, heroin abuse (snort and inject), and hepatitis C was admitted with alcohol withdrawal and copd exacerbation.P Continue Nebs/Steroid for COPD exacerbation. Continue CIWA Protocoal. Issue of ongoing alcohol abuse, drug abuse chronic smoking and non compliance with medication was discussed in detail with patient Prognosis is guarded. Management plan was discussed in detail with patient Education was provided.
--- NOTE | 2017-05-26 23:52 | CARD ---
APPROVED REPORT EKG Measurement Heart [id number] <Conclusion> Sinus tachycardia Otherwise normal ECG
[2017-05-27] MEDS: Albuterol-Ipratrop 3 mg / 0.5 (3 ml) UD IH SCH ×7 (01:02→19:15)
[2017-05-27] MEDS: Pantoprazole 40 mg EC Tab PO SCH (05:25)
[2017-05-27 08:55] LABS: BASO # 0.02 K/mm3 (0.0-2.0); BASO % 0.1 % (0.0-3.0); EOS % 0.2 % (1.5-5.0); GRAN # 13.69 (1.4-6.5); GRAN % 75.1 % (50.0-68.0); HEMOGLOBIN 12.8 g/dL (12.0-16.0); LYMPH # 3.4 (1.2-3.4); LYMPH % 18.8 % (22.0-35.0); MEAN CELL VOLUME 100.3 fl (80.0-105.0); MEAN CORPUSCULAR HEMOGLOBIN 32.1 pg (25.0-35.0); MEAN PLATELET VOLUME 9.9 fl (7.0-11.0); MONO # 1.1 (0.1-0.6); MONO % 5.8 % (1.0-6.0); RBC 3.99 10^6/uL (3.5-6.1); RED CELL DISTRIBUTION WIDTH 14.4 % (11.5-14.5); WHITE BLOOD COUNT 18.2 10^3/ul (4.5-11.0)
[2017-05-27 09:21] LABS: ALB/GLOB RATIO 1.1 (1.1-1.8); ALBUMIN 3.2 g/dL (3.0-4.8); ALT/SGPT 66 U/L (7-56); AST/SGOT 37 U/L (14-36); BLOOD UREA NITROGEN 17 mg/dL (7-21); CALCIUM 9.1 mg/dL (8.4-10.5); GFR AFRICAN-AMERICAN > 60; GFR NON-AFRICAN AMERICAN > 60
[2017-05-27] MEDS: MethylPREDNISolone 40 mg Vial IV SCH (10:00)
[2017-05-27] MEDS: Multivitamin Therapeutic Tab PO SCH (10:01)
--- NOTE | 2017-05-27 10:40 | CP.PCM.PN ---
<Constance Michael - Last Filed: 05/27/17 10:37> Subjective - Date & Time of Evaluation Date of Evaluation: 05/27/17 Time of Evaluation: 10:37 - Subjective Subjective: Constance Michael, PGY1, Medicine Progress Note for Dr Cardona: Patient seen and examined at bedside. No acute events overnight. Pt reports that she is still sob. Reports tremors, mild diaphoresis. Denies fever, chills, nausea, vomiting, abdominal pain, leg swelling. Objective - Vital Signs/Intake and Output Vital Signs (last 24 hours): Temp Pulse Resp BP Pulse Ox 97.4 F L 89 20 142/97 H 97 05/27/17 08:03 05/27/17 08:03 05/27/17 08:03 05/27/17 08:03 05/27/17 08:03 - Medications Medications: Current Medications Albuterol/Ipratropium (Duoneb 3 Mg/0.5 Mg (3 Ml) Ud) 3 ml IH Q2H PRN PRN Reason: Shortness of Breath Albuterol/Ipratropium (Duoneb 3 Mg/0.5 Mg (3 Ml) Ud) 3 ml IH Q3H JACK Folic Acid (Folic Acid) 1 mg PO DAILY [facility] Last Admin: 05/27/17 09:59 Dose: 1 mg Lorazepam (Ativan) 1 mg IVP Q6H PRN; Protocol PRN Reason: Anxiety Last Admin: 05/27/17 09:57 Dose: 1 mg Methylprednisolone (Solu-Medrol) 40 mg IV DAILY [facility] Last Admin: 05/27/17 10:00 Dose: 40 mg Montelukast Sodium (Singulair) 10 mg PO HS JACK Last Admin: 05/26/17 21:34 Dose: 10 mg Multivitamins (Thera Tab) 1 tab PO DAILY [facility] Last Admin: 05/27/17 10:01 Dose: 1 tab Pantoprazole Sodium (Protonix Ec Tab) 40 mg PO 0600 JACK Last Admin: 05/27/17 05:25 Dose: 40 mg Thiamine HCl (Vitamin B1 Tab) 100 mg PO DAILY [facility] Last Admin: 05/27/17 10:00 Dose: 100 mg - Labs Labs: 05/27/17 08:30 05/27/17 08:30 - Constitutional Appears: Non-toxic, Unkempt, Chronically Ill - Head Exam Head Exam: ATRAUMATIC, NORMOCEPHALIC - Eye Exam Eye Exam: EOMI, Normal appearance, PERRL. absent: Conjunctival injection, Nystagmus, Scleral icterus Pupil Exam: NORMAL ACCOMODATION, PERRL. absent: Fixed, Irregular, Unequal - ENT Exam ENT Exam: Mucous Membranes Moist - Neck Exam Neck Exam: Full ROM - Respiratory Exam Respiratory Exam: Wheezes (b/l throughout lung dean). absent: Accessory Muscle Use, Chest Wall Tenderness, Rales, Rhonchi, Respiratory Distress, Stridor - Cardiovascular Exam Cardiovascular Exam: RRR, +S1, +S2. absent: Murmur - GI/Abdominal Exam GI & Abdominal Exam: Soft, Normal Bowel Sounds. absent: Distended, Guarding, Tenderness, Mass, Organomegaly, Rebound - Extremities Exam Extremities Exam: Normal Inspection. absent: Calf Tenderness, Pedal Edema - Back Exam Back Exam: NORMAL INSPECTION - Neurological Exam Neurological Exam: Alert, Awake, Oriented x3 Additional comments: + hand tremors - Psychiatric Exam Psychiatric exam: Normal Affect, Normal Mood - Skin Skin Exam: Dry, Normal Color, Warm Assessment and Plan - Assessment and Plan (Free Text) Assessment: 46 year old female with a past medical history significant for frequent [facility] [place] for same complaints, COPD, asthma, alcohol abuse, heroin abuse ( snort and inject), and hepatitis C with cirrhosis, admitted for COPD exacerbation, alcohol withdrawal: 1. COPD/Asthma Exacerbation -Chest X-Ray: NAD -Solu-medrol 40mg daily -increased Duonebs 3ml IH to [id number] JACK and [id number] PRN -Oxygen 2L PRN -continue home singulair 2. Alcohol Abuse/Withdrawal -Ativan 1mg Q6H PRN -Vit B1 100 mg QD -Multivitamin QD -Folic acid 1 mg PO QD -Alcohol serum pending -CIWA assessment Q4H -Aspiration and Seizure precautions -Alcohol 217 3. History of IVDU/Heroin abuse -advised cessation 4. Elevated LFTs - 2/2 to ETOH use vs Hep C - avoid hepatotoxins - monitor closely via [facility] GI Prophylaxis: Protonix DVT Prophylaxis: SCD's Discussed with Dr Cardona. <Soo Cardona - Last Filed: 05/27/17 12:01> Objective - Vital Signs/Intake and Output Vital Signs (last 24 hours): Temp Pulse Resp BP Pulse Ox 97.4 F L 112 H 20 142/97 H 97 05/27/17 08:03 05/27/17 10:00 05/27/17 08:03 05/27/17 08:03 05/27/17 08:03 - Medications Medications: Current Medications Albuterol/Ipratropium (Duoneb 3 Mg/0.5 Mg (3 Ml) Ud) 3 ml IH Q2H PRN PRN Reason: Shortness of Breath Albuterol/Ipratropium (Duoneb 3 Mg/0.5 Mg (3 Ml) Ud) 3 ml IH Q3H JACK Folic Acid (Folic Acid) 1 mg PO DAILY [facility] Last Admin: 05/27/17 09:59 Dose: 1 mg Lorazepam (Ativan) 1 mg IVP Q6H PRN; Protocol PRN Reason: Anxiety Last Admin: 05/27/17 09:57 Dose: 1 mg Methylprednisolone (Solu-Medrol) 40 mg IV DAILY [facility] Last Admin: 05/27/17 10:00 Dose: 40 mg Montelukast Sodium (Singulair) 10 mg PO HS [facility] Last Admin: 05/26/17 21:34 Dose: 10 mg Multivitamins (Thera Tab) 1 tab PO DAILY [facility] Last Admin: 05/27/17 10:01 Dose: 1 tab Pantoprazole Sodium (Protonix Ec Tab) 40 mg PO 0600 [facility] Last Admin: 05/27/17 05:25 Dose: 40 mg Thiamine HCl (Vitamin B1 Tab) 100 mg PO DAILY [facility] Last Admin: 05/27/17 10:00 Dose: 100 mg - Labs Labs: 05/27/17 08:30 05/27/17 08:30 Attending/Attestation - Attestation I have personally seen and examined this patient.: Yes I have fully participated in the care of the patient.: Yes I have reviewed all pertinent clinical information, including history, physical exam and plan: Yes Notes (Text): 05/27/17 11:59 Patient was seen and examined with outside medical sales representative. Agreed with resident assessment and plan. 46 year old female with a past medical history significant for COPD, asthma, alcohol abuse, heroin abuse (snort and inject), and hepatitis C was admitted with alcohol withdrawal and copd exacerbation. Patient is still wheezing, will continue Nebs/Steroid for COPD exacerbation. Continue CIWA Protocoal. Issue of ongoing alcohol abuse, drug abuse chronic smoking and non compliance with medication was discussed in detail with patient Prognosis is guarded. Management plan was discussed in detail with patient Education was provided.
[2017-05-28] MEDS: Albuterol-Ipratrop 3 mg / 0.5 (3 ml) UD IH SCH ×8 (01:00→23:00)
[2017-05-28] MEDS: Pantoprazole 40 mg EC Tab PO SCH (05:27)
[2017-05-28 06:36] LABS: BASO # 0.01 K/mm3 (0.0-2.0); BASO % 0.1 % (0.0-3.0); EOS % 0.2 % (1.5-5.0); GRAN # 9.56 (1.4-6.5); GRAN % 70.7 % (50.0-68.0); HEMOGLOBIN 12.4 g/dL (12.0-16.0); LYMPH # 2.9 (1.2-3.4); LYMPH % 21.5 % (22.0-35.0); MEAN CORPUSCULAR HEMOGLOBIN 31.5 pg (25.0-35.0); MEAN CORPUSCULAR HGB CONC 31.5 g/dl (31.0-37.0); MEAN PLATELET VOLUME 10.3 fl (7.0-11.0); MONO % 7.5 % (1.0-6.0); RBC 3.94 10^6/uL (3.5-6.1); RED CELL DISTRIBUTION WIDTH 14.3 % (11.5-14.5); WHITE BLOOD COUNT 13.5 10^3/ul (4.5-11.0)
[2017-05-28 06:48] LABS: ALB/GLOB RATIO 1.1 (1.1-1.8); ALBUMIN 3.1 g/dL (3.0-4.8); ALT/SGPT 49 U/L (7-56); AST/SGOT 37 U/L (14-36); BLOOD UREA NITROGEN 17 mg/dL (7-21); CALCIUM 8.7 mg/dL (8.4-10.5); GFR AFRICAN-AMERICAN > 60; GFR NON-AFRICAN AMERICAN > 60
[2017-05-28] MEDS: MethylPREDNISolone 40 mg Vial IV SCH (09:07)
[2017-05-28] MEDS: Multivitamin Therapeutic Tab PO SCH (09:08)
--- NOTE | 2017-05-28 11:39 | CP.PCM.PN ---
<Constance Michael - Last Filed: 05/28/17 11:35> Subjective - Date & Time of Evaluation Date of Evaluation: 05/28/17 Time of Evaluation: 11:35 - Subjective Subjective: Constance Michael, PGY1, Medicine Progress Note for Dr Cardona: Patient seen and examined at bedside. No acute events overnight. Reports improvement in her breathing. Denies fever, chills, nausea, vomiting, abdominal pain, leg swelling. Objective - Vital Signs/Intake and Output Vital Signs (last 24 hours): Temp Pulse Resp BP Pulse Ox 97.6 F 106 H 22 123/90 99 05/28/17 07:45 05/28/17 10:00 05/28/17 07:45 05/28/17 07:45 05/28/17 07:45 - Medications Medications: Current Medications Albuterol/Ipratropium (Duoneb 3 Mg/0.5 Mg (3 Ml) Ud) 3 ml IH Q2H PRN PRN Reason: Shortness of Breath Albuterol/Ipratropium (Duoneb 3 Mg/0.5 Mg (3 Ml) Ud) 3 ml IH Q3H [facility] Last Admin: 05/28/17 11:05 Dose: 3 ml Folic Acid (Folic Acid) 1 mg PO DAILY [facility] Last Admin: 05/28/17 09:07 Dose: 1 mg Lorazepam (Ativan) 1 mg PO Q6 PRN; Protocol PRN Reason: withdrawal Last Admin: 05/28/17 09:07 Dose: 1 mg Methylprednisolone (Solu-Medrol) 40 mg IV DAILY [facility] Last Admin: 05/28/17 09:07 Dose: 40 mg Montelukast Sodium (Singulair) 10 mg PO HS [facility] Last Admin: 05/27/17 21:46 Dose: 10 mg Multivitamins (Thera Tab) 1 tab PO DAILY [facility] Last Admin: 05/28/17 09:08 Dose: 1 tab Pantoprazole Sodium (Protonix Ec Tab) 40 mg PO 0600 [facility] Last Admin: 05/28/17 05:27 Dose: 40 mg Thiamine HCl (Vitamin B1 Tab) 100 mg PO DAILY [facility] Last Admin: 05/28/17 09:08 Dose: 100 mg Trazodone HCl (Desyrel) 50 mg PO HS [facility] - Labs Labs: 05/28/17 05:00 05/28/17 05:00 - Additional Findings Additional findings: - Constitutional Appears: Non-toxic, Unkempt, Chronically Ill - Head Exam Head Exam: ATRAUMATIC, NORMOCEPHALIC - Eye Exam Eye Exam: EOMI, Normal appearance, PERRL. absent: Conjunctival injection, Nystagmus, Scleral icterus Pupil Exam: NORMAL ACCOMODATION, PERRL. absent: Fixed, Irregular, Unequal - ENT Exam ENT Exam: Mucous Membranes Moist - Neck Exam Neck Exam: Full ROM - Respiratory Exam Respiratory Exam:- Constitutional Appears: Non-toxic, Unkempt, Chronically Ill - Head Exam Head Exam: ATRAUMATIC, NORMOCEPHALIC - Eye Exam Eye Exam: EOMI, Normal appearance, PERRL. absent: Conjunctival injection, Nystagmus, Scleral icterus Pupil Exam: NORMAL ACCOMODATION, PERRL. absent: Fixed, Irregular, Unequal - ENT Exam ENT Exam: Mucous Membranes Moist - Neck Exam Neck Exam: Full ROM - Respiratory Exam Respiratory Exam: Mild Wheezes (b/l throughout lung dean). absent: Accessory Muscle Use, Chest Wall Tenderness, Rales, Rhonchi, Respiratory Distress, Stridor - Cardiovascular Exam Cardiovascular Exam: RRR, +S1, +S2. absent: Murmur - GI/Abdominal Exam GI & Abdominal Exam: Soft, Normal Bowel Sounds. absent: Distended, Guarding, Tenderness, Mass, Organomegaly, Rebound - Extremities Exam Extremities Exam: Normal Inspection. absent: Calf Tenderness, Pedal Edema - Back Exam Back Exam: NORMAL INSPECTION - Neurological Exam Neurological Exam: Alert, Awake, Oriented x3 Additional comments: + hand tremors - Psychiatric Exam Psychiatric exam: Normal Affect, Normal Mood - Skin Skin Exam: Dry, Normal Color, Warm Wheezes (b/l upper lobes). absent: Accessory Muscle Use, Chest Wall Tenderness, Rales, Rhonchi, Respiratory Distress, Stridor - Cardiovascular Exam Cardiovascular Exam: RRR, +S1, +S2. absent: Murmur - GI/Abdominal Exam GI & Abdominal Exam: Soft, Normal Bowel Sounds. absent: Distended, Guarding, Tenderness, Mass, Organomegaly, Rebound - Extremities Exam Extremities Exam: Normal Inspection. absent: Calf Tenderness, Pedal Edema - Back Exam Back Exam: NORMAL INSPECTION - Neurological Exam Neurological Exam: Alert, Awake, Oriented x3 Additional comments: + mild hand tremors - Psychiatric Exam Psychiatric exam: Normal Affect, Normal Mood - Skin Skin Exam: Dry, Normal Color, Warm Assessment and Plan - Assessment and Plan (Free Text) Assessment: 46 year old female with a past medical history significant for frequent [facility] admissions for same complaints, COPD, asthma, alcohol abuse, heroin abuse ( snort and inject), and hepatitis C with cirrhosis, admitted for COPD exacerbation, alcohol withdrawal: 1. COPD/Asthma Exacerbation -Chest X-Ray: NAD -Solu-medrol 40mg daily -C/w Duonebs 3ml IH to [id number] JACK and [id number] PRN -Oxygen 2L PRN. Will try wean off today. Communicated with nursing staff. -continue home singulair 2. Alcohol Abuse/Withdrawal -Ativan 1mg Q6H PRN -Vit B1 100 mg QD -Multivitamin QD -Folic acid 1 mg PO QD -Alcohol serum pending -CIWA assessment Q4H -Aspiration and Seizure precautions -Alcohol 217 3. History of IVDU/Heroin abuse -advised cessation 4. Elevated LFTs - 2/2 to ETOH use vs Hep C - avoid hepatotoxins - monitor closely via [facility] Dispo: Likely discharge tomorrow. GI Prophylaxis: Protonix DVT Prophylaxis: SCD's Discussed with Dr Cardona. <Soo Cardona - Last Filed: 05/28/17 15:50> Objective - Vital Signs/Intake and Output Vital Signs (last 24 hours): Temp Pulse Resp BP Pulse Ox 97.6 F 106 H 22 123/90 99 05/28/17 07:45 05/28/17 10:00 05/28/17 07:45 05/28/17 07:45 05/28/17 07:45 Intake and Output: 05/28/17 05/28/17 06:59 18:59 Intake Total 720 Balance 720 - Medications Medications: Current Medications Albuterol/Ipratropium (Duoneb 3 Mg/0.5 Mg (3 Ml) Ud) 3 ml IH Q2H PRN PRN Reason: Shortness of Breath Albuterol/Ipratropium (Duoneb 3 Mg/0.5 Mg (3 Ml) Ud) 3 ml IH Q3H JACK Last Admin: 05/28/17 14:01 Dose: 3 ml Folic Acid (Folic Acid) 1 mg PO DAILY [facility] Last Admin: 05/28/17 09:07 Dose: 1 mg Lorazepam (Ativan) 1 mg PO Q6 PRN; Protocol PRN Reason: withdrawal Last Admin: 05/28/17 09:07 Dose: 1 mg Methylprednisolone (Solu-Medrol) 40 mg IV DAILY [facility] Last Admin: 05/28/17 09:07 Dose: 40 mg Montelukast Sodium (Singulair) 10 mg PO HS [facility] Last Admin: 05/27/17 21:46 Dose: 10 mg Multivitamins (Thera Tab) 1 tab PO DAILY [facility] Last Admin: 05/28/17 09:08 Dose: 1 tab Pantoprazole Sodium (Protonix Ec Tab) 40 mg PO 0600 [facility] Last Admin: 05/28/17 05:27 Dose: 40 mg Thiamine HCl (Vitamin B1 Tab) 100 mg PO DAILY [facility] Last Admin: 05/28/17 09:08 Dose: 100 mg Trazodone HCl (Desyrel) 50 mg PO HS [facility] - Labs Labs: 05/28/17 05:00 05/28/17 05:00 Attending/Attestation - Attestation I have personally seen and examined this patient.: Yes I have fully participated in the care of the patient.: Yes I have reviewed all pertinent clinical information, including history, physical exam and plan: Yes Notes (Text): 05/28/17 15:48 Patient was seen and examined with family practice medical doctor. Agreed with resident assessment and plan. 46 year old female with a past medical history significant for COPD, asthma, alcohol abuse, heroin abuse (snort and inject), hepatitis C and non compliance was admitted with alcohol withdrawal and copd exacerbation. Patient wheezing is improving, still has dry cough, will continue Nebs/Steroid for COPD exacerbation.Wew ill switch to oral Prednisone. Continue CIWA Protocoal.There is no sign of severe alcohol withdrawal. Issue of ongoing alcohol abuse, drug abuse chronic smoking and non compliance with medication was discussed in detail with patient Prognosis is guarded. Management plan was discussed in detail with patient Education was provided.
[2017-05-29] MEDS: Albuterol-Ipratrop 3 mg / 0.5 (3 ml) UD IH SCH ×4 (00:48→11:25)
[2017-05-29] MEDS: Pantoprazole 40 mg EC Tab PO SCH (05:31)
[2017-05-29 06:39] LABS: BASO # 0.02 K/mm3 (0.0-2.0); BASO % 0.2 % (0.0-3.0); EOS # 0.2 (0.0-0.7); EOS % 1.6 % (1.5-5.0); GRAN # 6.02 (1.4-6.5); GRAN % 62.1 % (50.0-68.0); HEMOGLOBIN 12.5 g/dL (12.0-16.0); LYMPH # 2.6 (1.2-3.4); LYMPH % 27.1 % (22.0-35.0); MEAN CELL VOLUME 98.7 fl (80.0-105.0); MEAN CORPUSCULAR HEMOGLOBIN 31.7 pg (25.0-35.0); MEAN CORPUSCULAR HGB CONC 32.1 g/dl (31.0-37.0); MEAN PLATELET VOLUME 9.8 fl (7.0-11.0); MONO # 0.9 (0.1-0.6); RBC 3.94 10^6/uL (3.5-6.1); RED CELL DISTRIBUTION WIDTH 14.4 % (11.5-14.5); WHITE BLOOD COUNT 9.7 10^3/ul (4.5-11.0)
[2017-05-29 06:47] LABS: ALB/GLOB RATIO 1.1 (1.1-1.8); ALT/SGPT 55 U/L (7-56); AST/SGOT 33 U/L (14-36); BLOOD UREA NITROGEN 16 mg/dL (7-21); CALCIUM 8.5 mg/dL (8.4-10.5); GFR AFRICAN-AMERICAN > 60; GFR NON-AFRICAN AMERICAN > 60
[2017-05-29 08:46] VITALS: BP 113/82; PULSE 102; RESP 22; TEMP 98.4; O2SAT 98
[2017-05-29] MEDS ORDERED: PrednisoLONE 15 mg/5 ml Oral Syrup (240 ml) PO SCH (10:00)
[2017-05-29] MEDS: Multivitamin Therapeutic Tab PO SCH (10:20)
--- NOTE | 2017-05-29 11:39 | CP.PCM.DIS ---
<Constance Michael - Last Filed: 05/29/17 15:29> Provider - Provider Date of Admission: 05/27/17 07:23 Attending physician: Karolina Watson MD Primary care physician: NO FAMILY PROVIDER Time Spent in preparation of Discharge (in minutes): 35 Diagnosis - Discharge Diagnosis (1) COPD exacerbation Status: Acute (2) Alcohol withdrawal Status: Acute Hospital Course - Lab Results Lab Results: Most Recent Lab Values WBC 9.7 10^3/ul (4.5-11.0) D 05/29/17 06:00 RBC 3.94 10^6/uL (3.5-6.1) 05/29/17 06:00 Hgb 12.5 g/dL (12.0-16.0) 05/29/17 06:00 Hct 38.9 % (36.0-48.0) 05/29/17 06:00 MCV 98.7 fl (80.0-105.0) 05/29/17 06:00 MCH 31.7 pg (25.0-35.0) 05/29/17 06:00 MCHC 32.1 g/dl (31.0-37.0) 05/29/17 06:00 RDW 14.4 % (11.5-14.5) 05/29/17 06:00 Plt Count 284 10^3/uL (120.0-450.0) 05/29/17 06:00 MPV 9.8 fl (7.0-11.0) 05/29/17 06:00 Gran % 62.1 % (50.0-68.0) 05/29/17 06:00 Lymph % (Auto) 27.1 % (22.0-35.0) 05/29/17 06:00 [place] % (Auto) 9.0 % (1.0-6.0) H 05/29/17 06:00 Eos % (Auto) 1.6 % (1.5-5.0) 05/29/17 06:00 Baso % (Auto) 0.2 % (0.0-3.0) 05/29/17 06:00 Gran # 6.02 (1.4-6.5) 05/29/17 06:00 Lymph # (Auto) 2.6 (1.2-3.4) 05/29/17 06:00 [place] # (Auto) 0.9 (0.1-0.6) H 05/29/17 06:00 Eos # (Auto) 0.2 (0.0-0.7) 05/29/17 06:00 Baso # (Auto) 0.02 K/mm3 (0.0-2.0) 05/29/17 06:00 Sodium 137 mmol/L (132-148) 05/29/17 06:00 Potassium 3.7 mmol/L (3.6-5.0) 05/29/17 06:00 Chloride 101 mmol/L (98-107) 05/29/17 06:00 Carbon Dioxide 28 mmol/L (21-33) 05/29/17 06:00 Anion Gap 12 (10-20) 05/29/17 06:00 BUN 16 mg/dL (7-21) 05/29/17 06:00 Creatinine 0.6 mg/dl (0.7-1.2) L 05/29/17 06:00 Est GFR ( Amer) > 60 05/29/17 06:00 Est GFR (Non-Af Amer) > 60 05/29/17 06:00 Random Glucose 90 mg/dL (70-110) 05/29/17 06:00 Calcium 8.5 mg/dL (8.4-10.5) 05/29/17 06:00 Total Bilirubin 0.4 mg/dL (0.2-1.3) 05/29/17 06:00 AST 33 U/L (14-36) 05/29/17 06:00 ALT 55 U/L (7-56) 05/29/17 06:00 Alkaline Phosphatase 66 U/L (38-126) 05/29/17 06:00 NT-Pro-B Natriuret Pep 18.8 pg/mL (0-450) 05/25/17 18:05 Total Protein 5.7 g/dL (5.8-8.3) L 05/29/17 06:00 Albumin 3.0 g/dL (3.0-4.8) 05/29/17 06:00 Globulin 2.8 gm/dL 05/29/17 06:00 Albumin/Globulin Ratio 1.1 (1.1-1.8) 05/29/17 06:00 Alcohol, Quantitative 217 mg/dL (0-10) H 05/25/17 18:05 Influenza Typ A,B (EIA) Negative for flu a/b (NEGATIVE) 05/25/17 20:40 - Hospital Course Hospital Course: 46 year old female with a past medical history significant for COPD, asthma, alcohol abuse, heroin abuse (snort and inject), and hepatitis C with cirrhosis who presents with shortness of breath which began in the afternoon today and cough. Pt admitted for COPD exacerbation, alcohol intoxication/withdrawal. Pt required IV steroids, duonebs, antibiotics. Ativan was given for withdrawal symptoms. Pts symptoms improved. Pt advised alcohol/tobacco cessation; pt states that she will try to. Pt discharged home with inhalers, prednisone tapering dose, vitamin B12, folate, thiamine. Instructed to avoid cold weather and follow up with PMD. Discharge Exam - Head Exam Head Exam: ATRAUMATIC, NORMOCEPHALIC - Eye Exam Eye Exam: EOMI, PERRL. absent: Conjunctival injection, Scleral icterus Pupil Exam: NORMAL ACCOMODATION, PERRL. absent: Irregular, Unequal - ENT Exam ENT Exam: Mucous Membranes Moist - Neck Exam Neck exam: Full Rom - Respiratory Exam Respiratory Exam: Clear to PA & Lateral, NORMAL BREATHING PATTERN. absent: Accessory Muscle Use, Rhonchi, Wheezes, Respiratory Distress - Cardiovascular Exam Cardiovascular Exam: RRR, +S1, +S2. absent: Systolic Murmur - GI/Abdominal Exam GI & Abdominal Exam: Normal Bowel Sounds, Soft. absent: Distended, Organomegaly , Rebound, Tenderness - Extremities Exam Extremities exam: normal inspection - Back Exam Back exam: NORMAL INSPECTION - Neurological Exam Neurological exam: Alert, Oriented x3 - Psychiatric Exam Psychiatric exam: Normal Affect, Normal Mood - Skin Skin Exam: Dry, Normal Color, Warm Discharge Plan - Discharge Medications Prescriptions: Albuterol HFA [Ventolin HFA 90 mcg/actuation (8 g)] 1 puff IH Q6 PRN #1 inhaler PRN Reason: Shortness Of Breath Budesonide [Pulmicort Flexhaler] 180 mcg IH BID 30 Days aer.pow.ba Folic Acid 1 mg PO DAILY #15 tab Montelukast [Singulair] 10 mg PO HS #15 tab Multivitamin Therapeutic Tab [Thera Tab] 1 tab PO DAILY #30 tab predniSONE [predniSONE Tab] 10 mg PO DAILY #3 tab predniSONE [predniSONE Tab] 40 mg PO DAILY #2 tab predniSONE [Prednisone] 20 mg PO DAILY #3 tab predniSONE [predniSONE Tab] 5 mg PO DAILY #2 tab Thiamine [Vitamin B1 Tab] 100 mg PO DAILY 30 Days tab traZODone [Desyrel] 50 mg PO HS 5 Days tab - Follow Up Plan Condition: FAIR Disposition: HOME/ ROUTINE Instructions: COPD (Chronic Obstructive Pulmonary Disease) (DC), Alcohol Withdrawal (DC) Additional Instructions: - Take Prednisone 40 mg for 2 days -> then 20 mg for 3 days -> then 10 mg for 3 days -> then 5 mg for 2 days. - Take thiamine, folic acid and vitamin b12. - Your are prescribed inhalers for home use. - F/u with PMD/neighborhood clinic in 1 week. - Return to the ER if any concerns. Referrals: FAMILY PROVIDER,NO [Primary Care Provider] - <Karolina Watson - Last Filed: 05/29/17 16:35> Provider - Provider Date of Admission: 05/27/17 07:23 Attending physician: Karolina Watson MD Primary care physician: JEIMY FAMILY PROVIDER Hospital Course - Lab Results Lab Results: Most Recent Lab Values WBC 9.7 10^3/ul (4.5-11.0) D 05/29/17 06:00 RBC 3.94 10^6/uL (3.5-6.1) 05/29/17 06:00 Hgb 12.5 g/dL (12.0-16.0) 05/29/17 06:00 Hct 38.9 % (36.0-48.0) 05/29/17 06:00 MCV 98.7 fl (80.0-105.0) 05/29/17 06:00 MCH 31.7 pg (25.0-35.0) 05/29/17 06:00 MCHC 32.1 g/dl (31.0-37.0) 05/29/17 06:00 RDW 14.4 % (11.5-14.5) 05/29/17 06:00 Plt Count 284 10^3/uL (120.0-450.0) 05/29/17 06:00 MPV 9.8 fl (7.0-11.0) 05/29/17 06:00 Gran % 62.1 % (50.0-68.0) 05/29/17 06:00 Lymph % (Auto) 27.1 % (22.0-35.0) 05/29/17 06:00 [place] % (Auto) 9.0 % (1.0-6.0) H 05/29/17 06:00 Eos % (Auto) 1.6 % (1.5-5.0) 05/29/17 06:00 Baso % (Auto) 0.2 % (0.0-3.0) 05/29/17 06:00 Gran # 6.02 (1.4-6.5) 05/29/17 06:00 Lymph # (Auto) 2.6 (1.2-3.4) 05/29/17 06:00 [place] # (Auto) 0.9 (0.1-0.6) H 05/29/17 06:00 Eos # (Auto) 0.2 (0.0-0.7) 05/29/17 06:00 Baso # (Auto) 0.02 K/mm3 (0.0-2.0) 05/29/17 06:00 Sodium 137 mmol/L (132-148) 05/29/17 06:00 Potassium 3.7 mmol/L (3.6-5.0) 05/29/17 06:00 Chloride 101 mmol/L (98-107) 05/29/17 06:00 Carbon Dioxide 28 mmol/L (21-33) 05/29/17 06:00 Anion Gap 12 (10-20) 05/29/17 06:00 BUN 16 mg/dL (7-21) 05/29/17 06:00 Creatinine 0.6 mg/dl (0.7-1.2) L 05/29/17 06:00 Est GFR ( Amer) > 60 05/29/17 06:00 Est GFR (Non-Af Amer) > 60 05/29/17 06:00 Random Glucose 90 mg/dL (70-110) 05/29/17 06:00 Calcium 8.5 mg/dL (8.4-10.5) 05/29/17 06:00 Total Bilirubin 0.4 mg/dL (0.2-1.3) 05/29/17 06:00 AST 33 U/L (14-36) 05/29/17 06:00 ALT 55 U/L (7-56) 05/29/17 06:00 Alkaline Phosphatase 66 U/L (38-126) 05/29/17 06:00 NT-Pro-B Natriuret Pep 18.8 pg/mL (0-450) 05/25/17 18:05 Total Protein 5.7 g/dL (5.8-8.3) L 05/29/17 06:00 Albumin 3.0 g/dL (3.0-4.8) 05/29/17 06:00 Globulin 2.8 gm/dL 05/29/17 06:00 Albumin/Globulin Ratio 1.1 (1.1-1.8) 05/29/17 06:00 Alcohol, Quantitative 217 mg/dL (0-10) H 05/25/17 18:05 Influenza Typ A,B (EIA) Negative for flu a/b (NEGATIVE) 05/25/17 20:40 Attending/Attestation - Attestation I have personally seen and examined this patient.: Yes I have fully participated in the care of the patient.: Yes I have reviewed all pertinent clinical information, including history, physical exam and plan: Yes Notes (Text): 05/29/17 16:31 46 year old female with past medical history of asthma/COPD, chronic ETOH abuse , substance abuse and hepatitis C with history of noncompliance who presented with alcohol withdrawal and COPD exacerbation. Symptoms improved with tapering ativan and iv steroids. She was counselled on alcohol and tobacco cessation. She was counselled on risks of continued substance abuse. She was counselled on medication compliance. Patient is discharged today on tapering po steroids to follow up with pmd or [facility]. Karolina Watson MD Hospitalist.
== END 2017-05-29 12:46 | disposition home or self-care (01) | DRG 96 ==
LOC: ED 17:35 → ERH 21:09 → 3RNO 05-26 01:09 → OBSVTOIN 05-27 07:23
PROVIDERS: ADMIT Internal Medicine; ATTEND Internal Medicine
DX: J45.901 Unspecified asthma with (acute) exacerbation (principal); J44.1 Chronic obstructive pulmonary disease with (acute) exacerbation; K74.60 Unspecified cirrhosis of liver; F10.239 Alcohol dependence with withdrawal, unspecified; F11.10 Opioid abuse, uncomplicated; B19.20 Unspecified viral hepatitis C without hepatic coma; E03.9 Hypothyroidism, unspecified; K42.9 Umbilical hernia without obstruction or gangrene; Z59.0 Homelessness; Z83.3 Family history of diabetes mellitus; F17.210 Nicotine dependence, cigarettes, uncomplicated; Z90.49 Acquired absence of other specified parts of digestive tract; Z91.19 Patient's noncompliance with other medical treatment and regimen

== ENCOUNTER 2017-06-19 17:12 | Emergency (ER) | payer MEDICAID ==
[2017-06-19 17:16] VITALS: BMI 26.5
[2017-06-19 17:20] VITALS: O2SAT 95
--- NOTE | 2017-06-19 17:20 | ED PDOC ---
Arrival/HPI - General Time Seen by Provider: 06/19/17 17:15 Historian: Patient - History of Present Illness Narrative History of Present Illness (Text): 06/19/17 17:17 46 year old female with a past medical history significant for COPD, asthma, alcohol abuse, heroin abuse (snort and inject), and hepatitis C with cirrhosis who presents with wheezing , and also c/o right hand infection for 4-6 weeks. Patient admits she was admitted for skin infection and asthma exacerbaton. Patient stated she did not follow up with clinic since has been drinking " a lot of" alcohol. Time/Duration: Other (see hpi) Context: Home Past Medical History - Provider Review Nursing Documentation Reviewed: Yes - Infectious Disease Hx of Infectious Diseases: None - Tetanus Immunization Tetanus Immunization: Unknown - Cardiac Hx Angina: No Hx Pacemaker: No - Pulmonary Hx Respiratory Disorders: Yes (CURRENTLY SMOKES CIGARETTES 10 CIG A DAY) Hx Chronic Obstructive Pulmonary Disease (COPD): Yes - Neurological Hx Neurological Disorder: Yes (CLOGGED EARS) HX Cerebrovascular Accident: No - HEENT Hx HEENT Disorder: No - Renal Hx Renal Disorder: No - Endocrine/Metabolic Hx Endocrine Disorders: Yes Hx Hypothyroidism: Yes - Hematological/Oncological Hx Blood Disorders: No Hx Cancer: No - Integumentary Hx Dermatological Disorder: Yes Other/Comment: 05/17/17 - Multiple ecchymotic areas noted to B/L UE. Patient has dried black scab to Right hand. multiple bruises left knee, swelling right knee and pain to both knees from fall 2 wks ago, multiple eccymotic arreas to left arm, small scab right arm, 2.5cm x 2cm deep red growth to rle "I have had it for years." surgical scar mid lower abd, eccymotic area to lower abd, umbilical hernia noted - Musculoskeletal/Rheumatological Hx Falls: No - Gastrointestinal Hx Gastrointestinal Disorders: Yes Hx Pancreatitis: (pt denies pancreatitis) Other/Comment: Umbilical hernia /cirrhosis/ distended abd - Genitourinary/Gynecological Hx Genitourinary Disorders: No Hx Sexually Transmitted Diseases: (pt denies trichomonas) - Psychiatric Hx Psychophysiologic Disorder: Yes Hx Anxiety: Yes Hx Depression: Yes Hx Substance Use: Yes Other/Comment: alcohol drinks 4 or 5 24 oz cans of 4-fracnes a day, 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 - Surgical History Hx Appendectomy: Yes Hx Mastectomy: No - Anesthesia Hx Anesthesia: Yes Hx Anesthesia Reactions: No Hx Malignant Hyperthermia: No - Suicidal Assessment Feels Threatened In Home Enviroment: No Family/Social History - Physician Review Nursing Documentation Reviewed: Yes Family/Social History: Other (noncontributory) Smoking Status: Current Some Days Smoker Hx Alcohol Use: Yes (current) Hx Substance Use: Yes Substance used: HEROIN Hx Substance Use Treatment: Yes Allergies/Home Meds Allergies/Adverse Reactions: Allergies No Known Allergies Allergy (Verified 05/18/17 01:26) Review of Systems - Review of Systems Constitutional: Normal. absent: Fatigue, Weight Change, Fevers Eyes: Normal. absent: Photophobia ENT: Normal. absent: Sore Throat, Rhinorrhea Respiratory: SOB, Cough, Wheezing. absent: Sputum Cardiovascular: Normal. absent: Chest Pain, Palpitations Gastrointestinal: Normal. absent: Abdominal Pain, Nausea, Vomiting Genitourinary Female: Normal. absent: Dysuria, Frequency Musculoskeletal: Normal Skin: Abscess, Cellulitis Neurological: Normal. absent: Headache, Dizziness, Focal Weakness, Gait Changes , Speech Changes, Facial Droop, Disequilibrium, Seizure Endocrine: Normal Hemo/Lymphatic: Normal Psychiatric: Normal Physical Exam Vital Signs Temp Pulse Resp BP Pulse Ox 06/19/17 20:36 98 F 106 H 20 117/83 95 06/19/17 17:20 97.7 F 108 H 20 98/72 L 95 06/19/17 17:16 97.7 F 95 Temperature: Afebrile Blood Pressure: Normal Pulse: Regular Respiratory Rate: Normal Appearance: Positive for: Well-Appearing, Non-Toxic, Comfortable Pain Distress: None Mental Status: Positive for: Alert and Oriented X 3 - Systems Exam Head: Present: Atraumatic, Normocephalic Pupils: Present: PERRL Extroacular Muscles: Present: EOMI Conjunctiva: Present: Normal Mouth: Present: Moist Mucous Membranes Pharnyx: Present: Normal. No: ERYTHEMA, EXUDATE, TONSILS ENLARGED Neck: Present: Normal Range of Motion Respiratory/Chest: Present: Clear to Auscultation, Good Air Exchange. No: Respiratory Distress, Accessory Muscle Use, Wheezes, Retracting, Rhonchi, Tachypneic Cardiovascular: Present: Regular Rate and Rhythm, Normal S1, S2. No: Murmurs Abdomen: Present: Normal Bowel Sounds. No: Tenderness, Distention, Peritoneal Signs Back: Present: Normal Inspection. No: CVA Tenderness Upper Extremity: Present: Normal ROM, Swelling, Erythema, Neurovascularly Intact , Temperature Abnormalties, Capillary Refill < 2s, Other ((+) right dorsal wound , stage 3 with trace pus, and surrounding erythema.). No: Cyanosis, Edema Lower Extremity: Present: Normal Inspection, NORMAL PULSES, Normal ROM, Neurovascularly Intact, Capillary Refill < 2 s. No: Edema Neurological: Present: GCS=15, CN II-XII Intact, Speech Normal Skin: Present: Warm, Dry, Normal Color. No: Rashes Psychiatric: Present: Alert, Oriented x 3, Normal Insight, Normal Concentration Medical Decision Making ED Course and Treatment: 06/19/17 19:28 I spoke with Lopez Quality Improvement Engineer regarding patient reason for the visit in ED , and my recommendation for admission for, hand cellulitis, and IV ABX. He stated that Dr. Garces is next. And that DR. Garces should take the next 2 admission. 06/19/17 19:[address] Garces regarding right hand infection, and asthma exacerbation. He agrees with plan for admission. I told Dr. Garces that I spoke with Lopez Quality Improvement Engineer, and that he is supposed to take this patient and next one. 06/19/17 19:40 I spoke with patient regarding the need for IV ABX, and admission is necessary. She agreed with plan for admission. Re-evaluation Time: 19:35 Reassessment Condition: Re-examined, Improving,but remains with symptoms - Lab Interpretations Lab Results: 06/19/17 18:30 06/19/17 18:30 Lab Results 06/19/17 19:14: Urine Color Yellow, Urine Appearance Sl cloudy, Urine pH 6.0, Ur Specific [place] 1.025, Urine Protein Trace H, Urine Glucose (UA) Negative, Urine Ketones Trace H, Urine Blood Large H, Urine Nitrate Negative, Urine Bilirubin Small H, Urine Urobilinogen 1.0 H, Ur Leukocyte Esterase Trace H, Urine RBC 25 - 30, Urine WBC 2 - 5, Ur Epithelial Cells 6 - 8, Urine Bacteria Mod, Urine Other Mucus, Urine HCG, Qual Negative 06/19/17 18:30: Sodium 138, Potassium 3.9, Chloride 102, Carbon Dioxide 28, Anion Gap 12, BUN 9, Creatinine 0.6 L, Est GFR ( Amer) > 60, Est GFR (Non -Af Amer) > 60, Random Glucose 80, Calcium 8.5, Phosphorus 4.7 H, Magnesium 2.0 , Total Bilirubin 0.6, AST 99 H D, ALT 80 H, Alkaline Phosphatase 104, Total Protein 6.5, Albumin 3.5, Globulin 3.1, Albumin/Globulin Ratio 1.1 06/19/17 18:30: PT 10.6, INR 0.93, APTT 27.2 06/19/17 18:30: WBC 9.6, RBC 4.15, Hgb 12.7, Hct 40.1, MCV 96.6, MCH 30.6, MCHC 31.7, RDW 14.5, Plt Count 380, MPV 9.7, Gran % 70.4 H, Lymph % (Auto) 19.4 L, [place] % (Auto) 8.3 H, Eos % (Auto) 1.7, Baso % (Auto) 0.2, Gran # 6.77 H, Lymph # (Auto) 1.9, [place] # (Auto) 0.8 H, Eos # (Auto) 0.2, Baso # (Auto) 0.02, ESR 13 I have reviewed the lab results: Yes Interpretation: Abnormal lab values - RAD Interpretation Narrative RAD Interpretations (Text): Hand x-rays: No Fx or FB CXR: NAD Radiology Orders: 06/19/17 17:24 CHEST PORTABLE [RAD] Stat 06/19/17 19:27 HAND RIGHT 3 VIEWS [RAD] Stat - Medication Orders Current Medication Orders: Discontinued Medications Sodium Chloride (Sodium Chloride 0.9%) 1,000 mls @ 999 mls/hr IV .Q1H1M STA Stop: 06/19/17 18:24 Last Admin: 06/19/17 18:49 Dose: 999 mls/hr eMAR Start Stop Document 06/19/17 18:49 DEVIKA (Rec: 06/19/17 18:49 DEVIKA [id number]) Intravenous Solution Start Date 06/19/17 Start Time 18:49 Vancomycin HCl (Vancomycin 1gm) 1 gm in 250 mls @ 167 mls/hr IVPB STAT STA PRN Reason: Protocol Stop: 06/19/17 18:53 Last Admin: 06/19/17 20:36 Dose: Not Given Non-Admin Reason: Patient Refused Piperacillin Sod/Tazobactam Sod (Zosyn 4.5 Gm In Ns 100ml) 4.5 gm in 100 mls @ 200 mls/hr IVPB STAT STA PRN Reason: Protocol Stop: 06/19/17 17:53 Last Admin: 06/19/17 18:49 Dose: 200 mls/hr eMAR Start Stop Document 06/19/17 18:49 LA (Rec: 06/19/17 18:49 DEVIKA [id number]) Intravenous Solution Start Date 06/19/17 Start Time 18:49 Levalbuterol HCl (Xopenex) 1.25 mg IH Q15M JACK Stop: 06/19/17 18:01 Last Admin: 06/19/17 18:30 Dose: 1.25 mg Disposition/Present on Arrival - Present on Arrival Any Indicators Present on Arrival: No History of DVT/PE: No History of Uncontrolled Diabetes: No Urinary Catheter: No History Surgical Site Infection Following: Abdominal Surgery, Obstetrical/ Gynecological Surgery - Disposition Have Diagnosis and Disposition been Completed?: Yes Diagnosis: Cellulitis and abscess of hand, Asthma exacerbation Disposition: HOSPITALIZED Disposition Time: 19:37 Patient Plan: Admission Condition: STABLE Forms: [employer] (Malay)
[2017-06-19 17:21] VITALS: RESP 20
[2017-06-19] MEDS ORDERED: Sodium Chloride 0.9% 1,000 ML IV STA (17:24)
[2017-06-19] MEDS ORDERED: Piperacill/Tazo 4.5gm in NS 4.5 GM/100 ML BAG IVPB STA (17:24)
[2017-06-19] MEDS ORDERED: Vancomycin 1gm in NS 250ml 1 GM/250 ML BAG IVPB STA (17:24)
[2017-06-19] MEDS: Levalbuterol 1.25 MG/3 ML Inhal Soln UD IH SCH ×3 (17:40→18:30)
[2017-06-19 18:56] LABS: BASO # 0.02 K/mm3 (0.0-2.0); BASO % 0.2 % (0.0-3.0); EOS # 0.2 (0.0-0.7); EOS % 1.7 % (1.5-5.0); GRAN # 6.77 (1.4-6.5); GRAN % 70.4 % (50.0-68.0); HEMOGLOBIN 12.7 g/dL (12.0-16.0); LYMPH # 1.9 (1.2-3.4); LYMPH % 19.4 % (22.0-35.0); MEAN CELL VOLUME 96.6 fl (80.0-105.0); MEAN CORPUSCULAR HEMOGLOBIN 30.6 pg (25.0-35.0); MEAN CORPUSCULAR HGB CONC 31.7 g/dl (31.0-37.0); MEAN PLATELET VOLUME 9.7 fl (7.0-11.0); MONO # 0.8 (0.1-0.6); MONO % 8.3 % (1.0-6.0); RBC 4.15 10^6/uL (3.5-6.1); RED CELL DISTRIBUTION WIDTH 14.5 % (11.5-14.5); WHITE BLOOD COUNT 9.6 10^3/ul (4.5-11.0)
[2017-06-19 19:04] LABS: ALB/GLOB RATIO 1.1 (1.1-1.8); ALBUMIN 3.5 g/dL (3.0-4.8); ALT/SGPT 80 U/L (7-56); AST/SGOT 99 U/L (14-36); BLOOD UREA NITROGEN 9 mg/dL (7-21); CALCIUM 8.5 mg/dL (8.4-10.5); GFR AFRICAN-AMERICAN > 60; GFR NON-AFRICAN AMERICAN > 60
[2017-06-19 19:08] LABS: INR 0.93 (0.93-1.08); PARTIAL THROMBOPLASTIN TIME 27.2 Seconds (25.1-36.5); PROTHROMBIN TIME 10.6 SECONDS (9.4-12.5)
[2017-06-19 19:25] LABS: URINE BILIRUBIN SMALL (NEGATIVE); URINE BLOOD LARGE (NEGATIVE); URINE GLUCOSE (UA) NEGATIVE (NEGATIVE); URINE LEUKOCYTE ESTERASE TRACE Leu/uL (NEGATIVE); URINE NITRATE NEGATIVE (NEGATIVE); URINE PROTEIN TRACE mg/dL (<30 mg/dL)
[2017-06-19 19:29] LABS: URINE APPEARANCE SL CLOUDY (CLEAR); URINE COLOR YELLOW (YELLOW)
[2017-06-19 19:37] LABS: HCG,QUALITATIVE URINE NEGATIVE (NEGATIVE); URINE BACTERIA MOD (NEG); URINE RBC 25 - 30 /hpf (0-2)
[2017-06-19 20:38] VITALS: BP 117/83; PULSE 106; TEMP 98
--- NOTE | 2017-06-20 02:09 | CP.PCM.PN ---
<Mehdi Villagomez - Last Filed: 06/20/17 02:05> Subjective - Date & Time of Evaluation Date of Evaluation: 06/19/17 Time of Evaluation: 20:50 - Subjective Subjective: Patient requested to sign out AMA. Patient refused to participate in interview, ROS, and physical exam. Patient refused further medical evaluation and management. After being deemed by ED to be appropriate for admission patient refused medical intervention and signed out AMA. Benefits for staying for further evaluation and treatment were discussed as well as risks and benefits for leaving against medical advice. Patient was in understanding and agreeable. Objective - Vital Signs/Intake and Output Vital Signs (last 24 hours): Temp Pulse Resp BP Pulse Ox 98 F 106 H 20 117/83 95 06/19/17 20:36 06/19/17 20:36 06/19/17 20:36 06/19/17 20:36 06/19/17 20:36 - Labs Labs: 06/19/17 18:30 06/19/17 18:30 PT 10.6 SECONDS (9.4-12.5) 06/19/17 18:30 INR 0.93 (0.93-1.08) 06/19/17 18:30 APTT 27.2 Seconds (25.1-36.5) 06/19/17 18:30 <Ingrid Garces - Last Filed: 06/20/17 02:41> Objective - Vital Signs/Intake and Output Vital Signs (last 24 hours): Temp Pulse Resp BP Pulse Ox 98 F 106 H 20 117/83 95 06/19/17 20:36 06/19/17 20:36 06/19/17 20:36 06/19/17 20:36 06/19/17 20:36 - Labs Labs: 06/19/17 18:30 06/19/17 18:30 PT 10.6 SECONDS (9.4-12.5) 06/19/17 18:30 INR 0.93 (0.93-1.08) 06/19/17 18:30 APTT 27.2 Seconds (25.1-36.5) 06/19/17 18:30 Attending/Attestation - Attestation I have personally seen and examined this patient.: Yes I have fully participated in the care of the patient.: Yes I have reviewed all pertinent clinical information, including history, physical exam and plan: Yes Notes (Text): 06/20/17 02:38 Went to see patient to ER bed # 8. As soon as I went there , she said that she wanted to sign out. I informed biomedical instrument technician to have patient sign out AMA. I saw that her right arm dorsum is swollen, erythematous,with about 1 cm ulcer with necrotic base. Patient is not in acute respiratory distress.
--- NOTE | 2017-06-20 08:34 | RAD ---
HISTORY: cough COMPARISON: 05/25/2017 FINDINGS: LUNGS: No active pulmonary disease. PLEURA: No significant pleural effusion identified, no pneumothorax apparent. CARDIOVASCULAR: Normal. OSSEOUS STRUCTURES: No significant abnormalities. VISUALIZED UPPER ABDOMEN: Normal. OTHER FINDINGS: None. IMPRESSION: No active disease.
--- NOTE | 2017-06-20 08:36 | RAD ---
PROCEDURE: Right Hand Radiographs. HISTORY: r/o osteomylitis COMPARISON: None. FINDINGS: BONES: Normal. No fracture. JOINTS: Normal. No osteoarthritic changes. SOFT TISSUES: Cutaneous ulcer/ wound dorsal aspect of hand at the level of the 3rd and 4th metacarpal heads. OTHER FINDINGS: None. IMPRESSION: No plain radiographic evidence of osteomyelitis.
== END 2017-06-19 21:00 | disposition left against medical advice (07) ==
LOC: ED 17:12 → UNDOADMIN 19:38 → ERH 19:38
DX: L02.511 Cutaneous abscess of right hand (principal); L03.113 Cellulitis of right upper limb; J45.901 Unspecified asthma with (acute) exacerbation; E03.9 Hypothyroidism, unspecified; J44.9 Chronic obstructive pulmonary disease, unspecified
CPT/HCPCS: 71045; 73130; 80053; 81001; 83735; 84100; 84703; 85025; 85610; 85651; 85730; 87040; 87070; 87086; 96374; 99285; J2543; J7040

== ENCOUNTER 2017-07-02 01:01 | Emergency (ER) | payer MEDICAID ==
[2017-07-02] MEDS ORDERED: Tmp-Smz 800 mg-160 mg DS Tab PO STA (01:05)
[2017-07-02 01:06] VITALS: BMI 31.4
--- NOTE | 2017-07-02 01:11 | ED PDOC ---
Arrival/HPI - General Time Seen by Provider: 07/02/17 01:05 Historian: Patient - History of Present Illness Narrative History of Present Illness (Text): 07/02/17 01:07 46yo female with Past medical history of Asthma and drug abuse present to Emergency department with complaint of right hand wound. States she picked on the wound on her right hand and it opened up. She denies fever, purulent discharge, any other complaint. Past Medical History - Provider Review Nursing Documentation Reviewed: Yes - Infectious Disease Hx of Infectious Diseases: None - Tetanus Immunization Tetanus Immunization: Unknown - Cardiac Hx Angina: No Hx Pacemaker: No - Pulmonary Hx Respiratory Disorders: Yes (CURRENTLY SMOKES CIGARETTES 10 CIG A DAY) Hx Chronic Obstructive Pulmonary Disease (COPD): Yes - Neurological Hx Neurological Disorder: Yes (CLOGGED EARS) HX Cerebrovascular Accident: No - HEENT Hx HEENT Disorder: No - Renal Hx Renal Disorder: No - Endocrine/Metabolic Hx Endocrine Disorders: Yes Hx Hypothyroidism: Yes - Hematological/Oncological Hx Blood Disorders: No Hx Cancer: No - Integumentary Hx Dermatological Disorder: Yes Other/Comment: 05/17/17 - Multiple ecchymotic areas noted to B/L UE. Patient has dried black scab to Right hand. multiple bruises left knee, swelling right knee and pain to both knees from fall 2 wks ago, multiple eccymotic arreas to left arm, small scab right arm, 2.5cm x 2cm deep red growth to rle "I have had it for years." surgical scar mid lower abd, eccymotic area to lower abd, umbilical hernia noted - Musculoskeletal/Rheumatological Hx Falls: No - Gastrointestinal Hx Gastrointestinal Disorders: Yes Hx Pancreatitis: (pt denies pancreatitis) Other/Comment: Umbilical hernia /cirrhosis/ distended abd - Genitourinary/Gynecological Hx Genitourinary Disorders: No Hx Sexually Transmitted Diseases: (pt denies trichomonas) - Psychiatric Hx Psychophysiologic Disorder: Yes Hx Anxiety: Yes Hx Depression: Yes Hx Substance Use: Yes Other/Comment: alcohol drinks 4 or 5 24 oz cans of 4-frances a day, 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 - Surgical History Hx Appendectomy: Yes Hx Mastectomy: No - Anesthesia Hx Anesthesia: Yes Hx Anesthesia Reactions: No Hx Malignant Hyperthermia: No - Suicidal Assessment Feels Threatened In Home Enviroment: No Family/Social History - Physician Review Nursing Documentation Reviewed: Yes Family/Social History: Unknown Family HX Smoking Status: Current Some Days Smoker Hx Alcohol Use: Yes (current) Hx Substance Use: Yes Substance used: HEROIN Hx Substance Use Treatment: Yes Allergies/Home Meds Allergies/Adverse Reactions: Allergies No Known Allergies Allergy (Verified 05/18/17 01:26) Review of Systems - Physician Review All systems were reviewed & negative as marked: Yes - Review of Systems Constitutional: Normal Eyes: Normal ENT: Normal Respiratory: Normal Cardiovascular: Normal Gastrointestinal: Normal Genitourinary Female: Normal Musculoskeletal: Normal Skin: Other (Right hand wound) Neurological: Normal Endocrine: Normal Hemo/Lymphatic: Normal Psychiatric: Normal Physical Exam Vital Signs Reviewed: Yes Vital Signs Temp Pulse Resp BP Pulse Ox 07/02/17 01:23 18 98 07/02/17 01:13 97.9 F 94 H 18 123/89 97 Temperature: Afebrile Blood Pressure: Normal Pulse: Regular Respiratory Rate: Normal Appearance: Positive for: Well-Appearing, Non-Toxic, Comfortable Pain Distress: None Mental Status: Positive for: Alert and Oriented X 3 - Systems Exam Head: Present: Atraumatic, Normocephalic Pupils: Present: PERRL Extroacular Muscles: Present: EOMI Conjunctiva: Present: Normal Mouth: Present: Moist Mucous Membranes Neck: Present: Normal Range of Motion Respiratory/Chest: Present: Clear to Auscultation, Good Air Exchange. No: Respiratory Distress, Accessory Muscle Use Cardiovascular: Present: Regular Rate and Rhythm, Normal S1, S2. No: Murmurs Abdomen: Present: Normal Bowel Sounds. No: Tenderness, Distention, Peritoneal Signs Back: Present: Normal Inspection Upper Extremity: Present: Normal Inspection. No: Cyanosis, Edema Lower Extremity: Present: Normal Inspection. No: Edema Neurological: Present: GCS=15, CN II-XII Intact, Speech Normal Skin: Present: Warm, Dry, Normal Color, Other (Open dry healing wound with fibrous tissue and clear margin noted on right volar hand with underlaying swelling. No erythema, No warmth.). No: Rashes Psychiatric: Present: Alert, Oriented x 3, Normal Insight, Normal Concentration Medical Decision Making - Medication Orders Current Medication Orders: Discontinued Medications Cephalexin Monohydrate (Keflex) 500 mg PO STAT STA PRN Reason: Protocol Stop: 07/02/17 01:08 Last Admin: 07/02/17 01:20 Dose: 500 mg Trimethoprim/Sulfamethoxazole (Bactrim Ds Tab) 1 tab PO STAT STA PRN Reason: Protocol Stop: 07/02/17 01:06 Last Admin: 07/02/17 01:20 Dose: 1 tab Disposition/Present on Arrival - Present on Arrival Any Indicators Present on Arrival: No History of DVT/PE: No History of Uncontrolled Diabetes: No Urinary Catheter: No History Surgical Site Infection Followin, 5 - Disposition Have Diagnosis and Disposition been Completed?: Yes Diagnosis: Wound infection Disposition: HOME/ ROUTINE Disposition Time: 01:15 Patient Plan: Discharge Condition: STABLE Discharge Instructions (ExitCare): Wound Infection Additional Instructions: Take medication a directed Follow up with the clinic Prescriptions: Cephalexin [cephalexin] 500 mg PO TID #30 cap Sulfamethoxazole/Trimethoprim [Bactrim DS 800 mg-160 mg] 1 tab PO BID #20 tab Referrals: [facility] [Outside] - Follow up with primary Forms: [employer] (Vietnamese)
[2017-07-02 01:14] VITALS: BP 123/89; PULSE 94; RESP 18; TEMP 97.9
[2017-07-02 02:02] VITALS: O2SAT 98
== END 2017-07-02 01:23 | disposition home or self-care (01) ==
LOC: ED 01:01
DX: T14.8XXA Other injury of unspecified body region, initial encounter (principal); L08.9 Local infection of the skin and subcutaneous tissue, unspecified; E03.9 Hypothyroidism, unspecified; F17.200 Nicotine dependence, unspecified, uncomplicated

== ENCOUNTER 2017-07-31 00:20 | Inpatient (IN) | payer MEDICAID ==
[2017-07-31] MEDS: Albuterol-Ipratrop 3 mg / 0.5 (3 ml) UD IH STA ×7 (00:47→21:04)
--- NOTE | 2017-07-31 01:24 | ED PDOC ---
Arrival/HPI - General Chief Complaint: Shortness Of Breath Time Seen by Provider: 07/31/17 00:32 Historian: Patient, Partner - History of Present Illness Narrative History of Present Illness (Text): you were treated in the ED today for hx of HepC, cirrhosis, Asthma/COPD, and you stated having wheezing and asthma flare-up and otherwise without any nausea/ vomiting/headache/dizziness/chest pain/abdomen pain/numbness/tingling/loss of limb function/pain with urination/recent travel/prior blood clots/prior cancer/ hormonal use. Time/Duration: 24 hours Past Medical History - Provider Review Nursing Documentation Reviewed: Yes - Travel History Have you recently traveled outside [place] w/in the past 3 mons?: No - Infectious Disease Hx of Infectious Diseases: None - Tetanus Immunization Tetanus Immunization: Unknown - Cardiac Hx Angina: No Hx Pacemaker: No - Pulmonary Hx Respiratory Disorders: Yes (CURRENTLY SMOKES CIGARETTES 10 CIG A DAY) Hx Chronic Obstructive Pulmonary Disease (COPD): Yes - Neurological Hx Neurological Disorder: Yes (CLOGGED EARS) HX Cerebrovascular Accident: No - HEENT Hx HEENT Disorder: No - Renal Hx Renal Disorder: No - Endocrine/Metabolic Hx Endocrine Disorders: Yes Hx Hypothyroidism: Yes - Hematological/Oncological Hx Blood Disorders: No Hx Cancer: No - Integumentary Hx Dermatological Disorder: Yes Other/Comment: 05/17/17 - Multiple ecchymotic areas noted to B/L UE. Patient has dried black scab to Right hand. multiple bruises left knee, swelling right knee and pain to both knees from fall 2 wks ago, multiple eccymotic arreas to left arm, small scab right arm, 2.5cm x 2cm deep red growth to rle "I have had it for years." surgical scar mid lower abd, eccymotic area to lower abd, umbilical hernia noted - Musculoskeletal/Rheumatological Hx Falls: No - Gastrointestinal Hx Gastrointestinal Disorders: Yes Hx Pancreatitis: (pt denies pancreatitis) Other/Comment: Umbilical hernia /cirrhosis/ distended abd - Genitourinary/Gynecological Hx Genitourinary Disorders: No Hx Sexually Transmitted Diseases: (pt denies trichomonas) - Psychiatric Hx Psychophysiologic Disorder: Yes Hx Anxiety: Yes Hx Depression: Yes Hx Substance Use: Yes Other/Comment: alcohol drinks 4 or 5 24 oz cans of 4-frances a day, 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 - Surgical History Hx Appendectomy: Yes Hx Mastectomy: No - Anesthesia Hx Anesthesia: Yes Hx Anesthesia Reactions: No Hx Malignant Hyperthermia: No - Suicidal Assessment Feels Threatened In Home Enviroment: No Family/Social History - Physician Review Nursing Documentation Reviewed: Yes Family/Social History: No Known Family HX Smoking Status: Current Some Days Smoker Hx Alcohol Use: Yes (current) Hx Substance Use: Yes Substance used: HEROIN Hx Substance Use Treatment: Yes Allergies/Home Meds Allergies/Adverse Reactions: Allergies No Known Allergies Allergy (Verified 05/18/17 01:26) Review of Systems - Review of Systems Constitutional: Normal Eyes: Normal ENT: Normal Respiratory: Wheezing Cardiovascular: Normal Gastrointestinal: Normal Genitourinary Female: Normal Musculoskeletal: Normal Skin: Normal Neurological: Normal Endocrine: Normal Hemo/Lymphatic: Normal Psychiatric: Normal Physical Exam Vital Signs Reviewed: Yes Vital Signs Temp Pulse Resp BP Pulse Ox 07/31/17 02:21 94 H 20 104/62 96 07/31/17 00:35 22 07/31/17 00:31 98.1 F 98 H 22 115/85 94 L Temperature: Afebrile Blood Pressure: Hypertensive Pulse: Regular Respiratory Rate: Normal Appearance: Positive for: Well-Appearing, Non-Toxic, Comfortable Pain Distress: None Mental Status: Positive for: Alert and Oriented X 3 - Systems Exam Head: Present: Atraumatic, Normocephalic Pupils: Present: PERRL Extroacular Muscles: Present: EOMI Conjunctiva: Present: Normal Ears: Present: Normal Mouth: Present: Moist Mucous Membranes Pharnyx: Present: Normal Nose (External): Present: Atraumatic Nose (Internal): Present: Normal Inspection Neck: Present: Normal Range of Motion Respiratory/Chest: Present: Wheezes Cardiovascular: Present: Regular Rate and Rhythm Abdomen: No: Tenderness, Distention, Normal Bowel Sounds, Peritoneal Signs, Rebound, Guarding, McBurney's Point Tender, Rovsing's Sign Present, Hernias, Feeding Tubes, Ostomy Tubes, Mass/Organomegaly, Scars, Other Back: Present: Normal Inspection Upper Extremity: Present: Normal Inspection Lower Extremity: Present: Normal Inspection Neurological: Present: GCS=15, CN II-XII Intact, Speech Normal, Motor Func Grossly Intact Skin: Present: Warm, Normal Color Psychiatric: Present: Alert, Oriented x 3, Normal Insight, Normal Concentration Medical Decision Making ED Course and Treatment: you were treated in the ED today for hx of HepC, cirrhosis, Asthma/COPD, and you stated having wheezing and asthma flare-up and otherwise without any nausea/ vomiting/headache/dizziness/chest pain/abdomen pain/numbness/tingling/loss of limb function/pain with urination/recent travel/prior blood clots/prior cancer/ hormonal use. You were otherwise breathing tightly initially, pink moist lips, smiling and slowly talking with your significant other, good strength/sensation , alert/oriented, walking easily, clear lungs, no abdomen tenderness, no fever temp 98.1, stable heart rate 98, stable breathing rate 22, stable oxygen level 94% room air, elevated blood pressure 115/85 which we recommend repeat in 2-3 days primary care office to determine further treatment, you have blood tests no infection count 8, stable blood level hemoglobin 13/platelets 362, urine test negative for sign of infection, urine test negative, radiology chest xray no acute, ECG normal sinus rhythm, nebulizers treatments, prednisone , magnesium observation, done in the ED with pt saying improved somewhat but feels still symptomatic. 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 Roberts who accepted for admission inpatient. 07/31/17 04:07 07/31/17 04:13 Reassessment Condition: Re-examined, Improved - Lab Interpretations Lab Results: 07/31/17 02:30 07/31/17 03:20 Lab Results 07/31/17 03:20: Beta HCG, Quant < 2.39 07/31/17 03:20: Sodium 138, Potassium 3.7, Chloride 98, Carbon Dioxide 30, Anion Gap 14, BUN 6 L, Creatinine 0.5 L, Est GFR ( Amer) > 60, Est GFR ( Non-Af Amer) > 60, Random Glucose 121 H, Calcium 8.2 L, Magnesium 2.2, Total Bilirubin 0.3, AST 191 H D, ALT 91 H, Alkaline Phosphatase 132 H D, Lactate Dehydrogenase 675, Total Creatine Kinase 74, Troponin I < 0.01, NT-Pro-B Natriuret Pep 69.3, Total Protein 6.6, Albumin 3.7, Globulin 2.9, Albumin/ Globulin Ratio 1.3 07/31/17 03:20: PT 10.7, INR 0.94, APTT 31.9 07/31/17 03:05: Urine Opiates Screen Positive H, Urine Methadone Screen Negative , Ur Barbiturates Screen Negative, Ur Phencyclidine Scrn Negative, Ur Amphetamines Screen Negative, U Benzodiazepines Scrn Negative, U Oth Cocaine Metabols Negative, U Cannabinoids Screen Negative 07/31/17 02:30: WBC 8.3, RBC 4.40, Hgb 13.1, Hct 39.3, MCV 89.3 D, MCH 29.8, MCHC 33.3, RDW 15.5 H, Plt Count 362, MPV 10.2, Gran % 45.2 L, Lymph % (Auto) 41.6 H, [place] % (Auto) 10.3 H, Eos % (Auto) 2.3, Baso % (Auto) 0.6, Gran # 3.74, Lymph # (Auto) 3.4, [place] # (Auto) 0.9 H, Eos # (Auto) 0.2, Baso # (Auto) 0.05 07/31/17 01:40: Urine Color Yellow, Urine Appearance Clear, Urine pH 6.0, Ur Specific [place] <= 1.005, Urine Protein Negative, Urine Glucose (UA) Negative, Urine Ketones Negative, Urine Blood Negative, Urine Nitrate Negative, Urine Bilirubin Negative, Urine Urobilinogen 0.2, Ur Leukocyte Esterase Negative I have reviewed the lab results: Yes - RAD Interpretation Radiology Orders: 07/31/17 01:36 CHEST PORTABLE [RAD] Stat Client Delivery Specialist: ED Physician (cxr no acute.) - EKG Interpretation Interpreted by ED Physician: Yes (NSR, flipped t waves avr, avl, v1, v2) Type: 12 lead EKG Comparison: Similar to previous EKG (05/25/17) - Medication Orders Current Medication Orders: Discontinued Medications Albuterol/Ipratropium (Duoneb 3 Mg/0.5 Mg (3 Ml) Ud) 3 ml IH STAT STA Stop: 07/31/17 00:34 Last Admin: 07/31/17 01:18 Dose: 3 ml Albuterol/Ipratropium (Duoneb 3 Mg/0.5 Mg (3 Ml) Ud) 3 ml IH STAT STA Stop: 07/31/17 01:38 Last Admin: 07/31/17 02:00 Dose: 3 ml Albuterol/Ipratropium (Duoneb 3 Mg/0.5 Mg (3 Ml) Ud) 3 ml IH STAT STA Stop: 07/31/17 04:08 Magnesium Sulfate/Dextrose (Magnesium Sulfate 1 Gm/100 Ml D5w) 1 gm in 100 mls @ 100 mls/hr IVPB ONCE ONE Stop: 07/31/17 02:36 Last Admin: 07/31/17 03:37 Dose: 100 mls/hr eMAR Start Stop Document 07/31/17 03:37 SUZETTE (Rec: 07/31/17 03:37 SUZETTE [id number]) Intravenous Solution Start Date 07/31/17 Start Time 02:35 End Date 07/31/17 End time 03:37 Total Infusion Time 62 Prednisone (Prednisone Tab) 60 mg PO STAT ONE Stop: 07/31/17 00:34 Last Admin: 07/31/17 01:01 Dose: 60 mg Disposition/Present on Arrival - Present on Arrival Any Indicators Present on Arrival: No History of DVT/PE: No History of Uncontrolled Diabetes: No Urinary Catheter: No History of Decub. Ulcer: No History Surgical Site Infection Following: None - Disposition Have Diagnosis and Disposition been Completed?: Yes Diagnosis: COPD exacerbation Disposition: HOSPITALIZED Disposition Time: 04:14 Patient Plan: Admission Condition: STABLE Forms: Cognitive Match (Syriac)
[2017-07-31 01:59] LABS: URINE BILIRUBIN NEGATIVE (NEGATIVE); URINE BLOOD NEGATIVE (NEGATIVE); URINE GLUCOSE (UA) NEGATIVE (NEGATIVE); URINE LEUKOCYTE ESTERASE NEGATIVE Leu/uL (NEGATIVE); URINE PROTEIN NEGATIVE mg/dL (<30 mg/dL); URINE UROBILINOGEN 0.2 E.U./dL (<1 E.U./dL)
[2017-07-31 02:00] LABS: URINE APPEARANCE CLEAR (CLEAR); URINE COLOR YELLOW (YELLOW)
[2017-07-31] MEDS: Magnesium Sulfate 1 gm in D5W 1 GM/100 ML BAG IVPB ONE ×3 (02:37→21:03)
[2017-07-31 02:50] LABS: BASO # 0.05 K/mm3 (0.0-2.0); BASO % 0.6 % (0.0-3.0); EOS # 0.2 (0.0-0.7); EOS % 2.3 % (1.5-5.0); GRAN # 3.74 (1.4-6.5); GRAN % 45.2 % (50.0-68.0); HEMOGLOBIN 13.1 g/dL (12.0-16.0); LYMPH # 3.4 (1.2-3.4); LYMPH % 41.6 % (22.0-35.0); MEAN CORPUSCULAR HEMOGLOBIN 29.8 pg (25.0-35.0); MEAN CORPUSCULAR HGB CONC 33.3 g/dl (31.0-37.0); MEAN PLATELET VOLUME 10.2 fl (7.0-11.0); MONO # 0.9 (0.1-0.6); MONO % 10.3 % (1.0-6.0); RBC 4.4 10^6/uL (3.5-6.1); RED CELL DISTRIBUTION WIDTH 15.5 % (11.5-14.5); WHITE BLOOD COUNT 8.3 10^3/ul (4.5-11.0)
[2017-07-31 02:51] LABS: MEAN CELL VOLUME 89.3 fl (80.0-105.0)
[2017-07-31 03:37] LABS: ALB/GLOB RATIO 1.3 (1.1-1.8); ALBUMIN 3.7 g/dL (3.0-4.8); ALT/SGPT 91 U/L (7-56); AST/SGOT 191 U/L (14-36); BLOOD UREA NITROGEN 6 mg/dL (7-21); CALCIUM 8.2 mg/dL (8.4-10.5); GFR AFRICAN-AMERICAN > 60; GFR NON-AFRICAN AMERICAN > 60; INR 0.94 (0.93-1.08); PARTIAL THROMBOPLASTIN TIME 31.9 Seconds (25.1-36.5); PROTHROMBIN TIME 10.7 SECONDS (9.4-12.5)
[2017-07-31 03:47] LABS: BARBITURATES, UR NEGATIVE (NEGATIVE); BENZODIAZEPINES, UR NEGATIVE (NEGATIVE); OPIATES, UR POSITIVE (NEGATIVE); PHENCYCLIDINE, UR NEGATIVE (NEGATIVE)
[2017-07-31 03:51] LABS: B-TYPE NATRIURETIC PEPTIDE 69.3 pg/mL (0-450); TROPONIN I < 0.01 ng/mL
[2017-07-31] MEDS ORDERED: Multivitamin (MVI) 10 ML, Thiamine 100 MG, Folic Acid 1 MG in Sodium Chloride 0.9% 1,00... IV ONE (04:28)
[2017-07-31] MEDS ORDERED: Levalbuterol 1.25 MG/3 ML Inhal Soln UD IH PRN (04:28)
--- NOTE | 2017-07-31 04:45 | CP.PCM.HP ---
<Constance Michael - Last Filed: 07/31/17 06:37> History of Present Illness - History of Present Illness History of Present Illness: Constance Michael, PGY1, H&P for Dr Roberts: CC: wheezing 46 year old female with a past medical history significant for COPD, asthma, alcohol abuse, heroin abuse (snort and inject), and hepatitis C with cirrhosis, presents for wheezing that started 2 hours [employer]. Pt states that with weather changes, pt is having an exacerbation of her COPD. Reports chest tightness. Denies fever, chills, headache, nausea, vomiting, cough, sore throat, cp, diaphoresis, syncope, palpitations, abdominal pain, diarrhea, constipation, urinary symptoms, leg swelling. Pt states that she is still smoking tobacco and drinking alcohol routinely, but is trying to "cut down on it." Denies sick contacts, recent travel. In ED, trop neg x1. Pt given 3 duonebs, prednisone 60 mg, Mag sulfate. 12 point ROS obtained and negative, except as per HPI. PMD: none PMH: COPD, asthma, alcohol/heroin abuse, and hepatitis C with liver cirrhosis PSH: Appendectomy, tonsillectomy Family History: Father-DM2 Social History: Smokes 1/2 pk/day for >30 years, drinks 5-6 cans of four frances daily (14% alcohol x 24 ounces), reports prior IVDU, currently snorts heroin 2- 10 bags weekly; homeless Allergies: NKDA Home Medications: As per MAR Present on Admission - Present on Admission Any Indicators Present on Admission: No History of DVT/PE: No History of Uncontrolled Diabetes: No Urinary Catheter: No Decubitus Ulcer Present: No Review of Systems - Review of Systems All systems: reviewed and no additional remarkable complaints except Review of Systems: as per HPI Past Patient History - Infectious Disease Hx of Infectious Diseases: None - Tetanus Immunizations Tetanus Immunization: Unknown - Past Medical History & Family History Past Medical History?: Yes - Past Social History Smoking Status: Current Some Days Smoker - CARDIAC Hx Angina: No Hx Pacemaker: No - PULMONARY Hx Respiratory Disorders: Yes (CURRENTLY SMOKES CIGARETTES 10 CIG A DAY) Hx Chronic Obstructive Pulmonary Disease (COPD): Yes - NEUROLOGICAL Hx Neurological Disorder: Yes (CLOGGED EARS) HX Cerebrovascular Accident: No - HEENT Hx HEENT Problems: No - RENAL Hx Chronic Kidney Disease: No - ENDOCRINE/METABOLIC Hx Endocrine Disorders: Yes Hx Hypothyroidism: Yes - HEMATOLOGICAL/ONCOLOGICAL Hx Blood Disorders: No Hx Cancer: No - INTEGUMENTARY Hx Dermatological Problems: Yes Other/Comment: 05/17/17 - Multiple ecchymotic areas noted to B/L UE. Patient has dried black scab to Right hand. multiple bruises left knee, swelling right knee and pain to both knees from fall 2 wks ago, multiple eccymotic arreas to left arm, small scab right arm, 2.5cm x 2cm deep red growth to rle "I have had it for years." surgical scar mid lower abd, eccymotic area to lower abd, umbilical hernia noted - MUSCULOSKELETAL/RHEUMATOLOGICAL Hx Falls: No - GASTROINTESTINAL Hx Gastrointestinal Disorders: Yes Hx Pancreatitis: (pt denies pancreatitis) Other/Comment: Umbilical hernia /cirrhosis/ distended abd - GENITOURINARY/GYNECOLOGICAL Hx Genitourinary Disorders: No Hx Sexually Transmitted Disorders: (pt denies trichomonas) - PSYCHIATRIC Hx Psychophysiologic Disorder: Yes Hx Anxiety: Yes Hx Depression: Yes Hx Substance Use: Yes Other/Comment: alcohol drinks 4 or 5 24 oz cans of 4-frances a day, 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 absent: Nystagmus Pupil Exam: NORMAL ACCOMODATION, PERRL. absent: Fixed, Irregular, Miosis, Mydriatic, Unequal - ENT Exam ENT Exam: Mucous Membranes Moist, Normal Exam - Neck Exam Neck exam: Positive for: Full Rom, Normal Inspection - Respiratory Exam Respiratory Exam: Wheezes. absent: Accessory Muscle Use, Chest Wall Tenderness , Rales, Rhonchi, Respiratory Distress, Stridor - Cardiovascular Exam Cardiovascular Exam: RRR, +S1, +S2. absent: Systolic Murmur - GI/Abdominal Exam GI & Abdominal Exam: Normal Bowel Sounds, Soft. absent: Distended, Firm, Guarding, Mass, Rebound, Rigid, Tenderness - Extremities Exam Extremities exam: Positive for: normal capillary refill, pedal edema, pedal pulses present. Negative for: calf tenderness - Back Exam Back exam: NORMAL INSPECTION - Neurological Exam Neurological exam: Alert, Oriented x3 - Psychiatric Exam Psychiatric exam: Normal Affect, Normal Mood - Skin Skin Exam: Dry, Normal Color, Warm Results - Vital Signs Recent Vital Signs: Last Vital Signs Temp 98.1 F 07/31/17 00:31 Pulse 94 H 07/31/17 02:21 Resp 20 07/31/17 02:21 BP 104/62 07/31/17 02:21 Pulse Ox 96 07/31/17 02:21 - Labs Result Diagrams: 07/31/17 02:30 07/31/17 03:20 Labs: Laboratory Results - last 24 hr 07/31/17 07/31/17 07/31/17 01:40 02:30 03:05 WBC 8.3 RBC 4.40 Hgb 13.1 Hct 39.3 MCV 89.3 D MCH 29.8 MCHC 33.3 RDW 15.5 H Plt Count 362 MPV 10.2 Gran % 45.2 L Lymph % (Auto) 41.6 H [place] % (Auto) 10.3 H Eos % (Auto) 2.3 Baso % (Auto) 0.6 Gran # 3.74 Lymph # (Auto) 3.4 [place] # (Auto) 0.9 H Eos # (Auto) 0.2 Baso # (Auto) 0.05 PT INR APTT Sodium Potassium Chloride Carbon Dioxide Anion Gap BUN Creatinine Est GFR ( Amer) Est GFR (Non-Af Amer) Random Glucose Calcium Magnesium Total Bilirubin AST ALT Alkaline Phosphatase Lactate Dehydrogenase Total Creatine Kinase Troponin I NT-Pro-B Natriuret Pep Total Protein Albumin Globulin Albumin/Globulin Ratio Beta HCG, Quant Urine Color Yellow Urine Appearance Clear Urine pH 6.0 Ur Specific [place] <= 1.005 Urine Protein Negative Urine Glucose (UA) Negative Urine Ketones Negative Urine Blood Negative Urine Nitrate Negative Urine Bilirubin Negative Urine Urobilinogen 0.2 Ur Leukocyte Esterase Negative Urine Opiates Screen Positive H Urine Methadone Screen Negative Ur Barbiturates Screen Negative Ur Phencyclidine Scrn Negative Ur Amphetamines Screen Negative U Benzodiazepines Scrn Negative U Oth Cocaine Metabols Negative U Cannabinoids Screen Negative 07/31/17 07/31/17 07/31/17 03:20 03:20 03:20 WBC RBC Hgb Hct MCV MCH MCHC RDW Plt Count MPV Gran % Lymph % (Auto) [place] % (Auto) Eos % (Auto) Baso % (Auto) Gran # Lymph # (Auto) [place] # (Auto) Eos # (Auto) Baso # (Auto) PT 10.7 INR 0.94 APTT 31.9 Sodium 138 Potassium 3.7 Chloride 98 Carbon Dioxide 30 Anion Gap 14 BUN 6 L Creatinine 0.5 L Est GFR ( Amer) > 60 Est GFR (Non-Af Amer) > 60 Random Glucose 121 H Calcium 8.2 L Magnesium 2.2 Total Bilirubin 0.3 AST 191 H D ALT 91 H Alkaline Phosphatase 132 H D Lactate Dehydrogenase 675 Total Creatine Kinase 74 Troponin I < 0.01 NT-Pro-B Natriuret Pep 69.3 Total Protein 6.6 Albumin 3.7 Globulin 2.9 Albumin/Globulin Ratio 1.3 Beta HCG, Quant < 2.39 Urine Color Urine Appearance Urine pH Ur Specific [place] Urine Protein Urine Glucose (UA) Urine Ketones Urine Blood Urine Nitrate Urine Bilirubin Urine Urobilinogen Ur Leukocyte Esterase Urine Opiates Screen Urine Methadone Screen Ur Barbiturates Screen Ur Phencyclidine Scrn Ur Amphetamines Screen U Benzodiazepines Scrn U Oth Cocaine Metabols U Cannabinoids Screen Assessment & Plan - Assessment and Plan (Free Text) Assessment: 46 year old female with PMH COPD, asthma, alcohol/heroin abuse, Hepatitis C with cirrhosis, presents for wheezing: COPD Exacerbation: -Chest X-Ray pending official read -Levaquin 500mg IVPB QD -IV Solu-medrol 40mg Q12H -Duonebs 3ml IH [id number] JACK and [id number] PRN -Oxygen 2L PRN -continue home singulair Alcohol Abuse/Withdrawal: -Ativan 1mg Q6H PRN -Banana Bag at 100mls/hr -CIWA assessment Q4H -Aspiration, fall and Seizure precautions -thiamine, folic acid, MVT History of Heroin abuse -UDS pos for opiates -Monitor for withdrawal -Pt on Ativan Elevated LFTs - 2/2 to ETOH use vs Hep C - avoid hepatotoxins - monitor closely via CMP GI Prophylaxis: Protonix DVT Prophylaxis: SCDs Discussed with Dr Roberts. - Date & Time Date: 07/31/17 Time: 04:45 <AlejandraChrist Q - Last Filed: 07/31/17 06:50> Results - Vital Signs Recent Vital Signs: Last Vital Signs Temp 98.4 F 07/31/17 05:58 Pulse 107 H 07/31/17 05:58 Resp 20 07/31/17 05:58 BP 122/83 07/31/17 05:58 Pulse Ox 98 07/31/17 05:00 - Labs Result Diagrams: 07/31/17 02:30 07/31/17 03:20 Attending/Attestation - Attestation I have personally seen and examined this patient.: Yes I have fully participated in the care of the patient.: Yes I have reviewed all pertinent clinical information: Yes
[2017-07-31] MEDS: Pantoprazole 20 mg EC Tab PO SCH ×2 (06:56→17:02)
[2017-07-31] MEDS: Levalbuterol 1.25 MG/3 ML Inhal Soln UD IH SCH ×3 (07:50→21:45)
--- NOTE | 2017-07-31 08:24 | RAD ---
HISTORY: 46yoF wheezing/sob COMPARISON: 06/19/2017. FINDINGS: LUNGS: The lungs are clear. PLEURA: No significant pleural effusion identified, no pneumothorax apparent. CARDIOVASCULAR: Normal. OSSEOUS STRUCTURES: There are old fracture deformities in the right posterior 7th and 8th ribs. VISUALIZED UPPER ABDOMEN: Normal. OTHER FINDINGS: None. IMPRESSION: No active pulmonary disease.
[2017-07-31] MEDS: Multi Vitamins 15 mL UD Oral Solution PO SCH (10:07)
[2017-07-31] MEDS: MethylPREDNISolone 40 mg Vial IVP SCH ×2 (10:08→22:12)
--- NOTE | 2017-07-31 20:34 | CARD ---
APPROVED REPORT EKG Measurement Heart [id number] <Conclusion> Normal sinus rhythm Normal ECG
[2017-07-31] MEDS: guaiFENesin 200 mg/10 ml Syrup UD PO PRN (22:12)
[2017-08-01] MEDS: Levalbuterol 1.25 MG/3 ML Inhal Soln UD IH SCH ×4 (03:00→20:43)
[2017-08-01] MEDS: guaiFENesin 200 mg/10 ml Syrup UD PO PRN (04:16)
[2017-08-01] MEDS: Pantoprazole 20 mg EC Tab PO SCH ×2 (06:33→18:20)
[2017-08-01 06:47] LABS: GRAN # 9.88 (1.4-6.5); GRAN % 85.4 % (50.0-68.0); HEMOGLOBIN 12.9 g/dL (12.0-16.0); LYMPH # 1.1 (1.2-3.4); LYMPH % 9.8 % (22.0-35.0); MEAN CELL VOLUME 89.1 fl (80.0-105.0); MEAN CORPUSCULAR HEMOGLOBIN 29.2 pg (25.0-35.0); MEAN CORPUSCULAR HGB CONC 32.7 g/dl (31.0-37.0); MEAN PLATELET VOLUME 10.2 fl (7.0-11.0); MONO # 0.6 (0.1-0.6); MONO % 4.8 % (1.0-6.0); RBC 4.42 10^6/uL (3.5-6.1); RED CELL DISTRIBUTION WIDTH 15.5 % (11.5-14.5); WHITE BLOOD COUNT 11.6 10^3/ul (4.5-11.0)
[2017-08-01 07:11] LABS: ALB/GLOB RATIO 1.2 (1.1-1.8); ALBUMIN 3.6 g/dL (3.0-4.8); ALT/SGPT 67 U/L (7-56); AST/SGOT 58 U/L (14-36); BLOOD UREA NITROGEN 11 mg/dL (7-21); CALCIUM 8.8 mg/dL (8.4-10.5); GFR AFRICAN-AMERICAN > 60; GFR NON-AFRICAN AMERICAN > 60
[2017-08-01] MEDS: MethylPREDNISolone 40 mg Vial IVP SCH ×2 (09:17→23:13)
[2017-08-01] MEDS: Multi Vitamins 15 mL UD Oral Solution PO SCH (09:17)
--- NOTE | 2017-08-01 10:29 | CP.PCM.PN ---
<Parveen Moraes - Last Filed: 08/01/17 10:18> Subjective - Date & Time of Evaluation Date of Evaluation: 08/01/17 Time of Evaluation: 10:00 - Subjective Subjective: Subjective: Patient seen and examined at bedside. Resting comfortably in bed. No acute overnight events. Patient states SOB has improved relative to baseline. Admits to experiencing tremor secondary to withdrawl. Offers no new complaints at this time. Denies fever, chills, chest pain, abdominal pain, nausea, vomiting, diarrhea, constipation, and urinary symptoms Physical Examination: - Constitutional Appears: Non-toxic, No Acute Distress - Head Exam Head Exam: ATRAUMATIC, NORMOCEPHALIC - Eye Exam Eye Exam: EOMI, Scleral icterus. absent: Nystagmus - ENT Exam ENT Exam: Mucous Membranes Moist, Normal Exam - Neck Exam Neck exam: Positive for: Full Rom, Normal Inspection - Respiratory Exam Respiratory Exam: Wheezes bilaterally. absent: Accessory Muscle Use, Chest Wall Tenderness, Rales, Rhonchi, Respiratory Distress, Stridor - Cardiovascular Exam Cardiovascular Exam: +S1, +S2. absent: Systolic Murmur - GI/Abdominal Exam GI & Abdominal Exam: Normal Bowel Sounds, Soft. absent: Distended, Firm, Guarding, Mass, Rebound, Rigid, Tenderness - Extremities Exam Extremities exam: Positive for: normal capillary refill, pedal edema, pedal pulses present. Negative for: calf tenderness - Back Exam Back exam: NORMAL INSPECTION - Neurological Exam Neurological exam: Alert, Oriented x3 - Psychiatric Exam Psychiatric exam: Normal Affect, Normal Mood - Skin Skin Exam: Dry, Normal Color, Warm Assessment and Plan: Patient is a 46 year old female with a PMHx of COPD, asthma, alcohol/heroin abuse, Hepatitis C with cirrhosis, who was admitted for evaluation and treatment of wheezing. COPD Exacerbation: -Chest X-Ray- no active pulmonary disease -IV Solu-medrol 40mg Q12H -continue with xopenox -Oxygen 2L PRN -continue home singulair Alcohol Abuse/Withdrawal: -Ativan 1mg Q6H PRN -CIWA assessment Q4H -thiamine, folic acid, MVT -Aspiration, fall and Seizure precautions History of Heroin abuse -UDS pos for opiates -Monitor for withdrawal -Ativan prn Elevated LFTs - 2/2 to ETOH use vs Hep C - avoid hepatotoxins - monitor closely via CMP Prophylaxis: - GI Prophylaxis: Protonix - DVT Prophylaxis: SCDs Patient seen, case discussed with, and plan approved by attending physician, Dr. Rouse. Objective - Vital Signs/Intake and Output Vital Signs (last 24 hours): Temp Pulse Resp BP Pulse Ox 98.1 F 90 20 135/82 96 08/01/17 06:00 08/01/17 06:00 08/01/17 06:00 08/01/17 06:00 08/01/17 06:00 Intake and Output: 08/01/17 08/01/17 06:59 18:59 Intake Total 120 Output Total 0 Balance 120 - Medications Medications: Current Medications Folic Acid (Folic Acid) 1 mg PO DAILY [facility] Last Admin: 08/01/17 09:18 Dose: 1 mg Guaifenesin (Robitussin) 200 mg PO Q4H PRN PRN Reason: Cough and congestion Last Admin: 08/01/17 04:16 Dose: 200 mg Levalbuterol HCl (Xopenex) 1.25 mg IH [id number] JACK Last Admin: 08/01/17 07:48 Dose: 1.25 mg Levalbuterol HCl (Xopenex) 1.25 mg IH Q2H PRN PRN Reason: Wheezing Lorazepam (Ativan) 1 mg IVP Q6H PRN; Protocol PRN Reason: Symptoms of alcohol withdrawl Last Admin: 08/01/17 09:18 Dose: 1 mg Methadone HCl (Methadone) 10 mg PO TID PRN PRN Reason: Pain, moderate (4-7) Last Admin: 08/01/17 09:17 Dose: 10 mg Methylprednisolone (Solu-Medrol) 40 mg IVP Q12 JACK Last Admin: 08/01/17 09:17 Dose: 40 mg Multivitamins/Vitamin C (Multi-Delyn Liquid) 15 ml PO 0800 JACK Last Admin: 08/01/17 09:17 Dose: 15 ml Pantoprazole Sodium (Protonix Ec Tab) 20 mg PO 0600,1600 JACK Last Admin: 08/01/17 06:33 Dose: 20 mg Thiamine HCl (Vitamin B1 Tab) 100 mg PO DAILY [facility] Last Admin: 08/01/17 09:19 Dose: 100 mg - Labs Labs: 08/01/17 06:20 08/01/17 06:20 PT 10.7 SECONDS (9.4-12.5) 07/31/17 03:20 INR 0.94 (0.93-1.08) 07/31/17 03:20 APTT 31.9 Seconds (25.1-36.5) 07/31/17 03:20 <PeteJunaid lopes - Last Filed: 08/02/17 14:29> Objective - Vital Signs/Intake and Output Vital Signs (last 24 hours): Temp Pulse Resp BP Pulse Ox 98.2 F 78 20 130/90 97 08/02/17 12:00 08/02/17 12:00 08/02/17 12:00 08/02/17 12:00 08/02/17 06:00 Intake and Output: 08/02/17 08/02/17 06:59 18:59 Intake Total 360 Output Total 0 Balance 360 - Medications Medications: Current Medications Folic Acid (Folic Acid) 1 mg PO DAILY [facility] Last Admin: 08/02/17 09:35 Dose: 1 mg Guaifenesin (Robitussin) 200 mg PO Q4H PRN PRN Reason: Cough and congestion Last Admin: 08/01/17 04:16 Dose: 200 mg Levalbuterol HCl (Xopenex) 1.25 mg IH [id number] [facility] Last Admin: 08/02/17 10:15 Dose: 1.25 mg Levalbuterol HCl (Xopenex) 1.25 mg IH Q2H PRN PRN Reason: Wheezing Lorazepam (Ativan) 1 mg IVP Q6H PRN; Protocol PRN Reason: Symptoms of alcohol withdrawl Last Admin: 08/02/17 09:33 Dose: 1 mg Methadone HCl (Methadone) 10 mg PO TID PRN PRN Reason: Pain, moderate (4-7) Last Admin: 08/02/17 05:50 Dose: 10 mg Methylprednisolone (Solu-Medrol) 40 mg IVP Q12 [facility] Last Admin: 08/02/17 09:35 Dose: 40 mg Multivitamins/Vitamin C (Multi-Delyn Liquid) 15 ml PO 0800 [facility] Last Admin: 08/02/17 08:29 Dose: 15 ml Pantoprazole Sodium (Protonix Ec Tab) 20 mg PO 0600,1600 [facility] Last Admin: 08/02/17 05:50 Dose: 20 mg Thiamine HCl (Vitamin B1 Tab) 100 mg PO DAILY JACK Last Admin: 08/02/17 09:35 Dose: 100 mg - Labs Labs: 08/02/17 07:00 08/02/17 07:00 PT 10.7 SECONDS (9.4-12.5) 07/31/17 03:20 INR 0.94 (0.93-1.08) 07/31/17 03:20 APTT 31.9 Seconds (25.1-36.5) 07/31/17 03:20 Attending/Attestation - Attestation I have personally seen and examined this patient.: Yes I have fully participated in the care of the patient.: Yes I have reviewed all pertinent clinical information, including history, physical exam and plan: Yes Notes (Text): 08/02/17 14:27 Attending note; Patient seen and examined with resident. Patient is a 46 year old female with history of tobacco use, COPD, alcohol and heroin abuse, and hepatitis C is admitted for COPD exacerbation. Patient is well known to our service. Noncompliance with medication. Continuous drug use with alcohol, heroin. Monitor for withdrawal symptoms. Drug abuse cessation, alcohol cessation is strongly advised. Smoking cessation is strongly advised. COPD; continue oxygen prn. duoneb, IV Solu-Medrol. Elevated LFTs; secondary to alcohol abuse. Improving slowly. Alcohol cessation/smoking cessation is strongly advised. Homelessness. prognosis is poor secondary to continue smoking, alcohol abuse, drug abuse and noncompliance with follow-up. 08/02/17 14:29
[2017-08-02] MEDS: Levalbuterol 1.25 MG/3 ML Inhal Soln UD IH SCH ×3 (03:24→14:00)
[2017-08-02] MEDS: Pantoprazole 20 mg EC Tab PO SCH (05:50)
[2017-08-02 07:06] VITALS: RESP 20; O2SAT 97
[2017-08-02 07:30] LABS: GRAN # 11.24 (1.4-6.5); GRAN % 83.4 % (50.0-68.0); HEMOGLOBIN 13.4 g/dL (12.0-16.0); LYMPH # 1.3 (1.2-3.4); LYMPH % 9.7 % (22.0-35.0); MEAN CELL VOLUME 89.3 fl (80.0-105.0); MEAN CORPUSCULAR HEMOGLOBIN 29.2 pg (25.0-35.0); MEAN CORPUSCULAR HGB CONC 32.7 g/dl (31.0-37.0); MEAN PLATELET VOLUME 10.4 fl (7.0-11.0); MONO # 0.9 (0.1-0.6); MONO % 6.9 % (1.0-6.0); RBC 4.59 10^6/uL (3.5-6.1); RED CELL DISTRIBUTION WIDTH 15.6 % (11.5-14.5); WHITE BLOOD COUNT 13.5 10^3/ul (4.5-11.0)
[2017-08-02] MEDS: Multi Vitamins 15 mL UD Oral Solution PO SCH (08:29)
[2017-08-02 09:13] LABS: ALB/GLOB RATIO 1.1 (1.1-1.8); ALBUMIN 3.5 g/dL (3.0-4.8); ALT/SGPT 55 U/L (7-56); AST/SGOT 38 U/L (14-36); BLOOD UREA NITROGEN 18 mg/dL (7-21); CALCIUM 8.6 mg/dL (8.4-10.5); GFR AFRICAN-AMERICAN > 60; GFR NON-AFRICAN AMERICAN > 60
[2017-08-02] MEDS: MethylPREDNISolone 40 mg Vial IVP SCH (09:35)
--- NOTE | 2017-08-02 10:12 | CP.PCM.DIS ---
<Parveen Moraes - Last Filed: 08/02/17 11:57> Provider - Provider Date of Admission: 07/31/17 04:10 Attending physician: Junaid Rouse MD Primary care physician: NO PRIMARY CARE PROVIDER Time Spent in preparation of Discharge (in minutes): 45 Diagnosis - Discharge Diagnosis (1) Heroin abuse Status: Chronic Priority: Medium (2) COPD exacerbation Status: Chronic Priority: Medium (3) Alcohol withdrawal Status: Resolved (4) Alcohol abuse Status: Acute Hospital Course - Lab Results Lab Results: Most Recent Lab Values WBC 13.5 10^3/ul (4.5-11.0) H 08/02/17 07:00 RBC 4.59 10^6/uL (3.5-6.1) 08/02/17 07:00 Hgb 13.4 g/dL (12.0-16.0) 08/02/17 07:00 Hct 41.0 % (36.0-48.0) 08/02/17 07:00 MCV 89.3 fl (80.0-105.0) 08/02/17 07:00 MCH 29.2 pg (25.0-35.0) 08/02/17 07:00 MCHC 32.7 g/dl (31.0-37.0) 08/02/17 07:00 RDW 15.6 % (11.5-14.5) H 08/02/17 07:00 Plt Count 393 10^3/uL (120.0-450.0) 08/02/17 07:00 MPV 10.4 fl (7.0-11.0) 08/02/17 07:00 Gran % 83.4 % (50.0-68.0) H 08/02/17 07:00 Lymph % (Auto) 9.7 % (22.0-35.0) L 08/02/17 07:00 Allen % (Auto) 6.9 % (1.0-6.0) H 08/02/17 07:00 Eos % (Auto) 0.0 % (1.5-5.0) L 08/02/17 07:00 Baso % (Auto) 0.0 % (0.0-3.0) 08/02/17 07:00 Gran # 11.24 (1.4-6.5) H 08/02/17 07:00 Lymph # (Auto) 1.3 (1.2-3.4) 08/02/17 07:00 Allen # (Auto) 0.9 (0.1-0.6) H 08/02/17 07:00 Eos # (Auto) 0.0 (0.0-0.7) 08/02/17 07:00 Baso # (Auto) 0.00 K/mm3 (0.0-2.0) 08/02/17 07:00 PT 10.7 SECONDS (9.4-12.5) 07/31/17 03:20 INR 0.94 (0.93-1.08) 07/31/17 03:20 APTT 31.9 Seconds (25.1-36.5) 07/31/17 03:20 Sodium 137 mmol/L (132-148) 08/02/17 07:00 Potassium 4.6 mmol/L (3.6-5.0) 08/02/17 07:00 Chloride 102 mmol/L (98-107) 08/02/17 07:00 Carbon Dioxide 27 mmol/L (21-33) 08/02/17 07:00 Anion Gap 13 (10-20) 08/02/17 07:00 BUN 18 mg/dL (7-21) 08/02/17 07:00 Creatinine 0.6 mg/dl (0.7-1.2) L 08/02/17 07:00 Est GFR ( Amer) > 60 08/02/17 07:00 Est GFR (Non-Af Amer) > 60 08/02/17 07:00 Random Glucose 150 mg/dL (70-110) H 08/02/17 07:00 Calcium 8.6 mg/dL (8.4-10.5) 08/02/17 07:00 Phosphorus 3.6 mg/dL (2.5-4.5) 08/02/17 07:00 Magnesium 2.1 mg/dL (1.7-2.2) 08/02/17 07:00 Total Bilirubin 0.5 mg/dL (0.2-1.3) 08/02/17 07:00 AST 38 U/L (14-36) H D 08/02/17 07:00 ALT 55 U/L (7-56) 08/02/17 07:00 Alkaline Phosphatase 98 U/L (38-126) 08/02/17 07:00 Lactate Dehydrogenase 675 U/L (333-699) 07/31/17 03:20 Total Creatine Kinase 74 U/L (35-230) 07/31/17 03:20 Troponin I < 0.01 ng/mL 07/31/17 03:20 NT-Pro-B Natriuret Pep 69.3 pg/mL (0-450) 07/31/17 03:20 Total Protein 6.7 g/dL (5.8-8.3) 08/02/17 07:00 Albumin 3.5 g/dL (3.0-4.8) 08/02/17 07:00 Globulin 3.2 gm/dL 08/02/17 07:00 Albumin/Globulin Ratio 1.1 (1.1-1.8) 08/02/17 07:00 Beta HCG, Quant < 2.39 mIU/mL (0-6.15) 07/31/17 03:20 Urine Color Yellow (YELLOW) 07/31/17 01:40 Urine Appearance Clear (CLEAR) 07/31/17 01:40 Urine pH 6.0 (4.7-8.0) 07/31/17 01:40 Ur Specific Raymond <= 1.005 (1.005-1.035) 07/31/17 01:40 Urine Protein Negative mg/dL (<30 mg/dL) 07/31/17 01:40 Urine Glucose (UA) Negative mg/dL (NEGATIVE) 07/31/17 01:40 Urine Ketones Negative mg/dL (NEGATIVE) 07/31/17 01:40 Urine Blood Negative (NEGATIVE) 07/31/17 01:40 Urine Nitrate Negative (NEGATIVE) 07/31/17 01:40 Urine Bilirubin Negative (NEGATIVE) 07/31/17 01:40 Urine Urobilinogen 0.2 E.U./dL (<1 E.U./dL) 07/31/17 01:40 Ur Leukocyte Esterase Negative Erik/uL (NEGATIVE) 07/31/17 01:40 Urine Opiates Screen Positive (NEGATIVE) H 07/31/17 03:05 Urine Methadone Screen Negative (NEGATIVE) 07/31/17 03:05 Ur Barbiturates Screen Negative (NEGATIVE) 07/31/17 03:05 Ur Phencyclidine Scrn Negative (NEGATIVE) 07/31/17 03:05 Ur Amphetamines Screen Negative (NEGATIVE) 07/31/17 03:05 U Benzodiazepines Scrn Negative (NEGATIVE) 07/31/17 03:05 U Oth Cocaine Metabols Negative (NEGATIVE) 07/31/17 03:05 U Cannabinoids Screen Negative (NEGATIVE) 07/31/17 03:05 - Hospital Course Hospital Course: Patient is a 46 year old female with PMHx COPD, asthma, ETOH abuse, heroin abuse who was admitted for evaluation and treatment of shortness of breath. With the use of physical examinations, lab work, and imaging the patient was diagnosed with and treated for COPD exacerbation, ETOH withdrawl, along with the patients chronic medical conditions. During their hospital stay the patient underwent a chest xray was reviewed, appreciated, and utilized in the management of the patients clinical course. The chest xray showed no active pulmonary disease. Patient was treated with IV steroids, xopenex, guafenisin, methadone, amongst other empiric/therapeutic medications. Patient educated to stop ETOH and substance abuse. At this time the patient is medically stable for discharge. Patient understands and appreciates discharge plan. Patient instructed to follow up with primary care physicians and referrals within three to five days from discharge. Furthermore, the patient is instructed to take medications as prescribed and to return to emergency room for evaluation of intractable headache, fever, chills, dizziness, chest pain, shortness of breath , abdominal pain, nausea, vomiting, diarrhea, constipation, and urinary symptoms. This is a brief summary of the patients hospital course. Please see patient chart for full details. Discharge Exam - Head Exam Head Exam: ATRAUMATIC, NORMOCEPHALIC - Additional Findings Additional findings: - Constitutional Appears: Non-toxic, No Acute Distress - Head Exam Head Exam: ATRAUMATIC, NORMOCEPHALIC - Eye Exam Eye Exam: EOMI, Scleral icterus. absent: Nystagmus - ENT Exam ENT Exam: Mucous Membranes Moist, Normal Exam - Neck Exam Neck exam: Positive for: Full Rom, Normal Inspection - Respiratory Exam Respiratory Exam: diminished breath sounds bilaterally; absent: Accessory Muscle Use, Chest Wall Tenderness, Rales, Rhonchi, Respiratory Distress, Stridor - Cardiovascular Exam Cardiovascular Exam: +S1, +S2. absent: Systolic Murmur - GI/Abdominal Exam GI & Abdominal Exam: Normal Bowel Sounds, Soft. absent: Distended, Firm, Guarding, Mass, Rebound, Rigid, Tenderness - Extremities Exam Extremities exam: Positive for: normal capillary refill, pedal edema, pedal pulses present. Negative for: calf tenderness - Back Exam Back exam: NORMAL INSPECTION - Neurological Exam Neurological exam: Alert, Oriented x3 - Psychiatric Exam Psychiatric exam: Normal Affect, Normal Mood - Skin Skin Exam: Dry, Normal Color, Warm Discharge Plan - Discharge Medications Prescriptions: Fluticasone/Salmeterol 250/50 [Advair Diskus] 1 puff IH Q12 #1 inhaler Methylprednisolone [Medrol Dose Pack (21 tabs)] See Taper PO DAILY #1 packet Albuterol HFA [Ventolin HFA 90 mcg/actuation (8 g)] 1 puff IH Q6H PRN #1 inhaler PRN Reason: Shortness Of Breath Azithromycin [Zithromax] 500 mg PO DAILY #5 tablet - Follow Up Plan Condition: STABLE Disposition: HOME/ ROUTINE Patient education suggested?: Yes Additional Instructions: Patient Instructions: Take medications as prescribed. Follow up with PMD and referrals within three to five days from discharge. Return to the emergency room for evaluation of intractable headache, fever, chills, dizziness, chest pain, shortness of breath, abdominal pain, nausea, vomiting, diarrhea, constipation, and urinary symptoms. Referrals: PCP,NO [Primary Care Provider] - <Junaid Rouse - Last Filed: 08/02/17 14:30> Provider - Provider Date of Admission: 07/31/17 04:10 Attending physician: Junaid Rouse MD Primary care physician: NO PRIMARY CARE PROVIDER Hospital Course - Lab Results Lab Results: Most Recent Lab Values WBC 13.5 10^3/ul (4.5-11.0) H 08/02/17 07:00 RBC 4.59 10^6/uL (3.5-6.1) 08/02/17 07:00 Hgb 13.4 g/dL (12.0-16.0) 08/02/17 07:00 Hct 41.0 % (36.0-48.0) 08/02/17 07:00 MCV 89.3 fl (80.0-105.0) 08/02/17 07:00 MCH 29.2 pg (25.0-35.0) 08/02/17 07:00 MCHC 32.7 g/dl (31.0-37.0) 08/02/17 07:00 RDW 15.6 % (11.5-14.5) H 08/02/17 07:00 Plt Count 393 10^3/uL (120.0-450.0) 08/02/17 07:00 MPV 10.4 fl (7.0-11.0) 08/02/17 07:00 Gran % 83.4 % (50.0-68.0) H 08/02/17 07:00 Lymph % (Auto) 9.7 % (22.0-35.0) L 08/02/17 07:00 Allen % (Auto) 6.9 % (1.0-6.0) H 08/02/17 07:00 Eos % (Auto) 0.0 % (1.5-5.0) L 08/02/17 07:00 Baso % (Auto) 0.0 % (0.0-3.0) 08/02/17 07:00 Gran # 11.24 (1.4-6.5) H 08/02/17 07:00 Lymph # (Auto) 1.3 (1.2-3.4) 08/02/17 07:00 Allen # (Auto) 0.9 (0.1-0.6) H 08/02/17 07:00 Eos # (Auto) 0.0 (0.0-0.7) 08/02/17 07:00 Baso # (Auto) 0.00 K/mm3 (0.0-2.0) 08/02/17 07:00 PT 10.7 SECONDS (9.4-12.5) 07/31/17 03:20 INR 0.94 (0.93-1.08) 07/31/17 03:20 APTT 31.9 Seconds (25.1-36.5) 07/31/17 03:20 Sodium 137 mmol/L (132-148) 08/02/17 07:00 Potassium 4.6 mmol/L (3.6-5.0) 08/02/17 07:00 Chloride 102 mmol/L (98-107) 08/02/17 07:00 Carbon Dioxide 27 mmol/L (21-33) 08/02/17 07:00 Anion Gap 13 (10-20) 08/02/17 07:00 BUN 18 mg/dL (7-21) 08/02/17 07:00 Creatinine 0.6 mg/dl (0.7-1.2) L 08/02/17 07:00 Est GFR ( Amer) > 60 08/02/17 07:00 Est GFR (Non-Af Amer) > 60 08/02/17 07:00 Random Glucose 150 mg/dL (70-110) H 08/02/17 07:00 Calcium 8.6 mg/dL (8.4-10.5) 08/02/17 07:00 Phosphorus 3.6 mg/dL (2.5-4.5) 08/02/17 07:00 Magnesium 2.1 mg/dL (1.7-2.2) 08/02/17 07:00 Total Bilirubin 0.5 mg/dL (0.2-1.3) 08/02/17 07:00 AST 38 U/L (14-36) H D 08/02/17 07:00 ALT 55 U/L (7-56) 08/02/17 07:00 Alkaline Phosphatase 98 U/L (38-126) 08/02/17 07:00 Lactate Dehydrogenase 675 U/L (333-699) 07/31/17 03:20 Total Creatine Kinase 74 U/L (35-230) 07/31/17 03:20 Troponin I < 0.01 ng/mL 07/31/17 03:20 NT-Pro-B Natriuret Pep 69.3 pg/mL (0-450) 07/31/17 03:20 Total Protein 6.7 g/dL (5.8-8.3) 08/02/17 07:00 Albumin 3.5 g/dL (3.0-4.8) 08/02/17 07:00 Globulin 3.2 gm/dL 08/02/17 07:00 Albumin/Globulin Ratio 1.1 (1.1-1.8) 08/02/17 07:00 Beta HCG, Quant < 2.39 mIU/mL (0-6.15) 07/31/17 03:20 Urine Color Yellow (YELLOW) 07/31/17 01:40 Urine Appearance Clear (CLEAR) 07/31/17 01:40 Urine pH 6.0 (4.7-8.0) 07/31/17 01:40 Ur Specific Raymond <= 1.005 (1.005-1.035) 07/31/17 01:40 Urine Protein Negative mg/dL (<30 mg/dL) 07/31/17 01:40 Urine Glucose (UA) Negative mg/dL (NEGATIVE) 07/31/17 01:40 Urine Ketones Negative mg/dL (NEGATIVE) 07/31/17 01:40 Urine Blood Negative (NEGATIVE) 07/31/17 01:40 Urine Nitrate Negative (NEGATIVE) 07/31/17 01:40 Urine Bilirubin Negative (NEGATIVE) 07/31/17 01:40 Urine Urobilinogen 0.2 E.U./dL (<1 E.U./dL) 07/31/17 01:40 Ur Leukocyte Esterase Negative Erik/uL (NEGATIVE) 07/31/17 01:40 Urine Opiates Screen Positive (NEGATIVE) H 07/31/17 03:05 Urine Methadone Screen Negative (NEGATIVE) 07/31/17 03:05 Ur Barbiturates Screen Negative (NEGATIVE) 07/31/17 03:05 Ur Phencyclidine Scrn Negative (NEGATIVE) 07/31/17 03:05 Ur Amphetamines Screen Negative (NEGATIVE) 07/31/17 03:05 U Benzodiazepines Scrn Negative (NEGATIVE) 07/31/17 03:05 U Oth Cocaine Metabols Negative (NEGATIVE) 07/31/17 03:05 U Cannabinoids Screen Negative (NEGATIVE) 07/31/17 03:05 Attending/Attestation - Attestation I have personally seen and examined this patient.: Yes I have fully participated in the care of the patient.: Yes I have reviewed all pertinent clinical information, including history, physical exam and plan: Yes Notes (Text): 08/02/17 14:29 Attending note; Patient seen and examined with resident. Patient is a 46 year old female with history of tobacco use, COPD, alcohol and heroin abuse, and hepatitis C is admitted for COPD exacerbation. Patient is well known to our service. Noncompliance with medication. Continuous drug use with alcohol, heroin abuse problem. Monitor for withdrawal symptoms. Drug abuse cessation, alcohol cessation is strongly advised. Smoking cessation is strongly advised. COPD; currently stable. Ambulating without difficulty. Elevated LFTs; secondary to alcohol abuse. Improving slowly. Alcohol cessation/smoking cessation is strongly advised. Will be discharged today. Follow-up with [facility] [place] clinic upon discharge. prognosis is poor secondary to continue smoking, alcohol abuse, drug abuse and noncompliance with follow-up.
[2017-08-02 13:43] VITALS: BP 130/90; PULSE 78; TEMP 98.2
== END 2017-08-02 16:07 | disposition home or self-care (01) | DRG 88 ==
LOC: ED 00:20 → ERH 04:10 → 3RSO 05:28 → 2RSO 08-01 15:01
PROVIDERS: ADMIT Internal Medicine; ATTEND Internal Medicine
DX: J44.1 Chronic obstructive pulmonary disease with (acute) exacerbation (principal); F10.239 Alcohol dependence with withdrawal, unspecified; F11.10 Opioid abuse, uncomplicated; K74.60 Unspecified cirrhosis of liver; E03.9 Hypothyroidism, unspecified; K42.9 Umbilical hernia without obstruction or gangrene; Z59.0 Homelessness; Z83.3 Family history of diabetes mellitus; Z90.49 Acquired absence of other specified parts of digestive tract; Z91.14 Patient's other noncompliance with medication regimen; Z91.19 Patient's noncompliance with other medical treatment and regimen; Z87.19 Personal history of other diseases of the digestive system; F17.210 Nicotine dependence, cigarettes, uncomplicated; S80.02XA Contusion of left knee, initial encounter; Z91.81 History of falling

== ENCOUNTER 2017-08-19 23:37 | Emergency (ER) | payer MEDICAID ==
[2017-08-19 23:48] VITALS: TEMP 97.5
[2017-08-19] MEDS ORDERED: Albuterol-Ipratrop 3 mg / 0.5 (3 ml) UD IH STA (23:55)
[2017-08-20] MEDS ORDERED: Albuterol-Ipratrop 3 mg / 0.5 (3 ml) UD IH STA (00:21)
--- NOTE | 2017-08-20 00:48 | ED PDOC ---
Arrival/HPI - General Chief Complaint: Shortness Of Breath Time Seen by Provider: 08/19/17 23:47 Historian: Patient - History of Present Illness Narrative History of Present Illness (Text): 08/20/17 00:23 46 year old female, with past medical history of Hepatitis C and asthma, and past social history of alcohol and heroin abuse, presents to the Emergency department complaining of shortness of breath associated with wheezing since today. Patient informs worsening symptoms prompting her to the Emergency department tonight. Patient informs running out of her medications. Patient denies any fever, chills, nausea, vomiting, diarrhea, abdominal pain, chest pain , or any other complaints. Time/Duration: 24 hours Symptom Onset: Gradual Symptom Course: Unchanged Activities at Onset: Light Context: Home Past Medical History - Provider Review Nursing Documentation Reviewed: Yes - Infectious Disease Hx of Infectious Diseases: None - Tetanus Immunization Tetanus Immunization: Unknown - Cardiac Hx Angina: No Hx Pacemaker: No - Pulmonary Hx Respiratory Disorders: Yes (CURRENTLY SMOKES CIGARETTES 10 CIG A DAY) Hx Asthma: Yes Hx Bronchitis: Yes Hx Chronic Obstructive Pulmonary Disease (COPD): Yes - Neurological Hx Neurological Disorder: Yes (CLOGGED EARS) HX Cerebrovascular Accident: No - HEENT Hx HEENT Disorder: No - Renal Hx Renal Disorder: No - Endocrine/Metabolic Hx Endocrine Disorders: Yes Hx Hypothyroidism: Yes - Hematological/Oncological Hx Blood Disorders: No Hx Cancer: No - Integumentary Hx Dermatological Disorder: Yes - Musculoskeletal/Rheumatological Hx Falls: No - Gastrointestinal Hx Gastrointestinal Disorders: Yes Hx Pancreatitis: (pt denies pancreatitis) Other/Comment: Umbilical hernia /cirrhosis/ distended abd - Genitourinary/Gynecological Hx Genitourinary Disorders: No Hx Sexually Transmitted Diseases: (pt denies trichomonas) - Psychiatric Hx Psychophysiologic Disorder: Yes Hx Anxiety: Yes Hx Depression: Yes Hx Substance Use: Yes (daily) Other/Comment: alcohol drinks 4 or 5 24 oz cans of 4-frances a day, 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 - Surgical History Hx Appendectomy: Yes Hx Mastectomy: No - Anesthesia Hx Anesthesia: Yes Hx Anesthesia Reactions: No Hx Malignant Hyperthermia: No - Suicidal Assessment Feels Threatened In Home Enviroment: No Family/Social History - Physician Review Nursing Documentation Reviewed: Yes Family/Social History: No Known Family HX Smoking Status: Light Smoker < 10 Cigarettes Daily Hx Alcohol Use: Yes Frequency of alcohol use: Daily Hx Substance Use: Yes (daily) Substance used: heroin Hx Substance Use Treatment: Yes Allergies/Home Meds Allergies/Adverse Reactions: Allergies No Known Allergies Allergy (Verified 05/18/17 01:26) Home Medications: Home Meds Medication Instructions Recorded Confirmed No Known Home Med 08/20/17 08/20/17 Review of Systems - Physician Review All systems were reviewed & negative as marked: Yes - Review of Systems Constitutional: Normal. absent: Fevers Respiratory: SOB, Wheezing. absent: Cough Cardiovascular: absent: Chest Pain Gastrointestinal: absent: Abdominal Pain, Diarrhea, Nausea, Vomiting Physical Exam Vital Signs Reviewed: Yes Vital Signs Temp Pulse Resp BP Pulse Ox 08/20/17 02:15 98 H 18 105/67 98 08/19/17 23:45 97.5 F L 101 H 25 H 99/53 L 100 Temperature: Afebrile Blood Pressure: Hypotensive Pulse: Tachycardic Respiratory Rate: Tachypneic Appearance: Positive for: Well-Appearing, Non-Toxic, Comfortable Pain Distress: None Mental Status: Positive for: Alert and Oriented X 3 - Systems Exam Head: Present: Atraumatic, Normocephalic Pupils: Present: PERRL Extroacular Muscles: Present: EOMI Conjunctiva: Present: Normal Neck: Present: Normal Range of Motion Respiratory/Chest: Present: Good Air Exchange, Wheezes (expiratory wheezing bilaterally). No: Respiratory Distress, Accessory Muscle Use Cardiovascular: Present: Regular Rate and Rhythm, Normal S1, S2. No: Murmurs Abdomen: No: Tenderness, Distention, Peritoneal Signs Upper Extremity: Present: Normal Inspection. No: Cyanosis, Edema Lower Extremity: Present: Normal Inspection. No: Edema Neurological: Present: GCS=15, CN II-XII Intact, Speech Normal Skin: Present: Warm, Dry, Normal Color. No: Rashes Psychiatric: Present: Alert, Oriented x 3 Medical Decision Making ED Course and Treatment: 08/20/17 00:23 Impression: 46 year old female presents to the Emergency department for shortness of breath associated with wheezing. Differential Diagnosis included but are not limited to: asthma exacerbation Plan: -- EKG -- Labs -- EKG -- Albuterol -- Solumedrol -- Reassess and disposition Progress Notes: 08/20/17 02:23 EKG: Ordered, reviewed, and independently interpreted the EKG. Rate : 98 BPM Rhythm : NSR Interpretation : No ST-segment elevations or depressions, no T-wave inversions, normal intervals. 08/20/17 02:23 Discussed case with medical concierge, who is aware and agrees to accept patient to the hospitalist's service. - Lab Interpretations Lab Results: 08/20/17 01:08 08/20/17 01:08 Lab Results 08/20/17 01:08: WBC 9.0 D, RBC 4.16, Hgb 12.1, Hct 37.7, MCV 90.6, MCH 29.1, MCHC 32.1, RDW 16.4 H, Plt Count 340, MPV 9.9 08/20/17 01:08: Sodium 143, Potassium 3.5 L, Chloride 104, Carbon Dioxide 25, Anion Gap 17, BUN 7, Creatinine 0.5 L, Est GFR ( Amer) > 60, Est GFR (Non -Af Amer) > 60, Random Glucose 109, Calcium 8.4, Total Bilirubin 0.5, AST 66 H D , ALT 58 H, Alkaline Phosphatase 93, Total Protein 6.2, Albumin 3.3, Globulin 2.9, Albumin/Globulin Ratio 1.1 - RAD Interpretation Radiology Orders: 08/20/17 00:23 CHEST PORTABLE [RAD] Stat - Medication Orders Current Medication Orders: Discontinued Medications Albuterol/Ipratropium (Duoneb 3 Mg/0.5 Mg (3 Ml) Ud) 3 ml IH ONCE STA Stop: 08/19/17 23:56 Last Admin: 08/20/17 00:00 Dose: 3 ml Albuterol/Ipratropium (Duoneb 3 Mg/0.5 Mg (3 Ml) Ud) 3 ml IH ONCE STA Stop: 08/20/17 00:22 Last Admin: 08/20/17 00:32 Dose: 3 ml Methylprednisolone (Solu-Medrol) 125 mg IVP ONCE ONE Stop: 08/20/17 00:24 Last Admin: 08/20/17 01:08 Dose: 125 mg IVP Administration Document 08/20/17 01:08 JULES (Rec: 08/20/17 01:09 CNR [id number]) Charges for Administration # of IVP Administrations 1 - Scribe Statement The provider has reviewed the documentation as recorded by the Scribe Tasfia Latonia. All medical record entries made by the Rosettaibclive were at my direction and personally dictated by me. I have reviewed the chart and agree that the record accurately reflects my personal performance of the history, physical exam, medical decision making, and the department course for this patient. I have also personally directed, reviewed, and agree with the discharge instructions and disposition. Disposition/Present on Arrival - Present on Arrival Any Indicators Present on Arrival: No History of DVT/PE: No History of Uncontrolled Diabetes: No Urinary Catheter: No History of Decub. Ulcer: No History Surgical Site Infection Following: None - Disposition Have Diagnosis and Disposition been Completed?: Yes Diagnosis: Asthma exacerbation in COPD Disposition: HOSPITALIZED Disposition Time: 02:25 Patient Plan: Observation Condition: STABLE Referrals: Racheal Mtz, [Primary Care Provider] - Follow up with primary Forms: CareProjectSpeaker (Kyrgyz)
[2017-08-20 01:28] LABS: HEMOGLOBIN 12.1 g/dL (12.0-16.0); MEAN CELL VOLUME 90.6 fl (80.0-105.0); MEAN CORPUSCULAR HEMOGLOBIN 29.1 pg (25.0-35.0); MEAN CORPUSCULAR HGB CONC 32.1 g/dl (31.0-37.0); MEAN PLATELET VOLUME 9.9 fl (7.0-11.0); RBC 4.16 10^6/uL (3.5-6.1); RED CELL DISTRIBUTION WIDTH 16.4 % (11.5-14.5)
[2017-08-20 01:30] LABS: ALB/GLOB RATIO 1.1 (1.1-1.8); ALBUMIN 3.3 g/dL (3.0-4.8); ALT/SGPT 58 U/L (7-56); AST/SGOT 66 U/L (14-36); BLOOD UREA NITROGEN 7 mg/dL (7-21); CALCIUM 8.4 mg/dL (8.4-10.5); GFR AFRICAN-AMERICAN > 60; GFR NON-AFRICAN AMERICAN > 60
[2017-08-20 02:15] VITALS: BP 105/67; PULSE 98; RESP 18; O2SAT 98
[2017-08-20] MEDS ORDERED: Albuterol-Ipratrop 3 mg / 0.5 (3 ml) UD IH PRN (03:19)
[2017-08-20] MEDS ORDERED: Sodium Chloride 0.9% 1,000 ML IV SCH (03:30)
[2017-08-20] MEDS ORDERED: Albuterol-Ipratrop 3 mg / 0.5 (3 ml) UD IH SCH (03:30)
--- NOTE | 2017-08-20 05:25 | CP.PCM.HP ---
Addendum entered and electronically signed by Oliver Hargrove DO 05:30: Patient signed out AMA before she got up to the floors. Patient advised to establish care with a PMD, quit drinking, and quit heroin. Patient advised to return to the ED should her symptoms persist or worsen. Patient was advised on risks of leaving AMA, including alcohol withdrawal, worsening shortness of breath, and possible . Original Note: <Oliver Hargrove - Last Filed: 08/20/17 05:30> History of Present Illness - History of Present Illness History of Present Illness: Medicine H&P: Dr. Garces Chief complaint: Asthma Exacerbation HPI: 46 year old female with multiple visits to [facility] presented with shortness of breath of sudden onset. Patient recently admitted with similar complaints on . Patient denies recent illness or sick contacts. 12 point ROS obtained and negative, except as per HPI. PMD: none PMH: COPD, asthma, alcohol/heroin abuse, and hepatitis C with liver cirrhosis PSH: Appendectomy, tonsillectomy Family History: Father-DM2 Social History: Smokes 1/2 pk/day, drinks 5-6 cans of four frances daily, reports prior IVDU, currently snorts heroin 2-10 bags weekly; homeless Allergies: NKDA Home Medications: As per MAR Present on Admission - Present on Admission Any Indicators Present on Admission: No Past Patient History - Infectious Disease Hx of Infectious Diseases: None - Tetanus Immunizations Tetanus Immunization: Unknown - Past Medical History & Family History Past Medical History?: Yes - Past Social History Smoking Status: Light Smoker < 10 Cigarettes Daily - CARDIAC Hx Angina: No Hx Pacemaker: No - PULMONARY Hx Respiratory Disorders: Yes (CURRENTLY SMOKES CIGARETTES 10 CIG A DAY) Hx Asthma: Yes Hx Bronchitis: Yes Hx Chronic Obstructive Pulmonary Disease (COPD): Yes - NEUROLOGICAL Hx Neurological Disorder: Yes (CLOGGED EARS) HX Cerebrovascular Accident: No - HEENT Hx HEENT Problems: No - RENAL Hx Chronic Kidney Disease: No - ENDOCRINE/METABOLIC Hx Endocrine Disorders: Yes Hx Hypothyroidism: Yes - HEMATOLOGICAL/ONCOLOGICAL Hx Blood Disorders: No Hx Cancer: No - INTEGUMENTARY Hx Dermatological Problems: Yes - MUSCULOSKELETAL/RHEUMATOLOGICAL Hx Falls: No - GASTROINTESTINAL Hx Gastrointestinal Disorders: Yes Hx Pancreatitis: (pt denies pancreatitis) Other/Comment: Umbilical hernia /cirrhosis/ distended abd - GENITOURINARY/GYNECOLOGICAL Hx Genitourinary Disorders: No Hx Sexually Transmitted Disorders: (pt denies trichomonas) - PSYCHIATRIC Hx Psychophysiologic Disorder: Yes Hx Anxiety: Yes Hx Depression: Yes Hx Substance Use: Yes (daily) Other/Comment: alcohol drinks 4 or 5 24 oz cans of 4-frances a day, 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 - SURGICAL HISTORY Hx Appendectomy: Yes Hx Mastectomy: No - ANESTHESIA Hx Anesthesia: Yes Hx Anesthesia Reactions: No Hx Malignant Hyperthermia: No Meds Allergies/Adverse Reactions: Allergies Allergy/AdvReac Type Severity Reaction Status Date / Time No Known Allergies Allergy Verified 05/18/17 01:26 Physical Exam - Constitutional Appears: Non-toxic, Unkempt - Head Exam Head Exam: ATRAUMATIC, NORMAL INSPECTION, NORMOCEPHALIC - Eye Exam Eye Exam: EOMI, Normal appearance, PERRL Pupil Exam: NORMAL ACCOMODATION, PERRL - ENT Exam ENT Exam: Mucous Membranes Moist, Normal Exam - Neck Exam Neck exam: Positive for: Normal Inspection - Respiratory Exam Respiratory Exam: Wheezes, NORMAL BREATHING PATTERN. absent: Respiratory Distress - Cardiovascular Exam Cardiovascular Exam: REGULAR RHYTHM - GI/Abdominal Exam GI & Abdominal Exam: Normal Bowel Sounds, Soft. absent: Tenderness - Extremities Exam Extremities exam: Positive for: normal inspection - Back Exam Back exam: NORMAL INSPECTION - Neurological Exam Neurological exam: Alert, CN II-XII Intact, Normal Gait, Oriented x3, Reflexes Normal - Psychiatric Exam Psychiatric exam: Normal Affect, Normal Mood - Skin Skin Exam: Dry, Intact, Normal Color, Warm Results - Vital Signs Recent Vital Signs: Last Vital Signs Temp 97.5 F L 08/19/17 23:45 Pulse 98 H 08/20/17 02:15 Resp 18 08/20/17 02:15 BP 105/67 08/20/17 02:15 Pulse Ox 98 08/20/17 02:15 - Labs Result Diagrams: 08/20/17 01:08 08/20/17 01:08 Assessment & Plan - Assessment and Plan (Free Text) Assessment: 46 year old female with PMH COPD, asthma, alcohol/heroin abuse, Hepatitis C with cirrhosis, presents for wheezing. No white count, afebrile, only SIRS tachycardia. Chest XR shows no infiltrates. Hypokalemia on admission. Plan COPD Exacerbation: - Solu-mederol; Duonebs 3ml IH [id number] JACK and N2ANRCY PRN - Oxygen 2L PRN - Continue home singulair Hypokalemia - Replete as necessary, check magnesium Alcohol Abuse/Withdrawal: - Ativan 2 Q6H PRN, Banana Bag at 100mls/hr - CIWA assessment Q4H, Aspiration, Fall and Seizure precautions - Advised cessation History of Heroin abuse - Monitor for withdrawal - Advised cessation Transaminitis, likely 2/2 ETOH use vs Hep C - Avoid hepatotoxins GI Prophylaxis: Protonix DVT Prophylaxis: SCDs <Ingrid Garces - Last Filed: 08/20/17 05:46> Results - Vital Signs Recent Vital Signs: Last Vital Signs Temp 97.5 F L 08/19/17 23:45 Pulse 98 H 08/20/17 02:15 Resp 18 08/20/17 02:15 BP 105/67 08/20/17 02:15 Pulse Ox 98 08/20/17 02:15 - Labs Result Diagrams: 08/20/17 01:08 08/20/17 01:08 Attending/Attestation - Attestation I have personally seen and examined this patient.: No I have fully participated in the care of the patient.: Yes I have reviewed all pertinent clinical information: Yes Notes (Text): 08/20/17 05:45 Agree with history , physical examination, assessment and plan. Patient signed out AMA.
[2017-08-20] MEDS ORDERED: Pantoprazole 40 mg EC Tab PO SCH (06:00)
--- NOTE | 2017-08-20 06:04 | CP.PCM.DIS ---
<BeenaOliver - Last Filed: 08/20/17 06:06> Provider - Provider Date of Admission: 08/20/17 02:24 Attending physician: Junaid Rouse MD Primary care physician: Racheal Profile Required Time Spent in preparation of Discharge (in minutes): 30 Hospital Course - Lab Results Lab Results: Most Recent Lab Values WBC 9.0 10^3/ul (4.5-11.0) D 08/20/17 01:08 RBC 4.16 10^6/uL (3.5-6.1) 08/20/17 01:08 Hgb 12.1 g/dL (12.0-16.0) 08/20/17 01:08 Hct 37.7 % (36.0-48.0) 08/20/17 01:08 MCV 90.6 fl (80.0-105.0) 08/20/17 01:08 MCH 29.1 pg (25.0-35.0) 08/20/17 01:08 MCHC 32.1 g/dl (31.0-37.0) 08/20/17 01:08 RDW 16.4 % (11.5-14.5) H 08/20/17 01:08 Plt Count 340 10^3/uL (120.0-450.0) 08/20/17 01:08 MPV 9.9 fl (7.0-11.0) 08/20/17 01:08 Sodium 143 mmol/L (132-148) 08/20/17 01:08 Potassium 3.5 mmol/L (3.6-5.0) L 08/20/17 01:08 Chloride 104 mmol/L (98-107) 08/20/17 01:08 Carbon Dioxide 25 mmol/L (21-33) 08/20/17 01:08 Anion Gap 17 (10-20) 08/20/17 01:08 BUN 7 mg/dL (7-21) 08/20/17 01:08 Creatinine 0.5 mg/dl (0.7-1.2) L 08/20/17 01:08 Est GFR ( Amer) > 60 08/20/17 01:08 Est GFR (Non-Af Amer) > 60 08/20/17 01:08 Random Glucose 109 mg/dL (70-110) 08/20/17 01:08 Calcium 8.4 mg/dL (8.4-10.5) 08/20/17 01:08 Total Bilirubin 0.5 mg/dL (0.2-1.3) 08/20/17 01:08 AST 66 U/L (14-36) H D 08/20/17 01:08 ALT 58 U/L (7-56) H 08/20/17 01:08 Alkaline Phosphatase 93 U/L (38-126) 08/20/17 01:08 Total Protein 6.2 g/dL (5.8-8.3) 08/20/17 01:08 Albumin 3.3 g/dL (3.0-4.8) 08/20/17 01:08 Globulin 2.9 gm/dL 08/20/17 01:08 Albumin/Globulin Ratio 1.1 (1.1-1.8) 08/20/17 01:08 - Hospital Course Hospital Course: 46 year old female with multiple visits to [facility] presented with shortness of breath of sudden onset. Patient recently admitted with similar complaints on . Patient denies recent illness or sick contacts. 12 point ROS obtained and negative, except as per HPI. Patient signed out AMA before she got up to the floors. Patient advised to establish care with a PMD, quit drinking, and quit heroin. Patient advised to return to the ED should her symptoms persist or worsen. Patient was advised on risks of leaving AMA, including alcohol withdrawal, worsening shortness of breath, and possible . Discharge Exam - Head Exam Head Exam: ATRAUMATIC, NORMAL INSPECTION, NORMOCEPHALIC - Eye Exam Eye Exam: EOMI, Normal appearance, PERRL Pupil Exam: NORMAL ACCOMODATION, PERRL - Respiratory Exam Respiratory Exam: Wheezes, NORMAL BREATHING PATTERN - Cardiovascular Exam Cardiovascular Exam: REGULAR RHYTHM, RRR, +S1, +S2. absent: JVD, Rubs, Systolic Murmur - GI/Abdominal Exam GI & Abdominal Exam: Normal Bowel Sounds - Extremities Exam Extremities exam: full ROM - Back Exam Back exam: NORMAL INSPECTION. absent: CVA tenderness (L), CVA tenderness (R) - Neurological Exam Neurological exam: Alert, CN II-XII Intact, Normal Gait, Oriented x3, Reflexes Normal - Psychiatric Exam Psychiatric exam: Normal Affect, Normal Mood - Skin Skin Exam: Dry, Intact, Normal Color, Warm Discharge Plan - Follow Up Plan Condition: STABLE Disposition: AGAINST MEDICAL ADVICE Patient education suggested?: Yes Instructions: Peak Flow Meter, Asthma (DC), Asthma (GEN) Referrals: Racheal Mccarty Renorma, [Primary Care Provider] - <Derek Garcesana - Last Filed: 08/20/17 06:18> Provider - Provider Date of Admission: 08/20/17 02:24 Attending physician: Junaid Rouse MD Primary care physician: Racheal Mccarty Required Hospital Course - Lab Results Lab Results: Most Recent Lab Values WBC 9.0 10^3/ul (4.5-11.0) D 08/20/17 01:08 RBC 4.16 10^6/uL (3.5-6.1) 08/20/17 01:08 Hgb 12.1 g/dL (12.0-16.0) 08/20/17 01:08 Hct 37.7 % (36.0-48.0) 08/20/17 01:08 MCV 90.6 fl (80.0-105.0) 08/20/17 01:08 MCH 29.1 pg (25.0-35.0) 08/20/17 01:08 MCHC 32.1 g/dl (31.0-37.0) 08/20/17 01:08 RDW 16.4 % (11.5-14.5) H 08/20/17 01:08 Plt Count 340 10^3/uL (120.0-450.0) 08/20/17 01:08 MPV 9.9 fl (7.0-11.0) 08/20/17 01:08 Sodium 143 mmol/L (132-148) 08/20/17 01:08 Potassium 3.5 mmol/L (3.6-5.0) L 08/20/17 01:08 Chloride 104 mmol/L (98-107) 08/20/17 01:08 Carbon Dioxide 25 mmol/L (21-33) 08/20/17 01:08 Anion Gap 17 (10-20) 08/20/17 01:08 BUN 7 mg/dL (7-21) 08/20/17 01:08 Creatinine 0.5 mg/dl (0.7-1.2) L 08/20/17 01:08 Est GFR ( Amer) > 60 08/20/17 01:08 Est GFR (Non-Af Amer) > 60 08/20/17 01:08 Random Glucose 109 mg/dL (70-110) 08/20/17 01:08 Calcium 8.4 mg/dL (8.4-10.5) 08/20/17 01:08 Total Bilirubin 0.5 mg/dL (0.2-1.3) 08/20/17 01:08 AST 66 U/L (14-36) H D 08/20/17 01:08 ALT 58 U/L (7-56) H 08/20/17 01:08 Alkaline Phosphatase 93 U/L (38-126) 08/20/17 01:08 Total Protein 6.2 g/dL (5.8-8.3) 08/20/17 01:08 Albumin 3.3 g/dL (3.0-4.8) 08/20/17 01:08 Globulin 2.9 gm/dL 08/20/17 01:08 Albumin/Globulin Ratio 1.1 (1.1-1.8) 08/20/17 01:08 Attending/Attestation - Attestation I have personally seen and examined this patient.: No I have fully participated in the care of the patient.: Yes I have reviewed all pertinent clinical information, including history, physical exam and plan: Yes
--- NOTE | 2017-08-20 08:34 | RAD ---
HISTORY: sob COMPARISON: 07/31/2017 FINDINGS: LUNGS: No active pulmonary disease. PLEURA: No significant pleural effusion identified, no pneumothorax apparent. CARDIOVASCULAR: Normal. OSSEOUS STRUCTURES: No significant abnormalities. VISUALIZED UPPER ABDOMEN: Normal. OTHER FINDINGS: None. IMPRESSION: No active disease.
[2017-08-20] MEDS ORDERED: MethylPREDNISolone 40 mg Vial IVP SCH (10:00)
[2017-08-20] MEDS ORDERED: Enoxaparin 40 mg Syringe SC SCH (10:00)
--- NOTE | 2017-08-20 15:15 | CARD ---
APPROVED REPORT EKG Measurement Heart [id number] <Conclusion> Normal sinus rhythm Normal ECG
== END 2017-08-20 04:31 | disposition left against medical advice (07) ==
LOC: ED 23:37 → UNDOADMOB 08-20 02:24 → ERH 08-20 02:24
DX: J45.901 Unspecified asthma with (acute) exacerbation (principal); J44.9 Chronic obstructive pulmonary disease, unspecified; F17.210 Nicotine dependence, cigarettes, uncomplicated
CPT/HCPCS: 71045; 80053; 85027; 93005; 96374; 99285; J2930

== ENCOUNTER 2017-08-27 22:01 | Emergency (ER) | payer MEDICAID ==
[2017-08-27 22:14] VITALS: BMI 24.7
[2017-08-27] MEDS ORDERED: Magnesium Sulfate 1 gm in D5W 1 GM/100 ML BAG IVPB ONE (22:23)
[2017-08-27] MEDS ORDERED: Albuterol-Ipratrop 3 mg / 0.5 (3 ml) UD IH STA (22:23)
[2017-08-27 22:24] VITALS: TEMP 98.2
--- NOTE | 2017-08-27 22:28 | ED PDOC ---
Arrival/HPI - General Chief Complaint: Shortness Of Breath Time Seen by Provider: 08/27/17 22:17 Historian: Patient, Spouse - History of Present Illness Narrative History of Present Illness (Text): you were treated in the ED today for hx of asthma/COPD with flare-up due to the cold weather today and otherwise without any nausea/vomiting/headache/dizziness/ chest pain/abdomen pain/numbness/tingling/loss of limb function/pain with urination/travel/prior blood clots/cancer/hormonal treatment/thoughts to harm yourself or others or hallucinations. 08/27/17 22:24 08/27/17 22:24 Time/Duration: 24 hours Symptom Onset: Gradual Symptom Course: Unchanged Quality: Other (no pain) Activities at Onset: Rest Context: Sitting Past Medical History - Provider Review Nursing Documentation Reviewed: Yes - Travel History Have you recently traveled outside [place] w/in the past 3 mons?: No - Infectious Disease Hx of Infectious Diseases: None - Tetanus Immunization Tetanus Immunization: Unknown - Cardiac Hx Angina: No Hx Pacemaker: No - Pulmonary Hx Respiratory Disorders: Yes (CURRENTLY SMOKES CIGARETTES 10 CIG A DAY) Hx Asthma: Yes Hx Bronchitis: Yes Hx Chronic Obstructive Pulmonary Disease (COPD): Yes - Neurological Hx Neurological Disorder: Yes (CLOGGED EARS) HX Cerebrovascular Accident: No - HEENT Hx HEENT Disorder: No - Renal Hx Renal Disorder: No - Endocrine/Metabolic Hx Endocrine Disorders: Yes Hx Hypothyroidism: Yes - Hematological/Oncological Hx Blood Disorders: No Hx Cancer: No - Integumentary Hx Dermatological Disorder: Yes - Musculoskeletal/Rheumatological Hx Falls: No - Gastrointestinal Hx Gastrointestinal Disorders: Yes Hx Pancreatitis: (pt denies pancreatitis) Other/Comment: Umbilical hernia /cirrhosis/ distended abd - Genitourinary/Gynecological Hx Genitourinary Disorders: No Hx Sexually Transmitted Diseases: (pt denies trichomonas) - Psychiatric Hx Psychophysiologic Disorder: Yes Hx Anxiety: Yes Hx Depression: Yes Hx Substance Use: Yes (daily) Other/Comment: alcohol drinks 4 or 5 24 oz cans of 4-frances a day, 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 - Surgical History Hx Appendectomy: Yes Hx Mastectomy: No - Anesthesia Hx Anesthesia: Yes Hx Anesthesia Reactions: No Hx Malignant Hyperthermia: No - Suicidal Assessment Feels Threatened In Home Enviroment: No Family/Social History - Physician Review Nursing Documentation Reviewed: Yes Family/Social History: No Known Family HX Smoking Status: Light Smoker < 10 Cigarettes Daily Hx Alcohol Use: Yes Hx Substance Use: Yes (daily) Substance used: heroin Hx Substance Use Treatment: Yes Allergies/Home Meds Allergies/Adverse Reactions: Allergies No Known Allergies Allergy (Verified 08/27/17 22:17) Review of Systems - Physician Review All systems were reviewed & negative as marked: Yes - Review of Systems Constitutional: Normal Eyes: Normal ENT: Normal Respiratory: SOB Cardiovascular: Normal Gastrointestinal: Normal Genitourinary Female: Normal Musculoskeletal: Normal Skin: Normal Neurological: Normal Endocrine: Normal Hemo/Lymphatic: Normal Psychiatric: Normal Physical Exam Vital Signs Reviewed: Yes Vital Signs Temp Pulse Resp BP Pulse Ox 08/28/17 03:15 83 18 98/62 L 96 08/28/17 00:59 78 12 96/58 L 97 08/27/17 22:30 97 08/27/17 22:23 98.2 F 97 H 16 141/81 96 Temperature: Afebrile Blood Pressure: Hypertensive Pulse: Regular Respiratory Rate: Normal Appearance: Positive for: Well-Appearing, Non-Toxic, Comfortable Pain Distress: None Mental Status: Positive for: Alert and Oriented X 3 - Systems Exam Head: Present: Atraumatic, Normocephalic Pupils: Present: PERRL Extroacular Muscles: Present: EOMI Conjunctiva: Present: Normal Ears: Present: Normal Mouth: Present: Moist Mucous Membranes Pharnyx: Present: Normal Nose (External): Present: Atraumatic Nose (Internal): Present: Normal Inspection Neck: Present: Normal Range of Motion Respiratory/Chest: Present: Clear to Auscultation, Good Air Exchange Cardiovascular: Present: Regular Rate and Rhythm Abdomen: No: Tenderness, Distention, Normal Bowel Sounds, Peritoneal Signs, Rebound, Guarding, McBurney's Point Tender, Rovsing's Sign Present, Hernias, Feeding Tubes, Ostomy Tubes, Mass/Organomegaly, Scars, Other Upper Extremity: Present: Normal Inspection Lower Extremity: Present: Normal Inspection Neurological: Present: GCS=15, CN II-XII Intact, Speech Normal, Motor Func Grossly Intact Skin: Present: Warm Psychiatric: Present: Alert, Oriented x 3, Normal Insight, Normal Concentration Medical Decision Making ED Course and Treatment: 08/27/17 22:29 you were treated in the ED today for hx of asthma/COPD with flare-up due to the cold weather today and otherwise without any nausea/vomiting/headache/dizziness/ chest pain/abdomen pain/numbness/tingling/loss of limb function/pain with urination/travel/prior blood clots/cancer/hormonal treatment/thoughts to harm yourself or others or hallucinations. You were otherwise breathing easily, talking slowly initially to your , good strength/sensation, walking easily, clear lungs, no abdomen tenderness, no fever temp 98.2, stable heart rate 97, stable breathing rate 16, excellent oxygen level 96% room air, elevated blood pressure 141/81 which we recommend repeat in 2-3 days primary care office to determine further treatment, you have blood tests no infection count 9.8, stable blood level hemoglobin 14/platelets 405, stable chemistry, liver AST/ALT elevated 83/58, Liver Alklaline Phosphatase elevated 127, heart blood test negative less than 0.01, heart failure test negative 50, urine test no acute sign of infection, urine test negative, lactic acid 2.5 and repeat 2.1 without acute sign of infection but noted mild dehydration, radiology chest xray no acute, ECG normal sinus rhythm, solumedrol, duoneb, saline, librium as you stated you drink daily but haven't drank in 1 day but you have no tremors, observation done in the ED with improvement, had a long conversation about staying further in the hospital but you wanted to go home, counselled to monitor symptoms and thus you wanted to go home with your . 1. Recommend prednisone as directed for breathing relief. 2. Recommend albuterol as directed for breathing relief. 3. Recommend follow-up primary care 2-3 days to review symptoms, referral to pulmonary and cardiology clinic to review your symptoms, referral to gastroenterology clinic for mildly elevated liver tests AST/ALT to ensure further care. 4. If any worsening pain, fever, chills, nausea, vomiting, difficulty breathing, numbness, loss of limb function , pain with urination or any medical condition then return to the ED. 08/28/17 01:00 08/28/17 01:56 08/28/17 06:07 Reassessment Condition: Re-examined, Improved - Lab Interpretations Lab Results: 08/27/17 23:10 08/27/17 23:10 Lab Results 08/28/17 03:15: pO2 41, VBG pH 7.38, VBG pCO2 53.0, VBG HCO3 31.4 H, VBG Total CO2 33.0 H, VBG O2 Sat (Calc) 78.6 H, VBG Base Excess 4.9 H, VBG Potassium 4.3, Glucose 146 H, Lactate 2.1, FiO2 21.0, Sodium 138.0, Chloride 103.0, Venous Blood Potassium 4.3 08/28/17 00:50: Urine Color Yellow, Urine Appearance Clear, Urine pH 6.0, Ur Specific [place] 1.010, Urine Protein Negative, Urine Glucose (UA) Negative, Urine Ketones Negative, Urine Blood Negative, Urine Nitrate Negative, Urine Bilirubin Negative, Urine Urobilinogen 0.2, Ur Leukocyte Esterase Negative 08/27/17 23:49: pO2 142 H, VBG pH 7.32, VBG pCO2 58.0, VBG HCO3 29.9 H, VBG Total CO2 31.7 H, VBG O2 Sat (Calc) 99.8 H, VBG Base Excess 2.4 H, VBG Potassium 3.3 L, Glucose 95, Lactate 2.5 H, FiO2 21.0, Sodium 138.0, Chloride 103.0, Venous Blood Potassium 3.3 L 08/27/17 23:10: PT 10.7, INR 0.94, APTT 31.3 08/27/17 23:10: Sodium 144, Potassium 3.8, Chloride 104, Carbon Dioxide 27, Anion Gap 17, BUN 3 L, Creatinine 0.5 L, Est GFR ( Amer) > 60, Est GFR ( Non-Af Amer) > 60, Random Glucose 101, Calcium 8.5, Magnesium 1.9, Total Bilirubin 0.5, AST 83 H D, ALT 58 H, Alkaline Phosphatase 127 H D, Lactate Dehydrogenase 630, Total Creatine Kinase 51, Troponin I < 0.01, NT-Pro-B Natriuret Pep 50.8, Total Protein 7.1, Albumin 3.9, Globulin 3.3, Albumin/ Globulin Ratio 1.2 08/27/17 23:10: WBC 9.8, RBC 4.93, Hgb 14.6 D, Hct 44.0, MCV 89.2, MCH 29.6, MCHC 33.2, RDW 16.4 H, Plt Count 405, MPV 10.0, Gran % 48.2 L, Lymph % (Auto) 39.1 H, [place] % (Auto) 9.4 H, Eos % (Auto) 2.9, Baso % (Auto) 0.4, Gran # 4.73, Lymph # (Auto) 3.8 H, [place] # (Auto) 0.9 H, Eos # (Auto) 0.3, Baso # (Auto) 0.04 I have reviewed the lab results: Yes - RAD Interpretation Radiology Orders: 08/27/17 22:22 CHEST PORTABLE [RAD] Stat Director [employer]: ED Physician (cxr no acute and similar to prior 08/20/17) - EKG Interpretation Interpreted by ED Physician: Yes (NSR, flipped t waves avr, avl, v1, v2, v3) Type: 12 lead EKG - Medication Orders Current Medication Orders: Discontinued Medications Albuterol/Ipratropium (Duoneb 3 Mg/0.5 Mg (3 Ml) Ud) 3 ml IH STAT STA Stop: 08/27/17 22:24 Last Admin: 08/27/17 22:24 Dose: 3 ml Albuterol/Ipratropium (Duoneb 3 Mg/0.5 Mg (3 Ml) Ud) 3 ml IH STAT STA Stop: 08/28/17 02:30 Last Admin: 08/28/17 02:46 Dose: 3 ml Chlordiazepoxide (Librium) 50 mg PO STAT STA PRN Reason: Protocol Stop: 08/28/17 02:30 Last Admin: 08/28/17 02:44 Dose: 50 mg Magnesium Sulfate/Dextrose (Magnesium Sulfate 1 Gm/100 Ml D5w) 1 gm in 100 mls @ 100 mls/hr IVPB ONCE ONE Stop: 08/27/17 23:22 Last Admin: 08/27/17 22:45 Dose: 100 mls/hr eMAR Start Stop Document 08/27/17 22:45 ARIEL (Rec: 08/27/17 23:28 RG [facility] [id number]) Intravenous Solution Start Date 08/27/17 Start Time 22:45 Sodium Chloride (Sodium Chloride 0.9%) 1,000 mls @ 999 mls/hr IV .Q1H1M STA Stop: 08/28/17 01:35 Last Admin: 08/28/17 00:45 Dose: 999 mls/hr eMAR Start Stop Document 08/28/17 00:45 (Rec: 08/28/17 01:02 [facility]-[id number]) Intravenous Solution Start Date 08/28/17 Start Time 00:45 Methylprednisolone (Solu-Medrol) 125 mg IVP STAT STA Stop: 08/27/17 22:24 Last Admin: 08/27/17 22:30 Dose: 125 mg IVP Administration Document 08/27/17 22:30 (Rec: 08/27/17 23:20 [facility]-[id number]) Charges for Administration # of IVP Administrations 1 Disposition/Present on Arrival - Present on Arrival Any Indicators Present on Arrival: No History of DVT/PE: No History of Uncontrolled Diabetes: No Urinary Catheter: No History of Decub. Ulcer: No History Surgical Site Infection Following: None - Disposition Have Diagnosis and Disposition been Completed?: Yes Diagnosis: COPD exacerbation Disposition: HOME/ ROUTINE Disposition Time: 06:11 Patient Plan: Discharge Condition: IMPROVED Discharge Instructions (ExitCare): COPD Including Emphysema (DC) Additional Instructions: you were treated in the ED today for hx of asthma/COPD with flare-up due to the cold weather today and otherwise without any nausea/vomiting/headache/dizziness/ chest pain/abdomen pain/numbness/tingling/loss of limb function/pain with urination/travel/prior blood clots/cancer/hormonal treatment/thoughts to harm yourself or others or hallucinations. You were otherwise breathing easily, talking slowly initially to your , good strength/sensation, walking easily, clear lungs, no abdomen tenderness, no fever temp 98.2, stable heart rate 97, stable breathing rate 16, excellent oxygen level 96% room air, elevated blood pressure 141/81 which we recommend repeat in 2-3 days primary care office to determine further treatment, you have blood tests no infection count 9.8, stable blood level hemoglobin 14/platelets 405, stable chemistry, liver AST/ALT elevated 83/58, Liver Alklaline Phosphatase elevated 127, heart blood test negative less than 0.01, heart failure test negative 50, urine test no acute sign of infection, urine test negative, lactic acid 2.5 and repeat 2.1 without acute sign of infection but noted mild dehydration, radiology chest xray no acute, ECG normal sinus rhythm, solumedrol, duoneb, saline, librium as you stated you drink daily but haven't drank in 1 day but you have no tremors, observation done in the ED with improvement, had a long conversation about staying further in the hospital but you wanted to go home, counselled to monitor symptoms and thus you wanted to go home with your . 1. Recommend prednisone as directed for breathing relief. 2. Recommend albuterol as directed for breathing relief. 3. Recommend follow-up primary care 2-3 days to review symptoms, referral to pulmonary and cardiology clinic to review your symptoms, referral to gastroenterology clinic for mildly elevated liver tests AST/ALT to ensure further care. 4. If any worsening pain, fever, chills, nausea, vomiting, difficulty breathing, numbness, loss of limb function , pain with urination or any medical condition then return to the ED. Prescriptions: Albuterol HFA [Ventolin HFA 90 mcg/actuation (8 g)] 2 puff IH [id number] PRN 5 Days #1 ea PRN Reason: wheezing/copd relief Prednisone [Deltasone] 20 mg PO DAILY 5 Days #5 tablet Referrals: PCP,NO [Primary Care Provider] - Follow up with primary Forms: [employer] (Indonesian)
[2017-08-27 23:42] LABS: BASO # 0.04 K/mm3 (0.0-2.0); BASO % 0.4 % (0.0-3.0); EOS # 0.3 (0.0-0.7); EOS % 2.9 % (1.5-5.0); GRAN # 4.73 (1.4-6.5); GRAN % 48.2 % (50.0-68.0); LYMPH # 3.8 (1.2-3.4); LYMPH % 39.1 % (22.0-35.0); MEAN CELL VOLUME 89.2 fl (80.0-105.0); MEAN CORPUSCULAR HEMOGLOBIN 29.6 pg (25.0-35.0); MEAN CORPUSCULAR HGB CONC 33.2 g/dl (31.0-37.0); MONO # 0.9 (0.1-0.6); MONO % 9.4 % (1.0-6.0); RBC 4.93 10^6/uL (3.5-6.1); RED CELL DISTRIBUTION WIDTH 16.4 % (11.5-14.5); WHITE BLOOD COUNT 9.8 10^3/ul (4.5-11.0)
[2017-08-27 23:45] LABS: HEMOGLOBIN 14.6 g/dL (12.0-16.0)
[2017-08-27 23:46] LABS: INR 0.94 (0.93-1.08); PARTIAL THROMBOPLASTIN TIME 31.3 Seconds (25.1-36.5); PROTHROMBIN TIME 10.7 SECONDS (9.4-12.5)
[2017-08-27 23:53] LABS: B-TYPE NATRIURETIC PEPTIDE 50.8 pg/mL (0-450); TROPONIN I < 0.01 ng/mL
[2017-08-28 00:01] LABS: ALB/GLOB RATIO 1.2 (1.1-1.8); ALBUMIN 3.9 g/dL (3.0-4.8); ALT/SGPT 58 U/L (7-56); AST/SGOT 83 U/L (14-36); BLOOD UREA NITROGEN 3 mg/dL (7-21); CALCIUM 8.5 mg/dL (8.4-10.5); GFR AFRICAN-AMERICAN > 60; GFR NON-AFRICAN AMERICAN > 60
[2017-08-28 00:14] LABS: VENOUS BLOOD GAS BASE EXCESS 2.4 mmol/L (0.0-2.0); VENOUS BLOOD GAS PO2 142 mm/Hg (30-55); VENOUS BLOOD PH 7.32 (7.32-7.43)
[2017-08-28] MEDS ORDERED: Sodium Chloride 0.9% 1,000 ML IV STA (00:35)
[2017-08-28 01:17] LABS: URINE BILIRUBIN NEGATIVE (NEGATIVE); URINE BLOOD NEGATIVE (NEGATIVE); URINE GLUCOSE (UA) NEGATIVE (NEGATIVE); URINE LEUKOCYTE ESTERASE NEGATIVE Leu/uL (NEGATIVE); URINE PROTEIN NEGATIVE mg/dL (<30 mg/dL); URINE UROBILINOGEN 0.2 E.U./dL (<1 E.U./dL)
[2017-08-28 01:23] LABS: URINE APPEARANCE CLEAR (CLEAR); URINE COLOR YELLOW (YELLOW)
[2017-08-28] MEDS ORDERED: Albuterol-Ipratrop 3 mg / 0.5 (3 ml) UD IH STA (02:29)
[2017-08-28 03:27] VITALS: O2SAT 96
[2017-08-28 03:28] LABS: VENOUS BLOOD GAS BASE EXCESS 4.9 mmol/L (0.0-2.0); VENOUS BLOOD GAS PO2 41 mm/Hg (30-55); VENOUS BLOOD PH 7.38 (7.32-7.43)
[2017-08-28 06:38] VITALS: BP 113/65; PULSE 71; RESP 14
--- NOTE | 2017-08-28 08:50 | CARD ---
APPROVED REPORT EKG Measurement Heart [id number] <Conclusion> Normal sinus rhythm Incomplete right bundle branch block LVH by voltage No change except increased voltage V 4 -6 c/w ECG 08/20/17
--- NOTE | 2017-08-28 09:14 | RAD ---
HISTORY: 47yoF, with COPD, flare-up COMPARISON: 08/20/2017 FINDINGS: LUNGS: No active pulmonary disease. PLEURA: No significant pleural effusion identified, no pneumothorax apparent. CARDIOVASCULAR: Normal. OSSEOUS STRUCTURES: No significant abnormalities. VISUALIZED UPPER ABDOMEN: Normal. OTHER FINDINGS: None. IMPRESSION: No active disease.
== END 2017-08-28 06:38 | disposition home or self-care (01) ==
LOC: ED 22:01
DX: J44.1 Chronic obstructive pulmonary disease with (acute) exacerbation (principal); E03.9 Hypothyroidism, unspecified; F17.210 Nicotine dependence, cigarettes, uncomplicated
CPT/HCPCS: 71045; 80053; 81003; 82550; 82803; 83615; 83735; 83880; 84484; 85025; 85610; 85730; 87040; 87086; 93005; 96374; 99285; J2930; J3475; J7040

== ENCOUNTER 2017-09-02 00:05 | Observation (INO) | payer MEDICAID ==
[2017-09-02 00:05] VITALS: BMI 24.7
[2017-09-02] MEDS ORDERED: Magnesium Sulfate 2 GM in Sodium Chloride 0.9% 100 ML IVPB ONE (00:51)
[2017-09-02] MEDS: Albuterol-Ipratrop 3 mg / 0.5 (3 ml) UD IH SCH ×3 (01:00→01:30)
[2017-09-02 02:25] LABS: BASO # 0.05 K/mm3 (0.0-2.0); BASO % 0.4 % (0.0-3.0); EOS # 0.2 (0.0-0.7); EOS % 1.3 % (1.5-5.0); GRAN # 6.23 (1.4-6.5); GRAN % 52.5 % (50.0-68.0); HEMOGLOBIN 12.1 g/dL (12.0-16.0); LYMPH # 4.5 (1.2-3.4); LYMPH % 37.8 % (22.0-35.0); MEAN CELL VOLUME 90.3 fl (80.0-105.0); MEAN CORPUSCULAR HEMOGLOBIN 29.3 pg (25.0-35.0); MEAN CORPUSCULAR HGB CONC 32.4 g/dl (31.0-37.0); MEAN PLATELET VOLUME 10.1 fl (7.0-11.0); RBC 4.13 10^6/uL (3.5-6.1); RED CELL DISTRIBUTION WIDTH 17.1 % (11.5-14.5); WHITE BLOOD COUNT 11.9 10^3/ul (4.5-11.0)
[2017-09-02 02:26] LABS: ARTERIAL BLOOD GAS HEMOGLOBIN 10.7 g/dL (11.7-17.4); ARTERIAL BLOOD GAS O2 CAPACITY 13.9 mL/dl (16-24); ARTERIAL BLOOD GAS O2 CONTENT 13.4 ML/dl (15-23); ARTERIAL BLOOD GAS O2 SAT 96.4 % (95-98); ARTERIAL BLOOD GAS PCO2 45 mm/Hg (35-45); ARTERIAL BLOOD GAS PH 7.37 (7.35-7.45); ARTERIAL BLOOD GAS TCO2 27.4 mmol.L (22-28)
[2017-09-02 02:32] LABS: ALB/GLOB RATIO 1.1 (1.1-1.8); ALBUMIN 3.2 g/dL (3.0-4.8); ALT/SGPT 56 U/L (7-56); AST/SGOT 54 U/L (14-36); BLOOD UREA NITROGEN 10 mg/dL (7-21); CALCIUM 8.3 mg/dL (8.4-10.5); GFR AFRICAN-AMERICAN > 60; GFR NON-AFRICAN AMERICAN > 60
[2017-09-02 02:40] LABS: TROPONIN I < 0.01 ng/mL
[2017-09-02] MEDS ORDERED: Albuterol-Ipratrop 3 mg / 0.5 (3 ml) UD IH PRN (04:01)
[2017-09-02] MEDS ORDERED: Potassium Chloride 20 mEq ER Tab PO STA (04:06)
--- NOTE | 2017-09-02 04:08 | CP.PCM.HP ---
History of Present Illness - History of Present Illness History of Present Illness: CC: Rory HPI: 46 yo female with past medical history of COPD, asthma, substance abuse, hepatitis C with cirrhosis who presnts to ED with shortness of breath for the past few days. Patient states 48 hours prior to presentation she noted to have shortness of breath that had progressively worsened. She describes chest pressure and tightness as well. She denies sharp stabbing pain, radiation of pain, nausea, vomiting, sweating, numbness tingling in upper extremity or neck. Patient states she has these types of shortness of breath episodes frequently. She reports she continues to smoke and has poor compliance with her medical therapy. Patient denies productive cough, fever, chills, night sweats, headache , vision changes, nasal drainage, pleurtic chest pain, abdominal pain, diarrhea , constipation, back pain, weakness, numbness, focal deficits, urinary symptoms , or gait difficulties. 12 point ROS is benign other than mentioned in HPI. PMH: COPD, asthma, alcohol/heroin abuse, and hepatitis C with liver cirrhosis PSH: Appendectomy, tonsillectomy FMH: Father-DM2 SOCHx: Tobacco: 0.5 PPD >30 years, ETOH: Daily use, 5 beers daily, ID: reports prior IVDU, currently snorts heroin 2-10 bags weekly; homeless Allergies: NKDA Medications: As per EFRAIN PMD: None Present on Admission - Present on Admission Any Indicators Present on Admission: No Review of Systems - Review of Systems All systems: reviewed and no additional remarkable complaints except (as mentioned in HPI) Past Patient History - Infectious Disease Hx of Infectious Diseases: None - Tetanus Immunizations Tetanus Immunization: Unknown - Past Medical History & Family History Past Medical History?: Yes - Past Social History Smoking Status: Light Smoker < 10 Cigarettes Daily - CARDIAC Hx Angina: No Hx Pacemaker: No - PULMONARY Hx Respiratory Disorders: Yes (CURRENTLY SMOKES CIGARETTES 10 CIG A DAY) Hx Asthma: Yes Hx Bronchitis: Yes Hx Chronic Obstructive Pulmonary Disease (COPD): Yes - NEUROLOGICAL Hx Neurological Disorder: Yes (CLOGGED EARS) HX Cerebrovascular Accident: No - HEENT Hx HEENT Problems: No - RENAL Hx Chronic Kidney Disease: No - ENDOCRINE/METABOLIC Hx Endocrine Disorders: Yes Hx Hypothyroidism: Yes - HEMATOLOGICAL/ONCOLOGICAL Hx Blood Disorders: No Hx Cancer: No - INTEGUMENTARY Hx Dermatological Problems: Yes - MUSCULOSKELETAL/RHEUMATOLOGICAL Hx Falls: No - GASTROINTESTINAL Hx Gastrointestinal Disorders: Yes Hx Pancreatitis: (pt denies pancreatitis) Other/Comment: Umbilical hernia /cirrhosis/ distended abd - GENITOURINARY/GYNECOLOGICAL Hx Genitourinary Disorders: No Hx Sexually Transmitted Disorders: (pt denies trichomonas) - PSYCHIATRIC Hx Psychophysiologic Disorder: Yes Hx Anxiety: Yes Hx Depression: Yes Hx Substance Use: Yes (daily) Other/Comment: alcohol drinks 4 or 5 24 oz cans of 4-frances a day, 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 - SURGICAL HISTORY Hx Appendectomy: Yes Hx Mastectomy: No - ANESTHESIA Hx Anesthesia: Yes Hx Anesthesia Reactions: No Hx Malignant Hyperthermia: No Meds Allergies/Adverse Reactions: Allergies Allergy/AdvReac Type Severity Reaction Status Date / Time No Known Allergies Allergy Verified 08/27/17 22:17 Physical Exam - Constitutional Appears: Non-toxic, No Acute Distress, Older Than Stated Age, Chronically Ill - Head Exam Head Exam: ATRAUMATIC, NORMOCEPHALIC - Eye Exam Eye Exam: EOMI, PERRL Pupil Exam: NORMAL ACCOMODATION - Neck Exam Neck exam: Positive for: Full Rom - Respiratory Exam Respiratory Exam: Decreased Breath Sounds, Wheezes (expiratory b/l), NORMAL BREATHING PATTERN. absent: Respiratory Distress, Stridor Additional comments: crackles right sided>Left sided - Cardiovascular Exam Cardiovascular Exam: REGULAR RHYTHM, +S1, +S2 - GI/Abdominal Exam GI & Abdominal Exam: Distended, Normal Bowel Sounds, Organomegaly, Soft, Tenderness (right upper quadrant with deep palpation). absent: Firm, Guarding, Hernia, Rigid Additional comments: obesity - Rectal Exam Rectal Exam: Deferred - Extremities Exam Extremities exam: Positive for: normal capillary refill, pedal pulses present. Negative for: calf tenderness, pedal edema, tenderness - Back Exam Back exam: absent: CVA tenderness (L), CVA tenderness (R), paraspinal tenderness , vertebral tenderness - Neurological Exam Neurological exam: Alert, Oriented x3 Additional comments: motor and sensory grossly intact, able to move all four extremities past midline , follows simple commands - Psychiatric Exam Psychiatric exam: Normal Affect, Normal Mood - Skin Skin Exam: Dry Additional comments: bruising and echymotic changes noted on upper extremity Results - Vital Signs Recent Vital Signs: Last Vital Signs Temp Pulse 89 09/02/17 00:05 Resp 20 09/02/17 00:05 BP 103/69 09/02/17 00:05 Pulse Ox 100 09/02/17 00:05 - Labs Result Diagrams: 09/02/17 02:00 09/02/17 02:00 Labs: Laboratory Results - last 24 hr 09/02/17 09/02/17 09/02/17 02:00 02:00 02:00 WBC 11.9 H D RBC 4.13 Hgb 12.1 D Hct 37.3 MCV 90.3 MCH 29.3 MCHC 32.4 RDW 17.1 H Plt Count 295 MPV 10.1 Gran % 52.5 Lymph % (Auto) 37.8 H [place] % (Auto) 8.0 H Eos % (Auto) 1.3 L Baso % (Auto) 0.4 Gran # 6.23 Lymph # (Auto) 4.5 H [place] # (Auto) 1.0 H Eos # (Auto) 0.2 Baso # (Auto) 0.05 pCO2 45 pO2 67.0 L HCO3 26.0 ABG pH 7.37 ABG Total CO2 27.4 ABG O2 Saturation 96.4 ABG O2 Content 13.4 L ABG Base Excess 0.4 ABG Hemoglobin 10.7 L ABG Carboxyhemoglobin 6.8 H POC ABG HHb (Measured) 3.3 ABG Methemoglobin 1.0 ABG O2 Capacity 13.9 L Hgb O2 Saturation 88.9 L FiO2 100.0 Sodium 143 Potassium 3.2 L Chloride 106 Carbon Dioxide 27 Anion Gap 13 BUN 10 Creatinine 0.6 L Est GFR ( Amer) > 60 Est GFR (Non-Af Amer) > 60 Random Glucose 110 Calcium 8.3 L Magnesium 2.3 H Total Bilirubin 0.1 L AST 54 H D ALT 56 Alkaline Phosphatase 84 Lactate Dehydrogenase 422 Total Creatine Kinase 39 Troponin I < 0.01 Total Protein 6.1 Albumin 3.2 Globulin 2.8 Albumin/Globulin Ratio 1.1 Assessment & Plan - Assessment and Plan (Free Text) Assessment: 46 yo female with past medical history of COPD, asthma, substance abuse, hepatitis C with cirrhosis who presnts to ED with shortness of breath and chest pressure. Patient noted to have leukocytosis, hypokalemia and ABG showing - . Patient to be admitted for asthma exacerbation and chest pressure. Plan: Asthma Exacerbation - duobneb Q2H prn, Q4H schedule - Solumedrol 60mg BID - CXR eval in AM - smoking cessation provided Chest discomfort - Initial troponin negative - EKG showing NSR rate 87bpm, No ST segment elevation/depression, unchanged from previous EKG - Trend troponin - Serial EKG Alcohol abuse - CIWA - Ativan 1 mg Q6H prn - Seizure, fall precaution - Alcohol cessation provided Transaminitis - Hx of Hep C with liver cirrhosis - Monitor, avoid hepatotoxic medications GI/DVT ppx: - Protonix - Lovenox Case and plan discussed with attending - Date & Time Date: 09/02/17 Time: 04:12
--- NOTE | 2017-09-02 04:09 | ED PDOC ---
Arrival/HPI - General Chief Complaint: Respiratory Distress Time Seen by Provider: 09/02/17 00:17 Historian: Patient - History of Present Illness Narrative History of Present Illness (Text): 09/02/17 04:06 47 year old female, with no significant past medical history, presents to the emergency department complaining of her normal asthma symptoms for a couple days. Patient denies any fever, chills, chest pain, nausea, vomiting, diarrhea, back pain, neck pain, headache, dizziness, or any other complaints. Time/Duration: < week Symptom Onset: Gradual Symptom Course: Unchanged Activities at Onset: Light Context: Home Past Medical History - Provider Review Nursing Documentation Reviewed: Yes - Infectious Disease Hx of Infectious Diseases: None - Tetanus Immunization Tetanus Immunization: Unknown - Cardiac Hx Angina: No Hx Pacemaker: No - Pulmonary Hx Respiratory Disorders: Yes (CURRENTLY SMOKES CIGARETTES 10 CIG A DAY) Hx Asthma: Yes Hx Bronchitis: Yes Hx Chronic Obstructive Pulmonary Disease (COPD): Yes - Neurological Hx Neurological Disorder: Yes (CLOGGED EARS) HX Cerebrovascular Accident: No - HEENT Hx HEENT Disorder: No - Renal Hx Renal Disorder: No - Endocrine/Metabolic Hx Endocrine Disorders: Yes Hx Hypothyroidism: Yes - Hematological/Oncological Hx Blood Disorders: No Hx Cancer: No - Integumentary Hx Dermatological Disorder: Yes - Musculoskeletal/Rheumatological Hx Falls: No - Gastrointestinal Hx Gastrointestinal Disorders: Yes Hx Pancreatitis: (pt denies pancreatitis) Other/Comment: Umbilical hernia /cirrhosis/ distended abd - Genitourinary/Gynecological Hx Genitourinary Disorders: No Hx Sexually Transmitted Diseases: (pt denies trichomonas) - Psychiatric Hx Psychophysiologic Disorder: Yes Hx Anxiety: Yes Hx Depression: Yes Hx Substance Use: Yes (daily) Other/Comment: alcohol drinks 4 or 5 24 oz cans of 4-frances a day, 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 - Surgical History Hx Appendectomy: Yes Hx Mastectomy: No - Anesthesia Hx Anesthesia: Yes Hx Anesthesia Reactions: No Hx Malignant Hyperthermia: No - Suicidal Assessment Feels Threatened In Home Enviroment: No Family/Social History - Physician Review Nursing Documentation Reviewed: Yes Family/Social History: Unknown Family HX Smoking Status: Light Smoker < 10 Cigarettes Daily Hx Alcohol Use: Yes Hx Substance Use: Yes (daily) Substance used: heroin Hx Substance Use Treatment: Yes Allergies/Home Meds Allergies/Adverse Reactions: Allergies No Known Allergies Allergy (Verified 05/13/18 22:17) Review of Systems - Physician Review All systems were reviewed & negative as marked: Yes - Review of Systems Constitutional: Normal Eyes: Normal ENT: Normal Respiratory: Normal, SOB, Wheezing Cardiovascular: Normal. absent: Chest Pain Gastrointestinal: Normal, Nausea. absent: Abdominal Pain, Vomiting Genitourinary Female: Normal. absent: Dysuria, Frequency, Hematuria, Urine Output Changes Musculoskeletal: Normal. absent: Back Pain, Neck Pain Skin: Normal. absent: Rash Neurological: Normal. absent: Headache, Dizziness Endocrine: Normal Hemo/Lymphatic: Normal Psychiatric: Normal Physical Exam Vital Signs Reviewed: Yes Vital Signs Temp Pulse Resp BP Pulse Ox 09/02/17 04:05 82 16 106/66 100 09/02/17 02:05 98.1 F 84 18 112/72 98 09/02/17 00:05 89 20 103/69 100 Temperature: Afebrile Blood Pressure: Normal Pulse: Regular Respiratory Rate: Normal Appearance: Positive for: Well-Appearing, Non-Toxic, Comfortable Pain Distress: None Mental Status: Positive for: Alert and Oriented X 3 - Systems Exam Head: Present: Atraumatic, Normocephalic Pupils: Present: PERRL Extroacular Muscles: Present: EOMI Conjunctiva: Present: Normal Mouth: Present: Moist Mucous Membranes Neck: Present: Normal Range of Motion Respiratory/Chest: Present: Wheezes. No: Respiratory Distress, Accessory Muscle Use Cardiovascular: Present: Regular Rate and Rhythm, Normal S1, S2. No: Murmurs Abdomen: No: Tenderness, Distention, Peritoneal Signs Back: Present: Normal Inspection Upper Extremity: Present: Normal Inspection. No: Cyanosis, Edema Lower Extremity: Present: Normal Inspection. No: Edema Neurological: Present: GCS=15, CN II-XII Intact, Speech Normal Skin: Present: Warm, Dry, Normal Color. No: Rashes Psychiatric: Present: Alert, Oriented x 3, Normal Insight, Normal Concentration Medical Decision Making ED Course and Treatment: 09/02/17 04:10 Impression: 47 year old female presents to the emergency department complaining of usual asthma symptoms Plan: -- EKG -- Labs -- Troponin -- Chest X-ray -- Acetaminophen -- Duoneb -- Lovenox -- Magnesium Sulfate -- SOLU-Medrol -- Protonix -- Potassium Chloride -- Reassess and disposition Progress Notes: Case discussed with Dr. Louise, who is aware and agrees with plan. Patient admitted to hospital services on medical floor. EKG reviewed, shows Sinus at 97 bpm. Normal axis intervals. - Lab Interpretations Lab Results: 09/02/17 02:00 09/02/17 02:00 Lab Results 09/02/17 02:00: pCO2 45, pO2 67.0 L, HCO3 26.0, ABG pH 7.37, ABG Total CO2 27.4 , ABG O2 Saturation 96.4, ABG O2 Content 13.4 L, ABG Base Excess 0.4, ABG Hemoglobin 10.7 L, ABG Carboxyhemoglobin 6.8 H, POC ABG HHb (Measured) 3.3, ABG Methemoglobin 1.0, ABG O2 Capacity 13.9 L, Hgb O2 Saturation 88.9 L, FiO2 100.0 09/02/17 02:00: Sodium 143, Potassium 3.2 L, Chloride 106, Carbon Dioxide 27, Anion Gap 13, BUN 10, Creatinine 0.6 L, Est GFR ( Amer) > 60, Est GFR ( Non-Af Amer) > 60, Random Glucose 110, Calcium 8.3 L, Magnesium 2.3 H, Total Bilirubin 0.1 L, AST 54 H D, ALT 56, Alkaline Phosphatase 84, Lactate Dehydrogenase 422, Total Creatine Kinase 39, Troponin I < 0.01, Total Protein 6.1, Albumin 3.2, Globulin 2.8, Albumin/Globulin Ratio 1.1 09/02/17 02:00: WBC 11.9 H D, RBC 4.13, Hgb 12.1 D, Hct 37.3, MCV 90.3, MCH 29.3, MCHC 32.4, RDW 17.1 H, Plt Count 295, MPV 10.1, Gran % 52.5, Lymph % (Auto ) 37.8 H, [place] % (Auto) 8.0 H, Eos % (Auto) 1.3 L, Baso % (Auto) 0.4, Gran # 6.23, Lymph # (Auto) 4.5 H, [place] # (Auto) 1.0 H, Eos # (Auto) 0.2, Baso # (Auto ) 0.05 - RAD Interpretation Radiology Orders: 09/02/17 00:51 CHEST PORTABLE [RAD] Stat - Medication Orders Current Medication Orders: Acetaminophen (Tylenol 325mg Tab) 650 mg PO Q6 PRN PRN Reason: Fever >100.4 F Albuterol/Ipratropium (Duoneb 3 Mg/0.5 Mg (3 Ml) Ud) 3 ml IH Q2H PRN PRN Reason: Shortness of Breath Albuterol/Ipratropium (Duoneb 3 Mg/0.5 Mg (3 Ml) Ud) 3 ml IH [id number] JACK Enoxaparin Sodium (Lovenox) 30 mg SC DAILY JACK PRN Reason: Protocol Lorazepam (Ativan) 1 mg IVP Q6H PRN; Protocol PRN Reason: Anxiety Last Admin: 09/02/17 05:15 Dose: 1 mg IVP Administration Document 09/02/17 05:15 BN (Rec: 09/02/17 05:15 BN [facility] [id number]) Charges for Administration # of IVP Administrations 1 Behavioural Document 09/02/17 05:15 BN (Rec: 09/02/17 05:15 BN [facility] [id number]) Maintenance Maintenance Dose No Nonmedicinal Nonmedicinal Interventions Therapeutic Communication Give food/fluids Behavior Behavior for Medication: Anxiety Methylprednisolone (Solu-Medrol) 60 mg IVP Q12 [facility] Multivitamins/Minerals (Therapeutic-M Tab) 1 tab PO 0800 [facility] Pantoprazole Sodium (Protonix Ec Tab) 40 mg PO DAILY [facility] Vitamin B Complex/Vit C/Folic Acid (Nephro-Jorge) 1 tab PO 0800 [facility] Discontinued Medications Albuterol/Ipratropium (Duoneb 3 Mg/0.5 Mg (3 Ml) Ud) 3 ml IH Q15M JACK Stop: 09/02/17 01:31 Last Admin: 09/02/17 01:30 Dose: 3 ml Magnesium Sulfate 2 gm/ Sodium (Chloride) 104 mls @ 102 mls/hr IVPB ONCE ONE Stop: 09/02/17 01:52 Last Admin: 09/02/17 01:47 Dose: 102 mls/hr eMAR Start Stop Document 09/02/17 01:47 HUGH (Rec: 09/02/17 01:48 HUGH [id number]) Intravenous Solution Start Date 09/02/17 Start Time 01:48 End Date 05/19/18 End time 02:58 Total Infusion Time 70 Methylprednisolone (Solu-Medrol) 125 mg IVP STAT STA Stop: 09/02/17 00:52 Last Admin: 09/02/17 01:39 Dose: 125 mg IVP Administration Document 09/02/17 01:39 HUGH (Rec: 09/02/17 01:39 HUGH [id number]) Charges for Administration # of IVP Administrations 1 Potassium Chloride (K-Dur 20 Meq Er Tab) 40 meq PO STAT STA Stop: 09/02/17 04:07 Last Admin: 09/02/17 04:21 Dose: 40 meq - Scribe Statement The provider has reviewed the documentation as recorded by the Rosettaibclive Guadalupe All medical record entries made by the Rosettaibclive were at my direction and personally dictated by me. I have reviewed the chart and agree that the record accurately reflects my personal performance of the history, physical exam, medical decision making, and the department course for this patient. I have also personally directed, reviewed, and agree with the discharge instructions and disposition. Disposition/Present on Arrival - Present on Arrival Any Indicators Present on Arrival: No History of DVT/PE: No History of Uncontrolled Diabetes: No Urinary Catheter: No History of Decub. Ulcer: No History Surgical Site Infection Following: None - Disposition Have Diagnosis and Disposition been Completed?: Yes Diagnosis: Asthma exacerbation in COPD Disposition: HOSPITALIZED Disposition Time: 02:45 Condition: FAIR
[2017-09-02 06:17] VITALS: BP 124/71; PULSE 90; RESP 22
[2017-09-02] MEDS ORDERED: Albuterol-Ipratrop 3 mg / 0.5 (3 ml) UD IH SCH (07:30)
[2017-09-02 07:50] VITALS: TEMP 98.6; O2SAT 93
[2017-09-02] MEDS ORDERED: Multivitamin With Minerals Tab PO SCH (08:00)
[2017-09-02] MEDS ORDERED: Multivitamin Vitamin B Complex (Nephro-Vite) Tab PO SCH (08:00)
[2017-09-02] MEDS ORDERED: Enoxaparin 40 mg Syringe SC SCH (10:00)
[2017-09-02] MEDS ORDERED: Enoxaparin 30 mg Syringe SC SCH (10:00)
[2017-09-02] MEDS ORDERED: Pantoprazole 40 mg EC Tab PO SCH (10:00)
[2017-09-02] MEDS ORDERED: MethylPREDNISolone 40 mg Vial IVP SCH ×2 (10:00)
--- NOTE | 2017-09-02 10:20 | RAD ---
HISTORY: r/o infiltrate COMPARISON: 08/28/2017 FINDINGS: LUNGS: No active pulmonary disease. PLEURA: No significant pleural effusion identified, no pneumothorax apparent. CARDIOVASCULAR: Normal. OSSEOUS STRUCTURES: No significant abnormalities. Healed posterior lateral right rib fractures VISUALIZED UPPER ABDOMEN: Normal. OTHER FINDINGS: None. IMPRESSION: No active disease. No significant interval change compared to the prior examination(s).
--- NOTE | 2017-09-02 11:26 | RAD ---
HISTORY: shortness of breath COMPARISON: September 02, 2017. Time of the most recent examination: 01:44. TECHNIQUE: Chest PA and lateral FINDINGS: LUNGS: No active pulmonary disease. PLEURA: No significant pleural effusion identified. No pneumothorax apparent. CARDIOVASCULAR: Normal. OSSEOUS STRUCTURES: No significant abnormalities. VISUALIZED UPPER ABDOMEN: Normal. OTHER FINDINGS: None. IMPRESSION: No active disease.
--- NOTE | 2017-09-02 15:16 | CARD ---
APPROVED REPORT EKG Measurement Heart [id number] <Conclusion> Normal sinus rhythm Normal ECG
--- NOTE | 2017-09-02 15:19 | CARD ---
APPROVED REPORT EKG Measurement Heart [id number] <Conclusion> Normal sinus rhythm Normal ECG
== END 2017-09-02 12:49 | disposition left against medical advice (07) ==
LOC: ED 00:05 → ERH 03:16 → 5RSO 05:07
PROVIDERS: ADMIT Internal Medicine; ATTEND Internal Medicine
DX: J44.1 Chronic obstructive pulmonary disease with (acute) exacerbation (principal); J45.901 Unspecified asthma with (acute) exacerbation; D72.829 Elevated white blood cell count, unspecified; E87.6 Hypokalemia; E03.9 Hypothyroidism, unspecified; F17.200 Nicotine dependence, unspecified, uncomplicated; K42.9 Umbilical hernia without obstruction or gangrene; K74.60 Unspecified cirrhosis of liver; Z83.3 Family history of diabetes mellitus; Z90.49 Acquired absence of other specified parts of digestive tract
CPT/HCPCS: 36600; 71045; 71046; 80053; 80320; 82550; 82803; 83615; 83735; 84484; 85025; 93005; 94640; 96365; 96372; 96375; 96376; 99284; G0378; J1650; J2060; J2920; J2930; J3475

== ENCOUNTER 2017-09-09 00:55 | Observation (INO) | payer MEDICAID ==
[2017-09-09 00:55] VITALS: BMI 24.7
[2017-09-09] MEDS ORDERED: Albuterol-Ipratrop 3 mg / 0.5 (3 ml) UD ONE (00:59)
[2017-09-09] MEDS ORDERED: Magnesium Sulfate 2 GM in Sodium Chloride 0.9% 100 ML IVPB ONE (01:26)
--- NOTE | 2017-09-09 01:34 | ED PDOC ---
Arrival/HPI - General Chief Complaint: Respiratory Distress Time Seen by Provider: 09/09/17 00:55 Historian: Patient - History of Present Illness Narrative History of Present Illness (Text): 09/09/17 01:15 47 year old female, whose past medical history includes COPD, asthma, alcohol/ substance abuse, and hepatitis C with cirrhosis, presents to the emergency department complaining of asthma symptoms. Patient reports shortness of breath and dry cough, but denies any fever, chills, chest pain, abdominal pain, nausea , vomiting, diarrhea, urinary symptoms, back pain, neck pain, headache, dizziness, or any other complaints. Symptom Onset: Sudden Symptom Course: Unchanged Activities at Onset: Light Context: Home Past Medical History - Provider Review Nursing Documentation Reviewed: Yes - Infectious Disease Hx of Infectious Diseases: None - Tetanus Immunization Tetanus Immunization: Unknown - Cardiac Hx Angina: No Hx Pacemaker: No - Pulmonary Hx Respiratory Disorders: Yes (CURRENTLY SMOKES CIGARETTES 10 CIG A DAY) Hx Asthma: Yes Hx Bronchitis: Yes Hx Chronic Obstructive Pulmonary Disease (COPD): Yes - Neurological Hx Neurological Disorder: Yes (CLOGGED EARS) HX Cerebrovascular Accident: No - HEENT Hx HEENT Disorder: No - Renal Hx Renal Disorder: No - Endocrine/Metabolic Hx Endocrine Disorders: Yes Hx Hypothyroidism: Yes - Hematological/Oncological Hx Blood Disorders: No Hx Cancer: No - Integumentary Hx Dermatological Disorder: Yes - Musculoskeletal/Rheumatological Hx Falls: No - Gastrointestinal Hx Gastrointestinal Disorders: Yes Hx Pancreatitis: (pt denies pancreatitis) Other/Comment: Umbilical hernia /cirrhosis/ distended abd - Genitourinary/Gynecological Hx Genitourinary Disorders: No Hx Sexually Transmitted Diseases: (pt denies trichomonas) - Psychiatric Hx Psychophysiologic Disorder: Yes Hx Anxiety: Yes Hx Depression: Yes Hx Substance Use: Yes (daily) Other/Comment: alcohol drinks 4 or 5 24 oz cans of 4-frances a day, 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 - Surgical History Hx Appendectomy: Yes Hx Mastectomy: No - Anesthesia Hx Anesthesia: Yes Hx Anesthesia Reactions: No Hx Malignant Hyperthermia: No - Suicidal Assessment Feels Threatened In Home Enviroment: No Family/Social History - Physician Review Nursing Documentation Reviewed: Yes Family/Social History: No Known Family HX Smoking Status: Light Smoker < 10 Cigarettes Daily Hx Alcohol Use: Yes Hx Substance Use: Yes (daily) Substance used: heroin Hx Substance Use Treatment: Yes Allergies/Home Meds Allergies/Adverse Reactions: Allergies No Known Allergies Allergy (Verified 08/27/17 22:17) Home Medications: Home Meds Medication Instructions Recorded Confirmed No Known Home Med 09/09/17 09/09/17 Review of Systems - Physician Review All systems were reviewed & negative as marked: Yes - Review of Systems Constitutional: absent: Fevers, Other (Chills) Respiratory: SOB, Cough Cardiovascular: absent: Chest Pain Gastrointestinal: absent: Abdominal Pain, Diarrhea, Nausea, Vomiting Genitourinary Female: absent: Dysuria, Frequency, Hematuria Musculoskeletal: absent: Back Pain, Neck Pain Neurological: absent: Headache, Dizziness Physical Exam Vital Signs Reviewed: Yes Vital Signs Temp Pulse Resp BP Pulse Ox 09/09/17 03:51 80 20 120/77 96 09/09/17 02:00 97.4 F L 82 18 120/70 97 09/09/17 01:51 22 95 09/09/17 00:55 97.8 F 87 22 115/71 95 Temperature: Afebrile Blood Pressure: Normal Pulse: Regular Respiratory Rate: Normal Appearance: Positive for: Well-Appearing, Non-Toxic, Comfortable Pain Distress: None Mental Status: Positive for: Alert and Oriented X 3 - Systems Exam Head: Present: Atraumatic, Normocephalic Pupils: Present: PERRL Extroacular Muscles: Present: EOMI Conjunctiva: Present: Normal Mouth: Present: Moist Mucous Membranes Neck: Present: Normal Range of Motion Respiratory/Chest: Present: Wheezes (expirtory wheeze), Other (Prolonged expirtory phase). No: Respiratory Distress, Accessory Muscle Use Cardiovascular: Present: Regular Rate and Rhythm, Normal S1, S2. No: Murmurs Abdomen: No: Tenderness, Distention, Peritoneal Signs Back: Present: Normal Inspection Upper Extremity: Present: Normal Inspection. No: Cyanosis, Edema Lower Extremity: Present: Normal Inspection. No: Edema Neurological: Present: GCS=15, CN II-XII Intact, Speech Normal Skin: Present: Warm, Dry, Normal Color. No: Rashes Psychiatric: Present: Alert, Oriented x 3, Normal Insight, Normal Concentration Medical Decision Making ED Course and Treatment: 09/09/17 01:15 Impression: 47 year old female presents complaining of shortness of breath and dry cough. Patient's past medical history includes asthma. Plan: -- EKG -- Labs -- Chest X-Ray -- Douneb, IV Fluids, Solu-medrol -- Reassess and disposition Prior Visits: Notes and results from previous visits were reviewed. On 09/02/2017 patient came in complaining of shortness of breath for the past couple of days. Patient was admitted. Progress Notes: Patient refusing BiPAP from respiratory therapist. 09/09/17 03:32 EKG: Ordered, reviewed, and independently interpreted the EKG. Rate : 84 BPM Rhythm : NSR Interpretation : incomplete RBBB. Normal axis. Comparison : No previous EKG for comparison. CXR Impression: As read by me, no acute disease. No change from previous. 09/09/17 04:03 Case discussed with Statistical Machine Servicer and Dr. Vickie Louise who is aware and agrees with the plan. Accepts patient into Hospitalist service. - Lab Interpretations Lab Results: 09/09/17 03:00 09/09/17 03:00 Lab Results 09/09/17 03:00: pO2 84 H, VBG pH 7.44 H, VBG pCO2 45.0, VBG HCO3 30.6 H, VBG Total CO2 32.0 H, VBG O2 Sat (Calc) 98.1 H, VBG Base Excess 5.6 H, VBG Potassium 3.3 L, Sodium 140.0, Chloride 106.0, Glucose 125 H, Lactate 1.6, FiO2 21.0, Venous Blood Potassium 3.3 L 09/09/17 03:00: pCO2 42, pO2 52.0 L, HCO3 26.0, ABG pH 7.40, ABG Total CO2 27.3 , ABG O2 Saturation 90.2 L, ABG O2 Content 14.4 L, ABG Base Excess 1.0, ABG Hemoglobin 12.4, ABG Carboxyhemoglobin 7.7 H, POC ABG HHb (Measured) 9.0 H, ABG Methemoglobin 0.9, ABG O2 Capacity 16.0, Hgb O2 Saturation 82.5 L, FiO2 21.0 09/09/17 03:00: Sodium 144, Chloride 104, Potassium 3.3 L, Carbon Dioxide 28, Anion Gap 15, BUN 7, Creatinine 0.5 L, Est GFR ( Amer) > 60, Est GFR (Non -Af Amer) > 60, Random Glucose 118 H, Calcium 8.2 L, Total Bilirubin 0.4, AST 106 H D, ALT 80 H, Alkaline Phosphatase 115, Lactate Dehydrogenase 581, Total Creatine Kinase 74, Troponin I 0.10 D, Total Protein 6.6, Albumin 3.5, Globulin 3.1, Albumin/Globulin Ratio 1.1 09/09/17 03:00: WBC 11.3 H, RBC 4.31, Hgb 12.6, Hct 38.6, MCV 89.6, MCH 29.2, MCHC 32.6, RDW 17.4 H, Plt Count 411, MPV 9.8, Gran % 64.6, Lymph % (Auto) 27.1 , [place] % (Auto) 5.9, Eos % (Auto) 2.0, Baso % (Auto) 0.4, Gran # 7.30 H, Lymph # (Auto) 3.1, [place] # (Auto) 0.7 H, Eos # (Auto) 0.2, Baso # (Auto) 0.04 I have reviewed the lab results: Yes - RAD Interpretation Radiology Orders: 09/09/17 01:25 CHEST PORTABLE [RAD] Stat - EKG Interpretation Interpreted by ED Physician: Yes Type: 12 lead EKG - Medication Orders Current Medication Orders: Albuterol/Ipratropium (Duoneb 3 Mg/0.5 Mg (3 Ml) Ud) 3 ml IH [id number] JACK Albuterol/Ipratropium (Duoneb 3 Mg/0.5 Mg (3 Ml) Ud) 3 ml IH Q2H PRN PRN Reason: Shortness of Breath Famotidine (Pepcid) 20 mg PO 1000,2200 JACK Folic Acid 1 mg/ Thiamine HCl 100 mg/ Multivitamins/Vitamin C 10 ml/ Dextrose 1 ,011.2 mls @ 100 mls/hr IV .[id number] JACK Lorazepam (Ativan) 1 mg IVP Q4H PRN; Protocol PRN Reason: Symptoms of alcohol withdrawl Nicotine (Nicoderm Cq) 1 patch TD DAILY JACK Discontinued Medications Albuterol Sulfate (Albuterol 0.083% Inhal Yue (2.5 Mg/3 Ml) Ud) 2.5 mg INH STAT STA Stop: 09/09/17 02:56 Last Admin: 09/09/17 03:52 Dose: 2.5 mg Albuterol/Ipratropium (Duoneb 3 Mg/0.5 Mg (3 Ml) Ud) 3 ml IH Q15M JACK Stop: 09/09/17 02:01 Last Admin: 09/09/17 03:56 Dose: 3 ml Magnesium Sulfate 2 gm/ Sodium (Chloride) 104 mls @ 102 mls/hr IVPB ONCE ONE Stop: 09/09/17 02:27 Last Admin: 09/09/17 01:42 Dose: 102 mls/hr eMAR Start Stop Document 09/09/17 01:42 OCS (Rec: 09/09/17 01:42 OCS [id number]) Intravenous Solution Start Date 09/09/17 Start Time 01:42 End Date 09/09/17 End time 02:44 Total Infusion Time 62 Methylprednisolone (Solu-Medrol) 125 mg IVP STAT STA Stop: 09/09/17 01:23 Last Admin: 09/09/17 01:39 Dose: 125 mg IVP Administration Document 09/09/17 01:39 OCS (Rec: 09/09/17 01:39 OCS [id number]) Charges for Administration # of IVP Administrations 1 Potassium Chloride (K-Dur 20 Meq Er Tab) 40 meq PO STAT STA Stop: 09/09/17 03:54 Last Admin: 09/09/17 04:40 Dose: 40 meq - Scribe Statement The provider has reviewed the documentation as recorded by the Jc Reddy Provider Scribe Attestation: All medical record entries made by the Jc were at my direction and personally dictated by me. I have reviewed the chart and agree that the record accurately reflects my personal performance of the history, physical exam, medical decision making, and the department course for this patient. I have also personally directed, reviewed, and agree with the discharge instructions and disposition. Disposition/Present on Arrival - Present on Arrival Any Indicators Present on Arrival: No History of DVT/PE: No History of Uncontrolled Diabetes: No Urinary Catheter: No History of Decub. Ulcer: No History Surgical Site Infection Following: None - Disposition Have Diagnosis and Disposition been Completed?: Yes Diagnosis: Asthma exacerbation in COPD, Alcohol abuse Disposition: HOSPITALIZED Disposition Time: 03:30 Condition: FAIR
[2017-09-09] MEDS: Albuterol-Ipratrop 3 mg / 0.5 (3 ml) UD IH SCH ×6 (01:39→21:16)
[2017-09-09] MEDS ORDERED: Albuterol 0.083% Inhal Sol (2.5 mg/3 mL) UD INH STA (02:55)
[2017-09-09 03:14] LABS: BASO # 0.04 K/mm3 (0.0-2.0); BASO % 0.4 % (0.0-3.0); EOS # 0.2 (0.0-0.7); GRAN # 7.3 (1.4-6.5); GRAN % 64.6 % (50.0-68.0); HEMOGLOBIN 12.6 g/dL (12.0-16.0); LYMPH # 3.1 (1.2-3.4); LYMPH % 27.1 % (22.0-35.0); MEAN CELL VOLUME 89.6 fl (80.0-105.0); MEAN CORPUSCULAR HEMOGLOBIN 29.2 pg (25.0-35.0); MEAN CORPUSCULAR HGB CONC 32.6 g/dl (31.0-37.0); MEAN PLATELET VOLUME 9.8 fl (7.0-11.0); MONO # 0.7 (0.1-0.6); MONO % 5.9 % (1.0-6.0); RBC 4.31 10^6/uL (3.5-6.1); RED CELL DISTRIBUTION WIDTH 17.4 % (11.5-14.5); WHITE BLOOD COUNT 11.3 10^3/ul (4.5-11.0)
[2017-09-09 03:19] LABS: ARTERIAL BLOOD GAS HEMOGLOBIN 12.4 g/dL (11.7-17.4); ARTERIAL BLOOD GAS O2 CONTENT 14.4 ML/dl (15-23); ARTERIAL BLOOD GAS O2 SAT 90.2 % (95-98); ARTERIAL BLOOD GAS PCO2 42 mm/Hg (35-45); ARTERIAL BLOOD GAS TCO2 27.3 mmol.L (22-28)
[2017-09-09 03:27] LABS: VENOUS BLOOD GAS BASE EXCESS 5.6 mmol/L (0.0-2.0); VENOUS BLOOD GAS PO2 84 mm/Hg (30-55); VENOUS BLOOD PH 7.44 (7.32-7.43)
[2017-09-09 03:43] LABS: ALB/GLOB RATIO 1.1 (1.1-1.8); ALBUMIN 3.5 g/dL (3.0-4.8); ALT/SGPT 80 U/L (7-56); AST/SGOT 106 U/L (14-36); BLOOD UREA NITROGEN 7 mg/dL (7-21); CALCIUM 8.2 mg/dL (8.4-10.5); GFR AFRICAN-AMERICAN > 60; GFR NON-AFRICAN AMERICAN > 60
[2017-09-09] MEDS ORDERED: Potassium Chloride 20 mEq ER Tab PO STA (03:53)
[2017-09-09] MEDS ORDERED: Albuterol-Ipratrop 3 mg / 0.5 (3 ml) UD IH PRN (04:09)
--- NOTE | 2017-09-09 04:14 | CP.PCM.HP ---
<Mery Colon - Last Filed: 09/09/17 05:03> History of Present Illness - History of Present Illness History of Present Illness: 47 year old female, whose past medical history includes COPD, asthma, alcohol/ substance abuse, and hepatitis C with cirrhosis, presents to the emergency department complaining of shortness of breath. Patient reports shortness of breath and dry cough, but denies any fever, chills, chest pain, abdominal pain, nausea, vomiting, diarrhea, urinary symptoms, back pain, neck pain, headache, dizziness, or any other complaints. She drinks alcohol, as much as she can get her hands on. She snorts heroin with her left nostril. She denies doing any new drugs. PMH: COPD, asthma, alcohol/heroin abuse, and hepatitis C with liver cirrhosis PSH: Appendectomy, tonsillectomy FMH: Father-DM2 SOCHx: Tobacco: 0.5 PPD >30 years, ETOH: Daily use, 5 beers daily, ID: reports prior IVDU, currently snorts heroin 2-10 bags weekly; homeless Allergies: NKDA Medications: As per MAR PMD: None Present on Admission - Present on Admission Any Indicators Present on Admission: No Review of Systems - Review of Systems All systems: reviewed and no additional remarkable complaints except (as per HPI ) Past Patient History - Infectious Disease Hx of Infectious Diseases: None - Tetanus Immunizations Tetanus Immunization: Unknown - Past Medical History & Family History Past Medical History?: Yes - Past Social History Smoking Status: Light Smoker < 10 Cigarettes Daily - CARDIAC Hx Angina: No Hx Pacemaker: No - PULMONARY Hx Respiratory Disorders: Yes (CURRENTLY SMOKES CIGARETTES 10 CIG A DAY) Hx Asthma: Yes Hx Bronchitis: Yes Hx Chronic Obstructive Pulmonary Disease (COPD): Yes - NEUROLOGICAL Hx Neurological Disorder: Yes (CLOGGED EARS) HX Cerebrovascular Accident: No - HEENT Hx HEENT Problems: No - RENAL Hx Chronic Kidney Disease: No - ENDOCRINE/METABOLIC Hx Endocrine Disorders: Yes Hx Hypothyroidism: Yes - HEMATOLOGICAL/ONCOLOGICAL Hx Blood Disorders: No Hx Cancer: No - INTEGUMENTARY Hx Dermatological Problems: Yes - MUSCULOSKELETAL/RHEUMATOLOGICAL Hx Falls: No - GASTROINTESTINAL Hx Gastrointestinal Disorders: Yes Hx Pancreatitis: (pt denies pancreatitis) Other/Comment: Umbilical hernia /cirrhosis/ distended abd - GENITOURINARY/GYNECOLOGICAL Hx Genitourinary Disorders: No Hx Sexually Transmitted Disorders: (pt denies trichomonas) - PSYCHIATRIC Hx Psychophysiologic Disorder: Yes Hx Anxiety: Yes Hx Depression: Yes Hx Substance Use: Yes (daily) Other/Comment: alcohol drinks 4 or 5 24 oz cans of 4-frances a day, 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 - SURGICAL HISTORY Hx Appendectomy: Yes Hx Mastectomy: No - ANESTHESIA Hx Anesthesia: Yes Hx Anesthesia Reactions: No Hx Malignant Hyperthermia: No Meds Allergies/Adverse Reactions: Allergies Allergy/AdvReac Type Severity Reaction Status Date / Time No Known Allergies Allergy Verified 08/27/17 22:17 Physical Exam - Constitutional Appears: Unkempt - Head Exam Head Exam: ATRAUMATIC, NORMOCEPHALIC - Eye Exam Eye Exam: EOMI, Normal appearance - ENT Exam ENT Exam: Mucous Membranes Moist, Normal Oropharynx - Neck Exam Neck exam: Positive for: Normal Inspection - Respiratory Exam Respiratory Exam: Wheezes - Cardiovascular Exam Cardiovascular Exam: RRR, +S1, +S2 - GI/Abdominal Exam GI & Abdominal Exam: Normal Bowel Sounds, Soft - Extremities Exam Extremities exam: Positive for: normal inspection. Negative for: calf tenderness - Back Exam Back exam: NORMAL INSPECTION. absent: CVA tenderness (L), CVA tenderness (R) - Neurological Exam Neurological exam: Oriented x3 - Psychiatric Exam Psychiatric exam: Normal Affect, Normal Mood - Skin Skin Exam: Dry, Intact, Normal Color, Warm Results - Vital Signs Recent Vital Signs: Last Vital Signs Temp 97.4 F L 09/09/17 02:00 Pulse 82 09/09/17 02:00 Resp 18 09/09/17 02:00 BP 120/70 09/09/17 02:00 Pulse Ox 97 09/09/17 02:00 - Labs Result Diagrams: 09/09/17 03:00 09/09/17 03:00 Labs: Laboratory Results - last 24 hr 09/09/17 09/09/17 09/09/17 03:00 03:00 03:00 WBC 11.3 H RBC 4.31 Hgb 12.6 Hct 38.6 MCV 89.6 MCH 29.2 MCHC 32.6 RDW 17.4 H Plt Count 411 MPV 9.8 Gran % 64.6 Lymph % (Auto) 27.1 [place] % (Auto) 5.9 Eos % (Auto) 2.0 Baso % (Auto) 0.4 Gran # 7.30 H Lymph # (Auto) 3.1 [place] # (Auto) 0.7 H Eos # (Auto) 0.2 Baso # (Auto) 0.04 pCO2 42 pO2 52.0 L HCO3 26.0 ABG pH 7.40 ABG Total CO2 27.3 ABG O2 Saturation 90.2 L ABG O2 Content 14.4 L ABG Base Excess 1.0 ABG Hemoglobin 12.4 ABG Carboxyhemoglobin 7.7 H POC ABG HHb (Measured) 9.0 H ABG Methemoglobin 0.9 ABG O2 Capacity 16.0 VBG pH VBG pCO2 VBG HCO3 VBG Total CO2 VBG O2 Sat (Calc) VBG Base Excess VBG Potassium Hgb O2 Saturation 82.5 L Sodium 144 Chloride 104 Glucose Lactate FiO2 21.0 Potassium 3.3 L Carbon Dioxide 28 Anion Gap 15 BUN 7 Creatinine 0.5 L Est GFR ( Amer) > 60 Est GFR (Non-Af Amer) > 60 Random Glucose 118 H Calcium 8.2 L Total Bilirubin 0.4 AST 106 H D ALT 80 H Alkaline Phosphatase 115 Lactate Dehydrogenase 581 Total Creatine Kinase 74 Troponin I 0.10 D Total Protein 6.6 Albumin 3.5 Globulin 3.1 Albumin/Globulin Ratio 1.1 Venous Blood Potassium 09/09/17 03:00 WBC RBC Hgb Hct MCV MCH MCHC RDW Plt Count MPV Gran % Lymph % (Auto) [place] % (Auto) Eos % (Auto) Baso % (Auto) Gran # Lymph # (Auto) [place] # (Auto) Eos # (Auto) Baso # (Auto) pCO2 pO2 84 H HCO3 ABG pH ABG Total CO2 ABG O2 Saturation ABG O2 Content ABG Base Excess ABG Hemoglobin ABG Carboxyhemoglobin POC ABG HHb (Measured) ABG Methemoglobin ABG O2 Capacity VBG pH 7.44 H VBG pCO2 45.0 VBG HCO3 30.6 H VBG Total CO2 32.0 H VBG O2 Sat (Calc) 98.1 H VBG Base Excess 5.6 H VBG Potassium 3.3 L Hgb O2 Saturation Sodium 140.0 Chloride 106.0 Glucose 125 H Lactate 1.6 FiO2 21.0 Potassium Carbon Dioxide Anion Gap BUN Creatinine Est GFR ( Amer) Est GFR (Non-Af Amer) Random Glucose Calcium Total Bilirubin AST ALT Alkaline Phosphatase Lactate Dehydrogenase Total Creatine Kinase Troponin I Total Protein Albumin Globulin Albumin/Globulin Ratio Venous Blood Potassium 3.3 L Assessment & Plan - Assessment and Plan (Free Text) Assessment: 47 year old female with past medical history of COPD, asthma, alcohol and heroin abuse, hepatitis C with cirrhosis, and homelessness who presents to ED with shortness of breath. Patient to be admitted for asthma exacerbation. Plan: Asthma Exacerbation - duobneb Q2H prn, Q6H schedule - Chest X-ray shows no infiltrate - Steroids deferred at this time Chest discomfort - Initial troponin 0.10, will trend x 3 - EKG showed incomplete RBBB, no significant ST-T wave changes Alcohol abuse/ withdrawal/Smoking - Bananna Bag - Start MV, Folic acid, thiamine in mornin - CIWA - Ativan 1 mg Q4H prn - Seizure precaution - Nicotine 7 mg transdermal patch to be applied daily and taken off at bedtime Transaminitis - AST:ALT ratio of 2; likely alcoholic liver disease GI/DVT ppx: - Pepcid - SCD Case reviewed and discussed with attending physician, Dr. Manuela Louise - Date & Time Date: 09/09/17 Time: 04:28 <Manuela Louise N - Last Filed: 09/10/17 22:43> Results - Vital Signs Recent Vital Signs: Last Vital Signs Temp 98.8 F 09/10/17 06:00 Pulse 82 09/10/17 06:00 Resp 19 09/10/17 06:00 BP 114/72 09/10/17 06:00 Pulse Ox 100 09/10/17 06:00 - Labs Result Diagrams: 09/09/17 03:00 09/09/17 03:00
[2017-09-09] MEDS: Folic Acid 1 MG, Thiamine 100 MG, Multivitamin (MVI) 10 ML in Dextrose 5% In Water 1,00... IV SCH ×2 (05:38→18:46)
[2017-09-09] MEDS ORDERED: Albuterol-Ipratrop 3 mg / 0.5 (3 ml) UD IH SCH (08:00)
--- NOTE | 2017-09-09 09:07 | RAD ---
HISTORY: r/o infiltrate COMPARISON: Comparison made with prior study 09/02/2017. FINDINGS: LUNGS: No active pulmonary disease. PLEURA: No significant pleural effusion identified, no pneumothorax apparent. CARDIOVASCULAR: Normal. OSSEOUS STRUCTURES: No significant abnormalities. VISUALIZED UPPER ABDOMEN: Normal. OTHER FINDINGS: None. IMPRESSION: No active disease.
[2017-09-09] MEDS ORDERED: MethylPREDNISolone 40 mg Vial IVP SCH (10:00)
--- NOTE | 2017-09-09 12:32 | CARD ---
APPROVED REPORT EKG Measurement Heart [id number] <Conclusion> Normal sinus rhythm rSr Pattern V1-V2.
[2017-09-10] MEDS: Albuterol-Ipratrop 3 mg / 0.5 (3 ml) UD IH SCH ×4 (00:26→11:09)
[2017-09-10] MEDS: Folic Acid 1 MG, Thiamine 100 MG, Multivitamin (MVI) 10 ML in Dextrose 5% In Water 1,00... IV SCH (04:01)
[2017-09-10 06:31] VITALS: O2SAT 100
[2017-09-10] MEDS ORDERED: Albuterol-Ipratrop 3 mg / 0.5 (3 ml) UD IH PRN (11:54)
--- NOTE | 2017-09-10 11:55 | CP.PCM.PN ---
<Linus Escobar - Last Filed: 09/10/17 11:50> Subjective - Date & Time of Evaluation Date of Evaluation: 09/10/17 Time of Evaluation: 11:51 - Subjective Subjective: Patient was observed resting comfortably but when we woke her she started complaining of severe back pain. Denies chest pain or SOB. No nausea or vomiting. Tolerating diet and having regular BM. Objective - Vital Signs/Intake and Output Vital Signs (last 24 hours): Temp Pulse Resp BP Pulse Ox 98.8 F 82 19 114/72 100 09/10/17 06:00 09/10/17 06:00 09/10/17 06:00 09/10/17 06:00 09/10/17 06:00 - Medications Medications: Current Medications Albuterol/Ipratropium (Duoneb 3 Mg/0.5 Mg (3 Ml) Ud) 3 ml IH [id number] [facility] Last Admin: 09/10/17 11:09 Dose: 3 ml Azithromycin (Zithromax) 250 mg PO DAILY [facility] PRN Reason: Protocol Last Admin: 09/10/17 10:03 Dose: 250 mg Famotidine (Pepcid) 20 mg PO 1000,2200 [facility] Last Admin: 09/10/17 10:03 Dose: 20 mg Folic Acid 1 mg/ Thiamine HCl 100 mg/ Multivitamins/Vitamin C 10 ml/ Dextrose 1 ,011.2 mls @ 100 mls/hr IV .Q10H7M [facility] Last Admin: 09/10/17 04:01 Dose: 100 mls/hr Ketorolac Tromethamine (Toradol) 30 mg IVP Q8 [facility] Stop: 09/12/17 14:01 Lorazepam (Ativan) 1 mg IVP Q4H PRN; Protocol PRN Reason: Symptoms of alcohol withdrawl Last Admin: 09/10/17 10:02 Dose: 1 mg Nicotine (Nicoderm Cq) 1 patch TD DAILY [facility] Last Admin: 09/10/17 10:02 Dose: 1 patch - Constitutional Appears: Well - Head Exam Head Exam: ATRAUMATIC, NORMAL INSPECTION, NORMOCEPHALIC - Eye Exam Eye Exam: EOMI, Normal appearance, PERRL Pupil Exam: NORMAL ACCOMODATION, PERRL - ENT Exam ENT Exam: Mucous Membranes Moist, Normal Exam - Neck Exam Neck Exam: Full ROM, Normal Inspection. absent: Lymphadenopathy - Respiratory Exam Respiratory Exam: Clear to Ausculation Bilateral, NORMAL BREATHING PATTERN - Cardiovascular Exam Cardiovascular Exam: REGULAR RHYTHM, +S1, +S2. absent: Murmur - GI/Abdominal Exam GI & Abdominal Exam: Soft, Normal Bowel Sounds. absent: Distended, Tenderness - Extremities Exam Extremities Exam: Full ROM, Normal Capillary Refill, Normal Inspection. absent : Joint Swelling, Pedal Edema - Back Exam Back Exam: NORMAL INSPECTION - Neurological Exam Neurological Exam: Alert, Awake, CN II-XII Intact, Normal Gait, Oriented x3 - Psychiatric Exam Psychiatric exam: Normal Affect, Normal Mood - Skin Skin Exam: Dry, Intact, Normal Color, Warm Assessment and Plan (1) Asthma exacerbation in COPD Assessment & Plan: Benign Respiratory exam D/c steroids Continue duonebs PRN Azithro for 5 days Status: Resolved (2) Chest pain Assessment & Plan: No more chest pain EKG unremarkable and trops are negative Observed on tele for 24 hours - will d/c tele at this point Status: Acute (3) Alcohol withdrawal Assessment & Plan: CIWA protocol - resting comfortable, no tremors or hallucinations, moderately anxious, no tactile disturbances, no tremors - CIWA is 4. She does not require medication at this point. Will continue to monitor frequently for changes in patient status Ativan 1 Q4H PRN for symptoms of alcohol w/d Status: Resolved (4) Back pain Assessment & Plan: Will give Toradol Q8 Pepcid for the concomitant NSAID use Status: Acute - Assessment and Plan (Free Text) Assessment: DVT ppx scd/heparin No GI ppx indicated at this time <Soo Cardona - Last Filed: 09/10/17 12:47> Objective - Vital Signs/Intake and Output Vital Signs (last 24 hours): Temp Pulse Resp BP Pulse Ox 98.8 F 82 19 114/72 100 09/10/17 06:00 09/10/17 06:00 09/10/17 06:00 09/10/17 06:00 09/10/17 06:00 - Medications Medications: Current Medications Albuterol/Ipratropium (Duoneb 3 Mg/0.5 Mg (3 Ml) Ud) 3 ml IH O2IFAMT PRN PRN Reason: Shortness of Breath Azithromycin (Zithromax) 250 mg PO DAILY [facility] PRN Reason: Protocol Stop: 09/14/17 10:01 Last Admin: 09/10/17 10:03 Dose: 250 mg Famotidine (Pepcid) 20 mg PO 1000,2200 [facility] Last Admin: 09/10/17 10:03 Dose: 20 mg Heparin Sodium (Porcine) (Heparin) 5,000 units SC Q8 [facility] PRN Reason: Protocol Folic Acid 1 mg/ Thiamine HCl 100 mg/ Multivitamins/Vitamin C 10 ml/ Dextrose 1 ,011.2 mls @ 100 mls/hr IV .Q10H7M [facility] Last Admin: 09/10/17 04:01 Dose: 100 mls/hr Ketorolac Tromethamine (Toradol) 30 mg IVP Q8 [facility] Stop: 09/12/17 14:01 Lorazepam (Ativan) 1 mg IVP Q4H PRN; Protocol PRN Reason: Symptoms of alcohol withdrawl Last Admin: 09/10/17 10:02 Dose: 1 mg Nicotine (Nicoderm Cq) 1 patch TD DAILY [facility] Last Admin: 09/10/17 10:02 Dose: 1 patch Attending/Attestation - Attestation I have personally seen and examined this patient.: Yes I have fully participated in the care of the patient.: Yes I have reviewed all pertinent clinical information, including history, physical exam and plan: Yes Notes (Text): 09/10/17 12:41 Medical record note made by the resident after discussion with my direction and input after the patient was personally seen and examined by me. I have reviewed the chart and agree that the record accurately reflects by personal performance of the history, physical exam, data review, and medical decision-making, in the course for the patient. I have also personally directed the plan of care. 47 year old homeless female with history of tobacco use, COPD, alcohol and heroin abuse, hepatitis C and noncompliance with medication is admitted for COPD exacerbation.Whezzing has improved, continue Neb/Prednisone. Monitor for withdrawal symptoms. Elevated LFTs; secondary to alcohol abuse. will monitor Indeterminate Borderline Troponin , no h/o chest pain, EKG is negative for ischemic changes, patient remain stable on telemetry, Drug abuse cessation, alcohol cessation is strongly advised. Prognosis is guarded due to non compliance and ongoing alcohol and drug abuse
[2017-09-11] MEDS: Folic Acid 1 MG, Thiamine 100 MG, Multivitamin (MVI) 10 ML in Dextrose 5% In Water 1,00... IV SCH (02:56)
[2017-09-11 07:06] LABS: BASO # 0.02 K/mm3 (0.0-2.0); BASO % 0.2 % (0.0-3.0); EOS # 0.1 (0.0-0.7); EOS % 0.5 % (1.5-5.0); GRAN # 8.71 (1.4-6.5); GRAN % 67.4 % (50.0-68.0); HEMOGLOBIN 12.1 g/dL (12.0-16.0); LYMPH # 3.1 (1.2-3.4); LYMPH % 24.2 % (22.0-35.0); MEAN CELL VOLUME 90.9 fl (80.0-105.0); MEAN CORPUSCULAR HEMOGLOBIN 28.9 pg (25.0-35.0); MEAN CORPUSCULAR HGB CONC 31.8 g/dl (31.0-37.0); MEAN PLATELET VOLUME 10.5 fl (7.0-11.0); MONO % 7.7 % (1.0-6.0); RBC 4.19 10^6/uL (3.5-6.1); RED CELL DISTRIBUTION WIDTH 17.8 % (11.5-14.5); WHITE BLOOD COUNT 12.9 10^3/ul (4.5-11.0)
[2017-09-11 07:38] LABS: ALB/GLOB RATIO 1.1 (1.1-1.8); ALT/SGPT 62 U/L (7-56); AST/SGOT 60 U/L (14-36); BLOOD UREA NITROGEN 12 mg/dL (7-21); CALCIUM 8.1 mg/dL (8.4-10.5); GFR AFRICAN-AMERICAN > 60; GFR NON-AFRICAN AMERICAN > 60
[2017-09-11 08:15] VITALS: BP 133/91; PULSE 67; RESP 22; TEMP 97.5
--- NOTE | 2017-09-11 14:44 | CP.PCM.DIS ---
Provider - Provider Date of Admission: 09/09/17 04:03 Attending physician: Soo Cardona MD Primary care physician: Racheal Profile Required Hospital Course - Lab Results Lab Results: Most Recent Lab Values WBC 12.9 10^3/ul (4.5-11.0) H 09/11/17 06:00 RBC 4.19 10^6/uL (3.5-6.1) 09/11/17 06:00 Hgb 12.1 g/dL (12.0-16.0) 09/11/17 06:00 Hct 38.1 % (36.0-48.0) 09/11/17 06:00 MCV 90.9 fl (80.0-105.0) 09/11/17 06:00 MCH 28.9 pg (25.0-35.0) 09/11/17 06:00 MCHC 31.8 g/dl (31.0-37.0) 09/11/17 06:00 RDW 17.8 % (11.5-14.5) H 09/11/17 06:00 Plt Count 353 10^3/uL (120.0-450.0) 09/11/17 06:00 MPV 10.5 fl (7.0-11.0) 09/11/17 06:00 Gran % 67.4 % (50.0-68.0) 09/11/17 06:00 Lymph % (Auto) 24.2 % (22.0-35.0) 09/11/17 06:00 [place] % (Auto) 7.7 % (1.0-6.0) H 09/11/17 06:00 Eos % (Auto) 0.5 % (1.5-5.0) L 09/11/17 06:00 Baso % (Auto) 0.2 % (0.0-3.0) 09/11/17 06:00 Gran # 8.71 (1.4-6.5) H 09/11/17 06:00 Lymph # (Auto) 3.1 (1.2-3.4) 09/11/17 06:00 [place] # (Auto) 1.0 (0.1-0.6) H 09/11/17 06:00 Eos # (Auto) 0.1 (0.0-0.7) 09/11/17 06:00 Baso # (Auto) 0.02 K/mm3 (0.0-2.0) 09/11/17 06:00 pCO2 42 mm/Hg (35-45) 09/09/17 03:00 pO2 84 mm/Hg (30-55) H 09/09/17 03:00 HCO3 26.0 mmol/L (21-28) 09/09/17 03:00 ABG pH 7.40 (7.35-7.45) 09/09/17 03:00 ABG Total CO2 27.3 mmol.L (22-28) 09/09/17 03:00 ABG O2 Saturation 90.2 % (95-98) L 09/09/17 03:00 ABG O2 Content 14.4 ML/dl (15-23) L 09/09/17 03:00 ABG Base Excess 1.0 mmol/L (-2.0-3.0) 09/09/17 03:00 ABG Hemoglobin 12.4 g/dL (11.7-17.4) 09/09/17 03:00 ABG Carboxyhemoglobin 7.7 % (0.5-1.5) H 09/09/17 03:00 POC ABG HHb (Measured) 9.0 % (0-5) H 09/09/17 03:00 ABG Methemoglobin 0.9 % (0.0-3.0) 09/09/17 03:00 ABG O2 Capacity 16.0 mL/dl (16-24) 09/09/17 03:00 VBG pH 7.44 (7.32-7.43) H 09/09/17 03:00 VBG pCO2 45.0 (40-60) 09/09/17 03:00 VBG HCO3 30.6 mmol/l (21-28) H 09/09/17 03:00 VBG Total CO2 32.0 mmol.L (22-28) H 09/09/17 03:00 VBG O2 Sat (Calc) 98.1 % (40-65) H 09/09/17 03:00 VBG Base Excess 5.6 mmol/L (0.0-2.0) H 09/09/17 03:00 VBG Potassium 3.3 mmol/L (3.6-5.2) L 09/09/17 03:00 Hgb O2 Saturation 82.5 % (95.0-98.0) L 09/09/17 03:00 Sodium 140.0 mmol/L (132-148) 09/09/17 03:00 Chloride 106.0 mmol/L (98-107) 09/09/17 03:00 Glucose 125 mg/dl (65-105) H 09/09/17 03:00 Lactate 1.6 mmol/L (0.7-2.1) 09/09/17 03:00 FiO2 21.0 % 09/09/17 03:00 Sodium 138 mmol/L (132-148) 09/11/17 06:00 Potassium 4.1 mmol/L (3.6-5.0) 09/11/17 06:00 Chloride 102 mmol/L (98-107) 09/11/17 06:00 Carbon Dioxide 29 mmol/L (21-33) 09/11/17 06:00 Anion Gap 12 (10-20) 09/11/17 06:00 BUN 12 mg/dL (7-21) 09/11/17 06:00 Creatinine 0.5 mg/dl (0.7-1.2) L 09/11/17 06:00 Est GFR ( Amer) > 60 09/11/17 06:00 Est GFR (Non-Af Amer) > 60 09/11/17 06:00 Random Glucose 71 mg/dL (70-110) 09/11/17 06:00 Calcium 8.1 mg/dL (8.4-10.5) L 09/11/17 06:00 Total Bilirubin 0.5 mg/dL (0.2-1.3) 09/11/17 06:00 AST 60 U/L (14-36) H D 09/11/17 06:00 ALT 62 U/L (7-56) H 09/11/17 06:00 Alkaline Phosphatase 86 U/L (38-126) 09/11/17 06:00 Lactate Dehydrogenase 581 U/L (333-699) 09/09/17 03:00 Total Creatine Kinase 74 U/L (35-230) 09/09/17 03:00 Troponin I 0.04 ng/mL 09/09/17 13:58 Total Protein 5.9 g/dL (5.8-8.3) 09/11/17 06:00 Albumin 3.0 g/dL (3.0-4.8) 09/11/17 06:00 Globulin 2.8 gm/dL 09/11/17 06:00 Albumin/Globulin Ratio 1.1 (1.1-1.8) 09/11/17 06:00 Venous Blood Potassium 3.3 mmol/L (3.6-5.2) L 09/09/17 03:00 Alcohol, Quantitative 274 mg/dL (0-10) H 09/09/17 04:05 Discharge Exam - Head Exam Head Exam: ATRAUMATIC, NORMAL INSPECTION, NORMOCEPHALIC Discharge Plan - Discharge Medications Prescriptions: Albuterol HFA [Ventolin HFA 90 mcg/actuation (8 g)] 200 puff IH Q6H PRN #2 inhaler PRN Reason: Shortness Of Breath Budesonide/Formoterol Fumarate [Symbicort 160-4.5 Mcg Inhaler] 10.2 gm IH BID # 1 inhaler Folic Acid 1 mg PO DAILY #30 tab predniSONE [predniSONE Tab] 10 mg PO DAILY #2 tab predniSONE [predniSONE Tab] 30 mg PO DAILY #2 tab predniSONE [predniSONE Tab] 20 mg PO DAILY #2 tab predniSONE [predniSONE Oral Soln] 5 mg PO DAILY #2 udc Thiamine [Vitamin B1 Tab] 100 mg PO DAILY #30 tab - Follow Up Plan Condition: FAIR Disposition: HOME/ ROUTINE Instructions: Drug Abuse and Drug Addiction (DC), Effects of Alcohol on Your Health, Chest Pain (DC), Chest Pain (GEN), Back Pain (GEN) Additional Instructions: Discharge patient today. Take prescriptions as discussed. Report to the ED if your symptoms worsen. Referrals: Racheal Mtz, [Primary Care Provider] -
== END 2017-09-11 13:15 | disposition home or self-care (01) ==
LOC: ED 00:55 → ERH 04:03 → 2RSO 05:18 → 5RNO 09-10 12:07
PROVIDERS: ADMIT Internal Medicine; ATTEND Internal Medicine
DX: J44.1 Chronic obstructive pulmonary disease with (acute) exacerbation (principal); J45.901 Unspecified asthma with (acute) exacerbation; F10.239 Alcohol dependence with withdrawal, unspecified; B19.20 Unspecified viral hepatitis C without hepatic coma; K70.30 Alcoholic cirrhosis of liver without ascites; M54.9 Dorsalgia, unspecified; R07.9 Chest pain, unspecified; F11.10 Opioid abuse, uncomplicated; F17.210 Nicotine dependence, cigarettes, uncomplicated; Z59.0 Homelessness; Z91.14 Patient's other noncompliance with medication regimen
CPT/HCPCS: 36415; 71045; 80053; 80320; 82550; 82803; 83615; 84484; 85025; 87040; 93005; 94640; 94760; 96365; 96372; 96375; 96376; 99285; G0378; J1644; J1885; J2060; J2920; J2930; J3411; J3475; J7070

== ENCOUNTER 2017-09-15 00:17 | Emergency (ER) | payer MEDICAID ==
[2017-09-15 00:18] VITALS: BMI 24.7
[2017-09-15 00:40] VITALS: O2SAT 98
[2017-09-15] MEDS ORDERED: Albuterol-Ipratrop 3 mg / 0.5 (3 ml) UD IH STA ×2 (00:46→01:07)
--- NOTE | 2017-09-15 01:02 | ED PDOC ---
Arrival/HPI - General Chief Complaint: Shortness Of Breath Time Seen by Provider: 09/15/17 00:45 Historian: Patient - History of Present Illness Narrative History of Present Illness (Text): 09/15/17 00:59 47 year old female, whose past medical history includes COPD, asthma, alcohol/ substance abuse, and hepatitis C with cirrhosis, presents complaining of shortness of breath that began tonight. Patient denies any fever, chills, chest pain, nausea, vomiting, diarrhea, urinary symptoms, back pain, neck pain, headache, dizziness, or any other complaints. Past Medical History - Provider Review Nursing Documentation Reviewed: Yes - Infectious Disease Hx of Infectious Diseases: None - Tetanus Immunization Tetanus Immunization: Unknown - Cardiac Hx Cardiac Disorders: Yes Hx Congestive Heart Failure: Yes Hx Hypertension: Yes - Pulmonary Hx Respiratory Disorders: Yes Hx Asthma: Yes Hx Chronic Obstructive Pulmonary Disease (COPD): Yes - Neurological Hx Neurological Disorder: No - HEENT Hx HEENT Disorder: No - Renal Hx Renal Disorder: Yes - Endocrine/Metabolic Hx Endocrine Disorders: No - Hematological/Oncological Hx Blood Disorders: Yes Hx Hepatitis C: Yes - Integumentary Hx Dermatological Disorder: No - Musculoskeletal/Rheumatological Hx Musculoskeletal Disorders: No Hx Falls: No - Gastrointestinal Hx Gastrointestinal Disorders: Yes Hx Gastrointestinal Ulcer: Yes Hx Pancreatitis: Yes - Genitourinary/Gynecological Hx Genitourinary Disorders: Yes Hx Sexually Transmitted Diseases: Yes - Psychiatric Hx Psychophysiologic Disorder: Yes Hx Anxiety: Yes Hx Depression: Yes Hx Substance Use: Yes - Surgical History Hx Appendectomy: Yes Other/Comment: tonsillectomy - Anesthesia Hx Anesthesia: Yes Hx Anesthesia Reactions: No Hx Malignant Hyperthermia: No - Suicidal Assessment Feels Threatened In Home Enviroment: No Family/Social History - Physician Review Nursing Documentation Reviewed: Yes Family/Social History: No Known Family HX Smoking Status: Current Some Days Smoker Hx Alcohol Use: Yes Hx Substance Use: Yes Substance used: heroin Hx Substance Use Treatment: Yes Allergies/Home Meds Allergies/Adverse Reactions: Allergies No Known Allergies Allergy (Verified 08/27/17 22:17) Review of Systems - Physician Review All systems were reviewed & negative as marked: Yes - Review of Systems Constitutional: absent: Fevers, Other (Chills) Respiratory: SOB Cardiovascular: absent: Chest Pain Gastrointestinal: absent: Abdominal Pain Genitourinary Female: absent: Dysuria, Frequency, Hematuria Musculoskeletal: absent: Back Pain, Neck Pain Neurological: absent: Headache, Dizziness Physical Exam Vital Signs Reviewed: Yes Vital Signs Temp Pulse Resp BP Pulse Ox 09/15/17 02:09 98.7 F 90 18 107/61 98 09/15/17 00:45 22 98 09/15/17 00:39 98.5 F 88 22 102/56 L 98 Temperature: Afebrile Blood Pressure: Normal Pulse: Regular Respiratory Rate: Normal Appearance: Positive for: Well-Appearing, Non-Toxic, Comfortable Pain Distress: None Mental Status: Positive for: Alert and Oriented X 3 - Systems Exam Head: Present: Atraumatic, Normocephalic Pupils: Present: PERRL Extroacular Muscles: Present: EOMI Conjunctiva: Present: Normal Mouth: Present: Moist Mucous Membranes Neck: Present: Normal Range of Motion Respiratory/Chest: Present: Clear to Auscultation, Good Air Exchange. No: Respiratory Distress, Accessory Muscle Use, Wheezes Cardiovascular: Present: Regular Rate and Rhythm, Normal S1, S2. No: Murmurs Abdomen: No: Tenderness, Distention, Peritoneal Signs Back: Present: Normal Inspection Upper Extremity: Present: Normal Inspection. No: Cyanosis, Edema Lower Extremity: Present: Normal Inspection. No: Edema Neurological: Present: GCS=15, CN II-XII Intact, Speech Normal Skin: Present: Warm, Dry, Normal Color. No: Rashes Psychiatric: Present: Alert, Oriented x 3, Normal Insight, Normal Concentration Medical Decision Making ED Course and Treatment: 09/15/17 01:04 Impression: 47 year old female presents complaining of shortness of breath that began tonight. Plan: -- Douneb -- Solu-medrol -- Reassess and disposition Prior Visits: Notes and results from previous visits were reviewed. Patient was last seen in the emergency department on 09/09/17 presents complaining of asthma symptoms. Patient was admitted. Progress Notes: 09/15/17 01:30 On re-evaluation, patient feels better and is in no acute distress. I have discussed the results and plan with the patient, who expresses understanding. Patient in agreement with plan to be discharged home. Patient is stable for discharge. Patient was instructed to follow up with physician or return if symptoms worsen or new concerning symptoms arise. - Medication Orders Current Medication Orders: Discontinued Medications Albuterol (Ventolin Hfa 90 Mcg/Actuation (8 G)) 2 puff IH ONCE ONE Stop: 09/15/17 01:28 Last Admin: 09/15/17 01:48 Dose: 2 puff Albuterol/Ipratropium (Duoneb 3 Mg/0.5 Mg (3 Ml) Ud) 3 ml IH STAT STA Stop: 09/15/17 00:47 Last Admin: 09/15/17 01:02 Dose: 3 ml Albuterol/Ipratropium (Duoneb 3 Mg/0.5 Mg (3 Ml) Ud) 3 ml IH STAT STA Stop: 09/15/17 01:08 Last Admin: 09/15/17 01:08 Dose: 3 ml Methylprednisolone (Solu-Medrol) 125 mg IM STAT STA Stop: 09/15/17 00:47 Last Admin: 09/15/17 01:02 Dose: 125 mg IM Administration Charges Document 09/15/17 01:02 RG (Rec: 09/15/17 01:07 ARIEL [id number]) Injection Site MAR Injection Site Left Deltoid Charges for Administration # of IM Administrations 1 Methylprednisolone Acetate (Depo-Medrol) 80 mg IM ONCE ONE Stop: 09/15/17 01:26 Last Admin: 09/15/17 01:55 Dose: 80 mg IM Administration Charges Document 09/15/17 01:55 RG (Rec: 09/15/17 01:55 ARIEL [id number]) Injection Site MAR Injection Site Right Arm Charges for Administration # of IM Administrations 1 - Scribe Statement The provider has reviewed the documentation as recorded by the Jc Reddy Provider Scribe Attestation: All medical record entries made by the Jc were at my direction and personally dictated by me. I have reviewed the chart and agree that the record accurately reflects my personal performance of the history, physical exam, medical decision making, and the department course for this patient. I have also personally directed, reviewed, and agree with the discharge instructions and disposition. Disposition/Present on Arrival - Present on Arrival Any Indicators Present on Arrival: No History of DVT/PE: No History of Uncontrolled Diabetes: No Urinary Catheter: No History of Decub. Ulcer: No History Surgical Site Infection Following: None - Disposition Have Diagnosis and Disposition been Completed?: Yes Diagnosis: COPD (chronic obstructive pulmonary disease) Disposition: HOME/ ROUTINE Disposition Time: :25 Patient Plan: Discharge Patient Problems: Current Active Problems Problem Status Onset COPD (chronic obstructive pulmonary disease) Acute Condition: GOOD Discharge Instructions (ExitCare): Chronic Obstructive Pulmonary Disease (COPD) , Including Emphysema Additional Instructions: Return to us if problems. Kade- Dr. Austin Hu Forms: [employer] (Ugandan)
[2017-09-15] MEDS ORDERED: MethylPREDNISolone Depo 80 mg/ml (5 ml) Inj IM ONE (01:25)
[2017-09-15] MEDS ORDERED: Albuterol HFA 90 mcg/actuation (8 g) IH ONE (01:27)
[2017-09-15 02:10] VITALS: BP 107/61; PULSE 90; RESP 18; TEMP 98.7
== END 2017-09-15 02:27 | disposition home or self-care (01) ==
LOC: ED 00:17
DX: J44.9 Chronic obstructive pulmonary disease, unspecified (principal); F17.210 Nicotine dependence, cigarettes, uncomplicated
CPT/HCPCS: 94640; 96372; 99284; J1040; J2930

== ENCOUNTER 2017-09-25 21:43 | Emergency (ER) | payer MEDICAID ==
[2017-09-25 21:55] VITALS: BMI 23.0
[2017-09-25] MEDS ORDERED: Albuterol-Ipratrop 3 mg / 0.5 (3 ml) UD ONE (21:55)
[2017-09-25] MEDS ORDERED: MethylPREDNISolone 40 mg Vial IM STA (22:56)
[2017-09-25] MEDS ORDERED: Albuterol-Ipratrop 3 mg / 0.5 (3 ml) UD IH STA (22:56)
--- NOTE | 2017-09-25 23:45 | ED PDOC ---
Arrival/HPI - General Chief Complaint: Respiratory Distress Time Seen by Provider: 09/25/17 21:47 Historian: Patient - History of Present Illness Narrative History of Present Illness (Text): 09/25/17 23:46 47 year old female, whose past medical history includes COPD, asthma, alcohol/ substance abuse, and hepatitis C with cirrhosis, presents to the Emergency department complaining of trouble breathing that began tonight. Patient reports it was triggered due to the weather change. She also reports she ran out of her inhaler. Patient denies any fevers, chills, chest pain, abdominal pain, nausea, vomiting, diarrhea, back pain, neck pain, urinary symptoms, headache, dizziness , or any other complaint. Time/Duration: Other (tonight) Symptom Onset: Sudden Symptom Course: Unchanged Activities at Onset: Light Context: Home Past Medical History - Provider Review Nursing Documentation Reviewed: Yes - Infectious Disease Hx of Infectious Diseases: None - Tetanus Immunization Tetanus Immunization: Unknown - Cardiac Hx Cardiac Disorders: Yes Hx Congestive Heart Failure: Yes Hx Hypertension: Yes - Pulmonary Hx Respiratory Disorders: Yes Hx Asthma: Yes Hx Chronic Obstructive Pulmonary Disease (COPD): Yes - Neurological Hx Neurological Disorder: No - HEENT Hx HEENT Disorder: No - Renal Hx Renal Disorder: Yes - Endocrine/Metabolic Hx Endocrine Disorders: No - Hematological/Oncological Hx Blood Disorders: Yes Hx Hepatitis C: Yes - Integumentary Hx Dermatological Disorder: No - Musculoskeletal/Rheumatological Hx Musculoskeletal Disorders: No Hx Falls: No - Gastrointestinal Hx Gastrointestinal Disorders: Yes Hx Gastrointestinal Ulcer: Yes Hx Pancreatitis: Yes - Genitourinary/Gynecological Hx Genitourinary Disorders: Yes Hx Sexually Transmitted Diseases: Yes - Psychiatric Hx Psychophysiologic Disorder: Yes Hx Anxiety: Yes Hx Depression: Yes Hx Substance Use: Yes - Surgical History Hx Appendectomy: Yes Other/Comment: tonsillectomy - Anesthesia Hx Anesthesia: Yes Hx Anesthesia Reactions: No Hx Malignant Hyperthermia: No - Suicidal Assessment Feels Threatened In Home Enviroment: No Family/Social History - Physician Review Nursing Documentation Reviewed: Yes Family/Social History: No Known Family HX Smoking Status: Current Some Days Smoker Hx Alcohol Use: Yes Hx Substance Use: Yes Substance used: heroin Hx Substance Use Treatment: Yes Allergies/Home Meds Allergies/Adverse Reactions: Allergies No Known Allergies Allergy (Verified 09/25/17 21:56) Review of Systems - Physician Review All systems were reviewed & negative as marked: Yes - Review of Systems Constitutional: absent: Fevers, Other (Chills) Respiratory: SOB Cardiovascular: absent: Chest Pain Gastrointestinal: absent: Abdominal Pain, Diarrhea, Nausea, Vomiting Genitourinary Female: absent: Dysuria, Frequency, Hematuria Musculoskeletal: absent: Back Pain, Neck Pain Neurological: absent: Headache, Dizziness Physical Exam Vital Signs Reviewed: Yes Vital Signs Temp Pulse Resp BP Pulse Ox 09/26/17 01:27 98.2 F 75 17 119/72 97 09/25/17 23:43 98.4 F 72 20 105/52 L 97 09/25/17 21:55 98.6 F 84 32 H 109/81 95 Temperature: Afebrile Blood Pressure: Normal Pulse: Regular Respiratory Rate: Tachypneic Appearance: Positive for: Well-Appearing, Non-Toxic, Comfortable Pain Distress: None Mental Status: Positive for: Alert and Oriented X 3 - Systems Exam Head: Present: Atraumatic, Normocephalic Pupils: Present: PERRL Extroacular Muscles: Present: EOMI Conjunctiva: Present: Normal Mouth: Present: Moist Mucous Membranes Neck: Present: Normal Range of Motion Respiratory/Chest: Present: Wheezes (expiratory wheezes). No: Respiratory Distress, Accessory Muscle Use Cardiovascular: Present: Regular Rate and Rhythm, Normal S1, S2. No: Murmurs Abdomen: No: Tenderness, Distention, Peritoneal Signs Back: Present: Normal Inspection Upper Extremity: Present: Normal Inspection. No: Cyanosis, Edema Lower Extremity: Present: Normal Inspection. No: Edema Neurological: Present: GCS=15, CN II-XII Intact, Speech Normal Skin: Present: Warm, Dry, Normal Color. No: Rashes Psychiatric: Present: Alert, Oriented x 3, Normal Insight, Normal Concentration Medical Decision Making ED Course and Treatment: 09/25/17 23:56 Impression: 47 year old female presents complaining of trouble breathing triggered by the weather change. PE shows expiratory wheezes. Plan: -- Chest X-ray 2 View -- Duoneb, Solu-Medrol -- Reassess and disposition Prior Visits: Notes and results from previous visits were reviewed. Patient was last seen in the emergency department on 09/15/17 presents complaining of shortness of breath that began tonight. Patient was discharged. Progress Notes: 09/26/17 02:46 CXR Impression: As read by me, stable compared to the Chest X-ray 09/15/17. Patient was discharged on 09/15/17 with a diagnosis of exacerbation asthma. Patient is sleeping and wheeze free for a couple hours because waiting for a test to be done before a Chest X-ray. On re-evaluation, patient feels better and is in no acute distress. I have discussed the results and plan with the patient, who expresses understanding. Patient in agreement with plan to be discharged home. Patient is stable for discharge. Patient was instructed to follow up with physician or return if symptoms worsen or new concerning symptoms arise. - RAD Interpretation Radiology Orders: 09/25/17 23:00 CXR [CHEST TWO VIEWS (PA/LAT)] [RAD] Stat - Medication Orders Current Medication Orders: Discontinued Medications Albuterol/Ipratropium (Duoneb 3 Mg/0.5 Mg (3 Ml) Ud) 3 ml IH STAT STA Stop: 09/25/17 22:57 Last Admin: 09/25/17 23:07 Dose: 3 ml Methylprednisolone (Solu-Medrol) 125 mg IM STAT STA Stop: 09/25/17 22:57 Last Admin: 09/25/17 23:09 Dose: 125 mg IM Administration Charges Document 09/25/17 23:09 LAC (Rec: 09/25/17 23:09 LAC [id number]) Injection Site MAR Injection Site Right Deltoid Charges for Administration # of IM Administrations 1 - Scribe Statement The provider has reviewed the documentation as recorded by the Scribe Kirsten Reddy Provider Scribe Attestation: All medical record entries made by the Scribe were at my direction and personally dictated by me. I have reviewed the chart and agree that the record accurately reflects my personal performance of the history, physical exam, medical decision making, and the department course for this patient. I have also personally directed, reviewed, and agree with the discharge instructions and disposition. Disposition/Present on Arrival - Present on Arrival Any Indicators Present on Arrival: No History of DVT/PE: No History of Uncontrolled Diabetes: No Urinary Catheter: No History of Decub. Ulcer: No History Surgical Site Infection Following: None - Disposition Have Diagnosis and Disposition been Completed?: Yes Diagnosis: Exacerbation of asthma Disposition: HOME/ ROUTINE Disposition Time: 02:40 Patient Plan: Discharge Patient Problems: Current Active Problems Problem Status Onset Asthma attack Acute Condition: GOOD Discharge Instructions (ExitCare): Asthma, Adult (DC) Additional Instructions: Fani - Return to us if any problems. Take your medicines as prescribed. Kade- Dr. Avila Referrals: FAMILY PROVIDER,NO [Primary Care Provider] - Follow up with primary Forms: [employer] (Belarusian)
[2017-09-26 04:01] VITALS: BP 115/75; PULSE 77; RESP 16; TEMP 98.5
[2017-09-26 04:04] VITALS: O2SAT 97
--- NOTE | 2017-09-26 10:01 | RAD ---
HISTORY: cough COMPARISON: 09/09/2017 TECHNIQUE: Chest PA and lateral FINDINGS: LUNGS: No active pulmonary disease. PLEURA: No significant pleural effusion identified. No pneumothorax apparent. CARDIOVASCULAR: Normal. OSSEOUS STRUCTURES: Several old healed right rib fractures. VISUALIZED UPPER ABDOMEN: Normal. OTHER FINDINGS: None. IMPRESSION: No active disease.
== END 2017-09-26 03:30 | disposition home or self-care (01) ==
LOC: ED 21:43
DX: J45.901 Unspecified asthma with (acute) exacerbation (principal); I10 Essential (primary) hypertension; I50.9 Heart failure, unspecified
CPT/HCPCS: 71046; 96372; 99284; J2920

== ENCOUNTER 2017-10-01 17:37 | Inpatient (IN) | payer MEDICAID ==
[2017-10-01] MEDS ORDERED: Albuterol-Ipratrop 3 mg / 0.5 (3 ml) UD ONE (17:44)
[2017-10-01] MEDS ORDERED: Magnesium Sulfate 2 gm/50 ml 2 GM/50 ML BAG IVPB ONE (17:49)
--- NOTE | 2017-10-01 17:54 | ED PDOC ---
Arrival/HPI - General Time Seen by Provider: 10/01/17 17:39 Historian: Patient - History of Present Illness Narrative History of Present Illness (Text): 10/01/17 17:45 A 47 year old female, whose past medical history includes COPD/subdural hematoma /asthma/hepc., psychiatric history including drug abusepresents to the emergency department complaining of COPD exacerbation. Patient admits to drinking alcohol today and reports also severely coughing and wheezing all day. States she has no albuterol pumps at home to treat COPD/asthma. Afterwards patient called for an ambulance and was given 2 doses of Albuterol with SOLU- Medrol 125 mg through IV in the field. She notes she is currently experiencing chest tightness and mentions symptoms feels similar to usual COPD exacerbation. Patient denies any fever, chills, palpitations, or any other complaints. Also, patient notes she still smokes, and denies any recent travel. Time/Duration: Other (all day today) Symptom Onset: Gradual Symptom Course: Unchanged Past Medical History - Provider Review Nursing Documentation Reviewed: Yes - Infectious Disease Hx of Infectious Diseases: None - Tetanus Immunization Tetanus Immunization: Unknown - Cardiac Hx Cardiac Disorders: Yes Hx Congestive Heart Failure: Yes Hx Hypertension: Yes - Pulmonary Hx Respiratory Disorders: Yes Hx Asthma: Yes Hx Chronic Obstructive Pulmonary Disease (COPD): Yes - Neurological Hx Neurological Disorder: No - HEENT Hx HEENT Disorder: No - Renal Hx Renal Disorder: Yes - Endocrine/Metabolic Hx Endocrine Disorders: No - Hematological/Oncological Hx Blood Disorders: Yes Hx Hepatitis C: Yes - Integumentary Hx Dermatological Disorder: No - Musculoskeletal/Rheumatological Hx Musculoskeletal Disorders: No Hx Falls: No - Gastrointestinal Hx Gastrointestinal Disorders: Yes Hx Gastrointestinal Ulcer: Yes Hx Pancreatitis: Yes - Genitourinary/Gynecological Hx Genitourinary Disorders: Yes Hx Sexually Transmitted Diseases: Yes - Psychiatric Hx Psychophysiologic Disorder: Yes Hx Anxiety: Yes Hx Depression: Yes Hx Substance Use: Yes - Surgical History Hx Appendectomy: Yes Other/Comment: tonsillectomy - Anesthesia Hx Anesthesia: Yes Hx Anesthesia Reactions: No Hx Malignant Hyperthermia: No - Suicidal Assessment Feels Threatened In Home Enviroment: No Family/Social History - Physician Review Nursing Documentation Reviewed: Yes Family/Social History: No Known Family HX Smoking Status: Current Some Days Smoker Hx Alcohol Use: Yes Hx Substance Use: Yes Substance used: heroin Hx Substance Use Treatment: Yes Allergies/Home Meds Allergies/Adverse Reactions: Allergies No Known Allergies Allergy (Verified 09/25/17 21:56) Review of Systems - Physician Review All systems were reviewed & negative as marked: Yes - Review of Systems Constitutional: absent: Fatigue, Fevers, Night Sweats Eyes: absent: Vision Changes ENT: absent: Hearing Changes, Sore Throat, Rhinorrhea Respiratory: SOB, Cough, Sputum, Wheezing Cardiovascular: absent: Chest Pain, Palpitations Gastrointestinal: absent: Abdominal Pain, Diarrhea, Nausea, Vomiting Skin: absent: Rash, Pruritis Neurological: absent: Headache, Dizziness Psychiatric: absent: Anxiety, Depression Physical Exam Vital Signs Reviewed: Yes Vital Signs Temp Pulse Resp BP Pulse Ox 10/01/17 19:06 91 H 18 122/78 98 10/01/17 17:52 98.3 F 90 24 91/47 L 93 L 10/01/17 17:40 28 H 96 Temperature: Afebrile Blood Pressure: Hypotensive Pulse: Regular Respiratory Rate: Tachypneic Appearance: Positive for: Ill-Appearing, Unkept, Uncomfortable Pain Distress: None Mental Status: Positive for: Alert and Oriented X 3 - Systems Exam Head: Present: Atraumatic, Normocephalic Pupils: Present: PERRL Extroacular Muscles: Present: EOMI Conjunctiva: Present: Normal Ears: Present: NORMAL TM, Normal Canal. No: Erythema Mouth: Present: Moist Mucous Membranes Pharnyx: No: ERYTHEMA, EXUDATE, TONSILS ENLARGED Nose (External): Present: Atraumatic. No: Abrasion, Contusion, Laceration Nose (Internal): Present: Normal Inspection, No Active Bleeding. No: Rhinorrhea , Septal Hematoma, Epistaxis Neck: Present: Normal Range of Motion. No: MIDLINE TENDERNESS, Paraspinal Tenderness, Lymphadenopathy Respiratory/Chest: Present: Respiratory Distress, Accessory Muscle Use, Wheezes (bilaterally), Decreased Breath Sounds (bilaterally), Rhonchi (scattered), Tachypneic. No: Retracting, Tender to Palpation Cardiovascular: Present: Regular Rate and Rhythm, Normal S1, S2, Other (no pedal edema). No: Murmurs Abdomen: No: Tenderness, Distention, Peritoneal Signs Back: Present: Normal Inspection Upper Extremity: Present: Normal Inspection. No: Cyanosis, Edema Lower Extremity: Present: Normal Inspection. No: Edema Neurological: Present: GCS=15, CN II-XII Intact, Speech Normal Skin: Present: Warm, Dry, Normal Color. No: Rashes Psychiatric: Present: Alert, Oriented x 3, Normal Insight, Normal Concentration Medical Decision Making ED Course and Treatment: 10/01/17 17:50 Impression: 47 yea old female with shortness of breath, cough, wheezing, and chest tightness. Physical exam shows decreased breath sounds bilaterally and scattered rhonchi/wheezing; no other acute findings. Plan: -- EKG -- Chest X-ray -- Arterial Blood Gas -- Duoneb (3 doses) -- Magnesium Sulfate 2g -- IV Fluids -- Labs -- POC Urine Test -- Nasal Cannula O2 -- BiPAP procedure -- Reassess and disposition Prior Visits: Notes and results from previous visits were reviewed. Patient was last seen in the emergency department on 09/25/2017 for shortness of breath. Patient was discharged home with diagnosis of asthma exacerbation. 10/01/17 18:27 -VBG lactic acid shock panel added as wbc is 20 with blood culture, IV rocephine /azithromycin ordered as well. 10/01/17 19:01 -Lactiac acid 3.1, wbc 20/tachpnea and tachycardia, code sepsis activated. 10/01/17 19:49 - test is negative -EKG: NSR @ 86 BPM, no ST elevation or depression, no T wave inversion -Chest xray show no active disease and no interval change -Blood gas AB.41, CO2 43, HCO3 27.3 -Labs show no acute findings except wbc 20 (blood culture and IV rocephine/ azithromycin ordered), K+ 3.2 (potassium chloride 40meq po ordered) -Urinalysis ordered and pending result -UDS ordered and pending result -Pt. wheezing and rhonchi decreasing but not significantly better, will need to be admitted for sepsis treatment with copd continuous nebulizer treatment. -paging hospitalist for admission. 10/01/17 20:45 -I spoke to the admitting team, resident, Dr. Nolasco, discussed about the case and radiology result, will notify the admitting physician. 10/01/17 20:39 -I paged the admitting physician Dr. Cardoso 3 times, no one call back, notify the resident to tell Dr. Cardoso to call me back when he see the patient. Discussed with Dr. Cortes and he will put in the admission order. Case endorsed to the resident and will discussed with Dr. Cardoso - Critical Care Critical Care Minutes: 30 minutes Critical Care Time: Unstable Narrative Critical Care (Text): 10/01/17 19:11 duoneb x 3/IV solumedrol, Magnesium Sulfate 2gm IV, oxygen, continuous nebulizer. - Lab Interpretations Microbiology Results: Microbiology Results 10/01/17 18:45 Blood-Venous Blood Culture - Preliminary NO GROWTH AFTER 3 DAYS 10/01/17 18:15 Blood-Venous Blood Culture - Preliminary NO GROWTH AFTER 3 DAYS Lab Results: 10/01/17 17:58 10/01/17 17:58 Lab Results 10/01/17 18:42: pO2 156 H, VBG pH 7.41, VBG pCO2 42.0, VBG HCO3 26.6, VBG Total CO2 27.9, VBG O2 Sat (Calc) 100.2 H, VBG Base Excess 1.7, VBG Potassium 4.0, Glucose 124 H, Lactate 3.1 H, FiO2 21.0, Sodium 141.0, Chloride 107.0, Venous Blood Potassium 4.0 10/01/17 18:34: Beta HCG, Quant < 2.39 10/01/17 18:14: pCO2 43, pO2 141.0 H, HCO3 27.3, ABG pH 7.41, ABG Total CO2 28.6 H, ABG O2 Saturation 100.3 H, ABG O2 Content 18.8, ABG Base Excess 2.2, ABG Hemoglobin 92.8 H, ABG Carboxyhemoglobin 6.4 H, POC ABG HHb (Measured) -0.3 L, ABG Methemoglobin 1.1, ABG O2 Capacity 18.7, Hgb O2 Saturation 92.8 L 10/01/17 17:58: Alcohol, Quantitative 136 H 10/01/17 17:58: Salicylates < 1 L, Acetaminophen < 10.0 L 10/01/17 17:58: WBC 21.2 H D, RBC 4.93, Hgb 15.0 D, Hct 44.5, MCV 90.3, MCH 30.4, MCHC 33.7, RDW 18.1 H, Plt Count 385, MPV 10.1, Gran % 63.8, Lymph % (Auto ) 26.7, [place] % (Auto) 7.7 H, Eos % (Auto) 1.6, Baso % (Auto) 0.2, Gran # 13.48 H , Lymph # (Auto) 5.7 H, [place] # (Auto) 1.6 H, Eos # (Auto) 0.3, Baso # (Auto) 0.05 10/01/17 17:58: Sodium 143, Potassium 3.2 L, Chloride 105, Carbon Dioxide 23, Anion Gap 18, BUN 8, Creatinine 0.4 L, Est GFR ( Amer) > 60, Est GFR (Non -Af Amer) > 60, Random Glucose 118 H, Calcium 8.4, Magnesium 1.9, Total Bilirubin 0.4, AST 69 H, ALT 78 H, Alkaline Phosphatase 86, NT-Pro-B Natriuret Pep 26.7, Total Protein 6.9, Albumin 3.9, Globulin 3.0, Albumin/Globulin Ratio 1.3 - RAD Interpretation Radiology Orders: 10/01/17 17:49 CHEST PORTABLE [RAD] Stat no active disease Haulage Boss: Radiologist - EKG Interpretation EKG Interpretation (Text): 10/01/17 19:11 -EKG: NSR @ 86 BPM, no ST elevation or depression, no T wave inversion Interpreted by ED Physician: Yes Type: 12 lead EKG Comparison: Com.w/previous EKG - Medication Orders Current Medication Orders: Discontinued Medications Albuterol Sulfate (Albuterol 0.083% Inhal Yue (2.5 Mg/3 Ml) Ud) 2.5 mg INH STAT STA Stop: 10/01/17 20:26 Last Admin: 10/01/17 20:30 Dose: 2.5 mg Albuterol/Ipratropium (Duoneb 3 Mg/0.5 Mg (3 Ml) Ud) 3 ml IH Q15M JACK Stop: 10/01/17 18:31 Last Admin: 10/01/17 18:30 Dose: 3 ml Albuterol/Ipratropium (Duoneb 3 Mg/0.5 Mg (3 Ml) Ud) 3 ml IH [id number] PRN PRN Reason: Shortness of Breath Last Admin: 10/04/17 11:18 Dose: 3 ml Albuterol/Ipratropium (Duoneb 3 Mg/0.5 Mg (3 Ml) Ud) 3 ml IH [id number] [facility] Last Admin: 10/04/17 13:27 Dose: Not Given Non-Admin Reason: Patient Refused Cefpodoxime Proxetil (Vantin) 200 mg PO Q12 [facility] Folic Acid (Folic Acid) 1 mg PO DAILY [facility] Last Admin: 10/04/17 09:55 Dose: 1 mg Heparin Sodium (Porcine) (Heparin) 5,000 units SC Q12 JACK PRN Reason: Protocol Last Admin: 10/03/17 21:09 Dose: 5,000 units Subcutaneous Administrations Document 10/03/17 21:09 ST (Rec: 10/03/17 21:09 ST [id number]) Injection Site MAR Injection Site Right Abdomen Charges for Administration # of Subcutaneous Administrations 1 Heparin Sodium (Porcine) (Heparin) 5,000 units SC Q8 JACK PRN Reason: Protocol Last Admin: 10/04/17 14:48 Dose: Magnesium Sulfate (Magnesium Sulfate 2 Gm/50 Ml Water) 2 gm in 50 mls @ 50 mls/ hr IVPB ONCE ONE Stop: 10/01/17 18:48 Last Admin: 10/01/17 18:00 Dose: 50 mls/hr eMAR Start Stop Document 10/01/17 18:00 EWO (Rec: 10/01/17 18:55 EWO [id number]) Intravenous Solution Start Date 10/01/17 Start Time 18:00 End Date 10/01/17 End time 19:00 Total Infusion Time 60 Sodium Chloride (Sodium Chloride 0.9%) 1,000 mls @ 100 mls/hr IV .Q10H [facility] Last Admin: 10/01/17 18:00 Dose: 100 mls/hr eMAR Start Stop Document 10/01/17 18:00 EWO (Rec: 10/01/17 18:56 EWO [id number]) Intravenous Solution Start Date 10/01/17 Start Time 18:00 Ceftriaxone Sodium (Rocephin 1 Gram Ivpb) 1 gm in 100 mls @ 200 mls/hr IVPB STAT STA PRN Reason: Protocol Stop: 10/01/17 18:40 Last Admin: 10/01/17 18:57 Dose: 200 mls/hr eMAR Start Stop Document 10/01/17 18:57 EWO (Rec: 10/01/17 18:57 EWO [id number]) Intravenous Solution Start Date 10/01/17 Start Time 18:57 End Date 10/01/17 End time 19:27 Total Infusion Time 30 Azithromycin (Zithromax 500mg In Ns) 500 mg in 250 mls @ 167 mls/hr IVPB STAT STA PRN Reason: Protocol Stop: 10/01/17 19:40 Last Admin: 10/01/17 19:43 Dose: 167 mls/hr eMAR Start Stop Document 10/01/17 19:43 HUGH (Rec: 10/01/17 19:43 HUGH [id number]) Intravenous Solution Start Date 10/01/17 Start Time 19:43 End Date 10/01/17 End time 20:43 Total Infusion Time 60 Sodium Chloride (Sodium Chloride 0.9%) 1,000 mls @ 1,000 mls/hr IV .Q1H JACK Last Admin: 10/01/17 20:30 Dose: 1,000 mls/hr eMAR Start Stop Document 10/01/17 20:30 HUGH (Rec: 10/01/17 21:12 HUGH [id number]) Intravenous Solution Start Date 10/01/17 Start Time 20:30 Ceftriaxone Sodium (Rocephin 1 Gram Ivpb) 1 gm in 100 mls @ 100 mls/hr IVPB 1800 JACK PRN Reason: Protocol Last Admin: 10/03/17 17:42 Dose: 100 mls/hr eMAR Start Stop Document 10/03/17 17:42 JFG (Rec: 10/03/17 17:43 JF [id number]) Intravenous Solution Start Date 10/03/17 Start Time 17:43 End Date 10/03/17 End time 18:43 Total Infusion Time 60 Azithromycin (Zithromax 500mg In Ns) 500 mg in 250 mls @ 167 mls/hr IVPB 1900 JACK PRN Reason: Protocol Last Admin: 10/03/17 18:33 Dose: 167 mls/hr eMAR Start Stop Document 10/03/17 18:33 JFG (Rec: 10/03/17 18:34 JFG [id number]) Intravenous Solution Start Date 10/03/17 Start Time 18:33 End Date 10/03/17 End time 20:03 Total Infusion Time 90 Lorazepam (Ativan) 2 mg IVP Q6 PRN; Protocol PRN Reason: Symptoms of alcohol withdrawl Last Admin: 10/04/17 05:31 Dose: 2 mg IVP Administration Document 10/04/17 05:31 ST (Rec: 10/04/17 05:31 ST [id number]) Charges for Administration # of IVP Administrations 1 Behavioural Document 10/04/17 05:31 ST (Rec: 10/04/17 05:31 ST [id number]) Behavior Behavior for Medication: Anxiety Behavior Comment etoh wd Re-Assess: Reassess Psych Meds Document 10/04/17 06:01 ST (Rec: 10/04/17 07:34 [id number] Reassess Psych Med Effective Lorazepam (Ativan) 0.5 mg IVP ONCE ONE PRN Reason: Protocol Stop: 10/03/17 12:25 Last Admin: 10/03/17 12:34 Dose: 0.5 mg IVP Administration Document 10/03/17 12:34 [facility] (Rec: 10/03/17 12:34 [id number]) Charges for Administration # of IVP Administrations 1 Behavioural Document 10/03/17 12:34 JF (Rec: 10/03/17 12:34 [id number]) Maintenance Maintenance Dose No Nonmedicinal Nonmedicinal Interventions Therapeutic Communication Activity Give food/fluids Behavior Behavior for Medication: Anxiety Continuous pacing/restlessness Re-Assess: Reassess Psych Meds Document 10/03/17 13:04 JF (Rec: 10/03/17 13:59 [id number]) Reassess Psych Med Effective Methylprednisolone (Solu-Medrol) 40 mg IVP DAILY [facility] Last Admin: 10/03/17 09:22 Dose: 40 mg IVP Administration Document 10/03/17 09:22 JF (Rec: 10/03/17 09:22 [id number]) Charges for Administration # of IVP Administrations 1 Nicotine (Nicoderm Cq) 1 patch TD DAILY [facility] Last Admin: 10/04/17 09:52 Dose: 1 patch MAR Transdermal Patch Site Document 10/04/17 09:52 AJ (Rec: 10/04/17 09:53 AJ [facility] [id number]) Transdermal Patch Site Transdermal Patch Site Left Shoulder Pantoprazole Sodium (Protonix Inj) 40 mg IVP DAILY [facility] Last Admin: 10/02/17 09:55 Dose: 40 mg IVP Administration Document 10/02/17 09:55 ASH (Rec: 10/02/17 09:55 ASH [id number]) Charges for Administration # of IVP Administrations 1 Pantoprazole Sodium (Protonix Ec Tab) 40 mg PO ACB [facility] Last Admin: 10/03/17 08:07 Dose: 40 mg Potassium Chloride (K-Dur 20 Meq Er Tab) 40 meq PO Q2H JACK Stop: 10/01/17 23:01 Last Admin: 10/01/17 22:02 Dose: 40 meq Prednisone (Prednisone Tab) 30 mg PO DAILY [facility] Last Admin: 10/04/17 09:55 Dose: 30 mg Thiamine HCl (Vitamin B1 Tab) 100 mg PO DAILY [facility] Last Admin: 10/04/17 09:55 Dose: 100 mg - PA / [employer] / Resident Statement MD/DO has reviewed & agrees with the documentation as recorded. MD/DO has examined the patient and agrees with the treatment plan. - Scribe Statement The provider has reviewed the documentation as recorded by the Jc Hood Provider Scribe Attestation: All medical record entries made by the Jc were at my direction and personally dictated by me. I have reviewed the chart and agree that the record accurately reflects my personal performance of the history, physical exam, medical decision making, and the department course for this patient. I have also personally directed, reviewed, and agree with the discharge instructions and disposition. Disposition/Present on Arrival - Present on Arrival Any Indicators Present on Arrival: No History of DVT/PE: No History of Uncontrolled Diabetes: No Urinary Catheter: No History of Decub. Ulcer: No History Surgical Site Infection Following: None - Disposition Have Diagnosis and Disposition been Completed?: Yes Diagnosis: Sepsis, COPD exacerbation, Hypoxic, Hypokalemia Disposition: HOSPITALIZED Disposition Time: 19:50 Patient Plan: Admission, Telemetry Condition: STABLE
[2017-10-01] MEDS: Albuterol-Ipratrop 3 mg / 0.5 (3 ml) UD IH SCH ×3 (18:00→18:30)
[2017-10-01] MEDS ORDERED: Sodium Chloride 0.9% 1,000 ML IV SCH (18:00)
[2017-10-01 18:02] LABS: BASO # 0.05 K/mm3 (0.0-2.0); BASO % 0.2 % (0.0-3.0); EOS # 0.3 (0.0-0.7); EOS % 1.6 % (1.5-5.0); GRAN # 13.48 (1.4-6.5); GRAN % 63.8 % (50.0-68.0); LYMPH # 5.7 (1.2-3.4); LYMPH % 26.7 % (22.0-35.0); MEAN CELL VOLUME 90.3 fl (80.0-105.0); MEAN CORPUSCULAR HEMOGLOBIN 30.4 pg (25.0-35.0); MEAN CORPUSCULAR HGB CONC 33.7 g/dl (31.0-37.0); MEAN PLATELET VOLUME 10.1 fl (7.0-11.0); MONO # 1.6 (0.1-0.6); MONO % 7.7 % (1.0-6.0); RBC 4.93 10^6/uL (3.5-6.1); RED CELL DISTRIBUTION WIDTH 18.1 % (11.5-14.5); WHITE BLOOD COUNT 21.2 10^3/ul (4.5-11.0)
[2017-10-01] MEDS ORDERED: Azithromycin 500MG/NS 250ml 500 MG/250 ML BAG IVPB STA (18:11)
[2017-10-01] MEDS ORDERED: cefTRIAXone 1 gm 1 GM/100 ML BAG IVPB STA (18:11)
[2017-10-01 19:00] LABS: VENOUS BLOOD GAS BASE EXCESS 1.7 mmol/L (0.0-2.0); VENOUS BLOOD GAS PO2 156 mm/Hg (30-55); VENOUS BLOOD PH 7.41 (7.32-7.43)
[2017-10-01 19:15] LABS: B-TYPE NATRIURETIC PEPTIDE 26.7 pg/mL (0-450)
[2017-10-01 19:19] LABS: ALB/GLOB RATIO 1.3 (1.1-1.8); ALBUMIN 3.9 g/dL (3.0-4.8); ALT/SGPT 78 U/L (7-56); AST/SGOT 69 U/L (14-36); BLOOD UREA NITROGEN 8 mg/dL (7-21); CALCIUM 8.4 mg/dL (8.4-10.5); GFR AFRICAN-AMERICAN > 60; GFR NON-AFRICAN AMERICAN > 60
[2017-10-01] MEDS: Sodium Chloride 0.9% 1,000 ML IV SCH ×2 (19:30→20:30)
[2017-10-01 19:35] LABS: ARTERIAL BLOOD GAS PH 7.41 (7.35-7.45)
[2017-10-01 19:36] LABS: ARTERIAL BLOOD GAS HCO3 27.3 mmol/L (21-28); ARTERIAL BLOOD GAS HEMOGLOBIN 92.8 g/dL (11.7-17.4); ARTERIAL BLOOD GAS PCO2 43 mm/Hg (35-45)
[2017-10-01 19:37] LABS: ARTERIAL BLOOD GAS O2 CAPACITY 18.7 mL/dL (16-24); ARTERIAL BLOOD GAS O2 CONTENT 18.8 ML/dL (15-23); ARTERIAL BLOOD GAS O2 SAT 100.3 % (95-98); ARTERIAL BLOOD GAS TCO2 28.6 mmol.L (22-28)
[2017-10-01 19:54] LABS: ACETAMINOPHEN < 10.0 ug/ml (10.0-20.0); SALICYLATE < 1 mg/dL (2.0-20.0)
[2017-10-01] MEDS ORDERED: Albuterol 0.083% Inhal Sol (2.5 mg/3 mL) UD INH STA (20:25)
--- NOTE | 2017-10-01 20:44 | CP.PCM.HP ---
History of Present Illness - History of Present Illness History of Present Illness: CC: shortness of breath 47 year old female with a past medical history significant for COPD, asthma, alcohol abuse, heroin abuse (snort and inject), and hepatitis C with cirrhosis, presents for wheezing and shortness of breath this morning. The patient states that she woke up this morning with some difficulty breathing. Patient states using her albuterol pump with no improvement in symptoms. Patient states that she had two cigarettes this morning. She also reports having a cough with yellow phlegm production for the past day. She denies any chest pain, fevers, chills, nausea, vomiting, changes in vision, syncopal episodes, or any other complaints. Patient denies sick contacts or recent travel 12 point ROS obtained and negative, except as per HPI. PMD: none PMH: COPD, asthma, alcohol/heroin abuse, and hepatitis C with liver cirrhosis PSH: Appendectomy, tonsillectomy Family History: Father-DM2 Social History: Smokes 1/2 pk/day for >30 years, drinks 5-6 cans of four frances daily (14% alcohol x 24 ounces), reports prior IVDU, currently snorts heroin 2- 10 bags weekly; homeless Last drink was yesterday Allergies: NKDA Home Medications: As per MAR Present on Admission - Present on Admission Any Indicators Present on Admission: No Review of Systems - Constitutional Constitutional: absent: Daytime Sleepiness, Headache - EENT Eyes: absent: Blurred Vision, Discharge, Requires Corrective Lenses Ears: absent: Ear Discharge, Dizziness Nose/Mouth/Throat: absent: Nasal Congestion, Nose Pain, Bleeding Gums, Dysphagia - Cardiovascular Cardiovascular: absent: Chest Pain, Claudication, Irregular Heart Rhythm, Palpitations, Pedal Edema - Respiratory Respiratory: Cough, Wheezing, Chest Congestion. absent: Dyspnea, Dyspnea on Exertion, Snoring, Stridor, Pain on Inspiration, Excessive Mucous Production, Change in Mucous Color - Gastrointestinal Gastrointestinal: absent: Belching, Change in Stool Character, Dyspepsia, Loose Stools - Musculoskeletal Musculoskeletal: absent: Arthralgias, Limited Range of Motion, Myalgias, Tingling - Integumentary Integumentary: absent: Lesions, Photosensitivity, Swelling - Neurological Neurological: absent: Abnormal Hearing, Burning Sensations, Numbness, Radicular Pain, Vertigo, Weakness - Psychiatric Psychiatric: absent: Anxiety, Change in Appetite, Difficulty Concentrating, Hopelessness, Panic Attacks, Tactile Hallucinations - Endocrine Endocrine: absent: Change in Body Appearance, Deepening of Voice, Polydipsia, Polyphagia, Polyuria Past Patient History - Infectious Disease Hx of Infectious Diseases: None - Tetanus Immunizations Tetanus Immunization: Unknown - Past Medical History & Family History Past Medical History?: Yes - Past Social History Smoking Status: Current Some Days Smoker - CARDIAC Hx Cardiac Disorders: Yes Hx Congestive Heart Failure: Yes Hx Hypertension: Yes - PULMONARY Hx Respiratory Disorders: Yes Hx Asthma: Yes Hx Chronic Obstructive Pulmonary Disease (COPD): Yes - NEUROLOGICAL Hx Neurological Disorder: No - HEENT Hx HEENT Problems: No - RENAL Hx Chronic Kidney Disease: Yes - ENDOCRINE/METABOLIC Hx Endocrine Disorders: No - HEMATOLOGICAL/ONCOLOGICAL Hx Blood Disorders: Yes Hx Hepatitis C: Yes - INTEGUMENTARY Hx Dermatological Problems: No - MUSCULOSKELETAL/RHEUMATOLOGICAL Hx Musculoskeletal Disorders: No Hx Falls: No - GASTROINTESTINAL Hx Gastrointestinal Disorders: Yes Hx Pancreatitis: Yes - GENITOURINARY/GYNECOLOGICAL Hx Genitourinary Disorders: Yes Hx Sexually Transmitted Disorders: Yes - PSYCHIATRIC Hx Psychophysiologic Disorder: Yes Hx Anxiety: Yes Hx Depression: Yes Hx Substance Use: Yes - SURGICAL HISTORY Hx Appendectomy: Yes Other/Comment: tonsillectomy - ANESTHESIA Hx Anesthesia: Yes Hx Anesthesia Reactions: No Hx Malignant Hyperthermia: No Meds Allergies/Adverse Reactions: Allergies Allergy/AdvReac Type Severity Reaction Status Date / Time No Known Allergies Allergy Verified 09/25/17 21:56 Physical Exam - Head Exam Head Exam: ATRAUMATIC, NORMAL INSPECTION, NORMOCEPHALIC - Eye Exam Eye Exam: EOMI, Normal appearance, PERRL Pupil Exam: NORMAL ACCOMODATION, PERRL - ENT Exam ENT Exam: Mucous Membranes Moist, Normal Oropharynx - Respiratory Exam Respiratory Exam: Rhonchi, Wheezes, NORMAL BREATHING PATTERN - Cardiovascular Exam Cardiovascular Exam: REGULAR RHYTHM, +S1, +S2 - GI/Abdominal Exam GI & Abdominal Exam: Normal Bowel Sounds, Soft. absent: Organomegaly, Tenderness - Extremities Exam Extremities exam: Positive for: normal inspection. Negative for: full ROM, pedal edema - Back Exam Back exam: NORMAL INSPECTION. absent: CVA tenderness (R), paraspinal tenderness - Neurological Exam Neurological exam: Alert, CN II-XII Intact, Oriented x3 - Psychiatric Exam Psychiatric exam: Normal Affect, Normal Mood - Skin Skin Exam: Dry Results - Vital Signs Recent Vital Signs: Last Vital Signs Temp 98.3 F 10/01/17 17:52 Pulse 91 H 10/01/17 19:06 Resp 18 10/01/17 19:06 BP 122/78 10/01/17 19:06 Pulse Ox 98 10/01/17 19:06 - Labs Result Diagrams: 10/01/17 17:58 10/01/17 17:58 Labs: Laboratory Results - last 24 hr 10/01/17 10/01/17 10/01/17 17:58 17:58 17:58 WBC 21.2 H D RBC 4.93 Hgb 15.0 D Hct 44.5 MCV 90.3 MCH 30.4 MCHC 33.7 RDW 18.1 H Plt Count 385 MPV 10.1 Gran % 63.8 Lymph % (Auto) 26.7 [place] % (Auto) 7.7 H Eos % (Auto) 1.6 Baso % (Auto) 0.2 Gran # 13.48 H Lymph # (Auto) 5.7 H [place] # (Auto) 1.6 H Eos # (Auto) 0.3 Baso # (Auto) 0.05 pCO2 pO2 HCO3 ABG pH ABG Total CO2 ABG O2 Saturation ABG O2 Content ABG Base Excess ABG Hemoglobin ABG Carboxyhemoglobin POC ABG HHb (Measured) ABG Methemoglobin ABG O2 Capacity VBG pH VBG pCO2 VBG HCO3 VBG Total CO2 VBG O2 Sat (Calc) VBG Base Excess VBG Potassium Hgb O2 Saturation Glucose Lactate FiO2 Sodium 143 Potassium 3.2 L Chloride 105 Carbon Dioxide 23 Anion Gap 18 BUN 8 Creatinine 0.4 L Est GFR ( Amer) > 60 Est GFR (Non-Af Amer) > 60 Random Glucose 118 H Calcium 8.4 Magnesium 1.9 Total Bilirubin 0.4 AST 69 H ALT 78 H Alkaline Phosphatase 86 NT-Pro-B Natriuret Pep 26.7 Total Protein 6.9 Albumin 3.9 Globulin 3.0 Albumin/Globulin Ratio 1.3 Beta HCG, Quant Venous Blood Potassium Salicylates < 1 L Acetaminophen < 10.0 L Alcohol, Quantitative 10/01/17 10/01/17 10/01/17 17:58 18:14 18:34 WBC RBC Hgb Hct MCV MCH MCHC RDW Plt Count MPV Gran % Lymph % (Auto) [place] % (Auto) Eos % (Auto) Baso % (Auto) Gran # Lymph # (Auto) [place] # (Auto) Eos # (Auto) Baso # (Auto) pCO2 43 pO2 141.0 H HCO3 27.3 ABG pH 7.41 ABG Total CO2 28.6 H ABG O2 Saturation 100.3 H ABG O2 Content 18.8 ABG Base Excess 2.2 ABG Hemoglobin 92.8 H ABG Carboxyhemoglobin 6.4 H POC ABG HHb (Measured) -0.3 L ABG Methemoglobin 1.1 ABG O2 Capacity 18.7 VBG pH VBG pCO2 VBG HCO3 VBG Total CO2 VBG O2 Sat (Calc) VBG Base Excess VBG Potassium Hgb O2 Saturation 92.8 L Glucose Lactate FiO2 Sodium Potassium Chloride Carbon Dioxide Anion Gap BUN Creatinine Est GFR ( Amer) Est GFR (Non-Af Amer) Random Glucose Calcium Magnesium Total Bilirubin AST ALT Alkaline Phosphatase NT-Pro-B Natriuret Pep Total Protein Albumin Globulin Albumin/Globulin Ratio Beta HCG, Quant < 2.39 Venous Blood Potassium Salicylates Acetaminophen Alcohol, Quantitative 136 H 10/01/17 18:42 WBC RBC Hgb Hct MCV MCH MCHC RDW Plt Count MPV Gran % Lymph % (Auto) [place] % (Auto) Eos % (Auto) Baso % (Auto) Gran # Lymph # (Auto) [place] # (Auto) Eos # (Auto) Baso # (Auto) pCO2 pO2 156 H HCO3 ABG pH ABG Total CO2 ABG O2 Saturation ABG O2 Content ABG Base Excess ABG Hemoglobin ABG Carboxyhemoglobin POC ABG HHb (Measured) ABG Methemoglobin ABG O2 Capacity VBG pH 7.41 VBG pCO2 42.0 VBG HCO3 26.6 VBG Total CO2 27.9 VBG O2 Sat (Calc) 100.2 H VBG Base Excess 1.7 VBG Potassium 4.0 Hgb O2 Saturation Glucose 124 H Lactate 3.1 H FiO2 21.0 Sodium 141.0 Potassium Chloride 107.0 Carbon Dioxide Anion Gap BUN Creatinine Est GFR ( Amer) Est GFR (Non-Af Amer) Random Glucose Calcium Magnesium Total Bilirubin AST ALT Alkaline Phosphatase NT-Pro-B Natriuret Pep Total Protein Albumin Globulin Albumin/Globulin Ratio Beta HCG, Quant Venous Blood Potassium 4.0 Salicylates Acetaminophen Alcohol, Quantitative Assessment & Plan - Assessment and Plan (Free Text) Assessment: 47 year old female with past medical history of COPD, asthma, alcohol and heroin abuse, hepatitis C with cirrhosis, and homelessness who presents to ED with shortness of breath. Patient to be admitted for COPD exacerbation. Plan: 1. Sepsis 2/2 COPD exacerbation -Lactate 3.1 upon admission. -Duonebs -Iv Solumedrol -Blood cultures. Will f/u with results. -Sputum cultures. Will f/u with results -Urine culutres. Will f/u with results -Procal ordered .Will f/u with results. -Patient reports smoking this A.M. -IV fluids NS @100cc/hr 2. Hypokalemia -Repleted. Will follow up with serial cmp's 3. Alcohol abuse -Blood alcohol 136 upon admission. -Patient reports last drink this A.M. -Ativan PRN for signs of withdrawal. Will re-evaluate in the A.M. 4.history of Hepatitis C -Non-treated in the past. PPX -Protonix -Heparin
[2017-10-01] MEDS: Potassium Chloride 20 mEq ER Tab PO SCH ×2 (21:04→22:02)
[2017-10-01 21:42] VITALS: BMI 24.7
[2017-10-01 21:50] LABS: VENOUS BLOOD GAS BASE EXCESS 1.1 mmol/L (0.0-2.0); VENOUS BLOOD GAS PO2 63 mm/Hg (30-55); VENOUS BLOOD PH 7.44 (7.32-7.43)
--- NOTE | 2017-10-02 01:17 | PCM.SEPTIC ---
Sepsis Progress Note - Reassessment Type Date of Evaluation: 10/02/17 Reassessment Type: Non-invasive reassessment - Non Invasive Reassessment Were the most recent vital sign reviewed: Yes Vital Sign (Latest): Temp Pulse Resp BP Pulse Ox 98.7 F 92 H 20 155/71 H 96 10/02/17 00:01 10/02/17 00:01 10/02/17 00:01 10/02/17 00:01 10/02/17 00:01 Cardiovascular: Yes: Regular Rate, Rhythm. No: Chest Non Tender, Tachycardia Respiratory: Yes: Normal Breath Sounds. No: Decreased Breath Sounds Capillary Refill: Normal (Less than 2 sec) Skin: Normal Color <Joe Mathur - Last Filed: 10/02/17 01:16> - Non Invasive Reassessment Vital Sign (Latest): Temp Pulse Resp BP Pulse Ox 98.7 F 89 20 155/71 H 96 10/02/17 00:01 10/02/17 02:00 10/02/17 00:01 10/02/17 00:01 10/02/17 00:01 <Ingrid Garces - Last Filed: 10/02/17 03:49> Attending/Attestation - Attestation I have personally seen and examined this patient.: Yes I have fully participated in the care of the patient.: Yes I have reviewed all pertinent clinical information, including history, physical exam and plan: Yes <Ingrid Garces - Last Filed: 10/02/17 03:49>
[2017-10-02 06:20] LABS: BASO # 0.01 K/mm3 (0.0-2.0); BASO % 0.1 % (0.0-3.0); GRAN # 11.92 (1.4-6.5); GRAN % 89.4 % (50.0-68.0); HEMOGLOBIN 13.8 g/dL (12.0-16.0); LYMPH # 1.1 (1.2-3.4); LYMPH % 8.3 % (22.0-35.0); MEAN CELL VOLUME 90.3 fl (80.0-105.0); MEAN CORPUSCULAR HEMOGLOBIN 29.8 pg (25.0-35.0); MEAN PLATELET VOLUME 10.4 fl (7.0-11.0); MONO # 0.3 (0.1-0.6); MONO % 2.2 % (1.0-6.0); RBC 4.63 10^6/uL (3.5-6.1); RED CELL DISTRIBUTION WIDTH 18.1 % (11.5-14.5); WHITE BLOOD COUNT 13.3 10^3/ul (4.5-11.0)
[2017-10-02 07:11] LABS: ALB/GLOB RATIO 1.2 (1.1-1.8); ALBUMIN 3.4 g/dL (3.0-4.8); ALT/SGPT 64 U/L (7-56); AST/SGOT 40 U/L (14-36); BLOOD UREA NITROGEN 7 mg/dL (7-21); CALCIUM 8.9 mg/dL (8.4-10.5); GFR AFRICAN-AMERICAN > 60; GFR NON-AFRICAN AMERICAN > 60
--- NOTE | 2017-10-02 09:10 | RAD ---
HISTORY: wheezing/copd COMPARISON: 09/26/2017 FINDINGS: LUNGS: No active pulmonary disease. PLEURA: No significant pleural effusion identified, no pneumothorax apparent. CARDIOVASCULAR: Normal. OSSEOUS STRUCTURES: No significant abnormalities. VISUALIZED UPPER ABDOMEN: Normal. OTHER FINDINGS: None. IMPRESSION: No active disease.
[2017-10-02] MEDS: MethylPREDNISolone 40 mg Vial IVP SCH (09:55)
[2017-10-02] MEDS ORDERED: Albuterol-Ipratrop 3 mg / 0.5 (3 ml) UD IH PRN (11:02)
--- NOTE | 2017-10-02 13:25 | CP.PCM.PN ---
<Mehdi Villagomez - Last Filed: 10/02/17 13:21> Subjective - Date & Time of Evaluation Date of Evaluation: 10/02/17 Time of Evaluation: 13:22 - Subjective Subjective: Patient seen and evaluated this AM. Patient continues to complain of shortness of breath and some productive cough. Patient denies chest pain, abdominal pain, headache, nausea, vomiting. Objective - Vital Signs/Intake and Output Vital Signs (last 24 hours): Temp Pulse Resp BP Pulse Ox 98.1 F 92 H 20 134/93 H 97 10/02/17 06:00 10/02/17 06:00 10/02/17 06:00 10/02/17 06:00 10/02/17 06:00 Intake and Output: 10/02/17 10/02/17 06:59 18:59 Intake Total 120 Balance 120 - Medications Medications: Current Medications Albuterol/Ipratropium (Duoneb 3 Mg/0.5 Mg (3 Ml) Ud) 3 ml IH [id number] PRN PRN Reason: Shortness of Breath Albuterol/Ipratropium (Duoneb 3 Mg/0.5 Mg (3 Ml) Ud) 3 ml IH [id number] [facility] Folic Acid (Folic Acid) 1 mg PO DAILY [facility] Last Admin: 10/02/17 09:56 Dose: 1 mg Heparin Sodium (Porcine) (Heparin) 5,000 units SC Q12 JACK PRN Reason: Protocol Last Admin: 10/02/17 09:55 Dose: 5,000 units Ceftriaxone Sodium (Rocephin 1 Gram Ivpb) 1 gm in 100 mls @ 100 mls/hr IVPB 1800 JACK PRN Reason: Protocol Azithromycin (Zithromax 500mg In Ns) 500 mg in 250 mls @ 167 mls/hr IVPB 1900 JACK PRN Reason: Protocol Lorazepam (Ativan) 2 mg IVP Q6 PRN; Protocol PRN Reason: Symptoms of alcohol withdrawl Last Admin: 10/02/17 07:40 Dose: 2 mg Methylprednisolone (Solu-Medrol) 40 mg IVP DAILY [facility] Last Admin: 10/02/17 09:55 Dose: 40 mg Nicotine (Nicoderm Cq) 1 patch TD DAILY [facility] Last Admin: 10/02/17 11:47 Dose: 1 patch Pantoprazole Sodium (Protonix Ec Tab) 40 mg PO ACB JACK Thiamine HCl (Vitamin B1 Tab) 100 mg PO DAILY JACK Last Admin: 10/02/17 09:55 Dose: 100 mg - Labs Labs: 10/02/17 05:30 10/02/17 05:30 - Constitutional Appears: No Acute Distress - Head Exam Head Exam: ATRAUMATIC, NORMAL INSPECTION, NORMOCEPHALIC - Eye Exam Eye Exam: EOMI, PERRL - Respiratory Exam Respiratory Exam: Rhonchi, Wheezes, NORMAL BREATHING PATTERN - Cardiovascular Exam Cardiovascular Exam: REGULAR RHYTHM, +S1, +S2 - GI/Abdominal Exam GI & Abdominal Exam: Soft, Normal Bowel Sounds. absent: Guarding, Rigid, Tenderness - Extremities Exam Extremities Exam: absent: Calf Tenderness, Pedal Edema, Tenderness - Neurological Exam Neurological Exam: Alert, Awake, Oriented x3 Neuro motor strength exam: Left Upper Extremity: 5, Right Upper Extremity: 5, Left Lower Extremity: 5, Right Lower Extremity: 5 - Psychiatric Exam Psychiatric exam: Normal Affect, Normal Mood - Skin Skin Exam: Dry, Warm Assessment and Plan - Assessment and Plan (Free Text) Assessment: 47 year old female with past medical history of COPD, asthma, alcohol and heroin abuse, hepatitis C with cirrhosis, and homelessness who presents to ED with shortness of breath. Patient admitted for COPD exacerbation. Patient being treated with IV antibiotics and breathing treatments for COPD and Ativan for ETOH/?opiate withdrawal. Plan: 1. COPD exacerbation - CXR showing no consolidation or evidence of PNA, procal low - Duonebs - Rocephin, Azithromycin - IV solumedrol 40mg Daily - O2 NC, maintain SaO2 >90% - f/u cultures - Smoking cessation counseling 2. ETOH withdrawal - CIWA, last drink reportedly yesterday afternoon - Ativan 2mg Q6H PRN - Monitor on telemetry for 24 hours - cessation counseling provided 3. Transaminitis - Likely secondary to hx of Hep C and etoh abuse - Continue to monitor 4. Hx of heroin use - UDS follow up - Cessation counseling provided 5. Tobacco abuse - Hx of 1 PPD, nicotine 0.21mg - Cessation counseling provided GI/DVT ppx - Protonix - Heparin 5000 Q8H Case and plan discussed with attending <Soo Cardona - Last Filed: 10/02/17 14:01> Objective - Vital Signs/Intake and Output Vital Signs (last 24 hours): Temp Pulse Resp BP Pulse Ox 98.1 F 92 H 20 134/93 H 97 10/02/17 06:00 10/02/17 06:00 10/02/17 06:00 10/02/17 06:00 10/02/17 06:00 Intake and Output: 10/02/17 10/02/17 06:59 18:59 Intake Total 120 Balance 120 - Medications Medications: Current Medications Albuterol/Ipratropium (Duoneb 3 Mg/0.5 Mg (3 Ml) Ud) 3 ml IH [id number] PRN PRN Reason: Shortness of Breath Albuterol/Ipratropium (Duoneb 3 Mg/0.5 Mg (3 Ml) Ud) 3 ml IH [id number] JACK Folic Acid (Folic Acid) 1 mg PO DAILY [facility] Last Admin: 10/02/17 09:56 Dose: 1 mg Heparin Sodium (Porcine) (Heparin) 5,000 units SC Q12 JACK PRN Reason: Protocol Last Admin: 10/02/17 09:55 Dose: 5,000 units Ceftriaxone Sodium (Rocephin 1 Gram Ivpb) 1 gm in 100 mls @ 100 mls/hr IVPB 1800 JACK PRN Reason: Protocol Azithromycin (Zithromax 500mg In Ns) 500 mg in 250 mls @ 167 mls/hr IVPB 1900 JACK PRN Reason: Protocol Lorazepam (Ativan) 2 mg IVP Q6 PRN; Protocol PRN Reason: Symptoms of alcohol withdrawl Last Admin: 10/02/17 13:41 Dose: 2 mg Methylprednisolone (Solu-Medrol) 40 mg IVP DAILY [facility] Last Admin: 10/02/17 09:55 Dose: 40 mg Nicotine (Nicoderm Cq) 1 patch TD DAILY [facility] Last Admin: 10/02/17 11:47 Dose: 1 patch Pantoprazole Sodium (Protonix Ec Tab) 40 mg PO ACB [facility] Thiamine HCl (Vitamin B1 Tab) 100 mg PO DAILY [facility] Last Admin: 10/02/17 09:55 Dose: 100 mg - Labs Labs: 10/02/17 05:30 10/02/17 05:30 Attending/Attestation - Attestation I have personally seen and examined this patient.: Yes I have fully participated in the care of the patient.: Yes I have reviewed all pertinent clinical information, including history, physical exam and plan: Yes Notes (Text): 10/02/17 14:00 Medical record note made by the resident after discussion with my direction and input after the patient was personally seen and examined by me. I have reviewed the chart and agree that the record accurately reflects by personal performance of the history, physical exam, data review, and medical decision-making, in the course for the patient. I have also personally directed the plan of care. 47 year old homeless female with history of tobacco use, COPD, alcohol and heroin abuse, hepatitis C and noncompliance with medication is admitted for COPD exacerbation. continue Neb/steroid and antibiotics. Alcohol abuse, we will Monitor for withdrawal symptoms. Elevated LFTs; secondary to alcohol abuse and hep c . will monitor Drug abuse cessation, alcohol cessation is strongly advised. Prognosis is guarded due to non compliance and ongoing alcohol and drug abuse
--- NOTE | 2017-10-02 16:38 | CARD ---
APPROVED REPORT EKG Measurement Heart [id number] NM [id number] [id number] <Conclusion> Normal sinus rhythm Normal ECG
[2017-10-02] MEDS: cefTRIAXone 1 gm 1 GM/100 ML BAG IVPB SCH (18:20)
[2017-10-02] MEDS: Albuterol-Ipratrop 3 mg / 0.5 (3 ml) UD IH SCH ×2 (18:35→19:41)
[2017-10-02] MEDS: Azithromycin 500MG/NS 250ml 500 MG/250 ML BAG IVPB SCH (18:57)
[2017-10-03] MEDS: Albuterol-Ipratrop 3 mg / 0.5 (3 ml) UD IH SCH ×4 (01:48→20:30)
[2017-10-03 06:26] LABS: BASO # 0.02 K/mm3 (0.0-2.0); BASO % 0.1 % (0.0-3.0); EOS % 0.1 % (1.5-5.0); GRAN # 13.61 (1.4-6.5); GRAN % 78.9 % (50.0-68.0); HEMOGLOBIN 12.8 g/dL (12.0-16.0); LYMPH # 2.2 (1.2-3.4); LYMPH % 12.9 % (22.0-35.0); MEAN CELL VOLUME 91.6 fl (80.0-105.0); MEAN CORPUSCULAR HEMOGLOBIN 29.2 pg (25.0-35.0); MEAN CORPUSCULAR HGB CONC 31.9 g/dl (31.0-37.0); MEAN PLATELET VOLUME 11.6 fl (7.0-11.0); MONO # 1.4 (0.1-0.6); RBC 4.38 10^6/uL (3.5-6.1); RED CELL DISTRIBUTION WIDTH 18.4 % (11.5-14.5); WHITE BLOOD COUNT 17.3 10^3/ul (4.5-11.0)
--- NOTE | 2017-10-03 07:23 | CP.PCM.PN ---
<Brock Monae - Last Filed: 10/03/17 13:29> Subjective - Date & Time of Evaluation Date of Evaluation: 10/03/17 Time of Evaluation: 07:23 - Subjective Subjective: Medicine Progress note Patient seen and examined at bedside this AM. Continues to have some tremors. Awake and alert to person and place only. Needed to be re-oriented to time. Breath treatment just completed. No new complaints at this time. Denies fevers, chills, chest pain, nausea vomiting, diarrhea Objective - Vital Signs/Intake and Output Vital Signs (last 24 hours): Temp Pulse Resp BP Pulse Ox 98.0 F 75 18 128/92 H 99 10/03/17 06:00 10/03/17 06:00 10/03/17 06:00 10/03/17 06:00 10/03/17 06:00 Intake and Output: 10/03/17 10/03/17 06:59 18:59 Intake Total 420 Output Total 3 Balance 417 - Medications Medications: Current Medications Albuterol/Ipratropium (Duoneb 3 Mg/0.5 Mg (3 Ml) Ud) 3 ml IH [id number] PRN PRN Reason: Shortness of Breath Albuterol/Ipratropium (Duoneb 3 Mg/0.5 Mg (3 Ml) Ud) 3 ml IH [id number] JACK Last Admin: 10/03/17 01:48 Dose: Not Given Folic Acid (Folic Acid) 1 mg PO DAILY [facility] Last Admin: 10/02/17 09:56 Dose: 1 mg Heparin Sodium (Porcine) (Heparin) 5,000 units SC Q12 JACK PRN Reason: Protocol Last Admin: 10/02/17 21:16 Dose: 5,000 units Ceftriaxone Sodium (Rocephin 1 Gram Ivpb) 1 gm in 100 mls @ 100 mls/hr IVPB 1800 JACK PRN Reason: Protocol Last Admin: 10/02/17 18:20 Dose: 100 mls/hr Azithromycin (Zithromax 500mg In Ns) 500 mg in 250 mls @ 167 mls/hr IVPB 1900 JACK PRN Reason: Protocol Last Admin: 10/02/17 18:57 Dose: 167 mls/hr Lorazepam (Ativan) 2 mg IVP Q6 PRN; Protocol PRN Reason: Symptoms of alcohol withdrawl Last Admin: 10/02/17 21:17 Dose: 2 mg Methylprednisolone (Solu-Medrol) 40 mg IVP DAILY [facility] Last Admin: 10/02/17 09:55 Dose: 40 mg Nicotine (Nicoderm Cq) 1 patch TD DAILY [facility] Last Admin: 10/02/17 11:47 Dose: 1 patch Pantoprazole Sodium (Protonix Ec Tab) 40 mg PO ACB [facility] Thiamine HCl (Vitamin B1 Tab) 100 mg PO DAILY [facility] Last Admin: 10/02/17 09:55 Dose: 100 mg - Labs Labs: 10/03/17 05:45 10/02/17 05:30 - Constitutional Appears: Non-toxic, No Acute Distress, Older Than Stated Age, Chronically Ill - Head Exam Head Exam: ATRAUMATIC - Eye Exam Pupil Exam: PERRL - ENT Exam ENT Exam: Mucous Membranes Moist - Cardiovascular Exam Cardiovascular Exam: Tachycardia, +S1, +S2. absent: Bradycardia - GI/Abdominal Exam GI & Abdominal Exam: Soft. absent: Firm, Guarding, Rigid, Tenderness - Extremities Exam Extremities Exam: absent: Calf Tenderness - Neurological Exam Neurological Exam: Alert, Awake - Skin Skin Exam: Intact, Warm Assessment and Plan - Assessment and Plan (Free Text) Assessment: 47 year old female with past medical history of COPD, asthma, alcohol and heroin abuse, hepatitis C with cirrhosis, and homelessness who presents to ED with shortness of breath. Patient admitted for COPD exacerbation. Patient being treated with IV antibiotics and breathing treatments for COPD and Ativan for ETOH/?opiate withdrawal. Discharge from telemetry Plan: COPD exacerbation - CXR showing no consolidation or evidence of PNA, procal low - JACK Duonebs - Rocephin, Azithromycin - PO Prednisone - O2 NC, maintain SaO2 >90% - f/u cultures - Smoking cessation counseling ETOH withdrawal - CIWA, last drink reportedly yesterday afternoon - Ativan 2mg Q6H PRN - Monitor on telemetry for 24 hours - cessation counseling provided Transaminitis - Likely secondary to hx of Hep C and etoh abuse - Resolved Hx of heroin use - UDS follow up - Cessation counseling provided Tobacco abuse - Hx of 1 PPD, nicotine 0.21mg - Cessation counseling provided GI/DVT ppx - Protonix - Heparin 5000 Q8H <Soo Cardona - Last Filed: 10/04/17 15:17> Objective - Vital Signs/Intake and Output Vital Signs (last 24 hours): Temp Pulse Resp BP Pulse Ox 97.9 F 85 20 136/99 H 96 10/04/17 05:51 10/04/17 05:51 10/04/17 05:51 10/04/17 05:51 10/04/17 05:51 - Labs Labs: 10/04/17 05:30 10/04/17 05:30 Attending/Attestation - Attestation I have personally seen and examined this patient.: Yes I have fully participated in the care of the patient.: Yes I have reviewed all pertinent clinical information, including history, physical exam and plan: Yes Notes (Text): 10/04/17 15:15 Medical record note made by the resident after discussion with my direction and input after the patient was personally seen and examined by me. I have reviewed the chart and agree that the record accurately reflects by personal performance of the history, physical exam, data review, and medical decision-making, in the course for the patient. I have also personally directed the plan of care. 47 year old homeless female with history of tobacco use, COPD, alcohol and heroin abuse, hepatitis C and noncompliance with medication was admitted for COPD exacerbation. cough and dyspnea is improving.continue Neb/steroid and antibiotics. Alcohol abuse, continue CIWA protocal.There is no sign of alcohol withdrawal at this time Drug abuse cessation, alcohol cessation is strongly advised. Prognosis is guarded due to non compliance and ongoing alcohol and drug abuse
[2017-10-03 07:24] LABS: ALB/GLOB RATIO 1.2 (1.1-1.8); ALBUMIN 3.2 g/dL (3.0-4.8); ALT/SGPT 53 U/L (7-56); AST/SGOT 32 U/L (14-36); BLOOD UREA NITROGEN 15 mg/dL (7-21); CALCIUM 8.6 mg/dL (8.4-10.5); GFR AFRICAN-AMERICAN > 60; GFR NON-AFRICAN AMERICAN > 60
[2017-10-03] MEDS ORDERED: Pantoprazole 40 mg EC Tab PO SCH (07:30)
[2017-10-03] MEDS: MethylPREDNISolone 40 mg Vial IVP SCH (09:22)
[2017-10-03] MEDS: cefTRIAXone 1 gm 1 GM/100 ML BAG IVPB SCH (17:42)
[2017-10-03 18:17] VITALS: RESP 20
[2017-10-03] MEDS: Azithromycin 500MG/NS 250ml 500 MG/250 ML BAG IVPB SCH (18:33)
[2017-10-03 21:58] LABS: BARBITURATES, UR NEGATIVE (NEGATIVE); BENZODIAZEPINES, UR NEGATIVE (NEGATIVE); OPIATES, UR NEGATIVE (NEGATIVE); PHENCYCLIDINE, UR NEGATIVE (NEGATIVE)
[2017-10-04] MEDS: Albuterol-Ipratrop 3 mg / 0.5 (3 ml) UD IH SCH ×3 (02:40→13:27)
[2017-10-04 05:50] LABS: BASO # 0.02 K/mm3 (0.0-2.0); BASO % 0.1 % (0.0-3.0); EOS % 0.1 % (1.5-5.0); GRAN # 10.33 (1.4-6.5); GRAN % 70.2 % (50.0-68.0); HEMOGLOBIN 13.9 g/dL (12.0-16.0); LYMPH % 20.6 % (22.0-35.0); MEAN CELL VOLUME 90.8 fl (80.0-105.0); MEAN CORPUSCULAR HEMOGLOBIN 29.8 pg (25.0-35.0); MEAN CORPUSCULAR HGB CONC 32.8 g/dl (31.0-37.0); MEAN PLATELET VOLUME 10.7 fl (7.0-11.0); MONO # 1.3 (0.1-0.6); RBC 4.67 10^6/uL (3.5-6.1); RED CELL DISTRIBUTION WIDTH 18.2 % (11.5-14.5); WHITE BLOOD COUNT 14.7 10^3/ul (4.5-11.0)
[2017-10-04 05:52] VITALS: BP 136/99; PULSE 85; TEMP 97.9; O2SAT 96
[2017-10-04 06:31] LABS: ALB/GLOB RATIO 1.1 (1.1-1.8); ALBUMIN 3.2 g/dL (3.0-4.8); ALT/SGPT 57 U/L (7-56); AST/SGOT 37 U/L (14-36); BLOOD UREA NITROGEN 13 mg/dL (7-21); CALCIUM 8.4 mg/dL (8.4-10.5); GFR AFRICAN-AMERICAN > 60; GFR NON-AFRICAN AMERICAN > 60
--- NOTE | 2017-10-04 13:18 | CP.PCM.DIS ---
<Mehdi Villagomez - Last Filed: 10/04/17 13:06> Provider - Provider Date of Admission: 10/01/17 20:27 Attending physician: Soo Cardona MD Primary care physician: NO FAMILY PROVIDER Time Spent in preparation of Discharge (in minutes): 35 Diagnosis - Discharge Diagnosis (1) COPD exacerbation Status: Chronic Priority: Medium (2) Alcohol abuse Status: Chronic (3) Alcohol withdrawal Status: Resolved (4) Leukocytosis Status: Acute (5) Medical non-compliance Status: Chronic (6) Heroin abuse Status: Chronic Priority: Medium (7) Polysubstance abuse Status: Chronic Hospital Course - Lab Results Lab Results: Micro Results 10/01/17 21:00 Urine Urine Culture - Final No Growth (<1,000 CFU/ML) Most Recent Lab Values WBC 14.7 10^3/ul (4.5-11.0) H 10/04/17 05:30 RBC 4.67 10^6/uL (3.5-6.1) 10/04/17 05:30 Hgb 13.9 g/dL (12.0-16.0) 10/04/17 05:30 Hct 42.4 % (36.0-48.0) 10/04/17 05:30 MCV 90.8 fl (80.0-105.0) 10/04/17 05:30 MCH 29.8 pg (25.0-35.0) 10/04/17 05:30 MCHC 32.8 g/dl (31.0-37.0) 10/04/17 05:30 RDW 18.2 % (11.5-14.5) H 10/04/17 05:30 Plt Count 367 10^3/uL (120.0-450.0) 10/04/17 05:30 MPV 10.7 fl (7.0-11.0) 10/04/17 05:30 Gran % 70.2 % (50.0-68.0) H 10/04/17 05:30 Lymph % (Auto) 20.6 % (22.0-35.0) L 10/04/17 05:30 Mcpherson % (Auto) 9.0 % (1.0-6.0) H 10/04/17 05:30 Eos % (Auto) 0.1 % (1.5-5.0) L 10/04/17 05:30 Baso % (Auto) 0.1 % (0.0-3.0) 10/04/17 05:30 Gran # 10.33 (1.4-6.5) H 10/04/17 05:30 Lymph # (Auto) 3.0 (1.2-3.4) 10/04/17 05:30 Mcpherson # (Auto) 1.3 (0.1-0.6) H 10/04/17 05:30 Eos # (Auto) 0.0 (0.0-0.7) 10/04/17 05:30 Baso # (Auto) 0.02 K/mm3 (0.0-2.0) 10/04/17 05:30 pCO2 43 mm/Hg (35-45) 10/01/17 18:14 pO2 63 mm/Hg (30-55) H 10/01/17 21:30 HCO3 27.3 mmol/L (21-28) 10/01/17 18:14 ABG pH 7.41 (7.35-7.45) 10/01/17 18:14 ABG Total CO2 28.6 mmol.L (22-28) H 10/01/17 18:14 ABG O2 Saturation 100.3 % (95-98) H 10/01/17 18:14 ABG O2 Content 18.8 ML/dL (15-23) 10/01/17 18:14 ABG Base Excess 2.2 mmol/L (-2.0-3.0) 10/01/17 18:14 ABG Hemoglobin 92.8 g/dL (11.7-17.4) H 10/01/17 18:14 ABG Carboxyhemoglobin 6.4 % (0.5-1.5) H 10/01/17 18:14 POC ABG HHb (Measured) -0.3 % (0-5) L 10/01/17 18:14 ABG Methemoglobin 1.1 % (0.0-3.0) 10/01/17 18:14 ABG O2 Capacity 18.7 mL/dL (16-24) 10/01/17 18:14 VBG pH 7.44 (7.32-7.43) H 10/01/17 21:30 VBG pCO2 37.0 (40-60) L 10/01/17 21:30 VBG HCO3 25.1 mmol/l (21-28) 10/01/17 21:30 VBG Total CO2 26.2 mmol.L (22-28) 10/01/17 21:30 VBG O2 Sat (Calc) 95.2 % (40-65) H 10/01/17 21:30 VBG Base Excess 1.1 mmol/L (0.0-2.0) 10/01/17 21:30 VBG Potassium 3.4 mmol/L (3.6-5.2) L 10/01/17 21:30 Hgb O2 Saturation 92.8 % (95.0-98.0) L 10/01/17 18:14 Sodium 139.0 mmol/L (132-148) 10/01/17 21:30 Chloride 107.0 mmol/L (98-107) 10/01/17 21:30 Glucose 145 mg/dl (65-105) H 10/01/17 21:30 Lactate 1.5 mmol/L (0.7-2.1) 10/01/17 21:30 FiO2 21.0 % 10/01/17 21:30 Sodium 142 mmol/L (132-148) 10/04/17 05:30 Potassium 3.9 mmol/L (3.6-5.0) 10/04/17 05:30 Chloride 104 mmol/L (98-107) 10/04/17 05:30 Carbon Dioxide 31 mmol/L (21-33) 10/04/17 05:30 Anion Gap 11 (10-20) 10/04/17 05:30 BUN 13 mg/dL (7-21) 10/04/17 05:30 Creatinine 0.6 mg/dl (0.7-1.2) L 10/04/17 05:30 Est GFR ( Amer) > 60 10/04/17 05:30 Est GFR (Non-Af Amer) > 60 10/04/17 05:30 Random Glucose 88 mg/dL (70-110) 10/04/17 05:30 Calcium 8.4 mg/dL (8.4-10.5) 10/04/17 05:30 Magnesium 1.9 mg/dL (1.7-2.2) 10/01/17 17:58 Total Bilirubin 0.6 mg/dL (0.2-1.3) 10/04/17 05:30 AST 37 U/L (14-36) H 10/04/17 05:30 ALT 57 U/L (7-56) H 10/04/17 05:30 Alkaline Phosphatase 69 U/L (38-126) 10/04/17 05:30 NT-Pro-B Natriuret Pep 26.7 pg/mL (0-450) 10/01/17 17:58 Total Protein 6.1 g/dL (5.8-8.3) 10/04/17 05:30 Albumin 3.2 g/dL (3.0-4.8) 10/04/17 05:30 Globulin 2.9 gm/dL 10/04/17 05:30 Albumin/Globulin Ratio 1.1 (1.1-1.8) 10/04/17 05:30 Procalcitonin 0.05 NG/ML (0.19-0.49) L 10/01/17 22:30 Beta HCG, Quant < 2.39 mIU/mL (0-6.15) 10/01/17 18:34 Venous Blood Potassium 3.4 mmol/L (3.6-5.2) L 10/01/17 21:30 Salicylates < 1 mg/dL (2.0-20.0) L 10/01/17 17:58 Urine Opiates Screen Negative (NEGATIVE) 10/03/17 21:26 Urine Methadone Screen Negative (NEGATIVE) 10/03/17 21:26 Acetaminophen < 10.0 ug/ml (10.0-20.0) L 10/01/17 17:58 Ur Barbiturates Screen Negative (NEGATIVE) 10/03/17 21:26 Ur Phencyclidine Scrn Negative (NEGATIVE) 10/03/17 21:26 Ur Amphetamines Screen Negative (NEGATIVE) 10/03/17 21:26 U Benzodiazepines Scrn Negative (NEGATIVE) 10/03/17 21:26 U Oth Cocaine Metabols Negative (NEGATIVE) 10/03/17 21:26 U Cannabinoids Screen Negative (NEGATIVE) 10/03/17 21:26 Alcohol, Quantitative 136 mg/dL (0-10) H 10/01/17 17:58 - Hospital Course Hospital Course: Patient is a 47 year old female with past medical history of COPD, asthma, poly- substance abuse, hepatitis C with cirrhosis who presented to [facility] ED with wheezing and shortness of breath. Patient indicated progressive shortness of breath without assistance from her home albuterol inhaler. Patient reported feeling chills and productive cough of yellow sputum. Patient was given IV steroids and breathing treatments in ED and admitted for COPD exacerbation and monitoring for alcohol withdrawl symptoms. Patient was placed on scheduled breathing treatments, IV steroids, IV antibiotics and placed on alcohol assessment. Patient breathing symptoms improved over course of hospital stay. Patient was afebrile, tolerating room air. Patient was discharged with planned outpatient follow up in the [facility] clinic at 1:00PM. Patient was discharged with prescriptions for albuterol, ICS, folic acid, thiamine. Discharge planning including outpatient follow up, medication reconciliation, and alcohol as well as substance abuse cessation counseling were conducted. Patient was in understanding. - Date & Time of H&P Date of H&P: 10/01/17 Time of H&P: 20:41 Discharge Exam - Head Exam Head Exam: ATRAUMATIC, NORMOCEPHALIC - Eye Exam Eye Exam: EOMI, PERRL - ENT Exam ENT Exam: Mucous Membranes Moist - Neck Exam Neck exam: Full Rom - Respiratory Exam Respiratory Exam: Wheezes (mild bilateral ), NORMAL BREATHING PATTERN - Cardiovascular Exam Cardiovascular Exam: REGULAR RHYTHM, +S1, +S2 - GI/Abdominal Exam GI & Abdominal Exam: Normal Bowel Sounds, Soft. absent: Tenderness - Extremities Exam Extremities exam: normal capillary refill, pedal pulses present - Neurological Exam Neurological exam: Alert, Normal Gait, Oriented x3, Reflexes Normal - Psychiatric Exam Psychiatric exam: Anxious, Normal Mood - Skin Skin Exam: Dry, Warm Discharge Plan - Discharge Medications Prescriptions: Albuterol HFA [Ventolin HFA 90 mcg/actuation (8 g)] 200 puff IH Q6H PRN #2 inhaler PRN Reason: Shortness Of Breath Fluticasone/Salmeterol 250/50 [Advair Diskus] 1 puff IH Q12 #1 puff Folic Acid 1 mg PO DAILY #30 tab predniSONE [predniSONE Tab] See Taper PO DAILY #6 tab Thiamine [Vitamin B1 Tab] 100 mg PO DAILY #30 tab - Follow Up Plan Condition: STABLE Disposition: HOME/ ROUTINE Instructions: Quitting Smoking for Older Adults, Asthma, Adult (DC), Medicines for Asthma, Asthma Action Plan, Rescue vs Controller Inhalers, Effects of Alcohol on Your Health Additional Instructions: Please follow up in [facility] - Your appointment is scheduled for: October 23, 1:00 PM Follow up in clinic to establish primary care physician Take Medications as prescribed to you - Albuterol inhaler - ICS inhaler - Folic acid - Thiamine Return to nearest ED if you experience chest pain, shortness of breath, persistent fever, nausea and vomiting Referrals: [facility], [Non-Staff] - FAMILY PROVIDER,NO [Primary Care Provider] - <Soo Cardona - Last Filed: 10/04/17 15:34> Provider - Provider Date of Admission: 10/01/17 20:27 Attending physician: Soo Cardona MD Primary care physician: JEIMY FAMILY PROVIDER Hospital Course - Lab Results Lab Results: Micro Results 10/01/17 21:00 Urine Urine Culture - Final No Growth (<1,000 CFU/ML) Most Recent Lab Values WBC 14.7 10^3/ul (4.5-11.0) H 10/04/17 05:30 RBC 4.67 10^6/uL (3.5-6.1) 10/04/17 05:30 Hgb 13.9 g/dL (12.0-16.0) 10/04/17 05:30 Hct 42.4 % (36.0-48.0) 10/04/17 05:30 MCV 90.8 fl (80.0-105.0) 10/04/17 05:30 MCH 29.8 pg (25.0-35.0) 10/04/17 05:30 MCHC 32.8 g/dl (31.0-37.0) 10/04/17 05:30 RDW 18.2 % (11.5-14.5) H 10/04/17 05:30 Plt Count 367 10^3/uL (120.0-450.0) 10/04/17 05:30 MPV 10.7 fl (7.0-11.0) 10/04/17 05:30 Gran % 70.2 % (50.0-68.0) H 10/04/17 05:30 Lymph % (Auto) 20.6 % (22.0-35.0) L 10/04/17 05:30 Mcpherson % (Auto) 9.0 % (1.0-6.0) H 10/04/17 05:30 Eos % (Auto) 0.1 % (1.5-5.0) L 10/04/17 05:30 Baso % (Auto) 0.1 % (0.0-3.0) 10/04/17 05:30 Gran # 10.33 (1.4-6.5) H 10/04/17 05:30 Lymph # (Auto) 3.0 (1.2-3.4) 10/04/17 05:30 Mcpherson # (Auto) 1.3 (0.1-0.6) H 10/04/17 05:30 Eos # (Auto) 0.0 (0.0-0.7) 10/04/17 05:30 Baso # (Auto) 0.02 K/mm3 (0.0-2.0) 10/04/17 05:30 pCO2 43 mm/Hg (35-45) 10/01/17 18:14 pO2 63 mm/Hg (30-55) H 10/01/17 21:30 HCO3 27.3 mmol/L (21-28) 10/01/17 18:14 ABG pH 7.41 (7.35-7.45) 10/01/17 18:14 ABG Total CO2 28.6 mmol.L (22-28) H 10/01/17 18:14 ABG O2 Saturation 100.3 % (95-98) H 10/01/17 18:14 ABG O2 Content 18.8 ML/dL (15-23) 10/01/17 18:14 ABG Base Excess 2.2 mmol/L (-2.0-3.0) 10/01/17 18:14 ABG Hemoglobin 92.8 g/dL (11.7-17.4) H 10/01/17 18:14 ABG Carboxyhemoglobin 6.4 % (0.5-1.5) H 10/01/17 18:14 POC ABG HHb (Measured) -0.3 % (0-5) L 10/01/17 18:14 ABG Methemoglobin 1.1 % (0.0-3.0) 10/01/17 18:14 ABG O2 Capacity 18.7 mL/dL (16-24) 10/01/17 18:14 VBG pH 7.44 (7.32-7.43) H 10/01/17 21:30 VBG pCO2 37.0 (40-60) L 10/01/17 21:30 VBG HCO3 25.1 mmol/l (21-28) 10/01/17 21:30 VBG Total CO2 26.2 mmol.L (22-28) 10/01/17 21:30 VBG O2 Sat (Calc) 95.2 % (40-65) H 10/01/17 21:30 VBG Base Excess 1.1 mmol/L (0.0-2.0) 10/01/17 21:30 VBG Potassium 3.4 mmol/L (3.6-5.2) L 10/01/17 21:30 Hgb O2 Saturation 92.8 % (95.0-98.0) L 10/01/17 18:14 Sodium 139.0 mmol/L (132-148) 10/01/17 21:30 Chloride 107.0 mmol/L (98-107) 10/01/17 21:30 Glucose 145 mg/dl (65-105) H 10/01/17 21:30 Lactate 1.5 mmol/L (0.7-2.1) 10/01/17 21:30 FiO2 21.0 % 10/01/17 21:30 Sodium 142 mmol/L (132-148) 10/04/17 05:30 Potassium 3.9 mmol/L (3.6-5.0) 10/04/17 05:30 Chloride 104 mmol/L (98-107) 10/04/17 05:30 Carbon Dioxide 31 mmol/L (21-33) 10/04/17 05:30 Anion Gap 11 (10-20) 10/04/17 05:30 BUN 13 mg/dL (7-21) 10/04/17 05:30 Creatinine 0.6 mg/dl (0.7-1.2) L 10/04/17 05:30 Est GFR ( Amer) > 60 10/04/17 05:30 Est GFR (Non-Af Amer) > 60 10/04/17 05:30 Random Glucose 88 mg/dL (70-110) 10/04/17 05:30 Calcium 8.4 mg/dL (8.4-10.5) 10/04/17 05:30 Magnesium 1.9 mg/dL (1.7-2.2) 10/01/17 17:58 Total Bilirubin 0.6 mg/dL (0.2-1.3) 10/04/17 05:30 AST 37 U/L (14-36) H 10/04/17 05:30 ALT 57 U/L (7-56) H 10/04/17 05:30 Alkaline Phosphatase 69 U/L (38-126) 10/04/17 05:30 NT-Pro-B Natriuret Pep 26.7 pg/mL (0-450) 10/01/17 17:58 Total Protein 6.1 g/dL (5.8-8.3) 10/04/17 05:30 Albumin 3.2 g/dL (3.0-4.8) 10/04/17 05:30 Globulin 2.9 gm/dL 10/04/17 05:30 Albumin/Globulin Ratio 1.1 (1.1-1.8) 10/04/17 05:30 Procalcitonin 0.05 NG/ML (0.19-0.49) L 10/01/17 22:30 Beta HCG, Quant < 2.39 mIU/mL (0-6.15) 10/01/17 18:34 Venous Blood Potassium 3.4 mmol/L (3.6-5.2) L 10/01/17 21:30 Salicylates < 1 mg/dL (2.0-20.0) L 10/01/17 17:58 Urine Opiates Screen Negative (NEGATIVE) 10/03/17 21:26 Urine Methadone Screen Negative (NEGATIVE) 10/03/17 21:26 Acetaminophen < 10.0 ug/ml (10.0-20.0) L 10/01/17 17:58 Ur Barbiturates Screen Negative (NEGATIVE) 10/03/17 21:26 Ur Phencyclidine Scrn Negative (NEGATIVE) 10/03/17 21:26 Ur Amphetamines Screen Negative (NEGATIVE) 10/03/17 21:26 U Benzodiazepines Scrn Negative (NEGATIVE) 10/03/17 21:26 U Oth Cocaine Metabols Negative (NEGATIVE) 10/03/17 21:26 U Cannabinoids Screen Negative (NEGATIVE) 10/03/17 21:26 Alcohol, Quantitative 136 mg/dL (0-10) H 10/01/17 17:58 Attending/Attestation - Attestation I have personally seen and examined this patient.: Yes I have fully participated in the care of the patient.: Yes I have reviewed all pertinent clinical information, including history, physical exam and plan: Yes Notes (Text): 10/04/17 15:28 Medical record note made by the resident after discussion with my direction and input after the patient was personally seen and examined by me. I have reviewed the chart and agree that the record accurately reflects by personal performance of the history, physical exam, data review, and medical decision-making, in the course for the patient. I have also personally directed the plan of care. 47 year old homeless female with history of tobacco use, COPD, alcohol and heroin abuse, hepatitis C and noncompliance with medication was admitted with COPD exacerbation.Patient has responded well to Nen/Steroid cough and dyspnea has improved.There is no sign of alcohol withdrawal. Patient is feeling better and wants to leave hospital as soon as possible.She will be discharged and will follow up with [facility] Clinic. Drug abuse cessation, alcohol cessation is strongly advised. Prognosis is guarded due to non compliance and ongoing alcohol and drug abuse
[2017-10-04] MEDS ORDERED: Cefpodoxime (Vantin) 200 mg Tab PO SCH (22:00)
== END 2017-10-04 14:47 | disposition home or self-care (01) | DRG 88 ==
LOC: ED 17:37 → ERH 20:27 → 2RNO 21:31 → 5RNO 10-04 09:33
PROVIDERS: ADMIT Internal Medicine; ATTEND Internal Medicine
DX: J44.1 Chronic obstructive pulmonary disease with (acute) exacerbation (principal); F10.239 Alcohol dependence with withdrawal, unspecified; F11.23 Opioid dependence with withdrawal; B19.20 Unspecified viral hepatitis C without hepatic coma; E87.6 Hypokalemia; I13.0 Hypertensive heart and chronic kidney disease with heart failure and stage 1 through stage 4 chronic kidney disease, or unspecified chronic kidney disease; I50.9 Heart failure, unspecified; K74.60 Unspecified cirrhosis of liver; N18.9 Chronic kidney disease, unspecified; R09.02 Hypoxemia; F17.200 Nicotine dependence, unspecified, uncomplicated; Z59.0 Homelessness; Z83.3 Family history of diabetes mellitus; Z87.11 Personal history of peptic ulcer disease; Z90.49 Acquired absence of other specified parts of digestive tract; Z91.14 Patient's other noncompliance with medication regimen; Z91.19 Patient's noncompliance with other medical treatment and regimen

== ENCOUNTER 2017-11-13 01:20 | Emergency (ER) | payer MEDICAID ==
[2017-11-13 01:21] VITALS: BMI 24.7
[2017-11-13] MEDS ORDERED: Albuterol-Ipratrop 3 mg / 0.5 (3 ml) UD IH STA ×3 (01:33→05:18)
--- NOTE | 2017-11-13 01:33 | ED PDOC ---
Arrival/HPI - General Time Seen by Provider: 11/13/17 01:25 Historian: Patient - History of Present Illness Narrative History of Present Illness (Text): 11/13/17 01:33 Fani Chambers is a 47 year old female smoker, whose past medical history includes asthma, COPD, Hepatitis C, alcohol abuse, IV and drug abuse, who presents to the ED complaining of shortness of breath and wheezing today. Patient states symptoms are consistent with previous episodes of asthma/COPD and reports she ran out of her steroids. Patient denies any fever, chills, chest pain, abdominal pain, nausea, vomiting, diarrhea, urinary symptoms, back pain, neck pain, headache, dizziness, or any other complaints. Time/Duration: Other (tonight) Symptom Onset: Gradual Symptom Course: Unchanged Activities at Onset: Light Context: Street Past Medical History - Provider Review Nursing Documentation Reviewed: Yes - Infectious Disease Hx of Infectious Diseases: None - Tetanus Immunization Tetanus Immunization: Unknown - Cardiac Hx Cardiac Disorders: Yes Hx Congestive Heart Failure: Yes Hx Hypertension: Yes - Pulmonary Hx Respiratory Disorders: Yes Hx Asthma: Yes Hx Chronic Obstructive Pulmonary Disease (COPD): Yes - Neurological Hx Neurological Disorder: No - HEENT Hx HEENT Disorder: No - Renal Hx Renal Disorder: Yes - Endocrine/Metabolic Hx Endocrine Disorders: No - Hematological/Oncological Hx Blood Disorders: Yes Hx Hepatitis C: Yes - Integumentary Hx Dermatological Disorder: No - Musculoskeletal/Rheumatological Hx Musculoskeletal Disorders: No Hx Falls: No - Gastrointestinal Hx Gastrointestinal Disorders: Yes Hx Pancreatitis: Yes - Genitourinary/Gynecological Hx Genitourinary Disorders: Yes Hx Sexually Transmitted Diseases: Yes - Psychiatric Hx Psychophysiologic Disorder: Yes Hx Anxiety: Yes Hx Depression: Yes Hx Substance Use: Yes - Surgical History Hx Appendectomy: Yes Other/Comment: tonsillectomy - Anesthesia Hx Anesthesia: Yes Hx Anesthesia Reactions: No Hx Malignant Hyperthermia: No - Suicidal Assessment Feels Threatened In Home Enviroment: No Family/Social History - Physician Review Nursing Documentation Reviewed: Yes Family/Social History: Unknown Family HX Smoking Status: Current Some Days Smoker Hx Alcohol Use: Yes Hx Substance Use: Yes Substance used: heroin Hx Substance Use Treatment: Yes Allergies/Home Meds Allergies/Adverse Reactions: Allergies No Known Allergies Allergy (Verified 09/25/17 21:56) Review of Systems - Physician Review All systems were reviewed & negative as marked: Yes - Review of Systems Constitutional: Normal. absent: Fevers Eyes: Normal ENT: Normal Respiratory: SOB, Wheezing Cardiovascular: Normal. absent: Chest Pain Gastrointestinal: Normal. absent: Abdominal Pain, Diarrhea, Nausea, Vomiting Genitourinary Female: Normal. absent: Dysuria, Frequency, Hematuria, Urine Output Changes Musculoskeletal: Normal. absent: Back Pain, Neck Pain Skin: Normal. absent: Rash Neurological: Normal. absent: Headache, Dizziness Endocrine: Normal Hemo/Lymphatic: Normal Psychiatric: Normal Physical Exam Vital Signs Reviewed: Yes Vital Signs Temp Pulse Resp BP Pulse Ox 11/13/17 02:19 90 18 100 11/13/17 01:21 97.7 F 92 H 16 115/70 94 L Temperature: Afebrile Blood Pressure: Normal Pulse: Regular Respiratory Rate: Normal Appearance: Positive for: Well-Appearing, Non-Toxic, Comfortable Mental Status: Positive for: Alert and Oriented X 3 - Systems Exam Head: Present: Atraumatic, Normocephalic Pupils: Present: PERRL Extroacular Muscles: Present: EOMI Conjunctiva: Present: Normal Mouth: Present: Moist Mucous Membranes Neck: Present: Normal Range of Motion Respiratory/Chest: Present: Wheezes (Wheezing bilaterally). No: Respiratory Distress, Accessory Muscle Use Cardiovascular: Present: Regular Rate and Rhythm, Normal S1, S2. No: Murmurs Abdomen: No: Tenderness, Distention, Peritoneal Signs Back: Present: Normal Inspection Upper Extremity: Present: Normal Inspection. No: Cyanosis, Edema Lower Extremity: Present: Normal Inspection. No: Edema Neurological: Present: GCS=15, CN II-XII Intact, Speech Normal Skin: Present: Warm, Dry, Normal Color. No: Rashes Psychiatric: Present: Alert, Oriented x 3, Normal Insight, Normal Concentration Medical Decision Making ED Course and Treatment: 11/13/17 01:33 Impression: 47 year old female complaining of shortness of breath and wheezing. Plan: -- Duoneb -- Solu-medrol -- Reassess and disposition Prior Visits: Notes and results from previous visits were reviewed. Progress Notes: 11/13/17 05:48 On re-evaluation, patient feels better and is in no acute distress. Patient is stable for discharge. Patient was instructed to follow up with physician or return if symptoms worsen or new concerning symptoms arise. - Medication Orders Current Medication Orders: Discontinued Medications Albuterol/Ipratropium (Duoneb 3 Mg/0.5 Mg (3 Ml) Ud) 3 ml IH ONCE STA Stop: 11/13/17 01:34 Last Admin: 11/13/17 01:39 Dose: 3 ml Albuterol/Ipratropium (Duoneb 3 Mg/0.5 Mg (3 Ml) Ud) 3 ml IH ONCE STA Stop: 11/13/17 02:07 Last Admin: 11/13/17 02:08 Dose: 3 ml Albuterol/Ipratropium (Duoneb 3 Mg/0.5 Mg (3 Ml) Ud) 3 ml IH ONCE STA Stop: 11/13/17 05:19 Last Admin: 11/13/17 05:21 Dose: 3 ml Methylprednisolone (Solu-Medrol) 125 mg IVP ONCE ONE Stop: 11/13/17 01:34 Last Admin: 11/13/17 02:06 Dose: 125 mg IVP Administration Document 11/13/17 02:06 CNR (Rec: 11/13/17 02:06 CNR [id number]) Charges for Administration # of IVP Administrations 1 - Scribe Statement The provider has reviewed the documentation as recorded by the Jc Rosales Provider Scribe Attestation: All medical record entries made by the Scribe were at my direction and personally dictated by me. I have reviewed the chart and agree that the record accurately reflects my personal performance of the history, physical exam, medical decision making, and the department course for this patient. I have also personally directed, reviewed, and agree with the discharge instructions and disposition. Disposition/Present on Arrival - Present on Arrival Any Indicators Present on Arrival: No History of DVT/PE: No History of Uncontrolled Diabetes: No Urinary Catheter: No History Surgical Site Infection Following: None - Disposition Have Diagnosis and Disposition been Completed?: Yes Diagnosis: Asthma exacerbation Disposition: HOME/ ROUTINE Disposition Time: 05:48 Patient Plan: Discharge Patient Problems: Current Active Problems Problem Status Onset Asthma attack Acute Condition: GOOD Discharge Instructions (ExitCare): Asthma, Adult (DC) Additional Instructions: Take meds as prescribed/follow up in clinic this week Prescriptions: predniSONE [Prednisone] 40 mg PO DAILY #10 tab Albuterol HFA [Ventolin HFA 90 mcg/actuation (8 g)] 2 puff IH [id number] PRN #1 puff PRN Reason: Wheezing Referrals: Brad Golden MD [Primary Care Provider] - Follow up with primary [facility] [Outside] - Follow up with primary
[2017-11-13] MEDS ORDERED: Albuterol-Ipratrop 3 mg / 0.5 (3 ml) UD ONE (01:37)
[2017-11-13 02:05] VITALS: TEMP 97.7
[2017-11-13 06:44] VITALS: BP 112/72; PULSE 88; RESP 19; O2SAT 99
== END 2017-11-13 06:44 | disposition home or self-care (01) ==
LOC: ED 01:20
DX: J45.901 Unspecified asthma with (acute) exacerbation (principal); F17.210 Nicotine dependence, cigarettes, uncomplicated
CPT/HCPCS: 94640; 96374; 99284; J2930

== ENCOUNTER 2017-11-15 18:53 | Inpatient (IN) | payer MEDICAID ==
[2017-11-15 18:53] VITALS: BMI 24.7
[2017-11-15] MEDS: Albuterol-Ipratrop 3 mg / 0.5 (3 ml) UD IH SCH ×4 (19:17→23:18)
--- NOTE | 2017-11-15 19:19 | ED PDOC ---
Arrival/HPI - General Chief Complaint: Shortness Of Breath Time Seen by Provider: 11/15/17 19:12 Historian: Patient - History of Present Illness Narrative History of Present Illness (Text): 11/15/17 19:16 Patient is a 47 year old female whose past medical history includes COPD, and who presents to the emergency department with dyspnea. Patient reports having difficulty breathing which started today. She is present with a friend. She is strongly refusing BiPAP treatment. Patient denies fevers, chills, cough, abdominal pain, nausea, vomiting, diarrhea, back pain, neck pain, headache, dizziness, or any other complaint. Symptom Onset: Sudden Symptom Course: Unchanged Context: Home Past Medical History - Provider Review Nursing Documentation Reviewed: Yes - Infectious Disease Hx of Infectious Diseases: None - Tetanus Immunization Tetanus Immunization: Unknown - Cardiac Hx Cardiac Disorders: Yes Hx Congestive Heart Failure: Yes Hx Hypertension: Yes - Pulmonary Hx Respiratory Disorders: Yes Hx Asthma: Yes Hx Chronic Obstructive Pulmonary Disease (COPD): Yes - Neurological Hx Neurological Disorder: No - HEENT Hx HEENT Disorder: No - Renal Hx Renal Disorder: Yes - Endocrine/Metabolic Hx Endocrine Disorders: No - Hematological/Oncological Hx Blood Disorders: Yes Hx Hepatitis C: Yes - Integumentary Hx Dermatological Disorder: No - Musculoskeletal/Rheumatological Hx Musculoskeletal Disorders: No Hx Falls: No - Gastrointestinal Hx Gastrointestinal Disorders: Yes Hx Pancreatitis: Yes - Genitourinary/Gynecological Hx Genitourinary Disorders: Yes Hx Sexually Transmitted Diseases: Yes - Psychiatric Hx Psychophysiologic Disorder: Yes Hx Anxiety: Yes Hx Depression: Yes Hx Substance Use: Yes - Surgical History Hx Appendectomy: Yes Other/Comment: tonsillectomy - Anesthesia Hx Anesthesia: Yes Hx Anesthesia Reactions: No Hx Malignant Hyperthermia: No - Suicidal Assessment Feels Threatened In Home Enviroment: No Family/Social History - Physician Review Nursing Documentation Reviewed: Yes Family/Social History: No Known Family HX Smoking Status: Current Some Days Smoker Hx Alcohol Use: Yes Hx Substance Use: Yes Substance used: heroin Hx Substance Use Treatment: Yes Allergies/Home Meds Allergies/Adverse Reactions: Allergies No Known Allergies Allergy (Verified 09/25/17 21:56) Review of Systems - Physician Review All systems were reviewed & negative as marked: Yes - Review of Systems Constitutional: absent: Fevers Respiratory: SOB Gastrointestinal: absent: Abdominal Pain, Diarrhea, Nausea, Vomiting Musculoskeletal: absent: Back Pain, Neck Pain Neurological: absent: Headache, Dizziness Physical Exam - Physical Exam Narrative Physical Exam (Text): 11/15/17 19:17 Gen: VS reviewed, alert, well developed, well nourished, nontoxic, mild distress. ENT: normal pharynx. Eye: EOMI, PERRL. Neck: no JVD, supple, no adenopathy. CV: regular rate, regular rhythm, no rubs, no murmur, no gallops, S1, S2, pulses equal and strong. Pulm: Moderate respiratory distress, tachypnic, accessory muscles use. Clear to auscultation, no wheeze, no rhonchi, no rales. Abd: soft, nontender, no guarding, no rebound, no rigidity, normal bowel sounds. Ext: Trace edema in bilateral lower extremities. Skin: good color, no rash, no cyanosis. Psych: responds appropriately to questions, normal affect. Neuro: oriented x 3, CN2-12 intact grossly, motor intact, sensation intact. Vital Signs Reviewed: Yes Vital Signs Temp Pulse Resp BP Pulse Ox 11/15/17 19:30 24 11/15/17 19:06 98.5 F 124 H 16 98/53 L 95 Temperature: Afebrile Blood Pressure: Normal Pulse: Regular Respiratory Rate: Normal Mental Status: Positive for: Alert and Oriented X 3 Medical Decision Making ED Course and Treatment: 11/15/17 19:19 Impression: Patient is a 47 year old female whose past medical history includes COPD and is currently complaining of dyspnea. Differential Diagnosis included but are not limited to: Plan: --EKG -- Labs -- blood work - Chest X-ray -- Duoneb --Solu-Medrol -- Reassess and disposition Prior Visits: Notes and results from previous visits were reviewed. Progress Notes: 11/15/17 19:19 Patient strongly refused BiPAP treatment. 11/15/17 19:32 EKG: Ordered, reviewed, and independently interpreted the EKG. Rate : 105 BPM Rhythm : Sinus tachycardia Interpretation : Normal QRS, normal access, no ST- and T- wave abnormalities. Comparison : No previous EKG for comparison. 11/15/17 20:15 patient seen for acute dyspnea, wheezing, productive cough with hx copd. 11/15/17 20:55 Discussed case with who is aware of the patient and agrees to admit patient under his care. Patient to be admitted for COPD exacerbation - Lab Interpretations Lab Results: 11/15/17 19:55 11/15/17 19:55 Lab Results 11/15/17 19:55: Beta HCG, Quant < 2.39 11/15/17 19:55: Alcohol, Quantitative 227 H 11/15/17 19:55: Sodium 143, Potassium 3.6, Chloride 104, Carbon Dioxide 26, Anion Gap 17, BUN 15, Creatinine 0.7, Est GFR ( Amer) > 60, Est GFR (Non- Af Amer) > 60, Random Glucose 111 H, Calcium 8.2 L, Magnesium 1.8, Total Bilirubin 0.3, AST 42 H, ALT 35, Alkaline Phosphatase 61, NT-Pro-B Natriuret Pep 48.5, Total Protein 6.4, Albumin 3.5, Globulin 2.9, Albumin/Globulin Ratio 1.2 11/15/17 19:55: WBC 12.4 H, RBC 4.37, Hgb 13.8, Hct 41.1, MCV 94.1 D, MCH 31.6 , MCHC 33.6, RDW 16.2 H, Plt Count 334, MPV 9.9, Gran % 50.8, Lymph % (Auto) 39.6 H, Nance % (Auto) 7.7 H, Eos % (Auto) 1.5, Baso % (Auto) 0.4, Gran # 6.28, Lymph # (Auto) 4.9 H, Nance # (Auto) 1.0 H, Eos # (Auto) 0.2, Baso # (Auto) 0.05 I have reviewed the lab results: Yes - RAD Interpretation Narrative RAD Interpretations (Text): 11/15/17 21:08 cxr my read: no focal infiltrate, no ptx, no pulm vasc congestion Radiology Orders: 11/15/17 19:13 CHEST PORTABLE [RAD] Stat Diploma Maker: ED Physician - Medication Orders Current Medication Orders: Albuterol/Ipratropium (Duoneb 3 Mg/0.5 Mg (3 Ml) Ud) 3 ml IH Q6H JACK Stop: 11/16/17 10:31 Arformoterol Tartrate (Brovana) 15 mcg IH [id number] JACK Budesonide (Pulmicort Respules) 0.25 mg IH [id number] JACK Chlordiazepoxide (Librium) 25 mg PO QID JACK PRN Reason: Protocol Famotidine (Pepcid) 20 mg PO 1000,2200 JACK Folic Acid (Folic Acid) 1 mg PO DAILY JACK Heparin Sodium (Porcine) (Heparin) 5,000 units SC Q12 JACK PRN Reason: Protocol Lorazepam (Ativan) 1 mg IVP Q3 PRN; Protocol PRN Reason: Symptoms of alcohol withdrawl Multivitamins/Minerals (Therapeutic-M Tab) 1 tab PO 0800 [facility] Prednisone (Prednisone Tab) 40 mg PO DAILY JACK Thiamine HCl (Vitamin B1 Tab) 100 mg PO DAILY JACK Discontinued Medications Albuterol/Ipratropium (Duoneb 3 Mg/0.5 Mg (3 Ml) Ud) 3 ml IH Q15M JACK Stop: 11/15/17 19:46 Last Admin: 11/15/17 19:31 Dose: 3 ml Ceftriaxone Sodium (Rocephin 1 Gram Ivpb) 1 gm in 100 mls @ 100 mls/hr IVPB STAT STA PRN Reason: Protocol Stop: 11/15/17 22:03 Azithromycin (Zithromax 500mg In Ns) 500 mg in 250 mls @ 167 mls/hr IVPB STAT STA PRN Reason: Protocol Stop: 11/15/17 22:34 Methylprednisolone (Solu-Medrol) 60 mg IVP STAT STA Stop: 11/15/17 19:14 Last Admin: 11/15/17 20:07 Dose: 60 mg IVP Administration Document 11/15/17 20:07 SS (Rec: 11/15/17 20:07 SS [facility] [place]-[id number]) Charges for Administration # of IVP Administrations 1 - Scribe Statement The provider has reviewed the documentation as recorded by the Scribe Imer Koenig Provider Scribe Attestation: All medical record entries made by the Scribe were at my direction and personally dictated by me. I have reviewed the chart and agree that the record accurately reflects my personal performance of the history, physical exam, medical decision making, and the department course for this patient. I have also personally directed, reviewed, and agree with the discharge instructions and disposition. Disposition/Present on Arrival - Present on Arrival Any Indicators Present on Arrival: No History of DVT/PE: No History of Uncontrolled Diabetes: No Urinary Catheter: No History of Decub. Ulcer: No History Surgical Site Infection Following: None - Disposition Have Diagnosis and Disposition been Completed?: Yes Diagnosis: COPD exacerbation Disposition: HOSPITALIZED Disposition Time: 21:07 Patient Plan: Admission Patient Problems: Current Active Problems Problem Status Onset COPD exacerbation Acute Condition: FAIR
[2017-11-15 20:10] LABS: BASO # 0.05 K/mm3 (0.0-2.0); BASO % 0.4 % (0.0-3.0); EOS # 0.2 (0.0-0.7); EOS % 1.5 % (1.5-5.0); GRAN # 6.28 (1.4-6.5); GRAN % 50.8 % (50.0-68.0); HEMOGLOBIN 13.8 g/dL (12.0-16.0); LYMPH # 4.9 (1.2-3.4); LYMPH % 39.6 % (22.0-35.0); MEAN CELL VOLUME 94.1 fl (80.0-105.0); MEAN CORPUSCULAR HEMOGLOBIN 31.6 pg (25.0-35.0); MEAN CORPUSCULAR HGB CONC 33.6 g/dl (31.0-37.0); MEAN PLATELET VOLUME 9.9 fl (7.0-11.0); MONO % 7.7 % (1.0-6.0); RBC 4.37 10^6/uL (3.5-6.1); RED CELL DISTRIBUTION WIDTH 16.2 % (11.5-14.5); WHITE BLOOD COUNT 12.4 10^3/ul (4.5-11.0)
[2017-11-15 20:17] LABS: ALB/GLOB RATIO 1.2 (1.1-1.8); ALBUMIN 3.5 g/dL (3.0-4.8); ALT/SGPT 35 U/L (7-56); AST/SGOT 42 U/L (14-36); BLOOD UREA NITROGEN 15 mg/dL (7-21); CALCIUM 8.2 mg/dL (8.4-10.5); GFR AFRICAN-AMERICAN > 60; GFR NON-AFRICAN AMERICAN > 60
[2017-11-15 20:26] LABS: B-TYPE NATRIURETIC PEPTIDE 48.5 pg/mL (0-450)
[2017-11-15] MEDS ORDERED: cefTRIAXone 1 gm 1 GM/100 ML BAG IVPB STA (21:04)
[2017-11-15] MEDS ORDERED: Azithromycin 500MG/NS 250ml 500 MG/250 ML BAG IVPB STA (21:05)
--- NOTE | 2017-11-15 22:40 | CP.PCM.HP ---
<AimeLaureano - Last Filed: 11/16/17 06:45> History of Present Illness - History of Present Illness History of Present Illness: HISTORY & PHYSICAL NOTE FOR HOSPITALIST TEAM Laureano Salomon PGY1 CC: Difficulty breathing, shortness of breath, alcohol intoxication HPI: Pt is a 47 y/o F with pmhx of COPD, asthma, known untreated hepatitis C with cirrhosis, alcohol abuse, IV drug abuse presented to ED with complaints of dyspnea and shortness of breath. Her symptoms began today and progressively worsened after an argument with her . She reports she has frequent wheezing that occurs daily that is relieved by ventolin inhaler and exacerbated when she is stressed. She also reports chest tightness associated with difficulty breathing, however denies palpitations, chest pain on exertion or radiation. She endorses increased abdominal distention and increased leg swelling. Pt had visited ED on 11/13/17 and was d/c with oral predinisone and ventolin however reports not taking the meds. Pt is well known to ED staff and has multiple visits to ER with similar complaints of dyspnea. She reports that she smokes heavily, drinks 4-8 24oz alcoholic drinks daily and is currently homeless. She claims to have stopped taking IV heroin . She is present with her cousin, whom she stays with intermittently. Pt denies fevers, chills, chest pain, confusion, headache, dizziness, abdominal pain, nausea, vomiting, diarrhea , dysuria. Pmhx: COPD, Asthma, Hep C w/ cirrhosis, PSH: apendectomy, tonsillectomy Famhx: Father- DM2 Socialhx: Heavy tobacco use, 4-8 24oz "four frances" drinks/day, previous IV & snorting heroin, homeless, Allergies: NKDA PMD: None Meds: As per MAR Present on Admission - Present on Admission Any Indicators Present on Admission: No Review of Systems - Review of Systems Review of Systems: As per HPI otherwise negative Past Patient History - Infectious Disease Hx of Infectious Diseases: None - Tetanus Immunizations Tetanus Immunization: Unknown - Past Medical History & Family History Past Medical History?: Yes - Past Social History Smoking Status: Current Some Days Smoker - CARDIAC Hx Cardiac Disorders: Yes Hx Congestive Heart Failure: Yes Hx Hypertension: Yes - PULMONARY Hx Respiratory Disorders: Yes Hx Asthma: Yes Hx Chronic Obstructive Pulmonary Disease (COPD): Yes - NEUROLOGICAL Hx Neurological Disorder: No - HEENT Hx HEENT Problems: No - RENAL Hx Chronic Kidney Disease: Yes - ENDOCRINE/METABOLIC Hx Endocrine Disorders: No - HEMATOLOGICAL/ONCOLOGICAL Hx Blood Disorders: Yes Hx Hepatitis C: Yes - INTEGUMENTARY Hx Dermatological Problems: No - MUSCULOSKELETAL/RHEUMATOLOGICAL Hx Musculoskeletal Disorders: No Hx Falls: No - GASTROINTESTINAL Hx Gastrointestinal Disorders: Yes Hx Pancreatitis: Yes - GENITOURINARY/GYNECOLOGICAL Hx Genitourinary Disorders: Yes Hx Sexually Transmitted Disorders: Yes - PSYCHIATRIC Hx Psychophysiologic Disorder: Yes Hx Anxiety: Yes Hx Depression: Yes Hx Substance Use: Yes - SURGICAL HISTORY Hx Appendectomy: Yes Hx Tonsillectomy: Yes Other/Comment: tonsillectomy - ANESTHESIA Hx Anesthesia: Yes Hx Anesthesia Reactions: No Hx Malignant Hyperthermia: No Meds Allergies/Adverse Reactions: Allergies Allergy/AdvReac Type Severity Reaction Status Date / Time No Known Allergies Allergy Verified 09/25/17 21:56 Physical Exam - Constitutional Appears: Non-toxic, No Acute Distress - Head Exam Head Exam: NORMAL INSPECTION - Eye Exam Eye Exam: Normal appearance - ENT Exam ENT Exam: Mucous Membranes Moist - Neck Exam Neck exam: Positive for: Normal Inspection - Respiratory Exam Respiratory Exam: Wheezes, NORMAL BREATHING PATTERN - Cardiovascular Exam Cardiovascular Exam: Tachycardia, +S1, +S2 - GI/Abdominal Exam GI & Abdominal Exam: Distended, Soft. absent: Tenderness Additional comments: (-) shifting dullness to percussion - Extremities Exam Extremities exam: Positive for: pedal edema. Negative for: calf tenderness - Neurological Exam Neurological exam: Alert, CN II-XII Intact, Normal Gait, Oriented x3 - Psychiatric Exam Psychiatric exam: Normal Affect, Normal Mood - Skin Skin Exam: Rash (maculopapular rash along pretibial region) Results - Vital Signs Recent Vital Signs: Last Vital Signs Temp 98.5 F 11/15/17 19:06 Pulse 124 H 11/15/17 19:06 Resp 24 11/15/17 19:30 BP 98/53 L 11/15/17 19:06 Pulse Ox 95 11/15/17 19:06 - Labs Result Diagrams: 11/15/17 19:55 11/15/17 19:55 Assessment & Plan - Assessment and Plan (Free Text) Assessment: 47 y/o F with pmhx of COPD, asthma, Hep C w/ cirrhosis, alcohol abuse, IV drug abuse admitted for COPD exacerbation, shortness of breath and dyspnea. Pt is a heavy alcohol user and is at risk for withdrawals and is homeless. Pt found to have leukocytosis, afebrile. Plan: 1. COPD Exacerbation - Likely due to heavy smoking. Advised on cessation - Prednisone 40 mg qd - Duoneb q6h craig - Pulmicort 0.25mg Q12hr - continue antibiotics 2. Alcohol Withdrawal - Pt drinks 4-8 24oz "four frances"-15% alcohol drinks/day - Advised on alcohol cessation - Blood alcohol 227 in ER - Librium 25mg qid - ativan 1 mg q3hr prn - Thiamine 100mg po daily - Folic acid 1mg/day - Multivitamin - CIWA protocol - Psychiatry consult: alcohol withdrawal tx - Seizure precautions 3. History of IV/Heroin abuse - Urine drug screen - monitor for withdrawals - Advised on cessation 4. Transaminitis - likely due to alcohol abuse, hepatitis C - avoid hepatotoxins 5. Tobacco use disorder - Offered and encouraged cessation - offered nicoderm patch GI/DVT/Diet: pepcid/Hep/Reg Case discussed with and reviewed with attending physician. Dr. Irvin <Alex Irvin P - Last Filed: 11/16/17 07:04> Results - Vital Signs Recent Vital Signs: Last Vital Signs Temp 98.1 F 11/16/17 06:00 Pulse 74 11/16/17 06:35 Resp 20 11/16/17 06:00 BP 142/95 H 11/16/17 06:00 Pulse Ox 98 11/16/17 06:00 - Labs Result Diagrams: 11/15/17 19:55 11/15/17 19:55 Attending/Attestation - Attestation I have personally seen and examined this patient.: Yes I have fully participated in the care of the patient.: Yes I have reviewed all pertinent clinical information: Yes Notes (Text): 11/16/17 06:54 COPD exacerbation Alcohol abuse Non compliance with medication Active tobacco and alcohol abuse Hep C likely has cirrhosis, not treated for hepc Ex IVDA, mentions not doing now Homeless Chronic leg edema. Plan Systemic steroid Duoneb, pulmicor BZD craig and prn Thiamine, mvt, fa Gi/DVT prophylaxis Social service eval Psych eval for anxiety, depression, alcoholism See orders for detail.
[2017-11-16] MEDS: Albuterol-Ipratrop 3 mg / 0.5 (3 ml) UD IH SCH ×2 (06:30→19:25)
[2017-11-16 06:53] LABS: GRAN # 6.01 (1.4-6.5); GRAN % 83.9 % (50.0-68.0); HEMOGLOBIN 13.4 g/dL (12.0-16.0); LYMPH % 13.9 % (22.0-35.0); MEAN CELL VOLUME 93.3 fl (80.0-105.0); MEAN CORPUSCULAR HEMOGLOBIN 30.7 pg (25.0-35.0); MEAN CORPUSCULAR HGB CONC 32.9 g/dl (31.0-37.0); MEAN PLATELET VOLUME 10.3 fl (7.0-11.0); MONO # 0.2 (0.1-0.6); MONO % 2.2 % (1.0-6.0); RBC 4.36 10^6/uL (3.5-6.1); RED CELL DISTRIBUTION WIDTH 16.1 % (11.5-14.5); WHITE BLOOD COUNT 7.2 10^3/ul (4.5-11.0)
[2017-11-16 07:17] LABS: LDL CHOLESTEROL 53 mg/dL (0-129)
--- NOTE | 2017-11-16 07:26 | RAD ---
Date of service: 11/15/2017 HISTORY: dyspnea COMPARISON: 10/01/2017 FINDINGS: LUNGS: No active pulmonary disease. PLEURA: No significant pleural effusion identified, no pneumothorax apparent. CARDIOVASCULAR: Normal. OSSEOUS STRUCTURES: No significant abnormalities. VISUALIZED UPPER ABDOMEN: Normal. OTHER FINDINGS: None. IMPRESSION: No active disease.
[2017-11-16 07:30] LABS: ALB/GLOB RATIO 1.2 (1.1-1.8); ALBUMIN 3.6 g/dL (3.0-4.8); ALT/SGPT 37 U/L (7-56); AST/SGOT 34 U/L (14-36); BLOOD UREA NITROGEN 11 mg/dL (7-21); CALCIUM 8.5 mg/dL (8.4-10.5); GFR AFRICAN-AMERICAN > 60; GFR NON-AFRICAN AMERICAN > 60; HDL CHOLESTEROL 70 mg/dL (29-60)
[2017-11-16 07:40] LABS: HDL CHOLESTEROL 71 mg/dL (29-60)
[2017-11-16] MEDS: Budesonide 0.25 mg/2 ml Inhal Susp UD IH SCH ×2 (07:40→19:24)
[2017-11-16] MEDS: Arformoterol 15 mcg/2 ml Inh Sol IH SCH ×2 (07:40→19:24)
--- NOTE | 2017-11-16 07:44 | CP.PCM.PN ---
<Jose Escalona - Last Filed: 11/16/17 13:49> Subjective - Date & Time of Evaluation Date of Evaluation: 11/16/17 Time of Evaluation: 06:30 - Subjective Subjective: Jose Escalona PGY1 Progress Note for Dr. Moraes 47F seen and evaluated this morning at bedside. No acute events overnight. Patient slept throughout the night. Still complaining of a dry cough and difficulty breathing this morning that is improved from yesterday. Respiratory did not administer any breathing treatments overnight. Noticed she is having tremors this morning and asked the nurse for an Ativan. Denies fever, chills, chest pain, palpitations, nausea, vomiting. Objective - Vital Signs/Intake and Output Vital Signs (last 24 hours): Temp Pulse Resp BP Pulse Ox 98.1 F 74 20 142/95 H 98 11/16/17 06:00 11/16/17 06:35 11/16/17 06:00 11/16/17 06:00 11/16/17 06:00 Intake and Output: 11/16/17 11/16/17 06:59 18:59 Intake Total 1060 Output Total 1000 Balance 60 - Medications Medications: Current Medications Albuterol/Ipratropium (Duoneb 3 Mg/0.5 Mg (3 Ml) Ud) 3 ml IH Q6H [facility] Stop: 11/16/17 10:31 Last Admin: 11/16/17 06:30 Dose: 3 ml Arformoterol Tartrate (Brovana) 15 mcg IH [id number] [facility] Last Admin: 11/16/17 07:40 Dose: 15 mcg Budesonide (Pulmicort Respules) 0.25 mg IH [id number] [facility] Last Admin: 11/16/17 07:40 Dose: 0.25 mg Chlordiazepoxide (Librium) 25 mg PO QID JACK PRN Reason: Protocol Famotidine (Pepcid) 20 mg PO 1000,2200 [facility] Folic Acid (Folic Acid) 1 mg PO DAILY [facility] Heparin Sodium (Porcine) (Heparin) 5,000 units SC Q12 JACK PRN Reason: Protocol Ceftriaxone Sodium (Rocephin 1 Gram Ivpb) 1 gm in 100 mls @ 100 mls/hr IVPB DAILY JACK PRN Reason: Protocol Azithromycin (Zithromax 500mg In Ns) 500 mg in 250 mls @ 167 mls/hr IVPB DAILY JACK PRN Reason: Protocol Lorazepam (Ativan) 1 mg IVP Q3 PRN; Protocol PRN Reason: Symptoms of alcohol withdrawl Last Admin: 11/16/17 06:46 Dose: 1 mg Multivitamins/Minerals (Therapeutic-M Tab) 1 tab PO 0800 [facility] Nicotine (Nicoderm Cq) 1 patch TD DAILY JACK Prednisone (Prednisone Tab) 40 mg PO DAILY JACK Thiamine HCl (Vitamin B1 Tab) 100 mg PO DAILY JACK - Labs Labs: 11/16/17 05:45 11/16/17 05:45 APTT 25.5 Seconds (25.1-36.5) 11/16/17 05:45 - Constitutional Appears: No Acute Distress, Unkempt, Older Than Stated Age - Head Exam Head Exam: ATRAUMATIC, NORMAL INSPECTION, NORMOCEPHALIC - Eye Exam Eye Exam: EOMI, Normal appearance - Respiratory Exam Respiratory Exam: Wheezes (expiratory). absent: Accessory Muscle Use, Clear to Ausculation Bilateral, Respiratory Distress - Cardiovascular Exam Cardiovascular Exam: REGULAR RHYTHM, +S1, +S2. absent: Murmur - GI/Abdominal Exam GI & Abdominal Exam: Soft, Normal Bowel Sounds. absent: Tenderness - Rectal Exam Rectal Exam: Deferred - Neurological Exam Neurological Exam: Alert, Awake, Oriented x3 Additional comments: tremulous - Psychiatric Exam Psychiatric exam: Anxious, Normal Mood - Skin Skin Exam: Normal Color, Warm Assessment and Plan - Assessment and Plan (Free Text) Assessment: 47 y/o F, PMH of COPD, asthma, Hep C w/ cirrhosis, alcohol and IV drug abuse, admitted for SOB likely 2/2 an acute COPD exacerbation Plan: 1. COPD Exacerbation - Prednisone 40mg IV QD, Duoneb Q6 JACK, and Pulmicort 0.25mg Q12 - Azithromycin 500mg IV 2. Leukocytosis - Improved from 12.4 to 7.2 today - Antibiotics 3. Alcohol Withdrawal - Advised on alcohol cessation - Ativan 1mg Q3 PRN - Librium 25mg QID - Thiamine 100mg PO QD, Folate 1mg QD, Multivitamin - CIWA protocol - Seizure precautions - Pending director social service eval 4. History of IV Drug Use - Pending urine drug screen - C/w monitoring for withdrawals 5. Transaminitis - Likely 2/2 Hepatitis C w/ cirrhosis and continued alcohol abuse - Pending Abdominal Ultrasound for distention - Advised on cessation 6. Tobacco Abuse - Nicotine patch ordered - Advised cessation DVT PPX - Heparin SC Diet - Heart Healthy Seen and discussed the plan with Dr. Dimitry Escalona PGY1 <Verena Moraes R - Last Filed: 11/17/17 18:45> Objective - Vital Signs/Intake and Output Vital Signs (last 24 hours): Temp Pulse Resp BP Pulse Ox 98.8 F 74 17 119/68 94 L 11/17/17 12:00 11/17/17 12:00 11/17/17 12:00 11/17/17 12:00 11/17/17 06:00 Intake and Output: 11/17/17 11/17/17 06:59 18:59 Intake Total 240 Balance 240 - Medications Medications: Current Medications Arformoterol Tartrate (Brovana) 15 mcg IH [id number] [facility] Last Admin: 11/17/17 08:40 Dose: 15 mcg Budesonide (Pulmicort Respules) 0.25 mg IH [id number] [facility] Last Admin: 11/17/17 08:40 Dose: 0.25 mg Chlordiazepoxide (Librium) 25 mg PO QID [facility] PRN Reason: Protocol Last Admin: 11/17/17 17:29 Dose: 25 mg Famotidine (Pepcid) 20 mg PO 1000,2200 [facility] Last Admin: 11/17/17 10:37 Dose: 20 mg Folic Acid (Folic Acid) 1 mg PO DAILY [facility] Last Admin: 11/17/17 10:37 Dose: 1 mg Heparin Sodium (Porcine) (Heparin) 5,000 units SC Q12 JACK PRN Reason: Protocol Last Admin: 11/17/17 10:37 Dose: 5,000 units Lorazepam (Ativan) 1 mg IVP Q3 PRN; Protocol PRN Reason: Symptoms of alcohol withdrawl Last Admin: 11/17/17 17:06 Dose: 1 mg Methylprednisolone (Solu-Medrol) 40 mg IVP Q12 [facility] Multivitamins/Minerals (Therapeutic-M Tab) 1 tab PO 0800 [facility] Last Admin: 11/17/17 08:19 Dose: 1 tab Nicotine (Nicoderm Cq) 1 patch TD DAILY [facility] Last Admin: 11/17/17 10:36 Dose: 1 patch Thiamine HCl (Vitamin B1 Tab) 100 mg PO DAILY [facility] Last Admin: 11/17/17 10:37 Dose: 100 mg - Labs Labs: 11/17/17 05:30 11/17/17 05:30 APTT 25.3 Seconds (25.1-36.5) 11/17/17 05:30 Attending/Attestation - Attestation I have personally seen and examined this patient.: Yes I have fully participated in the care of the patient.: Yes I have reviewed all pertinent clinical information, including history, physical exam and plan: Yes Notes (Text): Patient seen and examined by me at 11:15AM 11/16/17 with resident. Case including HPI, physical exam, and assessment and plan discussed with resident. Agree with above with following additions/corrections. Patient states that she is not feeling too well. Still feels short of breath. Still complains of feeling "shaky." Patient also complains of abdominal pain states that her belly feels full. Patient drinks alcohol and states that she knows that she needs to stop. She denies any chest pain or palpitations. No nausea or vomiting. No headaches or dizziness. No fevers or chills. No dysuria Gen: Awake and alert, lying in bed in no acute distress. HEENT: Normocephalic, atraumatic. Pupils are equal and reactive. Extraocular muscles intact. No scleral icterus. Poor dentition. Oropharynx is pink and moist. Cardiovascular: Normal S1, S2. No murmurs, rubs, or gallops appreciated Pulmonary: Normal respiratory effort. Decreased breath sounds. Coarse breath sounds. Wheezing throughout. No rales appreciated. Gastrointestinal: Soft, mildly distended, positive mild generalized tenderness, positive bowel sounds all 4 quadrants Musculoskeletal: Normal range of motion all extremities. No calf tenderness Central nervous system: AAOx3. CN 2-12 grossly intact Dermatologic: Skin warm and dry. Assessment and plan: Patient is a 47-year-old female with past medical history of COPD, asthma, known untreated hepatitis C with cirrhosis, alcohol abuse, IV drug abuse that presented to the emergency room with difficulty breathing, shortness of breath, and alcohol intoxication. 1. COPD exacerbation. Continue with nebulizer treatments. Placed on IV Solu- Medrol. Continue with Pulmicort. Chest x-ray per radiologist showed no active disease. Patient counseled on tobacco cessation. O2 via nasal cannula as needed 2. Alcohol intoxication history of alcohol abuse. Patient counseled on cessation. Continue vitamin, thiamine, and folic acid. Continue with CIWA protocol. Taper Librium. 3. Abdominal pain, distention. We'll order abdominal ultrasound. 4. History of IV drug abuse. UDS pending 5. History of untreated hepatitis C. Patient counseled on following up outpatient for treatment 6. Tobacco abuse. Continue NicoDerm patch. Patient counseled on cessation 7. GI/DVT prophylaxis. Pepcid and heparin 8. Patient is a full code. Case was discussed in detail with patient regarding current diagnosis and treatment plan.
[2017-11-16 07:50] LABS: LDL CHOLESTEROL 56 mg/dL (0-129)
[2017-11-16] MEDS: Multivitamin With Minerals Tab PO SCH (08:16)
[2017-11-16] MEDS: cefTRIAXone 1 gm 1 GM/100 ML BAG IVPB SCH (09:31)
--- NOTE | 2017-11-16 09:38 | CARD ---
APPROVED REPORT Date of service: 11/15/2017 EKG Measurement Heart [id number] <Conclusion> Sinus tachycardia Otherwise normal ECG
[2017-11-16] MEDS ORDERED: Azithromycin 500MG/NS 250ml 500 MG/250 ML BAG IVPB SCH (10:00)
--- NOTE | 2017-11-16 13:32 | CP.PCM.PCO ---
Physician Communication Note - Physician Communication Note Physician Communication Note: alcohol withdrawals is not indication for psychiatric consult, d/w
--- NOTE | 2017-11-16 18:14 | US ---
Date of service: 11/16/2017 HISTORY: abdominal distension, rule out ascites COMPARISON: 03/22/2017 TECHNIQUE: Sonographic evaluation of the abdomen. FINDINGS: LIVER: Measures 13.28 x 18.6 cm. Patent portal vein. Portal venous flow: Hepatopetal. Unremarkable echogenicity of the liver parenchyma. No mass. No intrahepatic bile duct dilatation. GALLBLADDER: Cholelithiasis. Negative study for gallbladder wall thickening, pericholecystic fluid, sonographic Keenan's sign. COMMON BILE DUCT: Measures 3.3 mm. No stones. No dilatation. PANCREAS: Unremarkable as visualized. No mass. No ductal dilatation. RIGHT KIDNEY: Measures 4.1 x 12.2cm. Normal echogenicity. No calculus, mass, or hydronephrosis. LEFT KIDNEY: Measures 5.2 x 12.7cm. Normal echogenicity. No calculus, mass, or hydronephrosis. SPLEEN: Normal in size and contour. No mass. AORTA: No aneurysmal dilatation. IVC: Unremarkable. OTHER FINDINGS: None. IMPRESSION: Cholelithiasis. No sonographic evidence of acute cholecystitis. No significant interval change compared to the prior examination(s).
[2017-11-16] MEDS ORDERED: MethylPREDNISolone 40 mg Vial IVP SCH (22:00)
[2017-11-17 06:33] LABS: BASO # 0.01 K/mm3 (0.0-2.0); BASO % 0.1 % (0.0-3.0); GRAN # 14.34 (1.4-6.5); GRAN % 88.4 % (50.0-68.0); HEMOGLOBIN 13.7 g/dL (12.0-16.0); LYMPH # 1.3 (1.2-3.4); MEAN CELL VOLUME 92.5 fl (80.0-105.0); MEAN CORPUSCULAR HEMOGLOBIN 31.1 pg (25.0-35.0); MEAN CORPUSCULAR HGB CONC 33.6 g/dl (31.0-37.0); MEAN PLATELET VOLUME 10.5 fl (7.0-11.0); MONO # 0.6 (0.1-0.6); MONO % 3.5 % (1.0-6.0); RBC 4.41 10^6/uL (3.5-6.1); RED CELL DISTRIBUTION WIDTH 15.9 % (11.5-14.5); WHITE BLOOD COUNT 16.2 10^3/ul (4.5-11.0)
[2017-11-17 07:03] LABS: ALB/GLOB RATIO 1.2 (1.1-1.8); ALBUMIN 3.4 g/dL (3.0-4.8); ALT/SGPT 40 U/L (7-56); AST/SGOT 21 U/L (14-36); BLOOD UREA NITROGEN 15 mg/dL (7-21); GFR AFRICAN-AMERICAN > 60; GFR NON-AFRICAN AMERICAN > 60
--- NOTE | 2017-11-17 07:06 | CP.PCM.PN ---
Subjective - Date & Time of Evaluation Date of Evaluation: 11/17/17 Time of Evaluation: 07:05 - Subjective Subjective: Jose Escalona PGY1 Progress Note for Dr. Verena Moraes 47F seen and evaluated this morning at bedside. No acute events overnight. Patient resting comfortably in bed. States she slept well overnight. Her shortness of breath has improved, however the dry cough still persists. Breathing treatments help with alleviating symptoms. She is still complaining of abdominal fullness and diffuse pain in the abdomen. Her tremors have also decreased. Denies fever, chills, nausea, vomiting, diarrhea, chest pain, palpitations, headache, dizziness, or urinary symptoms. Objective - Vital Signs/Intake and Output Vital Signs (last 24 hours): Temp Pulse Resp BP Pulse Ox 98 F 61 20 146/84 94 L 11/17/17 06:00 11/17/17 06:00 11/17/17 06:00 11/17/17 06:00 11/17/17 06:00 Intake and Output: 11/17/17 11/17/17 06:59 18:59 Intake Total 240 Balance 240 - Medications Medications: Current Medications Arformoterol Tartrate (Brovana) 15 mcg IH [id number] [facility] Last Admin: 11/16/17 19:24 Dose: 15 mcg Budesonide (Pulmicort Respules) 0.25 mg IH [id number] [facility] Last Admin: 11/16/17 19:24 Dose: 0.25 mg Chlordiazepoxide (Librium) 25 mg PO QID [facility] PRN Reason: Protocol Last Admin: 11/16/17 22:02 Dose: 25 mg Famotidine (Pepcid) 20 mg PO 1000,2200 [facility] Last Admin: 11/16/17 22:02 Dose: 20 mg Folic Acid (Folic Acid) 1 mg PO DAILY [facility] Last Admin: 11/16/17 09:31 Dose: 1 mg Heparin Sodium (Porcine) (Heparin) 5,000 units SC Q12 [facility] PRN Reason: Protocol Last Admin: 11/16/17 22:02 Dose: 5,000 units Ceftriaxone Sodium (Rocephin 1 Gram Ivpb) 1 gm in 100 mls @ 100 mls/hr IVPB DAILY [facility] PRN Reason: Protocol Last Admin: 11/16/17 09:31 Dose: 100 mls/hr Azithromycin (Zithromax 500mg In Ns) 500 mg in 250 mls @ 167 mls/hr IVPB DAILY [facility] PRN Reason: Protocol Last Admin: 11/16/17 09:33 Dose: 167 mls/hr Lorazepam (Ativan) 1 mg IVP Q3 PRN; Protocol PRN Reason: Symptoms of alcohol withdrawl Last Admin: 11/16/17 22:11 Dose: 1 mg Methylprednisolone (Solu-Medrol) 40 mg IVP Q12 [facility] Last Admin: 11/16/17 22:02 Dose: 40 mg Multivitamins/Minerals (Therapeutic-M Tab) 1 tab PO 0800 [facility] Last Admin: 11/16/17 08:16 Dose: 1 tab Nicotine (Nicoderm Cq) 1 patch TD DAILY [facility] Last Admin: 11/16/17 09:33 Dose: 1 patch Thiamine HCl (Vitamin B1 Tab) 100 mg PO DAILY [facility] Last Admin: 11/16/17 09:31 Dose: 100 mg - Labs Labs: 11/17/17 05:30 11/17/17 05:30 APTT 25.3 Seconds (25.1-36.5) 11/17/17 05:30 - Constitutional Appears: Well, Non-toxic, No Acute Distress, Unkempt, Older Than Stated Age - Head Exam Head Exam: ATRAUMATIC, NORMAL INSPECTION, NORMOCEPHALIC - Eye Exam Eye Exam: EOMI, Normal appearance Pupil Exam: PERRL - ENT Exam ENT Exam: Mucous Membranes Moist, Normal Exam - Respiratory Exam Respiratory Exam: Clear to Ausculation Bilateral. absent: Wheezes - Cardiovascular Exam Cardiovascular Exam: REGULAR RHYTHM, +S1, +S2. absent: Murmur - GI/Abdominal Exam GI & Abdominal Exam: Soft, Normal Bowel Sounds. absent: Tenderness - Rectal Exam Rectal Exam: Deferred - Neurological Exam Neurological Exam: Alert, Awake, Oriented x3 - Psychiatric Exam Psychiatric exam: Normal Affect, Normal Mood Assessment and Plan - Assessment and Plan (Free Text) Assessment: 47 y/o F, PMH of COPD, asthma, Hep C w/ cirrhosis, alcohol and IV drug abuse, admitted for SOB likely 2/2 an acute COPD exacerbation Plan: 1. COPD Exacerbation - Prednisone 40mg IV Q12, Brovana 15mcg Q12, and Pulmicort 0.25mg Q12 - Discontinued Azithromycin 500mg IV and Rocephin 1gm/100mL IV 2. Leukocytosis - Increased from 7.2 to 16.2 today likely secondary to steroid administration 3. Alcohol Withdrawal - Advised on alcohol cessation - Ativan 1mg Q3 PRN - Librium 25mg QID - Thiamine 100mg PO QD, Folate 1mg QD, Multivitamin - CIWA protocol - 0 today - Discontinued telemetry - Seizure precautions - Human Resources Designate will give Alcoholics Anonymous and [facility] information upon discharge 4. History of IV Drug Use - Pending urine drug screen - Monitoring for withdrawals 5. Transaminitis - Likely secondary to Hepatitis C w/ cirrhosis and continued alcohol abuse - Abdominal Ultrasound: cholelithiasis, no cholecystitis - Advised on alcohol cessation 6. Tobacco Abuse - Nicotine patch ordered - Advised cessation DVT PPX - Heparin SC Diet - Heart Healthy Seen and discussed the plan with Dr. Dimitry Escalona PGY1
[2017-11-17] MEDS: Multivitamin With Minerals Tab PO SCH (08:19)
[2017-11-17] MEDS: Arformoterol 15 mcg/2 ml Inh Sol IH SCH ×2 (08:40→19:56)
[2017-11-17] MEDS: Budesonide 0.25 mg/2 ml Inhal Susp UD IH SCH ×2 (08:40→19:57)
[2017-11-17] MEDS: cefTRIAXone 1 gm 1 GM/100 ML BAG IVPB SCH (10:35)
[2017-11-17] MEDS: MethylPREDNISolone 40 mg Vial IVP SCH (22:35)
[2017-11-18 07:38] LABS: ALB/GLOB RATIO 1.1 (1.1-1.8); ALBUMIN 3.6 g/dL (3.0-4.8); ALT/SGPT 29 U/L (7-56); AST/SGOT 20 U/L (14-36); BLOOD UREA NITROGEN 18 mg/dL (7-21); CALCIUM 8.7 mg/dL (8.4-10.5); GFR AFRICAN-AMERICAN > 60; GFR NON-AFRICAN AMERICAN > 60
[2017-11-18] MEDS: Budesonide 0.25 mg/2 ml Inhal Susp UD IH SCH ×2 (08:03→21:26)
[2017-11-18] MEDS: Arformoterol 15 mcg/2 ml Inh Sol IH SCH ×2 (08:03→21:26)
[2017-11-18 08:18] LABS: BASO # 0.01 K/mm3 (0.0-2.0); BASO % 0.1 % (0.0-3.0); GRAN # 13.13 (1.4-6.5); HEMOGLOBIN 15.2 g/dL (12.0-16.0); LYMPH # 2.1 (1.2-3.4); LYMPH % 12.8 % (22.0-35.0); MEAN CELL VOLUME 92.8 fl (80.0-105.0); MEAN CORPUSCULAR HEMOGLOBIN 31.2 pg (25.0-35.0); MEAN CORPUSCULAR HGB CONC 33.6 g/dl (31.0-37.0); MEAN PLATELET VOLUME 10.9 fl (7.0-11.0); MONO % 6.1 % (1.0-6.0); RBC 4.87 10^6/uL (3.5-6.1); RED CELL DISTRIBUTION WIDTH 15.8 % (11.5-14.5); WHITE BLOOD COUNT 16.2 10^3/ul (4.5-11.0)
[2017-11-18 08:52] VITALS: RESP 20
[2017-11-18] MEDS ORDERED: MethylPREDNISolone 40 mg Vial IVP SCH (10:00)
[2017-11-18] MEDS: Multivitamin With Minerals Tab PO SCH (10:25)
[2017-11-18] MEDS: MethylPREDNISolone 40 mg Vial IVP SCH ×2 (10:25→21:32)
--- NOTE | 2017-11-18 12:11 | CP.PCM.PN ---
<Joselin Gu - Last Filed: 11/18/17 12:13> Subjective - Date & Time of Evaluation Date of Evaluation: 11/18/17 Time of Evaluation: 12:08 - Subjective Subjective: Joselin Gu PGY1 Progress note for Dr. Verena Moraes Ms. Chambers was examined at bedside this morning. She complained of shortness of breath overnight and a productive cough with yellow sputum. She denied any chest pain, dizziness, abdominal pain, nausea, or vomiting. Objective - Vital Signs/Intake and Output Vital Signs (last 24 hours): Temp Pulse Resp BP Pulse Ox 97.3 F L 63 20 134/94 H 98 11/18/17 06:00 11/18/17 06:00 11/18/17 06:00 11/18/17 06:00 11/18/17 06:00 Intake and Output: 11/18/17 11/18/17 06:59 18:59 Intake Total 400 Balance 400 - Medications Medications: Current Medications Arformoterol Tartrate (Brovana) 15 mcg IH [id number] [facility] Last Admin: 11/18/17 08:03 Dose: Not Given Budesonide (Pulmicort Respules) 0.25 mg IH [id number] [facility] Last Admin: 11/18/17 08:03 Dose: Not Given Famotidine (Pepcid) 20 mg PO 1000,2200 [facility] Last Admin: 11/18/17 10:25 Dose: 20 mg Folic Acid (Folic Acid) 1 mg PO DAILY [facility] Last Admin: 11/18/17 10:25 Dose: 1 mg Heparin Sodium (Porcine) (Heparin) 5,000 units SC Q12 [facility]ACK PRN Reason: Protocol Last Admin: 11/18/17 10:25 Dose: 5,000 units Lorazepam (Ativan) 1 mg IVP Q3 PRN; Protocol PRN Reason: Symptoms of alcohol withdrawl Last Admin: 11/18/17 06:58 Dose: 1 mg Methylprednisolone (Solu-Medrol) 40 mg IVP Q12 [facility] Last Admin: 11/18/17 10:25 Dose: 40 mg Multivitamins/Minerals (Therapeutic-M Tab) 1 tab PO 0800 [facility] Last Admin: 11/18/17 10:25 Dose: 1 tab Nicotine (Nicoderm Cq) 1 patch TD DAILY [facility] Last Admin: 11/18/17 10:25 Dose: 1 patch Thiamine HCl (Vitamin B1 Tab) 100 mg PO DAILY [facility] Last Admin: 11/18/17 10:26 Dose: 100 mg - Labs Labs: 11/18/17 06:30 11/18/17 06:30 APTT 26.6 Seconds (25.1-36.5) 11/18/17 06:30 - Constitutional Appears: Well, No Acute Distress, Unkempt - Head Exam Head Exam: ATRAUMATIC, NORMOCEPHALIC - Eye Exam Eye Exam: EOMI, Normal appearance Pupil Exam: NORMAL ACCOMODATION - ENT Exam ENT Exam: Mucous Membranes Moist - Respiratory Exam Respiratory Exam: Clear to Ausculation Bilateral. absent: Rales, Rhonchi, Wheezes, Stridor - Cardiovascular Exam Cardiovascular Exam: REGULAR RHYTHM, +S1, +S2 - GI/Abdominal Exam GI & Abdominal Exam: Soft, Normal Bowel Sounds. absent: Distended, Guarding, Tenderness - Extremities Exam Extremities Exam: Normal Inspection - Back Exam Back Exam: NORMAL INSPECTION - Neurological Exam Neurological Exam: Alert, Awake, Oriented x3 - Skin Skin Exam: Normal Color Assessment and Plan - Assessment and Plan (Free Text) Assessment: 47 y/o F, PMH of COPD, asthma, Hep C w/ cirrhosis, alcohol and IV drug abuse, admitted for SOB likely 2/2 an acute COPD exacerbation Plan: COPD Exacerbation - patient reported shortness of breath with cough overnight - continue Prednisone 40mg IV Q12, Brovana 15mcg Q12, and Pulmicort 0.25mg Q12 - Discontinued Azithromycin 500mg IV and Rocephin 1gm/100mL IV 2. Leukocytosis - WBC remains at 16.2 today - likely secondary to steroid administration 3. Alcohol Withdrawal - Advised on alcohol cessation - Ativan 1mg Q3 PRN - Librium 25mg QID - will d/c librium, rx ativan upon d/c - Thiamine 100mg PO QD, Folate 1mg QD, Multivitamin - CIWA protocol - 0 today - Discontinued telemetry - Seizure precautions - Slot Editor will give Alcoholics Anonymous and [facility] information upon discharge 4. History of IV Drug Use - Pending urine drug screen - Monitoring for withdrawals 5. Transaminitis - Likely secondary to Hepatitis C w/ cirrhosis and continued alcohol abuse - Abdominal Ultrasound: cholelithiasis, no cholecystitis - Advised on alcohol cessation 6. Tobacco Abuse - Nicotine patch ordered - Advised cessation DVT PPX - Heparin SC Diet - Heart Healthy Patient evaluated and reviewed with Dr. Moraes <Verena Moraes R - Last Filed: 11/19/17 17:59> Objective - Vital Signs/Intake and Output Vital Signs (last 24 hours): Temp Pulse Resp BP Pulse Ox 97.4 F L 75 20 119/73 100 11/19/17 06:00 11/19/17 06:00 11/19/17 06:00 11/19/17 06:00 11/19/17 06:00 Intake and Output: 11/19/17 11/19/17 06:59 18:59 Intake Total 360 Balance 360 - Labs Labs: 11/19/17 06:00 11/19/17 06:00 APTT 25.5 Seconds (25.1-36.5) 11/19/17 06:00 Attending/Attestation - Attestation I have personally seen and examined this patient.: Yes I have fully participated in the care of the patient.: Yes I have reviewed all pertinent clinical information, including history, physical exam and plan: Yes Notes (Text): Patient seen and examined by me at 10AM 11/18/17 with resident. Case including HPI , physical exam, and assessment and plan discussed with resident. Agree with above with following additions/corrections. Patient states that she is feeling ok. States she is still feeling short of breath and coughing. Also still with abdominal pain and "fullness." Patient is having bowel movements. No chest pain or palpitations. No nausea or vomiting. No headaches or dizziness. No fevers or chills. No dysuria Gen: Awake and alert, sitting up in bed in no acute distress. HEENT: Normocephalic, atraumatic. Pupils are equal and reactive. Extraocular muscles intact. No scleral icterus. Poor dentition. Oropharynx is pink and moist. Cardiovascular: Normal S1, S2. No murmurs, rubs, or gallops appreciated Pulmonary: Normal respiratory effort. Decreased breath sounds. No wheezing, rales, or rhonchi appreciated. Gastrointestinal: Soft, nondistended, nontender with deep palpation when patient is distracted, positive bowel sounds all 4 quadrants, no guarding. Musculoskeletal: Normal range of motion all extremities. No calf tenderness Central nervous system: AAOx3. CN 2-12 grossly intact Dermatologic: Skin warm and dry. Assessment and plan: Patient is a 47-year-old female with past medical history of COPD, asthma, known untreated hepatitis C with cirrhosis, alcohol abuse, IV drug abuse that presented to the emergency room with difficulty breathing, shortness of breath, and alcohol intoxication. 1. COPD exacerbation. Resolving. Continue with nebulizer treatments. Taper Solu- Medrol. Continue Pulmicort. Continue O2 via nasal cannula as needed. Chest x- ray per radiologist showed no active disease. Patient again counseled on tobacco cessation. 2. Leukocytosis. No signs of infections. Likely secondary to steroids. Continue to monitor. 3. Alcohol intoxication history of alcohol abuse. Patient counseled on cessation. Continue vitamin, thiamine, and folic acid. Continue with CIWA protocol, patient is scoring a zero. Librium stopped. 4. Abdominal pain, distention. Improving. No pain when patient is distracted and abdominal exam is done. Abdominal ultrasound per radiologist shows cholelithiasis. 5. History of IV drug abuse. UDS negative 6. History of untreated hepatitis C. Patient again counseled on following up outpatient for treatment 7. Tobacco abuse. Continue Nicoderm patch. Patient again counseled on cessation 8. GI/DVT prophylaxis. Pepcid and heparin 9. Patient is a full code. Case was discussed in detail with patient regarding current diagnosis and treatment plan.
[2017-11-19 07:02] LABS: BASO # 0.02 K/mm3 (0.0-2.0); BASO % 0.1 % (0.0-3.0); GRAN # 20.47 (1.4-6.5); HEMOGLOBIN 14.9 g/dL (12.0-16.0); LYMPH # 2.1 (1.2-3.4); LYMPH % 8.6 % (22.0-35.0); MEAN CELL VOLUME 93.1 fl (80.0-105.0); MEAN CORPUSCULAR HGB CONC 34.4 g/dl (31.0-37.0); MEAN PLATELET VOLUME 10.8 fl (7.0-11.0); MONO # 1.5 (0.1-0.6); MONO % 6.3 % (1.0-6.0); RBC 4.65 10^6/uL (3.5-6.1); WHITE BLOOD COUNT 24.1 10^3/ul (4.5-11.0)
[2017-11-19 07:29] LABS: ALB/GLOB RATIO 1.2 (1.1-1.8)
[2017-11-19] MEDS: Arformoterol 15 mcg/2 ml Inh Sol IH SCH (07:30)
[2017-11-19] MEDS: Budesonide 0.25 mg/2 ml Inhal Susp UD IH SCH (07:30)
[2017-11-19 07:43] LABS: ALBUMIN 3.4 g/dL (3.0-4.8); ALT/SGPT 33 U/L (7-56); AST/SGOT 19 U/L (14-36); BLOOD UREA NITROGEN 18 mg/dL (7-21); GFR AFRICAN-AMERICAN > 60; GFR NON-AFRICAN AMERICAN > 60
[2017-11-19 08:05] VITALS: BP 119/73; PULSE 75; TEMP 97.4; O2SAT 100
[2017-11-19] MEDS: Multivitamin With Minerals Tab PO SCH (09:29)
--- NOTE | 2017-11-19 09:46 | CP.PCM.DIS ---
Provider - Provider Date of Admission: 11/15/17 21:05 Attending physician: Verena Moraes DO Time Spent in preparation of Discharge (in minutes): 45 Hospital Course - Lab Results Lab Results: Micro Results 11/15/17 21:30 Blood-Venous Blood Culture - Preliminary NO GROWTH AFTER 3 DAYS Most Recent Lab Values WBC 24.1 10^3/ul (4.5-11.0) H D 11/19/17 06:00 RBC 4.65 10^6/uL (3.5-6.1) 11/19/17 06:00 Hgb 14.9 g/dL (12.0-16.0) 11/19/17 06:00 Hct 43.3 % (36.0-48.0) 11/19/17 06:00 MCV 93.1 fl (80.0-105.0) 11/19/17 06:00 MCH 32.0 pg (25.0-35.0) 11/19/17 06:00 MCHC 34.4 g/dl (31.0-37.0) 11/19/17 06:00 RDW 16.0 % (11.5-14.5) H 11/19/17 06:00 Plt Count 372 10^3/uL (120.0-450.0) 11/19/17 06:00 MPV 10.8 fl (7.0-11.0) 11/19/17 06:00 Gran % 85.0 % (50.0-68.0) H 11/19/17 06:00 Lymph % (Auto) 8.6 % (22.0-35.0) L 11/19/17 06:00 [place]ock % (Auto) 6.3 % (1.0-6.0) H 11/19/17 06:00 Eos % (Auto) 0.0 % (1.5-5.0) L 11/19/17 06:00 Baso % (Auto) 0.1 % (0.0-3.0) 11/19/17 06:00 Gran # 20.47 (1.4-6.5) H 11/19/17 06:00 Lymph # (Auto) 2.1 (1.2-3.4) 11/19/17 06:00 [place]ock # (Auto) 1.5 (0.1-0.6) H 11/19/17 06:00 Eos # (Auto) 0.0 (0.0-0.7) 11/19/17 06:00 Baso # (Auto) 0.02 K/mm3 (0.0-2.0) 11/19/17 06:00 APTT 25.5 Seconds (25.1-36.5) 11/19/17 06:00 Sodium 138 mmol/L (132-148) 11/19/17 06:00 Potassium 4.8 mmol/L (3.6-5.0) 11/19/17 06:00 Chloride 101 mmol/L (98-107) 11/19/17 06:00 Carbon Dioxide 27 mmol/L (21-33) 11/19/17 06:00 Anion Gap 14 (10-20) 11/19/17 06:00 BUN 18 mg/dL (7-21) 11/19/17 06:00 Creatinine 0.5 mg/dl (0.7-1.2) L 11/19/17 06:00 Est GFR ( Amer) > 60 11/19/17 06:00 Est GFR (Non-Af Amer) > 60 11/19/17 06:00 Random Glucose 169 mg/dL (70-110) H 11/19/17 06:00 Calcium 9.0 mg/dL (8.4-10.5) 11/19/17 06:00 Phosphorus 4.5 mg/dL (2.5-4.5) 11/19/17 06:00 Magnesium 2.2 mg/dL (1.7-2.2) 11/19/17 06:00 Total Bilirubin 0.3 mg/dL (0.2-1.3) 11/19/17 06:00 AST 19 U/L (14-36) 11/19/17 06:00 ALT 33 U/L (7-56) 11/19/17 06:00 Alkaline Phosphatase 69 U/L (38-126) 11/19/17 06:00 NT-Pro-B Natriuret Pep 48.5 pg/mL (0-450) 11/15/17 19:55 Total Protein 6.2 g/dL (5.8-8.3) 11/19/17 06:00 Albumin 3.4 g/dL (3.0-4.8) 11/19/17 06:00 Globulin 2.8 gm/dL 11/19/17 06:00 Albumin/Globulin Ratio 1.2 (1.1-1.8) 11/19/17 06:00 Triglycerides 83 mg/dL (35-160) 11/16/17 05:45 Cholesterol 142 mg/dL (130-200) 11/16/17 05:45 LDL Cholesterol Direct 56 mg/dL (0-129) 11/16/17 05:45 HDL Cholesterol 71 mg/dL (29-60) H 11/16/17 05:45 TSH 3rd Generation 0.70 mIU/mL (0.46-4.68) 11/16/17 05:45 Beta HCG, Quant < 2.39 mIU/mL (0-6.15) 11/15/17 19:55 Alcohol, Quantitative 227 mg/dL (0-10) H 11/15/17 19:55 - Hospital Course Hospital Course: Upon Admission 47yo female PMHx COPD, asthma, known untreated Hep C with cirrhosis, alcohol abuse, IV drug abuse presented to the ER complaining of dyspnea. Patient's symptoms began on the day of admission and progressively worsened after an argument with her . She also complained of chest tightness with breathing and a cough but denied any chest pain or palpitations. Patient was seen in the ER on 11/13/17 for similar complaints and discharged on oral prednisone and ventolin, however she reports she never took any of her medications. She also complained of abdominal distention and increased leg swelling. Patient continues to smoke tobacco heavily ad drinks 4-8oz 24oz beers daily. Hospital Course In the ER patient received a STAT duoneb treatment and solumedrol. Her CXR was unremarkable and EKG showed sinus tachycardia. Patient was admitted to Telemetry for COPD exacerbation. Patient was started on COPD medications [ Brovana, Pulmicort, and a Solumedrol taper]. Patient was started on CIWA protocol in light of her alcohol abuse. Patient had an abdominal u/s that had no evidence of ascites and was evident for cholelithiasis with no evidence of acute cholecystitis and no change compared to prior examinations. Patient's leukocytosis was deemed likely secondary to steroids as she was afebrile throughout her hospital stay and had negative blood cultures x 2. Patient clinically improved throughout hospital course and was deemed appropriate for discharge. Upon Discharge Paient prescribed following medications: -Advair 250/50 1 puff inhaled every 12 hours as needed for shortness of breath/ wheezing -Ventolin HFA 90mcg 1 puff inhaled every 12 hours daily -Multivitamin 1 tab by mouth daily -Folic acid 1 tab by mouth daily -Prednisone taper as follows: 40mg for 2 days 30mg for 2 days 20mg for 2 days 10mg for 2 days 5mg for 2 days Patient was advised to follow up at the [facility] within 7 days. To make an appointment please call . If symptoms returned patient was advised to return to the Emergency Room. Instructions discussed in detail with patient who understood and agreed. Discharge Exam - Head Exam Head Exam: ATRAUMATIC, NORMOCEPHALIC - Eye Exam Eye Exam: EOMI, Normal appearance, PERRL. absent: Conjunctival injection Pupil Exam: NORMAL ACCOMODATION, PERRL - ENT Exam ENT Exam: Mucous Membranes Moist - Neck Exam Neck exam: Full Rom, Normal Inspection - Respiratory Exam Respiratory Exam: Clear to PA & Lateral. absent: Accessory Muscle Use, Rales, Rhonchi, Wheezes, Respiratory Distress - Cardiovascular Exam Cardiovascular Exam: REGULAR RHYTHM, +S1, +S2 - GI/Abdominal Exam GI & Abdominal Exam: Normal Bowel Sounds, Soft. absent: Tenderness - Rectal Exam Rectal Exam: Deferred - Extremities Exam Extremities exam: normal capillary refill, normal inspection, pedal pulses present - Back Exam Back exam: NORMAL INSPECTION. absent: rash noted - Neurological Exam Neurological exam: Alert, CN II-XII Intact, Oriented x3 - Psychiatric Exam Psychiatric exam: Normal Affect, Normal Mood - Skin Skin Exam: Dry, Intact, Warm Discharge Plan - Discharge Medications Prescriptions: Albuterol HFA [Ventolin HFA 90 mcg/actuation (8 g)] 2 puff IH [id number] PRN #1 puff PRN Reason: Wheezing Fluticasone/Salmeterol 250/50 [Advair Diskus 250/50] 1 puff IH Q12 #1 puff Folic Acid 1 mg PO DAILY #30 tab Multimineral/Multivitamin [Therapeutic-M Tab] 1 tab PO 0800 #30 tab predniSONE [Prednisone] See Taper PO DAILY #10 tab - Follow Up Plan Condition: FAIR Disposition: HOME/ ROUTINE Instructions: Exacerbation of COPD (DC) Additional Instructions: Upon discharge, please take the following medications as prescribed: -Advair 250/50 1 puff inhaled every 12 hours as needed for shortness of breath/ wheezing -Ventolin HFA 90mcg 1 puff inhaled every 12 hours daily -Multivitamin 1 tab by mouth daily -Folic acid 1 tab by mouth daily -Prednisone taper as follows: 40mg for 2 days 30mg for 2 days 20mg for 2 days 10mg for 2 days 5mg for 2 days Please follow up at the [facility] within 7 days. To make an appointment please call . If symptoms return please return to the Emergency Room.
[2017-11-19] MEDS ORDERED: MethylPREDNISolone 40 mg Vial IVP SCH (10:00)
== END 2017-11-19 13:33 | disposition home or self-care (01) | DRG 88 ==
LOC: ED 18:53 → ERH 21:05 → 2RNO 23:42 → 3RNO 11-17 15:36
PROVIDERS: ADMIT Internal Medicine; ATTEND Hospitalist
PROC: 3E0F7GC Introduction of Other Therapeutic Substance into Respiratory Tract, Via Natural or Artificial Opening (ICD-10-PCS; principal; 2017-11-16)
DX: J44.1 Chronic obstructive pulmonary disease with (acute) exacerbation (principal); B19.20 Unspecified viral hepatitis C without hepatic coma; F10.239 Alcohol dependence with withdrawal, unspecified; K70.30 Alcoholic cirrhosis of liver without ascites; F10.229 Alcohol dependence with intoxication, unspecified; D72.829 Elevated white blood cell count, unspecified; T38.0X5A Adverse effect of glucocorticoids and synthetic analogues, initial encounter; F19.10 Other psychoactive substance abuse, uncomplicated; K80.20 Calculus of gallbladder without cholecystitis without obstruction; Y90.7 Blood alcohol level of 200-239 mg/100 ml; Z59.0 Homelessness; F17.200 Nicotine dependence, unspecified, uncomplicated

== ENCOUNTER 2017-12-11 22:15 | Emergency (ER) | payer MEDICAID ==
[2017-12-11 22:15] VITALS: BMI 24.7
[2017-12-11] MEDS ORDERED: Albuterol-Ipratrop 3 mg / 0.5 (3 ml) UD IH STA ×3 (22:28→22:42)
[2017-12-11] MEDS ORDERED: Magnesium 2 gm/50 ml NS 2 GM/50 ML BAG IVPB ONE (22:30)
--- NOTE | 2017-12-11 22:58 | ED PDOC ---
Arrival/HPI - General Chief Complaint: Shortness Of Breath Time Seen by Provider: 12/11/17 22:28 Historian: Patient - History of Present Illness Narrative History of Present Illness (Text): 12/11/17 22:56 47 year old female, whose past medical history includes COPD and Asthma, presents to the emergency department complaining of shortness of breath and wheezing. Patient ran out of her medications. Patient denies any fever, chills, chest pain, nausea, vomiting, diarrhea, urinary symptoms, back pain, neck pain, headache, dizziness, or any other complaints. Symptom Onset: Gradual Symptom Course: Unchanged Activities at Onset: Light Past Medical History - Provider Review Nursing Documentation Reviewed: Yes - Infectious Disease Hx of Infectious Diseases: None - Tetanus Immunization Tetanus Immunization: Unknown - Cardiac Hx Cardiac Disorders: Yes Hx Congestive Heart Failure: Yes Hx Hypertension: Yes - Pulmonary Hx Respiratory Disorders: Yes Hx Asthma: Yes Hx Chronic Obstructive Pulmonary Disease (COPD): Yes - Neurological Hx Neurological Disorder: No - HEENT Hx HEENT Disorder: No - Renal Hx Renal Disorder: Yes - Endocrine/Metabolic Hx Endocrine Disorders: No - Hematological/Oncological Hx Blood Disorders: Yes Hx Hepatitis C: Yes - Integumentary Hx Dermatological Disorder: No - Musculoskeletal/Rheumatological Hx Musculoskeletal Disorders: No Hx Falls: No - Gastrointestinal Hx Gastrointestinal Disorders: Yes Hx Pancreatitis: Yes - Genitourinary/Gynecological Hx Genitourinary Disorders: Yes Hx Sexually Transmitted Diseases: Yes - Psychiatric Hx Psychophysiologic Disorder: Yes Hx Anxiety: Yes Hx Depression: Yes Hx Substance Use: Yes - Surgical History Hx Appendectomy: Yes Hx Tonsillectomy: Yes Other/Comment: tonsillectomy - Anesthesia Hx Anesthesia: Yes Hx Anesthesia Reactions: No Hx Malignant Hyperthermia: No - Suicidal Assessment Feels Threatened In Home Enviroment: No Family/Social History - Physician Review Nursing Documentation Reviewed: Yes Family/Social History: No Known Family HX Smoking Status: Current Some Days Smoker Hx Alcohol Use: Yes Hx Substance Use: Yes Substance used: heroin Hx Substance Use Treatment: Yes Allergies/Home Meds Allergies/Adverse Reactions: Allergies No Known Allergies Allergy (Verified 09/25/17 21:56) Review of Systems - Physician Review All systems were reviewed & negative as marked: Yes - Review of Systems Constitutional: absent: Fevers, Other (Chills) Respiratory: SOB, Wheezing Cardiovascular: absent: Chest Pain Gastrointestinal: absent: Diarrhea, Nausea, Vomiting Genitourinary Female: absent: Dysuria, Frequency, Hematuria Musculoskeletal: absent: Back Pain, Neck Pain Neurological: absent: Headache, Dizziness Physical Exam Vital Signs Reviewed: Yes Vital Signs Temp Pulse Resp BP Pulse Ox 12/12/17 01:47 22 92 L 12/12/17 01:13 93 H 20 114/62 92 L 12/12/17 00:43 99 H 22 113/66 100 12/12/17 00:28 107 H 22 119/74 100 12/11/17 22:20 97.8 F 110 H 32 H 128/69 85 L Appearance: Positive for: Well-Appearing, Non-Toxic, Comfortable Pain Distress: None Mental Status: Positive for: Alert and Oriented X 3 - Systems Exam Head: Present: Atraumatic, Normocephalic Pupils: Present: PERRL Extroacular Muscles: Present: EOMI Conjunctiva: Present: Normal Mouth: Present: Moist Mucous Membranes Neck: Present: Normal Range of Motion Respiratory/Chest: Present: Respiratory Distress (Mild ), Wheezes (bilaterally) . No: Accessory Muscle Use Cardiovascular: Present: Regular Rate and Rhythm, Normal S1, S2. No: Murmurs Abdomen: No: Tenderness, Distention, Peritoneal Signs Back: Present: Normal Inspection Upper Extremity: Present: Normal Inspection. No: Cyanosis, Edema Lower Extremity: Present: Normal Inspection. No: Edema Neurological: Present: GCS=15, CN II-XII Intact, Speech Normal Skin: Present: Warm, Dry, Normal Color. No: Rashes Psychiatric: Present: Alert, Oriented x 3, Normal Insight, Normal Concentration Medical Decision Making ED Course and Treatment: 12/11/17 23:04 Impression: 47 year old female presents complaining of shortness of breath and wheezing. Plan: -- Douneb, Magnesium Sulfate, Solu-medrol -- Reassess and disposition Prior Visits: Notes and results from previous visits were reviewed. Patient was last seen in the emergency department on 11/15/17 for dyspnea. Patient was admitted. Progress Notes: Patient presents multiple times for respiratory treatment in Emergency room Patient had refused BIPAP placement. Will continue to treat and monitor patient. 12/12/17 05:56 On re-evaluation, patient feels better and is in no acute distress.Patient slept in the emergency room overnight.She is homeless. Patient is breathing easily with no wheezing.States she feels 100% better. I have discussed the results and plan with the patient, who expresses understanding. Patient in agreement with plan to be discharged . Patient is stable for discharge. Patient was instructed to follow up with physician or return if symptoms worsen or new concerning symptoms arise. - Medication Orders Current Medication Orders: Discontinued Medications Albuterol/Ipratropium (Duoneb 3 Mg/0.5 Mg (3 Ml) Ud) 3 ml IH ONCE STA Stop: 12/11/17 22:29 Last Admin: 12/11/17 23:12 Dose: 3 ml Albuterol/Ipratropium (Duoneb 3 Mg/0.5 Mg (3 Ml) Ud) 3 ml IH ONCE STA Stop: 12/11/17 22:32 Last Admin: 12/11/17 23:12 Dose: 3 ml Albuterol/Ipratropium (Duoneb 3 Mg/0.5 Mg (3 Ml) Ud) 3 ml IH ONCE STA Stop: 12/11/17 22:43 Last Admin: 12/11/17 23:12 Dose: 3 ml Magnesium 2 gm/50 ml NS (Magnesium Sulfate 2 Gm/50 Ml Ns) 2 gm in 50 mls @ 50 mls/hr IVPB ONCE ONE Stop: 12/11/17 23:29 Last Admin: 12/11/17 23:12 Dose: 50 mls/hr eMAR Start Stop Document 12/11/17 23:12 IT (Rec: 12/11/17 23:12 IT [id number]) Intravenous Solution Start Date 12/11/17 Start Time 23:12 Methylprednisolone (Solu-Medrol) 125 mg IVP ONCE ONE Stop: 12/11/17 22:30 Last Admin: 12/11/17 23:12 Dose: 125 mg IVP Administration Document 12/11/17 23:12 IT (Rec: 12/11/17 23:12 IT [id number]) Charges for Administration # of IVP Administrations 1 - Scribe Statement The provider has reviewed the documentation as recorded by the Jc Reddy Provider Scribe Attestation: All medical record entries made by the Scribe were at my direction and personally dictated by me. I have reviewed the chart and agree that the record accurately reflects my personal performance of the history, physical exam, medical decision making, and the department course for this patient. I have also personally directed, reviewed, and agree with the discharge instructions and disposition. Disposition/Present on Arrival - Present on Arrival Any Indicators Present on Arrival: No History of DVT/PE: No History of Uncontrolled Diabetes: No Urinary Catheter: No History of Decub. Ulcer: No History Surgical Site Infection Following: None - Disposition Have Diagnosis and Disposition been Completed?: Yes Diagnosis: COPD exacerbation Disposition: HOME/ ROUTINE Disposition Time: 06:29 Patient Plan: Discharge Patient Problems: Current Active Problems Problem Status Onset COPD exacerbation Chronic Condition: GOOD Discharge Instructions (ExitCare): Exacerbation of COPD (DC) Additional Instructions: Medication as prescribed/follow up in clinic this week/any recurrent symptoms return to the emergency room Prescriptions: predniSONE [Prednisone] 60 mg PO DAILY #15 tab Albuterol HFA [Ventolin HFA 90 mcg/actuation (8 g)] 2 puff IH [id number] PRN #1 puff PRN Reason: Wheezing Forms: [employer] (Amharic)
[2017-12-12 06:39] VITALS: BP 112/82; PULSE 88; RESP 17; TEMP 98; O2SAT 94
== END 2017-12-12 06:39 | disposition home or self-care (01) ==
LOC: ED 22:15
DX: J44.1 Chronic obstructive pulmonary disease with (acute) exacerbation (principal); I50.9 Heart failure, unspecified; I10 Essential (primary) hypertension; R06.02 Shortness of breath
CPT/HCPCS: 96374; 96375; 99285; J2930; J3475

== ENCOUNTER 2017-12-30 22:13 | Inpatient (IN) | payer MEDICAID ==
--- NOTE | 2017-12-30 22:38 | ED PDOC ---
Arrival/HPI - General Time Seen by Provider: 12/30/17 22:24 Historian: Patient - History of Present Illness Narrative History of Present Illness (Text): 12/30/17 22:34 A 47 year old female, whose past medical history includes COPD, asthma, known untreated hepatitis C with cirrhosis, alcohol abuse, IV drug abuse, is brought into the emergency department via EMS after being found on a bench in respiratory distress, actively seizing s/p overdose. Patient was seen immediately upon arrival and was given Ativan and Narcan in the emergency department. HPI/ ROS limited due to patient's condition. Time/Duration: Prior to Arrival Symptom Onset: Sudden Symptom Course: Unchanged Activities at Onset: Rest, Light Context: Street Past Medical History - Provider Review Nursing Documentation Reviewed: Yes - Infectious Disease Hx of Infectious Diseases: None - Tetanus Immunization Tetanus Immunization: Unknown - Cardiac Hx Cardiac Disorders: Yes Hx Congestive Heart Failure: Yes Hx Hypertension: Yes - Pulmonary Hx Respiratory Disorders: Yes Hx Asthma: Yes Hx Chronic Obstructive Pulmonary Disease (COPD): Yes - Neurological Hx Neurological Disorder: No - HEENT Hx HEENT Disorder: No - Renal Hx Renal Disorder: Yes - Endocrine/Metabolic Hx Endocrine Disorders: No - Hematological/Oncological Hx Blood Disorders: Yes Hx Hepatitis C: Yes - Integumentary Hx Dermatological Disorder: No - Musculoskeletal/Rheumatological Hx Musculoskeletal Disorders: No Hx Falls: No - Gastrointestinal Hx Gastrointestinal Disorders: Yes Hx Pancreatitis: Yes - Genitourinary/Gynecological Hx Genitourinary Disorders: Yes Hx Sexually Transmitted Diseases: Yes - Psychiatric Hx Psychophysiologic Disorder: Yes Hx Anxiety: Yes Hx Depression: Yes Hx Substance Use: Yes - Surgical History Hx Appendectomy: Yes Hx Tonsillectomy: Yes Other/Comment: tonsillectomy - Anesthesia Hx Anesthesia: Yes Hx Anesthesia Reactions: No Hx Malignant Hyperthermia: No - Suicidal Assessment Feels Threatened In Home Enviroment: No Family/Social History - Physician Review Nursing Documentation Reviewed: Yes Family/Social History: No Known Family HX Smoking Status: Current Some Days Smoker Hx Alcohol Use: Yes Hx Substance Use: Yes Substance used: heroin Hx Substance Use Treatment: Yes Allergies/Home Meds Allergies/Adverse Reactions: Allergies No Known Allergies Allergy (Verified 09/25/17 21:56) Review of Systems - Physician Review All systems were reviewed & negative as marked: Yes - Review of Systems Systems not reviewed;Unavailable: Respiratory Distress Physical Exam Vital Signs Reviewed: Yes Vital Signs Temp Pulse Resp BP Pulse Ox 12/31/17 03:03 90 18 122/80 97 12/31/17 01:42 102 H 20 110/73 98 12/30/17 22:20 97.8 F 102 H 16 125/78 90 L Temperature: Afebrile Blood Pressure: Normal Pulse: Tachycardic Respiratory Rate: Normal Mental Status: Positive for: Alert and Oriented X 3 - Systems Exam Head: Present: Atraumatic, Normocephalic Pupils: Present: PERRL Extroacular Muscles: Present: EOMI Conjunctiva: Present: Normal Mouth: Present: Moist Mucous Membranes Neck: Present: Normal Range of Motion Respiratory/Chest: Present: Clear to Auscultation, Good Air Exchange. No: Respiratory Distress, Accessory Muscle Use Cardiovascular: Present: Regular Rate and Rhythm, Normal S1, S2. No: Murmurs Abdomen: No: Tenderness, Distention, Peritoneal Signs Back: Present: Normal Inspection Upper Extremity: Present: Other (Carpal tunnel spasm bilaterally). No: Edema Lower Extremity: Present: Normal Inspection. No: Edema Neurological: Present: GCS=15, CN II-XII Intact, Speech Normal, Other (Patient actively seizing.) Skin: Present: Warm, Dry. No: Rashes, Normal Color (Cyanotic) Psychiatric: Present: Alert, Oriented x 3, Normal Insight, Normal Concentration Medical Decision Making ED Course and Treatment: 12/30/17 22:36 Impression: A 47 year old female is brought into the emergency department via EMS after being found on a bench in respiratory distress and presents to emergency department seizing s/p overdose. Plan: -- EKG -- Labs -- Urinalysis -- Reassess and disposition Prior Visits: Notes and results from previous visits were reviewed. Progress Notes: 12/30/17 22:51 EKG: Ordered, reviewed, and independently interpreted the EKG. Rate : 113 BPM Rhythm : Sinus Tachycardia Interpretation : Non specific ST- T changes 12/31/17 01:50: Case discussed in detail with certified ophthalmic medical technician and Dr. Garces who accept patient. EXAM: CT Head Without Intravenous Contrast Dictated and Authenticated by: Genaro Freeman MD 12/31/2017 3:00 AM Eastern Time ([place] & [place]) IMPRESSION: No acute CT intracranial abnormalities. - Critical Care Critical Care Minutes: 30 minutes (management of overdose) - Lab Interpretations Lab Results: 12/30/17 22:22 12/31/17 00:39 Lab Results 12/31/17 00:39: Beta HCG, Quant < 2.39 12/31/17 00:39: Alcohol, Quantitative 29 H 12/31/17 00:39: Salicylates < 1 L, Acetaminophen < 10.0 L 12/31/17 00:39: Urine Opiates Screen Positive H, Urine Methadone Screen Negative , Ur Barbiturates Screen Negative, Ur Phencyclidine Scrn Negative, Ur Amphetamines Screen Negative, U Benzodiazepines Scrn Negative, U Oth Cocaine Metabols Negative, U Cannabinoids Screen Negative 12/31/17 00:39: Sodium 139, Chloride 101, Potassium 3.8, Carbon Dioxide 30, Anion Gap 11, BUN 5 L, Creatinine 0.6 L, Est GFR ( Amer) > 60, Est GFR ( Non-Af Amer) > 60, Random Glucose 93, Calcium 8.1 L, Magnesium 1.8, Total Bilirubin 0.3, AST 67 H, ALT 58 H, Alkaline Phosphatase 72, Total Protein 6.3, Albumin 3.5, Globulin 2.8, Albumin/Globulin Ratio 1.2 12/31/17 00:39: Urine Color Yellow, Urine Appearance Clear, Urine pH 5.5, Ur Specific Erick >= 1.030, Urine Protein 30 H, Urine Glucose (UA) Negative, Urine Ketones Negative, Urine Blood Negative, Urine Nitrate Negative, Urine Bilirubin Small H, Urine Urobilinogen 1.0 H, Ur Leukocyte Esterase Negative, Urine RBC 1 - 3, Urine WBC 5 - 10, Ur Epithelial Cells 10 - 12 12/31/17 00:10: pCO2 54 H, pO2 95.0, HCO3 30.5 H, ABG pH 7.36, ABG Total CO2 32.2 H, ABG O2 Saturation 99.0 H, ABG Base Excess 3.7 H, ABG Potassium 3.6, Sodium 136.0, Chloride 104.0, Glucose 96, Lactate 1.3, FiO2 32.0, Arterial Blood Potassium 3.6 12/30/17 22:22: WBC 22.7 H D, RBC 4.59, Hgb 15.1, Hct 45.5, MCV 99.1, MCH 32.9, MCHC 33.2, RDW 15.2 H, Plt Count 474 H, MPV 10.8, Gran % 35.2 L, Lymph % (Auto) 51.2 H, Wharton % (Auto) 10.7 H, Eos % (Auto) 2.5, Baso % (Auto) 0.4, Gran # 7.98 H , Lymph # (Auto) 11.6 H, Wharton # (Auto) 2.4 H, Eos # (Auto) 0.6, Baso # (Auto) 0.09 I have reviewed the lab results: Yes - RAD Interpretation Radiology Orders: 12/30/17 23:40 CHEST PORTABLE [RAD] Stat 12/31/17 00:26 HEAD W/O CONTRAST [CT] Stat - EKG Interpretation Interpreted by ED Physician: Yes Type: 12 lead EKG - Medication Orders Current Medication Orders: Albuterol/Ipratropium (Duoneb 3 Mg/0.5 Mg (3 Ml) Ud) 3 ml IH Q2H PRN PRN Reason: Shortness of Breath Albuterol/Ipratropium (Duoneb 3 Mg/0.5 Mg (3 Ml) Ud) 3 ml IH [id number] JACK Last Admin: 12/31/17 19:40 Dose: 3 ml Folic Acid (Folic Acid) 1 mg PO DAILY JACK Heparin Sodium (Porcine) (Heparin) 5,000 units SC Q12 JACK PRN Reason: Protocol Last Admin: 12/31/17 21:17 Dose: 5,000 units Subcutaneous Administrations Document 12/31/17 21:17 ID (Rec: 12/31/17 21:17 ID [facility] [id number] [place] Injection Site MAR Injection Site Left Abdomen Charges for Administration # of Subcutaneous Administrations 1 Ceftriaxone Sodium (Rocephin 1 Gram Ivpb) 1 gm in 100 mls @ 100 mls/hr IVPB DAILY JACK PRN Reason: Protocol Last Admin: 12/31/17 09:21 Dose: 100 mls/hr eMAR Start Stop Document 12/31/17 09:21 JUR (Rec: 12/31/17 09:21 JUR [id number] [place] Intravenous Solution Start Date 12/31/17 Start Time 09:21 End Date 12/31/17 End time 10:21 Total Infusion Time 60 Azithromycin (Zithromax 500mg In Ns) 500 mg in 250 mls @ 167 mls/hr IVPB DAILY JACK PRN Reason: Protocol Last Admin: 12/31/17 09:55 Dose: 167 mls/hr eMAR Start Stop Document 12/31/17 09:55 JUR (Rec: 12/31/17 09:[address]) Intravenous Solution Start Date 12/31/17 Start Time 09:55 End Date 12/31/17 End time 11:25 Total Infusion Time 90 Dexmedetomidine HCl (Precedex 400mcg/100ml) 400 mcg in 100 mls @ 3.588 mls/hr IV .Q24H PRN; Protocol; 0.2 MCG/KG/HR PRN Reason: Symptoms of alcohol withdrawl Sodium Chloride (Sodium Chloride 0.9%) 1,000 mls @ 100 mls/hr IV .Q10H JACK Last Admin: 12/31/17 18:00 Dose: 100 mls/hr eMAR Start Stop Document 12/31/17 18:00 JUR (Rec: 12/31/17 18:[address]) Intravenous Solution Start Date 12/31/17 Start Time 18:00 Lorazepam (Ativan) 2 mg IVP Q4 PRN; Protocol PRN Reason: Symptoms of alcohol withdrawl Last Admin: 12/31/17 21:17 Dose: 2 mg IVP Administration Document 12/31/17 21:17 ID (Rec: 12/31/17 21:[address]) Charges for Administration # of IVP Administrations 1 Behavioural Document 12/31/17 21:17 ID (Rec: 12/31/17 21:[address]) Maintenance Maintenance Dose No Nonmedicinal Nonmedicinal Interventions Redirect Therapeutic Communication Behavior Behavior for Medication: Anxiety Methylprednisolone (Solu-Medrol) 30 mg IVP Q12 JACK Last Admin: 12/31/17 21:16 Dose: 30 mg IVP Administration Document 12/31/17 21:16 ID (Rec: 12/31/17 21:[address]) Charges for Administration # of IVP Administrations 1 Multivitamins (Thera Tab) 1 tab PO 0800 JACK Pantoprazole Sodium (Protonix Ec Tab) 40 mg PO 0600 JACK Last Admin: 12/31/17 05:22 Dose: 40 mg Thiamine HCl (Vitamin B1 Tab) 100 mg PO DAILY JACK Discontinued Medications Albuterol/Ipratropium (Duoneb 3 Mg/0.5 Mg (3 Ml) Ud) 3 ml IH Q15M [facility] Stop: 12/31/17 01:31 Last Admin: 12/31/17 01:37 Dose: 3 ml Naloxone HCl 2.4 mg/ Sodium (Chloride) 250 mls @ 62.5 mls/hr IV .Q4H ONE PRN Reason: 0.6 MG/HR Stop: 12/31/17 02:41 Last Admin: 12/30/17 23:14 Dose: 62.5 mls/hr eMAR Start Stop Document 12/30/17 23:14 RD (Rec: 12/30/17 23:14 RD [id number]) Intravenous Solution Start Date 12/30/17 Start Time 23:14 Folic Acid 1 mg/ Thiamine HCl 100 mg/ Multivitamins/Vitamin C 10 ml/ Dextrose 1 ,011.2 mls @ 100 mls/hr IV .Q10H7M [facility] Last Admin: 12/31/17 05:00 Dose: 100 mls/hr eMAR Start Stop Document 12/31/17 05:00 MIKAELA (Rec: 12/31/17 05:[address]) Intravenous Solution Start Date 12/31/17 Start Time 05:00 End Date 12/31/17 End time 15:00 Total Infusion Time 600 Lorazepam (Ativan) 1 mg IVP ONCE ONE PRN Reason: Protocol Stop: 12/30/17 22:41 Last Admin: 12/30/17 22:18 Dose: 1 mg IVP Administration Document 12/30/17 22:18 RD (Rec: 12/30/17 23:02 RD [id number]) Charges for Administration # of IVP Administrations 1 Lorazepam (Ativan) 1 mg IVP Q6H PRN; Protocol PRN Reason: Symptoms of alcohol withdrawl Last Admin: 12/31/17 07:48 Dose: 1 mg IVP Administration Document 12/31/17 07:48 JUR (Rec: 12/31/17 07:[address]) Charges for Administration # of IVP Administrations 1 Behavioural Document 12/31/17 07:48 JUR (Rec: 12/31/17 07:[address]) Maintenance Maintenance Dose No Nonmedicinal Nonmedicinal Interventions Redirect Behavior Behavior for Medication: Anxiety Lorazepam (Ativan) 2 mg IVP ONCE ONE PRN Reason: Protocol Stop: 12/31/17 07:52 Last Admin: 12/31/17 07:52 Dose: 2 mg IVP Administration Document 12/31/17 07:52 JUR (Rec: 12/31/17 09:[address]) Charges for Administration # of IVP Administrations 1 Behavioural Document 12/31/17 07:52 JUR (Rec: 12/31/17 09:[address]) Maintenance Maintenance Dose No Nonmedicinal Nonmedicinal Interventions Redirect Give food/fluids Behavior Behavior for Medication: Anxiety Re-Assess: Reassess Psych Meds Document 12/31/17 08:22 JUR (Rec: 12/31/17 18:[address]) Reassess Psych Med Effective Lorazepam (Ativan) 2 mg IVP Q2H PRN; Protocol PRN Reason: Symptoms of alcohol withdrawl Methylprednisolone (Solu-Medrol) 125 mg IVP ONCE ONE Stop: 12/31/17 01:58 Last Admin: 12/31/17 02:27 Dose: 125 mg IVP Administration Document 12/31/17 02:27 RD (Rec: 12/31/17 02:27 RD [id number]) Charges for Administration # of IVP Administrations 1 Naloxone HCl (Narcan) 0.4 mg IVP STAT STA Stop: 12/30/17 22:43 Last Admin: 12/30/17 22:15 Dose: 0.4 mg IVP Administration Document 12/30/17 22:15 RD (Rec: 12/30/17 23:01 RD [id number]) Charges for Administration # of IVP Administrations 1 - Scribe Statement The provider has reviewed the documentation as recorded by the Scribe Sofia Castañeda Provider Scribe Attestation: All medical record entries made by the Scribe were at my direction and personally dictated by me. I have reviewed the chart and agree that the record accurately reflects my personal performance of the history, physical exam, medical decision making, and the department course for this patient. I have also personally directed, reviewed, and agree with the discharge instructions and disposition. Disposition/Present on Arrival - Present on Arrival Any Indicators Present on Arrival: No History of DVT/PE: No History of Uncontrolled Diabetes: No Urinary Catheter: No History Surgical Site Infection Following: None - Disposition Have Diagnosis and Disposition been Completed?: Yes Diagnosis: COPD exacerbation, Alcohol abuse, Polysubstance abuse, Overdose, Heroin overdose Disposition: HOSPITALIZED Disposition Time: 01:00 Condition: SERIOUS
[2017-12-30] MEDS ORDERED: Naloxone 0.4 mg/ml Inj (Adult) IVP STA ×2 (22:41→22:42)
[2017-12-30] MEDS ORDERED: Naloxone 2.4 MG in Sodium Chloride 0.9% 244 ML IV ONE (22:42)
[2017-12-30 23:38] LABS: BASO # 0.09 K/mm3 (0.0-2.0); BASO % 0.4 % (0.0-3.0); EOS # 0.6 (0.0-0.7); EOS % 2.5 % (1.5-5.0); GRAN # 7.98 (1.4-6.5); GRAN % 35.2 % (50.0-68.0); HEMOGLOBIN 15.1 g/dL (12.0-16.0); LYMPH # 11.6 (1.2-3.4); LYMPH % 51.2 % (22.0-35.0); MEAN CELL VOLUME 99.1 fl (80.0-105.0); MEAN CORPUSCULAR HEMOGLOBIN 32.9 pg (25.0-35.0); MEAN CORPUSCULAR HGB CONC 33.2 g/dl (31.0-37.0); MEAN PLATELET VOLUME 10.8 fl (7.0-11.0); MONO # 2.4 (0.1-0.6); MONO % 10.7 % (1.0-6.0); RBC 4.59 10^6/uL (3.5-6.1); RED CELL DISTRIBUTION WIDTH 15.2 % (11.5-14.5); WHITE BLOOD COUNT 22.7 10^3/ul (4.5-11.0)
[2017-12-31 00:21] LABS: ARTERIAL BLOOD GAS HCO3 30.5 mmol/L (21-28); ARTERIAL BLOOD GAS PCO2 54 mm/Hg (35-45); ARTERIAL BLOOD GAS PH 7.36 (7.35-7.45); ARTERIAL BLOOD GAS TCO2 32.2 mmol.L (22-28)
[2017-12-31 00:49] LABS: PH,URINE 5.5 (4.7-8.0); URINE BILIRUBIN SMALL (NEGATIVE); URINE BLOOD NEGATIVE (NEGATIVE); URINE GLUCOSE (UA) NEGATIVE (NEGATIVE); URINE LEUKOCYTE ESTERASE NEGATIVE Leu/uL (NEGATIVE); URINE PROTEIN 30 mg/dL (<30 mg/dL)
[2017-12-31 00:53] LABS: URINE APPEARANCE CLEAR (CLEAR); URINE COLOR YELLOW (YELLOW)
[2017-12-31 01:00] LABS: ACETAMINOPHEN < 10.0 ug/ml (10.0-20.0); SALICYLATE < 1 mg/dL (2.0-20.0)
[2017-12-31] MEDS: Albuterol-Ipratrop 3 mg / 0.5 (3 ml) UD IH SCH ×6 (01:07→19:40)
[2017-12-31 01:11] LABS: ALB/GLOB RATIO 1.2 (1.1-1.8); ALBUMIN 3.5 g/dL (3.0-4.8); ALT/SGPT 58 U/L (7-56); AST/SGOT 67 U/L (14-36); BARBITURATES, UR NEGATIVE (NEGATIVE); BENZODIAZEPINES, UR NEGATIVE (NEGATIVE); BLOOD UREA NITROGEN 5 mg/dL (7-21); CALCIUM 8.1 mg/dL (8.4-10.5); GFR NON-AFRICAN AMERICAN > 60; OPIATES, UR POSITIVE (NEGATIVE); PHENCYCLIDINE, UR NEGATIVE (NEGATIVE)
[2017-12-31] MEDS ORDERED: Folic Acid 1 MG, Thiamine 100 MG, Multivitamin (MVI) 10 ML in Dextrose 5% In Water 1,00... IV SCH (02:45)
[2017-12-31] MEDS ORDERED: Albuterol-Ipratrop 3 mg / 0.5 (3 ml) UD IH PRN (02:46)
--- NOTE | 2017-12-31 02:59 | CP.PCM.HP ---
<LicoGarcía - Last Filed: 12/31/17 03:20> History of Present Illness - History of Present Illness History of Present Illness: Internal Medicine H&P (Hospitalist): Simone PGY2 CC: Unresponsive/COPD Exacerbation/Alcohol Withdrawal Ms. Chambers is a 47 year old female with a past medical history significant for COPD, asthma, alcohol/heroin abuse, and hepatitis C with liver cirrhosis who presents after being found in respiratory distress on a park bench. Patient is currently alert and oriented to person, place, time and event. Patient reports that yesterday afternoon she began to experience SOB and an increase in her sputum production without any inciting cause. She reports having inhalers at home that usually help when this happens but that they provided little to no relief today. She also endorses that she sniffed two bags of heroin and had her last drink of alcohol around the same time earlier this afternoon. Currently, patient denies any sick contacts, recent travel, recent illnesses, fevers, chills, headache, chest pain, palpitations, hemoptysis, abdominal pain, N/V/D/C , changes in urine output or any new skin changes. Of note, patient was unresponsive and seizing after being brought in and was started on a Narcan drip in the ED. PMH: COPD, asthma, alcohol/heroin abuse, and hepatitis C with liver cirrhosis PSH: Appendectomy, tonsillectomy Family History: Father-DM2 Social History: Smokes 1/2 pk/day for >30 years, drinks 5-6 cans of four frances daily (14% alcohol x 24 ounces), reports prior IVDU, currently snorts heroin 2- 10 bags weekly; homeless Allergies: NKDA Home Medications: As per MAR PMD: none Present on Admission - Present on Admission Any Indicators Present on Admission: No Review of Systems - Review of Systems Review of Systems: As stated in HPI, otherwise negative Past Patient History - Infectious Disease Hx of Infectious Diseases: None - Tetanus Immunizations Tetanus Immunization: Unknown - Past Medical History & Family History Past Medical History?: Yes - Past Social History Smoking Status: Current Some Days Smoker - CARDIAC Hx Cardiac Disorders: Yes Hx Congestive Heart Failure: Yes Hx Hypertension: Yes - PULMONARY Hx Respiratory Disorders: Yes Hx Asthma: Yes Hx Chronic Obstructive Pulmonary Disease (COPD): Yes - NEUROLOGICAL Hx Neurological Disorder: No - HEENT Hx HEENT Problems: No - RENAL Hx Chronic Kidney Disease: Yes - ENDOCRINE/METABOLIC Hx Endocrine Disorders: No - HEMATOLOGICAL/ONCOLOGICAL Hx Blood Disorders: Yes Hx Hepatitis C: Yes - INTEGUMENTARY Hx Dermatological Problems: No - MUSCULOSKELETAL/RHEUMATOLOGICAL Hx Musculoskeletal Disorders: No Hx Falls: No - GASTROINTESTINAL Hx Gastrointestinal Disorders: Yes Hx Pancreatitis: Yes - GENITOURINARY/GYNECOLOGICAL Hx Genitourinary Disorders: Yes Hx Sexually Transmitted Disorders: Yes - PSYCHIATRIC Hx Psychophysiologic Disorder: Yes Hx Anxiety: Yes Hx Depression: Yes Hx Substance Use: Yes - SURGICAL HISTORY Hx Appendectomy: Yes Hx Tonsillectomy: Yes Other/Comment: tonsillectomy - ANESTHESIA Hx Anesthesia: Yes Hx Anesthesia Reactions: No Hx Malignant Hyperthermia: No Meds Allergies/Adverse Reactions: Allergies Allergy/AdvReac Type Severity Reaction Status Date / Time No Known Allergies Allergy Verified 09/25/17 21:56 Physical Exam - Constitutional Appears: Non-toxic, No Acute Distress - Head Exam Head Exam: ATRAUMATIC, NORMOCEPHALIC - Eye Exam Eye Exam: EOMI Pupil Exam: Miosis - ENT Exam ENT Exam: Mucous Membranes Dry - Neck Exam Neck exam: Positive for: Full Rom - Respiratory Exam Respiratory Exam: Wheezes (Diffuse end expiratory), NORMAL BREATHING PATTERN. absent: Accessory Muscle Use, Chest Wall Tenderness, Decreased Breath Sounds, Clear to Auscultation Bilateral, Prolonged Expiratory Phase, Rales, Rhonchi, Respiratory Distress, Stridor - Cardiovascular Exam Cardiovascular Exam: Tachycardia, +S1, +S2 - GI/Abdominal Exam GI & Abdominal Exam: Hernia (Umbilical; Reducible), Normal Bowel Sounds, Soft. absent: Diminished Bowel Sounds, Distended, Firm, Guarding, Hyperactive Bowel Sounds, Hypoactive Bowel Sounds, Mass, Organomegaly, Pulsatile Mass, Rebound, Rigid, Tenderness - Extremities Exam Extremities exam: Negative for: calf tenderness, joint swelling, pedal edema, tenderness - Neurological Exam Neurological exam: Alert, Oriented x3 - Psychiatric Exam Psychiatric exam: Normal Affect, Normal Mood - Skin Skin Exam: Dry, Intact, Normal Color, Warm Results - Vital Signs Recent Vital Signs: Last Vital Signs Temp 97.8 F 12/30/17 22:20 Pulse 102 H 12/31/17 01:42 Resp 20 12/31/17 01:42 BP 110/73 12/31/17 01:42 Pulse Ox 98 12/31/17 01:42 - Labs Result Diagrams: 12/30/17 22:22 12/31/17 00:39 Assessment & Plan - Assessment and Plan (Free Text) Assessment: 47 year old female with a past medical history significant for COPD, asthma, alcohol/heroin abuse, and hepatitis C with liver cirrhosis who presents after being found in respiratory distress on a park bench. Patient is currently alert and oriented to person, place, time and event. Of note, patient was unresponsive and seizing after being brought in and was started on a Narcan drip in the ED. Plan: 1. Polysubstance Abuse/Withdrawal -CT Head pending official radiologist interpretation -UDS positive for opiates -Alcohol level of 29 -Continue Narcan gtt -Ativan 1q6 PRN -Banana Bag at 100mls/hr -CIWA Q4 -Aspiration, Fall and Seizure precautions 2. COPD Exacerbation -Chest X-Ray pending official radiologist interpretation -IV Zithromax and Rocephin -Duonebs Q6 JACK and Q2 PRN -Procalcitonin pending -CO2 elevated at 54 on admission -Repeat ABG in AM GI Prophylaxis: Protonix DVT Prophylaxis: Heparin Diet: Heart Healthy Diet Patient seen and case discussed with attending, Dr. Garces. - Date & Time Date: 12/31/17 Time: 03:29 Decision To Admit - Pt Status Changed To: Hospital Disposition Of: Inpatient Admission - Admit Certification Admit to Inpatient:: After my assessment, the patient will require hospitalization for at least two midnights. This is because of the severity of symptoms shown, intensity of services needed, and/or the medical risk in this patient being treated as an outpatient. - . Bed Request Type: Critical Care <Ingrid Garces - Last Filed: 12/31/17 03:45> Results - Vital Signs Recent Vital Signs: Last Vital Signs Temp 97.8 F 12/30/17 22:20 Pulse 90 12/31/17 03:03 Resp 18 12/31/17 03:03 BP 122/80 12/31/17 03:03 Pulse Ox 97 12/31/17 03:03 - Labs Result Diagrams: 12/30/17 22:22 12/31/17 00:39 Attending/Attestation - Attestation I have personally seen and examined this patient.: Yes I have fully participated in the care of the patient.: Yes I have reviewed all pertinent clinical information: Yes Notes (Text): 12/31/17 03:40 Patient was seen when she was in bed # 2 when she was in the ER. Medical record was reviewed. Agree with history, physical examination, assessment and plan. 47 year old white woman comes in with drug overdose with heroine, in Respiratory distress Seizing S/P overdose Now on Narcan drip Leukocytosis.22.7 Lymphocytosis.51.2 ABG-7.36/54/95/30.5 on 32%. calcium 8.1 Hyperglycemia 474 ETOH-29 AST/ALT-67/58 U/A-neg Urine opiate positive. CXR-?Infiltrate. CT head -neg. PMH: COPD Asthma Hepatitis C Drug overdose-Opiate. Alcohl intoxication IVDA cHF HTN Pancreatitis. Anxiety Depression Appendectomy Tonsillectomy Will admit to ICU on narcan drip, IV Rocephin, IV Zithromax, Ciwa protocol Seizure precautions.
[2017-12-31 05:03] VITALS: BMI 30.9
[2017-12-31] MEDS: Pantoprazole 40 mg EC Tab PO SCH (05:22)
[2017-12-31 06:06] LABS: BASO # 0.02 K/mm3 (0.0-2.0); BASO % 0.3 % (0.0-3.0); EOS # 0.1 (0.0-0.7); EOS % 0.6 % (1.5-5.0); GRAN # 6.55 (1.4-6.5); GRAN % 82.9 % (50.0-68.0); HEMOGLOBIN 13.3 g/dL (12.0-16.0); LYMPH % 12.4 % (22.0-35.0); MEAN CELL VOLUME 98.3 fl (80.0-105.0); MEAN CORPUSCULAR HEMOGLOBIN 31.4 pg (25.0-35.0); MEAN CORPUSCULAR HGB CONC 31.9 g/dl (31.0-37.0); MEAN PLATELET VOLUME 10.5 fl (7.0-11.0); MONO # 0.3 (0.1-0.6); MONO % 3.8 % (1.0-6.0); RBC 4.24 10^6/uL (3.5-6.1); RED CELL DISTRIBUTION WIDTH 15.1 % (11.5-14.5); WHITE BLOOD COUNT 7.9 10^3/ul (4.5-11.0)
[2017-12-31 06:59] LABS: ALB/GLOB RATIO 1.2 (1.1-1.8); ALBUMIN 3.6 g/dL (3.0-4.8); ALT/SGPT 49 U/L (7-56); AST/SGOT 62 U/L (14-36); BLOOD UREA NITROGEN 7 mg/dL (7-21); CALCIUM 8.4 mg/dL (8.4-10.5); GFR NON-AFRICAN AMERICAN > 60
[2017-12-31 07:08] LABS: ARTERIAL BLOOD GAS HCO3 20.1 mmol/L (21-28); ARTERIAL BLOOD GAS O2 SAT 99.2 % (95-98); ARTERIAL BLOOD GAS PCO2 40 mm/Hg (35-45); ARTERIAL BLOOD GAS PH 7.31 (7.35-7.45); ARTERIAL BLOOD GAS TCO2 21.3 mmol.L (22-28)
--- NOTE | 2017-12-31 07:45 | CP.CCUPN ---
<Constance Michael - Last Filed: 12/31/17 13:14> CCU Subjective - Physician Review Subjective (Free Text): 12/31/17 13:14 Patient seen and examined at bedside. Patient admitted overnight s/p heroin overdose, s/p Narcan drip, now awake, alert, oriented x4. This AM, patient complains of sob, wheezing, states that she is hungry. Patient was agitated this AM, with hand tremors, given ativan 2 mg IV x1. Denies fevers, chills, nausea, vomiting, chest pain, abdominal pain, leg swelling. CCU Objective - Vital Signs / Intake & Output Vital Signs (Last 4 hours): Vital Signs Temp Pulse Pulse Resp BP 12/31/17 06:00 88 12/31/17 04:16 98 F 88 88 18 130/90 Intake and Output (Last 8hrs): Intake & Output 12/30/17 12/31/17 12/31/17 22:59 06:59 14:59 Intake Total 560 Output Total 0 Balance 560 Weight 158 lb 3.2 oz Intake: IV 400 Right Antecubital 400 Oral 160 Output: Urine 0 Urine, Voided 0 Other: # Bowel Movements 0 - Physical Exam Head: Positive for: Atraumatic, Normocephalic Pupils: Positive for: PERRL Extroacular Muscles: Positive for: EOMI Conjunctiva: Positive for: Normal Mouth: Positive for: Moist Mucous Membranes Neck: Positive for: Normal Range of Motion Respiratory/Chest: Positive for: Clear to Auscultation, Good Air Exchange. Negative for: Respiratory Distress, Accessory Muscle Use Cardiovascular: Positive for: Regular Rate and Rhythm, Normal S1, S2. Negative for: Murmurs Abdomen: Negative for: Tenderness, Distention, Peritoneal Signs Back: Positive for: Normal Inspection Upper Extremity: Positive for: Other (fine tremors on outstretching of hands). Negative for: Edema Lower Extremity: Positive for: Normal Inspection. Negative for: Edema Neurological: Positive for: GCS=15, CN II-XII Intact, Speech Normal Skin: Positive for: Warm, Dry, Normal Color. Negative for: Rashes Psychiatric: Positive for: Alert, Oriented x 3, Normal Insight, Normal Concentration - Medications Active Medications: Active Medications Generic Name Dose Route Start Last Admin Trade Name Freq PRN Reason Stop Dose Admin Albuterol/Ipratropium 3 ml 12/31/17 02:46 Duoneb 3 Mg/0.5 Mg (3 Ml) Ud IH Q2H PRN Shortness of Breath Albuterol/Ipratropium 3 ml 12/31/17 08:00 12/31/17 07:00 Duoneb 3 Mg/0.5 Mg (3 Ml) Ud IH 3 ml [id number] JACK Administration Heparin Sodium (Porcine) 5,000 units 12/31/17 10:00 Heparin SC Q12 JACK Protocol Folic Acid 1 mg/ Thiamine HCl 1,011.2 mls @ 100 mls/hr 12/31/17 02:45 05:00 100 mg/ Multivitamins/Vitamin IV 100 mls/hr C 10 ml/ Dextrose .Q10H7M JACK Administration Ceftriaxone Sodium 1 gm in 100 mls @ 100 mls/hr 12/31/17 10:00 Rocephin 1 Gram Ivpb IVPB DAILY JACK Protocol Azithromycin 500 mg in 250 mls @ 167 mls/hr 12/31/17 10:00 Zithromax 500mg In Ns IVPB DAILY JACK Protocol Lorazepam 1 mg 12/31/17 02:43 Ativan IVP Q6H PRN Symptoms of alcohol withdrawl Protocol Methylprednisolone 30 mg 12/31/17 10:00 Solu-Medrol IVP Q12 JACK Pantoprazole Sodium 40 mg 12/31/17 06:00 12/31/17 05:22 Protonix Ec Tab PO 40 mg 0600 JACK Administration - Patient Studies Lab Studies: Lab Studies 12/31/17 12/31/17 12/31/17 Range/Units 07:00 05:15 05:15 WBC (4.5-11.0) 10^3/ul RBC (3.5-6.1) 10^6/uL Hgb (12.0-16.0) g/dL Hct (36.0-48.0) % MCV (80.0-105.0) fl MCH (25.0-35.0) pg MCHC (31.0-37.0) g/dl RDW (11.5-14.5) % Plt Count (120.0-450.0) 10^3/uL MPV (7.0-11.0) fl Gran % (50.0-68.0) % Lymph % (Auto) (22.0-35.0) % [place] % (Auto) (1.0-6.0) % Eos % (Auto) (1.5-5.0) % Baso % (Auto) (0.0-3.0) % Gran # (1.4-6.5) Lymph # (Auto) (1.2-3.4) [place] # (Auto) (0.1-0.6) Eos # (Auto) (0.0-0.7) Baso # (Auto) (0.0-2.0) K/mm3 APTT 26.5 (25.1-36.5) Seconds pCO2 40 (35-45) mm/Hg pO2 105.0 H (80-100) mm/Hg HCO3 20.1 L (21-28) mmol/L ABG pH 7.31 L (7.35-7.45) ABG Total CO2 21.3 L (22-28) mmol.L ABG O2 Saturation 99.2 H (95-98) % ABG Base Excess -5.8 L (-2.0-3.0) mmol/L ABG Potassium 2.6 L (3.6-5.2) mmol/L Glucose 91 (65-105) mg/dl Lactate 1.0 (0.7-2.1) mmol/L FiO2 32.0 % Sodium 143.0 138 (132-148) mmol/L Potassium 5.1 H (3.6-5.0) mmol/L Chloride 114.0 H 101 (98-107) mmol/L Carbon Dioxide 33 (21-33) mmol/L Anion Gap 9 L (10-20) BUN 7 (7-21) mg/dL Creatinine 0.7 (0.7-1.2) mg/dl Est GFR ( Amer) > 60 Est GFR (Non-Af Amer) > 60 Random Glucose 120 H (70-110) mg/dL Calcium 8.4 (8.4-10.5) mg/dL Phosphorus 4.1 (2.5-4.5) mg/dL Magnesium 1.8 (1.7-2.2) mg/dL Total Bilirubin 0.5 (0.2-1.3) mg/dL AST 62 H (14-36) U/L ALT 49 (7-56) U/L Alkaline Phosphatase 75 (38-126) U/L Total Protein 6.6 (5.8-8.3) g/dL Albumin 3.6 (3.0-4.8) g/dL Globulin 3.0 gm/dL Albumin/Globulin Ratio 1.2 (1.1-1.8) Arterial Blood Potassium 2.6 L (3.6-5.2) mmol/L 12/31/17 Range/Units 05:15 WBC 7.9 D (4.5-11.0) 10^3/ul RBC 4.24 (3.5-6.1) 10^6/uL Hgb 13.3 (12.0-16.0) g/dL Hct 41.7 (36.0-48.0) % MCV 98.3 (80.0-105.0) fl MCH 31.4 (25.0-35.0) pg MCHC 31.9 (31.0-37.0) g/dl RDW 15.1 H (11.5-14.5) % Plt Count 308 (120.0-450.0) 10^3/uL MPV 10.5 (7.0-11.0) fl Gran % 82.9 H (50.0-68.0) % Lymph % (Auto) 12.4 L (22.0-35.0) % [place] % (Auto) 3.8 (1.0-6.0) % Eos % (Auto) 0.6 L (1.5-5.0) % Baso % (Auto) 0.3 (0.0-3.0) % Gran # 6.55 H (1.4-6.5) Lymph # (Auto) 1.0 L (1.2-3.4) [place] # (Auto) 0.3 (0.1-0.6) Eos # (Auto) 0.1 (0.0-0.7) Baso # (Auto) 0.02 (0.0-2.0) K/mm3 APTT (25.1-36.5) Seconds pCO2 (35-45) mm/Hg pO2 (80-100) mm/Hg HCO3 (21-28) mmol/L ABG pH (7.35-7.45) ABG Total CO2 (22-28) mmol.L ABG O2 Saturation (95-98) % ABG Base Excess (-2.0-3.0) mmol/L ABG Potassium (3.6-5.2) mmol/L Glucose (65-105) mg/dl Lactate (0.7-2.1) mmol/L FiO2 % Sodium (132-148) mmol/L Potassium (3.6-5.0) mmol/L Chloride (98-107) mmol/L Carbon Dioxide (21-33) mmol/L Anion Gap (10-20) BUN (7-21) mg/dL Creatinine (0.7-1.2) mg/dl Est GFR ( Amer) Est GFR (Non-Af Amer) Random Glucose (70-110) mg/dL Calcium (8.4-10.5) mg/dL Phosphorus (2.5-4.5) mg/dL Magnesium (1.7-2.2) mg/dL Total Bilirubin (0.2-1.3) mg/dL AST (14-36) U/L ALT (7-56) U/L Alkaline Phosphatase (38-126) U/L Total Protein (5.8-8.3) g/dL Albumin (3.0-4.8) g/dL Globulin gm/dL Albumin/Globulin Ratio (1.1-1.8) Arterial Blood Potassium (3.6-5.2) mmol/L Laboratory Results - last 24 hr 12/31/17 12/31/17 12/31/17 05:15 05:15 05:15 WBC 7.9 D RBC 4.24 Hgb 13.3 Hct 41.7 MCV 98.3 MCH 31.4 MCHC 31.9 RDW 15.1 H Plt Count 308 MPV 10.5 Gran % 82.9 H Lymph % (Auto) 12.4 L [place] % (Auto) 3.8 Eos % (Auto) 0.6 L Baso % (Auto) 0.3 Gran # 6.55 H Lymph # (Auto) 1.0 L [place] # (Auto) 0.3 Eos # (Auto) 0.1 Baso # (Auto) 0.02 APTT 26.5 pCO2 pO2 HCO3 ABG pH ABG Total CO2 ABG O2 Saturation ABG Base Excess ABG Potassium Glucose Lactate FiO2 Sodium 138 Potassium 5.1 H Chloride 101 Carbon Dioxide 33 Anion Gap 9 L BUN 7 Creatinine 0.7 Est GFR ( Amer) > 60 Est GFR (Non-Af Amer) > 60 Random Glucose 120 H Calcium 8.4 Phosphorus 4.1 Magnesium 1.8 Total Bilirubin 0.5 AST 62 H ALT 49 Alkaline Phosphatase 75 Total Protein 6.6 Albumin 3.6 Globulin 3.0 Albumin/Globulin Ratio 1.2 Arterial Blood Potassium 12/31/17 07:00 WBC RBC Hgb Hct MCV MCH MCHC RDW Plt Count MPV Gran % Lymph % (Auto) [place] % (Auto) Eos % (Auto) Baso % (Auto) Gran # Lymph # (Auto) [place] # (Auto) Eos # (Auto) Baso # (Auto) APTT pCO2 40 pO2 105.0 H HCO3 20.1 L ABG pH 7.31 L ABG Total CO2 21.3 L ABG O2 Saturation 99.2 H ABG Base Excess -5.8 L ABG Potassium 2.6 L Glucose 91 Lactate 1.0 FiO2 32.0 Sodium 143.0 Potassium Chloride 114.0 H Carbon Dioxide Anion Gap BUN Creatinine Est GFR ( Amer) Est GFR (Non-Af Amer) Random Glucose Calcium Phosphorus Magnesium Total Bilirubin AST ALT Alkaline Phosphatase Total Protein Albumin Globulin Albumin/Globulin Ratio Arterial Blood Potassium 2.6 L Review of Systems - Review of Systems All systems: reviewed and no additional remarkable complaints except Review of Systems: as per hPI Critical Care Progress Note - Nutrition Nutrition: Nutrition Category Date Time Status Heart Healthy Diet [DIET] Diets 12/31/17 Breakfast Active Assessment/Plan - Assessment and Plan (Free Text) Assessment: 47 year old female with a past medical history significant for COPD, asthma, alcohol/heroin abuse, frequent flyer to [facility], and hepatitis C with liver cirrhosis, presents for heroin overdose requiring Narcan drip, also found to have hypercapneic respiratory acidosis in setting of COPD exacerbation: Neuro: AOx4. Seizure precautions, neuro checks. Heroin overdose, uds pos for opiates. s/p narcan drip. CIWA protocol. On banana bag. Ativan 2 mg Iv x1 given. ativan 2 mg IV q4 prn. Low threshold for precedex drip. On Mvt, thiamine, folate. Monitor Cardio: normotensive. Maintain MAP>65 Respiratory: Switched to HFNC 40Lpm, 32%FiO2. Maintain sats>92%. Will repeat ABG. bronchodilators, IV steroids, azitho and rocephin CXR negative Monitor GI: protonix. HHD Renal: BUN 7/0.7. Maintain lytes, maintain euvolemia. Heme: Stable. monitor PPX: protonix, heparin sq Case seen and discussed with Dr Kidd. <Den Kidd - Last Filed: 12/31/17 15:35> CCU Objective - Vital Signs / Intake & Output Vital Signs (Last 4 hours): Vital Signs Resp 12/31/17 13:19 18 12/31/17 11:32 20 Intake and Output (Last 8hrs): Intake & Output 12/31/17 12/31/17 12/31/17 06:59 14:59 22:59 Intake Total 560 Output Total 0 Balance 560 Weight 158 lb 3.2 oz Intake: IV 400 Right Antecubital 400 Oral 160 Output: Urine 0 Urine, Voided 0 Other: # Bowel Movements 0 - Medications Active Medications: Active Medications Generic Name Dose Route Start Last Admin Trade Name Freq PRN Reason Stop Dose Admin Albuterol/Ipratropium 3 ml 12/31/17 02:46 Duoneb 3 Mg/0.5 Mg (3 Ml) Ud IH Q2H PRN Shortness of Breath Albuterol/Ipratropium 3 ml 12/31/17 08:00 12/31/17 13:15 Duoneb 3 Mg/0.5 Mg (3 Ml) Ud IH 3 ml [id number] JACK Administration Folic Acid 1 mg 01/01/18 10:00 Folic Acid PO DAILY JACK Heparin Sodium (Porcine) 5,000 units 12/31/17 10:00 12/31/17 09:20 Heparin SC 5,000 units Q12 JACK Administration Protocol Folic Acid 1 mg/ Thiamine HCl 1,011.2 mls @ 100 mls/hr 12/31/17 02:45 05:00 100 mg/ Multivitamins/Vitamin IV 100 mls/hr C 10 ml/ Dextrose .Q10H7M JACK Administration Ceftriaxone Sodium 1 gm in 100 mls @ 100 mls/hr 12/31/17 10:00 12/31/17 09:21 Rocephin 1 Gram Ivpb IVPB 100 mls/hr DAILY JACK Administration Protocol Azithromycin 500 mg in 250 mls @ 167 mls/hr 12/31/17 10:00 12/31/17 09:55 Zithromax 500mg In Ns IVPB 167 mls/hr DAILY JACK Administration Protocol Dexmedetomidine HCl 400 mcg in 100 mls @ 3.588 mls/hr 12/31/17 07:51 Precedex 400mcg/100ml IV .Q24H PRN Symptoms of alcohol withdrawl Protocol 0.2 MCG/KG/HR Lorazepam 2 mg 12/31/17 10:32 12/31/17 12:41 Ativan IVP 2 mg Q4 PRN Administration Symptoms of alcohol withdrawl Protocol Methylprednisolone 30 mg 12/31/17 10:00 12/31/17 09:20 Solu-Medrol IVP 30 mg Q12 JACK Administration Multivitamins 1 tab 01/01/18 08:00 Thera Tab PO 0800 JACK Pantoprazole Sodium 40 mg 12/31/17 06:00 12/31/17 05:22 Protonix Ec Tab PO 40 mg 0600 JACK Administration Thiamine HCl 100 mg 01/01/18 10:00 Vitamin B1 Tab PO DAILY JACK - Patient Studies Lab Studies: Lab Studies 12/31/17 12/31/17 12/31/17 Range/Units 07:00 05:15 05:15 WBC (4.5-11.0) 10^3/ul RBC (3.5-6.1) 10^6/uL Hgb (12.0-16.0) g/dL Hct (36.0-48.0) % MCV (80.0-105.0) fl MCH (25.0-35.0) pg MCHC (31.0-37.0) g/dl RDW (11.5-14.5) % Plt Count (120.0-450.0) 10^3/uL MPV (7.0-11.0) fl Gran % (50.0-68.0) % Lymph % (Auto) (22.0-35.0) % [place] % (Auto) (1.0-6.0) % Eos % (Auto) (1.5-5.0) % Baso % (Auto) (0.0-3.0) % Gran # (1.4-6.5) Lymph # (Auto) (1.2-3.4) [place] # (Auto) (0.1-0.6) Eos # (Auto) (0.0-0.7) Baso # (Auto) (0.0-2.0) K/mm3 APTT 26.5 (25.1-36.5) Seconds pCO2 40 (35-45) mm/Hg pO2 105.0 H (80-100) mm/Hg HCO3 20.1 L (21-28) mmol/L ABG pH 7.31 L (7.35-7.45) ABG Total CO2 21.3 L (22-28) mmol.L ABG O2 Saturation 99.2 H (95-98) % ABG Base Excess -5.8 L (-2.0-3.0) mmol/L ABG Potassium 2.6 L (3.6-5.2) mmol/L Glucose 91 (65-105) mg/dl Lactate 1.0 (0.7-2.1) mmol/L FiO2 32.0 % Sodium 143.0 (132-148) mmol/L Potassium (3.6-5.0) mmol/L Chloride 114.0 H (98-107) mmol/L Carbon Dioxide (21-33) mmol/L Anion Gap (10-20) BUN (7-21) mg/dL Creatinine (0.7-1.2) mg/dl Est GFR ( Amer) Est GFR (Non-Af Amer) Random Glucose (70-110) mg/dL Calcium (8.4-10.5) mg/dL Phosphorus (2.5-4.5) mg/dL Magnesium (1.7-2.2) mg/dL Total Bilirubin (0.2-1.3) mg/dL AST (14-36) U/L ALT (7-56) U/L Alkaline Phosphatase (38-126) U/L Total Protein (5.8-8.3) g/dL Albumin (3.0-4.8) g/dL Globulin gm/dL Albumin/Globulin Ratio (1.1-1.8) Procalcitonin < 0.05 L (0.19-0.49) NG/ML Arterial Blood Potassium 2.6 L (3.6-5.2) mmol/L 12/31/17 12/31/17 Range/Units 05:15 05:15 WBC 7.9 D (4.5-11.0) 10^3/ul RBC 4.24 (3.5-6.1) 10^6/uL Hgb 13.3 (12.0-16.0) g/dL Hct 41.7 (36.0-48.0) % MCV 98.3 (80.0-105.0) fl MCH 31.4 (25.0-35.0) pg MCHC 31.9 (31.0-37.0) g/dl RDW 15.1 H (11.5-14.5) % Plt Count 308 (120.0-450.0) 10^3/uL MPV 10.5 (7.0-11.0) fl Gran % 82.9 H (50.0-68.0) % Lymph % (Auto) 12.4 L (22.0-35.0) % [place] % (Auto) 3.8 (1.0-6.0) % Eos % (Auto) 0.6 L (1.5-5.0) % Baso % (Auto) 0.3 (0.0-3.0) % Gran # 6.55 H (1.4-6.5) Lymph # (Auto) 1.0 L (1.2-3.4) [place] # (Auto) 0.3 (0.1-0.6) Eos # (Auto) 0.1 (0.0-0.7) Baso # (Auto) 0.02 (0.0-2.0) K/mm3 APTT (25.1-36.5) Seconds pCO2 (35-45) mm/Hg pO2 (80-100) mm/Hg HCO3 (21-28) mmol/L ABG pH (7.35-7.45) ABG Total CO2 (22-28) mmol.L ABG O2 Saturation (95-98) % ABG Base Excess (-2.0-3.0) mmol/L ABG Potassium (3.6-5.2) mmol/L Glucose (65-105) mg/dl Lactate (0.7-2.1) mmol/L FiO2 % Sodium 138 (132-148) mmol/L Potassium 5.1 H (3.6-5.0) mmol/L Chloride 101 (98-107) mmol/L Carbon Dioxide 33 (21-33) mmol/L Anion Gap 9 L (10-20) BUN 7 (7-21) mg/dL Creatinine 0.7 (0.7-1.2) mg/dl Est GFR ( Amer) > 60 Est GFR (Non-Af Amer) > 60 Random Glucose 120 H (70-110) mg/dL Calcium 8.4 (8.4-10.5) mg/dL Phosphorus 4.1 (2.5-4.5) mg/dL Magnesium 1.8 (1.7-2.2) mg/dL Total Bilirubin 0.5 (0.2-1.3) mg/dL AST 62 H (14-36) U/L ALT 49 (7-56) U/L Alkaline Phosphatase 75 (38-126) U/L Total Protein 6.6 (5.8-8.3) g/dL Albumin 3.6 (3.0-4.8) g/dL Globulin 3.0 gm/dL Albumin/Globulin Ratio 1.2 (1.1-1.8) Procalcitonin (0.19-0.49) NG/ML Arterial Blood Potassium (3.6-5.2) mmol/L Laboratory Results - last 24 hr 12/31/17 12/31/17 12/31/17 05:15 05:15 05:15 WBC 7.9 D RBC 4.24 Hgb 13.3 Hct 41.7 MCV 98.3 MCH 31.4 MCHC 31.9 RDW 15.1 H Plt Count 308 MPV 10.5 Gran % 82.9 H Lymph % (Auto) 12.4 L [place] % (Auto) 3.8 Eos % (Auto) 0.6 L Baso % (Auto) 0.3 Gran # 6.55 H Lymph # (Auto) 1.0 L [place] # (Auto) 0.3 Eos # (Auto) 0.1 Baso # (Auto) 0.02 APTT pCO2 pO2 HCO3 ABG pH ABG Total CO2 ABG O2 Saturation ABG Base Excess ABG Potassium Glucose Lactate FiO2 Sodium 138 Potassium 5.1 H Chloride 101 Carbon Dioxide 33 Anion Gap 9 L BUN 7 Creatinine 0.7 Est GFR ( Amer) > 60 Est GFR (Non-Af Amer) > 60 Random Glucose 120 H Calcium 8.4 Phosphorus 4.1 Magnesium 1.8 Total Bilirubin 0.5 AST 62 H ALT 49 Alkaline Phosphatase 75 Total Protein 6.6 Albumin 3.6 Globulin 3.0 Albumin/Globulin Ratio 1.2 Procalcitonin < 0.05 L Arterial Blood Potassium 12/31/17 12/31/17 05:15 07:00 WBC RBC Hgb Hct MCV MCH MCHC RDW Plt Count MPV Gran % Lymph % (Auto) [place] % (Auto) Eos % (Auto) Baso % (Auto) Gran # Lymph # (Auto) [place] # (Auto) Eos # (Auto) Baso # (Auto) APTT 26.5 pCO2 40 pO2 105.0 H HCO3 20.1 L ABG pH 7.31 L ABG Total CO2 21.3 L ABG O2 Saturation 99.2 H ABG Base Excess -5.8 L ABG Potassium 2.6 L Glucose 91 Lactate 1.0 FiO2 32.0 Sodium 143.0 Potassium Chloride 114.0 H Carbon Dioxide Anion Gap BUN Creatinine Est GFR ( Amer) Est GFR (Non-Af Amer) Random Glucose Calcium Phosphorus Magnesium Total Bilirubin AST ALT Alkaline Phosphatase Total Protein Albumin Globulin Albumin/Globulin Ratio Procalcitonin Arterial Blood Potassium 2.6 L Critical Care Progress Note - Nutrition Nutrition: Nutrition Category Date Time Status Heart Healthy Diet [DIET] Diets 12/31/17 Breakfast Active Attending/Attestation - Attestation I have personally seen and examined this patient.: Yes I have fully participated in the care of the patient.: Yes I have reviewed all pertinent clinical information: Yes Notes (Text): 12/31/17 15:30 47 yo female presented with alcohol withdrawal and opiate overdose. initially treated with narcan drip, which was subsequently d/c-ed and now awake and alerted, even though report some anxiety, tremoulusness, which however was taken care of by ativan prn. will repeat abg to objectively monitor ventilatory status. dvt/gi prophyalxis, IVF, aspiration precaution, euvolemia and euglycemia ccm time 40 min
[2017-12-31] MEDS ORDERED: Dexmedetomidine 400mcg/100mL 400 MCG/100 ML BOTTLE IV PRN (07:51)
[2017-12-31] MEDS: MethylPREDNISolone 40 mg Vial IVP SCH ×2 (09:20→21:16)
[2017-12-31] MEDS: cefTRIAXone 1 gm 1 GM/100 ML BAG IVPB SCH (09:21)
--- NOTE | 2017-12-31 09:48 | CT ---
Date of service: 12/31/2017 PROCEDURE: CT HEAD WITHOUT CONTRAST. HISTORY: od COMPARISON: None available. TECHNIQUE: Axial computed tomography images were obtained through the head/brain without intravenous contrast. Radiation dose: Total exam DLP = 949 mGy-cm. This CT exam was performed using one or more of the following dose reduction techniques: Automated exposure control, adjustment of the mA and/or kV according to patient size, and/or use of iterative reconstruction technique. FINDINGS: HEMORRHAGE: No intracranial hemorrhage. BRAIN: No mass effect or edema. No atrophy or chronic microvascular ischemic changes. VENTRICLES: Unremarkable. No hydrocephalus. CALVARIUM: Unremarkable. PARANASAL SINUSES: Unremarkable as visualized. No significant inflammatory changes. MASTOID AIR CELLS: Unremarkable as visualized. No inflammatory changes. OTHER FINDINGS: The report concurs with the preliminary [facility] report IMPRESSION: No acute findings
[2017-12-31] MEDS: Azithromycin 500MG/NS 250ml 500 MG/250 ML BAG IVPB SCH (09:55)
--- NOTE | 2017-12-31 10:07 | RAD ---
Date of service: 12/31/2017 HISTORY: cp COMPARISON: 12/23/2017 FINDINGS: LUNGS: No active pulmonary disease. PLEURA: No significant pleural effusion identified, no pneumothorax apparent. CARDIOVASCULAR: Normal. OSSEOUS STRUCTURES: No significant abnormalities. VISUALIZED UPPER ABDOMEN: Normal. OTHER FINDINGS: None. IMPRESSION: No active disease.
--- NOTE | 2017-12-31 12:07 | CARD ---
APPROVED REPORT Date of service: 12/30/2017 EKG Measurement Heart [id number] <Conclusion> Atrial flutter with 2:1 AV conduction Incomplete right bundle branch block Abnormal ECG
[2017-12-31 15:59] LABS: ARTERIAL BLOOD GAS HCO3 27.2 mmol/L (21-28); ARTERIAL BLOOD GAS HEMOGLOBIN 12.6 g/dL (11.7-17.4); ARTERIAL BLOOD GAS O2 CAPACITY 17.2 mL/dl (16-24); ARTERIAL BLOOD GAS O2 CONTENT 17.1 ML/dl (15-23); ARTERIAL BLOOD GAS O2 SAT 99.2 % (95-98); ARTERIAL BLOOD GAS PCO2 45 mm/Hg (35-45); ARTERIAL BLOOD GAS PH 7.39 (7.35-7.45); ARTERIAL BLOOD GAS TCO2 28.6 mmol.L (22-28)
[2017-12-31 17:06] LABS: BLOOD UREA NITROGEN 8 mg/dL (7-21); GFR NON-AFRICAN AMERICAN > 60
[2017-12-31] MEDS: Sodium Chloride 0.9% 1,000 ML IV SCH (18:00)
[2018-01-01] MEDS: Albuterol-Ipratrop 3 mg / 0.5 (3 ml) UD IH SCH ×4 (01:45→19:24)
[2018-01-01] MEDS: Sodium Chloride 0.9% 1,000 ML IV SCH ×2 (05:00→18:55)
[2018-01-01] MEDS: Pantoprazole 40 mg EC Tab PO SCH (06:09)
--- NOTE | 2018-01-01 06:23 | CP.PCM.PN ---
<Aquilino Haley - Last Filed: 01/01/18 16:30> Subjective - Date & Time of Evaluation Date of Evaluation: 01/01/18 Time of Evaluation: 06:10 - Subjective Subjective: Aquilino Haley DO PGY-1, Internal Medicine Resident. Hospitalist Progress Note Patient seen and examined at bedside in ICU. Patient states that her breathing pattern is getting better. In mild respiratory distress, using nebulizer. No acute events overnight. She is not ambulating out of bed. Patient denied CP, palpitations, headache, fever. ROS is otherwise negative Objective - Vital Signs/Intake and Output Vital Signs (last 24 hours): Temp Pulse Resp BP Pulse Ox 98 F 84 56 H 117/74 93 L 01/01/18 04:00 01/01/18 05:10 01/01/18 05:10 12/31/17 22:00 01/01/18 01:20 Intake and Output: 12/31/17 01/01/18 18:59 06:59 Intake Total 2250 Output Total 1400 Balance 850 - Medications Medications: Current Medications Albuterol/Ipratropium (Duoneb 3 Mg/0.5 Mg (3 Ml) Ud) 3 ml IH Q2H PRN PRN Reason: Shortness of Breath Albuterol/Ipratropium (Duoneb 3 Mg/0.5 Mg (3 Ml) Ud) 3 ml IH Q5DDPBS [facility] Last Admin: 01/01/18 01:45 Dose: 3 ml Folic Acid (Folic Acid) 1 mg PO DAILY [facility] Heparin Sodium (Porcine) (Heparin) 5,000 units SC Q12 JACK PRN Reason: Protocol Last Admin: 12/31/17 21:17 Dose: 5,000 units Ceftriaxone Sodium (Rocephin 1 Gram Ivpb) 1 gm in 100 mls @ 100 mls/hr IVPB DAILY JACK PRN Reason: Protocol Last Admin: 12/31/17 09:21 Dose: 100 mls/hr Azithromycin (Zithromax 500mg In Ns) 500 mg in 250 mls @ 167 mls/hr IVPB DAILY JACK PRN Reason: Protocol Last Admin: 12/31/17 09:55 Dose: 167 mls/hr Dexmedetomidine HCl (Precedex 400mcg/100ml) 400 mcg in 100 mls @ 3.588 mls/hr IV .Q24H PRN; Protocol; 0.2 MCG/KG/HR PRN Reason: Symptoms of alcohol withdrawl Sodium Chloride (Sodium Chloride 0.9%) 1,000 mls @ 100 mls/hr IV .Q10H [facility] Last Admin: 01/01/18 05:00 Dose: 100 mls/hr Lorazepam (Ativan) 2 mg IVP Q4 PRN; Protocol PRN Reason: Symptoms of alcohol withdrawl Last Admin: 01/01/18 06:11 Dose: 2 mg Methylprednisolone (Solu-Medrol) 30 mg IVP Q12 [facility] Last Admin: 12/31/17 21:16 Dose: 30 mg Multivitamins (Thera Tab) 1 tab PO 0800 [facility] Pantoprazole Sodium (Protonix Ec Tab) 40 mg PO 0600 [facility] Last Admin: 01/01/18 06:09 Dose: 40 mg Thiamine HCl (Vitamin B1 Tab) 100 mg PO DAILY [facility] - Labs Labs: 12/31/17 05:15 12/31/17 15:58 APTT 26.5 Seconds (25.1-36.5) 12/31/17 05:15 - Constitutional Appears: Well - Head Exam Head Exam: ATRAUMATIC, NORMAL INSPECTION, NORMOCEPHALIC - Eye Exam Eye Exam: EOMI, Normal appearance, PERRL Pupil Exam: NORMAL ACCOMODATION, PERRL - ENT Exam ENT Exam: Mucous Membranes Dry, Normal Oropharynx - Neck Exam Neck Exam: Full ROM, Normal Inspection. absent: Lymphadenopathy - Respiratory Exam Respiratory Exam: Decreased Breath Sounds, Wheezes - Cardiovascular Exam Cardiovascular Exam: REGULAR RHYTHM, +S1, +S2. absent: Murmur - GI/Abdominal Exam GI & Abdominal Exam: Soft, Normal Bowel Sounds. absent: Tenderness - Extremities Exam Extremities Exam: Full ROM, Normal Capillary Refill, Normal Inspection. absent : Joint Swelling, Pedal Edema - Back Exam Back Exam: NORMAL INSPECTION - Neurological Exam Neurological Exam: Alert, Awake, CN II-XII Intact, Normal Gait, Oriented x3 Neuro motor strength exam: Left Upper Extremity: 5, Right Upper Extremity: 5, Left Lower Extremity: 5, Right Lower Extremity: 5 Additional comments: b/l hand tremors tongue fasciculation - Psychiatric Exam Psychiatric exam: Normal Affect, Normal Mood - Skin Skin Exam: Warm Additional comments: flushed facial skin Assessment and Plan - Assessment and Plan (Free Text) Assessment: 47 year old female with a past medical history significant for COPD, asthma, alcohol/heroin abuse who was found in unresponsive and in respiratory distress on a park bench after drinking alcohol and sniffing heroin. Admitted to ICU, on narcan drip ggt, bronchodilators, getting stabilized Plan: Alcohol Withdrawal Continue Narcan gtt CT Head: no acute finding UDS positive for opiates Alcohol level of 29 continue ativan 1q6 PRN Banana Bag at 100mls/hr CIWA 4 COPD Exacerbation CXR negative for acute findings ABG pco2 40, ph 7.31 continue solu-medrol 30 Q12 continue Duonebs Q6 JACK and Q2 PRN continue Zithromax and Rocephin Procalcitonin pending procal negative lactate normal GI Prophylaxis: Protonix DVT Prophylaxis: Heparin Diet: Heart Healthy Diet Aspiration, Fall and Seizure precautions Case reviewed and plan discussed with attending Dr Cardona <Soo Cardona - Last Filed: 01/04/18 17:00> Objective - Vital Signs/Intake and Output Vital Signs (last 24 hours): Temp Pulse Resp BP Pulse Ox 98.4 F 62 24 143/94 H 99 01/03/18 14:00 01/03/18 14:00 01/03/18 14:00 01/03/18 14:00 01/03/18 14:00 - Labs Labs: 01/03/18 07:00 01/03/18 07:00 APTT 25.4 Seconds (25.1-36.5) 01/01/18 05:30 Attending/Attestation - Attestation I have personally seen and examined this patient.: Yes I have fully participated in the care of the patient.: Yes I have reviewed all pertinent clinical information, including history, physical exam and plan: Yes Notes (Text): 01/04/18 17:00 Medical record note made by the resident after discussion with my direction and input after the patient was personally seen and examined by me. I have reviewed the chart and agree that the record accurately reflects by personal performance of the history, physical exam, data review, and medical decision-making, in the course for the patient. I have also personally directed the plan of care.
[2018-01-01 07:18] LABS: ALB/GLOB RATIO 1.2 (1.1-1.8); ALBUMIN 3.3 g/dL (3.0-4.8); ALT/SGPT 40 U/L (7-56); AST/SGOT 28 U/L (14-36); BLOOD UREA NITROGEN 12 mg/dL (7-21); CALCIUM 8.9 mg/dL (8.4-10.5); GFR NON-AFRICAN AMERICAN > 60
[2018-01-01 07:32] LABS: BASO # 0.01 K/mm3 (0.0-2.0); BASO % 0.1 % (0.0-3.0); GRAN # 11.44 (1.4-6.5); GRAN % 83.5 % (50.0-68.0); HEMOGLOBIN 13.1 g/dL (12.0-16.0); LYMPH % 7.3 % (22.0-35.0); MEAN CELL VOLUME 97.3 fl (80.0-105.0); MEAN CORPUSCULAR HEMOGLOBIN 31.7 pg (25.0-35.0); MEAN CORPUSCULAR HGB CONC 32.6 g/dl (31.0-37.0); MEAN PLATELET VOLUME 11.2 fl (7.0-11.0); MONO # 1.3 (0.1-0.6); MONO % 9.1 % (1.0-6.0); RBC 4.13 10^6/uL (3.5-6.1); RED CELL DISTRIBUTION WIDTH 14.6 % (11.5-14.5); WHITE BLOOD COUNT 13.7 10^3/ul (4.5-11.0)
--- NOTE | 2018-01-01 08:24 | CP.CCUPN ---
<Ko Moraes - Last Filed: 01/01/18 12:36> CCU Subjective - Physician Review Subjective (Free Text): 01/01/18 08:22 Ko Moraes DO PGY1 - Internal Medicine Blocklayer - ICU Progress Note Patient complaining of chest pain and abdominal pain this AM CP is L sided, reproducible described as a tightness; she reports it is associated w/ her obstructive ariway disease. Abd pain is diffuse however patient has no complaints of N/V/D/C; she reports that these symptoms are consistent w/ her heroin withdrawals 12 System ROS is otherwise wnl CCU Objective - Vital Signs / Intake & Output Vital Signs (Last 4 hours): Vital Signs Pulse Resp BP Pulse Ox 01/01/18 06:40 81 28 H 100 01/01/18 06:30 88 30 H 94 L 01/01/18 06:20 90 27 H 96 01/01/18 06:10 92 H 27 H 94 L 01/01/18 06:05 104 H 27 H 01/01/18 06:04 106 H 28 H 01/01/18 06:03 105 H 27 H 01/01/18 06:02 115 H 27 H 01/01/18 06:01 141/82 01/01/18 06:00 87 01/01/18 05:51 111 H 40 H 01/01/18 05:50 81 23 01/01/18 05:40 89 22 01/01/18 05:30 85 27 H 01/01/18 05:20 81 26 H 01/01/18 05:10 84 56 H 01/01/18 05:00 85 47 H 01/01/18 04:50 88 31 H 01/01/18 04:40 90 43 H 01/01/18 04:30 90 36 H Intake and Output (Last 8hrs): Intake & Output 12/31/17 01/01/18 01/01/18 22:59 06:59 14:59 Intake Total 2250 500 Output Total 1400 2100 Balance 850 -1600 Weight 72.756 kg Intake: IV 1550 500 Right Antecubital 1550 Right Hand 500 Oral 700 Output: Urine 1400 2100 Urine, Voided 1400 2100 Stool 0 Other: # Bowel Movements 0 - Physical Exam Head: Positive for: Atraumatic, Normocephalic Pupils: Positive for: PERRL Extroacular Muscles: Positive for: EOMI Conjunctiva: Positive for: Normal Mouth: Positive for: Moist Mucous Membranes Neck: Positive for: Normal Range of Motion Respiratory/Chest: Positive for: Wheezes, Other (Diffuse wheezing + Ronchi throughout; worse in RLL/LLL) Cardiovascular: Positive for: Regular Rate and Rhythm, Normal S1, S2. Negative for: Murmurs Abdomen: Negative for: Tenderness, Distention, Peritoneal Signs Back: Positive for: Normal Inspection Upper Extremity: Positive for: Other (Carpal tunnel spasm bilaterally). Negative for: Edema Lower Extremity: Positive for: Normal Inspection. Negative for: Edema Neurological: Positive for: GCS=15, CN II-XII Intact, Speech Normal Skin: Positive for: Warm, Dry, Normal Color. Negative for: Rashes Psychiatric: Positive for: Alert, Oriented x 3, Normal Insight, Normal Concentration - Medications Active Medications: Active Medications Generic Name Dose Route Start Last Admin Trade Name Freq PRN Reason Stop Dose Admin Albuterol/Ipratropium 3 ml 12/31/17 02:46 Duoneb 3 Mg/0.5 Mg (3 Ml) Ud IH Q2H PRN Shortness of Breath Albuterol/Ipratropium 3 ml 12/31/17 08:00 01/01/18 07:22 Duoneb 3 Mg/0.5 Mg (3 Ml) Ud IH 3 ml [id number] JACK Administration Folic Acid 1 mg 01/01/18 10:00 Folic Acid PO DAILY JACK Heparin Sodium (Porcine) 5,000 units 12/31/17 10:00 12/31/17 21:17 Heparin SC 5,000 units Q12 JACK Administration Protocol Ceftriaxone Sodium 1 gm in 100 mls @ 100 mls/hr 12/31/17 10:00 12/31/17 09:21 Rocephin 1 Gram Ivpb IVPB 100 mls/hr DAILY JACK Administration Protocol Azithromycin 500 mg in 250 mls @ 167 mls/hr 12/31/17 10:00 12/31/17 09:55 Zithromax 500mg In Ns IVPB 167 mls/hr DAILY JACK Administration Protocol Dexmedetomidine HCl 400 mcg in 100 mls @ 3.588 mls/hr 12/31/17 07:51 Precedex 400mcg/100ml IV .Q24H PRN Symptoms of alcohol withdrawl Protocol 0.2 MCG/KG/HR Sodium Chloride 1,000 mls @ 100 mls/hr 12/31/17 18:45 01/01/18 05:00 Sodium Chloride 0.9% IV 100 mls/hr .Q10H JACK Administration Lorazepam 2 mg 12/31/17 10:32 01/01/18 06:11 Ativan IVP 2 mg Q4 PRN Administration Symptoms of alcohol withdrawl Protocol Methylprednisolone 30 mg 12/31/17 10:00 12/31/17 21:16 Solu-Medrol IVP 30 mg Q12 JACK Administration Multivitamins 1 tab 01/01/18 08:00 Thera Tab PO 0800 JACK Pantoprazole Sodium 40 mg 12/31/17 06:00 01/01/18 06:09 Protonix Ec Tab PO 40 mg 0600 JACK Administration Thiamine HCl 100 mg 01/01/18 10:00 Vitamin B1 Tab PO DAILY JACK - Patient Studies Lab Studies: Lab Studies 01/01/18 01/01/18 01/01/18 Range/Units 05:30 05:30 05:30 WBC 13.7 H D (4.5-11.0) 10^3/ul RBC 4.13 (3.5-6.1) 10^6/uL Hgb 13.1 (12.0-16.0) g/dL Hct 40.2 (36.0-48.0) % MCV 97.3 (80.0-105.0) fl MCH 31.7 (25.0-35.0) pg MCHC 32.6 (31.0-37.0) g/dl RDW 14.6 H (11.5-14.5) % Plt Count 323 (120.0-450.0) 10^3/uL MPV 11.2 H (7.0-11.0) fl Gran % 83.5 H (50.0-68.0) % Lymph % (Auto) 7.3 L (22.0-35.0) % [place]ill % (Auto) 9.1 H (1.0-6.0) % Eos % (Auto) 0.0 L (1.5-5.0) % Baso % (Auto) 0.1 (0.0-3.0) % Gran # 11.44 H (1.4-6.5) Lymph # (Auto) 1.0 L (1.2-3.4) [place] # (Auto) 1.3 H (0.1-0.6) Eos # (Auto) 0.0 (0.0-0.7) Baso # (Auto) 0.01 (0.0-2.0) K/mm3 APTT 25.4 (25.1-36.5) Seconds pCO2 (35-45) mm/Hg pO2 (80-100) mm/Hg HCO3 (21-28) mmol/L ABG pH (7.35-7.45) ABG Total CO2 (22-28) mmol.L ABG O2 Saturation (95-98) % ABG O2 Content (15-23) ML/dl ABG Base Excess (-2.0-3.0) mmol/L ABG Hemoglobin (11.7-17.4) g/dL ABG Carboxyhemoglobin (0.5-1.5) % POC ABG HHb (Measured) (0-5) % ABG Methemoglobin (0.0-3.0) % ABG O2 Capacity (16-24) mL/dl Hgb O2 Saturation (95.0-98.0) % FiO2 % Sodium 136 (132-148) mmol/L Potassium 4.4 (3.6-5.0) mmol/L Chloride 104 (98-107) mmol/L Carbon Dioxide 28 (21-33) mmol/L Anion Gap 9 L (10-20) BUN 12 (7-21) mg/dL Creatinine 0.6 L (0.7-1.2) mg/dl Est GFR ( Amer) > 60 Est GFR (Non-Af Amer) > 60 Random Glucose 159 H (70-110) mg/dL Calcium 8.9 (8.4-10.5) mg/dL Phosphorus 3.1 (2.5-4.5) mg/dL Magnesium 2.0 (1.7-2.2) mg/dL Total Bilirubin 0.5 (0.2-1.3) mg/dL AST 28 (14-36) U/L ALT 40 (7-56) U/L Alkaline Phosphatase 65 (38-126) U/L Total Protein 6.1 (5.8-8.3) g/dL Albumin 3.3 (3.0-4.8) g/dL Globulin 2.8 gm/dL Albumin/Globulin Ratio 1.2 (1.1-1.8) Procalcitonin (0.19-0.49) NG/ML 12/31/17 12/31/17 12/31/17 Range/Units 15:58 15:53 05:15 WBC (4.5-11.0) 10^3/ul RBC (3.5-6.1) 10^6/uL Hgb (12.0-16.0) g/dL Hct (36.0-48.0) % MCV (80.0-105.0) fl MCH (25.0-35.0) pg MCHC (31.0-37.0) g/dl RDW (11.5-14.5) % Plt Count (120.0-450.0) 10^3/uL MPV (7.0-11.0) fl Gran % (50.0-68.0) % Lymph % (Auto) (22.0-35.0) % [place]ill % (Auto) (1.0-6.0) % Eos % (Auto) (1.5-5.0) % Baso % (Auto) (0.0-3.0) % Gran # (1.4-6.5) Lymph # (Auto) (1.2-3.4) Estill # (Auto) (0.1-0.6) Eos # (Auto) (0.0-0.7) Baso # (Auto) (0.0-2.0) K/mm3 APTT (25.1-36.5) Seconds pCO2 45 (35-45) mm/Hg pO2 96.0 (80-100) mm/Hg HCO3 27.2 (21-28) mmol/L ABG pH 7.39 (7.35-7.45) ABG Total CO2 28.6 H (22-28) mmol.L ABG O2 Saturation 99.2 H (95-98) % ABG O2 Content 17.1 (15-23) ML/dl ABG Base Excess 1.8 (-2.0-3.0) mmol/L ABG Hemoglobin 12.6 (11.7-17.4) g/dL ABG Carboxyhemoglobin 2.1 H (0.5-1.5) % POC ABG HHb (Measured) 0.8 (0-5) % ABG Methemoglobin 1.0 (0.0-3.0) % ABG O2 Capacity 17.2 (16-24) mL/dl Hgb O2 Saturation 96.1 (95.0-98.0) % FiO2 32.0 % Sodium 133 (132-148) mmol/L Potassium 4.5 (3.6-5.0) mmol/L Chloride 99 (98-107) mmol/L Carbon Dioxide 26 (21-33) mmol/L Anion Gap 12 (10-20) BUN 8 (7-21) mg/dL Creatinine 0.6 L (0.7-1.2) mg/dl Est GFR ( Amer) > 60 Est GFR (Non-Af Amer) > 60 Random Glucose 158 H (70-110) mg/dL Calcium 9.0 (8.4-10.5) mg/dL Phosphorus (2.5-4.5) mg/dL Magnesium (1.7-2.2) mg/dL Total Bilirubin (0.2-1.3) mg/dL AST (14-36) U/L ALT (7-56) U/L Alkaline Phosphatase (38-126) U/L Total Protein (5.8-8.3) g/dL Albumin (3.0-4.8) g/dL Globulin gm/dL Albumin/Globulin Ratio (1.1-1.8) Procalcitonin < 0.05 L (0.19-0.49) NG/ML Laboratory Results - last 24 hr 12/31/17 12/31/17 12/31/17 05:15 15:53 15:58 WBC RBC Hgb Hct MCV MCH MCHC RDW Plt Count MPV Gran % Lymph % (Auto) [place] % (Auto) Eos % (Auto) Baso % (Auto) Gran # Lymph # (Auto) [place] # (Auto) Eos # (Auto) Baso # (Auto) APTT pCO2 45 pO2 96.0 HCO3 27.2 ABG pH 7.39 ABG Total CO2 28.6 H ABG O2 Saturation 99.2 H ABG O2 Content 17.1 ABG Base Excess 1.8 ABG Hemoglobin 12.6 ABG Carboxyhemoglobin 2.1 H POC ABG HHb (Measured) 0.8 ABG Methemoglobin 1.0 ABG O2 Capacity 17.2 Hgb O2 Saturation 96.1 FiO2 32.0 Sodium 133 Potassium 4.5 Chloride 99 Carbon Dioxide 26 Anion Gap 12 BUN 8 Creatinine 0.6 L Est GFR ( Amer) > 60 Est GFR (Non-Af Amer) > 60 Random Glucose 158 H Calcium 9.0 Phosphorus Magnesium Total Bilirubin AST ALT Alkaline Phosphatase Total Protein Albumin Globulin Albumin/Globulin Ratio Procalcitonin < 0.05 L 01/01/18 01/01/18 01/01/18 05:30 05:30 05:30 WBC 13.7 H D RBC 4.13 Hgb 13.1 Hct 40.2 MCV 97.3 MCH 31.7 MCHC 32.6 RDW 14.6 H Plt Count 323 MPV 11.2 H Gran % 83.5 H Lymph % (Auto) 7.3 L [place] % (Auto) 9.1 H Eos % (Auto) 0.0 L Baso % (Auto) 0.1 Gran # 11.44 H Lymph # (Auto) 1.0 L [place] # (Auto) 1.3 H Eos # (Auto) 0.0 Baso # (Auto) 0.01 APTT 25.4 pCO2 pO2 HCO3 ABG pH ABG Total CO2 ABG O2 Saturation ABG O2 Content ABG Base Excess ABG Hemoglobin ABG Carboxyhemoglobin POC ABG HHb (Measured) ABG Methemoglobin ABG O2 Capacity Hgb O2 Saturation FiO2 Sodium 136 Potassium 4.4 Chloride 104 Carbon Dioxide 28 Anion Gap 9 L BUN 12 Creatinine 0.6 L Est GFR ( Amer) > 60 Est GFR (Non-Af Amer) > 60 Random Glucose 159 H Calcium 8.9 Phosphorus 3.1 Magnesium 2.0 Total Bilirubin 0.5 AST 28 ALT 40 Alkaline Phosphatase 65 Total Protein 6.1 Albumin 3.3 Globulin 2.8 Albumin/Globulin Ratio 1.2 Procalcitonin Review of Systems - Review of Systems All systems: reviewed and no additional remarkable complaints except Review of Systems: as per HPI Critical Care Progress Note - Nutrition Nutrition: Nutrition Category Date Time Status Heart Healthy Diet [DIET] Diets 12/31/17 Breakfast Active Assessment/Plan - Assessment and Plan (Free Text) Assessment: 47 year old female with a past medical history significant for COPD, asthma, alcohol/heroin abuse, frequent [place] [facility] [place] and hepatitis C with liver cirrhosis, presents for heroin overdose requiring Narcan drip, also found to have hypercapneic respiratory acidosis in setting of COPD exacerbation as well as seizures during admit. Neuro: AAO4 Seizure Precautions Neuro Checks Heroin OD s/p Narcan drip Seizure ML 2/2 Opiate withdrawal EtOH Withdrawals; Last CIWA:0 Ativan 2 Q4 PRN for Seizure + EtOH Withdrawal C/w Folate, Thiamine, MultiVit Monitor Cardio: Normotensive + Tachy C/o CP this AM - L sided, reproducible, tight. Not likely 2/2 cardiac in nature ; Reports this is associated w/ her obstructive airway disease. Repeat trop and EKG wnl Tachycardia ML 2/2 Opiate withdrawal/ EtOH Withdrawal Will Cont to monitor Respiratory: COPD Exacerbation PNA less likely; Trops wnl; CXR wnl Will DC Ceftriaxone C/w Azithromycin C/w Duonebs Q6 JACK / Q2 PRN Will DC Solumedrol 30 Q12 (Last dose tonight) Start prednisone 40 QD starting tmmr Satting well on HiFlow NC; ABG 7.39/46/149/26/99% GI: C/o abd pain ML 2/2 Withdrawals Pt. reports BM this AM [place] sign negative protonix. HHD Renal: BUN 12/0.6 Maintain lytes, maintain euvolemia. Heme: Stable. monitor PPX: protonix, heparin sq Seen, Examined, Discussed w/ attending Dr. Aspen Moraes DO PGY1 Internal Medicine Blocklayer - Date & Time Date: 01/01/18 Time: 12:39 <AspenBilal - Last Filed: 01/01/18 17:08> CCU Objective - Vital Signs / Intake & Output Vital Signs (Last 4 hours): Vital Signs Pulse Resp Pulse Ox 01/01/18 16:30 91 H 34 H 88 L 01/01/18 16:20 94 H 29 H 86 L 01/01/18 16:12 94 H 36 H 01/01/18 16:11 100 H 50 H 01/01/18 16:10 104 H 48 H 01/01/18 16:08 89 27 H 01/01/18 16:07 94 H 01/01/18 16:06 91 H 34 H 01/01/18 16:04 93 H 31 H 01/01/18 16:00 75 31 H 90 L 01/01/18 15:50 70 31 H 90 L 01/01/18 15:40 79 38 H 92 L 01/01/18 15:30 92 H 33 H 01/01/18 15:29 101 H 27 H 01/01/18 15:28 105 H 62 H 01/01/18 15:27 97 H 40 H 01/01/18 15:26 94 H 44 H 01/01/18 15:25 94 H 22 01/01/18 15:24 105 H 01/01/18 15:23 111 H 53 H 01/01/18 15:20 63 32 H 94 L 01/01/18 15:10 76 33 H 93 L 01/01/18 15:00 75 33 H 91 L 01/01/18 14:50 73 31 H 89 L 01/01/18 14:40 84 35 H 81 L 01/01/18 14:30 95 H 91 L 01/01/18 14:23 102 H 29 H 01/01/18 14:20 95 H 40 H 78 L 01/01/18 14:17 98 H 01/01/18 14:16 101 H 31 H 01/01/18 14:10 100 H 158 H 91 L 01/01/18 14:00 93 H 34 H 90 L 01/01/18 13:50 97 H 40 H 89 L 01/01/18 13:40 98 H 32 H 89 L 01/01/18 13:30 97 H 33 H 89 L 01/01/18 13:20 100 H 30 H 88 L 01/01/18 13:10 98 H 32 H 89 L Intake and Output (Last 8hrs): Intake & Output 01/01/18 01/01/18 01/01/18 06:59 14:59 22:59 Intake Total 500 Output Total 2100 Balance -1600 Weight 160 lb 6.4 oz Intake: IV 500 Right Hand 500 Output: Urine 2100 Urine, Voided 2100 Stool 0 - Medications Active Medications: Active Medications Generic Name Dose Route Start Last Admin Trade Name Freq PRN Reason Stop Dose Admin Albuterol/Ipratropium 3 ml 12/31/17 02:46 Duoneb 3 Mg/0.5 Mg (3 Ml) Ud IH Q2H PRN Shortness of Breath Albuterol/Ipratropium 3 ml 12/31/17 08:00 01/01/18 13:10 Duoneb 3 Mg/0.5 Mg (3 Ml) Ud IH 3 ml [id number] JACK Administration Folic Acid 1 mg 01/01/18 10:00 01/01/18 10:09 Folic Acid PO 1 mg DAILY JACK Administration Heparin Sodium (Porcine) 5,000 units 12/31/17 10:00 01/01/18 10:09 Heparin SC 5,000 units Q12 JACK Administration Protocol Azithromycin 500 mg in 250 mls @ 167 mls/hr 12/31/17 10:00 01/01/18 10:13 Zithromax 500mg In Ns IVPB 167 mls/hr DAILY JACK Administration Protocol Sodium Chloride 1,000 mls @ 100 mls/hr 12/31/17 18:45 01/01/18 05:00 Sodium Chloride 0.9% IV 100 mls/hr .Q10H JACK Administration Lorazepam 2 mg 12/31/17 10:32 01/01/18 12:33 Ativan IVP 2 mg Q4 PRN Administration Symptoms of alcohol withdrawl Protocol Methylprednisolone 30 mg 12/31/17 10:00 01/01/18 10:09 Solu-Medrol IVP 01/02/18 00:00 30 mg Q12 JACK Administration Multivitamins 1 tab 01/01/18 08:00 01/01/18 10:09 Thera Tab PO 1 tab 0800 JACK Administration Pantoprazole Sodium 40 mg 12/31/17 06:00 01/01/18 06:09 Protonix Ec Tab PO 40 mg 0600 JACK Administration Prednisone 40 mg 01/02/18 10:00 Prednisone Tab PO DAILY JACK Thiamine HCl 100 mg 01/01/18 10:00 01/01/18 10:20 Vitamin B1 Tab PO 100 mg DAILY JACK Administration - Patient Studies Lab Studies: Lab Studies 01/01/18 01/01/18 01/01/18 Range/Units 08:33 05:30 05:30 WBC (4.5-11.0) 10^3/ul RBC (3.5-6.1) 10^6/uL Hgb (12.0-16.0) g/dL Hct (36.0-48.0) % MCV (80.0-105.0) fl MCH (25.0-35.0) pg MCHC (31.0-37.0) g/dl RDW (11.5-14.5) % Plt Count (120.0-450.0) 10^3/uL MPV (7.0-11.0) fl Gran % (50.0-68.0) % Lymph % (Auto) (22.0-35.0) % [place]ill % (Auto) (1.0-6.0) % Eos % (Auto) (1.5-5.0) % Baso % (Auto) (0.0-3.0) % Gran # (1.4-6.5) Lymph # (Auto) (1.2-3.4) Estill # (Auto) (0.1-0.6) Eos # (Auto) (0.0-0.7) Baso # (Auto) (0.0-2.0) K/mm3 APTT 25.4 (25.1-36.5) Seconds Sodium 136 (132-148) mmol/L Potassium 4.4 (3.6-5.0) mmol/L Chloride 104 (98-107) mmol/L Carbon Dioxide 28 (21-33) mmol/L Anion Gap 9 L (10-20) BUN 12 (7-21) mg/dL Creatinine 0.6 L (0.7-1.2) mg/dl Est GFR ( Amer) > 60 Est GFR (Non-Af Amer) > 60 Random Glucose 159 H (70-110) mg/dL Calcium 8.9 (8.4-10.5) mg/dL Phosphorus 3.1 (2.5-4.5) mg/dL Magnesium 2.0 (1.7-2.2) mg/dL Total Bilirubin 0.5 (0.2-1.3) mg/dL AST 28 (14-36) U/L ALT 40 (7-56) U/L Alkaline Phosphatase 65 (38-126) U/L Troponin I < 0.01 D ng/mL Total Protein 6.1 (5.8-8.3) g/dL Albumin 3.3 (3.0-4.8) g/dL Globulin 2.8 gm/dL Albumin/Globulin Ratio 1.2 (1.1-1.8) //18 Range/Units 05:30 WBC 13.7 H D (4.5-11.0) 10^3/ul RBC 4.13 (3.5-6.1) 10^6/uL Hgb 13.1 (12.0-16.0) g/dL Hct 40.2 (36.0-48.0) % MCV 97.3 (80.0-105.0) fl MCH 31.7 (25.0-35.0) pg MCHC 32.6 (31.0-37.0) g/dl RDW 14.6 H (11.5-14.5) % Plt Count 323 (120.0-450.0) 10^3/uL MPV 11.2 H (7.0-11.0) fl Gran % 83.5 H (50.0-68.0) % Lymph % (Auto) 7.3 L (22.0-35.0) % [place] % (Auto) 9.1 H (1.0-6.0) % Eos % (Auto) 0.0 L (1.5-5.0) % Baso % (Auto) 0.1 (0.0-3.0) % Gran # 11.44 H (1.4-6.5) Lymph # (Auto) 1.0 L (1.2-3.4) [place] # (Auto) 1.3 H (0.1-0.6) Eos # (Auto) 0.0 (0.0-0.7) Baso # (Auto) 0.01 (0.0-2.0) K/mm3 APTT (25.1-36.5) Seconds Sodium (132-148) mmol/L Potassium (3.6-5.0) mmol/L Chloride (98-107) mmol/L Carbon Dioxide (21-33) mmol/L Anion Gap (10-20) BUN (7-21) mg/dL Creatinine (0.7-1.2) mg/dl Est GFR ( Amer) Est GFR (Non-Af Amer) Random Glucose (70-110) mg/dL Calcium (8.4-10.5) mg/dL Phosphorus (2.5-4.5) mg/dL Magnesium (1.7-2.2) mg/dL Total Bilirubin (0.2-1.3) mg/dL AST (14-36) U/L ALT (7-56) U/L Alkaline Phosphatase (38-126) U/L Troponin I ng/mL Total Protein (5.8-8.3) g/dL Albumin (3.0-4.8) g/dL Globulin gm/dL Albumin/Globulin Ratio (1.1-1.8) Laboratory Results - last 24 hr 01/01/18 01/01/18 01/01/18 05:30 05:30 05:30 WBC 13.7 H D RBC 4.13 Hgb 13.1 Hct 40.2 MCV 97.3 MCH 31.7 MCHC 32.6 RDW 14.6 H Plt Count 323 MPV 11.2 H Gran % 83.5 H Lymph % (Auto) 7.3 L [place] % (Auto) 9.1 H Eos % (Auto) 0.0 L Baso % (Auto) 0.1 Gran # 11.44 H Lymph # (Auto) 1.0 L [place] # (Auto) 1.3 H Eos # (Auto) 0.0 Baso # (Auto) 0.01 APTT 25.4 Sodium 136 Potassium 4.4 Chloride 104 Carbon Dioxide 28 Anion Gap 9 L BUN 12 Creatinine 0.6 L Est GFR ( Amer) > 60 Est GFR (Non-Af Amer) > 60 Random Glucose 159 H Calcium 8.9 Phosphorus 3.1 Magnesium 2.0 Total Bilirubin 0.5 AST 28 ALT 40 Alkaline Phosphatase 65 Troponin I Total Protein 6.1 Albumin 3.3 Globulin 2.8 Albumin/Globulin Ratio 1.2 01/01/18 08:33 WBC RBC Hgb Hct MCV MCH MCHC RDW Plt Count MPV Gran % Lymph % (Auto) [place] % (Auto) Eos % (Auto) Baso % (Auto) Gran # Lymph # (Auto) [place] # (Auto) Eos # (Auto) Baso # (Auto) APTT Sodium Potassium Chloride Carbon Dioxide Anion Gap BUN Creatinine Est GFR ( Amer) Est GFR (Non-Af Amer) Random Glucose Calcium Phosphorus Magnesium Total Bilirubin AST ALT Alkaline Phosphatase Troponin I < 0.01 D Total Protein Albumin Globulin Albumin/Globulin Ratio EKG/Cardiology Studies: Cardiology / EKG Studies 01/01/18 ELECTROCARDIOGRAM Routine Comment: Reason For Exam: pt c/o cp Critical Care Progress Note - Nutrition Nutrition: Nutrition Category Date Time Status Heart Healthy Diet [DIET] Diets 12/31/17 Breakfast Active Addendum Addendum: 01/01/18 17:08 ICU Attending Addendum: Patient seen and examined. Case reviewed on round with housestaff. Agree with resident note above with the following additions/exceptions: 47 year old female with a past medical history significant for COPD, asthma, alcohol/heroin abuse, hep c admitted with heroin OD Neuro and resp status stable now procal <0.05 - can d/c abx for cap leave on azithro for COPD 40PO pred for total 5 days of steroids nebs ok to transfer with monitor sinus tachy possible from withdrawl Rest of care as noted above. Christos Louise MD Sound Engineering Technician
[2018-01-01] MEDS: MethylPREDNISolone 40 mg Vial IVP SCH ×2 (10:09→22:11)
[2018-01-01] MEDS: Multivitamin Therapeutic Tab PO SCH (10:09)
[2018-01-01] MEDS: cefTRIAXone 1 gm 1 GM/100 ML BAG IVPB SCH (10:11)
[2018-01-01] MEDS: Azithromycin 500MG/NS 250ml 500 MG/250 ML BAG IVPB SCH (10:13)
[2018-01-02] MEDS: Sodium Chloride 0.9% 1,000 ML IV SCH ×3 (01:00→22:25)
[2018-01-02] MEDS: Albuterol-Ipratrop 3 mg / 0.5 (3 ml) UD IH SCH ×4 (01:01→19:21)
[2018-01-02] MEDS: Pantoprazole 40 mg EC Tab PO SCH (05:52)
--- NOTE | 2018-01-02 06:25 | CP.PCM.PN ---
<Aquilino Haley - Last Filed: 01/02/18 14:38> Subjective - Date & Time of Evaluation Date of Evaluation: 01/02/18 Time of Evaluation: 06:10 - Subjective Subjective: Aquilino Haley DO PGY-1, Internal Medicine Resident. Hospitalist Progress Note Patient seen and examined at bedside in ICU. Patient states that her breathing pattern is getting better. Using nebulizer. No acute events overnight. She is not ambulating out of bed. Patient denied CP, palpitations, headache, fever. ROS is otherwise negative Objective - Vital Signs/Intake and Output Vital Signs (last 24 hours): Temp Pulse Resp BP Pulse Ox 98.4 F 80 20 146/77 98 01/02/18 05:58 01/02/18 05:58 01/02/18 05:58 01/02/18 05:58 01/02/18 05:58 Intake and Output: 01/01/18 01/02/18 18:59 06:59 Intake Total 2000 790 Output Total 800 1000 Balance 1200 -210 - Medications Medications: Current Medications Albuterol/Ipratropium (Duoneb 3 Mg/0.5 Mg (3 Ml) Ud) 3 ml IH Q2H PRN PRN Reason: Shortness of Breath Albuterol/Ipratropium (Duoneb 3 Mg/0.5 Mg (3 Ml) Ud) 3 ml IH [id number] Last Admin: 01/02/18 01:01 Dose: 3 ml Folic Acid (Folic Acid) 1 mg PO DAILY JACK Last Admin: 01/01/18 10:09 Dose: 1 mg Heparin Sodium (Porcine) (Heparin) 5,000 units SC Q12 JACK PRN Reason: Protocol Last Admin: 01/01/18 22:12 Dose: 5,000 units Azithromycin (Zithromax 500mg In Ns) 500 mg in 250 mls @ 167 mls/hr IVPB DAILY JACK PRN Reason: Protocol Last Admin: 01/01/18 10:13 Dose: 167 mls/hr Sodium Chloride (Sodium Chloride 0.9%) 1,000 mls @ 100 mls/hr IV .Q10H JACK Last Admin: 01/02/18 05:52 Dose: 100 mls/hr Lorazepam (Ativan) 2 mg IVP Q4 PRN; Protocol PRN Reason: Symptoms of alcohol withdrawl Last Admin: 01/01/18 22:11 Dose: 2 mg Multivitamins (Thera Tab) 1 tab PO 0800 [facility] Last Admin: 01/01/18 10:09 Dose: 1 tab Pantoprazole Sodium (Protonix Ec Tab) 40 mg PO 0600 [facility] Last Admin: 01/02/18 05:52 Dose: 40 mg Prednisone (Prednisone Tab) 40 mg PO DAILY [facility] Thiamine HCl (Vitamin B1 Tab) 100 mg PO DAILY [facility] Last Admin: 01/01/18 10:20 Dose: 100 mg - Labs Labs: 01/01/18 05:30 01/01/18 05:30 APTT 25.4 Seconds (25.1-36.5) 01/01/18 05:30 - Additional Findings Additional findings: - Constitutional Appears: Well - Head Exam Head Exam: ATRAUMATIC, NORMAL INSPECTION, NORMOCEPHALIC - Eye Exam Eye Exam: EOMI, Normal appearance, PERRL Pupil Exam: NORMAL ACCOMODATION, PERRL - ENT Exam ENT Exam: Mucous Membranes Dry, Normal Oropharynx - Neck Exam Neck Exam: Full ROM, Normal Inspection. absent: Lymphadenopathy - Respiratory Exam Respiratory Exam: Decreased Breath Sounds, Wheezes - Cardiovascular Exam Cardiovascular Exam: REGULAR RHYTHM, +S1, +S2. absent: Murmur - GI/Abdominal Exam GI & Abdominal Exam: Soft, Normal Bowel Sounds. absent: Tenderness - Extremities Exam Extremities Exam: Full ROM, Normal Capillary Refill, Normal Inspection. absent : Joint Swelling, Pedal Edema - Back Exam Back Exam: NORMAL INSPECTION - Neurological Exam Neurological Exam: Alert, Awake, CN II-XII Intact, Normal Gait, Oriented x3 Neuro motor strength exam: Left Upper Extremity: 5, Right Upper Extremity: 5, Left Lower Extremity: 5, Right Lower Extremity: 5 Additional comments: b/l hand tremors.getting better tongue fasciculation. getting better Assessment and Plan - Assessment and Plan (Free Text) Assessment: 47 year old female with a past medical history significant for COPD, asthma, alcohol/heroin abuse who was found in unresponsive and in respiratory distress on a park bench after drinking alcohol and sniffing heroin. Admitted to ICU, on narcan drip ggt, bronchodilators, getting stabilized. Transfered to med/surg today Plan: Alcohol Withdrawal CT Head: no acute finding UDS positive for opiates Alcohol level of 29 on admission continue ativan 1q6 PRN continue folic acid, thiamine, MVI CIWA 4 COPD Exacerbation CXR negative for acute findings ABG pco2 40, ph 7.31 on 12/31 continue Duonebs Q6 JACK and Q2 PRN continue prednisone 40mg po daily continue Zithromax procal negative lactate normal wean off O2 patient is in no respiratory distress. transferred to med/surg floor GI Prophylaxis: Protonix DVT Prophylaxis: Heparin Diet: Heart Healthy Diet Aspiration, Fall and Seizure precautions Case reviewed and plan discussed with attending Dr Cardona <Soo Cardona - Last Filed: 01/04/18 17:01> Objective - Vital Signs/Intake and Output Vital Signs (last 24 hours): Temp Pulse Resp BP Pulse Ox 98.4 F 62 24 143/94 H 99 01/03/18 14:00 01/03/18 14:00 01/03/18 14:00 01/03/18 14:00 01/03/18 14:00 - Labs Labs: 01/03/18 07:00 01/03/18 07:00 APTT 25.4 Seconds (25.1-36.5) 01/01/18 05:30 Attending/Attestation - Attestation I have personally seen and examined this patient.: Yes I have fully participated in the care of the patient.: Yes I have reviewed all pertinent clinical information, including history, physical exam and plan: Yes Notes (Text): 01/04/18 17:00 Medical record note made by the resident after discussion with my direction and input after the patient was personally seen and examined by me. I have reviewed the chart and agree that the record accurately reflects by personal performance of the history, physical exam, data review, and medical decision-making, in the course for the patient. I have also personally directed the plan of care.
[2018-01-02] MEDS: Multivitamin Therapeutic Tab PO SCH (08:23)
[2018-01-02] MEDS: Azithromycin 500MG/NS 250ml 500 MG/250 ML BAG IVPB SCH (10:14)
[2018-01-02 11:02] LABS: GRAN # 9.3 (1.4-6.5); HEMOGLOBIN 12.3 g/dL (12.0-16.0); LYMPH # 1.3 (1.2-3.4); LYMPH % 10.9 % (22.0-35.0); MEAN CELL VOLUME 97.7 fl (80.0-105.0); MEAN CORPUSCULAR HGB CONC 32.8 g/dl (31.0-37.0); MEAN PLATELET VOLUME 10.6 fl (7.0-11.0); MONO # 0.9 (0.1-0.6); MONO % 8.1 % (1.0-6.0); RBC 3.84 10^6/uL (3.5-6.1); RED CELL DISTRIBUTION WIDTH 14.7 % (11.5-14.5); WHITE BLOOD COUNT 11.5 10^3/ul (4.5-11.0)
[2018-01-02 11:19] LABS: ALB/GLOB RATIO 1.1 (1.1-1.8); ALBUMIN 2.9 g/dL (3.0-4.8); ALT/SGPT 37 U/L (7-56); AST/SGOT 29 U/L (14-36); BLOOD UREA NITROGEN 11 mg/dL (7-21); CALCIUM 7.8 mg/dL (8.4-10.5); GFR NON-AFRICAN AMERICAN > 60
--- NOTE | 2018-01-02 14:07 | CARD ---
APPROVED REPORT Date of service: 01/01/2018 EKG Measurement Heart [id number] <Conclusion> Normal sinus rhythm Normal ECG
[2018-01-02 22:36] VITALS: O2SAT 99
[2018-01-03] MEDS: Albuterol-Ipratrop 3 mg / 0.5 (3 ml) UD IH SCH ×3 (01:17→14:16)
[2018-01-03] MEDS: Pantoprazole 40 mg EC Tab PO SCH (06:34)
[2018-01-03 07:41] LABS: BASO # 0.01 K/mm3 (0.0-2.0); BASO % 0.1 % (0.0-3.0); EOS # 0.1 (0.0-0.7); EOS % 0.6 % (1.5-5.0); GRAN # 6.2 (1.4-6.5); GRAN % 59.3 % (50.0-68.0); HEMOGLOBIN 12.8 g/dL (12.0-16.0); LYMPH # 3.1 (1.2-3.4); MEAN CELL VOLUME 98.8 fl (80.0-105.0); MEAN CORPUSCULAR HEMOGLOBIN 31.5 pg (25.0-35.0); MEAN CORPUSCULAR HGB CONC 31.9 g/dl (31.0-37.0); MEAN PLATELET VOLUME 10.1 fl (7.0-11.0); RBC 4.06 10^6/uL (3.5-6.1); RED CELL DISTRIBUTION WIDTH 14.7 % (11.5-14.5); WHITE BLOOD COUNT 10.5 10^3/ul (4.5-11.0)
[2018-01-03 08:09] LABS: ALB/GLOB RATIO 1.1 (1.1-1.8); ALBUMIN 2.9 g/dL (3.0-4.8); ALT/SGPT 38 U/L (7-56); AST/SGOT 32 U/L (14-36); BLOOD UREA NITROGEN 13 mg/dL (7-21); CALCIUM 7.8 mg/dL (8.4-10.5); GFR NON-AFRICAN AMERICAN > 60
[2018-01-03] MEDS: Multivitamin Therapeutic Tab PO SCH (09:10)
[2018-01-03] MEDS: Azithromycin 500MG/NS 250ml 500 MG/250 ML BAG IVPB SCH (09:11)
[2018-01-03] MEDS: Sodium Chloride 0.9% 1,000 ML IV SCH (09:44)
[2018-01-03 14:23] VITALS: BP 143/94; PULSE 62; RESP 24; TEMP 98.4
--- NOTE | 2018-01-03 17:24 | CP.PCM.DIS ---
<Aquilino Haley - Last Filed: 01/03/18 20:35> Provider - Provider Date of Admission: 12/31/17 01:53 Attending physician: Soo Cardona MD Time Spent in preparation of Discharge (in minutes): 45 Hospital Course - Lab Results Lab Results: Micro Results 12/31/17 05:50 Nose MRSA Culture (Admit) - Final MRSA NOT DETECTED Most Recent Lab Values WBC 10.5 10^3/ul (4.5-11.0) 01/03/18 07:00 RBC 4.06 10^6/uL (3.5-6.1) 01/03/18 07:00 Hgb 12.8 g/dL (12.0-16.0) 01/03/18 07:00 Hct 40.1 % (36.0-48.0) 01/03/18 07:00 MCV 98.8 fl (80.0-105.0) 01/03/18 07:00 MCH 31.5 pg (25.0-35.0) 01/03/18 07:00 MCHC 31.9 g/dl (31.0-37.0) 01/03/18 07:00 RDW 14.7 % (11.5-14.5) H 01/03/18 07:00 Plt Count 304 10^3/uL (120.0-450.0) 01/03/18 07:00 MPV 10.1 fl (7.0-11.0) 01/03/18 07:00 Gran % 59.3 % (50.0-68.0) 01/03/18 07:00 Lymph % (Auto) 30.0 % (22.0-35.0) 01/03/18 07:00 [place] % (Auto) 10.0 % (1.0-6.0) H 01/03/18 07:00 Eos % (Auto) 0.6 % (1.5-5.0) L 01/03/18 07:00 Baso % (Auto) 0.1 % (0.0-3.0) 01/03/18 07:00 Gran # 6.20 (1.4-6.5) 01/03/18 07:00 Lymph # (Auto) 3.1 (1.2-3.4) 01/03/18 07:00 [place] # (Auto) 1.0 (0.1-0.6) H 01/03/18 07:00 Eos # (Auto) 0.1 (0.0-0.7) 01/03/18 07:00 Baso # (Auto) 0.01 K/mm3 (0.0-2.0) 01/03/18 07:00 APTT 25.4 Seconds (25.1-36.5) 01/01/18 05:30 pCO2 45 mm/Hg (35-45) 12/31/17 15:53 pO2 96.0 mm/Hg (80-100) 12/31/17 15:53 HCO3 27.2 mmol/L (21-28) 12/31/17 15:53 ABG pH 7.39 (7.35-7.45) 12/31/17 15:53 ABG Total CO2 28.6 mmol.L (22-28) H 12/31/17 15:53 ABG O2 Saturation 99.2 % (95-98) H 12/31/17 15:53 ABG O2 Content 17.1 ML/dl (15-23) 12/31/17 15:53 ABG Base Excess 1.8 mmol/L (-2.0-3.0) 12/31/17 15:53 ABG Hemoglobin 12.6 g/dL (11.7-17.4) 12/31/17 15:53 ABG Carboxyhemoglobin 2.1 % (0.5-1.5) H 12/31/17 15:53 POC ABG HHb (Measured) 0.8 % (0-5) 12/31/17 15:53 ABG Methemoglobin 1.0 % (0.0-3.0) 12/31/17 15:53 ABG O2 Capacity 17.2 mL/dl (16-24) 12/31/17 15:53 ABG Potassium 2.6 mmol/L (3.6-5.2) L 12/31/17 07:00 Hgb O2 Saturation 96.1 % (95.0-98.0) 12/31/17 15:53 Sodium 143.0 mmol/L (132-148) 12/31/17 07:00 Chloride 114.0 mmol/L (98-107) H 12/31/17 07:00 Glucose 91 mg/dl (65-105) 12/31/17 07:00 Lactate 1.0 mmol/L (0.7-2.1) 12/31/17 07:00 FiO2 32.0 % 12/31/17 15:53 Sodium 137 mmol/L (132-148) 01/03/18 07:00 Potassium 4.3 mmol/L (3.6-5.0) 01/03/18 07:00 Chloride 106 mmol/L (98-107) 01/03/18 07:00 Carbon Dioxide 27 mmol/L (21-33) 01/03/18 07:00 Anion Gap 8 (10-20) L 01/03/18 07:00 BUN 13 mg/dL (7-21) 01/03/18 07:00 Creatinine 0.6 mg/dl (0.7-1.2) L 01/03/18 07:00 Est GFR ( Amer) > 60 01/03/18 07:00 Est GFR (Non-Af Amer) > 60 01/03/18 07:00 Random Glucose 84 mg/dL (70-110) 01/03/18 07:00 Calcium 7.8 mg/dL (8.4-10.5) L 01/03/18 07:00 Phosphorus 4.4 mg/dL (2.5-4.5) 01/03/18 07:00 Magnesium 2.0 mg/dL (1.7-2.2) 01/03/18 07:00 Total Bilirubin 0.3 mg/dL (0.2-1.3) 01/03/18 07:00 AST 32 U/L (14-36) 01/03/18 07:00 ALT 38 U/L (7-56) 01/03/18 07:00 Alkaline Phosphatase 48 U/L (38-126) 01/03/18 07:00 Troponin I < 0.01 ng/mL D 01/01/18 08:33 Total Protein 5.6 g/dL (5.8-8.3) L 01/03/18 07:00 Albumin 2.9 g/dL (3.0-4.8) L 01/03/18 07:00 Globulin 2.7 gm/dL 01/03/18 07:00 Albumin/Globulin Ratio 1.1 (1.1-1.8) 01/03/18 07:00 Procalcitonin < 0.05 NG/ML (0.19-0.49) L 12/31/17 05:15 Beta HCG, Quant < 2.39 mIU/mL (0-6.15) 12/31/17 00:39 Arterial Blood Potassium 2.6 mmol/L (3.6-5.2) L 12/31/17 07:00 Urine Color Yellow (YELLOW) 12/31/17 00:39 Urine Appearance Clear (CLEAR) 12/31/17 00:39 Urine pH 5.5 (4.7-8.0) 12/31/17 00:39 Ur Specific [place] >= 1.030 (1.005-1.035) 12/31/17 00:39 Urine Protein 30 mg/dL (<30 mg/dL) H 12/31/17 00:39 Urine Glucose (UA) Negative mg/dL (NEGATIVE) 12/31/17 00:39 Urine Ketones Negative mg/dL (NEGATIVE) 12/31/17 00:39 Urine Blood Negative (NEGATIVE) 12/31/17 00:39 Urine Nitrate Negative (NEGATIVE) 12/31/17 00:39 Urine Bilirubin Small (NEGATIVE) H 12/31/17 00:39 Urine Urobilinogen 1.0 E.U./dL (<1 E.U./dL) H 18 00:39 Ur Leukocyte Esterase Negative Erik/uL (NEGATIVE) 12/31/17 00:39 Urine RBC 1 - 3 /hpf (0-2) 12/31/17 00:39 Urine WBC 5 - 10 /hpf (0-6) 12/31/17 00:39 Ur Epithelial Cells 10 - 12 /hpf (0-5) 12/31/17 00:39 Salicylates < 1 mg/dL (2.0-20.0) L 12/31/17 00:39 Urine Opiates Screen Positive (NEGATIVE) H 12/31/17 00:39 Urine Methadone Screen Negative (NEGATIVE) 12/31/17 00:39 Acetaminophen < 10.0 ug/ml (10.0-20.0) L 12/31/17 00:39 Ur Barbiturates Screen Negative (NEGATIVE) 12/31/17 00:39 Ur Phencyclidine Scrn Negative (NEGATIVE) 12/31/17 00:39 Ur Amphetamines Screen Negative (NEGATIVE) 12/31/17 00:39 U Benzodiazepines Scrn Negative (NEGATIVE) 12/31/17 00:39 U Oth Cocaine Metabols Negative (NEGATIVE) 12/31/17 00:39 U Cannabinoids Screen Negative (NEGATIVE) 12/31/17 00:39 Alcohol, Quantitative 29 mg/dL (0-10) H 12/31/17 00:39 - Hospital Course Hospital Course: 47 year old female with a past medical history significant for COPD, asthma, alcohol/heroin abuse who was found in unresponsive and in respiratory distress on a park bench after drinking alcohol and sniffing heroin. Admitted to ICU, on narcan drip ggt, bronchodilators, getting stabilized. Transfered to med/surg floor CT head did not show any acute finding. UDS positive for opiates. Alcohol level of 29 on admission. Patient was given folic acid, thiamine, MVI and ativan for alcohol withdrawal symptoms. CXR wa negative for acute findings. Patient was given bronchodilators, steroids, oxygen, steroids to manage her COPD exacerbation. Today patient was in no respiratory distress, her breathing significantly improved and clinically stabilized for home discharge. Patient was advised to discuss sleep study with her PMD to improve her sleep apnea. Patient was counseled many times for alcohol, drugs, smoking cessation to improve her quality of life and reduce risk of heart disease and stroke. Discharge Exam - Head Exam Head Exam: ATRAUMATIC, NORMAL INSPECTION, NORMOCEPHALIC - Eye Exam Eye Exam: EOMI, Normal appearance, PERRL Pupil Exam: NORMAL ACCOMODATION, PERRL - ENT Exam ENT Exam: Mucous Membranes Moist, Normal Oropharynx - Neck Exam Neck exam: Normal Inspection - Respiratory Exam Respiratory Exam: Clear to PA & Lateral, NORMAL BREATHING PATTERN - Cardiovascular Exam Cardiovascular Exam: REGULAR RHYTHM, +S1, +S2 - GI/Abdominal Exam GI & Abdominal Exam: Normal Bowel Sounds, Soft - Extremities Exam Extremities exam: normal capillary refill, pedal pulses present - Neurological Exam Neurological exam: Alert, CN II-XII Intact, Normal Gait, Oriented x3, Reflexes Normal - Psychiatric Exam Psychiatric exam: Normal Affect, Normal Mood - Skin Skin Exam: Dry, Intact, Normal Color, Warm Discharge Plan - Discharge Medications Prescriptions: Albuterol Sulfate [Ventolin Hfa] 2 puff IH Q4 PRN #1 unit PRN Reason: wheeze Folic Acid 1 mg PO DAILY #30 tab Multimineral/Multivitamin [Therapeutic-M Tab] 1 tab PO 0800 #30 tab predniSONE [Prednisone] 40 mg PO DAILY #2 tab Thiamine [Vitamin B1 Tab] 100 mg PO DAILY #30 tab - Follow Up Plan Condition: SERIOUS Disposition: HOME/ ROUTINE Instructions: Chronic Obstructive Pulmonary Disease (COPD), Including Emphysema , Heart Failure, Adult, COPD Including Emphysema (DC), Drug Abuse and Drug Addiction (DC), Prescription Drug Abuse (DC), Quitting Smoking, Alcohol Abuse and Alcoholism (DC), Medicines for Chronic Obstructive Pulmonary Disease (COPD) Additional Instructions: please follow up with your PMD with one week of discharge please take your meds as prescribed please abstain from heroin and alcohol and other illicit drug use if your symptoms persist or worsen please return to nearest emergency room <Soo Cardona - Last Filed: 01/04/18 17:08> Provider - Provider Date of Admission: 12/31/17 01:53 Attending physician: Soo Cardona MD Hospital Course - Lab Results Lab Results: Micro Results 12/31/17 05:50 Nose MRSA Culture (Admit) - Final MRSA NOT DETECTED Most Recent Lab Values WBC 10.5 10^3/ul (4.5-11.0) 01/03/18 07:00 RBC 4.06 10^6/uL (3.5-6.1) 01/03/18 07:00 Hgb 12.8 g/dL (12.0-16.0) 01/03/18 07:00 Hct 40.1 % (36.0-48.0) 01/03/18 07:00 MCV 98.8 fl (80.0-105.0) 01/03/18 07:00 MCH 31.5 pg (25.0-35.0) 01/03/18 07:00 MCHC 31.9 g/dl (31.0-37.0) 01/03/18 07:00 RDW 14.7 % (11.5-14.5) H 01/03/18 07:00 Plt Count 304 10^3/uL (120.0-450.0) 01/03/18 07:00 MPV 10.1 fl (7.0-11.0) 01/03/18 07:00 Gran % 59.3 % (50.0-68.0) 01/03/18 07:00 Lymph % (Auto) 30.0 % (22.0-35.0) 01/03/18 07:00 [place] % (Auto) 10.0 % (1.0-6.0) H 01/03/18 07:00 Eos % (Auto) 0.6 % (1.5-5.0) L 01/03/18 07:00 Baso % (Auto) 0.1 % (0.0-3.0) 01/03/18 07:00 Gran # 6.20 (1.4-6.5) 01/03/18 07:00 Lymph # (Auto) 3.1 (1.2-3.4) 01/03/18 07:00 [place] # (Auto) 1.0 (0.1-0.6) H 01/03/18 07:00 Eos # (Auto) 0.1 (0.0-0.7) 01/03/18 07:00 Baso # (Auto) 0.01 K/mm3 (0.0-2.0) 01/03/18 07:00 APTT 25.4 Seconds (25.1-36.5) 01/01/18 05:30 pCO2 45 mm/Hg (35-45) 12/31/17 15:53 pO2 96.0 mm/Hg (80-100) 12/31/17 15:53 HCO3 27.2 mmol/L (21-28) 12/31/17 15:53 ABG pH 7.39 (7.35-7.45) 12/31/17 15:53 ABG Total CO2 28.6 mmol.L (22-28) H 12/31/17 15:53 ABG O2 Saturation 99.2 % (95-98) H 12/31/17 15:53 ABG O2 Content 17.1 ML/dl (15-23) 12/31/17 15:53 ABG Base Excess 1.8 mmol/L (-2.0-3.0) 12/31/17 15:53 ABG Hemoglobin 12.6 g/dL (11.7-17.4) 12/31/17 15:53 ABG Carboxyhemoglobin 2.1 % (0.5-1.5) H 12/31/17 15:53 POC ABG HHb (Measured) 0.8 % (0-5) 12/31/17 15:53 ABG Methemoglobin 1.0 % (0.0-3.0) 12/31/17 15:53 ABG O2 Capacity 17.2 mL/dl (16-24) 12/31/17 15:53 ABG Potassium 2.6 mmol/L (3.6-5.2) L 12/31/17 07:00 Hgb O2 Saturation 96.1 % (95.0-98.0) 12/31/17 15:53 Sodium 143.0 mmol/L (132-148) 12/31/17 07:00 Chloride 114.0 mmol/L (98-107) H 12/31/17 07:00 Glucose 91 mg/dl (65-105) 12/31/17 07:00 Lactate 1.0 mmol/L (0.7-2.1) 12/31/17 07:00 FiO2 32.0 % 12/31/17 15:53 Sodium 137 mmol/L (132-148) 01/03/18 07:00 Potassium 4.3 mmol/L (3.6-5.0) 01/03/18 07:00 Chloride 106 mmol/L (98-107) 01/03/18 07:00 Carbon Dioxide 27 mmol/L (21-33) 01/03/18 07:00 Anion Gap 8 (10-20) L 01/03/18 07:00 BUN 13 mg/dL (7-21) 01/03/18 07:00 Creatinine 0.6 mg/dl (0.7-1.2) L 01/03/18 07:00 Est GFR ( Amer) > 60 01/03/18 07:00 Est GFR (Non-Af Amer) > 60 01/03/18 07:00 Random Glucose 84 mg/dL (70-110) 01/03/18 07:00 Calcium 7.8 mg/dL (8.4-10.5) L 01/03/18 07:00 Phosphorus 4.4 mg/dL (2.5-4.5) 01/03/18 07:00 Magnesium 2.0 mg/dL (1.7-2.2) 01/03/18 07:00 Total Bilirubin 0.3 mg/dL (0.2-1.3) 01/03/18 07:00 AST 32 U/L (14-36) 01/03/18 07:00 ALT 38 U/L (7-56) 01/03/18 07:00 Alkaline Phosphatase 48 U/L (38-126) 01/03/18 07:00 Troponin I < 0.01 ng/mL D 01/01/18 08:33 Total Protein 5.6 g/dL (5.8-8.3) L 01/03/18 07:00 Albumin 2.9 g/dL (3.0-4.8) L 01/03/18 07:00 Globulin 2.7 gm/dL 01/03/18 07:00 Albumin/Globulin Ratio 1.1 (1.1-1.8) 01/03/18 07:00 Procalcitonin < 0.05 NG/ML (0.19-0.49) L 12/31/17 05:15 Beta HCG, Quant < 2.39 mIU/mL (0-6.15) 12/31/17 00:39 Arterial Blood Potassium 2.6 mmol/L (3.6-5.2) L 12/31/17 07:00 Urine Color Yellow (YELLOW) 12/31/17 00:39 Urine Appearance Clear (CLEAR) 12/31/17 00:39 Urine pH 5.5 (4.7-8.0) 12/31/17 00:39 Ur Specific [place] >= 1.030 (1.005-1.035) 12/31/17 00:39 Urine Protein 30 mg/dL (<30 mg/dL) H 12/31/17 00:39 Urine Glucose (UA) Negative mg/dL (NEGATIVE) 12/31/17 00:39 Urine Ketones Negative mg/dL (NEGATIVE) 12/31/17 00:39 Urine Blood Negative (NEGATIVE) 12/31/17 00:39 Urine Nitrate Negative (NEGATIVE) 12/31/17 00:39 Urine Bilirubin Small (NEGATIVE) H 12/31/17 00:39 Urine Urobilinogen 1.0 E.U./dL (<1 E.U./dL) H 18 00:39 Ur Leukocyte Esterase Negative Erik/uL (NEGATIVE) 12/31/17 00:39 Urine RBC 1 - 3 /hpf (0-2) 12/31/17 00:39 Urine WBC 5 - 10 /hpf (0-6) 12/31/17 00:39 Ur Epithelial Cells 10 - 12 /hpf (0-5) 12/31/17 00:39 Salicylates < 1 mg/dL (2.0-20.0) L 12/31/17 00:39 Urine Opiates Screen Positive (NEGATIVE) H 12/31/17 00:39 Urine Methadone Screen Negative (NEGATIVE) 12/31/17 00:39 Acetaminophen < 10.0 ug/ml (10.0-20.0) L 12/31/17 00:39 Ur Barbiturates Screen Negative (NEGATIVE) 12/31/17 00:39 Ur Phencyclidine Scrn Negative (NEGATIVE) 12/31/17 00:39 Ur Amphetamines Screen Negative (NEGATIVE) 12/31/17 00:39 U Benzodiazepines Scrn Negative (NEGATIVE) 12/31/17 00:39 U Oth Cocaine Metabols Negative (NEGATIVE) 12/31/17 00:39 U Cannabinoids Screen Negative (NEGATIVE) 12/31/17 00:39 Alcohol, Quantitative 29 mg/dL (0-10) H 12/31/17 00:39 Attending/Attestation - Attestation I have personally seen and examined this patient.: Yes I have fully participated in the care of the patient.: Yes I have reviewed all pertinent clinical information, including history, physical exam and plan: Yes Notes (Text): 01/04/18 17:01 Medical record note made by the resident after discussion with my direction and input after the patient was personally seen and examined by me. I have reviewed the chart and agree that the record accurately reflects by personal performance of the history, physical exam, data review, and medical decision-making, in the course for the patient. I have also personally directed the plan of care. 47 year old homeless female with history of tobacco use, COPD, alcohol and heroin abuse, hepatitis C and noncompliance with medication was admitted with alcohol withdrawal and COPD exacerbation. Patient alcohol withdrawals are improved.Her CIWA score is 1 today.There is no sign of alcohol withdrawal. Patient has responded well to Neb/Steroid and antibiotic.cough and dyspnea has improved.There is no sign of alcohol withdrawal. She will be discharged and will follow up with [facility]. Drug abuse cessation, alcohol cessation is strongly advised. Prognosis is guarded due to non compliance and ongoing alcohol and drug abuse
--- NOTE | 2018-01-03 19:44 | US ---
HISTORY: Leg pain and swelling. Evaluate for DVT PHYSICIAN(S): Jitendra Garcia MD. TECHNIQUE: Duplex sonography and color-flow Doppler with graded compression were used to evaluate the deep venous systems of both lower extremities. FINDINGS: The visualized deep venous systems of both lower extremities are sonographically normal and compressible. Normal wave forms and augmentation are seen. There is no sonographic evidence for deep venous thrombosis in the visualized segments of both lower extremities. IMPRESSION: No sonographic evidence for deep venous thrombosis in the visualized segments of both lower extremities.
== END 2018-01-03 19:19 | disposition home or self-care (01) | DRG 88 ==
LOC: ED 22:13 → ERH 12-31 01:53 → ICU 12-31 03:54 → 2RNO 01-02 00:53 → 5RSO 01-02 15:40
PROVIDERS: ADMIT Hospitalist; ATTEND Internal Medicine
DX: J44.1 Chronic obstructive pulmonary disease with (acute) exacerbation (principal); F10.239 Alcohol dependence with withdrawal, unspecified; F11.23 Opioid dependence with withdrawal; E87.2 Acidosis; I13.0 Hypertensive heart and chronic kidney disease with heart failure and stage 1 through stage 4 chronic kidney disease, or unspecified chronic kidney disease; I50.9 Heart failure, unspecified; N18.9 Chronic kidney disease, unspecified; K74.60 Unspecified cirrhosis of liver; B19.20 Unspecified viral hepatitis C without hepatic coma; R56.9 Unspecified convulsions; T40.1X1A Poisoning by heroin, accidental (unintentional), initial encounter; G47.30 Sleep apnea, unspecified; F17.200 Nicotine dependence, unspecified, uncomplicated; F41.9 Anxiety disorder, unspecified; Y90.1 Blood alcohol level of 20-39 mg/100 ml; Z83.3 Family history of diabetes mellitus; Z90.49 Acquired absence of other specified parts of digestive tract; Z59.0 Homelessness

== ENCOUNTER 2018-02-06 21:22 | Emergency (ER) | payer MEDICAID ==
[2018-02-06 21:22] VITALS: BMI 30.9
[2018-02-06 21:34] VITALS: BP 111/67
[2018-02-06 21:40] VITALS: TEMP 98.4
--- NOTE | 2018-02-06 21:45 | ED PDOC ---
Arrival/HPI - General Chief Complaint: Respiratory Distress Time Seen by Provider: 02/06/18 21:33 Historian: Patient - History of Present Illness Narrative History of Present Illness (Text): 02/06/18 21:42 47 year old female, whose past medical history includes COPD, asthma, known untreated hepatitis C with cirrhosis, alcohol abuse, and IV drug abuse, presents to the emergency department with wheezing, for 1 day. Patient states she has been having trouble breathing all day. Patient informs she has been wheezing more throughout the day. Patient also informs of having similar symptoms in the past. Patient denies any fevers, chills, headache, dizziness, abdominal pain, nausea, vomiting, diarrhea, back pain, neck pain, urinary/bowel changes, or any other complaint. Time/Duration: 24 hours Symptom Onset: Gradual Symptom Course: Unchanged Past Medical History - Provider Review Nursing Documentation Reviewed: Yes - Infectious Disease Hx of Infectious Diseases: None - Tetanus Immunization Tetanus Immunization: Unknown - Cardiac Hx Cardiac Disorders: Yes Hx Congestive Heart Failure: Yes Hx Hypertension: Yes - Pulmonary Hx Respiratory Disorders: Yes Hx Asthma: Yes Hx Chronic Obstructive Pulmonary Disease (COPD): Yes - Neurological Hx Neurological Disorder: No - HEENT Hx HEENT Disorder: No - Renal Hx Renal Disorder: Yes - Endocrine/Metabolic Hx Endocrine Disorders: No - Hematological/Oncological Hx Blood Disorders: Yes Hx Hepatitis C: Yes - Integumentary Hx Dermatological Disorder: No - Musculoskeletal/Rheumatological Hx Musculoskeletal Disorders: No Hx Falls: No - Gastrointestinal Hx Gastrointestinal Disorders: Yes Hx Pancreatitis: Yes - Genitourinary/Gynecological Hx Genitourinary Disorders: Yes Hx Sexually Transmitted Diseases: Yes - Psychiatric Hx Psychophysiologic Disorder: Yes Hx Anxiety: Yes Hx Depression: Yes Hx Substance Use: Yes - Surgical History Hx Appendectomy: Yes Hx Tonsillectomy: Yes Other/Comment: tonsillectomy - Anesthesia Hx Anesthesia: Yes Hx Anesthesia Reactions: No Hx Malignant Hyperthermia: No - Suicidal Assessment Feels Threatened In Home Enviroment: No Family/Social History - Physician Review Nursing Documentation Reviewed: Yes Family/Social History: No Known Family HX Smoking Status: Current Some Days Smoker Hx Alcohol Use: Yes Hx Substance Use: Yes Substance used: heroin Hx Substance Use Treatment: Yes Allergies/Home Meds Allergies/Adverse Reactions: Allergies No Known Allergies Allergy (Verified 02/06/18 21:43) Review of Systems - Physician Review All systems were reviewed & negative as marked: Yes - Review of Systems Constitutional: absent: Fevers, Night Sweats Respiratory: SOB, Wheezing Gastrointestinal: absent: Abdominal Pain, Diarrhea, Nausea, Vomiting Genitourinary Female: absent: Urine Output Changes Musculoskeletal: absent: Back Pain, Neck Pain Neurological: absent: Headache, Dizziness Physical Exam Vital Signs Reviewed: Yes Vital Signs Temp Pulse Resp BP Pulse Ox 02/06/18 21:39 98.4 F 02/06/18 21:32 100 H 21 111/67 92 L Blood Pressure: Normal Pulse: Tachycardic Respiratory Rate: Normal Appearance: Positive for: Well-Appearing, Non-Toxic, Comfortable Pain Distress: None Mental Status: Positive for: Alert and Oriented X 3 - Systems Exam Head: Present: Atraumatic, Normocephalic Pupils: Present: PERRL Extroacular Muscles: Present: EOMI Conjunctiva: Present: Normal Mouth: Present: Moist Mucous Membranes Neck: Present: Normal Range of Motion Respiratory/Chest: Present: Wheezes Cardiovascular: Present: Regular Rate and Rhythm, Normal S1, S2. No: Murmurs Abdomen: No: Tenderness, Distention, Peritoneal Signs Back: Present: Normal Inspection Upper Extremity: Present: Normal Inspection. No: Cyanosis, Edema Lower Extremity: Present: Normal Inspection. No: Edema Neurological: Present: GCS=15, CN II-XII Intact, Speech Normal Skin: Present: Warm, Dry, Normal Color. No: Rashes Psychiatric: Present: Alert, Oriented x 3, Normal Insight, Normal Concentration Medical Decision Making ED Course and Treatment: 02/06/18 21:57 Impression: 47 year old female presents with wheezing. Plan: -- Decadron -- Duoneb -- Reassess and disposition Prior Visits: Notes and results from previous visits were reviewed. Progress Notes: - Scribe Statement The provider has reviewed the documentation as recorded by the Rosettaibclive Figueroa Provider Scribe Attestation: All medical record entries made by the Scribclive were at my direction and personally dictated by me. I have reviewed the chart and agree that the record accurately reflects my personal performance of the history, physical exam, medical decision making, and the department course for this patient. I have also personally directed, reviewed, and agree with the discharge instructions and disposition. Disposition/Present on Arrival - Present on Arrival Any Indicators Present on Arrival: No History of DVT/PE: No History of Uncontrolled Diabetes: No Urinary Catheter: No History of Decub. Ulcer: No History Surgical Site Infection Following: None - Disposition Have Diagnosis and Disposition been Completed?: Yes Diagnosis: Asthma attack Disposition: HOME/ ROUTINE Disposition Time: 06:00 Condition: IMPROVED Discharge Instructions (ExitCare): Asthma in Adults Prescriptions: predniSONE [Prednisone] 40 mg PO DAILY #2 tab Forms: [employer] (Frisian)
[2018-02-06] MEDS: Albuterol-Ipratrop 3 mg / 0.5 (3 ml) UD IH SCH ×2 (22:00→22:18)
[2018-02-07 10:48] VITALS: PULSE 90; RESP 18; O2SAT 96
== END 2018-02-07 06:30 | disposition home or self-care (01) ==
LOC: ED 21:22
DX: J45.909 Unspecified asthma, uncomplicated (principal); I50.9 Heart failure, unspecified; I10 Essential (primary) hypertension
CPT/HCPCS: 96372; 99283; J1100

== ENCOUNTER 2018-03-08 19:25 | Emergency (ER) | payer MEDICAID ==
[2018-03-08 19:26] VITALS: BMI 30.9
[2018-03-08 19:34] VITALS: TEMP 98.2
[2018-03-08] MEDS ORDERED: Albuterol-Ipratrop 3 mg / 0.5 (3 ml) UD IH STA (19:43)
--- NOTE | 2018-03-08 19:51 | ED PDOC ---
Arrival/HPI - General Chief Complaint: Shortness Of Breath Time Seen by Provider: 03/08/18 19:32 Historian: Patient - History of Present Illness Narrative History of Present Illness (Text): 03/08/18 19:48 47 year old female, whose past medical history includes COPD, asthma, alcohol/heroin abuse, and hepatitis C with liver cirrhosis, presents to the emergency department complaining of shortness of breath associated with cough w ith phlegm for the past couple of days. Patient states she ran out of her medication and does not have a PMD. She also is complaining of itchiness to her skin, but denies any fever, chills, chest pain, abdominal pain, nausea, vomiting, diarrhea, back pain, neck pain, headache, dizziness, or any other complaints. PMD: None Time/Duration: Other (couple days) Symptom Onset: Gradual Symptom Course: Unchanged Activities at Onset: Light Past Medical History - Provider Review Nursing Documentation Reviewed: Yes - Infectious Disease Hx of Infectious Diseases: None - Tetanus Immunization Tetanus Immunization: Unknown - Cardiac Hx Cardiac Disorders: Yes Hx Congestive Heart Failure: Yes Hx Hypertension: Yes - Pulmonary Hx Respiratory Disorders: Yes Hx Asthma: Yes Hx Chronic Obstructive Pulmonary Disease (COPD): Yes - Neurological Hx Neurological Disorder: No - HEENT Hx HEENT Disorder: No - Renal Hx Renal Disorder: Yes - Endocrine/Metabolic Hx Endocrine Disorders: No - Hematological/Oncological Hx Blood Disorders: Yes Hx Hepatitis C: Yes - Integumentary Hx Dermatological Disorder: No - Musculoskeletal/Rheumatological Hx Musculoskeletal Disorders: No Hx Falls: No - Gastrointestinal Hx Gastrointestinal Disorders: Yes Hx Pancreatitis: Yes - Genitourinary/Gynecological Hx Genitourinary Disorders: Yes Hx Sexually Transmitted Diseases: Yes - Psychiatric Hx Psychophysiologic Disorder: Yes Hx Anxiety: Yes Hx Depression: Yes Hx Substance Use: Yes - Surgical History Hx Appendectomy: Yes Hx Tonsillectomy: Yes Other/Comment: tonsillectomy - Anesthesia Hx Anesthesia: Yes Hx Anesthesia Reactions: No Hx Malignant Hyperthermia: No - Suicidal Assessment Feels Threatened In Home Enviroment: No Family/Social History - Physician Review Nursing Documentation Reviewed: Yes Family/Social History: No Known Family HX Smoking Status: Current Some Days Smoker Hx Alcohol Use: Yes Frequency of alcohol use: Daily Hx Substance Use: Yes Substance used: heroin Hx Substance Use Treatment: Yes Allergies/Home Meds Allergies/Adverse Reactions: Allergies No Known Allergies Allergy (Verified 03/08/18 19:27) Home Medications: Home Meds Medication Instructions Recorded Confirmed RX: No Known Home Med 03/08/18 03/08/18 Review of Systems - Physician Review All systems were reviewed & negative as marked: Yes - Review of Systems Constitutional: absent: Fevers, Other (Chills) Respiratory: SOB, Cough Cardiovascular: absent: Chest Pain Gastrointestinal: absent: Abdominal Pain, Diarrhea, Nausea, Vomiting Musculoskeletal: absent: Back Pain, Neck Pain Skin: Pruritis Neurological: absent: Headache, Dizziness Physical Exam Vital Signs Reviewed: Yes Vital Signs Temp Pulse Resp Pulse Ox 03/08/18 19:28 98.2 F 107 H 25 H 98 Temperature: Afebrile Pulse: Tachycardic Respiratory Rate: Normal Appearance: Positive for: Well-Appearing, Non-Toxic, Comfortable Pain Distress: None Mental Status: Positive for: Alert and Oriented X 3 - Systems Exam Head: Present: Atraumatic, Normocephalic Pupils: Present: PERRL Extroacular Muscles: Present: EOMI Conjunctiva: Present: Normal Mouth: Present: Moist Mucous Membranes Neck: Present: Normal Range of Motion Respiratory/Chest: Present: Wheezes (inspiratory and expiratory wheezing ), Decreased Breath Sounds. No: Respiratory Distress, Accessory Muscle Use Cardiovascular: Present: Regular Rate and Rhythm, Normal S1, S2. No: Murmurs Abdomen: Present: Hernias (umbilical hernia). No: Tenderness, Distention, Peritoneal Signs Back: Present: Normal Inspection Upper Extremity: Present: Normal Inspection. No: Cyanosis, Edema Lower Extremity: Present: Edema (+1 pitting edema lower extremity bilaterally ) Neurological: Present: GCS=15, CN II-XII Intact, Speech Normal Skin: Present: Warm, Dry, Normal Color, Other (chest and back excoriation of skin) Psychiatric: Present: Alert, Oriented x 3, Normal Insight, Normal Concentration Medical Decision Making ED Course and Treatment: 03/08/18 19:48 Impression: 47 year old female presents complaining of shortness of breath associated with cough with phlegm for the past few days. Patient also complaining of itchiness to skin. Plan: -- Duoneb, prednisone tab -- Reassess and disposition Prior Visits: Notes and results from previous visits were reviewed. Progress Notes: Patient reported improvement after nebulizer treatment and steroids. Stable for discharge home. - Medication Orders Current Medication Orders: Albuterol/Ipratropium (Duoneb 3 Mg/0.5 Mg (3 Ml) Ud) 3 ml IH STAT STA Stop: 03/08/18 19:44 Prednisone (Prednisone Tab) 40 mg PO STAT STA Stop: 03/08/18 19:44 - Scribe Statement The provider has reviewed the documentation as recorded by the Jc Reddy Provider Scribe Attestation: All medical record entries made by the Scribe were at my direction and person ally dictated by me. I have reviewed the chart and agree that the record accurately reflects my personal performance of the history, physical exam, medical decision making, and the department course for this patient. I have also personally directed, reviewed, and agree with the discharge instructions and disposition. Disposition/Present on Arrival - Present on Arrival Any Indicators Present on Arrival: No History of DVT/PE: No History of Uncontrolled Diabetes: No Urinary Catheter: No History of Decub. Ulcer: No History Surgical Site Infection Following: None - Disposition Have Diagnosis and Disposition been Completed?: Yes Diagnosis: COPD exacerbation Disposition: HOME/ ROUTINE Disposition Time: 02:00 Patient Problems: Current Active Problems Problem Status Onset COPD exacerbation Acute Condition: STABLE Discharge Instructions (ExitCare): Exacerbation of COPD Additional Instructions: NAYAN WARD, thank you for letting us take care of you today. Your provider was Alesha Morgan MD and you were treated for COPD. The emergency medical care you received today was directed at your acute symptoms. If you were prescribed any medication, please fill it and take as directed. It may take several days for your symptoms to resolve. Return to the Emergency Department if your symptoms worsen, do not improve, or if you have any other problems. Please contact your doctor or call one of the physicians/clinics you have been referred to that are listed on the Patient Visit Information form that is included in your discharge packet. Bring any paperwork you were given at discharge with you along with any medications you are taking to your follow up visit. Our treatment cannot replace ongoing medical care by a primary care provider outside of the emergency department. Thank you for allowing the [facility] team to be part of your care today. If you had an X-Ray or CT scan: A Radiologist will review the ED reading if any change in treatment is needed we will contact you. If you had a blood, urine, or wound culture: It will take several days for the results, if any change in treatment is needed we will contact you. If you had an STI test: It will take 48 hours for the results. Please call after 1 week if you have not heard back. Referrals: PCP,NO [Primary Care Provider] - Follow up with primary Forms: [employer] (D[place])
[2018-03-09 05:34] VITALS: RESP 18
[2018-03-09 06:58] VITALS: BP 128/74; PULSE 74; O2SAT 97
== END 2018-03-09 06:55 | disposition home or self-care (01) ==
LOC: ED 19:25
DX: J44.1 Chronic obstructive pulmonary disease with (acute) exacerbation (principal); F17.210 Nicotine dependence, cigarettes, uncomplicated

== ENCOUNTER 2018-03-21 14:58 | Emergency (ER) | payer MEDICAID ==
[2018-03-21 14:58] VITALS: BMI 30.9
--- NOTE | 2018-03-21 15:22 | ED PDOC ---
Arrival/HPI - General Chief Complaint: Substance Abuse Time Seen by Provider: 03/21/18 15:07 Historian: Patient - History of Present Illness Narrative History of Present Illness (Text): 03/21/18 15:20 A 47 year old female, whose past medical history includes COPD, asthma, alcohol/heroin abuse, and hepatitis C with liver cirrhosis, brought by ambulance into the emergency department for overdose. Patient was administered Narcan in the field and awoke immediately. Patient awake and alert in the ER at this time. Patient reports overdosing on heroin, and states she was "trying to have some fun." Patient denies any falls/injuries. Patient denies any other complaints at this time. No meningeal signs present. No PMD Past Medical History - Provider Review Nursing Documentation Reviewed: Yes - Infectious Disease Hx of Infectious Diseases: None - Tetanus Immunization Tetanus Immunization: Unknown - Cardiac Hx Cardiac Disorders: Yes Hx Congestive Heart Failure: Yes Hx Hypertension: Yes - Pulmonary Hx Respiratory Disorders: Yes Hx Asthma: Yes Hx Chronic Obstructive Pulmonary Disease (COPD): Yes - Neurological Hx Neurological Disorder: No - HEENT Hx HEENT Disorder: No - Renal Hx Renal Disorder: Yes - Endocrine/Metabolic Hx Endocrine Disorders: No - Hematological/Oncological Hx Blood Disorders: Yes Hx Hepatitis C: Yes - Integumentary Hx Dermatological Disorder: No - Musculoskeletal/Rheumatological Hx Musculoskeletal Disorders: No Hx Falls: No - Gastrointestinal Hx Gastrointestinal Disorders: Yes Hx Pancreatitis: Yes - Genitourinary/Gynecological Hx Genitourinary Disorders: Yes Hx Sexually Transmitted Diseases: Yes - Psychiatric Hx Psychophysiologic Disorder: Yes Hx Anxiety: Yes Hx Depression: Yes Hx Substance Use: Yes - Surgical History Hx Appendectomy: Yes Hx Tonsillectomy: Yes Other/Comment: tonsillectomy - Anesthesia Hx Anesthesia: Yes Hx Anesthesia Reactions: No Hx Malignant Hyperthermia: No - Suicidal Assessment Feels Threatened In Home Enviroment: No Family/Social History - Physician Review Nursing Documentation Reviewed: Yes Family/Social History: No Known Family HX Smoking Status: Current Some Days Smoker Hx Alcohol Use: Yes Hx Substance Use: Yes Substance used: heroin Hx Substance Use Treatment: Yes Allergies/Home Meds Allergies/Adverse Reactions: Allergies No Known Allergies Allergy (Verified 03/08/18 19:27) Review of Systems - Physician Review All systems were reviewed & negative as marked: Yes - Review of Systems Constitutional: absent: Fatigue, Fevers, Night Sweats Eyes: absent: Vision Changes, Photophobia ENT: absent: Hearing Changes Respiratory: absent: SOB, Cough, Sputum, Wheezing Cardiovascular: absent: Chest Pain, Palpitations, Syncope Gastrointestinal: absent: Abdominal Pain, Diarrhea, Nausea, Vomiting, Anorexia, Food Intolerance Genitourinary Female: absent: Dysuria, Frequency, Hematuria Neurological: absent: Headache, Dizziness Physical Exam Vital Signs Reviewed: Yes Vital Signs Temp Pulse Resp BP Pulse Ox 03/21/18 15:11 98.1 F 89 16 130/91 H 97 Temperature: Afebrile Blood Pressure: Normal Pulse: Regular Respiratory Rate: Normal Appearance: Positive for: Well-Appearing, Non-Toxic, Comfortable Pain Distress: None Mental Status: Positive for: Alert and Oriented X 3 - Systems Exam Head: Present: Atraumatic, Normocephalic Pupils: Present: PERRL Extroacular Muscles: Present: EOMI Conjunctiva: Present: Normal Mouth: Present: Moist Mucous Membranes Neck: Present: Normal Range of Motion Respiratory/Chest: Present: Clear to Auscultation, Good Air Exchange. No: Respiratory Distress, Accessory Muscle Use Cardiovascular: Present: Regular Rate and Rhythm, Normal S1, S2. No: Murmurs Abdomen: No: Tenderness, Distention, Peritoneal Signs Back: Present: Normal Inspection Upper Extremity: Present: Normal Inspection. No: Cyanosis, Edema Lower Extremity: Present: Normal Inspection. No: Edema Neurological: Present: GCS=15, CN II-XII Intact, Speech Normal Skin: Present: Warm, Dry, Normal Color. No: Rashes Psychiatric: Present: Alert, Oriented x 3, Normal Insight, Normal Concentration Medical Decision Making ED Course and Treatment: 03/21/18 15:22 Impression: 47 year old female brought in by ambulance for overdose of heroin. Well appearing in NAD after 4mg of narcan in the field. Vitals largely unremarkable upon eval. No SI or HI or depression currently was doing heroin for enjoyment and not intentionally to hurt herself. No SOB or CP. No abdominal pain. No fever, chills or night sweats. Endorsed to pt to d/c heroin use.. Plan: -- Reassess and disposition Prior Visits: Notes and results from previous visits were reviewed. Patient was last seen in the emergency department on 03/08/2018 for shortness of breath associated with cough with phlegm. Patient was discharged home with diagnosis of COPD exacerbation. Progress Notes: 03/21/18 16:25 On re-eval. Pt is Ambulatory without assistance, O2 sat >92% on RA, RR >10bpm, HR >50, Normal temp, and GCS 15 Normal neuro exam No indication of etoh intox No SI or HI. Re-endorsed and stressed to pt to stop heroin use and given f/u w/ PMD and yuly for possible detox. Pt is agreeable - Scribe Statement The provider has reviewed the documentation as recorded by the Jc Hood Provider Scribe Attestation: All medical record entries made by the Jc were at my direction and personally dictated by me. I have reviewed the chart and agree that the record accurately reflects my personal performance of the history, physical exam, medical decision making, and the department course for this patient. I have also personally directed, reviewed, and agree with the discharge instructions and disposition. Disposition/Present on Arrival - Present on Arrival Any Indicators Present on Arrival: No History of DVT/PE: No History of Uncontrolled Diabetes: No Urinary Catheter: No History of Decub. Ulcer: No History Surgical Site Infection Following: None - Disposition Have Diagnosis and Disposition been Completed?: Yes Diagnosis: Opiate overdose Disposition: HOME/ ROUTINE Disposition Time: 16:38 Condition: GOOD Discharge Instructions (ExitCare): Narcotic Overdose Additional Instructions: NAYAN WARD, thank you for letting us take care of you today. The emergency medical care you received today was directed at your acute symptoms. If you were prescribed any medication, please fill it and take as directed. It may take several days for your symptoms to resolve. Return to the Emergency Department if your symptoms worsen, do not improve, or if you have any other problems. Please contact your doctor or call one of the physicians/clinics you have been referred to that are listed on the Patient Visit Information form that is included in your discharge packet. Bring any paperwork you were given at discharge with you along with any medications you are taking to your follow up visit. Our treatment cannot replace ongoing medical care by a primary care provider outside of the emergency department. Thank you for allowing the [facility] team to be part of your care today. If you had an X-Ray or CT scan: A Radiologist will review the ED reading if any change in treatment is needed we will contact you. If you had a blood, urine, or wound culture: It will take several days for the results, if any change in treatment is needed we will contact you. If you had an STI test: It will take 48 hours for the results. Please call after 1 week if you have not heard back. Referrals: [facility] [Outside] - Follow up with primary [facility] [Outside] - Follow up with primary [facility] [Outside] - Follow up with primary [facility] [Outside] - Follow up with primary [facility] at [facility] [Outside] - Follow up with primary Forms: [employer] (Thai)
[2018-03-21 16:59] VITALS: BP 115/75; PULSE 83; RESP 18; TEMP 98.3; O2SAT 95
--- NOTE | 2018-03-21 19:15 | CARD ---
APPROVED REPORT Date of service: 03/21/2018 EKG Measurement Heart [id number] ID [id number] <Conclusion> Normal sinus rhythm Normal ECG
== END 2018-03-21 16:52 | disposition home or self-care (01) ==
LOC: ED 14:58
DX: T40.1X1A Poisoning by heroin, accidental (unintentional), initial encounter (principal); Y92.89 Other specified places as the place of occurrence of the external cause; I11.0 Hypertensive heart disease with heart failure; I50.9 Heart failure, unspecified; F17.210 Nicotine dependence, cigarettes, uncomplicated

== ENCOUNTER 2018-04-11 16:30 | Emergency (ER) | payer MEDICAID ==
[2018-04-11 16:33] VITALS: BMI 24.7
[2018-04-11] MEDS ORDERED: Albuterol-Ipratrop 3 mg / 0.5 (3 ml) UD IH STA (17:07)
[2018-04-11 17:20] LABS: BASO # 0.04 K/mm3 (0.0-2.0); BASO % 0.3 % (0.0-3.0); EOS # 0.3 (0.0-0.7); EOS % 2.2 % (1.5-5.0); GRAN # 8.41 (1.4-6.5); GRAN % 65.7 % (50.0-68.0); HEMOGLOBIN 15.2 g/dL (12.0-16.0); LYMPH % 23.2 % (22.0-35.0); MEAN CELL VOLUME 97.2 fl (80.0-105.0); MEAN CORPUSCULAR HEMOGLOBIN 32.5 pg (25.0-35.0); MEAN CORPUSCULAR HGB CONC 33.5 g/dl (31.0-37.0); MEAN PLATELET VOLUME 10.3 fl (7.0-11.0); MONO # 1.1 (0.1-0.6); MONO % 8.6 % (1.0-6.0); RBC 4.67 10^6/uL (3.5-6.1); RED CELL DISTRIBUTION WIDTH 15.1 % (11.5-14.5); WHITE BLOOD COUNT 12.8 10^3/uL (4.5-11.0)
[2018-04-11 17:28] LABS: INR 0.91; PARTIAL THROMBOPLASTIN TIME 25.7 Seconds (25.1-36.5); PROTHROMBIN TIME 10.4 SECONDS (9.4-12.5)
[2018-04-11 17:37] LABS: ALB/GLOB RATIO 1.2 (1.1-1.8); ALBUMIN 3.8 g/dL (3.0-4.8); ALT/SGPT 71 U/L (7-56); AST/SGOT 85 U/L (14-36); BLOOD UREA NITROGEN 10 mg/dL (7-21); CALCIUM 8.1 mg/dL (8.4-10.5); GFR NON-AFRICAN AMERICAN > 60
--- NOTE | 2018-04-11 17:37 | ED PDOC ---
Arrival/HPI - General Chief Complaint: Substance Abuse Time Seen by Provider: 04/11/18 16:31 Historian: Patient, EMS - History of Present Illness Narrative History of Present Illness (Text): 04/11/18 17:18 47yr old female presents today BIBA for overdose. pt states she was sitting down and used a bag of heroine and next thing she knew she was in the ambulance. Per EMS patient was given narcan in the field. pt denies chest pain or shortness of breath. pt denies fever/chills. no abdominal pain. no n/v/d/c. pt states she was feeling completely fine prior to using heroine. pt states after waking up in ambulance patient developed headache. pt unsure of trauma or injury. no other complaints. Time/Duration: Prior to Arrival Symptom Onset: Sudden Past Medical History - Provider Review Nursing Documentation Reviewed: Yes - Travel History Have you recently traveled outside [place] w/in the past 3 mons?: No - Infectious Disease Hx of Infectious Diseases: None - Tetanus Immunization Tetanus Immunization: Unknown - Cardiac Hx Cardiac Disorders: Yes Hx Congestive Heart Failure: Yes Hx Hypertension: Yes - Pulmonary Hx Respiratory Disorders: Yes Hx Asthma: Yes Hx Chronic Obstructive Pulmonary Disease (COPD): Yes - Neurological Hx Neurological Disorder: No - HEENT Hx HEENT Disorder: No - Renal Hx Renal Disorder: Yes - Endocrine/Metabolic Hx Endocrine Disorders: No - Hematological/Oncological Hx Blood Disorders: Yes Hx Hepatitis C: Yes - Integumentary Hx Dermatological Disorder: No - Musculoskeletal/Rheumatological Hx Musculoskeletal Disorders: No - Gastrointestinal Hx Gastrointestinal Disorders: Yes Hx Pancreatitis: Yes - Genitourinary/Gynecological Hx Genitourinary Disorders: Yes Hx Sexually Transmitted Diseases: Yes - Psychiatric Hx Psychophysiologic Disorder: Yes Hx Anxiety: Yes Hx Depression: Yes Hx Substance Use: Yes - Surgical History Hx Appendectomy: Yes Hx Tonsillectomy: Yes Other/Comment: tonsillectomy - Anesthesia Hx Anesthesia: Yes Hx Anesthesia Reactions: No Hx Malignant Hyperthermia: No - Suicidal Assessment Feels Threatened In Home Enviroment: No Family/Social History - Physician Review Nursing Documentation Reviewed: Yes Family/Social History: Unknown Family HX Smoking Status: Current Some Days Smoker Hx Alcohol Use: Yes Hx Substance Use: Yes Substance used: heroin Hx Substance Use Treatment: Yes Allergies/Home Meds Allergies/Adverse Reactions: Allergies No Known Allergies Allergy (Verified 04/11/18 16:34) Review of Systems - Review of Systems Constitutional: Fatigue. absent: Fevers Respiratory: absent: SOB, Cough Cardiovascular: absent: Chest Pain, Palpitations Gastrointestinal: absent: Abdominal Pain, Nausea, Vomiting Genitourinary Female: absent: Dysuria Musculoskeletal: absent: Arthralgias, Back Pain, Neck Pain Skin: absent: Rash, Pruritis Neurological: Headache. absent: Dizziness Psychiatric: absent: Anxiety, Depression Physical Exam Vital Signs Reviewed: Yes Vital Signs Pulse Resp BP Pulse Ox 04/11/18 17:01 99 H 12 124/85 98 Temperature: Afebrile Blood Pressure: Normal Pulse: Regular Respiratory Rate: Normal Appearance: Positive for: Well-Appearing, Non-Toxic, Comfortable Pain Distress: None Mental Status: Positive for: Alert and Oriented X 3 - Systems Exam Head: Present: Atraumatic Mouth: Present: Moist Mucous Membranes Neck: Present: Normal Range of Motion Respiratory/Chest: Present: Clear to Auscultation, Good Air Exchange. No: Respiratory Distress, Accessory Muscle Use Cardiovascular: Present: Regular Rate and Rhythm, Normal S1, S2. No: Murmurs Abdomen: No: Tenderness, Rebound, Guarding Back: Present: Normal Inspection Upper Extremity: Present: Normal ROM Lower Extremity: Present: Normal ROM Neurological: Present: GCS=15, Speech Normal Skin: Present: Warm, Dry, Normal Color. No: Rashes Psychiatric: Present: Alert, Oriented x 3 Medical Decision Making ED Course and Treatment: 04/11/18 18:14 47yr old female presenting s/p overdose reversed with narcan. alert and oriented in no distress. cbc; wbc;12.8 cmp; slightly elevated ast alt. cxr; no infiltrate. ekg; normal sinus rhythm at [address] elevations incomplete right bundle branch block normal axis head ct: FINDINGS: BRAIN No acute intraparenchymal hemorrhage. No mass lesion. No CT evidence for acute territorial infarct. No midline shift or extra-axial collections. VENTRICLES: No hydrocephalus. ORBITS: The orbits are unremarkable. SINUSES AND MASTOIDS: The paranasal sinuses and mastoid air cells are clear. BONES: No fracture. SOFT TISSUES: Unremarkable. IMPRESSION: No acute intracranial abnormality. Electronically signed on Apr 11, 2018 8:10:45 PM EST by: Linus Baker M.D., KARLIE Certified By [facility] [employer] [facility] Fellowship Trained MRI and CT Specialist 04/11/18 20:46 pt reassessment; pt is non toxic well appearing; no distress.denies any complaints. alert and oriented. impression; overdose increase fluids follow up with the primary care physician within the next 2 days. return if symptoms worsen,persist or if new symptoms develop. Reassessment Condition: Re-examined, Improved - RAD Interpretation Radiology Orders: 04/11/18 17:06 HEAD W/O CONTRAST [CT] Stat 04/11/18 17:07 CHEST PORTABLE [RAD] Stat - Medication Orders Current Medication Orders: Discontinued Medications Albuterol/Ipratropium (Duoneb 3 Mg/0.5 Mg (3 Ml) Ud) 3 ml IH STAT STA Stop: 04/11/18 17:08 Last Admin: 04/11/18 17:12 Dose: 3 ml Disposition/Present on Arrival - Present on Arrival Any Indicators Present on Arrival: No History of DVT/PE: No History of Uncontrolled Diabetes: No Urinary Catheter: No History of Decub. Ulcer: No History Surgical Site Infection Following: None - Disposition Have Diagnosis and Disposition been Completed?: Yes Diagnosis: Heroin overdose, Heroin abuse Disposition: HOME/ ROUTINE Disposition Time: 20:47 Patient Plan: Discharge Patient Problems: Current Active Problems Problem Status Onset Heroin overdose Acute Heroin abuse Chronic Condition: GOOD Discharge Instructions (ExitCare): Narcotic Overdose (DC) Additional Instructions: Increase fluids follow up with the primary care physician within the next 2 days. return if symptoms worsen,persist or if new sy Referrals: Mariam Galvez MD [Medical Doctor] - Follow up with primary [facility] [Outside] - Follow up with primary Forms: [employer] (Irish)
--- NOTE | 2018-04-11 17:42 | RAD ---
HISTORY: overdose COMPARISON: Chest x-ray performed 12/31/17 TECHNIQUE: Chest, one view. FINDINGS: Examination limited by habitus. LUNGS: Bilateral hilar prominence. No focal consolidation. Please note that chest x-ray has limited sensitivity for the detection of pulmonary masses. PLEURA: No significant pleural effusion identified. No definite pneumothorax . CARDIOVASCULAR: The heart size appears borderline enlarged. No significant atherosclerotic calcification present. OSSEOUS STRUCTURES: Degenerative changes. VISUALIZED UPPER ABDOMEN: Unremarkable. OTHER FINDINGS: None. IMPRESSION: No focal consolidation identified. Bilateral hilar prominence. Heart size appears borderline enlarged.
[2018-04-11 21:36] VITALS: BP 107/74; PULSE 89; RESP 18; TEMP 98.1; O2SAT 96
--- NOTE | 2018-04-12 00:15 | CARD ---
APPROVED REPORT Date of service: 04/11/2018 EKG Measurement Heart [id number] <Conclusion> Normal sinus rhythm Incomplete right bundle branch block Borderline ECG
--- NOTE | 2018-04-12 08:33 | CT ---
Date of service: 04/11/2018 PROCEDURE: CT HEAD WITHOUT CONTRAST. HISTORY: overdose, headache COMPARISON: None available. TECHNIQUE: Axial computed tomography images were obtained through the head/brain without intravenous contrast. Radiation dose: Total exam DLP = 916.31 mGy-cm. This CT exam was performed using one or more of the following dose reduction techniques: Automated exposure control, adjustment of the mA and/or kV according to patient size, and/or use of iterative reconstruction technique. FINDINGS: HEMORRHAGE: No intracranial hemorrhage. BRAIN: No mass effect or edema. No atrophy or chronic microvascular ischemic changes. VENTRICLES: Unremarkable. No hydrocephalus. CALVARIUM: Unremarkable. PARANASAL SINUSES: Unremarkable as visualized. No significant inflammatory changes. MASTOID AIR CELLS: Unremarkable as visualized. No inflammatory changes. OTHER FINDINGS: None. IMPRESSION: Normal CT of the Head.
== END 2018-04-11 21:35 | disposition home or self-care (01) ==
LOC: ED 16:30
DX: T40.1X1A Poisoning by heroin, accidental (unintentional), initial encounter (principal); R51 Headache; F11.10 Opioid abuse, uncomplicated; I50.9 Heart failure, unspecified; I10 Essential (primary) hypertension

== ENCOUNTER 2018-05-05 23:04 | Observation (INO) | payer MEDICAID ==
[2018-05-05] MEDS ORDERED: Albuterol-Ipratrop 3 mg / 0.5 (3 ml) UD ONE (23:18)
--- NOTE | 2018-05-05 23:32 | ED PDOC ---
Arrival/HPI - General Chief Complaint: Respiratory Distress Time Seen by Provider: 05/05/18 23:20 Historian: Patient - History of Present Illness Narrative History of Present Illness (Text): 05/05/18 23:28 A 47 year old female, whose past medical history includes COPD, asthma, ETOH abuse, heroin abuse, presents to the emergency department for further evaluation of 1 hour duration shortness of breath and lower extremity edema. Patient reports that her current symptoms feel similar to her typical asthma exacerbation. She denies any drug use today. States that she last used about 1 week ago. She states that she has a productive cough with associated yellow sputum. Patient also complaining of bilateral lower extremity edema and redness that started approximately 1 week ago. She reports associated leg pain, exacerbated with walking. She denies fevers, chills, headache, dizziness, chest pain, dyspnea on exertion, abdominal pain, nausea, vomiting, diarrhea, back pain, neck pain, urinary/bowel changes, or any other complaint. Time/Duration: 4-6 hours, 1 week Symptom Onset: Sudden Symptom Course: Unchanged Activities at Onset: Rest, Light Context: Home Past Medical History - Provider Review Nursing Documentation Reviewed: Yes - Infectious Disease Hx of Infectious Diseases: None - Tetanus Immunization Tetanus Immunization: Unknown - Cardiac Hx Cardiac Disorders: Yes Hx Congestive Heart Failure: Yes Hx Hypertension: Yes - Pulmonary Hx Respiratory Disorders: Yes Hx Asthma: Yes Hx Chronic Obstructive Pulmonary Disease (COPD): Yes - Neurological Hx Neurological Disorder: No - HEENT Hx HEENT Disorder: No - Renal Hx Renal Disorder: Yes - Endocrine/Metabolic Hx Endocrine Disorders: No - Hematological/Oncological Hx Blood Disorders: Yes Hx Hepatitis C: Yes - Integumentary Hx Dermatological Disorder: No - Musculoskeletal/Rheumatological Hx Musculoskeletal Disorders: No - Gastrointestinal Hx Gastrointestinal Disorders: Yes Hx Pancreatitis: Yes - Genitourinary/Gynecological Hx Genitourinary Disorders: Yes Hx Sexually Transmitted Diseases: Yes - Psychiatric Hx Psychophysiologic Disorder: Yes Hx Anxiety: Yes Hx Depression: Yes Hx Substance Use: Yes - Surgical History Hx Appendectomy: Yes Hx Tonsillectomy: Yes Other/Comment: tonsillectomy - Anesthesia Hx Anesthesia: Yes Hx Anesthesia Reactions: No Hx Malignant Hyperthermia: No - Suicidal Assessment Feels Threatened In Home Enviroment: No Family/Social History - Physician Review Nursing Documentation Reviewed: Yes Family/Social History: No Known Family HX Smoking Status: Current Some Days Smoker Hx Alcohol Use: Yes Hx Substance Use: Yes Substance used: heroin Hx Substance Use Treatment: Yes Allergies/Home Meds Allergies/Adverse Reactions: Allergies No Known Allergies Allergy (Verified 05/05/18 23:17) Review of Systems - Physician Review All systems were reviewed & negative as marked: Yes - Review of Systems Constitutional: absent: Fevers Respiratory: Cough, Sputum. absent: SOB Cardiovascular: absent: Chest Pain, BAI Gastrointestinal: absent: Abdominal Pain, Stool Changes, Diarrhea, Nausea, Vomiting Genitourinary Female: absent: Urine Output Changes Musculoskeletal: absent: Back Pain, Neck Pain Neurological: absent: Headache, Dizziness Physical Exam Temperature: Afebrile Blood Pressure: Hypotensive Pulse: Tachycardic Respiratory Rate: Normal Appearance: Positive for: Non-Toxic, Unkept, Uncomfortable (Visible shortness of breath ) Pain Distress: None Mental Status: Positive for: Alert and Oriented X 3 - Systems Exam Head: Present: Atraumatic, Normocephalic Pupils: Present: PERRL Extroacular Muscles: Present: EOMI Conjunctiva: Present: Normal Mouth: Present: Moist Mucous Membranes Neck: Present: Normal Range of Motion Respiratory/Chest: Present: Good Air Exchange, Wheezes (Diffuse bilateral expiratory wheezing ). No: Respiratory Distress, Accessory Muscle Use Cardiovascular: Present: Regular Rate and Rhythm, Normal S1, S2. No: Murmurs Abdomen: Present: Normal Bowel Sounds. No: Tenderness, Distention, Peritoneal Signs, Rebound, Guarding Back: Present: Normal Inspection. No: CVA Tenderness, Midline Tenderness, Paraspinal Tenderness Upper Extremity: Present: Normal Inspection, Normal ROM, NORMAL PULSES, Neurovascularly Intact, Capillary Refill < 2s. No: Cyanosis, Edema, Tenderness, Swelling, Erythema Lower Extremity: Present: Edema (bilateral pitting edema. ), Erythema (Bilateral redness in lower legs), Temperature Abnormalties (mildly increased warmth. ), Neurovascularly Intact, Other (No open wounds.) Neurological: Present: GCS=15, CN II-XII Intact, Speech Normal, Motor Func Grossly Intact, Normal Sensory Function, Gait Normal Skin: Present: Warm, Dry, Normal Color. No: Rashes Lymphatic: No: Cervical Adenopathy Psychiatric: Present: Alert, Oriented x 3, Normal Insight, Normal Concentration, Normal Affect, Normal Mood Medical Decision Making ED Course and Treatment: 05/05/18 23:35 Impression: A 47 year old tobacco smoking female presents to the emergency department with a complaint of shortness of breath and lower extremity edema bilaterally. Plan: -- EKG -- Chest X-ray -- Urinalysis -- Labs -- Duoneb -- Solumedrol -- Magnesium -- Reassess and disposition On initial evaluation, patient visibly SOB, on duoneb. Unable to speak in full sentences. Prior Visits: Notes and results from previous visits were reviewed. Progress Notes: 02:37 Labwork unremarkable Troponin negative EKG per baseline CXR negative as read by me US prelim reading negative or DVT Pt reports only very mild improvement in symptoms after medications. Lung exam improved but continues to have decreased breath sound and diffuse expiratory wheezing throughout with intermittent rhonchi. Continues to be visibly short of breath and audibly wheezing with tachycardia. O2 sat in mid-low 90s while awake and low 90s while sleeping. Continues to c/o bilateral lower extremity pain. Will admit for acute asthma exacerbation and peripheral edema. 2:[address] Garces who accepts patient for inpatient observation with diagnosis of status asthmaticus. Patient made aware of change in disposition. - Lab Interpretations Lab Results: 05/05/18 23:51 05/05/18 23:51 Lab Results 05/06/18 01:20: pCO2 39, pO2 67.0 L, HCO3 25.9, ABG pH 7.43, ABG Total CO2 27.1, ABG O2 Saturation 96.9, ABG O2 Content 16.8, ABG Base Excess 1.5, ABG Hemoglobin 13.1, ABG Carboxyhemoglobin 5.3 H, POC ABG HHb (Measured) 2.9, ABG Methemoglobin 0.8, ABG O2 Capacity 17.3, Hgb O2 Saturation 91.0 L, FiO2 21.0 05/06/18 01:00: D-Dimer, Quantitative < 200 05/05/18 23:51: PT 10.6, INR 0.93, APTT 27.2 05/05/18 23:51: Influenza Typ A,B (EIA) Negative for flu a/b 05/05/18 23:51: Sodium 140, Potassium 3.9, Chloride 104, Carbon Dioxide 27, Anion Gap 12, BUN 8, Creatinine 0.6 L, Est GFR ( Amer) > 60, Est GFR (Non-Af Amer) > 60, Random Glucose 100, Calcium 8.8, Phosphorus 4.5, Magnesium 1.8, Total Bilirubin 0.5, AST 52 H D, ALT 47, Alkaline Phosphatase 82, Troponin I < 0.01, NT-Pro-B Natriuret Pep 25.3, Total Protein 7.2, Albumin 3.8, Globulin 3.4, Albumin/Globulin Ratio 1.1 05/05/18 23:51: WBC 8.0 D, RBC 4.62, Hgb 14.9, Hct 44.8, MCV 97.0, MCH 32.3, MCHC 33.3, RDW 14.9 H, Plt Count 330, MPV 10.1, Gran % 44.9 L, Lymph % (Auto) 41.9 H, Harper % (Auto) 9.8 H, Eos % (Auto) 2.9, Baso % (Auto) 0.5, Gran # 3.61, Lymph # (Auto) 3.4, Harper # (Auto) 0.8 H, Eos # (Auto) 0.2, Baso # (Auto) 0.04 I have reviewed the lab results: Yes - RAD Interpretation Narrative RAD Interpretations (Text): 05/06/18 02:55 CXR: No active disease, read by me Radiology Orders: 05/05/18 23:25 CHEST PORTABLE [RAD] Stat Delicatessen Department Manager: ED Physician - EKG Interpretation EKG Interpretation (Text): 05/06/18 02:55 rate 105; sinus tachycardia; normal intervals; no STEMI, non specific ST/T wave changes Interpreted by ED Physician: Yes Type: 12 lead EKG Comparison: Similar to previous EKG (04/11/18) - Scribe Statement The provider has reviewed the documentation as recorded by the Rosettaibe Sofia Castañeda Provider Scribe Attestation: All medical record entries made by the Scribe were at my direction and personally dictated by me. I have reviewed the chart and agree that the record accurately reflects my personal performance of the history, physical exam, medical decision making, and the department course for this patient. I have also personally directed, reviewed, and agree with the discharge instructions and disposition. Disposition/Present on Arrival - Present on Arrival Any Indicators Present on Arrival: No History of DVT/PE: No History of Uncontrolled Diabetes: No Urinary Catheter: No History of Decub. Ulcer: No History Surgical Site Infection Following: None - Disposition Have Diagnosis and Disposition been Completed?: Yes Diagnosis: Status asthmaticus with COPD (chronic obstructive pulmonary disease), P eripheral edema Disposition: HOSPITALIZED Disposition Time: 02:45 Patient Plan: Observation, Telemetry (Remote Tele) Patient Problems: Current Active Problems Problem Status Onset Status asthmaticus with COPD (chronic obstructive pulmonary disease) Acute Condition: STABLE
[2018-05-05] MEDS: Albuterol-Ipratrop 3 mg / 0.5 (3 ml) UD IH SCH (23:56)
[2018-05-06 00:13] LABS: BASO # 0.04 K/mm3 (0.0-2.0); BASO % 0.5 % (0.0-3.0); EOS # 0.2 (0.0-0.7); EOS % 2.9 % (1.5-5.0); GRAN # 3.61 (1.4-6.5); GRAN % 44.9 % (50.0-68.0); HEMOGLOBIN 14.9 g/dL (12.0-16.0); LYMPH # 3.4 (1.2-3.4); LYMPH % 41.9 % (22.0-35.0); MEAN CORPUSCULAR HEMOGLOBIN 32.3 pg (25.0-35.0); MEAN CORPUSCULAR HGB CONC 33.3 g/dl (31.0-37.0); MEAN PLATELET VOLUME 10.1 fl (7.0-11.0); MONO # 0.8 (0.1-0.6); MONO % 9.8 % (1.0-6.0); RBC 4.62 10^6/uL (3.5-6.1); RED CELL DISTRIBUTION WIDTH 14.9 % (11.5-14.5)
[2018-05-06 00:15] LABS: INR 0.93; PARTIAL THROMBOPLASTIN TIME 27.2 Seconds (25.1-36.5); PROTHROMBIN TIME 10.6 SECONDS (9.4-12.5)
[2018-05-06 00:28] LABS: ALB/GLOB RATIO 1.1 (1.1-1.8); ALBUMIN 3.8 g/dL (3.0-4.8); ALT/SGPT 47 U/L (7-56); AST/SGOT 52 U/L (14-36); BLOOD UREA NITROGEN 8 mg/dL (7-21); CALCIUM 8.8 mg/dL (8.4-10.5); GFR NON-AFRICAN AMERICAN > 60
[2018-05-06 00:36] LABS: B-TYPE NATRIURETIC PEPTIDE 25.3 pg/mL (0-450); TROPONIN I < 0.01 ng/mL
[2018-05-06] MEDS ORDERED: Magnesium Sulfate 2 gm/50 ml 2 GM/50 ML BAG IVPB ONE (00:36)
[2018-05-06] MEDS: Albuterol-Ipratrop 3 mg / 0.5 (3 ml) UD IH SCH ×4 (01:02→22:12)
[2018-05-06 01:32] LABS: ARTERIAL BLOOD GAS HCO3 25.9 mmol/L (21-28); ARTERIAL BLOOD GAS HEMOGLOBIN 13.1 g/dL (11.7-17.4); ARTERIAL BLOOD GAS O2 CAPACITY 17.3 mL/dl (16-24); ARTERIAL BLOOD GAS O2 CONTENT 16.8 ML/dl (15-23); ARTERIAL BLOOD GAS O2 SAT 96.9 % (95-98); ARTERIAL BLOOD GAS PCO2 39 mm/Hg (35-45); ARTERIAL BLOOD GAS PH 7.43 (7.35-7.45); ARTERIAL BLOOD GAS TCO2 27.1 mmol.L (22-28)
--- NOTE | 2018-05-06 03:31 | CP.PCM.HP ---
<Aquilino Haley - Last Filed: 05/06/18 08:03> History of Present Illness - History of Present Illness History of Present Illness: Aquilino Haley DO, PGY1. H&P for Dr. Mili SalinasC: SOB, b/l LE edema 47 y/o female with PMH of COPD, asthma, known untreated hepatitis C with cirrhosis, alcohol abuse, IV drug abuse presented to ED with SOB x1 day. She uses inhalers at home but provided little to no relief today. She also reports b/l LE edema/erythema and abdominal distension that's getting worse for the past 1 week. She denied any trauma. Patient admits to continued drinking habits with last drink was this afternoon. She denies fever, chills, headache, changes in her vision, sore throat, dysphagia, chest pain, palpitations, abdominal pain, N/V/D, sick contacts. 12 points ROS reviewed with pertinent positive above PMH: COPD, asthma, alcohol/heroin abuse, and hepatitis C with liver cirrhosis PSH: Appendectomy, tonsillectomy Family History: Father-DM2 Social History: Smokes 1/2 pk/day for >30 years, drinks 5-6 cans of four frances daily (14% alcohol x 24 ounces), reports prior IVDU, currently snorts heroin 2- 10 bags weekly; homeless Allergies: NKDA Home Medications: As per JUN PMD: none Present on Admission - Present on Admission Any Indicators Present on Admission: No Past Patient History - Infectious Disease Hx of Infectious Diseases: None - Tetanus Immunizations Tetanus Immunization: Unknown - Past Medical History & Family History Past Medical History?: Yes - Past Social History Smoking Status: Current Some Days Smoker - CARDIAC Hx Cardiac Disorders: Yes Hx Congestive Heart Failure: Yes Hx Hypertension: Yes - PULMONARY Hx Respiratory Disorders: Yes Hx Asthma: Yes Hx Chronic Obstructive Pulmonary Disease (COPD): Yes - NEUROLOGICAL Hx Neurological Disorder: No - HEENT Hx HEENT Problems: No - RENAL Hx Chronic Kidney Disease: Yes - ENDOCRINE/METABOLIC Hx Endocrine Disorders: No - HEMATOLOGICAL/ONCOLOGICAL Hx Blood Disorders: Yes Hx Hepatitis C: Yes - INTEGUMENTARY Hx Dermatological Problems: No - MUSCULOSKELETAL/RHEUMATOLOGICAL Hx Musculoskeletal Disorders: No - GASTROINTESTINAL Hx Gastrointestinal Disorders: Yes Hx Pancreatitis: Yes - GENITOURINARY/GYNECOLOGICAL Hx Genitourinary Disorders: Yes Hx Sexually Transmitted Disorders: Yes - PSYCHIATRIC Hx Psychophysiologic Disorder: Yes Hx Anxiety: Yes Hx Depression: Yes Hx Substance Use: Yes - SURGICAL HISTORY Hx Appendectomy: Yes Hx Tonsillectomy: Yes Other/Comment: tonsillectomy - ANESTHESIA Hx Anesthesia: Yes Hx Anesthesia Reactions: No Hx Malignant Hyperthermia: No Meds Home Medications: Home Medication List Medication Instructions Recorded Confirmed Type Albuterol HFA [Ventolin HFA 90 2 puff IH Q4H PRN #1 inhaler 05/07/18 Rx mcg/actuation (8 g)] Methylprednisolone [Medrol Dose 4 mg PO DAILY #21 mg 05/07/18 Rx Pack (21 tabs)] Allergies/Adverse Reactions: Allergies Allergy/AdvReac Type Severity Reaction Status Date / Time No Known Allergies Allergy Verified 05/05/18 23:17 Physical Exam - Constitutional Appears: Well, No Acute Distress, Unkempt - Head Exam Head Exam: ATRAUMATIC, NORMAL INSPECTION, NORMOCEPHALIC - Eye Exam Eye Exam: EOMI, Normal appearance, PERRL Pupil Exam: NORMAL ACCOMODATION, PERRL - ENT Exam ENT Exam: Mucous Membranes Dry - Neck Exam Neck exam: Positive for: Normal Inspection - Respiratory Exam Respiratory Exam: Decreased Breath Sounds, Prolonged Expiratory Phase, Wheezes - Cardiovascular Exam Cardiovascular Exam: REGULAR RHYTHM, +S1, +S2. absent: Gallop, JVD, Rubs - GI/Abdominal Exam GI & Abdominal Exam: Distended, Normal Bowel Sounds, Soft. absent: Guarding, Pulsatile Mass, Rebound, Rigid, Tenderness - Extremities Exam Extremities exam: Positive for: normal capillary refill, normal inspection, pedal pulses present Additional comments: b/l LE edema up to knee level - Back Exam Back exam: NORMAL INSPECTION - Neurological Exam Neurological exam: Alert, Motor Sensory Deficit, Oriented x3, Reflexes Normal - Psychiatric Exam Psychiatric exam: Anxious - Skin Skin Exam: Erythema (b/l LE) Results - Vital Signs Recent Vital Signs: Last Vital Signs Temp 98.8 F 05/05/18 23:30 Pulse 105 H 05/05/18 23:30 Resp 20 05/06/18 00:16 BP 92/61 L 05/05/18 23:30 Pulse Ox 96 05/06/18 00:16 - Labs Result Diagrams: 05/06/18 05:00 05/06/18 05:00 Labs: Laboratory Results - last 24 hr 05/05/18 05/05/18 05/05/18 23:51 23:51 23:51 WBC 8.0 D RBC 4.62 Hgb 14.9 Hct 44.8 MCV 97.0 MCH 32.3 MCHC 33.3 RDW 14.9 H Plt Count 330 MPV 10.1 Gran % 44.9 L Lymph % (Auto) 41.9 H Baxter % (Auto) 9.8 H Eos % (Auto) 2.9 Baso % (Auto) 0.5 Gran # 3.61 Lymph # (Auto) 3.4 Baxter # (Auto) 0.8 H Eos # (Auto) 0.2 Baso # (Auto) 0.04 PT INR APTT D-Dimer, Quantitative pCO2 pO2 HCO3 ABG pH ABG Total CO2 ABG O2 Saturation ABG O2 Content ABG Base Excess ABG Hemoglobin ABG Carboxyhemoglobin POC ABG HHb (Measured) ABG Methemoglobin ABG O2 Capacity Hgb O2 Saturation FiO2 Sodium 140 Potassium 3.9 Chloride 104 Carbon Dioxide 27 Anion Gap 12 BUN 8 Creatinine 0.6 L Est GFR ( Amer) > 60 Est GFR (Non-Af Amer) > 60 Random Glucose 100 Calcium 8.8 Phosphorus 4.5 Magnesium 1.8 Total Bilirubin 0.5 AST 52 H D ALT 47 Alkaline Phosphatase 82 Troponin I < 0.01 NT-Pro-B Natriuret Pep 25.3 Total Protein 7.2 Albumin 3.8 Globulin 3.4 Albumin/Globulin Ratio 1.1 Influenza Typ A,B (EIA) Negative for flu a/b 05/05/18 05/06/18 05/06/18 23:51 01:00 01:20 WBC RBC Hgb Hct MCV MCH MCHC RDW Plt Count MPV Gran % Lymph % (Auto) Baxter % (Auto) Eos % (Auto) Baso % (Auto) Gran # Lymph # (Auto) Baxter # (Auto) Eos # (Auto) Baso # (Auto) PT 10.6 INR 0.93 APTT 27.2 D-Dimer, Quantitative < 200 pCO2 39 pO2 67.0 L HCO3 25.9 ABG pH 7.43 ABG Total CO2 27.1 ABG O2 Saturation 96.9 ABG O2 Content 16.8 ABG Base Excess 1.5 ABG Hemoglobin 13.1 ABG Carboxyhemoglobin 5.3 H POC ABG HHb (Measured) 2.9 ABG Methemoglobin 0.8 ABG O2 Capacity 17.3 Hgb O2 Saturation 91.0 L FiO2 21.0 Sodium Potassium Chloride Carbon Dioxide Anion Gap BUN Creatinine Est GFR ( Amer) Est GFR (Non-Af Amer) Random Glucose Calcium Phosphorus Magnesium Total Bilirubin AST ALT Alkaline Phosphatase Troponin I NT-Pro-B Natriuret Pep Total Protein Albumin Globulin Albumin/Globulin Ratio Influenza Typ A,B (EIA) Assessment & Plan - Assessment and Plan (Free Text) Assessment: 47 y/o female with PMH of COPD, asthma, known untreated hepatitis C with cirrhosis, alcohol abuse, IV drug abuse presented to ED with SOB x1 day Plan: COPD exacerbation - duobneb Q2H prn, Q6H schedule - Chest X-ray shows no infiltrate - continue zithromax, rocephin - continue solu-medrol - O2 NC prn -f/u procal Alcohol abuse -Alcohol level <10 -Ativan 1q6 PRN -Banana bag at 100mls/hr -CIWA Q4 -UDS -Aspiration, Fall and Seizure precautions -Nicotine patch LE edema: - D-dimer <200 - Duplex U/S of LE - Blood culture GI/DVT ppx: - Pepcid - heparin q12 Case reviewed and discussed with attending physician, Dr. Mili Haley DO <Ingrid Garces - Last Filed: 05/10/18 04:02> Results - Vital Signs Recent Vital Signs: Last Vital Signs Temp 100.3 F H 05/06/18 06:00 Pulse 100 H 05/06/18 06:00 Resp 19 05/06/18 06:00 BP 130/84 05/06/18 06:00 Pulse Ox 95 05/06/18 06:00 - Labs Result Diagrams: 05/07/18 05:25 05/07/18 05:25 Labs: Laboratory Results - last 24 hr 05/05/18 05/05/18 05/05/18 23:51 23:51 23:51 WBC 8.0 D RBC 4.62 Hgb 14.9 Hct 44.8 MCV 97.0 MCH 32.3 MCHC 33.3 RDW 14.9 H Plt Count 330 MPV 10.1 Gran % 44.9 L Lymph % (Auto) 41.9 H Baxter % (Auto) 9.8 H Eos % (Auto) 2.9 Baso % (Auto) 0.5 Gran # 3.61 Lymph # (Auto) 3.4 Baxter # (Auto) 0.8 H Eos # (Auto) 0.2 Baso # (Auto) 0.04 PT INR APTT D-Dimer, Quantitative pCO2 pO2 HCO3 ABG pH ABG Total CO2 ABG O2 Saturation ABG O2 Content ABG Base Excess ABG Hemoglobin ABG Carboxyhemoglobin POC ABG HHb (Measured) ABG Methemoglobin ABG O2 Capacity Hgb O2 Saturation FiO2 Sodium 140 Potassium 3.9 Chloride 104 Carbon Dioxide 27 Anion Gap 12 BUN 8 Creatinine 0.6 L Est GFR ( Amer) > 60 Est GFR (Non-Af Amer) > 60 Random Glucose 100 Calcium 8.8 Phosphorus 4.5 Magnesium 1.8 Total Bilirubin 0.5 AST 52 H D ALT 47 Alkaline Phosphatase 82 Troponin I < 0.01 NT-Pro-B Natriuret Pep 25.3 Total Protein 7.2 Albumin 3.8 Globulin 3.4 Albumin/Globulin Ratio 1.1 Urine Color Urine Appearance Urine pH Ur Specific [place] Urine Protein Urine Glucose (UA) Urine Ketones Urine Blood Urine Nitrate Urine Bilirubin Urine Urobilinogen Ur Leukocyte Esterase Urine Opiates Screen Urine Methadone Screen Ur Barbiturates Screen Ur Phencyclidine Scrn Ur Amphetamines Screen U Benzodiazepines Scrn U Oth Cocaine Metabols U Cannabinoids Screen Alcohol, Quantitative Influenza Typ A,B (EIA) Negative for flu a/b 05/05/18 05/06/18 05/06/18 23:51 01:00 01:20 WBC RBC Hgb Hct MCV MCH MCHC RDW Plt Count MPV Gran % Lymph % (Auto) Baxter % (Auto) Eos % (Auto) Baso % (Auto) Gran # Lymph # (Auto) Baxter # (Auto) Eos # (Auto) Baso # (Auto) PT 10.6 INR 0.93 APTT 27.2 D-Dimer, Quantitative < 200 pCO2 39 pO2 67.0 L HCO3 25.9 ABG pH 7.43 ABG Total CO2 27.1 ABG O2 Saturation 96.9 ABG O2 Content 16.8 ABG Base Excess 1.5 ABG Hemoglobin 13.1 ABG Carboxyhemoglobin 5.3 H POC ABG HHb (Measured) 2.9 ABG Methemoglobin 0.8 ABG O2 Capacity 17.3 Hgb O2 Saturation 91.0 L FiO2 21.0 Sodium Potassium Chloride Carbon Dioxide Anion Gap BUN Creatinine Est GFR ( Amer) Est GFR (Non-Af Amer) Random Glucose Calcium Phosphorus Magnesium Total Bilirubin AST ALT Alkaline Phosphatase Troponin I NT-Pro-B Natriuret Pep Total Protein Albumin Globulin Albumin/Globulin Ratio Urine Color Urine Appearance Urine pH Ur Specific [place] Urine Protein Urine Glucose (UA) Urine Ketones Urine Blood Urine Nitrate Urine Bilirubin Urine Urobilinogen Ur Leukocyte Esterase Urine Opiates Screen Urine Methadone Screen Ur Barbiturates Screen Ur Phencyclidine Scrn Ur Amphetamines Screen U Benzodiazepines Scrn U Oth Cocaine Metabols U Cannabinoids Screen Alcohol, Quantitative Influenza Typ A,B (EIA) 05/06/18 05/06/18 05/06/18 02:30 03:45 03:45 WBC RBC Hgb Hct MCV MCH MCHC RDW Plt Count MPV Gran % Lymph % (Auto) Baxter % (Auto) Eos % (Auto) Baso % (Auto) Gran # Lymph # (Auto) Baxter # (Auto) Eos # (Auto) Baso # (Auto) PT INR APTT D-Dimer, Quantitative pCO2 pO2 HCO3 ABG pH ABG Total CO2 ABG O2 Saturation ABG O2 Content ABG Base Excess ABG Hemoglobin ABG Carboxyhemoglobin POC ABG HHb (Measured) ABG Methemoglobin ABG O2 Capacity Hgb O2 Saturation FiO2 Sodium Potassium Chloride Carbon Dioxide Anion Gap BUN Creatinine Est GFR ( Amer) Est GFR (Non-Af Amer) Random Glucose Calcium Phosphorus Magnesium Total Bilirubin AST ALT Alkaline Phosphatase Troponin I NT-Pro-B Natriuret Pep Total Protein Albumin Globulin Albumin/Globulin Ratio Urine Color Dark yellow Urine Appearance Sl cloudy Urine pH 6.0 Ur Specific [place] >= 1.030 Urine Protein Negative Urine Glucose (UA) Negative Urine Ketones Trace H Urine Blood Negative Urine Nitrate Negative Urine Bilirubin Small H Urine Urobilinogen 1.0 H Ur Leukocyte Esterase Negative Urine Opiates Screen Negative Urine Methadone Screen Negative Ur Barbiturates Screen Negative Ur Phencyclidine Scrn Negative Ur Amphetamines Screen Negative U Benzodiazepines Scrn Negative U Oth Cocaine Metabols Negative U Cannabinoids Screen Positive H Alcohol, Quantitative < 10 Influenza Typ A,B (EIA) Attending/Attestation - Attestation I have personally seen and examined this patient.: Yes I have fully participated in the care of the patient.: Yes I have reviewed all pertinent clinical information: Yes Notes (Text): 05/06/18 06:54 Patient was seen when she was in [id number]. Agree with history,physical examination, assessment and plan, note is not complete. This 47 year old white was admitted with sob, lower extremities edema. Has PMH of COPD/asthma, hepatitis , cirrhosis, ETOH abuse, heroine abuse ,smoker. Will admit to telemetry, regular diet, duoneb treatment, CIWA protocol, IV steroids, seizure precautions. 05/10/18 04:02
[2018-05-06] MEDS ORDERED: Folic Acid 1 MG, Thiamine 100 MG, Multivitamin (MVI) 10 ML in Dextrose 5% In Water 1,00... IV SCH (04:15)
[2018-05-06] MEDS ORDERED: Albuterol-Ipratrop 3 mg / 0.5 (3 ml) UD IH PRN (04:19)
[2018-05-06 04:30] LABS: URINE BILIRUBIN SMALL (NEGATIVE); URINE BLOOD NEGATIVE (NEGATIVE); URINE GLUCOSE (UA) NEGATIVE (NEGATIVE); URINE LEUKOCYTE ESTERASE NEGATIVE Leu/uL (NEGATIVE); URINE PROTEIN NEGATIVE mg/dL (<30 mg/dL)
[2018-05-06 04:32] LABS: URINE APPEARANCE SL CLOUDY (CLEAR); URINE COLOR DARK YELLOW (YELLOW)
[2018-05-06 05:08] LABS: BARBITURATES, UR NEGATIVE (NEGATIVE); BENZODIAZEPINES, UR NEGATIVE (NEGATIVE); OPIATES, UR NEGATIVE (NEGATIVE); PHENCYCLIDINE, UR NEGATIVE (NEGATIVE)
[2018-05-06] MEDS: MethylPREDNISolone 40 mg Vial IVP SCH ×3 (05:15→22:56)
[2018-05-06 06:47] VITALS: BMI 23.0
[2018-05-06 06:58] LABS: ALB/GLOB RATIO 1.1 (1.1-1.8); ALBUMIN 3.5 g/dL (3.0-4.8); ALT/SGPT 42 U/L (7-56); AST/SGOT 43 U/L (14-36); BLOOD UREA NITROGEN 9 mg/dL (7-21); CALCIUM 8.7 mg/dL (8.4-10.5); GFR NON-AFRICAN AMERICAN > 60
[2018-05-06 07:10] LABS: BASO # 0.01 K/mm3 (0.0-2.0); BASO % 0.2 % (0.0-3.0); GRAN # 5.22 (1.4-6.5); GRAN % 87.5 % (50.0-68.0); LYMPH # 0.7 (1.2-3.4); LYMPH % 11.1 % (22.0-35.0); MEAN CELL VOLUME 96.6 fl (80.0-105.0); MEAN CORPUSCULAR HEMOGLOBIN 31.5 pg (25.0-35.0); MEAN CORPUSCULAR HGB CONC 32.6 g/dl (31.0-37.0); MEAN PLATELET VOLUME 10.9 fl (7.0-11.0); MONO # 0.1 (0.1-0.6); MONO % 1.2 % (1.0-6.0); RBC 4.45 10^6/uL (3.5-6.1)
[2018-05-06] MEDS: cefTRIAXone 1 gm 1 GM/100 ML BAG IVPB SCH (11:40)
[2018-05-06] MEDS: Azithromycin 500MG/NS 250ml 500 MG/250 ML BAG IVPB SCH (11:46)
--- NOTE | 2018-05-06 12:32 | US ---
Date of service: 05/06/2018 HISTORY: abdominal distention COMPARISON: None. TECHNIQUE: Sonographic evaluation of the abdomen. FINDINGS: LIVER: Measures 14.9 cm. Diffusely increased echogenicity of the liver parenchyma. Consistent with fatty infiltration. Smooth contour. No mass. No intrahepatic biliary dilatation. Normal hepatopetal portal venous flow. GALLBLADDER: Cholelithiasis. No mural thickening. No pericholecystic fluid. Negative sonographic Keenan sign. COMMON BILE DUCT: Measures 7 mm. Minimally dilated. Uncertain significance. PANCREAS: Unremarkable as visualized. No mass. No ductal dilatation. RIGHT KIDNEY: Measures 11.9cm. Normal echogenicity. No calculus, mass, or hydronephrosis. LEFT KIDNEY: Measures 9.7cm. Normal echogenicity. No calculus, mass, or hydronephrosis. SPLEEN: Normal in size and contour. No mass. AORTA: No aneurysmal dilatation. IVC: Unremarkable. OTHER FINDINGS: None. IMPRESSION: Cholelithiasis without sonographic evidence of cholecystitis. Fatty infiltration of the liver. Minimal dilatation of common bile duct to 7 mm diameter. Uncertain significance, without associated intrahepatic biliary ductal dilatation.
--- NOTE | 2018-05-06 12:49 | US ---
HISTORY: Leg pain and swelling. Evaluate for DVT PHYSICIAN(S): Jitendra Garcia MD. TECHNIQUE: Duplex sonography and color-flow Doppler with graded compression were used to evaluate the deep venous systems of both lower extremities. The exam is somewhat limited by edema. FINDINGS: The visualized deep venous systems of both lower extremities are sonographically normal and compressible. Normal wave forms and augmentation are seen. There is no sonographic evidence for deep venous thrombosis in the visualized segments of both lower extremities. IMPRESSION: No sonographic evidence for deep venous thrombosis in the visualized segments of both lower extremities.
--- NOTE | 2018-05-06 17:00 | RAD ---
Date of service: 05/06/2018 HISTORY: SOB COMPARISON: 04/11/2018 FINDINGS: LUNGS: No active pulmonary disease. PLEURA: No significant pleural effusion identified, no pneumothorax apparent. CARDIOVASCULAR: No aortic atherosclerotic calcification present. Normal cardiac size. No pulmonary vascular congestion. OSSEOUS STRUCTURES: Old healed fractures right 7th and 8th ribs posterolaterally. VISUALIZED UPPER ABDOMEN: Normal. OTHER FINDINGS: None. IMPRESSION: No active disease.
[2018-05-06 21:29] VITALS: RESP 20
[2018-05-07] MEDS: Albuterol-Ipratrop 3 mg / 0.5 (3 ml) UD IH SCH ×3 (02:45→13:15)
[2018-05-07] MEDS: MethylPREDNISolone 40 mg Vial IVP SCH (05:27)
[2018-05-07 06:35] LABS: BASO # 0.01 K/mm3 (0.0-2.0); BASO % 0.1 % (0.0-3.0); GRAN # 14.24 (1.4-6.5); GRAN % 84.2 % (50.0-68.0); LYMPH # 1.4 (1.2-3.4); LYMPH % 8.5 % (22.0-35.0); MEAN CELL VOLUME 96.8 fl (80.0-105.0); MEAN CORPUSCULAR HEMOGLOBIN 31.8 pg (25.0-35.0); MEAN CORPUSCULAR HGB CONC 32.9 g/dl (31.0-37.0); MEAN PLATELET VOLUME 10.7 fl (7.0-11.0); MONO # 1.2 (0.1-0.6); MONO % 7.2 % (1.0-6.0); RBC 4.4 10^6/uL (3.5-6.1); RED CELL DISTRIBUTION WIDTH 14.6 % (11.5-14.5); WHITE BLOOD COUNT 16.9 10^3/uL (4.5-11.0)
[2018-05-07 06:57] LABS: ALB/GLOB RATIO 1.1 (1.1-1.8); ALBUMIN 3.5 g/dL (3.0-4.8); ALT/SGPT 32 U/L (7-56); AST/SGOT 23 U/L (14-36); BLOOD UREA NITROGEN 10 mg/dL (7-21); CALCIUM 8.8 mg/dL (8.4-10.5); GFR NON-AFRICAN AMERICAN > 60
--- NOTE | 2018-05-07 07:48 | CARD ---
APPROVED REPORT Date of service: 05/05/2018 EKG Measurement Heart [id number] <Conclusion> Sinus tachycardia Nonspecific T wave abnormality Abnormal ECG
[2018-05-07] MEDS ORDERED: Multivitamin With Minerals Tab PO SCH (08:00)
[2018-05-07 08:18] VITALS: BP 145/92; PULSE 96; TEMP 98.3; O2SAT 96
[2018-05-07] MEDS: cefTRIAXone 1 gm 1 GM/100 ML BAG IVPB SCH (09:14)
[2018-05-07] MEDS: Azithromycin 500MG/NS 250ml 500 MG/250 ML BAG IVPB SCH (09:16)
[2018-05-07] MEDS ORDERED: MethylPREDNISolone 40 mg Vial IVP SCH (10:00)
--- NOTE | 2018-05-07 14:23 | CP.PCM.DIS ---
<Laureano Salomon - Last Filed: 05/07/18 14:15> Provider - Provider Date of Admission: 05/06/18 02:46 Attending physician: Junaid Ruose MD Primary care physician: NO PRIMARY CARE PROVIDER Consults: 05/06/18 04:09 Social Work Referral Routine Comment: Patient recently evicted from home, homeless Physician Instructions: Reason For Exam: Protocol Transition In Care/Readmission Reduction Routine Comment: Physician Instructions: Reason For Exam: Protocol 05/06/18 06:48 Transition In Care/Readmission Reduction Routine Comment: Physician Instructions: Reason For Exam: admission assessment 05/06/18 06:49 Social Work Referral Routine Comment: admission assessment Physician Instructions: Reason For Exam: denise score 9 05/07/18 10:14 Shift Lab Technician [Case Management Referral] Routine Comment: Physician Instructions: Reason For Exam: Reason for Referral: Discharge Planning Time Spent in preparation of Discharge (in minutes): 45 Diagnosis - Discharge Diagnosis (1) COPD (chronic obstructive pulmonary disease) Status: Resolved Hospital Course - Lab Results Lab Results: Micro Results 05/06/18 03:45 Urine Random Urine Culture - Final No Growth (<1,000 CFU/ML) 05/06/18 06:10 Blood Blood Culture - Preliminary NO GROWTH AFTER 24 HOURS Most Recent Lab Values WBC 16.9 10^3/uL (4.5-11.0) H D 05/07/18 05:25 RBC 4.40 10^6/uL (3.5-6.1) 05/07/18 05:25 Hgb 14.0 g/dL (12.0-16.0) 05/07/18 05:25 Hct 42.6 % (36.0-48.0) 05/07/18 05:25 MCV 96.8 fl (80.0-105.0) 05/07/18 05:25 MCH 31.8 pg (25.0-35.0) 05/07/18 05:25 MCHC 32.9 g/dl (31.0-37.0) 05/07/18 05:25 RDW 14.6 % (11.5-14.5) H 05/07/18 05:25 Plt Count 340 10^3/uL (120.0-450.0) 05/07/18 05:25 MPV 10.7 fl (7.0-11.0) 05/07/18 05:25 Gran % 84.2 % (50.0-68.0) H 05/07/18 05:25 Lymph % (Auto) 8.5 % (22.0-35.0) L 05/07/18 05:25 Cook % (Auto) 7.2 % (1.0-6.0) H 05/07/18 05:25 Eos % (Auto) 0.0 % (1.5-5.0) L 05/07/18 05:25 Baso % (Auto) 0.1 % (0.0-3.0) 05/07/18 05:25 Gran # 14.24 (1.4-6.5) H 05/07/18 05:25 Lymph # (Auto) 1.4 (1.2-3.4) 05/07/18 05:25 Cook # (Auto) 1.2 (0.1-0.6) H 05/07/18 05:25 Eos # (Auto) 0.0 (0.0-0.7) 05/07/18 05:25 Baso # (Auto) 0.01 K/mm3 (0.0-2.0) 05/07/18 05:25 PT 10.6 SECONDS (9.4-12.5) 05/05/18 23:51 INR 0.93 05/05/18 23:51 APTT 26.8 Seconds (25.1-36.5) 05/06/18 10:00 D-Dimer, Quantitative < 200 ng/mlDDU (0-243) 05/06/18 01:00 pCO2 39 mm/Hg (35-45) 05/06/18 01:20 pO2 67.0 mm/Hg (80-100) L 05/06/18 01:20 HCO3 25.9 mmol/L (21-28) 05/06/18 01:20 ABG pH 7.43 (7.35-7.45) 05/06/18 01:20 ABG Total CO2 27.1 mmol.L (22-28) 05/06/18 01:20 ABG O2 Saturation 96.9 % (95-98) 05/06/18 01:20 ABG O2 Content 16.8 ML/dl (15-23) 05/06/18 01:20 ABG Base Excess 1.5 mmol/L (-2.0-3.0) 05/06/18 01:20 ABG Hemoglobin 13.1 g/dL (11.7-17.4) 05/06/18 01:20 ABG Carboxyhemoglobin 5.3 % (0.5-1.5) H 05/06/18 01:20 POC ABG HHb (Measured) 2.9 % (0-5) 05/06/18 01:20 ABG Methemoglobin 0.8 % (0.0-3.0) 05/06/18 01:20 ABG O2 Capacity 17.3 mL/dl (16-24) 05/06/18 01:20 Hgb O2 Saturation 91.0 % (95.0-98.0) L 05/06/18 01:20 FiO2 21.0 % 05/06/18 01:20 Sodium 137 mmol/L (132-148) 05/07/18 05:25 Potassium 4.4 mmol/L (3.6-5.0) 05/07/18 05:25 Chloride 105 mmol/L (98-107) 05/07/18 05:25 Carbon Dioxide 27 mmol/L (21-33) 05/07/18 05:25 Anion Gap 9 (10-20) L 05/07/18 05:25 BUN 10 mg/dL (7-21) 05/07/18 05:25 Creatinine 0.5 mg/dl (0.7-1.2) L 05/07/18 05:25 Est GFR ( Amer) > 60 05/07/18 05:25 Est GFR (Non-Af Amer) > 60 05/07/18 05:25 Random Glucose 136 mg/dL (70-110) H 05/07/18 05:25 Calcium 8.8 mg/dL (8.4-10.5) 05/07/18 05:25 Phosphorus 3.4 mg/dL (2.5-4.5) 05/06/18 05:00 Magnesium 2.1 mg/dL (1.7-2.2) 05/06/18 05:00 Total Bilirubin 0.4 mg/dL (0.2-1.3) 05/07/18 05:25 AST 23 U/L (14-36) 05/07/18 05:25 ALT 32 U/L (7-56) 05/07/18 05:25 Alkaline Phosphatase 68 U/L (38-126) 05/07/18 05:25 Troponin I < 0.01 ng/mL 05/05/18 23:51 NT-Pro-B Natriuret Pep 25.3 pg/mL (0-450) 05/05/18 23:51 Total Protein 6.6 g/dL (5.8-8.3) 05/07/18 05:25 Albumin 3.5 g/dL (3.0-4.8) 05/07/18 05:25 Globulin 3.1 gm/dL 05/07/18 05:25 Albumin/Globulin Ratio 1.1 (1.1-1.8) 05/07/18 05:25 Procalcitonin < 0.05 NG/ML (0.19-0.49) L 05/06/18 05:00 Urine Color Dark yellow (YELLOW) 05/06/18 03:45 Urine Appearance Sl cloudy (CLEAR) 05/06/18 03:45 Urine pH 6.0 (4.7-8.0) 05/06/18 03:45 Ur Specific [place] >= 1.030 (1.005-1.035) 05/06/18 03:45 Urine Protein Negative mg/dL (<30 mg/dL) 05/06/18 03:45 Urine Glucose (UA) Negative mg/dL (NEGATIVE) 05/06/18 03:45 Urine Ketones Trace mg/dL (NEGATIVE) H 05/06/18 03:45 Urine Blood Negative (NEGATIVE) 05/06/18 03:45 Urine Nitrate Negative (NEGATIVE) 05/06/18 03:45 Urine Bilirubin Small (NEGATIVE) H 05/06/18 03:45 Urine Urobilinogen 1.0 E.U./dL (<1 E.U./dL) H 05/06/18 03:45 Ur Leukocyte Esterase Negative Erik/uL (NEGATIVE) 05/06/18 03:45 Urine Opiates Screen Negative (NEGATIVE) 05/06/18 03:45 Urine Methadone Screen Negative (NEGATIVE) 05/06/18 03:45 Ur Barbiturates Screen Negative (NEGATIVE) 05/06/18 03:45 Ur Phencyclidine Scrn Negative (NEGATIVE) 05/06/18 03:45 Ur Amphetamines Screen Negative (NEGATIVE) 05/06/18 03:45 U Benzodiazepines Scrn Negative (NEGATIVE) 05/06/18 03:45 U Oth Cocaine Metabols Negative (NEGATIVE) 05/06/18 03:45 U Cannabinoids Screen Positive (NEGATIVE) H 05/06/18 03:45 Alcohol, Quantitative < 10 mg/dL (0-10) 05/06/18 02:30 Influenza Typ A,B (EIA) Negative for flu a/b (NEGATIVE) 05/05/18 23:51 - Hospital Course Hospital Course: Upon Admission: 47 y/o female with PMH of COPD, asthma, known untreated hepatitis C with cirrhosis, alcohol abuse, IV drug abuse presented to ED with SOB x1 day. She uses inhalers at home but provided little to no relief today. She also reports b/l LE edema/erythema and abdominal distension that's getting worse for the past 1 week. She denied any trauma. Patient admits to continued drinking habits with last drink was this afternoon. Hospital Course: Pt was treated as COPD exacerbation with duoneb prn and scheduled treatments, IV solumedrol scheduled, rocephin/azithromycin. She was also given folic acid/thiamine/multivitamin for hx of ETOH abuse. During hospital course, clinical status improved. Upon Discharge: Pt is feeling better. Wheezing has improved. She is afebrile, vital signs are stable. She is given instructions on follow-up and medication compliance. Discharge Exam - Head Exam Head Exam: ATRAUMATIC, NORMAL INSPECTION, NORMOCEPHALIC - Eye Exam Eye Exam: EOMI, Normal appearance - ENT Exam ENT Exam: Mucous Membranes Moist, Normal Exam - Neck Exam Neck exam: Normal Inspection - Respiratory Exam Respiratory Exam: NORMAL BREATHING PATTERN, UNREMARKABLE - Cardiovascular Exam Cardiovascular Exam: REGULAR RHYTHM, +S1, +S2 - GI/Abdominal Exam GI & Abdominal Exam: Unremarkable - Extremities Exam Extremities exam: normal inspection - Back Exam Back exam: NORMAL INSPECTION - Neurological Exam Neurological exam: Alert, Oriented x3 - Psychiatric Exam Psychiatric exam: Normal Affect, Normal Mood - Skin Skin Exam: Dry, Intact, Warm Discharge Plan - Discharge Medications Prescriptions: Albuterol HFA [Ventolin HFA 90 mcg/actuation (8 g)] 2 puff IH Q4H PRN #1 inhaler PRN Reason: Shortness Of Breath Methylprednisolone [Medrol Dose Pack (21 tabs)] 4 mg PO DAILY #21 mg - Follow Up Plan Condition: STABLE Disposition: HOME/ ROUTINE Additional Instructions: Please follow up with your primary care doctor within 3-5 days of discharge Please take your medications as prescribed. Please use your rescue inhaler Please abstain from heroin and alcohol and other illicit drug use Please stop smoking If your symptoms persist or return please return to nearest emergency room Referrals: PCP,NO [Primary Care Provider] - <Junaid Rouse - Last Filed: 05/08/18 13:55> Provider - Provider Date of Admission: 05/06/18 02:46 Attending physician: Junaid Rouse MD Primary care physician: JEIMY PRIMARY CARE PROVIDER Consults: 05/06/18 04:09 Social Work Referral Routine Comment: Patient recently evicted from home, homeless Physician Instructions: Reason For Exam: Protocol Transition In Care/Readmission Reduction Routine Comment: Physician Instructions: Reason For Exam: Protocol 05/06/18 06:48 Transition In Care/Readmission Reduction Routine Comment: Physician Instructions: Reason For Exam: admission assessment 05/06/18 06:49 Social Work Referral Routine Comment: admission assessment Physician Instructions: Reason For Exam: denise score 9 05/07/18 10:14 Shift Lab Technician [Case Management Referral] Routine Comment: Physician Instructions: Reason For Exam: Reason for Referral: Discharge Planning Hospital Course - Lab Results Lab Results: Micro Results 05/06/18 06:10 Blood Blood Culture - Preliminary NO GROWTH AFTER 48 HOURS 05/06/18 03:45 Urine Random Urine Culture - Final No Growth (<1,000 CFU/ML) Most Recent Lab Values WBC 16.9 10^3/uL (4.5-11.0) H D 05/07/18 05:25 RBC 4.40 10^6/uL (3.5-6.1) 05/07/18 05:25 Hgb 14.0 g/dL (12.0-16.0) 05/07/18 05:25 Hct 42.6 % (36.0-48.0) 05/07/18 05:25 MCV 96.8 fl (80.0-105.0) 05/07/18 05:25 MCH 31.8 pg (25.0-35.0) 05/07/18 05:25 MCHC 32.9 g/dl (31.0-37.0) 05/07/18 05:25 RDW 14.6 % (11.5-14.5) H 05/07/18 05:25 Plt Count 340 10^3/uL (120.0-450.0) 05/07/18 05:25 MPV 10.7 fl (7.0-11.0) 05/07/18 05:25 Gran % 84.2 % (50.0-68.0) H 05/07/18 05:25 Lymph % (Auto) 8.5 % (22.0-35.0) L 05/07/18 05:25 Cook % (Auto) 7.2 % (1.0-6.0) H 05/07/18 05:25 Eos % (Auto) 0.0 % (1.5-5.0) L 05/07/18 05:25 Baso % (Auto) 0.1 % (0.0-3.0) 05/07/18 05:25 Gran # 14.24 (1.4-6.5) H 05/07/18 05:25 Lymph # (Auto) 1.4 (1.2-3.4) 05/07/18 05:25 Cook # (Auto) 1.2 (0.1-0.6) H 05/07/18 05:25 Eos # (Auto) 0.0 (0.0-0.7) 05/07/18 05:25 Baso # (Auto) 0.01 K/mm3 (0.0-2.0) 05/07/18 05:25 PT 10.6 SECONDS (9.4-12.5) 05/05/18 23:51 INR 0.93 05/05/18 23:51 APTT 26.8 Seconds (25.1-36.5) 05/06/18 10:00 D-Dimer, Quantitative < 200 ng/mlDDU (0-243) 05/06/18 01:00 pCO2 39 mm/Hg (35-45) 05/06/18 01:20 pO2 67.0 mm/Hg (80-100) L 05/06/18 01:20 HCO3 25.9 mmol/L (21-28) 05/06/18 01:20 ABG pH 7.43 (7.35-7.45) 05/06/18 01:20 ABG Total CO2 27.1 mmol.L (22-28) 05/06/18 01:20 ABG O2 Saturation 96.9 % (95-98) 05/06/18 01:20 ABG O2 Content 16.8 ML/dl (15-23) 05/06/18 01:20 ABG Base Excess 1.5 mmol/L (-2.0-3.0) 05/06/18 01:20 ABG Hemoglobin 13.1 g/dL (11.7-17.4) 05/06/18 01:20 ABG Carboxyhemoglobin 5.3 % (0.5-1.5) H 05/06/18 01:20 POC ABG HHb (Measured) 2.9 % (0-5) 05/06/18 01:20 ABG Methemoglobin 0.8 % (0.0-3.0) 05/06/18 01:20 ABG O2 Capacity 17.3 mL/dl (16-24) 05/06/18 01:20 Hgb O2 Saturation 91.0 % (95.0-98.0) L 05/06/18 01:20 FiO2 21.0 % 05/06/18 01:20 Sodium 137 mmol/L (132-148) 05/07/18 05:25 Potassium 4.4 mmol/L (3.6-5.0) 05/07/18 05:25 Chloride 105 mmol/L (98-107) 05/07/18 05:25 Carbon Dioxide 27 mmol/L (21-33) 05/07/18 05:25 Anion Gap 9 (10-20) L 05/07/18 05:25 BUN 10 mg/dL (7-21) 05/07/18 05:25 Creatinine 0.5 mg/dl (0.7-1.2) L 05/07/18 05:25 Est GFR ( Amer) > 60 05/07/18 05:25 Est GFR (Non-Af Amer) > 60 05/07/18 05:25 Random Glucose 136 mg/dL (70-110) H 05/07/18 05:25 Calcium 8.8 mg/dL (8.4-10.5) 05/07/18 05:25 Phosphorus 3.4 mg/dL (2.5-4.5) 05/06/18 05:00 Magnesium 2.1 mg/dL (1.7-2.2) 05/06/18 05:00 Total Bilirubin 0.4 mg/dL (0.2-1.3) 05/07/18 05:25 AST 23 U/L (14-36) 05/07/18 05:25 ALT 32 U/L (7-56) 05/07/18 05:25 Alkaline Phosphatase 68 U/L (38-126) 05/07/18 05:25 Troponin I < 0.01 ng/mL 05/05/18 23:51 NT-Pro-B Natriuret Pep 25.3 pg/mL (0-450) 05/05/18 23:51 Total Protein 6.6 g/dL (5.8-8.3) 05/07/18 05:25 Albumin 3.5 g/dL (3.0-4.8) 05/07/18 05:25 Globulin 3.1 gm/dL 05/07/18 05:25 Albumin/Globulin Ratio 1.1 (1.1-1.8) 05/07/18 05:25 Procalcitonin < 0.05 NG/ML (0.19-0.49) L 05/06/18 05:00 Urine Color Dark yellow (YELLOW) 05/06/18 03:45 Urine Appearance Sl cloudy (CLEAR) 05/06/18 03:45 Urine pH 6.0 (4.7-8.0) 05/06/18 03:45 Ur Specific [place] >= 1.030 (1.005-1.035) 05/06/18 03:45 Urine Protein Negative mg/dL (<30 mg/dL) 05/06/18 03:45 Urine Glucose (UA) Negative mg/dL (NEGATIVE) 05/06/18 03:45 Urine Ketones Trace mg/dL (NEGATIVE) H 05/06/18 03:45 Urine Blood Negative (NEGATIVE) 05/06/18 03:45 Urine Nitrate Negative (NEGATIVE) 05/06/18 03:45 Urine Bilirubin Small (NEGATIVE) H 05/06/18 03:45 Urine Urobilinogen 1.0 E.U./dL (<1 E.U./dL) H 05/06/18 03:45 Ur Leukocyte Esterase Negative Erik/uL (NEGATIVE) 05/06/18 03:45 Urine Opiates Screen Negative (NEGATIVE) 05/06/18 03:45 Urine Methadone Screen Negative (NEGATIVE) 05/06/18 03:45 Ur Barbiturates Screen Negative (NEGATIVE) 05/06/18 03:45 Ur Phencyclidine Scrn Negative (NEGATIVE) 05/06/18 03:45 Ur Amphetamines Screen Negative (NEGATIVE) 05/06/18 03:45 U Benzodiazepines Scrn Negative (NEGATIVE) 05/06/18 03:45 U Oth Cocaine Metabols Negative (NEGATIVE) 05/06/18 03:45 U Cannabinoids Screen Positive (NEGATIVE) H 05/06/18 03:45 Alcohol, Quantitative < 10 mg/dL (0-10) 05/06/18 02:30 Influenza Typ A,B (EIA) Negative for flu a/b (NEGATIVE) 05/05/18 23:51 Attending/Attestation - Attestation I have personally seen and examined this patient.: Yes I have fully participated in the care of the patient.: Yes I have reviewed all pertinent clinical information, including history, physical exam and plan: Yes Notes (Text): 05/08/18 13:42 Attending note; Patient seen and examined with resident. Patient is alert and awake. Wheezing has improved. Cough is improved. Currently off oxygen. Patient continues to smoke. Patient drinks alcohol daily. Patient is a 47-year-old female with past medical history of COPD, asthma, known untreated hepatitis C with cirrhosis, alcohol abuse, IV drug abuse that presented to the emergency room with difficulty breathing, shortness of breath, and alcohol abuse. 1. COPD exacerbation. Resolving. Treated with oxygen, DuoNeb, IV Solu-Medrol and Zithromax. Chest x-rays negative. 2. Alcohol intoxication history of alcohol abuse. Patient counseled on cessation. Continue vitamin, thiamine, and folic acid. Not in acute withdrawal. 3. Abdominal pain, distention. Improving. Abdominal ultrasound per radiologist shows cholelithiasis. Dietary education given. Low-fat low-cholesterol diet ordered. 4. History of untreated hepatitis C. Patient again counseled on following up outpatient for treatment 5. Tobacco abuse. Continue Nicoderm patch. Patient again counseled on cessation 6. Homelessness; psych social worker evaluation appreciated. Long Term information given. Patient ambulated this physical therapy. Pulse ox is stable. Prognosis is poor because of continuous smoking, alcohol, drug abuse and homelessness. Patient is advised to follow-up with PMD of choice within insurance coverage.
== END 2018-05-07 16:18 | disposition home or self-care (01) ==
LOC: ED 23:04 → ERH 05-06 02:46 → 2RNO 05-06 04:06
PROVIDERS: ADMIT Internal Medicine; ATTEND Internal Medicine
DX: J44.1 Chronic obstructive pulmonary disease with (acute) exacerbation (principal); K74.60 Unspecified cirrhosis of liver; I13.0 Hypertensive heart and chronic kidney disease with heart failure and stage 1 through stage 4 chronic kidney disease, or unspecified chronic kidney disease; I50.9 Heart failure, unspecified; N18.9 Chronic kidney disease, unspecified; K80.20 Calculus of gallbladder without cholecystitis without obstruction; B19.20 Unspecified viral hepatitis C without hepatic coma; F10.129 Alcohol abuse with intoxication, unspecified; F17.200 Nicotine dependence, unspecified, uncomplicated; F11.10 Opioid abuse, uncomplicated; Y90.0 Blood alcohol level of less than 20 mg/100 ml; Z59.0 Homelessness
CPT/HCPCS: 36415; 36600; 71045; 76700; 80053; 80320; 80324; 80345; 80346; 80349; 80353; 80358; 80361; 81003; 81025; 82803; 83735; 83880; 83992; 84100; 84145; 84484; 85025; 85378; 85610; 85730; 87040; 87086; 87804; 93005; 93970; 94640; 96365; 96368; 96372; 96375; 96376; 97116; 97161; 99285; C9113; G0378; G8978; G8979; G8980; J0456; J0696; J1644; J1885; J2060; J2920; J2930; J3411; J7070

== ENCOUNTER 2018-05-16 16:42 | Inpatient (IN) | payer MEDICAID ==
[2018-05-16] MEDS ORDERED: Albuterol-Ipratrop 3 mg / 0.5 (3 ml) UD IH STA ×3 (16:54→18:20)
[2018-05-16 17:49] LABS: BASO # 0.05 K/mm3 (0.0-2.0); BASO % 0.4 % (0.0-3.0); EOS # 0.3 (0.0-0.7); EOS % 2.2 % (1.5-5.0); HEMOGLOBIN 15.2 g/dL (12.0-16.0); LYMPH # 3.8 (1.2-3.4); LYMPH % 32.5 % (22.0-35.0); MEAN CELL VOLUME 97.7 fl (80.0-105.0); MEAN CORPUSCULAR HEMOGLOBIN 32.3 pg (25.0-35.0); MEAN CORPUSCULAR HGB CONC 33.1 g/dl (31.0-37.0); MEAN PLATELET VOLUME 9.8 fl (7.0-11.0); MONO # 1.3 (0.1-0.6); MONO % 11.1 % (1.0-6.0); RBC 4.7 10^6/uL (3.5-6.1); RED CELL DISTRIBUTION WIDTH 14.8 % (11.5-14.5); WHITE BLOOD COUNT 11.6 10^3/uL (4.5-11.0)
--- NOTE | 2018-05-16 18:00 | ED PDOC ---
Arrival/HPI - General Chief Complaint: Shortness Of Breath Time Seen by Provider: 05/16/18 16:53 Historian: Patient - History of Present Illness Narrative History of Present Illness (Text): 05/16/18 17:58 47-year-old female with a history of asthma, alcohol abuse and heroin abuse presents today with shortness of breath. Patient states she has been coughing for the past few days and noticed that her breathing has been gradually worsening. Patient states [place] [address] and has not taken her medications. She is complaining of chills but denies fevers. No chest pain. She denies abdominal pain. No nausea or vomiting. Patient denies dizziness or weakness. Patient states the cough is occasionally productive. No other complaints Past Medical History - Provider Review Nursing Documentation Reviewed: Yes - Travel History Have you recently traveled outside [place] w/in the past 3 mons?: No - Infectious Disease Hx of Infectious Diseases: None - Tetanus Immunization Tetanus Immunization: Unknown - Reproductive Currently : No - Cardiac Hx Cardiac Disorders: Yes Hx Congestive Heart Failure: Yes Hx Hypertension: Yes - Pulmonary Hx Chronic Obstructive Pulmonary Disease (COPD): Yes - Neurological Hx Neurological Disorder: No - HEENT Hx HEENT Disorder: No - Renal Hx Renal Disorder: Yes - Endocrine/Metabolic Hx Endocrine Disorders: No - Hematological/Oncological Hx Blood Disorders: Yes Hx Hepatitis C: Yes - Integumentary Hx Dermatological Disorder: No - Musculoskeletal/Rheumatological Hx Musculoskeletal Disorders: No - Gastrointestinal Hx Gastrointestinal Disorders: Yes Hx Pancreatitis: Yes - Genitourinary/Gynecological Hx Genitourinary Disorders: Yes Hx Sexually Transmitted Diseases: Yes - Psychiatric Hx Psychophysiologic Disorder: Yes Hx Anxiety: Yes Hx Depression: Yes Hx Substance Use: Yes - Surgical History Hx Appendectomy: Yes Hx Tonsillectomy: Yes Other/Comment: tonsillectomy - Anesthesia Hx Anesthesia: Yes Hx Anesthesia Reactions: No Hx Malignant Hyperthermia: No - Suicidal Assessment Feels Threatened In Home Enviroment: No Family/Social History - Physician Review Nursing Documentation Reviewed: Yes Family/Social History: Unknown Family HX Smoking Status: Current Some Days Smoker Hx Alcohol Use: Yes Hx Substance Use: Yes Substance used: heroin Hx Substance Use Treatment: Yes Allergies/Home Meds Allergies/Adverse Reactions: Allergies No Known Allergies Allergy (Verified 05/05/18 23:17) Review of Systems - Review of Systems Constitutional: absent: Fatigue, Fevers ENT: Sinus Congestion. absent: Sore Throat Respiratory: SOB, Cough Cardiovascular: absent: Chest Pain, Palpitations Gastrointestinal: absent: Abdominal Pain, Nausea, Vomiting Musculoskeletal: Other (leg swelling bilaterally). absent: Arthralgias Skin: absent: Rash, Pruritis Neurological: absent: Headache, Dizziness Psychiatric: absent: Anxiety, Depression Physical Exam Vital Signs Reviewed: Yes Vital Signs Temp Pulse Resp BP Pulse Ox 05/16/18 16:52 98.0 F 103 H 20 132/73 98 Temperature: Afebrile Blood Pressure: Normal Pulse: Tachycardic Respiratory Rate: Tachypneic Appearance: Positive for: Well-Appearing, Non-Toxic, Comfortable Pain Distress: None Mental Status: Positive for: Alert and Oriented X 3 - Systems Exam Head: Present: Atraumatic Mouth: Present: Moist Mucous Membranes Neck: Present: Normal Range of Motion Respiratory/Chest: Present: Good Air Exchange, Wheezes, Rhonchi, Tachypneic. No: Clear to Auscultation, Respiratory Distress Cardiovascular: Present: Regular Rate and Rhythm. No: Murmurs Abdomen: No: Tenderness, Distention, Peritoneal Signs, Rebound, Guarding Upper Extremity: Present: Normal ROM Lower Extremity: Present: Edema (+ 1+ edema bilaterally) Neurological: Present: GCS=15, Speech Normal Skin: Present: Warm, Dry Psychiatric: Present: Alert, Oriented x 3 Medical Decision Making ED Course and Treatment: 05/16/18 18:01 47-year-old female presents with asthma exacerbation CBC: White blood cell count 11.6 CMP: wnl VBG: lactate; 1.7 Troponin within normal limits BNP within normal limits ekg; NSR at 96 b/m no st elevations Chest x-ray: no infiltrate reviewed by dr. Scott UA: Blood cultures pending Urine cultures pending pt reassessment; patient requiring multiple duo nebs Solu-Medrol and dose of magnesium. Still saturating at 95% on 2 L with diffuse wheezing. Case discussed with Dr. Garces in depth accepts observational status admission for COPD exacerbation to tele. impression; copd/asthma exacerbation admit observational status tele. Reassessment Condition: Re-examined, Improving,but remains with symptoms - RAD Interpretation Radiology Orders: 05/16/18 16:55 CHEST PORTABLE [RAD] Stat - Medication Orders Current Medication Orders: Discontinued Medications Albuterol/Ipratropium (Duoneb 3 Mg/0.5 Mg (3 Ml) Ud) 3 ml IH STAT STA Stop: 05/16/18 16:55 Last Admin: 05/16/18 17:01 Dose: 3 ml Albuterol/Ipratropium (Duoneb 3 Mg/0.5 Mg (3 Ml) Ud) 3 ml IH STAT STA Stop: 05/16/18 16:57 Last Admin: 05/16/18 17:01 Dose: 3 ml Methylprednisolone (Solu-Medrol) 125 mg IVP STAT STA Stop: 05/16/18 16:55 Last Admin: 05/16/18 17:39 Dose: 125 mg IVP Administration Document 05/16/18 17:39 LA (Rec: 05/16/18 17:39 LA [id number]) Charges for Administration # of IVP Administrations 1 Disposition/Present on Arrival - Present on Arrival Any Indicators Present on Arrival: No History of DVT/PE: No History of Uncontrolled Diabetes: No Urinary Catheter: No History of Decub. Ulcer: No History Surgical Site Infection Following: None - Disposition Have Diagnosis and Disposition been Completed?: Yes Diagnosis: Asthma exacerbation, COPD exacerbation Disposition: HOSPITALIZED Disposition Time: 18:03 Patient Plan: Observation, Telemetry Patient Problems: Current Active Problems Problem Status Onset Asthma attack Acute COPD exacerbation Acute Condition: FAIR Forms: [employer] ([place]ian)
[2018-05-16 18:11] LABS: VENOUS BLOOD GAS PO2 81 mm/Hg (30-55); VENOUS BLOOD PH 7.48 (7.32-7.43)
[2018-05-16 18:18] LABS: ALB/GLOB RATIO 1.1 (1.1-1.8); ALBUMIN 3.5 g/dL (3.0-4.8); ALT/SGPT 41 U/L (7-56); AST/SGOT 43 U/L (14-36); B-TYPE NATRIURETIC PEPTIDE 19.3 pg/mL (0-450); BLOOD UREA NITROGEN 4 mg/dL (7-21); CALCIUM 8.5 mg/dL (8.4-10.5); GFR NON-AFRICAN AMERICAN > 60; TROPONIN I < 0.01 ng/mL
[2018-05-16 19:16] LABS: URINE BILIRUBIN NEGATIVE (NEGATIVE); URINE BLOOD NEGATIVE (NEGATIVE); URINE GLUCOSE (UA) NEGATIVE (NEGATIVE); URINE LEUKOCYTE ESTERASE NEGATIVE Leu/uL (NEGATIVE); URINE PROTEIN NEGATIVE mg/dL (<30 mg/dL)
[2018-05-16 19:18] LABS: URINE APPEARANCE CLEAR (CLEAR); URINE COLOR YELLOW (YELLOW)
[2018-05-16] MEDS ORDERED: Magnesium Sulfate 2 gm/50 ml 2 GM/50 ML BAG IVPB ONE (19:50)
[2018-05-16] MEDS ORDERED: Albuterol-Ipratrop 3 mg / 0.5 (3 ml) UD IH PRN (20:52)
[2018-05-16] MEDS: Azithromycin 500MG/NS 250ml 500 MG/250 ML BAG IVPB SCH (21:50)
[2018-05-16 22:02] LABS: BARBITURATES, UR NEGATIVE (NEGATIVE); BENZODIAZEPINES, UR POSITIVE (NEGATIVE); OPIATES, UR NEGATIVE (NEGATIVE); PHENCYCLIDINE, UR NEGATIVE (NEGATIVE)
[2018-05-16 22:44] VITALS: BMI 29.2
--- NOTE | 2018-05-16 23:04 | CP.PCM.HP ---
<José Antonio Reed - Last Filed: 05/17/18 00:11> History of Present Illness - History of Present Illness History of Present Illness: José Antonio Reed, PGY1 H&P for Dr. Garces cc: shortness of breath and cough Patient is a 47-year-old homeless female with a PMHx asthma, COPD, polysubstance abuse, medication non-compliance, Hepatitis C, Liver Cirrhosis who presented to the ED for shortness of breath and cough. In the ED, Vitals: Temp 98, HR 90, BP 123/64, RR 19, SaO2 95% on nasal cannula. Medical team was consulted for evaluation. Patient said her shortness of breath has been worsening recently. She has increased night time awakenings because of her shortness of breath. Her only medication is a rescue inhaler, which she uses multiple times a day without relief. Patient is not compliant with her medications. She denies chest pain, nausea, vomiting, diarrhea, fevers, chills, lightheadedness, dizziness, bowel/bladder changes. Patient also mentions that her last drink was a few hours ago. She has been frequently admitted to [facility]. A full 12 point ROS was conducted and unremarkable except as stated above. PMHx: asthma, COPD, polysubstance abuse, medication non-compliance, Hepatitis C, Liver Cirrhosis PSHx: appendectomy, tonsillectomy Meds: ventolin Allergies: NKDA SocialHx: patient is a current smoker, 1/2 PPD for more than 30 years, heavy alcohol user, and marijuana user. Homeless. FamHx: grandmother has COPD. Present on Admission - Present on Admission Any Indicators Present on Admission: No Review of Systems - Review of Systems All systems: reviewed and no additional remarkable complaints except (as per HPI) Past Patient History - Infectious Disease Hx of Infectious Diseases: None - Tetanus Immunizations Tetanus Immunization: Unknown - Past Medical History & Family History Past Medical History?: Yes - Past Social History Smoking Status: Smoker Currrent Status Unknown - CARDIAC Hx Cardiac Disorders: Yes Hx Congestive Heart Failure: Yes Hx Hypercholesterolemia: Yes Hx Hypertension: Yes - PULMONARY Hx Respiratory Disorders: Yes Hx Asthma: Yes Hx Bronchitis: Yes Hx Chronic Obstructive Pulmonary Disease (COPD): Yes Hx Emphysema: Yes Other/Comment: pneumothorax with chest tube - NEUROLOGICAL Hx Neurological Disorder: No Hx Seizures: No - HEENT Hx HEENT Problems: No - RENAL Hx Chronic Kidney Disease: No - ENDOCRINE/METABOLIC Hx Endocrine Disorders: No - HEMATOLOGICAL/ONCOLOGICAL Hx Blood Disorders: Yes Hx Hepatitis C: Yes - INTEGUMENTARY Hx Dermatological Problems: No - MUSCULOSKELETAL/RHEUMATOLOGICAL Hx Musculoskeletal Disorders: Yes Hx Falls: Yes Hx Fractures: Yes (right ankle, right knnee) - GASTROINTESTINAL Hx Gastrointestinal Disorders: Yes Hx Pancreatitis: No (denies) - GENITOURINARY/GYNECOLOGICAL Hx Genitourinary Disorders: No Hx Sexually Transmitted Disorders: No - PSYCHIATRIC Hx Psychophysiologic Disorder: Yes Hx Anxiety: Yes Hx Depression: Yes Hx Substance Use: Yes (herorin 2 weeks ago) Other/Comment: methadone, heorin and alcohol abuse - SURGICAL HISTORY Hx Surgeries: Yes Hx Appendectomy: Yes Other/Comment: tonsillectomy - ANESTHESIA Hx Anesthesia: Yes Hx Anesthesia Reactions: No Hx Malignant Hyperthermia: No Meds Allergies/Adverse Reactions: Allergies Allergy/AdvReac Type Severity Reaction Status Date / Time No Known Allergies Allergy Verified 05/05/18 23:17 Physical Exam - Constitutional Appears: No Acute Distress - Head Exam Head Exam: ATRAUMATIC, NORMAL INSPECTION, NORMOCEPHALIC - Eye Exam Eye Exam: EOMI, Normal appearance - ENT Exam ENT Exam: Mucous Membranes Moist, TM's Normal Bilaterally Additional comments: No airway swelling or edema. - Respiratory Exam Respiratory Exam: Rhonchi (Diffuse rhonci in bilateral lungs ). absent: Accessory Muscle Use, Chest Wall Tenderness, Stridor - Cardiovascular Exam Cardiovascular Exam: RRR, +S1, +S2 - GI/Abdominal Exam GI & Abdominal Exam: Normal Bowel Sounds, Soft. absent: Distended, Firm, Gua rding, Rigid, Tenderness - Extremities Exam Extremities exam: Positive for: normal capillary refill, normal inspection, pedal pulses present. Negative for: calf tenderness, joint swelling, pedal edema, tenderness Additional comments: Keloid lesions noted on bilateral lower extremities. - Neurological Exam Neurological exam: Alert, CN II-XII Intact, Oriented x3, Reflexes Normal - Psychiatric Exam Psychiatric exam: Normal Affect, Normal Mood - Skin Skin Exam: Dry, Intact, Normal Color, Warm Results - Vital Signs Recent Vital Signs: Last Vital Signs Temp 98 F 05/16/18 18:56 Pulse 80 05/16/18 21:59 Resp 20 05/16/18 22:04 BP 118/68 05/16/18 21:59 Pulse Ox 96 01/30/19 21:59 - Labs Result Diagrams: 05/16/18 17:40 05/16/18 17:54 Labs: Laboratory Results - last 24 hr 05/16/18 05/16/18 05/16/18 17:40 17:54 18:00 WBC 11.6 H D RBC 4.70 Hgb 15.2 Hct 45.9 MCV 97.7 MCH 32.3 MCHC 33.1 RDW 14.8 H Plt Count 376 MPV 9.8 Neut % (Auto) 53.8 Lymph % (Auto) 32.5 Clarke % (Auto) 11.1 H Eos % (Auto) 2.2 Baso % (Auto) 0.4 Lymph # (Auto) 3.8 H Clarke # (Auto) 1.3 H Eos # (Auto) 0.3 Baso # (Auto) 0.05 Absolute Neuts (auto) 6.22 pO2 81 H VBG pH 7.48 H VBG pCO2 42.0 VBG HCO3 31.3 H VBG Total CO2 32.6 H VBG O2 Sat (Calc) 98.4 H VBG Base Excess 7.0 H VBG Potassium 3.4 L Glucose 90 Lactate 1.7 FiO2 21.0 Sodium 140 141.0 Potassium 3.7 Chloride 105 105.0 Carbon Dioxide 28 Anion Gap 11 BUN 4 L Creatinine 0.6 L Est GFR ( Amer) > 60 Est GFR (Non-Af Amer) > 60 Random Glucose 90 Calcium 8.5 Total Bilirubin 0.4 AST 43 H D ALT 41 Alkaline Phosphatase 88 Lactate Dehydrogenase 528 Total Creatine Kinase 70 Troponin I < 0.01 NT-Pro-B Natriuret Pep 19.3 Total Protein 6.7 Albumin 3.5 Globulin 3.1 Albumin/Globulin Ratio 1.1 Venous Blood Potassium 3.4 L Urine Color Urine Appearance Urine pH Ur Specific Circle Urine Protein Urine Glucose (UA) Urine Ketones Urine Blood Urine Nitrate Urine Bilirubin Urine Urobilinogen Ur Leukocyte Esterase Urine Opiates Screen Urine Methadone Screen Ur Barbiturates Screen Ur Phencyclidine Scrn Ur Amphetamines Screen U Benzodiazepines Scrn U Oth Cocaine Metabols U Cannabinoids Screen Alcohol, Quantitative 05/16/18 05/16/18 05/16/18 19:01 21:20 21:20 WBC RBC Hgb Hct MCV MCH MCHC RDW Plt Count MPV Neut % (Auto) Lymph % (Auto) Clarke % (Auto) Eos % (Auto) Baso % (Auto) Lymph # (Auto) Clarke # (Auto) Eos # (Auto) Baso # (Auto) Absolute Neuts (auto) pO2 VBG pH VBG pCO2 VBG HCO3 VBG Total CO2 VBG O2 Sat (Calc) VBG Base Excess VBG Potassium Glucose Lactate FiO2 Sodium Potassium Chloride Carbon Dioxide Anion Gap BUN Creatinine Est GFR ( Amer) Est GFR (Non-Af Amer) Random Glucose Calcium Total Bilirubin AST ALT Alkaline Phosphatase Lactate Dehydrogenase Total Creatine Kinase Troponin I NT-Pro-B Natriuret Pep Total Protein Albumin Globulin Albumin/Globulin Ratio Venous Blood Potassium Urine Color Yellow Urine Appearance Clear Urine pH 7.[address] 1.010 Urine Protein Negative Urine Glucose (UA) Negative Urine Ketones Negative Urine Blood Negative Urine Nitrate Negative Urine Bilirubin Negative Urine Urobilinogen 2.0 H Ur Leukocyte Esterase Negative Urine Opiates Screen Negative Urine Methadone Screen Negative Ur Barbiturates Screen Negative Ur Phencyclidine Scrn Negative Ur Amphetamines Screen Negative U Benzodiazepines Scrn Positive H U Oth Cocaine Metabols Negative U Cannabinoids Screen Positive H Alcohol, Quantitative 179 H Assessment & Plan - Assessment and Plan (Free Text) Assessment: Patient is a 47-year-old homeless female with a PMHx asthma, COPD, polysubstance abuse, medication non-compliance, Hepatitis C, Liver Cirrhosis who presented to the ED for shortness of breath and cough. Patient will be admitted for Asthma vs COPD exacerbation. Plan: Asthma vs COPD Exacerbation - duonebs q6 standing and q2 prn - soloumedrol 40 IVP q12 - azithromycin 500mg IVPB daily - Robitussin q4 prn for cough - c/w nasal cannula - mildly elevated leukocytosis may be due to steroids; afebrile - f/u cbc and cmp in morning - CXR: possible infiltrate at the left lung base, pending official read from radiologist - Legionella urine antigen ordered - Procal level ordered - f/u blood cx and sputum cx results - Hx poorly controlled asthma and COPD Alcohol Withdrawal - [facility] protocol - Ativan 1mg IVP q4 prn - Multivitamin PO daily - Folic acid 1 mg PO daily - Thiamine 100mg PO daily - [facility] protocol - seizure and aspiration precautions - EtOH level 179 in ED Hx Polysubstance Abuse and Medication Non-compliance - Educated patient on smoking/substance abuse cessation - Utox +benzo, +cannabinoids DVT ppx: heparin sc GI ppx: ptx Diet: Regular diet Dispo: patient will be monitored on the floor. Case was discussed and reviewed with Attending Physician, Dr. Garces <Ingrid Garces - Last Filed: 05/17/18 06:47> Results - Vital Signs Recent Vital Signs: Last Vital Signs Temp 98 F 05/16/18 18:56 Pulse 89 05/17/18 04:53 Resp 20 05/16/18 22:04 BP 118/68 05/16/18 21:59 Pulse Ox 96 05/16/18 21:59 - Labs Result Diagrams: 05/17/18 06:00 05/16/18 17:54 Labs: Laboratory Results - last 24 hr 05/16/18 05/16/18 05/16/18 17:40 17:54 18:00 WBC 11.6 H D RBC 4.70 Hgb 15.2 Hct 45.9 MCV 97.7 MCH 32.3 MCHC 33.1 RDW 14.8 H Plt Count 376 MPV 9.8 Neut % (Auto) 53.8 Lymph % (Auto) 32.5 Clarke % (Auto) 11.1 H Eos % (Auto) 2.2 Baso % (Auto) 0.4 Lymph # (Auto) 3.8 H Clarke # (Auto) 1.3 H Eos # (Auto) 0.3 Baso # (Auto) 0.05 Absolute Neuts (auto) 6.22 pO2 81 H VBG pH 7.48 H VBG pCO2 42.0 VBG HCO3 31.3 H VBG Total CO2 32.6 H VBG O2 Sat (Calc) 98.4 H VBG Base Excess 7.0 H VBG Potassium 3.4 L Glucose 90 Lactate 1.7 FiO2 21.0 Sodium 140 141.0 Potassium 3.7 Chloride 105 105.0 Carbon Dioxide 28 Anion Gap 11 BUN 4 L Creatinine 0.6 L Est GFR ( Amer) > 60 Est GFR (Non-Af Amer) > 60 Random Glucose 90 Calcium 8.5 Total Bilirubin 0.4 AST 43 H D ALT 41 Alkaline Phosphatase 88 Lactate Dehydrogenase 528 Total Creatine Kinase 70 Troponin I < 0.01 NT-Pro-B Natriuret Pep 19.3 Total Protein 6.7 Albumin 3.5 Globulin 3.1 Albumin/Globulin Ratio 1.1 Venous Blood Potassium 3.4 L Urine Color Urine Appearance Urine pH Ur Specific Circle Urine Protein Urine Glucose (UA) Urine Ketones Urine Blood Urine Nitrate Urine Bilirubin Urine Urobilinogen Ur Leukocyte Esterase Urine Opiates Screen Urine Methadone Screen Ur Barbiturates Screen Ur Phencyclidine Scrn Ur Amphetamines Screen U Benzodiazepines Scrn U Oth Cocaine Metabols U Cannabinoids Screen Alcohol, Quantitative 05/16/18 05/16/18 05/16/18 19:01 21:20 21:20 WBC RBC Hgb Hct MCV MCH MCHC RDW Plt Count MPV Neut % (Auto) Lymph % (Auto) Clarke % (Auto) Eos % (Auto) Baso % (Auto) Lymph # (Auto) Clarke # (Auto) Eos # (Auto) Baso # (Auto) Absolute Neuts (auto) pO2 VBG pH VBG pCO2 VBG HCO3 VBG Total CO2 VBG O2 Sat (Calc) VBG Base Excess VBG Potassium Glucose Lactate FiO2 Sodium Potassium Chloride Carbon Dioxide Anion Gap BUN Creatinine Est GFR ( Amer) Est GFR (Non-Af Amer) Random Glucose Calcium Total Bilirubin AST ALT Alkaline Phosphatase Lactate Dehydrogenase Total Creatine Kinase Troponin I NT-Pro-B Natriuret Pep Total Protein Albumin Globulin Albumin/Globulin Ratio Venous Blood Potassium Urine Color Yellow Urine Appearance Clear Urine pH 7.[address] 1.010 Urine Protein Negative Urine Glucose (UA) Negative Urine Ketones Negative Urine Blood Negative Urine Nitrate Negative Urine Bilirubin Negative Urine Urobilinogen 2.0 H Ur Leukocyte Esterase Negative Urine Opiates Screen Negative Urine Methadone Screen Negative Ur Barbiturates Screen Negative Ur Phencyclidine Scrn Negative Ur Amphetamines Screen Negative U Benzodiazepines Scrn Positive H U Oth Cocaine Metabols Negative U Cannabinoids Screen Positive H Alcohol, Quantitative 179 H 05/17/18 06:00 WBC 8.7 D RBC 4.70 Hgb 14.8 Hct 46.1 MCV 98.1 MCH 31.5 MCHC 32.1 RDW 14.6 H Plt Count 412 MPV 10.0 Neut % (Auto) Lymph % (Auto) Clarke % (Auto) Eos % (Auto) Baso % (Auto) Lymph # (Auto) Clarke # (Auto) Eos # (Auto) Baso # (Auto) Absolute Neuts (auto) pO2 VBG pH VBG pCO2 VBG HCO3 VBG Total CO2 VBG O2 Sat (Calc) VBG Base Excess VBG Potassium Glucose Lactate FiO2 Sodium Potassium Chloride Carbon Dioxide Anion Gap BUN Creatinine Est GFR ( Amer) Est GFR (Non-Af Amer) Random Glucose Calcium Total Bilirubin AST ALT Alkaline Phosphatase Lactate Dehydrogenase Total Creatine Kinase Troponin I NT-Pro-B Natriuret Pep Total Protein Albumin Globulin Albumin/Globulin Ratio Venous Blood Potassium Urine Color Urine Appearance Urine pH Ur Specific Circle Urine Protein Urine Glucose (UA) Urine Ketones Urine Blood Urine Nitrate Urine Bilirubin Urine Urobilinogen Ur Leukocyte Esterase Urine Opiates Screen Urine Methadone Screen Ur Barbiturates Screen Ur Phencyclidine Scrn Ur Amphetamines Screen U Benzodiazepines Scrn U Oth Cocaine Metabols U Cannabinoids Screen Alcohol, Quantitative Attending/Attestation - Attestation I have personally seen and examined this patient.: Yes I have fully participated in the care of the patient.: Yes I have reviewed all pertinent clinical information: Yes Notes (Text): 05/17/18 06:46 Patient was seen when she was in . Medical record was reviewed. Agree with history ,physical examination, assessment and plan.
--- NOTE | 2018-05-17 00:21 | CP.PCM.PN ---
Subjective - Date & Time of Evaluation Date of Evaluation: 05/17/18 Time of Evaluation: 00:20 - Subjective Subjective: # 24 angiocath was inserted in right forearm. She is stable,asymptomatic. Objective - Vital Signs/Intake and Output Vital Signs (last 24 hours): Temp Pulse Resp BP Pulse Ox 98 F 80 20 118/68 96 05/16/18 18:56 05/16/18 21:59 05/16/18 22:04 05/16/18 21:59 05/16/18 21:59 - Medications Medications: Current Medications Albuterol/Ipratropium (Duoneb 3 Mg/0.5 Mg (3 Ml) Ud) 3 ml IH Q2H PRN PRN Reason: Shortness of Breath Albuterol/Ipratropium (Duoneb 3 Mg/0.5 Mg (3 Ml) Ud) 3 ml IH [id number] JACK Folic Acid (Folic Acid) 1 mg PO DAILY JACK Guaifenesin (Robitussin) 100 mg PO Q4H PRN PRN Reason: Cough Heparin Sodium (Porcine) (Heparin) 5,000 units SC Q8 JACK; Protocol Last Admin: 05/16/18 22:45 Dose: Not Given Azithromycin (Zithromax 500mg In Ns) 500 mg in 250 mls @ 167 mls/hr IVPB Q24H JACK; Protocol Stop: 05/19/18 21:01 Last Admin: 05/16/18 21:50 Dose: 167 mls/hr Lorazepam (Ativan) 1 mg IVP Q4H PRN; Protocol PRN Reason: Symptoms of alcohol withdrawl Methylprednisolone (Solu-Medrol) 40 mg IVP Q12 JACK Multivitamins/Minerals (Therapeutic-M Tab) 1 tab PO 0800 JACK Pantoprazole Sodium (Protonix Ec Tab) 40 mg PO 0600 JACK Thiamine HCl (Vitamin B1 Tab) 100 mg PO DAILY JACK - Labs Labs: 05/16/18 17:40 05/16/18 17:54
[2018-05-17] MEDS: Albuterol-Ipratrop 3 mg / 0.5 (3 ml) UD IH SCH ×4 (02:20→19:33)
[2018-05-17] MEDS: Pantoprazole 40 mg EC Tab PO SCH (05:43)
[2018-05-17 06:25] LABS: HEMOGLOBIN 14.8 g/dL (12.0-16.0); MEAN CELL VOLUME 98.1 fl (80.0-105.0); MEAN CORPUSCULAR HEMOGLOBIN 31.5 pg (25.0-35.0); MEAN CORPUSCULAR HGB CONC 32.1 g/dl (31.0-37.0); RBC 4.7 10^6/uL (3.5-6.1); RED CELL DISTRIBUTION WIDTH 14.6 % (11.5-14.5); WHITE BLOOD COUNT 8.7 10^3/uL (4.5-11.0)
[2018-05-17 07:24] LABS: ALB/GLOB RATIO 1.1 (1.1-1.8); ALBUMIN 3.5 g/dL (3.0-4.8); ALT/SGPT 38 U/L (7-56); AST/SGOT 27 U/L (14-36); BLOOD UREA NITROGEN 9 mg/dL (7-21); CALCIUM 8.6 mg/dL (8.4-10.5); GFR NON-AFRICAN AMERICAN > 60
--- NOTE | 2018-05-17 08:30 | RAD ---
Date of service: 05/16/2018 HISTORY: asthma COMPARISON: 05/06/2018 FINDINGS: LUNGS: No active pulmonary disease. PLEURA: No significant pleural effusion identified, no pneumothorax apparent. CARDIOVASCULAR: No aortic atherosclerotic calcification present. Normal cardiac size. No pulmonary vascular congestion. OSSEOUS STRUCTURES: No significant abnormalities. VISUALIZED UPPER ABDOMEN: Normal. OTHER FINDINGS: None. IMPRESSION: No active disease.
[2018-05-17] MEDS: MethylPREDNISolone 40 mg Vial IVP SCH ×2 (09:04→21:50)
[2018-05-17] MEDS: Multivitamin With Minerals Tab PO SCH (09:04)
[2018-05-17] MEDS: guaiFENesin 100 mg/5 ml Syrup UD PO PRN ×2 (10:09→17:38)
--- NOTE | 2018-05-17 11:29 | CARD ---
APPROVED REPORT Date of service: 05/16/2018 EKG Measurement Heart [id number] <Conclusion> Normal sinus rhythm
[2018-05-17] MEDS: Azithromycin 500MG/NS 250ml 500 MG/250 ML BAG IVPB SCH (21:49)
[2018-05-18] MEDS: Albuterol-Ipratrop 3 mg / 0.5 (3 ml) UD IH SCH ×4 (01:33→20:19)
[2018-05-18] MEDS: guaiFENesin 100 mg/5 ml Syrup UD PO PRN ×4 (01:51→22:38)
[2018-05-18] MEDS: Pantoprazole 40 mg EC Tab PO SCH (05:00)
[2018-05-18 06:19] LABS: HEMOGLOBIN 13.6 g/dL (12.0-16.0); MEAN CELL VOLUME 99.3 fl (80.0-105.0); MEAN CORPUSCULAR HEMOGLOBIN 31.4 pg (25.0-35.0); MEAN CORPUSCULAR HGB CONC 31.6 g/dl (31.0-37.0); MEAN PLATELET VOLUME 9.8 fl (7.0-11.0); RBC 4.33 10^6/uL (3.5-6.1); RED CELL DISTRIBUTION WIDTH 14.6 % (11.5-14.5); WHITE BLOOD COUNT 17.9 10^3/uL (4.5-11.0)
[2018-05-18 06:52] LABS: ALB/GLOB RATIO 1.1 (1.1-1.8); ALBUMIN 3.3 g/dL (3.0-4.8); ALT/SGPT 39 U/L (7-56); AST/SGOT 27 U/L (14-36); BLOOD UREA NITROGEN 17 mg/dL (7-21); CALCIUM 8.5 mg/dL (8.4-10.5); GFR NON-AFRICAN AMERICAN > 60
[2018-05-18] MEDS: MethylPREDNISolone 40 mg Vial IVP SCH ×2 (09:13→22:20)
[2018-05-18] MEDS: Multivitamin With Minerals Tab PO SCH (09:13)
[2018-05-18 09:27] LABS: BARBITURATES, UR NEGATIVE (NEGATIVE); BENZODIAZEPINES, UR POSITIVE (NEGATIVE); OPIATES, UR NEGATIVE (NEGATIVE); PHENCYCLIDINE, UR NEGATIVE (NEGATIVE)
--- NOTE | 2018-05-18 15:17 | CP.PCM.PN ---
<Pedro Santa - Last Filed: 05/18/18 16:15> Subjective - Date & Time of Evaluation Date of Evaluation: 05/18/18 Time of Evaluation: 07:15 - Subjective Subjective: Pedro Santa DO, PGY-1 Hospitalist Progress Note for Dr. Watson Patient was seen and examined at bedside this AM. She reports feeling anxious overnight and is still wheezing. She states she felt suicidal ideation last night but does not feel this way now. She states her cough has improved. Objective - Vital Signs/Intake and Output Vital Signs (last 24 hours): Temp Pulse Resp BP Pulse Ox 97.5 F L 94 H 19 142/97 H 97 05/18/18 07:58 05/18/18 10:00 05/18/18 07:58 05/18/18 07:58 05/18/18 10:00 Intake and Output: 05/18/18 05/18/18 06:59 18:59 Intake Total 0 Output Total 1750 Balance -1750 - Medications Medications: Current Medications Albuterol/Ipratropium (Duoneb 3 Mg/0.5 Mg (3 Ml) Ud) 3 ml IH Q2H PRN PRN Reason: Shortness of Breath Last Admin: 05/17/18 11:58 Dose: 3 ml Albuterol/Ipratropium (Duoneb 3 Mg/0.5 Mg (3 Ml) Ud) 3 ml IH [id number] [facility] Last Admin: 05/18/18 13:49 Dose: 3 ml Benzonatate (Tessalon Perles) 100 mg PO TID [facility] Last Admin: 05/18/18 14:58 Dose: 100 mg Folic Acid (Folic Acid) 1 mg PO DAILY [facility] Last Admin: 05/18/18 09:13 Dose: 1 mg Guaifenesin (Robitussin) 100 mg PO Q4H PRN PRN Reason: Cough Last Admin: 05/18/18 09:15 Dose: 100 mg Heparin Sodium (Porcine) (Heparin) 5,000 units SC Q8 [facility]; Protocol Last Admin: 05/18/18 14:57 Dose: 5,000 units Hydroxyzine Pamoate (Vistaril) 50 mg PO Q8 PRN; Protocol PRN Reason: Anxiety Last Admin: 05/18/18 11:58 Dose: 50 mg Azithromycin (Zithromax 500mg In Ns) 500 mg in 250 mls @ 167 mls/hr IVPB Q24H CRAIG; Protocol Stop: 05/19/18 21:01 Last Admin: 05/17/18 21:49 Dose: 167 mls/hr Lorazepam (Ativan) 1 mg IVP Q4H PRN; Protocol PRN Reason: Symptoms of alcohol withdrawl Last Admin: 05/18/18 15:01 Dose: 1 mg Lorazepam (Ativan) 2 mg IVP Q6H [facility]; Protocol Last Admin: 05/18/18 12:00 Dose: 2 mg Methylprednisolone (Solu-Medrol) 30 mg IVP Q12 [facility] Multivitamins/Minerals (Therapeutic-M Tab) 1 tab PO 0800 [facility] Last Admin: 05/18/18 09:13 Dose: 1 tab Nicotine (Nicoderm Cq) 1 patch TD DAILY [facility] Last Admin: 05/18/18 09:13 Dose: 1 patch Pantoprazole Sodium (Protonix Ec Tab) 40 mg PO 0600 [facility] Last Admin: 05/18/18 05:00 Dose: 40 mg Thiamine HCl (Vitamin B1 Tab) 100 mg PO DAILY [facility] Last Admin: 05/18/18 09:13 Dose: 100 mg Trazodone HCl (Desyrel) 50 mg PO HS [facility] - Labs Labs: 05/18/18 05:30 05/18/18 05:30 - Constitutional Appears: Non-toxic, No Acute Distress - Head Exam Head Exam: ATRAUMATIC, NORMOCEPHALIC - Eye Exam Eye Exam: EOMI, Normal appearance, PERRL - ENT Exam ENT Exam: Mucous Membranes Moist - Neck Exam Neck Exam: Full ROM, Normal Inspection - Respiratory Exam Respiratory Exam: Prolonged Expiratory Phase, Wheezes (end expiratory wheezes b/l). absent: Accessory Muscle Use, Rales, Rhonchi, Respiratory Distress, Stridor - Cardiovascular Exam Cardiovascular Exam: REGULAR RHYTHM, RRR, +S1, +S2. absent: Gallop, Rubs, Murmur - GI/Abdominal Exam GI & Abdominal Exam: Soft, Normal Bowel Sounds. absent: Tenderness - Extremities Exam Extremities Exam: Normal Inspection. absent: Pedal Edema - Back Exam Back Exam: NORMAL INSPECTION - Neurological Exam Neurological Exam: Alert, Awake, Oriented x3 - Psychiatric Exam Psychiatric exam: Anxious. absent: Homicidal Ideation, Suicidal Ideation - Skin Skin Exam: Dry, Intact, Warm Assessment and Plan - Assessment and Plan (Free Text) Assessment: 47 yo F with PMH of asthma, polysubstance abuse, Hepatitis C, Cirrhosis presents with acute asthma exacerbation. Plan: Asthma Exacerbation Wean solumedrol to 30 mg IVP q12h Continue duo-neb q2h PRN and q6h scheduled Continue tessalon pearls, robitussin PRN for cough Continue zithromax Prior Suicidal Ideation Patient denies SI or HI this AM Psych evaluated patient, recommended d/c 1 to 1 observation Hx EtOH Abuse Continue CIWA protocol Continue ativan 2 mg IVP q6h scheduled and 1 mg IVP q2h PRN DVT/GI PPX: SC heparin/protonix Full Code HHD Monitor on med/surg Patient seen, examined, and plan discussed with my attending Dr. Walter Santa, D.O. IM Resident PGY-1 Pager: [phone] <Karolina Watson - Last Filed: 05/18/18 18:22> Objective - Vital Signs/Intake and Output Vital Signs (last 24 hours): Temp Pulse Resp BP Pulse Ox 98 F 98 H 20 140/95 H 98 05/18/18 16:40 05/18/18 16:40 05/18/18 16:40 05/18/18 16:40 05/18/18 16:40 Intake and Output: 05/18/18 05/18/18 06:59 18:59 Intake Total 0 Output Total 1750 Balance -1750 - Medications Medications: Current Medications Albuterol/Ipratropium (Duoneb 3 Mg/0.5 Mg (3 Ml) Ud) 3 ml IH Q2H PRN PRN Reason: Shortness of Breath Last Admin: 05/17/18 11:58 Dose: 3 ml Albuterol/Ipratropium (Duoneb 3 Mg/0.5 Mg (3 Ml) Ud) 3 ml IH [id number] [facility] Last Admin: 05/18/18 13:49 Dose: 3 ml Benzonatate (Tessalon Perles) 100 mg PO TID [facility] Last Admin: 05/18/18 17:17 Dose: 100 mg Folic Acid (Folic Acid) 1 mg PO DAILY [facility] Last Admin: 05/18/18 09:13 Dose: 1 mg Guaifenesin (Robitussin) 100 mg PO Q4H PRN PRN Reason: Cough Last Admin: 05/18/18 17:16 Dose: 100 mg Heparin Sodium (Porcine) (Heparin) 5,000 units SC Q8 [facility]; Protocol Last Admin: 05/18/18 14:57 Dose: 5,000 units Hydroxyzine Pamoate (Vistaril) 50 mg PO Q8 PRN; Protocol PRN Reason: Anxiety Last Admin: 05/18/18 11:58 Dose: 50 mg Azithromycin (Zithromax 500mg In Ns) 500 mg in 250 mls @ 167 mls/hr IVPB Q24H [facility]; Protocol Stop: 05/19/18 21:01 Last Admin: 05/17/18 21:49 Dose: 167 mls/hr Lorazepam (Ativan) 1 mg IVP Q4H PRN; Protocol PRN Reason: Symptoms of alcohol withdrawl Last Admin: 05/18/18 15:01 Dose: 1 mg Lorazepam (Ativan) 2 mg IVP Q6H [facility]; Protocol Last Admin: 05/18/18 17:17 Dose: 2 mg Methylprednisolone (Solu-Medrol) 30 mg IVP Q12 [facility] Multivitamins/Minerals (Therapeutic-M Tab) 1 tab PO 0800 [facility] Last Admin: 05/18/18 09:13 Dose: 1 tab Nicotine (Nicoderm Cq) 1 patch TD DAILY [facility] Last Admin: 05/18/18 09:13 Dose: 1 patch Pantoprazole Sodium (Protonix Ec Tab) 40 mg PO 0600 [facility] Last Admin: 05/18/18 05:00 Dose: 40 mg Thiamine HCl (Vitamin B1 Tab) 100 mg PO DAILY [facility] Last Admin: 05/18/18 09:13 Dose: 100 mg Trazodone HCl (Desyrel) 50 mg PO HS [facility] - Labs Labs: 05/18/18 05:30 05/18/18 05:30 Attending/Attestation - Attestation I have personally seen and examined this patient.: Yes I have fully participated in the care of the patient.: Yes I have reviewed all pertinent clinical information, including history, physical exam and plan: Yes Notes (Text): 05/18/18 18:18 47 year old female with past medical history of COPD and alcohol/polysubstance abuse who is admitted for COPD exacerbation and alcohol intoxication. Continue with iv steroids, duonebs, zithromax and robitussin. Will begin to taper steroids. Leukocytosis likely secondary to steroids; will continue to monitor. Continue with ativan craig/prn for alcohol withdrawal symptoms. Continue with multivitamin, folic acid and thiamine. Counselled on alcohol cessation. Yesterday she complained of agitation and suicidal thoughts which she denies today. She was placed on 1:1 and seen by psychiatrist. Will follow up on recommendations. Karolina Watson MD Hospitalist.
[2018-05-18] MEDS: Azithromycin 500MG/NS 250ml 500 MG/250 ML BAG IVPB SCH (21:30)
--- NOTE | 2018-05-18 23:46 | CON ---
DATE: 05/18/2018 HISTORY OF PRESENT ILLNESS: The patient is a 47-year-old female with history of asthma, alcohol use disorder, polysubstance abuse and dependence. The patient was admitted on the medical site for evaluation of worsening of asthma and possible COPD exacerbation. Psych consult was called because the patient was verbalizing thoughts of harming herself due to medical condition. The patient was seen and examined today. The patient presented to be alert, somewhat better to compare with description from the medical staff. The patient remembered this tag writer from the previous consultation services which took place here in [place]. This tag writer was involved in the patient care in 12/2016. This tag writer also remembered this patient from consultation services back then. The patient was provided information about outpatient services, and [facility] dual-diagnosis program was recommended. Going back to the patient's current presentation, the patient reported that she was using drugs. Urine drug screen was positive for benzodiazepines. The patient reported that she was feeling depressed because of medical condition. The patient reported that she was saying something out of frustration and the patient adamantly denied any thoughts of harming herself or others. The patient reported that right now she wants to stay sober and she does not want to use drugs any longer. The patient was provided with information about outpatient resources including [facility] dual-diagnosis program and [facility] as well as local providers. Meanwhile, this tag writer offered the patient Vistaril as well as trazodone at nighttime which the patient tolerated very well last admission. The patient denied psychotic symptoms, denied any thoughts of harming herself or others. VITAL SIGNS: Seem to be stable. Temperature 97.5, pulse 94, blood pressure 142/97, respirations 19, oxygen saturation 97%. MEDICATIONS: Reviewed. DuoNeb, Zithromax, benzonatate, folic acid, Robitussin, heparin, Vistaril 50 mg every 8 hours as needed for anxiety. The patient is on Ativan for possible benzodiazepine withdrawal. Multivitamin, Nicoderm, Protonix. Trazodone 50 mg was started. LABORATORY DATA: Reviewed. White blood cell 7.9 today. Chemistry reviewed. Urinalysis reviewed. Toxicology was positive for benzodiazepines, cannabis and alcohol. Serology reviewed. MENTAL STATUS EXAMINATION: The patient presented to be alert, obviously has shortness of breath. Fair eye contact. Mood described as "feeling little better." Thought process concrete. Thought content, the patient denied visual, auditory or tactile hallucinations. Denied paranoid ideation. The patient denied thoughts of harming herself or others. Denied intent or plan. Insight and judgment seems to be improving. Impulses are well controlled. IMPRESSION: Rule out substance-induced mood disorder, rule out mood disorder due to general medical condition, rule out anxiety disorder due to general medical condition. PLAN: Vistaril 50 mg every 8 hours as needed for anxiety. Trazodone was started for depression and insomnia. The patient was strongly recommended to go to dual-diagnosis program, information was provided to the patient. Over the weekend, Dr. Solano will follow up on this patient. One-to-one discontinued because the patient was contracted for safety. Should you have any questions, give me a call back. Thank you very much for letting me participate in care of your patient. Glendy Watson MD
[2018-05-19] MEDS: Albuterol-Ipratrop 3 mg / 0.5 (3 ml) UD IH SCH ×4 (01:36→19:54)
[2018-05-19] MEDS: guaiFENesin 100 mg/5 ml Syrup UD PO PRN (02:55)
--- NOTE | 2018-05-19 06:15 | CP.PCM.PN ---
Subjective - Date & Time of Evaluation Date of Evaluation: 05/19/18 Time of Evaluation: 06:14 - Subjective Subjective: # 24 angiocath was inserted in left index finger base. Patient asymptomatic, stable. Objective - Vital Signs/Intake and Output Vital Signs (last 24 hours): Temp Pulse Resp BP Pulse Ox 98 F 94 H 20 140/95 H 98 05/18/18 16:40 05/19/18 02:00 05/18/18 20:20 05/18/18 16:40 05/18/18 20:20 Intake and Output: 05/18/18 05/19/18 18:59 06:59 Intake Total 1320 Output Total 400 Balance 920 - Medications Medications: Current Medications Albuterol/Ipratropium (Duoneb 3 Mg/0.5 Mg (3 Ml) Ud) 3 ml IH Q2H PRN PRN Reason: Shortness of Breath Last Admin: 05/17/18 11:58 Dose: 3 ml Albuterol/Ipratropium (Duoneb 3 Mg/0.5 Mg (3 Ml) Ud) 3 ml IH [id number] [facility] Last Admin: 05/19/18 01:36 Dose: 3 ml Benzonatate (Tessalon Perles) 100 mg PO TID [facility] Last Admin: 05/18/18 17:17 Dose: 100 mg Folic Acid (Folic Acid) 1 mg PO DAILY [facility] Last Admin: 05/18/18 09:13 Dose: 1 mg Guaifenesin (Robitussin) 100 mg PO Q4H PRN PRN Reason: Cough Last Admin: 05/19/18 02:55 Dose: 100 mg Heparin Sodium (Porcine) (Heparin) 5,000 units SC Q8 [facility]; Protocol Last Admin: 05/18/18 22:20 Dose: 5,000 units Hydroxyzine Pamoate (Vistaril) 50 mg PO Q8 PRN; Protocol PRN Reason: Anxiety Last Admin: 05/18/18 11:58 Dose: 50 mg Azithromycin (Zithromax 500mg In Ns) 500 mg in 250 mls @ 167 mls/hr IVPB Q24H [facility]; Protocol Stop: 05/19/18 21:01 Last Admin: 05/18/18 21:30 Dose: 167 mls/hr Lorazepam (Ativan) 1 mg IVP Q4H PRN; Protocol PRN Reason: Symptoms of alcohol withdrawl Last Admin: 05/19/18 01:56 Dose: 1 mg Lorazepam (Ativan) 2 mg IVP Q6H [facility]ACK; Protocol Last Admin: 05/18/18 22:27 Dose: 2 mg Methylprednisolone (Solu-Medrol) 30 mg IVP Q12 [facility] Last Admin: 05/18/18 22:20 Dose: 30 mg Multivitamins/Minerals (Therapeutic-M Tab) 1 tab PO 0800 [facility] Last Admin: 05/18/18 09:13 Dose: 1 tab Nicotine (Nicoderm Cq) 1 patch TD DAILY [facility] Last Admin: 05/18/18 09:13 Dose: 1 patch Pantoprazole Sodium (Protonix Ec Tab) 40 mg PO 0600 [facility] Last Admin: 05/18/18 05:00 Dose: 40 mg Thiamine HCl (Vitamin B1 Tab) 100 mg PO DAILY [facility] Last Admin: 05/18/18 09:13 Dose: 100 mg Trazodone HCl (Desyrel) 50 mg PO HS [facility] Last Admin: 05/18/18 22:19 Dose: 50 mg - Labs Labs: 05/18/18 05:30 05/18/18 05:30
[2018-05-19] MEDS: Pantoprazole 40 mg EC Tab PO SCH (06:30)
--- NOTE | 2018-05-19 07:49 | CP.PCM.PN ---
<Pedro Santa - Last Filed: 05/19/18 14:41> Subjective - Date & Time of Evaluation Date of Evaluation: 05/19/18 Time of Evaluation: 07:48 - Subjective Subjective: Pedro Santa DO, PGY-1 Hospitalist Progress Note for Dr. Watson Patient was seen and examined at bedside this AM. She reports she had a rough night last night and that her cough is not improved from yesterday. Last CIWA score was 1. Patient states she had SOB last night, however sales negotiator states she denied SOB throughout the night. Objective - Vital Signs/Intake and Output Vital Signs (last 24 hours): Temp Pulse Resp BP Pulse Ox 98 F 94 H 20 140/95 H 98 05/18/18 16:40 05/19/18 02:00 05/18/18 20:20 05/18/18 16:40 05/18/18 20:20 Intake and Output: 05/19/18 05/19/18 06:59 18:59 Intake Total 1800 Output Total 400 Balance 1400 - Medications Medications: Current Medications Albuterol/Ipratropium (Duoneb 3 Mg/0.5 Mg (3 Ml) Ud) 3 ml IH Q2H PRN PRN Reason: Shortness of Breath Last Admin: 05/17/18 11:58 Dose: 3 ml Albuterol/Ipratropium (Duoneb 3 Mg/0.5 Mg (3 Ml) Ud) 3 ml IH [id number] [facility] Last Admin: 05/19/18 01:36 Dose: 3 ml Benzonatate (Tessalon Perles) 100 mg PO TID [facility] Last Admin: 05/18/18 17:17 Dose: 100 mg Folic Acid (Folic Acid) 1 mg PO DAILY [facility] Last Admin: 05/18/18 09:13 Dose: 1 mg Guaifenesin (Robitussin) 100 mg PO Q4H PRN PRN Reason: Cough Last Admin: 05/19/18 02:55 Dose: 100 mg Heparin Sodium (Porcine) (Heparin) 5,000 units SC Q8 [facility]; Protocol Last Admin: 05/19/18 06:30 Dose: 5,000 units Hydroxyzine Pamoate (Vistaril) 50 mg PO Q8 PRN; Protocol PRN Reason: Anxiety Last Admin: 05/18/18 11:58 Dose: 50 mg Azithromycin (Zithromax 500mg In Ns) 500 mg in 250 mls @ 167 mls/hr IVPB Q24H [facility]; Protocol Stop: 05/19/18 21:01 Last Admin: 05/18/18 21:30 Dose: 167 mls/hr Lorazepam (Ativan) 1 mg IVP Q4H PRN; Protocol PRN Reason: Symptoms of alcohol withdrawl Last Admin: 05/19/18 01:56 Dose: 1 mg Lorazepam (Ativan) 2 mg IVP Q6H [facility]; Protocol Last Admin: 05/19/18 05:30 Dose: 2 mg Methylprednisolone (Solu-Medrol) 30 mg IVP Q12 [facility] Last Admin: 05/18/18 22:20 Dose: 30 mg Multivitamins/Minerals (Therapeutic-M Tab) 1 tab PO 0800 [facility] Last Admin: 05/18/18 09:13 Dose: 1 tab Nicotine (Nicoderm Cq) 1 patch TD DAILY [facility] Last Admin: 05/18/18 09:13 Dose: 1 patch Pantoprazole Sodium (Protonix Ec Tab) 40 mg PO 0600 [facility] Last Admin: 05/19/18 06:30 Dose: 40 mg Thiamine HCl (Vitamin B1 Tab) 100 mg PO DAILY [facility] Last Admin: 05/18/18 09:13 Dose: 100 mg Trazodone HCl (Desyrel) 50 mg PO HS [facility] Last Admin: 05/18/18 22:19 Dose: 50 mg - Labs Labs: 05/18/18 05:30 05/18/18 05:30 - Constitutional Appears: Non-toxic, No Acute Distress - Head Exam Head Exam: ATRAUMATIC, NORMOCEPHALIC - Eye Exam Eye Exam: EOMI, Normal appearance, PERRL - ENT Exam ENT Exam: Mucous Membranes Moist - Neck Exam Neck Exam: Full ROM, Normal Inspection - Respiratory Exam Respiratory Exam: Clear to Ausculation Bilateral. absent: Accessory Muscle Use, Chest Wall Tenderness, Rales, Rhonchi, Wheezes, Respiratory Distress - Cardiovascular Exam Cardiovascular Exam: REGULAR RHYTHM, RRR, +S1, +S2. absent: Gallop, Rubs, Murmur - GI/Abdominal Exam GI & Abdominal Exam: Soft, Normal Bowel Sounds. absent: Tenderness - Extremities Exam Extremities Exam: Normal Inspection. absent: Pedal Edema - Back Exam Back Exam: NORMAL INSPECTION - Neurological Exam Neurological Exam: Alert, Awake, Oriented x3 - Psychiatric Exam Psychiatric exam: Normal Affect, Normal Mood - Skin Skin Exam: Dry, Intact, Warm Assessment and Plan - Assessment and Plan (Free Text) Assessment: 47 yo F with PMH of COPD, polysubstance abuse, Hepatitis C, Cirrhosis presents with acute COPD exacerbation. Plan: COPD Exacerbation Wean solumedrol further to 20 mg IVP q12h Continue duo-neb q2h PRN and q6h scheduled Continue tessalon pearls, robitussin PRN for cough Continue zithromax Prior Suicidal Ideation Patient denied SI or HI again this AM Re-consult psych as needed Hx EtOH Abuse Continue CIWA protocol Wean ativan to 0.5 mg q6h craig and q2h PRN DVT/GI PPX: SC heparin/protonix Full Code HHD Monitor on med/surg Patient seen, examined, and plan discussed with my attending Marycruz McclureO. IM Resident PGY-1 Pager: [phone] <Karolina Watson - Last Filed: 05/19/18 16:13> Objective - Vital Signs/Intake and Output Vital Signs (last 24 hours): Temp Pulse Resp BP Pulse Ox 98 F 101 H 20 140/95 H 98 05/18/18 16:40 05/19/18 10:00 05/18/18 20:20 05/18/18 16:40 05/18/18 20:20 Intake and Output: 05/19/18 05/19/18 06:59 18:59 Intake Total 1800 Output Total 400 Balance 1400 - Medications Medications: Current Medications Albuterol/Ipratropium (Duoneb 3 Mg/0.5 Mg (3 Ml) Ud) 3 ml IH Q2H PRN PRN Reason: Shortness of Breath Last Admin: 05/17/18 11:58 Dose: 3 ml Albuterol/Ipratropium (Duoneb 3 Mg/0.5 Mg (3 Ml) Ud) 3 ml IH [id number] [facility] Last Admin: 05/19/18 14:30 Dose: 3 ml Benzonatate (Tessalon Perles) 100 mg PO TID [facility] Last Admin: 05/19/18 14:25 Dose: 100 mg Folic Acid (Folic Acid) 1 mg PO DAILY [facility] Last Admin: 05/19/18 10:59 Dose: 1 mg Guaifenesin (Robitussin) 100 mg PO Q4H PRN PRN Reason: Cough Last Admin: 05/19/18 02:55 Dose: 100 mg Heparin Sodium (Porcine) (Heparin) 5,000 units SC Q8 [facility]; Protocol Last Admin: 05/19/18 14:24 Dose: 5,000 units Hydroxyzine Pamoate (Vistaril) 50 mg PO Q8 PRN; Protocol PRN Reason: Anxiety Last Admin: 05/18/18 11:58 Dose: 50 mg Azithromycin (Zithromax 500mg In Ns) 500 mg in 250 mls @ 167 mls/hr IVPB Q24H [facility]; Protocol Stop: 05/19/18 21:01 Last Admin: 05/18/18 21:30 Dose: 167 mls/hr Lorazepam (Ativan) 0.5 mg IVP Q6H [facility]; Protocol Lorazepam (Ativan) 0.5 mg IVP Q4H PRN; Protocol PRN Reason: Symptoms of alcohol withdrawl Methylprednisolone (Solu-Medrol) 20 mg IVP Q12 [facility] Multivitamins/Minerals (Therapeutic-M Tab) 1 tab PO 0800 [facility] Last Admin: 05/19/18 11:00 Dose: 1 tab Nicotine (Nicoderm Cq) 1 patch TD DAILY [facility] Last Admin: 05/19/18 11:00 Dose: 1 patch Pantoprazole Sodium (Protonix Ec Tab) 40 mg PO 0600 [facility] Last Admin: 05/19/18 06:30 Dose: 40 mg Thiamine HCl (Vitamin B1 Tab) 100 mg PO DAILY [facility] Last Admin: 05/19/18 11:00 Dose: 100 mg Trazodone HCl (Desyrel) 75 mg PO HS [facility] - Labs Labs: 05/19/18 07:51 05/19/18 07:51 Attending/Attestation - Attestation I have personally seen and examined this patient.: Yes I have fully participated in the care of the patient.: Yes I have reviewed all pertinent clinical information, including history, physical exam and plan: Yes Notes (Text): 05/19/18 16:02 47 year old female with past medical history of COPD and alcohol/polysubstance abuse who is admitted for COPD exacerbation and alcohol intoxication. Continue with iv steroids, duonebs, zithromax and robitussin. Continue with iv steroids taper. Leukocytosis likely secondary to steroids; will continue to monitor. Continue with tapering ativan craig/prn for alcohol withdrawal symptoms. Continue with multivitamin, folic acid and thiamine. Counselled on alcohol cessation. Karolina Watson MD Hospitalist.
[2018-05-19 08:04] LABS: HEMOGLOBIN 13.6 g/dL (12.0-16.0); MEAN CELL VOLUME 98.8 fl (80.0-105.0); MEAN CORPUSCULAR HEMOGLOBIN 31.6 pg (25.0-35.0); MEAN PLATELET VOLUME 9.8 fl (7.0-11.0); RBC 4.3 10^6/uL (3.5-6.1); RED CELL DISTRIBUTION WIDTH 14.9 % (11.5-14.5); WHITE BLOOD COUNT 15.7 10^3/uL (4.5-11.0)
[2018-05-19 08:40] LABS: ALB/GLOB RATIO 1.1 (1.1-1.8); ALBUMIN 3.2 g/dL (3.0-4.8); ALT/SGPT 34 U/L (7-56); AST/SGOT 23 U/L (14-36); BLOOD UREA NITROGEN 13 mg/dL (7-21); CALCIUM 8.5 mg/dL (8.4-10.5); GFR NON-AFRICAN AMERICAN > 60
[2018-05-19] MEDS: MethylPREDNISolone 40 mg Vial IVP SCH ×2 (10:59→21:21)
[2018-05-19] MEDS: Multivitamin With Minerals Tab PO SCH (11:00)
[2018-05-19] MEDS: Azithromycin 500MG/NS 250ml 500 MG/250 ML BAG IVPB SCH (20:30)
[2018-05-20] MEDS: Albuterol-Ipratrop 3 mg / 0.5 (3 ml) UD IH SCH ×3 (01:55→14:15)
[2018-05-20] MEDS: Pantoprazole 40 mg EC Tab PO SCH (05:21)
[2018-05-20 06:57] VITALS: BP 156/96; RESP 21; TEMP 97.9; O2SAT 95
[2018-05-20] MEDS: Multivitamin With Minerals Tab PO SCH (08:44)
[2018-05-20] MEDS: guaiFENesin 100 mg/5 ml Syrup UD PO PRN ×2 (10:07→14:45)
[2018-05-20] MEDS: MethylPREDNISolone 40 mg Vial IVP SCH (10:07)
[2018-05-20 14:07] VITALS: PULSE 110
--- NOTE | 2018-05-20 17:20 | CP.PCM.DIS ---
<Pedro Santa - Last Filed: 05/20/18 17:21> Provider - Provider Date of Admission: 05/17/18 11:52 Attending physician: Karolina Watson MD Consults: 05/17/18 16:35 Psychiatry Consult Stat Comment: Consulting Provider: Carol Solano Consulting Physician: Carol Solano Reason for Consult: SI Time Spent in preparation of Discharge (in minutes): 35 Diagnosis - Discharge Diagnosis (1) COPD exacerbation Status: Resolved Hospital Course - Lab Results Lab Results: Micro Results 05/16/18 17:54 Blood Blood Culture - Preliminary NO GROWTH AFTER 3 DAYS 05/16/18 17:24 Blood Blood Culture - Preliminary NO GROWTH AFTER 3 DAYS Most Recent Lab Values WBC 15.7 10^3/uL (4.5-11.0) H 05/19/18 07:51 RBC 4.30 10^6/uL (3.5-6.1) 05/19/18 07:51 Hgb 13.6 g/dL (12.0-16.0) 05/19/18 07:51 Hct 42.5 % (36.0-48.0) 05/19/18 07:51 MCV 98.8 fl (80.0-105.0) 05/19/18 07:51 MCH 31.6 pg (25.0-35.0) 05/19/18 07:51 MCHC 32.0 g/dl (31.0-37.0) 05/19/18 07:51 RDW 14.9 % (11.5-14.5) H 05/19/18 07:51 Plt Count 347 10^3/uL (120.0-450.0) 05/19/18 07:51 MPV 9.8 fl (7.0-11.0) 05/19/18 07:51 Neut % (Auto) 53.8 % (50.0-68.0) 05/16/18 17:40 Lymph % (Auto) 32.5 % (22.0-35.0) 05/16/18 17:40 [place] % (Auto) 11.1 % (1.0-6.0) H 05/16/18 17:40 Eos % (Auto) 2.2 % (1.5-5.0) 05/16/18 17:40 Baso % (Auto) 0.4 % (0.0-3.0) 05/16/18 17:40 Lymph # (Auto) 3.8 (1.2-3.4) H 05/16/18 17:40 [place] # (Auto) 1.3 (0.1-0.6) H 05/16/18 17:40 Eos # (Auto) 0.3 (0.0-0.7) 05/16/18 17:40 Baso # (Auto) 0.05 K/mm3 (0.0-2.0) 05/16/18 17:40 Absolute Neuts (auto) 6.22 (1.4-6.5) 05/16/18 17:40 pO2 81 mm/Hg (30-55) H 05/16/18 18:00 VBG pH 7.48 (7.32-7.43) H 05/16/18 18:00 VBG pCO2 42.0 (40-60) 05/16/18 18:00 VBG HCO3 31.3 mmol/l (21-28) H 05/16/18 18:00 VBG Total CO2 32.6 mmol.L (22-28) H 05/16/18 18:00 VBG O2 Sat (Calc) 98.4 % (40-65) H 05/16/18 18:00 VBG Base Excess 7.0 mmol/L (0.0-2.0) H 05/16/18 18:00 VBG Potassium 3.4 mmol/L (3.6-5.2) L 05/16/18 18:00 Sodium 141.0 mmol/L (132-148) 05/16/18 18:00 Chloride 105.0 mmol/L (98-107) 05/16/18 18:00 Glucose 90 mg/dl (65-105) 05/16/18 18:00 Lactate 1.7 mmol/L (0.7-2.1) 05/16/18 18:00 FiO2 21.0 % 05/16/18 18:00 Sodium 137 mmol/L (132-148) 05/19/18 07:51 Potassium 4.4 mmol/L (3.6-5.0) 05/19/18 07:51 Chloride 103 mmol/L (98-107) 05/19/18 07:51 Carbon Dioxide 34 mmol/L (21-33) H 05/19/18 07:51 Anion Gap 5 (10-20) L 05/19/18 07:51 BUN 13 mg/dL (7-21) 05/19/18 07:51 Creatinine 0.6 mg/dl (0.7-1.2) L 05/19/18 07:51 Est GFR ( Amer) > 60 05/19/18 07:51 Est GFR (Non-Af Amer) > 60 05/19/18 07:51 Random Glucose 133 mg/dL (70-110) H 05/19/18 07:51 Calcium 8.5 mg/dL (8.4-10.5) 05/19/18 07:51 Phosphorus 3.0 mg/dL (2.5-4.5) 05/17/18 06:00 Magnesium 2.1 mg/dL (1.7-2.2) 05/17/18 06:00 Total Bilirubin 0.4 mg/dL (0.2-1.3) 05/19/18 07:51 AST 23 U/L (14-36) 05/19/18 07:51 ALT 34 U/L (7-56) 05/19/18 07:51 Alkaline Phosphatase 68 U/L (38-126) 05/19/18 07:51 Lactate Dehydrogenase 528 U/L (333-699) 05/16/18 17:54 Total Creatine Kinase 70 U/L (35-230) 05/16/18 17:54 Troponin I < 0.01 ng/mL 05/16/18 17:54 NT-Pro-B Natriuret Pep 19.3 pg/mL (0-450) 05/16/18 17:54 Total Protein 6.1 g/dL (5.8-8.3) 05/19/18 07:51 Albumin 3.2 g/dL (3.0-4.8) 05/19/18 07:51 Globulin 2.9 gm/dL 05/19/18 07:51 Albumin/Globulin Ratio 1.1 (1.1-1.8) 05/19/18 07:51 Procalcitonin < 0.05 NG/ML (0.19-0.49) L 05/17/18 06:00 Venous Blood Potassium 3.4 mmol/L (3.6-5.2) L 05/16/18 18:00 Urine Color Yellow (YELLOW) 05/16/18 19:01 Urine Appearance Clear (CLEAR) 05/16/18 19:01 Urine pH 7.0 (4.7-8.0) 05/16/18 19:01 Ur Specific [place] 1.010 (1.005-1.035) 05/16/18 19:01 Urine Protein Negative mg/dL (<30 mg/dL) 05/16/18 19:01 Urine Glucose (UA) Negative mg/dL (NEGATIVE) 05/16/18 19:01 Urine Ketones Negative mg/dL (NEGATIVE) 05/16/18 19:01 Urine Blood Negative (NEGATIVE) 05/16/18 19:01 Urine Nitrate Negative (NEGATIVE) 05/16/18 19:01 Urine Bilirubin Negative (NEGATIVE) 05/16/18 19:01 Urine Urobilinogen 2.0 E.U./dL (<1 E.U./dL) H 05/16/18 19:01 Ur Leukocyte Esterase Negative Erik/uL (NEGATIVE) 05/16/18 19:01 Urine Opiates Screen Negative (NEGATIVE) 05/18/18 08:50 Urine Methadone Screen Negative (NEGATIVE) 05/18/18 08:50 Ur Barbiturates Screen Negative (NEGATIVE) 05/18/18 08:50 Ur Phencyclidine Scrn Negative (NEGATIVE) 05/18/18 08:50 Ur Amphetamines Screen Negative (NEGATIVE) 05/18/18 08:50 U Benzodiazepines Scrn Positive (NEGATIVE) H 05/18/18 08:50 U Oth Cocaine Metabols Negative (NEGATIVE) 05/18/18 08:50 U Cannabinoids Screen Negative (NEGATIVE) 05/18/18 08:50 Alcohol, Quantitative 179 mg/dL (0-10) H 05/16/18 21:20 Ur L.pneumophila Ag Negative (NEGATIVE) 05/16/18 21:40 Ur Strep pneumoniae Ag Not detected (Not Detected) 05/16/18 21:20 - Hospital Course Hospital Course: Pedro Santa DO, PGY-1 Hospitalist Discharge Summary for Dr. Walter Mohr is a 47 year old female with PMH of COPD, polysubstance abuse, Hepatitis C, Cirrhosis who presented to ED with worsening cough and SOB. She was subsequently admitted and treated for COPD exacerbation. She has been admitted many times in the past for similar exacerbations. She has a history of difficulty obtaining her medications as she is currently homeless. She was treated with scheduled and PRN duo-neb treatments, solumedrol starting at 40 mg q12 then tapered to 20 mg q12, and zithromax. Throughout her stay she continued to improve but continued to complain of cough. On examination this AM, her wheezing has resolved. She is discharged with a medrol dose pack with tapering instructions, a refill of her albuterol inhaler, and robutissin PRN for cough. She is agreeable to discharge plan today. All questions were answered. Patient seen, examined, and discharge plan discussed with my attending Dr. Walter Santa D.O. IM Resident PGY-1 Discharge Exam - Head Exam Head Exam: ATRAUMATIC, NORMOCEPHALIC - Eye Exam Eye Exam: EOMI, Normal appearance, PERRL - ENT Exam ENT Exam: Mucous Membranes Moist - Neck Exam Neck exam: Full Rom, Normal Inspection - Respiratory Exam Respiratory Exam: Clear to PA & Lateral, UNREMARKABLE. absent: Accessory Muscle Use, Decreased Breath Sounds, Rales, Rhonchi, Wheezes, Respiratory Distress - Cardiovascular Exam Cardiovascular Exam: REGULAR RHYTHM, RRR, +S1, +S2. absent: Diastolic murmur, Gallop, Rubs, Systolic Murmur - GI/Abdominal Exam GI & Abdominal Exam: Normal Bowel Sounds, Soft, Unremarkable. absent: Tenderness - Extremities Exam Extremities exam: full ROM, normal inspection - Back Exam Back exam: NORMAL INSPECTION - Neurological Exam Neurological exam: Alert, Oriented x3 - Psychiatric Exam Psychiatric exam: Normal Affect, Normal Mood - Skin Skin Exam: Dry, Intact, Warm Discharge Plan - Discharge Medications Prescriptions: Albuterol HFA [Ventolin HFA 90 mcg/actuation (8 g)] 2 puff IH Q4H PRN #1 inh PRN Reason: Wheezing guaiFENesin [Robitussin] 100 mg PO Q4H PRN #1 udc PRN Reason: Cough Methylprednisolone [Medrol Dose Pack (21 tabs)] 4 mg PO DAILY #21 mg - Follow Up Plan Condition: FAIR Disposition: HOME/ ROUTINE Instructions: Chronic Obstructive Pulmonary Disease (COPD), Including Emphysema, COPD Including Emphysema (DC), Exacerbation of COPD, Exacerbation of COPD (DC), Alcohol Abuse and Alcoholism (DC), Effects of Alcohol on Your Health Additional Instructions: Please follow up with your primary medical doctor within 1 week of discharge. Please take the medrol dose pack as prescribed. Please continue to use your inhaler as needed. We have also given you a medicine to help with your cough. If your symptoms worsen, please return to nearest ED. <Karolina Watson - Last Filed: 05/20/18 18:04> Provider - Provider Date of Admission: 05/17/18 11:52 Attending physician: Karolina Watson MD Consults: 05/17/18 16:35 Psychiatry Consult Stat Comment: Consulting Provider: Carol Solano Consulting Physician: Carol Solano Reason for Consult: SI Hospital Course - Lab Results Lab Results: Micro Results 05/16/18 17:54 Blood Blood Culture - Preliminary NO GROWTH AFTER 3 DAYS 05/16/18 17:24 Blood Blood Culture - Preliminary NO GROWTH AFTER 3 DAYS Most Recent Lab Values WBC 15.7 10^3/uL (4.5-11.0) H 05/19/18 07:51 RBC 4.30 10^6/uL (3.5-6.1) 05/19/18 07:51 Hgb 13.6 g/dL (12.0-16.0) 05/19/18 07:51 Hct 42.5 % (36.0-48.0) 05/19/18 07:51 MCV 98.8 fl (80.0-105.0) 05/19/18 07:51 MCH 31.6 pg (25.0-35.0) 05/19/18 07:51 MCHC 32.0 g/dl (31.0-37.0) 05/19/18 07:51 RDW 14.9 % (11.5-14.5) H 05/19/18 07:51 Plt Count 347 10^3/uL (120.0-450.0) 05/19/18 07:51 MPV 9.8 fl (7.0-11.0) 05/19/18 07:51 Neut % (Auto) 53.8 % (50.0-68.0) 05/16/18 17:40 Lymph % (Auto) 32.5 % (22.0-35.0) 05/16/18 17:40 [place] % (Auto) 11.1 % (1.0-6.0) H 05/16/18 17:40 Eos % (Auto) 2.2 % (1.5-5.0) 05/16/18 17:40 Baso % (Auto) 0.4 % (0.0-3.0) 05/16/18 17:40 Lymph # (Auto) 3.8 (1.2-3.4) H 05/16/18 17:40 [place] # (Auto) 1.3 (0.1-0.6) H 05/16/18 17:40 Eos # (Auto) 0.3 (0.0-0.7) 05/16/18 17:40 Baso # (Auto) 0.05 K/mm3 (0.0-2.0) 05/16/18 17:40 Absolute Neuts (auto) 6.22 (1.4-6.5) 05/16/18 17:40 pO2 81 mm/Hg (30-55) H 05/16/18 18:00 VBG pH 7.48 (7.32-7.43) H 05/16/18 18:00 VBG pCO2 42.0 (40-60) 05/16/18 18:00 VBG HCO3 31.3 mmol/l (21-28) H 05/16/18 18:00 VBG Total CO2 32.6 mmol.L (22-28) H 05/16/18 18:00 VBG O2 Sat (Calc) 98.4 % (40-65) H 05/16/18 18:00 VBG Base Excess 7.0 mmol/L (0.0-2.0) H 05/16/18 18:00 VBG Potassium 3.4 mmol/L (3.6-5.2) L 05/16/18 18:00 Sodium 141.0 mmol/L (132-148) 05/16/18 18:00 Chloride 105.0 mmol/L (98-107) 05/16/18 18:00 Glucose 90 mg/dl (65-105) 05/16/18 18:00 Lactate 1.7 mmol/L (0.7-2.1) 05/16/18 18:00 FiO2 21.0 % 05/16/18 18:00 Sodium 137 mmol/L (132-148) 05/19/18 07:51 Potassium 4.4 mmol/L (3.6-5.0) 05/19/18 07:51 Chloride 103 mmol/L (98-107) 05/19/18 07:51 Carbon Dioxide 34 mmol/L (21-33) H 05/19/18 07:51 Anion Gap 5 (10-20) L 05/19/18 07:51 BUN 13 mg/dL (7-21) 05/19/18 07:51 Creatinine 0.6 mg/dl (0.7-1.2) L 05/19/18 07:51 Est GFR ( Amer) > 60 05/19/18 07:51 Est GFR (Non-Af Amer) > 60 05/19/18 07:51 Random Glucose 133 mg/dL (70-110) H 05/19/18 07:51 Calcium 8.5 mg/dL (8.4-10.5) 05/19/18 07:51 Phosphorus 3.0 mg/dL (2.5-4.5) 05/17/18 06:00 Magnesium 2.1 mg/dL (1.7-2.2) 05/17/18 06:00 Total Bilirubin 0.4 mg/dL (0.2-1.3) 05/19/18 07:51 AST 23 U/L (14-36) 05/19/18 07:51 ALT 34 U/L (7-56) 05/19/18 07:51 Alkaline Phosphatase 68 U/L (38-126) 05/19/18 07:51 Lactate Dehydrogenase 528 U/L (333-699) 05/16/18 17:54 Total Creatine Kinase 70 U/L (35-230) 05/16/18 17:54 Troponin I < 0.01 ng/mL 05/16/18 17:54 NT-Pro-B Natriuret Pep 19.3 pg/mL (0-450) 05/16/18 17:54 Total Protein 6.1 g/dL (5.8-8.3) 05/19/18 07:51 Albumin 3.2 g/dL (3.0-4.8) 05/19/18 07:51 Globulin 2.9 gm/dL 05/19/18 07:51 Albumin/Globulin Ratio 1.1 (1.1-1.8) 05/19/18 07:51 Procalcitonin < 0.05 NG/ML (0.19-0.49) L 05/17/18 06:00 Venous Blood Potassium 3.4 mmol/L (3.6-5.2) L 05/16/18 18:00 Urine Color Yellow (YELLOW) 05/16/18 19:01 Urine Appearance Clear (CLEAR) 05/16/18 19:01 Urine pH 7.0 (4.7-8.0) 05/16/18 19:01 Ur Specific [place] 1.010 (1.005-1.035) 05/16/18 19:01 Urine Protein Negative mg/dL (<30 mg/dL) 05/16/18 19:01 Urine Glucose (UA) Negative mg/dL (NEGATIVE) 05/16/18 19:01 Urine Ketones Negative mg/dL (NEGATIVE) 05/16/18 19:01 Urine Blood Negative (NEGATIVE) 05/16/18 19:01 Urine Nitrate Negative (NEGATIVE) 05/16/18 19:01 Urine Bilirubin Negative (NEGATIVE) 05/16/18 19:01 Urine Urobilinogen 2.0 E.U./dL (<1 E.U./dL) H 05/16/18 19:01 Ur Leukocyte Esterase Negative Erik/uL (NEGATIVE) 05/16/18 19:01 Urine Opiates Screen Negative (NEGATIVE) 05/18/18 08:50 Urine Methadone Screen Negative (NEGATIVE) 05/18/18 08:50 Ur Barbiturates Screen Negative (NEGATIVE) 05/18/18 08:50 Ur Phencyclidine Scrn Negative (NEGATIVE) 05/18/18 08:50 Ur Amphetamines Screen Negative (NEGATIVE) 05/18/18 08:50 U Benzodiazepines Scrn Positive (NEGATIVE) H 05/18/18 08:50 U Oth Cocaine Metabols Negative (NEGATIVE) 05/18/18 08:50 U Cannabinoids Screen Negative (NEGATIVE) 05/18/18 08:50 Alcohol, Quantitative 179 mg/dL (0-10) H 05/16/18 21:20 Ur L.pneumophila Ag Negative (NEGATIVE) 05/16/18 21:40 Ur Strep pneumoniae Ag Not detected (Not Detected) 05/16/18 21:20 Attending/Attestation - Attestation I have personally seen and examined this patient.: Yes I have fully participated in the care of the patient.: Yes I have reviewed all pertinent clinical information, including history, physical exam and plan: Yes Notes (Text): 05/20/18 18:01 47 year old female with past medical history of COPD and alcohol/polysubstance abuse who is admitted for COPD exacerbation and alcohol intoxication. Symptoms improved with iv steroids, duonebs, zithromax and robitussin. Leukocytosis was likely secondary to steroids. She was on tapering ativan craig/prn for alcohol withdrawal symptoms. Patient is discharged today on tapering steroids. Counselled on alcohol cessation. Counselled on smoking cessation. Counselled on risks of continued substance. Overall prognosis is guarded secondary to noncompliance. Karolina Watson MD Hospitalist.
--- NOTE | 2018-05-21 09:49 | PN ---
HISTORY OF PRESENT ILLNESS: The patient is a 47-year-old female with a history of polysubstance abuse, alcohol use disorder, who has been seen by Psychiatry in the medical floor because the patient verbalize thoughts of harming herself because of her medical condition. The patient was seen by the Psychiatry yesterday and I reviewed Dr. Watson's notes. The patient indicated that she actually was not suicidal at all. She was just make frustration. She did admit to anxiety and trouble sleeping and trazodone and Vistaril were initiated. I met with the patient at bedside and she is oriented to month, year, location, and circumstances. Focus is fair and mostly consistent throughout the course of her interview. The patient reports that she continues to be feeling down because of her medical condition, feels llamas. Sleep was still restless last night even with trazodone and she continued to have anxiety; however, she denies having any wishes, hopelessness, or suicidal thoughts. She also denies any perceptual disturbance. Delusions were not elicited. There were no major behavioral issues overnight either. Labs and vital signs were reviewed. RELEVANT PSYCHIATRIC MEDICATIONS: Include trazodone 50 mg at bedtime and Vistaril 50 mg every 8 hours p.r.n., which the patient received one dose yesterday morning. IMPRESSION: Likely substance-induced mood . Carol Solano MD
--- NOTE | 2018-05-25 14:44 | PQF ---
PROVIDER RESPONSE TEXT: COPD exacerbation REVIEWER QUERY TEXT: Asthma Specificity and Type Asthma is documented in the Medical Record. Please specify the type and severity of asthma and indic ate if this is associated with exacerbation or status asthmaticus. Such as: -- Mild intermittent -- Mild persistent -- Moderate persistent -- Severe persistent -- Exercise induced bronchospasm -- Cough variant asthma -- Other, please specify The patient's Clinical Indicators include: Please see query. Thank you. Query created by: Mickie Loja on 05/23/2018 11:48 AM Electronically signed by: Karolina Watson MD 05/25/2018 2:41 PM
== END 2018-05-20 19:54 | disposition home or self-care (01) | DRG 88 ==
LOC: ED 16:42 → ERH 20:51 → 3RNO 22:08 → OBSVTOIN 05-17 11:52 → 3RNO 05-17 21:18
PROVIDERS: ADMIT Internal Medicine; ATTEND Internal Medicine
DX: J44.1 Chronic obstructive pulmonary disease with (acute) exacerbation (principal); J45.901 Unspecified asthma with (acute) exacerbation; F10.239 Alcohol dependence with withdrawal, unspecified; I11.0 Hypertensive heart disease with heart failure; I50.9 Heart failure, unspecified; K74.60 Unspecified cirrhosis of liver; D72.829 Elevated white blood cell count, unspecified; T38.0X5A Adverse effect of glucocorticoids and synthetic analogues, initial encounter; E78.00 Pure hypercholesterolemia, unspecified; F17.210 Nicotine dependence, cigarettes, uncomplicated; F12.90 Cannabis use, unspecified, uncomplicated; F41.9 Anxiety disorder, unspecified; Z86.19 Personal history of other infectious and parasitic diseases; R45.851 Suicidal ideations; Z59.0 Homelessness; Z79.899 Other long term (current) drug therapy; Z82.5 Family history of asthma and other chronic lower respiratory diseases; Z90.49 Acquired absence of other specified parts of digestive tract; Z91.14 Patient's other noncompliance with medication regimen; Z91.19 Patient's noncompliance with other medical treatment and regimen

== ENCOUNTER 2018-05-21 18:54 | Observation (INO) | payer MEDICAID ==
[2018-05-21] MEDS ORDERED: Albuterol-Ipratrop 3 mg / 0.5 (3 ml) UD IH STA ×2 (19:20→21:06)
--- NOTE | 2018-05-21 19:45 | ED PDOC ---
Arrival/HPI - General Chief Complaint: Shortness Of Breath Time Seen by Provider: 05/21/18 19:15 Historian: Patient - History of Present Illness Narrative History of Present Illness (Text): 05/21/18 19:36 47 year old female, whose past medical history includes COPD, asthma, alcohol/heroin abuse, and hepatitis C with liver cirrhosis, presents to the emergency department by EMS for shortness of breath. Patient states she was re cently released from the hospital for similar symptoms. Patient states she does not feel better, and symptoms have worsened. Patient informs occasional cough. Patient denies any history of chest pain. Patient denies any fever, chills, nausea, vomiting, or any other complaint. No PMD Time/Duration: 24 hours Symptom Onset: Gradual Symptom Course: Unchanged, Worsening Activities at Onset: Light Past Medical History - Provider Review Nursing Documentation Reviewed: Yes - Infectious Disease Hx of Infectious Diseases: None - Tetanus Immunization Tetanus Immunization: Unknown - Reproductive Currently : No - Cardiac Hx Cardiac Disorders: Yes Hx Congestive Heart Failure: Yes Hx Hypertension: Yes - Pulmonary Hx Respiratory Disorders: Yes Hx Asthma: Yes Hx Bronchitis: Yes Hx Chronic Obstructive Pulmonary Disease (COPD): Yes Hx Emphysema: Yes Other/Comment: pneumothorax with chest tube - Neurological Hx Neurological Disorder: No Hx Seizures: No - HEENT Hx HEENT Disorder: No - Renal Hx Renal Disorder: No - Endocrine/Metabolic Hx Endocrine Disorders: No - Hematological/Oncological Hx Blood Disorders: Yes Hx Hepatitis C: Yes - Integumentary Hx Dermatological Disorder: No - Musculoskeletal/Rheumatological Hx Musculoskeletal Disorders: Yes Hx Falls: Yes Hx Fractures: Yes (right ankle, right knnee) - Gastrointestinal Hx Gastrointestinal Disorders: Yes Hx Pancreatitis: No (denies) - Genitourinary/Gynecological Hx Genitourinary Disorders: No Hx Sexually Transmitted Diseases: No - Psychiatric Hx Psychophysiologic Disorder: Yes Hx Anxiety: Yes Hx Depression: Yes Hx Substance Use: Yes (herorin 2 weeks ago) Other/Comment: methadone, heorin and alcohol abuse - Surgical History Hx Appendectomy: Yes Other/Comment: tonsillectomy - Anesthesia Hx Anesthesia: Yes Hx Anesthesia Reactions: No Hx Malignant Hyperthermia: No - Suicidal Assessment Feels Threatened In Home Enviroment: No Family/Social History - Physician Review Nursing Documentation Reviewed: Yes Family/Social History: No Known Family HX Smoking Status: Smoker Currrent Status Unknown Hx Alcohol Use: Yes (4 cans (25oz each) daily) Hx Substance Use: Yes (herorin 2 weeks ago) Substance used: heroin Hx Substance Use Treatment: Yes Allergies/Home Meds Allergies/Adverse Reactions: Allergies No Known Allergies Allergy (Verified 05/05/18 23:17) Review of Systems - Physician Review All systems were reviewed & negative as marked: Yes - Review of Systems Constitutional: absent: Fevers, Night Sweats Respiratory: SOB, Cough Cardiovascular: absent: Chest Pain Gastrointestinal: absent: Nausea, Vomiting Physical Exam - Systems Exam Head: Present: Atraumatic, Normocephalic Pupils: Present: PERRL Extroacular Muscles: Present: EOMI Conjunctiva: Present: Normal Mouth: Present: Moist Mucous Membranes Neck: Present: Normal Range of Motion Respiratory/Chest: Present: Wheezes (Bilaterally), Decreased Breath Sounds (Bilaterally). No: Respiratory Distress, Accessory Muscle Use Cardiovascular: Present: Regular Rate and Rhythm, Normal S1, S2. No: Murmurs Abdomen: No: Tenderness, Distention, Peritoneal Signs Back: Present: Normal Inspection Upper Extremity: Present: Normal Inspection. No: Cyanosis, Edema Lower Extremity: Present: Normal Inspection. No: Edema Neurological: Present: GCS=15, CN II-XII Intact, Speech Normal Skin: Present: Warm, Dry, Normal Color. No: Rashes Psychiatric: Present: Alert, Oriented x 3, Normal Insight, Normal Concentration Medical Decision Making ED Course and Treatment: 05/21/18 19:47 Impression: 47 year old female presents with shortness of breath Plan: -- EKG -- CMP, Cardiac iso -- CBC -- Chest X-ray -- Duoneb -- Solumedrol -- Reassess and disposition Prior Visits: Notes and results from previous visits were reviewed. Progress Notes: 05/22/18 00:09 Spoke with the medical geneticist and Dr. Mares who accepts patient to his service - RAD Interpretation Radiology Orders: 05/21/18 19:20 CHEST PORTABLE [RAD] Stat - Medication Orders Current Medication Orders: Discontinued Medications Albuterol/Ipratropium (Duoneb 3 Mg/0.5 Mg (3 Ml) Ud) 3 ml IH ONCE STA Stop: 05/21/18 19:21 Last Admin: 05/21/18 19:26 Dose: 3 ml Methylprednisolone (Solu-Medrol) 125 mg IVP ONCE ONE Stop: 05/21/18 19:21 - Scribe Statement The provider has reviewed the documentation as recorded by the Jc Figueroa Provider Rosettaibclive Attestation: All medical record entries made by the Rosettaibclive were at my direction and personally dictated by me. I have reviewed the chart and agree that the record accurately reflects my personal performance of the history, physical exam, medical decision making, and the department course for this patient. I have also personally directed, reviewed, and agree with the discharge instructions and disposition. Disposition/Present on Arrival - Present on Arrival Any Indicators Present on Arrival: No History of DVT/PE: No History of Uncontrolled Diabetes: No Urinary Catheter: No History of Decub. Ulcer: No History Surgical Site Infection Following: None - Disposition Have Diagnosis and Disposition been Completed?: Yes Diagnosis: Asthma exacerbation Disposition: HOSPITALIZED Disposition Time: 22:38 Patient Problems: Current Active Problems Problem Status Onset Asthma attack Acute Condition: STABLE
[2018-05-21 19:58] LABS: HEMOGLOBIN 15.3 g/dL (12.0-16.0); MEAN CELL VOLUME 97.9 fl (80.0-105.0); MEAN CORPUSCULAR HEMOGLOBIN 32.1 pg (25.0-35.0); MEAN CORPUSCULAR HGB CONC 32.8 g/dl (31.0-37.0); MEAN PLATELET VOLUME 9.8 fl (7.0-11.0); RBC 4.77 10^6/uL (3.5-6.1); RED CELL DISTRIBUTION WIDTH 14.9 % (11.5-14.5); WHITE BLOOD COUNT 15.2 10^3/uL (4.5-11.0)
[2018-05-21 20:15] LABS: ALB/GLOB RATIO 1.2 (1.1-1.8); ALBUMIN 3.6 g/dL (3.0-4.8); ALT/SGPT 38 U/L (7-56); AST/SGOT 34 U/L (14-36); BLOOD UREA NITROGEN 19 mg/dL (7-21); CALCIUM 7.7 mg/dL (8.4-10.5); GFR NON-AFRICAN AMERICAN > 60
[2018-05-21 20:22] LABS: TROPONIN I < 0.01 ng/mL
--- NOTE | 2018-05-22 00:25 | CP.PCM.HP ---
<Ozzy Koo - Last Filed: 05/22/18 04:31> History of Present Illness - History of Present Illness History of Present Illness: Medicine History and Physical for Hospitalist Service, Dr. Suzan Koo, DO PGY-1 This is a 47 y o female with PMhx asthma, COPD, polysubstance abuse, Hep C, Cirrhosis, who presented to the ED c/o worsening shortness of breath and cough. Pt was recently discharged from [facility] [place] days prior with prescriptions for Medrol dose pack, albuterol inhaler refill, and robitussin for cough. Pt states she was unable to pharmacy picking tech any of her prescriptions from the pharmacy after discharge and did not start taking her medications as prescribed. Reports smoking cigarettes several hrs prior to ED presentation. Admits to productive cough with yellowish sputum. Admits to having wheezing that has been worsening for the past several days, admits to associated chest tightness that may be secondary to her difficulty breathing. Denies HINTON, fever, chills, n/v/d/c, abd pain, urinary complaints, or other symptoms. States she last drank alcohol hours before coming to the ED. PMhx: asthma, COPD, polysubstance abuse, medication non-compliance, Hep C, liver cirrhosis PSurgHx: appendectomy, tonsillectomy Allergies: NKDA Home meds: Ventolin inhaler daily Fam hx: Grandmother has COPD Soc hx: Current smoker 1/2 PPD for more than 30 y, heavy alcohol user, and marijuana PMD: none Present on Admission - Present on Admission Any Indicators Present on Admission: No History of DVT/PE: No History of Uncontrolled Diabetes: No Urinary Catheter: No Decubitus Ulcer Present: No Review of Systems - Constitutional Constitutional: Fatigue. absent: Chills, Fever, Headache, Night Sweats - Cardiovascular Cardiovascular: Chest Pain, Dyspnea, Dyspnea on Exertion. absent: Lightheadedness, Palpitations - Respiratory Respiratory: Cough, Dyspnea, Dyspnea on Exertion, Wheezing, Pain on Inspiration, Chest Congestion, Excessive Mucous Production, Pain with Coughing - Gastrointestinal Gastrointestinal: absent: Abdominal Pain, Nausea, Vomiting - Musculoskeletal Musculoskeletal: absent: Back Pain, Numbness, Tingling Past Patient History - Infectious Disease Hx of Infectious Diseases: None - Tetanus Immunizations Tetanus Immunization: Unknown - Past Medical History & Family History Past Medical History?: Yes - Past Social History Smoking Status: Smoker Currrent Status Unknown - CARDIAC Hx Cardiac Disorders: Yes Hx Congestive Heart Failure: Yes Hx Hypertension: Yes - PULMONARY Hx Respiratory Disorders: Yes Hx Asthma: Yes Hx Bronchitis: Yes Hx Chronic Obstructive Pulmonary Disease (COPD): Yes Hx Emphysema: Yes Other/Comment: pneumothorax with chest tube - NEUROLOGICAL Hx Neurological Disorder: No Hx Seizures: No - HEENT Hx HEENT Problems: No - RENAL Hx Chronic Kidney Disease: No - ENDOCRINE/METABOLIC Hx Endocrine Disorders: No - HEMATOLOGICAL/ONCOLOGICAL Hx Blood Disorders: Yes Hx Hepatitis C: Yes - INTEGUMENTARY Hx Dermatological Problems: No - MUSCULOSKELETAL/RHEUMATOLOGICAL Hx Musculoskeletal Disorders: Yes Hx Falls: Yes Hx Fractures: Yes (right ankle, right knnee) - GASTROINTESTINAL Hx Gastrointestinal Disorders: Yes Hx Pancreatitis: No (denies) - GENITOURINARY/GYNECOLOGICAL Hx Genitourinary Disorders: No Hx Sexually Transmitted Disorders: No - PSYCHIATRIC Hx Psychophysiologic Disorder: Yes Hx Anxiety: Yes Hx Depression: Yes Hx Substance Use: Yes (herorin 2 weeks ago) Other/Comment: methadone, heorin and alcohol abuse - SURGICAL HISTORY Hx Appendectomy: Yes Other/Comment: tonsillectomy - ANESTHESIA Hx Anesthesia: Yes Hx Anesthesia Reactions: No Hx Malignant Hyperthermia: No Meds Allergies/Adverse Reactions: Allergies Allergy/AdvReac Type Severity Reaction Status Date / Time No Known Allergies Allergy Verified 05/05/18 23:17 Physical Exam - Constitutional Appears: Non-toxic, No Acute Distress - Head Exam Head Exam: ATRAUMATIC, NORMOCEPHALIC - Eye Exam Eye Exam: EOMI, Normal appearance, PERRL - ENT Exam ENT Exam: Mucous Membranes Moist, Normal Oropharynx - Respiratory Exam Respiratory Exam: Clear to Auscultation Bilateral, Wheezes. absent: Rales, Rhonchi - Cardiovascular Exam Cardiovascular Exam: Tachycardia, +S1, +S2. absent: Gallop, Rubs, Systolic Murmur - GI/Abdominal Exam GI & Abdominal Exam: Normal Bowel Sounds, Soft. absent: Distended, Guarding, Organomegaly, Rigid, Tenderness - Extremities Exam Extremities exam: Positive for: full ROM, normal capillary refill, normal inspection, pedal pulses present. Negative for: calf tenderness, pedal edema - Neurological Exam Neurological exam: Alert, CN II-XII Intact, Oriented x3, Reflexes Normal - Skin Skin Exam: Dry, Intact, Normal Color, Warm Results - Vital Signs Recent Vital Signs: Last Vital Signs Temp 98.7 F 05/21/18 19:02 Pulse 105 H 05/21/18 21:24 Resp 18 05/21/18 21:24 BP 119/80 05/21/18 21:24 Pulse Ox 94 L 05/21/18 21:24 - Labs Result Diagrams: 05/21/18 19:50 05/21/18 19:50 Labs: Laboratory Results - last 24 hr 05/21/18 05/21/18 19:50 19:50 WBC 15.2 H RBC 4.77 Hgb 15.3 Hct 46.7 MCV 97.9 MCH 32.1 MCHC 32.8 RDW 14.9 H Plt Count 302 MPV 9.8 Sodium 136 Potassium 3.6 Chloride 99 Carbon Dioxide 31 Anion Gap 10 BUN 19 Creatinine 0.6 L Est GFR ( Amer) > 60 Est GFR (Non-Af Amer) > 60 Random Glucose 114 H Calcium 7.7 L Total Bilirubin 0.4 AST 34 ALT 38 Alkaline Phosphatase 65 Lactate Dehydrogenase 504 Total Creatine Kinase 27 L Troponin I < 0.01 Total Protein 6.6 Albumin 3.6 Globulin 3.1 Albumin/Globulin Ratio 1.2 Assessment & Plan - Assessment and Plan (Free Text) Assessment: This is a 47 y o female with PMhx asthma, COPD, polysubstance abuse, Hep C, Cirrhosis, who presented to the ED c/o worsening shortness of breath and cough. Admitted for asthma exacerbation, management of EtOH withdrawal. Plan: Asthma exacerbation -Admit to med/surg -Exacerbation possibly 2/2 medication non-compliance -CXR in ED demonstrates no acute changes, increased pulm vascular markings noted -EKG in ED was sinus tachy at [address], no acute [address]-t wave changes noted -Trop neg x1 -Leukocytosis on admission at 15.2 -Start Doxycycline 100 mg IVPB q12h -Solu-Medrol 40 mg q8h IVP -Pulmicort q12h -Atrovent q4h rcaig -Xopenex q6h prn -HHD EtOH withdrawal -CIWA protocol -Seizure precautions -EtOH level pending -Librium 25 mg PO q8h -Ativan 1 mg q4h prn for agitation -EtOH cessation counseling given to patient Hx polysubstance abuse -UDS pending Hx Hep C/cirrhosis -Not on any current medical therapy -AST/ALT wnl on admission, cont to monitor PPX: Protonix/SCDs Pt seen, examined with, and plan discussed with Dr. Mares, attending ph ysician. Ozzy Koo DO PGY-1, Field Sales Associate Pager #[phone] <Nicolasa Mares - Last Filed: 05/22/18 21:20> Results - Vital Signs Recent Vital Signs: Last Vital Signs Temp 98.6 F 05/22/18 08:19 Pulse 90 05/22/18 08:19 Resp 18 05/22/18 08:19 BP 132/96 H 05/22/18 08:19 Pulse Ox 96 05/22/18 08:19 - Labs Result Diagrams: 05/22/18 07:30 05/22/18 07:30 Labs: Laboratory Results - last 24 hr 05/21/18 05/22/18 05/22/18 19:50 07:30 07:30 WBC 16.8 H RBC 4.58 Hgb 14.7 Hct 44.5 MCV 97.2 MCH 32.1 MCHC 33.0 RDW 14.8 H Plt Count 291 MPV 9.8 Neut % (Auto) 86.8 H Lymph % (Auto) 8.3 L Hitchcock % (Auto) 4.8 Eos % (Auto) 0.0 L Baso % (Auto) 0.1 Lymph # (Auto) 1.4 Hitchcock # (Auto) 0.8 H Eos # (Auto) 0.0 Baso # (Auto) 0.01 Absolute Neuts (auto) 14.62 H Sodium 135 Potassium 4.4 Chloride 97 L Carbon Dioxide 31 Anion Gap 11 BUN 18 Creatinine 0.5 L Est GFR ( Amer) > 60 Est GFR (Non-Af Amer) > 60 Random Glucose 208 H Calcium 8.4 Total Bilirubin 0.4 AST 36 ALT 30 Alkaline Phosphatase 65 Total Protein 6.5 Albumin 3.6 Globulin 2.9 Albumin/Globulin Ratio 1.2 Urine Opiates Screen Urine Methadone Screen Ur Barbiturates Screen Ur Phencyclidine Scrn Ur Amphetamines Screen U Benzodiazepines Scrn U Oth Cocaine Metabols U Cannabinoids Screen Alcohol, Quantitative < 10 05/22/18 18:30 WBC RBC Hgb Hct MCV MCH MCHC RDW Plt Count MPV Neut % (Auto) Lymph % (Auto) Hitchcock % (Auto) Eos % (Auto) Baso % (Auto) Lymph # (Auto) Hitchcock # (Auto) Eos # (Auto) Baso # (Auto) Absolute Neuts (auto) Sodium Potassium Chloride Carbon Dioxide Anion Gap BUN Creatinine Est GFR ( Amer) Est GFR (Non-Af Amer) Random Glucose Calcium Total Bilirubin AST ALT Alkaline Phosphatase Total Protein Albumin Globulin Albumin/Globulin Ratio Urine Opiates Screen Positive H Urine Methadone Screen Negative Ur Barbiturates Screen Negative Ur Phencyclidine Scrn Negative Ur Amphetamines Screen Negative U Benzodiazepines Scrn Positive H U Oth Cocaine Metabols Negative U Cannabinoids Screen Negative Alcohol, Quantitative Attending/Attestation - Attestation I have personally seen and examined this patient.: Yes I have fully participated in the care of the patient.: Yes I have reviewed all pertinent clinical information: Yes
[2018-05-22] MEDS: Ipratropium 0.02% Inhal Soln (0.5 mg/2.5 ml) UD IH SCH ×6 (01:00→23:50)
[2018-05-22 04:01] VITALS: BMI 37.0
[2018-05-22] MEDS: Budesonide 0.25 mg/2 ml Inhal Susp UD IH SCH ×2 (07:47→19:35)
[2018-05-22 07:48] LABS: BASO # 0.01 K/mm3 (0.0-2.0); BASO % 0.1 % (0.0-3.0); HEMOGLOBIN 14.7 g/dL (12.0-16.0); LYMPH # 1.4 (1.2-3.4); LYMPH % 8.3 % (22.0-35.0); MEAN CELL VOLUME 97.2 fl (80.0-105.0); MEAN CORPUSCULAR HEMOGLOBIN 32.1 pg (25.0-35.0); MEAN PLATELET VOLUME 9.8 fl (7.0-11.0); MONO # 0.8 (0.1-0.6); MONO % 4.8 % (1.0-6.0); RBC 4.58 10^6/uL (3.5-6.1); RED CELL DISTRIBUTION WIDTH 14.8 % (11.5-14.5); WHITE BLOOD COUNT 16.8 10^3/uL (4.5-11.0)
[2018-05-22 08:15] LABS: ALB/GLOB RATIO 1.2 (1.1-1.8); ALBUMIN 3.6 g/dL (3.0-4.8); ALT/SGPT 30 U/L (7-56); AST/SGOT 36 U/L (14-36); BLOOD UREA NITROGEN 18 mg/dL (7-21); CALCIUM 8.4 mg/dL (8.4-10.5); GFR NON-AFRICAN AMERICAN > 60
--- NOTE | 2018-05-22 08:46 | RAD ---
Date of service: 05/21/2018 HISTORY: sob COMPARISON: 05/16/2018 FINDINGS: LUNGS: No active pulmonary disease. PLEURA: No significant pleural effusion identified, no pneumothorax apparent. CARDIOVASCULAR: No aortic atherosclerotic calcification present. Normal cardiac size. No pulmonary vascular congestion. OSSEOUS STRUCTURES: No significant abnormalities. VISUALIZED UPPER ABDOMEN: Normal. OTHER FINDINGS: None. IMPRESSION: No active disease.
[2018-05-22] MEDS: Levalbuterol 0.63 MG/3 ML Inhal Soln UD IH PRN (11:57)
--- NOTE | 2018-05-22 12:24 | CARD ---
APPROVED REPORT Date of service: 05/21/2018 EKG Measurement Heart [id number] <Conclusion> Sinus tachycardia Otherwise normal ECG
[2018-05-22] MEDS ORDERED: MethylPREDNISolone 40 mg Vial IVP SCH (14:00)
[2018-05-22 19:33] LABS: BARBITURATES, UR NEGATIVE (NEGATIVE); BENZODIAZEPINES, UR POSITIVE (NEGATIVE); OPIATES, UR POSITIVE (NEGATIVE); PHENCYCLIDINE, UR NEGATIVE (NEGATIVE)
[2018-05-22] MEDS: MethylPREDNISolone 40 mg Vial IVP SCH (22:00)
[2018-05-22 22:18] VITALS: RESP 20; O2SAT 97
[2018-05-23] MEDS: Ipratropium 0.02% Inhal Soln (0.5 mg/2.5 ml) UD IH SCH ×3 (04:18→10:57)
[2018-05-23 07:25] LABS: BASO # 0.01 K/mm3 (0.0-2.0); BASO % 0.1 % (0.0-3.0); EOS % 0.2 % (1.5-5.0); HEMOGLOBIN 15.2 g/dL (12.0-16.0); LYMPH # 1.8 (1.2-3.4); LYMPH % 10.6 % (22.0-35.0); MEAN CELL VOLUME 98.5 fl (80.0-105.0); MEAN CORPUSCULAR HEMOGLOBIN 32.3 pg (25.0-35.0); MEAN CORPUSCULAR HGB CONC 32.8 g/dl (31.0-37.0); MEAN PLATELET VOLUME 10.5 fl (7.0-11.0); MONO # 1.4 (0.1-0.6); MONO % 8.2 % (1.0-6.0); RBC 4.7 10^6/uL (3.5-6.1); RED CELL DISTRIBUTION WIDTH 14.9 % (11.5-14.5); WHITE BLOOD COUNT 17.4 10^3/uL (4.5-11.0)
[2018-05-23] MEDS ORDERED: Pantoprazole 40 mg EC Tab PO SCH (07:30)
[2018-05-23] MEDS: Budesonide 0.25 mg/2 ml Inhal Susp UD IH SCH (07:43)
[2018-05-23 08:18] LABS: ALB/GLOB RATIO 1.1 (1.1-1.8); ALBUMIN 3.2 g/dL (3.0-4.8); ALT/SGPT 31 U/L (7-56); AST/SGOT 30 U/L (14-36); BLOOD UREA NITROGEN 17 mg/dL (7-21); CALCIUM 8.3 mg/dL (8.4-10.5); GFR NON-AFRICAN AMERICAN > 60
[2018-05-23 08:21] VITALS: BP 119/77; PULSE 74; TEMP 98.6
[2018-05-23] MEDS: MethylPREDNISolone 40 mg Vial IVP SCH (09:01)
[2018-05-23] MEDS: Levalbuterol 0.63 MG/3 ML Inhal Soln UD IH PRN (10:57)
--- NOTE | 2018-05-23 13:45 | CP.PCM.DIS ---
<Pedro Santa - Last Filed: 05/23/18 13:42> Provider - Provider Date of Admission: 05/21/18 22:33 Attending physician: Soo Cardona MD Primary care physician: Brad Golden MD Time Spent in preparation of Discharge (in minutes): 35 Diagnosis - Discharge Diagnosis (1) COPD exacerbation Status: Chronic Hospital Course - Lab Results Lab Results: Most Recent Lab Values WBC 17.4 10^3/uL (4.5-11.0) H 05/23/18 07:00 RBC 4.70 10^6/uL (3.5-6.1) 05/23/18 07:00 Hgb 15.2 g/dL (12.0-16.0) 05/23/18 07:00 Hct 46.3 % (36.0-48.0) 05/23/18 07:00 MCV 98.5 fl (80.0-105.0) 05/23/18 07:00 MCH 32.3 pg (25.0-35.0) 05/23/18 07:00 MCHC 32.8 g/dl (31.0-37.0) 05/23/18 07:00 RDW 14.9 % (11.5-14.5) H 05/23/18 07:00 Plt Count 330 10^3/uL (120.0-450.0) 05/23/18 07:00 MPV 10.5 fl (7.0-11.0) 05/23/18 07:00 Neut % (Auto) 80.9 % (50.0-68.0) H 05/23/18 07:00 Lymph % (Auto) 10.6 % (22.0-35.0) L 05/23/18 07:00 Archer % (Auto) 8.2 % (1.0-6.0) H 05/23/18 07:00 Eos % (Auto) 0.2 % (1.5-5.0) L 05/23/18 07:00 Baso % (Auto) 0.1 % (0.0-3.0) 05/23/18 07:00 Lymph # (Auto) 1.8 (1.2-3.4) 05/23/18 07:00 Archer # (Auto) 1.4 (0.1-0.6) H 05/23/18 07:00 Eos # (Auto) 0.0 (0.0-0.7) 05/23/18 07:00 Baso # (Auto) 0.01 K/mm3 (0.0-2.0) 05/23/18 07:00 Absolute Neuts (auto) 14.08 (1.4-6.5) H 05/23/18 07:00 Sodium 134 mmol/L (132-148) 05/23/18 07:50 Potassium 4.7 mmol/L (3.6-5.0) 05/23/18 07:50 Chloride 102 mmol/L (98-107) 05/23/18 07:50 Carbon Dioxide 29 mmol/L (21-33) 05/23/18 07:50 Anion Gap 9 (10-20) L 05/23/18 07:50 BUN 17 mg/dL (7-21) 05/23/18 07:50 Creatinine 0.5 mg/dl (0.7-1.2) L 05/23/18 07:50 Est GFR ( Amer) > 60 05/23/18 07:50 Est GFR (Non-Af Amer) > 60 05/23/18 07:50 Random Glucose 119 mg/dL (70-110) H 05/23/18 07:50 Calcium 8.3 mg/dL (8.4-10.5) L 05/23/18 07:50 Total Bilirubin 0.6 mg/dL (0.2-1.3) 05/23/18 07:50 AST 30 U/L (14-36) 05/23/18 07:50 ALT 31 U/L (7-56) 05/23/18 07:50 Alkaline Phosphatase 57 U/L (38-126) 05/23/18 07:50 Lactate Dehydrogenase 504 U/L (333-699) 05/21/18 19:50 Total Creatine Kinase 27 U/L (35-230) L 05/21/18 19:50 Troponin I < 0.01 ng/mL 05/21/18 19:50 Total Protein 6.3 g/dL (5.8-8.3) 05/23/18 07:50 Albumin 3.2 g/dL (3.0-4.8) 02/06/19 07:50 Globulin 3.0 gm/dL 05/23/18 07:50 Albumin/Globulin Ratio 1.1 (1.1-1.8) 05/23/18 07:50 Urine Opiates Screen Positive (NEGATIVE) H 05/22/18 18:30 Urine Methadone Screen Negative (NEGATIVE) 05/22/18 18:30 Ur Barbiturates Screen Negative (NEGATIVE) 05/22/18 18:30 Ur Phencyclidine Scrn Negative (NEGATIVE) 05/22/18 18:30 Ur Amphetamines Screen Negative (NEGATIVE) 05/22/18 18:30 U Benzodiazepines Scrn Positive (NEGATIVE) H 05/22/18 18:30 U Oth Cocaine Metabols Negative (NEGATIVE) 05/22/18 18:30 U Cannabinoids Screen Negative (NEGATIVE) 05/22/18 18:30 Alcohol, Quantitative < 10 mg/dL (0-10) 05/21/18 19:50 - Hospital Course Hospital Course: Pedro Santa DO, PGY-1 Hospitalist Discharge Summary for Dr. Walter Mohr is a 47 year old female with PMH of COPD, polysubstance abuse, Hepatitis C, Cirrhosis who presented to ED with worsening cough and SOB. She was discharged two days ago with a similar episode and she was admitted again for similar complaints. She has been admitted many times in the past for similar exacerbations. She has a history of difficulty obtaining her medications as she is currently homeless. For this past episode, she received her medications were delivered at bedside but she did not take any of them. She was again treated with scheduled and PRN duo-neb treatments, solumedrol starting at 40 mg q12 then tapered to oral steroids. Throughout her stay she continued to improve but continued to complain of cough. On examination this AM, her wheezing has resolved. She is discharged with a medrol dose pack with tapering instructions, a refill of her albuterol inhaler, budesonide inhaler BID, and robutissin PRN for cough. Medications were again delivered to her bedside prior to discharge. She was counseled on the importance of abstaining entirely from smoking cigarettes and alcohol. She is agreeable to discharge plan today. All questions were answered. Patient seen, examined, and discharge plan discussed with my attending Dr. Dulce Santa D.O. IM Resident PGY-1 Discharge Exam - Head Exam Head Exam: ATRAUMATIC, NORMOCEPHALIC - Eye Exam Eye Exam: EOMI, Normal appearance, PERRL - ENT Exam ENT Exam: Mucous Membranes Moist - Neck Exam Neck exam: Full Rom, Normal Inspection - Respiratory Exam Respiratory Exam: Clear to PA & Lateral, NORMAL BREATHING PATTERN, UNREMARKABLE. absent: Accessory Muscle Use, Rales, Rhonchi, Wheezes, Respiratory Distress - Cardiovascular Exam Cardiovascular Exam: REGULAR RHYTHM, RRR, +S1, +S2. absent: Diastolic murmur, Gallop, Rubs, Systolic Murmur - GI/Abdominal Exam GI & Abdominal Exam: Normal Bowel Sounds, Soft, Unremarkable - Extremities Exam Extremities exam: full ROM, normal inspection - Back Exam Back exam: FULL ROM, NORMAL INSPECTION - Neurological Exam Neurological exam: Alert, Oriented x3 - Psychiatric Exam Psychiatric exam: Anxious - Skin Skin Exam: Dry, Intact, Warm Discharge Plan - Discharge Medications Prescriptions: RX: Albuterol HFA [Ventolin HFA 90 mcg/actuation (8 g)] 2 puff IH Q4H PRN #1 inh PRN Reason: Wheezing RX: Budesonide 1 mg IH BID #1 ampul.neb RX: Folic Acid 0.8 mg PO DAILY #14 capsule RX: guaiFENesin [Robitussin] 100 mg PO Q4H PRN #1 udc PRN Reason: Cough RX: Methylprednisolone [Medrol Dose Pack (21 tabs)] 4 mg PO DAILY #21 mg RX: Multivitamin [Daily Jorge] 1 each PO DAILY #14 tablet RX: Thiamine [Vitamin B1 Tab] 100 mg PO DAILY #14 tab - Follow Up Plan Condition: STABLE Disposition: HOME/ ROUTINE Instructions: Chronic Obstructive Pulmonary Disease (COPD), Including Emphysema, Quitting Smoking, Alcohol Abuse and Alcoholism (DC), COPD (Chronic Obstructive Pulmonary Disease) (DC) Additional Instructions: Please follow up with your primary medical doctor, Dr Golden, within 1 week of discharge. Please take the medrol dose pack as prescribed. Please continue to use your rescue inhaler as needed. We have also given you a new inhaler, Budesonide, that you will use twice a day. We have also given you a medicine, robitussin, to help with your cough. It is very important that you stop smoking, we have given you nicotine patches to help. It is very important that you stop drinking alcohol. If your symptoms worsen, please return to nearest ED. Referrals: Brad Golden MD [Primary Care Provider] - <Soo Cardona - Last Filed: 05/23/18 16:52> Provider - Provider Date of Admission: 05/21/18 22:33 Attending physician: Soo Cardona MD Primary care physician: Brad Golden MD Hospital Course - Lab Results Lab Results: Most Recent Lab Values WBC 17.4 10^3/uL (4.5-11.0) H 05/23/18 07:00 RBC 4.70 10^6/uL (3.5-6.1) 05/23/18 07:00 Hgb 15.2 g/dL (12.0-16.0) 05/23/18 07:00 Hct 46.3 % (36.0-48.0) 05/23/18 07:00 MCV 98.5 fl (80.0-105.0) 05/23/18 07:00 MCH 32.3 pg (25.0-35.0) 05/23/18 07:00 MCHC 32.8 g/dl (31.0-37.0) 05/23/18 07:00 RDW 14.9 % (11.5-14.5) H 05/23/18 07:00 Plt Count 330 10^3/uL (120.0-450.0) 05/23/18 07:00 MPV 10.5 fl (7.0-11.0) 05/23/18 07:00 Neut % (Auto) 80.9 % (50.0-68.0) H 05/23/18 07:00 Lymph % (Auto) 10.6 % (22.0-35.0) L 05/23/18 07:00 Archer % (Auto) 8.2 % (1.0-6.0) H 05/23/18 07:00 Eos % (Auto) 0.2 % (1.5-5.0) L 05/23/18 07:00 Baso % (Auto) 0.1 % (0.0-3.0) 05/23/18 07:00 Lymph # (Auto) 1.8 (1.2-3.4) 05/23/18 07:00 Archer # (Auto) 1.4 (0.1-0.6) H 05/23/18 07:00 Eos # (Auto) 0.0 (0.0-0.7) 05/23/18 07:00 Baso # (Auto) 0.01 K/mm3 (0.0-2.0) 05/23/18 07:00 Absolute Neuts (auto) 14.08 (1.4-6.5) H 05/23/18 07:00 Sodium 134 mmol/L (132-148) 05/23/18 07:50 Potassium 4.7 mmol/L (3.6-5.0) 05/23/18 07:50 Chloride 102 mmol/L (98-107) 05/23/18 07:50 Carbon Dioxide 29 mmol/L (21-33) 05/23/18 07:50 Anion Gap 9 (10-20) L 05/23/18 07:50 BUN 17 mg/dL (7-21) 05/23/18 07:50 Creatinine 0.5 mg/dl (0.7-1.2) L 05/23/18 07:50 Est GFR ( Amer) > 60 05/23/18 07:50 Est GFR (Non-Af Amer) > 60 05/23/18 07:50 Random Glucose 119 mg/dL (70-110) H 05/23/18 07:50 Calcium 8.3 mg/dL (8.4-10.5) L 05/23/18 07:50 Total Bilirubin 0.6 mg/dL (0.2-1.3) 05/23/18 07:50 AST 30 U/L (14-36) 05/23/18 07:50 ALT 31 U/L (7-56) 05/23/18 07:50 Alkaline Phosphatase 57 U/L (38-126) 05/23/18 07:50 Lactate Dehydrogenase 504 U/L (333-699) 05/21/18 19:50 Total Creatine Kinase 27 U/L (35-230) L 05/21/18 19:50 Troponin I < 0.01 ng/mL 05/21/18 19:50 Total Protein 6.3 g/dL (5.8-8.3) 05/23/18 07:50 Albumin 3.2 g/dL (3.0-4.8) 05/23/18 07:50 Globulin 3.0 gm/dL 05/23/18 07:50 Albumin/Globulin Ratio 1.1 (1.1-1.8) 05/23/18 07:50 Urine Opiates Screen Positive (NEGATIVE) H 05/22/18 18:30 Urine Methadone Screen Negative (NEGATIVE) 05/22/18 18:30 Ur Barbiturates Screen Negative (NEGATIVE) 05/22/18 18:30 Ur Phencyclidine Scrn Negative (NEGATIVE) 05/22/18 18:30 Ur Amphetamines Screen Negative (NEGATIVE) 05/22/18 18:30 U Benzodiazepines Scrn Positive (NEGATIVE) H 05/22/18 18:30 U Oth Cocaine Metabols Negative (NEGATIVE) 05/22/18 18:30 U Cannabinoids Screen Negative (NEGATIVE) 05/22/18 18:30 Alcohol, Quantitative < 10 mg/dL (0-10) 05/21/18 19:50 Attending/Attestation - Attestation I have personally seen and examined this patient.: Yes I have fully participated in the care of the patient.: Yes I have reviewed all pertinent clinical information, including history, physical exam and plan: Yes Notes (Text): 05/23/18 16:47 Patient was seen and examined with spanish medical interpreter. 47 year old female with PMH of COPD, polysubstance abuse, Hepatitis C, Cirrhosis was admitted with COPD Exacerbation. She has responded well to Neb/steroid and antibiotics. Cough and dyspnea has improved.She is on room air. She is ambulatory. She will be discharged home on tapering dose of steroid , albuterol and Budesonide inhaler. There is no sign of alcohol withdrawal at this time. Issue of ongoing smoking,alcohol and drug abuse was discussed in detail. The issue of compliance with medication and follow up with [facility] was discussed in detail. Prognosis is guarded due to ongoing alcohol/drug abuse and non compliance. 05/23/18 16:51
== END 2018-05-23 15:18 | disposition home or self-care (01) ==
LOC: ED 18:54 → ERH 22:33 → 5RNO 05-22 03:00
PROVIDERS: ADMIT Internal Medicine; ATTEND Internal Medicine
DX: J43.9 Emphysema, unspecified (principal); F10.239 Alcohol dependence with withdrawal, unspecified; I11.0 Hypertensive heart disease with heart failure; I50.9 Heart failure, unspecified; J45.901 Unspecified asthma with (acute) exacerbation; F17.210 Nicotine dependence, cigarettes, uncomplicated; K70.30 Alcoholic cirrhosis of liver without ascites; Z59.0 Homelessness; Z91.14 Patient's other noncompliance with medication regimen; Z82.5 Family history of asthma and other chronic lower respiratory diseases
CPT/HCPCS: 36415; 71045; 80053; 80320; 80324; 80345; 80346; 80349; 80353; 80358; 80361; 82550; 83615; 83992; 84484; 85025; 85027; 93005; 94640; 94760; 96365; 96372; 96375; 96376; 99285; C9113; G0378; J2060; J2920; J2930

== ENCOUNTER 2018-05-29 22:26 | Emergency (ER) | payer MEDICAID ==
[2018-05-29 22:48] VITALS: TEMP 98.6; BMI 30.1
--- NOTE | 2018-05-29 22:52 | ED PDOC ---
Arrival/HPI - General Chief Complaint: Shortness Of Breath Time Seen by Provider: 05/29/18 22:33 Historian: Patient - History of Present Illness Narrative History of Present Illness (Text): 05/29/18 22:51 Fani Chambers is a 47 year old female, whose past medical history includes asthma, COPD, polysubstance abuse, Hepatitis C, and cirrhosis, who presents to the ED complaining of progressively worsening shortness of breath and wheezing today. Patient states symptoms are consistent with previous episodes of asthma/COPD. Patient also complaining of upper abdominal pain. Patient denies any fever, chills, nausea, vomiting, diarrhea, urinary symptoms, back pain, neck pain, headache, dizziness, or any other complaints. Time/Duration: Other (tonight) Symptom Onset: Gradual Symptom Course: Unchanged Activities at Onset: Light Past Medical History - Provider Review Nursing Documentation Reviewed: Yes - Infectious Disease Hx of Infectious Diseases: None - Tetanus Immunization Tetanus Immunization: Unknown - Reproductive Currently : No - Cardiac Hx Cardiac Disorders: Yes Hx Congestive Heart Failure: Yes Hx Hypertension: Yes - Pulmonary Hx Respiratory Disorders: Yes Hx Asthma: Yes Hx Bronchitis: Yes Hx Chronic Obstructive Pulmonary Disease (COPD): Yes Hx Emphysema: Yes Other/Comment: pneumothorax with chest tube - Neurological Hx Neurological Disorder: No Hx Seizures: No - HEENT Hx HEENT Disorder: No - Renal Hx Renal Disorder: No - Endocrine/Metabolic Hx Endocrine Disorders: No - Hematological/Oncological Hx Blood Disorders: Yes Hx Hepatitis C: Yes - Integumentary Hx Dermatological Disorder: No - Musculoskeletal/Rheumatological Hx Musculoskeletal Disorders: Yes Hx Falls: Yes Hx Fractures: Yes (right ankle, right knnee) - Gastrointestinal Hx Gastrointestinal Disorders: Yes Hx Pancreatitis: No (denies) - Genitourinary/Gynecological Hx Genitourinary Disorders: No Hx Sexually Transmitted Diseases: No - Psychiatric Hx Psychophysiologic Disorder: Yes Hx Anxiety: Yes Hx Depression: Yes Hx Substance Use: Yes (herorin 2 weeks ago) Other/Comment: methadone, heorin and alcohol abuse - Surgical History Hx Appendectomy: Yes Other/Comment: tonsillectomy - Anesthesia Hx Anesthesia: Yes Hx Anesthesia Reactions: No Hx Malignant Hyperthermia: No - Suicidal Assessment Feels Threatened In Home Enviroment: No Family/Social History - Physician Review Nursing Documentation Reviewed: Yes Family/Social History: Unknown Family HX Smoking Status: Smoker Currrent Status Unknown Hx Alcohol Use: Yes (4 cans (25oz each) daily) Hx Substance Use: Yes (herorin 2 weeks ago) Substance used: heroin Hx Substance Use Treatment: Yes Allergies/Home Meds Allergies/Adverse Reactions: Allergies No Known Allergies Allergy (Verified 06/02/18 22:53) Review of Systems - Physician Review All systems were reviewed & negative as marked: Yes - Review of Systems Constitutional: Normal. absent: Fevers Eyes: Normal ENT: Normal Respiratory: SOB, Wheezing Cardiovascular: Normal. absent: Chest Pain Gastrointestinal: Abdominal Pain. absent: Nausea, Vomiting Genitourinary Female: Normal. absent: Dysuria, Frequency, Hematuria, Urine Output Changes Musculoskeletal: Normal. absent: Back Pain, Neck Pain Skin: Normal. absent: Rash Neurological: Normal. absent: Headache, Dizziness Endocrine: Normal Hemo/Lymphatic: Normal Psychiatric: Normal Physical Exam Vital Signs Reviewed: Yes Vital Signs Temp Pulse Resp BP Pulse Ox 05/29/18 22:42 98.6 F 117 H 18 86/50 L 95 Temperature: Afebrile Blood Pressure: Hypotensive Pulse: Regular Respiratory Rate: Normal Appearance: Positive for: Well-Appearing, Non-Toxic, Comfortable Pain Distress: None Mental Status: Positive for: Alert and Oriented X 3 - Systems Exam Head: Present: Atraumatic, Normocephalic Pupils: Present: PERRL Extroacular Muscles: Present: EOMI Conjunctiva: Present: Normal Mouth: Present: Moist Mucous Membranes Neck: Present: Normal Range of Motion Respiratory/Chest: Present: Wheezes. No: Respiratory Distress, Accessory Muscle Use Cardiovascular: Present: Regular Rate and Rhythm, Normal S1, S2. No: Murmurs Abdomen: Present: Tenderness (RUQ tenderness). No: Distention, Peritoneal Signs Back: Present: Normal Inspection Upper Extremity: Present: Normal Inspection. No: Cyanosis, Edema Lower Extremity: Present: Normal Inspection. No: Edema Neurological: Present: GCS=15, CN II-XII Intact, Speech Normal Skin: Present: Warm, Dry, Normal Color. No: Rashes Psychiatric: Present: Alert, Oriented x 3, Normal Insight, Normal Concentration Medical Decision Making ED Course and Treatment: 05/29/18 22:51 Impression: 47 year old female complaining of progressively worsening shortness of breath, wheezing, and upper abdominal pain. Plan: -- EKG -- CT Abdomen and Pelvis -- Labs, cardiac enzymes, amylase, lipase -- Urinalysis -- Duoneb -- IV fluids -- Solu-medrol -- Reassess and disposition Prior Visits: Notes and results from previous visits were reviewed. Progress Notes: 05/29/18 23:05 Pt refused EJ. PROCEDURE: VENIPUNCTURE Performed by the emergency provider. Consent: Informed consent, after discussion of the risks, benefits, and alternatives to the procedure, was obtained verbally from the patient prior to procedure. Timeout: A timeout to verify the correct patient, procedure, and site was performed immediately prior to the procedure. Indication: Lack of adequate venous access. Skin Preparation: Hand hygiene performed prior to venous catheter insertion. The area was cleansed and prepped with alcohol swabs. Location: right chest wall Technique: A 24 gauge catheter was placed into the right chest wall. Successful placement: YES. Good blood return, flushes well. Post-procedure: Patient tolerated the procedure well with no immediate complications. 05/29/18 23:14 Reviewed EKG, NSR at [address]-segment elevations or depressions, no T-wave inversions, normal intervals. 05/30/18 03:00 Chest X-ray reviewed, shows no acute processes. - EKG Interpretation Interpreted by ED Physician: Yes Type: 12 lead EKG - Scribe Statement The provider has reviewed the documentation as recorded by the Jc Rosales Provider Scribe Attestation: All medical record entries made by the Scribe were at my direction and personally dictated by me. I have reviewed the chart and agree that the record accurately reflects my personal performance of the history, physical exam, medical decision making, and the department course for this patient. I have also personally directed, reviewed, and agree with the discharge instructions and disposition. Disposition/Present on Arrival - Present on Arrival Any Indicators Present on Arrival: No History of DVT/PE: No History of Uncontrolled Diabetes: No Urinary Catheter: No History of Decub. Ulcer: No History Surgical Site Infection Following: None - Disposition Have Diagnosis and Disposition been Completed?: Yes Diagnosis: Asthma attack Disposition: HOME/ ROUTINE Disposition Time: 06:30 Patient Problems: Current Active Problems Problem Status Onset COPD exacerbation Chronic Polysubstance abuse Chronic Condition: IMPROVED Discharge Instructions (ExitCare): Asthma in Adults Forms: [employer] ([place])
[2018-05-29] MEDS: Albuterol-Ipratrop 3 mg / 0.5 (3 ml) UD IH SCH ×2 (23:00→23:20)
[2018-05-29] MEDS ORDERED: Sodium Chloride 0.9% 1,000 ML IV SCH (23:00)
[2018-05-29] MEDS ORDERED: Albuterol-Ipratrop 3 mg / 0.5 (3 ml) UD ONE (23:01)
[2018-05-29 23:29] LABS: ARTERIAL BLOOD GAS HCO3 27.6 mmol/L (21-28); ARTERIAL BLOOD GAS HEMOGLOBIN 14.3 g/dL (11.7-17.4); ARTERIAL BLOOD GAS O2 CONTENT 19.1 ML/dl (15-23); ARTERIAL BLOOD GAS O2 SAT 100.4 % (95-98); ARTERIAL BLOOD GAS PCO2 50 mm/Hg (35-45); ARTERIAL BLOOD GAS PH 7.35 (7.35-7.45); ARTERIAL BLOOD GAS TCO2 29.1 mmol.L (22-28)
[2018-05-29 23:31] LABS: BASO # 0.05 K/mm3 (0.0-2.0); BASO % 0.3 % (0.0-3.0); EOS # 0.3 (0.0-0.7); EOS % 1.9 % (1.5-5.0); HEMOGLOBIN 13.9 g/dL (12.0-16.0); LYMPH # 5.2 (1.2-3.4); MEAN CELL VOLUME 99.1 fl (80.0-105.0); MEAN CORPUSCULAR HEMOGLOBIN 32.2 pg (25.0-35.0); MEAN CORPUSCULAR HGB CONC 32.5 g/dl (31.0-37.0); MONO # 1.4 (0.1-0.6); MONO % 8.3 % (1.0-6.0); RBC 4.32 10^6/uL (3.5-6.1); RED CELL DISTRIBUTION WIDTH 14.7 % (11.5-14.5); WHITE BLOOD COUNT 17.2 10^3/uL (4.5-11.0)
[2018-05-29 23:35] LABS: INR 0.96; PROTHROMBIN TIME 10.7 SECONDS (9.4-12.5)
[2018-05-29 23:50] LABS: TROPONIN I < 0.01 ng/mL
[2018-05-29 23:56] LABS: ALB/GLOB RATIO 1.2 (1.1-1.8); ALBUMIN 3.5 g/dL (3.0-4.8); ALT/SGPT 48 U/L (7-56); AMYLASE 102 U/L (35-125); AST/SGOT 38 U/L (14-36); BLOOD UREA NITROGEN 9 mg/dL (7-21); CALCIUM 8.3 mg/dL (8.4-10.5); GFR NON-AFRICAN AMERICAN > 60; LIPASE 43 U/L (23-300)
[2018-05-30 01:34] LABS: URINE BILIRUBIN NEGATIVE (NEGATIVE); URINE BLOOD NEGATIVE (NEGATIVE); URINE GLUCOSE (UA) NEGATIVE (NEGATIVE); URINE LEUKOCYTE ESTERASE NEGATIVE Leu/uL (NEGATIVE); URINE PROTEIN NEGATIVE mg/dL (<30 mg/dL); URINE UROBILINOGEN 0.2 E.U./dL (<1 E.U./dL)
[2018-05-30 01:48] LABS: URINE APPEARANCE CLEAR (CLEAR); URINE COLOR YELLOW (YELLOW)
[2018-05-30 06:48] VITALS: BP 115/68; PULSE 89; RESP 18; O2SAT 96
--- NOTE | 2018-05-30 10:08 | CARD ---
APPROVED REPORT Date of service: 05/29/2018 EKG Measurement Heart [id number] <Conclusion> Normal sinus rhythm Normal ECG
--- NOTE | 2018-05-30 10:43 | RAD ---
Date of service: 05/30/2018 HISTORY: sob COMPARISON: 05/21/2018 TECHNIQUE: Chest PA and lateral FINDINGS: LUNGS: No active pulmonary disease. PLEURA: No significant pleural effusion identified. No pneumothorax apparent. CARDIOVASCULAR: Aortic calcification Normal cardiac size. No pulmonary vascular congestion. OSSEOUS STRUCTURES: No significant abnormalities. VISUALIZED UPPER ABDOMEN: Normal. OTHER FINDINGS: None. IMPRESSION: No active disease.
--- NOTE | 2018-05-30 13:18 | CT ---
Date of service: 05/30/2018 PROCEDURE: CT Abdomen and Pelvis without intravenous contrast HISTORY: Right upper quadrant pain COMPARISON: 04/03/2017. TECHNIQUE: CT scan of the abdomen and pelvis was performed without administration of intravenous contrast. Oral contrast was not administered. Coronal and sagittal reformatted images were obtained. Radiation dose: Total exam DLP = 510.13 mGy-cm. This CT exam was performed using one or more of the following dose reduction techniques: Automated exposure control, adjustment of the mA and/or kV according to patient size, and/or use of iterative reconstruction technique. FINDINGS: LOWER THORAX: The visualized lungs are clear. LIVER: Mild hepatomegaly. No gross lesion or ductal dilatation. GALLBLADDER AND BILE DUCTS: There is a large peripherally calcified gallstone. PANCREAS: Unremarkable. No gross lesion or ductal dilatation. SPLEEN: Normal in size. ADRENALS: No discrete nodule. KIDNEYS AND URETERS: Unremarkable. No hydronephrosis. No solid mass. VASCULATURE: Unremarkable. No aortic aneurysm. No aortic atherosclerotic calcification or mural plaque present. BOWEL: The small bowel loops are normal in caliber. The colon is unremarkable. No obstruction. No gross mural thickening. APPENDIX: Normal appendix. PERITONEUM: No free fluid. No free air. LYMPH NODES: No enlarged lymph nodes. BLADDER: Decompressed. REPRODUCTIVE: Anteverted lobular uterus with left lateral wall fibroid. BONES: No acute fracture. OTHER FINDINGS: Small fat containing umbilical hernia. IMPRESSION: Cholelithiasis. Question of fibroid uterus.
== END 2018-05-30 06:40 | disposition home or self-care (01) ==
LOC: ED 22:26
DX: J45.909 Unspecified asthma, uncomplicated (principal); I50.9 Heart failure, unspecified; I10 Essential (primary) hypertension; B19.20 Unspecified viral hepatitis C without hepatic coma
CPT/HCPCS: 36600; 71046; 74176; 80053; 81003; 81025; 82150; 82550; 82803; 83615; 83690; 84484; 85025; 85610; 85730; 87040; 87804; 93005; 94640; 96374; 99284; J2930

== ENCOUNTER 2018-06-02 15:19 | Inpatient (IN) | payer MEDICAID ==
[2018-06-02 15:27] VITALS: BMI 30.1
--- NOTE | 2018-06-02 16:14 | ED PDOC ---
Arrival/HPI - General Chief Complaint: Shortness Of Breath Time Seen by Provider: 06/02/18 15:27 Historian: Patient - History of Present Illness Narrative History of Present Illness (Text): 06/02/18 16:07 A 47 year old female, whose past medical history includes COPD, asthma, and polysubstance abuse, presents to the emergency department complaining of shortness of breath and substance abuse. Patient reports she sniffed 1 bag of heroin today and this happened soon after. Patient reports associated chest tightness, warm body sensation and cough. Patient denies any headache, or any other complaints. No PMD Time/Duration: Other (earlier today) Symptom Onset: Gradual Symptom Course: Unchanged Activities at Onset: Significant Context: Street Past Medical History - Provider Review Nursing Documentation Reviewed: Yes - Infectious Disease Hx of Infectious Diseases: None - Tetanus Immunization Tetanus Immunization: Unknown - Reproductive Currently : Unknown - Cardiac Hx Cardiac Disorders: Yes Hx Congestive Heart Failure: Yes Hx Hypertension: Yes - Pulmonary Hx Respiratory Disorders: Yes Hx Asthma: Yes Hx Bronchitis: Yes Hx Chronic Obstructive Pulmonary Disease (COPD): Yes Hx Emphysema: Yes Other/Comment: pneumothorax with chest tube - Neurological Hx Neurological Disorder: No Hx Seizures: No - HEENT Hx HEENT Disorder: No - Renal Hx Renal Disorder: No - Endocrine/Metabolic Hx Endocrine Disorders: No - Hematological/Oncological Hx Blood Disorders: Yes Hx Hepatitis C: Yes - Integumentary Hx Dermatological Disorder: No - Musculoskeletal/Rheumatological Hx Musculoskeletal Disorders: Yes Hx Falls: Yes Hx Fractures: Yes (right ankle, right knnee) - Gastrointestinal Hx Gastrointestinal Disorders: Yes Hx Pancreatitis: No (denies) - Genitourinary/Gynecological Hx Genitourinary Disorders: No Hx Sexually Transmitted Diseases: No - Psychiatric Hx Psychophysiologic Disorder: Yes Hx Anxiety: Yes Hx Depression: Yes Hx Substance Use: Yes (herorin 2 weeks ago) Other/Comment: methadone, heorin and alcohol abuse - Surgical History Hx Appendectomy: Yes Other/Comment: tonsillectomy - Anesthesia Hx Anesthesia: Yes Hx Anesthesia Reactions: No Hx Malignant Hyperthermia: No - Suicidal Assessment Feels Threatened In Home Enviroment: No Family/Social History - Physician Review Nursing Documentation Reviewed: Yes Family/Social History: No Known Family HX Smoking Status: Smoker Currrent Status Unknown Hx Alcohol Use: Yes (4 cans (25oz each) daily) Hx Substance Use: Yes (herorin 2 weeks ago) Substance used: heroin Hx Substance Use Treatment: Yes Allergies/Home Meds Allergies/Adverse Reactions: Allergies No Known Allergies Allergy (Verified 05/29/18 22:42) Review of Systems - Physician Review All systems were reviewed & negative as marked: Yes - Review of Systems Constitutional: absent: Fevers Respiratory: SOB, Cough Cardiovascular: Chest Pain (chest tightness) Neurological: absent: Headache Physical Exam Vital Signs Reviewed: Yes Vital Signs Temp Pulse Resp BP Pulse Ox 06/02/18 15:27 98.2 F 108 H 18 129/72 96 Temperature: Afebrile Blood Pressure: Normal Pulse: Tachycardic Respiratory Rate: Normal Appearance: Positive for: Ill-Appearing (``) Pain Distress: Moderate Mental Status: Positive for: Alert and Oriented X 3, other (speaking full sentences) - Systems Exam Head: Present: Atraumatic, Normocephalic Pupils: Present: PERRL Extroacular Muscles: Present: EOMI Conjunctiva: Present: Normal Respiratory/Chest: Present: Wheezes (wheezing bilaterally), Tachypneic (mildly tachypnic), Other (decreased air entry, 90% oxygen saturation on room air) Cardiovascular: Present: Regular Rate and Rhythm, Normal S1, S2. No: Murmurs Abdomen: No: Tenderness, Distention, Peritoneal Signs Back: Present: Normal Inspection Upper Extremity: Present: Normal Inspection. No: Cyanosis, Edema Lower Extremity: No: Edema Neurological: Present: GCS=15, CN II-XII Intact, Speech Normal, Motor Func Grossly Intact, Normal Sensory Function, Other (no tremors) Skin: No: Other (no track clarke on arm) Psychiatric: Present: Alert, Oriented x 3, Normal Insight, Normal Concentration Medical Decision Making ED Course and Treatment: 06/02/18 16:09 Impression: 47 year old female presenting to the emergency room for substance abuse and shortness of breath. Differential Diagnosis included but are not limited to: COPD exacerbation secondary to heroin use Plan: -- VBG -- EKG -- Labs -- CBC -- Chest X-ray -- Duoneb -- Solumedrol -- Blood culture -- Reassess and disposition Prior Visits: Notes and results from previous visits were reviewed. Progress Notes: 06/02/18 16:09 EKG: Ordered, reviewed, and independently interpreted the EKG. Rate : 111 BPM Rhythm : Sinus tachycardia Interpretation : No ST-segment elevations, otherwise normal. 06/02/18 17:15 Patient saturating 88% on RA after 3 duonebsd. 4th Albuterl tx ordered. Will continue to monitor. 06/02/18 18:34 Despite several doses of treatments she continues to desaturate to 89-90% on RA. She will continue on 2L NC. Case discussed with Dr. Watson who will place the patient on observation. - Critical Care Critical Care Minutes: 30 minutes - Scribe Statement The provider has reviewed the documentation as recorded by the Scribe Sintia Ortiz All medical record entries made by the Scribe were at my direction and personally dictated by me. I have reviewed the chart and agree that the record accurately reflects my personal performance of the history, physical exam, medical decision making, and the department course for this patient. I have also personally directed, reviewed, and agree with the discharge instructions and disposition. Disposition/Present on Arrival - Present on Arrival Any Indicators Present on Arrival: No History of DVT/PE: No History of Uncontrolled Diabetes: No Urinary Catheter: No History of Decub. Ulcer: No History Surgical Site Infection Following: None - Disposition Have Diagnosis and Disposition been Completed?: Yes Diagnosis: COPD exacerbation, Polysubstance abuse Disposition Time: 18:35 Patient Plan: Observation Condition: FAIR Forms: [employer] (Serbian)
[2018-06-02] MEDS: Albuterol-Ipratrop 3 mg / 0.5 (3 ml) UD IH SCH ×3 (16:16→16:45)
[2018-06-02 16:23] LABS: BASO # 0.04 K/mm3 (0.0-2.0); BASO % 0.3 % (0.0-3.0); EOS # 0.2 (0.0-0.7); HEMOGLOBIN 14.3 g/dL (12.0-16.0); LYMPH # 3.8 (1.2-3.4); MEAN CELL VOLUME 100.5 fl (80.0-105.0); MEAN CORPUSCULAR HEMOGLOBIN 32.2 pg (25.0-35.0); MEAN CORPUSCULAR HGB CONC 32.1 g/dl (31.0-37.0); MEAN PLATELET VOLUME 9.8 fl (7.0-11.0); MONO # 1.4 (0.1-0.6); MONO % 9.7 % (1.0-6.0); RBC 4.44 10^6/uL (3.5-6.1); RED CELL DISTRIBUTION WIDTH 15.2 % (11.5-14.5); WHITE BLOOD COUNT 14.8 10^3/uL (4.5-11.0)
[2018-06-02 16:36] LABS: ALB/GLOB RATIO 1.2 (1.1-1.8); ALBUMIN 3.9 g/dL (3.0-4.8); ALT/SGPT 69 U/L (7-56); AST/SGOT 82 U/L (14-36); BLOOD UREA NITROGEN 8 mg/dL (7-21); CALCIUM 7.7 mg/dL (8.4-10.5); GFR NON-AFRICAN AMERICAN > 60
[2018-06-02] MEDS ORDERED: Albuterol 0.083% Inhal Sol (2.5 mg/3 mL) UD IH STA (17:12)
[2018-06-02] MEDS ORDERED: Albuterol-Ipratrop 3 mg / 0.5 (3 ml) UD IH PRN ×2 (18:41→20:01)
--- NOTE | 2018-06-02 19:32 | CP.PCM.HP ---
History of Present Illness - History of Present Illness History of Present Illness: José Antonio Reed, PGY1 H&P for Dr. Louise cc: "shortness of breath" Patient is a 47 year old homeless female, whose past medical history includes asthma, COPD, polysubstance abuse, alcohol withdrawal medication non-compliance, Hep C, liver cirrhosis who presents to the emergency department complaining of shortness of breath and substance abuse. In the ED, Vitals: Temp 98.2, HR 108, BP 129/72, RR 18, SaO2 96%. Medical team evaluated patient in the ED. She said that she was recently at [facility] for the same complaint. She has shortness of breath with chronic cough. Denies chest pain, nausea, vomiting, diarrhea, abdominal pain. She does have some constipation. Her cough is dry and hacking in nature. No sick contacts or recent travel history. She has increased night time awakenings because of her shortness of breath. She also mentions her last drink was a few hours ago. A full 12 point ROS was conducted and unremarkable except as stated above. PMD: none PMhx: asthma, COPD, polysubstance abuse, alcohol withdrawal medication non-com pliance, Hep C, liver cirrhosis PSurgHx: appendectomy, tonsillectomy Allergies: NKDA Home meds: Ventolin inhaler daily Fam hx: Grandmother has COPD Soc hx: Current smoker 1/2 PPD for more than 30 y, heavy alcohol user, and marijuana Present on Admission - Present on Admission Any Indicators Present on Admission: No Review of Systems - Review of Systems All systems: reviewed and no additional remarkable complaints except (as per HPI.) Past Patient History - Infectious Disease Hx of Infectious Diseases: None - Tetanus Immunizations Tetanus Immunization: Unknown - Past Medical History & Family History Past Medical History?: Yes - Past Social History Smoking Status: Smoker Currrent Status Unknown - CARDIAC Hx Cardiac Disorders: Yes Hx Congestive Heart Failure: Yes Hx Hypertension: Yes - PULMONARY Hx Respiratory Disorders: Yes Hx Asthma: Yes Hx Bronchitis: Yes Hx Chronic Obstructive Pulmonary Disease (COPD): Yes Hx Emphysema: Yes Other/Comment: pneumothorax with chest tube - NEUROLOGICAL Hx Neurological Disorder: No Hx Seizures: No - HEENT Hx HEENT Problems: No - RENAL Hx Chronic Kidney Disease: No - ENDOCRINE/METABOLIC Hx Endocrine Disorders: No - HEMATOLOGICAL/ONCOLOGICAL Hx Blood Disorders: Yes Hx Hepatitis C: Yes - INTEGUMENTARY Hx Dermatological Problems: No - MUSCULOSKELETAL/RHEUMATOLOGICAL Hx Musculoskeletal Disorders: Yes Hx Falls: Yes Hx Fractures: Yes (right ankle, right knnee) - GASTROINTESTINAL Hx Gastrointestinal Disorders: Yes Hx Pancreatitis: No (denies) - GENITOURINARY/GYNECOLOGICAL Hx Genitourinary Disorders: No Hx Sexually Transmitted Disorders: No - PSYCHIATRIC Hx Psychophysiologic Disorder: Yes Hx Anxiety: Yes Hx Depression: Yes Hx Substance Use: Yes (herorin 2 weeks ago) Other/Comment: methadone, heorin and alcohol abuse - SURGICAL HISTORY Hx Appendectomy: Yes Other/Comment: tonsillectomy - ANESTHESIA Hx Anesthesia: Yes Hx Anesthesia Reactions: No Hx Malignant Hyperthermia: No Meds Allergies/Adverse Reactions: Allergies Allergy/AdvReac Type Severity Reaction Status Date / Time No Known Allergies Allergy Verified 05/29/18 22:42 Physical Exam - Constitutional Appears: No Acute Distress - Head Exam Head Exam: ATRAUMATIC, NORMAL INSPECTION, NORMOCEPHALIC - Eye Exam Eye Exam: EOMI, Normal appearance - ENT Exam ENT Exam: Mucous Membranes Moist - Respiratory Exam Respiratory Exam: Decreased Breath Sounds, Wheezes (mild wheezes bilaterally ). absent: Accessory Muscle Use - Cardiovascular Exam Cardiovascular Exam: REGULAR RHYTHM, +S1, +S2 - GI/Abdominal Exam GI & Abdominal Exam: Normal Bowel Sounds, Soft. absent: Firm, Guarding, Sana ound, Rigid, Tenderness - Extremities Exam Extremities exam: Positive for: normal capillary refill, normal inspection, pedal pulses present - Neurological Exam Neurological exam: Alert, CN II-XII Intact, Oriented x3, Reflexes Normal - Psychiatric Exam Psychiatric exam: Normal Affect, Normal Mood - Skin Skin Exam: Dry, Intact, Normal Color, Warm Results - Vital Signs Recent Vital Signs: Last Vital Signs Temp 98.2 F 06/02/18 15:27 Pulse 98 H 06/02/18 17:51 Resp 20 06/02/18 17:51 BP 117/74 06/02/18 17:51 Pulse Ox 96 06/02/18 17:51 - Labs Result Diagrams: 06/02/18 16:00 06/02/18 16:00 Labs: Laboratory Results - last 24 hr 06/02/18 06/02/18 16:00 16:00 WBC 14.8 H RBC 4.44 Hgb 14.3 Hct 44.6 MCV 100.5 MCH 32.2 MCHC 32.1 RDW 15.2 H Plt Count 408 MPV 9.8 Neut % (Auto) 63.0 Lymph % (Auto) 26.0 [place] % (Auto) 9.7 H Eos % (Auto) 1.0 L Baso % (Auto) 0.3 Lymph # (Auto) 3.8 H [place] # (Auto) 1.4 H Eos # (Auto) 0.2 Baso # (Auto) 0.04 Absolute Neuts (auto) 9.31 H Sodium 142 Potassium 3.7 Chloride 103 Carbon Dioxide 33 Anion Gap 10 BUN 8 Creatinine 0.7 Est GFR ( Amer) > 60 Est GFR (Non-Af Amer) > 60 Random Glucose 108 Calcium 7.7 L Magnesium 2.0 Total Bilirubin 0.4 AST 82 H D ALT 69 H Alkaline Phosphatase 63 Total Protein 7.0 Albumin 3.9 Globulin 3.1 Albumin/Globulin Ratio 1.2 Assessment & Plan - Assessment and Plan (Free Text) Assessment: Patient is a 47-year-old homeless female with a PMHx asthma, COPD, polysubstance abuse, alcohol withdrawal medication non-compliance, Hep C, liver cirrhosis who presented to the ED for shortness of breath and cough. Patient will be admitted for Asthma vs COPD exacerbation. Plan: Asthma vs COPD Exacerbation - duonebs q6 standing and q4 prn - soloumedrol 40 IVP q12 - azithromycin IVPB daily - Robitussin q4 prn for cough - c/w nasal cannula - mildly elevated leukocytosis, monitor - f/u cbc and cmp in morning - CXR: (ready by me) no consolidation or infiltrate. Evidence of COPD/Asthma. - Legionella urine antigen ordered - Procal level ordered - f/u blood cx and sputum cx - Hx poorly controlled asthma and COPD with medication non-compliance EtOH Intoxication/Withdrawal - Ativan 2mg IVP q4 prn - Banana bag @ 75 cc/hr - CIWA protocol, seizure, aspiration, fall precautions - EtOH level 235 in ED - Mildly elevated transaminitis due to EtOH - monitor for withdrawal signs and symptoms Hx Polysubstance Abuse and Medication Non-compliance - Educated patient on smoking/substance abuse cessation - Utox +benzo, +opiates DVT ppx: scd GI ppx: ptx Diet: HHD Dispo: patient will be monitored on the floor. Case was discussed and reviewed with Attending Physician, Dr. Louise
[2018-06-02 19:52] LABS: BARBITURATES, UR NEGATIVE (NEGATIVE); BENZODIAZEPINES, UR POSITIVE (NEGATIVE); OPIATES, UR POSITIVE (NEGATIVE); PHENCYCLIDINE, UR NEGATIVE (NEGATIVE)
[2018-06-02] MEDS ORDERED: Multivitamin (MVI) 10 ML, Thiamine 100 MG, Folic Acid 1 MG in Sodium Chloride 0.9% 1,00... IV ONE ×2 (20:06→20:33)
[2018-06-02] MEDS ORDERED: POLYETHYLENE GLYCOL 3350 17 GM/Dose PACKET PO SCH (20:15)
[2018-06-02] MEDS: guaiFENesin 100 mg/5 ml Syrup UD PO PRN (22:44)
[2018-06-02] MEDS ORDERED: Pneumococcal 23-Valent Vaccine IM ONE (23:39)
[2018-06-02] MEDS ORDERED: Influenza Vaccine 60 mcg/0.5 mL SYR (4YR UP) IM ONE (23:39)
[2018-06-03] MEDS: Albuterol-Ipratrop 3 mg / 0.5 (3 ml) UD IH SCH ×4 (03:00→19:22)
[2018-06-03] MEDS: Pantoprazole 40 mg EC Tab PO SCH (06:36)
[2018-06-03 07:06] LABS: HEMOGLOBIN 14.1 g/dL (12.0-16.0); MEAN CELL VOLUME 101.6 fl (80.0-105.0); MEAN CORPUSCULAR HGB CONC 31.5 g/dl (31.0-37.0); MEAN PLATELET VOLUME 10.7 fl (7.0-11.0); RBC 4.4 10^6/uL (3.5-6.1); RED CELL DISTRIBUTION WIDTH 15.2 % (11.5-14.5); WHITE BLOOD COUNT 11.5 10^3/uL (4.5-11.0)
--- NOTE | 2018-06-03 07:07 | CP.PCM.PN ---
<MoraesJorge hawkinsil - Last Filed: 06/03/18 10:36> Subjective - Date & Time of Evaluation Date of Evaluation: 06/03/18 Time of Evaluation: 09:45 - Subjective Subjective: Parveen Moraes Internal Medicine Resident- Progress Note On Behalf of Hospitalist Team Subjective: Patient seen and examined at bedside. Resting comfortably in bed. No acute overnight events. Patient states SOB has improved relative to baseline. Offers no new complaints at this time. Denies fever, chills, chest pain, abdominal pain, nausea, vomiting, diarrhea, and constipation. 12-point review of systems negative except as indicated in the HPI Physical Examination: - Constitutional Appears: No Acute Distress - Head Exam Head Exam: ATRAUMATIC, NORMOCEPHALIC - Eye Exam Eye Exam: EOMI, Normal appearance, PERRL - ENT Exam ENT Exam: Mucous Membranes Moist - Neck Exam Neck exam: Positive for: Full Rom, Normal Inspection - Respiratory Exam Respiratory Exam: diffuse expiratory wheezes bilaterally, normal breathing pattern, absent: Decreased Breath Sounds, Rales, Rhonchi - Cardiovascular Exam Cardiovascular Exam: RRR +S1, +S2. absent: Systolic Murmur - GI/Abdominal Exam GI & Abdominal Exam: Soft absent: Distended, Firm, Mass, Rebound, Rigid - Extremities Exam Extremities exam: Positive for: normal capillary refill, pedal pulses present. Negative for: calf tenderness, pedal edema - Back Exam Back exam: absent: CVA tenderness (L), CVA tenderness (R), rash noted, tenderness - Neurological Exam Neurological exam: Alert, CN II-XII Intact, Oriented x3 - Skin Skin Exam: Dry, Intact, Normal Color, Warm Assessment and Plan: Patient is a 47 year old female with past medical history of COPD, polysubstance abuse, alcohol abuse, Hep C, liver cirrhosis who was admitted for evaluation and treatment of shortness of breath and cough. COPD Exacerbation - continue duonebs 3mg/0.5ml q6 scheduled and q4 prn SOB - decrease solumedrol from 40mg IVP q12 to 30mg IVP q12h - continue azithromycin 500mg IVPB daily - continue Robitussin 100mg q4 prn for cough - c/w oxygen supplementation 2 L via nasal cannula - Legionella urine antigen ordered and pending - Procal level ordered and pending - blood culture and sputum culture ordered and pending EtOH Abuse - Ativan 2mg IVP q4 prn etoh withdrawl symptoms - continue CIWA protocol, seizure, aspiration, fall precautions - continue to monitor for withdrawal signs and symptoms Elevated LFTs - likely secondary to ETOH use - normalizing, monitor closely via CMP Hx Polysubstance Abuse and Medication Non-compliance - patient education provided on danger of continued smoking/ illicit substance abuse - smoking/ illicit substance abuse cessation advised Prophylaxis - DVT- SCDs - GI- not indicated Patient seen, case reviewed with, and plan approved by attending physician, Dr. Watson. Objective - Vital Signs/Intake and Output Vital Signs (last 24 hours): Temp Pulse Resp BP Pulse Ox 98.2 F 20 L 20 117/74 96 06/02/18 15:27 06/02/18 23:21 06/02/18 23:21 06/02/18 17:51 06/02/18 17:51 - Medications Medications: Current Medications Albuterol/Ipratropium (Duoneb 3 Mg/0.5 Mg (3 Ml) Ud) 3 ml IH Q4H PRN PRN Reason: Shortness of Breath Albuterol/Ipratropium (Duoneb 3 Mg/0.5 Mg (3 Ml) Ud) 3 ml IH [id number] CRAIG Last Admin: 06/03/18 03:00 Dose: 3 ml Guaifenesin (Robitussin) 100 mg PO Q4H PRN PRN Reason: Cough Last Admin: 06/02/18 22:44 Dose: 100 mg Azithromycin (Zithromax 500mg In Ns) 500 mg in 250 mls @ 167 mls/hr IVPB DAILY CRAIG; Protocol Multivitamins/Vitamin C 10 ml/Thiamine HCl 100 mg/ Folic Acid 1 mg/ Sodium Chloride 1,011.2 mls @ 75 mls/hr IV .[id number] ONE Stop: 06/03/18 09:34 Last Admin: 06/02/18 22:43 Dose: 75 mls/hr Lorazepam (Ativan) 2 mg IVP Q4H PRN; Protocol PRN Reason: Anxiety Last Admin: 06/03/18 06:35 Dose: 2 mg Methylprednisolone (Solu-Medrol) 40 mg IVP Q12 CRAIG Pantoprazole Sodium (Protonix Ec Tab) 40 mg PO 0600 CRAIG Last Admin: 06/03/18 06:36 Dose: 40 mg Polyethylene Glycol (Miralax) 17 gm PO DAILY CRAIG - Labs Labs: 06/02/18 16:00 06/02/18 16:00 <Karolina Watson - Last Filed: 06/03/18 15:07> Objective - Vital Signs/Intake and Output Vital Signs (last 24 hours): Temp Pulse Resp BP Pulse Ox 97.9 F 90 20 140/95 H 95 06/03/18 06:00 06/03/18 06:00 06/03/18 06:00 06/03/18 06:00 06/03/18 06:00 - Medications Medications: Current Medications Albuterol/Ipratropium (Duoneb 3 Mg/0.5 Mg (3 Ml) Ud) 3 ml IH Q4H PRN PRN Reason: Shortness of Breath Albuterol/Ipratropium (Duoneb 3 Mg/0.5 Mg (3 Ml) Ud) 3 ml IH [id number] [facility] Last Admin: 06/03/18 14:22 Dose: Not Given Guaifenesin (Robitussin) 100 mg PO Q4H PRN PRN Reason: Cough Last Admin: 06/02/18 22:44 Dose: 100 mg Azithromycin (Zithromax 500mg In Ns) 500 mg in 250 mls @ 167 mls/hr IVPB DAILY CRAIG; Protocol Last Admin: 06/03/18 09:45 Dose: 167 mls/hr Lorazepam (Ativan) 2 mg IVP Q4H PRN; Protocol PRN Reason: Anxiety Last Admin: 06/03/18 10:51 Dose: 2 mg Methylprednisolone (Solu-Medrol) 40 mg IVP Q12 CRAIG Last Admin: 06/03/18 09:46 Dose: 40 mg Pantoprazole Sodium (Protonix Ec Tab) 40 mg PO 0600 CRAIG Last Admin: 06/03/18 06:36 Dose: 40 mg Polyethylene Glycol (Miralax) 17 gm PO DAILY CRAIG Last Admin: 06/03/18 09:46 Dose: Not Given - Labs Labs: 06/03/18 06:00 06/03/18 06:00 Attending/Attestation - Attestation I have personally seen and examined this patient.: Yes I have fully participated in the care of the patient.: Yes I have reviewed all pertinent clinical information, including history, physical exam and plan: Yes Notes (Text): 06/03/18 14:58 47 year old homeless female with past medical history of COPD, alcohol abuse and polysubtance abuse presented with alcohol intoxication and COPD exacerbation. Continue with iv steroids and duonebs. She was counselled on smoking cessation. Counselled on risks of continued substance abuse. Counselled on alcohol abstinence. Patient unfortunately fails to comply. Overnight and AM CIWAs are 5-8. Patient is tremulous. Continue with banana bag. Continue with ativan craig/prn for withdrawal symptoms. Karolina Watson MD Hospitalist.
[2018-06-03 07:39] LABS: ALB/GLOB RATIO 1.3 (1.1-1.8); ALBUMIN 3.9 g/dL (3.0-4.8); ALT/SGPT 64 U/L (7-56); AST/SGOT 59 U/L (14-36); BLOOD UREA NITROGEN 13 mg/dL (7-21); CALCIUM 8.6 mg/dL (8.4-10.5); GFR NON-AFRICAN AMERICAN > 60
--- NOTE | 2018-06-03 08:51 | CARD ---
APPROVED REPORT Date of service: 06/02/2018 EKG Measurement Heart [id number] <Conclusion> Sinus tachycardia Possible Left atrial enlargement Nonspecific T wave abnormality Abnormal ECG
[2018-06-03] MEDS: Azithromycin 500MG/NS 250ml 500 MG/250 ML BAG IVPB SCH (09:45)
[2018-06-03] MEDS: POLYETHYLENE GLYCOL 3350 17 GM/Dose PACKET PO SCH (09:46)
[2018-06-03] MEDS ORDERED: MethylPREDNISolone 40 mg Vial IVP SCH (10:00)
--- NOTE | 2018-06-03 13:19 | RAD ---
Date of service: 06/02/2018 HISTORY: COPD COMPARISON: Comparison chest dated 05/30/2017 FINDINGS: LUNGS: Mild bibasilar atelectasis PLEURA: No significant pleural effusion identified, no pneumothorax apparent. CARDIOVASCULAR: No significant aortic ic atherosclerotic calcification present. Cardiomegaly.. No pulmonary vascular congestion. OSSEOUS STRUCTURES: No significant abnormalities. VISUALIZED UPPER ABDOMEN: Normal. OTHER FINDINGS: None. IMPRESSION: Mild bibasilar atelectasis.
[2018-06-03] MEDS: guaiFENesin 100 mg/5 ml Syrup UD PO PRN (22:12)
[2018-06-03] MEDS: MethylPREDNISolone 40 mg Vial IVP SCH (22:12)
[2018-06-04] MEDS: Albuterol-Ipratrop 3 mg / 0.5 (3 ml) UD IH SCH ×4 (01:00→19:59)
[2018-06-04 06:36] LABS: HEMOGLOBIN 14.3 g/dL (12.0-16.0); MEAN CELL VOLUME 99.8 fl (80.0-105.0); MEAN CORPUSCULAR HEMOGLOBIN 32.3 pg (25.0-35.0); MEAN CORPUSCULAR HGB CONC 32.4 g/dl (31.0-37.0); MEAN PLATELET VOLUME 10.4 fl (7.0-11.0); RBC 4.43 10^6/uL (3.5-6.1); RED CELL DISTRIBUTION WIDTH 14.7 % (11.5-14.5); WHITE BLOOD COUNT 17.2 10^3/uL (4.5-11.0)
[2018-06-04 06:57] LABS: ALB/GLOB RATIO 1.2 (1.1-1.8); ALBUMIN 3.7 g/dL (3.0-4.8); ALT/SGPT 44 U/L (7-56); AST/SGOT 31 U/L (14-36); BLOOD UREA NITROGEN 15 mg/dL (7-21); CALCIUM 8.8 mg/dL (8.4-10.5); GFR NON-AFRICAN AMERICAN > 60
[2018-06-04] MEDS: POLYETHYLENE GLYCOL 3350 17 GM/Dose PACKET PO SCH (09:29)
[2018-06-04] MEDS: MethylPREDNISolone 40 mg Vial IVP SCH ×2 (09:31→21:04)
[2018-06-04] MEDS: Azithromycin 500MG/NS 250ml 500 MG/250 ML BAG IVPB SCH (09:32)
--- NOTE | 2018-06-04 14:43 | CP.PCM.PN ---
<García Barfield - Last Filed: 06/04/18 14:40> Subjective - Date & Time of Evaluation Date of Evaluation: 06/04/18 Time of Evaluation: 14:40 - Subjective Subjective: Internal Medicine Progress Note: Patient seen and assessed at bedside. No acute events noted overnight. Patient reports that her breathing is improved but indicates that she is still not at her baseline. She denies any other complaints and further 12 point ROS unr emarkable at this time. Objective - Vital Signs/Intake and Output Vital Signs (last 24 hours): Temp Pulse Resp BP Pulse Ox 97.9 F 64 18 149/78 98 06/04/18 08:18 06/04/18 08:18 06/04/18 08:18 06/04/18 08:18 06/04/18 08:18 Intake and Output: 06/04/18 06/04/18 06:59 18:59 Intake Total 600 Balance 600 - Medications Medications: Current Medications Albuterol/Ipratropium (Duoneb 3 Mg/0.5 Mg (3 Ml) Ud) 3 ml IH Q4H PRN PRN Reason: Shortness of Breath Last Admin: 06/04/18 10:57 Dose: 3 ml Albuterol/Ipratropium (Duoneb 3 Mg/0.5 Mg (3 Ml) Ud) 3 ml IH [id number] JACK Last Admin: 06/04/18 13:38 Dose: Not Given Guaifenesin (Robitussin) 100 mg PO Q4H PRN PRN Reason: Cough Last Admin: 06/03/18 22:12 Dose: 100 mg Azithromycin (Zithromax 500mg In Ns) 500 mg in 250 mls @ 167 mls/hr IVPB DAILY JACK; Protocol Last Admin: 06/04/18 09:32 Dose: 167 mls/hr Lorazepam (Ativan) 1 mg IVP Q6H PRN; Protocol PRN Reason: Anxiety Methylprednisolone (Solu-Medrol) 20 mg IVP Q12 JACK Nicotine (Nicoderm Cq) 1 patch TD DAILY JACK Last Admin: 06/04/18 09:29 Dose: 1 patch Pantoprazole Sodium (Protonix Ec Tab) 40 mg PO 0600 JACK Last Admin: 06/03/18 06:36 Dose: 40 mg Polyethylene Glycol (Miralax) 17 gm PO DAILY JACK Last Admin: 06/04/18 09:29 Dose: 17 gm - Labs Labs: 06/04/18 06:15 06/04/18 06:15 - Constitutional Appears: Non-toxic, No Acute Distress - Head Exam Head Exam: ATRAUMATIC, NORMOCEPHALIC - Eye Exam Eye Exam: EOMI, Normal appearance, PERRL Pupil Exam: NORMAL ACCOMODATION, PERRL - ENT Exam ENT Exam: Mucous Membranes Moist - Neck Exam Neck Exam: Full ROM - Respiratory Exam Respiratory Exam: Wheezes (Mild end expiratory with significant interval improvement noted), NORMAL BREATHING PATTERN. absent: Accessory Muscle Use, Chest Wall Tenderness, Decreased Breath Sounds, Clear to Ausculation Bilateral, Prolonged Expiratory Phase, Rales, Rhonchi, Respiratory Distress, Stridor - Cardiovascular Exam Cardiovascular Exam: REGULAR RHYTHM, +S1, +S2. absent: Bradycardia, Tachycardia, Irregular Rhythm - GI/Abdominal Exam GI & Abdominal Exam: Soft, Normal Bowel Sounds. absent: Tenderness - Extremities Exam Extremities Exam: absent: Calf Tenderness - Neurological Exam Neurological Exam: Alert, Awake, Oriented x3 - Psychiatric Exam Psychiatric exam: Normal Affect, Normal Mood - Skin Skin Exam: Dry, Intact, Warm Assessment and Plan - Assessment and Plan (Free Text) Assessment: 47 year old female with a past medical history significant for COPD, polysubstance abuse, alcohol abuse, hepatitis C, and liver cirrhosis who presented with cough and SOB and is currently being treated for COPD exacerbation and alcohol withdrawal. Plan: 1. COPD Exacerbation -Continue Duonebs Q6 JACK and Q4 PRN -Continue Zithromax (Day 2) -Tapered Solu-Medrol to 20mg IVP Q12 -Continue oxygen supplementation 2L via NC -Continue Robitussin PRN for cough -Blood cultures and procalcitonin negative -Legionella serology and sputum cultures pending 2. Alcohol Abuse/Withdrawal -Tapered Ativan to 1mg IVP Q6 PRN -Continue CIWA assessments as ordered -Continue fall, seizure and aspiration precautions -Cessation counseling provided 3. History of Tobacco Use Disorder -Continue Nicoderm CQ TD daily -Cessation counseling provided 4. Polysubstance Abuse -See UDS -Cessation counseling provided GI Prophylaxis: Protonix DVT Prophylaxis: SCD's Diet: Heart Healthy Code Status: Full Code Patient seen and case discussed with attending, Dr. Watson. García Barfield PGY2 <Karolina Watson - Last Filed: 06/04/18 15:25> Objective - Vital Signs/Intake and Output Vital Signs (last 24 hours): Temp Pulse Resp BP Pulse Ox 97.9 F 64 18 149/78 98 06/04/18 08:18 06/04/18 08:18 06/04/18 08:18 06/04/18 08:18 06/04/18 08:18 Intake and Output: 06/04/18 06/04/18 06:59 18:59 Intake Total 600 Balance 600 - Medications Medications: Current Medications Albuterol/Ipratropium (Duoneb 3 Mg/0.5 Mg (3 Ml) Ud) 3 ml IH Q4H PRN PRN Reason: Shortness of Breath Last Admin: 06/04/18 10:57 Dose: 3 ml Albuterol/Ipratropium (Duoneb 3 Mg/0.5 Mg (3 Ml) Ud) 3 ml IH [id number] JACK Last Admin: 06/04/18 13:38 Dose: Not Given Guaifenesin (Robitussin) 100 mg PO Q4H PRN PRN Reason: Cough Last Admin: 06/03/18 22:12 Dose: 100 mg Azithromycin (Zithromax 500mg In Ns) 500 mg in 250 mls @ 167 mls/hr IVPB DAILY JACK; Protocol Last Admin: 06/04/18 09:32 Dose: 167 mls/hr Lorazepam (Ativan) 1 mg IVP Q6H PRN; Protocol PRN Reason: Anxiety Methylprednisolone (Solu-Medrol) 20 mg IVP Q12 [facility] Nicotine (Nicoderm Cq) 1 patch TD DAILY JACK Last Admin: 06/04/18 09:29 Dose: 1 patch Pantoprazole Sodium (Protonix Ec Tab) 40 mg PO 0600 JACK Last Admin: 06/03/18 06:36 Dose: 40 mg Polyethylene Glycol (Miralax) 17 gm PO DAILY JACK Last Admin: 06/04/18 09:29 Dose: 17 gm - Labs Labs: 06/04/18 06:15 06/04/18 06:15 Attending/Attestation - Attestation I have personally seen and examined this patient.: Yes I have fully participated in the care of the patient.: Yes I have reviewed all pertinent clinical information, including history, physical exam and plan: Yes Notes (Text): 06/04/18 15:23 47 year old homeless female with past medical history of COPD, alcohol abuse and polysubtance abuse presented with alcohol intoxication and COPD exacerbation. Continue with tapering iv steroids and duonebs. Continue has improved although she still complains of dyspnea on exertion. She was counselled on smoking cessation. Counselled on risks of continued substance abuse. Counselled on alcohol abstinence. Patient unfortunately fails to comply. Continue with banana bag. Patient is still requiring iv ativan for withdrawal symptoms. Continue with tapering ativan jack/prn for withdrawal symptoms. Karolina Watson MD Hospitalist.
[2018-06-04 19:32] VITALS: O2SAT 97
[2018-06-05] MEDS: Pantoprazole 40 mg EC Tab PO SCH ×2 (05:08→05:22)
[2018-06-05 06:53] LABS: HEMOGLOBIN 14.9 g/dL (12.0-16.0); MEAN CELL VOLUME 99.1 fl (80.0-105.0); MEAN CORPUSCULAR HEMOGLOBIN 32.3 pg (25.0-35.0); MEAN CORPUSCULAR HGB CONC 32.6 g/dl (31.0-37.0); MEAN PLATELET VOLUME 10.6 fl (7.0-11.0); RBC 4.61 10^6/uL (3.5-6.1); RED CELL DISTRIBUTION WIDTH 14.9 % (11.5-14.5)
[2018-06-05 07:13] LABS: ALB/GLOB RATIO 1.3 (1.1-1.8); ALBUMIN 3.6 g/dL (3.0-4.8); ALT/SGPT 44 U/L (7-56); AST/SGOT 28 U/L (14-36); BLOOD UREA NITROGEN 16 mg/dL (7-21); CALCIUM 8.7 mg/dL (8.4-10.5); GFR NON-AFRICAN AMERICAN > 60
[2018-06-05 07:51] VITALS: RESP 20
[2018-06-05] MEDS: POLYETHYLENE GLYCOL 3350 17 GM/Dose PACKET PO SCH (09:34)
[2018-06-05] MEDS: MethylPREDNISolone 40 mg Vial IVP SCH (09:37)
[2018-06-05] MEDS: Azithromycin 500MG/NS 250ml 500 MG/250 ML BAG IVPB SCH (09:37)
--- NOTE | 2018-06-05 11:07 | CP.PCM.PN ---
<Uli Juarez - Last Filed: 06/05/18 12:29> Subjective - Date & Time of Evaluation Date of Evaluation: 06/05/18 Time of Evaluation: 11:07 - Subjective Subjective: PGY1 Medicine Progress Note for Dr. Watson Patient was seen and evaluated at bedside this morning. No acute events overnight. Patient complains of chest pain localized to left pectoralis muscle, Patient rates the pain at 9/10 and constant. Patient also says she feels anxious. Patient otherwise is tolerating diet and denies shortness of breath, headache, abdominal pain, fever, chills, nausea/vomiting. Objective - Vital Signs/Intake and Output Vital Signs (last 24 hours): Temp Pulse Resp BP Pulse Ox 97.6 F 67 20 142/98 H 97 06/05/18 07:51 06/05/18 07:51 06/05/18 07:51 06/05/18 07:51 06/05/18 07:51 - Medications Medications: Current Medications Albuterol/Ipratropium (Duoneb 3 Mg/0.5 Mg (3 Ml) Ud) 3 ml IH Q4H PRN PRN Reason: Shortness of Breath Last Admin: 06/04/18 10:57 Dose: 3 ml Albuterol/Ipratropium (Duoneb 3 Mg/0.5 Mg (3 Ml) Ud) 3 ml IH [id number] JACK Last Admin: 06/04/18 19:59 Dose: 3 ml Guaifenesin (Robitussin) 100 mg PO Q4H PRN PRN Reason: Cough Last Admin: 06/03/18 22:12 Dose: 100 mg Azithromycin (Zithromax 500mg In Ns) 500 mg in 250 mls @ 167 mls/hr IVPB DAILY JACK; Protocol Last Admin: 06/05/18 09:37 Dose: 167 mls/hr Lorazepam (Ativan) 1 mg IVP Q6H PRN; Protocol PRN Reason: Anxiety Last Admin: 06/05/18 09:32 Dose: 1 mg Methylprednisolone (Solu-Medrol) 20 mg IVP Q12 JACK Last Admin: 06/05/18 09:37 Dose: 20 mg Nicotine (Nicoderm Cq) 1 patch TD DAILY JACK Last Admin: 06/05/18 09:37 Dose: 1 patch Pantoprazole Sodium (Protonix Ec Tab) 40 mg PO 0600 JACK Last Admin: 06/05/18 05:22 Dose: 40 mg Polyethylene Glycol (Miralax) 17 gm PO DAILY JACK Last Admin: 06/05/18 09:34 Dose: 17 gm - Labs Labs: 06/05/18 06:20 06/05/18 06:20 - Additional Findings Additional findings: - Constitutional Appears: Non-toxic, No Acute Distress - Head Exam Head Exam: ATRAUMATIC, NORMOCEPHALIC - Eye Exam Eye Exam: EOMI, Normal appearance, PERRL Pupil Exam: NORMAL ACCOMODATION, PERRL - ENT Exam ENT Exam: Mucous Membranes Moist - Neck Exam Neck Exam: Full ROM - Respiratory Exam Respiratory Exam: Wheezes (Mild end expiratory with significant interval improvement noted), NORMAL BREATHING PATTERN. absent: Accessory Muscle Use, Chest Wall Tenderness, Decreased Breath Sounds, Clear to Auscultation Bilateral, Prolonged Expiratory Phase, Rales, Rhonchi, Respiratory Distress, Stridor - Cardiovascular Exam Cardiovascular Exam: REGULAR RHYTHM, +S1, +S2. absent: Bradycardia, Tachycardia, Irregular Rhythm - GI/Abdominal Exam GI & Abdominal Exam: Soft, Normal Bowel Sounds. absent: Tenderness - Extremities Exam Extremities Exam: absent: Calf Tenderness - Neurological Exam Neurological Exam: Alert, Awake, Oriented x3 - Psychiatric Exam Psychiatric exam: Normal Affect, Normal Mood - Skin Skin Exam: Dry, Intact, Warm Assessment and Plan - Assessment and Plan (Free Text) Assessment: 47 year old female with a past medical history significant for COPD, polysubstance abuse, alcohol abuse, hepatitis C, and liver cirrhosis who presented with cough and SOB and is currently being treated for COPD exacerbat ion and alcohol withdrawal. Patient is on Zithromax; day 3 Plan: COPD Exacerbation - Continue Duonebs Q6 JACK and Q4 PRN - Continue Zithromax (Day 3) - Tapered Solu-Medrol to 20mg IVP Q12 - Discontinue oxygen supplementation 2L via NC - Reassess without oxygen - OOB - Continue Robitussin PRN for cough - Blood cultures and procalcitonin negative - Legionella serology and sputum cultures pending Chest pain R/O ACS - EKG: sinus tachycardia - Troponin 0900 negative - Troponin 1400 ordered - Patient is asymptomatic upon re-evaluation in afternoon Alcohol Abuse/Withdrawal - Tapered Ativan to 1mg IVP Q6 PRN - Continue CIWA assessments as ordered - Continue fall, seizure and aspiration precautions - Cessation counseling provided History of Tobacco Use Disorder - Continue Nicoderm CQ TD daily - Cessation counseling provided Polysubstance Abuse - UDS positive for benzo, opiates, ETOH - Complete Cessation encouraged; counseling provided PPx: - GI: Protonix - DVT: SCD's - Diet: Heart Healthy - Code Status: Full Code Patient seen and case discussed in detail with attending, Dr. Watson. Uli Juarez PGY1 <Karolina Watson - Last Filed: 06/05/18 17:40> Objective - Vital Signs/Intake and Output Vital Signs (last 24 hours): Temp Pulse Resp BP Pulse Ox 99.8 F H 102 H 20 111/77 97 06/05/18 16:30 06/05/18 16:30 06/05/18 16:30 06/05/18 16:30 06/05/18 16:30 - Medications Medications: Current Medications Albuterol/Ipratropium (Duoneb 3 Mg/0.5 Mg (3 Ml) Ud) 3 ml IH Q4H PRN PRN Reason: Shortness of Breath Last Admin: 06/04/18 10:57 Dose: 3 ml Albuterol/Ipratropium (Duoneb 3 Mg/0.5 Mg (3 Ml) Ud) 3 ml IH [id number] COUNT INCLUDES [facility] Last Admin: 06/05/18 13:55 Dose: 3 ml Azithromycin (Zithromax) 500 mg PO DAILY [facility]CLUDES [facility] Guaifenesin (Robitussin) 100 mg PO Q4H PRN PRN Reason: Cough Last Admin: 06/05/18 11:08 Dose: 100 mg Lorazepam (Ativan) 1 mg IVP Q6H PRN; Protocol PRN Reason: Anxiety Last Admin: 06/05/18 09:32 Dose: 1 mg Methylprednisolone (Solu-Medrol) 20 mg IVP Q12 [facility] Last Admin: 06/05/18 09:37 Dose: 20 mg Nicotine (Nicoderm Cq) 1 patch TD DAILY [facility] Last Admin: 06/05/18 09:37 Dose: 1 patch Pantoprazole Sodium (Protonix Ec Tab) 40 mg PO 0600 [facility] Last Admin: 06/05/18 05:22 Dose: 40 mg Polyethylene Glycol (Miralax) 17 gm PO DAILY [facility] Last Admin: 06/05/18 09:34 Dose: 17 gm - Labs Labs: 06/05/18 06:20 06/05/18 06:20 Attending/Attestation - Attestation I have personally seen and examined this patient.: Yes I have fully participated in the care of the patient.: Yes I have reviewed all pertinent clinical information, including history, physical exam and plan: Yes Notes (Text): 06/05/18 17:38 47 year old homeless female with past medical history of COPD, alcohol abuse and polysubtance abuse presented with alcohol intoxication and COPD exacerbation. Her wheezing is improved on tapering iv steroids and duonebs. She complained of chest pain early this morning. Troponin was negative and EKG did not show any ischemic changes. She was counselled on smoking cessation. Counselled on risks of continued substance abuse. Counselled on alcohol abstinence. Patient unfortunately fails to comply. Continue with tapering ativan jack/prn for withdrawal symptoms. Overnight her CIWA scores have been negative. D/c planning this afternoon if repeat troponin is negative. Karolina Watson MD Hospitalist.
[2018-06-05] MEDS: guaiFENesin 100 mg/5 ml Syrup UD PO PRN (11:08)
[2018-06-05] MEDS: Albuterol-Ipratrop 3 mg / 0.5 (3 ml) UD IH SCH ×2 (11:43→13:55)
--- NOTE | 2018-06-05 15:09 | CP.PCM.DIS ---
<Uli Juarez - Last Filed: 06/05/18 19:30> Provider - Provider Date of Admission: 06/03/18 08:42 Attending physician: Karolina Watson MD Consults: 06/02/18 23:39 Inpatient FOOD CONSULTANT Core Measures Referral Routine Comment: COPD EXACERBATION Physician Instructions: Reason For Exam: EVALUATION Nursing Referral for Wound Care Routine Comment: Physician Instructions: Reason For Exam: EVALUATION Transition In Care/Readmission Reduction Routine Comment: Physician Instructions: Reason For Exam: EVALUATION Time Spent in preparation of Discharge (in minutes): 45 Diagnosis - Discharge Diagnosis (1) COPD (chronic obstructive pulmonary disease) Status: Chronic Priority: Medium (2) Alcohol abuse Status: Chronic Priority: Medium (3) Polysubstance abuse Status: Chronic Priority: Medium (4) Alcohol withdrawal Status: Resolved Priority: Medium Hospital Course - Lab Results Lab Results: Micro Results 06/02/18 16:00 Blood-Venous Blood Culture - Preliminary NO GROWTH AFTER 48 HOURS 06/02/18 15:45 Blood-Venous Blood Culture - Preliminary NO GROWTH AFTER 48 HOURS Most Recent Lab Values WBC 15.0 10^3/uL (4.5-11.0) H 06/05/18 06:20 RBC 4.61 10^6/uL (3.5-6.1) 06/05/18 06:20 Hgb 14.9 g/dL (12.0-16.0) 06/05/18 06:20 Hct 45.7 % (36.0-48.0) 06/05/18 06:20 MCV 99.1 fl (80.0-105.0) 06/05/18 06:20 MCH 32.3 pg (25.0-35.0) 06/05/18 06:20 MCHC 32.6 g/dl (31.0-37.0) 06/05/18 06:20 RDW 14.9 % (11.5-14.5) H 06/05/18 06:20 Plt Count 311 10^3/uL (120.0-450.0) 06/05/18 06:20 MPV 10.6 fl (7.0-11.0) 06/05/18 06:20 Neut % (Auto) 63.0 % (50.0-68.0) 06/02/18 16:00 Lymph % (Auto) 26.0 % (22.0-35.0) 06/02/18 16:00 [place] % (Auto) 9.7 % (1.0-6.0) H 06/02/18 16:00 Eos % (Auto) 1.0 % (1.5-5.0) L 06/02/18 16:00 Baso % (Auto) 0.3 % (0.0-3.0) 06/02/18 16:00 Lymph # (Auto) 3.8 (1.2-3.4) H 06/02/18 16:00 [place] # (Auto) 1.4 (0.1-0.6) H 06/02/18 16:00 Eos # (Auto) 0.2 (0.0-0.7) 06/02/18 16:00 Baso # (Auto) 0.04 K/mm3 (0.0-2.0) 06/02/18 16:00 Absolute Neuts (auto) 9.31 (1.4-6.5) H 06/02/18 16:00 Sodium 138 mmol/L (132-148) 06/05/18 06:20 Potassium 4.1 mmol/L (3.6-5.0) 06/05/18 06:20 Chloride 101 mmol/L (98-107) 06/05/18 06:20 Carbon Dioxide 33 mmol/L (21-33) 06/05/18 06:20 Anion Gap 8 (10-20) L 06/05/18 06:20 BUN 16 mg/dL (7-21) 06/05/18 06:20 Creatinine 0.6 mg/dl (0.7-1.2) L 06/05/18 06:20 Est GFR ( Amer) > 60 06/05/18 06:20 Est GFR (Non-Af Amer) > 60 06/05/18 06:20 Random Glucose 118 mg/dL (70-110) H 06/05/18 06:20 Calcium 8.7 mg/dL (8.4-10.5) 06/05/18 06:20 Phosphorus 4.6 mg/dL (2.5-4.5) H 06/05/18 06:20 Magnesium 2.0 mg/dL (1.7-2.2) 06/05/18 06:20 Total Bilirubin 0.7 mg/dL (0.2-1.3) 06/05/18 06:20 AST 28 U/L (14-36) 06/05/18 06:20 ALT 44 U/L (7-56) 06/05/18 06:20 Alkaline Phosphatase 63 U/L (38-126) 06/05/18 06:20 Troponin I < 0.01 ng/mL 06/05/18 14:05 Total Protein 6.4 g/dL (5.8-8.3) 06/05/18 06:20 Albumin 3.6 g/dL (3.0-4.8) 06/05/18 06:20 Globulin 2.8 gm/dL 06/05/18 06:20 Albumin/Globulin Ratio 1.3 (1.1-1.8) 06/05/18 06:20 Procalcitonin < 0.05 NG/ML (0.19-0.49) L 06/02/18 21:45 Urine Opiates Screen Positive (NEGATIVE) H 06/02/18 19:20 Urine Methadone Screen Negative (NEGATIVE) 06/02/18 19:20 Ur Barbiturates Screen Negative (NEGATIVE) 06/02/18 19:20 Ur Phencyclidine Scrn Negative (NEGATIVE) 06/02/18 19:20 Ur Amphetamines Screen Negative (NEGATIVE) 06/02/18 19:20 U Benzodiazepines Scrn Positive (NEGATIVE) H 06/02/18 19:20 U Oth Cocaine Metabols Negative (NEGATIVE) 06/02/18 19:20 U Cannabinoids Screen Negative (NEGATIVE) 06/02/18 19:20 Alcohol, Quantitative 235 mg/dL (0-10) H 06/02/18 18:00 - Hospital Course Hospital Course: PGY1 Discharge Summary and Hospital Course for Dr. Watson On admission: Patient is a 47 year old homeless female, whose past medical history includes multiple admissions for drug overdose and COPD exacerbations, COPD, asthma, polysubstance abuse, alcohol withdrawal medication non-compliance, Hep C, liver cirrhosis who presented to the emergency department complaining of shortness of breath and substance abuse. In the ED, Vitals: Temp 98.2, HR 108, BP 129/72, RR 18, SaO2 96%. Medical team evaluated patient in the ED. Patient said that she was recently at [facility] [place] for the same complaint. Patient states she had shortness of breath with chronic cough. Of note, Patient also mentions her last drink was a few hours ago. For details, please see Patient's complete chart. CXR showed mild bibasilar atelectasis. Patient was started on antibiotics zithromax, and was treated with duonebs, robitussin, O2 supplementation, and IV solumedrol. Procalcitonin was obtained and was low. Blood cultures were obtained and were negative. Patient was also UDS positive for benzo, opiates, and ETOH on admission. Patient was placed on CIWA protocol, seizure protocol, and aspiration protocol. Complete alcohol cessation was recommended and encouraged to the Patient. Please see progress notes for details. On day of discharge, Patient was seen and evaluated at bedside this morning. No acute events overnight. Patient complains of chest pain localized to left pectoralis muscle, Patient rates the pain at 9/10 and constant. Patient also says she feels anxious. Patient otherwise is tolerating diet and denies shortness of breath, headache, abdominal pain, fever, chills, nausea/vomiting. Troponins Q6H were obtained and were negative. EKG was sinus tachycardia. The Patient was no longer anxious upon re-evaluation. Patient was hemodynamically stable and medically optimized for discharge to home. The Patient was provided with detailed discharge instructions provided both verbally and in writing to the level of Patient's comprehension. Patient received her discharge medications at bedside prior to leaving the hospital. For more detail, Please see Patient's progress notes and complete chart. Discharge Medications Ventolin HFA 90mcg 60 puff inhaler 2 puff IH Q4H PRN #1 inhaler Budesonide 1mg IH BID #14 Folic Acid 0.8mg PO Daily #14 Robitussin 100mg PO Q4H PRN #1 Medrol dose pack 4mg PO daily #21 take as directed MultiVitamin 1 tab each PO Daily #14 Thiamine 100mg PO Daily #14 Discharge Instructions Please follow up with your primary care doctor within one to two weeks of being discharged from the hospital. You will need to follow up with your doctor in order to get refills of your home medications in the future. Please stop smoking tobacco and drinking alcohol as discussed as doing these things are detrimental to your health. Please take all medications as prescribed. If your symptoms return, please seek emergency medical attention immediately at your nearest emergency room. Patient seen and case discussed with Dr. Walter Juarez PGY1 Discharge Exam - Additional Findings Additional findings: - Constitutional Appears: Non-toxic, No Acute Distress - Head Exam Head Exam: ATRAUMATIC, NORMOCEPHALIC - Eye Exam Eye Exam: EOMI, Normal appearance, PERRL Pupil Exam: NORMAL ACCOMODATION, PERRL - ENT Exam ENT Exam: Mucous Membranes Moist - Neck Exam Neck Exam: Full ROM - Respiratory Exam Respiratory Exam: Wheezes (Mild end expiratory with significant interval improvement noted), NORMAL BREATHING PATTERN. absent: Accessory Muscle Use, Chest Wall Tenderness, Decreased Breath Sounds, Clear to Auscultation Bilateral, Prolonged Expiratory Phase, Rales, Rhonchi, Respiratory Distress, Stridor - Cardiovascular Exam Cardiovascular Exam: REGULAR RHYTHM, +S1, +S2. absent: Bradycardia, Tachycardia, Irregular Rhythm - GI/Abdominal Exam GI & Abdominal Exam: Soft, Normal Bowel Sounds. absent: Tenderness - Extremities Exam Extremities Exam: absent: Calf Tenderness - Neurological Exam Neurological Exam: Alert, Awake, Oriented x3 - Psychiatric Exam Psychiatric exam: Normal Affect, Normal Mood - Skin Skin Exam: Dry, Intact, Warm Discharge Plan - Discharge Medications Prescriptions: Albuterol HFA [Ventolin HFA 90 mcg/actuation (8 g)] 2 puff IH Q4H PRN #1 inh PRN Reason: Wheezing Budesonide 1 mg IH BID #14 ampul.neb Methylprednisolone [Medrol Dose Pack (21 tabs)] 4 mg PO DAILY #21 mg - Follow Up Plan Condition: FAIR Disposition: HOME/ ROUTINE Additional Instructions: Please follow up with your primary care doctor within one to two weeks of being discharged from the hospital. You will need to follow up with your doctor in order to get refills of your home medications in the future. Please stop smoking tobacco and drinking alcohol as discussed as doing these things are detrimental to your health. Please take all medications as prescribed. If your symptoms return, please seek emergency medical attention immediately at your nearest emergency room. <Karolina Watson - Last Filed: 06/06/18 06:54> Provider - Provider Date of Admission: 06/03/18 08:42 Attending physician: Karolina Watson MD Consults: 06/02/18 23:39 Inpatient FOOD CONSULTANT Core Measures Referral Routine Comment: COPD EXACERBATION Physician Instructions: Reason For Exam: EVALUATION Nursing Referral for Wound Care Routine Comment: Physician Instructions: Reason For Exam: EVALUATION Transition In Care/Readmission Reduction Routine Comment: Physician Instructions: Reason For Exam: EVALUATION Hospital Course - Lab Results Lab Results: Micro Results 06/02/18 16:00 Blood-Venous Blood Culture - Preliminary NO GROWTH AFTER 3 DAYS 06/02/18 15:45 Blood-Venous Blood Culture - Preliminary NO GROWTH AFTER 3 DAYS Most Recent Lab Values WBC 15.0 10^3/uL (4.5-11.0) H 06/05/18 06:20 RBC 4.61 10^6/uL (3.5-6.1) 06/05/18 06:20 Hgb 14.9 g/dL (12.0-16.0) 06/05/18 06:20 Hct 45.7 % (36.0-48.0) 06/05/18 06:20 MCV 99.1 fl (80.0-105.0) 06/05/18 06:20 MCH 32.3 pg (25.0-35.0) 06/05/18 06:20 MCHC 32.6 g/dl (31.0-37.0) 06/05/18 06:20 RDW 14.9 % (11.5-14.5) H 06/05/18 06:20 Plt Count 311 10^3/uL (120.0-450.0) 06/05/18 06:20 MPV 10.6 fl (7.0-11.0) 06/05/18 06:20 Neut % (Auto) 63.0 % (50.0-68.0) 06/02/18 16:00 Lymph % (Auto) 26.0 % (22.0-35.0) 06/02/18 16:00 [place] % (Auto) 9.7 % (1.0-6.0) H 06/02/18 16:00 Eos % (Auto) 1.0 % (1.5-5.0) L 06/02/18 16:00 Baso % (Auto) 0.3 % (0.0-3.0) 06/02/18 16:00 Lymph # (Auto) 3.8 (1.2-3.4) H 06/02/18 16:00 [place] # (Auto) 1.4 (0.1-0.6) H 06/02/18 16:00 Eos # (Auto) 0.2 (0.0-0.7) 06/02/18 16:00 Baso # (Auto) 0.04 K/mm3 (0.0-2.0) 06/02/18 16:00 Absolute Neuts (auto) 9.31 (1.4-6.5) H 06/02/18 16:00 Sodium 138 mmol/L (132-148) 06/05/18 06:20 Potassium 4.1 mmol/L (3.6-5.0) 06/05/18 06:20 Chloride 101 mmol/L (98-107) 06/05/18 06:20 Carbon Dioxide 33 mmol/L (21-33) 06/05/18 06:20 Anion Gap 8 (10-20) L 06/05/18 06:20 BUN 16 mg/dL (7-21) 06/05/18 06:20 Creatinine 0.6 mg/dl (0.7-1.2) L 06/05/18 06:20 Est GFR ( Amer) > 60 06/05/18 06:20 Est GFR (Non-Af Amer) > 60 06/05/18 06:20 Random Glucose 118 mg/dL (70-110) H 06/05/18 06:20 Calcium 8.7 mg/dL (8.4-10.5) 06/05/18 06:20 Phosphorus 4.6 mg/dL (2.5-4.5) H 06/05/18 06:20 Magnesium 2.0 mg/dL (1.7-2.2) 06/05/18 06:20 Total Bilirubin 0.7 mg/dL (0.2-1.3) 06/05/18 06:20 AST 28 U/L (14-36) 06/05/18 06:20 ALT 44 U/L (7-56) 06/05/18 06:20 Alkaline Phosphatase 63 U/L (38-126) 06/05/18 06:20 Troponin I < 0.01 ng/mL 06/05/18 14:05 Total Protein 6.4 g/dL (5.8-8.3) 06/05/18 06:20 Albumin 3.6 g/dL (3.0-4.8) 06/05/18 06:20 Globulin 2.8 gm/dL 06/05/18 06:20 Albumin/Globulin Ratio 1.3 (1.1-1.8) 06/05/18 06:20 Procalcitonin < 0.05 NG/ML (0.19-0.49) L 06/02/18 21:45 Urine Opiates Screen Positive (NEGATIVE) H 06/02/18 19:20 Urine Methadone Screen Negative (NEGATIVE) 06/02/18 19:20 Ur Barbiturates Screen Negative (NEGATIVE) 06/02/18 19:20 Ur Phencyclidine Scrn Negative (NEGATIVE) 06/02/18 19:20 Ur Amphetamines Screen Negative (NEGATIVE) 06/02/18 19:20 U Benzodiazepines Scrn Positive (NEGATIVE) H 06/02/18 19:20 U Oth Cocaine Metabols Negative (NEGATIVE) 06/02/18 19:20 U Cannabinoids Screen Negative (NEGATIVE) 06/02/18 19:20 Alcohol, Quantitative 235 mg/dL (0-10) H 06/02/18 18:00 Attending/Attestation - Attestation I have personally seen and examined this patient.: Yes I have fully participated in the care of the patient.: Yes I have reviewed all pertinent clinical information, including history, physical exam and plan: Yes Notes (Text): 06/05/18 47 year old homeless female with past medical history of COPD, alcohol abuse and polysubtance abuse presented with alcohol intoxication and COPD exacerbation. Her wheezing is improved on tapering iv steroids and duonebs. She was on tapering ativan craig/prn for withdrawal symptoms with improved. She was counselled on smoking cessation. Counselled on risks of continued substance abuse. Counselled on alcohol abstinence. Patient unfortunately fails to comply and has had multiple readmissions for COPD exacerbation and alcohol intoxication / withdrawal. Patient is discharged today to follow up with pmd. Overall prognosis is poor given noncompliance. Karolina Watson MD Hospitalist.
[2018-06-05] MEDS ORDERED: Influenza Vaccine 60 mcg/0.5 mL SYR (4YR UP) IM ONE (17:29)
[2018-06-05 17:36] VITALS: BP 111/77; PULSE 102; TEMP 99.8
--- NOTE | 2018-06-05 22:42 | CARD ---
APPROVED REPORT Date of service: 06/05/2018 EKG Measurement Heart [id number] <Conclusion> Sinus tachycardia Possible Left atrial enlargement Borderline ECG
== END 2018-06-05 18:50 | disposition home or self-care (01) | DRG 88 ==
LOC: ED 15:19 → ERH 18:31 → 3RNO 21:24 → OBSVTOIN 06-03 08:42
PROVIDERS: ADMIT Internal Medicine; ATTEND Internal Medicine
PROC: 3E0F7GC Introduction of Other Therapeutic Substance into Respiratory Tract, Via Natural or Artificial Opening (ICD-10-PCS; principal; 2018-06-03)
DX: J44.1 Chronic obstructive pulmonary disease with (acute) exacerbation (principal); F10.239 Alcohol dependence with withdrawal, unspecified; K70.30 Alcoholic cirrhosis of liver without ascites; B19.20 Unspecified viral hepatitis C without hepatic coma; I50.9 Heart failure, unspecified; I11.0 Hypertensive heart disease with heart failure; F10.229 Alcohol dependence with intoxication, unspecified; F17.210 Nicotine dependence, cigarettes, uncomplicated; Z91.14 Patient's other noncompliance with medication regimen; Z59.0 Homelessness; Z91.19 Patient's noncompliance with other medical treatment and regimen

== ENCOUNTER 2018-06-06 18:30 | Observation (INO) | payer MEDICAID ==
[2018-06-06] MEDS ORDERED: Naloxone 0.4 mg/ml Inj (Adult) ONE (18:46)
[2018-06-06 18:48] VITALS: BMI 32.3
[2018-06-06] MEDS ORDERED: Naloxone 0.4 mg/ml Inj (Adult) IVP STA (18:55)
[2018-06-06 19:19] LABS: BASO # 0.04 K/mm3 (0.0-2.0); BASO % 0.2 % (0.0-3.0); EOS # 0.3 (0.0-0.7); EOS % 1.2 % (1.5-5.0); HEMOGLOBIN 17.4 g/dL (12.0-16.0); LYMPH # 8.4 (1.2-3.4); LYMPH % 38.6 % (22.0-35.0); MEAN CELL VOLUME 99.4 fl (80.0-105.0); MEAN CORPUSCULAR HEMOGLOBIN 32.9 pg (25.0-35.0); MEAN CORPUSCULAR HGB CONC 33.1 g/dl (31.0-37.0); MEAN PLATELET VOLUME 10.4 fl (7.0-11.0); MONO # 1.5 (0.1-0.6); MONO % 7.1 % (1.0-6.0); RBC 5.29 10^6/uL (3.5-6.1); RED CELL DISTRIBUTION WIDTH 15.1 % (11.5-14.5); WHITE BLOOD COUNT 21.8 10^3/uL (4.5-11.0)
[2018-06-06 19:25] LABS: VENOUS BLOOD GAS BASE EXCESS 1.7 mmol/L (0.0-2.0); VENOUS BLOOD GAS PO2 290 mm/Hg (30-55); VENOUS BLOOD PH 7.21 (7.32-7.43)
[2018-06-06] MEDS ORDERED: Albuterol-Ipratrop 3 mg / 0.5 (3 ml) UD IH STA (19:32)
[2018-06-06] MEDS ORDERED: Sodium Chloride 0.9% 1,000 ML IV STA (19:32)
[2018-06-06 19:33] LABS: ALB/GLOB RATIO 1.2 (1.1-1.8); ALBUMIN 4.3 g/dL (3.0-4.8); ALT/SGPT 54 U/L (7-56); AST/SGOT 60 U/L (14-36); BLOOD UREA NITROGEN 16 mg/dL (7-21); CALCIUM 8.1 mg/dL (8.4-10.5); GFR NON-AFRICAN AMERICAN > 60; LIPASE 108 U/L (23-300)
[2018-06-06] MEDS ORDERED: Vancomycin 1gm in NS 250ml 1 GM/250 ML BAG IVPB STA (19:41)
[2018-06-06] MEDS ORDERED: Piperacill/Tazo 4.5gm in NS 4.5 GM/100 ML BAG IVPB STA (19:41)
[2018-06-06 19:43] LABS: B-TYPE NATRIURETIC PEPTIDE 65.5 pg/mL (0-450)
[2018-06-06 19:47] LABS: TROPONIN I < 0.01 ng/mL
--- NOTE | 2018-06-06 20:05 | ED PDOC ---
Arrival/HPI - General Chief Complaint: Shortness Of Breath Time Seen by Provider: 06/06/18 18:43 - History of Present Illness Narrative History of Present Illness (Text): 06/06/18 19:59 47F w/ h/o COPD and substance abuse presenting to the Emergency Room for opioid withdrawal. Patient was found passed out on the street by EMS after snorting heroin. She was immediately brought to the Emergency Room for further evaluation. Patient was given IV Narcan upon immediate arrival to the Emergency Room. A more complete HPI was unable to be obtained due to the patient's clinical condition Time/Duration: Prior to Arrival Symptom Onset: Sudden Symptom Course: Unchanged Activities at Onset: Rest Context: Street Past Medical History - Provider Review Nursing Documentation Reviewed: Yes - Travel History Have you recently traveled outside [place] w/in the past 3 mons?: No - Infectious Disease Hx of Infectious Diseases: None - Tetanus Immunization Tetanus Immunization: Unknown - Reproductive Currently : No - Cardiac Hx Cardiac Disorders: Yes Hx Congestive Heart Failure: Yes Hx Hypertension: Yes - Pulmonary Hx Respiratory Disorders: Yes Hx Asthma: Yes Hx Bronchitis: Yes Hx Chronic Obstructive Pulmonary Disease (COPD): Yes Hx Emphysema: Yes Other/Comment: pneumothorax with chest tube - Neurological Hx Neurological Disorder: No Hx Seizures: No - HEENT Hx HEENT Disorder: No - Renal Hx Renal Disorder: No - Endocrine/Metabolic Hx Endocrine Disorders: No - Hematological/Oncological Hx Blood Disorders: Yes Hx Hepatitis C: Yes - Integumentary Hx Dermatological Disorder: No - Musculoskeletal/Rheumatological Hx Musculoskeletal Disorders: Yes Hx Falls: Yes Hx Fractures: Yes (right ankle, right knnee) - Gastrointestinal Hx Gastrointestinal Disorders: Yes Hx Pancreatitis: No (denies) - Genitourinary/Gynecological Hx Genitourinary Disorders: No Hx Sexually Transmitted Diseases: No - Psychiatric Hx Psychophysiologic Disorder: Yes Hx Anxiety: Yes Hx Depression: Yes Hx Substance Use: Yes (SNIFF/SNORTS HEROIN.LAST SNORTED TODAY. 1 BAG. WAS IN A MMTP BEFORE.) Other/Comment: methadone, heorin and alcohol abuse - Surgical History Hx Appendectomy: Yes Other/Comment: tonsillectomy - Anesthesia Hx Anesthesia: Yes Hx Anesthesia Reactions: No Hx Malignant Hyperthermia: No - Suicidal Assessment Feels Threatened In Home Enviroment: No Family/Social History - Physician Review Nursing Documentation Reviewed: Yes Family/Social History: Unknown Family HX Smoking Status: Current Some Days Smoker Hx Alcohol Use: Yes (DRINKS BEER DAILY.40% PROOF,LOCAL 24 OZ BEER CANS .LAST DRANK THIS AM.) Hx Substance Use: Yes (SNIFF/SNORTS HEROIN.LAST SNORTED TODAY. 1 BAG. WAS IN A MMTP BEFORE.) Substance used: heroin Hx Substance Use Treatment: Yes Allergies/Home Meds Allergies/Adverse Reactions: Allergies No Known Allergies Allergy (Verified 06/02/18 22:53) Review of Systems - Review of Systems Systems not reviewed;Unavailable: Intoxicated Physical Exam - Physical Exam Physical Exam Limitations: Intoxication Vital Signs Reviewed: Yes Vital Signs Temp Pulse Resp BP Pulse Ox 06/06/18 19:19 114 H 18 146/94 H 97 06/06/18 18:43 99.6 F 137 H 29 H 139/98 H 88 L 06/06/18 18:31 22 Temperature: Afebrile Blood Pressure: Normal Pulse: Tachycardic Respiratory Rate: Tachypneic Appearance: Positive for: Ill-Appearing, Unkept Mental Status: Positive for: Alert and Oriented X 3 - Systems Exam Head: Present: Atraumatic, Normocephalic Pupils: Present: Pinpoint Extroacular Muscles: Present: EOMI Conjunctiva: Present: Normal Mouth: Present: Moist Mucous Membranes Neck: Present: Normal Range of Motion Respiratory/Chest: Present: Clear to Auscultation, Good Air Exchange. No: Respiratory Distress Cardiovascular: Present: Regular Rate and Rhythm, Normal S1, S2 Abdomen: Present: Normal Bowel Sounds. No: Tenderness, Distention Neurological: Present: GCS=15, Speech Normal Skin: Present: Warm, Dry, Normal Color Psychiatric: Present: Alert, Oriented x 3, Normal Insight, Normal Concentration Medical Decision Making ED Course and Treatment: 06/06/18 20:08 Impression 47F w/ h/o opioid abuse presenting for opioid overdose Plan --Labs --VBG --Vancomycin --Zosyn --UA --CXR --IV Fluids --Narcan --Reassess & disposition Progress Notes 06/06/18 20:09 Code sepsis called. WBC noted to be 21 with tachycardia and tachypnea. Spoke to Dr. Herrera(house staff) and medical assembly who accepts patient onto service. - Lab Interpretations Lab Results: pO2 290 mm/Hg (30-55) H 06/06/18 18:45 VBG pH 7.21 (7.32-7.43) L 06/06/18 18:45 VBG pCO2 80.0 (40-60) H* 06/06/18 18:45 VBG HCO3 32.0 mmol/l (21-28) H 06/06/18 18:45 VBG Total CO2 34.5 mmol.L (22-28) H 06/06/18 18:45 VBG O2 Sat (Calc) 100.4 % (40-65) H 06/06/18 18:45 VBG Base Excess 1.7 mmol/L (0.0-2.0) 06/06/18 18:45 VBG Potassium 4.2 mmol/L (3.6-5.2) 06/06/18 18:45 Sodium 141.0 mmol/L (132-148) 06/06/18 18:45 Chloride 104.0 mmol/L (98-107) 06/06/18 18:45 Glucose 198 mg/dl (65-105) H 06/06/18 18:45 Lactate 2.2 mmol/L (0.7-2.1) H 06/06/18 18:45 FiO2 21.0 % 06/06/18 18:45 Crit Value Called To Carmen mcdonald 06/06/18 18:45 Crit Value Called By Atc 06/06/18 18:45 Blood Gas Notified Time 192306/06/18 18:45 Troponin I < 0.01 ng/mL 06/06/18 18:45 NT-Pro-B Natriuret Pep 65.5 pg/mL (0-450) 06/06/18 18:45 Total Bilirubin 0.7 mg/dL (0.2-1.3) 06/06/18 18:45 AST 60 U/L (14-36) H D 06/06/18 18:45 ALT 54 U/L (7-56) 06/06/18 18:45 Alkaline Phosphatase 69 U/L (38-126) 06/06/18 18:45 Total Protein 7.8 g/dL (5.8-8.3) 06/06/18 18:45 Albumin 4.3 g/dL (3.0-4.8) 06/06/18 18:45 Globulin 3.6 gm/dL 06/06/18 18:45 Albumin/Globulin Ratio 1.2 (1.1-1.8) 06/06/18 18:45 Lipase 108 U/L (23-300) 06/06/18 18:45 06/06/18 18:45 06/06/18 18:45 Lab Results 06/06/18 18:45: Sodium 139, Chloride 100, Potassium 4.3, Carbon Dioxide 28, Anion Gap 16, BUN 16, Creatinine 0.9, Est GFR ( Amer) > 60, Est GFR (Non- Af Amer) > 60, Random Glucose 185 H, Calcium 8.1 L, Total Bilirubin 0.7, AST 60 H D, ALT 54, Alkaline Phosphatase 69, Troponin I < 0.01, NT-Pro-B Natriuret Pep 65.5, Total Protein 7.8, Albumin 4.3, Globulin 3.6, Albumin/Globulin Ratio 1.2, Lipase 108 06/06/18 18:45: pO2 290 H, VBG pH 7.21 L, VBG pCO2 80.0 H*, VBG HCO3 32.0 H, VBG Total CO2 34.5 H, VBG O2 Sat (Calc) 100.4 H, VBG Base Excess 1.7, VBG Potassium 4.2, Sodium 141.0, Chloride 104.0, Glucose 198 H, Lactate 2.2 H, FiO2 21.0, Crit Value Called To Carmen mcdonald, Crit Value Called By [facility], Blood Gas Notified Time 1923, Venous Blood Potassium 4.2 06/06/18 18:45: WBC 21.8 H D, RBC 5.29, Hgb 17.4 H D, Hct 52.6 H, MCV 99.4, MCH 32.9, MCHC 33.1, RDW 15.1 H, Plt Count 435, MPV 10.4, Neut % (Auto) 52.9, Lymph % (Auto) 38.6 H, [place] % (Auto) 7.1 H, Eos % (Auto) 1.2 L, Baso % (Auto) 0.2, Lymph # (Auto) 8.4 H, [place] # (Auto) 1.5 H, Eos # (Auto) 0.3, Baso # (Auto) 0.04, Absolute Neuts (auto) 11.54 H I have reviewed the lab results: Yes - RAD Interpretation Radiology Orders: 06/06/18 18:55 CHEST PORTABLE [RAD] Stat - Medication Orders Current Medication Orders: Sodium Chloride (Sodium Chloride 0.9%) 1,000 mls @ 999 mls/hr IV .Q1H1M STA Stop: 06/06/18 20:32 Last Admin: 06/06/18 19:48 Dose: 999 mls/hr eMAR Start Stop Document 06/06/18 19:48 AD (Rec: 06/06/18 19:48 AD [id number]) Intravenous Solution Start Date 06/06/18 Start Time 19:48 Sodium Chloride 2,177 ml/ IV (SUPPLIES) 2,177 mls @ 4,354.5 mls/hr IV ONCE ONE Stop: 06/06/18 20:09 Vancomycin HCl (Vancomycin 1gm) 1 gm in 250 mls @ 167 mls/hr IVPB STAT STA; Protocol Stop: 06/06/18 21:10 Piperacillin Sod/Tazobactam Sod (Zosyn 4.5 Gm In Ns 100ml) 4.5 gm in 100 mls @ 200 mls/hr IVPB STAT STA; Protocol Stop: 06/06/18 20:10 Last Admin: 06/06/18 19:50 Dose: 200 mls/hr eMAR Start Stop Document 06/06/18 19:50 AD (Rec: 06/06/18 19:50 AD [id number]) Intravenous Solution Start Date 06/06/18 Start Time 19:50 Discontinued Medications Albuterol/Ipratropium (Duoneb 3 Mg/0.5 Mg (3 Ml) Ud) 3 ml IH STAT STA Stop: 06/06/18 19:33 Last Admin: 06/06/18 19:48 Dose: 3 ml Methylprednisolone (Solu-Medrol) 125 mg IVP STAT STA Stop: 06/06/18 19:33 Last Admin: 06/06/18 19:48 Dose: 125 mg IVP Administration Document 06/06/18 19:48 AD (Rec: 06/06/18 19:48 AD [id number]) Charges for Administration # of IVP Administrations 1 Naloxone HCl (Narcan) 0.4 mg IVP STAT STA Stop: 06/06/18 18:56 Last Admin: 06/06/18 19:11 Dose: Not Given Non-Admin Reason: duplicate IVP Administration Document 06/06/18 19:11 SRE (Rec: 06/06/18 19:11 SRE [id number]) Charges for Administration # of IVP Administrations 1 Disposition/Present on Arrival - Present on Arrival History of DVT/PE: No History of Uncontrolled Diabetes: No Urinary Catheter: No History of Decub. Ulcer: No History Surgical Site Infection Following: None - Disposition Referrals: PCP,NO [Primary Care Provider] - Follow up with primary
--- NOTE | 2018-06-06 20:29 | CP.PCM.HP ---
<Dino Christensen - Last Filed: 06/07/18 00:24> History of Present Illness - History of Present Illness History of Present Illness: Resident History & Physical for Hospitalist Service Patient is a 47 year old female with past medical history of asthma, COPD, polysubstance abuse, hepatitis C, liver cirrhosis presenting with chief complaint of heroine withdrawal. Patient states she used one bag of heroine a few hours prior and since then she has been having myalgias in addition to headache, back pain, abdominal pain, and bilateral leg pain. Before arrival to ED patient was found on the street unconscious. She regained consciousness after administration of IV narcan. Her last alcohol intake was also several hours prior. Patient was recently [place] [facility] [place] of acute exacerbation of COPD and polysubstance abuse including alcohol, benzodiazepines, and opiates. Patient states due to her psychosocial stressors she is unable to successfully refrain from abusing substances. Currently denies fevers, chills, chest pain, shortness of breath, diarrhea, dysuria. PMH: asthma, COPD, polysubstance abuse, hepatitis C, liver cirrhosis PSH: appendectomy, tonsillectomy SHx: 1/2 PPD for more than 30 years, heavy alcohol, marijuana, heroine. Slime eless. FHx: grandmother (COPD) Allergies: NKDA Home meds: Ventolin inhaler daily PMD: none Present on Admission - Present on Admission Any Indicators Present on Admission: No Review of Systems - Review of Systems All systems: reviewed and no additional remarkable complaints except (as stated in HPI) Past Patient History - Infectious Disease Hx of Infectious Diseases: None - Tetanus Immunizations Tetanus Immunization: Unknown - Past Medical History & Family History Past Medical History?: Yes - Past Social History Smoking Status: Current Some Days Smoker - CARDIAC Hx Cardiac Disorders: Yes Hx Congestive Heart Failure: Yes Hx Hypertension: Yes - PULMONARY Hx Respiratory Disorders: Yes Hx Asthma: Yes Hx Bronchitis: Yes Hx Chronic Obstructive Pulmonary Disease (COPD): Yes Hx Emphysema: Yes Other/Comment: pneumothorax with chest tube - NEUROLOGICAL Hx Neurological Disorder: No Hx Seizures: No - HEENT Hx HEENT Problems: No - RENAL Hx Chronic Kidney Disease: No - ENDOCRINE/METABOLIC Hx Endocrine Disorders: No - HEMATOLOGICAL/ONCOLOGICAL Hx Blood Disorders: Yes Hx Hepatitis C: Yes - INTEGUMENTARY Hx Dermatological Problems: No - MUSCULOSKELETAL/RHEUMATOLOGICAL Hx Musculoskeletal Disorders: Yes Hx Falls: Yes Hx Fractures: Yes (right ankle, right knnee) - GASTROINTESTINAL Hx Gastrointestinal Disorders: Yes Hx Pancreatitis: No (denies) - GENITOURINARY/GYNECOLOGICAL Hx Genitourinary Disorders: No Hx Sexually Transmitted Disorders: No - PSYCHIATRIC Hx Psychophysiologic Disorder: Yes Hx Anxiety: Yes Hx Depression: Yes Hx Substance Use: Yes (SNIFF/SNORTS HEROIN.LAST SNORTED TODAY. 1 BAG. WAS IN A MMTP BEFORE.) Other/Comment: methadone, heorin and alcohol abuse - SURGICAL HISTORY Hx Appendectomy: Yes Other/Comment: tonsillectomy - ANESTHESIA Hx Anesthesia: Yes Hx Anesthesia Reactions: No Hx Malignant Hyperthermia: No Meds Allergies/Adverse Reactions: Allergies Allergy/AdvReac Type Severity Reaction Status Date / Time No Known Allergies Allergy Verified 06/02/18 22:53 Physical Exam - Constitutional Appears: Non-toxic, No Acute Distress - Head Exam Head Exam: ATRAUMATIC, NORMOCEPHALIC - Eye Exam Eye Exam: EOMI, Normal appearance, PERRL - ENT Exam ENT Exam: Mucous Membranes Moist - Neck Exam Neck exam: Positive for: Normal Inspection - Respiratory Exam Respiratory Exam: Wheezes. absent: Accessory Muscle Use, Rales, Rhonchi, Respiratory Distress - Cardiovascular Exam Cardiovascular Exam: Tachycardia, +S1, +S2. absent: Systolic Murmur - GI/Abdominal Exam GI & Abdominal Exam: Soft, Tenderness (mild diffuse). absent: Distended, Firm, Guarding, Rebound, Rigid - Extremities Exam Extremities exam: Positive for: normal capillary refill, normal inspection, pedal pulses present. Negative for: pedal edema, tenderness - Neurological Exam Neurological exam: Alert, CN II-XII Intact, Oriented x3 - Psychiatric Exam Psychiatric exam: Normal Affect, Normal Mood - Skin Skin Exam: Dry, Intact, Normal Color Results - Vital Signs Recent Vital Signs: Last Vital Signs Temp 99.6 F 06/06/18 18:43 Pulse 114 H 06/06/18 19:19 Resp 18 06/06/18 19:19 BP 146/94 H 06/06/18 19:19 Pulse Ox 97 06/06/18 19:19 - Labs Result Diagrams: 06/06/18 18:45 06/06/18 18:45 Labs: Laboratory Results - last 24 hr 06/06/18 06/06/18 06/06/18 18:45 18:45 18:45 WBC 21.8 H D RBC 5.29 Hgb 17.4 H D Hct 52.6 H MCV 99.4 MCH 32.9 MCHC 33.1 RDW 15.1 H Plt Count 435 MPV 10.4 Neut % (Auto) 52.9 Lymph % (Auto) 38.6 H [place] % (Auto) 7.1 H Eos % (Auto) 1.2 L Baso % (Auto) 0.2 Lymph # (Auto) 8.4 H [place] # (Auto) 1.5 H Eos # (Auto) 0.3 Baso # (Auto) 0.04 Absolute Neuts (auto) 11.54 H pO2 290 H VBG pH 7.21 L VBG pCO2 80.0 H* VBG HCO3 32.0 H VBG Total CO2 34.5 H VBG O2 Sat (Calc) 100.4 H VBG Base Excess 1.7 VBG Potassium 4.2 Sodium 141.0 139 Chloride 104.0 100 Glucose 198 H Lactate 2.2 H FiO2 21.0 Crit Value Called To Carmen mcdonald Crit Value Called By [facility] Blood Gas Notified Time 1923 Potassium 4.3 Carbon Dioxide 28 Anion Gap 16 BUN 16 Creatinine 0.9 Est GFR ( Amer) > 60 Est GFR (Non-Af Amer) > 60 Random Glucose 185 H Calcium 8.1 L Total Bilirubin 0.7 AST 60 H D ALT 54 Alkaline Phosphatase 69 Troponin I < 0.01 NT-Pro-B Natriuret Pep 65.5 Total Protein 7.8 Albumin 4.3 Globulin 3.6 Albumin/Globulin Ratio 1.2 Lipase 108 Venous Blood Potassium 4.2 Assessment & Plan - Assessment and Plan (Free Text) Assessment: Patient is a 47 year old female with past medical history of asthma, COPD, polysubstance abuse, hepatitis C, liver cirrhosis presenting with chief complaint of heroine withdrawal. Plan: Polysubstance abuse - Alcohol level 133 - Librium 5 mg PO Q8 PRN - Folic acid/thiamine/multivitamin daily - Zofran PRN - CIWA protocol - Cessation counseling - followup UDS Lactic acidosis - likely from alcohol induced ketoacidosis Hyperglycemia - Hgba1c - ISS, Accuchecks Leukocytosis - likely recent steroid use - Vancomycin 1 gram and Zosyn 4.5 grams given - followup cultures, procal, UA COPD - Duonebs PRN - O2 NC PRN PPX - Pepcid, Lovenox Case discussed with Dr. Suzan Christensen PGY-1 <Nicolasa Mares - Last Filed: 06/07/18 19:16> Results - Vital Signs Recent Vital Signs: Last Vital Signs Temp 98.4 F 06/07/18 18:00 Pulse 78 06/07/18 18:00 Resp 20 06/07/18 18:00 BP 148/92 H 06/07/18 18:00 Pulse Ox 99 06/07/18 06:00 - Labs Result Diagrams: 06/07/18 03:04 06/07/18 03:04 Labs: Laboratory Results - last 24 hr 06/06/18 06/06/18 06/06/18 18:45 18:45 18:45 WBC 21.8 H D RBC 5.29 Hgb 17.4 H D Hct 52.6 H MCV 99.4 MCH 32.9 MCHC 33.1 RDW 15.1 H Plt Count 435 MPV 10.4 Neut % (Auto) 52.9 Lymph % (Auto) 38.6 H [place]s % (Auto) 7.1 H Eos % (Auto) 1.2 L Baso % (Auto) 0.2 Lymph # (Auto) 8.4 H [place] # (Auto) 1.5 H Eos # (Auto) 0.3 Baso # (Auto) 0.04 Absolute Neuts (auto) 11.54 H pCO2 pO2 290 H HCO3 ABG pH ABG Total CO2 ABG O2 Saturation ABG O2 Content ABG Base Excess ABG Hemoglobin ABG Carboxyhemoglobin POC ABG HHb (Measured) ABG Methemoglobin ABG O2 Capacity VBG pH 7.21 L VBG pCO2 80.0 H* VBG HCO3 32.0 H VBG Total CO2 34.5 H VBG O2 Sat (Calc) 100.4 H VBG Base Excess 1.7 VBG Potassium 4.2 Hgb O2 Saturation Sodium 141.0 139 Chloride 104.0 100 Glucose 198 H Lactate 2.2 H FiO2 21.0 Crit Value Called To Carmen mcdonald Crit Value Called By [facility] Blood Gas Notified Time 1923 Potassium 4.3 Carbon Dioxide 28 Anion Gap 16 BUN 16 Creatinine 0.9 Est GFR ( Amer) > 60 Est GFR (Non-Af Amer) > 60 Random Glucose 185 H Calcium 8.1 L Phosphorus Magnesium Total Bilirubin 0.7 AST 60 H D ALT 54 Alkaline Phosphatase 69 Total Creatine Kinase Troponin I < 0.01 NT-Pro-B Natriuret Pep 65.5 Total Protein 7.8 Albumin 4.3 Globulin 3.6 Albumin/Globulin Ratio 1.2 Lipase 108 Procalcitonin Venous Blood Potassium 4.2 Urine Color Urine Appearance Urine pH Ur Specific [place] Urine Protein Urine Glucose (UA) Urine Ketones Urine Blood Urine Nitrate Urine Bilirubin Urine Urobilinogen Ur Leukocyte Esterase Urine RBC Urine WBC Ur Epithelial Cells Uric Acid Crystals Urine Bacteria Urine Opiates Screen Urine Methadone Screen Ur Barbiturates Screen Ur Phencyclidine Scrn Ur Amphetamines Screen U Benzodiazepines Scrn U Oth Cocaine Metabols U Cannabinoids Screen Alcohol, Quantitative 06/06/18 06/06/18 06/06/18 18:45 18:45 20:40 WBC RBC Hgb Hct MCV MCH MCHC RDW Plt Count MPV Neut % (Auto) Lymph % (Auto) [place] % (Auto) Eos % (Auto) Baso % (Auto) Lymph # (Auto) [place] # (Auto) Eos # (Auto) Baso # (Auto) Absolute Neuts (auto) pCO2 59 H pO2 70.0 L HCO3 27.7 ABG pH 7.28 L ABG Total CO2 29.5 H ABG O2 Saturation 95.3 ABG O2 Content 19.4 ABG Base Excess -0.5 ABG Hemoglobin 15.4 ABG Carboxyhemoglobin 4.8 H POC ABG HHb (Measured) 4.4 ABG Methemoglobin 1.0 ABG O2 Capacity 20.4 VBG pH VBG pCO2 VBG HCO3 VBG Total CO2 VBG O2 Sat (Calc) VBG Base Excess VBG Potassium Hgb O2 Saturation 89.8 L Sodium Chloride Glucose Lactate FiO2 32.0 Crit Value Called To Crit Value Called By Blood Gas Notified Time Potassium Carbon Dioxide Anion Gap BUN Creatinine Est GFR ( Amer) Est GFR (Non-Af Amer) Random Glucose Calcium Phosphorus Magnesium Total Bilirubin AST ALT Alkaline Phosphatase Total Creatine Kinase 41 Troponin I NT-Pro-B Natriuret Pep Total Protein Albumin Globulin Albumin/Globulin Ratio Lipase Procalcitonin Venous Blood Potassium Urine Color Urine Appearance Urine pH Ur Specific [place] Urine Protein Urine Glucose (UA) Urine Ketones Urine Blood Urine Nitrate Urine Bilirubin Urine Urobilinogen Ur Leukocyte Esterase Urine RBC Urine WBC Ur Epithelial Cells Uric Acid Crystals Urine Bacteria Urine Opiates Screen Urine Methadone Screen Ur Barbiturates Screen Ur Phencyclidine Scrn Ur Amphetamines Screen U Benzodiazepines Scrn U Oth Cocaine Metabols U Cannabinoids Screen Alcohol, Quantitative 133 H 06/06/18 06/06/18 06/06/18 21:00 22:41 23:48 WBC RBC Hgb Hct MCV MCH MCHC RDW Plt Count MPV Neut % (Auto) Lymph % (Auto) [place] % (Auto) Eos % (Auto) Baso % (Auto) Lymph # (Auto) [place] # (Auto) Eos # (Auto) Baso # (Auto) Absolute Neuts (auto) pCO2 pO2 23 L 37 HCO3 ABG pH ABG Total CO2 ABG O2 Saturation ABG O2 Content ABG Base Excess ABG Hemoglobin ABG Carboxyhemoglobin POC ABG HHb (Measured) ABG Methemoglobin ABG O2 Capacity VBG pH 7.25 L 7.27 L VBG pCO2 73.0 H* 66.0 H* VBG HCO3 32.0 H 30.3 H VBG Total CO2 34.2 H 32.3 H VBG O2 Sat (Calc) 38.6 L 69.8 H VBG Base Excess 2.5 H 1.6 VBG Potassium 4.1 4.4 Hgb O2 Saturation Sodium 141.0 140.0 Chloride 102.0 102.0 Glucose 219 H 237 H Lactate 3.6 H 4.0 H* FiO2 21.0 21.0 Crit Value Called To Venu cunningham rn 2rno Crit Value Called By [facility] Blood Gas Notified Time [id number] 26 Potassium Carbon Dioxide Anion Gap BUN Creatinine Est GFR ( Amer) Est GFR (Non-Af Amer) Random Glucose Calcium Phosphorus Magnesium Total Bilirubin AST ALT Alkaline Phosphatase Total Creatine Kinase Troponin I NT-Pro-B Natriuret Pep Total Protein Albumin Globulin Albumin/Globulin Ratio Lipase Procalcitonin < 0.05 L Venous Blood Potassium 4.1 4.4 Urine Color Urine Appearance Urine pH Ur Specific [place] Urine Protein Urine Glucose (UA) Urine Ketones Urine Blood Urine Nitrate Urine Bilirubin Urine Urobilinogen Ur Leukocyte Esterase Urine RBC Urine WBC Ur Epithelial Cells Uric Acid Crystals Urine Bacteria Urine Opiates Screen Urine Methadone Screen Ur Barbiturates Screen Ur Phencyclidine Scrn Ur Amphetamines Screen U Benzodiazepines Scrn U Oth Cocaine Metabols U Cannabinoids Screen Alcohol, Quantitative 06/06/18 06/06/18 06/07/18 23:55 23:55 03:04 WBC 13.4 H D RBC 4.67 Hgb 15.1 D Hct 46.3 MCV 99.1 MCH 32.3 MCHC 32.6 RDW 15.3 H Plt Count 301 MPV 10.7 Neut % (Auto) 89.5 H Lymph % (Auto) 7.5 L [place] % (Auto) 2.7 Eos % (Auto) 0.1 L Baso % (Auto) 0.2 Lymph # (Auto) 1.0 L [place] # (Auto) 0.4 Eos # (Auto) 0.0 Baso # (Auto) 0.03 Absolute Neuts (auto) 11.99 H pCO2 pO2 HCO3 ABG pH ABG Total CO2 ABG O2 Saturation ABG O2 Content ABG Base Excess ABG Hemoglobin ABG Carboxyhemoglobin POC ABG HHb (Measured) ABG Methemoglobin ABG O2 Capacity VBG pH VBG pCO2 VBG HCO3 VBG Total CO2 VBG O2 Sat (Calc) VBG Base Excess VBG Potassium Hgb O2 Saturation Sodium Chloride Glucose Lactate FiO2 Crit Value Called To Crit Value Called By Blood Gas Notified Time Potassium Carbon Dioxide Anion Gap BUN Creatinine Est GFR ( Amer) Est GFR (Non-Af Amer) Random Glucose Calcium Phosphorus Magnesium Total Bilirubin AST ALT Alkaline Phosphatase Total Creatine Kinase Troponin I NT-Pro-B Natriuret Pep Total Protein Albumin Globulin Albumin/Globulin Ratio Lipase Procalcitonin Venous Blood Potassium Urine Color Yellow Urine Appearance Clear Urine pH 5.5 Ur Specific [place] >= 1.030 Urine Protein Negative Urine Glucose (UA) 100 H Urine Ketones Negative Urine Blood Trace-intact H Urine Nitrate Negative Urine Bilirubin Negative Urine Urobilinogen 0.2 Ur Leukocyte Esterase Negative Urine RBC 0 - 2 Urine WBC 0 - 2 Ur Epithelial Cells 3 - 4 Uric Acid Crystals Mod Urine Bacteria None Urine Opiates Screen Positive H Urine Methadone Screen Negative Ur Barbiturates Screen Negative Ur Phencyclidine Scrn Negative Ur Amphetamines Screen Negative U Benzodiazepines Scrn Positive H U Oth Cocaine Metabols Negative U Cannabinoids Screen Negative Alcohol, Quantitative 06/07/18 06/07/18 06/07/18 03:04 03:04 09:50 WBC RBC Hgb Hct MCV MCH MCHC RDW Plt Count MPV Neut % (Auto) Lymph % (Auto) [place] % (Auto) Eos % (Auto) Baso % (Auto) Lymph # (Auto) [place] # (Auto) Eos # (Auto) Baso # (Auto) Absolute Neuts (auto) pCO2 pO2 35 HCO3 ABG pH ABG Total CO2 ABG O2 Saturation ABG O2 Content ABG Base Excess ABG Hemoglobin ABG Carboxyhemoglobin POC ABG HHb (Measured) ABG Methemoglobin ABG O2 Capacity VBG pH 7.25 L VBG pCO2 81.0 H* VBG HCO3 35.5 H VBG Total CO2 38.0 H VBG O2 Sat (Calc) 63.1 VBG Base Excess 5.4 H VBG Potassium 5.2 Hgb O2 Saturation Sodium 137 140.0 Chloride 102 100.0 Glucose 132 H Lactate 1.7 FiO2 21.0 Crit Value Called To Maira murry rn 2rno Crit Value Called By [facility] Blood Gas Notified Time 324 Potassium 5.0 Carbon Dioxide 32 Anion Gap 8 L BUN 16 Creatinine 0.8 Est GFR ( Amer) > 60 Est GFR (Non-Af Amer) > 60 Random Glucose 137 H Calcium 8.5 Phosphorus 4.6 H Magnesium 2.0 Total Bilirubin 0.4 AST 36 D ALT 49 Alkaline Phosphatase 62 Total Creatine Kinase Troponin I < 0.01 NT-Pro-B Natriuret Pep Total Protein 6.7 Albumin 3.6 Globulin 3.0 Albumin/Globulin Ratio 1.2 Lipase Procalcitonin Venous Blood Potassium 5.2 Urine Color Urine Appearance Urine pH Ur Specific [place] Urine Protein Urine Glucose (UA) Urine Ketones Urine Blood Urine Nitrate Urine Bilirubin Urine Urobilinogen Ur Leukocyte Esterase Urine RBC Urine WBC Ur Epithelial Cells Uric Acid Crystals Urine Bacteria Urine Opiates Screen Urine Methadone Screen Ur Barbiturates Screen Ur Phencyclidine Scrn Ur Amphetamines Screen U Benzodiazepines Scrn U Oth Cocaine Metabols U Cannabinoids Screen Alcohol, Quantitative 06/07/18 06/07/18 09:50 15:50 WBC RBC Hgb Hct MCV MCH MCHC RDW Plt Count MPV Neut % (Auto) Lymph % (Auto) [place] % (Auto) Eos % (Auto) Baso % (Auto) Lymph # (Auto) [place] # (Auto) Eos # (Auto) Baso # (Auto) Absolute Neuts (auto) pCO2 pO2 HCO3 ABG pH ABG Total CO2 ABG O2 Saturation ABG O2 Content ABG Base Excess ABG Hemoglobin ABG Carboxyhemoglobin POC ABG HHb (Measured) ABG Methemoglobin ABG O2 Capacity VBG pH VBG pCO2 VBG HCO3 VBG Total CO2 VBG O2 Sat (Calc) VBG Base Excess VBG Potassium Hgb O2 Saturation Sodium Chloride Glucose Lactate FiO2 Crit Value Called To Crit Value Called By Blood Gas Notified Time Potassium Carbon Dioxide Anion Gap BUN Creatinine Est GFR ( Amer) Est GFR (Non-Af Amer) Random Glucose Calcium Phosphorus Magnesium Total Bilirubin AST ALT Alkaline Phosphatase Total Creatine Kinase < 20 L Troponin I < 0.01 NT-Pro-B Natriuret Pep Total Protein Albumin Globulin Albumin/Globulin Ratio Lipase Procalcitonin Venous Blood Potassium Urine Color Urine Appearance Urine pH Ur Specific [place] Urine Protein Urine Glucose (UA) Urine Ketones Urine Blood Urine Nitrate Urine Bilirubin Urine Urobilinogen Ur Leukocyte Esterase Urine RBC Urine WBC Ur Epithelial Cells Uric Acid Crystals Urine Bacteria Urine Opiates Screen Urine Methadone Screen Ur Barbiturates Screen Ur Phencyclidine Scrn Ur Amphetamines Screen U Benzodiazepines Scrn U Oth Cocaine Metabols U Cannabinoids Screen Alcohol, Quantitative Attending/Attestation - Attestation I have personally seen and examined this patient.: Yes I have fully participated in the care of the patient.: Yes I have reviewed all pertinent clinical information: Yes Notes (Text): 06/07/18 19:15 Seen and examined. A &P formulated and discussed with resident.
[2018-06-06 20:48] LABS: ARTERIAL BLOOD GAS HCO3 27.7 mmol/L (21-28); ARTERIAL BLOOD GAS HEMOGLOBIN 15.4 g/dL (11.7-17.4); ARTERIAL BLOOD GAS O2 CAPACITY 20.4 mL/dl (16-24); ARTERIAL BLOOD GAS O2 CONTENT 19.4 ML/dl (15-23); ARTERIAL BLOOD GAS O2 SAT 95.3 % (95-98); ARTERIAL BLOOD GAS PCO2 59 mm/Hg (35-45); ARTERIAL BLOOD GAS PH 7.28 (7.35-7.45); ARTERIAL BLOOD GAS TCO2 29.5 mmol.L (22-28)
[2018-06-06] MEDS ORDERED: Sodium Chloride 0.9% 100 ML IV SCH (21:00)
[2018-06-06 22:46] LABS: VENOUS BLOOD GAS BASE EXCESS 2.5 mmol/L (0.0-2.0); VENOUS BLOOD GAS PO2 23 mm/Hg (30-55); VENOUS BLOOD PH 7.25 (7.32-7.43)
[2018-06-07 00:08] LABS: PH,URINE 5.5 (4.7-8.0); URINE BILIRUBIN NEGATIVE (NEGATIVE); URINE BLOOD TRACE-INTACT (NEGATIVE); URINE GLUCOSE (UA) 100 mg/dL (NEGATIVE); URINE LEUKOCYTE ESTERASE NEGATIVE Leu/uL (NEGATIVE); URINE PROTEIN NEGATIVE mg/dL (<30 mg/dL); URINE UROBILINOGEN 0.2 E.U./dL (<1 E.U./dL)
[2018-06-07] MEDS: Sodium Chloride 0.9% 1,000 ML IV SCH ×2 (00:09→10:02)
[2018-06-07] MEDS ORDERED: Dextrose 50% SYRINGE Inj (50 ml) IV PRN (00:13)
[2018-06-07 00:14] LABS: URINE APPEARANCE CLEAR (CLEAR); URINE COLOR YELLOW (YELLOW)
[2018-06-07 00:20] LABS: URINE RBC 0 - 2 /hpf (0-2); URINE URIC ACID CRYSTALS MOD /hpf; URINE WBC 0 - 2 /hpf (0-6)
[2018-06-07 00:26] LABS: VENOUS BLOOD GAS BASE EXCESS 1.6 mmol/L (0.0-2.0); VENOUS BLOOD GAS PO2 37 mm/Hg (30-55); VENOUS BLOOD PH 7.27 (7.32-7.43)
[2018-06-07 00:53] LABS: BARBITURATES, UR NEGATIVE (NEGATIVE); BENZODIAZEPINES, UR POSITIVE (NEGATIVE); OPIATES, UR POSITIVE (NEGATIVE); PHENCYCLIDINE, UR NEGATIVE (NEGATIVE)
[2018-06-07 03:24] LABS: VENOUS BLOOD GAS BASE EXCESS 5.4 mmol/L (0.0-2.0); VENOUS BLOOD GAS PO2 35 mm/Hg (30-55); VENOUS BLOOD PH 7.25 (7.32-7.43)
[2018-06-07 03:37] LABS: BLOOD UREA NITROGEN 16 mg/dL (7-21); GFR NON-AFRICAN AMERICAN > 60
[2018-06-07 03:38] LABS: ALB/GLOB RATIO 1.2 (1.1-1.8); ALBUMIN 3.6 g/dL (3.0-4.8); ALT/SGPT 49 U/L (7-56); AST/SGOT 36 U/L (14-36); CALCIUM 8.5 mg/dL (8.4-10.5)
[2018-06-07 04:07] LABS: HEMOGLOBIN 15.1 g/dL (12.0-16.0); MEAN CELL VOLUME 99.1 fl (80.0-105.0); RBC 4.67 10^6/uL (3.5-6.1); WHITE BLOOD COUNT 13.4 10^3/uL (4.5-11.0)
[2018-06-07 04:08] LABS: BASO # 0.03 K/mm3 (0.0-2.0); BASO % 0.2 % (0.0-3.0); EOS % 0.1 % (1.5-5.0); LYMPH % 7.5 % (22.0-35.0); MEAN CORPUSCULAR HEMOGLOBIN 32.3 pg (25.0-35.0); MEAN CORPUSCULAR HGB CONC 32.6 g/dl (31.0-37.0); MEAN PLATELET VOLUME 10.7 fl (7.0-11.0); MONO # 0.4 (0.1-0.6); MONO % 2.7 % (1.0-6.0); RED CELL DISTRIBUTION WIDTH 15.3 % (11.5-14.5)
[2018-06-07 06:51] VITALS: O2SAT 99
[2018-06-07] MEDS: Enoxaparin 40 mg Syringe SC SCH (10:04)
[2018-06-07] MEDS: Multivitamin Vitamin B Complex (Nephro-Vite) Tab PO SCH (10:04)
[2018-06-07] MEDS: Insulin Reg-HIGH-Coverage SC SCH ×4 (10:05→22:01)
[2018-06-07] MEDS: Albuterol-Ipratrop 3 mg / 0.5 (3 ml) UD IH PRN ×2 (11:06→20:05)
--- NOTE | 2018-06-07 14:21 | CP.PCM.PN ---
<Danette Guzmán - Last Filed: 06/07/18 14:15> Subjective - Date & Time of Evaluation Date of Evaluation: 06/07/18 Time of Evaluation: 14:15 - Subjective Subjective: Danette Guzmán, PGY-1, Internal Medicine Progress Note for Dr. Cardona Patient seen and evaluated at bedside. Patient had no acute overnight events. Last CIWA score was 3. Patient complained of headache, chest pain, shortness of breath, and nausea. Patient denied abdominal pain, constipation, diarrhea, dysuria, hematuria. 12-point ROS was unremarkable except for what was mentioned above. Objective - Vital Signs/Intake and Output Vital Signs (last 24 hours): Temp Pulse Resp BP Pulse Ox 98.6 F 72 18 134/95 H 99 06/07/18 12:00 06/07/18 13:11 06/07/18 12:00 06/07/18 12:00 06/07/18 06:00 Intake and Output: 06/07/18 06/07/18 06:59 18:59 Intake Total 640 1280 Balance 640 1280 - Medications Medications: Current Medications Acetaminophen (Tylenol 325mg Tab) 650 mg PO Q6H PRN PRN Reason: Fever >100.4 F Albuterol/Ipratropium (Duoneb 3 Mg/0.5 Mg (3 Ml) Ud) 3 ml IH [id number] PRN PRN Reason: Shortness of Breath Last Admin: 06/07/18 11:06 Dose: 3 ml Chlordiazepoxide (Librium) 5 mg PO Q8 JACK; Protocol Last Admin: 06/07/18 13:38 Dose: 5 mg Dextrose (Dextrose 50% Inj) 0 ml IV STAT PRN; Protocol PRN Reason: Hypoglycemia Protocol Enoxaparin Sodium (Lovenox) 40 mg SC DAILY JACK; Protocol Last Admin: 06/07/18 10:04 Dose: 40 mg Famotidine (Pepcid) 40 mg PO HS JACK Last Admin: 06/06/18 23:19 Dose: 40 mg Folic Acid (Folic Acid) 1 mg PO DAILY JACK Last Admin: 06/07/18 10:04 Dose: 1 mg Sodium Chloride (Sodium Chloride 0.9%) 1,000 mls @ 100 mls/hr IV .Q10H JACK Last Admin: 06/07/18 10:02 Dose: 100 mls/hr Dextrose (Dextrose 5% In Water 1000 Ml) 1,000 mls @ 0 mls/hr IV .Q0M PRN; Protocol PRN Reason: Hypoglycemia Protocol Ibuprofen (Motrin Tab) 600 mg PO Q6H PRN PRN Reason: Pain, moderate (4-7) Last Admin: 06/07/18 10:04 Dose: 600 mg Insulin Human Regular (Humulin R High) 0 units SC ACHS JACK; Protocol Last Admin: 06/07/18 13:25 Dose: Not Given Ondansetron HCl (Zofran Inj) 4 mg IVP Q4H PRN PRN Reason: Nausea/Vomiting Thiamine HCl (Vitamin B1 Tab) 100 mg PO DAILY [facility] Last Admin: 06/07/18 10:04 Dose: 100 mg Vitamin B Complex/Vit C/Folic Acid (Nephro-Jorge) 1 tab PO 0800 [facility] Last Admin: 06/07/18 10:04 Dose: 1 tab - Labs Labs: 06/07/18 03:04 06/07/18 03:04 - Constitutional Appears: Well, Non-toxic, No Acute Distress - Head Exam Head Exam: ATRAUMATIC, NORMAL INSPECTION, NORMOCEPHALIC - Eye Exam Eye Exam: EOMI, PERRL - ENT Exam ENT Exam: Mucous Membranes Moist - Neck Exam Neck Exam: Full ROM - Respiratory Exam Respiratory Exam: Wheezes - Cardiovascular Exam Cardiovascular Exam: REGULAR RHYTHM, RRR - GI/Abdominal Exam GI & Abdominal Exam: Soft, Normal Bowel Sounds. absent: Tenderness - Extremities Exam Extremities Exam: Full ROM Additional comments: bilateral lower extremity pain - Neurological Exam Neurological Exam: Alert, Awake, CN II-XII Intact, Oriented x3 - Skin Skin Exam: Dry, Intact Assessment and Plan - Assessment and Plan (Free Text) Assessment: 47 year old female well known to [facility] with past medical history of asthma, COPD, polysubstance abuse, hepatitis C, liver cirrhosis presented status post heroin overdose. Patient regained consciousness after administration of IV narcan. Patient was admitted for hypoxic, hypercarbic respiratory acidosis. Patient was recently discharged for COPD exacerbation and polysubstance abuse. Plan: Hypoxic, hypercarbic respiratory acidosis 2/2 to likely COPD -ABG: pH: 7.28, PO2: 70, pCO2: 59 -Likely 2/2 to COPD vs. polysubstance abuse. Likely chronic CO2 retainer from COPD -Continue with nasal cannula and keep O2 saturation above 88% -Patient has mild wheezes on examination. Will start duonebs 3 ml Q4 Alcohol abuse -Last CIWA was 3. Alcohol level 133 on admission. -CIWA protocol was initiated on admission Q4 -Patient counseled regarding importance of alcohol cessation -Continue with Librium 5 mg Q8 for withdrawal symptoms -Continue with nutritional supplemental including MVI, thiamine, and folate. -Continue with Zofran 4 mg Q6 for nausea. -Fall and seizure precautions Chest pain with ACS rule out -EKG: NSR with HR: 68 -Troponinx2 is negative. -Unlikely 2/2 to ACS at this time. Polysubstance abuse -UDS: positive for opiates, benzodiazepines -Patient status post narcan administration -Patient counseled regarding dangers of recreational drug overdose -Fall and seizure precautions Leukocytosis -Likely secondary to steroid use from prior admission vs. stress induced from heroin overdose vs. infection -Lactate increased at 4, procalcitonin is <0.05 -UA: shows no sign of UTI -Ordered CXR to rule out pneumonia -Follow up blood and urine cultures -Continue to monitor at this time. Hyperglycemia -Elevated at 185 on admission -Follow up HgbA1c -Continue with sliding scale insulin -Accuchecks GI prophylaxis: pepcid 40 mg daily DVT prophylaxis: Lovenox 40 mg daily Patient plan discussed with attending. <Soo Cardona - Last Filed: 06/09/18 11:06> Objective - Vital Signs/Intake and Output Vital Signs (last 24 hours): Temp Pulse Resp BP Pulse Ox 97.8 F 76 20 133/90 99 06/08/18 18:00 06/08/18 18:00 06/08/18 18:00 06/08/18 18:00 06/08/18 06:00 - Labs Labs: 06/08/18 07:15 06/08/18 07:15 Attending/Attestation - Attestation I have personally seen and examined this patient.: Yes I have fully participated in the care of the patient.: Yes I have reviewed all pertinent clinical information, including history, physical exam and plan: Yes Notes (Text): 06/09/18 11:04 Patient was seen and examined with medical secretary teacher. 47 year old female with PMH of COPD, polysubstance abuse, Hepatitis C, Cirrhosis was admitted with Narcotic overdose. Respiratory acidosis and hypercapnia at the time of admission was due to Narcotic overdose.Patient is back to her base line. She has minimal wheezing and does not need any IV steroid or oral steroid. Continie monitoring for Narcotic and alcohol withdrawal. Issue of ongoing smoking,alcohol and drug abuse was discussed in detail. The issue of compliance with medication and follow up with [facility] was discussed in detail. Prognosis is guarded due to ongoing alcohol/drug abuse and non compliance.
--- NOTE | 2018-06-07 21:49 | CARD ---
APPROVED REPORT Date of service: 06/06/2018 EKG Measurement Heart [id number] <Conclusion> Sinus tachycardia Otherwise normal ECG
[2018-06-07] MEDS ORDERED: Sodium Chloride 0.9% 1,000 ML IV SCH (21:52)
--- NOTE | 2018-06-07 23:18 | CARD ---
APPROVED REPORT Date of service: 06/07/2018 EKG Measurement Heart [id number] <Conclusion> Normal sinus rhythm Normal ECG
[2018-06-08 07:26] LABS: BASO # 0.01 K/mm3 (0.0-2.0); BASO % 0.1 % (0.0-3.0); EOS # 0.2 (0.0-0.7); EOS % 1.2 % (1.5-5.0); HEMOGLOBIN 13.8 g/dL (12.0-16.0); LYMPH # 3.2 (1.2-3.4); LYMPH % 25.7 % (22.0-35.0); MEAN CELL VOLUME 100.5 fl (80.0-105.0); MEAN CORPUSCULAR HEMOGLOBIN 31.7 pg (25.0-35.0); MEAN CORPUSCULAR HGB CONC 31.5 g/dl (31.0-37.0); MEAN PLATELET VOLUME 10.3 fl (7.0-11.0); MONO % 8.1 % (1.0-6.0); RBC 4.36 10^6/uL (3.5-6.1); RED CELL DISTRIBUTION WIDTH 14.8 % (11.5-14.5); WHITE BLOOD COUNT 12.5 10^3/uL (4.5-11.0)
[2018-06-08] MEDS: Albuterol-Ipratrop 3 mg / 0.5 (3 ml) UD IH PRN (07:30)
[2018-06-08 07:50] LABS: ALB/GLOB RATIO 1.1 (1.1-1.8); ALBUMIN 3.1 g/dL (3.0-4.8); ALT/SGPT 37 U/L (7-56); AST/SGOT 44 U/L (14-36); BLOOD UREA NITROGEN 16 mg/dL (7-21); CALCIUM 8.1 mg/dL (8.4-10.5); GFR NON-AFRICAN AMERICAN > 60
[2018-06-08] MEDS: Multivitamin Vitamin B Complex (Nephro-Vite) Tab PO SCH (08:03)
[2018-06-08] MEDS: Insulin Reg-HIGH-Coverage SC SCH ×2 (08:17→12:30)
--- NOTE | 2018-06-08 09:36 | RAD ---
Date of service: 06/07/2018 HISTORY: rule out pneumonia COMPARISON: 06/02/2018 FINDINGS: LUNGS: No active pulmonary disease. PLEURA: No significant pleural effusion identified, no pneumothorax apparent. CARDIOVASCULAR: No aortic atherosclerotic calcification present. Normal cardiac size. No pulmonary vascular congestion. OSSEOUS STRUCTURES: No significant abnormalities. VISUALIZED UPPER ABDOMEN: Normal. OTHER FINDINGS: None. IMPRESSION: No active disease.
[2018-06-08] MEDS: Enoxaparin 40 mg Syringe SC SCH (11:06)
--- NOTE | 2018-06-08 14:01 | CP.PCM.DIS ---
<NealbalajiDanette duffy - Last Filed: 06/08/18 13:50> Provider - Provider Date of Admission: 06/06/18 20:11 Attending physician: Soo Cardona MD Primary care physician: NO PRIMARY CARE PROVIDER Consults: 06/06/18 23:20 Social Work Referral Routine Comment: met criteria Physician Instructions: Reason For Exam: met criteria Time Spent in preparation of Discharge (in minutes): 60 Diagnosis - Discharge Diagnosis (1) Polysubstance (including opioids) dependence with physiological dependence Status: Acute (2) COPD (chronic obstructive pulmonary disease) Status: Chronic Priority: Medium Hospital Course - Lab Results Lab Results: Micro Results 06/06/18 23:55 Urine Random Urine Culture - Final No Growth (<1,000 CFU/ML) 06/06/18 19:00 Blood Blood Culture - Preliminary NO GROWTH AFTER 24 HOURS 06/06/18 18:45 Blood Blood Culture - Preliminary NO GROWTH AFTER 24 HOURS Most Recent Lab Values WBC 12.5 10^3/uL (4.5-11.0) H 06/08/18 07:15 RBC 4.36 10^6/uL (3.5-6.1) 06/08/18 07:15 Hgb 13.8 g/dL (12.0-16.0) 06/08/18 07:15 Hct 43.8 % (36.0-48.0) 06/08/18 07:15 MCV 100.5 fl (80.0-105.0) 06/08/18 07:15 MCH 31.7 pg (25.0-35.0) 06/08/18 07:15 MCHC 31.5 g/dl (31.0-37.0) 06/08/18 07:15 RDW 14.8 % (11.5-14.5) H 06/08/18 07:15 Plt Count 255 10^3/uL (120.0-450.0) 06/08/18 07:15 MPV 10.3 fl (7.0-11.0) 06/08/18 07:15 Neut % (Auto) 64.9 % (50.0-68.0) 06/08/18 07:15 Lymph % (Auto) 25.7 % (22.0-35.0) 06/08/18 07:15 Grant % (Auto) 8.1 % (1.0-6.0) H 06/08/18 07:15 Eos % (Auto) 1.2 % (1.5-5.0) L 06/08/18 07:15 Baso % (Auto) 0.1 % (0.0-3.0) 06/08/18 07:15 Lymph # (Auto) 3.2 (1.2-3.4) 06/08/18 07:15 Grant # (Auto) 1.0 (0.1-0.6) H 06/08/18 07:15 Eos # (Auto) 0.2 (0.0-0.7) 06/08/18 07:15 Baso # (Auto) 0.01 K/mm3 (0.0-2.0) 06/08/18 07:15 Absolute Neuts (auto) 8.09 (1.4-6.5) H 06/08/18 07:15 pCO2 59 mm/Hg (35-45) H 06/06/18 20:40 pO2 35 mm/Hg (30-55) 06/07/18 03:04 HCO3 27.7 mmol/L (21-28) 06/06/18 20:40 ABG pH 7.28 (7.35-7.45) L 06/06/18 20:40 ABG Total CO2 29.5 mmol.L (22-28) H 06/06/18 20:40 ABG O2 Saturation 95.3 % (95-98) 06/06/18 20:40 ABG O2 Content 19.4 ML/dl (15-23) 06/06/18 20:40 ABG Base Excess -0.5 mmol/L (-2.0-3.0) 06/06/18 20:40 ABG Hemoglobin 15.4 g/dL (11.7-17.4) 06/06/18 20:40 ABG Carboxyhemoglobin 4.8 % (0.5-1.5) H 06/06/18 20:40 POC ABG HHb (Measured) 4.4 % (0-5) 06/06/18 20:40 ABG Methemoglobin 1.0 % (0.0-3.0) 06/06/18 20:40 ABG O2 Capacity 20.4 mL/dl (16-24) 06/06/18 20:40 VBG pH 7.25 (7.32-7.43) L 06/07/18 03:04 VBG pCO2 81.0 (40-60) H* 06/07/18 03:04 VBG HCO3 35.5 mmol/l (21-28) H 06/07/18 03:04 VBG Total CO2 38.0 mmol.L (22-28) H 06/07/18 03:04 VBG O2 Sat (Calc) 63.1 % (40-65) 06/07/18 03:04 VBG Base Excess 5.4 mmol/L (0.0-2.0) H 06/07/18 03:04 VBG Potassium 5.2 mmol/L (3.6-5.2) 06/07/18 03:04 Hgb O2 Saturation 89.8 % (95.0-98.0) L 06/06/18 20:40 Sodium 140.0 mmol/L (132-148) 06/07/18 03:04 Chloride 100.0 mmol/L (98-107) 06/07/18 03:04 Glucose 132 mg/dl (65-105) H 06/07/18 03:04 Lactate 1.7 mmol/L (0.7-2.1) 06/07/18 03:04 FiO2 21.0 % 06/07/18 03:04 Crit Value Called To Maira murry rn 2rno 06/07/18 03:04 Crit Value Called By Shanti 06/07/18 03:04 Blood Gas Notified Time 324 06/07/18 03:04 Sodium 138 mmol/L (132-148) 06/08/18 07:15 Potassium 4.8 mmol/L (3.6-5.0) 06/08/18 07:15 Chloride 101 mmol/L (98-107) 06/08/18 07:15 Carbon Dioxide 38 mmol/L (21-33) H 06/08/18 07:15 Anion Gap 4 (10-20) L 06/08/18 07:15 BUN 16 mg/dL (7-21) 06/08/18 07:15 Creatinine 0.6 mg/dl (0.7-1.2) L 06/08/18 07:15 Est GFR ( Amer) > 60 06/08/18 07:15 Est GFR (Non-Af Amer) > 60 06/08/18 07:15 Random Glucose 85 mg/dL (70-110) 06/08/18 07:15 Calcium 8.1 mg/dL (8.4-10.5) L 06/08/18 07:15 Phosphorus 4.6 mg/dL (2.5-4.5) H 06/07/18 03:04 Magnesium 2.0 mg/dL (1.7-2.2) 06/07/18 03:04 Total Bilirubin 0.5 mg/dL (0.2-1.3) 06/08/18 07:15 AST 44 U/L (14-36) H D 06/08/18 07:15 ALT 37 U/L (7-56) 06/08/18 07:15 Alkaline Phosphatase 53 U/L (38-126) 06/08/18 07:15 Total Creatine Kinase < 20 U/L (35-230) L 06/07/18 09:50 Troponin I < 0.01 ng/mL 06/07/18 15:50 NT-Pro-B Natriuret Pep 65.5 pg/mL (0-450) 06/06/18 18:45 Total Protein 5.8 g/dL (5.8-8.3) 06/08/18 07:15 Albumin 3.1 g/dL (3.0-4.8) 06/08/18 07:15 Globulin 2.7 gm/dL 06/08/18 07:15 Albumin/Globulin Ratio 1.1 (1.1-1.8) 06/08/18 07:15 Lipase 108 U/L (23-300) 06/06/18 18:45 Procalcitonin < 0.05 NG/ML (0.19-0.49) L 06/07/18 16:40 Venous Blood Potassium 5.2 mmol/L (3.6-5.2) 06/07/18 03:04 Urine Color Yellow (YELLOW) 06/06/18 23:55 Urine Appearance Clear (CLEAR) 06/06/18 23:55 Urine pH 5.5 (4.7-8.0) 06/06/18 23:55 Ur Specific [place] >= 1.030 (1.005-1.035) 06/06/18 23:55 Urine Protein Negative mg/dL (<30 mg/dL) 06/06/18 23:55 Urine Glucose (UA) 100 mg/dL (NEGATIVE) H 06/06/18 23:55 Urine Ketones Negative mg/dL (NEGATIVE) 06/06/18 23:55 Urine Blood Trace-intact (NEGATIVE) H 06/06/18 23:55 Urine Nitrate Negative (NEGATIVE) 06/06/18 23:55 Urine Bilirubin Negative (NEGATIVE) 06/06/18 23:55 Urine Urobilinogen 0.2 E.U./dL (<1 E.U./dL) 06/06/18 23:55 Ur Leukocyte Esterase Negative Erik/uL (NEGATIVE) 06/06/18 23:55 Urine RBC 0 - 2 /hpf (0-2) 06/06/18 23:55 Urine WBC 0 - 2 /hpf (0-6) 06/06/18 23:55 Ur Epithelial Cells 3 - 4 /hpf (0-5) 06/06/18 23:55 Uric Acid Crystals Mod /hpf (NONE) 06/06/18 23:55 Urine Bacteria None /hpf (NONE) 06/06/18 23:55 Urine Opiates Screen Positive (NEGATIVE) H 06/06/18 23:55 Urine Methadone Screen Negative (NEGATIVE) 06/06/18 23:55 Ur Barbiturates Screen Negative (NEGATIVE) 06/06/18 23:55 Ur Phencyclidine Scrn Negative (NEGATIVE) 06/06/18 23:55 Ur Amphetamines Screen Negative (NEGATIVE) 06/06/18 23:55 U Benzodiazepines Scrn Positive (NEGATIVE) H 06/06/18 23:55 U Oth Cocaine Metabols Negative (NEGATIVE) 06/06/18 23:55 U Cannabinoids Screen Negative (NEGATIVE) 06/06/18 23:55 Alcohol, Quantitative 133 mg/dL (0-10) H 06/06/18 18:45 - Hospital Course Hospital Course: Danette Guzmán, PGY-1, Internal Medicine Discharge Summary for Dr. Cardona 47 year old female with past medical history of asthma, COPD, polysubstance abuse, hepatitis C, liver cirrhosis presented status post heroin overdose. Patient used one bag of heroin a few hours prior to arrival at the hospital and last thing she remembers was sitting at a bus stop. Patient lost consciousness a nd was brought to the hospital. Patient was given IV narcan in the emergency department. She had alcohol earlier that evening as well. Patient had recently been discharged from [facility] for management of COPD and polysubstane abuse. Upon this admission, patient had alcohol level of 133 and was started on librium 5 mg PO Q8PRN which was switched to scheduled the following day. CIWA protocol was initiated. Cessation counseling was given. Patient was started on folic acid, thiamine, and multivitamin. Patient had CIWA score of 3 on the first day and today CIWA was 0. Patient has history of COPD and was started on duonebs 3 Q4 and given nasal cannula oxygen. Patient had a leukocytosis likely 2/2 to recent steroid use from recent hospital visit. Patient was given ibuprofen was headache and pain. Blood culture, urine culture, and procalcitonin were unremarkable. High dose sliding scale insulin was given for hyperglycemia. Patient complained of chest pain yesterday. ACS was ruled out with subsequent EKG showing NSR and two negative troponins. BNP was unremarkable. UDS was positive for opiates and benzodiazepines. Patient was counseled regarding the dangers of recreational drug overdose. Patient was deemed stable and ready for discharge today. Patient was told to follow up with Dr. Mendoza on June 11 at 1:00PM. Patient was told to take all medications as prescribed. Patient recently re ceived oral steroids on prior admission few days prior to this current admission. Patient was told to continue to take the steroid medication as instructed. Patient was told to stop smoking, alcohol, and recreational drug use due to worsening of health from these habits. Patient was told to return to the emergency department if she have any new or concerning symptoms. This is a brief summary of the events that transpired at the hospital. For more details, refer to medical documentation. - Date & Time of H&P Date of H&P: 06/08/18 Time of H&P: 13:51 Discharge Exam - Head Exam Head Exam: ATRAUMATIC, NORMAL INSPECTION, NORMOCEPHALIC - Eye Exam Eye Exam: EOMI, PERRL - Respiratory Exam Respiratory Exam: Wheezes (much improved), NORMAL BREATHING PATTERN - Cardiovascular Exam Cardiovascular Exam: REGULAR RHYTHM, RRR - GI/Abdominal Exam GI & Abdominal Exam: Normal Bowel Sounds, Soft. absent: Tenderness - Extremities Exam Extremities exam: full ROM - Neurological Exam Neurological exam: Alert, CN II-XII Intact, Normal Gait, Oriented x3 - Psychiatric Exam Psychiatric exam: Normal Affect, Normal Mood - Skin Skin Exam: Dry, Intact, Normal Color Discharge Plan - Discharge Medications Prescriptions: RX: Albuterol HFA [Ventolin HFA 90 mcg/actuation (8 g)] 1 puff IH Q6H 30 Days #1 inhaler Budesonide/Formoterol Fumarate [Symbicort] 1 aer IH Q12H 30 Days #1 inhaler guaiFENesin [Robitussin] 100 mg PO Q6H PRN 15 Days #60 dose PRN Reason: Cough - Follow Up Plan Condition: GOOD Disposition: HOME/ ROUTINE Instructions: Chronic Obstructive Pulmonary Disease (COPD), Including Emphysema, Drug Abuse and Drug Addiction (DC) Additional Instructions: Please follow up with Dr. Mendoza on June 11 at 1:00PM . Please take all medications as prescribed. You have recently received oral steroids on prior admission few days prior to this current admission. Please continue to take the steroid medication as instructed. Please stop smoking, alcohol, and recreational drug use due to worsening of health from these habits. Please return to the emergency department if you have any new or concerning symptoms. Referrals: Winnie Mendoza MD [Staff Provider] - <Soo Cardona - Last Filed: 06/09/18 11:03> Provider - Provider Date of Admission: 06/06/18 20:11 Attending physician: Soo Cardona MD Primary care physician: NO PRIMARY CARE PROVIDER Consults: 06/06/18 23:20 Social Work Referral Routine Comment: met criteria Physician Instructions: Reason For Exam: met criteria Hospital Course - Lab Results Lab Results: Micro Results 06/06/18 19:00 Blood Blood Culture - Preliminary NO GROWTH AFTER 48 HOURS 06/06/18 18:45 Blood Blood Culture - Preliminary NO GROWTH AFTER 48 HOURS 06/06/18 23:55 Urine Random Urine Culture - Final No Growth (<1,000 CFU/ML) Most Recent Lab Values WBC 12.5 10^3/uL (4.5-11.0) H 06/08/18 07:15 RBC 4.36 10^6/uL (3.5-6.1) 06/08/18 07:15 Hgb 13.8 g/dL (12.0-16.0) 06/08/18 07:15 Hct 43.8 % (36.0-48.0) 06/08/18 07:15 MCV 100.5 fl (80.0-105.0) 06/08/18 07:15 MCH 31.7 pg (25.0-35.0) 06/08/18 07:15 MCHC 31.5 g/dl (31.0-37.0) 06/08/18 07:15 RDW 14.8 % (11.5-14.5) H 06/08/18 07:15 Plt Count 255 10^3/uL (120.0-450.0) 06/08/18 07:15 MPV 10.3 fl (7.0-11.0) 06/08/18 07:15 Neut % (Auto) 64.9 % (50.0-68.0) 06/08/18 07:15 Lymph % (Auto) 25.7 % (22.0-35.0) 06/08/18 07:15 Grant % (Auto) 8.1 % (1.0-6.0) H 06/08/18 07:15 Eos % (Auto) 1.2 % (1.5-5.0) L 06/08/18 07:15 Baso % (Auto) 0.1 % (0.0-3.0) 06/08/18 07:15 Lymph # (Auto) 3.2 (1.2-3.4) 06/08/18 07:15 Grant # (Auto) 1.0 (0.1-0.6) H 06/08/18 07:15 Eos # (Auto) 0.2 (0.0-0.7) 06/08/18 07:15 Baso # (Auto) 0.01 K/mm3 (0.0-2.0) 06/08/18 07:15 Absolute Neuts (auto) 8.09 (1.4-6.5) H 06/08/18 07:15 pCO2 59 mm/Hg (35-45) H 06/06/18 20:40 pO2 35 mm/Hg (30-55) 06/07/18 03:04 HCO3 27.7 mmol/L (21-28) 06/06/18 20:40 ABG pH 7.28 (7.35-7.45) L 06/06/18 20:40 ABG Total CO2 29.5 mmol.L (22-28) H 06/06/18 20:40 ABG O2 Saturation 95.3 % (95-98) 06/06/18 20:40 ABG O2 Content 19.4 ML/dl (15-23) 06/06/18 20:40 ABG Base Excess -0.5 mmol/L (-2.0-3.0) 06/06/18 20:40 ABG Hemoglobin 15.4 g/dL (11.7-17.4) 06/06/18 20:40 ABG Carboxyhemoglobin 4.8 % (0.5-1.5) H 06/06/18 20:40 POC ABG HHb (Measured) 4.4 % (0-5) 06/06/18 20:40 ABG Methemoglobin 1.0 % (0.0-3.0) 06/06/18 20:40 ABG O2 Capacity 20.4 mL/dl (16-24) 06/06/18 20:40 VBG pH 7.25 (7.32-7.43) L 06/07/18 03:04 VBG pCO2 81.0 (40-60) H* 06/07/18 03:04 VBG HCO3 35.5 mmol/l (21-28) H 06/07/18 03:04 VBG Total CO2 38.0 mmol.L (22-28) H 06/07/18 03:04 VBG O2 Sat (Calc) 63.1 % (40-65) 06/07/18 03:04 VBG Base Excess 5.4 mmol/L (0.0-2.0) H 06/07/18 03:04 VBG Potassium 5.2 mmol/L (3.6-5.2) 06/07/18 03:04 Hgb O2 Saturation 89.8 % (95.0-98.0) L 06/06/18 20:40 Sodium 140.0 mmol/L (132-148) 06/07/18 03:04 Chloride 100.0 mmol/L (98-107) 06/07/18 03:04 Glucose 132 mg/dl (65-105) H 06/07/18 03:04 Lactate 1.7 mmol/L (0.7-2.1) 06/07/18 03:04 FiO2 21.0 % 06/07/18 03:04 Crit Value Called To Maira murry rn 2rno 06/07/18 03:04 Crit Value Called By Shanti 06/07/18 03:04 Blood Gas Notified Time 324 06/07/18 03:04 Sodium 138 mmol/L (132-148) 06/08/18 07:15 Potassium 4.8 mmol/L (3.6-5.0) 06/08/18 07:15 Chloride 101 mmol/L (98-107) 06/08/18 07:15 Carbon Dioxide 38 mmol/L (21-33) H 06/08/18 07:15 Anion Gap 4 (10-20) L 06/08/18 07:15 BUN 16 mg/dL (7-21) 06/08/18 07:15 Creatinine 0.6 mg/dl (0.7-1.2) L 06/08/18 07:15 Est GFR ( Amer) > 60 06/08/18 07:15 Est GFR (Non-Af Amer) > 60 06/08/18 07:15 Random Glucose 85 mg/dL (70-110) 06/08/18 07:15 Calcium 8.1 mg/dL (8.4-10.5) L 06/08/18 07:15 Phosphorus 4.6 mg/dL (2.5-4.5) H 06/07/18 03:04 Magnesium 2.0 mg/dL (1.7-2.2) 06/07/18 03:04 Total Bilirubin 0.5 mg/dL (0.2-1.3) 06/08/18 07:15 AST 44 U/L (14-36) H D 06/08/18 07:15 ALT 37 U/L (7-56) 06/08/18 07:15 Alkaline Phosphatase 53 U/L (38-126) 06/08/18 07:15 Total Creatine Kinase < 20 U/L (35-230) L 06/07/18 09:50 Troponin I < 0.01 ng/mL 06/07/18 15:50 NT-Pro-B Natriuret Pep 65.5 pg/mL (0-450) 06/06/18 18:45 Total Protein 5.8 g/dL (5.8-8.3) 06/08/18 07:15 Albumin 3.1 g/dL (3.0-4.8) 06/08/18 07:15 Globulin 2.7 gm/dL 06/08/18 07:15 Albumin/Globulin Ratio 1.1 (1.1-1.8) 06/08/18 07:15 Lipase 108 U/L (23-300) 06/06/18 18:45 Procalcitonin < 0.05 NG/ML (0.19-0.49) L 06/07/18 16:40 Venous Blood Potassium 5.2 mmol/L (3.6-5.2) 06/07/18 03:04 Urine Color Yellow (YELLOW) 06/06/18 23:55 Urine Appearance Clear (CLEAR) 06/06/18 23:55 Urine pH 5.5 (4.7-8.0) 06/06/18 23:55 Ur Specific [place] >= 1.030 (1.005-1.035) 06/06/18 23:55 Urine Protein Negative mg/dL (<30 mg/dL) 06/06/18 23:55 Urine Glucose (UA) 100 mg/dL (NEGATIVE) H 06/06/18 23:55 Urine Ketones Negative mg/dL (NEGATIVE) 06/06/18 23:55 Urine Blood Trace-intact (NEGATIVE) H 06/06/18 23:55 Urine Nitrate Negative (NEGATIVE) 06/06/18 23:55 Urine Bilirubin Negative (NEGATIVE) 06/06/18 23:55 Urine Urobilinogen 0.2 E.U./dL (<1 E.U./dL) 06/06/18 23:55 Ur Leukocyte Esterase Negative Erik/uL (NEGATIVE) 06/06/18 23:55 Urine RBC 0 - 2 /hpf (0-2) 06/06/18 23:55 Urine WBC 0 - 2 /hpf (0-6) 06/06/18 23:55 Ur Epithelial Cells 3 - 4 /hpf (0-5) 06/06/18 23:55 Uric Acid Crystals Mod /hpf (NONE) 06/06/18 23:55 Urine Bacteria None /hpf (NONE) 06/06/18 23:55 Urine Opiates Screen Positive (NEGATIVE) H 02/20/19 23:55 Urine Methadone Screen Negative (NEGATIVE) 06/06/18 23:55 Ur Barbiturates Screen Negative (NEGATIVE) 06/06/18 23:55 Ur Phencyclidine Scrn Negative (NEGATIVE) 06/06/18 23:55 Ur Amphetamines Screen Negative (NEGATIVE) 06/06/18 23:55 U Benzodiazepines Scrn Positive (NEGATIVE) H 06/06/18 23:55 U Oth Cocaine Metabols Negative (NEGATIVE) 06/06/18 23:55 U Cannabinoids Screen Negative (NEGATIVE) 06/06/18 23:55 Alcohol, Quantitative 133 mg/dL (0-10) H 06/06/18 18:45 Attending/Attestation - Attestation I have personally seen and examined this patient.: Yes I have fully participated in the care of the patient.: Yes I have reviewed all pertinent clinical information, including history, physical exam and plan: Yes Notes (Text): 06/09/18 11:01 Patient was seen and examined with medical imaging technologist. 47 year old female with PMH of COPD, polysubstance abuse, Hepatitis C, Cirrhosis was admitted with drug overdose and impending alcohol withdrawal. Patient was monitored with [place] protocol. There is no sign of alcohol withdrawal at the time of discharge.She is alert,awake and oriented. She is on room air and is not is respiratory distress. Issue of ongoing smoking,alcohol and drug abuse was discussed in detail. The issue of compliance with medication and follow up with [facility] was discussed in detail. Prognosis is guarded due to ongoing alcohol/drug abuse and non compliance.
[2018-06-08 18:32] VITALS: BP 133/90; PULSE 76; RESP 20; TEMP 97.8
== END 2018-06-08 18:54 | disposition home or self-care (01) ==
LOC: ED 18:30 → ERH 20:11 → INTOOBSV 20:11 → ERH 20:50 → 2RNO 21:43
PROVIDERS: ADMIT Internal Medicine; ATTEND Internal Medicine
DX: T40.2X1A Poisoning by other opioids, accidental (unintentional), initial encounter (principal); F11.23 Opioid dependence with withdrawal; J43.9 Emphysema, unspecified; I11.0 Hypertensive heart disease with heart failure; I50.9 Heart failure, unspecified; E87.2 Acidosis; K74.60 Unspecified cirrhosis of liver; B19.20 Unspecified viral hepatitis C without hepatic coma; D72.829 Elevated white blood cell count, unspecified; F10.10 Alcohol abuse, uncomplicated; R09.02 Hypoxemia; Y90.6 Blood alcohol level of 120-199 mg/100 ml; Z59.0 Homelessness; Z91.19 Patient's noncompliance with other medical treatment and regimen
CPT/HCPCS: 36415; 71045; 80053; 80320; 80324; 80345; 80346; 80349; 80353; 80358; 80361; 81001; 82550; 82803; 83690; 83735; 83880; 83992; 84100; 84145; 84484; 85025; 87040; 87086; 93005; 94640; 96374; 99285; G0378; J1650; J2310; J2543; J2930; J7030

== ENCOUNTER 2018-06-19 23:54 | Emergency (ER) | payer MEDICAID ==
[2018-06-19 23:54] VITALS: BMI 32.3
[2018-06-20] MEDS ORDERED: Albuterol-Ipratrop 3 mg / 0.5 (3 ml) UD ONE (00:09)
[2018-06-20] MEDS ORDERED: Albuterol-Ipratrop 3 mg / 0.5 (3 ml) UD IH STA ×2 (00:13→00:21)
--- NOTE | 2018-06-20 00:25 | ED PDOC ---
Arrival/HPI - General Chief Complaint: Respiratory Distress Time Seen by Provider: 06/20/18 00:02 Historian: Patient - History of Present Illness Narrative History of Present Illness (Text): 06/20/18 00:21 Fani Chmabers is a 47 year old female, whose past medical history includes asthma, COPD, polysubstance abuse, Hepatitis C, and cirrhosis, who presents to the ED complaining of shortness of breath and wheezing today. Patient states symptoms are consistent with previous episodes of asthma/COPD. Patient denies any fever, chills, nausea, vomiting, diarrhea, urinary symptoms, back pain, neck pain, headache, dizziness, or any other complaints. Time/Duration: 24 hours Symptom Onset: Gradual Symptom Course: Unchanged Activities at Onset: Light Context: Home Past Medical History - Provider Review Nursing Documentation Reviewed: Yes - Infectious Disease Hx of Infectious Diseases: None - Tetanus Immunization Tetanus Immunization: Unknown - Cardiac Hx Cardiac Disorders: Yes Hx Congestive Heart Failure: Yes Hx Hypertension: Yes - Pulmonary Hx Respiratory Disorders: Yes Hx Asthma: Yes Hx Bronchitis: Yes Hx Chronic Obstructive Pulmonary Disease (COPD): Yes Hx Emphysema: Yes Other/Comment: pneumothorax with chest tube - Neurological Hx Neurological Disorder: No Hx Seizures: No - HEENT Hx HEENT Disorder: No - Renal Hx Renal Disorder: No - Endocrine/Metabolic Hx Endocrine Disorders: No - Hematological/Oncological Hx Blood Disorders: Yes Hx Hepatitis C: Yes - Integumentary Hx Dermatological Disorder: No - Musculoskeletal/Rheumatological Hx Musculoskeletal Disorders: Yes Hx Falls: Yes Hx Fractures: Yes (right ankle, right knnee) - Gastrointestinal Hx Gastrointestinal Disorders: Yes Hx Pancreatitis: No (denies) - Genitourinary/Gynecological Hx Genitourinary Disorders: No Hx Sexually Transmitted Diseases: No - Psychiatric Hx Psychophysiologic Disorder: Yes Hx Anxiety: Yes Hx Depression: Yes Hx Substance Use: Yes Other/Comment: methadone, heorin and alcohol abuse - Surgical History Hx Appendectomy: Yes Other/Comment: tonsillectomy - Anesthesia Hx Anesthesia: Yes Hx Anesthesia Reactions: No Hx Malignant Hyperthermia: No - Suicidal Assessment Feels Threatened In Home Enviroment: No Family/Social History - Physician Review Nursing Documentation Reviewed: Yes Family/Social History: Unknown Family HX Smoking Status: Current Some Days Smoker Hx Alcohol Use: Yes (DRINKS BEER DAILY.40% PROOF,LOCAL 24 OZ BEER CANS .LAST DRANK THIS AM.) Hx Substance Use: Yes Substance used: heroin Hx Substance Use Treatment: Yes Allergies/Home Meds Allergies/Adverse Reactions: Allergies No Known Allergies Allergy (Verified 06/02/18 22:53) Review of Systems - Physician Review All systems were reviewed & negative as marked: Yes - Review of Systems Constitutional: Normal. absent: Fevers Eyes: Normal ENT: Normal Respiratory: SOB, Wheezing Cardiovascular: Normal. absent: Chest Pain, Palpitations Gastrointestinal: Normal. absent: Abdominal Pain, Diarrhea, Nausea, Vomiting Genitourinary Female: Normal. absent: Dysuria, Frequency, Hematuria, Urine Output Changes Musculoskeletal: Normal. absent: Back Pain, Neck Pain Skin: Normal. absent: Rash Neurological: Normal. absent: Headache, Dizziness Endocrine: Normal Hemo/Lymphatic: Normal Psychiatric: Normal Physical Exam Vital Signs Reviewed: Yes Vital Signs Pulse Resp Pulse Ox 06/20/18 00:11 96 H 19 94 L Temperature: Afebrile Blood Pressure: Normal Pulse: Regular Respiratory Rate: Normal Appearance: Positive for: Well-Appearing, Non-Toxic, Comfortable Pain Distress: None Mental Status: Positive for: Alert and Oriented X 3 - Systems Exam Head: Present: Atraumatic, Normocephalic Pupils: Present: PERRL Extroacular Muscles: Present: EOMI Conjunctiva: Present: Normal Ears: Present: Normal Mouth: Present: Moist Mucous Membranes Pharnyx: Present: Normal Neck: Present: Normal Range of Motion Respiratory/Chest: Present: Wheezes (bilateral wheezing ). No: Respiratory Distress, Accessory Muscle Use Cardiovascular: Present: Regular Rate and Rhythm, Normal S1, S2. No: Murmurs Abdomen: No: Tenderness, Distention, Peritoneal Signs Upper Extremity: Present: Normal Inspection. No: Cyanosis, Edema Lower Extremity: Present: Normal Inspection. No: Edema Neurological: Present: GCS=15, CN II-XII Intact, Speech Normal Skin: Present: Warm, Dry, Normal Color. No: Rashes Psychiatric: Present: Alert, Oriented x 3, Normal Insight, Normal Concentration Medical Decision Making ED Course and Treatment: Impression: 47 year old female complaining of shortness of breath and wheezing. Plan: -- Duoneb -- Reassess and disposition Prior Visits: Notes and results from previous visits were reviewed. Progress Notes: - Medication Orders Current Medication Orders: Discontinued Medications Albuterol/Ipratropium (Duoneb 3 Mg/0.5 Mg (3 Ml) Ud) 3 ml IH ONCE STA Stop: 06/20/18 00:14 - Scribe Statement Tricia Jalloh training under Radha Rosales All medical record entries made by the Scribe were at my direction and personally dictated by me. I have reviewed the chart and agree that the record accurately reflects my personal performance of the history, physical exam, medical decision making, and the department course for this patient. I have also personally directed, reviewed, and agree with the discharge instructions and disposition. Disposition/Present on Arrival - Present on Arrival Any Indicators Present on Arrival: No History of DVT/PE: No History of Uncontrolled Diabetes: No Urinary Catheter: No History of Decub. Ulcer: No History Surgical Site Infection Following: None - Disposition Have Diagnosis and Disposition been Completed?: Yes Diagnosis: Asthma Disposition: HOME/ ROUTINE Disposition Time: 07:00 Patient Plan: Discharge Condition: GOOD Discharge Instructions (ExitCare): Asthma, Adult (DC) Additional Instructions: Take meds as prescribed/follow up with your doctor this week Prescriptions: predniSONE [Prednisone] 40 mg PO DAILY #10 tab Albuterol HFA [Ventolin HFA 90 mcg/actuation (8 g)] 2 puff IH [id number] PRN #1 puff PRN Reason: Wheezing Forms: [employer] ([place])
[2018-06-20 00:34] VITALS: RESP 18
[2018-06-20 09:27] VITALS: BP 124/79; O2SAT 95
[2018-06-20 10:12] VITALS: PULSE 88
== END 2018-06-20 07:00 | disposition home or self-care (01) ==
LOC: ED 23:54
DX: J45.909 Unspecified asthma, uncomplicated (principal); F17.210 Nicotine dependence, cigarettes, uncomplicated

== ENCOUNTER 2018-07-16 00:04 | Emergency (ER) | payer MEDICAID ==
[2018-07-16 00:09] VITALS: BMI 24.7
[2018-07-16] MEDS: Albuterol-Ipratrop 3 mg / 0.5 (3 ml) UD IH SCH ×3 (00:43→01:10)
[2018-07-16 01:27] LABS: BASO # 0.05 K/mm3 (0.0-2.0); BASO % 0.7 % (0.0-3.0); EOS # 0.2 (0.0-0.7); EOS % 2.5 % (1.5-5.0); LYMPH # 3.4 (1.2-3.4); MEAN CORPUSCULAR HEMOGLOBIN 32.8 pg (25.0-35.0); MEAN PLATELET VOLUME 10.4 fl (7.0-11.0); MONO # 0.6 (0.1-0.6); MONO % 7.5 % (1.0-6.0); RBC 4.85 10^6/uL (3.5-6.1); RED CELL DISTRIBUTION WIDTH 15.3 % (11.5-14.5); WHITE BLOOD COUNT 7.5 10^3/uL (4.5-11.0)
[2018-07-16 01:32] LABS: HEMOGLOBIN 15.9 g/dL (12.0-16.0); MEAN CELL VOLUME 96.5 fl (80.0-105.0)
--- NOTE | 2018-07-16 01:42 | ED PDOC ---
Arrival/HPI - History of Present Illness Narrative History of Present Illness (Text): 07/16/18 01:55 47 y/o female with PMH of substance abuse, alcohol abuse, COPD, asthma presents to the ED c/o SOB that began 20 minutes [employer]. Associated wheezing and chest tightness similar to previous asthma/COPD exacerbations. Associated worsening cough over the last few days. Denies drug use today but admits to drinking 4 beers. Pt is well known to ED and has had multiple visits for similar complaints. Noncompliant with medication. Denies fever, chills, nausea, vomiting, abdominal pain, palpitations, diaphoresis, urinary symptoms, back pain, chest pain, or any other associated symptoms. <Fabiola Babin - Last Filed: 07/16/18 01:33> <Isaías Gilmore - Last Filed: 07/16/18 02:35> - General Chief Complaint: Shortness Of Breath Time Seen by Provider: 07/16/18 00:16 Past Medical History - Infectious Disease Hx of Infectious Diseases: None - Tetanus Immunization Tetanus Immunization: Unknown - Cardiac Hx Cardiac Disorders: Yes Hx Congestive Heart Failure: Yes Hx Hypertension: Yes - Pulmonary Hx Respiratory Disorders: Yes Hx Asthma: Yes Hx Bronchitis: Yes Hx Chronic Obstructive Pulmonary Disease (COPD): Yes Hx Emphysema: Yes Other/Comment: pneumothorax with chest tube - Neurological Hx Neurological Disorder: No Hx Seizures: No - HEENT Hx HEENT Disorder: No - Renal Hx Renal Disorder: No - Endocrine/Metabolic Hx Endocrine Disorders: No - Hematological/Oncological Hx Blood Disorders: Yes Hx Hepatitis C: Yes - Integumentary Hx Dermatological Disorder: No - Musculoskeletal/Rheumatological Hx Musculoskeletal Disorders: Yes Hx Falls: Yes Hx Fractures: Yes (right ankle, right knnee) - Gastrointestinal Hx Gastrointestinal Disorders: Yes Hx Pancreatitis: No (denies) - Genitourinary/Gynecological Hx Genitourinary Disorders: No Hx Sexually Transmitted Diseases: No - Psychiatric Hx Psychophysiologic Disorder: Yes Hx Anxiety: Yes Hx Depression: Yes Hx Substance Use: Yes Other/Comment: methadone, heorin and alcohol abuse - Surgical History Hx Appendectomy: Yes Other/Comment: tonsillectomy - Anesthesia Hx Anesthesia: Yes Hx Anesthesia Reactions: No Hx Malignant Hyperthermia: No - Suicidal Assessment Feels Threatened In Home Enviroment: No <Fabiola Babin - Last Filed: 07/16/18 01:33> Family/Social History Smoking Status: Current Some Days Smoker Hx Alcohol Use: Yes (DRINKS BEER DAILY.40% PROOF,LOCAL 24 OZ BEER CANS .LAST DRANK THIS AM.) Hx Substance Use: Yes Substance used: heroin Hx Substance Use Treatment: Yes <TalyaFabiola - Last Filed: 07/16/18 01:33> Family/Social History: No Known Family HX <Isaías Gilmore - Last Filed: 07/16/18 02:35> Allergies/Home Meds <Fabiola Babin - Last Filed: 07/16/18 01:33> <Isaías Gilmore - Last Filed: 07/16/18 02:35> Allergies/Adverse Reactions: Allergies No Known Allergies Allergy (Verified 06/02/18 22:53) Physical Exam - Systems Exam Head: Present: Atraumatic, Normocephalic Pupils: Present: PERRL Extroacular Muscles: Present: EOMI Conjunctiva: Present: Normal Mouth: Present: Moist Mucous Membranes Neck: Present: Normal Range of Motion Respiratory/Chest: Present: Clear to Auscultation, Good Air Exchange. No: Respiratory Distress, Accessory Muscle Use Cardiovascular: Present: Regular Rate and Rhythm, Normal S1, S2. No: Murmurs Abdomen: No: Tenderness, Distention, Peritoneal Signs Back: Present: Normal Inspection Upper Extremity: Present: Normal Inspection. No: Cyanosis, Edema Lower Extremity: Present: Normal Inspection. No: Edema Neurological: Present: GCS=15, CN II-XII Intact, Speech Normal Skin: Present: Warm, Dry, Normal Color. No: Rashes Psychiatric: Present: Alert, Oriented x 3, Normal Insight, Normal Concentration <Fabiola Babin - Last Filed: 07/16/18 01:33> Vital Signs Temp Pulse Resp BP Pulse Ox 07/16/18 01:53 98.0 F 102 H 21 107/61 97 07/16/18 00:24 23 97 <Isaías Gilmore - Last Filed: 07/16/18 02:35> Medical Decision Making ED Course and Treatment: Initial Plan: * CBC, CMP * Coags * Troponin * CXR * EKG * Solumedrol * Duonebs EKG shows sinus tachycardia without acute ischemic change CBC reviewed, no leukocytosis 0200 Patient care signed out to ED attending Dr. Gilmore pending chemistry, CXR, reassessment and disposition. Pt made aware of change in disposition. Resting comfortably in stretcher in no acute respiratory distress at this time - Lab Interpretations Lab Results: 07/16/18 00:40 Lab Results 07/16/18 00:40: WBC 7.5 D, RBC 4.85, Hgb 15.9 D, Hct 46.8, MCV 96.5 D, MCH 32.8, MCHC 34.0, RDW 15.3 H, Plt Count 363, MPV 10.4, Neut % (Auto) 44.3 L, Lymph % (Auto) 45.0 H, Edmunds % (Auto) 7.5 H, Eos % (Auto) 2.5, Baso % (Auto) 0.7, Lymph # (Auto) 3.4, Edmunds # (Auto) 0.6, Eos # (Auto) 0.2, Baso # (Auto) 0.05, Absolute Neuts (auto) 3.32 - RAD Interpretation Radiology Orders: 07/16/18 00:23 CHEST PORTABLE [RAD] Stat - EKG Interpretation EKG Interpretation (Text): 07/16/18 01:53 Rate 103; Sinus tachycardia; Normal intervals; No STEMI, nonspecific ST/T wave changes Interpreted by ED Physician: Yes - Medication Orders Current Medication Orders: Discontinued Medications Albuterol/Ipratropium (Duoneb 3 Mg/0.5 Mg (3 Ml) Ud) 3 ml IH Q15M JACK Stop: 07/16/18 01:01 Last Admin: 07/16/18 00:44 Dose: 3 ml Methylprednisolone (Solu-Medrol) 125 mg IVP STAT STA Stop: 07/16/18 00:24 Last Admin: 07/16/18 00:44 Dose: 125 mg IVP Administration Document 07/16/18 00:44 EB (Rec: 07/16/18 00:44 EB [facility] [id number]) Charges for Administration # of IVP Administrations 1 <Fabiola Babin - Last Filed: 07/16/18 01:33> ED Course and Treatment: 07/16/18 02:33 CXR no consolidation. Patient in no distress. Discharged home, f/u PMD, return to ED for worsening symptoms. - Lab Interpretations Lab Results: Total Bilirubin 0.4 mg/dL (0.2-1.3) 04/01/19 01:45 AST 55 U/L (14-36) H D 07/16/18 01:45 ALT 53 U/L (7-56) 07/16/18 01:45 Alkaline Phosphatase 83 U/L (38-126) 07/16/18 01:45 Total Protein 6.4 g/dL (5.8-8.3) 07/16/18 01:45 Albumin 3.1 g/dL (3.0-4.8) 07/16/18 01:45 Globulin 3.2 gm/dL 07/16/18 01:45 Albumin/Globulin Ratio 1.0 (1.1-1.8) L 07/16/18 01:45 - RAD Interpretation Radiology Orders: 07/16/18 00:23 CHEST PORTABLE [RAD] Stat - Medication Orders Current Medication Orders: Discontinued Medications Albuterol/Ipratropium (Duoneb 3 Mg/0.5 Mg (3 Ml) Ud) 3 ml IH Q15M JACK Stop: 07/16/18 01:01 Last Admin: 07/16/18 01:10 Dose: 3 ml Levalbuterol HCl (Xopenex) 1.25 mg IH STAT STA Stop: 07/16/18 01:56 Last Admin: 07/16/18 02:09 Dose: 1.25 mg Methylprednisolone (Solu-Medrol) 125 mg IVP STAT STA Stop: 07/16/18 00:24 Last Admin: 07/16/18 00:44 Dose: 125 mg IVP Administration Document 07/16/18 00:44 EB (Rec: 07/16/18 00:44 EB [facility] [id number]) Charges for Administration # of IVP Administrations 1 <Isaías Gilmore - Last Filed: 07/16/18 02:35> Disposition/Present on Arrival - Present on Arrival History of DVT/PE: No History of Uncontrolled Diabetes: No Urinary Catheter: No History of Decub. Ulcer: No History Surgical Site Infection Following: None <Fabiola Babin - Last Filed: 07/16/18 01:33> - Present on Arrival Any Indicators Present on Arrival: No - Disposition Have Diagnosis and Disposition been Completed?: Yes Disposition Time: 02:34 Patient Plan: Discharge <Isaías Gilmore - Last Filed: 07/16/18 02:35> - Disposition Diagnosis: Asthma attack Disposition: HOME/ ROUTINE Patient Problems: Current Active Problems Problem Status Onset Asthma attack Acute Condition: GOOD Discharge Instructions (ExitCare): Asthma Action Plan Prescriptions: Albuterol 0.083% [Albuterol Sulfate 3 Ml] 3 ml IH Q4 #150 neb Albuterol HFA [Ventolin HFA 90 mcg/actuation (8 g)] 2 puff IH Q6 #1 inhaler Prednisone [Deltasone] 3 tab PO DAILY #12 tablet Forms: [employer] ([place])
[2018-07-16 01:53] VITALS: PULSE 102; TEMP 98; O2SAT 97
[2018-07-16] MEDS ORDERED: Levalbuterol 1.25 MG/3 ML Inhal Soln UD IH STA (01:55)
[2018-07-16 02:23] LABS: ALBUMIN 3.1 g/dL (3.0-4.8); ALT/SGPT 53 U/L (7-56); AST/SGOT 55 U/L (14-36); BLOOD UREA NITROGEN 4 mg/dL (7-21); CALCIUM 8.3 mg/dL (8.4-10.5); GFR NON-AFRICAN AMERICAN > 60
[2018-07-16 02:33] LABS: TROPONIN I < 0.01 ng/mL
[2018-07-16 02:40] VITALS: RESP 19
[2018-07-16 03:06] VITALS: BP 107/64
--- NOTE | 2018-07-16 09:15 | CARD ---
APPROVED REPORT Date of service: 07/16/2018 EKG Measurement Heart [id number] <Conclusion> Sinus tachycardia Otherwise normal ECG
--- NOTE | 2018-07-16 09:20 | RAD ---
Date of service: 07/16/2018 HISTORY: SOB COMPARISON: 06/07/2018 TECHNIQUE: 1 view obtained. FINDINGS: LUNGS: No active pulmonary disease. PLEURA: No significant pleural effusion identified, no pneumothorax apparent. CARDIOVASCULAR: No aortic atherosclerotic calcification present. Normal cardiac size. No pulmonary vascular congestion. OSSEOUS STRUCTURES: No significant abnormalities. VISUALIZED UPPER ABDOMEN: Normal. OTHER FINDINGS: None. IMPRESSION: No active disease.
== END 2018-07-16 03:07 | disposition home or self-care (01) ==
LOC: ED 00:04
DX: J45.909 Unspecified asthma, uncomplicated (principal); I11.0 Hypertensive heart disease with heart failure; I50.9 Heart failure, unspecified; Z91.14 Patient's other noncompliance with medication regimen; F17.210 Nicotine dependence, cigarettes, uncomplicated
CPT/HCPCS: 71045; 80053; 81025; 83735; 84100; 84484; 85025; 93005; 96374; 99283; J2930

== ENCOUNTER 2018-07-27 00:22 | Emergency (ER) | payer MEDICAID ==
[2018-07-27 00:22] VITALS: BMI 24.7
[2018-07-27 00:41] VITALS: BP 107/67; PULSE 95; RESP 18; TEMP 97.5; O2SAT 97
[2018-07-27] MEDS ORDERED: Albuterol-Ipratrop 3 mg / 0.5 (3 ml) UD ONE (00:46)
[2018-07-27] MEDS ORDERED: Albuterol-Ipratrop 3 mg / 0.5 (3 ml) UD IH STA (01:13)
--- NOTE | 2018-07-27 01:32 | ED PDOC ---
Arrival/HPI - General Chief Complaint: Shortness Of Breath Time Seen by Provider: 07/27/18 01:04 Historian: Patient - History of Present Illness Narrative History of Present Illness (Text): 07/27/18 01:29 47 year old female, whose past medical history includes asthma, COPD, polysubstance abuse, Hepatitis C, and cirrhosis, presents to the emergency department complaining of wheezing 5 minutes prior to arrival. Patient reportedl y states her last steroids was 2 months ago. Patient denies any fever, chills, chest pain, nausea, vomiting, diarrhea, urinary symptoms, back pain, neck pain, headache, dizziness, or any other complaints. Time/Duration: Prior to Arrival Symptom Onset: Sudden Activities at Onset: Light Past Medical History - Provider Review Nursing Documentation Reviewed: Yes - Infectious Disease Hx of Infectious Diseases: None - Tetanus Immunization Tetanus Immunization: Unknown - Cardiac Hx Cardiac Disorders: Yes Hx Congestive Heart Failure: Yes Hx Hypertension: Yes - Pulmonary Hx Respiratory Disorders: Yes Hx Asthma: Yes Hx Bronchitis: Yes Hx Chronic Obstructive Pulmonary Disease (COPD): Yes Hx Emphysema: Yes Other/Comment: pneumothorax with chest tube - Neurological Hx Neurological Disorder: No Hx Seizures: No - HEENT Hx HEENT Disorder: No - Renal Hx Renal Disorder: No - Endocrine/Metabolic Hx Endocrine Disorders: No - Hematological/Oncological Hx Blood Disorders: Yes Hx Hepatitis C: Yes - Integumentary Hx Dermatological Disorder: No - Musculoskeletal/Rheumatological Hx Musculoskeletal Disorders: Yes Hx Falls: Yes Hx Fractures: Yes (right ankle, right knnee) - Gastrointestinal Hx Gastrointestinal Disorders: Yes Hx Pancreatitis: No (denies) - Genitourinary/Gynecological Hx Genitourinary Disorders: No Hx Sexually Transmitted Diseases: No - Psychiatric Hx Psychophysiologic Disorder: Yes Hx Anxiety: Yes Hx Depression: Yes Hx Substance Use: Yes Other/Comment: methadone, heorin and alcohol abuse - Surgical History Hx Appendectomy: Yes Other/Comment: tonsillectomy - Anesthesia Hx Anesthesia: Yes Hx Anesthesia Reactions: No Hx Malignant Hyperthermia: No - Suicidal Assessment Feels Threatened In Home Enviroment: No Family/Social History - Physician Review Nursing Documentation Reviewed: Yes Family/Social History: No Known Family HX Smoking Status: Heavy Smoker > 10 Cigarettes Daily Hx Alcohol Use: Yes (DRINKS BEER DAILY.40% PROOF,LOCAL 24 OZ BEER CANS .LAST DRANK THIS AM.) Frequency of alcohol use: Daily Hx Substance Use: Yes Substance used: heroin Hx Substance Use Treatment: Yes Allergies/Home Meds Allergies/Adverse Reactions: Allergies No Known Allergies Allergy (Verified 06/02/18 22:53) Review of Systems - Physician Review All systems were reviewed & negative as marked: Yes - Review of Systems Constitutional: absent: Fevers, Other (chills) Respiratory: Wheezing Cardiovascular: absent: Chest Pain Gastrointestinal: absent: Diarrhea, Nausea, Vomiting Genitourinary Female: absent: Dysuria, Frequency, Hematuria Musculoskeletal: absent: Back Pain, Neck Pain Neurological: absent: Headache, Dizziness Physical Exam Vital Signs Reviewed: Yes Vital Signs Temp Pulse Resp BP Pulse Ox 07/27/18 01:09 18 97 07/27/18 00:38 97.5 F L 95 H 18 107/67 97 Temperature: Afebrile Blood Pressure: Normal Pulse: Regular Respiratory Rate: Normal Appearance: Positive for: Well-Appearing, Non-Toxic, Comfortable Pain Distress: None Mental Status: Positive for: Alert and Oriented X 3 - Systems Exam Head: Present: Atraumatic, Normocephalic Pupils: Present: PERRL Extroacular Muscles: Present: EOMI Conjunctiva: Present: Normal Mouth: Present: Moist Mucous Membranes Neck: Present: Normal Range of Motion Respiratory/Chest: Present: Good Air Exchange, Wheezes (mild expiratory wheeze). No: Respiratory Distress, Accessory Muscle Use Cardiovascular: Present: Regular Rate and Rhythm, Normal S1, S2. No: Murmurs Abdomen: No: Tenderness, Distention, Peritoneal Signs Back: Present: Normal Inspection Upper Extremity: Present: Normal Inspection. No: Cyanosis, Edema Lower Extremity: Present: Normal Inspection. No: Edema Neurological: Present: GCS=15, Speech Normal Skin: Present: Warm, Dry, Normal Color. No: Rashes Psychiatric: Present: Alert, Oriented x 3 Medical Decision Making ED Course and Treatment: 07/27/18 01:14 Impression: 47 year old female presents complaining of wheezing 5 minutes prior to arrival. Plan: -- Douneb, Prednisone Tab -- Reassess and disposition Prior Visits: Notes and results from previous visits were reviewed. Progress Notes: 07/27/18 01:55 On re-evaluation, patient feels better and is in no acute distress. I have discussed the plan with the patient, who expresses understanding. Patient in agreement with plan to be discharged home. Patient is stable for discharge. Patient was instructed to follow up with physician or return if symptoms worsen or new concerning symptoms arise. - Medication Orders Current Medication Orders: Discontinued Medications Albuterol/Ipratropium (Duoneb 3 Mg/0.5 Mg (3 Ml) Ud) 3 ml IH STAT STA Stop: 07/27/18 01:14 Last Admin: 07/27/18 01:28 Dose: 3 ml Prednisone (Prednisone Tab) 60 mg PO STAT ONE Stop: 07/27/18 01:15 Last Admin: 07/27/18 01:28 Dose: 60 mg - Scribe Statement The provider has reviewed the documentation as recorded by the Jc Reddy Provider Scribe Attestation: All medical record entries made by the Scribe were at my direction and personally dictated by me. I have reviewed the chart and agree that the record accurately reflects my personal performance of the history, physical exam, medical decision making, and the department course for this patient. I have also personally directed, reviewed, and agree with the discharge instructions and disposition. Disposition/Present on Arrival - Present on Arrival Any Indicators Present on Arrival: No History of DVT/PE: No History of Uncontrolled Diabetes: No Urinary Catheter: No History of Decub. Ulcer: No History Surgical Site Infection Following: None - Disposition Have Diagnosis and Disposition been Completed?: Yes Diagnosis: Asthma exacerbation Disposition: HOME/ ROUTINE Disposition Time: :56 Patient Plan: Discharge Condition: IMPROVED Discharge Instructions (ExitCare): Asthma, Adult (DC) Additional Instructions: NAYAN WARD, thank you for letting us take care of you today. Your provider was Teetee Dickey MD and you were treated for ASTHMA. The emergency medical care you received today was directed at your acute symptoms. If you were prescribed any medication, please fill it and take as directed. It may take several days for your symptoms to resolve. Return to the Emergency Department if your symptoms worsen, do not improve, or if you have any other problems. Please call one of the physicians/clinics you have been referred to that are listed on the Patient Visit Information form that is included in your discharge packet. Bring any paperwork you were given at discharge with you along with any medications you are taking to your follow up visit. Our treatment cannot replace ongoing medical care by a primary care provider outside of the emergency department. Thank you for allowing the [facility] team to be part of your care today. Prescriptions: predniSONE [Prednisone] 40 mg PO DAILY #10 tab Referrals: Mariam Galvez MD [Medical Doctor] - Follow up with primary [facility] [Outside] - Follow up with primary [facility] - Follow up with primary Forms: [employer] ([place])
== END 2018-07-27 02:10 | disposition home or self-care (01) ==
LOC: ED 00:22
DX: J45.901 Unspecified asthma with (acute) exacerbation (principal); F17.210 Nicotine dependence, cigarettes, uncomplicated